=== PATIENT | male | born 1940 | race African-American/Black ===

== ENCOUNTER 2016-04-10 10:08 | Inpatient (IN) | payer OTHER, BC ==
[2016-04-10 10:45] VITALS: BMI 31.7
--- NOTE | 2016-04-10 11:27 | PDOC ---
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 He reports itching of the wound and active discharge with foul smell he denies any pain to the wound or surrounding area. Patient was seen by Dr. Boateng for the abscess yesterday that was drained, but no I&D was performed. Patient was placed on Bactrim as of yesterday by Dr. Baoteng and was referred to a wound clinic. Patient presented to the wound clinic today and was referred to the ED because the wound was too deep. As per brother the patient had this abscess two years ago that was initially drained by Dr. Boateng and he has not followed up since. He notes that the wound has increased significantly in size over the past two years. His brother is visiting from [place] and noticed a foul smell in the house and realized that the smell was from the actively draining wound on patient's upper back. He denies fever, chills, nausea, vomiting, neck pain, numbness/tingling/ weakness. PCP - Dr. Boateng <Mayra Hedrick - Last Filed: 04/10/16 15:23> <Orestes Lora - Last Filed: 04/10/16 17:31> - General Chief Complaint: Wound Infection Stated Complaint: (WOUND CARE SENT) Time Seen by Provider: 04/10/16 11:09 Past History <Mayra Hedrick - Last Filed: 04/10/16 15:23> - Past Medical History Anemia: No Asthma: No Cancer: No Cardiac Disorders: No CVA: No COPD: No CHF: Yes Dementia: No Diabetes: Yes (NIDDM) Disorders: Yes (CHRONIC KIDNEY DISEASE) HTN: Yes Hypercholesterolemia: Yes Suicide Attempt (Hx): No Seizures: No Thyroid Disease: No - Psycho/Social/Smoking Cessation Hx Anxiety: No Suicidal Ideation: No Smoking History: Never smoked Have you smoked in the past 12 months: No Hx Alcohol Use: No Drug/Substance Use Hx: No Substance Use Type: None Hx Substance Use Treatment: No <GenoOrestes alston - Last Filed: 04/10/16 17:31> - Past Medical History Allergies/Adverse Reactions: Allergies Allergy/AdvReac Type Severity Reaction Status Date / Time No Known Allergies Allergy Verified 04/10/16 11:57 Home Medications: Ambulatory Orders Unobtainable [Unobtainable] 04/10/16 Review of Systems - Review of Systems Able to Perform ROS?: Yes Comments:: 04/10/16 15:23 CONSTITUTIONAL: No reported: Fever, Chills, Diaphoresis, Generalized Weakness, Malaise, Loss of Appetite HEENT: No reported: Rhinorrhea, Nasal Congestion, Throat Pain, Throat Swelling, Difficulty Swallowing, Mouth Swelling, Ear Pain, Eye Pain, Visual Changes CARDIOVASCULAR: No reported: Chest Pain, Syncope, Palpitations, Irregular Heart Rate, Lightheadedness, Peripheral Edema RESPIRATORY: No reported: Cough, Shortness of Breath, SOB with Exertion, Orthopnea, Wheezing , Stridor, Hemoptysis GASTROINTESTINAL: No reported: Abdominal pain, Abdominal Distension, Nausea, Vomiting, Diarrhea, Constipation, Melena, Hematochezia GENITOURINARY: No reported: Dysuria, Frequency, Urgency, Hesitancy, Flank Pain, Genital Pain MUSCULOSKELETAL: No reported: Myalgia, Arthralgia, Joint Swelling, Back pain, Neck Pain SKIN: Reported: abscess to left upper back with itching, foul smelling discharge No reported: Rash, Pallor HEMATOLOGIC/IMMUNOLOGIC: No reported: Easy Bleeding, Easy Bruising, Lymphadenopathy, Frequent infections ENDOCRINE: No reported: Unexplained Weight Gain, Unexplained Weight Loss, Heat Intolerance , Cold Intolerance NEUROLOGIC: No reported: Headache, Focal Weakness, Paresthesias, Vertigo, Lightheadedness, Unsteady Gait, Seizure, Mental Status Changes, Incontinence PSYCHIATRIC: No reported: Anxiety, Depression <Mayra Hedrick - Last Filed: 04/10/16 15:23> *Physical Exam - Vital Signs Last Vital Signs Temp Pulse Resp BP Pulse Ox 98.1 F 74 19 105/47 99 04/10/16 10:40 04/10/16 10:40 04/10/16 10:40 04/10/16 10:40 04/10/16 10:40 - Physical Exam Comments: 04/10/16 15:24 GENERAL: The patient is awake, alert, and fully oriented, Nontoxic - in no acute distress. HEAD: Normocephalic, atraumatic. EYES: extraocular movements intact, sclera anicteric, conjunctiva clear. ENT: Normal voice, Moist mucous membranes. NECK: Normal range of motion, No JVD LUNGS: Breath sounds equal, clear to auscultation bilaterally. No wheezes, no rhonchi, no rales. HEART: Regular rate and rhythm, normal S1 and S2 without murmur, rub or gallop. ABDOMEN: Soft, nontender, normoactive bowel sounds. No guarding, no rebound. No masses. No CVA tenderness EXTREMITIES: Normal range of motion, no edema. No clubbing or cyanosis. No cords , erythema, or tenderness. NEUROLOGICAL: No facial asymmetry, Normal speech, normal gait. PSYCH: Normal mood, normal affect. SKIN: Irregularly shaped, Firm inundated mass on left upper back, Measuring 17x20 cm with irregular margins, +skin breakdown over mass with some areas of necrosis, non tender to palption, slightly warm to palpation. mild surrounding erythema. Warm, Dry, normal turgor <Mayra Hedrick - Last Filed: 04/10/16 15:23> - Vital Signs Last Vital Signs Temp Pulse Resp BP Pulse Ox 98.1 F 74 19 105/47 99 04/10/16 10:40 04/10/16 10:40 04/10/16 10:40 04/10/16 10:40 04/10/16 10:40 <Orestes Lora - Last Filed: 04/10/16 17:31> Heart Score/ECG Review - ECG Impressions Comment:: 04/10/16 13:52 Twelve-lead EKG was performed and reviewed by me. There is normal sinus rhythm with a normal rate. Rate of 63 PVCs present Nonspecific intraventricular conduction delay T wave inversions in the lateral leads <Orestes Lora - Last Filed: 04/10/16 17:31> ED Treatment Course - LABORATORY CBC & Chemistry Diagram: 04/10/16 11:50 04/10/16 11:50 - ADDITIONAL ORDERS Additional order review: Laboratory Results 04/10/16 04/10/16 04/10/16 11:50 11:50 11:50 INR 2.41 H D Sodium 134 L Potassium 5.6 H D Chloride 100 Carbon Dioxide 22 Anion Gap 12 BUN 117 H* D Creatinine 5.1 H D Creat Clearance w eGFR 11.08 Random Glucose 107 H Calcium 9.0 Total Bilirubin 1.4 H D AST 12 L ALT 8 L D Alkaline Phosphatase 104 D Total Protein 6.4 Albumin 2.4 L Blood Type A POSITIVE Antibody Screen Negative 04/10/16 11:50 RBC 2.96 L MCV 88.8 MCHC 32.9 RDW 17.1 H D MPV 8.0 Neutrophils % 81.0 Lymphocytes % 2.0 L D Monocytes % 12.0 H - RADIOLOGY Radiology Studies Ordered: 04/10/16 15:13 EXAM#: CT/CHEST CT WITHOUT CONTRAST CT chest without contrast Comparison studies: April 02, 2006 CLINICAL HISTORY: Mass in left upper back which extends to the proximal upper extremity 3 mm thin axial sections completed with coronal and sagittal reformations, intravenous contrast is not administered. Emphysematous changes noted in the soft tissues posterior to the scapula without communication to the muscle or bursa which appears to be centered in the subcutaneous soft tissues and project lateral and posterior to the region of the axilla without definite involvement of the axilla. There is a large region of inflammatory collection noted which is seen to extend into the upper arm along the path of the musculature suspicious for abscess/inflammatory collection with extensive emphysematous component. Clinical correlation for abscess with gas producing organism. Correlate clinically with skin examination for infected sebaceous cyst or any recent skin procedure in the region. The lungs appear normal with no pneumothorax or pneumomediastinum and no inflammatory changes within the mediastinum or left axilla. This lesion is long extending for a length of at least 18 cm and appears to be superficial. There is no communication to the soft tissues or muscles of the back and no involvement of the upper abdomen posteriorly. The epicenter of the collection is in the region of the proximal arm. Sonogram correlation would BE helpful for localization and for needle guided aspiration for diagnosis and drainage depending on clinical extent. Phlegmonous-type collection is suspected in the subcutaneous fat with fluid matrix demonstrated with Hounsfield density 14 No mediastinal abnormalities with no ascites or acute changes in the upper abdomen with renal cysts observed. Hepatic cyst is seen. Review of the bones with no erosion or bony involvement IMPRESSION: Large phlegmonous collection with gas and fluid extending in the left posterior subcutaneous tissues predominantly along the posterior subcutaneous tissues of the left proximal arm extending superiorly to the posterior soft tissues of the back without extension to the bone, muscle or axilla. No suspicious contributory findings in the lungs or mediastinum identified. No bony involvement of the ribs or scapula seen. Reported By: Tony Vaca MD 04/10/[address] Lora - Medications Given in the ED: ED Medications Discontinued Medications Generic Name Dose Route Start Last Admin Trade Name Freq PRN Reason Stop Dose Admin Clindamycin Phosphate 50 mls @ 100 mls/hr 04/10/16 13:47 04/10/16 14:50 Cleocin 600 Mg Premix Ivpb - IVPB 04/10/16 14:16 100 mls/hr ONCE ONE Administration Torsemide 10 mg 04/10/16 13:15 04/10/16 14:09 Demadex - PO Not Given DAILY SISI <Mayra Hedrick - Last Filed: 04/10/16 15:23> - LABORATORY CBC & Chemistry Diagram: 04/10/16 11:50 04/10/16 11:50 <Orestes Lora - Last Filed: 04/10/16 17:31> Medical Decision Making - Medical Decision Making 04/10/16 11:43 76y M hx of hx of htn, hl, ckd, niddm, aflutter on eliquis send by wound care for evaluation of wound in the upper back x 2 years, was drained with pressure by dr. boateng by PMD and started on bactrim - pt denies any infectious complaints, and states it is more itchy than anything else. on exam pt has a large fluctuant mass on hte Left upper back extending to the inferior aspect of his left arm that is firm, mildly erythemadous with skin breakdown and areas of necrosis over the skin. suspect large abscess, spontnaoeously draining , ?possible malignancy will obtain CT chest to further dilinate margins will discuss with dr. boateng at disposition likely admission A portion of this note was documented by scribe services under my direction. I have reviewed the details of the note, within reason, and agree with the documentation with the following case summary and management plan written by me 04/10/16 13:51 labs rviewed noted for leukoctyosis to 30s acute on chronic renal failure awaiting CT chest case d/w dr. jenkins and dr. boston will start pt on clinda for presumed abscess aree with admission for further management Case discussed in detail with admitting physician including history, physical exam and ancillary studies. Admitting physician has assumed care for the patient, will follow all pending diagnostics and will complete the evaluation and treatment. 04/10/16 17:[address] spears on behalf of dr. boateng requests vanc and zosyn <Orestes Lora - Last Filed: 04/10/16 17:31> *DC/Admit/Observation/Transfer - Attestations Scribe Attestion: 04/10/16 15:24 Documentation prepared by ANDREINA Prince, acting as medical records custodian for Orestes Lora MD. <Mayra Hedrick - Last Filed: 04/10/16 15:23> - Discharge Dispostion Admit: Yes <Orestes Lora - Last Filed: 04/10/16 17:31> Diagnosis at time of Disposition: Abscess, Acute on chronic renal failure Leukocytosis Qualifiers: Leukocytosis type: unspecified Qualified Code(s): D72.829 - Elevated white blood cell count, unspecified - Discharge Dispostion Condition at time of disposition: Stable - Referrals
[2016-04-10 12:00] LABS: MCH 29.2 pg (25.7-33.7); MCHC 32.9 g/dl (32.0-35.9); MEAN CELL VOLUME 88.8 fl (80-96); PLATELET COUNT 200 K/MM3 (134-434); RDW 17.1 % (11.9-15.9)
[2016-04-10 12:09] LABS: WHITE BLOOD COUNT 32.8 K/mm3 (4.0-10.0)
[2016-04-10 12:14] LABS: INR 2.41 (0.82-1.09)
[2016-04-10 12:36] LABS: ALBUMIN 2.4 g/dl (3.4-5.0)
[2016-04-10 12:39] LABS: BILIRUBIN,TOTAL 1.4 mg/dL (0.2-1.0); CREATININE 5.1 mg/dL (0.7-1.3); TOT PROT 6.4 g/dl (6.4-8.2)
[2016-04-10] MEDS ORDERED: ALBUTEROL SO4 2.5/IPRATROPIUM 0.5 INH SOL 3 ML VIAL.NEB. NEB PRN (13:13)
[2016-04-10] MEDS ORDERED: ACETAMINOPHEN 325 MG TABLET (FP) PO PRN (13:13)
[2016-04-10] MEDS ORDERED: TORSEMIDE 10 MG TABLET PO SCH (13:15)
[2016-04-10] MEDS ORDERED: POTASSIUM CHLORIDE TABS 20 MEQ TABLET.ER (FP) PO SCH (13:15)
[2016-04-10] MEDS ORDERED: CLINDAMYCIN 600MG PREMIX IVPB 50 ML IVPB ONE ×2 (13:47→14:03)
[2016-04-10] MEDS ORDERED: POTASSIUM CHLORIDE TABS 20 MEQ TABLET.ER (FP) PO ONE (14:03)
--- NOTE | 2016-04-10 14:16 | EKG ---
Test Reason : Blood Pressure : / mmHG Vent. Rate : 063 BPM Atrial Rate : 063 BPM P-R Int : 208 ms QRS Dur : 122 ms QT Int : 432 ms P-R-T Axes : 106 -10 117 degrees QTc Int : 442 ms SINUS RHYTHM WITH OCCASIONAL PREMATURE VENTRICULAR COMPLEXES NON-SPECIFIC INTRA-VENTRICULAR CONDUCTION DELAY ABNORMAL ECG WHEN COMPARED WITH ECG OF 26-MAY-2015 09:13, PREMATURE VENTRICULAR COMPLEXES ARE NOW PRESENT Confirmed by ANDRADE MOSQUERA, ISABELLA ([id number]) on 04/10/2016 2:16:02 PM Referred By: Confirmed By:ISABELLA ZAFAR MD
[2016-04-10] MEDS ORDERED: PHYTONADIONE 10 MG/1 ML AMP IM ONE (16:21)
[2016-04-10] MEDS: SODIUM CHLORIDE 1,000 ML IV SCH ×2 (17:00→19:53)
--- NOTE | 2016-04-10 17:19 | CONSULT ---
Consultation: REQUESTING PROVIDER:General surgery-Dr. Walker CONSULT REQUEST: We have been asked to surgically evaluate this patient for left shoulder/back I&D. HISTORY OF PRESENT ILLNESS:The patient is a 76 yo male who presents for large abscess on his shoulder. He is a poor historian and was difficult to obtain an accurate medical history. He was seen yesterday by his primary care physician Dr. Davis and had a local I&D done then was sent to the hospital for further evaluation. The patient takes Eloquis and his last dose was this am. As per his medical doctor he also takes plavix and has been hospitalized for heart failure on several accounts. He denies any SOB/CP, no abd pain. No fevers and has pain in his left shoulder. PMHX: CHF, Afib PSHX: denies REVIEW OF SYSTEMS: CONSTITUTIONAL: Absent: fever, chills. CARDIOVASCULAR: Absent: chest pain, syncope, palpitations. RESPIRATORY: Absent: cough, shortness of breath. GASTROINTESTINAL: Absent: abdominal pain, abdominal distension, nausea, vomiting. : Absent: dysuria, frequency, hematuria. Makes urine daily. PHYSICAL EXAMINATION Vital Signs Temperature 98.1 F 04/10/16 10:40 Pulse Rate 74 04/10/16 10:40 Respiratory Rate 19 04/10/16 10:40 Blood Pressure 105/47 04/10/16 10:40 O2 Sat by Pulse Oximetry (%) 99 04/10/16 10:40 GENERAL: Awake, alert. HEAD: Normal with no signs of trauma. EYES: Pupils equal, round and reactive to light, sclera anicteric, conjunctiva clear. NECK: Normal range of motion, supple without lymphadenopathy, JVD, or masses. LUNGS: Breath sounds equal, clear to auscultation bilaterally. No wheezes, and no crackles. No accessory muscle use. HEART: Regular rhythm, irregular rate ABDOMEN: Soft, nontender, not distended. BACK: large abscess approximately 20 x 20cm with draining purulent material, necrotic skin/foul odor and erythema. MUSCULOSKELETAL: Normal range of motion at all joints. No bony deformities or tenderness. No CVA tenderness. UPPER EXTREMITIES: 2+ pulses, warm, well-perfused. No cyanosis. Cap refill <2 seconds. No peripheral edema. LOWER EXTREMITIES: 2+ pulses, warm, well-perfused. No calf tenderness. mild pitting edema +1 NEUROLOGICAL: Normal speech, gait not observed. PSYCH: Cooperative. Good eye contact. Appropriate mood and affect. SKIN: Warm, dry, normal turgor, no rashes or lesions noted. LABS: CBC, BMP 04/10/16 11:50 04/10/16 11:50 INR, PTT INR 2.41 (0.82-1.09) H D 04/10/16 11:50 CT scan chest- emphysematous changes posterior to scapula with inflammation/ abscess Bedside I&D completed by Dr. Walker after informed consent and time out was completed. culture sent. <Ashleigh Bartholomew - Last Filed: 04/10/16 17:42> Consultation: REQUESTING PROVIDER: CONSULT REQUEST: We have been asked to surgically evaluate this patient for ( specify). HISTORY OF PRESENT ILLNESS: REVIEW OF SYSTEMS: CONSTITUTIONAL: Absent: fever, chills, diaphoresis, generalized weakness, malaise, loss of appetite, weight change CARDIOVASCULAR: Absent: chest pain, syncope, palpitations, irregular heart rate, lightheadedness , peripheral edema RESPIRATORY: Absent: cough, shortness of breath, dyspnea with exertion, orthopnea, wheezing, stridor, hemoptysis GASTROINTESTINAL: Absent: abdominal pain, abdominal distension, nausea, vomiting, diarrhea, constipation, melena, hematochezia GENITOURINARY: Absent: dysuria, frequency, urgency, hesitancy, hematuria, flank pain, genital pain MUSCULOSKELETAL: Absent: myalgia, arthralgia, joint swelling, back pain, neck pain SKIN: Absent: rash, itching, pallor HEMATOLOGIC/IMMUNOLOGIC: Absent: easy bleeding, easy bruising, lymphadenopathy, frequent infections NEUROLOGIC: Absent: headache, focal weakness or paresthesias, dizziness, unsteady gait, seizure, mental status changes, bladder or bowel incontinence PSYCHIATRIC: Absent: anxiety, depression, suicidal or homicidal ideation, hallucinations. PHYSICAL EXAMINATION Vital Signs Temperature 98.1 F 04/10/16 10:40 Pulse Rate 74 04/10/16 10:40 Respiratory Rate 19 04/10/16 10:40 Blood Pressure 105/47 04/10/16 10:40 O2 Sat by Pulse Oximetry (%) 99 04/10/16 10:40 GENERAL: Awake, alert, and fully oriented, in no acute distress. HEAD: Normal with no signs of trauma. EYES: Pupils equal, round and reactive to light, sclera anicteric, conjunctiva clear. NECK: Normal range of motion, supple without lymphadenopathy, JVD, or masses. LUNGS: Breath sounds equal, clear to auscultation bilaterally. No wheezes, and no crackles. No accessory muscle use. HEART: Regular rate and rhythm, normal S1 and S2 without murmur, rub or gallop. ABDOMEN: Soft, nontender, not distended, normoactive bowel sounds, no guarding, no rebound, no masses. No hepatomegaly or splenomegaly. MUSCULOSKELETAL: Normal range of motion at all joints. No bony deformities or tenderness. No CVA tenderness. UPPER EXTREMITIES: 2+ pulses, warm, well-perfused. No cyanosis. Cap refill <2 seconds. No peripheral edema. LOWER EXTREMITIES: 2+ pulses, warm, well-perfused. No calf tenderness. No peripheral edema. NEUROLOGICAL: Normal speech, gait not observed. PSYCH: Cooperative. Good eye contact. Appropriate mood and affect. SKIN: Warm, dry, normal turgor, no rashes or lesions noted. LABS: Laboratory Results - last 24 hr 04/10/16 04/10/16 19:00 19:00 WBC 23.4 H RBC 2.98 L Hgb 8.6 L Hct 26.7 L MCV 89.5 MCHC 32.2 RDW 18.0 H Plt Count 217 MPV 8.7 ESR 40 H Sodium 134 L Potassium 5.8 H Chloride 102 Carbon Dioxide 20 L Anion Gap 12 BUN 113 H* Creatinine 4.7 H Random Glucose 181 H D Calcium 8.4 L Agree Large left back/scapular/shoulder abscess with necrosis causing sepsis Acute on chronic renal failure Leukocytosis Patient consented Incision and drainage of abscess performed at the beside Copious amounts of foul smelling purulent discharge noted Loculations broken with blunt dissection Culture taken Wound packed with Kerlex dressing and covered with 4x4 and abd pad Tolerated the procedure well Continue IV antibiotics- ID consult Wound care Will need further debridement of necrotic tissue and washout with VAC placement in the OR in the am Renal consult for acute on chronic kidney insufficiency Given FFP and vitamin K for elevated INR Thank you <Timi Walker - Last Filed: 04/10/16 21:43> Problem List - Problems (1) Abscess Assessment/Plan: s/p I&D at the bedside(by Dr. Walker) to decompress the abscess until the patient can be cleared for the OR. Will plan on OR tomorrow for further debridment/ pulse irrigation and wound vac placment. ID consult for IV abx, cleocin given in the ER. S/w maicol Tee and claudia ordered Pt with evidence of muti symtemsfailure. BUN/CREtT elevated with elevation of INR. IF INR remains elevated may require FFP prior to procedure. INR lab placed for the am. Code(s): L02.91 - CUTANEOUS ABSCESS, UNSPECIFIED (2) Acute on chronic renal failure Assessment/Plan: Pt with acute on chronic renal failure, spoke with renal for a consult. Code(s): N17.9 - ACUTE KIDNEY FAILURE, UNSPECIFIED N18.9 - CHRONIC KIDNEY DISEASE, UNSPECIFIED <Ashleigh Bartholomew - Last Filed: 04/10/16 17:42> Visit type - Case Type Case Type: ED Admission - Emergency Emergency Visit: Yes ED Registration Date: 04/10/16 Care time: The patient presented to the Emergency Department on the above date and was hospitalized for further evaluation of their emergent condition. - New patient This patient is new to me today: Yes Date on this admission: 04/10/16 - Critical Care Critical Care patient: Yes Total Critical Care Time: 30 Critical Care Statement: The care of this patient involved high complexity decision making to prevent further life threatening deterioration of the patient 's condition and/or to evalute & treat vital organ system(s) failure or risk of failure. <Ashleigh Bartholomew - Last Filed: 04/10/16 17:42>
[2016-04-10] MEDS ORDERED: VANCOMYCIN 1,000 MG in DEXTROSE 5%-WATER - 250 ML IVPB ONE (17:30)
[2016-04-10] MEDS ORDERED: PIPERACILLIN/TAZOB 4.5 GM/100 ML PRE-DOCKED IVPB ONE (17:30)
[2016-04-10] MEDS ORDERED: VANCOMYCIN 1,500 MG in DEXTROSE 5%-WATER - 500 ML IVPB ONE (17:37)
--- NOTE | 2016-04-10 17:46 | PROC ---
[id number] Consent on Chart: Yes Betadine cleansed: Yes Anesthesia: other (none) Blade Size: 10 Drainage: 100ml Irrigated with Normal Saline: Yes Iodinated Packin in (kerlix) Plain packing: No Sterile Dressing Applied: Yes - Remarks Remarks: consent was obtained and a bedside I&D was completed by Dr. Walker, 100ml purulent material was expressed and the wound was packed with a kerlix. dry dressing applied. Culture taken <Timi Walker - Last Filed: 04/10/16 21:45> Procedure Note Procedure: Agree Incision and drainage of large necrotic abscess of left back/shoulder/scapula causing sepsis Copious foul smelling drainage noted Culture taken Wound packed Tolerated the procedure well
[2016-04-10 18:04] LABS: ALBUMIN 2.4 g/dl (3.4-5.0); BILIRUBIN,TOTAL 1.6 mg/dL (0.2-1.0); CALCIUM 9.2 mg/dL (8.5-10.1); CREATININE 4.9 mg/dL (0.7-1.3); TOT PROT 6.6 g/dl (6.4-8.2)
[2016-04-10] MEDS ORDERED: PIPERACILLIN/TAZOB 4.5 GM 100 ML IVPB ONE (18:53)
[2016-04-10] MEDS ORDERED: VANCOMYCIN 1 GRAM (PRE-DOCKED) 250 ML IVPB ONE (18:53)
--- NOTE | 2016-04-10 18:53 | CONSULT ---
Consult Consult Specialty:: Nephrology Reason for Consultation:: CASE and hyperkalemia - History of Present Illness Chief Complaint: sent in for left upper back infection History of Present Illness: Pt is a 76 year old male with history of COPD, HTN, CKD, Chol, hypothyroidism, CHF, and DM who was brought to the ER for a back ulcer. The ulcer has wound drainage that smells foul. He was put on bactrim for the wound. He was found to be in acute renal failure and to be hyperkalemic. He is awake and alert. He had an I and D done at bedside in the ER. He denies shortness of breath. He is on lasix and potassium supplements at home. He denies chest pain or palpitations. - History Source History Provided By: Patient, Medical Record - Past Medical History Cardio/Vascular: Yes: CHF, HTN, Other (flutter) Pulmonary: Yes: COPD Gastrointestinal: Yes: Crohn's Disease Renal/: Yes: Renal Inusuff Endocrine: Yes: Diabetes Mellitus Additional Medical History: glaucoma - Alcohol/Substance Use Hx Alcohol Use: No - Smoking History Smoking history: Never smoked Have you smoked in the past 12 months: No - Social History Occupation: worked for the [employer] Home Medications - Allergies Allergies/Adverse Reactions: Allergies Allergy/AdvReac Type Severity Reaction Status Date / Time No Known Allergies Allergy Verified 04/10/16 11:57 - Home Medications Home Medications: Ambulatory Orders Unobtainable [Unobtainable] 04/10/16 Family Disease History - Family Disease History Family History: Denies Family Disease History: Diabetes: Father Review of Systems - Review of Systems Constitutional: denies: Chills, Fever Eyes: reports: No Symptoms HENT: reports: No Symptoms Neck: reports: No Symptoms Cardiovascular: reports: No Symptoms Respiratory: reports: No Symptoms Gastrointestinal: reports: No Symptoms Genitourinary: reports: No Symptoms Musculoskeletal: reports: Muscle Weakness Integumentary: reports: Other (back ulcer) Hematology/Lymphatic: reports: No Symptoms Physical Exam Vital Signs: Vital Signs Temperature 98.1 F 04/10/16 10:40 Pulse Rate 74 04/10/16 10:40 Respiratory Rate 19 04/10/16 10:40 Blood Pressure 105/47 04/10/16 10:40 O2 Sat by Pulse Oximetry (%) 99 04/10/16 10:40 Constitutional: Yes: Calm Eyes: Yes: Conjunctiva Clear HENT: Yes: Atraumatic Cardiovascular: Yes: Pulse Irregular, S1, S2 Respiratory: Yes: On Nasal O2 Gastrointestinal: Yes: Soft, Abdomen, Obese Musculoskeletal: Yes: Other (back ulcer with dressing in place) Edema: Yes Edema: LLE: Trace, RLE: Trace Neurological: Yes: Oriented Psychiatric: Yes: Oriented Labs: Laboratory Tests 05/28/15 05/29/15 05/30/15 05:10 05:10 05:10 WBC Hgb Plt Count INR Sodium Potassium Chloride Carbon Dioxide Anion Gap BUN Creatinine 2.6 H 2.4 H 2.3 H 05/31/15 06/01/15 04/10/16 06:00 07:11 11:50 WBC 32.8 H* D Hgb 8.6 L Plt Count 200 D INR Sodium Potassium Chloride Carbon Dioxide Anion Gap BUN Creatinine 2.5 H 2.4 H 04/10/16 04/10/16 04/10/16 11:50 11:50 13:12 WBC Hgb Plt Count INR 2.41 H D Sodium 134 L 133 L Potassium 5.6 H D 5.9 H Chloride 100 100 Carbon Dioxide 22 19 L Anion Gap 12 14 BUN 117 H* D 115 H* Creatinine 5.1 H D 4.9 H Imaging - Results Cat Scan: Report Reviewed Problem List - Problems (1) Abscess Code(s): L02.91 - CUTANEOUS ABSCESS, UNSPECIFIED (2) Acute on chronic renal failure Code(s): N17.9 - ACUTE KIDNEY FAILURE, UNSPECIFIED N18.9 - CHRONIC KIDNEY DISEASE, UNSPECIFIED (3) Leukocytosis Code(s): D72.829 - ELEVATED WHITE BLOOD CELL COUNT, UNSPECIFIED Qualifiers: Leukocytosis type: unspecified Qualified Code(s): D72.829 - Elevated white blood cell count, unspecified (4) Anemia Code(s): D64.9 - ANEMIA, UNSPECIFIED Qualifiers: Other causes of anemia: acute posthemorrhagic (5) Congestive heart failure (CHF) Code(s): I50.9 - HEART FAILURE, UNSPECIFIED Qualifiers: Congestive heart failure type: systolic Congestive heart failure chronicity: chronic Qualified Code(s): I50.22 - Chronic systolic (congestive ) heart failure (6) DMII (diabetes mellitus, type 2) Code(s): E11.9 - TYPE 2 DIABETES MELLITUS WITHOUT COMPLICATIONS Qualifiers: Diabetes mellitus complication detail: with other kidney complication (7) HTN (hypertension) Code(s): I10 - ESSENTIAL (PRIMARY) HYPERTENSION (8) Hyperkalemia Code(s): E87.5 - HYPERKALEMIA Assessment/Plan Current Medications Generic Name Dose Route Start Last Admin Trade Name Freq PRN Reason Stop Dose Admin Acetaminophen 650 mg 04/10/16 13:13 Tylenol - PO Q6H PRN FEVER OR PAIN Albuterol/Ipratropium 1 amp 04/10/16 13:13 Duoneb - NEB Q6H PRN SHORTNESS OF BREATH Amiodarone HCl 200 mg 04/11/16 10:00 Cordarone - PO DAILY [facility] Brimonidine Tartrate 1 drop 04/10/16 22:00 Alphagan 0.2% - OD BID [facility] Budesonide/Formoterol Fumarate 2 puff 04/10/16 22:00 Symbicort 80/4.5mcg - IH BID [facility] Bumetanide 2 mg 04/10/16 18:00 Bumex - PO BID@0600,1800 [facility] Clonidine 0.2 mg 04/11/16 10:00 Catapres - PO DAILY [facility] Folic Acid 1 mg 04/11/16 10:00 Folic Acid - PO DAILY [facility] Hydralazine HCl 25 mg 04/10/16 22:00 Apresoline - PO BID [facility] Vancomycin HCl 1,500 mg/ 500 mls @ 250 mls/hr 04/10/16 17:37 Dextrose IVPB 04/10/16 19:36 ONCE ONE Insulin Aspart 1 vial 04/10/16 16:30 Novolog Vial Sliding Scale - SQ ACHS [facility] Protocol Isosorbide Dinitrate 20 mg 04/10/16 22:00 Isordil - PO BID [facility] Levothyroxine Sodium 50 mcg 04/11/16 07:00 Synthroid - PO DAILY@0700 [facility] Metoprolol Succinate 50 mg 04/11/16 10:00 Toprol Xl - PO DAILY [facility] Potassium Chloride 40 meq 04/10/16 13:15 04/10/16 14:50 K-Dur - PO 40 meq DAILY [facility] Administration Timolol Maleate 1 drop 04/10/16 22:00 Timoptic 0.5% OD BID [facility] Impression 1. CASE 2. hyperkalemia 3. cellulitis/abscess of back 4. CHF 5. hypothyroidism 6. hyperlipidemia 7. COPD 8. htn 9. sepsis Plan - please stop potassium supplements - will hold diuretics for now - bactrim can cause both elevated creatinine and potassium - will treat potassium medically - monitor on tele - check ecg - ID eval for abx coverage - monitor vanco levels - pt says he was taking both torsemide and lasix, will not need to be on two loops - cont wound care to back
[2016-04-10] MEDS ORDERED: INSULIN REGULAR HUMAN 100 UNITS/ML *VIAL IVPUSH ONE (19:02)
[2016-04-10] MEDS ORDERED: DEXTROSE 50%-WATER 50 ML VIAL IVPUSH ONE (19:02)
[2016-04-10] MEDS ORDERED: CALCIUM GLUCONATE 10% - 1,000 MG/10 ML VIAL IVPB ONE (19:02)
[2016-04-10] MEDS ORDERED: SODIUM BICARBONATE 8.4% 50 MEQ/50 ML DISP.SYRIN IVPUSH ONE (19:04)
[2016-04-10] MEDS ORDERED: DEXTROSE 50%-WATER 50 ML DISP.SYRIN ONE (19:07)
[2016-04-10] MEDS ORDERED: INSULIN (NOVOLOG) ASPART 100 UNITS/ML 10ML VIAL ONE (19:08)
[2016-04-10] MEDS: INSULIN SLIDING SCALE (NOVOLOG) 1 VIAL SQ SCH ×2 (19:16→22:49)
[2016-04-10] MEDS: BUMETANIDE 1 MG TABLET PO SCH (19:19)
[2016-04-10] MEDS ORDERED: SODIUM BICARBONATE 8.4% - 50 ML ONE (19:21)
[2016-04-10] MEDS ORDERED: PHYTONADIONE 10 MG/1 ML AMP ONE (19:32)
[2016-04-10 19:35] LABS: MCH 28.8 pg (25.7-33.7); MCHC 32.2 g/dl (32.0-35.9); MEAN CELL VOLUME 89.5 fl (80-96); MEAN PLT VOLUME 8.7 fl (7.5-11.1); PLATELET COUNT 217 K/MM3 (134-434); WHITE BLOOD COUNT 23.4 K/mm3 (4.0-10.0)
[2016-04-10 20:03] LABS: CALCIUM 8.4 mg/dL (8.5-10.1); CREATININE 4.7 mg/dL (0.7-1.3)
[2016-04-10] MEDS ORDERED: ALBUTEROL SO4 0.083% IH SOL 2.5 MG/3 ML VIAL.NEB. NEB ONE (20:17)
[2016-04-10] MEDS: ALBUTEROL SO4 0.083% IH SOL 2.5 MG/3 ML VIAL.NEB. NEB SCH (20:20)
--- NOTE | 2016-04-10 21:00 | HP ---
Admitting History and Physical - Primary Care Physician PCP: Davin Dee - Admission Chief Complaint: WORSENING ABSCESS ON BACK History of Present Illness: 76 Y/O MALE WAS SEEN IN MY OFFICE YESTERDAY AND HAD A 5X5CM LEFT UPPER THORACIC ABSCESS DRAINED AND CULTURES , STARTED ON BACTRIM DS BID YESTERDAY AND SENT TO WOUND CLINIC TODAY. AT THE WOUND CLINIC PATIENT FELT ILL AND WEAK, WAS SENT TO ED FOUND IN ACUTE RENAL FAILURE, LEUKOCYTOSIS, FEVER STARTED ON IV ABX, IVF, WITH RENAL AND SURGERY WORKUP. HISTORY OF AFIB, HTN, DM, OBESITY, CHF SYSTOLIC FAILURE, CRI. History Source: Patient - Past Medical History Cardiovascular: Yes: CHF, HTN, Other (flutter) Pulmonary: Yes: COPD Gastrointestinal: Yes: Crohn's Disease Renal/: Yes: Renal Inusuff Endocrine: Yes: Diabetes Mellitus - Smoking History Smoking history: Never smoked Have you smoked in the past 12 months: No - Alcohol/Substance Use Hx Alcohol Use: No - Social History Occupation: worked for the [employer] Home Medications - Allergies Allergies/Adverse Reactions: Allergies Allergy/AdvReac Type Severity Reaction Status Date / Time No Known Allergies Allergy Verified 04/10/16 11:57 - Home Medications Home Medications: Ambulatory Orders Unobtainable [Unobtainable] 04/10/16 Family Disease History - Family Disease History Family Disease History: Diabetes: Father Review of Systems - Review of Systems Constitutional: reports: Weakness Eyes: reports: No Symptoms HENT: reports: No Symptoms Neck: reports: No Symptoms Cardiovascular: reports: Palpitations Respiratory: reports: No Symptoms Gastrointestinal: reports: No Symptoms Genitourinary: reports: No Symptoms Musculoskeletal: reports: Extremity Pain Integumentary: reports: Erythema, Lump, Wound Neurological: reports: No Symptoms, Weakness Endocrine: reports: No Symptoms Physical Examination Vital Signs: Vital Signs Temperature 98.1 F 04/10/16 10:40 Pulse Rate 74 04/10/16 10:40 Respiratory Rate 19 04/10/16 10:40 Blood Pressure 105/47 04/10/16 10:40 O2 Sat by Pulse Oximetry (%) 99 04/10/16 10:40 Constitutional: Yes: Diaphoresis, Moderate Distress, Obese Eyes: Yes: WNL HENT: Yes: WNL Neck: Yes: WNL Cardiovascular: Yes: Pulse Irregular Respiratory: Yes: WNL Gastrointestinal: Yes: WNL Musculoskeletal: Yes: Back Pain, Muscle Weakness Extremities: Yes: WNL Edema: Yes Edema: LLE: 2+, RLE: 2+ Peripheral Pulses WNL: Yes Integumentary: Yes: Pressure Ulcer Wound/Incision: Yes: Open to air (5X5 ABSCESS WITH YELLOW PURELENT DISCHARGE WITH FOUL ODOR) Neurological: Yes: WNL ...Motor Strength: WNL Psychiatric: Yes: WNL Labs: CBC, BMP 04/10/16 19:00 04/10/16 19:00 Problem List - Problems (1) Abscess Code(s): L02.91 - CUTANEOUS ABSCESS, UNSPECIFIED (2) Acute on chronic renal failure Code(s): N17.9 - ACUTE KIDNEY FAILURE, UNSPECIFIED N18.9 - CHRONIC KIDNEY DISEASE, UNSPECIFIED (3) Leukocytosis Code(s): D72.829 - ELEVATED WHITE BLOOD CELL COUNT, UNSPECIFIED Qualifiers: Leukocytosis type: unspecified Qualified Code(s): D72.829 - Elevated white blood cell count, unspecified (4) Anemia Code(s): D64.9 - ANEMIA, UNSPECIFIED Qualifiers: Other causes of anemia: acute posthemorrhagic (5) Anticoagulated by anticoagulation treatment Code(s): Z79.01 - MCC (CURRENT) USE OF ANTICOAGULANTS (6) Atrial flutter Code(s): I48.92 - UNSPECIFIED ATRIAL FLUTTER (7) CKD (chronic kidney disease), stage II Code(s): N18.2 - CHRONIC KIDNEY DISEASE, STAGE 2 (MILD) (8) Congestive heart failure (CHF) Code(s): I50.9 - HEART FAILURE, UNSPECIFIED Qualifiers: Congestive heart failure type: systolic Congestive heart failure chronicity: chronic Qualified Code(s): I50.22 - Chronic systolic (congestive ) heart failure (9) HTN (hypertension) Code(s): I10 - ESSENTIAL (PRIMARY) HYPERTENSION Qualifiers: Hypertension type: essential hypertension Qualified Code(s): I10 - Essential (primary) hypertension (10) Hyperkalemia Code(s): E87.5 - HYPERKALEMIA (11) Paroxysmal atrial flutter Code(s): I48.92 - UNSPECIFIED ATRIAL FLUTTER (12) Unsteady gait Code(s): R26.81 - UNSTEADINESS ON FEET Assessment/Plan NEPHROLOGY WORKUP, STOP DIURETICS AND KCL IVF IV ABX WOUND CARE SURGERY EVAL FOR I AND D AC ON ELIQUIS
[2016-04-10 21:33] LABS: ERYTHROCYTE SEDIMENTATION RATE 40 mm/hr (0-20)
[2016-04-10] MEDS ORDERED: ISOSORBIDE DINITRATE 20 MG TABLET (FP) PO SCH (22:00)
[2016-04-10] MEDS ORDERED: APIXABAN 5 MG TABLET PO SCH (22:00)
[2016-04-10] MEDS ORDERED: TIMOLOL 0.5% OPHTHALMIC SOL 5 ML BOTTLE OD SCH (22:00)
[2016-04-10 22:14] LABS: URINE APPEARANCE CLEAR; URINE BILIRUBIN NEGATIVE (NEGATIVE); URINE BLOOD NEGATIVE (NEGATIVE); URINE COLOR LTYELLOW; URINE GLUCOSE (UA) NEGATIVE (NEGATIVE); URINE KETONE NEGATIVE (NEGATIVE); URINE LEUK ESTERASE NEGATIVE (NEGATIVE); URINE NITRITE NEGATIVE (NEGATIVE); URINE PROTEIN NEGATIVE (NEGATIVE); URINE UROBILINOGEN NEGATIVE E.U./dl (0.2-1.0)
[2016-04-10 22:15] LABS: URINE CREATININE 36.2 mg/dL
[2016-04-10 22:58] LABS: BASOPHIL 0.9 % (0-2.0); EOSINOPHIL 0.1 % (0-4.5); MCH 28.8 pg (25.7-33.7); MEAN CELL VOLUME 90.1 fl (80-96); MEAN PLT VOLUME 8.5 fl (7.5-11.1); NEUTROPHILS 87.1 % (42.8-82.8); PLATELET COUNT 215 K/MM3 (134-434); WHITE BLOOD COUNT 29.3 K/mm3 (4.0-10.0)
[2016-04-11] MEDS: BRIMONIDINE TARTRATE 0.2% OPHTHALMIC 5 ML BOTTLE OD SCH ×2 (00:04→14:00)
[2016-04-11] MEDS: BUDESONIDE/FORMETEROL FUMARATE 80/4.5 mcg INHALER IH SCH ×3 (00:05→22:13)
[2016-04-11] MEDS: hydrALAZINE HCL 25 MG TABLET (FP) PO SCH ×2 (00:05→09:02)
[2016-04-11 00:24] LABS: ALBUMIN 2.3 g/dl (3.4-5.0); BILIRUBIN,TOTAL 1.7 mg/dL (0.2-1.0); CALCIUM 9.1 mg/dL (8.5-10.1); CREATININE 4.8 mg/dL (0.7-1.3); TOT PROT 6.5 g/dl (6.4-8.2)
[2016-04-11] MEDS ORDERED: CLINDAMYCIN 600MG PREMIX IVPB 50 ML IVPB SCH (02:00)
[2016-04-11] MEDS ORDERED: CLINDAMYCIN 600MG PREMIX IVPB 50 ML IVPB ONE (03:55)
[2016-04-11 06:40] LABS: INR 1.91 (0.82-1.09); PROTHROMBIN TIME (PATIENT) 21.3 SEC (9.98-11.88)
[2016-04-11] MEDS: BUMETANIDE 1 MG TABLET PO SCH (06:42)
[2016-04-11 06:55] LABS: MCH 28.7 pg (25.7-33.7); MCHC 32.5 g/dl (32.0-35.9); MEAN CELL VOLUME 88.3 fl (80-96); MEAN PLT VOLUME 8.7 fl (7.5-11.1); PLATELET COUNT 231 K/MM3 (134-434); RDW 17.7 % (11.9-15.9); WHITE BLOOD COUNT 24.9 K/mm3 (4.0-10.0)
[2016-04-11] MEDS ORDERED: LEVOTHYROXINE NA 50 MCG TABLET (FP) PO SCH (07:00)
[2016-04-11 07:11] LABS: CALCIUM 8.8 mg/dL (8.5-10.1); CREATININE 4.8 mg/dL (0.7-1.3)
[2016-04-11] MEDS: INSULIN SLIDING SCALE (NOVOLOG) 1 VIAL SQ SCH ×4 (08:27→22:28)
--- NOTE | 2016-04-11 08:28 | PN ---
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, Physician Chief Complaint: ID Full note dictated - Current Medication List Current Medications: Active Medications Acetaminophen (Tylenol -) 650 mg PO Q6H PRN PRN Reason: FEVER OR PAIN Albuterol/Ipratropium (Duoneb -) 1 amp NEB Q6H PRN PRN Reason: SHORTNESS OF BREATH Amiodarone HCl (Cordarone -) 200 mg PO DAILY [facility] Brimonidine Tartrate (Alphagan 0.2% -) 1 drop OD BID [facility] Last Admin: 04/11/16 00:04 Dose: 1 drop Budesonide/Formoterol Fumarate (Symbicort 80/4.5mcg -) 2 puff IH BID [facility] Last Admin: 04/11/16 00:05 Dose: 2 puff Bumetanide (Bumex -) 2 mg PO BID@0600,1800 [facility] Last Admin: 04/11/16 06:42 Dose: 2 mg Clonidine (Catapres -) 0.2 mg PO DAILY [facility] Folic Acid (Folic Acid -) 1 mg PO DAILY [facility] Hydralazine HCl (Apresoline -) 25 mg PO BID [facility] Last Admin: 04/11/16 00:05 Dose: 25 mg Sodium Chloride (Normal Saline -) 1,000 mls @ 83 mls/hr IV ASDIR [facility] Last Admin: 04/10/16 17:00 Dose: 83 mls/hr Clindamycin Phosphate (Cleocin 600 Mg Premix Ivpb -) 50 mls @ 100 mls/hr IVPB Q8H-IV [facility] Last Admin: 04/11/16 04:05 Dose: 100 mls/hr Insulin Aspart (Novolog Vial Sliding Scale -) 1 vial SQ ACHS [facility] PRN Reason: Protocol Last Admin: 04/10/16 22:49 Dose: Not Given Isosorbide Dinitrate (Isordil -) 20 mg PO BID [facility] Levothyroxine Sodium (Synthroid -) 50 mcg PO DAILY@0700 [facility] Metoprolol Succinate (Toprol Xl -) 50 mg PO DAILY [facility] Timolol Maleate (Timoptic 0.5%) 1 drop OD BID [facility] - Objective Vital Signs: Vital Signs Temperature 98.1 F 04/10/16 10:40 Pulse Rate 72 04/11/16 03:51 Respiratory Rate 16 04/10/16 23:24 Blood Pressure 104/58 04/11/16 03:51 O2 Sat by Pulse Oximetry (%) 97 04/11/16 03:51 Extremities: Yes: Other (Large necrotic abscess left scapula fould smelling) Labs: CBC, BMP 04/11/16 05:40 04/11/16 05:40 INR, PTT INR 1.91 (0.82-1.09) H 04/11/16 05:40 Problem List - Problems (1) Abscess Code(s): L02.91 - CUTANEOUS ABSCESS, UNSPECIFIED (2) Leukocytosis Code(s): D72.829 - ELEVATED WHITE BLOOD CELL COUNT, UNSPECIFIED Qualifiers: Leukocytosis type: unspecified Qualified Code(s): D72.829 - Elevated white blood cell count, unspecified Assessment/Plan Microbiology 04/10/16 11:50 Back Gram Stain - Final Laboratory Tests 04/10/16 04/10/16 04/10/16 11:50 11:50 19:00 WBC 32.8 H* D Hct 26.2 L Plt Count 200 D ESR 40 H INR BUN 117 H* D Creatinine 5.1 H D 04/11/16 05:40 WBC Hct Plt Count ESR INR 1.91 H BUN Creatinine Assessment Foul smelling large necrotic abscess left shoulder blood draining but necrotic tissues present. Think about Strep Staph polymicrobial Plan Vancomycin 1.5 grs given one dose Zosyn 2.25 grs q8h and metronidazole CRP FOr the OR today Check Vanco level today Kris MOSQUERA
[2016-04-11] MEDS ORDERED: METRONIDAZOLE 500 MG PREMIXED 100 ML IVPB ONE (08:53)
[2016-04-11 09:51] LABS: POIKILOCYTOSIS 4+
[2016-04-11 09:52] LABS: ACANTHOCYTES 2+; ANISOCYTOSIS 2+; BURR CELLS 4+; FRAGMENTED CELL 2+; OVALOCYTES 2+; TOXIC GRANULATION 3+
[2016-04-11] MEDS ORDERED: METRONIDAZOLE 500 MG PREMIXED 100 ML IVPB SCH (10:00)
[2016-04-11] MEDS ORDERED: CLOPIDOGREL BISULFATE 75 MG TABLET (FP) PO SCH (10:00)
[2016-04-11] MEDS ORDERED: cloNIDine HCL 0.1 MG TABLET PO SCH (10:00)
[2016-04-11] MEDS ORDERED: METOPROLOL SUCCINATE 50 MG TAB.SR.24H (FP) PO SCH (10:00)
[2016-04-11] MEDS ORDERED: AMIODARONE HCL 200 MG TABLET (FP) PO SCH (10:00)
[2016-04-11] MEDS ORDERED: PIPERACILLIN/TAZOB 2.25 GM 50 ML IVPB SCH (10:00)
[2016-04-11] MEDS ORDERED: FOLIC ACID 1 MG TABLET (FP) PO SCH (10:00)
[2016-04-11] MEDS ORDERED: DEXTROSE 50%-WATER 50 ML VIAL IVPUSH ONE ×2 (11:15→14:59)
[2016-04-11] MEDS ORDERED: INSULIN REGULAR HUMAN 100 UNITS/ML *VIAL IVPUSH ONE ×2 (11:15→14:59)
[2016-04-11] MEDS ORDERED: SODIUM BICARBONATE 8.4% 50 MEQ/50 ML DISP.SYRIN IVPUSH ONE (11:16)
[2016-04-11] MEDS ORDERED: CALCIUM GLUCONATE 10% - 1,000 MG/10 ML VIAL IVPB ONE ×2 (11:16→14:59)
--- NOTE | 2016-04-11 11:23 | PN ---
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 (short form) - Note 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: S/P Incision and drainage of foul smelling necrotic left shoulder/back abscess causing sepsis, leukocytosis, and acute on chronic kidney injury On Antibiotics Seen by ID Afebrile HR 70 BP 100-120/50s Wound dressed- foul smelling, purulent discharge noted even through the dressing WBC improved- 24.9 H/H stable Cr 4.8 Patient consented for sharp excisional debridement of necrotic skin and subcutaneous tissue of left shoulder/back, pulse irrigation and washout of wound , VAC placement Risks and benefits explained Understands and agrees Will need ICU postop for further sepsis management
[2016-04-11] MEDS ORDERED: SODIUM CHLORIDE 1,000 ML IV SCH (11:30)
--- NOTE | 2016-04-11 11:40 | PN ---
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, Physician Chief Complaint: IN OR - Current Medication List Current Medications: Active Medications Acetaminophen (Tylenol -) 650 mg PO Q6H PRN PRN Reason: FEVER OR PAIN Albuterol/Ipratropium (Duoneb -) 1 amp NEB Q6H PRN PRN Reason: SHORTNESS OF BREATH Amiodarone HCl (Cordarone -) 200 mg PO DAILY [facility] Last Admin: 04/11/16 09:02 Dose: Not Given Brimonidine Tartrate (Alphagan 0.2% -) 1 drop OD BID [facility] Last Admin: 04/11/16 00:04 Dose: 1 drop Budesonide/Formoterol Fumarate (Symbicort 80/4.5mcg -) 2 puff IH BID [facility] Last Admin: 04/11/16 00:05 Dose: 2 puff Bumetanide (Bumex -) 2 mg PO BID@0600,1800 [facility] Last Admin: 04/11/16 06:42 Dose: 2 mg Clonidine (Catapres -) 0.2 mg PO DAILY [facility] Last Admin: 04/11/16 09:02 Dose: Not Given Folic Acid (Folic Acid -) 1 mg PO DAILY [facility] Last Admin: 04/11/16 09:02 Dose: Not Given Hydralazine HCl (Apresoline -) 25 mg PO BID [facility] Last Admin: 04/11/16 09:02 Dose: Not Given Sodium Chloride (Normal Saline -) 1,000 mls @ 83 mls/hr IV ASDIR [facility] Last Admin: 04/10/16 17:00 Dose: 83 mls/hr Piperacillin Sod/Tazobactam Sod (Zosyn 2.25gm Ivpb (Pre-Docked)) 50 mls @ 100 mls/hr IVPB Q8H-IV [facility] Metronidazole (Flagyl 500mg Premixed Ivpb -) 100 mls @ 100 mls/hr IVPB Q8H-IV [facility] Last Admin: 04/11/16 09:02 Dose: 100 mls/hr Sodium Chloride (Normal Saline -) 1,000 mls @ 100 mls/hr IV ASDIR [facility] Insulin Aspart (Novolog Vial Sliding Scale -) 1 vial SQ ACHS [facility] PRN Reason: Protocol Last Admin: 04/11/16 08:27 Dose: Not Given Isosorbide Dinitrate (Isordil -) 20 mg PO BID [facility] Levothyroxine Sodium (Synthroid -) 50 mcg PO DAILY@0700 [facility] Last Admin: 04/11/16 09:02 Dose: Not Given Metoprolol Succinate (Toprol Xl -) 50 mg PO DAILY [facility] Last Admin: 04/11/16 09:03 Dose: Not Given Timolol Maleate (Timoptic 0.5%) 1 drop OD BID [facility] - Objective Vital Signs: Vital Signs Temperature 98.1 F 04/10/16 10:40 Pulse Rate 72 04/11/16 03:51 Respiratory Rate 16 04/10/16 23:24 Blood Pressure 104/58 04/11/16 03:51 O2 Sat by Pulse Oximetry (%) 97 04/11/16 03:51 Cardiovascular: Yes: WNL Respiratory: Yes: WNL Gastrointestinal: Yes: WNL Wound/Incision: Yes: Draining Labs: CBC, BMP 04/11/16 05:40 04/11/16 05:40 INR, PTT INR 1.91 (0.82-1.09) H 04/11/16 05:40 Problem List - Problems (1) Abscess Code(s): L02.91 - CUTANEOUS ABSCESS, UNSPECIFIED (2) Acute on chronic renal failure Code(s): N17.9 - ACUTE KIDNEY FAILURE, UNSPECIFIED N18.9 - CHRONIC KIDNEY DISEASE, UNSPECIFIED (3) Anemia Code(s): D64.9 - ANEMIA, UNSPECIFIED Qualifiers: Other causes of anemia: chronic disease, kidney (4) Atrial flutter Code(s): I48.92 - UNSPECIFIED ATRIAL FLUTTER (5) CKD (chronic kidney disease), stage II Code(s): N18.2 - CHRONIC KIDNEY DISEASE, STAGE 2 (MILD) (6) Congestive heart failure (CHF) Code(s): I50.9 - HEART FAILURE, UNSPECIFIED Qualifiers: Congestive heart failure type: systolic Congestive heart failure chronicity: chronic Qualified Code(s): I50.22 - Chronic systolic (congestive ) heart failure (7) DMII (diabetes mellitus, type 2) Code(s): E11.9 - TYPE 2 DIABETES MELLITUS WITHOUT COMPLICATIONS Qualifiers: Diabetes mellitus complication detail: with other kidney complication Assessment/Plan (1) Abscess Code(s): L02.91 - CUTANEOUS ABSCESS, UNSPECIFIED (2) Acute on chronic renal failure Code(s): N17.9 - ACUTE KIDNEY FAILURE, UNSPECIFIED N18.9 - CHRONIC KIDNEY DISEASE, UNSPECIFIED (3) Leukocytosis Code(s): D72.829 - ELEVATED WHITE BLOOD CELL COUNT, UNSPECIFIED Qualifiers: Leukocytosis type: unspecified Qualified Code(s): D72.829 - Elevated white blood cell count, unspecified (4) Anemia Code(s): D64.9 - ANEMIA, UNSPECIFIED Qualifiers: Other causes of anemia: acute posthemorrhagic (5) Anticoagulated by anticoagulation treatment Code(s): Z79.01 - [employer] (CURRENT) USE OF ANTICOAGULANTS (6) Atrial flutter Code(s): I48.92 - UNSPECIFIED ATRIAL FLUTTER (7) CKD (chronic kidney disease), stage II Code(s): N18.2 - CHRONIC KIDNEY DISEASE, STAGE 2 (MILD) (8) Congestive heart failure (CHF) Code(s): I50.9 - HEART FAILURE, UNSPECIFIED Qualifiers: Congestive heart failure type: systolic Congestive heart failure chronicity: chronic Qualified Code(s): I50.22 - Chronic systolic (congestive ) heart failure (9) HTN (hypertension) Code(s): I10 - ESSENTIAL (PRIMARY) HYPERTENSION Qualifiers: Hypertension type: essential hypertension Qualified Code(s): I10 - Essential (primary) hypertension (10) Hyperkalemia Code(s): E87.5 - HYPERKALEMIA (11) Paroxysmal atrial flutter Code(s): I48.92 - UNSPECIFIED ATRIAL FLUTTER (12) Unsteady gait Code(s): R26.81 - UNSTEADINESS ON FEET Assessment/Plan NEPHROLOGY WORKUP IVF IV ABX WOUND CARE SURGERY EVAL FOR I AND D -> WILL NEED ICU S/P I&D AC ON BARB AVALOS
--- NOTE | 2016-04-11 12:18 | OP ---
Operative Note - Note: Operative Date: 04/11/16 Pre-Operative Diagnosis: Sepsis due to large necrotic left back/shoulder abscess with necrotic skin and subcutaneous tissue Operation: Sharp excisional debridement of left back/shoulder skin and subcutaneous tissue, pulse irrigation and washout, VAC placement Findings: Necrotic abscess cavity with necrotic tissue and foul smelling drainage Cavity approximately 12cmx 10cm x 3cm Post-Operative Diagnosis: Same as Pre-op Surgeon: Timi Walker Anesthesia: MAC Specimens Removed: Necrotic skin and subcutaneous tissue Estimated Blood Loss (mls): 10 Drains & Tubes with Location: VAC Operative Report Dictated: Yes
[2016-04-11] MEDS ORDERED: ALBUTEROL SO4 2.5/IPRATROPIUM 0.5 INH SOL 3 ML VIAL.NEB. NEB PRN (14:19)
[2016-04-11] MEDS: SODIUM CHLORIDE 1,000 ML IV SCH ×2 (14:20)
--- NOTE | 2016-04-11 14:20 | PN ---
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, Physician History of Present Illness: Pt seen and examined at bedside. He is awake and alert. He denies shortness of breath. - Current Medication List Current Medications: Active Medications Acetaminophen (Tylenol -) 650 mg PO Q6H PRN PRN Reason: FEVER OR PAIN Albuterol/Ipratropium (Duoneb -) 1 amp NEB Q6H PRN PRN Reason: SHORTNESS OF BREATH Amiodarone HCl (Cordarone -) 200 mg PO DAILY [facility] Last Admin: 04/11/16 09:02 Dose: Not Given Brimonidine Tartrate (Alphagan 0.2% -) 1 drop OD BID [facility] Last Admin: 04/11/16 00:04 Dose: 1 drop Budesonide/Formoterol Fumarate (Symbicort 80/4.5mcg -) 2 puff IH BID [facility] Last Admin: 04/11/16 00:05 Dose: 2 puff Bumetanide (Bumex -) 2 mg PO BID@0600,1800 [facility] Last Admin: 04/11/16 06:42 Dose: 2 mg Clonidine (Catapres -) 0.2 mg PO DAILY [facility] Last Admin: 04/11/16 09:02 Dose: Not Given Folic Acid (Folic Acid -) 1 mg PO DAILY [facility] Last Admin: 04/11/16 09:02 Dose: Not Given Hydralazine HCl (Apresoline -) 25 mg PO BID [facility] Last Admin: 04/11/16 09:02 Dose: Not Given Sodium Chloride (Normal Saline -) 1,000 mls @ 83 mls/hr IV ASDIR [facility] Last Admin: 04/10/16 17:00 Dose: 83 mls/hr Piperacillin Sod/Tazobactam Sod (Zosyn 2.25gm Ivpb (Pre-Docked)) 50 mls @ 100 mls/hr IVPB Q8H-IV [facility] Last Admin: 04/11/16 11:00 Dose: 100 mls/hr Metronidazole (Flagyl 500mg Premixed Ivpb -) 100 mls @ 100 mls/hr IVPB Q8H-IV [facility] Last Admin: 04/11/16 09:02 Dose: 100 mls/hr Sodium Chloride (Normal Saline -) 1,000 mls @ 100 mls/hr IV ASDIR [facility] Last Admin: 04/11/16 14:01 Dose: Not Given Insulin Aspart (Novolog Vial Sliding Scale -) 1 vial SQ [facility] PRN Reason: Protocol Last Admin: 04/11/16 11:00 Dose: Not Given Isosorbide Dinitrate (Isordil -) 20 mg PO BID [facility] Last Admin: 04/11/16 10:00 Dose: Not Given Levothyroxine Sodium (Synthroid -) 50 mcg PO DAILY@0700 [facility] Last Admin: 04/11/16 09:02 Dose: Not Given Metoprolol Succinate (Toprol Xl -) 50 mg PO DAILY [facility] Last Admin: 04/11/16 09:03 Dose: Not Given Timolol Maleate (Timoptic 0.5%) 1 drop OD BID [facility] - Objective Vital Signs: Vital Signs Temperature 97.6 F 04/11/16 12:00 Pulse Rate 64 04/11/16 12:00 Respiratory Rate 21 04/11/16 12:00 Blood Pressure 120/65 04/11/16 12:00 O2 Sat by Pulse Oximetry (%) 100 04/11/16 12:00 Constitutional: Yes: Calm Eyes: Yes: Conjunctiva Clear HENT: Yes: Atraumatic Cardiovascular: Yes: S1, S2 Respiratory: Yes: CTA Bilaterally, On Nasal O2 Gastrointestinal: Yes: Soft Genitourinary: Yes: López Present Musculoskeletal: Yes: Muscle Weakness Edema: No Neurological: Yes: Oriented Psychiatric: Yes: Oriented Labs: CBC, BMP 04/11/16 05:40 04/11/16 05:40 INR, PTT INR 1.91 (0.82-1.09) H 04/11/16 05:40 - ....Imaging Chest X-ray: Report Reviewed Problem List - Problems (1) Abscess Code(s): L02.91 - CUTANEOUS ABSCESS, UNSPECIFIED (2) Acute on chronic renal failure Code(s): N17.9 - ACUTE KIDNEY FAILURE, UNSPECIFIED N18.9 - CHRONIC KIDNEY DISEASE, UNSPECIFIED (3) Leukocytosis Code(s): D72.829 - ELEVATED WHITE BLOOD CELL COUNT, UNSPECIFIED Qualifiers: Qualified Code(s): D72.829 - Elevated white blood cell count, unspecified (4) Anemia Code(s): D64.9 - ANEMIA, UNSPECIFIED Qualifiers: Qualified Code(s): D62 - Acute posthemorrhagic anemia (5) Congestive heart failure (CHF) Code(s): I50.9 - HEART FAILURE, UNSPECIFIED Qualifiers: Qualified Code(s): I50.22 - Chronic systolic (congestive) heart failure (6) DMII (diabetes mellitus, type 2) Code(s): E11.9 - TYPE 2 DIABETES MELLITUS WITHOUT COMPLICATIONS (7) HTN (hypertension) Code(s): I10 - ESSENTIAL (PRIMARY) HYPERTENSION Qualifiers: Qualified Code(s): I10 - Essential (primary) hypertension (8) Hyperkalemia Code(s): E87.5 - HYPERKALEMIA Assessment/Plan Current Medications Generic Name Dose Route Start Last Admin Trade Name Freq PRN Reason Stop Dose Admin Acetaminophen 650 mg 04/10/16 13:13 Tylenol - PO Q6H PRN FEVER OR PAIN Albuterol/Ipratropium 1 amp 04/10/16 13:13 Duoneb - NEB Q6H PRN SHORTNESS OF BREATH Amiodarone HCl 200 mg 04/11/16 10:00 04/11/16 09:02 Cordarone - PO Not Given DAILY [facility] Brimonidine Tartrate 1 drop 04/10/16 22:00 04/11/16 00:04 Alphagan 0.2% - OD 1 drop BID [facility] Administration Budesonide/Formoterol Fumarate 2 puff 04/10/16 22:00 04/11/16 00:05 Symbicort 80/4.5mcg - IH 2 puff BID [facility] Administration Bumetanide 2 mg 04/10/16 18:00 04/11/16 06:42 Bumex - PO 2 mg BID@0600,1800 [facility] Administration Clonidine 0.2 mg 04/11/16 10:00 04/11/16 09:02 Catapres - PO Not Given DAILY [facility] Folic Acid 1 mg 04/11/16 10:00 04/11/16 09:02 Folic Acid - PO Not Given DAILY [facility] Hydralazine HCl 25 mg 04/10/16 22:00 04/11/16 09:02 Apresoline - PO Not Given BID [facility] Sodium Chloride 1,000 mls @ 83 mls/hr 04/10/16 19:15 04/10/16 17:00 Normal Saline - IV 83 mls/hr ASDIR [facility] Administration Piperacillin Sod/Tazobactam Sod 50 mls @ 100 mls/hr 04/11/16 10:00 04/11/16 11: 00 Zosyn 2.25gm Ivpb (Pre-Docked) IVPB 100 mls/hr Q8H-IV [facility] Administration Metronidazole 100 mls @ 100 mls/hr 04/11/16 10:00 04/11/16 09:02 Flagyl 500mg Premixed Ivpb - IVPB 100 mls/hr Q8H-IV [facility] Administration Sodium Chloride 1,000 mls @ 100 mls/hr 04/11/16 11:30 04/11/16 14:01 Normal Saline - IV Not Given ASDIR [facility] Insulin Aspart 1 vial 04/10/16 16:30 04/11/16 11:00 Novolog Vial Sliding Scale - SQ Not Given ACHS [facility] Protocol Isosorbide Dinitrate 20 mg 04/10/16 22:00 04/11/16 10:00 Isordil - PO Not Given BID [facility] Levothyroxine Sodium 50 mcg 04/11/16 07:00 04/11/16 09:02 Synthroid - PO Not Given DAILY@0700 [facility] Metoprolol Succinate 50 mg 04/11/16 10:00 04/11/16 09:03 Toprol Xl - PO Not Given DAILY [facility] Timolol Maleate 1 drop 04/10/16 22:00 Timoptic 0.5% OD BID [facility] Impression 1. CASE 2. hyperkalemia 3. cellulitis/abscess of back 4. CHF 5. hypothyroidism 6. hyperlipidemia 7. COPD 8. htn 9. sepsis Plan - will give insulin, d50, bicarb, calcium gluconate - restart fluids - keep bactrim on hold - hold diuretics - will need to repeat bmp, this was discussed with ICU team - abx per ID - monitor pulse ox - monitor renal function closely - check ECG - cont wound care to back, dressing changes per surgery
--- NOTE | 2016-04-11 14:34 | CONSULT ---
Consultation: REQUESTING PROVIDER: CONSULT REQUEST: We have been asked to medically evaluate this patient for sepsis 2/2 abscess. HISTORY OF PRESENT ILLNESS: The patient is a 76 year old male with significant past medical history of CHF , HTN,HLD,COPD, hypothyroidism, NIDDM, CKD, and Parox. 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 He was then referred to wound care clinic 04/10/15 for further care but subsequently sent to ED b/c wound was too deep and draining foul smelling discharge. He was found to have leukocytosis and CASE(w/hypekalemia) . He was admitted and bedside ID was preformed 100ml of purulent material was expressed ,cultures sent. ID(Dr. Ponce) placed him on Vanco(x1),Zosyn, and metronidazole. CASE/ hyperkalemia seen by Dr. Martinez. Patient was then consented and underwent sharp excisional debridement of left back/shoulder skin and subcutaneous tissue, pulse irrigation and washout, VAC placement 04/11/16. Now transfered to ICU for post op monitoring. PMHx: as per HPI Sx: no prior surgery Social Hx: * Lives alone independently * denies smoking, drinking, or drug use. FHx: mother of neck ca? / father of ruptured brain aneurysm. REVIEW OF SYSTEMS: CONSTITUTIONAL: Absent: fever, chills, diaphoresis, generalized weakness, malaise, loss of appetite, weight change HEENT: Absent: rhinorrhea, nasal congestion, throat pain, throat swelling, difficulty swallowing, mouth swelling, ear pain, eye pain, visual changes CARDIOVASCULAR: Absent: chest pain, syncope, palpitations, irregular heart rate, lightheadedness , peripheral edema RESPIRATORY: Absent: cough, shortness of breath, dyspnea with exertion, orthopnea, wheezing, stridor, hemoptysis GASTROINTESTINAL: Absent: abdominal pain, abdominal distension, nausea, vomiting, diarrhea, constipation, melena, hematochezia GENITOURINARY: (+) pain from cunningham Absent: dysuria, frequency, urgency, hesitancy, hematuria, flank pain, genital pain MUSCULOSKELETAL: (+) Incisional pain Absent: myalgia, arthralgia, joint swelling, back pain, neck pain SKIN: Absent: rash, itching, pallor HEMATOLOGIC/IMMUNOLOGIC: Absent: easy bleeding, easy bruising, lymphadenopathy, frequent infections ENDOCRINE: Absent: unexplained weight gain, unexplained weight loss, heat intolerance, cold intolerance NEUROLOGIC: Absent: headache, focal weakness or paresthesias, dizziness, unsteady gait, seizure, mental status changes, bladder or bowel incontinence PSYCHIATRIC: Absent: anxiety, depression, suicidal or homicidal ideation, hallucinations. PHYSICAL EXAMINATION Vital Signs - 24 hr 04/10/16 04/11/16 04/11/16 23:24 03:51 11:29 Temperature 97.4 F L Pulse Rate 70 Pulse Rate [ 77 72 Left] Respiratory 16 20 Rate Blood Pressure 107/68 Blood Pressure 126/56 104/58 [Arm] O2 Sat by Pulse 98 97 97 Oximetry (%) GENERAL: Awake, alert, and fully oriented, in no acute distress. HEAD: Normal with no signs of trauma. EYES: Pupils equal, round and reactive to light, extraocular movements intact, sclera anicteric, conjunctiva clear. No lid lag. EARS, NOSE, THROAT: Ears normal, nares patent, oropharynx clear without exudates. Moist mucous membranes. NECK: Normal range of motion, supple without lymphadenopathy, JVD, or masses. LUNGS: Breath sounds equal, clear to auscultation bilaterally. No wheezes, fine crackles at left base. . No accessory muscle use. HEART: Regular rate and rhythm, normal S1 and S2 without murmur, rub or gallop. ABDOMEN: Obese,Soft, nontender, not distended, normoactive bowel sounds, no guarding, no rebound, no masses. No hepatomegaly or splenomegaly. MUSCULOSKELETAL: Normal range of motion at all joints. No bony deformities or tenderness. No CVA tenderness. UPPER EXTREMITIES: 2+ pulses, warm, well-perfused. No cyanosis. No clubbing. Cap refill <2 seconds. No peripheral edema. LOWER EXTREMITIES: 2+ pulses, warm, well-perfused. No calf tenderness. No peripheral edema. NEUROLOGICAL: Cranial nerves II-XII intact. Normal speech. Normal gait. PSYCHIATRIC: Cooperative. Good eye contact. Appropriate mood and affect. SKIN: 5x5 cm open wound with wound vac in place suctioning on left scapula. Laboratory Results - last 24 hr 04/10/16 04/10/16 04/10/16 19:00 19:00 19:53 WBC 23.4 H RBC 2.98 L Hgb 8.6 L Hct 26.7 L MCV 89.5 MCHC 32.2 RDW 18.0 H Plt Count 217 MPV 8.7 Neutrophils % Lymphocytes % Monocytes % Eosinophils % Basophils % Band Neutrophils Differential Comment Toxic Granulation Poikilocytosis Anisocytosis Macrocytosis Ovalocytes Dora Cells Acanthocytes (Spur) Fragmented RBCs Morphology Comment ESR 40 H INR Sodium 134 L Potassium 5.8 H Chloride 102 Carbon Dioxide 20 L Anion Gap 12 BUN 113 H* Creatinine 4.7 H Creat Clearance w eGFR POC Glucometer Random Glucose 181 H D Calcium 8.4 L Total Bilirubin AST ALT Alkaline Phosphatase C-Reactive Protein Total Protein Albumin Urine Color Urine Appearance Urine pH Ur Specific Lannon Urine Protein Urine Glucose (UA) Urine Clinitest Urine Ketones Urine Blood Urine Nitrite Urine Bilirubin Urine Ictotest Prot Sulfosalicylic Acd Urine Urobilinogen Ur Leukocyte Esterase Ur Random Sodium Ur Random Potassium Ur Random Chloride Ur Random Urea Nitrogn Cancelled Urine Creatinine Random Vancomycin 04/10/16 04/10/16 04/10/16 19:53 19:53 19:53 WBC RBC Hgb Hct MCV MCHC RDW Plt Count MPV Neutrophils % Lymphocytes % Monocytes % Eosinophils % Basophils % Band Neutrophils Differential Comment Toxic Granulation Poikilocytosis Anisocytosis Macrocytosis Ovalocytes Dora Cells Acanthocytes (Spur) Fragmented RBCs Morphology Comment ESR INR Sodium Potassium Chloride Carbon Dioxide Anion Gap BUN Creatinine Creat Clearance w eGFR POC Glucometer Random Glucose Calcium Total Bilirubin AST ALT Alkaline Phosphatase C-Reactive Protein Total Protein Albumin Urine Color Cancelled Urine Appearance Cancelled Urine pH Cancelled Ur Specific Lannon Cancelled Urine Protein Cancelled Urine Glucose (UA) Cancelled Urine Clinitest Cancelled Urine Ketones Cancelled Urine Blood Cancelled Urine Nitrite Cancelled Urine Bilirubin Cancelled Urine Ictotest Cancelled Prot Sulfosalicylic Acd Cancelled Urine Urobilinogen Cancelled Ur Leukocyte Esterase Cancelled Ur Random Sodium Cancelled Ur Random Potassium Cancelled Ur Random Chloride Cancelled Ur Random Urea Nitrogn Urine Creatinine Cancelled Random Vancomycin 04/10/16 04/10/16 04/10/16 22:00 22:00 22:46 WBC 29.3 H RBC 2.94 L Hgb 8.5 L Hct 26.5 L MCV 90.1 MCHC 32.0 RDW 18.0 H Plt Count 215 MPV 8.5 Neutrophils % 87.1 H Lymphocytes % 1.4 L D Monocytes % 10.5 H Eosinophils % 0.1 D Basophils % 0.9 Band Neutrophils Differential Comment Toxic Granulation Poikilocytosis Anisocytosis Macrocytosis Ovalocytes Tatum Cells Acanthocytes (Spur) Fragmented RBCs Morphology Comment ESR INR Sodium Potassium Chloride Carbon Dioxide Anion Gap BUN Creatinine Creat Clearance w eGFR POC Glucometer Random Glucose Calcium Total Bilirubin AST ALT Alkaline Phosphatase C-Reactive Protein Total Protein Albumin Urine Color Ltyellow Urine Appearance Clear Urine pH 5.0 Ur Specific Lannon 1.010 Urine Protein Negative Urine Glucose (UA) Negative Urine Clinitest Urine Ketones Negative Urine Blood Negative Urine Nitrite Negative Urine Bilirubin Negative Urine Ictotest Prot Sulfosalicylic Acd Urine Urobilinogen Negative Ur Leukocyte Esterase Negative Ur Random Sodium 44 Ur Random Potassium 32.2 Ur Random Chloride 66 Ur Random Urea Nitrogn Urine Creatinine 36.2 Random Vancomycin 04/10/16 04/11/16 04/11/16 22:46 05:40 05:40 WBC 24.9 H RBC 2.92 L Hgb 8.4 L Hct 25.8 L MCV 88.3 MCHC 32.5 RDW 17.7 H Plt Count 231 MPV 8.7 Neutrophils % 94.0 H Lymphocytes % 1.0 L D Monocytes % 3.0 L Eosinophils % Basophils % Band Neutrophils 2.0 D Differential Comment Manual diff done Toxic Granulation 3+ Poikilocytosis 4+ Anisocytosis 2+ Macrocytosis 3+ Ovalocytes 2+ Tatum Cells 4+ Acanthocytes (Spur) 2+ Fragmented RBCs 2+ Morphology Comment Slide scanned ESR INR 1.91 H Sodium 137 Potassium 5.4 H Chloride 102 Carbon Dioxide 16 L Anion Gap 19 H BUN 111 H* Creatinine 4.8 H Creat Clearance w eGFR 11.89 POC Glucometer Random Glucose 78 D Calcium 9.1 Total Bilirubin 1.7 H AST 15 ALT 8 L Alkaline Phosphatase 105 C-Reactive Protein Total Protein 6.5 Albumin 2.3 L Urine Color Urine Appearance Urine pH Ur Specific Lannon Urine Protein Urine Glucose (UA) Urine Clinitest Urine Ketones Urine Blood Urine Nitrite Urine Bilirubin Urine Ictotest Prot Sulfosalicylic Acd Urine Urobilinogen Ur Leukocyte Esterase Ur Random Sodium Ur Random Potassium Ur Random Chloride Ur Random Urea Nitrogn Urine Creatinine Random Vancomycin 04/11/16 04/11/16 04/11/16 05:40 08:10 08:44 WBC RBC Hgb Hct MCV MCHC RDW Plt Count MPV Neutrophils % Lymphocytes % Monocytes % Eosinophils % Basophils % Band Neutrophils Differential Comment Toxic Granulation Poikilocytosis Anisocytosis Macrocytosis Ovalocytes Tatum Cells Acanthocytes (Spur) Fragmented RBCs Morphology Comment ESR INR Sodium 135 L Potassium 5.8 H Chloride 102 Carbon Dioxide 20 L D Anion Gap 13 BUN 113 H* Creatinine 4.8 H Creat Clearance w eGFR POC Glucometer 180.29047 Random Glucose 139 H D Calcium 8.8 Total Bilirubin AST ALT Alkaline Phosphatase C-Reactive Protein 22.0 H Cancelled Total Protein Albumin Urine Color Urine Appearance Urine pH Ur Specific Lannon Urine Protein Urine Glucose (UA) Urine Clinitest Urine Ketones Urine Blood Urine Nitrite Urine Bilirubin Urine Ictotest Prot Sulfosalicylic Acd Urine Urobilinogen Ur Leukocyte Esterase Ur Random Sodium Ur Random Potassium Ur Random Chloride Ur Random Urea Nitrogn Urine Creatinine Random Vancomycin 04/11/16 09:55 WBC RBC Hgb Hct MCV MCHC RDW Plt Count MPV Neutrophils % Lymphocytes % Monocytes % Eosinophils % Basophils % Band Neutrophils Differential Comment Toxic Granulation Poikilocytosis Anisocytosis Macrocytosis Ovalocytes Tatum Cells Acanthocytes (Spur) Fragmented RBCs Morphology Comment ESR INR Sodium Potassium Chloride Carbon Dioxide Anion Gap BUN Creatinine Creat Clearance w eGFR POC Glucometer Random Glucose Calcium Total Bilirubin AST ALT Alkaline Phosphatase C-Reactive Protein Total Protein Albumin Urine Color Urine Appearance Urine pH Ur Specific Lannon Urine Protein Urine Glucose (UA) Urine Clinitest Urine Ketones Urine Blood Urine Nitrite Urine Bilirubin Urine Ictotest Prot Sulfosalicylic Acd Urine Urobilinogen Ur Leukocyte Esterase Ur Random Sodium Ur Random Potassium Ur Random Chloride Ur Random Urea Nitrogn Urine Creatinine Random Vancomycin < 0.800 Active Medications Generic Name Dose Route Start Last Admin Trade Name Freq PRN Reason Stop Dose Admin Acetaminophen 650 mg 04/10/16 13:13 Tylenol - PO Q6H PRN FEVER OR PAIN Albuterol/Ipratropium 1 amp 04/10/16 13:13 Duoneb - NEB Q6H PRN SHORTNESS OF BREATH Amiodarone HCl 200 mg 04/11/16 10:00 04/11/16 09:02 Cordarone - PO Not Given DAILY [facility] Brimonidine Tartrate 1 drop 04/10/16 22:00 04/11/16 00:04 Alphagan 0.2% - OD 1 drop BID [facility] Administration Budesonide/Formoterol Fumarate 2 puff 04/10/16 22:00 04/11/16 00:05 Symbicort 80/4.5mcg - IH 2 puff BID [facility] Administration Bumetanide 2 mg 04/10/16 18:00 04/11/16 06:42 Bumex - PO 2 mg BID@0600,1800 [facility] Administration Clonidine 0.2 mg 04/11/16 10:00 04/11/16 09:02 Catapres - PO Not Given DAILY [facility] Folic Acid 1 mg 04/11/16 10:00 04/11/16 09:02 Folic Acid - PO Not Given DAILY [facility] Hydralazine HCl 25 mg 04/10/16 22:00 04/11/16 09:02 Apresoline - PO Not Given BID [facility] Sodium Chloride 1,000 mls @ 83 mls/hr 04/10/16 19:15 04/10/16 17:00 Normal Saline - IV 83 mls/hr ASDIR [facility] Administration Piperacillin Sod/Tazobactam Sod 50 mls @ 100 mls/hr 04/11/16 10:00 04/11/16 11: 00 Zosyn 2.25gm Ivpb (Pre-Docked) IVPB 100 mls/hr Q8H-IV [facility] Administration Metronidazole 100 mls @ 100 mls/hr 04/11/16 10:00 04/11/16 09:02 Flagyl 500mg Premixed Ivpb - IVPB 100 mls/hr Q8H-IV [facility] Administration Sodium Chloride 1,000 mls @ 100 mls/hr 04/11/16 11:30 Normal Saline - IV ASDIR [facility] Insulin Aspart 1 vial 04/10/16 16:30 04/11/16 11:00 Novolog Vial Sliding Scale - SQ Not Given ACHS [facility] Protocol Isosorbide Dinitrate 20 mg 04/10/16 22:00 04/11/16 10:00 Isordil - PO Not Given BID [facility] Levothyroxine Sodium 50 mcg 04/11/16 07:00 04/11/16 09:02 Synthroid - PO Not Given DAILY@0700 [facility] Metoprolol Succinate 50 mg 04/11/16 10:00 04/11/16 09:03 Toprol Xl - PO Not Given DAILY [facility] Timolol Maleate 1 drop 04/10/16 22:00 Timoptic 0.5% OD BID [facility] ASSESSMENT/PLAN: 76 yo M with h/o CHF, HTN,hypothyroid, CKD, IDDM , aflutter on eliquis admitted to ICU s/p sharp excisional debridement of left back/shoulder skin and subcutaneous tissue, pulse irrigation and washout, VAC placement. Integumentary: * Wound is on VAC suction and draining. * Wound care as per surgery instruction. * Pain control with Morphine 2mg IV Q4H PRN Neuro: * AAO x3 * Will continiue to monitor for signs of AMS Pulm: * Supplemental O2 to maintain O2 sat>90% * Duonebs Q6H * Budesonide/Formoterol Fumarate (Symbicort 80/4.5mcg -) 2 puff IH BID * Aspiration precautions. CV: * Holding diuretics for now * ECHO- 12/2014 showed mild LV dilatation, severe reduced LV func.Reduced LV relaxation.mild LA dilated. mod-severe mitral AC, mod /AR * Aflutter- Amiodarone HCl (Cordarone -) 200 mg PO DAILY and Metoprolol Succinate (Toprol Xl -) 50 mg PO DAILY * Bumetanide (Bumex -) 2 mg PO BID-held as per Nephrology * Clonidine (Catapres -) 0.2 mg PO DAILY * Hydralazine HCl (Apresoline -) 25 mg PO BID * Isosorbide Dinitrate (Isordil -) 20 mg PO BID * NO NORMAN/ARB or statin ? ID: * Seen by Dr. Ponce * cultures pending. * Cont: * Piperacillin Sod/Tazobactam Sod (Zosyn 2.25gm Ivpb (Pre-Docked)) 50 mls @ 100 mls/hr IVPB Q8H-IV * Metronidazole (Flagyl 500mg Premixed Ivpb -) 100 mls @ 100 mls/hr IVPB Q8H-IV * Vanco level pending. * Consult appreciated. Renal: * Seen by Dr. Martinez recommends: * insulin, d50, bicarb, calcium gluconate * restart fluids-Sodium Chloride (Normal Saline -) 1,000 mls @ 83 mls/hr * keep bactrim on hold * hold diuretics * Consult appreciated. Glaucoma: * Brimonidine Tartrate (Alphagan 0.2% -) 1 drop OD BID * Timolol Maleate (Timoptic 0.5%) 1 drop OD BID Endocrine: * Levothyroxine Sodium (Synthroid -) 50 mcg PO DAILY * Insulin Aspart (Novolog Vial Sliding Scale -) 1 vial SQ ACHS * BGM ACHS * ADA diet. F/E/N: * Sodium Chloride (Normal Saline -) 1,000 mls @ 83 mls/hr IV * Hypekalemia and hypocalcemia being replace, will repeat BMP this PM * Clear liquid diet; to be advanced by surgery. DISPO: Continue to monitor in ICU. Dispo: We will continue to follow the patient. Thank you for this consultative opportunity. Visit type - Emergency Visit Emergency Visit: Yes ED Registration Date: 04/10/16 Care time: The patient presented to the Emergency Department on the above date and was hospitalized for further evaluation of their emergent condition. - New Patient This patient is new to me today: Yes Date on this admission: 04/11/16 - Critical Care Critical Care patient: Yes Total Critical Care Time (in minutes): 45 Critical Care Statement: The care of this patient involved high complexity decision making to prevent further life threatening deterioration of the patient 's condition and/or to evalute & treat vital organ system(s) failure or risk of failure.
[2016-04-11] MEDS ORDERED: SODIUM BICARBONATE 8.4% 50 MEQ/50 ML VIAL IV ONE (15:00)
[2016-04-11 15:17] LABS: BASOPHIL 0.2 % (0-2.0); EOSINOPHIL 0.3 % (0-4.5); MCH 28.6 pg (25.7-33.7); MCHC 32.3 g/dl (32.0-35.9); MEAN CELL VOLUME 88.5 fl (80-96); MEAN PLT VOLUME 8.4 fl (7.5-11.1); NEUTROPHILS 88.7 % (42.8-82.8); PLATELET COUNT 193 K/MM3 (134-434); RDW 17.4 % (11.9-15.9); WHITE BLOOD COUNT 19.4 K/mm3 (4.0-10.0)
--- NOTE | 2016-04-11 15:29 | PN ---
Teaching Attending Note Name of Resident: Shoaib Rojas ATTENDING PHYSICIAN STATEMENT I saw and evaluated the patient. I reviewed the resident's note and discussed the case with the resident. I agree with the resident's findings and plan as documented. 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 Apparently is was drained by PCP 04/09/15 in the office and he was started on Batrim DS BID. Wound started to produce a foul smelling discharge. On labs noted to be hyperkalemic and in CASE. Taken to the OR and and underwent sharp excisional debridement of the left back/ shoulder skin and subcutaneous tissue, pulse irrigation and washout. A VAC was placed on 04/11/16. Now transfered to ICU for post op monitoring. Constitutional: Yes: NAD, awake and alert Eyes: Yes: Conjunctiva Clear HENT: Yes: Atraumatic Cardiovascular: Yes: S1, S2 Respiratory: Yes: Clear Gastrointestinal: Yes: Soft Genitourinary: Yes: López Present Musculoskeletal: Yes: Muscle Weakness Edema: No Neurological: Yes: Oriented Psychiatric: Yes: Oriented Labs: Laboratory Results - last 24 hr 04/10/16 04/10/16 04/10/16 13:12 19:00 19:00 WBC 23.4 H RBC 2.98 L Hgb 8.6 L Hct 26.7 L MCV 89.5 MCHC 32.2 RDW 18.0 H Plt Count 217 MPV 8.7 Neutrophils % Lymphocytes % Monocytes % Eosinophils % Basophils % Band Neutrophils Differential Comment Toxic Granulation Poikilocytosis Anisocytosis Macrocytosis Ovalocytes Tatum Cells Acanthocytes (Spur) Fragmented RBCs Morphology Comment ESR 40 H INR Sodium 133 L 134 L Potassium 5.9 H 5.8 H Chloride 100 102 Carbon Dioxide 19 L 20 L Anion Gap 14 12 BUN 115 H* 113 H* Creatinine 4.9 H 4.7 H Creat Clearance w eGFR 11.61 POC Glucometer Random Glucose 89 181 H D Calcium 9.2 8.4 L Total Bilirubin 1.6 H AST 14 L ALT 9 L Alkaline Phosphatase 107 C-Reactive Protein Total Protein 6.6 Albumin 2.4 L Urine Color Urine Appearance Urine pH Ur Specific [place] Urine Protein Urine Glucose (UA) Urine Clinitest Urine Ketones Urine Blood Urine Nitrite Urine Bilirubin Urine Ictotest Prot Sulfosalicylic Acd Urine Urobilinogen Ur Leukocyte Esterase Ur Random Sodium Ur Random Potassium Ur Random Chloride Ur Random Urea Nitrogn Urine Creatinine Random Vancomycin 04/10/16 04/10/16 04/10/16 19:53 19:53 19:53 WBC RBC Hgb Hct MCV MCHC RDW Plt Count MPV Neutrophils % Lymphocytes % Monocytes % Eosinophils % Basophils % Band Neutrophils Differential Comment Toxic Granulation Poikilocytosis Anisocytosis Macrocytosis Ovalocytes Tatum Cells Acanthocytes (Spur) Fragmented RBCs Morphology Comment ESR INR Sodium Potassium Chloride Carbon Dioxide Anion Gap BUN Creatinine Creat Clearance w eGFR POC Glucometer Random Glucose Calcium Total Bilirubin AST ALT Alkaline Phosphatase C-Reactive Protein Total Protein Albumin Urine Color Cancelled Urine Appearance Cancelled Urine pH Cancelled Ur Specific [place] Cancelled Urine Protein Cancelled Urine Glucose (UA) Cancelled Urine Clinitest Cancelled Urine Ketones Cancelled Urine Blood Cancelled Urine Nitrite Cancelled Urine Bilirubin Cancelled Urine Ictotest Cancelled Prot Sulfosalicylic Acd Cancelled Urine Urobilinogen Cancelled Ur Leukocyte Esterase Cancelled Ur Random Sodium Cancelled Ur Random Potassium Cancelled Ur Random Chloride Cancelled Ur Random Urea Nitrogn Cancelled Urine Creatinine Random Vancomycin 04/10/16 04/10/16 04/10/16 19:53 22:00 22:00 WBC RBC Hgb Hct MCV MCHC RDW Plt Count MPV Neutrophils % Lymphocytes % Monocytes % Eosinophils % Basophils % Band Neutrophils Differential Comment Toxic Granulation Poikilocytosis Anisocytosis Macrocytosis Ovalocytes [place] Flat Cells Acanthocytes (Spur) Fragmented RBCs Morphology Comment ESR INR Sodium Potassium Chloride Carbon Dioxide Anion Gap BUN Creatinine Creat Clearance w eGFR POC Glucometer Random Glucose Calcium Total Bilirubin AST ALT Alkaline Phosphatase C-Reactive Protein Total Protein Albumin Urine Color Ltyellow Urine Appearance Clear Urine pH 5.0 Ur Specific [place] 1.010 Urine Protein Negative Urine Glucose (UA) Negative Urine Clinitest Urine Ketones Negative Urine Blood Negative Urine Nitrite Negative Urine Bilirubin Negative Urine Ictotest Prot Sulfosalicylic Acd Urine Urobilinogen Negative Ur Leukocyte Esterase Negative Ur Random Sodium 44 Ur Random Potassium 32.2 Ur Random Chloride 66 Ur Random Urea Nitrogn Urine Creatinine Cancelled 36.2 Random Vancomycin 04/10/16 04/10/16 04/11/16 22:46 22:46 05:40 WBC 29.3 H RBC 2.94 L Hgb 8.5 L Hct 26.5 L MCV 90.1 MCHC 32.0 RDW 18.0 H Plt Count 215 MPV 8.5 Neutrophils % 87.1 H Lymphocytes % 1.4 L D Monocytes % 10.5 H Eosinophils % 0.1 D Basophils % 0.9 Band Neutrophils Differential Comment Toxic Granulation Poikilocytosis Anisocytosis Macrocytosis Ovalocytes [place] Flat Cells Acanthocytes (Spur) Fragmented RBCs Morphology Comment ESR INR 1.91 H Sodium 137 Potassium 5.4 H Chloride 102 Carbon Dioxide 16 L Anion Gap 19 H BUN 111 H* Creatinine 4.8 H Creat Clearance w eGFR 11.89 POC Glucometer Random Glucose 78 D Calcium 9.1 Total Bilirubin 1.7 H AST 15 ALT 8 L Alkaline Phosphatase 105 C-Reactive Protein Total Protein 6.5 Albumin 2.3 L Urine Color Urine Appearance Urine pH Ur Specific [place] Urine Protein Urine Glucose (UA) Urine Clinitest Urine Ketones Urine Blood Urine Nitrite Urine Bilirubin Urine Ictotest Prot Sulfosalicylic Acd Urine Urobilinogen Ur Leukocyte Esterase Ur Random Sodium Ur Random Potassium Ur Random Chloride Ur Random Urea Nitrogn Urine Creatinine Random Vancomycin 04/11/16 04/11/16 04/11/16 05:40 05:40 08:10 WBC 24.9 H RBC 2.92 L Hgb 8.4 L Hct 25.8 L MCV 88.3 MCHC 32.5 RDW 17.7 H Plt Count 231 MPV 8.7 Neutrophils % 94.0 H Lymphocytes % 1.0 L D Monocytes % 3.0 L Eosinophils % Basophils % Band Neutrophils 2.0 D Differential Comment Manual diff done Toxic Granulation 3+ Poikilocytosis 4+ Anisocytosis 2+ Macrocytosis 3+ Ovalocytes 2+ Tatum Cells 4+ Acanthocytes (Spur) 2+ Fragmented RBCs 2+ Morphology Comment Slide scanned ESR INR Sodium 135 L Potassium 5.8 H Chloride 102 Carbon Dioxide 20 L D Anion Gap 13 BUN 113 H* Creatinine 4.8 H Creat Clearance w eGFR POC Glucometer 180.55328 Random Glucose 139 H D Calcium 8.8 Total Bilirubin AST ALT Alkaline Phosphatase C-Reactive Protein 22.0 H Total Protein Albumin Urine Color Urine Appearance Urine pH Ur Specific [place] Urine Protein Urine Glucose (UA) Urine Clinitest Urine Ketones Urine Blood Urine Nitrite Urine Bilirubin Urine Ictotest Prot Sulfosalicylic Acd Urine Urobilinogen Ur Leukocyte Esterase Ur Random Sodium Ur Random Potassium Ur Random Chloride Ur Random Urea Nitrogn Urine Creatinine Random Vancomycin 04/11/16 04/11/16 04/11/16 08:44 09:55 14:15 WBC 19.4 H RBC 2.64 L Hgb 7.5 L D Hct 23.3 L MCV 88.5 MCHC 32.3 RDW 17.4 H Plt Count 193 MPV 8.4 Neutrophils % 88.7 H Lymphocytes % 2.5 L D Monocytes % 8.3 D Eosinophils % 0.3 D Basophils % 0.2 Band Neutrophils Differential Comment Toxic Granulation Poikilocytosis Anisocytosis Macrocytosis Ovalocytes Tatum Cells Acanthocytes (Spur) Fragmented RBCs Morphology Comment ESR INR Sodium Potassium Chloride Carbon Dioxide Anion Gap BUN Creatinine Creat Clearance w eGFR POC Glucometer Random Glucose Calcium Total Bilirubin AST ALT Alkaline Phosphatase C-Reactive Protein Cancelled Total Protein Albumin Urine Color Urine Appearance Urine pH Ur Specific [place] Urine Protein Urine Glucose (UA) Urine Clinitest Urine Ketones Urine Blood Urine Nitrite Urine Bilirubin Urine Ictotest Prot Sulfosalicylic Acd Urine Urobilinogen Ur Leukocyte Esterase Ur Random Sodium Ur Random Potassium Ur Random Chloride Ur Random Urea Nitrogn Urine Creatinine Random Vancomycin < 0.800 Problem List - Problems (1) Abscess Code(s): L02.91 - CUTANEOUS ABSCESS, UNSPECIFIED (2) Acute on chronic renal failure Code(s): N17.9 - ACUTE KIDNEY FAILURE, UNSPECIFIED N18.9 - CHRONIC KIDNEY DISEASE, UNSPECIFIED (3) Leukocytosis Code(s): D72.829 - ELEVATED WHITE BLOOD CELL COUNT, UNSPECIFIED Qualifiers: Qualified Code(s): D72.829 - Elevated white blood cell count, unspecified (4) Anemia Code(s): D64.9 - ANEMIA, UNSPECIFIED Qualifiers: Qualified Code(s): D62 - Acute posthemorrhagic anemia (5) Congestive heart failure (CHF) Code(s): I50.9 - HEART FAILURE, UNSPECIFIED Qualifiers: Qualified Code(s): I50.22 - Chronic systolic (congestive) heart failure (6) DMII (diabetes mellitus, type 2) Code(s): E11.9 - TYPE 2 DIABETES MELLITUS WITHOUT COMPLICATIONS (7) HTN (hypertension) Code(s): I10 - ESSENTIAL (PRIMARY) HYPERTENSION Qualifiers: Qualified Code(s): I10 - Essential (primary) hypertension (8) Hyperkalemia Code(s): E87.5 - HYPERKALEMIA PLAN: Hold diuretics for now IVF Eliquis Wound care per surgery ABX Symbicort BID Post-op ICU monitoring Thank you. Dr Farrell CCTime 35"
[2016-04-11 15:36] LABS: BILIRUBIN,TOTAL 1.3 mg/dL (0.2-1.0); CALCIUM 8.5 mg/dL (8.5-10.1); CREATININE 4.6 mg/dL (0.7-1.3)
[2016-04-11] MEDS ORDERED: morphine CARPU-JECT 2 MG/1 ML DISP.SYRIN IVPUSH PRN (15:45)
[2016-04-11] MEDS: PIPERACILLIN/TAZOB 2.25 GM 50 ML IVPB SCH (17:08)
[2016-04-11] MEDS: METRONIDAZOLE 500 MG PREMIXED 100 ML IVPB SCH (17:08)
--- NOTE | 2016-04-11 17:11 | CON.CARD ---
Cardiology Consult (text) - Consultation Consultation Note: cc: subcutaneous abscess hpi: 75 m hx non obs cad (cath 10/2014: only mild disease RCA), remote [place] ( mentioned in prior charts, no further details, pt unclear of hx), syst chf (NICM , mild dec lvef), htn, copd, dm, ckd (cr 2's), aflutter on eliquis, here with subcutaneous abscess/sepsis/CASE. s/p I and D today. No discomfort. May have been taking both torsemide and furosemide at home. No cp, sob, palps, dizzy, loc, pnd, orthopnea, le edema. Baseline sob walking 1 block, stable no f/c/s, n/v/d, cough, congestion, h/a. Sees Dr. Acosta for cardio. pmh: per hpi psh: nc social: no tob fam: no premature cad, scd ros: per hpi; meds: Ambulatory Orders Amiodarone HCl 200 mg PO DAILY 04/11/16 Apixaban [Eliquis] 5 mg PO BID 04/11/16 Atorvastatin Ca [Lipitor] 10 mg PO DAILY 04/11/16 Hydralazine HCl 10 mg PO TID 04/11/16 Isosorbide Dinitrate [Isordil -] 20 mg PO TID 04/11/16 Metoprolol Succinate [Toprol Xl -] 50 mg PO DAILY 04/11/16 Potassium Chloride [K-Tab ER] 20 meq PO DAILY 04/11/16 Torsemide 100 mg PO DAILY 04/11/16 Current Medications Acetaminophen (Tylenol -) 650 mg PO Q6H PRN PRN Reason: FEVER OR PAIN Albuterol/Ipratropium (Duoneb -) 1 amp NEB Q6H PRN PRN Reason: SHORTNESS OF BREATH Amiodarone HCl (Cordarone -) 200 mg PO DAILY [facility] Brimonidine Tartrate (Alphagan 0.2% -) 1 drop OD BID [facility] Budesonide/Formoterol Fumarate (Symbicort 80/4.5mcg -) 2 puff IH BID [facility] Clonidine (Catapres -) 0.2 mg PO DAILY [facility] Folic Acid (Folic Acid -) 1 mg PO DAILY [facility] Hydralazine HCl (Apresoline -) 25 mg PO BID [facility] Metronidazole (Flagyl 500mg Premixed Ivpb -) 100 mls @ 100 mls/hr IVPB Q8H-IV [facility] Last Admin: 04/11/16 17:08 Dose: 100 mls/hr Sodium Chloride (Normal Saline -) 1,000 mls @ 83 mls/hr IV ASDIR [facility] Last Admin: 04/11/16 14:20 Dose: 83 mls/hr Sodium Chloride (Normal Saline -) 1,000 mls @ 100 mls/hr IV ASDIR [facility] Last Admin: 04/11/16 14:20 Dose: Not Given Piperacillin Sod/Tazobactam Sod (Zosyn 2.25gm Ivpb (Pre-Docked)) 50 mls @ 100 mls/hr IVPB Q8H-IV [facility] Last Admin: 04/11/16 17:08 Dose: 100 mls/hr Insulin Aspart (Novolog Vial Sliding Scale -) 1 vial SQ ACHS [facility] PRN Reason: Protocol Last Admin: 04/11/16 17:08 Dose: Not Given Isosorbide Dinitrate (Isordil -) 20 mg PO BID [facility] Levothyroxine Sodium (Synthroid -) 50 mcg PO DAILY@0700 [facility] Metoprolol Succinate (Toprol Xl -) 50 mg PO DAILY [facility] Morphine Sulfate (Morphine Injection -) 2 mg IVPUSH Q4H PRN PRN Reason: PAIN Timolol Maleate (Timoptic 0.5%) 1 drop OD BID [facility] Vital Signs - 24 hr 04/10/16 04/11/16 04/11/16 23:24 03:51 11:29 Temperature 97.4 F L Pulse Rate 70 Pulse Rate [ 77 72 Left] Respiratory 16 20 Rate Blood Pressure 107/68 Blood Pressure 126/56 104/58 [Arm] O2 Sat by Pulse 98 97 97 Oximetry (%) 04/11/16 04/11/16 04/11/16 12:00 13:00 14:00 Temperature 97.6 F 97.8 F 97.8 F Pulse Rate 64 65 76 Pulse Rate [ Left] Respiratory 21 21 19 Rate Blood Pressure 120/65 116/65 118/65 Blood Pressure [Arm] O2 Sat by Pulse 100 Oximetry (%) 04/11/16 16:00 Temperature 97.6 F Pulse Rate 78 Pulse Rate [ Left] Respiratory 22 Rate Blood Pressure 108/57 Blood Pressure [Arm] O2 Sat by Pulse Oximetry (%) Intake & Output 04/09/16 04/10/16 04/11/16 04/12/16 07:59 07:59 07:59 07:59 Intake Total 400 Output Total 400 1100 Balance -400 -700 Weight 215 lb 215 lb nad, no jvd irregular s1s2 no mrg cta bl nl eff aaox3 trace edema, no c/c abd nt nd pos bs pos dp pt no jaundice diaphoresis CBC, BMP 04/11/16 14:15 04/11/16 14:15 Laboratory Tests 04/11/16 04/11/16 05:40 14:15 INR 1.91 H Total Bilirubin 1.3 H D AST 11 L D ALT 8 L Alkaline Phosphatase 84 Albumin 2.0 L mibi 10/2014: no ischemia, sev reduced lvef echo 10/2014 ([facility] [place]): definity used. mild lve, lvef 45%, nl rv, mild AR, sev lae , nl rvsp EKG: SR with pvc's. AV conduction delay, IVCD. lateral T wave flattening, similar to priors. tele: SR with pac's/pvc's. cannot rule out intermittent afib. 75 m hx non obs cad (cath 10/2014: only mild disease RCA), remote [place] (mentioned in prior charts, no further details, pt unclear of hx), syst chf (NICM, mild dec lvef), htn, copd, dm, ckd (cr 2's), aflutter on eliquis, here with subcutaneous abscess/sepsis/CASE. aflutter - currently rate controlled on amiodarone and metoprolol - on eliquis as outpatient, currently on hold. While Cr > 2.5, would anticoagulate with heparin drip instead of eliquis once safe per surgery. - ongoing correction of electrolyte abnormalities NICM (EF ~ 45%) - Currently does not appear volume overloaded. IVF per renal with close monitoring of volume status. Daily weights/BMP - con't regimen of metoprolol, hydralazine, isordil - holding diurectics - reversal of anemia per pmd/surgery acute on chronic ckd - IVF as mentioned above, cr improving. Renal following. Mgm't of hyperkalemia per renal. - BUN > 100 and not improving, ? contribution from GIB. If does not come down consider repeating echo to assess for worsened EF/contribution from low cardiac output. - anemia work up per pmd HTN - bp on the low end. Would not give catapres. Monitor and consider need for further downtitration of regimen. On IVF. 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 - not on asa while hgb trending down. subcutaneous abscess, s/p I and D 04/11 - bp/hr stable post-op
[2016-04-11] MEDS ORDERED: BUMETANIDE 1 MG TABLET PO SCH (18:00)
[2016-04-11 20:27] LABS: MCH 28.2 pg (25.7-33.7); MCHC 31.8 g/dl (32.0-35.9); MEAN CELL VOLUME 88.5 fl (80-96); MEAN PLT VOLUME 8.9 fl (7.5-11.1); PLATELET COUNT 194 K/MM3 (134-434); RDW 18.1 % (11.9-15.9)
[2016-04-11 21:41] LABS: CALCIUM 8.3 mg/dL (8.5-10.1); CREATININE 4.5 mg/dL (0.7-1.3)
[2016-04-11] MEDS ORDERED: hydrALAZINE HCL 25 MG TABLET (FP) PO SCH ×2 (22:00)
[2016-04-11] MEDS ORDERED: BRIMONIDINE TARTRATE 0.2% OPHTHALMIC 5 ML BOTTLE OD SCH (22:00)
[2016-04-11] MEDS ORDERED: ISOSORBIDE DINITRATE 20 MG TABLET (FP) PO SCH (22:00)
[2016-04-11] MEDS ORDERED: TIMOLOL 0.5% OPHTHALMIC SOL 5 ML BOTTLE OD SCH (22:00)
[2016-04-11] MEDS ORDERED: PT OWN MED DRAWER 7, Y5N ONE (22:06)
[2016-04-12] MEDS: PIPERACILLIN/TAZOB 2.25 GM 50 ML IVPB SCH ×3 (01:25→17:40)
[2016-04-12] MEDS: METRONIDAZOLE 500 MG PREMIXED 100 ML IVPB SCH ×3 (01:25→17:40)
[2016-04-12] MEDS: INSULIN SLIDING SCALE (NOVOLOG) 1 VIAL SQ SCH ×4 (06:13→22:06)
[2016-04-12] MEDS: LEVOTHYROXINE NA 50 MCG TABLET (FP) PO SCH (06:14)
[2016-04-12 06:49] LABS: CALCIUM 8.1 mg/dL (8.5-10.1); CREATININE 4.2 mg/dL (0.7-1.3)
[2016-04-12 06:55] LABS: BASOPHIL 0.4 % (0-2.0); EOSINOPHIL 1.5 % (0-4.5); MCH 28.2 pg (25.7-33.7); MCHC 32.6 g/dl (32.0-35.9); MEAN CELL VOLUME 86.3 fl (80-96); MEAN PLT VOLUME 8.9 fl (7.5-11.1); NEUTROPHILS 82.4 % (42.8-82.8); PLATELET COUNT 193 K/MM3 (134-434); RDW 18.3 % (11.9-15.9); WHITE BLOOD COUNT 14.4 K/mm3 (4.0-10.0)
[2016-04-12 07:11] LABS: ALBUMIN 1.8 g/dl (3.4-5.0); BILIRUBIN,DIRECT 0.8 mg/dL (0.0-0.2); BILIRUBIN,TOTAL 1.4 mg/dL (0.2-1.0); TOT PROT 5.2 g/dl (6.4-8.2)
--- NOTE | 2016-04-12 08:17 | PN ---
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 (short form) - Note 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: Patient seen and examined in the ICU. anemia, (Hgb 6.8) did not bump to PRBC x1 receiving PRBC x1 this AM Denies: VILLEGAS/CP/SOB/N, no pain at surgical site Current Medications Acetaminophen (Tylenol -) 650 mg PO Q6H PRN PRN Reason: FEVER OR PAIN Albuterol/Ipratropium (Duoneb -) 1 amp NEB Q6H PRN PRN Reason: SHORTNESS OF BREATH Amiodarone HCl (Cordarone -) 200 mg PO DAILY [facility] Brimonidine Tartrate (Alphagan 0.2% -) 1 drop OD BID [facility] Last Admin: 04/11/16 22:13 Dose: 1 drop Budesonide/Formoterol Fumarate (Symbicort 80/4.5mcg -) 2 puff IH BID [facility] Last Admin: 04/11/16 22:13 Dose: 2 puff Folic Acid (Folic Acid -) 1 mg PO DAILY [facility] Hydralazine HCl (Apresoline -) 20 mg PO BID [facility] Last Admin: 04/11/16 22:09 Dose: 20 mg Metronidazole (Flagyl 500mg Premixed Ivpb -) 100 mls @ 100 mls/hr IVPB Q8H-IV [facility] Last Admin: 04/12/16 01:25 Dose: 100 mls/hr Sodium Chloride (Normal Saline -) 1,000 mls @ 83 mls/hr IV ASDIR [facility] Last Admin: 04/11/16 14:20 Dose: 83 mls/hr Sodium Chloride (Normal Saline -) 1,000 mls @ 100 mls/hr IV ASDIR [facility] Last Admin: 04/11/16 14:20 Dose: Not Given Piperacillin Sod/Tazobactam Sod (Zosyn 2.25gm Ivpb (Pre-Docked)) 50 mls @ 100 mls/hr IVPB Q8H-IV [facility] Last Admin: 04/12/16 01:25 Dose: 100 mls/hr Insulin Aspart (Novolog Vial Sliding Scale -) 1 vial SQ ACHS [facility] PRN Reason: Protocol Last Admin: 04/12/16 06:13 Dose: Not Given Isosorbide Dinitrate (Isordil -) 20 mg PO BIDISORDIL [facility] Levothyroxine Sodium (Synthroid -) 50 mcg PO DAILY@0700 [facility] Last Admin: 04/12/16 06:14 Dose: 50 mcg Metoprolol Succinate (Toprol Xl -) 50 mg PO DAILY [facility] Morphine Sulfate (Morphine Injection -) 2 mg IVPUSH Q4H PRN PRN Reason: PAIN Timolol Maleate (Timoptic 0.5%) 1 drop OD BID [facility] Last Admin: 04/11/16 22:12 Dose: 1 drop PERRL, no JVD CTA bilateral irr, irr no m/r/g Abd: SNTND, +BS Ext: WWP no edema Skin: wound vac with sang drainage Neuro: grossly intact Vital Signs Period Temp Pulse Resp BP Sys/Hubbard Pulse Ox Last 24 Hr 97.2 F-98.3 F 60-78 15-22 82-120/49-70 97-100 Intake & Output 04/09/16 04/10/16 04/11/16 04/12/16 23:59 23:59 23:59 23:59 Intake Total 1073.5 1097 Output Total 400 2200 600 Balance -400 -1126.5 497 Weight 97.522 kg 97.522 kg 96.9 kg CBCD WBC 14.4 K/mm3 (4.0-10.0) H 04/12/16 05:20 RBC 2.42 M/mm3 (4.00-5.60) L 04/12/16 05:20 Hgb 6.8 GM/dL (11.7-16.9) L* 04/12/16 05:20 Hct 20.9 % (35.4-49) L 04/12/16 05:20 MCV 86.3 fl (80-96) 04/12/16 05:20 MCHC 32.6 g/dl (32.0-35.9) 04/12/16 05:20 RDW 18.3 % (11.9-15.9) H 04/12/16 05:20 Plt Count 193 K/MM3 (134-434) 04/12/16 05:20 MPV 8.9 fl (7.5-11.1) 04/12/16 05:20 CMP Sodium 137 mmol/L (136-145) 04/12/16 05:20 Potassium 5.4 mmol/L (3.5-5.1) H 04/12/16 05:20 Chloride 102 mmol/L (98-107) 04/12/16 05:20 Carbon Dioxide 23 mmol/L (21-32) 04/12/16 05:20 Anion Gap 12 (8-16) 04/12/16 05:20 BUN 109 mg/dL (7-18) H* 04/12/16 05:20 Creatinine 4.2 mg/dL (0.7-1.3) H 04/12/16 05:20 Creat Clearance w eGFR 12.49 (>60) 04/11/16 14:15 Random Glucose 94 mg/dL (74-106) D 04/12/16 05:20 Calcium 8.1 mg/dL (8.5-10.1) L 04/12/16 05:20 Total Bilirubin 1.4 mg/dL (0.2-1.0) H 04/12/16 05:20 AST 10 U/L (15-37) L 04/12/16 05:20 ALT 7 U/L (12-78) L 04/12/16 05:20 Alkaline Phosphatase 66 U/L (45-117) D 04/12/16 05:20 Total Protein 5.2 g/dl (6.4-8.2) L 04/12/16 05:20 Albumin 1.8 g/dl (3.4-5.0) L 04/12/16 05:20 Microbiology 04/10/16 11:41 Blood - Peripheral Venous Blood Culture - Preliminary NO GROWTH OBTAINED AFTER 24 HOURS, INCUBATION TO CONTINUE FOR 4 DAYS. 04/10/16 11:50 Blood - Peripheral Venous Blood Culture - Preliminary NO GROWTH OBTAINED AFTER 24 HOURS, INCUBATION TO CONTINUE FOR 4 DAYS. 04/10/16 11:50 Back Gram Stain - Final 04/10/16 11:50 Back Wound Culture - Preliminary NO GROWTH OBTAINED AFTER 24 HOURS INCUBATION, REINCUBATED. 04/10/16 19:53 Abscess Gram Stain - Final Problem List - Problems (1) Abscess Code(s): L02.91 - CUTANEOUS ABSCESS, UNSPECIFIED (2) Acute on chronic renal failure Code(s): N17.9 - ACUTE KIDNEY FAILURE, UNSPECIFIED N18.9 - CHRONIC KIDNEY DISEASE, UNSPECIFIED (3) Leukocytosis Code(s): D72.829 - ELEVATED WHITE BLOOD CELL COUNT, UNSPECIFIED Qualifiers: Qualified Code(s): D72.829 - Elevated white blood cell count, unspecified (4) Anemia Code(s): D64.9 - ANEMIA, UNSPECIFIED Qualifiers: Qualified Code(s): D62 - Acute posthemorrhagic anemia (5) Congestive heart failure (CHF) Code(s): I50.9 - HEART FAILURE, UNSPECIFIED Qualifiers: Qualified Code(s): I50.22 - Chronic systolic (congestive) heart failure (6) DMII (diabetes mellitus, type 2) Code(s): E11.9 - TYPE 2 DIABETES MELLITUS WITHOUT COMPLICATIONS (7) HTN (hypertension) Code(s): I10 - ESSENTIAL (PRIMARY) HYPERTENSION Qualifiers: Qualified Code(s): I10 - Essential (primary) hypertension (8) Hyperkalemia Code(s): E87.5 - HYPERKALEMIA PLAN: -transfuse for Hgb >7.0 -q6-12 CBC -Hold diuretics per renal -medical management of hyperkalemia -IVF -renal diet -currently holding Eliquis, will restart heparin drip once bleeding has stopped and ok'd by surgery -wound vac:care per surgery -cont ABX per ID -Symbicort BID -cont ICU monitoring given bleeding Taylor ACNP Pulm/CCM CCT: 35m
[2016-04-12] MEDS ORDERED: PHYTONADIONE 10 MG/1 ML AMP IVPB ONE ×2 (08:26→10:45)
[2016-04-12] MEDS ORDERED: SODIUM POLYSTYRENE SULFONATE 15 GM/60 ML BOTTLE PO ONE (09:00)
--- NOTE | 2016-04-12 09:26 | PN ---
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 (short form) - Note 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: s/p operative debridement of abscess and vac placement yesterday gram stain with GPC clusters and pairs no complaints receiving blood transfusion vac container with bloody fluid Vital Signs Period Temp Pulse Resp BP Sys/Hubbard Pulse Ox Last 24 Hr 97.2 F-98.3 F 60-78 15-22 82-120/49-70 97-100 cor-rrr lungs clear abd soft,nt ext no edema folw with urine vac container- bloody fluid CBC, BMP 04/12/16 05:20 04/12/16 05:20 Microbiology 04/10/16 11:41 Blood - Peripheral Venous Blood Culture - Preliminary NO GROWTH OBTAINED AFTER 24 HOURS, INCUBATION TO CONTINUE FOR 4 DAYS. 04/10/16 11:50 Blood - Peripheral Venous Blood Culture - Preliminary NO GROWTH OBTAINED AFTER 24 HOURS, INCUBATION TO CONTINUE FOR 4 DAYS. 04/10/16 11:50 Back Gram Stain - Final 04/10/16 11:50 Back Wound Culture - Preliminary NO GROWTH OBTAINED AFTER 24 HOURS INCUBATION, REINCUBATED. 04/10/16 19:53 Abscess Gram Stain - Final Laboratory Tests 04/11/16 09:55 Random Vancomycin < 0.800 Current Medications Acetaminophen (Tylenol -) 650 mg PO Q6H PRN PRN Reason: FEVER OR PAIN Albuterol/Ipratropium (Duoneb -) 1 amp NEB Q6H PRN PRN Reason: SHORTNESS OF BREATH Amiodarone HCl (Cordarone -) 200 mg PO DAILY [facility] Budesonide/Formoterol Fumarate (Symbicort 80/4.5mcg -) 2 puff IH BID [facility] Last Admin: 04/11/16 22:13 Dose: 2 puff Folic Acid (Folic Acid -) 1 mg PO DAILY [facility] Hydralazine HCl (Apresoline -) 20 mg PO BID [facility] Last Admin: 04/11/16 22:09 Dose: 20 mg Metronidazole (Flagyl 500mg Premixed Ivpb -) 100 mls @ 100 mls/hr IVPB Q8H-IV [facility] Last Admin: 04/12/16 01:25 Dose: 100 mls/hr Sodium Chloride (Normal Saline -) 1,000 mls @ 83 mls/hr IV ASDIR [facility] Last Admin: 04/11/16 14:20 Dose: 83 mls/hr Sodium Chloride (Normal Saline -) 1,000 mls @ 100 mls/hr IV ASDIR [facility] Last Admin: 04/11/16 14:20 Dose: Not Given Piperacillin Sod/Tazobactam Sod (Zosyn 2.25gm Ivpb (Pre-Docked)) 50 mls @ 100 mls/hr IVPB Q8H-IV [facility] Last Admin: 04/12/16 01:25 Dose: 100 mls/hr Insulin Aspart (Novolog Vial Sliding Scale -) 1 vial SQ ACHS [facility] PRN Reason: Protocol Last Admin: 04/12/16 06:13 Dose: Not Given Isosorbide Dinitrate (Isordil -) 20 mg PO BIDISORDIL [facility] Levothyroxine Sodium (Synthroid -) 50 mcg PO DAILY@0700 [facility] Last Admin: 04/12/16 06:14 Dose: 50 mcg Metoprolol Succinate (Toprol Xl -) 50 mg PO DAILY [facility] Morphine Sulfate (Morphine Injection -) 2 mg IVPUSH Q4H PRN PRN Reason: PAIN a/p s/p drainage of abscess CASE anemia continue antibiotics redose vancomycin f/u cultures transfuse
[2016-04-12] MEDS: BUDESONIDE/FORMETEROL FUMARATE 80/4.5 mcg INHALER IH SCH ×2 (09:27→21:40)
[2016-04-12] MEDS: FOLIC ACID 1 MG TABLET (FP) PO SCH (09:27)
--- NOTE | 2016-04-12 09:33 | PN ---
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, Physician Chief Complaint: anemia, afib, chf History of Present Illness: denies sob, orthopnea, cp, palp, leg swelling - Current Medication List Current Medications: Active Medications Acetaminophen (Tylenol -) 650 mg PO Q6H PRN PRN Reason: FEVER OR PAIN Albuterol/Ipratropium (Duoneb -) 1 amp NEB Q6H PRN PRN Reason: SHORTNESS OF BREATH Amiodarone HCl (Cordarone -) 200 mg PO DAILY [facility] Last Admin: 04/12/16 09:26 Dose: 200 mg Budesonide/Formoterol Fumarate (Symbicort 80/4.5mcg -) 2 puff IH BID [facility] Last Admin: 04/12/16 09:27 Dose: 2 puff Folic Acid (Folic Acid -) 1 mg PO DAILY [facility] Last Admin: 04/12/16 09:27 Dose: 1 mg Hydralazine HCl (Apresoline -) 20 mg PO BID [facility] Last Admin: 04/11/16 22:09 Dose: 20 mg Metronidazole (Flagyl 500mg Premixed Ivpb -) 100 mls @ 100 mls/hr IVPB Q8H-IV [facility] Last Admin: 04/12/16 09:26 Dose: 100 mls/hr Sodium Chloride (Normal Saline -) 1,000 mls @ 83 mls/hr IV ASDIR [facility] Last Admin: 04/11/16 14:20 Dose: 83 mls/hr Sodium Chloride (Normal Saline -) 1,000 mls @ 100 mls/hr IV ASDIR [facility] Last Admin: 04/11/16 14:20 Dose: Not Given Piperacillin Sod/Tazobactam Sod (Zosyn 2.25gm Ivpb (Pre-Docked)) 50 mls @ 100 mls/hr IVPB Q8H-IV [facility] Last Admin: 04/12/16 09:26 Dose: 100 mls/hr Vancomycin HCl 1,000 mg/ (Dextrose) 250 mls @ 250 mls/hr IVPB ONCE ONE Stop: 04/12/16 10:25 Insulin Aspart (Novolog Vial Sliding Scale -) 1 vial SQ ACHS [facility] PRN Reason: Protocol Last Admin: 04/12/16 06:13 Dose: Not Given Isosorbide Dinitrate (Isordil -) 20 mg PO BIDISORDIL [facility] Levothyroxine Sodium (Synthroid -) 50 mcg PO DAILY@0700 [facility] Last Admin: 04/12/16 06:14 Dose: 50 mcg Metoprolol Succinate (Toprol Xl -) 50 mg PO DAILY [facility] Morphine Sulfate (Morphine Injection -) 2 mg IVPUSH Q4H PRN PRN Reason: PAIN - Objective Vital Signs: Vital Signs Temperature 97.5 F L 04/12/16 08:00 Pulse Rate 72 04/12/16 08:00 Respiratory Rate 18 04/12/16 08:00 Blood Pressure 93/50 04/12/16 08:00 O2 Sat by Pulse Oximetry (%) 100 04/11/16 20:17 Constitutional: Yes: Well Nourished, No Distress, Calm Cardiovascular: Yes: Regular Rate and Rhythm, S1, S2. No: JVD, Gallop, Murmur Respiratory: Yes: Regular, CTA Bilaterally. No: Accessory Muscle Use, Rales, Wheezes Extremities: No: Cold Edema: No Neurological: Yes: Alert, Oriented Psychiatric: No: Agitated Labs: CBC, BMP 04/12/16 05:20 04/12/16 05:20 INR, PTT INR 1.91 (0.82-1.09) H 04/11/16 05:40 - ....Imaging EKG: Other (tele: NSR) Assessment/Plan mibi 10/2014: no ischemia, sev reduced lvef [place] [place] definity used. mild lve, lvef 45%, nl rv, mild AR, sev lae , nl rvsp EKG: SR with pvc's. AV conduction delay, IVCD. lateral T wave flattening, similar to priors. tele: SR with pac's/pvc's. cannot rule out intermittent afib. 75 m hx non obs cad (cath 10/2014: only mild disease RCA), remote MO (mentioned in prior charts, no further details, pt unclear of hx), syst chf (NICM, mild dec lvef), htn, copd, dm, ckd (cr 2's), aflutter on eliquis, here with subcutaneous abscess/sepsis/CASE. aflutter - remains in sinus here - cont amiodarone (tsh, lft's ok) and metoprolol--would decr amio to 100 qd for this indication (lower risk of toxicity) - on eliquis as outpatient, currently on hold sec to anemia. - While Cr > 2.5, would anticoagulate with heparin drip instead of eliquis once safe per surgery. - ongoing correction of electrolyte abnormalities NICM (EF ~ 45%) - Currently does not appear volume overloaded. - cont IVF per renal with close monitoring of volume status. - con't regimen of metoprolol, hydralazine, isordil--hold parameters given due to low bp trend - will change toprol 50 qd to 25 bid (bid dosing for lv dysfxn, as well as gentler on BP)--titrate dose as outpt if bp allows - holding diuretics due to CASE - not on NORMAN/ARB previously, presumably due to advanced CKD and/or labile creatinines--defer to outpt cardio f/u (sees thread inspector in dr boateng office now) - reversal of anemia per pmd/surgery acute on chronic ckd - ? sec to sepsis, ? overtx (? inadvertently taking both torsemide and furosemide at home) - renal following, pt being hydrated with renal fxn improving - Mgm't of hyperkalemia per renal. - BUN 110s and not improving initially with fluid, ? if GIB (hgb steadily declining still) -04/12: bun starting to come down--cont cautious fluids as doing - rpt echo to assess for worsened EF/contribution from low cardiac output. - anemia work up per pmd anemia: -hgb drifting down to <7 -prbc's per surgery, crit care -check stool guaiac -consider GI eval--defer to pmd HTN - bp 80s-100s, holding meds non-obstructive CAD - Not on statin, will defer to outpatient thread inspector. - not on asa while hgb trending down. subcutaneous abscess, s/p I and D 04/11 - bp/hr stable post-op est crit care time 35 min
[2016-04-12] MEDS ORDERED: hydrALAZINE HCL 25 MG TABLET (FP) PO SCH (09:37)
[2016-04-12] MEDS ORDERED: METOPROLOL SUCCINATE 25 MG TAB.SR.24H (FP) PO SCH (10:00)
[2016-04-12] MEDS ORDERED: ISOSORBIDE DINITRATE 20 MG TABLET (FP) PO SCH (10:00)
[2016-04-12] MEDS ORDERED: METOPROLOL SUCCINATE 50 MG TAB.SR.24H (FP) PO SCH (10:00)
[2016-04-12] MEDS ORDERED: cloNIDine HCL 0.1 MG TABLET PO SCH (10:00)
[2016-04-12] MEDS ORDERED: AMIODARONE HCL 200 MG TABLET (FP) PO SCH (10:00)
[2016-04-12] MEDS ORDERED: VANCOMYCIN 1 GRAM (PRE-DOCKED) 250 ML IVPB ONE (10:00)
--- NOTE | 2016-04-12 10:35 | PN ---
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, Physician History of Present Illness: IN BED NO CP OR SOB - Current Medication List Current Medications: Active Medications Acetaminophen (Tylenol -) 650 mg PO Q6H PRN PRN Reason: FEVER OR PAIN Albuterol/Ipratropium (Duoneb -) 1 amp NEB Q6H PRN PRN Reason: SHORTNESS OF BREATH Amiodarone HCl (Cordarone -) 100 mg PO DAILY [facility] Brimonidine Tartrate (Alphagan 0.2% -) 1 drop OU BID [facility] Budesonide/Formoterol Fumarate (Symbicort 80/4.5mcg -) 2 puff IH BID [facility] [place] Last Admin: 04/12/16 09:27 Dose: 2 puff Folic Acid (Folic Acid -) 1 mg PO DAILY [facility] [place] Last Admin: 04/12/16 09:27 Dose: 1 mg Metronidazole (Flagyl 500mg Premixed Ivpb -) 100 mls @ 100 mls/hr IVPB Q8H-IV [facility] [place] Last Admin: 04/12/16 09:26 Dose: 100 mls/hr Sodium Chloride (Normal Saline -) 1,000 mls @ 83 mls/hr IV ASDIR [facility] [place] Last Admin: 04/11/16 14:20 Dose: 83 mls/hr Sodium Chloride (Normal Saline -) 1,000 mls @ 100 mls/hr IV ASDIR [facility] [place] Last Admin: 04/11/16 14:20 Dose: Not Given Piperacillin Sod/Tazobactam Sod (Zosyn 2.25gm Ivpb (Pre-Docked)) 50 mls @ 100 mls/hr IVPB Q8H-IV [facility] [place] Last Admin: 04/12/16 09:26 Dose: 100 mls/hr Vancomycin HCl (Vancomycin (Pre-Docked)) 250 mls @ 166.667 mls/hr IVPB ONCE ONE Stop: 04/12/16 11:29 Insulin Aspart (Novolog Vial Sliding Scale -) 1 vial SQ ACHS [facility] [place] PRN Reason: Protocol Last Admin: 04/12/16 06:13 Dose: Not Given Isosorbide Dinitrate (Isordil -) 20 mg PO BIDISORDIL [facility] [place] Levothyroxine Sodium (Synthroid -) 50 mcg PO DAILY@0700 [facility] [place] Last Admin: 04/12/16 06:14 Dose: 50 mcg Metoprolol Succinate (Toprol Xl -) 25 mg PO BID [facility] [place] Morphine Sulfate (Morphine Injection -) 2 mg IVPUSH Q4H PRN PRN Reason: PAIN - Objective Vital Signs: Vital Signs Temperature 97.5 F L 04/12/16 08:00 Pulse Rate 69 04/12/16 10:00 Respiratory Rate 18 04/12/16 10:00 Blood Pressure 105/55 04/12/16 10:00 O2 Sat by Pulse Oximetry (%) 100 04/11/16 20:17 Cardiovascular: Yes: S1, S2 Respiratory: Yes: Regular, CTA Bilaterally Gastrointestinal: Yes: Normal Bowel Sounds, Soft Edema: No Wound/Incision: Yes: Other (VAC DRESSING IN PLACE) Neurological: Yes: Alert, Oriented Labs: CBC, BMP 04/12/16 05:20 04/12/16 05:20 INR, PTT INR 1.91 (0.82-1.09) H 04/11/16 05:40 Problem List - Problems (1) Abscess Assessment/Plan: S/P I&D VAC IV ABX PER SURGERY Code(s): L02.91 - CUTANEOUS ABSCESS, UNSPECIFIED (2) Acute on chronic renal failure Assessment/Plan: WORSE THAN BASELINE MAYBE DUE SEPSIS MONITOR RENAL FUNCTION RENAL ON BOARD Code(s): N17.9 - ACUTE KIDNEY FAILURE, UNSPECIFIED N18.9 - CHRONIC KIDNEY DISEASE, UNSPECIFIED (3) DMII (diabetes mellitus, type 2) Assessment/Plan: BG Code(s): E11.9 - TYPE 2 DIABETES MELLITUS WITHOUT COMPLICATIONS Qualifiers: Diabetes mellitus complication detail: with other kidney complication (4) Anemia Assessment/Plan: H/O DIVERTICULAR BLEED IN 2016 TRANSFUSE FOLLOW LABS GI CONSULT Code(s): D64.9 - ANEMIA, UNSPECIFIED Qualifiers: Other causes of anemia: acute posthemorrhagic
[2016-04-12] MEDS: AMIODARONE HCL 200 MG TABLET (FP) PO SCH (10:36)
[2016-04-12] MEDS: ISOSORBIDE DINITRATE 20 MG TABLET (FP) PO SCH ×2 (10:37→17:29)
[2016-04-12] MEDS ORDERED: PHYTONADIONE 10 MG/1 ML AMP ONE (10:46)
--- NOTE | 2016-04-12 11:07 | PN ---
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, Physician History of Present Illness: Renal f/u Pt in no distress PRBCs being transfused No BM's as per nursing Stools for OB ordered - Current Medication List Current Medications: Active Medications Acetaminophen (Tylenol -) 650 mg PO Q6H PRN PRN Reason: FEVER OR PAIN Albuterol/Ipratropium (Duoneb -) 1 amp NEB Q6H PRN PRN Reason: SHORTNESS OF BREATH Amiodarone HCl (Cordarone -) 100 mg PO DAILY [facility] Last Admin: 04/12/16 10:36 Dose: 100 mg Brimonidine Tartrate (Alphagan 0.2% -) 1 drop OU BID [facility] Budesonide/Formoterol Fumarate (Symbicort 80/4.5mcg -) 2 puff IH BID [facility] Last Admin: 04/12/16 09:27 Dose: 2 puff Folic Acid (Folic Acid -) 1 mg PO DAILY [facility] Last Admin: 04/12/16 09:27 Dose: 1 mg Metronidazole (Flagyl 500mg Premixed Ivpb -) 100 mls @ 100 mls/hr IVPB Q8H-IV [facility] Last Admin: 04/12/16 09:26 Dose: 100 mls/hr Sodium Chloride (Normal Saline -) 1,000 mls @ 83 mls/hr IV ASDIR [facility] Last Admin: 04/11/16 14:20 Dose: 83 mls/hr Sodium Chloride (Normal Saline -) 1,000 mls @ 100 mls/hr IV ASDIR [facility] Last Admin: 04/11/16 14:20 Dose: Not Given Piperacillin Sod/Tazobactam Sod (Zosyn 2.25gm Ivpb (Pre-Docked)) 50 mls @ 100 mls/hr IVPB Q8H-IV [facility] Last Admin: 04/12/16 09:26 Dose: 100 mls/hr Vancomycin HCl (Vancomycin (Pre-Docked)) 250 mls @ 166.667 mls/hr IVPB ONCE ONE Stop: 04/12/16 11:29 Insulin Aspart (Novolog Vial Sliding Scale -) 1 vial SQ ACHS [facility] PRN Reason: Protocol Last Admin: 04/12/16 06:13 Dose: Not Given Isosorbide Dinitrate (Isordil -) 20 mg PO BIDISORDIL [facility] Last Admin: 04/12/16 10:37 Dose: Not Given Levothyroxine Sodium (Synthroid -) 50 mcg PO DAILY@0700 [facility] Last Admin: 04/12/16 06:14 Dose: 50 mcg Metoprolol Succinate (Toprol Xl -) 25 mg PO BID [facility] Last Admin: 04/12/16 10:37 Dose: Not Given Morphine Sulfate (Morphine Injection -) 2 mg IVPUSH Q4H PRN PRN Reason: PAIN - Objective Vital Signs: Vital Signs Temperature 97.5 F L 04/12/16 08:00 Pulse Rate 69 04/12/16 10:00 Respiratory Rate 18 04/12/16 10:00 Blood Pressure 105/55 04/12/16 10:00 O2 Sat by Pulse Oximetry (%) 100 04/11/16 20:17 Constitutional: Yes: No Distress Cardiovascular: Yes: S1, S2. No: JVD Respiratory: Yes: CTA Bilaterally Gastrointestinal: Yes: Soft. No: Tenderness, Rebound Edema: No Integumentary: Yes: Other (Left upper back with wound vac in place) Labs: CBC, BMP 04/12/16 05:20 04/12/16 05:20 INR, PTT INR 1.91 (0.82-1.09) H 04/11/16 05:40 Laboratory Tests 06/01/15 04/10/16 07:11 22:00 Creatinine 2.4 H Urine Color Ltyellow Urine Appearance Clear Urine pH 5.0 Ur Specific [place] 1.010 Urine Protein Negative Urine Glucose (UA) Negative Urine Ketones Negative Urine Blood Negative Urine Nitrite Negative Urine Bilirubin Negative Urine Urobilinogen Negative Ur Leukocyte Esterase Negative - ....Imaging Chest X-ray: Report Reviewed Ultrasound: Report Reviewed Assessment/Plan Impression CASE on CKD with atrophic kidneys and hyperkalemia. Serum Cr is trending down Sepsis with Cellulitis/abscess of back H/O Hypertension now with relatively low BP Worsening Anemia following debridement of the left upper back I and D R/O GIB CHF Hypothyroidism Hyperlipidemia COPD Plan Kayexalate as ordered Renal Diet PRBCs in progress Cautious IV hydration given H/O of CHF though pt is clinically compensated Rpt BMP at 4 pm to check K BB with parameters Dr Camp
[2016-04-12] MEDS: SODIUM CHLORIDE 1,000 ML IV SCH ×2 (11:18→17:40)
--- NOTE | 2016-04-12 12:09 | CONSULT ---
Consult Consult Specialty:: Hematology Reason for Consultation:: anemia - History of Present Illness History of Present Illness: 76 M consulted for anemia. He had an I&D and was treated with bactrim. Unfortunately later developed progressive abscess, CASE and underwent excisional debridment (04/11/16) of the left back skin and subcutaneous tissue. He is currently in the ICU for monitoring He also reports of previous PUD due to aspirin , leading to and EGD and stopping his aspirin. No recent hematochezia or osmar Comorbidities : CHF, HTN, HPL, COPD, hypothyroidism, NIDDM, CKD, Crohns, A- flutter on Eliquis, - History Source History Provided By: Patient, Medical Record Limitations to Obtaining History: Clinical Condition - Past Medical History Cardio/Vascular: Yes: CHF, HTN, Other (flutter) Pulmonary: Yes: COPD Gastrointestinal: Yes: Crohn's Disease Renal/: Yes: Renal Inusuff Endocrine: Yes: Diabetes Mellitus Additional Medical History: glaucoma - Alcohol/Substance Use Hx Alcohol Use: No - Smoking History Smoking history: Never smoked Have you smoked in the past 12 months: No - Social History Occupation: worked for the [employer] Home Medications - Allergies Allergies/Adverse Reactions: Allergies Allergy/AdvReac Type Severity Reaction Status Date / Time No Known Allergies Allergy Verified 04/10/16 11:57 - Home Medications Home Medications: Ambulatory Orders Amiodarone HCl 200 mg PO DAILY 04/11/16 Apixaban [Eliquis] 5 mg PO BID 04/11/16 Atorvastatin Ca [Lipitor] 10 mg PO DAILY 04/11/16 Hydralazine HCl 10 mg PO TID 04/11/16 Isosorbide Dinitrate [Isordil -] 20 mg PO TID 04/11/16 Metoprolol Succinate [Toprol Xl -] 50 mg PO DAILY 04/11/16 Potassium Chloride [K-Tab ER] 20 meq PO DAILY 04/11/16 Torsemide 100 mg PO DAILY 04/11/16 Family Disease History - Family Disease History Family Disease History: Diabetes: Father Review of Systems - Review of Systems Constitutional: reports: Weakness Eyes: reports: No Symptoms HENT: reports: No Symptoms Neck: reports: No Symptoms Cardiovascular: reports: No Symptoms Respiratory: reports: No Symptoms Gastrointestinal: reports: No Symptoms Genitourinary: reports: No Symptoms Musculoskeletal: reports: Back Pain Integumentary: reports: Rash Physical Exam Vital Signs: Vital Signs Temperature 97.5 F L 04/12/16 08:00 Pulse Rate 69 04/12/16 10:00 Respiratory Rate 18 04/12/16 10:00 Blood Pressure 105/55 04/12/16 10:00 O2 Sat by Pulse Oximetry (%) 100 04/11/16 20:17 Neck: Yes: Trachea Midline Cardiovascular: Yes: Regular Rate and Rhythm Respiratory: Yes: CTA Bilaterally Gastrointestinal: Yes: Soft Renal/: Yes: WNL Extremities: Yes: WNL Neurological: Yes: WNL Labs: CBC, BMP 04/12/16 05:20 04/12/16 05:20 Imaging - Results Chest X-ray: Report Reviewed Problem List - Problems (1) Anemia Code(s): D64.9 - ANEMIA, UNSPECIFIED Qualifiers: Other causes of anemia: chronic disease, kidney (2) CKD (chronic kidney disease), stage II Code(s): N18.2 - CHRONIC KIDNEY DISEASE, STAGE 2 (MILD) (3) Lower GI bleed Code(s): K92.2 - GASTROINTESTINAL HEMORRHAGE, UNSPECIFIED Assessment/Plan Anemia- Normocytic normochromic with a high RDW Suspect this to be a contribution of anemia of kidney disease, acute illness -Ordered iron studies, ferritin, LDH, B12 -He is being transfused 1 unit of blood to keep Hb>7 -agree with holding AC at this time -will continue to follow
--- NOTE | 2016-04-12 12:35 | PN ---
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 (short form) - Note 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: Anesthesiology Post-op POD #1 s/p I&D left shoulder wound under MAC. Pt. sitting-up comfortably in bed , eating lunch. Denies pain. Wound drain still actively draining. VSS, no apparent anesthesia-related complications.
--- NOTE | 2016-04-12 12:40 | PN ---
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 (short form) - Note 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: POD 1 Sharp excisional debridement, pulse irrigation of large necrotic abscess cavity of left back/shoulder causing sepsis and shock In ICU Afebrile BP 80-100/50-60s HR WNL 750ml of sanguinous drainage from VAC overnight Less drainage today Less sanguinous per report WBC improved Hgb 6.8 Received 1 U PRBC Receiving 2nd unit Vitamin K ordered Hold anticoagulation Serial H/H Transfuse as needed If persistent sanguinous drainage noted from VAC, remove VAC and apply wet to dry dressing to the area
--- NOTE | 2016-04-12 12:52 | PN ---
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 (short form) - Note 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: s/p I&D of left shoulder for abscess/necrotic tissue. He was noted to have a H& H drop with bleeding originally high from his wound vac. Over night it drained another 100. Today, I examined the drain earlier and then was seen 4 hours later to monitor vac outpt. It remains stable. He has received 2 units of PRBCs. He has no complaints of dizzinesss. Vital Signs Period Temp Pulse Resp BP Sys/Hubbard Pulse Ox Last 24 Hr 97.2 F-98.3 F 60-78 15-22 82-118/49-70 100 GEN: appears comfortable. Sitting upright eating lunch. Left wound vac: level unchanged at 300ml. tubing bloody. left shoulder no evidence of collecting hematoma/ecchymosis and wound vac dressing remains intact and working properly. CBC, BMP 04/12/16 05:20 04/12/16 05:20 Microbiology 04/10/16 21:17 Urine - Urine López Urine Culture - Final NO GROWTH OBTAINED 04/10/16 19:53 Abscess Gram Stain - Final 04/10/16 11:50 Back Gram Stain - Final 04/10/16 19:53 Abscess Wound Culture - Preliminary 04/10/16 11:50 Blood - Peripheral Venous Blood Culture - Preliminary NO GROWTH OBTAINED AFTER 48 HOURS, INCUBATION TO CONTINUE FOR 3 DAYS. 04/10/16 11:50 Back Wound Culture - Preliminary 04/10/16 11:41 Blood - Peripheral Venous Blood Culture - Preliminary NO GROWTH OBTAINED AFTER 48 HOURS, INCUBATION TO CONTINUE FOR 3 DAYS. Laboratory Tests 04/10/16 11:50 Potassium 5.6 H D Problem List - Problems (1) Abscess Assessment/Plan: s/p I&D 04/10 and 04/11 with debridment of necrotic tissue, wound vac placement Continue dressing for now, monitor outpt and placed order to discontinue vac if out pt >50 ml her hour. Repeat H&H to be drawn now. Culture NGTD Improved WBC Holding Eloquis, VIt K given with improved values of INR S/w Dr. Walker Code(s): L02.91 - CUTANEOUS ABSCESS, UNSPECIFIED (2) Acute on chronic renal failure Assessment/Plan: Renal function reveal slow improvements, Need for HD access as per renal Code(s): N17.9 - ACUTE KIDNEY FAILURE, UNSPECIFIED N18.9 - CHRONIC KIDNEY DISEASE, UNSPECIFIED
[2016-04-12 13:19] LABS: MCH 28.7 pg (25.7-33.7); MCHC 32.9 g/dl (32.0-35.9); MEAN CELL VOLUME 87.3 fl (80-96); MEAN PLT VOLUME 8.7 fl (7.5-11.1); PLATELET COUNT 179 K/MM3 (134-434); RDW 17.1 % (11.9-15.9); WHITE BLOOD COUNT 13.7 K/mm3 (4.0-10.0)
--- NOTE | 2016-04-12 13:43 | OP ---
DATE OF OPERATION: 04/11/2016 SURGEON: Timi Walker M.D. PREOPERATIVE DIAGNOSIS: Large necrotic left back/shoulder abscess with necrotic skin and subcutaneous tissue causing sepsis. POSTOPERATIVE DIAGNOSIS: Large necrotic left back/shoulder abscess with necrotic skin and subcutaneous tissue causing sepsis. SURGERY: Sharp excisional debridement of necrotic left back/shoulder skin and subcutaneous tissue, pulse irrigation and washout, and vacuum-assisted closure placement. FINDINGS: Necrotic abscess cavity with necrotic tissue and foul-smelling drainage. The cavity was approximately 12-cm x 10-cm x 3-cm in size. ANESTHESIA: MAC. SPECIMENS REMOVED: Necrotic skin and subcutaneous tissue. ESTIMATED BLOOD LOSS: 10 mL. DRAINS: VAC. REASON FOR PROCEDURE: This is a 76-year-old gentleman who presented to the emergency room the day prior with signs of sepsis. On examination he was found to have a large back/left shoulder abscess cavity with necrotic and foul-smelling discharge. This was incised and drained at the bedside after obtaining consent in the emergency room. Copious amounts of purulent necrotic drainage were noted. Cultures were taken and the wound was packed. In order to further debride the overlying necrotic skin and clean the cavity, the patient was consented for the next day once he was further optimized from both a medical standpoint, renal standpoint, and received further intravenous fluid resuscitation for a sharp excisional debridement of the necrotic skin and subcutaneous tissue, pulse irrigation of the cavity, and a VAC placement. The risks and benefits of the procedure were explained, and these included bleeding, persistent infection, prolonged wound healing, injury to surrounding structures, nerve injury, vessel injury, NM, DVT, PE, and as some of the possible complications. He understood and signed informed consent. DESCRIPTION OF PROCEDURE: The patient was brought to the operating room. He underwent MAC by Anesthesia. The patient was placed in right lateral decubitus position with the left shoulder up. The area was prepped and draped with Betadine in the usual sterile fashion. A time-out was performed. The overlying necrotic skin was excised using a 10-blade scalpel by performing sharp excisional debridement. The underlying gangrenous and necrotic tissue was also excised with sharp debridement as well. The wound was pulse irrigated with solution mixed with Betadine. Two liters of the solution was used. Hemostasis was noted. A VAC dressing was placed with a black sponge. The VAC was placed to 125 mmHg continuous pressure. The patient was transferred to the ICU for further management. He was stable throughout the case. Again the patient tolerated the procedure well, but still displayed signs of sepsis and needed further intravenous fluid resuscitation, further management of his acute on chronic kidney insufficiency by Renal, continuous antibiotics, and management of his coagulopathy. He will be followed closely in the intensive care unit. Rox SINGH/[id number] MTDD
[2016-04-12 17:59] LABS: CALCIUM 7.8 mg/dL (8.5-10.1); CREATININE 3.9 mg/dL (0.7-1.3); MAGNESIUM 1.8 mg/dL (1.8-2.4)
[2016-04-12] MEDS: ACETAMINOPHEN 325 MG TABLET (FP) PO PRN (21:36)
[2016-04-12] MEDS: BRIMONIDINE TARTRATE 0.2% OPHTHALMIC 5 ML BOTTLE OU SCH (21:39)
[2016-04-12] MEDS: METOPROLOL SUCCINATE 25 MG TAB.SR.24H (FP) PO SCH (21:41)
[2016-04-13] MEDS: PIPERACILLIN/TAZOB 2.25 GM 50 ML IVPB SCH ×3 (02:00→18:01)
[2016-04-13] MEDS: METRONIDAZOLE 500 MG PREMIXED 100 ML IVPB SCH ×3 (02:00→18:00)
[2016-04-13] MEDS: SODIUM CHLORIDE 1,000 ML IV SCH ×4 (02:58→14:19)
[2016-04-13 05:39] LABS: MCH 28.2 pg (25.7-33.7); MCHC 32.8 g/dl (32.0-35.9); MEAN PLT VOLUME 8.3 fl (7.5-11.1); PLATELET COUNT 204 K/MM3 (134-434); RDW 17.9 % (11.9-15.9); WHITE BLOOD COUNT 11.5 K/mm3 (4.0-10.0)
[2016-04-13 05:54] LABS: INR 1.3 (0.82-1.09); PROTHROMBIN TIME (PATIENT) 14.4 SEC (9.98-11.88)
[2016-04-13 05:57] LABS: ACTIVATED PTT 30.6 SECONDS (26.9-34.4)
[2016-04-13 06:03] LABS: CALCIUM 7.9 mg/dL (8.5-10.1); CREATININE 3.8 mg/dL (0.7-1.3); MAGNESIUM 1.9 mg/dL (1.8-2.4); PHOSPHOROUS 3.6 mg/dL (2.5-4.9)
[2016-04-13] MEDS: INSULIN SLIDING SCALE (NOVOLOG) 1 VIAL SQ SCH ×4 (06:06→22:30)
[2016-04-13] MEDS: LEVOTHYROXINE NA 50 MCG TABLET (FP) PO SCH (06:33)
--- NOTE | 2016-04-13 06:58 | PN ---
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 (short form) - Note 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: Seen and examined in the ICU Received PRCB x2 hgb slightly down this AM BP stable Active Medications Acetaminophen (Tylenol -) 650 mg PO Q6H PRN PRN Reason: FEVER OR PAIN Last Admin: 04/12/16 21:36 Dose: 650 mg Albuterol/Ipratropium (Duoneb -) 1 amp NEB Q6H PRN PRN Reason: SHORTNESS OF BREATH Amiodarone HCl (Cordarone -) 100 mg PO DAILY [facility] Last Admin: 04/12/16 10:36 Dose: 100 mg Brimonidine Tartrate (Alphagan 0.2% -) 1 drop OU BID [facility] Last Admin: 04/12/16 21:39 Dose: 1 drop Budesonide/Formoterol Fumarate (Symbicort 80/4.5mcg -) 2 puff IH BID [facility] Last Admin: 04/12/16 21:40 Dose: 2 puff Folic Acid (Folic Acid -) 1 mg PO DAILY [facility] Last Admin: 04/12/16 09:27 Dose: 1 mg Metronidazole (Flagyl 500mg Premixed Ivpb -) 100 mls @ 100 mls/hr IVPB Q8H-IV [facility] Last Admin: 04/13/16 02:00 Dose: 100 mls/hr Sodium Chloride (Normal Saline -) 1,000 mls @ 83 mls/hr IV ASDIR [facility] Last Admin: 04/13/16 02:58 Dose: 83 mls/hr Sodium Chloride (Normal Saline -) 1,000 mls @ 100 mls/hr IV ASDIR [facility] Last Admin: 04/11/16 14:20 Dose: Not Given Piperacillin Sod/Tazobactam Sod (Zosyn 2.25gm Ivpb (Pre-Docked)) 50 mls @ 100 mls/hr IVPB Q8H-IV [facility] Last Admin: 04/13/16 02:00 Dose: 100 mls/hr Insulin Aspart (Novolog Vial Sliding Scale -) 1 vial SQ ACHS [facility] PRN Reason: Protocol Last Admin: 04/13/16 06:06 Dose: Not Given Isosorbide Dinitrate (Isordil -) 20 mg PO BIDISORDIL [facility] Last Admin: 04/12/16 17:29 Dose: Not Given Levothyroxine Sodium (Synthroid -) 50 mcg PO DAILY@0700 [facility] Last Admin: 04/13/16 06:33 Dose: 50 mcg Metoprolol Succinate (Toprol Xl -) 25 mg PO BID [facility] Last Admin: 04/12/16 21:41 Dose: Not Given Morphine Sulfate (Morphine Injection -) 2 mg IVPUSH Q4H PRN PRN Reason: PAIN Vital Signs Period Temp Pulse Resp BP Sys/Hubbard Pulse Ox Last 24 Hr 97.3 F-98.8 F 64-74 16-20 90-116/49-79 96 Intake & Output 04/10/16 04/11/16 04/12/16 04/13/16 23:59 23:59 23:59 23:59 Intake Total 1073.5 2979 931 Output Total 400 2200 1900 700 Balance -400 -1126.5 1079 231 Weight 97.522 kg 97.522 kg 96.9 kg 99.11 kg Exam: PERRL CV: RRR no m/r/g/ Pulm: CTA Abd: SNTND Skin: wound vac in place Neuro: grossly intact CBCD WBC 11.5 K/mm3 (4.0-10.0) H 04/13/16 05:20 RBC 2.56 M/mm3 (4.00-5.60) L 04/13/16 05:20 Hgb 7.2 GM/dL (11.7-16.9) L 04/13/16 05:20 Hct 22.0 % (35.4-49) L 04/13/16 05:20 MCV 86.0 fl (80-96) 04/13/16 05:20 MCHC 32.8 g/dl (32.0-35.9) 04/13/16 05:20 RDW 17.9 % (11.9-15.9) H 04/13/16 05:20 Plt Count 204 K/MM3 (134-434) 04/13/16 05:20 MPV 8.3 fl (7.5-11.1) 04/13/16 05:20 CMP Sodium 139 mmol/L (136-145) 04/13/16 05:20 Potassium 4.6 mmol/L (3.5-5.1) 04/13/16 05:20 Chloride 105 mmol/L (98-107) 04/13/16 05:20 Carbon Dioxide 23 mmol/L (21-32) 04/13/16 05:20 Anion Gap 11 (8-16) 04/13/16 05:20 BUN 96 mg/dL (7-18) H 04/13/16 05:20 Creatinine 3.8 mg/dL (0.7-1.3) H 04/13/16 05:20 Creat Clearance w eGFR 12.49 (>60) 04/11/16 14:15 Random Glucose 100 mg/dL (74-106) 04/13/16 05:20 Calcium 7.9 mg/dL (8.5-10.1) L 04/13/16 05:20 Total Bilirubin 1.4 mg/dL (0.2-1.0) H 04/12/16 05:20 AST 10 U/L (15-37) L 04/12/16 05:20 ALT 7 U/L (12-78) L 04/12/16 05:20 Alkaline Phosphatase 66 U/L (45-117) D 04/12/16 05:20 Total Protein 5.2 g/dl (6.4-8.2) L 04/12/16 05:20 Albumin 1.8 g/dl (3.4-5.0) L 04/12/16 05:20 Microbiology 04/10/16 11:50 Back Gram Stain - Final 04/10/16 11:50 Back Wound Culture - Preliminary 04/10/16 11:41 Blood - Peripheral Venous Blood Culture - Preliminary NO GROWTH OBTAINED AFTER 48 HOURS, INCUBATION TO CONTINUE FOR 3 DAYS. 04/10/16 11:50 Blood - Peripheral Venous Blood Culture - Preliminary NO GROWTH OBTAINED AFTER 48 HOURS, INCUBATION TO CONTINUE FOR 3 DAYS. 04/10/16 19:53 Abscess Gram Stain - Final 04/10/16 19:53 Abscess Wound Culture - Preliminary 04/10/16 21:17 Urine - Urine López Urine Culture - Final NO GROWTH OBTAINED Problem List - Problems (1) Abscess Code(s): L02.91 - CUTANEOUS ABSCESS, UNSPECIFIED (2) Acute on chronic renal failure Code(s): N17.9 - ACUTE KIDNEY FAILURE, UNSPECIFIED N18.9 - CHRONIC KIDNEY DISEASE, UNSPECIFIED (3) Leukocytosis Code(s): D72.829 - ELEVATED WHITE BLOOD CELL COUNT, UNSPECIFIED Qualifiers: Qualified Code(s): D72.829 - Elevated white blood cell count, unspecified (4) Anemia Code(s): D64.9 - ANEMIA, UNSPECIFIED Qualifiers: Qualified Code(s): D62 - Acute posthemorrhagic anemia (5) Congestive heart failure (CHF) Code(s): I50.9 - HEART FAILURE, UNSPECIFIED Qualifiers: Qualified Code(s): I50.22 - Chronic systolic (congestive) heart failure (6) DMII (diabetes mellitus, type 2) Code(s): E11.9 - TYPE 2 DIABETES MELLITUS WITHOUT COMPLICATIONS (7) HTN (hypertension) Code(s): I10 - ESSENTIAL (PRIMARY) HYPERTENSION Qualifiers: Qualified Code(s): I10 - Essential (primary) hypertension (8) Hyperkalemia Code(s): E87.5 - HYPERKALEMIA PLAN: -transfuse for Hgb >7.0 -12 CBC -Hold diuretics per renal -medical management of hyperkalemia -IVF -renal diet -currently holding Eliquis, will restart heparin drip once bleeding has stopped and ok'd by surgery -wound vac:care per surgery -cont ABX per ID -Symbicort BID -stable for floor transfer Taylor HINES Pulm/CCM CCT: 35m
--- NOTE | 2016-04-13 08:34 | PN ---
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 (short form) - Note 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: awake and alert eating breakfast Vital Signs Period Temp Pulse Resp BP Sys/Hubbard Pulse Ox Last 24 Hr 97.3 F-98.8 F 64-77 16-22 90-116/49-79 96-100 cor-rrr lungs clear abd soft,nt ext no edema vac intact CBC, BMP 04/13/16 05:20 04/13/16 05:20 Microbiology 04/10/16 11:50 Back Gram Stain - Final 04/10/16 11:50 Back Wound Culture - Preliminary 04/10/16 11:41 Blood - Peripheral Venous Blood Culture - Preliminary NO GROWTH OBTAINED AFTER 48 HOURS, INCUBATION TO CONTINUE FOR 3 DAYS. 04/10/16 11:50 Blood - Peripheral Venous Blood Culture - Preliminary NO GROWTH OBTAINED AFTER 48 HOURS, INCUBATION TO CONTINUE FOR 3 DAYS. 04/10/16 19:53 Abscess Gram Stain - Final 04/10/16 19:53 Abscess Wound Culture - Preliminary 04/10/16 21:17 Urine - Urine López Urine Culture - Final NO GROWTH OBTAINED Current Medications Acetaminophen (Tylenol -) 650 mg PO Q6H PRN PRN Reason: FEVER OR PAIN Last Admin: 04/12/16 21:36 Dose: 650 mg Albuterol/Ipratropium (Duoneb -) 1 amp NEB Q6H PRN PRN Reason: SHORTNESS OF BREATH Amiodarone HCl (Cordarone -) 100 mg PO DAILY [facility] Last Admin: 04/12/16 10:36 Dose: 100 mg Brimonidine Tartrate (Alphagan 0.2% -) 1 drop OU BID [facility] Last Admin: 04/12/16 21:39 Dose: 1 drop Budesonide/Formoterol Fumarate (Symbicort 80/4.5mcg -) 2 puff IH BID [facility] Last Admin: 04/12/16 21:40 Dose: 2 puff Folic Acid (Folic Acid -) 1 mg PO DAILY [facility] Last Admin: 04/12/16 09:27 Dose: 1 mg Metronidazole (Flagyl 500mg Premixed Ivpb -) 100 mls @ 100 mls/hr IVPB Q8H-IV [facility] Last Admin: 04/13/16 02:00 Dose: 100 mls/hr Sodium Chloride (Normal Saline -) 1,000 mls @ 83 mls/hr IV ASDIR [facility] Last Admin: 04/13/16 02:58 Dose: 83 mls/hr Sodium Chloride (Normal Saline -) 1,000 mls @ 100 mls/hr IV ASDIR [facility] Last Admin: 04/11/16 14:20 Dose: Not Given Piperacillin Sod/Tazobactam Sod (Zosyn 2.25gm Ivpb (Pre-Docked)) 50 mls @ 100 mls/hr IVPB Q8H-IV [facility] Last Admin: 04/13/16 02:00 Dose: 100 mls/hr Insulin Aspart (Novolog Vial Sliding Scale -) 1 vial SQ ACHS [facility] PRN Reason: Protocol Last Admin: 04/13/16 06:06 Dose: Not Given Isosorbide Dinitrate (Isordil -) 20 mg PO BIDISORDIL [facility] Last Admin: 04/12/16 17:29 Dose: Not Given Levothyroxine Sodium (Synthroid -) 50 mcg PO DAILY@0700 [facility] Last Admin: 04/13/16 06:33 Dose: 50 mcg Metoprolol Succinate (Toprol Xl -) 25 mg PO BID [facility] Last Admin: 04/12/16 21:41 Dose: Not Given Morphine Sulfate (Morphine Injection -) 2 mg IVPUSH Q4H PRN PRN Reason: PAIN a/p s/p drainage of back wound - vac intact CASE- improving continue zosyn/flagyl f/u cultures
[2016-04-13] MEDS ORDERED: PT OWN MED DRAWER 7, Y5N ONE (09:17)
[2016-04-13] MEDS: AMIODARONE HCL 200 MG TABLET (FP) PO SCH (09:20)
[2016-04-13] MEDS: BRIMONIDINE TARTRATE 0.2% OPHTHALMIC 5 ML BOTTLE OU SCH ×2 (09:20→22:28)
[2016-04-13] MEDS: METOPROLOL SUCCINATE 25 MG TAB.SR.24H (FP) PO SCH ×2 (09:22→22:18)
[2016-04-13] MEDS: FOLIC ACID 1 MG TABLET (FP) PO SCH (09:22)
[2016-04-13] MEDS: BUDESONIDE/FORMETEROL FUMARATE 80/4.5 mcg INHALER IH SCH ×2 (09:22→22:26)
[2016-04-13] MEDS: ISOSORBIDE DINITRATE 20 MG TABLET (FP) PO SCH ×2 (09:23→18:00)
--- NOTE | 2016-04-13 09:40 | PN ---
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 (short form) - Note 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: s: no overnight events; denies sob, orthopnea, cp, palp, leg swelling, dizzy - Current Medication List Current Medications Generic Name Dose Route Start Last Admin Trade Name Frekatie PRN Reason Stop Dose Admin Acetaminophen 650 mg 04/11/16 14:19 04/12/16 21:36 Tylenol - PO 650 mg Q6H PRN Administration FEVER OR PAIN Albuterol/Ipratropium 1 amp 04/11/16 14:19 Duoneb - NEB Q6H PRN SHORTNESS OF BREATH Amiodarone HCl 100 mg 04/12/16 10:00 04/13/16 09:20 Cordarone - PO 100 mg DAILY [facility] Administration Brimonidine Tartrate 1 drop 04/12/16 22:00 04/13/16 09:20 Alphagan 0.2% - OU 1 drop BID [facility] Administration Budesonide/Formoterol Fumarate 2 puff 04/11/16 22:00 04/13/16 09:22 Symbicort 80/4.5mcg - IH 2 puff BID [facility] Administration Folic Acid 1 mg 04/12/16 10:00 04/13/16 09:22 Folic Acid - PO 1 mg DAILY [facility] Administration Metronidazole 100 mls @ 100 mls/hr 04/11/16 18:00 04/13/16 09:21 Flagyl 500mg Premixed Ivpb - IVPB 100 mls/hr Q8H-IV [facility] Administration Sodium Chloride 1,000 mls @ 83 mls/hr 04/11/16 14:19 04/13/16 02:58 Normal Saline - IV 83 mls/hr ASDIR [facility] Administration Sodium Chloride 1,000 mls @ 100 mls/hr 04/11/16 14:19 04/11/16 14:20 Normal Saline - IV Not Given ASDIR [facility] Piperacillin Sod/Tazobactam Sod 50 mls @ 100 mls/hr 04/11/16 18:00 04/13/16 09: 21 Zosyn 2.25gm Ivpb (Pre-Docked) IVPB 100 mls/hr Q8H-IV [facility] Administration Insulin Aspart 1 vial 04/11/16 16:30 04/13/16 06:06 Novolog Vial Sliding Scale - SQ Not Given ACHS [facility] Protocol Isosorbide Dinitrate 20 mg 04/12/16 10:00 04/13/16 09:23 Isordil - PO 20 mg BIDISORDIL [facility] Administration Levothyroxine Sodium 50 mcg 04/12/16 07:00 04/13/16 06:33 Synthroid - PO 50 mcg DAILY@0700 [facility] Administration Metoprolol Succinate 25 mg 04/12/16 11:24 04/13/16 09:22 Toprol Xl - PO 25 mg BID [facility] Administration Morphine Sulfate 2 mg 04/11/16 15:45 Morphine Injection - IVPUSH Q4H PRN PAIN - Objective Vital Signs: Vital Signs Temp 98.0 F 04/13/16 08:00 Pulse 77 04/13/16 08:00 Resp 22 04/13/16 08:00 BP 110/67 04/13/16 08:00 Pulse Ox 100 04/13/16 08:00 Intake & Output 04/12/16 04/12/16 04/13/16 11:59 23:59 11:59 Intake Total 1097 1882 931 Output Total 600 1300 700 Balance 497 582 231 Weight 213 lb 10.047 oz 218 lb 8 oz Intake: IV 747 1132 581 Normal Saline - 1,000 ml 747 @ 83 mls/hr IV ASDIR [facility] Rx#:[id number] Normal Saline - 1,000 ml 800 @ 100 mls/hr IV ASDIR [facility] Rx#:[id number] normal saline at 83cc 332 581 IVPB 550 150 Oral 200 200 Packed Cells 350 Output: Drainage 200 100 WOUND VAC 200 100 Urine 600 1100 600 López 600 1100 600 Other: Voiding Method Indwelling Catheter Indwelling Catheter Indwelling Catheter Bowel Movement Yes: lg liq br # Bowel Movements 1 Weight Measurement Method Built in [facility] Built in [facility] Constitutional: Yes: Well Nourished, No Distress, Calm Cardiovascular: Yes: Regular Rate and Rhythm, S1, S2. No: JVD, Gallop, Murmur Respiratory: Yes: Regular, CTA Bilaterally. No: Accessory Muscle Use, Rales, Wheezes Extremities: No: Cold Edema: No Neurological: Yes: Alert, Oriented Psychiatric: No: Agitated no jaundice diaphoresis Labs: Laboratory Last Values WBC 11.5 K/mm3 (4.0-10.0) H 04/13/16 05:20 RBC 2.56 M/mm3 (4.00-5.60) L 04/13/16 05:20 Hgb 7.2 GM/dL (11.7-16.9) L 04/13/16 05:20 Hct 22.0 % (35.4-49) L 04/13/16 05:20 MCV 86.0 fl (80-96) 04/13/16 05:20 MCHC 32.8 g/dl (32.0-35.9) 04/13/16 05:20 RDW 17.9 % (11.9-15.9) H 04/13/16 05:20 Plt Count 204 K/MM3 (134-434) 04/13/16 05:20 MPV 8.3 fl (7.5-11.1) 04/13/16 05:20 Neutrophils % 82.4 % (42.8-82.8) 04/12/16 05:20 Lymphocytes % 4.6 % (8-40) L D 04/12/16 05:20 Monocytes % 11.1 % (3.8-10.2) H 04/12/16 05:20 Eosinophils % 1.5 % (0-4.5) D 04/12/16 05:20 Basophils % 0.4 % (0-2.0) 04/12/16 05:20 Band Neutrophils 2.0 % (0-10) D 04/11/16 05:40 Differential Comment Manual diff done 04/11/16 05:40 Toxic Granulation 3+ 04/11/16 05:40 Poikilocytosis 4+ 04/11/16 05:40 Anisocytosis 2+ 04/11/16 05:40 Macrocytosis 3+ 04/11/16 05:40 Ovalocytes 2+ 04/11/16 05:40 [place] Cells 4+ 04/11/16 05:40 Acanthocytes (Spur) 2+ 04/11/16 05:40 Fragmented RBCs 2+ 04/11/16 05:40 Morphology Comment Slide scanned 04/11/16 05:40 ESR 40 mm/hr (0-20) H 04/10/16 19:00 INR 1.30 (0.82-1.09) H D 04/13/16 05:20 PTT (Actin FS) 30.6 SECONDS (26.9-34.4) 04/13/16 05:20 Sodium 139 mmol/L (136-145) 04/13/16 05:20 Potassium 4.6 mmol/L (3.5-5.1) 04/13/16 05:20 Chloride 105 mmol/L (98-107) 04/13/16 05:20 Carbon Dioxide 23 mmol/L (21-32) 04/13/16 05:20 Anion Gap 11 (8-16) 04/13/16 05:20 BUN 96 mg/dL (7-18) H 04/13/16 05:20 Creatinine 3.8 mg/dL (0.7-1.3) H 04/13/16 05:20 Creat Clearance w eGFR 12.49 (>60) 04/11/16 14:15 POC Glucometer 125.15351 UNITS (()) 04/13/16 05:32 Random Glucose 100 mg/dL (74-106) 04/13/16 05:20 Calcium 7.9 mg/dL (8.5-10.1) L 04/13/16 05:20 Phosphorus 3.6 mg/dL (2.5-4.9) 04/13/16 05:20 Magnesium 1.9 mg/dL (1.8-2.4) 04/13/16 05:20 Ferritin Cancelled 04/13/16 05:20 Total Bilirubin 1.4 mg/dL (0.2-1.0) H 04/12/16 05:20 Direct Bilirubin 0.8 mg/dL (0.0-0.2) H 04/12/16 05:20 AST 10 U/L (15-37) L 04/12/16 05:20 ALT 7 U/L (12-78) L 04/12/16 05:20 Alkaline Phosphatase 66 U/L (45-117) D 04/12/16 05:20 LD Total 145 U/L (87-241) 04/13/16 05:20 C-Reactive Protein Cancelled 04/11/16 08:44 Total Protein 5.2 g/dl (6.4-8.2) L 04/12/16 05:20 Albumin 1.8 g/dl (3.4-5.0) L 04/12/16 05:20 Vitamin B12 3575 pg/ml (180-914) H D 04/12/16 17:00 Serum Folate 31 ng/ml (3.1-17.5) H 04/12/16 17:00 Urine Color Ltyellow 04/10/16 22:00 Urine Appearance Clear 04/10/16 22:00 Urine pH 5.0 (5.0-8.0) 04/10/16 22:00 Ur Specific [place] 1.010 (1.001-1.035) 04/10/16 22:00 Urine Protein Negative (NEGATIVE) 04/10/16 22:00 Urine Glucose (UA) Negative (NEGATIVE) 04/10/16 22:00 Urine Clinitest Cancelled 04/10/16 19:53 Urine Ketones Negative (NEGATIVE) 04/10/16 22:00 Urine Blood Negative (NEGATIVE) 04/10/16 22:00 Urine Nitrite Negative (NEGATIVE) 04/10/16 22:00 Urine Bilirubin Negative (NEGATIVE) 04/10/16 22:00 Urine Ictotest Cancelled 04/10/16 19:53 Prot Sulfosalicylic Acd Cancelled 04/10/16 19:53 Urine Urobilinogen Negative E.U./dl (0.2-1.0) 04/10/16 22:00 Ur Leukocyte Esterase Negative (NEGATIVE) 04/10/16 22:00 Ur Random Sodium 44 MMOL/L 04/10/16 22:00 Ur Random Potassium 32.2 MMOL/L 04/10/16 22:00 Ur Random Chloride 66 MMOL/L 04/10/16 22:00 Ur Random Urea Nitrogn Cancelled 04/10/16 19:53 Urine Creatinine 36.2 mg/dL 04/10/16 22:00 Stool Occult Blood Negative (NEGATIVE) 04/12/16 21:46 Random Vancomycin < 0.800 ug/ml 04/11/16 09:55 Blood Type A POSITIVE 04/10/16 11:50 Antibody Screen Negative 04/10/16 11:50 Crossmatch See Detail 04/10/16 11:50 - ....Imaging EKG: Other (tele: SR) mibi 10/2014: no ischemia, sev [place] [place] used. mild lve, lvef 45%, nl rv, mild AR, sev lae , nl rvsp EKG: SR with pvc's. AV conduction delay, IVCD. lateral T wave flattening, similar to priors. tele: SR with pac's/pvc's. cannot rule out intermittent afib. est cct 32 mins a/p: 75 m hx non obs cad (cath 10/2014: only mild disease RCA), remote AK ( mentioned in prior charts, no further details, pt unclear of hx), syst chf (NICM , mild dec lvef), htn, copd, dm, ckd (cr 2's), aflutter on eliquis, here with subcutaneous abscess/sepsis/CASE. aflutter - remains in sinus here - cont amiodarone (tsh, lft's ok) and metoprolol - on eliquis as outpatient, currently on hold sec to anemia. - While Cr > 2.5, would anticoagulate with heparin drip instead of eliquis once safe per surgery--for now ac on hold due to anemia - ongoing correction of electrolyte abnormalities NICM (EF ~ 45%) - Currently does not appear volume overloaded. - cont IVF per renal with close monitoring of volume status. - con't regimen of metoprolol, hydralazine, isordil--hold parameters given due to low bp trend - changed toprol 50 qd to 25 bid (bid dosing for lv dysfxn, as well as gentler on BP)--titrate dose as outpt if bp allows - holding diuretics due to CASE - not on NORMAN/ARB previously, presumably due to advanced CKD and/or labile creatinines--defer to outpt cardio f/u (sees wic site coordinator in dr boateng office now) acute on chronic ckd - ? sec to sepsis, ? overtx (? inadvertently taking both torsemide and furosemide at home) - renal following, pt being hydrated with renal fxn improving - rpt echo to assess for worsened EF/contribution from low cardiac output. anemia: -hgb drifting down to <7 so received prbcs -today hgb low but stable, cont to trend HTN -stable non-obstructive CAD - Not on statin, will defer to outpatient wic site coordinator. - not on asa while hgb low here subcutaneous abscess, s/p I and D 04/11 - bp/hr stable post-op - surgery/ID following
--- NOTE | 2016-04-13 10:40 | PN ---
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 (short form) - Note 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: - History of Present Illness History of Present Illness: 76 M consulted for anemia. He is feeling better today. Hx :He had an I&D and was treated with bactrim. Unfortunately later developed progressive abscess, CASE and underwent excisional debridment (04/11/16) of the left back skin and subcutaneous tissue. He is currently in the ICU for monitoring .He also reports of previous PUD due to aspirin , leading to and EGD and stopping his aspirin. No recent hematochezia or osmar Comorbidities : CHF, HTN, HPL, COPD, hypothyroidism, NIDDM, CKD, Crohns, A- flutter on Eliquis, Vital Signs Period Temp Pulse Resp BP Sys/Hubbard Pulse Ox Last 24 Hr 97.3 F-98.8 F 64-81 16-22 90-116/49-79 96-100 Cardiovascular: Yes: Regular Rate and Rhythm Respiratory: Yes: CTA Bilaterally Gastrointestinal: Yes: Soft Extremities: Yes: WNL Neurological: Yes: WNL CBC, BMP 04/13/16 05:20 04/13/16 05:20 Active Medications Generic Name Dose Route Start Last Admin Trade Name Freq PRN Reason Stop Dose Admin Acetaminophen 650 mg 04/11/16 14:19 04/12/16 21:36 Tylenol - PO 650 mg Q6H PRN Administration FEVER OR PAIN Albuterol/Ipratropium 1 amp 04/11/16 14:19 Duoneb - NEB Q6H PRN SHORTNESS OF BREATH Amiodarone HCl 100 mg 04/12/16 10:00 04/13/16 09:20 Cordarone - PO 100 mg DAILY [facility] Administration Brimonidine Tartrate 1 drop 04/12/16 22:00 04/13/16 09:20 Alphagan 0.2% - OU 1 drop BID [facility] Administration Budesonide/Formoterol Fumarate 2 puff 04/11/16 22:00 04/13/16 09:22 Symbicort 80/4.5mcg - IH 2 puff BID [facility] Administration Folic Acid 1 mg 04/12/16 10:00 04/13/16 09:22 Folic Acid - PO 1 mg DAILY [facility] Administration Metronidazole 100 mls @ 100 mls/hr 04/11/16 18:00 04/13/16 09:21 Flagyl 500mg Premixed Ivpb - IVPB 100 mls/hr Q8H-IV [facility] Administration Sodium Chloride 1,000 mls @ 83 mls/hr 04/11/16 14:19 04/13/16 02:58 Normal Saline - IV 83 mls/hr ASDIR [facility] Administration Sodium Chloride 1,000 mls @ 100 mls/hr 04/11/16 14:19 04/11/16 14:20 Normal Saline - IV Not Given ASDIR [facility] Piperacillin Sod/Tazobactam Sod 50 mls @ 100 mls/hr 04/11/16 18:00 04/13/16 09: 21 Zosyn 2.25gm Ivpb (Pre-Docked) IVPB 100 mls/hr Q8H-IV [facility] Administration Insulin Aspart 1 vial 04/11/16 16:30 04/13/16 06:06 Novolog Vial Sliding Scale - SQ Not Given ACHS [facility] Protocol Isosorbide Dinitrate 20 mg 04/12/16 10:00 04/13/16 09:23 Isordil - PO 20 mg BIDISORDIL [facility] Administration Levothyroxine Sodium 50 mcg 04/12/16 07:00 04/13/16 06:33 Synthroid - PO 50 mcg DAILY@0700 [facility] Administration Metoprolol Succinate 25 mg 04/12/16 11:24 04/13/16 09:22 Toprol Xl - PO 25 mg BID [facility] Administration Morphine Sulfate 2 mg 04/11/16 15:45 Morphine Injection - IVPUSH Q4H PRN PAIN Problem List - Problems (1) Anemia Code(s): D64.9 - ANEMIA, UNSPECIFIED Qualifiers: Other causes of anemia: chronic disease, kidney (2) CKD (chronic kidney disease), stage II Code(s): N18.2 - CHRONIC KIDNEY DISEASE, STAGE 2 (MILD) (3) Lower GI bleed Code(s): K92.2 - GASTROINTESTINAL HEMORRHAGE, UNSPECIFIED Assessment/Plan Anemia- Normocytic normochromic with a high RDW Suspect this to be a contribution of anemia of kidney disease, acute illness -Ordered iron studies, ferritin, LDH (normal), B12 and folate pending, stool occult- negative -He is being transfused 1 unit of blood to keep Hb>7 -agree with holding AC at this time -will continue to follow Problem List - Problems (1) Anemia Code(s): D64.9 - ANEMIA, UNSPECIFIED Qualifiers: Qualified Code(s): N18.9 - Chronic kidney disease, unspecified; D63.1 - Anemia in chronic kidney disease (2) CKD (chronic kidney disease), stage II Code(s): N18.2 - CHRONIC KIDNEY DISEASE, STAGE 2 (MILD) (3) Lower GI bleed Code(s): K92.2 - GASTROINTESTINAL HEMORRHAGE, UNSPECIFIED
--- NOTE | 2016-04-13 10:41 | PN ---
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, Physician History of Present Illness: IN BED NO CP OR SOB - Current Medication List Current Medications: Active Medications Acetaminophen (Tylenol -) 650 mg PO Q6H PRN PRN Reason: FEVER OR PAIN Last Admin: 04/12/16 21:36 Dose: 650 mg Albuterol/Ipratropium (Duoneb -) 1 amp NEB Q6H PRN PRN Reason: SHORTNESS OF BREATH Amiodarone HCl (Cordarone -) 100 mg PO DAILY [facility] Last Admin: 04/13/16 09:20 Dose: 100 mg Brimonidine Tartrate (Alphagan 0.2% -) 1 drop OU BID [facility] Last Admin: 04/13/16 09:20 Dose: 1 drop Budesonide/Formoterol Fumarate (Symbicort 80/4.5mcg -) 2 puff IH BID [facility] Last Admin: 04/13/16 09:22 Dose: 2 puff Folic Acid (Folic Acid -) 1 mg PO DAILY [facility] Last Admin: 04/13/16 09:22 Dose: 1 mg Metronidazole (Flagyl 500mg Premixed Ivpb -) 100 mls @ 100 mls/hr IVPB Q8H-IV [facility] Last Admin: 04/13/16 09:21 Dose: 100 mls/hr Sodium Chloride (Normal Saline -) 1,000 mls @ 83 mls/hr IV ASDIR [facility] Last Admin: 04/13/16 02:58 Dose: 83 mls/hr Sodium Chloride (Normal Saline -) 1,000 mls @ 100 mls/hr IV ASDIR [facility] Last Admin: 04/11/16 14:20 Dose: Not Given Piperacillin Sod/Tazobactam Sod (Zosyn 2.25gm Ivpb (Pre-Docked)) 50 mls @ 100 mls/hr IVPB Q8H-IV [facility] Last Admin: 04/13/16 09:21 Dose: 100 mls/hr Insulin Aspart (Novolog Vial Sliding Scale -) 1 vial SQ ACHS [facility] PRN Reason: Protocol Last Admin: 04/13/16 06:06 Dose: Not Given Isosorbide Dinitrate (Isordil -) 20 mg PO BIDISORDIL [facility] Last Admin: 04/13/16 09:23 Dose: 20 mg Levothyroxine Sodium (Synthroid -) 50 mcg PO DAILY@0700 [facility] Last Admin: 04/13/16 06:33 Dose: 50 mcg Metoprolol Succinate (Toprol Xl -) 25 mg PO BID [facility] Last Admin: 04/13/16 09:22 Dose: 25 mg Morphine Sulfate (Morphine Injection -) 2 mg IVPUSH Q4H PRN PRN Reason: PAIN - Objective Vital Signs: Vital Signs Temperature 98.1 F 04/13/16 10:00 Pulse Rate 81 04/13/16 10:00 Respiratory Rate 22 04/13/16 10:00 Blood Pressure 101/57 04/13/16 10:00 O2 Sat by Pulse Oximetry (%) 100 04/13/16 08:00 Cardiovascular: Yes: Regular Rate and Rhythm Respiratory: Yes: Regular, CTA Bilaterally Gastrointestinal: Yes: Normal Bowel Sounds, Soft Integumentary: Yes: Other (VAC IN PLACE LT BACK) Labs: CBC, BMP 04/13/16 05:20 04/13/16 05:20 INR, PTT INR 1.30 (0.82-1.09) H D 04/13/16 05:20 Problem List - Problems (1) Abscess Assessment/Plan: S/P I&D VAC IV ABX PER SURGERY Code(s): L02.91 - CUTANEOUS ABSCESS, UNSPECIFIED (2) Acute on chronic renal failure Assessment/Plan: WORSE THAN BASELINE MAYBE DUE SEPSIS MONITOR RENAL FUNCTION RENAL ON BOARD Code(s): N17.9 - ACUTE KIDNEY FAILURE, UNSPECIFIED N18.9 - CHRONIC KIDNEY DISEASE, UNSPECIFIED (3) DMII (diabetes mellitus, type 2) Assessment/Plan: [facility] Code(s): E11.9 - TYPE 2 DIABETES MELLITUS WITHOUT COMPLICATIONS Qualifiers: Diabetes mellitus complication detail: with other kidney complication (4) Anemia Assessment/Plan: H/O DIVERTICULAR BLEED IN 2016 TRANSFUSE ON EUNIT--HGB 7.2 FOLLOW LABS GI CONSULT Code(s): D64.9 - ANEMIA, UNSPECIFIED Qualifiers: Other causes of anemia: chronic disease, kidney
--- NOTE | 2016-04-13 11:17 | PN ---
[id number]. Vital Signs Period Temp Pulse Resp BP Sys/Hubbard Pulse Ox Last 24 Hr 97.3 F-98.8 F 64-81 16-22 90-116/49-79 96-100 PE: GEN: A&0x3, appears comfortable Left shoulder, vac dressing in place. canister level at 400(300 yesterday). tubing in bloody. LE: decreased swelling noted b/l. CBC, BMP 04/13/16 05:20 04/13/16 05:20 <Ashleigh Bartholomew - Last Filed: 04/13/16 11:21> - Note 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: Agree POD 2 Pain controlled No acute complaints In ICU Afebrile BP 100-110/50-70s- improved HR 60-80s VAC in place- on suction WBC 14.5 H/H 12/10 currently Will change VAC tomorrow Serial H/H Transfuse as needed <Timi Walker - Last Filed: 04/13/16 18:27> Problem List - Problems (1) Abscess Assessment/Plan: Pt doing well after I&D and debridement of left shoulder abscess. WBC improved 11(32). He remains afebrile. Continue IV abx H&H stable but remains anemic from acute blood loss/chronic kidney disease. Transfuse as per the medical team. Will plan for vac change in the am. Holding eliquis at this time. Code(s): L02.91 - CUTANEOUS ABSCESS, UNSPECIFIED (2) Acute on chronic renal failure Assessment/Plan: Kidney function now improving, he has a h/o of CRI. Further management as per renal. Code(s): N17.9 - ACUTE KIDNEY FAILURE, UNSPECIFIED N18.9 - CHRONIC KIDNEY DISEASE, UNSPECIFIED <Ashleigh Bartholomew - Last Filed: 04/13/16 11:21>
--- NOTE | 2016-04-13 13:06 | PN ---
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, Physician History of Present Illness: Renal f/u Pt in no distress Another unit of PRBCs being transfused today Azotemia and K better today - Current Medication List Current Medications: Active Medications Acetaminophen (Tylenol -) 650 mg PO Q6H PRN PRN Reason: FEVER OR PAIN Last Admin: 04/12/16 21:36 Dose: 650 mg Albuterol/Ipratropium (Duoneb -) 1 amp NEB Q6H PRN PRN Reason: SHORTNESS OF BREATH Amiodarone HCl (Cordarone -) 100 mg PO DAILY [facility] Last Admin: 04/13/16 09:20 Dose: 100 mg Brimonidine Tartrate (Alphagan 0.2% -) 1 drop OU BID [facility] Last Admin: 04/13/16 09:20 Dose: 1 drop Budesonide/Formoterol Fumarate (Symbicort 80/4.5mcg -) 2 puff IH BID [facility] Last Admin: 04/13/16 09:22 Dose: 2 puff Folic Acid (Folic Acid -) 1 mg PO DAILY [facility] Last Admin: 04/13/16 09:22 Dose: 1 mg Metronidazole (Flagyl 500mg Premixed Ivpb -) 100 mls @ 100 mls/hr IVPB Q8H-IV [facility] Last Admin: 04/13/16 09:21 Dose: 100 mls/hr Sodium Chloride (Normal Saline -) 1,000 mls @ 83 mls/hr IV ASDIR [facility] Last Admin: 04/13/16 02:58 Dose: 83 mls/hr Sodium Chloride (Normal Saline -) 1,000 mls @ 100 mls/hr IV ASDIR [facility] Last Admin: 04/11/16 14:20 Dose: Not Given Piperacillin Sod/Tazobactam Sod (Zosyn 2.25gm Ivpb (Pre-Docked)) 50 mls @ 100 mls/hr IVPB Q8H-IV [facility] Last Admin: 04/13/16 09:21 Dose: 100 mls/hr Insulin Aspart (Novolog Vial Sliding Scale -) 1 vial SQ ACHS [facility] PRN Reason: Protocol Last Admin: 04/13/16 11:17 Dose: Not Given Isosorbide Dinitrate (Isordil -) 20 mg PO BIDISORDIL [facility] Last Admin: 04/13/16 09:23 Dose: 20 mg Levothyroxine Sodium (Synthroid -) 50 mcg PO DAILY@0700 [facility] Last Admin: 04/13/16 06:33 Dose: 50 mcg Metoprolol Succinate (Toprol Xl -) 25 mg PO BID [facility] Last Admin: 04/13/16 09:22 Dose: 25 mg Morphine Sulfate (Morphine Injection -) 2 mg IVPUSH Q4H PRN PRN Reason: PAIN - Objective Vital Signs: Vital Signs Temperature 98.2 F 04/13/16 12:00 Pulse Rate 70 04/13/16 12:00 Respiratory Rate 18 04/13/16 12:00 Blood Pressure 111/62 04/13/16 12:00 O2 Sat by Pulse Oximetry (%) 100 04/13/16 08:00 Constitutional: Yes: No Distress Cardiovascular: Yes: S1, S2 Respiratory: Yes: CTA Bilaterally Gastrointestinal: Yes: Soft. No: Tenderness, Rebound Edema: No Neurological: Yes: Alert, Oriented Labs: CBC, BMP 04/13/16 05:20 04/13/16 05:20 INR, PTT INR 1.30 (0.82-1.09) H D 04/13/16 05:20 Assessment/Plan Impression CASE on CKD with atrophic kidneys wwith improving Cr and BUN S/P hyperkalemia Sepsis with Cellulitis/abscess of back H/O Hypertension now with relatively low BP Anemia following debridement of the left upper back CHF Hypothyroidism Hyperlipidemia COPD Plan Renal Diet PRBCs in progress Cautious IV hydration given H/O of CHF though pt is clinically compensated Rpt labs in am Dr Camp
[2016-04-13 13:40] LABS: FERRITIN 957.103 ng/ml (16.4-293.9)
--- NOTE | 2016-04-13 14:39 | CON.GI ---
Consult Consult Specialty:: Gastroenterology Reason for Consultation:: anemia - History of Present Illness Chief Complaint: Abscess left shoulder History of Present Illness: 76 year old male with history of gastric ulcers and episode of diverticular bleeding admitted for left scapular abscess that was I&Ded. Post op there was at least 750cc of blood in the vacutainer upon arrival to the ICU. There was a subsequent drop in his H&H and consult was called for possible GI bleeding. His stool has been none bloody and he has no melena. Stool OB was negative - History Source History Provided By: Patient Limitations to Obtaining History: No Limitations - Past Medical History Cardio/Vascular: Yes: CHF, HTN, Other (flutter) Pulmonary: Yes: COPD Gastrointestinal: Yes: Diverticulosis, Peptic Ulcer Disease Renal/: Yes: Renal Inusuff Endocrine: Yes: Diabetes Mellitus Additional Medical History: glaucoma - Past Surgical History Past Surgical History: Yes: Colonoscopy, Upper Endoscopy - Alcohol/Substance Use Hx Alcohol Use: No - Smoking History Smoking history: Never smoked Have you smoked in the past 12 months: No - Social History Occupation: worked for the [employer] Home Medications - Allergies Allergies/Adverse Reactions: Allergies Allergy/AdvReac Type Severity Reaction Status Date / Time No Known Allergies Allergy Verified 04/10/16 11:57 - Home Medications Home Medications: Ambulatory Orders Amiodarone HCl 200 mg PO DAILY 04/11/16 Apixaban [Eliquis] 5 mg PO BID 04/11/16 Atorvastatin Ca [Lipitor] 10 mg PO DAILY 04/11/16 Hydralazine HCl 10 mg PO TID 04/11/16 Isosorbide Dinitrate [Isordil -] 20 mg PO TID 04/11/16 Metoprolol Succinate [Toprol Xl -] 50 mg PO DAILY 04/11/16 Potassium Chloride [K-Tab ER] 20 meq PO DAILY 04/11/16 Torsemide 100 mg PO DAILY 04/11/16 Family Disease History - Family Disease History Family Disease History: Diabetes: Father Review of Systems - Review of Systems Constitutional: reports: No Symptoms Eyes: reports: No Symptoms HENT: reports: No Symptoms Neck: reports: No Symptoms Cardiovascular: reports: No Symptoms Respiratory: reports: No Symptoms Gastrointestinal: reports: No Symptoms Genitourinary: reports: No Symptoms Musculoskeletal: reports: Back Pain Integumentary: reports: Blister, Wound Neurological: reports: No Symptoms Endocrine: reports: No Symptoms Hematology/Lymphatic: reports: No Symptoms Physical Exam-GI Vital Signs: Vital Signs Temperature 98.0 F 04/13/16 14:00 Pulse Rate 67 04/13/16 14:00 Respiratory Rate 18 04/13/16 14:00 Blood Pressure 102/62 04/13/16 14:00 O2 Sat by Pulse Oximetry (%) 100 04/13/16 08:00 Constitutional: Yes: No Distress Eyes: Yes: Conjunctiva Clear HENT: Yes: Normocephalic Cardiovascular: Yes: Regular Rate and Rhythm Respiratory: Yes: Regular Gastrointestinal Inspection: Yes: WNL ...Auscultate: Yes: Normoactive Bowel Sounds ...Palpate: Yes: Soft Musculoskeletal: Yes: Other (vac dressing left scapular area, draining pus and blood) Extremities: Yes: WNL Labs: CBC, BMP 04/13/16 05:20 04/13/16 05:20 INR, PTT INR 1.30 (0.82-1.09) H D 04/13/16 05:20 Problem List - Problems (1) Anemia Assessment/Plan: There is no evidence of Gi bleeding. Acute anemia related to procedure. Would continue gi prophylaxis and avoid nsaids if possible given history of gastric ulcers. ICU Time: 30 minutes Code(s): D64.9 - ANEMIA, UNSPECIFIED Qualifiers: Other causes of anemia: chronic disease, kidney (2) Abscess Code(s): L02.91 - CUTANEOUS ABSCESS, UNSPECIFIED
[2016-04-13 18:19] LABS: MCH 28.8 pg (25.7-33.7); MEAN CELL VOLUME 87.1 fl (80-96); MEAN PLT VOLUME 8.3 fl (7.5-11.1); PLATELET COUNT 202 K/MM3 (134-434); RDW 17.2 % (11.9-15.9); WHITE BLOOD COUNT 14.5 K/mm3 (4.0-10.0)
[2016-04-13] MEDS: ACETAMINOPHEN 325 MG TABLET (FP) PO PRN (22:19)
[2016-04-13] MEDS: RANITIDINE HCL 150 MG TABLET (FP) PO SCH (22:23)
[2016-04-14] MEDS: METRONIDAZOLE 500 MG PREMIXED 100 ML IVPB SCH ×3 (01:21→17:51)
[2016-04-14] MEDS: PIPERACILLIN/TAZOB 2.25 GM 50 ML IVPB SCH ×3 (01:21→17:51)
[2016-04-14] MEDS: SODIUM CHLORIDE 1,000 ML IV SCH (03:14)
[2016-04-14 06:06] LABS: SERUM IRON 56 ug/dL (38-169); TOTAL IRON BINDING CAPACITY 140 ug/dL (250-450); UIBC 84 ug/dL (111-343)
[2016-04-14 06:06] LABS: MCH 28.6 pg (25.7-33.7); MCHC 33.3 g/dl (32.0-35.9); MEAN CELL VOLUME 85.7 fl (80-96); PLATELET COUNT 228 K/MM3 (134-434); WHITE BLOOD COUNT 11.8 K/mm3 (4.0-10.0)
[2016-04-14] MEDS: INSULIN SLIDING SCALE (NOVOLOG) 1 VIAL SQ SCH ×4 (06:28→21:13)
[2016-04-14] MEDS: LEVOTHYROXINE NA 50 MCG TABLET (FP) PO SCH (06:28)
[2016-04-14 06:41] LABS: CREATININE 3.3 mg/dL (0.7-1.3); PHOSPHOROUS 3.9 mg/dL (2.5-4.9)
--- NOTE | 2016-04-14 08:00 | PN ---
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, Physician History of Present Illness: ID Vancomycin Metronidazole Zosyn He looks much better then in the ER. NAD Afebrile VAC dressing shoulder - Current Medication List Current Medications: Active Medications Acetaminophen (Tylenol -) 650 mg PO Q6H PRN PRN Reason: FEVER OR PAIN Last Admin: 04/13/16 22:19 Dose: 650 mg Albuterol/Ipratropium (Duoneb -) 1 amp NEB Q6H PRN PRN Reason: SHORTNESS OF BREATH Amiodarone HCl (Cordarone -) 100 mg PO DAILY [facility] Last Admin: 04/13/16 09:20 Dose: 100 mg Brimonidine Tartrate (Alphagan 0.2% -) 1 drop OU BID [facility] Last Admin: 04/13/16 22:28 Dose: 1 drop Budesonide/Formoterol Fumarate (Symbicort 80/4.5mcg -) 2 puff IH BID [facility] Last Admin: 04/13/16 22:26 Dose: 2 puff Folic Acid (Folic Acid -) 1 mg PO DAILY [facility] Last Admin: 04/13/16 09:22 Dose: 1 mg Metronidazole (Flagyl 500mg Premixed Ivpb -) 100 mls @ 100 mls/hr IVPB Q8H-IV [facility] Last Admin: 04/14/16 01:21 Dose: 100 mls/hr Sodium Chloride (Normal Saline -) 1,000 mls @ 83 mls/hr IV ASDIR [facility] Last Admin: 04/14/16 03:14 Dose: 83 mls/hr Sodium Chloride (Normal Saline -) 1,000 mls @ 100 mls/hr IV ASDIR [facility] Last Admin: 04/13/16 14:19 Dose: Not Given Piperacillin Sod/Tazobactam Sod (Zosyn 2.25gm Ivpb (Pre-Docked)) 50 mls @ 100 mls/hr IVPB Q8H-IV [facility] Last Admin: 04/14/16 01:21 Dose: 100 mls/hr Insulin Aspart (Novolog Vial Sliding Scale -) 1 vial SQ ACHS [facility] PRN Reason: Protocol Last Admin: 04/14/16 06:28 Dose: Not Given Isosorbide Dinitrate (Isordil -) 20 mg PO BIDISORDIL [facility] Last Admin: 04/13/16 18:00 Dose: Not Given Levothyroxine Sodium (Synthroid -) 50 mcg PO DAILY@0700 [facility] Last Admin: 04/14/16 06:28 Dose: 50 mcg Metoprolol Succinate (Toprol Xl -) 25 mg PO BID [facility] Last Admin: 04/13/16 22:18 Dose: 25 mg Morphine Sulfate (Morphine Injection -) 2 mg IVPUSH Q4H PRN PRN Reason: PAIN Ranitidine HCl (Zantac -) 150 mg PO BID [facility] Last Admin: 04/13/16 22:23 Dose: 150 mg - Objective Vital Signs: Vital Signs Temperature 98.4 F 04/14/16 06:00 Pulse Rate 63 04/14/16 06:00 Respiratory Rate 20 04/14/16 06:00 Blood Pressure 121/62 04/14/16 06:00 O2 Sat by Pulse Oximetry (%) 100 04/13/16 21:00 Constitutional: Yes: Well Nourished, No Distress HENT: Yes: WNL, Atraumatic Neck: Yes: WNL, Supple, Trachea Midline Cardiovascular: Yes: Regular Rate and Rhythm, S1, S2. No: Murmur Respiratory: Yes: WNL, Regular, CTA Bilaterally. No: Rales, Rhonchi, SOB Gastrointestinal: Yes: WNL, Normal Bowel Sounds, Soft. No: Splenomegaly, Tenderness, Tenderness, Rebound Extremities: Yes: Other (VAC dressing left scapula) Edema: No Labs: CBC, BMP 04/14/16 05:30 04/14/16 05:30 INR, PTT INR 1.30 (0.82-1.09) H D 04/13/16 05:20 Problem List - Problems (1) Abscess Code(s): L02.91 - CUTANEOUS ABSCESS, UNSPECIFIED (2) Leukocytosis Code(s): D72.829 - ELEVATED WHITE BLOOD CELL COUNT, UNSPECIFIED Qualifiers: Leukocytosis type: unspecified Qualified Code(s): D72.829 - Elevated white blood cell count, unspecified Assessment/Plan Microbiology 04/10/16 19:53 Abscess Gram Stain - Final 04/10/16 11:50 Back Gram Stain - Final 04/10/16 19:53 Abscess Wound Culture - Preliminary Gram Positive Bacillus 04/10/16 11:50 Blood - Peripheral Venous Blood Culture - Preliminary NO GROWTH OBTAINED AFTER 72 HOURS, INCUBATION TO CONTINUE FOR 2 DAYS. 04/10/16 11:50 Back Wound Culture - Preliminary Gram Positive Bacillus 04/10/16 11:41 Blood - Peripheral Venous Blood Culture - Preliminary NO GROWTH OBTAINED AFTER 72 HOURS, INCUBATION TO CONTINUE FOR 2 DAYS. Laboratory Tests 04/13/16 04/14/16 04/14/16 05:20 05:30 05:30 WBC 11.8 H Hgb 7.9 L D Plt Count 228 INR 1.30 H D BUN 82 H Assessment Necrotic abscess shoulder with devitalized tissue debrided per Dr Walker and VAC dressing placed Gram positive bacillus growing I wonder about a Clostridial pure tissue abscess. He is on anaerobic coverage Diabetes CKD Plan Continue current antibiotics as ordered Check a Vanco level Await final cultures 37 mins spent ICU critical care time Kris MOSQUERA
[2016-04-14] MEDS: BRIMONIDINE TARTRATE 0.2% OPHTHALMIC 5 ML BOTTLE OU SCH ×2 (09:02→21:23)
[2016-04-14] MEDS: AMIODARONE HCL 200 MG TABLET (FP) PO SCH (09:03)
[2016-04-14] MEDS: FOLIC ACID 1 MG TABLET (FP) PO SCH (09:03)
[2016-04-14] MEDS: METOPROLOL SUCCINATE 25 MG TAB.SR.24H (FP) PO SCH ×2 (09:04→21:22)
[2016-04-14] MEDS: BUDESONIDE/FORMETEROL FUMARATE 80/4.5 mcg INHALER IH SCH (09:04)
[2016-04-14] MEDS: ISOSORBIDE DINITRATE 20 MG TABLET (FP) PO SCH ×2 (09:04→18:19)
[2016-04-14] MEDS: RANITIDINE HCL 150 MG TABLET (FP) PO SCH ×2 (09:04→21:22)
--- NOTE | 2016-04-14 09:04 | PN ---
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, Physician Chief Complaint: CASE, abscess History of Present Illness: denies sob or orthopnea; no cp, palpit - Current Medication List Current Medications: Active Medications Acetaminophen (Tylenol -) 650 mg PO Q6H PRN PRN Reason: FEVER OR PAIN Last Admin: 04/13/16 22:19 Dose: 650 mg Albuterol/Ipratropium (Duoneb -) 1 amp NEB Q6H PRN PRN Reason: SHORTNESS OF BREATH Amiodarone HCl (Cordarone -) 100 mg PO DAILY [facility] Last Admin: 04/13/16 09:20 Dose: 100 mg Brimonidine Tartrate (Alphagan 0.2% -) 1 drop OU BID [facility] Last Admin: 04/13/16 22:28 Dose: 1 drop Budesonide/Formoterol Fumarate (Symbicort 80/4.5mcg -) 2 puff IH BID [facility] Last Admin: 04/13/16 22:26 Dose: 2 puff Folic Acid (Folic Acid -) 1 mg PO DAILY [facility] Last Admin: 04/13/16 09:22 Dose: 1 mg Metronidazole (Flagyl 500mg Premixed Ivpb -) 100 mls @ 100 mls/hr IVPB Q8H-IV [facility] Last Admin: 04/14/16 01:21 Dose: 100 mls/hr Sodium Chloride (Normal Saline -) 1,000 mls @ 83 mls/hr IV ASDIR [facility] Last Admin: 04/14/16 03:14 Dose: 83 mls/hr Sodium Chloride (Normal Saline -) 1,000 mls @ 100 mls/hr IV ASDIR [facility] Last Admin: 04/13/16 14:19 Dose: Not Given Piperacillin Sod/Tazobactam Sod (Zosyn 2.25gm Ivpb (Pre-Docked)) 50 mls @ 100 mls/hr IVPB Q8H-IV [facility] Last Admin: 04/14/16 01:21 Dose: 100 mls/hr Insulin Aspart (Novolog Vial Sliding Scale -) 1 vial SQ ACHS [facility] PRN Reason: Protocol Last Admin: 04/14/16 06:28 Dose: Not Given Isosorbide Dinitrate (Isordil -) 20 mg PO BIDISORDIL [facility] Last Admin: 04/13/16 18:00 Dose: Not Given Levothyroxine Sodium (Synthroid -) 50 mcg PO DAILY@0700 [facility] Last Admin: 04/14/16 06:28 Dose: 50 mcg Metoprolol Succinate (Toprol Xl -) 25 mg PO BID [facility] Last Admin: 04/13/16 22:18 Dose: 25 mg Morphine Sulfate (Morphine Injection -) 2 mg IVPUSH Q4H PRN PRN Reason: PAIN Ranitidine HCl (Zantac -) 150 mg PO BID [facility] Last Admin: 04/13/16 22:23 Dose: 150 mg - Objective Vital Signs: Vital Signs Temperature 98.3 F 04/14/16 08:00 Pulse Rate 70 04/14/16 08:00 Respiratory Rate 20 04/14/16 08:00 Blood Pressure 118/78 04/14/16 08:00 O2 Sat by Pulse Oximetry (%) 100 04/14/16 08:00 Constitutional: Yes: Well Nourished, No Distress, Calm Cardiovascular: Yes: Regular Rate and Rhythm, S1, S2. No: JVD, Gallop, Murmur Respiratory: Yes: Regular, CTA Bilaterally. No: Accessory Muscle Use, Rales, Wheezes Extremities: No: Cold Edema: No Neurological: Yes: Alert, Oriented Psychiatric: No: Agitated Labs: CBC, BMP 04/14/16 05:30 04/14/16 05:30 INR, PTT INR 1.30 (0.82-1.09) H D 04/13/16 05:20 - ....Imaging EKG: Other (tele: NSR; NSVT 3b and 4b runs) Assessment/Plan mibi 10/2014: no ischemia, sev reduced [place]vef [place] [place] definity used. mild lve, lvef 45%, nl rv, mild AR, sev lae , nl rvsp EKG: SR with pvc's. AV conduction delay, IVCD. lateral T wave flattening, similar to priors. tele: SR with pac's/pvc's. cannot rule out intermittent afib. est cct 32 mins a/p: 75 m hx non obs cad (cath 10/2014: only mild disease RCA), remote MO ( mentioned in prior charts, no further details, pt unclear of hx), syst chf (NICM , mild dec lvef), htn, copd, dm, ckd (cr 2's), aflutter on eliquis, here with subcutaneous abscess/sepsis/CASE. aflutter - remains in sinus here - cont amiodarone (tsh, lft's ok) and metoprolol - on eliquis as outpatient, currently on hold sec to anemia. - no active GIB suspected per GI, hgb incr'd s/p PRBCs then down this am but ? erroneous value last night (as disc'd below) - given the questionable trend in hgb today vs last night, will hold AC for now- -if hgb stable in am, plan to start UFH (for reversibility) while monitor H/H trend, then ultimately resume eliquis prior to discharge NICM (EF ~ 45%) - Currently does not appear volume overloaded. - cont IVF per renal with close monitoring of volume status. - con't regimen of metoprolol, hydralazine, isordil--hold parameters given due to low bp trend - changed toprol 50 qd to 25 bid (bid dosing for lv dysfxn, as well as gentler on BP)--titrate dose as outpt if bp allows - holding diuretics due to CASE - not on NORMAN/ARB previously, presumably due to advanced CKD and/or labile creatinines--defer to outpt cardio f/u (sees rocket motor mechanic in dr boateng office now) - rpt echo VTach: - brief runs (3-4 beats) on tele - K/Mag good - last EF relatively preserved--rpt echo pending - cont BB as doing acute on chronic ckd - ? sec to sepsis, ? overtx (? inadvertently taking both torsemide and furosemide at home) - renal following, pt being hydrated with renal fxn improving markedly anemia: -hgb drifted down to <7 so received prbcs -hgb improved to 7s, then 9s, now back to 7s (04/14)--? 9 was erroneous, vs trending down again -seen by GI: has h/o gastric ulcers and diverticular bleeding in past, but no melena and guaiac neg here--i.e. no active GIB suspected -AC mgmt as above HTN -stable non-obstructive CAD - Not on statin, will defer to outpatient rocket motor mechanic. - not on asa while hgb low here subcutaneous abscess, s/p I and D 04/11 - bp/hr stable post-op - surgery/ID following
[2016-04-14] MEDS ORDERED: ALBUTEROL SO4 2.5/IPRATROPIUM 0.5 INH SOL 3 ML VIAL.NEB. NEB PRN (11:44)
[2016-04-14] MEDS ORDERED: morphine CARPU-JECT 2 MG/1 ML DISP.SYRIN IVPUSH PRN (11:44)
[2016-04-14] MEDS ORDERED: HEMOQUE TEST 1 EACH EACH ONE (11:48)
--- NOTE | 2016-04-14 11:51 | PN ---
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, Physician History of Present Illness: Renal f/u Pt in no distress and denies any complaints Stools negative for blood and Hgb still decreasing ? dilution and from his CKD as suggested by GI CXR shows congestive changes Pt has been on NS at 83cc/hr - Current Medication List Current Medications: Active Medications Acetaminophen (Tylenol -) 650 mg PO Q6H PRN PRN Reason: FEVER OR PAIN Last Admin: 04/13/16 22:19 Dose: 650 mg Albuterol/Ipratropium (Duoneb -) 1 amp NEB Q6H PRN PRN Reason: SHORTNESS OF BREATH Amiodarone HCl (Cordarone -) 100 mg PO DAILY [facility] Last Admin: 04/14/16 09:03 Dose: 100 mg Brimonidine Tartrate (Alphagan 0.2% -) 1 drop OU BID [facility] Last Admin: 04/14/16 09:02 Dose: 1 drop Folic Acid (Folic Acid -) 1 mg PO DAILY [facility] Last Admin: 04/14/16 09:03 Dose: 1 mg Metronidazole (Flagyl 500mg Premixed Ivpb -) 100 mls @ 100 mls/hr IVPB Q8H-IV [facility] Last Admin: 04/14/16 09:03 Dose: 100 mls/hr Piperacillin Sod/Tazobactam Sod (Zosyn 2.25gm Ivpb (Pre-Docked)) 50 mls @ 100 mls/hr IVPB Q8H-IV [facility] Last Admin: 04/14/16 09:04 Dose: 100 mls/hr Insulin Aspart (Novolog Vial Sliding Scale -) 1 vial SQ ACHS [facility] PRN Reason: Protocol Last Admin: 04/14/16 06:28 Dose: Not Given Isosorbide Dinitrate (Isordil -) 20 mg PO BIDISORDIL [facility] Last Admin: 04/14/16 09:04 Dose: 20 mg Levothyroxine Sodium (Synthroid -) 50 mcg PO DAILY@0700 [facility] Last Admin: 04/14/16 06:28 Dose: 50 mcg Metoprolol Succinate (Toprol Xl -) 25 mg PO BID [facility] Last Admin: 04/14/16 09:04 Dose: 25 mg Morphine Sulfate (Morphine Injection -) 2 mg IVPUSH Q4H PRN PRN Reason: PAIN Ranitidine HCl (Zantac -) 150 mg PO BID [facility] Last Admin: 04/14/16 09:04 Dose: 150 mg - Objective Vital Signs: Vital Signs Temperature 98.1 F 04/14/16 10:00 Pulse Rate 70 04/14/16 10:00 Respiratory Rate 20 04/14/16 10:00 Blood Pressure 112/60 04/14/16 10:00 O2 Sat by Pulse Oximetry (%) 100 04/14/16 08:00 Constitutional: Yes: No Distress Cardiovascular: Yes: S1, S2 Respiratory: Yes: Other (Few bibasilar crackles posteriorly) Gastrointestinal: Yes: Normal Bowel Sounds. No: Tenderness, Rebound Edema: No Labs: CBC, BMP 04/14/16 05:30 04/14/16 05:30 INR, PTT INR 1.30 (0.82-1.09) H D 04/13/16 05:20 Assessment/Plan Impression CASE on CKD with atrophic kidneys improving S/P hyperkalemia Sepsis with Cellulitis/abscess of back H/O Hypertension now with relatively low BP Anemia following debridement of the left upper back CHF Hypothyroidism Hyperlipidemia COPD Plan D/C NS at this time Rpt labs in am Abx as per ID Discussed with CCM Dr Camp
--- NOTE | 2016-04-14 12:18 | PN ---
Teaching Attending Note Name of Resident: Shoaib Rojas ATTENDING PHYSICIAN STATEMENT I saw and evaluated the patient. I reviewed the resident's note and discussed the case with the resident. I agree with the resident's findings and plan as documented. SUBJECTIVE: Pt seen and examined in the ICU. Denies shortness of breath or chest pain. No fevers or chills. Wound vac in place. OBJECTIVE: Last Vital Signs Temp Pulse Resp BP Pulse Ox 98.1 F 70 20 112/60 100 04/14/16 10:00 04/14/16 10:00 04/14/16 10:00 04/14/16 10:00 04/14/16 08:00 Intake & Output 04/11/16 04/12/16 04/13/16 04/14/16 23:59 23:59 23:59 23:59 Intake Total 1073.5 2979 2213 1181 Output Total 2200 1900 2050 800 Balance -1126.5 1079 163 381 Weight 215 lb 213 lb 10.047 oz 218 lb 8 oz 222 lb 14.4 oz Gen: NAD at rest Heart: RRR Lung: scattered basilar rales Abd: soft, nontender Ext: no edema CBC, BMP 04/14/16 05:30 04/14/16 05:30 Active Medications Acetaminophen (Tylenol -) 650 mg PO Q6H PRN PRN Reason: FEVER OR PAIN Albuterol/Ipratropium (Duoneb -) 1 amp NEB Q6H PRN PRN Reason: SHORTNESS OF BREATH Amiodarone HCl (Cordarone -) 100 mg PO DAILY [facility] Brimonidine Tartrate (Alphagan 0.2% -) 1 drop OU BID [facility] Folic Acid (Folic Acid -) 1 mg PO DAILY [facility] Metronidazole (Flagyl 500mg Premixed Ivpb -) 100 mls @ 100 mls/hr IVPB Q8H-IV [facility] Piperacillin Sod/Tazobactam Sod (Zosyn 2.25gm Ivpb (Pre-Docked)) 50 mls @ 100 mls/hr IVPB Q8H-IV [facility] Insulin Aspart (Novolog Vial Sliding Scale -) 1 vial SQ ACHS [facility] PRN Reason: Protocol Isosorbide Dinitrate (Isordil -) 20 mg PO BIDISORDIL [facility] Levothyroxine Sodium (Synthroid -) 50 mcg PO DAILY@0700 [facility] Metoprolol Succinate (Toprol Xl -) 25 mg PO BID [facility] Morphine Sulfate (Morphine Injection -) 2 mg IVPUSH Q4H PRN PRN Reason: PAIN Ranitidine HCl (Zantac -) 150 mg PO BID [facility] ASSESSMENT AND PLAN: Necrotic Shoulder Cutaneuous Abscess s/p debridement Sepsis improving Acute on Chronic Renal Failure Paroxysmal Atrial Flutter now in sinus LV Systolic Dysfunction CAD COPD HTN DM - continue antibiotics - f/u final cultures - wound care - d/c IVF - PO as tolerated - monitor urine output, creatinine - resume NORMAN-I when renal function stable - rate/rhythm controlled on metoprolol and amiodarone - resume anticoagulation when stable - DVT prophylaxis - can monitor on floor
[2016-04-14 12:37] LABS: BASOPHIL 0.5 % (0-2.0); EOSINOPHIL 1.7 % (0-4.5); MCH 28.6 pg (25.7-33.7); MEAN CELL VOLUME 86.6 fl (80-96); MEAN PLT VOLUME 8.4 fl (7.5-11.1); NEUTROPHILS 80.4 % (42.8-82.8); PLATELET COUNT 219 K/MM3 (134-434); RDW 16.9 % (11.9-15.9); WHITE BLOOD COUNT 13.3 K/mm3 (4.0-10.0)
[2016-04-14 13:08] LABS: CALCIUM 8.1 mg/dL (8.5-10.1); CREATININE 3.3 mg/dL (0.7-1.3)
--- NOTE | 2016-04-14 14:00 | PATH ---
Surgical Pathology Report Patient Name: DARCI PALOMARES [facility]. Rec. #: [id number] /Age/Gender: 1940 (Age: 76) / M Account: [id number] Location: ICU WAIT STAFF Taken: 04/11/2016 Received: 04/11/2016 Reported: 04/14/2016 Physicians: Timi Walker M.D. Specimen(s) Received DEBRIDEMENT TISSUE LEFT BACK ABSCESS Clinical History Abscess left back Final Diagnosis SKIN AND UNDERLYING SOFT TISSUE, LEFT BACK, ABSCESS, DEBRIDEMENT: NECROTIC SKIN AND UNDERLYING SOFT TISSUE WITH ACUTE NECROTIZING INFLAMMATION AND SOURCE OF GANGRENOUS NECROSIS. Electronically Signed Cheikh Aaron M.D. Gross Description Received in formalin, labeled "debrided tissue left back abscess" is a 6.0 x 3.8 x 2.0 cm aggregate of multiple loco-brown, irregular, unoriented portions of necrotic skin and soft tissue. Environmental Services Assistant sections are submitted in one cassette. /04/11/201604/11/2016
--- NOTE | 2016-04-14 15:15 | PN ---
Physical Exam: SUBJECTIVE: Patient seen and examined at bedside. POD# 3 s/p debridement of shoulder wound. Wound is draining from wound vac. No overnight events. No new complaints. Denies CP, VILLEGAS , SOB, palpitation, n/v. OBJECTIVE: Vital Signs Period Temp Pulse Resp BP Sys/Hubbard Pulse Ox Last 24 Hr 97.9 F-98.7 F 61-73 18-20 107-128/60-79 100-100 GENERAL: Awake, alert, and fully oriented, in no acute distress. HEAD: Normal with no signs of trauma. EYES: Pupils equal, round and reactive to light, extraocular movements intact, sclera anicteric, conjunctiva clear. No lid lag. EARS, NOSE, THROAT: Ears normal, nares patent, oropharynx clear without exudates. Moist mucous membranes. NECK: Normal range of motion, supple without lymphadenopathy, JVD, or masses. LUNGS: Breath sounds equal, clear to auscultation bilaterally. No wheezes, fine crackles at left base. . No accessory muscle use. HEART: Regular rate and rhythm, normal S1 and S2 without murmur, rub or gallop. ABDOMEN: Obese,Soft, nontender, not distended, normoactive bowel sounds, no guarding, no rebound, no masses. No hepatomegaly or splenomegaly. MUSCULOSKELETAL: Normal range of motion at all joints. No bony deformities or tenderness. No CVA tenderness. UPPER EXTREMITIES: 2+ pulses, warm, well-perfused. No cyanosis. No clubbing. Cap refill <2 seconds. No peripheral edema. LOWER EXTREMITIES: 2+ pulses, warm, well-perfused. No calf tenderness. No peripheral edema. NEUROLOGICAL: Cranial nerves II-XII intact. Normal speech. Normal gait. PSYCHIATRIC: Cooperative. Good eye contact. Appropriate mood and affect. SKIN: 5x5 cm open wound with wound vac in place suctioning on left scapula. Laboratory Results - last 24 hr 04/13/16 04/13/16 04/13/16 05:20 11:16 15:54 WBC RBC Hgb Hct MCV MCHC RDW Plt Count MPV Neutrophils % Lymphocytes % Monocytes % Eosinophils % Basophils % Sodium Potassium Chloride Carbon Dioxide Anion Gap BUN Creatinine POC Glucometer 191.47588 163.04538 Random Glucose Calcium Phosphorus Magnesium Iron 56 TIBC 140 L Iron Saturation 40 Random Vancomycin Blood Type Antibody Screen 04/13/16 04/13/1617 17:55 22:41 05:30 WBC 14.5 H 11.8 H RBC 3.16 L D 2.75 L Hgb 9.1 L D 7.9 L D Hct 27.5 L D 23.6 L MCV 87.1 85.7 MCHC 33.0 33.3 RDW 17.2 H 17.0 H Plt Count 202 228 MPV 8.3 9.0 Neutrophils % Lymphocytes % Monocytes % Eosinophils % Basophils % Sodium Potassium Chloride Carbon Dioxide Anion Gap BUN Creatinine POC Glucometer 138.36384 Random Glucose Calcium Phosphorus Magnesium Iron TIBC Iron Saturation Random Vancomycin Blood Type Antibody Screen 04/14/16 04/14/16 04/14/16 05:30 05:30 05:37 WBC RBC Hgb Hct MCV MCHC RDW Plt Count MPV Neutrophils % Lymphocytes % Monocytes % Eosinophils % Basophils % Sodium 141 Potassium 4.7 Chloride 110 H Carbon Dioxide 20 L Anion Gap 11 BUN 82 H Creatinine 3.3 H POC Glucometer 139.57760 Random Glucose 115 H Calcium 8.0 L Phosphorus 3.9 Magnesium 2.0 Iron TIBC Iron Saturation Random Vancomycin Blood Type A POSITIVE Antibody Screen Negative 04/14/16 04/14/16 04/14/16 08:45 12:20 12:20 WBC 13.3 H RBC 2.95 L Hgb 8.4 L Hct 25.6 L MCV 86.6 MCHC 33.0 RDW 16.9 H Plt Count 219 MPV 8.4 Neutrophils % 80.4 Lymphocytes % 6.0 L D Monocytes % 11.4 H Eosinophils % 1.7 Basophils % 0.5 Sodium 138 Potassium 4.4 Chloride 106 Carbon Dioxide 21 Anion Gap 11 BUN 77 H Creatinine 3.3 H POC Glucometer Random Glucose 213 H D Calcium 8.1 L Phosphorus Magnesium Iron TIBC Iron Saturation Random Vancomycin 6.979 Blood Type Antibody Screen Active Medications Generic Name Dose Route Start Last Admin Trade Name Freq PRN Reason Stop Dose Admin Acetaminophen 650 mg 04/14/16 11:44 Tylenol - PO Q6H PRN FEVER OR PAIN Albuterol/Ipratropium 1 amp 04/14/16 11:44 Duoneb - NEB Q6H PRN SHORTNESS OF BREATH Amiodarone HCl 100 mg 04/15/16 10:00 Cordarone - PO DAILY [facility] Brimonidine Tartrate 1 drop 04/14/16 22:00 Alphagan 0.2% - OU BID [facility] Folic Acid 1 mg 04/15/16 10:00 Folic Acid - PO DAILY [facility] Metronidazole 100 mls @ 100 mls/hr 04/14/16 18:00 Flagyl 500mg Premixed Ivpb - IVPB Q8H-IV [facility] Piperacillin Sod/Tazobactam Sod 50 mls @ 100 mls/hr 04/14/16 18:00 Zosyn 2.25gm Ivpb (Pre-Docked) IVPB Q8H-IV [facility] Insulin Aspart 1 vial 04/14/16 16:30 Novolog Vial Sliding Scale - SQ ACHS [facility] Protocol Isosorbide Dinitrate 20 mg 04/14/16 18:00 Isordil - PO BIDISORDIL [facility] Levothyroxine Sodium 50 mcg 04/15/16 07:00 Synthroid - PO DAILY@0700 [facility] Metoprolol Succinate 25 mg 04/14/16 22:00 Toprol Xl - PO BID [facility] Morphine Sulfate 2 mg 04/14/16 11:44 Morphine Injection - IVPUSH Q4H PRN PAIN Ranitidine HCl 150 mg 04/14/16 22:00 Zantac - PO BID [facility] Microbiology 04/10/16 19:53 Abscess Gram Stain - Final 04/10/16 11:50 Back Gram Stain - Final 04/10/16 19:53 Abscess Wound Culture - Preliminary Gram Positive Bacillus Gram Positive Bacillus#2 04/10/16 11:50 Back Wound Culture - Preliminary Diphtheroid/Corynebacterium Pending Organism ASSESSMENT/PLAN: 76 yo M with h/o CHF, HTN,hypothyroid, CKD, IDDM , aflutter on eliquis admitted to ICU s/p sharp excisional debridement of left back/shoulder skin and subcutaneous tissue, pulse irrigation and washout, VAC placement. Integumentary: * Wound is on VAC suction and draining. * Wound care as per surgery instruction. * Pain control with Morphine 2mg IV Q4H PRN Heme/Onc: * transfused 3 units PRBC's * h/h stable * seen by GI but GIB less likely, Most likely loss from wound vac. Neuro: * AAO x3 * Will continiue to monitor for signs of AMS Pulm: * Supplemental O2 to maintain O2 sat>90% * Duonebs Q6H * Budesonide/Formoterol Fumarate (Symbicort 80/4.5mcg -) 2 puff IH BID * Aspiration precautions. CV: * Holding diuretics for now * ECHO- 12/2014 showed mild LV dilatation, severe reduced LV func.Reduced LV relaxation.mild LA dilated. mod-severe mitral AC, mod /AR * Aflutter- Amiodarone HCl (Cordarone -) 200 mg PO DAILY and Metoprolol Succinate (Toprol Xl -) 50 mg PO DAILY * Bumetanide (Bumex -) 2 mg PO BID-held as per Nephrology * Clonidine (Catapres -) 0.2 mg PO DAILY * Hydralazine HCl (Apresoline -) 25 mg PO BID * Isosorbide Dinitrate (Isordil -) 20 mg PO BID * NO NORMAN/ARB or statin ? ID: * Seen by Dr. Ponce * cultures show gram + bacilli * Cont: * Piperacillin Sod/Tazobactam Sod (Zosyn 2.25gm Ivpb (Pre-Docked)) 50 mls @ 100 mls/hr IVPB Q8H-IV * Metronidazole (Flagyl 500mg Premixed Ivpb -) 100 mls @ 100 mls/hr IVPB Q8H-IV * Vanco level pending. * Consult appreciated. Renal: * Seen by Dr. Martinez recommends: * renal function improving. * IVF held due to possible overload. Glaucoma: * Brimonidine Tartrate (Alphagan 0.2% -) 1 drop OD BID * Timolol Maleate (Timoptic 0.5%) 1 drop OD BID Endocrine: * Levothyroxine Sodium (Synthroid -) 50 mcg PO DAILY * Insulin Aspart (Novolog Vial Sliding Scale -) 1 vial SQ ACHS * BGM ACHS * ADA diet. F/E/N: * No IVF * Hypekalemia and hypocalcemia resolved , will repeat BMP this PM * Clear liquid diet; to be advanced by surgery. DISPO: Transfer to Med/Surg Dispo: We will continue to follow the patient. Thank you for this consultative opportunity. Visit type - Emergency Visit Emergency Visit: Yes ED Registration Date: 04/10/16 Care time: The patient presented to the Emergency Department on the above date and was hospitalized for further evaluation of their emergent condition. - New Patient This patient is new to me today: No - Critical Care Critical Care patient: Yes Total Critical Care Time (in minutes): 32 Critical Care Statement: The care of this patient involved high complexity decision making to prevent further life threatening deterioration of the patient 's condition and/or to evalute & treat vital organ system(s) failure or risk of failure.
--- NOTE | 2016-04-14 15:51 | PN ---
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, Physician - Current Medication List Current Medications: Active Medications Acetaminophen (Tylenol -) 650 mg PO Q6H PRN PRN Reason: FEVER OR PAIN Albuterol/Ipratropium (Duoneb -) 1 amp NEB Q6H PRN PRN Reason: SHORTNESS OF BREATH Amiodarone HCl (Cordarone -) 100 mg PO DAILY [facility] Brimonidine Tartrate (Alphagan 0.2% -) 1 drop OU BID [facility] Folic Acid (Folic Acid -) 1 mg PO DAILY [facility] Metronidazole (Flagyl 500mg Premixed Ivpb -) 100 mls @ 100 mls/hr IVPB Q8H-IV [facility] Piperacillin Sod/Tazobactam Sod (Zosyn 2.25gm Ivpb (Pre-Docked)) 50 mls @ 100 mls/hr IVPB Q8H-IV [facility] Insulin Aspart (Novolog Vial Sliding Scale -) 1 vial SQ ACHS [facility] PRN Reason: Protocol Isosorbide Dinitrate (Isordil -) 20 mg PO BIDISORDIL [facility] Levothyroxine Sodium (Synthroid -) 50 mcg PO DAILY@0700 [facility] Metoprolol Succinate (Toprol Xl -) 25 mg PO BID [facility] Morphine Sulfate (Morphine Injection -) 2 mg IVPUSH Q4H PRN PRN Reason: PAIN Ranitidine HCl (Zantac -) 150 mg PO BID [facility] - Objective Vital Signs: Vital Signs Temperature 98.1 F 04/14/16 10:00 Pulse Rate 72 04/14/16 12:00 Respiratory Rate 18 04/14/16 12:00 Blood Pressure 112/60 04/14/16 10:00 O2 Sat by Pulse Oximetry (%) 100 04/14/16 08:00 Cardiovascular: Yes: S1, S2 Respiratory: Yes: CTA Bilaterally Gastrointestinal: Yes: Normal Bowel Sounds, Soft Edema: Yes Labs: CBC, BMP 04/14/16 12:20 04/14/16 12:20 INR, PTT INR 1.30 (0.82-1.09) H D 04/13/16 05:20 Problem List - Problems (1) Abscess Code(s): L02.91 - CUTANEOUS ABSCESS, UNSPECIFIED (2) Acute on chronic renal failure Code(s): N17.9 - ACUTE KIDNEY FAILURE, UNSPECIFIED N18.9 - CHRONIC KIDNEY DISEASE, UNSPECIFIED (3) Anemia Code(s): D64.9 - ANEMIA, UNSPECIFIED Qualifiers: Other causes of anemia: chronic disease, kidney (4) DMII (diabetes mellitus, type 2) Code(s): E11.9 - TYPE 2 DIABETES MELLITUS WITHOUT COMPLICATIONS Qualifiers: Diabetes mellitus complication detail: with other kidney complication Assessment/Plan (1) Abscess Assessment/Plan: S/P I&D IV ABX PER SURGERY Code(s): L02.91 - CUTANEOUS ABSCESS, UNSPECIFIED (2) Acute on chronic renal failure Assessment/Plan: MONITOR RENAL FUNCTION -> IMPROVED RENAL ON BOARD Code(s): N17.9 - ACUTE KIDNEY FAILURE, UNSPECIFIED N18.9 - CHRONIC KIDNEY DISEASE, UNSPECIFIED (3) DMII (diabetes mellitus, type 2) Assessment/Plan: BGM [facility] Code(s): E11.9 - TYPE 2 DIABETES MELLITUS WITHOUT COMPLICATIONS Qualifiers: Diabetes mellitus complication detail: with other kidney complication (4) Anemia Assessment/Plan: H/O DIVERTICULAR BLEED IN 2016 HGB 8.4 FOLLOW LABS GI CONSULT Code(s): D64.9 - ANEMIA, UNSPECIFIED Qualifiers: Other causes of anemia: chronic disease, kidney [employer]
--- NOTE | 2016-04-14 17:24 | PN ---
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 (short form) - Note 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: No acute events Denies pain at the VAC site In ICU Vital Signs Period Temp Pulse Resp BP Sys/Hubbard Pulse Ox Last 24 Hr 98.0 F-98.7 F 61-76 18-20 107-129/60-79 100-[address] VAC dressing removed. Wound granulating. Some necrotic debris noted in the deeper part of the cavity. The remaining cavity is significantly glass mould cleaner and pink. VAC reapplied and placed to 125mmHg of suction. CBC, BMP 04/14/16 12:20 04/14/16 12:20 Continue antibiotics Continue VAC therapy- WOUnd care/RN to change every Thursday, Thursday, and Thursday
--- NOTE | 2016-04-14 22:48 | PN ---
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 (short form) - Note 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: Patient seen and examined Denies any complaints Meds Acetaminophen (Tylenol -) 650 mg PO Q6H PRN PRN Reason: FEVER OR PAIN Albuterol/Ipratropium (Duoneb -) 1 amp NEB Q6H PRN PRN Reason: SHORTNESS OF BREATH Amiodarone HCl (Cordarone -) 100 mg PO DAILY [facility] Brimonidine Tartrate (Alphagan 0.2% -) 1 drop OU BID [facility] Folic Acid (Folic Acid -) 1 mg PO DAILY [facility] Metronidazole (Flagyl 500mg Premixed Ivpb -) 100 mls @ 100 mls/hr IVPB Q8H-IV [facility] Piperacillin Sod/Tazobactam Sod (Zosyn 2.25gm Ivpb (Pre-Docked)) 50 mls @ 100 mls/hr IVPB Q8H-IV [facility] Insulin Aspart (Novolog Vial Sliding Scale -) 1 vial SQ ACHS [facility] PRN Reason: Protocol Isosorbide Dinitrate (Isordil -) 20 mg PO BIDISORDIL [facility] Levothyroxine Sodium (Synthroid -) 50 mcg PO DAILY@0700 [facility] Metoprolol Succinate (Toprol Xl -) 25 mg PO BID [facility] Morphine Sulfate (Morphine Injection -) 2 mg IVPUSH Q4H PRN PRN Reason: PAIN Ranitidine HCl (Zantac -) 150 mg PO BID [facility] - Objective Vital Signs: Vital Signs Temperature 98.1 F 04/14/16 10:00 Pulse Rate 72 04/14/16 12:00 Respiratory Rate 18 04/14/16 12:00 Blood Pressure 112/60 04/14/16 10:00 O2 Sat by Pulse Oximetry (%) 100 04/14/16 08:00 Cardiovascular: Yes: S1, S2 Respiratory: Yes: CTA Bilaterally Gastrointestinal: Yes: Normal Bowel Sounds, Soft Edema: Yes Labs: CBC, BMP 04/14/16 12:20 04/14/16 12:20 INR, PTT INR 1.30 (0.82-1.09) H D 04/13/16 05:20 Problem List - Problems (1) Abscess Code(s): L02.91 - CUTANEOUS ABSCESS, UNSPECIFIED (2) Acute on chronic renal failure Code(s): N17.9 - ACUTE KIDNEY FAILURE, UNSPECIFIED N18.9 - CHRONIC KIDNEY DISEASE, UNSPECIFIED (3) Anemia Code(s): D64.9 - ANEMIA, UNSPECIFIED Qualifiers: Other causes of anemia: chronic disease, kidney (4) DMII (diabetes mellitus, type 2) Code(s): E11.9 - TYPE 2 DIABETES MELLITUS WITHOUT COMPLICATIONS Qualifiers: Diabetes mellitus complication detail: with other kidney complication A/P Anemia- Normocytic normochromic with a high RDW Suspect this to be a contribution of anemia of kidney disease, acute illness - iron studies, ferritin, c/w anemia of chronic disease, LDH (normal), B12 and folate normal, stool occult- negative heparin on hold will follow
[2016-04-15] MEDS: PIPERACILLIN/TAZOB 2.25 GM 50 ML IVPB SCH ×3 (01:12→17:32)
[2016-04-15] MEDS: METRONIDAZOLE 500 MG PREMIXED 100 ML IVPB SCH ×3 (02:17→17:32)
[2016-04-15] MEDS: INSULIN SLIDING SCALE (NOVOLOG) 1 VIAL SQ SCH ×4 (06:00→22:14)
[2016-04-15] MEDS: LEVOTHYROXINE NA 50 MCG TABLET (FP) PO SCH (06:01)
[2016-04-15 06:06] LABS: HAPTOGLOBIN 157 mg/dL (34-200)
[2016-04-15 07:43] LABS: BASOPHIL 0.4 % (0-2.0); EOSINOPHIL 1.9 % (0-4.5); MCH 28.9 pg (25.7-33.7); MCHC 33.5 g/dl (32.0-35.9); MEAN CELL VOLUME 86.2 fl (80-96); MEAN PLT VOLUME 8.3 fl (7.5-11.1); NEUTROPHILS 78.3 % (42.8-82.8); PLATELET COUNT 218 K/MM3 (134-434); RDW 17.1 % (11.9-15.9); WHITE BLOOD COUNT 12.3 K/mm3 (4.0-10.0)
[2016-04-15 07:53] LABS: ALBUMIN 2.1 g/dl (3.4-5.0); BILIRUBIN,TOTAL 0.7 mg/dL (0.2-1.0); CALCIUM 8.3 mg/dL (8.5-10.1)
[2016-04-15] MEDS ORDERED: PT OWN MED DRAWER 7, Y5N ONE ×2 (09:31→17:38)
[2016-04-15] MEDS: METOPROLOL SUCCINATE 25 MG TAB.SR.24H (FP) PO SCH ×2 (09:36→22:12)
[2016-04-15] MEDS: RANITIDINE HCL 150 MG TABLET (FP) PO SCH ×2 (09:36→22:14)
[2016-04-15] MEDS: FOLIC ACID 1 MG TABLET (FP) PO SCH (09:36)
[2016-04-15] MEDS: AMIODARONE HCL 200 MG TABLET (FP) PO SCH (09:37)
[2016-04-15] MEDS: ISOSORBIDE DINITRATE 20 MG TABLET (FP) PO SCH ×2 (09:37→17:38)
[2016-04-15] MEDS: BRIMONIDINE TARTRATE 0.2% OPHTHALMIC 5 ML BOTTLE OU SCH ×2 (09:42→22:14)
--- NOTE | 2016-04-15 10:54 | PN ---
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 (short form) - Note 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: Resting in NAD. No acute events overnight. Denies shortness of breath or chest pain. No fevers or chills. Wound vac in place. Intake & Output 04/12/16 04/13/16 04/14/16 04/15/16 23:59 23:59 23:59 23:59 Intake Total 2979 2213 1581 150 Output Total 1900 2050 1700 1000 Balance 1079 163 -119 -850 Weight 213 lb 10.047 oz 218 lb 8 oz 222 lb 14.4 oz 221 lb 6 oz Last Vital Signs Temp Pulse Resp BP Pulse Ox 97.8 F 73 16 121/69 100 04/15/16 09:00 04/15/16 09:00 04/15/16 09:00 04/15/16 09:00 04/14/16 21:00 Active Medications Acetaminophen (Tylenol -) 650 mg PO Q6H PRN PRN Reason: FEVER OR PAIN Albuterol/Ipratropium (Duoneb -) 1 amp NEB Q6H PRN PRN Reason: SHORTNESS OF BREATH Amiodarone HCl (Cordarone -) 100 mg PO DAILY [facility] Last Admin: 04/15/16 09:37 Dose: 100 mg Brimonidine Tartrate (Alphagan 0.2% -) 1 drop OU BID [facility] Last Admin: 04/15/16 09:42 Dose: 1 drop Folic Acid (Folic Acid -) 1 mg PO DAILY [facility] Last Admin: 04/15/16 09:36 Dose: 1 mg Metronidazole (Flagyl 500mg Premixed Ivpb -) 100 mls @ 100 mls/hr IVPB Q8H-IV [facility] Last Admin: 04/15/16 09:38 Dose: 100 mls/hr Piperacillin Sod/Tazobactam Sod (Zosyn 2.25gm Ivpb (Pre-Docked)) 50 mls @ 100 mls/hr IVPB Q8H-IV [facility] Last Admin: 04/15/16 09:42 Dose: 100 mls/hr Insulin Aspart (Novolog Vial Sliding Scale -) 1 vial SQ ACHS [facility] PRN Reason: Protocol Last Admin: 04/15/16 06:00 Dose: Not Given Isosorbide Dinitrate (Isordil -) 20 mg PO BIDISORDIL [facility] Last Admin: 01/31/17 09:37 Dose: 20 mg Levothyroxine Sodium (Synthroid -) 50 mcg PO DAILY@0700 [facility] Last Admin: 04/15/16 06:01 Dose: 50 mcg Metoprolol Succinate (Toprol Xl -) 25 mg PO BID [facility] Last Admin: 04/15/16 09:36 Dose: 25 mg Morphine Sulfate (Morphine Injection -) 2 mg IVPUSH Q4H PRN PRN Reason: PAIN Ranitidine HCl (Zantac -) 150 mg PO BID [facility] Last Admin: 04/15/16 09:36 Dose: 150 mg Gen: NAD at rest, (+) VAC Heart: RRR Lung: scattered basilar rales Abd: soft, nontender Ext: no edema Laboratory Results - last 24 hr 04/10/16 04/13/16 04/14/16 11:50 05:20 08:45 WBC RBC Hgb Hct MCV MCHC RDW Plt Count MPV Neutrophils % Lymphocytes % Monocytes % Eosinophils % Basophils % Haptoglobin 157 Sodium Potassium Chloride Carbon Dioxide Anion Gap BUN Creatinine Creat Clearance w eGFR POC Glucometer Random Glucose Calcium Total Bilirubin AST ALT Alkaline Phosphatase Total Protein Albumin Random Vancomycin 6.979 Blood Type A POSITIVE Antibody Screen Negative Crossmatch See Detail 04/14/16 04/14/16 04/14/16 12:20 12:20 20:35 WBC 13.3 H RBC 2.95 L Hgb 8.4 L Hct 25.6 L MCV 86.6 MCHC 33.0 RDW 16.9 H Plt Count 219 MPV 8.4 Neutrophils % 80.4 Lymphocytes % 6.0 L D Monocytes % 11.4 H Eosinophils % 1.7 Basophils % 0.5 Haptoglobin Sodium 138 Potassium 4.4 Chloride 106 Carbon Dioxide 21 Anion Gap 11 BUN 77 H Creatinine 3.3 H Creat Clearance w eGFR POC Glucometer 175 Random Glucose 213 H D Calcium 8.1 L Total Bilirubin AST ALT Alkaline Phosphatase Total Protein Albumin Random Vancomycin Blood Type Antibody Screen Crossmatch 04/15/16 04/15/16 04/15/16 05:56 06:15 06:15 WBC 12.3 H RBC 2.83 L Hgb 8.2 L Hct 24.4 L MCV 86.2 MCHC 33.5 RDW 17.1 H Plt Count 218 MPV 8.3 Neutrophils % 78.3 Lymphocytes % 6.7 L Monocytes % 12.7 H Eosinophils % 1.9 Basophils % 0.4 Haptoglobin Sodium 140 Potassium 4.4 Chloride 109 H Carbon Dioxide 22 Anion Gap 9 BUN 65 H Creatinine 3.0 H Creat Clearance w eGFR 20.45 POC Glucometer 126 Random Glucose 114 H D Calcium 8.3 L Total Bilirubin 0.7 D AST 13 L D ALT 11 L D Alkaline Phosphatase 62 Total Protein 6.0 L Albumin 2.1 L Random Vancomycin Blood Type Antibody Screen Crossmatch ASSESSMENT AND PLAN: Necrotic Shoulder Cutaneuous Abscess s/p debridement Sepsis improving Acute on Chronic Renal Failure Paroxysmal Atrial Flutter now in sinus LV Systolic Dysfunction CAD COPD HTN DM - VAC care per surgery - ABX - PO as tolerated - rate/rhythm controlled on metoprolol and amiodarone - resume anticoagulation when cleared Dr Farrell
--- NOTE | 2016-04-15 12:10 | PN ---
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 (short form) - Note 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: Chief Complaint: CASE, abscess History of Present Illness: denies sob or orthopnea; no cp, palpit Current Medications Acetaminophen (Tylenol -) 650 mg PO Q6H PRN PRN Reason: FEVER OR PAIN Albuterol/Ipratropium (Duoneb -) 1 amp NEB Q6H PRN PRN Reason: SHORTNESS OF BREATH Amiodarone HCl (Cordarone -) 100 mg PO DAILY [facility] Last Admin: 04/15/16 09:37 Dose: 100 mg Brimonidine Tartrate (Alphagan 0.2% -) 1 drop OU BID [facility] Last Admin: 04/15/16 09:42 Dose: 1 drop Folic Acid (Folic Acid -) 1 mg PO DAILY [facility] Last Admin: 04/15/16 09:36 Dose: 1 mg Metronidazole (Flagyl 500mg Premixed Ivpb -) 100 mls @ 100 mls/hr IVPB Q8H-IV [facility] Last Admin: 04/15/16 09:38 Dose: 100 mls/hr Piperacillin Sod/Tazobactam Sod (Zosyn 2.25gm Ivpb (Pre-Docked)) 50 mls @ 100 mls/hr IVPB Q8H-IV [facility] Last Admin: 04/15/16 09:42 Dose: 100 mls/hr Insulin Aspart (Novolog Vial Sliding Scale -) 1 vial SQ ACHS [facility] PRN Reason: Protocol Last Admin: 04/15/16 11:14 Dose: Not Given Isosorbide Dinitrate (Isordil -) 20 mg PO BIDISORDIL [facility] Last Admin: 04/15/16 09:37 Dose: 20 mg Levothyroxine Sodium (Synthroid -) 50 mcg PO DAILY@0700 [facility] Last Admin: 04/15/16 06:01 Dose: 50 mcg Metoprolol Succinate (Toprol Xl -) 25 mg PO BID [facility] Last Admin: 04/15/16 09:36 Dose: 25 mg Morphine Sulfate (Morphine Injection -) 2 mg IVPUSH Q4H PRN PRN Reason: PAIN Ranitidine HCl (Zantac -) 150 mg PO BID [facility] Last Admin: 04/15/16 09:36 Dose: 150 mg Vital Signs - 24 hr 04/14/16 04/14/16 04/14/16 14:00 16:00 16:35 Temperature 98.2 F Pulse Rate 76 72 77 Respiratory 18 18 16 Rate Blood Pressure 126/70 129/73 142/65 O2 Sat by Pulse Oximetry (%) 04/14/16 04/14/16 04/15/16 21:00 21:25 02:00 Temperature 98.2 F Pulse Rate 90 90 Respiratory 20 20 18 Rate Blood Pressure 140/94 119/70 O2 Sat by Pulse 100 Oximetry (%) 04/15/16 04/15/16 05:44 09:00 Temperature 97.9 F 97.8 F Pulse Rate 75 73 Respiratory 18 16 Rate Blood Pressure 139/79 121/69 O2 Sat by Pulse Oximetry (%) Intake & Output 04/13/16 04/14/16 04/15/16 04/16/16 07:59 07:59 07:59 07:59 Intake Total 2813 2213 800 Output Total 1999 1850 2200 Balance 813 363 -1400 Weight 218 lb 8 oz 222 lb 14.4 oz 221 lb 6 oz Constitutional: Yes: Well Nourished, No Distress, Calm Cardiovascular: Yes: Regular Rate and Rhythm, S1, S2. No: JVD, Gallop, Murmur Respiratory: Yes: Regular, CTA Bilaterally. No: Accessory Muscle Use, Rales, Wheezes Extremities: No: Cold Edema: No Neurological: Yes: Alert, Oriented Psychiatric: No: Agitated Labs: CBC, BMP 04/15/16 06:15 04/15/16 06:15 Laboratory Tests 04/11/16 04/15/16 05:40 06:15 INR 1.91 H Total Bilirubin 0.7 D AST 13 L D ALT 11 L D Alkaline Phosphatase 62 Albumin 2.1 L - ....Imaging EKG: Other (prior tele: NSR; NSVT 3b and 4b runs) Assessment/Plan echo here: severely decreased LV fn (global), nl rv. 1+ AR/MR. Mod MAC. 1+ TR. rvsp 30-40 mibi 10/2014: no ischemia, sev reduced lvef echo 10/2014 ([facility] [place]): definity used. mild lve, lvef 45%, nl rv, mild AR, sev lae , nl rvsp EKG: SR with pvc's. AV conduction delay, IVCD. lateral T wave flattening, similar to priors. tele: SR with pac's/pvc's. cannot rule out intermittent afib. a/p: 75 m hx non obs cad (cath 10/2014: only mild disease RCA), remote ME ( mentioned in prior charts, no further details, pt unclear of hx), syst chf (NICM , mild dec lvef), htn, copd, dm, ckd (cr 2's), aflutter on eliquis, here with subcutaneous abscess/sepsis/CASE. aflutter - remained in sinus here while on tele - cont amiodarone (tsh, lft's ok) and metoprolol - on eliquis as outpatient, currently on hold sec to anemia. - no active GIB suspected per GI, hgb incr'd s/p PRBCs then down 04/14 but ? erroneous value last night (as disc'd below) - 04/15 hgb stable, plan to start UFH (for reversibility) while monitor H/H trend , then ultimately resume eliquis prior to discharge, if hgb remains stable NICM - Currently does not appear volume overloaded. - Now off IVF. euvolemic - con't regimen of metoprolol, ( add back hydralazine, isordil as bp tolerates) - changed toprol 50 qd to 25 bid (bid dosing for lv dysfxn, as well as gentler on BP)- - holding diuretics due to CASE - not on NORMAN/ARB previously, presumably due to advanced CKD and/or labile creatinines--defer to outpt cardio f/u (sees business systems lead in dr boateng office now) - rpt echo with worsened LV function VTach: - brief runs (3-4 beats) on tele - K/Mag good - last EF relatively preserved --> now severely depressed. - cont BB as doing acute on chronic ckd - ? sec to sepsis, ? overtx (? inadvertently taking both torsemide and furosemide at home) - renal following, pt s/p with renal fxn improving markedly anemia: -hgb drifted down to <7 so received prbcs -hgb improved to 7s, then 9s, now back to 7s (04/14)--? 9 was erroneous, vs trending down again -seen by GI: has h/o gastric ulcers and diverticular bleeding in past, but no melena and guaiac neg here--i.e. no active GIB suspected -AC mgmt as above HTN -stable, adding back imdur hydralazine as mentioned above. non-obstructive CAD - Not on statin, will defer to outpatient business systems lead. - not on asa while hgb low here subcutaneous abscess, s/p I and D 04/11 - bp/hr stable post-op - surgery/ID following
[2016-04-15] MEDS ORDERED: HEPARIN NA (PORCINE) 5,000 UNITS/ML 1ML VIAL IVPUSH PRN ×2 (12:11)
--- NOTE | 2016-04-15 13:12 | PN ---
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 (short form) - Note 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: vac changed yesterday by surgeon patient without complaints Vital Signs Period Temp Pulse Resp BP Sys/Hubbard Pulse Ox Last 24 Hr 97.8 F-98.2 F 72-90 16-20 119-142/65-94 100 cor-rrr llungs clear abd soft,nt ext trace edema +cunningham vac in place CBC, BMP 04/15/16 06:15 04/15/16 06:15 Laboratory Tests 04/11/16 04/14/16 09:55 08:45 Random Vancomycin < 0.800 6.979 Microbiology 04/10/16 11:41 Blood - Peripheral Venous Blood Culture - Final NO GROWTH AFTER 5 DAYS INCUBATION 04/10/16 11:50 Blood - Peripheral Venous Blood Culture - Final NO GROWTH AFTER 5 DAYS INCUBATION 04/10/16 11:50 Back Gram Stain - Final 04/10/16 11:50 Back Wound Culture - Final Diphtheroid/Corynebacterium Lactobacillus Species 04/10/16 19:53 Abscess Gram Stain - Final 04/10/16 19:53 Abscess Wound Culture - Preliminary Gram Positive Bacillus Gram Positive Bacillus#2 a/p s/p drainage of abscess on back- vac in place and draining awaiting cultures redose vanco today continue zosyn/flagyl abdiaziz
[2016-04-15] MEDS ORDERED: VANCOMYCIN 1 GRAM (PRE-DOCKED) 250 ML IVPB ONE (13:15)
--- NOTE | 2016-04-15 13:29 | PN ---
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, Physician Chief Complaint: awake alert feels good +appetite +BM wound vac +drainage - Current Medication List Current Medications: Active Medications Acetaminophen (Tylenol -) 650 mg PO Q6H PRN PRN Reason: FEVER OR PAIN Albuterol/Ipratropium (Duoneb -) 1 amp NEB Q6H PRN PRN Reason: SHORTNESS OF BREATH Amiodarone HCl (Cordarone -) 100 mg PO DAILY [facility] Last Admin: 04/15/16 09:37 Dose: 100 mg Brimonidine Tartrate (Alphagan 0.2% -) 1 drop OU BID [facility] Last Admin: 04/15/16 09:42 Dose: 1 drop Folic Acid (Folic Acid -) 1 mg PO DAILY [facility] Last Admin: 04/15/16 09:36 Dose: 1 mg Heparin Sodium (Porcine) (Heparin -) 1,000 unit IVPUSH PRN PRN PRN Reason: Heparin Heparin Sodium (Porcine) (Heparin -) 5,000 unit IVPUSH PRN PRN PRN Reason: Heparin Hydralazine HCl (Apresoline -) 10 mg PO BID [facility] Metronidazole (Flagyl 500mg Premixed Ivpb -) 100 mls @ 100 mls/hr IVPB Q8H-IV [facility] Last Admin: 04/15/16 09:38 Dose: 100 mls/hr Piperacillin Sod/Tazobactam Sod (Zosyn 2.25gm Ivpb (Pre-Docked)) 50 mls @ 100 mls/hr IVPB Q8H-IV [facility] Last Admin: 04/15/16 09:42 Dose: 100 mls/hr Heparin Sodium (Porcine) 25, (000 unit/ Sodium Chloride) 500 mls @ 20 mls/hr IV TITR [facility]; 1,000 UNIT/HR PRN Reason: Protocol Vancomycin HCl (Vancomycin (Pre-Docked)) 250 mls @ 150 mls/hr IVPB ONCE ONE Stop: 04/15/16 14:54 Insulin Aspart (Novolog Vial Sliding Scale -) 1 vial SQ ACHS [facility] PRN Reason: Protocol Last Admin: 04/15/16 11:14 Dose: Not Given Isosorbide Dinitrate (Isordil -) 20 mg PO BIDISORDIL [facility] Last Admin: 04/15/16 09:37 Dose: 20 mg Levothyroxine Sodium (Synthroid -) 50 mcg PO DAILY@0700 [facility] Last Admin: 04/15/16 06:01 Dose: 50 mcg Metoprolol Succinate (Toprol Xl -) 25 mg PO BID [facility] Last Admin: 04/15/16 09:36 Dose: 25 mg Morphine Sulfate (Morphine Injection -) 2 mg IVPUSH Q4H PRN PRN Reason: PAIN Ranitidine HCl (Zantac -) 150 mg PO BID [facility] Last Admin: 04/15/16 09:36 Dose: 150 mg - Objective Vital Signs: Vital Signs Temperature 97.8 F 04/15/16 09:00 Pulse Rate 73 04/15/16 09:00 Respiratory Rate 16 04/15/16 09:00 Blood Pressure 121/69 04/15/16 09:00 O2 Sat by Pulse Oximetry (%) 100 04/14/16 21:00 Constitutional: Yes: No Distress Eyes: Yes: WNL HENT: Yes: WNL Neck: Yes: WNL Cardiovascular: Yes: Pulse Irregular Respiratory: Yes: WNL Gastrointestinal: Yes: WNL Genitourinary: Yes: Cunningham Present Musculoskeletal: Yes: Muscle Weakness Extremities: Yes: WNL Edema: Yes Wound/Incision: Yes: Dressing Dry and Intact, Other (wound vac with 100cc purelent discharge) Neurological: Yes: Other Psychiatric: Yes: Other Labs: CBC, BMP 04/15/16 06:15 04/15/16 06:15 INR, PTT INR 1.30 (0.82-1.09) H D 04/13/16 05:20 Problem List - Problems (1) Abscess Code(s): L02.91 - CUTANEOUS ABSCESS, UNSPECIFIED (2) Acute on chronic renal failure Code(s): N17.9 - ACUTE KIDNEY FAILURE, UNSPECIFIED N18.9 - CHRONIC KIDNEY DISEASE, UNSPECIFIED (3) Leukocytosis Code(s): D72.829 - ELEVATED WHITE BLOOD CELL COUNT, UNSPECIFIED Qualifiers: Leukocytosis type: unspecified Qualified Code(s): D72.829 - Elevated white blood cell count, unspecified (4) Anemia Code(s): D64.9 - ANEMIA, UNSPECIFIED Qualifiers: Other causes of anemia: chronic disease, kidney (5) Anticoagulated by anticoagulation treatment Code(s): Z79.01 - HR ADMINISTRATIVE ASSISTANT (CURRENT) USE OF ANTICOAGULANTS (6) Atrial flutter Code(s): I48.92 - UNSPECIFIED ATRIAL FLUTTER (7) CKD (chronic kidney disease), stage II Code(s): N18.2 - CHRONIC KIDNEY DISEASE, STAGE 2 (MILD) (8) Congestive heart failure (CHF) Code(s): I50.9 - HEART FAILURE, UNSPECIFIED Qualifiers: Congestive heart failure type: systolic Congestive heart failure chronicity: chronic Qualified Code(s): I50.22 - Chronic systolic (congestive ) heart failure (9) HTN (hypertension) Code(s): I10 - ESSENTIAL (PRIMARY) HYPERTENSION Qualifiers: Hypertension type: essential hypertension Qualified Code(s): I10 - Essential (primary) hypertension (10) Hyperkalemia Code(s): E87.5 - HYPERKALEMIA (11) Paroxysmal atrial flutter Code(s): I48.92 - UNSPECIFIED ATRIAL FLUTTER (12) Unsteady gait Code(s): R26.81 - UNSTEADINESS ON FEET Assessment/Plan NEPHROLOGY WORKUP, STOP DIURETICS AND KCL IVF stopped on iv heparin dc cunningham and observe IV ABX await cultures WOUND CARE SURGERY SUSANNA GAINES I AND D appreciated AC ON ELIQUIS bridge from heparin
[2016-04-15] MEDS: HEPARIN - 25,000 UNIT in SODIUM CHLORIDE 495 ML IV SCH (13:56)
[2016-04-15] MEDS: ACETAMINOPHEN 325 MG TABLET (FP) PO PRN (16:10)
--- NOTE | 2016-04-15 17:48 | PN ---
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, Physician History of Present Illness: Pt seen and examined at bedside. He is awake and alert. He appears comfortable. - Current Medication List Current Medications: Active Medications Acetaminophen (Tylenol -) 650 mg PO Q6H PRN PRN Reason: FEVER OR PAIN Last Admin: 04/15/16 16:10 Dose: 650 mg Albuterol/Ipratropium (Duoneb -) 1 amp NEB Q6H PRN PRN Reason: SHORTNESS OF BREATH Amiodarone HCl (Cordarone -) 100 mg PO DAILY [facility] Last Admin: 04/15/16 09:37 Dose: 100 mg Brimonidine Tartrate (Alphagan 0.2% -) 1 drop OU BID [facility] Last Admin: 04/15/16 09:42 Dose: 1 drop Folic Acid (Folic Acid -) 1 mg PO DAILY [facility] Last Admin: 04/15/16 09:36 Dose: 1 mg Heparin Sodium (Porcine) (Heparin -) 1,000 unit IVPUSH PRN PRN PRN Reason: Heparin Heparin Sodium (Porcine) (Heparin -) 5,000 unit IVPUSH PRN PRN PRN Reason: Heparin Hydralazine HCl (Apresoline -) 10 mg PO BID [facility] Metronidazole (Flagyl 500mg Premixed Ivpb -) 100 mls @ 100 mls/hr IVPB Q8H-IV [facility] Last Admin: 04/15/16 17:32 Dose: 100 mls/hr Piperacillin Sod/Tazobactam Sod (Zosyn 2.25gm Ivpb (Pre-Docked)) 50 mls @ 100 mls/hr IVPB Q8H-IV [facility] Last Admin: 04/15/16 17:32 Dose: 100 mls/hr Heparin Sodium (Porcine) 25, (000 unit/ Sodium Chloride) 500 mls @ 20 mls/hr IV TITR [facility]; 1,000 UNIT/HR PRN Reason: Protocol Last Admin: 04/15/16 13:56 Dose: 20 mls/hr Insulin Aspart (Novolog Vial Sliding Scale -) 1 vial SQ ACHS [facility] PRN Reason: Protocol Last Admin: 04/15/16 16:21 Dose: Not Given Isosorbide Dinitrate (Isordil -) 20 mg PO BIDISORDIL [facility] Last Admin: 04/15/16 17:38 Dose: 20 mg Levothyroxine Sodium (Synthroid -) 50 mcg PO DAILY@0700 [facility] Last Admin: 04/15/16 06:01 Dose: 50 mcg Metoprolol Succinate (Toprol Xl -) 25 mg PO BID [facility] Last Admin: 04/15/16 09:36 Dose: 25 mg Morphine Sulfate (Morphine Injection -) 2 mg IVPUSH Q4H PRN PRN Reason: PAIN Ranitidine HCl (Zantac -) 150 mg PO BID [facility] Last Admin: 04/15/16 09:36 Dose: 150 mg - Objective Vital Signs: Vital Signs Temperature 97.7 F 04/15/16 14:00 Pulse Rate 68 04/15/16 14:00 Respiratory Rate 17 04/15/16 14:00 Blood Pressure 121/69 04/15/16 09:00 O2 Sat by Pulse Oximetry (%) 100 04/14/16 21:00 Constitutional: Yes: Calm Eyes: Yes: Conjunctiva Clear HENT: Yes: Atraumatic Neck: Yes: Supple Cardiovascular: Yes: S1, S2 Respiratory: Yes: CTA Bilaterally Gastrointestinal: Yes: Soft, Abdomen, Obese Genitourinary: Yes: López Present Edema: Yes Edema: LLE: Trace, RLE: Trace Neurological: Yes: Oriented Psychiatric: Yes: Oriented Labs: CBC, BMP 04/15/16 06:15 04/15/16 06:15 INR, PTT INR 1.30 (0.82-1.09) H D 04/13/16 05:20 Problem List - Problems (1) Abscess Code(s): L02.91 - CUTANEOUS ABSCESS, UNSPECIFIED (2) Acute on chronic renal failure Code(s): N17.9 - ACUTE KIDNEY FAILURE, UNSPECIFIED N18.9 - CHRONIC KIDNEY DISEASE, UNSPECIFIED (3) Leukocytosis Code(s): D72.829 - ELEVATED WHITE BLOOD CELL COUNT, UNSPECIFIED Qualifiers: Leukocytosis type: unspecified Qualified Code(s): D72.829 - Elevated white blood cell count, unspecified (4) Anemia Code(s): D64.9 - ANEMIA, UNSPECIFIED Qualifiers: Other causes of anemia: chronic disease, kidney (5) Congestive heart failure (CHF) Code(s): I50.9 - HEART FAILURE, UNSPECIFIED Qualifiers: Congestive heart failure type: systolic Congestive heart failure chronicity: chronic Qualified Code(s): I50.22 - Chronic systolic (congestive ) heart failure (6) DMII (diabetes mellitus, type 2) Code(s): E11.9 - TYPE 2 DIABETES MELLITUS WITHOUT COMPLICATIONS Qualifiers: Diabetes mellitus complication detail: with other kidney complication (7) HTN (hypertension) Code(s): I10 - ESSENTIAL (PRIMARY) HYPERTENSION Qualifiers: Hypertension type: essential hypertension Qualified Code(s): I10 - Essential (primary) hypertension (8) Hyperkalemia Code(s): E87.5 - HYPERKALEMIA Assessment/Plan Current Medications Generic Name Dose Route Start Last Admin Trade Name Freq PRN Reason Stop Dose Admin Acetaminophen 650 mg 04/14/16 11:44 04/15/16 16:10 Tylenol - PO 650 mg Q6H PRN Administration FEVER OR PAIN Albuterol/Ipratropium 1 amp 04/14/16 11:44 Duoneb - NEB Q6H PRN SHORTNESS OF BREATH Amiodarone HCl 100 mg 04/15/16 10:00 04/15/16 09:37 Cordarone - PO 100 mg DAILY [facility] Administration Brimonidine Tartrate 1 drop 04/14/16 22:00 04/15/16 09:42 Alphagan 0.2% - OU 1 drop BID [facility] Administration Folic Acid 1 mg 04/15/16 10:00 04/15/16 09:36 Folic Acid - PO 1 mg DAILY [facility] Administration Heparin Sodium (Porcine) 1,000 unit 04/15/16 12:11 Heparin - IVPUSH PRN PRN Heparin Heparin Sodium (Porcine) 5,000 unit 04/15/16 12:11 Heparin - IVPUSH PRN PRN Heparin Hydralazine HCl 10 mg 04/15/16 22:00 Apresoline - PO BID [facility] Metronidazole 100 mls @ 100 mls/hr 04/14/16 18:00 04/15/16 17:32 Flagyl 500mg Premixed Ivpb - IVPB 100 mls/hr Q8H-IV [facility] Administration Piperacillin Sod/Tazobactam Sod 50 mls @ 100 mls/hr 04/14/16 18:00 04/15/16 17: 32 Zosyn 2.25gm Ivpb (Pre-Docked) IVPB 100 mls/hr Q8H-IV [facility] Administration Heparin Sodium (Porcine) 25, 500 mls @ 20 mls/hr 04/15/16 12:15 04/15/16 13:56 000 unit/ Sodium Chloride IV 20 mls/hr TITR [facility] Administration Protocol 1,000 UNIT/HR Insulin Aspart 1 vial 04/14/16 16:30 04/15/16 16:21 Novolog Vial Sliding Scale - SQ Not Given ACHS [facility] Protocol Isosorbide Dinitrate 20 mg 04/14/16 18:00 04/15/16 17:38 Isordil - PO 20 mg BIDISORDIL [facility] Administration Levothyroxine Sodium 50 mcg 04/15/16 07:00 04/15/16 06:01 Synthroid - PO 50 mcg DAILY@0700 [facility] Administration Metoprolol Succinate 25 mg 04/14/16 22:00 04/15/16 09:36 Toprol Xl - PO 25 mg BID [facility] Administration Morphine Sulfate 2 mg 04/14/16 11:44 Morphine Injection - IVPUSH Q4H PRN PAIN Ranitidine HCl 150 mg 04/14/16 22:00 04/15/16 09:36 Zantac - PO 150 mg BID [facility] Administration Impression 1. CASE 2. hyperkalemia 3. cellulitis/abscess of back 4. CHF 5. hypothyroidism 6. hyperlipidemia 7. COPD 8. htn 9. sepsis Plan - renal function is improving - potassium is improved - will re-evaluate for diuretics in am - keep fluids on hold - cont with abx - cont with wound care Dr Martinez
[2016-04-15] MEDS: hydrALAZINE HCL 10 MG TABLET PO SCH (22:12)
[2016-04-16] MEDS: METRONIDAZOLE 500 MG PREMIXED 100 ML IVPB SCH ×3 (02:21→17:38)
[2016-04-16] MEDS: PIPERACILLIN/TAZOB 2.25 GM 50 ML IVPB SCH ×3 (02:30→17:38)
[2016-04-16] MEDS: INSULIN SLIDING SCALE (NOVOLOG) 1 VIAL SQ SCH ×4 (06:26→21:45)
[2016-04-16] MEDS: LEVOTHYROXINE NA 50 MCG TABLET (FP) PO SCH (06:32)
--- NOTE | 2016-04-16 08:08 | PN ---
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, Physician Chief Complaint: AWAKE ALERT NAD SLEPT WELL EATING BREAKFAST WOUND VAC + DISCHARGE - Current Medication List Current Medications: Active Medications Acetaminophen (Tylenol -) 650 mg PO Q6H PRN PRN Reason: FEVER OR PAIN Last Admin: 04/15/16 16:10 Dose: 650 mg Albuterol/Ipratropium (Duoneb -) 1 amp NEB Q6H PRN PRN Reason: SHORTNESS OF BREATH Amiodarone HCl (Cordarone -) 100 mg PO DAILY [facility] Last Admin: 04/15/16 09:37 Dose: 100 mg Brimonidine Tartrate (Alphagan 0.2% -) 1 drop OU BID [facility] Last Admin: 04/15/16 22:14 Dose: 1 drop Folic Acid (Folic Acid -) 1 mg PO DAILY [facility] Last Admin: 04/15/16 09:36 Dose: 1 mg Heparin Sodium (Porcine) (Heparin -) 1,000 unit IVPUSH PRN PRN PRN Reason: Heparin Heparin Sodium (Porcine) (Heparin -) 5,000 unit IVPUSH PRN PRN PRN Reason: Heparin Last Admin: 04/16/16 00:30 Dose: 5,000 unit Hydralazine HCl (Apresoline -) 10 mg PO BID [facility] Last Admin: 04/15/16 22:12 Dose: Not Given Metronidazole (Flagyl 500mg Premixed Ivpb -) 100 mls @ 100 mls/hr IVPB Q8H-IV [facility] Last Admin: 04/16/16 02:21 Dose: 100 mls/hr Piperacillin Sod/Tazobactam Sod (Zosyn 2.25gm Ivpb (Pre-Docked)) 50 mls @ 100 mls/hr IVPB Q8H-IV [facility] Last Admin: 04/16/16 02:30 Dose: 100 mls/hr Heparin Sodium (Porcine) 25, (000 unit/ Sodium Chloride) 500 mls @ 20 mls/hr IV TITR [facility]; 1,000 UNIT/HR PRN Reason: Protocol Last Titration: 04/16/16 00:30 Dose: 1,150 unit/hr Insulin Aspart (Novolog Vial Sliding Scale -) 1 vial SQ ACHS [facility] PRN Reason: Protocol Last Admin: 04/16/16 06:26 Dose: Not Given Isosorbide Dinitrate (Isordil -) 20 mg PO BIDISORDIL [facility] Last Admin: 04/15/16 17:38 Dose: 20 mg Levothyroxine Sodium (Synthroid -) 50 mcg PO DAILY@0700 [facility] Last Admin: 04/16/16 06:32 Dose: 50 mcg Metoprolol Succinate (Toprol Xl -) 25 mg PO BID [facility] Last Admin: 04/15/16 22:12 Dose: Not Given Morphine Sulfate (Morphine Injection -) 2 mg IVPUSH Q4H PRN PRN Reason: PAIN Ranitidine HCl (Zantac -) 150 mg PO BID [facility] Last Admin: 04/15/16 22:14 Dose: 150 mg - Objective Vital Signs: Vital Signs Temperature 98.2 F 04/16/16 06:00 Pulse Rate 68 04/16/16 06:00 Respiratory Rate 20 04/16/16 06:00 Blood Pressure 114/71 04/16/16 06:00 O2 Sat by Pulse Oximetry (%) 100 04/15/16 21:00 Constitutional: Yes: No Distress Eyes: Yes: WNL HENT: Yes: WNL Neck: Yes: WNL Cardiovascular: Yes: Pulse Irregular Respiratory: Yes: WNL Gastrointestinal: Yes: WNL Genitourinary: Yes: WNL Musculoskeletal: Yes: Muscle Weakness Extremities: Yes: WNL Edema: Yes Edema: LLE: 1+, RLE: 1+ Peripheral Pulses WNL: Yes Integumentary: Yes: Other Wound/Incision: Yes: Dressing Dry and Intact, Other (WOUND VAC TO LEFT UPPER SCAPULA/THORACIC WITH PURELENT FROTH DISCHARGE) ...Motor Strength: LLE, RLE Psychiatric: Yes: Other Labs: CBC, BMP 04/15/16 06:15 INR, PTT INR 1.30 (0.82-1.09) H D 04/13/16 05:20 Problem List - Problems (1) Abscess Code(s): L02.91 - CUTANEOUS ABSCESS, UNSPECIFIED (2) Acute on chronic renal failure Code(s): N17.9 - ACUTE KIDNEY FAILURE, UNSPECIFIED N18.9 - CHRONIC KIDNEY DISEASE, UNSPECIFIED (3) Leukocytosis Code(s): D72.829 - ELEVATED WHITE BLOOD CELL COUNT, UNSPECIFIED Qualifiers: Leukocytosis type: unspecified Qualified Code(s): D72.829 - Elevated white blood cell count, unspecified (4) Anemia Code(s): D64.9 - ANEMIA, UNSPECIFIED Qualifiers: Other causes of anemia: chronic disease, kidney (5) Anticoagulated by anticoagulation treatment Code(s): Z79.01 - MCC (CURRENT) USE OF ANTICOAGULANTS (6) Atrial flutter Code(s): I48.92 - UNSPECIFIED ATRIAL FLUTTER (7) CKD (chronic kidney disease), stage II Code(s): N18.2 - CHRONIC KIDNEY DISEASE, STAGE 2 (MILD) (8) Congestive heart failure (CHF) Code(s): I50.9 - HEART FAILURE, UNSPECIFIED Qualifiers: Congestive heart failure type: systolic Congestive heart failure chronicity: chronic Qualified Code(s): I50.22 - Chronic systolic (congestive ) heart failure (9) HTN (hypertension) Code(s): I10 - ESSENTIAL (PRIMARY) HYPERTENSION Qualifiers: Hypertension type: essential hypertension Qualified Code(s): I10 - Essential (primary) hypertension (10) Hyperkalemia Code(s): E87.5 - HYPERKALEMIA (11) Paroxysmal atrial flutter Code(s): I48.92 - UNSPECIFIED ATRIAL FLUTTER (12) Unsteady gait Code(s): R26.81 - UNSTEADINESS ON FEET Assessment/Plan IV ABX PER ID, STILL AWAITING SENSITIVITY WILL NEED IV ABX AT [facility], I WILL DISCUSS WITH ID IF PICC LINE IS NEEDED. HEPARIN IV BRIDGE TO ELIQUIS TODAY, CARDIOLOGY TO DECIDE WHEN TO STOP HEPARIN IV DRIP. RATE CONTROL AFIB/FLUTTER +BM, +APPETITE WOUND VAC CONTINUED
[2016-04-16] MEDS: HEPARIN - 25,000 UNIT in SODIUM CHLORIDE 495 ML IV SCH (08:31)
[2016-04-16] MEDS: ZINC SULFATE 220 MG CAPSULE (FP) PO SCH (10:18)
[2016-04-16] MEDS: MULTIVITAMINS (DAILY MVI) TABLET (FP) PO SCH (10:18)
[2016-04-16] MEDS: FOLIC ACID 1 MG TABLET (FP) PO SCH (10:18)
[2016-04-16] MEDS: AMIODARONE HCL 200 MG TABLET (FP) PO SCH (10:18)
[2016-04-16] MEDS: ASCORBIC ACID 500 MG TABLET (FP) PO SCH (10:18)
[2016-04-16] MEDS: RANITIDINE HCL 150 MG TABLET (FP) PO SCH ×2 (10:19→21:59)
[2016-04-16] MEDS: METOPROLOL SUCCINATE 25 MG TAB.SR.24H (FP) PO SCH ×2 (10:19→21:58)
[2016-04-16] MEDS ORDERED: oxyCODONE HCL 5 MG TABLET PO ONE (10:27)
[2016-04-16] MEDS: BRIMONIDINE TARTRATE 0.2% OPHTHALMIC 5 ML BOTTLE OU SCH ×2 (10:28→21:42)
[2016-04-16] MEDS ORDERED: PT OWN MED DRAWER 7, Y5N ONE ×4 (10:30→17:31)
[2016-04-16] MEDS: hydrALAZINE HCL 10 MG TABLET PO SCH ×2 (10:31→21:58)
[2016-04-16] MEDS: ISOSORBIDE DINITRATE 20 MG TABLET (FP) PO SCH ×2 (10:31→17:38)
--- NOTE | 2016-04-16 11:23 | PN ---
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 (short form) - Note 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: s:denies sob or orthopnea; no cp, palpit, dizzy Current Medications Generic Name Dose Route Start Last Admin Trade Name Freq PRN Reason Stop Dose Admin Acetaminophen 650 mg 04/14/16 11:44 04/15/16 16:10 Tylenol - PO 650 mg Q6H PRN Administration FEVER OR PAIN Albuterol/Ipratropium 1 amp 04/14/16 11:44 Duoneb - NEB Q6H PRN SHORTNESS OF BREATH Amino Acids 30 ml 04/16/16 17:30 Prostat Sugar-Free Packet - PO BID@0800,1730 [facility] Amiodarone HCl 100 mg 04/15/16 10:00 04/16/16 10:18 Cordarone - PO 100 mg DAILY [facility] Administration Ascorbic Acid 500 mg 04/16/16 10:00 04/16/16 10:18 Vitamin C - PO 500 mg DAILY [facility] Administration Brimonidine Tartrate 1 drop 04/14/16 22:00 04/16/16 10:28 Alphagan 0.2% - OU 1 drop BID [facility] Administration Folic Acid 1 mg 04/15/16 10:00 04/16/16 10:18 Folic Acid - PO 1 mg DAILY [facility] Administration Heparin Sodium (Porcine) 1,000 unit 04/15/16 12:11 Heparin - IVPUSH PRN PRN Heparin Heparin Sodium (Porcine) 5,000 unit 04/15/16 12:11 04/16/16 00:30 Heparin - IVPUSH 5,000 unit PRN PRN Administration Heparin Hydralazine HCl 10 mg 04/15/16 22:00 04/16/16 10:31 Apresoline - PO 10 mg BID [facility] Administration Metronidazole 100 mls @ 100 mls/hr 04/14/16 18:00 04/16/16 10:29 Flagyl 500mg Premixed Ivpb - IVPB 100 mls/hr Q8H-IV [facility] Administration Piperacillin Sod/Tazobactam Sod 50 mls @ 100 mls/hr 04/14/16 18:00 04/16/16 10: 20 Zosyn 2.25gm Ivpb (Pre-Docked) IVPB 100 mls/hr Q8H-IV [facility] Administration Heparin Sodium (Porcine) 25, 500 mls @ 20 mls/hr 04/15/16 12:15 04/16/16 08:31 000 unit/ Sodium Chloride IV 23 mls/hr TITR [facility] Administration Protocol 1,000 UNIT/HR Insulin Aspart 1 vial 04/14/16 16:30 04/16/16 06:26 Novolog Vial Sliding Scale - SQ Not Given ACHS [facility] Protocol Isosorbide Dinitrate 20 mg 04/14/16 18:00 04/16/16 10:31 Isordil - PO 20 mg BIDISORDIL [facility] Administration Levothyroxine Sodium 50 mcg 04/15/16 07:00 04/16/16 06:32 Synthroid - PO 50 mcg DAILY@0700 [facility] Administration Metoprolol Succinate 25 mg 04/14/16 22:00 04/16/16 10:19 Toprol Xl - PO 25 mg BID [facility] Administration Morphine Sulfate 2 mg 04/14/16 11:44 Morphine Injection - IVPUSH Q4H PRN PAIN Multivitamins/Minerals/Vitamin C 1 tab 04/16/16 10:00 04/16/16 10:18 Tab-A-Vit - PO 1 tab DAILY [facility] Administration Ranitidine HCl 150 mg 04/14/16 22:00 04/16/16 10:19 Zantac - PO 150 mg BID [facility] Administration Zinc Sulfate 220 mg 04/16/16 10:00 04/16/16 10:18 Orazinc - PO 220 mg DAILY [facility] Administration Vital Signs Period Temp Pulse Resp BP Sys/Hubbard Pulse Ox Last 24 Hr 97 F-98.2 F 64-79 17-20 105-134/56-77 100 Constitutional: Yes: Well Nourished, No Distress, Calm Cardiovascular: Yes: Regular Rate and Rhythm, S1, S2. No: JVD, Gallop, Murmur Respiratory: Yes: Regular, CTA Bilaterally. No: Accessory Muscle Use, Rales, Wheezes Extremities: No: Cold Edema: No Neurological: Yes: Alert, Oriented Psychiatric: No: Agitated no jaundice diaphoresis CBC, BMP 04/15/16 06:15 04/16/16 07:15 echo 03/2016: severely decreased LV fn (global), nl rv. 1+ AR/MR. Mod MAC. 1+ TR. rvsp 30-40 mibi 10/2014: no ischemia, sev reduced lvef echo 10/2014 ([facility] [place]): definity used. mild lve, lvef 45%, nl rv, mild AR, sev lae , nl rvsp EKG: SR with pvc's. AV conduction delay, IVCD. lateral T wave flattening, similar to priors. tele: SR with pac's/pvc's. cannot rule out intermittent afib. a/p: 75 m hx non obs cad (cath 10/2014: only mild disease RCA), remote [place] ( mentioned in prior charts, no further details, pt unclear of hx), syst chf (NICM , mild dec lvef), htn, copd, dm, ckd (cr 2's), aflutter on eliquis, here with subcutaneous abscess/sepsis/CASE. aflutter - remained in sinus here while on tele - cont amiodarone (tsh, lft's ok) and metoprolol - on eliquis as outpatient, currently on hold sec to anemia. - no active GIB suspected per GI, hgb stable s/p PRBC, so hep gtt started and hgb stable today so will change back to home eliquis dose now NICM - rpt echo with worsened LV function - Currently does not appear volume overloaded. - Now off IVF. euvolemic - con't regimen of metoprolol, ( add back hydralazine, isordil as bp tolerates) - changed toprol 50 qd to 25 bid (bid dosing for lv dysfxn, as well as gentler on BP)- - holding diuretics due to CASE, resume home torsemide when cr stable - not on NORMAN/ARB previously, presumably due to advanced CKD and/or labile creatinines--defer to outpt cardio f/u (sees insole stiffener in dr boateng office now) VTach: - brief runs (3-4 beats) on tele - K/Mag good - last EF relatively preserved --> now severely depressed. - cont BB as doing, outpt cardiology f/u acute on chronic ckd - ? sec to sepsis, ? overtx (? inadvertently taking both torsemide and furosemide at home) - renal following, pt s/p ivfs with renal fxn improving anemia: -hgb drifted down to <7 so received prbcs -seen by GI: has h/o gastric ulcers and diverticular bleeding in past, but no melena and guaiac neg here--i.e. no active GIB suspected -AC mgmt as above HTN -stable on current meds non-obstructive CAD - Not on statin, will defer to outpatient insole stiffener. - on AC subcutaneous abscess, s/p I and D 04/11 - bp/hr stable post-op - surgery/ID following
--- NOTE | 2016-04-16 12:02 | PN ---
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, Physician History of Present Illness: No c/o L shoulder pain Afebrile - Current Medication List Current Medications: Active Medications Acetaminophen (Tylenol -) 650 mg PO Q6H PRN PRN Reason: FEVER OR PAIN Last Admin: 04/15/16 16:10 Dose: 650 mg Albuterol/Ipratropium (Duoneb -) 1 amp NEB Q6H PRN PRN Reason: SHORTNESS OF BREATH Amino Acids (Prostat Sugar-Free Packet -) 30 ml PO BID@0800,1730 [facility] Amiodarone HCl (Cordarone -) 100 mg PO DAILY [facility] Last Admin: 04/16/16 10:18 Dose: 100 mg Apixaban (Eliquis -) 5 mg PO BID [facility] Ascorbic Acid (Vitamin C -) 500 mg PO DAILY [facility] Last Admin: 04/16/16 10:18 Dose: 500 mg Brimonidine Tartrate (Alphagan 0.2% -) 1 drop OU BID [facility] Last Admin: 04/16/16 10:28 Dose: 1 drop Folic Acid (Folic Acid -) 1 mg PO DAILY [facility] Last Admin: 04/16/16 10:18 Dose: 1 mg Hydralazine HCl (Apresoline -) 10 mg PO BID [facility] Last Admin: 04/16/16 10:31 Dose: 10 mg Metronidazole (Flagyl 500mg Premixed Ivpb -) 100 mls @ 100 mls/hr IVPB Q8H-IV [facility] Last Admin: 04/16/16 10:29 Dose: 100 mls/hr Piperacillin Sod/Tazobactam Sod (Zosyn 2.25gm Ivpb (Pre-Docked)) 50 mls @ 100 mls/hr IVPB Q8H-IV [facility] Last Admin: 04/16/16 10:20 Dose: 100 mls/hr Insulin Aspart (Novolog Vial Sliding Scale -) 1 vial SQ ACHS [facility] PRN Reason: Protocol Last Admin: 04/16/16 06:26 Dose: Not Given Isosorbide Dinitrate (Isordil -) 20 mg PO BIDISORDIL [facility] Last Admin: 04/16/16 10:31 Dose: 20 mg Levothyroxine Sodium (Synthroid -) 50 mcg PO DAILY@0700 [facility] Last Admin: 04/16/16 06:32 Dose: 50 mcg Metoprolol Succinate (Toprol Xl -) 25 mg PO BID [facility] Last Admin: 04/16/16 10:19 Dose: 25 mg Morphine Sulfate (Morphine Injection -) 2 mg IVPUSH Q4H PRN PRN Reason: PAIN Multivitamins/Minerals/Vitamin C (Tab-A-Vit -) 1 tab PO DAILY [facility] Last Admin: 04/16/16 10:18 Dose: 1 tab Ranitidine HCl (Zantac -) 150 mg PO BID [facility] Last Admin: 04/16/16 10:19 Dose: 150 mg Zinc Sulfate (Orazinc -) 220 mg PO DAILY [facility] Last Admin: 04/16/16 10:18 Dose: 220 mg - Objective Vital Signs: Vital Signs Temperature 98.0 F 04/16/16 08:22 Pulse Rate 79 04/16/16 08:22 Respiratory Rate 20 04/16/16 08:22 Blood Pressure 134/77 04/16/16 08:22 O2 Sat by Pulse Oximetry (%) 100 04/16/16 09:00 Constitutional: Yes: No Distress Eyes: Yes: Conjunctiva Clear Cardiovascular: Yes: Regular Rate and Rhythm, S1, S2 Respiratory: Yes: CTA Bilaterally Gastrointestinal: Yes: Normal Bowel Sounds, Soft. No: Tenderness Integumentary: Yes: Other (VAC in place L shoulder) Labs: CBC, BMP 04/15/16 06:15 04/16/16 07:15 INR, PTT INR 1.30 (0.82-1.09) H D 04/13/16 05:20 Assessment/Plan S/P I&D L shoulder ST abscess Continue zosyn/ flagyl Local wound care
[2016-04-16] MEDS ORDERED: INSULIN (NOVOLOG) ASPART 100 UNITS/ML 10ML VIAL ONE (12:32)
[2016-04-16] MEDS: APIXABAN 5 MG TABLET PO SCH ×2 (12:34→21:46)
--- NOTE | 2016-04-16 13:19 | PN ---
[id number] some pain with the dressing change and was medicated with oral oxycodone(prior) and IV morphine. Vital Signs Period Temp Pulse Resp BP Sys/Hubbard Pulse Ox Last 24 Hr 97 F-98.2 F 64-79 17-20 105-134/56-77 100-100 PE: GEN: appeared uncomfortable with dressing change Left shoulder: inferior and medial/upper aspect undermined 4 cm. Overall, opening size is 7 x 5cm. the base is granulating pink tissue. I the superior aspect the undermined tissue has minimal thin layer of slough. The inferior aspect has necrotic/foul tissue which was debrided with 4x4 gauze/forceps. The wound was repacked with wet to dry kerlix. CBC, BMP 04/15/16 06:15 04/16/16 07:15 <Ashleigh Bartholomew - Last Filed: 04/16/16 13:22> - Note 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: Agree AVSS Wound- dressing changed WBC 12 H/H stable Continue antibiotics per ID Continue wound care Can restart anticoagulation <Timi Walker - Last Filed: 04/16/16 15:27> Problem List - Problems (1) Abscess Assessment/Plan: s/p I&D x2 with debridement, and wound vac placement. Dressing order changed to kerlix, wet to dry so that surgery may observe the wound and then decide when to replace the vac. Dressing changed ordered for q12 hours. Continue IV abx Code(s): L02.91 - CUTANEOUS ABSCESS, UNSPECIFIED (2) Acute on chronic renal failure Code(s): N17.9 - ACUTE KIDNEY FAILURE, UNSPECIFIED N18.9 - CHRONIC KIDNEY DISEASE, UNSPECIFIED <Ashleigh Bartholomew - Last Filed: 04/16/16 13:22>
--- NOTE | 2016-04-16 13:33 | PN ---
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, Physician History of Present Illness: pulmonary alert,nad,-sob,-cough. - Current Medication List Current Medications: Active Medications Acetaminophen (Tylenol -) 650 mg PO Q6H PRN PRN Reason: FEVER OR PAIN Last Admin: 04/15/16 16:10 Dose: 650 mg Albuterol/Ipratropium (Duoneb -) 1 amp NEB Q6H PRN PRN Reason: SHORTNESS OF BREATH Amino Acids (Prostat Sugar-Free Packet -) 30 ml PO BID@0800,1730 [facility] Amiodarone HCl (Cordarone -) 100 mg PO DAILY [facility] Last Admin: 04/16/16 10:18 Dose: 100 mg Apixaban (Eliquis -) 5 mg PO BID [facility] Last Admin: 04/16/16 12:34 Dose: 5 mg Ascorbic Acid (Vitamin C -) 500 mg PO DAILY [facility] Last Admin: 04/16/16 10:18 Dose: 500 mg Brimonidine Tartrate (Alphagan 0.2% -) 1 drop OU BID [facility] Last Admin: 04/16/16 10:28 Dose: 1 drop Folic Acid (Folic Acid -) 1 mg PO DAILY [facility] Last Admin: 04/16/16 10:18 Dose: 1 mg Hydralazine HCl (Apresoline -) 10 mg PO BID [facility] Last Admin: 04/16/16 10:31 Dose: 10 mg Metronidazole (Flagyl 500mg Premixed Ivpb -) 100 mls @ 100 mls/hr IVPB Q8H-IV [facility] Last Admin: 04/16/16 10:29 Dose: 100 mls/hr Piperacillin Sod/Tazobactam Sod (Zosyn 2.25gm Ivpb (Pre-Docked)) 50 mls @ 100 mls/hr IVPB Q8H-IV [facility] Last Admin: 04/16/16 10:20 Dose: 100 mls/hr Insulin Aspart (Novolog Vial Sliding Scale -) 1 vial SQ ACHS [facility] PRN Reason: Protocol Last Admin: 04/16/16 12:34 Dose: 2 units Isosorbide Dinitrate (Isordil -) 20 mg PO BIDISORDIL [facility] Last Admin: 04/16/16 10:31 Dose: 20 mg Levothyroxine Sodium (Synthroid -) 50 mcg PO DAILY@0700 [facility] Last Admin: 04/16/16 06:32 Dose: 50 mcg Metoprolol Succinate (Toprol Xl -) 25 mg PO BID [facility] Last Admin: 04/16/16 10:19 Dose: 25 mg Morphine Sulfate (Morphine Injection -) 2 mg IVPUSH Q4H PRN PRN Reason: PAIN Last Admin: 04/16/16 12:47 Dose: 2 mg Multivitamins/Minerals/Vitamin C (Tab-A-Vit -) 1 tab PO DAILY [facility] Last Admin: 04/16/16 10:18 Dose: 1 tab Ranitidine HCl (Zantac -) 150 mg PO BID [facility] Last Admin: 04/16/16 10:19 Dose: 150 mg Zinc Sulfate (Orazinc -) 220 mg PO DAILY [facility] Last Admin: 04/16/16 10:18 Dose: 220 mg - Objective Vital Signs: Vital Signs Temperature 98.0 F 04/16/16 08:22 Pulse Rate 79 04/16/16 08:22 Respiratory Rate 20 04/16/16 08:22 Blood Pressure 134/77 04/16/16 08:22 O2 Sat by Pulse Oximetry (%) 100 04/16/16 09:00 Constitutional: Yes: Well Nourished, Calm Eyes: Yes: WNL HENT: Yes: WNL Neck: Yes: WNL Cardiovascular: Yes: Regular Rate and Rhythm, S1, S2 Respiratory: Yes: Diminished Gastrointestinal: Yes: WNL Extremities: Yes: WNL Edema: No Labs: CBC, BMP 04/15/16 06:15 04/16/16 07:15 INR, PTT INR 1.30 (0.82-1.09) H D 04/13/16 05:20 Problem List - Problems (1) Acute on chronic renal failure Code(s): N17.9 - ACUTE KIDNEY FAILURE, UNSPECIFIED N18.9 - CHRONIC KIDNEY DISEASE, UNSPECIFIED (2) Anemia Code(s): D64.9 - ANEMIA, UNSPECIFIED Qualifiers: Other causes of anemia: chronic disease, kidney (3) Atrial flutter Code(s): I48.92 - UNSPECIFIED ATRIAL FLUTTER (4) Congestive heart failure (CHF) Code(s): I50.9 - HEART FAILURE, UNSPECIFIED Qualifiers: Congestive heart failure type: systolic Congestive heart failure chronicity: chronic Qualified Code(s): I50.22 - Chronic systolic (congestive ) heart failure (5) DMII (diabetes mellitus, type 2) Code(s): E11.9 - TYPE 2 DIABETES MELLITUS WITHOUT COMPLICATIONS Qualifiers: Diabetes mellitus complication detail: with other kidney complication (6) HTN (hypertension) Code(s): I10 - ESSENTIAL (PRIMARY) HYPERTENSION Qualifiers: Hypertension type: essential hypertension Qualified Code(s): I10 - Essential (primary) hypertension (7) Paroxysmal atrial flutter Code(s): I48.92 - UNSPECIFIED ATRIAL FLUTTER (8) COPD (chronic obstructive pulmonary disease) Code(s): J44.9 - CHRONIC OBSTRUCTIVE PULMONARY DISEASE, UNSPECIFIED Assessment/Plan ASSESSMENT AND PLAN: Necrotic Shoulder Cutaneuous Abscess s/p debridement Sepsis improving Acute on Chronic Renal Failure Paroxysmal Atrial Flutter now in sinus LV Systolic Dysfunction CAD COPD HTN DM - VAC care per surgery - ABX - PO as tolerated - rate/rhythm controlled on metoprolol and amiodarone - DR GRACE
--- NOTE | 2016-04-16 13:33 | PN ---
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, Physician History of Present Illness: Pt seen and examined at bedside. He denies fevers or chills. He has a woundvac attached to the back wound. He denies shortness of breath. - Current Medication List Current Medications: Active Medications Acetaminophen (Tylenol -) 650 mg PO Q6H PRN PRN Reason: FEVER OR PAIN Last Admin: 04/15/16 16:10 Dose: 650 mg Albuterol/Ipratropium (Duoneb -) 1 amp NEB Q6H PRN PRN Reason: SHORTNESS OF BREATH Amino Acids (Prostat Sugar-Free Packet -) 30 ml PO BID@0800,1730 [facility] Amiodarone HCl (Cordarone -) 100 mg PO DAILY [facility] Last Admin: 04/16/16 10:18 Dose: 100 mg Apixaban (Eliquis -) 5 mg PO BID [facility] Last Admin: 04/16/16 12:34 Dose: 5 mg Ascorbic Acid (Vitamin C -) 500 mg PO DAILY [facility] Last Admin: 04/16/16 10:18 Dose: 500 mg Brimonidine Tartrate (Alphagan 0.2% -) 1 drop OU BID [facility] Last Admin: 04/16/16 10:28 Dose: 1 drop Folic Acid (Folic Acid -) 1 mg PO DAILY [facility] Last Admin: 04/16/16 10:18 Dose: 1 mg Hydralazine HCl (Apresoline -) 10 mg PO BID [facility] Last Admin: 04/16/16 10:31 Dose: 10 mg Metronidazole (Flagyl 500mg Premixed Ivpb -) 100 mls @ 100 mls/hr IVPB Q8H-IV [facility] Last Admin: 04/16/16 10:29 Dose: 100 mls/hr Piperacillin Sod/Tazobactam Sod (Zosyn 2.25gm Ivpb (Pre-Docked)) 50 mls @ 100 mls/hr IVPB Q8H-IV [facility] Last Admin: 04/16/16 10:20 Dose: 100 mls/hr Insulin Aspart (Novolog Vial Sliding Scale -) 1 vial SQ ACHS [facility] PRN Reason: Protocol Last Admin: 04/16/16 12:34 Dose: 2 units Isosorbide Dinitrate (Isordil -) 20 mg PO BIDISORDIL [facility] Last Admin: 04/16/16 10:31 Dose: 20 mg Levothyroxine Sodium (Synthroid -) 50 mcg PO DAILY@0700 [facility] Last Admin: 04/16/16 06:32 Dose: 50 mcg Metoprolol Succinate (Toprol Xl -) 25 mg PO BID [facility] Last Admin: 04/16/16 10:19 Dose: 25 mg Morphine Sulfate (Morphine Injection -) 2 mg IVPUSH Q4H PRN PRN Reason: PAIN Last Admin: 04/16/16 12:47 Dose: 2 mg Multivitamins/Minerals/Vitamin C (Tab-A-Vit -) 1 tab PO DAILY [facility] Last Admin: 04/16/16 10:18 Dose: 1 tab Ranitidine HCl (Zantac -) 150 mg PO BID [facility] Last Admin: 04/16/16 10:19 Dose: 150 mg Zinc Sulfate (Orazinc -) 220 mg PO DAILY [facility] Last Admin: 04/16/16 10:18 Dose: 220 mg - Objective Vital Signs: Vital Signs Temperature 98.0 F 04/16/16 08:22 Pulse Rate 79 04/16/16 08:22 Respiratory Rate 20 04/16/16 08:22 Blood Pressure 134/77 04/16/16 08:22 O2 Sat by Pulse Oximetry (%) 100 04/16/16 09:00 Constitutional: Yes: Calm Eyes: Yes: Conjunctiva Clear HENT: Yes: Atraumatic Neck: Yes: Supple Cardiovascular: Yes: S1, S2 Respiratory: Yes: CTA Bilaterally Gastrointestinal: Yes: Soft Genitourinary: Yes: WNL Musculoskeletal: Yes: Muscle Weakness Edema: Yes Edema: LLE: Trace, RLE: Trace Neurological: Yes: Oriented Psychiatric: Yes: Oriented Labs: CBC, BMP 04/15/16 06:15 04/16/16 07:15 INR, PTT INR 1.30 (0.82-1.09) H D 04/13/16 05:20 Problem List - Problems (1) Abscess Code(s): L02.91 - CUTANEOUS ABSCESS, UNSPECIFIED (2) Acute on chronic renal failure Code(s): N17.9 - ACUTE KIDNEY FAILURE, UNSPECIFIED N18.9 - CHRONIC KIDNEY DISEASE, UNSPECIFIED (3) Leukocytosis Code(s): D72.829 - ELEVATED WHITE BLOOD CELL COUNT, UNSPECIFIED Qualifiers: Qualified Code(s): D72.829 - Elevated white blood cell count, unspecified (4) Anemia Code(s): D64.9 - ANEMIA, UNSPECIFIED Qualifiers: Qualified Code(s): N18.9 - Chronic kidney disease, unspecified; D63.1 - Anemia in chronic kidney disease (5) Congestive heart failure (CHF) Code(s): I50.9 - HEART FAILURE, UNSPECIFIED Qualifiers: Qualified Code(s): I50.22 - Chronic systolic (congestive) heart failure (6) DMII (diabetes mellitus, type 2) Code(s): E11.9 - TYPE 2 DIABETES MELLITUS WITHOUT COMPLICATIONS (7) HTN (hypertension) Code(s): I10 - ESSENTIAL (PRIMARY) HYPERTENSION Qualifiers: Qualified Code(s): I10 - Essential (primary) hypertension (8) Hyperkalemia Code(s): E87.5 - HYPERKALEMIA Assessment/Plan Current Medications Generic Name Dose Route Start Last Admin Trade Name Freq PRN Reason Stop Dose Admin Acetaminophen 650 mg 04/14/16 11:44 04/15/16 16:10 Tylenol - PO 650 mg Q6H PRN Administration FEVER OR PAIN Albuterol/Ipratropium 1 amp 04/14/16 11:44 Duoneb - NEB Q6H PRN SHORTNESS OF BREATH Amino Acids 30 ml 04/16/16 17:30 Prostat Sugar-Free Packet - PO BID@0800,1730 [facility] Amiodarone HCl 100 mg 04/15/16 10:00 04/16/16 10:18 Cordarone - PO 100 mg DAILY [facility] Administration Apixaban 5 mg 04/16/16 11:30 04/16/16 12:34 Eliquis - PO 5 mg BID [facility] Administration Ascorbic Acid 500 mg 04/16/16 10:00 04/16/16 10:18 Vitamin C - PO 500 mg DAILY [facility] Administration Brimonidine Tartrate 1 drop 04/14/16 22:00 04/16/16 10:28 Alphagan 0.2% - OU 1 drop BID [facility] Administration Folic Acid 1 mg 04/15/16 10:00 04/16/16 10:18 Folic Acid - PO 1 mg DAILY [facility] Administration Hydralazine HCl 10 mg 04/15/16 22:00 04/16/16 10:31 Apresoline - PO 10 mg BID [facility] Administration Metronidazole 100 mls @ 100 mls/hr 04/14/16 18:00 04/16/16 10:29 Flagyl 500mg Premixed Ivpb - IVPB 100 mls/hr Q8H-IV [facility] Administration Piperacillin Sod/Tazobactam Sod 50 mls @ 100 mls/hr 04/14/16 18:00 04/16/16 10: 20 Zosyn 2.25gm Ivpb (Pre-Docked) IVPB 100 mls/hr Q8H-IV [facility] Administration Insulin Aspart 1 vial 04/14/16 16:30 04/16/16 12:34 Novolog Vial Sliding Scale - SQ 2 units ACHS [facility] Administration Protocol Isosorbide Dinitrate 20 mg 04/14/16 18:00 04/16/16 10:31 Isordil - PO 20 mg BIDISORDIL [facility] Administration Levothyroxine Sodium 50 mcg 04/15/16 07:00 04/16/16 06:32 Synthroid - PO 50 mcg DAILY@0700 [facility] Administration Metoprolol Succinate 25 mg 04/14/16 22:00 04/16/16 10:19 Toprol Xl - PO 25 mg BID [facility] Administration Morphine Sulfate 2 mg 04/14/16 11:44 04/16/16 12:47 Morphine Injection - IVPUSH 2 mg Q4H PRN Administration PAIN Multivitamins/Minerals/Vitamin C 1 tab 04/16/16 10:00 04/16/16 10:18 Tab-A-Vit - PO 1 tab DAILY [facility] Administration Ranitidine HCl 150 mg 04/14/16 22:00 04/16/16 10:19 Zantac - PO 150 mg BID [facility] Administration Zinc Sulfate 220 mg 04/16/16 10:00 04/16/16 10:18 Orazinc - PO 220 mg DAILY [facility] Administration Impression 1. CASE 2. hyperkalemia 3. cellulitis/abscess of back 4. CHF 5. hypothyroidism 6. hyperlipidemia 7. COPD 8. htn 9. sepsis Plan - renal function is stabilizing - will order am cxr - repeat labs in am - hold lasix for now - cont with abx - cont with wound care Dr Martinez
[2016-04-16] MEDS: AMINO ACIDS/PROTEIN HYDROLYS SUGAR-FREE 30 ML PACKET PO SCH ×2 (17:36→17:53)
--- NOTE | 2016-04-16 18:53 | PN ---
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 (short form) - Note 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: Patient seen and examined Denies any complaints Current Medications Acetaminophen (Tylenol -) 650 mg PO Q6H PRN PRN Reason: FEVER OR PAIN Last Admin: 04/15/16 16:10 Dose: 650 mg Albuterol/Ipratropium (Duoneb -) 1 amp NEB Q6H PRN PRN Reason: SHORTNESS OF BREATH Amino Acids (Prostat Sugar-Free Packet -) 30 ml PO BID@0800,1730 [facility] Last Admin: 04/16/16 17:53 Dose: 30 ml Amiodarone HCl (Cordarone -) 100 mg PO DAILY [facility] Last Admin: 04/16/16 10:18 Dose: 100 mg Apixaban (Eliquis -) 5 mg PO BID [facility] Last Admin: 04/16/16 12:34 Dose: 5 mg Ascorbic Acid (Vitamin C -) 500 mg PO DAILY [facility] Last Admin: 04/16/16 10:18 Dose: 500 mg Brimonidine Tartrate (Alphagan 0.2% -) 1 drop OU BID [facility] Last Admin: 04/16/16 10:28 Dose: 1 drop Folic Acid (Folic Acid -) 1 mg PO DAILY [facility] Last Admin: 04/16/16 10:18 Dose: 1 mg Hydralazine HCl (Apresoline -) 10 mg PO BID [facility] Last Admin: 04/16/16 10:31 Dose: 10 mg Metronidazole (Flagyl 500mg Premixed Ivpb -) 100 mls @ 100 mls/hr IVPB Q8H-IV [facility] Last Admin: 04/16/16 17:38 Dose: 100 mls/hr Piperacillin Sod/Tazobactam Sod (Zosyn 2.25gm Ivpb (Pre-Docked)) 50 mls @ 100 mls/hr IVPB Q8H-IV [facility] Last Admin: 04/16/16 17:38 Dose: 100 mls/hr Insulin Aspart (Novolog Vial Sliding Scale -) 1 vial SQ ACHS [facility] PRN Reason: Protocol Last Admin: 04/16/16 17:25 Dose: Not Given Isosorbide Dinitrate (Isordil -) 20 mg PO BIDISORDIL [facility] Last Admin: 04/16/16 17:38 Dose: 20 mg Levothyroxine Sodium (Synthroid -) 50 mcg PO DAILY@0700 [facility] Last Admin: 04/16/16 06:32 Dose: 50 mcg Metoprolol Succinate (Toprol Xl -) 25 mg PO BID [facility] Last Admin: 04/16/16 10:19 Dose: 25 mg Morphine Sulfate (Morphine Injection -) 2 mg IVPUSH Q4H PRN PRN Reason: PAIN Last Admin: 04/16/16 12:47 Dose: 2 mg Multivitamins/Minerals/Vitamin C (Tab-A-Vit -) 1 tab PO DAILY [facility] Last Admin: 04/16/16 10:18 Dose: 1 tab Ranitidine HCl (Zantac -) 150 mg PO BID [facility] Last Admin: 04/16/16 10:19 Dose: 150 mg Zinc Sulfate (Orazinc -) 220 mg PO DAILY [facility] Last Admin: 04/16/16 10:18 Dose: 220 mg - Objective Vital Signs: Last Vital Signs Temp Pulse Resp BP Pulse Ox 97.9 F 65 17 134/77 100 04/16/16 13:48 04/16/16 13:48 04/16/16 13:48 04/16/16 08:22 04/16/16 09:00 Cardiovascular: Yes: S1, S2 Respiratory: Yes: CTA Bilaterally Gastrointestinal: Yes: Normal Bowel Sounds, Soft Edema: Yes Problem List - Problems (1) Abscess Code(s): L02.91 - CUTANEOUS ABSCESS, UNSPECIFIED (2) Acute on chronic renal failure Code(s): N17.9 - ACUTE KIDNEY FAILURE, UNSPECIFIED N18.9 - CHRONIC KIDNEY DISEASE, UNSPECIFIED (3) Anemia Code(s): D64.9 - ANEMIA, UNSPECIFIED Qualifiers: Other causes of anemia: chronic disease, kidney (4) DMII (diabetes mellitus, type 2) Code(s): E11.9 - TYPE 2 DIABETES MELLITUS WITHOUT COMPLICATIONS Qualifiers: Diabetes mellitus complication detail: with other kidney complication A/P Anemia- Normocytic normochromic with a high RDW Suspect this to be a contribution of anemia of kidney disease, acute illness - iron studies, ferritin, c/w anemia of chronic disease, LDH (normal), B12 and folate normal, stool occult- negative heparin resumed multiple nevi --patient refusing dermatology f/u outpatient
[2016-04-17] MEDS: PIPERACILLIN/TAZOB 2.25 GM 50 ML IVPB SCH ×3 (01:45→17:20)
[2016-04-17] MEDS: METRONIDAZOLE 500 MG PREMIXED 100 ML IVPB SCH ×3 (02:45→17:20)
[2016-04-17] MEDS: INSULIN SLIDING SCALE (NOVOLOG) 1 VIAL SQ SCH ×4 (06:40→21:54)
[2016-04-17] MEDS: LEVOTHYROXINE NA 50 MCG TABLET (FP) PO SCH (06:40)
[2016-04-17 07:33] LABS: MCH 28.9 pg (25.7-33.7); MEAN CELL VOLUME 87.5 fl (80-96); MEAN PLT VOLUME 8.8 fl (7.5-11.1); PLATELET COUNT 247 K/MM3 (134-434); WHITE BLOOD COUNT 9.6 K/mm3 (4.0-10.0)
--- NOTE | 2016-04-17 08:09 | PN ---
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, Physician Chief Complaint: CALM NO DISTRESS - Current Medication List Current Medications: Active Medications Acetaminophen (Tylenol -) 650 mg PO Q6H PRN PRN Reason: FEVER OR PAIN Last Admin: 04/15/16 16:10 Dose: 650 mg Albuterol/Ipratropium (Duoneb -) 1 amp NEB Q6H PRN PRN Reason: SHORTNESS OF BREATH Amino Acids (Prostat Sugar-Free Packet -) 30 ml PO BID@0800,1730 [facility] Last Admin: 04/16/16 17:53 Dose: 30 ml Amiodarone HCl (Cordarone -) 100 mg PO DAILY [facility] Last Admin: 04/16/16 10:18 Dose: 100 mg Apixaban (Eliquis -) 5 mg PO BID [facility] Last Admin: 04/16/16 21:46 Dose: 5 mg Ascorbic Acid (Vitamin C -) 500 mg PO DAILY [facility] Last Admin: 04/16/16 10:18 Dose: 500 mg Brimonidine Tartrate (Alphagan 0.2% -) 1 drop OU BID [facility] Last Admin: 04/16/16 21:42 Dose: 1 drop Folic Acid (Folic Acid -) 1 mg PO DAILY [facility] Last Admin: 04/16/16 10:18 Dose: 1 mg Hydralazine HCl (Apresoline -) 10 mg PO BID [facility] Last Admin: 04/16/16 21:58 Dose: Not Given Metronidazole (Flagyl 500mg Premixed Ivpb -) 100 mls @ 100 mls/hr IVPB Q8H-IV [facility] Last Admin: 04/17/16 02:45 Dose: 100 mls/hr Piperacillin Sod/Tazobactam Sod (Zosyn 2.25gm Ivpb (Pre-Docked)) 50 mls @ 100 mls/hr IVPB Q8H-IV [facility] Last Admin: 04/17/16 01:45 Dose: 100 mls/hr Insulin Aspart (Novolog Vial Sliding Scale -) 1 vial SQ ACHS [facility] PRN Reason: Protocol Last Admin: 04/17/16 06:40 Dose: Not Given Isosorbide Dinitrate (Isordil -) 20 mg PO BIDISORDIL [facility] Last Admin: 04/16/16 17:38 Dose: 20 mg Levothyroxine Sodium (Synthroid -) 50 mcg PO DAILY@0700 [facility] Last Admin: 04/17/16 06:40 Dose: 50 mcg Metoprolol Succinate (Toprol Xl -) 25 mg PO BID [facility] Last Admin: 04/16/16 21:58 Dose: Not Given Morphine Sulfate (Morphine Injection -) 2 mg IVPUSH Q4H PRN PRN Reason: PAIN Last Admin: 04/16/16 12:47 Dose: 2 mg Multivitamins/Minerals/Vitamin C (Tab-A-Vit -) 1 tab PO DAILY [facility] Last Admin: 04/16/16 10:18 Dose: 1 tab Ranitidine HCl (Zantac -) 150 mg PO BID [facility] Last Admin: 04/16/16 21:59 Dose: 150 mg Zinc Sulfate (Orazinc -) 220 mg PO DAILY [facility] Last Admin: 04/16/16 10:18 Dose: 220 mg - Objective Vital Signs: Vital Signs Temperature 98.1 F 04/17/16 06:00 Pulse Rate 67 04/17/16 06:00 Respiratory Rate 18 04/17/16 06:00 Blood Pressure 114/66 04/17/16 06:00 O2 Sat by Pulse Oximetry (%) 100 04/16/16 21:00 Cardiovascular: Yes: S1, S2 Respiratory: Yes: CTA Bilaterally Gastrointestinal: Yes: Normal Bowel Sounds, Soft Edema: LLE: Trace, RLE: Trace Labs: CBC, BMP 04/17/16 05:35 INR, PTT INR 1.30 (0.82-1.09) H D 04/13/16 05:20 Problem List - Problems (1) Abscess Code(s): L02.91 - CUTANEOUS ABSCESS, UNSPECIFIED (2) Acute on chronic renal failure Code(s): N17.9 - ACUTE KIDNEY FAILURE, UNSPECIFIED N18.9 - CHRONIC KIDNEY DISEASE, UNSPECIFIED (3) Anemia Code(s): D64.9 - ANEMIA, UNSPECIFIED Qualifiers: Other causes of anemia: chronic disease, kidney (4) Atrial flutter Code(s): I48.92 - UNSPECIFIED ATRIAL FLUTTER (5) CKD (chronic kidney disease), stage II Code(s): N18.2 - CHRONIC KIDNEY DISEASE, STAGE 2 (MILD) (6) Congestive heart failure (CHF) Code(s): I50.9 - HEART FAILURE, UNSPECIFIED Qualifiers: Congestive heart failure type: systolic Congestive heart failure chronicity: chronic Qualified Code(s): I50.22 - Chronic systolic (congestive ) heart failure (7) DMII (diabetes mellitus, type 2) Code(s): E11.9 - TYPE 2 DIABETES MELLITUS WITHOUT COMPLICATIONS Qualifiers: Diabetes mellitus complication detail: with other kidney complication Assessment/Plan (1) Abscess Code(s): L02.91 - CUTANEOUS ABSCESS, UNSPECIFIED (2) Acute on chronic renal failure Code(s): N17.9 - ACUTE KIDNEY FAILURE, UNSPECIFIED N18.9 - CHRONIC KIDNEY DISEASE, UNSPECIFIED (3) Leukocytosis Code(s): D72.829 - ELEVATED WHITE BLOOD CELL COUNT, UNSPECIFIED Qualifiers: Leukocytosis type: unspecified Qualified Code(s): D72.829 - Elevated white blood cell count, unspecified (4) Anemia Code(s): D64.9 - ANEMIA, UNSPECIFIED Qualifiers: Other causes of anemia: chronic disease, kidney (5) Anticoagulated by anticoagulation treatment Code(s): Z79.01 - CORRECTION (CURRENT) USE OF ANTICOAGULANTS (6) Atrial flutter Code(s): I48.92 - UNSPECIFIED ATRIAL FLUTTER (7) CKD (chronic kidney disease), stage II Code(s): N18.2 - CHRONIC KIDNEY DISEASE, STAGE 2 (MILD) (8) Congestive heart failure (CHF) Code(s): I50.9 - HEART FAILURE, UNSPECIFIED Qualifiers: Congestive heart failure type: systolic Congestive heart failure chronicity: chronic Qualified Code(s): I50.22 - Chronic systolic (congestive ) heart failure (9) HTN (hypertension) Code(s): I10 - ESSENTIAL (PRIMARY) HYPERTENSION Qualifiers: Hypertension type: essential hypertension Qualified Code(s): I10 - Essential (primary) hypertension (10) Hyperkalemia Code(s): E87.5 - HYPERKALEMIA (11) Paroxysmal atrial flutter Code(s): I48.92 - UNSPECIFIED ATRIAL FLUTTER (12) Unsteady gait Code(s): R26.81 - UNSTEADINESS ON FEET Assessment/Plan IV ABX PER ID CULTURES +Kenyatta WILL NEED IV ABX AT [facility], I WILL DISCUSS WITH ID IF PICC LINE IS NEEDED. SW & PT ON CASE FOR SNF SANS SOUCI CARDIO ON CASE ONLY ON NOAC RATE CONTROL AFIB/FLUTTER +BM, +APPETITE WOUND VAC CONTINUED DISCHARGE PLANNING TO SNF [facility]
[2016-04-17 08:22] LABS: ALBUMIN 2.1 g/dl (3.4-5.0); CALCIUM 7.9 mg/dL (8.5-10.1)
[2016-04-17 08:26] LABS: BILIRUBIN,TOTAL 0.5 mg/dL (0.2-1.0); CREATININE 2.9 mg/dL (0.7-1.3); TOT PROT 6.2 g/dl (6.4-8.2)
[2016-04-17] MEDS: AMINO ACIDS/PROTEIN HYDROLYS SUGAR-FREE 30 ML PACKET PO SCH ×2 (08:29→17:18)
[2016-04-17] MEDS ORDERED: PT OWN MED DRAWER 7, Y5N ONE ×3 (09:23→21:53)
[2016-04-17] MEDS: MULTIVITAMINS (DAILY MVI) TABLET (FP) PO SCH (09:26)
[2016-04-17] MEDS: AMIODARONE HCL 200 MG TABLET (FP) PO SCH (09:26)
[2016-04-17] MEDS: hydrALAZINE HCL 10 MG TABLET PO SCH ×2 (09:27→21:54)
[2016-04-17] MEDS: FOLIC ACID 1 MG TABLET (FP) PO SCH (09:27)
[2016-04-17] MEDS: ASCORBIC ACID 500 MG TABLET (FP) PO SCH (09:27)
[2016-04-17] MEDS: RANITIDINE HCL 150 MG TABLET (FP) PO SCH ×2 (09:27→21:53)
[2016-04-17] MEDS: ZINC SULFATE 220 MG CAPSULE (FP) PO SCH (09:27)
[2016-04-17] MEDS: APIXABAN 5 MG TABLET PO SCH ×2 (09:28→21:54)
[2016-04-17] MEDS: ISOSORBIDE DINITRATE 20 MG TABLET (FP) PO SCH ×2 (09:28→17:18)
[2016-04-17] MEDS: METOPROLOL SUCCINATE 25 MG TAB.SR.24H (FP) PO SCH ×2 (09:28→21:54)
[2016-04-17] MEDS: BRIMONIDINE TARTRATE 0.2% OPHTHALMIC 5 ML BOTTLE OU SCH ×2 (09:28→21:55)
--- NOTE | 2016-04-17 10:56 | PN ---
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 (short form) - Note 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: Resting in NAD. No acute events overnight. Denies shortness of breath or chest pain. No fevers or chills. Wound vac in place. CXR: No acute pathology Intake & Output 04/14/16 04/15/16 04/16/16 04/17/16 23:59 23:59 23:59 23:59 Intake Total 1581 1770 1269 150 Output Total 1700 1550 900 450 Balance -119 220 369 -300 Weight 222 lb 14.4 oz 221 lb 6 oz 225 lb 5 oz 228 lb 8 oz Last Vital Signs Temp Pulse Resp BP Pulse Ox 99.1 F 77 16 122/79 100 04/17/16 10:00 04/17/16 10:00 04/17/16 10:00 04/17/16 10:00 04/16/16 21:00 Active Medications Acetaminophen (Tylenol -) 650 mg PO Q6H PRN PRN Reason: FEVER OR PAIN Last Admin: 04/15/16 16:10 Dose: 650 mg Albuterol/Ipratropium (Duoneb -) 1 amp NEB Q6H PRN PRN Reason: SHORTNESS OF BREATH Amino Acids (Prostat Sugar-Free Packet -) 30 ml PO BID@0800,1730 [facility] Last Admin: 04/17/16 08:29 Dose: 30 ml Amiodarone HCl (Cordarone -) 100 mg PO DAILY [facility] Last Admin: 04/17/16 09:26 Dose: 100 mg Apixaban (Eliquis -) 5 mg PO BID [facility] Last Admin: 04/17/16 09:28 Dose: 5 mg Ascorbic Acid (Vitamin C -) 500 mg PO DAILY [facility] Last Admin: 04/17/16 09:27 Dose: 500 mg Brimonidine Tartrate (Alphagan 0.2% -) 1 drop OU BID [facility] Last Admin: 04/17/16 09:28 Dose: 1 drop Folic Acid (Folic Acid -) 1 mg PO DAILY [facility] Last Admin: 04/17/16 09:27 Dose: 1 mg Hydralazine HCl (Apresoline -) 10 mg PO BID [facility] Last Admin: 04/17/16 09:27 Dose: 10 mg Metronidazole (Flagyl 500mg Premixed Ivpb -) 100 mls @ 100 mls/hr IVPB Q8H-IV [facility] Last Admin: 04/17/16 09:26 Dose: 100 mls/hr Piperacillin Sod/Tazobactam Sod (Zosyn 2.25gm Ivpb (Pre-Docked)) 50 mls @ 100 mls/hr IVPB Q8H-IV [facility] Last Admin: 04/17/16 09:29 Dose: 100 mls/hr Insulin Aspart (Novolog Vial Sliding Scale -) 1 vial SQ ACHS [facility] PRN Reason: Protocol Last Admin: 04/17/16 06:40 Dose: Not Given Isosorbide Dinitrate (Isordil -) 20 mg PO BIDISORDIL [facility] Last Admin: 04/17/16 09:28 Dose: 20 mg Levothyroxine Sodium (Synthroid -) 50 mcg PO DAILY@0700 [facility] Last Admin: 04/17/16 06:40 Dose: 50 mcg Metoprolol Succinate (Toprol Xl -) 25 mg PO BID [facility] Last Admin: 04/17/16 09:28 Dose: 25 mg Morphine Sulfate (Morphine Injection -) 2 mg IVPUSH Q4H PRN PRN Reason: PAIN Last Admin: 04/16/16 12:47 Dose: 2 mg Multivitamins/Minerals/Vitamin C (Tab-A-Vit -) 1 tab PO DAILY [facility] Last Admin: 04/17/16 09:26 Dose: 1 tab Ranitidine HCl (Zantac -) 150 mg PO BID [facility] Last Admin: 04/17/16 09:27 Dose: 150 mg Zinc Sulfate (Orazinc -) 220 mg PO DAILY [facility] Last Admin: 04/17/16 09:27 Dose: 220 mg Gen: NAD at rest, (+) VAC Heart: RRR Lung: scattered basilar rhonchi Abd: soft, nontender Ext: no edema Laboratory Results - last 24 hr 04/10/16 04/16/16 04/16/16 11:50 11:52 17:24 WBC RBC Hgb Hct MCV MCHC RDW Plt Count MPV PTT (Actin FS) Sodium Potassium Chloride Carbon Dioxide Anion Gap BUN Creatinine Creat Clearance w eGFR POC Glucometer 215 103 Random Glucose Calcium Total Bilirubin AST ALT Alkaline Phosphatase Total Protein Albumin Blood Type A POSITIVE Antibody Screen Negative Crossmatch See Detail 04/16/16 04/17/16 04/17/16 21:28 05:35 05:35 WBC 9.6 RBC 2.77 L Hgb 8.0 L Hct 24.3 L MCV 87.5 MCHC 33.0 RDW 17.0 H Plt Count 247 MPV 8.8 PTT (Actin FS) 32.0 D Sodium Potassium Chloride Carbon Dioxide Anion Gap BUN Creatinine Creat Clearance w eGFR POC Glucometer 130 Random Glucose Calcium Total Bilirubin AST ALT Alkaline Phosphatase Total Protein Albumin Blood Type Antibody Screen Crossmatch 04/17/16 04/17/16 05:35 06:39 WBC RBC Hgb Hct MCV MCHC RDW Plt Count MPV PTT (Actin FS) Sodium 137 Potassium 4.3 Chloride 106 Carbon Dioxide 20 L Anion Gap 11 BUN 55 H Creatinine 2.9 H Creat Clearance w eGFR 21.26 POC Glucometer 109 Random Glucose 88 D Calcium 7.9 L Total Bilirubin 0.5 D AST 12 L ALT 10 L Alkaline Phosphatase 62 Total Protein 6.2 L Albumin 2.1 L Blood Type Antibody Screen Crossmatch ASSESSMENT AND PLAN: Necrotic Shoulder Cutaneuous Abscess s/p debridement Sepsis improving Acute on Chronic Renal Failure Paroxysmal Atrial Flutter now in sinus LV Systolic Dysfunction CAD COPD HTN DM - VAC care per surgery - ABX - PO as tolerated - D/C planning to SNF Dr Farrell
--- NOTE | 2016-04-17 11:06 | PN ---
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 (short form) - Note 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: s:denies sob or orthopnea; no cp, palpit, dizzy Current Medications Generic Name Dose Route Start Last Admin Trade Name Freq PRN Reason Stop Dose Admin Acetaminophen 650 mg 04/14/16 11:44 04/15/16 16:10 Tylenol - PO 650 mg Q6H PRN Administration FEVER OR PAIN Albuterol/Ipratropium 1 amp 04/14/16 11:44 Duoneb - NEB Q6H PRN SHORTNESS OF BREATH Amino Acids 30 ml 04/16/16 17:30 04/17/16 08:29 Prostat Sugar-Free Packet - PO 30 ml BID@0800,1730 [facility] Administration Amiodarone HCl 100 mg 04/15/16 10:00 04/17/16 09:26 Cordarone - PO 100 mg DAILY [facility] Administration Apixaban 5 mg 04/16/16 11:30 04/17/16 09:28 Eliquis - PO 5 mg BID [facility] Administration Ascorbic Acid 500 mg 04/16/16 10:00 04/17/16 09:27 Vitamin C - PO 500 mg DAILY [facility] Administration Brimonidine Tartrate 1 drop 04/14/16 22:00 04/17/16 09:28 Alphagan 0.2% - OU 1 drop BID [facility] Administration Folic Acid 1 mg 04/15/16 10:00 04/17/16 09:27 Folic Acid - PO 1 mg DAILY [facility] Administration Hydralazine HCl 10 mg 04/15/16 22:00 04/17/16 09:27 Apresoline - PO 10 mg BID [facility] Administration Metronidazole 100 mls @ 100 mls/hr 04/14/16 18:00 04/17/16 09:26 Flagyl 500mg Premixed Ivpb - IVPB 100 mls/hr Q8H-IV [facility] Administration Piperacillin Sod/Tazobactam Sod 50 mls @ 100 mls/hr 04/14/16 18:00 04/17/16 09: 29 Zosyn 2.25gm Ivpb (Pre-Docked) IVPB 100 mls/hr Q8H-IV [facility] Administration Insulin Aspart 1 vial 04/14/16 16:30 04/17/16 06:40 Novolog Vial Sliding Scale - SQ Not Given ACHS [facility] Protocol Isosorbide Dinitrate 20 mg 04/14/16 18:00 04/17/16 09:28 Isordil - PO 20 mg BIDISORDIL [facility] Administration Levothyroxine Sodium 50 mcg 04/15/16 07:00 04/17/16 06:40 Synthroid - PO 50 mcg DAILY@0700 [facility] Administration Metoprolol Succinate 25 mg 04/14/16 22:00 04/17/16 09:28 Toprol Xl - PO 25 mg BID [facility] Administration Morphine Sulfate 2 mg 04/14/16 11:44 04/16/16 12:47 Morphine Injection - IVPUSH 2 mg Q4H PRN Administration PAIN Multivitamins/Minerals/Vitamin C 1 tab 04/16/16 10:00 04/17/16 09:26 Tab-A-Vit - PO 1 tab DAILY [facility] Administration Ranitidine HCl 150 mg 04/14/16 22:00 04/17/16 09:27 Zantac - PO 150 mg BID [facility] Administration Torsemide 40 mg 04/18/16 10:00 Demadex - PO DAILY [facility] Zinc Sulfate 220 mg 04/16/16 10:00 04/17/16 09:27 Orazinc - PO 220 mg DAILY [facility] Administration Vital Signs Period Temp Pulse Resp BP Sys/Hubbard Pulse Ox Last 24 Hr 97.8 F-99.1 F 63-77 16-20 110-122/53-79 100 Constitutional: Yes: Well Nourished, No Distress, Calm Cardiovascular: Yes: Regular Rate and Rhythm, S1, S2. No: JVD, Gallop, Murmur Respiratory: Yes: Regular, CTA Bilaterally. No: Accessory Muscle Use, Rales, Wheezes Extremities: No: Cold Edema: No Neurological: Yes: Alert, Oriented Psychiatric: No: Agitated no jaundice diaphoresis CBC, BMP 04/17/16 05:35 04/17/16 05:35 echo 03/2016: severely decreased LV fn (global), nl rv. 1+ AR/MR. Mod MAC. 1+ TR. rvsp 30-40 mibi 10/2014: no ischemia, sev reduced lvef echo 10/2014 ([facility] [place]): definity used. mild lve, lvef 45%, nl rv, mild AR, sev lae , nl rvsp EKG: SR with pvc's. AV conduction delay, IVCD. lateral T wave flattening, similar to priors. tele: SR with pac's/pvc's. cannot rule out intermittent afib. a/p: 75 m hx non obs cad (cath 10/2014: only mild disease RCA), remote NM ( mentioned in prior charts, no further details, pt unclear of hx), syst chf (NICM , mild dec lvef), htn, copd, dm, ckd (cr 2's), aflutter on eliquis, here with subcutaneous abscess/sepsis/CASE. aflutter - remained in sinus here while on tele - cont amiodarone (tsh, lft's ok) and metoprolol - on eliquis NICM - rpt echo with worsened LV function - Currently does not appear volume overloaded. - Now off IVF. euvolemic - con't regimen of metoprolol, hydralazine, isordil - have been holding diuretics due to CASE. cr now improved. pt reports he was taking torsemide 70 mg daily at home and he had case when admitted so may need lower dose. will start back on torsemide 40 mg qd tomorrow. - not on NORMAN/ARB previously, presumably due to advanced CKD and/or labile creatinines VTach: - brief runs (3-4 beats) on tele - K/Mag good - last EF relatively preserved --> now severely depressed. - cont BB as doing, outpt cardiology f/u acute on chronic ckd -have been holding diuretics due to CASE. cr now improved. pt reports he was taking torsemide 70 mg daily at home and he had case when admitted so may need lower dose. will start back on torsemide 40 mg qd tomorrow. -renal following as well anemia: -hgb drifted down to <7 so received prbcs -seen by GI: has h/o gastric ulcers and diverticular bleeding in past, but no melena and guaiac neg here--i.e. no active GIB suspected -AC mgmt as above HTN -stable on current meds non-obstructive CAD - Not on statin, will defer to outpatient behavioral school counselors. 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
--- NOTE | 2016-04-17 12:11 | PN ---
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, Physician Chief Complaint: ID Day 6 since debridement initially. Zosyn and metronidazole continue - Current Medication List Current Medications: Active Medications Acetaminophen (Tylenol -) 650 mg PO Q6H PRN PRN Reason: FEVER OR PAIN Last Admin: 04/15/16 16:10 Dose: 650 mg Albuterol/Ipratropium (Duoneb -) 1 amp NEB Q6H PRN PRN Reason: SHORTNESS OF BREATH Amino Acids (Prostat Sugar-Free Packet -) 30 ml PO BID@0800,1730 [facility] Last Admin: 04/17/16 08:29 Dose: 30 ml Amiodarone HCl (Cordarone -) 100 mg PO DAILY [facility] Last Admin: 04/17/16 09:26 Dose: 100 mg Apixaban (Eliquis -) 5 mg PO BID [facility] Last Admin: 04/17/16 09:28 Dose: 5 mg Ascorbic Acid (Vitamin C -) 500 mg PO DAILY [facility] Last Admin: 04/17/16 09:27 Dose: 500 mg Brimonidine Tartrate (Alphagan 0.2% -) 1 drop OU BID [facility] Last Admin: 04/17/16 09:28 Dose: 1 drop Folic Acid (Folic Acid -) 1 mg PO DAILY [facility] Last Admin: 04/17/16 09:27 Dose: 1 mg Hydralazine HCl (Apresoline -) 10 mg PO BID [facility] Last Admin: 04/17/16 09:27 Dose: 10 mg Metronidazole (Flagyl 500mg Premixed Ivpb -) 100 mls @ 100 mls/hr IVPB Q8H-IV [facility] Last Admin: 04/17/16 09:26 Dose: 100 mls/hr Piperacillin Sod/Tazobactam Sod (Zosyn 2.25gm Ivpb (Pre-Docked)) 50 mls @ 100 mls/hr IVPB Q8H-IV [facility] Last Admin: 04/17/16 09:29 Dose: 100 mls/hr Insulin Aspart (Novolog Vial Sliding Scale -) 1 vial SQ ACHS [facility] PRN Reason: Protocol Last Admin: 04/17/16 11:08 Dose: Not Given Isosorbide Dinitrate (Isordil -) 20 mg PO BIDISORDIL [facility] Last Admin: 04/17/16 09:28 Dose: 20 mg Levothyroxine Sodium (Synthroid -) 50 mcg PO DAILY@0700 [facility] Last Admin: 04/17/16 06:40 Dose: 50 mcg Metoprolol Succinate (Toprol Xl -) 25 mg PO BID [facility] Last Admin: 04/17/16 09:28 Dose: 25 mg Multivitamins/Minerals/Vitamin C (Tab-A-Vit -) 1 tab PO DAILY [facility] Last Admin: 04/17/16 09:26 Dose: 1 tab Ranitidine HCl (Zantac -) 150 mg PO BID [facility] Last Admin: 04/17/16 09:27 Dose: 150 mg Torsemide (Demadex -) 40 mg PO DAILY [facility] Zinc Sulfate (Orazinc -) 220 mg PO DAILY [facility] Last Admin: 04/17/16 09:27 Dose: 220 mg - Objective Vital Signs: Vital Signs Temperature 99.1 F 04/17/16 10:00 Pulse Rate 77 04/17/16 10:00 Respiratory Rate 16 04/17/16 10:00 Blood Pressure 122/79 04/17/16 10:00 O2 Sat by Pulse Oximetry (%) 100 04/16/16 21:00 Constitutional: Yes: Well Nourished, No Distress HENT: Yes: WNL, Atraumatic Neck: Yes: WNL, Supple Cardiovascular: Yes: S1, S2 Extremities: Yes: Other (Large open wound with necrotic tissue inferiorly and above as well) Labs: CBC, BMP 04/17/16 05:35 04/17/16 05:35 INR, PTT INR 1.30 (0.82-1.09) H D 04/13/16 05:20 Problem List - Problems (1) Abscess Code(s): L02.91 - CUTANEOUS ABSCESS, UNSPECIFIED (2) Leukocytosis Code(s): D72.829 - ELEVATED WHITE BLOOD CELL COUNT, UNSPECIFIED Qualifiers: Leukocytosis type: unspecified Qualified Code(s): D72.829 - Elevated white blood cell count, unspecified Assessment/Plan Microbiology 04/10/16 19:53 Abscess Gram Stain - Final 04/10/16 11:50 Back Gram Stain - Final 04/10/16 11:50 Back Wound Culture - Final Anaerobic Cocci Lactobacillus Species 04/10/16 19:53 Abscess Wound Culture - Preliminary Gram Positive Bacillus Gram Positive Bacillus#2 Laboratory Tests 04/17/16 04/17/16 05:35 05:35 WBC 9.6 Hgb 8.0 L Hct 24.3 L Plt Count 247 BUN 55 H Creatinine 2.9 H Assessment Examined with surgery today still has signifcant amount of necrotic tissue which requires debridement ?? in the OR. Polymicrobial anaerobic wound culture Plan Continue current antibiotics and await surgical opinion regarding possible need for debridement Kris MOSQUERA
--- NOTE | 2016-04-17 15:04 | PN ---
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, Physician History of Present Illness: Pt seen and examined at bedside. He is awake and alert. He denies shortness of breath. - Current Medication List Current Medications: Active Medications Acetaminophen (Tylenol -) 650 mg PO Q6H PRN PRN Reason: FEVER OR PAIN Last Admin: 04/15/16 16:10 Dose: 650 mg Albuterol/Ipratropium (Duoneb -) 1 amp NEB Q6H PRN PRN Reason: SHORTNESS OF BREATH Amino Acids (Prostat Sugar-Free Packet -) 30 ml PO BID@0800,1730 [facility] Last Admin: 04/17/16 08:29 Dose: 30 ml Amiodarone HCl (Cordarone -) 100 mg PO DAILY [facility] Last Admin: 04/17/16 09:26 Dose: 100 mg Apixaban (Eliquis -) 5 mg PO BID [facility] Last Admin: 04/17/16 09:28 Dose: 5 mg Ascorbic Acid (Vitamin C -) 500 mg PO DAILY [facility] Last Admin: 04/17/16 09:27 Dose: 500 mg Brimonidine Tartrate (Alphagan 0.2% -) 1 drop OU BID [facility] Last Admin: 04/17/16 09:28 Dose: 1 drop Folic Acid (Folic Acid -) 1 mg PO DAILY [facility] Last Admin: 04/17/16 09:27 Dose: 1 mg Hydralazine HCl (Apresoline -) 10 mg PO BID [facility] Last Admin: 04/17/16 09:27 Dose: 10 mg Metronidazole (Flagyl 500mg Premixed Ivpb -) 100 mls @ 100 mls/hr IVPB Q8H-IV [facility] Last Admin: 04/17/16 09:26 Dose: 100 mls/hr Piperacillin Sod/Tazobactam Sod (Zosyn 2.25gm Ivpb (Pre-Docked)) 50 mls @ 100 mls/hr IVPB Q8H-IV [facility] Last Admin: 04/17/16 09:29 Dose: 100 mls/hr Insulin Aspart (Novolog Vial Sliding Scale -) 1 vial SQ ACHS [facility] PRN Reason: Protocol Last Admin: 04/17/16 11:08 Dose: Not Given Isosorbide Dinitrate (Isordil -) 20 mg PO BIDISORDIL [facility] Last Admin: 04/17/16 09:28 Dose: 20 mg Levothyroxine Sodium (Synthroid -) 50 mcg PO DAILY@0700 [facility] Last Admin: 04/17/16 06:40 Dose: 50 mcg Metoprolol Succinate (Toprol Xl -) 25 mg PO BID [facility] Last Admin: 04/17/16 09:28 Dose: 25 mg Multivitamins/Minerals/Vitamin C (Tab-A-Vit -) 1 tab PO DAILY [facility] Last Admin: 04/17/16 09:26 Dose: 1 tab Ranitidine HCl (Zantac -) 150 mg PO BID [facility] Last Admin: 04/17/16 09:27 Dose: 150 mg Torsemide (Demadex -) 40 mg PO DAILY [facility] Zinc Sulfate (Orazinc -) 220 mg PO DAILY [facility] Last Admin: 04/17/16 09:27 Dose: 220 mg - Objective Vital Signs: Vital Signs Temperature 97.9 F 04/17/16 13:17 Pulse Rate 60 04/17/16 13:17 Respiratory Rate 17 04/17/16 13:17 Blood Pressure 122/79 04/17/16 10:00 O2 Sat by Pulse Oximetry (%) 100 04/16/16 21:00 Constitutional: Yes: Calm Eyes: Yes: Conjunctiva Clear HENT: Yes: Atraumatic Neck: Yes: Supple Cardiovascular: Yes: S1, S2 Respiratory: Yes: CTA Bilaterally Gastrointestinal: Yes: Soft, Abdomen, Obese Genitourinary: Yes: WNL Extremities: Yes: WNL Edema: Yes Edema: LLE: Trace, RLE: Trace Wound/Incision: Yes: Other (wound vac) Neurological: Yes: Oriented Psychiatric: Yes: Oriented Labs: CBC, BMP 04/17/16 05:35 04/17/16 05:35 INR, PTT INR 1.30 (0.82-1.09) H D 04/13/16 05:20 Problem List - Problems (1) Abscess Code(s): L02.91 - CUTANEOUS ABSCESS, UNSPECIFIED (2) Acute on chronic renal failure Code(s): N17.9 - ACUTE KIDNEY FAILURE, UNSPECIFIED N18.9 - CHRONIC KIDNEY DISEASE, UNSPECIFIED (3) Leukocytosis Code(s): D72.829 - ELEVATED WHITE BLOOD CELL COUNT, UNSPECIFIED Qualifiers: Leukocytosis type: unspecified Qualified Code(s): D72.829 - Elevated white blood cell count, unspecified (4) Anemia Code(s): D64.9 - ANEMIA, UNSPECIFIED Qualifiers: Other causes of anemia: chronic disease, kidney (5) Congestive heart failure (CHF) Code(s): I50.9 - HEART FAILURE, UNSPECIFIED Qualifiers: Congestive heart failure type: systolic Congestive heart failure chronicity: chronic Qualified Code(s): I50.22 - Chronic systolic (congestive ) heart failure (6) DMII (diabetes mellitus, type 2) Code(s): E11.9 - TYPE 2 DIABETES MELLITUS WITHOUT COMPLICATIONS Qualifiers: Diabetes mellitus complication detail: with other kidney complication (7) HTN (hypertension) Code(s): I10 - ESSENTIAL (PRIMARY) HYPERTENSION Qualifiers: Hypertension type: essential hypertension Qualified Code(s): I10 - Essential (primary) hypertension (8) Hyperkalemia Code(s): E87.5 - HYPERKALEMIA Assessment/Plan Current Medications Generic Name Dose Route Start Last Admin Trade Name Freq PRN Reason Stop Dose Admin Acetaminophen 650 mg 04/14/16 11:44 04/15/16 16:10 Tylenol - PO 650 mg Q6H PRN Administration FEVER OR PAIN Albuterol/Ipratropium 1 amp 04/14/16 11:44 Duoneb - NEB Q6H PRN SHORTNESS OF BREATH Amino Acids 30 ml 04/16/16 17:30 04/17/16 08:29 Prostat Sugar-Free Packet - PO 30 ml BID@0800,1730 [facility] Administration Amiodarone HCl 100 mg 04/15/16 10:00 04/17/16 09:26 Cordarone - PO 100 mg DAILY [facility] Administration Apixaban 5 mg 04/16/16 11:30 04/17/16 09:28 Eliquis - PO 5 mg BID [facility] Administration Ascorbic Acid 500 mg 04/16/16 10:00 04/17/16 09:27 Vitamin C - PO 500 mg DAILY [facility] Administration Brimonidine Tartrate 1 drop 04/14/16 22:00 04/17/16 09:28 Alphagan 0.2% - OU 1 drop BID [facility] Administration Folic Acid 1 mg 04/15/16 10:00 04/17/16 09:27 Folic Acid - PO 1 mg DAILY [facility] Administration Hydralazine HCl 10 mg 04/15/16 22:00 04/17/16 09:27 Apresoline - PO 10 mg BID [facility] Administration Metronidazole 100 mls @ 100 mls/hr 04/14/16 18:00 04/17/16 09:26 Flagyl 500mg Premixed Ivpb - IVPB 100 mls/hr Q8H-IV [facility] Administration Piperacillin Sod/Tazobactam Sod 50 mls @ 100 mls/hr 04/14/16 18:00 04/17/16 09: 29 Zosyn 2.25gm Ivpb (Pre-Docked) IVPB 100 mls/hr Q8H-IV [facility] Administration Insulin Aspart 1 vial 04/14/16 16:30 04/17/16 11:08 Novolog Vial Sliding Scale - SQ Not Given ACHS [facility] Protocol Isosorbide Dinitrate 20 mg 04/14/16 18:00 04/17/16 09:28 Isordil - PO 20 mg BIDISORDIL [facility] Administration Levothyroxine Sodium 50 mcg 04/15/16 07:00 04/17/16 06:40 Synthroid - PO 50 mcg DAILY@0700 [facility] Administration Metoprolol Succinate 25 mg 04/14/16 22:00 04/17/16 09:28 Toprol Xl - PO 25 mg BID [facility] Administration Multivitamins/Minerals/Vitamin C 1 tab 04/16/16 10:00 04/17/16 09:26 Tab-A-Vit - PO 1 tab DAILY [facility] Administration Ranitidine HCl 150 mg 04/14/16 22:00 04/17/16 09:27 Zantac - PO 150 mg BID [facility] Administration Torsemide 40 mg 04/18/16 10:00 Demadex - PO DAILY [facility] Zinc Sulfate 220 mg 04/16/16 10:00 04/17/16 09:27 Orazinc - PO 220 mg DAILY [facility] Administration Impression 1. CASE 2. hyperkalemia 3. cellulitis/abscess of back 4. CHF 5. hypothyroidism 6. hyperlipidemia 7. COPD 8. htn 9. sepsis Plan - will restart torsemide - cxr reviewed, no great change or signs of failure - monitor renal function - cont wound care - abx per ID Dr Martinez
--- NOTE | 2016-04-17 16:09 | PN ---
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 (short form) - Note 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: Pt seen and examined and wound vac changed today. Vital Signs Period Temp Pulse Resp BP Sys/Hubbard Pulse Ox Last 24 Hr 97.8 F-99.1 F 60-77 16-20 110-122/53-79 100 PE: GEN: appears comfortable Left shoulder: area cleaned with mechanical debridement(using 4x4 gauze), necrotic tissue at base with minimal in upper underminded area. The area was repacked today with balck foam to include the undermined areas. A bridge of black foam was brought to the left shoulder. CBC, BMP 04/17/16 05:35 04/17/16 05:35 Problem List - Problems (1) Abscess Assessment/Plan: Case D/w Dr. Walker, vac dressing to be reapplied with change on ,,thursday. Please note that when changing the vac, please jplace black foam in undermined area in left upper aspect of wound. Continue IV abx as per ID. The patient is now receiving eliquis, monitor wound vac for bloody drainage. Code(s): L02.91 - CUTANEOUS ABSCESS, UNSPECIFIED (2) Acute on chronic renal failure Code(s): N17.9 - ACUTE KIDNEY FAILURE, UNSPECIFIED N18.9 - CHRONIC KIDNEY DISEASE, UNSPECIFIED
[2016-04-17 16:11] LABS: C-REACTIVE PROTEIN 4.1 MG/DL (0.00-0.3)
[2016-04-17] MEDS: ACETAMINOPHEN 325 MG TABLET (FP) PO PRN (18:27)
[2016-04-18] MEDS: METRONIDAZOLE 500 MG PREMIXED 100 ML IVPB SCH ×3 (01:52→18:21)
[2016-04-18] MEDS: PIPERACILLIN/TAZOB 2.25 GM 50 ML IVPB SCH ×3 (02:54→18:20)
[2016-04-18] MEDS: INSULIN SLIDING SCALE (NOVOLOG) 1 VIAL SQ SCH ×4 (06:08→22:08)
[2016-04-18] MEDS: LEVOTHYROXINE NA 50 MCG TABLET (FP) PO SCH (06:08)
[2016-04-18 07:43] LABS: MCHC 32.9 g/dl (32.0-35.9); MEAN CELL VOLUME 88.3 fl (80-96); PLATELET COUNT 243 K/MM3 (134-434); RDW 17.4 % (11.9-15.9); WHITE BLOOD COUNT 8.4 K/mm3 (4.0-10.0)
--- NOTE | 2016-04-18 07:56 | PN ---
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, Physician Chief Complaint: CALM - Current Medication List Current Medications: Active Medications Acetaminophen (Tylenol -) 650 mg PO Q6H PRN PRN Reason: FEVER OR PAIN Last Admin: 04/17/16 18:27 Dose: 650 mg Albuterol/Ipratropium (Duoneb -) 1 amp NEB Q6H PRN PRN Reason: SHORTNESS OF BREATH Amino Acids (Prostat Sugar-Free Packet -) 30 ml PO BID@0800,1730 [facility] Last Admin: 04/17/16 17:18 Dose: 30 ml Amiodarone HCl (Cordarone -) 100 mg PO DAILY [facility] Last Admin: 04/17/16 09:26 Dose: 100 mg Apixaban (Eliquis -) 5 mg PO BID [facility] Last Admin: 04/17/16 21:54 Dose: 5 mg Ascorbic Acid (Vitamin C -) 500 mg PO DAILY [facility] Last Admin: 04/17/16 09:27 Dose: 500 mg Brimonidine Tartrate (Alphagan 0.2% -) 1 drop OU BID [facility] Last Admin: 04/17/16 21:55 Dose: 1 drop Folic Acid (Folic Acid -) 1 mg PO DAILY [facility] Last Admin: 04/17/16 09:27 Dose: 1 mg Hydralazine HCl (Apresoline -) 10 mg PO BID [facility] Last Admin: 04/17/16 21:54 Dose: 10 mg Metronidazole (Flagyl 500mg Premixed Ivpb -) 100 mls @ 100 mls/hr IVPB Q8H-IV [facility] Last Admin: 04/18/16 01:52 Dose: 100 mls/hr Piperacillin Sod/Tazobactam Sod (Zosyn 2.25gm Ivpb (Pre-Docked)) 50 mls @ 100 mls/hr IVPB Q8H-IV [facility] Last Admin: 04/18/16 02:54 Dose: 100 mls/hr Insulin Aspart (Novolog Vial Sliding Scale -) 1 vial SQ ACHS [facility] PRN Reason: Protocol Last Admin: 04/18/16 06:08 Dose: Not Given Isosorbide Dinitrate (Isordil -) 20 mg PO BIDISORDIL [facility] Last Admin: 04/17/16 17:18 Dose: Not Given Levothyroxine Sodium (Synthroid -) 50 mcg PO DAILY@0700 [facility] Last Admin: 04/18/16 06:08 Dose: 50 mcg Metoprolol Succinate (Toprol Xl -) 25 mg PO BID [facility] Last Admin: 04/17/16 21:54 Dose: 25 mg Multivitamins/Minerals/Vitamin C (Tab-A-Vit -) 1 tab PO DAILY [facility] Last Admin: 04/17/16 09:26 Dose: 1 tab Ranitidine HCl (Zantac -) 150 mg PO BID [facility] Last Admin: 04/17/16 21:53 Dose: 150 mg Torsemide (Demadex -) 40 mg PO DAILY [facility] Zinc Sulfate (Orazinc -) 220 mg PO DAILY [facility] Last Admin: 04/17/16 09:27 Dose: 220 mg - Objective Vital Signs: Vital Signs Temperature 98.1 F 04/18/16 06:00 Pulse Rate 59 L 04/18/16 06:00 Respiratory Rate 20 04/18/16 06:00 Blood Pressure 115/72 04/18/16 06:00 O2 Sat by Pulse Oximetry (%) 100 04/16/16 21:00 Cardiovascular: Yes: S1, S2 Respiratory: Yes: CTA Bilaterally Gastrointestinal: Yes: Normal Bowel Sounds, Soft Edema: Yes Labs: INR, PTT INR 1.30 (0.82-1.09) H D 04/13/16 05:20 Problem List - Problems (1) Abscess Code(s): L02.91 - CUTANEOUS ABSCESS, UNSPECIFIED (2) Acute on chronic renal failure Code(s): N17.9 - ACUTE KIDNEY FAILURE, UNSPECIFIED N18.9 - CHRONIC KIDNEY DISEASE, UNSPECIFIED (3) Anemia Code(s): D64.9 - ANEMIA, UNSPECIFIED Qualifiers: Other causes of anemia: chronic disease, kidney (4) Atrial flutter Code(s): I48.92 - UNSPECIFIED ATRIAL FLUTTER (5) CKD (chronic kidney disease), stage II Code(s): N18.2 - CHRONIC KIDNEY DISEASE, STAGE 2 (MILD) (6) Congestive heart failure (CHF) Code(s): I50.9 - HEART FAILURE, UNSPECIFIED Qualifiers: Congestive heart failure type: systolic Congestive heart failure chronicity: chronic Qualified Code(s): I50.22 - Chronic systolic (congestive ) heart failure (7) DMII (diabetes mellitus, type 2) Code(s): E11.9 - TYPE 2 DIABETES MELLITUS WITHOUT COMPLICATIONS Qualifiers: Diabetes mellitus complication detail: with other kidney complication Assessment/Plan (1) Abscess Code(s): L02.91 - CUTANEOUS ABSCESS, UNSPECIFIED (2) Acute on chronic renal failure Code(s): N17.9 - ACUTE KIDNEY FAILURE, UNSPECIFIED N18.9 - CHRONIC KIDNEY DISEASE, UNSPECIFIED (3) Leukocytosis Code(s): D72.829 - ELEVATED WHITE BLOOD CELL COUNT, UNSPECIFIED Qualifiers: Leukocytosis type: unspecified Qualified Code(s): D72.829 - Elevated white blood cell count, unspecified (4) Anemia Code(s): D64.9 - ANEMIA, UNSPECIFIED Qualifiers: Other causes of anemia: chronic disease, kidney (5) Anticoagulated by anticoagulation treatment Code(s): Z79.01 - CUSTODIAL (CURRENT) USE OF ANTICOAGULANTS (6) Atrial flutter Code(s): I48.92 - UNSPECIFIED ATRIAL FLUTTER (7) CKD (chronic kidney disease), stage II Code(s): N18.2 - CHRONIC KIDNEY DISEASE, STAGE 2 (MILD) (8) Congestive heart failure (CHF) Code(s): I50.9 - HEART FAILURE, UNSPECIFIED Qualifiers: Congestive heart failure type: systolic Congestive heart failure chronicity: chronic Qualified Code(s): I50.22 - Chronic systolic (congestive ) heart failure (9) HTN (hypertension) Code(s): I10 - ESSENTIAL (PRIMARY) HYPERTENSION Qualifiers: Hypertension type: essential hypertension Qualified Code(s): I10 - Essential (primary) hypertension (10) Hyperkalemia Code(s): E87.5 - HYPERKALEMIA (11) Paroxysmal atrial flutter Code(s): I48.92 - UNSPECIFIED ATRIAL FLUTTER (12) Unsteady gait Code(s): R26.81 - UNSTEADINESS ON FEET Assessment/Plan IV ABX PER ID CULTURES +Kenyatta WILL NEED IV ABX AT SNF -> WILL CONSIDER PICC LINE SW & PT ON CASE FOR SNF CESAR DALY CARDIO ON CASE ONLY ON NOAC RATE CONTROL AFIB/FLUTTER +BM, +APPETITE WOUND VAC CONTINUED SURG ON CASE -> NO PLANNED DEBRIDEMENT EMERGENCY PLANNER FM
[2016-04-18 08:23] LABS: CALCIUM 8.5 mg/dL (8.5-10.1); CREATININE 2.9 mg/dL (0.7-1.3)
--- NOTE | 2016-04-18 08:34 | PN ---
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 (short form) - Note 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: No acute events Pain controlled On diet On eliquis On antibiotics Vital Signs Period Temp Pulse Resp BP Sys/Hubbard Pulse Ox Last 24 Hr 97.9 F-99.1 F 59-77 16-20 101-156/60-92 Wound dressed CBC, BMP 04/18/16 06:00 04/18/16 06:00 Continue VAC therapy Allow VAC to further debride tissue No further debridement/surgical intervention at this time Can discharge to Nursing facility with VAC and antibiotics per ID F/U in wound care center for wound management
[2016-04-18] MEDS: AMINO ACIDS/PROTEIN HYDROLYS SUGAR-FREE 30 ML PACKET PO SCH ×2 (09:10→18:20)
[2016-04-18] MEDS: TORSEMIDE 20 MG TABLET (FP) PO SCH (09:14)
[2016-04-18] MEDS: RANITIDINE HCL 150 MG TABLET (FP) PO SCH ×2 (09:15→22:07)
[2016-04-18] MEDS: FOLIC ACID 1 MG TABLET (FP) PO SCH (09:15)
[2016-04-18] MEDS: AMIODARONE HCL 200 MG TABLET (FP) PO SCH (09:15)
[2016-04-18] MEDS: METOPROLOL SUCCINATE 25 MG TAB.SR.24H (FP) PO SCH ×2 (09:15→22:07)
[2016-04-18] MEDS: ZINC SULFATE 220 MG CAPSULE (FP) PO SCH (09:15)
[2016-04-18] MEDS: MULTIVITAMINS (DAILY MVI) TABLET (FP) PO SCH (09:15)
[2016-04-18] MEDS: ASCORBIC ACID 500 MG TABLET (FP) PO SCH (09:15)
[2016-04-18] MEDS: BRIMONIDINE TARTRATE 0.2% OPHTHALMIC 5 ML BOTTLE OU SCH ×2 (09:17→22:07)
[2016-04-18] MEDS: APIXABAN 5 MG TABLET PO SCH ×2 (09:19→22:07)
[2016-04-18] MEDS: hydrALAZINE HCL 10 MG TABLET PO SCH ×2 (09:19→22:07)
[2016-04-18] MEDS: ISOSORBIDE DINITRATE 20 MG TABLET (FP) PO SCH ×2 (09:21→18:20)
--- NOTE | 2016-04-18 12:03 | PN ---
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 (short form) - Note 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: doing well oob to chair vac in place d/w Dr Ponce who was able to see the wound and discuss with surgery no further debridement planned Vital Signs Period Temp Pulse Resp BP Sys/Hubbard Pulse Ox Last 24 Hr 97.9 F-98.6 F 59-66 17-20 101-156/60-92 cor-rrr lungs clear vac intact abd soft,nt CBC, BMP 04/18/16 06:00 04/18/16 06:00 Microbiology 04/10/16 19:53 Abscess Gram Stain - Final 04/10/16 19:53 Abscess Wound Culture - Final Eubacterium Aerofaciens Peptostrep Asaccharolyticus 04/10/16 11:50 Back Gram Stain - Final 04/10/16 11:50 Back Wound Culture - Final Anaerobic Cocci Lactobacillus Species 04/10/16 11:41 Blood - Peripheral Venous Blood Culture - Final NO GROWTH AFTER 5 DAYS INCUBATION 04/10/16 11:50 Blood - Peripheral Venous Blood Culture - Final NO GROWTH AFTER 5 DAYS INCUBATION 04/10/16 21:17 Urine - Urine López Urine Culture - Final NO GROWTH OBTAINED a/p anaerobic soft tissue abscess s/p debridement can switch to po augmentin 500 bid (adjusted for CKD) with surgical f/u and wound care
--- NOTE | 2016-04-18 15:53 | DS ---
Physical Examination Vital Signs: Vital Signs Temperature 98.1 F 04/18/16 14:00 Pulse Rate 65 04/18/16 14:00 Respiratory Rate 17 04/18/16 14:00 Blood Pressure 156/92 04/18/16 08:09 O2 Sat by Pulse Oximetry (%) 100 04/18/16 09:00 Cardiovascular: Yes: WNL Respiratory: Yes: WNL Gastrointestinal: Yes: WNL Labs: CBC, BMP 04/18/16 06:00 04/18/16 06:00 Discharge Summary Reason For Visit: ABSCESS/LEUKOCYTOSIS/ACUTE ON CHR RENAL FAILURE Current Active Problems Abscess (Acute) Acute on chronic renal failure (Acute) COPD (chronic obstructive pulmonary disease) (Acute) Leukocytosis (Acute) Hospital Course: (1) Abscess Code(s): L02.91 - CUTANEOUS ABSCESS, UNSPECIFIED (2) Acute on chronic renal failure Code(s): N17.9 - ACUTE KIDNEY FAILURE, UNSPECIFIED N18.9 - CHRONIC KIDNEY DISEASE, UNSPECIFIED (3) Leukocytosis Code(s): D72.829 - ELEVATED WHITE BLOOD CELL COUNT, UNSPECIFIED Qualifiers: Leukocytosis type: unspecified Qualified Code(s): D72.829 - Elevated white blood cell count, unspecified (4) Anemia Code(s): D64.9 - ANEMIA, UNSPECIFIED Qualifiers: Other causes of anemia: chronic disease, kidney (5) Anticoagulated by anticoagulation treatment Code(s): Z79.01 - PENITENTIARY (CURRENT) USE OF ANTICOAGULANTS (6) Atrial flutter Code(s): I48.92 - UNSPECIFIED ATRIAL FLUTTER (7) CKD (chronic kidney disease), stage II Code(s): N18.2 - CHRONIC KIDNEY DISEASE, STAGE 2 (MILD) (8) Congestive heart failure (CHF) Code(s): I50.9 - HEART FAILURE, UNSPECIFIED Qualifiers: Congestive heart failure type: systolic Congestive heart failure chronicity: chronic Qualified Code(s): I50.22 - Chronic systolic (congestive ) heart failure (9) HTN (hypertension) Code(s): I10 - ESSENTIAL (PRIMARY) HYPERTENSION Qualifiers: Hypertension type: essential hypertension Qualified Code(s): I10 - Essential (primary) hypertension (10) Hyperkalemia Code(s): E87.5 - HYPERKALEMIA (11) Paroxysmal atrial flutter Code(s): I48.92 - UNSPECIFIED ATRIAL FLUTTER (12) Unsteady gait Code(s): R26.81 - UNSTEADINESS ON FEET Assessment/Plan IV ABX PER ID -> PO CULTURES +Kenyatta SW & PT ON CASE FOR SNF CARDIO ON CASE ONLY ON NOAC RATE CONTROL AFIB/FLUTTER +BM, +APPETITE WOUND VAC CONTINUED SURG ON CASE -> NO PLANNED DEBRIDEMENT SHIRT FOLDER FM Condition: Stable - Instructions Referrals: Davin Dee MD [Primary Care Provider] - Disposition: NURSING HOME FACILITY - Home Medications Comprehensive Discharge Medication List: Ambulatory Orders Amiodarone HCl 200 mg PO DAILY 04/11/16 Apixaban [Eliquis] 5 mg PO BID 04/11/16 Atorvastatin Ca [Lipitor] 10 mg PO DAILY 04/11/16 Hydralazine HCl 10 mg PO TID 04/11/16 Isosorbide Dinitrate [Isordil -] 20 mg PO TID 04/11/16 Metoprolol Succinate [Toprol Xl -] 50 mg PO DAILY 04/11/16 Potassium Chloride [K-Tab ER] 20 meq PO DAILY 04/11/16 Torsemide 100 mg PO DAILY 04/11/16
--- NOTE | 2016-04-18 17:16 | PN ---
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 (short form) - Note 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: CC: NICM s:denies sob or orthopnea; no cp, palpit, dizzy. + LE edema. torsemide started today. Current Medications Acetaminophen (Tylenol -) 650 mg PO Q6H PRN PRN Reason: FEVER OR PAIN Last Admin: 04/17/16 18:27 Dose: 650 mg Albuterol/Ipratropium (Duoneb -) 1 amp NEB Q6H PRN PRN Reason: SHORTNESS OF BREATH Amino Acids (Prostat Sugar-Free Packet -) 30 ml PO BID@0800,1730 [facility] Last Admin: 04/18/16 09:10 Dose: 30 ml Amiodarone HCl (Cordarone -) 100 mg PO DAILY [facility] Last Admin: 04/18/16 09:15 Dose: 100 mg Apixaban (Eliquis -) 5 mg PO BID [facility] Last Admin: 04/18/16 09:19 Dose: 5 mg Ascorbic Acid (Vitamin C -) 500 mg PO DAILY [facility] Last Admin: 04/18/16 09:15 Dose: 500 mg Brimonidine Tartrate (Alphagan 0.2% -) 1 drop OU BID [facility] Last Admin: 04/18/16 09:17 Dose: 1 drop Folic Acid (Folic Acid -) 1 mg PO DAILY [facility] Last Admin: 04/18/16 09:15 Dose: 1 mg Hydralazine HCl (Apresoline -) 10 mg PO BID [facility] Last Admin: 04/18/16 09:19 Dose: 10 mg Metronidazole (Flagyl 500mg Premixed Ivpb -) 100 mls @ 100 mls/hr IVPB Q8H-IV [facility] Last Admin: 04/18/16 09:19 Dose: 100 mls/hr Piperacillin Sod/Tazobactam Sod (Zosyn 2.25gm Ivpb (Pre-Docked)) 50 mls @ 100 mls/hr IVPB Q8H-IV [facility] Last Admin: 04/18/16 09:16 Dose: 100 mls/hr Insulin Aspart (Novolog Vial Sliding Scale -) 1 vial SQ ACHS [facility] PRN Reason: Protocol Last Admin: 04/18/16 12:46 Dose: Not Given Isosorbide Dinitrate (Isordil -) 20 mg PO BIDISORDIL [facility] Last Admin: 04/18/16 09:21 Dose: 20 mg Levothyroxine Sodium (Synthroid -) 50 mcg PO DAILY@0700 [facility] Last Admin: 04/18/16 06:08 Dose: 50 mcg Metoprolol Succinate (Toprol Xl -) 25 mg PO BID [facility] Last Admin: 04/18/16 09:15 Dose: 25 mg Multivitamins/Minerals/Vitamin C (Tab-A-Vit -) 1 tab PO DAILY [facility] Last Admin: 04/18/16 09:15 Dose: 1 tab Ranitidine HCl (Zantac -) 150 mg PO BID [facility] Last Admin: 04/18/16 09:15 Dose: 150 mg Torsemide (Demadex -) 40 mg PO DAILY [facility] Last Admin: 04/18/16 09:14 Dose: 40 mg Zinc Sulfate (Orazinc -) 220 mg PO DAILY [facility] Last Admin: 04/18/16 09:15 Dose: 220 mg Vital Signs - 24 hr 04/17/16 04/18/16 04/18/16 21:00 06:00 08:09 Temperature 98 F 98.1 F 98.1 F Pulse Rate 65 59 L 62 Respiratory 20 20 20 Rate Blood Pressure 110/61 115/72 156/92 O2 Sat by Pulse Oximetry (%) 04/18/16 04/18/16 09:00 14:00 Temperature 98.1 F Pulse Rate 65 Respiratory 17 Rate Blood Pressure O2 Sat by Pulse 100 Oximetry (%) Intake & Output 04/16/16 04/17/16 04/18/16 04/19/16 07:59 07:59 07:59 07:59 Intake Total 1620 1419 1100 550 Output Total 550 1350 1150 300 Balance 1070 69 -50 250 Weight 225 lb 5 oz 228 lb 8 oz 224 lb Constitutional: Yes: Well Nourished, No Distress, Calm Cardiovascular: Yes: Regular Rate and Rhythm, S1, S2. No: JVD, Gallop, Murmur Respiratory: Yes: Regular, CTA Bilaterally. No: Accessory Muscle Use, Rales, Wheezes Extremities: No: Cold Edema: 1+ to upper thigh Neurological: Yes: Alert, Oriented Psychiatric: No: Agitated no jaundice diaphoresis CBC, BMP 04/18/16 06:00 04/18/16 06:00 echo 03/2016: severely decreased LV fn (global), nl rv. 1+ AR/MR. Mod MAC. 1+ TR. rvsp 30-40 mibi 10/2014: no ischemia, [place] [place]ity used. mild lve, lvef 45%, nl rv, mild AR, sev lae , nl rvsp EKG: SR with pvc's. AV conduction delay, IVCD. lateral T wave flattening, similar to priors. prior tele: SR with pac's/pvc's. cannot rule out intermittent afib. a/p: 75 m hx non obs cad (cath 10/2014: only mild disease RCA), remote HI ( mentioned in prior charts, no further details, pt unclear of hx), syst chf (NICM , mild dec lvef), htn, copd, dm, ckd (cr 2's), aflutter on eliquis, here with subcutaneous abscess/sepsis/CASE. aflutter - remained in sinus here while on tele - cont amiodarone (tsh, lft's ok) and metoprolol - on eliquis, hgb stable. NICM - rpt echo with worsened LV function. Follow up with cardiology as outpatient for evaluation of etiology of worsened LV function. - con't regimen of metoprolol, hydralazine, isordil - had been holding diuretics and initially required IVF due to CASE. cr now improved. pt reports he was taking torsemide 70 mg daily at home and he had case when admitted so may need lower dose. started back on torsemide 40 mg qd. - not on NORMAN/ARB previously, presumably due to advanced CKD and/or labile creatinines - Will need close outpatient follow up with his marketing trainee Dr. Acosta to monitor volume status on current torsemide dose. VTach: - brief runs (3-4 beats) on tele - K/Mag good - last EF relatively preserved --> now severely depressed. - cont BB as doing, outpt cardiology f/u acute on chronic ckd -have been holding diuretics due to CASE. cr now improved. pt reports he was taking torsemide 70 mg daily at home and he had case when admitted so may need lower dose. started back on torsemide 40 mg qd. -renal following as well anemia: -hgb drifted down to <7 so received prbcs -seen by GI: has h/o gastric ulcers and diverticular bleeding in past, but no melena and guaiac neg here--i.e. no active GIB suspected -AC mgmt as above HTN -stable on current meds non-obstructive CAD - Not on statin, will defer to outpatient marketing trainee. - on AC subcutaneous abscess, s/p I and D 04/11 - bp/hr stable post-op - surgery/ID following - planned for snf for jail abx
--- NOTE | 2016-04-18 19:16 | PN ---
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, Physician History of Present Illness: Pt seen and examined at bedside. He is awake and alert. He denies shortness of breath. He denies lower extremity edema. - Current Medication List Current Medications: Active Medications Acetaminophen (Tylenol -) 650 mg PO Q6H PRN PRN Reason: FEVER OR PAIN Last Admin: 04/17/16 18:27 Dose: 650 mg Albuterol/Ipratropium (Duoneb -) 1 amp NEB Q6H PRN PRN Reason: SHORTNESS OF BREATH Amino Acids (Prostat Sugar-Free Packet -) 30 ml PO BID@0800,1730 [facility] Last Admin: 04/18/16 18:20 Dose: 30 ml Amiodarone HCl (Cordarone -) 100 mg PO DAILY [facility] Last Admin: 04/18/16 09:15 Dose: 100 mg Apixaban (Eliquis -) 5 mg PO BID [facility] Last Admin: 04/18/16 09:19 Dose: 5 mg Ascorbic Acid (Vitamin C -) 500 mg PO DAILY [facility] Last Admin: 04/18/16 09:15 Dose: 500 mg Brimonidine Tartrate (Alphagan 0.2% -) 1 drop OU BID [facility] Last Admin: 04/18/16 09:17 Dose: 1 drop Folic Acid (Folic Acid -) 1 mg PO DAILY [facility] Last Admin: 04/18/16 09:15 Dose: 1 mg Hydralazine HCl (Apresoline -) 10 mg PO BID [facility] Last Admin: 04/18/16 09:19 Dose: 10 mg Metronidazole (Flagyl 500mg Premixed Ivpb -) 100 mls @ 100 mls/hr IVPB Q8H-IV [facility] Last Admin: 04/18/16 18:21 Dose: 100 mls/hr Piperacillin Sod/Tazobactam Sod (Zosyn 2.25gm Ivpb (Pre-Docked)) 50 mls @ 100 mls/hr IVPB Q8H-IV [facility] Last Admin: 04/18/16 18:20 Dose: 100 mls/hr Insulin Aspart (Novolog Vial Sliding Scale -) 1 vial SQ ACHS [facility] PRN Reason: Protocol Last Admin: 04/18/16 18:20 Dose: Not Given Isosorbide Dinitrate (Isordil -) 20 mg PO BIDISORDIL [facility] Last Admin: 04/18/16 18:20 Dose: 20 mg Levothyroxine Sodium (Synthroid -) 50 mcg PO DAILY@0700 [facility] Last Admin: 04/18/16 06:08 Dose: 50 mcg Metoprolol Succinate (Toprol Xl -) 25 mg PO BID [facility] Last Admin: 04/18/16 09:15 Dose: 25 mg Multivitamins/Minerals/Vitamin C (Tab-A-Vit -) 1 tab PO DAILY [facility] Last Admin: 04/18/16 09:15 Dose: 1 tab Ranitidine HCl (Zantac -) 150 mg PO BID [facility] Last Admin: 04/18/16 09:15 Dose: 150 mg Torsemide (Demadex -) 40 mg PO DAILY [facility] Last Admin: 04/18/16 09:14 Dose: 40 mg Zinc Sulfate (Orazinc -) 220 mg PO DAILY [facility] Last Admin: 04/18/16 09:15 Dose: 220 mg - Objective Vital Signs: Vital Signs Temperature 97.8 F 04/18/16 17:34 Pulse Rate 83 04/18/16 17:34 Respiratory Rate 19 04/18/16 17:34 Blood Pressure 112/69 04/18/16 17:34 O2 Sat by Pulse Oximetry (%) 100 04/18/16 09:00 Constitutional: Yes: Calm Eyes: Yes: Conjunctiva Clear HENT: Yes: Atraumatic Neck: Yes: Supple Cardiovascular: Yes: S1, S2 Respiratory: Yes: CTA Bilaterally Gastrointestinal: Yes: Soft, Abdomen, Obese Genitourinary: Yes: WNL Musculoskeletal: Yes: WNL Edema: Yes Edema: LLE: Trace, RLE: Trace Neurological: Yes: Oriented Psychiatric: Yes: Oriented Labs: CBC, BMP 04/18/16 06:00 04/18/16 06:00 INR, PTT INR 1.30 (0.82-1.09) H D 04/13/16 05:20 Problem List - Problems (1) Abscess Code(s): L02.91 - CUTANEOUS ABSCESS, UNSPECIFIED (2) Acute on chronic renal failure Code(s): N17.9 - ACUTE KIDNEY FAILURE, UNSPECIFIED N18.9 - CHRONIC KIDNEY DISEASE, UNSPECIFIED (3) Leukocytosis Code(s): D72.829 - ELEVATED WHITE BLOOD CELL COUNT, UNSPECIFIED Qualifiers: Leukocytosis type: unspecified Qualified Code(s): D72.829 - Elevated white blood cell count, unspecified (4) Anemia Code(s): D64.9 - ANEMIA, UNSPECIFIED Qualifiers: Other causes of anemia: chronic disease, kidney (5) Congestive heart failure (CHF) Code(s): I50.9 - HEART FAILURE, UNSPECIFIED Qualifiers: Congestive heart failure type: systolic Congestive heart failure chronicity: chronic Qualified Code(s): I50.22 - Chronic systolic (congestive ) heart failure (6) DMII (diabetes mellitus, type 2) Code(s): E11.9 - TYPE 2 DIABETES MELLITUS WITHOUT COMPLICATIONS Qualifiers: Diabetes mellitus complication detail: with other kidney complication (7) HTN (hypertension) Code(s): I10 - ESSENTIAL (PRIMARY) HYPERTENSION Qualifiers: Hypertension type: essential hypertension Qualified Code(s): I10 - Essential (primary) hypertension (8) Hyperkalemia Code(s): E87.5 - HYPERKALEMIA Assessment/Plan Current Medications Generic Name Dose Route Start Last Admin Trade Name Freq PRN Reason Stop Dose Admin Acetaminophen 650 mg 04/14/16 11:44 04/17/16 18:27 Tylenol - PO 650 mg Q6H PRN Administration FEVER OR PAIN Albuterol/Ipratropium 1 amp 04/14/16 11:44 Duoneb - NEB Q6H PRN SHORTNESS OF BREATH Amino Acids 30 ml 04/16/16 17:30 04/18/16 18:20 Prostat Sugar-Free Packet - PO 30 ml BID@0800,1730 [facility] Administration Amiodarone HCl 100 mg 04/15/16 10:00 04/18/16 09:15 Cordarone - PO 100 mg DAILY [facility] Administration Apixaban 5 mg 04/16/16 11:30 04/18/16 09:19 Eliquis - PO 5 mg BID [facility] Administration Ascorbic Acid 500 mg 04/16/16 10:00 04/18/16 09:15 Vitamin C - PO 500 mg DAILY [facility] Administration Brimonidine Tartrate 1 drop 04/14/16 22:00 04/18/16 09:17 Alphagan 0.2% - OU 1 drop BID [facility] Administration Folic Acid 1 mg 04/15/16 10:00 04/18/16 09:15 Folic Acid - PO 1 mg DAILY [facility] Administration Hydralazine HCl 10 mg 04/15/16 22:00 04/18/16 09:19 Apresoline - PO 10 mg BID [facility] Administration Metronidazole 100 mls @ 100 mls/hr 04/14/16 18:00 04/18/16 18:21 Flagyl 500mg Premixed Ivpb - IVPB 100 mls/hr Q8H-IV [facility] Administration Piperacillin Sod/Tazobactam Sod 50 mls @ 100 mls/hr 04/14/16 18:00 04/18/16 18: 20 Zosyn 2.25gm Ivpb (Pre-Docked) IVPB 100 mls/hr Q8H-IV [facility] Administration Insulin Aspart 1 vial 04/14/16 16:30 04/18/16 18:20 Novolog Vial Sliding Scale - SQ Not Given ACHS [facility] Protocol Isosorbide Dinitrate 20 mg 04/14/16 18:00 04/18/16 18:20 Isordil - PO 20 mg BIDISORDIL [facility] Administration Levothyroxine Sodium 50 mcg 04/15/16 07:00 04/18/16 06:08 Synthroid - PO 50 mcg DAILY@0700 [facility] Administration Metoprolol Succinate 25 mg 04/14/16 22:00 04/18/16 09:15 Toprol Xl - PO 25 mg BID [facility] Administration Multivitamins/Minerals/Vitamin C 1 tab 04/16/16 10:00 04/18/16 09:15 Tab-A-Vit - PO 1 tab DAILY [facility] Administration Ranitidine HCl 150 mg 04/14/16 22:00 04/18/16 09:15 Zantac - PO 150 mg BID [facility] Administration Torsemide 40 mg 04/18/16 10:00 04/18/16 09:14 Demadex - PO 40 mg DAILY [facility] Administration Zinc Sulfate 220 mg 04/16/16 10:00 04/18/16 09:15 Orazinc - PO 220 mg DAILY [facility] Administration Impression 1. CASE 2. hyperkalemia 3. cellulitis/abscess of back 4. CHF 5. hypothyroidism 6. hyperlipidemia 7. COPD 8. htn 9. sepsis Plan - cont with torsemide - will monitor renal function - will need outpt follow - cont wound care - cont abx - monitor potassium Dr Martinez
[2016-04-18] MEDS ORDERED: PT OWN MED DRAWER 7, Y5N ONE (21:48)
[2016-04-19] MEDS: METRONIDAZOLE 500 MG PREMIXED 100 ML IVPB SCH ×2 (03:06→09:37)
[2016-04-19] MEDS: PIPERACILLIN/TAZOB 2.25 GM 50 ML IVPB SCH ×2 (03:28→09:18)
[2016-04-19] MEDS: LEVOTHYROXINE NA 50 MCG TABLET (FP) PO SCH (06:47)
[2016-04-19] MEDS: INSULIN SLIDING SCALE (NOVOLOG) 1 VIAL SQ SCH (06:47)
[2016-04-19] MEDS: AMINO ACIDS/PROTEIN HYDROLYS SUGAR-FREE 30 ML PACKET PO SCH (08:02)
--- NOTE | 2016-04-19 08:16 | PN ---
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 (short form) - Note 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: ID Sitting up NAD afebrile Selected Entries 04/19/16 05:47 Temperature 98 F Pulse Rate 65 Respiratory 20 Rate Blood Pressure 118/72 Left shoulder VAC dressing no cellulitis draining Microbiology 04/10/16 19:53 Abscess Gram Stain - Final 04/10/16 19:53 Abscess Wound Culture - Final Eubacterium Aerofaciens Peptostrep Asaccharolyticus 04/10/16 11:50 Back Gram Stain - Final 04/10/16 11:50 Back Wound Culture - Final Anaerobic Cocci Lactobacillus Species Laboratory Tests 04/18/16 06:00 WBC 8.4 Hgb 8.2 L Hct 24.9 L Plt Count 243 Assessment Anaerobic back abscess with VAC dressing Plan Discharge planning on Augmentin as suggested Kris MOSQUERA Problem List - Problems (1) Abscess Code(s): L02.91 - CUTANEOUS ABSCESS, UNSPECIFIED (2) Leukocytosis Code(s): D72.829 - ELEVATED WHITE BLOOD CELL COUNT, UNSPECIFIED Qualifiers: Leukocytosis type: unspecified Qualified Code(s): D72.829 - Elevated white blood cell count, unspecified
[2016-04-19 08:17] LABS: MCH 28.8 pg (25.7-33.7); MCHC 32.8 g/dl (32.0-35.9); MEAN CELL VOLUME 87.8 fl (80-96); MEAN PLT VOLUME 9.2 fl (7.5-11.1); PLATELET COUNT 254 K/MM3 (134-434); RDW 17.3 % (11.9-15.9); WHITE BLOOD COUNT 7.4 K/mm3 (4.0-10.0)
[2016-04-19 08:43] VITALS: BP 125/69; PULSE 71; TEMP 99.2
[2016-04-19] MEDS ORDERED: PT OWN MED DRAWER 7, Y5N ONE (09:16)
[2016-04-19] MEDS: FOLIC ACID 1 MG TABLET (FP) PO SCH (09:18)
[2016-04-19] MEDS: ZINC SULFATE 220 MG CAPSULE (FP) PO SCH (09:18)
[2016-04-19] MEDS: RANITIDINE HCL 150 MG TABLET (FP) PO SCH (09:18)
[2016-04-19] MEDS: AMIODARONE HCL 200 MG TABLET (FP) PO SCH (09:18)
[2016-04-19] MEDS: TORSEMIDE 20 MG TABLET (FP) PO SCH (09:18)
[2016-04-19] MEDS: MULTIVITAMINS (DAILY MVI) TABLET (FP) PO SCH (09:19)
[2016-04-19] MEDS: hydrALAZINE HCL 10 MG TABLET PO SCH (09:19)
[2016-04-19] MEDS: APIXABAN 5 MG TABLET PO SCH (09:19)
[2016-04-19] MEDS: METOPROLOL SUCCINATE 25 MG TAB.SR.24H (FP) PO SCH (09:19)
[2016-04-19] MEDS: BRIMONIDINE TARTRATE 0.2% OPHTHALMIC 5 ML BOTTLE OU SCH (09:19)
[2016-04-19] MEDS: ASCORBIC ACID 500 MG TABLET (FP) PO SCH (09:19)
[2016-04-19] MEDS: ISOSORBIDE DINITRATE 20 MG TABLET (FP) PO SCH (09:19)
[2016-04-19 09:27] LABS: CREATININE 2.9 mg/dL (0.7-1.3)
--- NOTE | 2016-04-19 11:10 | PN ---
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 (short form) - Note 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: No acute events overnight. Denies shortness of breath or chest pain. No fevers or chills. Intake & Output 04/16/16 04/17/16 04/18/16 04/19/16 23:59 23:59 23:59 23:59 Intake Total 0654 049 9473 Output Total 900 1050 850 300 Balance 369 -150 200 -300 Weight 225 lb 5 oz 228 lb 8 oz 224 lb 225 lb Last Vital Signs Temp Pulse Resp BP Pulse Ox 99.2 F 71 20 125/69 100 04/19/16 08:42 04/19/16 08:42 04/19/16 08:42 04/19/16 08:42 04/18/16 21:00 Gen: NAD Heart: RRR Lung: Few scattered basilar rhonchi Abd: soft, nontender Ext: no edema Laboratory Results - last 24 hr 04/18/16 04/18/16 04/19/16 12:41 22:06 06:15 WBC 7.4 RBC 2.80 L Hgb 8.1 L Hct 24.6 L MCV 87.8 MCHC 32.8 RDW 17.3 H Plt Count 254 MPV 9.2 PTT (Actin FS) Sodium Potassium Chloride Carbon Dioxide Anion Gap BUN Creatinine POC Glucometer 110 123 Random Glucose Calcium 04/19/16 04/19/16 04/19/16 06:15 06:15 06:44 WBC RBC Hgb Hct MCV MCHC RDW Plt Count MPV PTT (Actin FS) 32.3 Sodium 136 Potassium 4.3 Chloride 108 H Carbon Dioxide 16 L Anion Gap 12 BUN 56 H Creatinine 2.9 H POC Glucometer 92 Random Glucose 77 Calcium 8.0 L ASSESSMENT AND PLAN: Necrotic Shoulder Cutaneuous Abscess s/p debridement Sepsis improving Acute on Chronic Renal Failure Paroxysmal Atrial Flutter now in sinus LV Systolic Dysfunction CAD COPD HTN DM - VAC care per surgery - ABX per ID - PO as tolerated - D/C planning to SNF Dr Farrell
== END 2016-04-19 11:01 | DRG 854 ==
LOC: JER 10:08 → JERBED 14:44 → JICU 04-11 12:40 → J6S 04-14 17:00
PROVIDERS: ADMIT Family Medicine; ATTEND Family Medicine
PROC: 0X9 Anatomical Regions, Upper Extremities, Drainage (ICD-10-PCS; 2016-04-10)
PROC: 30233N1 Transfusion of Nonautologous Red Blood Cells into Peripheral Vein, Percutaneous Approach (ICD-10-PCS; 2016-04-11)
PROC: 0JB70ZZ Excision of Back Subcutaneous Tissue and Fascia, Open Approach (ICD-10-PCS; principal; 2016-04-11 11:00)
DX: A41.9 Sepsis, unspecified organism (principal); N17.9 Acute kidney failure, unspecified; I13.0 Hypertensive heart and chronic kidney disease with heart failure and stage 1 through stage 4 chronic kidney disease, or unspecified chronic kidney disease; I50.22 Chronic systolic (congestive) heart failure; I48.92 Unspecified atrial flutter; I42.8 Other cardiomyopathies; L02.212 Cutaneous abscess of back [any part, except buttock and flank]; I47.2 Ventricular tachycardia; J44.9 Chronic obstructive pulmonary disease, unspecified; E03.9 Hypothyroidism, unspecified; E87.5 Hyperkalemia; D64.9 Anemia, unspecified; E11.22 Type 2 diabetes mellitus with diabetic chronic kidney disease; N18.2 Chronic kidney disease, stage 2 (mild); E78.5 Hyperlipidemia, unspecified; E66.9 Obesity, unspecified; R26.81 Unsteadiness on feet; H40.9 Unspecified glaucoma; E83.51 Hypocalcemia; Z79.01 Long term (current) use of anticoagulants; I25.10 Atherosclerotic heart disease of native coronary artery without angina pectoris; Z68.33 Body mass index [BMI] 33.0-33.9, adult
CPT/HCPCS: 36415; 36430; 71010-TC; 71250-TC; 76775-TC; 76856-TC; 80048; 80053; 80076; 81003; 82272; 82436; 82570; 82607; 82728; 82746; 83010; 83540; 83550; 83615; 83735; 84100; 84133; 84300; 85025; 85027; 85610; 85651; 85730; 86140; 86850; 86900; 86901; 86922; 87040; 87070; 87076; 87077; 87086; 87205; 88304-TC; 93005; 93010; 93306-TC; 97116-GP; 97162-PG; 99285-25; G0463-25; G0480; J1644; P9058

== ENCOUNTER 2016-05-23 16:34 | Inpatient (IN) | payer OTHER, BC ==
[2016-05-23] MEDS ORDERED: PIPERACILLIN/TAZOB 3.375 GM/50 ML PRE-DOCKED IVPB ONE (17:21)
[2016-05-23] MEDS ORDERED: VANCOMYCIN 1,000 MG in DEXTROSE 5%-WATER - 250 ML IVPB ONE (17:21)
--- NOTE | 2016-05-23 17:27 | PDOC ---
History of Present Illness - General History Source: Patient, Alf Records, Old Records Exam Limitations: No Limitations <Pankaj Ferrer - Last Filed: 05/23/16 22:15> - General History Source: Patient, Alf Records, Old Records Exam Limitations: No Limitations - History of Present Illness Initial Comments: 05/23/16 18:35 The patient is a 76 year old male, with a significant past medical history of hypertension, hyperlipidemia, hypothyroidism, diabetes, CHF, COPD and chronic kidney disease, who presents to the emergency department via EMS from [facility] for evaluation secondary to abnormal blood work which was done earlier today (B1 of 86; creatinine of 3.95; white count of 26.1; 16% bandemia). Currently in the ED, the patient has no complaints. The patient is a poor historian. Allergies: None reported. Past Surgical History: None reported. Social History: Non smoker. Denies alcohol or drug use. PCP: Dr. Robert Colorado <Natalia Martinez - Last Filed: 05/23/16 22:22> - General Chief Complaint: Revisit, Lab Variance Stated Complaint: ABNORMAL LABS Time Seen by Provider: 05/23/16 17:08 Past History - Past Medical History Anemia: No Asthma: No Cancer: No Cardiac Disorders: No CVA: No COPD: No CHF: Yes Dementia: No Diabetes: Yes (NIDDM) Disorders: Yes (CHRONIC KIDNEY DISEASE) HTN: Yes Hypercholesterolemia: Yes Suicide Attempt (Hx): No Seizures: No Thyroid Disease: No - Psycho/Social/Smoking Cessation Hx Anxiety: No Suicidal Ideation: No Smoking History: Never smoked Have you smoked in the past 12 months: No Information on smoking cessation initiated: No Hx Alcohol Use: No Drug/Substance Use Hx: No Substance Use Type: None Hx Substance Use Treatment: No <Pankaj Ferrer - Last Filed: 05/23/16 22:15> <Natalia Martinez - Last Filed: 05/23/16 22:22> - Past Medical History Allergies/Adverse Reactions: Allergies Allergy/AdvReac Type Severity Reaction Status Date / Time No Known Allergies Allergy Verified 04/10/16 11:57 Home Medications: Ambulatory Orders Acetaminophen [Tylenol .Regular Strength -] 650 mg PO Q6H PRN #0 tablet Albuterol 2.5/Ipratropium 0.5 [Duoneb -] 1 amp NEB Q6H PRN #0 amp 04/18/16 Apixaban [Eliquis -] 5 mg PO BID tablet 04/18/16 Ascorbic Acid [Vitamin C -] 500 mg PO DAILY tablet 04/18/16 Brimonidine Tartrate [Alphagan 0.2% -] 1 drop OU BID drops 04/18/16 Folic Acid - 1 mg PO DAILY tablet 04/18/16 Hydralazine HCl [Apresoline -] 10 mg PO BID tablet 04/18/16 Insulin Sliding Scale [Novolog Vial Sliding Scale -] 1 vial SQ ACHS units 04/18 Isosorbide Dinitrate [Isordil -] 20 mg PO BIDISORDIL tablet 04/18/16 Levothyroxine [Synthroid -] 50 mcg PO DAILY@0700 tablet 04/18/16 Metoprolol Succinate [Toprol XL -] 25 mg PO BID tab.sr.24h 04/18/16 Multivitamins [Multivit ([facility] Formulary)] 1 tab PO DAILY tab 04/18/16 Ranitidine [Zantac -] 150 mg PO BID tablet 04/18/16 Torsemide [Demadex -] 40 mg PO DAILY tablet 04/18/16 Zinc Sulfate [Orazinc -] 220 mg PO DAILY capsule 04/18/16 Amiodarone HCl [Cordarone -] 200 mg PO DAILY 05/23/16 Review of Systems - Review of Systems Able to Perform ROS?: Yes Comments:: 05/23/16 18:33 GENERAL/CONSTITUTIONAL: No fever or chills. No weakness. HEAD, EYES, EARS, NOSE AND THROAT: No change in vision. No ear pain or discharge. No sore throat. CARDIOVASCULAR: No chest pain or shortness of breath. RESPIRATORY: No cough, wheezing, or hemoptysis. GASTROINTESTINAL: No nausea, vomiting, diarrhea or constipation. GENITOURINARY: No dysuria, frequency, or change in urination. MUSCULOSKELETAL: No joint or muscle swelling or pain. No neck or back pain. SKIN: No rash. NEUROLOGIC: No headache, vertigo, loss of consciousness, or change in strength/ sensation. ENDOCRINE: No increased thirst. No abnormal weight change. HEMATOLOGIC/LYMPHATIC: +Abnormal blood work. No anemia, easy bleeding, or history of blood clots. ALLERGIC/IMMUNOLOGIC: No hives or skin allergy. <Natalia Martinez - Last Filed: 05/23/16 22:22> *Physical Exam - Vital Signs Last Vital Signs Temp Pulse Resp BP Pulse Ox 98 F 65 20 108/70 94 L 05/23/16 16:47 05/23/16 16:47 05/23/16 16:47 05/23/16 16:47 05/23/16 16:47 <Pankaj Ferrer - Last Filed: 05/23/16 22:15> - Vital Signs Last Vital Signs Temp Pulse Resp BP Pulse Ox 98 F 65 20 108/70 94 L 05/23/16 16:47 05/23/16 16:47 05/23/16 16:47 05/23/16 16:47 05/23/16 16:47 - Physical Exam Comments: 05/23/16 18:32 GENERAL: Awake, alert, and fully oriented, in no acute distress. HEAD: No signs of trauma. EYES: PERRLA, EOMI, sclera anicteric, conjunctiva clear. ENT: Auricles normal inspection, hearing grossly normal, nares patent, oropharynx clear without exudates. Moist mucosa. NECK: Normal ROM, supple, no lymphadenopathy, JVD, or masses. LUNGS: Breath sounds equal, clear to auscultation bilaterally. No wheezes, and no crackles. HEART: Regular rate and rhythm, normal S1 and S2, no murmurs, rubs or gallops. ABDOMEN: Soft, nontender, normoactive bowel sounds. No guarding, no rebound. No masses. EXTREMITIES: Bilateral 2+ pitting edema. Bilateral lower extremities are tender to palpation. Normal range of motion. No clubbing or cyanosis. No cords or erythema. NEUROLOGICAL: Cranial nerves II through XII intact. Normal speech, gait deferred. SKIN: Right lower extremity, there is a small wound approximately 0.25 cm x 0.25 cm. Several 0.25 cm wounds to the right anterior limb. Left lower extremity , there is an abrasion in addition to multiple draining wounds. <Natalia Martinez - Last Filed: 05/23/16 22:22> Heart Score/ECG Review #1 ECG reviewed & interpreted by me at: 17:10 05/23/16 17:28 NSR 64, nonspecific intraventricular conduction delay, TWI V3-V6, T wave flat II , III, aVF, normal axis, normal intervals, QTC 495 msec <Pankaj Ferrer - Last Filed: 05/23/16 22:15> ED Treatment Course - LABORATORY CBC & Chemistry Diagram: 05/23/16 17:30 05/23/16 21:20 - RADIOLOGY Radiology Studies Ordered: Category Date Time Status CHEST X-RAY PORTABLE* [RAD] Stat Radiology 05/23/16 17:20 Ordered <Pankaj Ferrer - Last Filed: 05/23/16 22:15> - LABORATORY CBC & Chemistry Diagram: 05/23/16 17:30 05/23/16 21:20 - ADDITIONAL ORDERS Additional order review: 05/23/16 17:30 RBC 4.10 D MCV 91.6 MCHC 31.7 L RDW 19.5 H D MPV 10.1 Neutrophils % Y Lymphocytes % Y - Medications Given in the ED: ED Medications Discontinued Medications Generic Name Dose Route Start Last Admin Trade Name Freq PRN Reason Stop Dose Admin Piperacillin Sod/Tazobactam Sod 3.375 gm 05/23/16 17:21 05/23/16 18:03 Zosyn 3.375gm Ivpb (Pre-Docked) IVPB 05/23/16 17:22 3.375 gm ONCE ONE Administration Protocol <Natalia Martinez - Last Filed: 05/23/16 22:22> Medical Decision Making - Medical Decision Making 05/23/16 17:23 A portion of this note was documented by scribe services under my direction. I have reviewed the details of the note, within reason, and agree with the documentation with the following case summary and management plan written by me. Patient treated in the ED. Nursing notes are reviewed and incorporated into the medical decision-making. Vital signs reviewed. Peripheral IV access obtained by the nurse, laboratory studies are drawn and sent, reviewed and interpreted by myself. Vital Signs Temp Pulse Resp BP Pulse Ox 98 F 65 20 108/70 94 L 05/23/16 16:47 05/23/16 16:47 05/23/16 16:47 05/23/16 16:47 05/23/16 16:47 76 year old male with past medical history COPD, hypertension, hyperlipidemia, hypothyroidism, CHF, diabetes, chronic kidney disease presents to the emergency department for abnormal labs. The patient's from [facility]. He currently has no complaint. He had some blood work performed today. It demonstrated a B1 of 86 and a creatinine of 3.95. He also has a white count of 26.1 and 16% bandemia. Given these findings, we'll initiate adult sepsis protocol. We'll start vancomycin and Zosyn given the white count and bandemia. We'll admit the patient to the hospital. We'll attempt to identify a source. The patient's lower extremity appears mildly erythematous and tender. Differential includes cellulitis. 05/23/16 22:17 Chest xray reviewed. CBC, BMP 05/23/16 17:30 05/23/16 21:20 CMP Sodium 140 mmol/L (136-145) 05/23/16 21:20 Potassium 4.4 mmol/L (3.5-5.1) 05/23/16 21:20 Chloride 108 mmol/L (98-107) H 05/23/16 21:20 Carbon Dioxide 19 mmol/L (21-32) L 05/23/16 21:20 Anion Gap 13 (8-16) 05/23/16 21:20 BUN 91 mg/dL (7-18) H D 05/23/16 21:20 Creatinine 3.9 mg/dL (0.7-1.3) H D 05/23/16 21:20 Creat Clearance w eGFR 15.11 (>60) 05/23/16 21:20 Random Glucose 139 mg/dL (74-106) H D 05/23/16 21:20 Lactic Acid 2.625 mmol/L (0.4-2.0) H* 05/23/16 21:20 Calcium 8.3 mg/dL (8.5-10.1) L 05/23/16 21:20 Magnesium Cancelled 05/23/16 19:14 Total Bilirubin 1.2 mg/dL (0.2-1.0) H D 05/23/16 21:20 AST 14 U/L (15-37) L 05/23/16 21:20 ALT 32 U/L (12-78) D 05/23/16 21:20 Alkaline Phosphatase 251 U/L (45-117) H D 05/23/16 21:20 Creatine Kinase 61 IU/L (39-308) 05/23/16 21:20 Troponin I 0.25 ng/ml (0.00-0.05) H D 05/23/16 21:20 Total Protein 5.8 g/dl (6.4-8.2) L 05/23/16 21:20 Albumin 2.0 g/dl (3.4-5.0) L 05/23/16 21:20 Lactic acid 1: 2.8 2: 2.6 INR, PTT INR 3.96 (0.82-1.09) H D 05/23/16 17:30 Urine Test Results Urine Color Yellow 05/23/16 17:30 Urine Appearance Clear 05/23/16 17:30 Urine pH 5.0 (5.0-8.0) 05/23/16 17:30 Ur Specific [place] 1.010 (1.001-1.035) 05/23/16 17:30 Urine Protein Negative (NEGATIVE) 05/23/16 17:30 Urine Glucose (UA) Negative (NEGATIVE) 05/23/16 17:30 Urine Ketones Negative (NEGATIVE) 05/23/16 17:30 Urine Blood 1+ (NEGATIVE) H 05/23/16 17:30 Urine Nitrite Negative (NEGATIVE) 05/23/16 17:30 Urine Bilirubin Negative (NEGATIVE) 05/23/16 17:30 Ur Leukocyte Esterase Negative (NEGATIVE) 05/23/16 17:30 Urine RBC 9 /hpf (0-3) 05/23/16 17:30 Urine WBC 1 /hpf (3-5) 05/23/16 17:30 Urine Mucus Rare 05/23/16 17:30 The patient has been reassessed and otherwise appears unremarkable. He is watching television and speaking in full sentences. He denies any pain at this time. Given that the patient has elevated white blood cell count with an elevated bandemia, we'll need to admit the patient for IV antibiotics. Patient has a mildly elevated troponin which is likely from demand ischemia. We'll need to trend troponins and observe. At this time, we'll admit the patient to telemetry admission. Case was discussed with Dr. Shoemaker who accepts patient under Dr. Dee. Case discussed in detail with admitting physician including history, physical exam and ancillary studies. Admitting physician has assumed care for the patient, will follow all pending diagnostics and will complete the evaluation and treatment. <Pankaj Ferrer - Last Filed: 05/23/16 22:15> - Medical Decision Making 05/23/16 18:36 EXAM: RAD/CHEST X-RAY PORTABLE Reviewed By: Dr. Deena Franco IMPRESSION: No significant interval change or acute lung disease is present. Call placed to Dr. Lewis at 22:04. Referred to answering service , awaiting callback. Dr. Shoemaker returned call at 22:15, case discussed. <Natalia Martinez - Last Filed: 05/23/16 22:22> *DC/Admit/Observation/Transfer - Discharge Dispostion Admit: Yes <Pankaj Ferrer - Last Filed: 05/23/16 22:15> - Attestations Scribe Attestion: 05/23/16 18:20 Documentation prepared by Natalia Martinez, acting as medical concierge for Pankaj Ferrer MD. <Natalia Martinez - Last Filed: 05/23/16 22:22> Diagnosis at time of Disposition: Sepsis Qualifiers: Sepsis type: sepsis due to unspecified organism Qualified Code(s): A41.9 - Sepsis, unspecified organism - Referrals Referrals: Robert Colorado [Primary Care Provider] -
[2016-05-23] MEDS ORDERED: PIPERACILLIN/TAZOB 3.375 GM 50 ML IVPB ONE (18:03)
[2016-05-23] MEDS ORDERED: VANCOMYCIN 1 GRAM (PRE-DOCKED) 250 ML IVPB ONE (18:03)
[2016-05-23 18:07] LABS: MCH 29.1 pg (25.7-33.7); MCHC 31.7 g/dl (32.0-35.9); MEAN CELL VOLUME 91.6 fl (80-96); MEAN PLT VOLUME 10.1 fl (7.5-11.1); PLATELET COUNT 238 K/MM3 (134-434); RDW 19.5 % (11.9-15.9); WHITE BLOOD COUNT 25.6 K/mm3 (4.0-10.0)
[2016-05-23 18:43] LABS: URINE APPEARANCE CLEAR; URINE BILIRUBIN NEGATIVE (NEGATIVE); URINE COLOR YELLOW; URINE GLUCOSE (UA) NEGATIVE (NEGATIVE); URINE KETONE NEGATIVE (NEGATIVE); URINE LEUK ESTERASE NEGATIVE (NEGATIVE); URINE NITRITE NEGATIVE (NEGATIVE); URINE PROTEIN NEGATIVE (NEGATIVE); URINE UROBILINOGEN NEGATIVE E.U./dl (0.2-1.0)
[2016-05-23 18:46] LABS: URINE BLOOD 1+ (NEGATIVE)
[2016-05-23 18:54] LABS: URINE HYALINE CAST 6 /lpf; URINE MUCUS RARE; URINE RBC 9 /hpf (0-3); URINE WBC 1 /hpf (3-5)
[2016-05-23 19:02] LABS: INR 3.96 (0.82-1.09); PROTHROMBIN TIME (PATIENT) 44.8 SEC (9.98-11.88)
[2016-05-23 19:38] LABS: PLATELET ESTIMATE ADEQUATE (NORMAL)
[2016-05-23 21:55] LABS: BILIRUBIN,TOTAL 1.2 mg/dL (0.2-1.0); CALCIUM 8.3 mg/dL (8.5-10.1); CREATININE 3.9 mg/dL (0.7-1.3); TOT PROT 5.8 g/dl (6.4-8.2)
[2016-05-23 21:57] LABS: TROPONIN I 0.25 ng/ml (0.00-0.05)
[2016-05-23] MEDS ORDERED: SODIUM CHLORIDE 500 ML IV STA (22:07)
[2016-05-23] MEDS ORDERED: ALBUTEROL SO4 2.5/IPRATROPIUM 0.5 INH SOL 3 ML VIAL.NEB. NEB PRN (22:34)
[2016-05-24 02:35] VITALS: BMI 32.8
[2016-05-24] MEDS: LEVOTHYROXINE NA 50 MCG TABLET (FP) PO SCH (06:43)
[2016-05-24] MEDS: INSULIN SLIDING SCALE (NOVOLOG) 1 VIAL SQ SCH ×4 (06:44→22:15)
[2016-05-24 09:08] LABS: BASOPHIL 0.2 % (0-2.0); EOSINOPHIL 0.1 % (0-4.5); MCH 29.1 pg (25.7-33.7); MCHC 31.8 g/dl (32.0-35.9); MEAN CELL VOLUME 91.4 fl (80-96); NEUTROPHILS 92.8 % (42.8-82.8); PLATELET COUNT 173 K/MM3 (134-434); RDW 19.7 % (11.9-15.9); WHITE BLOOD COUNT 19.1 K/mm3 (4.0-10.0)
--- NOTE | 2016-05-24 09:28 | CON.CARD ---
Cardiology Consult (text) - Consultation Consultation Note: cc: sent from or for case and elevated wbcs hpi: 75 m hx non obs cad (cath 10/2014: only mild disease RCA), remote MD ( mentioned in prior charts, no further details, pt unclear of hx), syst chf (NICM , mild dec lvef), htn, copd, dm, ckd (cr 2's), aflutter on eliquis, recent admit for subcutaneous abscess/sepsis/CASE sent to SNF now sent from or for case and elevated wbcs. Pt has no complaints. No cp, sob ,palps, dizzy, loc, pnd, orthopnea. LE edema has been mild, stable. Sees me for cardiology. pmh: per hpi psh: I+D abscess social: no tob fam: no premature cad, scd ros: per hpi; no nvd, fever, cough, chau, vision changes, muscle pain, nasal congestion, hematuria meds: Home Medications Medication Instructions Recorded Acetaminophen [Tylenol .Regular 650 mg PO Q6H PRN #0 tablet 04/18/16 Strength -] Albuterol 2.5/Ipratropium 0.5 1 amp NEB Q6H PRN #0 amp 04/18/16 [Duoneb -] Apixaban [Eliquis -] 5 mg PO BID tablet 04/18/16 Ascorbic Acid [Vitamin C -] 500 mg PO DAILY tablet 04/18/16 Brimonidine Tartrate [Alphagan 1 drop OU BID drops 04/18/16 0.2% -] Folic Acid - 1 mg PO DAILY tablet 04/18/16 Hydralazine HCl [Apresoline -] 10 mg PO BID tablet 04/18/16 Insulin Sliding Scale [Novolog 1 vial SQ ACHS units 04/18/16 Vial Sliding Scale -] Isosorbide Dinitrate [Isordil -] 20 mg PO BIDISORDIL tablet 04/18/16 Levothyroxine [Synthroid -] 50 mcg PO DAILY@0700 tablet 04/18/16 Metoprolol Succinate [Toprol XL -] 25 mg PO BID tab.sr.24h 04/18/16 Multivitamins [Multivit ([facility] 1 tab PO DAILY tab 04/18/16 Formulary)] Ranitidine [Zantac -] 150 mg PO BID tablet 04/18/16 Torsemide [Demadex -] 40 mg PO DAILY tablet 04/18/16 Zinc Sulfate [Orazinc -] 220 mg PO DAILY capsule 04/18/16 Amiodarone HCl [Cordarone -] 200 mg PO DAILY 05/23/16 pe: Vital Signs Period Temp Pulse Resp BP Sys/Hubbard Pulse Ox Last 24 Hr 97.7 F-98.1 F 62-66 16-20 105-113/53-73 94-100 nad, no jvd rrr s1s2 no mrg cta bl nl eff aaox3 trace edema, no c/c abd nt nd pos bs pos dp pt no jaundice diaphoresis 05/23/16 05/23/16 05/23/16 17:30 17:30 17:30 WBC 25.6 H D RBC 4.10 D Hgb 11.9 D Hct 37.6 D MCV 91.6 MCHC 31.7 L RDW 19.5 H D Plt Count 238 Neutrophils % 82.0 Lymphocytes % 2.0 L D Monocytes % 2.0 L D INR 3.96 H D Sodium Cancelled Potassium Cancelled Chloride Cancelled Carbon Dioxide Cancelled Anion Gap Cancelled BUN Cancelled Creatinine Cancelled Blood Type Antibody Screen 05/23/16 05/23/16 05/23/16 17:30 19:14 20:00 WBC RBC Hgb Hct MCV MCHC RDW Plt Count Neutrophils % Lymphocytes % Monocytes % INR Sodium Cancelled Cancelled Potassium Cancelled Cancelled Chloride Cancelled Cancelled Carbon Dioxide Cancelled Cancelled Anion Gap Cancelled Cancelled BUN Cancelled Cancelled Creatinine Cancelled Cancelled Blood Type A POSITIVE Antibody Screen Negative 05/23/16 21:20 WBC RBC Hgb Hct MCV MCHC RDW Plt Count Neutrophils % Lymphocytes % Monocytes % INR Sodium 140 Potassium 4.4 Chloride 108 H Carbon Dioxide 19 L Anion Gap 13 BUN 91 H D Creatinine 3.9 H D Blood Type Antibody Screen 05/23/16 17:30 Urine Culture - Pending Urine - Urine Clean Catch 05/23/16 17:30 Blood Culture - Pending Blood - Peripheral Venous 05/23/16 17:30 Blood Culture - Pending Blood - Peripheral Venous mibi 10/2014: no ischemia, sev reduced lvef echo 10/2014 ([facility] [place]): definity used. mild lve, lvef 45%, nl rv, mild AR, sev lae , nl rvsp echo 03/2016: severely decreased LV fn (global), nl rv. 1+ AR/MR. Mod MAC. 1+ TR. rvsp 30-40 EKG 05/23/16: sr, nl intervals, lat twis, no st changes, similar to priors cxr: clear lungs tele: SR with occ pvcs a/p: 75 m hx non obs cad (cath 10/2014: only mild disease RCA), remote MD ( mentioned in prior charts, no further details, pt unclear of hx), syst chf (NICM , mild dec lvef), htn, copd, dm, ckd (cr 2's), aflutter on eliquis, recent admit for subcutaneous abscess/sepsis/CASE sent to [facility] now sent from or for case and elevated wbcs. aflutter - in sinus here on tele - cont amiodarone and metoprolol - on eliquis, hgb stable. NICM, chronic syst chf: - rpt echo 03/2016 with worsened LV function. Follow up with cardiology as outpatient for evaluation of etiology of worsened LV function once acute issues resolved - con't regimen of metoprolol, hydralazine, isordil - currently vol stable at baseline wt near low 220s lbs and having case likely from sepsis so will hold home torsemide 40 qd for now until cr returns to baseline (approx 3) - not on NORMAN/ARB previously, due to advanced CKD and/or labile cr acute on chronic ckd - currently vol stable at baseline wt near low 220s lbs and having case likely from sepsis so will hold home torsemide 40 qd for now until cr returns to baseline (approx 3) anemia: -stable here -seen by GI in past: has h/o gastric ulcers and diverticular bleeding in past, but no melena and guaiac neg here--i.e. no active GIB suspected HTN -stable on current meds non-obstructive CAD - Not on statin - on AC subcutaneous abscess, s/p I and D 04/11: - now returns with elevated wbc, possible sepsis - abx per ID positive trop: -trop in borderline range consistent with his prior baselines and with nl ck and no sig ecg changes. Not consistent with acs. Trend for now. Monitor on tele.
--- NOTE | 2016-05-24 09:29 | HP ---
Admitting History and Physical - Primary Care Physician PCP: Davin Dee - Admission Chief Complaint: SEPSIS History Source: Medical Record - Past Medical History Cardiovascular: Yes: CHF, HTN, Other (flutter) Pulmonary: Yes: COPD Gastrointestinal: Yes: Diverticulosis, Peptic Ulcer Disease Renal/: Yes: Renal Inusuff Endocrine: Yes: Diabetes Mellitus - Past Surgical History Past Surgical History: Yes: Colonoscopy, Upper Endoscopy - Smoking History Smoking history: Never smoked Have you smoked in the past 12 months: No - Alcohol/Substance Use Hx Alcohol Use: No - Social History Occupation: worked for the [employer] Home Medications - Allergies Allergies/Adverse Reactions: Allergies Allergy/AdvReac Type Severity Reaction Status Date / Time No Known Allergies Allergy Verified 05/23/16 23:31 - Home Medications Home Medications: Ambulatory Orders Acetaminophen [Tylenol .Regular Strength -] 650 mg PO Q6H PRN #0 tablet Albuterol 2.5/Ipratropium 0.5 [Duoneb -] 1 amp NEB Q6H PRN #0 amp 04/18/16 Apixaban [Eliquis -] 5 mg PO BID tablet 04/18/16 Ascorbic Acid [Vitamin C -] 500 mg PO DAILY tablet 04/18/16 Brimonidine Tartrate [Alphagan 0.2% -] 1 drop OU BID drops 04/18/16 Folic Acid - 1 mg PO DAILY tablet 04/18/16 Hydralazine HCl [Apresoline -] 10 mg PO BID tablet 04/18/16 Insulin Sliding Scale [Novolog Vial Sliding Scale -] 1 vial SQ ACHS units 04/18 Isosorbide Dinitrate [Isordil -] 20 mg PO BIDISORDIL tablet 04/18/16 Levothyroxine [Synthroid -] 50 mcg PO DAILY@0700 tablet 04/18/16 Metoprolol Succinate [Toprol XL -] 25 mg PO BID tab.sr.24h 04/18/16 Multivitamins [Multivit ([facility] Formulary)] 1 tab PO DAILY tab 04/18/16 Ranitidine [Zantac -] 150 mg PO BID tablet 04/18/16 Torsemide [Demadex -] 40 mg PO DAILY tablet 04/18/16 Zinc Sulfate [Orazinc -] 220 mg PO DAILY capsule 04/18/16 Amiodarone HCl [Cordarone -] 200 mg PO DAILY 05/23/16 Family Disease History - Family Disease History Family Disease History: Diabetes: Father Review of Systems - Review of Systems Constitutional: denies: Chills, Fever Cardiovascular: denies: Chest Pain Respiratory: denies: SOB Gastrointestinal: denies: Abdominal Pain Physical Examination Vital Signs: Vital Signs Temperature 97.7 F 05/24/16 06:00 Pulse Rate 63 05/24/16 06:00 Respiratory Rate 18 05/24/16 06:00 Blood Pressure 105/63 05/24/16 06:00 O2 Sat by Pulse Oximetry (%) 97 05/24/16 02:02 Constitutional: Yes: Calm Eyes: Yes: PERRL HENT: Yes: Normocephalic Cardiovascular: Yes: WNL Respiratory: Yes: WNL Gastrointestinal: Yes: WNL, Distention Edema: Yes Imaging - Results Chest X-ray: Report Reviewed Problem List - Problems (1) Sepsis Code(s): A41.9 - SEPSIS, UNSPECIFIED ORGANISM Qualifiers: Sepsis type: sepsis due to unspecified organism Qualified Code(s): A41.9 - Sepsis, unspecified organism (2) Acute on chronic renal failure Code(s): N17.9 - ACUTE KIDNEY FAILURE, UNSPECIFIED N18.9 - CHRONIC KIDNEY DISEASE, UNSPECIFIED (3) Atrial flutter Code(s): I48.92 - UNSPECIFIED ATRIAL FLUTTER (4) CKD (chronic kidney disease), stage II Code(s): N18.2 - CHRONIC KIDNEY DISEASE, STAGE 2 (MILD) (5) COPD (chronic obstructive pulmonary disease) Code(s): J44.9 - CHRONIC OBSTRUCTIVE PULMONARY DISEASE, UNSPECIFIED (6) Congestive heart failure (CHF) Code(s): I50.9 - HEART FAILURE, UNSPECIFIED Qualifiers: Congestive heart failure type: systolic Congestive heart failure chronicity: chronic Qualified Code(s): I50.22 - Chronic systolic (congestive ) heart failure (7) DMII (diabetes mellitus, type 2) Code(s): E11.9 - TYPE 2 DIABETES MELLITUS WITHOUT COMPLICATIONS Qualifiers: Diabetes mellitus complication detail: with other kidney complication (8) HTN (hypertension) Code(s): I10 - ESSENTIAL (PRIMARY) HYPERTENSION Qualifiers: Hypertension type: essential hypertension Qualified Code(s): I10 - Essential (primary) hypertension (9) Leukocytosis Code(s): D72.829 - ELEVATED WHITE BLOOD CELL COUNT, UNSPECIFIED Qualifiers: Leukocytosis type: unspecified Qualified Code(s): D72.829 - Elevated white blood cell count, unspecified Assessment/Plan The patient is a 76 year old male, with a significant past medical history of hypertension, hyperlipidemia, hypothyroidism, diabetes, CHF, COPD and chronic kidney disease, who presents to the emergency department via EMS from [facility] for evaluation secondary to abnormal blood work which was done earlier today (B1 of 86; creatinine of 3.95; white count of 26.1; 16% bandemia). Currently in the ED, the patient has no complaints. The patient is a poor historian. Allergies: None reported. Past Surgical History: None reported. Social History: Non smoker. Denies alcohol or drug use. PCP: Dr. Robert Colorado (1) Sepsis? Code(s): A41.9 - SEPSIS, UNSPECIFIED ORGANISM Qualifiers: Sepsis type: sepsis due to unspecified organism Qualified Code(s): A41.9 - Sepsis, unspecified organism NO FEVER F/U CULTURES CXr NAD ID CONSULTED LACTIC ACID 2.6 (2) Acute on chronic renal failure Code(s): N17.9 - ACUTE KIDNEY FAILURE, UNSPECIFIED N18.9 - CHRONIC KIDNEY DISEASE, UNSPECIFIED RENAL CONSULTED Cr 3.9 (3) Atrial flutter Code(s): I48.92 - UNSPECIFIED ATRIAL FLUTTER TROP NEG x 1 -> F/U CARDIO ON CASE NOAC (4) CKD (chronic kidney disease), stage II Code(s): N18.2 - CHRONIC KIDNEY DISEASE, STAGE 2 (MILD) (5) COPD (chronic obstructive pulmonary disease) Code(s): J44.9 - CHRONIC OBSTRUCTIVE PULMONARY DISEASE, UNSPECIFIED DUONEB PRN (6) Congestive heart failure (CHF) Code(s): I50.9 - HEART FAILURE, UNSPECIFIED Qualifiers: Congestive heart failure type: systolic Congestive heart failure chronicity: chronic Qualified Code(s): I50.22 - Chronic systolic (congestive ) heart failure (7) DMII (diabetes mellitus, type 2) Code(s): E11.9 - TYPE 2 DIABETES MELLITUS WITHOUT COMPLICATIONS Qualifiers: Diabetes mellitus complication detail: with other kidney complication BGM ISS (8) HTN (hypertension) Code(s): I10 - ESSENTIAL (PRIMARY) HYPERTENSION Qualifiers: Hypertension type: essential hypertension Qualified Code(s): I10 - Essential (primary) hypertension (9) Leukocytosis Code(s): D72.829 - ELEVATED WHITE BLOOD CELL COUNT, UNSPECIFIED Qualifiers: Leukocytosis type: unspecified Qualified Code(s): D72.829 - Elevated white blood cell count, unspecified [employer]CHARGE [employer]
--- NOTE | 2016-05-24 09:44 | PN ---
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 (short form) - Note 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: ID consult dictated imp/reccd sepsis bilateral lower extremity cellulitis- right greater then left lactic acidosis with leukocytosis case/ckd positive troponin history of shoulder abscess received vancomycin in ED would check level and redose continue zosyn adjusted for CASE/CKD f/u cultures duplex RLE
[2016-05-24 09:51] LABS: ALBUMIN 1.9 g/dl (3.4-5.0); BILIRUBIN,TOTAL 1.3 mg/dL (0.2-1.0); CALCIUM 8.6 mg/dL (8.5-10.1); CREATININE 3.7 mg/dL (0.7-1.3); THYROID STIMULATING HORMONE 0.6 uIU/ml (0.358-3.74); TOT PROT 5.7 g/dl (6.4-8.2); TROPONIN I 0.26 ng/ml (0.00-0.05)
[2016-05-24] MEDS ORDERED: TORSEMIDE 20 MG TABLET (FP) PO SCH (10:00)
[2016-05-24] MEDS: ASCORBIC ACID 500 MG TABLET (FP) PO SCH (10:18)
[2016-05-24] MEDS: RANITIDINE HCL 150 MG TABLET (FP) PO SCH ×2 (10:19→22:02)
[2016-05-24] MEDS: AMIODARONE HCL 200 MG TABLET (FP) PO SCH (10:19)
[2016-05-24] MEDS: METOPROLOL SUCCINATE 25 MG TAB.SR.24H (FP) PO SCH ×2 (10:19→22:15)
[2016-05-24] MEDS: hydrALAZINE HCL 10 MG TABLET PO SCH ×2 (10:19→22:02)
[2016-05-24] MEDS: ISOSORBIDE DINITRATE 20 MG TABLET (FP) PO SCH ×2 (10:19→17:44)
[2016-05-24] MEDS: FOLIC ACID 1 MG TABLET (FP) PO SCH (10:20)
[2016-05-24] MEDS: MULTIVITAMINS (DAILY MVI) TABLET (FP) PO SCH (10:20)
[2016-05-24] MEDS: APIXABAN 5 MG TABLET PO SCH ×2 (10:27→22:02)
[2016-05-24] MEDS: PIPERACILLIN/TAZOB 2.25 GM 50 ML IVPB SCH ×2 (10:44→17:44)
--- NOTE | 2016-05-24 12:23 | CONSULT ---
Consult Consult Specialty:: hematology Reason for Consultation:: Leukocytosis - History of Present Illness Chief Complaint: Patient referred in from [place] due to incidentally noted neutrophilia. History of Present Illness: Poor historian - currently without complaints. Noted that he was admitted in March with SQ abscess on back, treated with Abics - at that time had similat neutrophilia, which had resolved by time of discharge. - History Source History Provided By: Medical Record Limitations to Obtaining History: Poor Historian - Past Medical History Cardio/Vascular: Yes: CHF, HTN, Other (flutter) Pulmonary: Yes: COPD Gastrointestinal: Yes: Diverticulosis, Peptic Ulcer Disease Renal/: Yes: Renal Inusuff Endocrine: Yes: Diabetes Mellitus Additional Medical History: glaucoma - Past Surgical History Past Surgical History: Yes: Colonoscopy, Upper Endoscopy - Alcohol/Substance Use Hx Alcohol Use: No - Smoking History Smoking history: Never smoked Have you smoked in the past 12 months: No - Social History Usual Living Arrangement: [facility] Occupation: worked for the [employer] Home Medications - Allergies Allergies/Adverse Reactions: Allergies Allergy/AdvReac Type Severity Reaction Status Date / Time No Known Allergies Allergy Verified 05/23/16 23:31 - Home Medications Home Medications: Ambulatory Orders Acetaminophen [Tylenol .Regular Strength -] 650 mg PO Q6H PRN #0 tablet Albuterol 2.5/Ipratropium 0.5 [Duoneb -] 1 amp NEB Q6H PRN #0 amp 04/18/16 Apixaban [Eliquis -] 5 mg PO BID tablet 04/18/16 Ascorbic Acid [Vitamin C -] 500 mg PO DAILY tablet 04/18/16 Brimonidine Tartrate [Alphagan 0.2% -] 1 drop OU BID drops 04/18/16 Folic Acid - 1 mg PO DAILY tablet 04/18/16 Hydralazine HCl [Apresoline -] 10 mg PO BID tablet 04/18/16 Insulin Sliding Scale [Novolog Vial Sliding Scale -] 1 vial SQ ACHS units 04/18 Isosorbide Dinitrate [Isordil -] 20 mg PO BIDISORDIL tablet 04/18/16 Levothyroxine [Synthroid -] 50 mcg PO DAILY@0700 tablet 04/18/16 Metoprolol Succinate [Toprol XL -] 25 mg PO BID tab.sr.24h 04/18/16 Multivitamins [Multivit ([facility] Formulary)] 1 tab PO DAILY tab 04/18/16 Ranitidine [Zantac -] 150 mg PO BID tablet 04/18/16 Torsemide [Demadex -] 40 mg PO DAILY tablet 04/18/16 Zinc Sulfate [Orazinc -] 220 mg PO DAILY capsule 04/18/16 Amiodarone HCl [Cordarone -] 200 mg PO DAILY 05/23/16 Family Disease History - Family Disease History Family Disease History: Diabetes: Father Physical Exam Vital Signs: Vital Signs Temperature 97.7 F 05/24/16 06:00 Pulse Rate 63 05/24/16 06:00 Respiratory Rate 18 05/24/16 06:00 Blood Pressure 105/63 05/24/16 06:00 O2 Sat by Pulse Oximetry (%) 97 05/24/16 02:02 Constitutional: Yes: Well Nourished, No Distress Eyes: Yes: WNL Neck: Yes: Supple, Trachea Midline. No: Thyromegaly Cardiovascular: Yes: WNL, Regular Rate and Rhythm, S1, S2 Respiratory: Yes: WNL, Regular Gastrointestinal: Yes: WNL, Normal Bowel Sounds, Soft Neurological: Yes: WNL, Alert (Bilateral pedal edema - dressed) Labs: CBC, BMP 05/24/16 06:00 05/24/16 06:00 Assessment/Plan Patient admitted for unexplained neutrophilia, developed acutely within last few weeks. Secondary, likely to sepsis - ? cellulitis LEs, vs recurrence of soft tissues sepsis back (recent abscess). No suspicion that this is a primary hematological issue. Would expect resolution of neutrophilia with successful management of infection. Reconsult hematology is neutrophilia persists, or other unexplained abnormalities in cell counts noted.
--- NOTE | 2016-05-24 14:47 | EKG ---
Test Reason : Blood Pressure : / mmHG Vent. Rate : 064 BPM Atrial Rate : 064 BPM P-R Int : 192 ms QRS Dur : 118 ms QT Int : 480 ms P-R-T Axes : 073 -01 230 degrees QTc Int : 495 ms NORMAL SINUS RHYTHM NON-SPECIFIC INTRA-VENTRICULAR CONDUCTION DELAY PROLONGED QT ABNORMAL ECG WHEN COMPARED WITH ECG OF 10-APR-2016 13:16, PREMATURE VENTRICULAR COMPLEXES ARE NO LONGER PRESENT T WAVE INVERSION MORE EVIDENT IN INFERIOR LEADS Confirmed by JOSH PEARCE MD ([id number]) on 05/24/2016 2:47:09 PM Referred By: Confirmed By:JOSH PEARCE MD
[2016-05-24] MEDS: BRIMONIDINE TARTRATE 0.2% OPHTHALMIC 5 ML BOTTLE OU SCH ×2 (15:00→22:02)
[2016-05-24] MEDS: ZINC SULFATE 220 MG CAPSULE (FP) PO SCH (15:39)
--- NOTE | 2016-05-24 18:26 | CONSULT ---
Consult Consult Specialty:: Nephrology Reason for Consultation:: CASE - History of Present Illness Chief Complaint: sent in for abnormal bloodwork History of Present Illness: Pt is a 76 year old male with pmhx of CKD, HTN, Chol, CHF, COPD, and hypothyroidism who was sent in for abnormal bloodwork. He was found to have a creatinine of 3.95. His baseline is about 2.9. He is awake but is a poor historian. He denies chest pain or shortness of breath. He does not appear to be at his baseline. He denies dysuria or hematuria. He denies fevers or chills. - History Source History Provided By: Medical Record - Past Medical History Cardio/Vascular: Yes: CHF, HTN, Other (flutter) Pulmonary: Yes: COPD Gastrointestinal: Yes: Diverticulosis, Peptic Ulcer Disease Renal/: Yes: Renal Inusuff Endocrine: Yes: Diabetes Mellitus Additional Medical History: glaucoma - Past Surgical History Past Surgical History: Yes: Colonoscopy, Upper Endoscopy - Alcohol/Substance Use Hx Alcohol Use: No - Smoking History Smoking history: Never smoked Have you smoked in the past 12 months: No - Social History Usual Living Arrangement: [place] Occupation: worked for the [employer] Home Medications - Allergies Allergies/Adverse Reactions: Allergies Allergy/AdvReac Type Severity Reaction Status Date / Time No Known Allergies Allergy Verified 05/23/16 23:31 - Home Medications Home Medications: Ambulatory Orders Acetaminophen [Tylenol .Regular Strength -] 650 mg PO Q6H PRN #0 tablet Albuterol 2.5/Ipratropium 0.5 [Duoneb -] 1 amp NEB Q6H PRN #0 amp 04/18/16 Apixaban [Eliquis -] 5 mg PO BID tablet 04/18/16 Ascorbic Acid [Vitamin C -] 500 mg PO DAILY tablet 04/18/16 Brimonidine Tartrate [Alphagan 0.2% -] 1 drop OU BID drops 04/18/16 Folic Acid - 1 mg PO DAILY tablet 04/18/16 Hydralazine HCl [Apresoline -] 10 mg PO BID tablet 04/18/16 Insulin Sliding Scale [Novolog Vial Sliding Scale -] 1 vial SQ ACHS units 04/18 Isosorbide Dinitrate [Isordil -] 20 mg PO BIDISORDIL tablet 04/18/16 Levothyroxine [Synthroid -] 50 mcg PO DAILY@0700 tablet 04/18/16 Metoprolol Succinate [Toprol XL -] 25 mg PO BID tab.sr.24h 04/18/16 Multivitamins [Multivit ([facility] Form[facility])] 1 tab PO DAILY tab 04/18/16 Ranitidine [Zantac -] 150 mg PO BID tablet 04/18/16 Torsemide [Demadex -] 40 mg PO DAILY tablet 04/18/16 Zinc Sulfate [Orazinc -] 220 mg PO DAILY capsule 04/18/16 Amiodarone HCl [Cordarone -] 200 mg PO DAILY 05/23/16 Family Disease History - Family Disease History Family Disease History: Diabetes: Father Review of Systems - Review of Systems Constitutional: denies: Chills, Fever Eyes: reports: No Symptoms HENT: reports: No Symptoms Neck: reports: No Symptoms Cardiovascular: reports: No Symptoms Gastrointestinal: reports: No Symptoms Musculoskeletal: reports: Muscle Weakness Endocrine: reports: No Symptoms Physical Exam Vital Signs: Vital Signs Temperature 98.5 F 05/24/16 13:00 Pulse Rate 72 05/24/16 13:00 Respiratory Rate 20 05/24/16 13:00 Blood Pressure 112/72 05/24/16 13:00 O2 Sat by Pulse Oximetry (%) 97 05/24/16 09:00 Constitutional: Yes: Calm Eyes: Yes: Conjunctiva Clear HENT: Yes: Atraumatic Neck: Yes: Supple Cardiovascular: Yes: S1, S2 Respiratory: Yes: CTA Bilaterally Gastrointestinal: Yes: Soft Musculoskeletal: Yes: Muscle Weakness Edema: Yes Edema: LLE: Trace, RLE: Trace Integumentary: Yes: Venous Stasis Changes Neurological: Yes: Oriented Labs: CBC, BMP 05/24/16 06:00 05/24/16 06:00 Laboratory Tests 04/17/16 04/18/16 04/19/16 05:35 06:00 06:15 WBC Hgb BUN Creatinine 2.9 H 2.9 H 2.9 H Vancomycin Trough 05/23/16 05/23/16 05/24/16 17:30 21:20 06:00 WBC 19.1 H Hgb 11.9 D 11.1 L BUN 91 H D Creatinine 3.9 H D Vancomycin Trough 05/24/16 05/24/16 06:00 16:40 WBC Hgb BUN 83 H Creatinine 3.7 H Vancomycin Trough 7.403 Imaging - Results Chest X-ray: Report Reviewed Problem List - Problems (1) Anemia Code(s): D64.9 - ANEMIA, UNSPECIFIED Qualifiers: Other causes of anemia: chronic disease, kidney (2) CKD (chronic kidney disease), stage II Code(s): N18.2 - CHRONIC KIDNEY DISEASE, STAGE 2 (MILD) (3) COPD (chronic obstructive pulmonary disease) Code(s): J44.9 - CHRONIC OBSTRUCTIVE PULMONARY DISEASE, UNSPECIFIED (4) DMII (diabetes mellitus, type 2) Code(s): E11.9 - TYPE 2 DIABETES MELLITUS WITHOUT COMPLICATIONS Qualifiers: Diabetes mellitus complication detail: with other kidney complication (5) HTN (hypertension) Code(s): I10 - ESSENTIAL (PRIMARY) HYPERTENSION Qualifiers: Hypertension type: essential hypertension Qualified Code(s): I10 - Essential (primary) hypertension Assessment/Plan Current Medications Generic Name Dose Route Start Last Admin Trade Name Freq PRN Reason Stop Dose Admin Acetaminophen 650 mg 05/23/16 22:34 Tylenol - PO Q6H PRN FEVER OR PAIN Albuterol/Ipratropium 1 amp 05/23/16 22:34 Duoneb - NEB Q6H PRN SHORTNESS OF BREATH Amiodarone HCl 200 mg 05/24/16 10:00 05/24/16 10:19 Cordarone - PO 200 mg DAILY SISI Administration Apixaban 5 mg 05/24/16 10:00 05/24/16 10:27 Eliquis - PO 5 mg BID SISI Administration Ascorbic Acid 500 mg 05/24/16 10:00 05/24/16 10:18 Vitamin C - PO 500 mg DAILY SISI Administration Brimonidine Tartrate 1 drop 05/24/16 10:00 05/24/16 15:00 Alphagan 0.2% - OU 1 drop BID SISI Administration Folic Acid 1 mg 05/24/16 10:00 05/24/16 10:20 Folic Acid - PO 1 mg DAILY SISI Administration Hydralazine HCl 10 mg 05/24/16 10:00 05/24/16 10:19 Apresoline - PO 10 mg BID SISI Administration Piperacillin Sod/Tazobactam Sod 50 mls @ 100 mls/hr 05/24/16 10:00 05/24/16 17: 44 Zosyn 2.25gm Ivpb (Pre-Docked) IVPB 100 mls/hr Q8H-IV SISI Administration Protocol Insulin Aspart 1 vial 05/24/16 07:00 05/24/16 17:47 Novolog Vial Sliding Scale - SQ 2 units ACHS SISI Administration Protocol Isosorbide Dinitrate 20 mg 05/24/16 10:00 05/24/16 17:44 Isordil - PO 20 mg BIDISORDIL SISI Administration Levothyroxine Sodium 50 mcg 05/24/16 07:00 05/24/16 06:43 Synthroid - PO 50 mcg DAILY@0700 SISI Administration Metoprolol Succinate 25 mg 05/24/16 10:00 05/24/16 10:19 Toprol Xl - PO 25 mg BID SISI Administration Multivitamins/Minerals/Vitamin C 1 tab 05/24/16 10:00 05/24/16 10:20 Tab-A-Vit - PO 1 tab DAILY SISI Administration Ranitidine HCl 150 mg 05/24/16 10:00 05/24/16 10:19 Zantac - PO 150 mg BID SISI Administration Zinc Sulfate 220 mg 05/24/16 10:00 05/24/16 15:39 Orazinc - PO 220 mg DAILY SISI Administration Impression 1. CASE on CKD 2. sepsis 3. cellulitis/abscess of back 4. CHF 5. hypothyroidism 6. hyperlipidemia 7. COPD 8. htn Plan - would hold diuretics for now - repeat labs in am - pt appears more volume contracted - cont abx - encourage PO intake - renal function is improving Dr Martinez
[2016-05-24] MEDS ORDERED: VANCOMYCIN 1 GRAM (PRE-DOCKED) 1,000 MG/250 ML BAG IVPB ONE (20:45)
[2016-05-24] MEDS ORDERED: PT OWN MED DRAWER 7, Y5N ONE (21:44)
[2016-05-25] MEDS: PIPERACILLIN/TAZOB 2.25 GM 50 ML IVPB SCH ×4 (01:15→17:01)
[2016-05-25] MEDS: INSULIN SLIDING SCALE (NOVOLOG) 1 VIAL SQ SCH ×4 (06:10→22:30)
[2016-05-25] MEDS: LEVOTHYROXINE NA 50 MCG TABLET (FP) PO SCH (06:12)
[2016-05-25 07:59] LABS: BASOPHIL 0.2 % (0-2.0); EOSINOPHIL 0.6 % (0-4.5); MCH 28.9 pg (25.7-33.7); MCHC 31.4 g/dl (32.0-35.9); PLATELET COUNT 170 K/MM3 (134-434); RDW 19.5 % (11.9-15.9); WHITE BLOOD COUNT 17.2 K/mm3 (4.0-10.0)
[2016-05-25 08:24] LABS: CREATININE 3.2 mg/dL (0.7-1.3)
[2016-05-25 08:25] LABS: ALBUMIN 1.8 g/dl (3.4-5.0); CALCIUM 8.2 mg/dL (8.5-10.1)
[2016-05-25 08:30] LABS: BILIRUBIN,TOTAL 1.2 mg/dL (0.2-1.0); TOT PROT 5.6 g/dl (6.4-8.2)
[2016-05-25] MEDS ORDERED: PT OWN MED DRAWER 7, Y5N ONE ×2 (08:53→22:28)
[2016-05-25] MEDS: FOLIC ACID 1 MG TABLET (FP) PO SCH (09:02)
[2016-05-25] MEDS: APIXABAN 5 MG TABLET PO SCH ×2 (09:02→22:29)
[2016-05-25] MEDS: ASCORBIC ACID 500 MG TABLET (FP) PO SCH (09:02)
[2016-05-25] MEDS: MULTIVITAMINS (DAILY MVI) TABLET (FP) PO SCH (09:02)
[2016-05-25] MEDS: RANITIDINE HCL 150 MG TABLET (FP) PO SCH ×2 (09:02→22:29)
[2016-05-25] MEDS: METOPROLOL SUCCINATE 25 MG TAB.SR.24H (FP) PO SCH ×2 (09:02→22:29)
[2016-05-25] MEDS: BRIMONIDINE TARTRATE 0.2% OPHTHALMIC 5 ML BOTTLE OU SCH ×2 (09:02→22:29)
[2016-05-25] MEDS: AMIODARONE HCL 200 MG TABLET (FP) PO SCH (09:02)
[2016-05-25] MEDS: ZINC SULFATE 220 MG CAPSULE (FP) PO SCH (09:02)
--- NOTE | 2016-05-25 09:35 | PN ---
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 (short form) - Note 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: s: no cp sob palps dizzy o: Vital Signs Period Temp Pulse Resp BP Sys/Hubbard Pulse Ox Last 24 Hr 97 F-98.5 F 57-72 18-20 91-112/53-72 97-99 nad, no jvd rrr s1s2 no mrg cta bl nl eff aaox3 trace edema, no c/c abd nt nd pos bs no jaundice diaphoresis Current Medications Generic Name Dose Route Start Last Admin Trade Name Freq PRN Reason Stop Dose Admin Acetaminophen 650 mg 05/23/16 22:34 Tylenol - PO Q6H PRN FEVER OR PAIN Albuterol/Ipratropium 1 amp 05/23/16 22:34 Duoneb - NEB Q6H PRN SHORTNESS OF BREATH Amiodarone HCl 200 mg 05/24/16 10:00 05/25/16 09:02 Cordarone - PO 200 mg DAILY [facility] Administration Apixaban 5 mg 05/24/16 10:00 05/25/16 09:02 Eliquis - PO 5 mg BID [facility] Administration Ascorbic Acid 500 mg 05/24/16 10:00 05/25/16 09:02 Vitamin C - PO 500 mg DAILY [facility] Administration Brimonidine Tartrate 1 drop 05/24/16 10:00 05/25/16 09:02 Alphagan 0.2% - OU 1 drop BID [facility] Administration Folic Acid 1 mg 05/24/16 10:00 05/25/16 09:02 Folic Acid - PO 1 mg DAILY [facility] Administration Piperacillin Sod/Tazobactam Sod 50 mls @ 100 mls/hr 05/24/16 10:00 05/25/16 09: 02 Zosyn 2.25gm Ivpb (Pre-Docked) IVPB 100 mls/hr Q8H-IV [facility] Administration Protocol Insulin Aspart 1 vial 05/24/16 07:00 05/25/16 06:10 Novolog Vial Sliding Scale - SQ Not Given ACHS [facility] Protocol Levothyroxine Sodium 50 mcg 05/24/16 07:00 05/25/16 06:12 Synthroid - PO 50 mcg DAILY@0700 [facility] Administration Metoprolol Succinate 25 mg 05/24/16 10:00 05/25/16 09:02 Toprol Xl - PO 25 mg BID [facility] Administration Multivitamins/Minerals/Vitamin C 1 tab 05/24/16 10:00 05/25/16 09:02 Tab-A-Vit - PO 1 tab DAILY [facility] Administration Ranitidine HCl 150 mg 05/24/16 10:00 05/25/16 09:02 Zantac - PO 150 mg BID [facility] Administration Zinc Sulfate 220 mg 05/24/16 10:00 05/25/16 09:02 Orazinc - PO 220 mg DAILY [facility] Administration CBC, BMP 05/25/16 06:30 05/25/16 06:30 mibi 10/2014: no ischemia, sev reduced lvef echo 10/2014 ([facility] [place]): definity used. mild lve, lvef 45%, nl rv, mild AR, sev lae , nl rvsp echo 03/2016: severely decreased LV fn (global), nl rv. 1+ AR/MR. Mod MAC. 1+ TR. rvsp 30-40 EKG 05/23/16: sr, nl intervals, lat twis, no st changes, similar to priors cxr: clear lungs tele: SR with occ pvcs a/p: 75 m hx non obs cad (cath 10/2014: only mild disease RCA), remote NE ( mentioned in prior charts, no further details, pt unclear of hx), syst chf (NICM , mild dec lvef), htn, copd, dm, ckd (cr 2's), aflutter on eliquis, recent admit for subcutaneous abscess/sepsis/CASE sent to SNF now sent from md for case and elevated wbcs. aflutter - in sinus here on tele - cont amiodarone and metoprolol - on eliquis, hgb stable. NICM, chronic syst chf: - rpt echo 03/2016 with worsened LV function. Follow up with cardiology as outpatient for evaluation of etiology of worsened LV function once acute issues resolved - con't metoprolol, will hold hydralazine 10 bid and isordil 20 bid while bp low here with sepsis, resume when bp improves - currently vol stable at baseline wt near low 220s lbs and having case likely from sepsis so will hold home torsemide 40 qd for now until cr returns to baseline (approx 3) - not on NORMAN/ARB previously, due to advanced CKD and/or labile cr acute on chronic ckd - currently vol stable at baseline wt near low 220s lbs and having case likely from sepsis so will hold home torsemide 40 qd for now until cr returns to baseline (approx 3). cr improving here so far. anemia: -stable here -seen by GI in past: has h/o gastric ulcers and diverticular bleeding in past, but no melena and guaiac neg here--i.e. no active GIB suspected HTN -bp on low side, likely from infection so holding hydralazine and isordil for now non-obstructive CAD - Not on statin - on AC subcutaneous abscess, s/p I and D 04/11, le cellulitis: - now returns with elevated wbc, worse cellulitis - abx per ID positive trop: -trop in borderline range with flat trend consistent with his prior baselines and with nl ck and no sig ecg changes. Not consistent with acs.
--- NOTE | 2016-05-25 11:31 | PN ---
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 (short form) - Note 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: awkake and alert no complaints reported Gram positive bacilli yesterday gram stain of blood culture- given vanco- today plates growing GNR! Vital Signs Period Temp Pulse Resp BP Sys/Hubbard Pulse Ox Last 24 Hr 97 F-98.5 F 57-72 18-20 91-112/53-72 98-99 cor-rrr lungs clear, decreased bs at bases abd soft,nt ext legs wrapped, +erythema with skin erosions bilaterally shoulder wound- clean CBC, BMP 05/25/16 06:30 05/25/16 06:30 Microbiology 05/23/16 17:30 Urine - Urine Clean Catch Urine Culture - Preliminary Lactose Fermenting Neg Bacilli 05/23/16 17:30 Blood - Peripheral Venous Blood Culture - Preliminary Non Lactose Fermenting Gnb 05/23/16 17:30 Blood - Peripheral Venous Blood Culture - Preliminary Non Lactose Fermenting Gnb Laboratory Tests 05/24/16 05/25/16 05/25/16 16:40 06:30 06:30 Total Bilirubin 1.2 H Alkaline Phosphatase 196 H Vancomycin Trough 7.403 Random Vancomycin 14.876 Current Medications Acetaminophen (Tylenol -) 650 mg PO Q6H PRN PRN Reason: FEVER OR PAIN Albuterol/Ipratropium (Duoneb -) 1 amp NEB Q6H PRN PRN Reason: SHORTNESS OF BREATH Amiodarone HCl (Cordarone -) 200 mg PO DAILY [facility] Last Admin: 05/25/16 09:02 Dose: 200 mg Apixaban (Eliquis -) 5 mg PO BID [facility] Last Admin: 05/25/16 09:02 Dose: 5 mg Ascorbic Acid (Vitamin C -) 500 mg PO DAILY [facility] Last Admin: 05/25/16 09:02 Dose: 500 mg Brimonidine Tartrate (Alphagan 0.2% -) 1 drop OU BID [facility] Last Admin: 05/25/16 09:02 Dose: 1 drop Folic Acid (Folic Acid -) 1 mg PO DAILY [facility] Last Admin: 05/25/16 09:02 Dose: 1 mg Piperacillin Sod/Tazobactam Sod (Zosyn 2.25gm Ivpb (Pre-Docked)) 50 mls @ 100 mls/hr IVPB Q8H-IV [facility] PRN Reason: Protocol Last Admin: 05/25/16 09:02 Dose: 100 mls/hr Insulin Aspart (Novolog Vial Sliding Scale -) 1 vial SQ ACHS [facility] PRN Reason: Protocol Last Admin: 05/25/16 06:10 Dose: Not Given Levothyroxine Sodium (Synthroid -) 50 mcg PO DAILY@0700 [facility] Last Admin: 05/25/16 06:12 Dose: 50 mcg Metoprolol Succinate (Toprol Xl -) 25 mg PO BID [facility] Last Admin: 05/25/16 09:02 Dose: 25 mg Multivitamins/Minerals/Vitamin C (Tab-A-Vit -) 1 tab PO DAILY [facility] Last Admin: 05/25/16 09:02 Dose: 1 tab Ranitidine HCl (Zantac -) 150 mg PO BID [facility] Last Admin: 05/25/16 09:02 Dose: 150 mg Zinc Sulfate (Orazinc -) 220 mg PO DAILY [facility] Last Admin: 05/25/16 09:02 Dose: 220 mg a/p gram negative sepsis, lactic acidosis resolved ?source elevated alk phos- would get sonogram of liver/gallbladder may need ct scan abd/pelvis continue zosyn d/c vancomycin ckd diabetes history of shoulder abscess
--- NOTE | 2016-05-25 11:59 | PN ---
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, Physician Chief Complaint: NO COMPLAINTS - Current Medication List Current Medications: Active Medications Acetaminophen (Tylenol -) 650 mg PO Q6H PRN PRN Reason: FEVER OR PAIN Albuterol/Ipratropium (Duoneb -) 1 amp NEB Q6H PRN PRN Reason: SHORTNESS OF BREATH Amiodarone HCl (Cordarone -) 200 mg PO DAILY [facility] Last Admin: 05/25/16 09:02 Dose: 200 mg Apixaban (Eliquis -) 5 mg PO BID [facility] Last Admin: 05/25/16 09:02 Dose: 5 mg Ascorbic Acid (Vitamin C -) 500 mg PO DAILY [facility] Last Admin: 05/25/16 09:02 Dose: 500 mg Brimonidine Tartrate (Alphagan 0.2% -) 1 drop OU BID [facility] Last Admin: 05/25/16 09:02 Dose: 1 drop Folic Acid (Folic Acid -) 1 mg PO DAILY [facility] Last Admin: 05/25/16 09:02 Dose: 1 mg Piperacillin Sod/Tazobactam Sod (Zosyn 2.25gm Ivpb (Pre-Docked)) 50 mls @ 100 mls/hr IVPB Q8H-IV [facility] PRN Reason: Protocol Last Admin: 05/25/16 09:02 Dose: 100 mls/hr Insulin Aspart (Novolog Vial Sliding Scale -) 1 vial SQ ACHS [facility] PRN Reason: Protocol Last Admin: 05/25/16 06:10 Dose: Not Given Levothyroxine Sodium (Synthroid -) 50 mcg PO DAILY@0700 [facility] Last Admin: 05/25/16 06:12 Dose: 50 mcg Metoprolol Succinate (Toprol Xl -) 25 mg PO BID [facility] Last Admin: 05/25/16 09:02 Dose: 25 mg Multivitamins/Minerals/Vitamin C (Tab-A-Vit -) 1 tab PO DAILY [facility] Last Admin: 05/25/16 09:02 Dose: 1 tab Ranitidine HCl (Zantac -) 150 mg PO BID [facility] Last Admin: 05/25/16 09:02 Dose: 150 mg Zinc Sulfate (Orazinc -) 220 mg PO DAILY [facility] Last Admin: 05/25/16 09:02 Dose: 220 mg - Objective Vital Signs: Vital Signs Temperature 97 F L 05/25/16 06:00 Pulse Rate 61 05/25/16 09:00 Respiratory Rate 20 03/12/17 09:00 Blood Pressure 105/62 05/25/16 09:00 O2 Sat by Pulse Oximetry (%) 98 05/25/16 09:00 Cardiovascular: Yes: WNL Respiratory: Yes: WNL Gastrointestinal: Yes: WNL Edema: Yes Wound/Incision: Yes: Draining, Reddened Labs: CBC, BMP 05/25/16 06:30 05/25/16 06:30 INR, PTT INR 3.96 (0.82-1.09) H D 05/23/16 17:30 Problem List - Problems (1) Sepsis Code(s): A41.9 - SEPSIS, UNSPECIFIED ORGANISM Qualifiers: Sepsis type: sepsis due to unspecified organism Qualified Code(s): A41.9 - Sepsis, unspecified organism (2) Acute on chronic renal failure Code(s): N17.9 - ACUTE KIDNEY FAILURE, UNSPECIFIED N18.9 - CHRONIC KIDNEY DISEASE, UNSPECIFIED (3) Atrial flutter Code(s): I48.92 - UNSPECIFIED ATRIAL FLUTTER (4) CKD (chronic kidney disease), stage II Code(s): N18.2 - CHRONIC KIDNEY DISEASE, STAGE 2 (MILD) (5) COPD (chronic obstructive pulmonary disease) Code(s): J44.9 - CHRONIC OBSTRUCTIVE PULMONARY DISEASE, UNSPECIFIED (6) Congestive heart failure (CHF) Code(s): I50.9 - HEART FAILURE, UNSPECIFIED Qualifiers: Congestive heart failure type: systolic Congestive heart failure chronicity: chronic Qualified Code(s): I50.22 - Chronic systolic (congestive ) heart failure (7) DMII (diabetes mellitus, type 2) Code(s): E11.9 - TYPE 2 DIABETES MELLITUS WITHOUT COMPLICATIONS Qualifiers: Diabetes mellitus complication detail: with other kidney complication (8) HTN (hypertension) Code(s): I10 - ESSENTIAL (PRIMARY) HYPERTENSION Qualifiers: Hypertension type: essential hypertension Qualified Code(s): I10 - Essential (primary) hypertension (9) Leukocytosis Code(s): D72.829 - ELEVATED WHITE BLOOD CELL COUNT, UNSPECIFIED Qualifiers: Leukocytosis type: unspecified Qualified Code(s): D72.829 - Elevated white blood cell count, unspecified Assessment/Plan The patient is a 76 year old male, with a significant past medical history of hypertension, hyperlipidemia, hypothyroidism, diabetes, CHF, COPD and chronic kidney disease, who presents to the emergency department via EMS from [facility] for evaluation secondary to abnormal blood work which was done earlier today (B1 of 86; creatinine of 3.95; white count of 26.1; 16% bandemia). Currently in the ED, the patient has no complaints. The patient is a poor historian. Allergies: None reported. Past Surgical History: None reported. Social History: Non smoker. Denies alcohol or drug use. PCP: Dr. Robert Colorado (1) Sepsis? Code(s): A41.9 - SEPSIS, UNSPECIFIED ORGANISM Qualifiers: Sepsis type: sepsis due to unspecified organism Qualified Code(s): A41.9 - Sepsis, unspecified organism NO FEVER CELLULITIS UCx & BCx +triston CXr NAD ID CONSULT APPRECIATED LACTIC ACID 2.6 -> NOW WNL IV ABx (2) Acute on chronic renal failure Code(s): N17.9 - ACUTE KIDNEY FAILURE, UNSPECIFIED N18.9 - CHRONIC KIDNEY DISEASE, UNSPECIFIED RENAL CONSULTED IMPROVED (3) Atrial flutter Code(s): I48.92 - UNSPECIFIED ATRIAL FLUTTER TROP +triston x 2 -> BUT NOT C/W ACS CARDIO ON CASE NOAC (4) CKD (chronic kidney disease), stage II Code(s): N18.2 - CHRONIC KIDNEY DISEASE, STAGE 2 (MILD) (5) COPD (chronic obstructive pulmonary disease) Code(s): J44.9 - CHRONIC OBSTRUCTIVE PULMONARY DISEASE, UNSPECIFIED DUONEB PRN (6) Congestive heart failure (CHF) Code(s): I50.9 - HEART FAILURE, UNSPECIFIED Qualifiers: Congestive heart failure type: systolic Congestive heart failure chronicity: chronic Qualified Code(s): I50.22 - Chronic systolic (congestive ) heart failure (7) DMII (diabetes mellitus, type 2) Code(s): E11.9 - TYPE 2 DIABETES MELLITUS WITHOUT COMPLICATIONS Qualifiers: Diabetes mellitus complication detail: with other kidney complication BG ISS (8) HTN (hypertension) Code(s): I10 - ESSENTIAL (PRIMARY) HYPERTENSION Qualifiers: Hypertension type: essential hypertension Qualified Code(s): I10 - Essential (primary) hypertension (9) Leukocytosis Code(s): D72.829 - ELEVATED WHITE BLOOD CELL COUNT, UNSPECIFIED Qualifiers: Leukocytosis type: unspecified Qualified Code(s): D72.829 - Elevated white blood cell count, unspecified INCed AP -> MCKENZIE CABEZAS [facility]
--- NOTE | 2016-05-25 14:46 | PN ---
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 (short form) - Note 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: Patient seen in follow up. Meds reviewed Current Medications Generic Name Dose Route Start Last Admin Trade Name Freq PRN Reason Stop Dose Admin Acetaminophen 650 mg 05/23/16 22:34 Tylenol - PO Q6H PRN FEVER OR PAIN Albuterol/Ipratropium 1 amp 05/23/16 22:34 Duoneb - NEB Q6H PRN SHORTNESS OF BREATH Amiodarone HCl 200 mg 05/24/16 10:00 05/25/16 09:02 Cordarone - PO 200 mg DAILY [facility] Administration Apixaban 5 mg 05/24/16 10:00 05/25/16 09:02 Eliquis - PO 5 mg BID [facility] Administration Ascorbic Acid 500 mg 05/24/16 10:00 05/25/16 09:02 Vitamin C - PO 500 mg DAILY [facility] Administration Brimonidine Tartrate 1 drop 05/24/16 10:00 05/25/16 09:02 Alphagan 0.2% - OU 1 drop BID [facility] Administration Folic Acid 1 mg 05/24/16 10:00 05/25/16 09:02 Folic Acid - PO 1 mg DAILY [facility] Administration Piperacillin Sod/Tazobactam Sod 50 mls @ 100 mls/hr 05/24/16 10:00 05/25/16 09: 02 Zosyn 2.25gm Ivpb (Pre-Docked) IVPB 100 mls/hr Q8H-IV [facility] Administration Protocol Insulin Aspart 1 vial 05/24/16 07:00 05/25/16 12:30 Novolog Vial Sliding Scale - SQ 2 units ACHS [facility] Administration Protocol Levothyroxine Sodium 50 mcg 05/24/16 07:00 05/25/16 06:12 Synthroid - PO 50 mcg DAILY@0700 [facility] Administration Metoprolol Succinate 25 mg 05/24/16 10:00 05/25/16 09:02 Toprol Xl - PO 25 mg BID [facility] Administration Multivitamins/Minerals/Vitamin C 1 tab 05/24/16 10:00 05/25/16 09:02 Tab-A-Vit - PO 1 tab DAILY [facility] Administration Ranitidine HCl 150 mg 05/24/16 10:00 05/25/16 09:02 Zantac - PO 150 mg BID [facility] Administration Zinc Sulfate 220 mg 05/24/16 10:00 05/25/16 09:02 Orazinc - PO 220 mg DAILY [facility] Administration Noted that urine and blood cultures from admission positive for GN organisms. Microbiology 05/23/16 17:30 Urine - Urine Clean Catch Urine Culture - Preliminary Lactose Fermenting Neg Bacilli 05/23/16 17:30 Blood - Peripheral Venous Blood Culture - Preliminary Non Lactose Fermenting Gnb 05/23/16 17:30 Blood - Peripheral Venous Blood Culture - Preliminary Non Lactose Fermenting Gnb ID following. CBC, BMP 05/25/16 06:30 05/25/16 06:30 Assessment: Reactive neutrophilia resolving on Abics. Will sign off - call with questions.
--- NOTE | 2016-05-25 16:47 | PN ---
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, Physician History of Present Illness: Pt seen and examined at bedside. He is more awake and alert today. - Current Medication List Current Medications: Active Medications Acetaminophen (Tylenol -) 650 mg PO Q6H PRN PRN Reason: FEVER OR PAIN Albuterol/Ipratropium (Duoneb -) 1 amp NEB Q6H PRN PRN Reason: SHORTNESS OF BREATH Amiodarone HCl (Cordarone -) 200 mg PO DAILY [facility] Last Admin: 05/25/16 09:02 Dose: 200 mg Apixaban (Eliquis -) 5 mg PO BID [facility] Last Admin: 05/25/16 09:02 Dose: 5 mg Ascorbic Acid (Vitamin C -) 500 mg PO DAILY [facility] Last Admin: 05/25/16 09:02 Dose: 500 mg Brimonidine Tartrate (Alphagan 0.2% -) 1 drop OU BID [facility] Last Admin: 05/25/16 09:02 Dose: 1 drop Folic Acid (Folic Acid -) 1 mg PO DAILY [facility] Last Admin: 05/25/16 09:02 Dose: 1 mg Piperacillin Sod/Tazobactam Sod (Zosyn 2.25gm Ivpb (Pre-Docked)) 50 mls @ 100 mls/hr IVPB Q8H-IV [facility] PRN Reason: Protocol Last Admin: 05/25/16 09:02 Dose: 100 mls/hr Insulin Aspart (Novolog Vial Sliding Scale -) 1 vial SQ ACHS [facility] PRN Reason: Protocol Last Admin: 05/25/16 12:30 Dose: 2 units Levothyroxine Sodium (Synthroid -) 50 mcg PO DAILY@0700 [facility] Last Admin: 05/25/16 06:12 Dose: 50 mcg Metoprolol Succinate (Toprol Xl -) 25 mg PO BID [facility] Last Admin: 05/25/16 09:02 Dose: 25 mg Multivitamins/Minerals/Vitamin C (Tab-A-Vit -) 1 tab PO DAILY [facility] Last Admin: 05/25/16 09:02 Dose: 1 tab Ranitidine HCl (Zantac -) 150 mg PO BID [facility] Last Admin: 05/25/16 09:02 Dose: 150 mg Zinc Sulfate (Orazinc -) 220 mg PO DAILY [facility] Last Admin: 05/25/16 09:02 Dose: 220 mg - Objective Vital Signs: Vital Signs Temperature 97.3 F L 05/25/16 14:00 Pulse Rate 61 05/25/16 09:00 Respiratory Rate 20 05/25/16 14:00 Blood Pressure 100/68 05/25/16 14:00 O2 Sat by Pulse Oximetry (%) 98 05/25/16 09:00 Constitutional: Yes: Calm Eyes: Yes: Conjunctiva Clear HENT: Yes: Atraumatic Cardiovascular: Yes: S1, S2 Respiratory: Yes: CTA Bilaterally Gastrointestinal: Yes: Soft, Abdomen, Obese Genitourinary: Yes: WNL Musculoskeletal: Yes: Muscle Weakness Edema: Yes Edema: LLE: Trace, RLE: Trace Neurological: Yes: Oriented Psychiatric: Yes: Oriented Labs: CBC, BMP 05/25/16 06:30 05/25/16 06:30 INR, PTT INR 3.96 (0.82-1.09) H D 05/23/16 17:30 Problem List - Problems (1) Anemia Code(s): D64.9 - ANEMIA, UNSPECIFIED Qualifiers: Other causes of anemia: chronic disease, kidney (2) CKD (chronic kidney disease), stage II Code(s): N18.2 - CHRONIC KIDNEY DISEASE, STAGE 2 (MILD) (3) COPD (chronic obstructive pulmonary disease) Code(s): J44.9 - CHRONIC OBSTRUCTIVE PULMONARY DISEASE, UNSPECIFIED (4) DMII (diabetes mellitus, type 2) Code(s): E11.9 - TYPE 2 DIABETES MELLITUS WITHOUT COMPLICATIONS Qualifiers: Diabetes mellitus complication detail: with other kidney complication (5) HTN (hypertension) Code(s): I10 - ESSENTIAL (PRIMARY) HYPERTENSION Qualifiers: Hypertension type: essential hypertension Qualified Code(s): I10 - Essential (primary) hypertension Assessment/Plan Current Medications Generic Name Dose Route Start Last Admin Trade Name Freq PRN Reason Stop Dose Admin Acetaminophen 650 mg 05/23/16 22:34 Tylenol - PO Q6H PRN FEVER OR PAIN Albuterol/Ipratropium 1 amp 05/23/16 22:34 Duoneb - NEB Q6H PRN SHORTNESS OF BREATH Amiodarone HCl 200 mg 05/24/16 10:00 05/25/16 09:02 Cordarone - PO 200 mg DAILY [facility] Administration Apixaban 5 mg 05/24/16 10:00 05/25/16 09:02 Eliquis - PO 5 mg BID [facility] Administration Ascorbic Acid 500 mg 05/24/16 10:00 05/25/16 09:02 Vitamin C - PO 500 mg DAILY [facility] Administration Brimonidine Tartrate 1 drop 05/24/16 10:00 05/25/16 09:02 Alphagan 0.2% - OU 1 drop BID [facility] Administration Folic Acid 1 mg 05/24/16 10:00 05/25/16 09:02 Folic Acid - PO 1 mg DAILY [facility] Administration Piperacillin Sod/Tazobactam Sod 50 mls @ 100 mls/hr 05/24/16 10:00 05/25/16 09: 02 Zosyn 2.25gm Ivpb (Pre-Docked) IVPB 100 mls/hr Q8H-IV [facility] Administration Protocol Insulin Aspart 1 vial 05/24/16 07:00 05/25/16 12:30 Novolog Vial Sliding Scale - SQ 2 units ACHS [facility] Administration Protocol Levothyroxine Sodium 50 mcg 05/24/16 07:00 05/25/16 06:12 Synthroid - PO 50 mcg DAILY@0700 [facility] Administration Metoprolol Succinate 25 mg 05/24/16 10:00 05/25/16 09:02 Toprol Xl - PO 25 mg BID [facility] Administration Multivitamins/Minerals/Vitamin C 1 tab 05/24/16 10:00 05/25/16 09:02 Tab-A-Vit - PO 1 tab DAILY [facility] Administration Ranitidine HCl 150 mg 05/24/16 10:00 05/25/16 09:02 Zantac - PO 150 mg BID [facility] Administration Zinc Sulfate 220 mg 05/24/16 10:00 05/25/16 09:02 Orazinc - PO 220 mg DAILY [facility] Administration Impression 1. CASE on CKD 2. sepsis 3. cellulitis/abscess of back 4. CHF 5. hypothyroidism 6. hyperlipidemia 7. COPD 8. htn Plan - renal function is improving - mental status is improving - repeat labs in am - will likely restart diuretics tomorrow - cont abx - encourage PO intake Dr Martinez
[2016-05-25] MEDS: ACETAMINOPHEN 325 MG TABLET (FP) PO PRN (22:35)
[2016-05-26] MEDS: PIPERACILLIN/TAZOB 2.25 GM 50 ML IVPB SCH ×3 (02:12→17:10)
[2016-05-26 06:42] LABS: BASOPHIL 0.2 % (0-2.0); EOSINOPHIL 0.8 % (0-4.5); MCH 29.3 pg (25.7-33.7); MCHC 32.2 g/dl (32.0-35.9); MEAN CELL VOLUME 90.8 fl (80-96); MEAN PLT VOLUME 10.5 fl (7.5-11.1); NEUTROPHILS 88.3 % (42.8-82.8); PLATELET COUNT 194 K/MM3 (134-434); RDW 19.8 % (11.9-15.9); WHITE BLOOD COUNT 12.8 K/mm3 (4.0-10.0)
[2016-05-26] MEDS: INSULIN SLIDING SCALE (NOVOLOG) 1 VIAL SQ SCH ×4 (06:44→21:41)
[2016-05-26] MEDS: LEVOTHYROXINE NA 50 MCG TABLET (FP) PO SCH (06:45)
[2016-05-26 06:57] LABS: ALBUMIN 1.9 g/dl (3.4-5.0); BILIRUBIN,TOTAL 0.8 mg/dL (0.2-1.0); CALCIUM 7.9 mg/dL (8.5-10.1); CREATININE 3.5 mg/dL (0.7-1.3); TOT PROT 5.8 g/dl (6.4-8.2)
--- NOTE | 2016-05-26 06:57 | PN ---
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, Physician Chief Complaint: NO COMPLAINTS - Current Medication List Current Medications: Active Medications Acetaminophen (Tylenol -) 650 mg PO Q6H PRN PRN Reason: FEVER OR PAIN Last Admin: 05/25/16 22:35 Dose: 650 mg Albuterol/Ipratropium (Duoneb -) 1 amp NEB Q6H PRN PRN Reason: SHORTNESS OF BREATH Amiodarone HCl (Cordarone -) 200 mg PO DAILY [facility] Last Admin: 05/25/16 09:02 Dose: 200 mg Apixaban (Eliquis -) 5 mg PO BID [facility] Last Admin: 05/25/16 22:29 Dose: 5 mg Ascorbic Acid (Vitamin C -) 500 mg PO DAILY [facility] Last Admin: 05/25/16 09:02 Dose: 500 mg Brimonidine Tartrate (Alphagan 0.2% -) 1 drop OU BID [facility] Last Admin: 05/25/16 22:29 Dose: 1 drop Folic Acid (Folic Acid -) 1 mg PO DAILY [facility] Last Admin: 05/25/16 09:02 Dose: 1 mg Piperacillin Sod/Tazobactam Sod (Zosyn 2.25gm Ivpb (Pre-Docked)) 50 mls @ 100 mls/hr IVPB Q8H-IV [facility] PRN Reason: Protocol Last Admin: 05/26/16 02:12 Dose: 100 mls/hr Insulin Aspart (Novolog Vial Sliding Scale -) 1 vial SQ ACHS [facility] PRN Reason: Protocol Last Admin: 05/26/16 06:44 Dose: Not Given Levothyroxine Sodium (Synthroid -) 50 mcg PO DAILY@0700 [facility] Last Admin: 05/26/16 06:45 Dose: 50 mcg Metoprolol Succinate (Toprol Xl -) 25 mg PO BID [facility] Last Admin: 05/25/16 22:29 Dose: 25 mg Multivitamins/Minerals/Vitamin C (Tab-A-Vit -) 1 tab PO DAILY [facility] Last Admin: 05/25/16 09:02 Dose: 1 tab Ranitidine HCl (Zantac -) 150 mg PO BID [facility] Last Admin: 05/25/16 22:29 Dose: 150 mg Zinc Sulfate (Orazinc -) 220 mg PO DAILY [facility] Last Admin: 05/25/16 09:02 Dose: 220 mg - Objective Vital Signs: Vital Signs Temperature 98 F 05/26/16 06:00 Pulse Rate 63 05/26/16 06:00 Respiratory Rate 18 05/26/16 06:00 Blood Pressure 100/61 05/26/16 06:00 O2 Sat by Pulse Oximetry (%) 99 05/25/16 21:00 Cardiovascular: Yes: WNL Respiratory: Yes: WNL Gastrointestinal: Yes: WNL Edema: Yes Labs: CBC, BMP 05/26/16 05:25 INR, PTT INR 3.96 (0.82-1.09) H D 05/23/16 17:30 Problem List - Problems (1) Sepsis Code(s): A41.9 - SEPSIS, UNSPECIFIED ORGANISM Qualifiers: Sepsis type: sepsis due to unspecified organism Qualified Code(s): A41.9 - Sepsis, unspecified organism (2) Acute on chronic renal failure Code(s): N17.9 - ACUTE KIDNEY FAILURE, UNSPECIFIED N18.9 - CHRONIC KIDNEY DISEASE, UNSPECIFIED (3) Atrial flutter Code(s): I48.92 - UNSPECIFIED ATRIAL FLUTTER (4) CKD (chronic kidney disease), stage II Code(s): N18.2 - CHRONIC KIDNEY DISEASE, STAGE 2 (MILD) (5) COPD (chronic obstructive pulmonary disease) Code(s): J44.9 - CHRONIC OBSTRUCTIVE PULMONARY DISEASE, UNSPECIFIED (6) Congestive heart failure (CHF) Code(s): I50.9 - HEART FAILURE, UNSPECIFIED Qualifiers: Congestive heart failure type: systolic Congestive heart failure chronicity: chronic Qualified Code(s): I50.22 - Chronic systolic (congestive ) heart failure (7) DMII (diabetes mellitus, type 2) Code(s): E11.9 - TYPE 2 DIABETES MELLITUS WITHOUT COMPLICATIONS Qualifiers: Diabetes mellitus complication detail: with other kidney complication (8) HTN (hypertension) Code(s): I10 - ESSENTIAL (PRIMARY) HYPERTENSION Qualifiers: Hypertension type: essential hypertension Qualified Code(s): I10 - Essential (primary) hypertension (9) Leukocytosis Code(s): D72.829 - ELEVATED WHITE BLOOD CELL COUNT, UNSPECIFIED Qualifiers: Leukocytosis type: unspecified Qualified Code(s): D72.829 - Elevated white blood cell count, unspecified Assessment/Plan The patient is a 76 year old male, with a significant past medical history of hypertension, hyperlipidemia, hypothyroidism, diabetes, CHF, COPD and chronic kidney disease, who presents to the emergency department via EMS from [facility] for evaluation secondary to abnormal blood work which was done earlier today (B1 of 86; creatinine of 3.95; white count of 26.1; 16% bandemia). Currently in the ED, the patient has no complaints. The patient is a poor historian. Allergies: None reported. Past Surgical History: None reported. Social History: Non smoker. Denies alcohol or drug use. PCP: Dr. Robert Colorado (1) Sepsis? Code(s): A41.9 - SEPSIS, UNSPECIFIED ORGANISM Qualifiers: Sepsis type: sepsis due to unspecified organism Qualified Code(s): A41.9 - Sepsis, unspecified organism NO FEVER CELLULITIS UCx & BCx +triston CXr NAD ID CONSULT APPRECIATED LACTIC ACID 2.6 -> NOW WNL IV ABx DR SARMIENTO FOR WOUND CARE (2) Acute on chronic renal failure Code(s): N17.9 - ACUTE KIDNEY FAILURE, UNSPECIFIED N18.9 - CHRONIC KIDNEY DISEASE, UNSPECIFIED RENAL CONSULTED IMPROVED (3) Atrial flutter Code(s): I48.92 - UNSPECIFIED ATRIAL FLUTTER TROP +triston x 2 -> BUT NOT C/W ACS CARDIO ON CASE NOAC (4) CKD (chronic kidney disease), stage II Code(s): N18.2 - CHRONIC KIDNEY DISEASE, STAGE 2 (MILD) (5) COPD (chronic obstructive pulmonary disease) Code(s): J44.9 - CHRONIC OBSTRUCTIVE PULMONARY DISEASE, UNSPECIFIED DUONEB PRN (6) Congestive heart failure (CHF) Code(s): I50.9 - HEART FAILURE, UNSPECIFIED Qualifiers: Congestive heart failure type: systolic Congestive heart failure chronicity: chronic Qualified Code(s): I50.22 - Chronic systolic (congestive ) heart failure (7) DMII (diabetes mellitus, type 2) Code(s): E11.9 - TYPE 2 DIABETES MELLITUS WITHOUT COMPLICATIONS Qualifiers: Diabetes mellitus complication detail: with other kidney complication [facility] ISS (8) HTN (hypertension) Code(s): I10 - ESSENTIAL (PRIMARY) HYPERTENSION Qualifiers: Hypertension type: essential hypertension Qualified Code(s): I10 - Essential (primary) hypertension (9) Leukocytosis Code(s): D72.829 - ELEVATED WHITE BLOOD CELL COUNT, UNSPECIFIED Qualifiers: Leukocytosis type: unspecified Qualified Code(s): D72.829 - Elevated white blood cell count, unspecified INCed AP -> F/U MCKENZIE BERGER REPORT TELEPHONE CLERK FM
--- NOTE | 2016-05-26 08:47 | PN ---
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, Physician Chief Complaint: cmp History of Present Illness: sleepy but wakes up; denies sob, cp, palpitations, syncope - Current Medication List Current Medications: Active Medications Acetaminophen (Tylenol -) 650 mg PO Q6H PRN PRN Reason: FEVER OR PAIN Last Admin: 05/25/16 22:35 Dose: 650 mg Albuterol/Ipratropium (Duoneb -) 1 amp NEB Q6H PRN PRN Reason: SHORTNESS OF BREATH Amiodarone HCl (Cordarone -) 200 mg PO DAILY [facility] Last Admin: 05/25/16 09:02 Dose: 200 mg Apixaban (Eliquis -) 5 mg PO BID [facility] Last Admin: 05/25/16 22:29 Dose: 5 mg Ascorbic Acid (Vitamin C -) 500 mg PO DAILY [facility] Last Admin: 05/25/16 09:02 Dose: 500 mg Brimonidine Tartrate (Alphagan 0.2% -) 1 drop OU BID [facility] Last Admin: 05/25/16 22:29 Dose: 1 drop Folic Acid (Folic Acid -) 1 mg PO DAILY [facility] Last Admin: 05/25/16 09:02 Dose: 1 mg Piperacillin Sod/Tazobactam Sod (Zosyn 2.25gm Ivpb (Pre-Docked)) 50 mls @ 100 mls/hr IVPB Q8H-IV [facility] PRN Reason: Protocol Last Admin: 05/26/16 02:12 Dose: 100 mls/hr Insulin Aspart (Novolog Vial Sliding Scale -) 1 vial SQ ACHS [facility] PRN Reason: Protocol Last Admin: 05/26/16 06:44 Dose: Not Given Levothyroxine Sodium (Synthroid -) 50 mcg PO DAILY@0700 [facility] Last Admin: 05/26/16 06:45 Dose: 50 mcg Metoprolol Succinate (Toprol Xl -) 25 mg PO BID [facility] Last Admin: 05/25/16 22:29 Dose: 25 mg Multivitamins/Minerals/Vitamin C (Tab-A-Vit -) 1 tab PO DAILY [facility] Last Admin: 05/25/16 09:02 Dose: 1 tab Ranitidine HCl (Zantac -) 150 mg PO BID [facility] Last Admin: 05/25/16 22:29 Dose: 150 mg Zinc Sulfate (Orazinc -) 220 mg PO DAILY [facility] Last Admin: 05/25/16 09:02 Dose: 220 mg - Objective Vital Signs: Vital Signs Temperature 98 F 05/26/16 06:00 Pulse Rate 63 05/26/16 06:00 Respiratory Rate 18 05/26/16 06:00 Blood Pressure 100/61 05/26/16 06:00 O2 Sat by Pulse Oximetry (%) 99 05/25/16 21:00 Constitutional: Yes: Well Nourished, No Distress, Calm Cardiovascular: Yes: Regular Rate and Rhythm, S1, S2. No: JVD, Gallop, Murmur Respiratory: Yes: Regular, CTA Bilaterally. No: Accessory Muscle Use, Rales, Wheezes Extremities: No: Cold Edema: Yes (1-2+ pretib L >R) Neurological: Yes: Alert. No: Seizure Psychiatric: No: Agitated Labs: CBC, BMP 05/26/16 05:25 05/26/16 05:25 INR, PTT INR 3.96 (0.82-1.09) H D 05/23/16 17:30 - ....Imaging EKG: Other (tele: NSR) Assessment/Plan echo 10/2014 ([facility] [place]): definity used. mild lve, lvef 45%, nl rv, mild AR, sev lae , nl rvsp echo 03/2016: severely decreased LV fn (global), nl rv. 1+ AR/MR. Mod MAC. 1+ TR. rvsp 30-40 EKG 05/23/16: sr, nl intervals, lat twis, no st changes, similar to priors cxr: clear lungs a/p: 75 m hx non obs cad (cath 10/2014: only mild disease RCA), remote NE ( mentioned in prior charts, no further details, pt unclear of hx), syst chf (NICM , mild dec lvef), htn, copd, dm, ckd (cr 2's), aflutter on eliquis, recent admit for subcutaneous abscess/sepsis/CASE sent to SNF [place] for case and elevated wbcs. aflutter - in sinus here on tele - cont amiodarone and metoprolol - on eliquis, hgb stable. NICM, chronic syst chf: - rpt echo 03/2016 with worsened LV function. seeing cardiology in dr boateng's office--will follow up there as outpatient for evaluation of etiology of worsened LV function once acute issues resolved (? med nonadherence--pt previously with confusion/med issues) - con't metoprolol - resume hydralazine 10 bid and isordil 20 bid once sepsis resolves and bp stable - on torsemide 40 qd at home--held here for CASE--peripheral edema noted but not convinced he is in chf (? cellulitis)--continue holding for now--resume maintenance diuretic prior to discharge, once CASE resolves - not on NORMAN/ARB previously, due to advanced CKD and labile cr acute on chronic ckd - renal fxn remains worse than recent hosp d/c - holding diuretics - plan per renal--ok for gentle hydration if felt indicated to help with renal fxn recovery anemia: -stable here -seen by GI in past: has h/o gastric ulcers and diverticular bleeding in past, but no melena and guaiac neg here--i.e. no active GIB suspected HTN -bp on low side, likely from infection so holding hydralazine and isordil for now non-obstructive CAD - Not on statin - on AC subcutaneous abscess, s/p I and D 04/11, le cellulitis: - now returns with elevated wbc, worse cellulitis - abx per ID positive trop: -trop in interemdiate range with flat trend (0.2 c 2), consistent with his prior baselines and with nl ck and no sig ecg changes. Not consistent with acs. D/C TELEMETRY
[2016-05-26] MEDS: BRIMONIDINE TARTRATE 0.2% OPHTHALMIC 5 ML BOTTLE OU SCH ×2 (09:12→21:41)
[2016-05-26] MEDS: MULTIVITAMINS (DAILY MVI) TABLET (FP) PO SCH (09:12)
[2016-05-26] MEDS: APIXABAN 5 MG TABLET PO SCH ×2 (09:12→21:41)
[2016-05-26] MEDS: FOLIC ACID 1 MG TABLET (FP) PO SCH (09:12)
[2016-05-26] MEDS: ASCORBIC ACID 500 MG TABLET (FP) PO SCH (09:12)
[2016-05-26] MEDS: AMIODARONE HCL 200 MG TABLET (FP) PO SCH (09:12)
[2016-05-26] MEDS: METOPROLOL SUCCINATE 25 MG TAB.SR.24H (FP) PO SCH ×2 (09:12→21:41)
[2016-05-26] MEDS: RANITIDINE HCL 150 MG TABLET (FP) PO SCH ×2 (09:12→21:41)
[2016-05-26] MEDS: ZINC SULFATE 220 MG CAPSULE (FP) PO SCH (09:16)
--- NOTE | 2016-05-26 11:03 | PN ---
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 (short form) - Note 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: no complaints Vital Signs Period Temp Pulse Resp BP Sys/Hubbard Pulse Ox Last 24 Hr 97.2 F-98 F 57-63 18-20 97-108/52-68 91-99 cor-rrr lungs decreased bs at bases abd soft,nt ext less erythema of the legs, right leg is still quite painful skin erosions, foul smell shoulder ulcer with granulation tissue at base CBC, BMP 05/26/16 05:25 05/26/16 05:25 Microbiology 05/23/16 17:30 Blood - Peripheral Venous Blood Culture - Preliminary Non Lactose Fermenting Gnb 05/23/16 17:30 Blood - Peripheral Venous Blood Culture - Preliminary Non Lactose Fermenting Gnb 05/23/16 17:30 Urine - Urine Clean Catch Urine Culture - Preliminary Enterobacter Cloacae Current Medications Acetaminophen (Tylenol -) 650 mg PO Q6H PRN PRN Reason: FEVER OR PAIN Last Admin: 05/25/16 22:35 Dose: 650 mg Albuterol/Ipratropium (Duoneb -) 1 amp NEB Q6H PRN PRN Reason: SHORTNESS OF BREATH Amiodarone HCl (Cordarone -) 200 mg PO DAILY [facility] Last Admin: 05/26/16 09:12 Dose: 200 mg Apixaban (Eliquis -) 5 mg PO BID [facility] Last Admin: 05/26/16 09:12 Dose: 5 mg Ascorbic Acid (Vitamin C -) 500 mg PO DAILY [facility] Last Admin: 05/26/16 09:12 Dose: 500 mg Brimonidine Tartrate (Alphagan 0.2% -) 1 drop OU BID [facility] Last Admin: 05/26/16 09:12 Dose: 1 drop Folic Acid (Folic Acid -) 1 mg PO DAILY [facility] Last Admin: 05/26/16 09:12 Dose: 1 mg Piperacillin Sod/Tazobactam Sod (Zosyn 2.25gm Ivpb (Pre-Docked)) 50 mls @ 100 mls/hr IVPB Q8H-IV [facility] PRN Reason: Protocol Last Admin: 05/26/16 09:12 Dose: 100 mls/hr Insulin Aspart (Novolog Vial Sliding Scale -) 1 vial SQ ACHS [facility] PRN Reason: Protocol Last Admin: 05/26/16 06:44 Dose: Not Given Levothyroxine Sodium (Synthroid -) 50 mcg PO DAILY@0700 [facility] Last Admin: 05/26/16 06:45 Dose: 50 mcg Metoprolol Succinate (Toprol Xl -) 25 mg PO BID [facility] Last Admin: 05/26/16 09:12 Dose: 25 mg Multivitamins/Minerals/Vitamin C (Tab-A-Vit -) 1 tab PO DAILY [facility] Last Admin: 05/26/16 09:12 Dose: 1 tab Ranitidine HCl (Zantac -) 150 mg PO BID [facility] Last Admin: 05/26/16 09:12 Dose: 150 mg Zinc Sulfate (Orazinc -) 220 mg PO DAILY [facility] Last Admin: 05/26/16 09:16 Dose: 220 mg sonogram noted a/p gram negative sepsis, lactic acidosis resolved source most likely leg infection/cellulitis elevated alk phos- sonogram unremarkable continue zosyn f/u cultures agree with surgical evaluation of the legs ckd diabetes history of shoulder abscess
--- NOTE | 2016-05-26 12:37 | PN ---
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, Physician History of Present Illness: Pt seen and examined at bedside. He is awake and appears comfortable. - Current Medication List Current Medications: Active Medications Acetaminophen (Tylenol -) 650 mg PO Q6H PRN PRN Reason: FEVER OR PAIN Last Admin: 05/25/16 22:35 Dose: 650 mg Albuterol/Ipratropium (Duoneb -) 1 amp NEB Q6H PRN PRN Reason: SHORTNESS OF BREATH Amiodarone HCl (Cordarone -) 200 mg PO DAILY [facility] Last Admin: 05/26/16 09:12 Dose: 200 mg Apixaban (Eliquis -) 5 mg PO BID [facility] Last Admin: 05/26/16 09:12 Dose: 5 mg Ascorbic Acid (Vitamin C -) 500 mg PO DAILY [facility] Last Admin: 05/26/16 09:12 Dose: 500 mg Brimonidine Tartrate (Alphagan 0.2% -) 1 drop OU BID [facility] Last Admin: 05/26/16 09:12 Dose: 1 drop Folic Acid (Folic Acid -) 1 mg PO DAILY [facility] Last Admin: 05/26/16 09:12 Dose: 1 mg Piperacillin Sod/Tazobactam Sod (Zosyn 2.25gm Ivpb (Pre-Docked)) 50 mls @ 100 mls/hr IVPB Q8H-IV [facility] PRN Reason: Protocol Last Admin: 05/26/16 09:12 Dose: 100 mls/hr Insulin Aspart (Novolog Vial Sliding Scale -) 1 vial SQ ACHS [facility] PRN Reason: Protocol Last Admin: 05/26/16 12:19 Dose: 2 units Levothyroxine Sodium (Synthroid -) 50 mcg PO DAILY@0700 [facility] Last Admin: 05/26/16 06:45 Dose: 50 mcg Metoprolol Succinate (Toprol Xl -) 25 mg PO BID [facility] Last Admin: 05/26/16 09:12 Dose: 25 mg Multivitamins/Minerals/Vitamin C (Tab-A-Vit -) 1 tab PO DAILY [facility] Last Admin: 05/26/16 09:12 Dose: 1 tab Ranitidine HCl (Zantac -) 150 mg PO BID [facility] Last Admin: 05/26/16 09:12 Dose: 150 mg Zinc Sulfate (Orazinc -) 220 mg PO DAILY [facility] Last Admin: 05/26/16 09:16 Dose: 220 mg - Objective Vital Signs: Vital Signs Temperature 98 F 05/26/16 06:00 Pulse Rate 60 05/26/16 09:00 Respiratory Rate 18 05/26/16 09:00 Blood Pressure 108/61 05/26/16 09:00 O2 Sat by Pulse Oximetry (%) 91 L 05/26/16 09:00 Constitutional: Yes: Calm Eyes: Yes: Conjunctiva Clear HENT: Yes: Atraumatic Neck: Yes: Supple Cardiovascular: Yes: S1, S2 Respiratory: Yes: CTA Bilaterally Gastrointestinal: Yes: Soft Genitourinary: Yes: WNL Musculoskeletal: Yes: WNL Edema: Yes Edema: LLE: 1+, RLE: 1+ Neurological: Yes: Oriented Labs: CBC, BMP 05/26/16 05:25 05/26/16 05:25 INR, PTT INR 3.96 (0.82-1.09) H D 05/23/16 17:30 Problem List - Problems (1) Anemia Code(s): D64.9 - ANEMIA, UNSPECIFIED Qualifiers: Other causes of anemia: chronic disease, kidney (2) CKD (chronic kidney disease), stage II Code(s): N18.2 - CHRONIC KIDNEY DISEASE, STAGE 2 (MILD) (3) COPD (chronic obstructive pulmonary disease) Code(s): J44.9 - CHRONIC OBSTRUCTIVE PULMONARY DISEASE, UNSPECIFIED (4) DMII (diabetes mellitus, type 2) Code(s): E11.9 - TYPE 2 DIABETES MELLITUS WITHOUT COMPLICATIONS Qualifiers: Diabetes mellitus complication detail: with other kidney complication (5) HTN (hypertension) Code(s): I10 - ESSENTIAL (PRIMARY) HYPERTENSION Qualifiers: Hypertension type: essential hypertension Qualified Code(s): I10 - Essential (primary) hypertension Assessment/Plan Current Medications Generic Name Dose Route Start Last Admin Trade Name Freq PRN Reason Stop Dose Admin Acetaminophen 650 mg 05/23/16 22:34 05/25/16 22:35 Tylenol - PO 650 mg Q6H PRN Administration FEVER OR PAIN Albuterol/Ipratropium 1 amp 05/23/16 22:34 Duoneb - NEB Q6H PRN SHORTNESS OF BREATH Amiodarone HCl 200 mg 05/24/16 10:00 05/26/16 09:12 Cordarone - PO 200 mg DAILY [facility] Administration Apixaban 5 mg 05/24/16 10:00 05/26/16 09:12 Eliquis - PO 5 mg BID [facility] Administration Ascorbic Acid 500 mg 05/24/16 10:00 05/26/16 09:12 Vitamin C - PO 500 mg DAILY [facility] Administration Brimonidine Tartrate 1 drop 05/24/16 10:00 05/26/16 09:12 Alphagan 0.2% - OU 1 drop BID [facility] Administration Folic Acid 1 mg 05/24/16 10:00 05/26/16 09:12 Folic Acid - PO 1 mg DAILY [facility] Administration Piperacillin Sod/Tazobactam Sod 50 mls @ 100 mls/hr 05/24/16 10:00 05/26/16 09: 12 Zosyn 2.25gm Ivpb (Pre-Docked) IVPB 100 mls/hr Q8H-IV [facility] Administration Protocol Insulin Aspart 1 vial 05/24/16 07:00 05/26/16 12:19 Novolog Vial Sliding Scale - SQ 2 units ACHS [facility] Administration Protocol Levothyroxine Sodium 50 mcg 05/24/16 07:00 05/26/16 06:45 Synthroid - PO 50 mcg DAILY@0700 [facility] Administration Metoprolol Succinate 25 mg 05/24/16 10:00 05/26/16 09:12 Toprol Xl - PO 25 mg BID [facility] Administration Multivitamins/Minerals/Vitamin C 1 tab 05/24/16 10:00 05/26/16 09:12 Tab-A-Vit - PO 1 tab DAILY [facility] Administration Ranitidine HCl 150 mg 05/24/16 10:00 05/26/16 09:12 Zantac - PO 150 mg BID [facility] Administration Zinc Sulfate 220 mg 05/24/16 10:00 05/26/16 09:16 Orazinc - PO 220 mg DAILY [facility] Administration Impression 1. CASE on CKD 2. sepsis 3. cellulitis/abscess of back 4. CHF 5. hypothyroidism 6. hyperlipidemia 7. COPD 8. htn Plan - restart torsemide - monitor renal function closely - cont antibiotics - cont current meds - will follow Dr Martinez
[2016-05-26] MEDS: TORSEMIDE 20 MG TABLET (FP) PO SCH (13:24)
--- NOTE | 2016-05-26 17:39 | CONSULT ---
- Consultation REQUESTING PROVIDER: Carlyle Batres (Vascular Surgery / Wound Care) CONSULT REQUEST: We have been asked to surgically evaluate this patient for b/l LE cellulitis. PCP: Davin Dee HPI: Called to evfeliciano 76yo male w/ PMHx noted below. Admitted to [facility] from [place] secondary to sepsis. Medicince wants us to evaluate patient's swollen/ erythematous lower extremtiy b/l. Patient denies n/v/f/c, diaphoresis. Deneis rash, itching. PMHx: CHF, HTN, Other (flutter), COPD, Diverticulosis, Peptic Ulcer Disease, Renal Inusuff, Diabetes Mellitus, hyperlipidemia, hypothyroidism PSHx: EGD/Colonoscopy, Sharp excisional debridement of left back/shoulder skin & subcutaneous tissue 04/11/15 Allergies: NKDA Home Meds 3 Acetaminophen [Tylenol .Regular 650 mg PO Q6H PRN #0 tablet 04/18/16 Albuterol 2.5/Ipratropium 0.5 1 amp NEB Q6H PRN #0 amp 04/18/16 [Duoneb -] Apixaban [Eliquis -] 5 mg PO BID tablet 04/18/16 Ascorbic Acid [Vitamin C -] 500 mg PO DAILY tablet 04/18/16 Brimonidine Tartrate [Alphagan 1 drop OU BID drops 04/18/16 Folic Acid - 1 mg PO DAILY tablet 04/18/16 Hydralazine HCl [Apresoline -] 10 mg PO BID tablet 04/18/16 Insulin Sliding Scale [Novolog 1 vial SQ ACHS units 04/18/16 Vial Sliding Scale -] Isosorbide Dinitrate [Isordil -] 20 mg PO BIDISORDIL tablet 04/18/16 Levothyroxine [Synthroid -] 50 mcg PO DAILY@0700 tablet 04/18/16 Metoprolol Succinate [Toprol XL -] 25 mg PO BID tab.sr.24h 04/18/16 Multivitamins [Multivit ([facility] 1 tab PO DAILY tab 04/18/16 Formulary)] Ranitidine [Zantac -] 150 mg PO BID tablet 04/18/16 Torsemide [Demadex -] 40 mg PO DAILY tablet 04/18/16 Zinc Sulfate [Orazinc -] 220 mg PO DAILY capsule 04/18/16 Amiodarone HCl [Cordarone -] 200 mg PO DAILY 05/23/16 ROS: CONSTITUTIONAL: Absent: generalized weakness, malaise, loss of appetite, weight change CARDIOVASCULAR: Absent: chest pain, syncope, palpitations, irregular heart rate , lightheadedness RESPIRATORY: Absent: cough, shortness of breath, dyspnea with exertion, wheezing , stridor, hemoptysis GASTROINTESTINAL:Absent: abdominal pain, abdominal distension, nausea, vomiting , diarrhea, constipation, melena, hematochezia GENITOURINARY: Absent: dysuria, frequency, urgency, hesitancy, hematuria, flank pain, genital pain MUSCULOSKELETAL: Absent: myalgia, arthralgia, joint swelling, back pain, neck pain SKIN: Absent: pallor HEMATOLOGIC/IMMUNOLOGIC: Absent: easy bleeding, easy bruising, lymphadenopathy NEUROLOGIC: Absent: headache, focal weakness, paresthesias, dizziness, unsteady gait, seizure, mental status changes PSYCHIATRIC: Absent: anxiety, depression, suicidal or homicidal ideation, hallucinations. PE: GENERAL: Awake, alert, nad. LE: 2+ pulses, warm, well-perfused. No calf tenderness. +1 pedal edema. (right > left): with circumfrential skin ulceration (stage 1) with a mixed fibrogranular base. Mild acrid urine smell emenating from legs bilat. Mild erythema. No fluctuance/induration/bogginess/drainage Vital Signs Temperature 97.7 F 05/26/16 14:33 Pulse Rate 60 05/26/16 14:33 Respiratory Rate 18 05/26/16 14:33 Blood Pressure 103/56 05/26/16 14:33 O2 Sat by Pulse Oximetry (%) 91 L 05/26/16 09:00 Lab Results WBC 12.8 K/mm3 (4.0-10.0) H 05/26/16 05:25 RBC 3.58 M/mm3 (4.00-5.60) L 05/26/16 05:25 Hgb 10.5 GM/dL (11.7-16.9) L 05/26/16 05:25 Hct 32.5 % (35.4-49) L 05/26/16 05:25 MCV 90.8 fl (80-96) 05/26/16 05:25 MCHC 32.2 g/dl (32.0-35.9) 05/26/16 05:25 RDW 19.8 % (11.9-15.9) H 05/26/16 05:25 Plt Count 194 K/MM3 (134-434) 05/26/16 05:25 Sodium 140 mmol/L (136-145) 05/26/16 05:25 Potassium 4.1 mmol/L (3.5-5.1) 05/26/16 05:25 Chloride 107 mmol/L (98-107) 05/26/16 05:25 Carbon Dioxide 23 mmol/L (21-32) 05/26/16 05:25 Anion Gap 10 (8-16) 05/26/16 05:25 BUN 89 mg/dL (7-18) H 05/26/16 05:25 Creatinine 3.5 mg/dL (0.7-1.3) H 05/26/16 05:25 Random Glucose 95 mg/dL (74-106) 05/26/16 05:25 Calcium 7.9 mg/dL (8.5-10.1) L 05/26/16 05:25 Blood Type A POSITIVE 05/23/16 17:30 Antibody Screen Negative 05/23/16 17:30 INR 3.96 (0.82-1.09) H D 05/23/16 17:30 Problem List - Problems (1) Pressure ulcer of lower extremity, stage 1 Assessment/Plan: Wash legs with warm soapy water daily. Apply santyl to fibrinous areas on legs. Cover with xeroform, kerlix, light compression, elevation. IV abx Cont care per medical team No surgical intervention Above plan discussed with Dr. Batres and agrees. Code(s): L89.891 - PRESSURE ULCER OF OTHER SITE, STAGE 1 (2) Sepsis Code(s): A41.9 - SEPSIS, UNSPECIFIED ORGANISM Qualifiers: Sepsis type: sepsis due to unspecified organism Qualified Code(s): A41.9 - Sepsis, unspecified organism (3) DMII (diabetes mellitus, type 2) Code(s): E11.9 - TYPE 2 DIABETES MELLITUS WITHOUT COMPLICATIONS Qualifiers: Diabetes mellitus complication detail: with other kidney complication Visit type - Case Type Case Type: ED Admission - Emergency Emergency Visit: Yes ED Registration Date: 05/23/16 Care time: The patient presented to the Emergency Department on the above date and was hospitalized for further evaluation of their emergent condition. - New patient This patient is new to me today: Yes Date on this admission: 05/26/16
[2016-05-26] MEDS ORDERED: PT OWN MED DRAWER 7, Y5N ONE (21:31)
[2016-05-27] MEDS: PIPERACILLIN/TAZOB 2.25 GM 50 ML IVPB SCH ×2 (02:49→09:34)
[2016-05-27] MEDS: INSULIN SLIDING SCALE (NOVOLOG) 1 VIAL SQ SCH ×4 (06:36→23:25)
[2016-05-27] MEDS: LEVOTHYROXINE NA 50 MCG TABLET (FP) PO SCH (06:36)
[2016-05-27 07:38] LABS: BASOPHIL 0.4 % (0-2.0); EOSINOPHIL 0.7 % (0-4.5); MCH 28.7 pg (25.7-33.7); MCHC 31.7 g/dl (32.0-35.9); MEAN CELL VOLUME 90.4 fl (80-96); MEAN PLT VOLUME 9.4 fl (7.5-11.1); NEUTROPHILS 83.1 % (42.8-82.8); PLATELET COUNT 189 K/MM3 (134-434)
[2016-05-27 08:04] LABS: ALBUMIN 1.8 g/dl (3.4-5.0); CALCIUM 7.7 mg/dL (8.5-10.1); CREATININE 3.2 mg/dL (0.7-1.3)
[2016-05-27 08:06] LABS: TOT PROT 5.9 g/dl (6.4-8.2)
--- NOTE | 2016-05-27 08:43 | PN ---
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, Physician History of Present Illness: Pt seen and examined at bedside. He is awake and alert. - Current Medication List Current Medications: Active Medications Acetaminophen (Tylenol -) 650 mg PO Q6H PRN PRN Reason: FEVER OR PAIN Last Admin: 05/25/16 22:35 Dose: 650 mg Albuterol/Ipratropium (Duoneb -) 1 amp NEB Q6H PRN PRN Reason: SHORTNESS OF BREATH Amiodarone HCl (Cordarone -) 200 mg PO DAILY [facility] Last Admin: 05/26/16 09:12 Dose: 200 mg Apixaban (Eliquis -) 5 mg PO BID [facility] Last Admin: 05/26/16 21:41 Dose: 5 mg Ascorbic Acid (Vitamin C -) 500 mg PO DAILY [facility] Last Admin: 05/26/16 09:12 Dose: 500 mg Brimonidine Tartrate (Alphagan 0.2% -) 1 drop OU BID [facility] Last Admin: 05/26/16 21:41 Dose: 1 drop Folic Acid (Folic Acid -) 1 mg PO DAILY [facility] Last Admin: 05/26/16 09:12 Dose: 1 mg Piperacillin Sod/Tazobactam Sod (Zosyn 2.25gm Ivpb (Pre-Docked)) 50 mls @ 100 mls/hr IVPB Q8H-IV [facility] PRN Reason: Protocol Last Admin: 05/27/16 02:49 Dose: 100 mls/hr Insulin Aspart (Novolog Vial Sliding Scale -) 1 vial SQ ACHS [facility] PRN Reason: Protocol Last Admin: 05/27/16 06:36 Dose: Not Given Levothyroxine Sodium (Synthroid -) 50 mcg PO DAILY@0700 [facility] Last Admin: 05/27/16 06:36 Dose: Not Given Metoprolol Succinate (Toprol Xl -) 25 mg PO BID [facility] Last Admin: 05/26/16 21:41 Dose: 25 mg Multivitamins/Minerals/Vitamin C (Tab-A-Vit -) 1 tab PO DAILY [facility] Last Admin: 05/26/16 09:12 Dose: 1 tab Ranitidine HCl (Zantac -) 150 mg PO BID [facility] Last Admin: 05/26/16 21:41 Dose: 150 mg Torsemide (Demadex -) 20 mg PO DAILY [facility] Last Admin: 05/26/16 13:24 Dose: 20 mg Zinc Sulfate (Orazinc -) 220 mg PO DAILY [facility] Last Admin: 05/26/16 09:16 Dose: 220 mg - Objective Vital Signs: Vital Signs Temperature 97.3 F L 05/27/16 06:00 Pulse Rate 59 L 05/27/16 06:00 Respiratory Rate 20 05/27/16 06:00 Blood Pressure 103/66 05/27/16 06:00 O2 Sat by Pulse Oximetry (%) 91 L 05/26/16 22:00 Constitutional: Yes: Calm Eyes: Yes: Conjunctiva Clear HENT: Yes: Atraumatic Cardiovascular: Yes: S1, S2 Respiratory: Yes: CTA Bilaterally Gastrointestinal: Yes: Soft Genitourinary: Yes: WNL Musculoskeletal: Yes: WNL Edema: Yes Edema: LLE: 1+, RLE: 1+ Neurological: Yes: Oriented Labs: CBC, BMP 05/27/16 06:50 05/27/16 06:50 INR, PTT INR 3.96 (0.82-1.09) H D 05/23/16 17:30 Problem List - Problems (1) Anemia Code(s): D64.9 - ANEMIA, UNSPECIFIED Qualifiers: Other causes of anemia: chronic disease, kidney (2) CKD (chronic kidney disease), stage II Code(s): N18.2 - CHRONIC KIDNEY DISEASE, STAGE 2 (MILD) (3) COPD (chronic obstructive pulmonary disease) Code(s): J44.9 - CHRONIC OBSTRUCTIVE PULMONARY DISEASE, UNSPECIFIED (4) DMII (diabetes mellitus, type 2) Code(s): E11.9 - TYPE 2 DIABETES MELLITUS WITHOUT COMPLICATIONS Qualifiers: Diabetes mellitus complication detail: with other kidney complication (5) HTN (hypertension) Code(s): I10 - ESSENTIAL (PRIMARY) HYPERTENSION Qualifiers: Hypertension type: essential hypertension Qualified Code(s): I10 - Essential (primary) hypertension Assessment/Plan Current Medications Generic Name Dose Route Start Last Admin Trade Name Freq PRN Reason Stop Dose Admin Acetaminophen 650 mg 05/23/16 22:34 05/25/16 22:35 Tylenol - PO 650 mg Q6H PRN Administration FEVER OR PAIN Albuterol/Ipratropium 1 amp 05/23/16 22:34 Duoneb - NEB Q6H PRN SHORTNESS OF BREATH Amiodarone HCl 200 mg 05/24/16 10:00 05/26/16 09:12 Cordarone - PO 200 mg DAILY [facility] Administration Apixaban 5 mg 05/24/16 10:00 05/26/16 21:41 Eliquis - PO 5 mg BID [facility] Administration Ascorbic Acid 500 mg 05/24/16 10:00 05/26/16 09:12 Vitamin C - PO 500 mg DAILY [facility] Administration Brimonidine Tartrate 1 drop 05/24/16 10:00 05/26/16 21:41 Alphagan 0.2% - OU 1 drop BID [facility] Administration Folic Acid 1 mg 05/24/16 10:00 05/26/16 09:12 Folic Acid - PO 1 mg DAILY [facility] Administration Piperacillin Sod/Tazobactam Sod 50 mls @ 100 mls/hr 05/24/16 10:00 05/27/16 02: 49 Zosyn 2.25gm Ivpb (Pre-Docked) IVPB 100 mls/hr Q8H-IV [facility] Administration Protocol Insulin Aspart 1 vial 05/24/16 07:00 05/27/16 06:36 Novolog Vial Sliding Scale - SQ Not Given ACHS [facility] Protocol Levothyroxine Sodium 50 mcg 05/24/16 07:00 05/27/16 06:36 Synthroid - PO Not Given DAILY@0700 [facility] Metoprolol Succinate 25 mg 05/24/16 10:00 05/26/16 21:41 Toprol Xl - PO 25 mg BID [facility] Administration Multivitamins/Minerals/Vitamin C 1 tab 05/24/16 10:00 05/26/16 09:12 Tab-A-Vit - PO 1 tab DAILY [facility] Administration Ranitidine HCl 150 mg 05/24/16 10:00 05/26/16 21:41 Zantac - PO 150 mg BID [facility] Administration Torsemide 20 mg 05/26/16 13:00 05/26/16 13:24 Demadex - PO 20 mg DAILY [facility] Administration Zinc Sulfate 220 mg 05/24/16 10:00 05/26/16 09:16 Orazinc - PO 220 mg DAILY [facility] Administration Impression 1. CASE on CKD 2. sepsis 3. cellulitis/abscess of back 4. CHF 5. hypothyroidism 6. hyperlipidemia 7. COPD 8. htn Plan - renal function stabilizing - cont with torsemide - repeat labs in am - will need local skin care to hands - cont antibiotics - cont current meds - will follow Dr Martinez
[2016-05-27 09:27] LABS: INR 2.1 (0.82-1.09); PROTHROMBIN TIME (PATIENT) 23.4 SEC (9.98-11.88)
[2016-05-27] MEDS: BRIMONIDINE TARTRATE 0.2% OPHTHALMIC 5 ML BOTTLE OU SCH ×2 (09:32→23:25)
[2016-05-27] MEDS: METOPROLOL SUCCINATE 25 MG TAB.SR.24H (FP) PO SCH ×2 (09:33→23:26)
[2016-05-27] MEDS: MULTIVITAMINS (DAILY MVI) TABLET (FP) PO SCH (09:33)
[2016-05-27] MEDS: ASCORBIC ACID 500 MG TABLET (FP) PO SCH (09:33)
[2016-05-27] MEDS: AMIODARONE HCL 200 MG TABLET (FP) PO SCH (09:33)
[2016-05-27] MEDS: APIXABAN 5 MG TABLET PO SCH ×2 (09:33→23:25)
[2016-05-27] MEDS: TORSEMIDE 20 MG TABLET (FP) PO SCH (09:33)
[2016-05-27] MEDS: ZINC SULFATE 220 MG CAPSULE (FP) PO SCH (09:33)
[2016-05-27] MEDS: FOLIC ACID 1 MG TABLET (FP) PO SCH (09:33)
[2016-05-27] MEDS: RANITIDINE HCL 150 MG TABLET (FP) PO SCH ×2 (09:33→23:25)
[2016-05-27] MEDS ORDERED: INSULIN (NOVOLOG) ASPART 100 UNITS/ML 10ML VIAL ONE (12:13)
[2016-05-27] MEDS ORDERED: cefTAZidime PENTAHYDRATE 1 GM/50ML PRE-DOCKED (RESTRICTED TO ID) IVPB SCH (12:30)
[2016-05-27] MEDS: CEFTAZIDIME PENTAHYDRATE 1 GM in DEXTROSE 5%-WATER - 50 ML IVPB SCH ×2 (13:42→23:25)
--- NOTE | 2016-05-27 15:33 | PN ---
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, Physician Chief Complaint: AWAKE ALERT C/O LEG EDEMA - Current Medication List Current Medications: Active Medications Acetaminophen (Tylenol -) 650 mg PO Q6H PRN PRN Reason: FEVER OR PAIN Last Admin: 05/25/16 22:35 Dose: 650 mg Albuterol/Ipratropium (Duoneb -) 1 amp NEB Q6H PRN PRN Reason: SHORTNESS OF BREATH Amiodarone HCl (Cordarone -) 200 mg PO DAILY [facility] Last Admin: 05/27/16 09:33 Dose: 200 mg Apixaban (Eliquis -) 5 mg PO BID [facility] Last Admin: 05/27/16 09:33 Dose: 5 mg Ascorbic Acid (Vitamin C -) 500 mg PO DAILY [facility] Last Admin: 05/27/16 09:33 Dose: 500 mg Brimonidine Tartrate (Alphagan 0.2% -) 1 drop OU BID [facility] Last Admin: 05/27/16 09:32 Dose: 1 drop Folic Acid (Folic Acid -) 1 mg PO DAILY [facility] Last Admin: 05/27/16 09:33 Dose: 1 mg Ceftazidime 1 gm/ Dextrose 50 mls @ 100 mls/hr IVPB BID [facility] Last Admin: 05/27/16 13:42 Dose: 100 mls/hr Insulin Aspart (Novolog Vial Sliding Scale -) 1 vial SQ ACHS [facility] PRN Reason: Protocol Last Admin: 05/27/16 12:10 Dose: 2 units Levothyroxine Sodium (Synthroid -) 50 mcg PO DAILY@0700 [facility] Last Admin: 05/27/16 06:36 Dose: Not Given Metoprolol Succinate (Toprol Xl -) 25 mg PO BID [facility] Last Admin: 05/27/16 09:33 Dose: 25 mg Multivitamins/Minerals/Vitamin C (Tab-A-Vit -) 1 tab PO DAILY [facility] Last Admin: 05/27/16 09:33 Dose: 1 tab Ranitidine HCl (Zantac -) 150 mg PO BID [facility] Last Admin: 05/27/16 09:33 Dose: 150 mg Torsemide (Demadex -) 20 mg PO DAILY [facility] Last Admin: 05/27/16 09:33 Dose: 20 mg Zinc Sulfate (Orazinc -) 220 mg PO DAILY [facility] Last Admin: 05/27/16 09:33 Dose: 220 mg - Objective Vital Signs: Vital Signs Temperature 97.8 F 05/27/16 14:57 Pulse Rate 56 L 05/27/16 14:57 Respiratory Rate 18 05/27/16 14:57 Blood Pressure 103/64 05/27/16 14:57 O2 Sat by Pulse Oximetry (%) 91 L 05/27/16 09:56 Constitutional: Yes: Mild Distress Eyes: Yes: WNL HENT: Yes: WNL Neck: Yes: WNL Cardiovascular: Yes: Pulse Irregular Respiratory: Yes: WNL Gastrointestinal: Yes: WNL Genitourinary: Yes: Other Musculoskeletal: Yes: Muscle Weakness Extremities: Yes: Erythema Edema: Yes Edema: LLE: 2+, RLE: 2+ Peripheral Pulses WNL: Yes Integumentary: Yes: Pressure Ulcer, Rash, Skin Tear, Venous Stasis Changes Wound/Incision: Yes: Dressing Dry and Intact Neurological: Yes: Pre-Existing Deficit ...Motor Strength: LLE, RLE Psychiatric: Yes: WNL Labs: CBC, BMP 05/27/16 06:50 05/27/16 06:50 INR, PTT INR 2.10 (0.82-1.09) H D 05/27/16 08:35 Problem List - Problems (1) Pressure ulcer of lower extremity, stage 1 Code(s): L89.891 - PRESSURE ULCER OF OTHER SITE, STAGE 1 (2) Sepsis Code(s): A41.9 - SEPSIS, UNSPECIFIED ORGANISM Qualifiers: Sepsis type: sepsis due to unspecified organism Qualified Code(s): A41.9 - Sepsis, unspecified organism (3) Abscess Code(s): L02.91 - CUTANEOUS ABSCESS, UNSPECIFIED (4) Acute on chronic renal failure Code(s): N17.9 - ACUTE KIDNEY FAILURE, UNSPECIFIED N18.9 - CHRONIC KIDNEY DISEASE, UNSPECIFIED (5) Anemia Code(s): D64.9 - ANEMIA, UNSPECIFIED Qualifiers: Other causes of anemia: chronic disease, kidney (6) Anticoagulated by anticoagulation treatment Code(s): Z79.01 - FPC (CURRENT) USE OF ANTICOAGULANTS (7) Atrial flutter Code(s): I48.92 - UNSPECIFIED ATRIAL FLUTTER (8) COPD (chronic obstructive pulmonary disease) Code(s): J44.9 - CHRONIC OBSTRUCTIVE PULMONARY DISEASE, UNSPECIFIED (9) Congestive heart failure (CHF) Code(s): I50.9 - HEART FAILURE, UNSPECIFIED Qualifiers: Congestive heart failure type: systolic Congestive heart failure chronicity: chronic Qualified Code(s): I50.22 - Chronic systolic (congestive ) heart failure (10) DMII (diabetes mellitus, type 2) Code(s): E11.9 - TYPE 2 DIABETES MELLITUS WITHOUT COMPLICATIONS Qualifiers: Diabetes mellitus complication detail: with other kidney complication (11) Dyspnea Code(s): R06.00 - DYSPNEA, UNSPECIFIED Qualifiers: Dyspnea type: shortness of breath Qualified Code(s): R06.02 - Shortness of breath (12) HTN (hypertension) Code(s): I10 - ESSENTIAL (PRIMARY) HYPERTENSION Qualifiers: Hypertension type: essential hypertension Qualified Code(s): I10 - Essential (primary) hypertension (13) Leukocytosis Code(s): D72.829 - ELEVATED WHITE BLOOD CELL COUNT, UNSPECIFIED Qualifiers: Leukocytosis type: unspecified Qualified Code(s): D72.829 - Elevated white blood cell count, unspecified (14) Unsteady gait Code(s): R26.81 - UNSTEADINESS ON FEET (15) Weakness of both lower limbs Code(s): M62.81 - MUSCLE WEAKNESS (GENERALIZED) Assessment/Plan WOUND VAC LEFT UPPER BACK WOUND IV ABX VASC SX LEG EDEMA DRESSING PRESENT CONTINUE AC FOR ATRIAL FLUTTER CARDIOLOGY EVAL APPRECIATED 02 SUPPOER PRN ADA WITH BGM CHECK
[2016-05-27] MEDS ORDERED: PT OWN MED DRAWER 7, Y5N ONE (23:05)
[2016-05-28] MEDS: INSULIN SLIDING SCALE (NOVOLOG) 1 VIAL SQ SCH ×4 (06:07→21:21)
[2016-05-28] MEDS: LEVOTHYROXINE NA 50 MCG TABLET (FP) PO SCH (06:15)
[2016-05-28 08:39] LABS: CREATININE 2.9 mg/dL (0.7-1.3)
--- NOTE | 2016-05-28 09:47 | PN ---
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 (short form) - Note 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: s: no cp sob palps dizzy o: Vital Signs Period Temp Pulse Resp BP Sys/Hubbard Pulse Ox Last 24 Hr 97.5 F-98.2 F 56-63 18-20 95-122/46-76 91-93 nad, no jvd rrr s1s2 no mrg cta bl nl eff aaox3 trace edema, no c/c abd nt nd pos bs no jaundice diaphoresis Current Medications Generic Name Dose Route Start Last Admin Trade Name Freq PRN Reason Stop Dose Admin Acetaminophen 650 mg 05/23/16 22:34 05/25/16 22:35 Tylenol - PO 650 mg Q6H PRN Administration FEVER OR PAIN Albuterol/Ipratropium 1 amp 05/23/16 22:34 Duoneb - NEB Q6H PRN SHORTNESS OF BREATH Amiodarone HCl 200 mg 05/24/16 10:00 05/27/16 09:33 Cordarone - PO 200 mg DAILY [facility] Administration Apixaban 5 mg 05/24/16 10:00 05/27/16 23:25 Eliquis - PO 5 mg BID [facility] Administration Ascorbic Acid 500 mg 05/24/16 10:00 05/27/16 09:33 Vitamin C - PO 500 mg DAILY [facility] Administration Brimonidine Tartrate 1 drop 05/24/16 10:00 05/27/16 23:25 Alphagan 0.2% - OU 1 drop BID [facility] Administration Folic Acid 1 mg 05/24/16 10:00 05/27/16 09:33 Folic Acid - PO 1 mg DAILY [facility] Administration Ceftazidime 1 gm/ Dextrose 50 mls @ 100 mls/hr 05/27/16 12:30 05/27/16 23:25 IVPB 100 mls/hr BID [facility] Administration Insulin Aspart 1 vial 05/24/16 07:00 05/28/16 06:07 Novolog Vial Sliding Scale - SQ Not Given ACHS [facility] Protocol Levothyroxine Sodium 50 mcg 05/24/16 07:00 05/28/16 06:15 Synthroid - PO 50 mcg DAILY@0700 [facility] Administration Metoprolol Succinate 25 mg 05/24/16 10:00 05/27/16 23:26 Toprol Xl - PO Not Given BID [facility] Multivitamins/Minerals/Vitamin C 1 tab 05/24/16 10:00 05/27/16 09:33 Tab-A-Vit - PO 1 tab DAILY [facility] Administration Ranitidine HCl 150 mg 05/24/16 10:00 05/27/16 23:25 Zantac - PO 150 mg BID [facility] Administration Torsemide 20 mg 05/26/16 13:00 05/27/16 09:33 Demadex - PO 20 mg DAILY [facility] Administration Zinc Sulfate 220 mg 05/24/16 10:00 05/27/16 09:33 Orazinc - PO 220 mg DAILY [facility] Administration CBC, BMP 05/27/16 06:50 05/28/16 06:15 mibi 10/2014: no ischemia, sev reduced lvef echo 10/2014 ([facility] [place]): definity used. mild lve, lvef 45%, nl rv, mild AR, sev lae , nl rvsp echo 03/2016: severely decreased LV fn (global), nl rv. 1+ AR/MR. Mod MAC. 1+ TR. rvsp 30-40 EKG 05/23/16: sr, nl intervals, lat twis, no st changes, similar to priors cxr: clear lungs a/p: 75 m hx non obs cad (cath 10/2014: only mild disease RCA), remote PA ( mentioned in prior charts, no further details, pt unclear of hx), syst chf (NICM , mild dec lvef), htn, copd, dm, ckd (cr 2's), aflutter on eliquis, recent admit for subcutaneous abscess/sepsis/CASE sent to SNF now sent from [facility] for case and elevated wbcs. aflutter - in sinus here - cont amiodarone and metoprolol - on eliquis, hgb stable. NICM, chronic syst chf: - rpt echo 03/2016 with worsened LV function. seeing cardiology in dr boateng's office--will follow up there as outpatient for evaluation of etiology of worsened LV function once acute issues resolved (? med nonadherence--pt previously with confusion/med issues) - con't metoprolol - resume hydralazine 10 bid and isordil 20 bid once sepsis resolves and bp stable - on torsemide 40 qd at home--held here for CASE--peripheral edema noted but not convinced he is in chf (? cellulitis). cr now back to baseline, back on torsemide at lower dose 20 mg qd. - not on NORMAN/ARB previously, due to advanced CKD and labile cr acute on chronic ckd - holding diuretics and cr back to baseline now - plan per renal--ok for gentle hydration if felt indicated to help with renal fxn recovery anemia: -stable here -seen by GI in past: has h/o gastric ulcers and diverticular bleeding in past, but no melena and guaiac neg here--i.e. no active GIB suspected HTN -bp on low side, likely from infection so holding hydralazine and isordil for now non-obstructive CAD - Not on statin - on AC subcutaneous abscess, s/p I and D 04/11, le cellulitis: - now returns with elevated wbc, worse cellulitis - abx per ID positive trop: -trop in intermediate range with flat trend, consistent with his prior baselines and with nl ck and no sig ecg changes. Not consistent with acs.
[2016-05-28] MEDS: BRIMONIDINE TARTRATE 0.2% OPHTHALMIC 5 ML BOTTLE OU SCH ×2 (10:00→21:14)
[2016-05-28] MEDS ORDERED: PT OWN MED DRAWER 7, Y5N ONE ×2 (10:39→21:09)
[2016-05-28] MEDS: FOLIC ACID 1 MG TABLET (FP) PO SCH (10:42)
[2016-05-28] MEDS: AMIODARONE HCL 200 MG TABLET (FP) PO SCH (10:42)
[2016-05-28] MEDS: APIXABAN 5 MG TABLET PO SCH ×2 (10:42→21:13)
[2016-05-28] MEDS: TORSEMIDE 20 MG TABLET (FP) PO SCH (10:42)
[2016-05-28] MEDS: CEFTAZIDIME PENTAHYDRATE 1 GM in DEXTROSE 5%-WATER - 50 ML IVPB SCH ×2 (10:42→21:14)
[2016-05-28] MEDS: MULTIVITAMINS (DAILY MVI) TABLET (FP) PO SCH (10:43)
[2016-05-28] MEDS: ZINC SULFATE 220 MG CAPSULE (FP) PO SCH (10:43)
[2016-05-28] MEDS: RANITIDINE HCL 150 MG TABLET (FP) PO SCH ×2 (10:43→21:13)
[2016-05-28] MEDS: ASCORBIC ACID 500 MG TABLET (FP) PO SCH (10:43)
[2016-05-28] MEDS: METOPROLOL SUCCINATE 25 MG TAB.SR.24H (FP) PO SCH ×2 (10:43→21:13)
--- NOTE | 2016-05-28 12:31 | PN ---
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 (short form) - Note 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: no complaints oob in chair Vital Signs Period Temp Pulse Resp BP Sys/Hubbard Pulse Ox Last 24 Hr 97.5 F-98.2 F 56-63 18-18 95-122/46-76 93-94 cor-rrr lungs clear abd soft,nt ext dressing intact- still draining CBC, BMP 05/27/16 06:50 05/28/16 06:15 Microbiology 05/26/16 11:50 Blood - Peripheral Venous Blood Culture - Preliminary NO GROWTH OBTAINED AFTER 48 HOURS, INCUBATION TO CONTINUE FOR 3 DAYS. 05/26/16 11:15 Blood - Peripheral Venous Blood Culture - Preliminary NO GROWTH OBTAINED AFTER 48 HOURS, INCUBATION TO CONTINUE FOR 3 DAYS. 05/23/16 17:30 Blood - Peripheral Venous Blood Culture - Final Pseudo Fluorescens/[place] 05/23/16 17:30 Blood - Peripheral Venous Blood Culture - Final Pseudo Fluorescens/Putida 05/23/16 17:30 Urine - Urine Clean Catch Urine Culture - Final Enterobacter Cloacae sonogram noted Current Medications Acetaminophen (Tylenol -) 650 mg PO Q6H PRN PRN Reason: FEVER OR PAIN Last Admin: 05/25/16 22:35 Dose: 650 mg Albuterol/Ipratropium (Duoneb -) 1 amp NEB Q6H PRN PRN Reason: SHORTNESS OF BREATH Amiodarone HCl (Cordarone -) 200 mg PO DAILY [facility] Last Admin: 05/28/16 10:42 Dose: 200 mg Apixaban (Eliquis -) 5 mg PO BID [facility] Last Admin: 05/28/16 10:42 Dose: 5 mg Ascorbic Acid (Vitamin C -) 500 mg PO DAILY [facility] Last Admin: 05/28/16 10:43 Dose: 500 mg Brimonidine Tartrate (Alphagan 0.2% -) 1 drop OU BID [facility] Last Admin: 05/27/16 23:25 Dose: 1 drop Folic Acid (Folic Acid -) 1 mg PO DAILY [facility] Last Admin: 05/28/16 10:42 Dose: 1 mg Ceftazidime 1 gm/ Dextrose 50 mls @ 100 mls/hr IVPB BID [facility] Last Admin: 05/28/16 10:42 Dose: 100 mls/hr Insulin Aspart (Novolog Vial Sliding Scale -) 1 vial SQ ACHS [facility] PRN Reason: Protocol Last Admin: 05/28/16 06:07 Dose: Not Given Levothyroxine Sodium (Synthroid -) 50 mcg PO DAILY@0700 [facility] Last Admin: 05/28/16 06:15 Dose: 50 mcg Metoprolol Succinate (Toprol Xl -) 25 mg PO BID [facility] Last Admin: 05/28/16 10:43 Dose: 25 mg Multivitamins/Minerals/Vitamin C (Tab-A-Vit -) 1 tab PO DAILY [facility] Last Admin: 05/28/16 10:43 Dose: 1 tab Ranitidine HCl (Zantac -) 150 mg PO BID [facility] Last Admin: 05/28/16 10:43 Dose: 150 mg Torsemide (Demadex -) 20 mg PO DAILY [facility] Last Admin: 05/28/16 10:42 Dose: 20 mg Zinc Sulfate (Orazinc -) 220 mg PO DAILY [facility] Last Admin: 05/28/16 10:43 Dose: 220 mg a/p gram negative sepsis, lactic acidosis resolved source most likely leg infection/cellulitis elevated alk phos- sonogram unremarkable switched to fortaz yesterday after sensitivities came back will get ct abd/pelvis- if negative suspect source most likely legs day #5 antibiotics, day #2 fortaz ckd cad diabetes history of shoulder abscess
[2016-05-28] MEDS ORDERED: INSULIN (NOVOLOG) ASPART 100 UNITS/ML 10ML VIAL ONE (12:42)
--- NOTE | 2016-05-28 13:15 | PN ---
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, Physician Chief Complaint: AWAKE ALERT NAD - Current Medication List Current Medications: Active Medications Acetaminophen (Tylenol -) 650 mg PO Q6H PRN PRN Reason: FEVER OR PAIN Last Admin: 05/25/16 22:35 Dose: 650 mg Albuterol/Ipratropium (Duoneb -) 1 amp NEB Q6H PRN PRN Reason: SHORTNESS OF BREATH Amiodarone HCl (Cordarone -) 200 mg PO DAILY [facility] Last Admin: 05/28/16 10:42 Dose: 200 mg Apixaban (Eliquis -) 5 mg PO BID [facility] Last Admin: 05/28/16 10:42 Dose: 5 mg Ascorbic Acid (Vitamin C -) 500 mg PO DAILY [facility] Last Admin: 05/28/16 10:43 Dose: 500 mg Brimonidine Tartrate (Alphagan 0.2% -) 1 drop OU BID [facility] Last Admin: 05/28/16 10:00 Dose: 1 drop Folic Acid (Folic Acid -) 1 mg PO DAILY [facility] Last Admin: 05/28/16 10:42 Dose: 1 mg Ceftazidime 1 gm/ Dextrose 50 mls @ 100 mls/hr IVPB BID [facility] Last Admin: 05/28/16 10:42 Dose: 100 mls/hr Insulin Aspart (Novolog Vial Sliding Scale -) 1 vial SQ ACHS [facility] PRN Reason: Protocol Last Admin: 05/28/16 12:43 Dose: 8 units Levothyroxine Sodium (Synthroid -) 50 mcg PO DAILY@0700 [facility] Last Admin: 05/28/16 06:15 Dose: 50 mcg Metoprolol Succinate (Toprol Xl -) 25 mg PO BID [facility] Last Admin: 05/28/16 10:43 Dose: 25 mg Multivitamins/Minerals/Vitamin C (Tab-A-Vit -) 1 tab PO DAILY [facility] Last Admin: 05/28/16 10:43 Dose: 1 tab Ranitidine HCl (Zantac -) 150 mg PO BID [facility] Last Admin: 05/28/16 10:43 Dose: 150 mg Torsemide (Demadex -) 20 mg PO DAILY [facility] Last Admin: 05/28/16 10:42 Dose: 20 mg Zinc Sulfate (Orazinc -) 220 mg PO DAILY [facility] Last Admin: 05/28/16 10:43 Dose: 220 mg - Objective Vital Signs: Vital Signs Temperature 97.5 F L 05/28/16 08:51 Pulse Rate 62 05/28/16 08:51 Respiratory Rate 18 05/28/16 08:51 Blood Pressure 122/68 05/28/16 08:51 O2 Sat by Pulse Oximetry (%) 94 L 05/28/16 09:00 Constitutional: Yes: No Distress Eyes: Yes: WNL HENT: Yes: WNL Neck: Yes: WNL Cardiovascular: Yes: Pulse Irregular Respiratory: Yes: WNL Gastrointestinal: Yes: WNL Genitourinary: Yes: WNL Musculoskeletal: Yes: Joint Swelling, Muscle Weakness Extremities: Yes: Erythema Edema: Yes Edema: LLE: 2+, RLE: 2+ Peripheral Pulses WNL: Yes Integumentary: Yes: Pressure Ulcer, Skin Tear, Venous Stasis Changes Wound/Incision: Yes: Dressing Dry and Intact, Draining, Excoriated Neurological: Yes: Pre-Existing Deficit ...Motor Strength: LLE, RLE Psychiatric: Yes: WNL Labs: CBC, BMP 05/27/16 06:50 05/28/16 06:15 INR, PTT INR 2.10 (0.82-1.09) H D 05/27/16 08:35 Problem List - Problems (1) Pressure ulcer of lower extremity, stage 1 Code(s): L89.891 - PRESSURE ULCER OF OTHER SITE, STAGE 1 (2) Sepsis Code(s): A41.9 - SEPSIS, UNSPECIFIED ORGANISM Qualifiers: Sepsis type: sepsis due to unspecified organism Qualified Code(s): A41.9 - Sepsis, unspecified organism (3) Abscess Code(s): L02.91 - CUTANEOUS ABSCESS, UNSPECIFIED (4) Acute on chronic renal failure Code(s): N17.9 - ACUTE KIDNEY FAILURE, UNSPECIFIED N18.9 - CHRONIC KIDNEY DISEASE, UNSPECIFIED (5) Anemia Code(s): D64.9 - ANEMIA, UNSPECIFIED Qualifiers: Other causes of anemia: chronic disease, kidney (6) Anticoagulated by anticoagulation treatment Code(s): Z79.01 - [employer] (CURRENT) USE OF ANTICOAGULANTS (7) Atrial flutter Code(s): I48.92 - UNSPECIFIED ATRIAL FLUTTER (8) COPD (chronic obstructive pulmonary disease) Code(s): J44.9 - CHRONIC OBSTRUCTIVE PULMONARY DISEASE, UNSPECIFIED (9) Congestive heart failure (CHF) Code(s): I50.9 - HEART FAILURE, UNSPECIFIED Qualifiers: Congestive heart failure type: systolic Congestive heart failure chronicity: chronic Qualified Code(s): I50.22 - Chronic systolic (congestive ) heart failure (10) DMII (diabetes mellitus, type 2) Code(s): E11.9 - TYPE 2 DIABETES MELLITUS WITHOUT COMPLICATIONS Qualifiers: Diabetes mellitus complication detail: with other kidney complication (11) Dyspnea Code(s): R06.00 - DYSPNEA, UNSPECIFIED Qualifiers: Dyspnea type: shortness of breath Qualified Code(s): R06.02 - Shortness of breath (12) HTN (hypertension) Code(s): I10 - ESSENTIAL (PRIMARY) HYPERTENSION Qualifiers: Hypertension type: essential hypertension Qualified Code(s): I10 - Essential (primary) hypertension (13) Leukocytosis Code(s): D72.829 - ELEVATED WHITE BLOOD CELL COUNT, UNSPECIFIED Qualifiers: Leukocytosis type: unspecified Qualified Code(s): D72.829 - Elevated white blood cell count, unspecified (14) Unsteady gait Code(s): R26.81 - UNSTEADINESS ON FEET (15) Weakness of both lower limbs Code(s): M62.81 - MUSCLE WEAKNESS (GENERALIZED) Assessment/Plan WOUND VAC LEFT UPPER BACK WOUND REMOVED IV ABX VASC SX LEG EDEMA DRESSING PRESENT CONTINUE AC FOR ATRIAL FLUTTER CARDIOLOGY EVAL APPRECIATED 02 SUPPOER PRN ADA WITH BGM CHECK
[2016-05-28] MEDS ORDERED: TORSEMIDE 20 MG TABLET (FP) PO ONE ×3 (15:46→18:15)
--- NOTE | 2016-05-28 15:46 | PN ---
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, Physician History of Present Illness: Pt seen and examined at bedside. He complains of lower extremity edema. He denies shortness of breath. - Current Medication List Current Medications: Active Medications Acetaminophen (Tylenol -) 650 mg PO Q6H PRN PRN Reason: FEVER OR PAIN Last Admin: 05/25/16 22:35 Dose: 650 mg Albuterol/Ipratropium (Duoneb -) 1 amp NEB Q6H PRN PRN Reason: SHORTNESS OF BREATH Amiodarone HCl (Cordarone -) 200 mg PO DAILY [facility] Last Admin: 05/28/16 10:42 Dose: 200 mg Apixaban (Eliquis -) 5 mg PO BID [facility] Last Admin: 05/28/16 10:42 Dose: 5 mg Ascorbic Acid (Vitamin C -) 500 mg PO DAILY [facility] Last Admin: 05/28/16 10:43 Dose: 500 mg Brimonidine Tartrate (Alphagan 0.2% -) 1 drop OU BID [facility] Last Admin: 05/28/16 10:00 Dose: 1 drop Folic Acid (Folic Acid -) 1 mg PO DAILY [facility] Last Admin: 05/28/16 10:42 Dose: 1 mg Ceftazidime 1 gm/ Dextrose 50 mls @ 100 mls/hr IVPB BID [facility] Last Admin: 05/28/16 10:42 Dose: 100 mls/hr Insulin Aspart (Novolog Vial Sliding Scale -) 1 vial SQ ACHS [facility] PRN Reason: Protocol Last Admin: 05/28/16 12:43 Dose: 8 units Levothyroxine Sodium (Synthroid -) 50 mcg PO DAILY@0700 [facility] Last Admin: 05/28/16 06:15 Dose: 50 mcg Metoprolol Succinate (Toprol Xl -) 25 mg PO BID [facility] Last Admin: 05/28/16 10:43 Dose: 25 mg Multivitamins/Minerals/Vitamin C (Tab-A-Vit -) 1 tab PO DAILY [facility] Last Admin: 05/28/16 10:43 Dose: 1 tab Ranitidine HCl (Zantac -) 150 mg PO BID [facility] Last Admin: 05/28/16 10:43 Dose: 150 mg Torsemide (Demadex -) 20 mg PO DAILY [facility] Last Admin: 05/28/16 10:42 Dose: 20 mg Zinc Sulfate (Orazinc -) 220 mg PO DAILY [facility] Last Admin: 05/28/16 10:43 Dose: 220 mg - Objective Vital Signs: Vital Signs Temperature 97.5 F L 05/28/16 08:51 Pulse Rate 62 05/28/16 08:51 Respiratory Rate 18 05/28/16 08:51 Blood Pressure 122/68 05/28/16 08:51 O2 Sat by Pulse Oximetry (%) 94 L 05/28/16 09:00 Constitutional: Yes: Calm Eyes: Yes: Conjunctiva Clear HENT: Yes: Atraumatic Neck: Yes: Supple Cardiovascular: Yes: S1, S2 Respiratory: Yes: CTA Bilaterally Gastrointestinal: Yes: Soft, Abdomen, Obese Genitourinary: Yes: WNL Musculoskeletal: Yes: WNL Edema: Yes Edema: LLE: 2+, RLE: 2+ Neurological: Yes: Oriented Psychiatric: Yes: Oriented Labs: CBC, BMP 05/27/16 06:50 05/28/16 06:15 INR, PTT INR 2.10 (0.82-1.09) H D 05/27/16 08:35 Problem List - Problems (1) Anemia Code(s): D64.9 - ANEMIA, UNSPECIFIED Qualifiers: Other causes of anemia: chronic disease, kidney (2) CKD (chronic kidney disease), stage II Code(s): N18.2 - CHRONIC KIDNEY DISEASE, STAGE 2 (MILD) (3) COPD (chronic obstructive pulmonary disease) Code(s): J44.9 - CHRONIC OBSTRUCTIVE PULMONARY DISEASE, UNSPECIFIED (4) DMII (diabetes mellitus, type 2) Code(s): E11.9 - TYPE 2 DIABETES MELLITUS WITHOUT COMPLICATIONS Qualifiers: Diabetes mellitus complication detail: with other kidney complication (5) HTN (hypertension) Code(s): I10 - ESSENTIAL (PRIMARY) HYPERTENSION Qualifiers: Hypertension type: essential hypertension Qualified Code(s): I10 - Essential (primary) hypertension Assessment/Plan Current Medications Generic Name Dose Route Start Last Admin Trade Name Freq PRN Reason Stop Dose Admin Acetaminophen 650 mg 05/23/16 22:34 05/25/16 22:35 Tylenol - PO 650 mg Q6H PRN Administration FEVER OR PAIN Albuterol/Ipratropium 1 amp 05/23/16 22:34 Duoneb - NEB Q6H PRN SHORTNESS OF BREATH Amiodarone HCl 200 mg 05/24/16 10:00 05/28/16 10:42 Cordarone - PO 200 mg DAILY [facility] Administration Apixaban 5 mg 05/24/16 10:00 05/28/16 10:42 Eliquis - PO 5 mg BID [facility] Administration Ascorbic Acid 500 mg 05/24/16 10:00 05/28/16 10:43 Vitamin C - PO 500 mg DAILY [facility] Administration Brimonidine Tartrate 1 drop 05/24/16 10:00 05/28/16 10:00 Alphagan 0.2% - OU 1 drop BID [facility] Administration Folic Acid 1 mg 05/24/16 10:00 05/28/16 10:42 Folic Acid - PO 1 mg DAILY [facility] Administration Ceftazidime 1 gm/ Dextrose 50 mls @ 100 mls/hr 05/27/16 12:30 05/28/16 10:42 IVPB 100 mls/hr BID [facility] Administration Insulin Aspart 1 vial 05/24/16 07:00 05/28/16 12:43 Novolog Vial Sliding Scale - SQ 8 units ACHS [facility] Administration Protocol Levothyroxine Sodium 50 mcg 05/24/16 07:00 05/28/16 06:15 Synthroid - PO 50 mcg DAILY@0700 [facility] Administration Metoprolol Succinate 25 mg 05/24/16 10:00 05/28/16 10:43 Toprol Xl - PO 25 mg BID [facility] Administration Multivitamins/Minerals/Vitamin C 1 tab 05/24/16 10:00 05/28/16 10:43 Tab-A-Vit - PO 1 tab DAILY [facility] Administration Ranitidine HCl 150 mg 05/24/16 10:00 05/28/16 10:43 Zantac - PO 150 mg BID [facility] Administration Torsemide 20 mg 05/26/16 13:00 05/28/16 10:42 Demadex - PO 20 mg DAILY [facility] Administration Zinc Sulfate 220 mg 05/24/16 10:00 05/28/16 10:43 Orazinc - PO 220 mg DAILY [facility] Administration Impression 1. CASE on CKD 2. sepsis 3. cellulitis/abscess of back 4. CHF 5. hypothyroidism 6. hyperlipidemia 7. COPD 8. htn Plan - increase torsemide to 40 mg - will give another 20 mg now - wound care to legs - cont abx - repeat labs in am - will follow Dr Martinez
[2016-05-29] MEDS: INSULIN SLIDING SCALE (NOVOLOG) 1 VIAL SQ SCH ×4 (06:09→21:05)
[2016-05-29] MEDS: LEVOTHYROXINE NA 50 MCG TABLET (FP) PO SCH (06:10)
[2016-05-29 08:07] LABS: CALCIUM 7.6 mg/dL (8.5-10.1); CREATININE 2.8 mg/dL (0.7-1.3)
[2016-05-29] MEDS ORDERED: PT OWN MED DRAWER 7, Y5N ONE (08:58)
[2016-05-29] MEDS: AMIODARONE HCL 200 MG TABLET (FP) PO SCH (09:17)
[2016-05-29] MEDS: APIXABAN 5 MG TABLET PO SCH ×2 (09:18→21:06)
[2016-05-29] MEDS: TORSEMIDE 20 MG TABLET (FP) PO SCH (09:18)
[2016-05-29] MEDS: METOPROLOL SUCCINATE 25 MG TAB.SR.24H (FP) PO SCH ×2 (09:19→21:06)
[2016-05-29] MEDS: MULTIVITAMINS (DAILY MVI) TABLET (FP) PO SCH (09:19)
[2016-05-29] MEDS: ASCORBIC ACID 500 MG TABLET (FP) PO SCH (09:19)
[2016-05-29] MEDS: RANITIDINE HCL 150 MG TABLET (FP) PO SCH ×2 (09:19→21:06)
[2016-05-29] MEDS: FOLIC ACID 1 MG TABLET (FP) PO SCH (09:19)
[2016-05-29] MEDS: CEFTAZIDIME PENTAHYDRATE 1 GM in DEXTROSE 5%-WATER - 50 ML IVPB SCH (09:19)
[2016-05-29] MEDS: ZINC SULFATE 220 MG CAPSULE (FP) PO SCH (09:31)
[2016-05-29] MEDS: BRIMONIDINE TARTRATE 0.2% OPHTHALMIC 5 ML BOTTLE OU SCH ×2 (09:32→21:05)
--- NOTE | 2016-05-29 09:49 | CONS ---
INFECTIOUS DISEASE CONSULTATION REQUESTED BY: Davin Dee MD DATE OF CONSULTATION: DATE OF DICTATION: 05/28/2016 The patient is a 76-year-old man who was recently hospitalized at [facility] from April 10 to April 19. At that time, he was admitted with a large, foul- smelling, necrotic abscess on his left shoulder that he had had for many months. He had this drained. It ultimately grew anaerobes and he was treated with IV antibiotics, followed by oral Augmentin, and discharged to the [facility]. He is now readmitted because he has abnormal blood tests. He was noted at the [facility] to have an elevated white count and worsening renal function. He was transferred to the hospital and the emergency room. The elevated white count was confirmed at 25, 000. His creatinine was 3.9 and he had an elevated lactic acid level. He was admitted for further evaluation. His original lactic acid was 2.8 in the emergency room. He is currently awake and alert and he has no complaints. He thinks he has been living at home. He does not remember he has been in the [facility]. He denies complaints, but when you touch his legs, he notes that they are extremely painful, especially the right one, and he has had liquid draining from them for awhile. PAST MEDICAL HISTORY: Notable for congestive heart failure, non-insulin- dependent diabetes, chronic kidney disease, hypertension, and hypercholesterolemia. He recently had this abscess drained on his left shoulder. ALLERGIES: He has no known drug allergies. MEDICATIONS AT THE TIME OF ADMISSION: Included DuoNeb, Eliquis, vitamin C, Alphagan eye drops, folic acid, hydralazine, insulin, levothyroxine, metoprolol, multivitamins, Zantac, Demadex, Orazinc, and amiodarone. FAMILY HISTORY: Noncontributory. SOCIAL HISTORY: There is no history of any cigarette or substance use. Prior to the admission in March, he was living at home. REVIEW OF SYSTEMS: He notes he has pain in both his legs. He denies any fevers or chills, any nausea or vomiting, diarrhea or dysuria. PHYSICAL EXAMINATION: General: He is awake and alert. Vital signs: Temperature is 98; pulse is 65; blood pressure 108/70; respiratory rate is 20. HEENT: He is normocephalic. He is anicteric. Lungs: Clear to auscultation. Heart: Regular rate and rhythm. Abdomen: Soft. Nontender. Extremities: He has bilateral erythema of the legs. The right leg is larger than the left and is very tender to touch. They are erythematous. He has superficial abrasions of both his legs that are weeping. LABORATORIES: Notable for a white count of 25.6, hemoglobin 11.9, platelets are 238; he has 14% bands. INR is 3.9. His BUN is 91 and creatinine is 3.9. His lactic acid is 2.82. Urinalysis had 1 white cell. Chest x-ray was notable for no interval change or acute disease. In summary, this is a 76-year-old man with sepsis; bilateral lower extremity cellulitis, right greater than left; lactic acidosis with leukocytosis; acute kidney injury in the setting of chronic kidney disease; positive troponins; history of shoulder abscess. He received vancomycin in the emergency room. Would check levels and redose. Would continue Zosyn adjusted for his acute kidney injury. Follow up cultures and duplex of his right lower extremity. Further recommendations to follow, based on his clinical course. orinally seen 06/04 and consult dictated then- this is a repeat dictation Rox [id number] MTDD
--- NOTE | 2016-05-29 10:03 | PN ---
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 (short form) - Note 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: s: no cp sob palps dizzy o: Vital Signs Period Temp Pulse Resp BP Sys/Hubbard Pulse Ox Last 24 Hr 97.4 F-97.8 F 54-60 18-20 98-108/55-63 94 nad, no jvd rrr s1s2 no mrg cta bl nl eff aaox3 trace edema, no c/c abd nt nd pos bs no jaundice diaphoresis Current Medications Generic Name Dose Route Start Last Admin Trade Name Freq PRN Reason Stop Dose Admin Acetaminophen 650 mg 05/23/16 22:34 05/25/16 22:35 Tylenol - PO 650 mg Q6H PRN Administration FEVER OR PAIN Albuterol/Ipratropium 1 amp 05/23/16 22:34 Duoneb - NEB Q6H PRN SHORTNESS OF BREATH Amiodarone HCl 200 mg 05/24/16 10:00 05/29/16 09:17 Cordarone - PO 200 mg DAILY [facility] Administration Apixaban 5 mg 05/24/16 10:00 05/29/16 09:18 Eliquis - PO 5 mg BID [facility] Administration Ascorbic Acid 500 mg 05/24/16 10:00 05/29/16 09:19 Vitamin C - PO 500 mg DAILY [facility] Administration Brimonidine Tartrate 1 drop 05/24/16 10:00 05/29/16 09:32 Alphagan 0.2% - OU 1 drop BID [facility] Administration Folic Acid 1 mg 05/24/16 10:00 05/29/16 09:19 Folic Acid - PO 1 mg DAILY [facility] Administration Ceftazidime 1 gm/ Dextrose 50 mls @ 100 mls/hr 05/27/16 12:30 05/29/16 09:19 IVPB 100 mls/hr BID [facility] Administration Insulin Aspart 1 vial 05/24/16 07:00 05/29/16 06:09 Novolog Vial Sliding Scale - SQ Not Given ACHS [facility] Protocol Levothyroxine Sodium 50 mcg 05/24/16 07:00 05/29/16 06:10 Synthroid - PO 50 mcg DAILY@0700 [facility] Administration Metoprolol Succinate 25 mg 05/24/16 10:00 05/29/16 09:19 Toprol Xl - PO 25 mg BID [facility] Administration Multivitamins/Minerals/Vitamin C 1 tab 05/24/16 10:00 05/29/16 09:19 Tab-A-Vit - PO 1 tab DAILY [facility] Administration Ranitidine HCl 150 mg 05/24/16 10:00 05/29/16 09:19 Zantac - PO 150 mg BID [facility] Administration Torsemide 40 mg 05/29/16 10:00 05/29/16 09:18 Demadex - PO 40 mg DAILY [facility] Administration Zinc Sulfate 220 mg 05/24/16 10:00 05/29/16 09:31 Orazinc - PO 220 mg DAILY [facility] Administration CBC, BMP 05/27/16 06:50 05/29/16 06:00 mibi 10/2014: no ischemia, sev reduced lvef echo 10/2014 ([facility] [place]): definity used. mild lve, lvef 45%, nl rv, mild AR, sev lae , nl rvsp echo 03/2016: severely decreased LV fn (global), nl rv. 1+ AR/MR. Mod MAC. 1+ TR. rvsp 30-40 EKG 05/23/16: sr, nl intervals, lat twis, no st changes, similar to priors a/p: 75 m hx non obs cad (cath 10/2014: only mild disease RCA), remote [place] ( mentioned in prior charts, no further details, pt unclear of hx), syst chf (NICM , mild dec lvef), htn, copd, dm, ckd (cr 2's), aflutter on eliquis, recent admit for subcutaneous abscess/sepsis/CASE sent to SNF now sent from [facility] for case and elevated wbcs. aflutter - in sinus here - cont amiodarone and metoprolol - on eliquis, hgb stable. NICM, chronic syst chf: - rpt echo 03/2016 with worsened LV function. seeing cardiology in dr boateng's office--will follow up there as outpatient for evaluation of etiology of worsened LV function once acute issues resolved (? med nonadherence--pt previously with confusion/med issues) - con't metoprolol - resume hydralazine 10 bid and isordil 20 bid once sepsis resolves and bp stable - on torsemide 40 qd at home--held here for CASE--now that cr back to baseline has been resumed. - not on NORMAN/ARB previously, due to advanced CKD and labile cr acute on chronic ckd - held diuretics initially and cr back to baseline, now back on torsemide anemia: -stable here -seen by GI in past: has h/o gastric ulcers and diverticular bleeding in past, but no melena and guaiac neg here--i.e. no active GIB suspected HTN -bp on low side, likely from infection so holding hydralazine and isordil for now non-obstructive CAD - Not on statin - on AC subcutaneous abscess, s/p I and D 04/11, le cellulitis: - now returns with elevated wbc, worse cellulitis - abx per ID positive trop: -trop in intermediate range with flat trend, consistent with his prior baselines and with nl ck and no sig ecg changes. Not consistent with acs.
--- NOTE | 2016-05-29 10:55 | PN ---
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, Physician Chief Complaint: awake alert denies chest pain/sob c/o of weeping edema lower extremities - Current Medication List Current Medications: Active Medications Acetaminophen (Tylenol -) 650 mg PO Q6H PRN PRN Reason: FEVER OR PAIN Last Admin: 05/25/16 22:35 Dose: 650 mg Albuterol/Ipratropium (Duoneb -) 1 amp NEB Q6H PRN PRN Reason: SHORTNESS OF BREATH Amiodarone HCl (Cordarone -) 200 mg PO DAILY [facility] Last Admin: 05/29/16 09:17 Dose: 200 mg Apixaban (Eliquis -) 5 mg PO BID [facility] Last Admin: 05/29/16 09:18 Dose: 5 mg Ascorbic Acid (Vitamin C -) 500 mg PO DAILY [facility] Last Admin: 05/29/16 09:19 Dose: 500 mg Brimonidine Tartrate (Alphagan 0.2% -) 1 drop OU BID [facility] Last Admin: 05/29/16 09:32 Dose: 1 drop Folic Acid (Folic Acid -) 1 mg PO DAILY [facility] Last Admin: 05/29/16 09:19 Dose: 1 mg Ceftazidime 1 gm/ Dextrose 50 mls @ 100 mls/hr IVPB BID [facility] Last Admin: 05/29/16 09:19 Dose: 100 mls/hr Insulin Aspart (Novolog Vial Sliding Scale -) 1 vial SQ ACHS [facility] PRN Reason: Protocol Last Admin: 05/29/16 06:09 Dose: Not Given Levothyroxine Sodium (Synthroid -) 50 mcg PO DAILY@0700 [facility] Last Admin: 05/29/16 06:10 Dose: 50 mcg Metoprolol Succinate (Toprol Xl -) 25 mg PO BID [facility] Last Admin: 05/29/16 09:19 Dose: 25 mg Multivitamins/Minerals/Vitamin C (Tab-A-Vit -) 1 tab PO DAILY [facility] Last Admin: 05/29/16 09:19 Dose: 1 tab Ranitidine HCl (Zantac -) 150 mg PO BID [facility] Last Admin: 05/29/16 09:19 Dose: 150 mg Tamsulosin HCl (Flomax -) 0.4 mg PO [facility] Torsemide (Demadex -) 40 mg PO DAILY [facility] Last Admin: 05/29/16 09:18 Dose: 40 mg Zinc Sulfate (Orazinc -) 220 mg PO DAILY [facility] Last Admin: 05/29/16 09:31 Dose: 220 mg - Objective Vital Signs: Vital Signs Temperature 97.8 F 05/29/16 06:00 Pulse Rate 57 L 05/29/16 06:00 Respiratory Rate 20 05/29/16 06:00 Blood Pressure 103/63 05/29/16 06:00 O2 Sat by Pulse Oximetry (%) 94 L 05/28/16 20:00 Constitutional: Yes: Mild Distress Eyes: Yes: WNL HENT: Yes: WNL Neck: Yes: WNL Cardiovascular: Yes: Pulse Irregular Respiratory: Yes: WNL Gastrointestinal: Yes: WNL Genitourinary: Yes: WNL Musculoskeletal: Yes: Joint Swelling, Muscle Weakness Extremities: Yes: Erythema Edema: LLE: 2+, RLE: 2+ Peripheral Pulses WNL: Yes Integumentary: Yes: Erythema, Skin Tear, Venous Stasis Changes, Other Wound/Incision: Yes: Dressing Dry and Intact, Draining, Excoriated, Unapproximated, Other (WOUND ON LEFT UPPER BACK HEALING) Neurological: Yes: Pre-Existing Deficit, Unsteady Gait ...Motor Strength: LLE, RLE Psychiatric: Yes: WNL Labs: CBC, BMP 05/27/16 06:50 05/29/16 06:00 INR, PTT INR 2.10 (0.82-1.09) H D 05/27/16 08:35 Problem List - Problems (1) Pressure ulcer of lower extremity, stage 1 Code(s): L89.891 - PRESSURE ULCER OF OTHER SITE, STAGE 1 (2) Sepsis Code(s): A41.9 - SEPSIS, UNSPECIFIED ORGANISM Qualifiers: Sepsis type: sepsis due to unspecified organism Qualified Code(s): A41.9 - Sepsis, unspecified organism (3) Abscess Code(s): L02.91 - CUTANEOUS ABSCESS, UNSPECIFIED (4) Acute on chronic renal failure Code(s): N17.9 - ACUTE KIDNEY FAILURE, UNSPECIFIED N18.9 - CHRONIC KIDNEY DISEASE, UNSPECIFIED (5) Anemia Code(s): D64.9 - ANEMIA, UNSPECIFIED Qualifiers: Other causes of anemia: chronic disease, kidney (6) Anticoagulated by anticoagulation treatment Code(s): Z79.01 - HALFWAY (CURRENT) USE OF ANTICOAGULANTS (7) Atrial flutter Code(s): I48.92 - UNSPECIFIED ATRIAL FLUTTER (8) COPD (chronic obstructive pulmonary disease) Code(s): J44.9 - CHRONIC OBSTRUCTIVE PULMONARY DISEASE, UNSPECIFIED (9) Congestive heart failure (CHF) Code(s): I50.9 - HEART FAILURE, UNSPECIFIED Qualifiers: Congestive heart failure type: systolic Congestive heart failure chronicity: chronic Qualified Code(s): I50.22 - Chronic systolic (congestive ) heart failure (10) DMII (diabetes mellitus, type 2) Code(s): E11.9 - TYPE 2 DIABETES MELLITUS WITHOUT COMPLICATIONS Qualifiers: Diabetes mellitus complication detail: with other kidney complication (11) Dyspnea Code(s): R06.00 - DYSPNEA, UNSPECIFIED Qualifiers: Dyspnea type: shortness of breath Qualified Code(s): R06.02 - Shortness of breath (12) HTN (hypertension) Code(s): I10 - ESSENTIAL (PRIMARY) HYPERTENSION Qualifiers: Hypertension type: essential hypertension Qualified Code(s): I10 - Essential (primary) hypertension (13) Leukocytosis Code(s): D72.829 - ELEVATED WHITE BLOOD CELL COUNT, UNSPECIFIED Qualifiers: Leukocytosis type: unspecified Qualified Code(s): D72.829 - Elevated white blood cell count, unspecified (14) Unsteady gait Code(s): R26.81 - UNSTEADINESS ON FEET (15) Weakness of both lower limbs Code(s): M62.81 - MUSCLE WEAKNESS (GENERALIZED) Assessment/Plan WOUND VAC LEFT UPPER BACK WOUND REMOVED DR HAY FOR EVAL (DR HAY IND IN PAST) IV ABX VASC SX LEG EDEMA DRESSING PRESENT CONTINUE AC FOR ATRIAL FLUTTER CARDIOLOGY EVAL APPRECIATED 02 SUPPOER PRN ADA WITH BGM CHECK
--- NOTE | 2016-05-29 13:58 | PN ---
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 (short form) - Note 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: ID Vancomycin and Zosyn Selected Entries 05/29/16 06:00 Temperature 97.8 F Pulse Rate 57 L Respiratory 20 Rate Blood Pressure 103/63 NAD Lower leg dressings bilaterally Microbiology 05/23/16 17:30 Urine - Urine Clean Catch Urine Culture - Final Enterobacter Cloacae 05/23/16 17:30 Blood - Peripheral Venous Blood Culture - Final Pseudo Fluorescens/Putida 05/23/16 17:30 Blood - Peripheral Venous Blood Culture - Final Pseudo Fluorescens/Putida Laboratory Tests 05/24/16 05/25/16 05/27/16 16:40 06:30 06:50 WBC 12.0 H Plt Count 189 BUN Vancomycin Trough 7.403 Random Vancomycin 14.876 05/29/16 06:00 WBC Plt Count BUN 74 H Vancomycin Trough Random Vancomycin Assessment Pseudo bacteremia Enterobacter in the urine Plan Substitute Ertepenem to treat above
--- NOTE | 2016-05-29 15:12 | CONSULT ---
Consult Consult Specialty:: Surgery Reason for Consultation:: Evaluation of left shoulder wound - History of Present Illness History of Present Illness: 76 male s/p incision and drainage of large left shoulder abscess cavity in the past Consulted to evaluate wound No pain - History Source History Provided By: Patient, Medical Record - Past Medical History Cardio/Vascular: Yes: CHF, HTN, Other (flutter) Pulmonary: Yes: COPD Gastrointestinal: Yes: Diverticulosis, Peptic Ulcer Disease Renal/: Yes: Renal Inusuff Endocrine: Yes: Diabetes Mellitus Additional Medical History: glaucoma - Past Surgical History Past Surgical History: Yes: Colonoscopy, Upper Endoscopy - Alcohol/Substance Use Hx Alcohol Use: No - Smoking History Smoking history: Never smoked Have you smoked in the past 12 months: No - Social History 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 Occupation: worked for the [employer] Medications - Allergies Allergies/Adverse Reactions: Allergies Allergy/AdvReac Type Severity Reaction Status Date / Time No Known Allergies Allergy Verified 05/23/16 23:31 - Home Medications Home Medications: Ambulatory Orders Acetaminophen [Tylenol .Regular Strength -] 650 mg PO Q6H PRN #0 tablet Albuterol 2.5/Ipratropium 0.5 [Duoneb -] 1 amp NEB Q6H PRN #0 amp 04/18/16 Apixaban [Eliquis -] 5 mg PO BID tablet 04/18/16 Ascorbic Acid [Vitamin C -] 500 mg PO DAILY tablet 04/18/16 Brimonidine Tartrate [Alphagan 0.2% -] 1 drop OU BID drops 04/18/16 Folic Acid - 1 mg PO DAILY tablet 04/18/16 Hydralazine HCl [Apresoline -] 10 mg PO BID tablet 04/18/16 Insulin Sliding Scale [Novolog Vial Sliding Scale -] 1 vial SQ ACHS units 04/18 Isosorbide Dinitrate [Isordil -] 20 mg PO BIDISORDIL tablet 04/18/16 Levothyroxine [Synthroid -] 50 mcg PO DAILY@0700 tablet 04/18/16 Metoprolol Succinate [Toprol XL -] 25 mg PO BID tab.sr.24h 04/18/16 Multivitamins [Multivit ([facility] Formulary)] 1 tab PO DAILY tab 04/18/16 Ranitidine [Zantac -] 150 mg PO BID tablet 04/18/16 Torsemide [Demadex -] 40 mg PO DAILY tablet 04/18/16 Zinc Sulfate [Orazinc -] 220 mg PO DAILY capsule 04/18/16 Amiodarone HCl [Cordarone -] 200 mg PO DAILY 05/23/16 Family Disease History - Family Disease History Family Disease History: Diabetes: Father Review of Systems - Review of Systems Integumentary: reports: Wound (No pain) Physical Exam Vital Signs: Vital Signs Temperature 97.4 F L 05/29/16 14:00 Pulse Rate 55 L 05/29/16 14:00 Respiratory Rate 18 05/29/16 14:00 Blood Pressure 91/54 05/29/16 14:00 O2 Sat by Pulse Oximetry (%) 97 05/29/16 09:00 Wound/Incision: Yes: Other (Left shoulder- granulating well, no discharge, some tunneling at inferior aspect) Labs: CBC, BMP 05/27/16 06:50 05/29/16 06:00 Problem List - Problems (1) Wound of left shoulder Code(s): S41.002A - UNSPECIFIED OPEN WOUND OF LEFT SHOULDER, INITIAL ENCOUNTER Qualifiers: Encounter type: subsequent encounter Qualified Code(s): S41.002D - Unspecified open wound of left shoulder, subsequent encounter Assessment/Plan Left shoulder wound- healing well Continue wet to dry dressings No debridement or further surgical intervention needed Thank you
[2016-05-29] MEDS: ERTAPENEM SODIUM 0.5 GM in SODIUM CHLORIDE 50 ML IVPB SCH (16:26)
--- NOTE | 2016-05-29 18:47 | PN ---
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, Physician Chief Complaint: Azotemia improved on the diuretic therapy No complaints offered - Current Medication List Current Medications: Active Medications Acetaminophen (Tylenol -) 650 mg PO Q6H PRN PRN Reason: FEVER OR PAIN Last Admin: 05/25/16 22:35 Dose: 650 mg Albuterol/Ipratropium (Duoneb -) 1 amp NEB Q6H PRN PRN Reason: SHORTNESS OF BREATH Amiodarone HCl (Cordarone -) 200 mg PO DAILY [facility] Last Admin: 05/29/16 09:17 Dose: 200 mg Apixaban (Eliquis -) 5 mg PO BID [facility] Last Admin: 05/29/16 09:18 Dose: 5 mg Ascorbic Acid (Vitamin C -) 500 mg PO DAILY [facility] Last Admin: 05/29/16 09:19 Dose: 500 mg Brimonidine Tartrate (Alphagan 0.2% -) 1 drop OU BID [facility] Last Admin: 05/29/16 09:32 Dose: 1 drop Folic Acid (Folic Acid -) 1 mg PO DAILY [facility] Last Admin: 05/29/16 09:19 Dose: 1 mg Ertapenem 0.5 gm/ Sodium (Chloride) 50 mls @ 50 mls/hr IVPB DAILY [facility] PRN Reason: Protocol Last Admin: 05/29/16 16:26 Dose: 50 mls/hr Insulin Aspart (Novolog Vial Sliding Scale -) 1 vial SQ ACHS [facility] PRN Reason: Protocol Last Admin: 05/29/16 16:26 Dose: Not Given Levothyroxine Sodium (Synthroid -) 50 mcg PO DAILY@0700 [facility] Last Admin: 05/29/16 06:10 Dose: 50 mcg Metoprolol Succinate (Toprol Xl -) 25 mg PO BID [facility] Last Admin: 05/29/16 09:19 Dose: 25 mg Multivitamins/Minerals/Vitamin C (Tab-A-Vit -) 1 tab PO DAILY [facility] Last Admin: 05/29/16 09:19 Dose: 1 tab Ranitidine HCl (Zantac -) 150 mg PO BID [facility] Last Admin: 05/29/16 09:19 Dose: 150 mg Tamsulosin HCl (Flomax -) 0.4 mg PO [facility] Torsemide (Demadex -) 40 mg PO DAILY [facility] Last Admin: 05/29/16 09:18 Dose: 40 mg Zinc Sulfate (Orazinc -) 220 mg PO DAILY [facility] Last Admin: 05/29/16 09:31 Dose: 220 mg - Objective Vital Signs: Vital Signs Temperature 97.6 F 05/29/16 17:32 Pulse Rate 57 L 05/29/16 17:32 Respiratory Rate 18 05/29/16 17:32 Blood Pressure 110/64 05/29/16 17:32 O2 Sat by Pulse Oximetry (%) 97 05/29/16 09:00 Constitutional: Yes: No Distress Cardiovascular: Yes: S1, S2 Respiratory: Yes: CTA Bilaterally Gastrointestinal: Yes: Normal Bowel Sounds, Soft. No: Tenderness, Rebound Edema: (LE edema with dressings i) Integumentary: Yes: Other (Left posterior shoulder infection has a clean base) Labs: CBC, BMP 05/27/16 06:50 05/29/16 06:00 INR, PTT INR 2.10 (0.82-1.09) H D 05/27/16 08:35 Assessment/Plan Impression 1. CASE on CKD 2. Sepsis 3. Cellulitis/abscess of back 4. CHF 5. Hypothyroidism 6. Hyperlipidemia 7. COPD 8. Htn Plan Continue to diurese on the increased Torsemide Rpt labs in am Dr Camp
[2016-05-29] MEDS: TAMSULOSIN HCL 0.4 MG CAP.ER.24H (FP) PO SCH (21:06)
[2016-05-30] MEDS: INSULIN SLIDING SCALE (NOVOLOG) 1 VIAL SQ SCH ×4 (06:08→21:37)
[2016-05-30] MEDS: LEVOTHYROXINE NA 50 MCG TABLET (FP) PO SCH (06:08)
[2016-05-30 08:03] LABS: MCH 28.9 pg (25.7-33.7); MEAN CELL VOLUME 90.4 fl (80-96); MEAN PLT VOLUME 9.6 fl (7.5-11.1); PLATELET COUNT 178 K/MM3 (134-434); RDW 18.7 % (11.9-15.9); WHITE BLOOD COUNT 7.8 K/mm3 (4.0-10.0)
[2016-05-30 08:52] LABS: CREATININE 2.7 mg/dL (0.7-1.3)
[2016-05-30] MEDS ORDERED: PT OWN MED DRAWER 7, Y5N ONE ×3 (09:45→20:24)
[2016-05-30] MEDS: RANITIDINE HCL 150 MG TABLET (FP) PO SCH ×2 (09:47→21:36)
[2016-05-30] MEDS: APIXABAN 5 MG TABLET PO SCH ×2 (09:47→21:37)
[2016-05-30] MEDS: TORSEMIDE 20 MG TABLET (FP) PO SCH (09:47)
[2016-05-30] MEDS: ZINC SULFATE 220 MG CAPSULE (FP) PO SCH (09:47)
[2016-05-30] MEDS: MULTIVITAMINS (DAILY MVI) TABLET (FP) PO SCH (09:47)
[2016-05-30] MEDS: METOPROLOL SUCCINATE 25 MG TAB.SR.24H (FP) PO SCH ×2 (09:48→21:37)
[2016-05-30] MEDS: BRIMONIDINE TARTRATE 0.2% OPHTHALMIC 5 ML BOTTLE OU SCH ×2 (09:48→21:37)
[2016-05-30] MEDS: ASCORBIC ACID 500 MG TABLET (FP) PO SCH (09:48)
[2016-05-30] MEDS: AMIODARONE HCL 200 MG TABLET (FP) PO SCH (09:48)
[2016-05-30] MEDS: FOLIC ACID 1 MG TABLET (FP) PO SCH (09:48)
[2016-05-30] MEDS: ERTAPENEM SODIUM 0.5 GM in SODIUM CHLORIDE 50 ML IVPB SCH (09:52)
--- NOTE | 2016-05-30 10:08 | PN ---
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 (short form) - Note 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: s: no cp sob palps dizzy; +foot pain o: Vital Signs Period Temp Pulse Resp BP Sys/Hubbard Pulse Ox Last 24 Hr 97.3 F-97.9 F 55-69 18-20 91-110/54-65 97 nad, no jvd rrr s1s2 no mrg cta bl nl eff aaox3 trace edema, no c/c abd nt nd pos bs no jaundice diaphoresis Current Medications Generic Name Dose Route Start Last Admin Trade Name Freq PRN Reason Stop Dose Admin Acetaminophen 650 mg 05/23/16 22:34 05/25/16 22:35 Tylenol - PO 650 mg Q6H PRN Administration FEVER OR PAIN Albuterol/Ipratropium 1 amp 05/23/16 22:34 Duoneb - NEB Q6H PRN SHORTNESS OF BREATH Amiodarone HCl 200 mg 05/24/16 10:00 05/30/16 09:48 Cordarone - PO 200 mg DAILY [facility] Administration Apixaban 5 mg 05/24/16 10:00 05/30/16 09:47 Eliquis - PO 5 mg BID [facility] Administration Ascorbic Acid 500 mg 05/24/16 10:00 05/30/16 09:48 Vitamin C - PO 500 mg DAILY [facility] Administration Brimonidine Tartrate 1 drop 05/24/16 10:00 05/30/16 09:48 Alphagan 0.2% - OU 1 drop BID [facility] Administration Folic Acid 1 mg 05/24/16 10:00 05/30/16 09:48 Folic Acid - PO 1 mg DAILY [facility] Administration Ertapenem 0.5 gm/ Sodium 50 mls @ 50 mls/hr 05/29/16 14:15 05/30/16 09:52 Chloride IVPB 50 mls/hr DAILY [facility] Administration Protocol Insulin Aspart 1 vial 05/24/16 07:00 05/30/16 06:08 Novolog Vial Sliding Scale - SQ Not Given ACHS [facility] Protocol Levothyroxine Sodium 50 mcg 05/24/16 07:00 05/30/16 06:08 Synthroid - PO 50 mcg DAILY@0700 [facility] Administration Metoprolol Succinate 25 mg 05/24/16 10:00 05/30/16 09:48 Toprol Xl - PO 25 mg BID [facility] Administration Multivitamins/Minerals/Vitamin C 1 tab 05/24/16 10:00 05/30/16 09:47 Tab-A-Vit - PO 1 tab DAILY [facility] Administration Ranitidine HCl 150 mg 05/24/16 10:00 05/30/16 09:47 Zantac - PO 150 mg BID [facility] Administration Tamsulosin HCl 0.4 mg 05/29/16 22:00 05/29/16 21:06 Flomax - PO 0.4 mg HS [facility] Administration Torsemide 40 mg 05/29/16 10:00 05/30/16 09:47 Demadex - PO 40 mg DAILY [facility] Administration Zinc Sulfate 220 mg 05/24/16 10:00 05/30/16 09:47 Orazinc - PO 220 mg DAILY [facility] Administration CBC, BMP 05/30/16 05:35 05/30/16 05:35 mibi 10/2014: no ischemia, sev reduced lvef echo 10/2014 ([facility] [place]): definity used. mild lve, lvef 45%, nl rv, mild AR, sev lae , nl rvsp echo 03/2016: severely decreased LV fn (global), nl rv. 1+ AR/MR. Mod MAC. 1+ TR. rvsp 30-40 EKG 05/23/16: sr, nl intervals, lat twis, no st changes, similar to priors a/p: 75 m hx non obs cad (cath 10/2014: only mild disease RCA), remote MA ( mentioned in prior charts, no further details, pt unclear of hx), syst chf (NICM , mild dec lvef), htn, copd, dm, ckd (cr 2's), aflutter on eliquis, recent admit for subcutaneous abscess/sepsis/CASE sent to SNF now sent from dc for case and elevated wbcs. aflutter - in sinus here - cont amiodarone and metoprolol - on eliquis, hgb stable. NICM, chronic syst chf: - rpt echo 03/2016 with worsened LV function. seeing cardiology in dr boateng's office--will follow up there as outpatient for evaluation of etiology of worsened LV function once acute issues resolved (? med nonadherence--pt previously with confusion/med issues) - con't metoprolol - resume hydralazine 10 bid and isordil 20 bid once sepsis resolves and bp stable - on torsemide 40 qd at home--held here for CASE--now that cr back to baseline has been resumed. - not on NORMAN/ARB previously, due to advanced CKD and labile cr acute on chronic ckd - held diuretics initially and cr back to baseline, now back on torsemide, cr stable anemia: -stable here -seen by GI in past: has h/o gastric ulcers and diverticular bleeding in past, but no melena and guaiac neg here--i.e. no active GIB suspected HTN -bp on low side, likely from infection so holding hydralazine and isordil for now non-obstructive CAD - Not on statin - on AC subcutaneous abscess, s/p I and D 04/11, le cellulitis: - now returns with elevated wbc, worse cellulitis - abx per ID positive trop: -trop in intermediate range with flat trend, consistent with his prior baselines and with nl ck and no sig ecg changes. Not consistent with acs.
--- NOTE | 2016-05-30 11:34 | PN ---
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, Physician Chief Complaint: Pt in no distress Complained of cracked skin on the fingers Azotemia continues to improve slowly - Current Medication List Current Medications: Active Medications Acetaminophen (Tylenol -) 650 mg PO Q6H PRN PRN Reason: FEVER OR PAIN Last Admin: 05/25/16 22:35 Dose: 650 mg Albuterol/Ipratropium (Duoneb -) 1 amp NEB Q6H PRN PRN Reason: SHORTNESS OF BREATH Amiodarone HCl (Cordarone -) 200 mg PO DAILY [facility] Last Admin: 05/30/16 09:48 Dose: 200 mg Apixaban (Eliquis -) 5 mg PO BID [facility] Last Admin: 05/30/16 09:47 Dose: 5 mg Ascorbic Acid (Vitamin C -) 500 mg PO DAILY [facility] Last Admin: 05/30/16 09:48 Dose: 500 mg Brimonidine Tartrate (Alphagan 0.2% -) 1 drop OU BID [facility] Last Admin: 05/30/16 09:48 Dose: 1 drop Folic Acid (Folic Acid -) 1 mg PO DAILY [facility] Last Admin: 05/30/16 09:48 Dose: 1 mg Ertapenem 0.5 gm/ Sodium (Chloride) 50 mls @ 50 mls/hr IVPB DAILY [facility] PRN Reason: Protocol Last Admin: 05/30/16 09:52 Dose: 50 mls/hr Insulin Aspart (Novolog Vial Sliding Scale -) 1 vial SQ ACHS [facility] PRN Reason: Protocol Last Admin: 05/30/16 06:08 Dose: Not Given Levothyroxine Sodium (Synthroid -) 50 mcg PO DAILY@0700 [facility] Last Admin: 05/30/16 06:08 Dose: 50 mcg Metoprolol Succinate (Toprol Xl -) 25 mg PO BID [facility] Last Admin: 05/30/16 09:48 Dose: 25 mg Multivitamins/Minerals/Vitamin C (Tab-A-Vit -) 1 tab PO DAILY [facility] Last Admin: 05/30/16 09:47 Dose: 1 tab Ranitidine HCl (Zantac -) 150 mg PO BID [facility] Last Admin: 05/30/16 09:47 Dose: 150 mg Tamsulosin HCl (Flomax -) 0.4 mg PO HS [facility] Last Admin: 05/29/16 21:06 Dose: 0.4 mg Torsemide (Demadex -) 40 mg PO DAILY [facility] Last Admin: 05/30/16 09:47 Dose: 40 mg Zinc Sulfate (Orazinc -) 220 mg PO DAILY [facility] Last Admin: 05/30/16 09:47 Dose: 220 mg - Objective Vital Signs: Vital Signs Temperature 97.6 F 05/30/16 10:00 Pulse Rate 60 05/30/16 10:00 Respiratory Rate 18 05/30/16 10:00 Blood Pressure 101/54 05/30/16 10:00 O2 Sat by Pulse Oximetry (%) 92 L 05/30/16 09:00 Constitutional: Yes: No Distress Cardiovascular: Yes: S1, S2 Respiratory: Yes: CTA Bilaterally Gastrointestinal: Yes: Soft Genitourinary: No: Bladder Distention Edema: Yes Labs: CBC, BMP 05/30/16 05:35 05/30/16 05:35 INR, PTT INR 2.10 (0.82-1.09) H D 05/27/16 08:35 Assessment/Plan Impression 1. CASE on CKD 2. Sepsis 3. Cellulitis/abscess of back 4. CHF 5. Hypothyroidism 6. Hyperlipidemia 7. COPD 8. Htn Plan Continue with Torsemide for now and to reassess in am- May need to reduce dose or hold if the the serum Na decreases or Cr rises on the present dosage Rpt labs in am Dr Camp
--- NOTE | 2016-05-30 12:02 | PN ---
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, Physician Chief Complaint: AWAKE ALERT NAD - Current Medication List Current Medications: Active Medications Acetaminophen (Tylenol -) 650 mg PO Q6H PRN PRN Reason: FEVER OR PAIN Last Admin: 05/25/16 22:35 Dose: 650 mg Albuterol/Ipratropium (Duoneb -) 1 amp NEB Q6H PRN PRN Reason: SHORTNESS OF BREATH Amiodarone HCl (Cordarone -) 200 mg PO DAILY [facility] Last Admin: 05/30/16 09:48 Dose: 200 mg Apixaban (Eliquis -) 5 mg PO BID [facility] Last Admin: 05/30/16 09:47 Dose: 5 mg Ascorbic Acid (Vitamin C -) 500 mg PO DAILY [facility] Last Admin: 05/30/16 09:48 Dose: 500 mg Brimonidine Tartrate (Alphagan 0.2% -) 1 drop OU BID [facility] Last Admin: 05/30/16 09:48 Dose: 1 drop Collagenase (Santyl -) 1 applic TP DAILY [facility] Folic Acid (Folic Acid -) 1 mg PO DAILY [facility] Last Admin: 05/30/16 09:48 Dose: 1 mg Ertapenem 0.5 gm/ Sodium (Chloride) 50 mls @ 50 mls/hr IVPB DAILY [facility] PRN Reason: Protocol Last Admin: 05/30/16 09:52 Dose: 50 mls/hr Insulin Aspart (Novolog Vial Sliding Scale -) 1 vial SQ ACHS [facility] PRN Reason: Protocol Last Admin: 05/30/16 11:59 Dose: Not Given Levothyroxine Sodium (Synthroid -) 50 mcg PO DAILY@0700 [facility] Last Admin: 05/30/16 06:08 Dose: 50 mcg Metoprolol Succinate (Toprol Xl -) 25 mg PO BID [facility] Last Admin: 05/30/16 09:48 Dose: 25 mg Multivitamins/Minerals/Vitamin C (Tab-A-Vit -) 1 tab PO DAILY [facility] Last Admin: 05/30/16 09:47 Dose: 1 tab Ranitidine HCl (Zantac -) 150 mg PO BID [facility] Last Admin: 05/30/16 09:47 Dose: 150 mg Tamsulosin HCl (Flomax -) 0.4 mg PO HS [facility] Last Admin: 05/29/16 21:06 Dose: 0.4 mg Torsemide (Demadex -) 40 mg PO DAILY [facility] Last Admin: 05/30/16 09:47 Dose: 40 mg Zinc Sulfate (Orazinc -) 220 mg PO DAILY [facility] Last Admin: 05/30/16 09:47 Dose: 220 mg - Objective Vital Signs: Vital Signs Temperature 97.6 F 05/30/16 10:00 Pulse Rate 60 05/30/16 10:00 Respiratory Rate 18 05/30/16 10:00 Blood Pressure 101/54 05/30/16 10:00 O2 Sat by Pulse Oximetry (%) 92 L 05/30/16 09:00 Constitutional: Yes: No Distress Eyes: Yes: WNL HENT: Yes: WNL Neck: Yes: WNL Cardiovascular: Yes: Pulse Irregular Respiratory: Yes: WNL Gastrointestinal: Yes: WNL Genitourinary: Yes: WNL Musculoskeletal: Yes: Muscle Pain, Muscle Weakness Extremities: Yes: Erythema, Other Edema: Yes Edema: LLE: 2+, RLE: 2+ Peripheral Pulses WNL: Yes Wound/Incision: Yes: Draining Neurological: Yes: Pre-Existing Deficit ...Motor Strength: LLE, RLE Psychiatric: Yes: Other Labs: CBC, BMP 05/30/16 05:35 05/30/16 05:35 INR, PTT INR 2.10 (0.82-1.09) H D 05/27/16 08:35 Problem List - Problems (1) Pressure ulcer of lower extremity, stage 1 Code(s): L89.891 - PRESSURE ULCER OF OTHER SITE, STAGE 1 (2) Sepsis Code(s): A41.9 - SEPSIS, UNSPECIFIED ORGANISM Qualifiers: Sepsis type: sepsis due to unspecified organism Qualified Code(s): A41.9 - Sepsis, unspecified organism (3) Abscess Code(s): L02.91 - CUTANEOUS ABSCESS, UNSPECIFIED (4) Acute on chronic renal failure Code(s): N17.9 - ACUTE KIDNEY FAILURE, UNSPECIFIED N18.9 - CHRONIC KIDNEY DISEASE, UNSPECIFIED (5) Anemia Code(s): D64.9 - ANEMIA, UNSPECIFIED Qualifiers: Other causes of anemia: chronic disease, kidney (6) Anticoagulated by anticoagulation treatment Code(s): Z79.01 - SNF (CURRENT) USE OF ANTICOAGULANTS (7) Atrial flutter Code(s): I48.92 - UNSPECIFIED ATRIAL FLUTTER (8) COPD (chronic obstructive pulmonary disease) Code(s): J44.9 - CHRONIC OBSTRUCTIVE PULMONARY DISEASE, UNSPECIFIED (9) Congestive heart failure (CHF) Code(s): I50.9 - HEART FAILURE, UNSPECIFIED Qualifiers: Congestive heart failure type: systolic Congestive heart failure chronicity: chronic Qualified Code(s): I50.22 - Chronic systolic (congestive ) heart failure (10) DMII (diabetes mellitus, type 2) Code(s): E11.9 - TYPE 2 DIABETES MELLITUS WITHOUT COMPLICATIONS Qualifiers: Diabetes mellitus complication detail: with other kidney complication (11) Dyspnea Code(s): R06.00 - DYSPNEA, UNSPECIFIED Qualifiers: Dyspnea type: shortness of breath Qualified Code(s): R06.02 - Shortness of breath (12) HTN (hypertension) Code(s): I10 - ESSENTIAL (PRIMARY) HYPERTENSION Qualifiers: Hypertension type: essential hypertension Qualified Code(s): I10 - Essential (primary) hypertension (13) Leukocytosis Code(s): D72.829 - ELEVATED WHITE BLOOD CELL COUNT, UNSPECIFIED Qualifiers: Leukocytosis type: unspecified Qualified Code(s): D72.829 - Elevated white blood cell count, unspecified (14) Unsteady gait Code(s): R26.81 - UNSTEADINESS ON FEET (15) Weakness of both lower limbs Code(s): M62.81 - MUSCLE WEAKNESS (GENERALIZED) Assessment/Plan WOUND VAC LEFT UPPER BACK WOUND REMOVED DR HAY FOR EVAL (DR HAY IND IN PAST) IV ABX VASC SX LEG EDEMA DRESSING PRESENT CONTINUE AC FOR ATRIAL FLUTTER CARDIOLOGY EVAL APPRECIATED 02 SUPPOER PRN ADA WITH BGM CHECK
[2016-05-30] MEDS: COLLAGENASE CLOSTRIDIUM HIST. 30 GRAMS TUBE TP SCH (12:22)
--- NOTE | 2016-05-30 14:25 | PN ---
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 (short form) - Note 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: still with leg pain overall more alert Vital Signs Period Temp Pulse Resp BP Sys/Hubbard Pulse Ox Last 24 Hr 97.3 F-98.1 F 57-69 18-20 98-110/52-65 92-97 cor-rrr lungs clear abd soft,nt ext dressing intact less swelling, less erythema CBC, BMP 05/30/16 05:35 05/30/16 05:35 Microbiology 05/26/16 11:50 Blood - Peripheral Venous Blood Culture - Preliminary NO GROWTH OBTAINED AFTER 96 HOURS, INCUBATION TO CONTINUE FOR 1 DAYS. 05/26/16 11:15 Blood - Peripheral Venous Blood Culture - Preliminary NO GROWTH OBTAINED AFTER 96 HOURS, INCUBATION TO CONTINUE FOR 1 DAYS. 05/23/16 17:30 Blood - Peripheral Venous Blood Culture - Final Pseudo Fluorescens/Putida 05/23/16 17:30 Blood - Peripheral Venous Blood Culture - Final Pseudo Fluorescens/Putida 05/23/16 17:30 Urine - Urine Clean Catch Urine Culture - Final Enterobacter Cloacae sonogram noted ct scan abd/pelvis- no abscess Active Medications Acetaminophen (Tylenol -) 650 mg PO Q6H PRN PRN Reason: FEVER OR PAIN Last Admin: 05/25/16 22:35 Dose: 650 mg Albuterol/Ipratropium (Duoneb -) 1 amp NEB Q6H PRN PRN Reason: SHORTNESS OF BREATH Amiodarone HCl (Cordarone -) 200 mg PO DAILY [facility] Last Admin: 05/30/16 09:48 Dose: 200 mg Apixaban (Eliquis -) 5 mg PO BID [facility] Last Admin: 05/30/16 09:47 Dose: 5 mg Ascorbic Acid (Vitamin C -) 500 mg PO DAILY [facility] Last Admin: 05/30/16 09:48 Dose: 500 mg Brimonidine Tartrate (Alphagan 0.2% -) 1 drop OU BID [facility] Last Admin: 05/30/16 09:48 Dose: 1 drop Collagenase (Santyl -) 1 applic TP DAILY [facility] Last Admin: 05/30/16 12:22 Dose: Not Given Folic Acid (Folic Acid -) 1 mg PO DAILY [facility] Last Admin: 05/30/16 09:48 Dose: 1 mg Ertapenem 0.5 gm/ Sodium (Chloride) 50 mls @ 50 mls/hr IVPB DAILY [facility] PRN Reason: Protocol Last Admin: 05/30/16 09:52 Dose: 50 mls/hr Insulin Aspart (Novolog Vial Sliding Scale -) 1 vial SQ ACHS [facility] PRN Reason: Protocol Last Admin: 05/30/16 11:59 Dose: Not Given Levothyroxine Sodium (Synthroid -) 50 mcg PO DAILY@0700 [facility] Last Admin: 05/30/16 06:08 Dose: 50 mcg Metoprolol Succinate (Toprol Xl -) 25 mg PO BID [facility] Last Admin: 05/30/16 09:48 Dose: 25 mg Multivitamins/Minerals/Vitamin C (Tab-A-Vit -) 1 tab PO DAILY [facility] Last Admin: 05/30/16 09:47 Dose: 1 tab Ranitidine HCl (Zantac -) 150 mg PO BID [facility] Last Admin: 05/30/16 09:47 Dose: 150 mg Tamsulosin HCl (Flomax -) 0.4 mg PO HS [facility] Last Admin: 05/29/16 21:06 Dose: 0.4 mg Torsemide (Demadex -) 40 mg PO DAILY [facility] Last Admin: 05/30/16 09:47 Dose: 40 mg Zinc Sulfate (Orazinc -) 220 mg PO DAILY [facility] Last Admin: 05/30/16 09:47 Dose: 220 mg a/p pseudomonas flourescens/putida bacteremia -source his legs wbc finally normal today continue iv ertapenem through the weekend hopefully switch to po on Thursday ckd cad diabetes history of shoulder abscess
[2016-05-30] MEDS: TAMSULOSIN HCL 0.4 MG CAP.ER.24H (FP) PO SCH (21:36)
[2016-05-31] MEDS: LEVOTHYROXINE NA 50 MCG TABLET (FP) PO SCH (06:17)
[2016-05-31] MEDS: INSULIN SLIDING SCALE (NOVOLOG) 1 VIAL SQ SCH ×4 (06:17→22:28)
[2016-05-31 07:41] LABS: BASOPHIL 0.4 % (0-2.0); EOSINOPHIL 0.6 % (0-4.5); MCHC 32.5 g/dl (32.0-35.9); MEAN CELL VOLUME 89.2 fl (80-96); MEAN PLT VOLUME 9.2 fl (7.5-11.1); NEUTROPHILS 83.2 % (42.8-82.8); PLATELET COUNT 197 K/MM3 (134-434); RDW 18.2 % (11.9-15.9); WHITE BLOOD COUNT 7.4 K/mm3 (4.0-10.0)
--- NOTE | 2016-05-31 08:52 | PN ---
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, Physician History of Present Illness: ITCHING--CHRONIC----TROUBLE SLEEPING - Current Medication List Current Medications: Active Medications Acetaminophen (Tylenol -) 650 mg PO Q6H PRN PRN Reason: FEVER OR PAIN Last Admin: 05/25/16 22:35 Dose: 650 mg Albuterol/Ipratropium (Duoneb -) 1 amp NEB Q6H PRN PRN Reason: SHORTNESS OF BREATH Amiodarone HCl (Cordarone -) 200 mg PO DAILY [facility] Last Admin: 05/30/16 09:48 Dose: 200 mg Apixaban (Eliquis -) 5 mg PO BID [facility] Last Admin: 05/30/16 21:37 Dose: 5 mg Ascorbic Acid (Vitamin C -) 500 mg PO DAILY [facility] Last Admin: 05/30/16 09:48 Dose: 500 mg Brimonidine Tartrate (Alphagan 0.2% -) 1 drop OU BID [facility] Last Admin: 05/30/16 21:37 Dose: 1 drop Collagenase (Santyl -) 1 applic TP DAILY [facility] Last Admin: 05/30/16 12:22 Dose: Not Given Folic Acid (Folic Acid -) 1 mg PO DAILY [facility] Last Admin: 05/30/16 09:48 Dose: 1 mg Ertapenem 0.5 gm/ Sodium (Chloride) 50 mls @ 50 mls/hr IVPB DAILY [facility] PRN Reason: Protocol Last Admin: 05/30/16 09:52 Dose: 50 mls/hr Insulin Aspart (Novolog Vial Sliding Scale -) 1 vial SQ ACHS [facility] PRN Reason: Protocol Last Admin: 05/31/16 06:17 Dose: Not Given Levothyroxine Sodium (Synthroid -) 50 mcg PO DAILY@0700 [facility] Last Admin: 05/31/16 06:17 Dose: 50 mcg Metoprolol Succinate (Toprol Xl -) 25 mg PO BID [facility] Last Admin: 05/30/16 21:37 Dose: 25 mg Multivitamins/Minerals/Vitamin C (Tab-A-Vit -) 1 tab PO DAILY [facility] Last Admin: 05/30/16 09:47 Dose: 1 tab Ranitidine HCl (Zantac -) 150 mg PO BID [facility] Last Admin: 05/30/16 21:36 Dose: 150 mg Tamsulosin HCl (Flomax -) 0.4 mg PO HS [facility] Last Admin: 05/30/16 21:36 Dose: 0.4 mg Torsemide (Demadex -) 40 mg PO DAILY [facility] Last Admin: 05/30/16 09:47 Dose: 40 mg Zinc Sulfate (Orazinc -) 220 mg PO DAILY [facility] Last Admin: 05/30/16 09:47 Dose: 220 mg - Objective Vital Signs: Vital Signs Temperature 97.5 F L 05/31/16 06:00 Pulse Rate 68 05/31/16 06:00 Respiratory Rate 20 05/31/16 06:00 Blood Pressure 122/73 05/31/16 06:00 O2 Sat by Pulse Oximetry (%) 100 05/30/16 21:48 Cardiovascular: Yes: S1, S2 Respiratory: Yes: Regular, CTA Bilaterally Gastrointestinal: Yes: Normal Bowel Sounds, Soft Labs: CBC, BMP 05/31/16 06:00 INR, PTT INR 2.10 (0.82-1.09) H D 05/27/16 08:35 Problem List - Problems (1) Bacteremia Assessment/Plan: IV ABX PER ID FOLLOW LABS Code(s): R78.81 - BACTEREMIA (2) Pressure ulcer of lower extremity, stage 1 Assessment/Plan: WOUND CARE ABX Code(s): L89.891 - PRESSURE ULCER OF OTHER SITE, STAGE 1 (3) DMII (diabetes mellitus, type 2) Assessment/Plan: BGM WITH COVERAGE Code(s): E11.9 - TYPE 2 DIABETES MELLITUS WITHOUT COMPLICATIONS Qualifiers: Diabetes mellitus complication detail: with other kidney complication
[2016-05-31 08:53] LABS: CALCIUM 8.1 mg/dL (8.5-10.1); CREATININE 2.7 mg/dL (0.7-1.3)
[2016-05-31] MEDS ORDERED: PT OWN MED DRAWER 7, Y5N ONE (09:22)
[2016-05-31] MEDS: BRIMONIDINE TARTRATE 0.2% OPHTHALMIC 5 ML BOTTLE OU SCH ×2 (10:09→21:26)
[2016-05-31] MEDS: TORSEMIDE 20 MG TABLET (FP) PO SCH (10:10)
[2016-05-31] MEDS: ASCORBIC ACID 500 MG TABLET (FP) PO SCH (10:10)
[2016-05-31] MEDS: MULTIVITAMINS (DAILY MVI) TABLET (FP) PO SCH (10:10)
[2016-05-31] MEDS: APIXABAN 5 MG TABLET PO SCH ×2 (10:10→21:20)
[2016-05-31] MEDS: RANITIDINE HCL 150 MG TABLET (FP) PO SCH ×2 (10:11→21:22)
[2016-05-31] MEDS: ZINC SULFATE 220 MG CAPSULE (FP) PO SCH (10:11)
[2016-05-31] MEDS: ERTAPENEM SODIUM 0.5 GM in SODIUM CHLORIDE 50 ML IVPB SCH (10:11)
[2016-05-31] MEDS: FOLIC ACID 1 MG TABLET (FP) PO SCH (10:11)
[2016-05-31] MEDS: METOPROLOL SUCCINATE 25 MG TAB.SR.24H (FP) PO SCH ×2 (10:11→21:20)
[2016-05-31] MEDS: AMIODARONE HCL 200 MG TABLET (FP) PO SCH (10:11)
--- NOTE | 2016-05-31 11:16 | PN ---
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, Physician History of Present Illness: No events overnight Off tele - Current Medication List Current Medications: Active Medications Acetaminophen (Tylenol -) 650 mg PO Q6H PRN PRN Reason: FEVER OR PAIN Last Admin: 05/25/16 22:35 Dose: 650 mg Albuterol/Ipratropium (Duoneb -) 1 amp NEB Q6H PRN PRN Reason: SHORTNESS OF BREATH Amiodarone HCl (Cordarone -) 200 mg PO DAILY [facility] Last Admin: 05/31/16 10:11 Dose: 200 mg Apixaban (Eliquis -) 5 mg PO BID [facility] Last Admin: 05/31/16 10:10 Dose: 5 mg Ascorbic Acid (Vitamin C -) 500 mg PO DAILY [facility] Last Admin: 05/31/16 10:10 Dose: 500 mg Brimonidine Tartrate (Alphagan 0.2% -) 1 drop OU BID [facility] Last Admin: 05/31/16 10:09 Dose: 1 drop Collagenase (Santyl -) 1 applic TP DAILY [facility] Last Admin: 05/30/16 12:22 Dose: Not Given Diphenhydramine HCl (Benadryl -) 25 mg PO HS PRN PRN Reason: INSOMNIA Folic Acid (Folic Acid -) 1 mg PO DAILY [facility] Last Admin: 05/31/16 10:11 Dose: 1 mg Ertapenem 0.5 gm/ Sodium (Chloride) 50 mls @ 50 mls/hr IVPB DAILY [facility] PRN Reason: Protocol Last Admin: 05/31/16 10:11 Dose: 50 mls/hr Insulin Aspart (Novolog Vial Sliding Scale -) 1 vial SQ ACHS [facility] PRN Reason: Protocol Last Admin: 05/31/16 06:17 Dose: Not Given Levothyroxine Sodium (Synthroid -) 50 mcg PO DAILY@0700 [facility] Last Admin: 05/31/16 06:17 Dose: 50 mcg Metoprolol Succinate (Toprol Xl -) 25 mg PO BID [facility] Last Admin: 05/31/16 10:11 Dose: 25 mg Multivitamins/Minerals/Vitamin C (Tab-A-Vit -) 1 tab PO DAILY [facility] Last Admin: 05/31/16 10:10 Dose: 1 tab Ranitidine HCl (Zantac -) 150 mg PO BID [facility] Last Admin: 05/31/16 10:11 Dose: 150 mg Tamsulosin HCl (Flomax -) 0.4 mg PO HS [facility] Last Admin: 05/30/16 21:36 Dose: 0.4 mg Torsemide (Demadex -) 40 mg PO DAILY [facility] Last Admin: 05/31/16 10:10 Dose: 40 mg Zinc Sulfate (Orazinc -) 220 mg PO DAILY [facility] Last Admin: 05/31/16 10:11 Dose: 220 mg - Objective Vital Signs: Vital Signs Temperature 97.5 F L 05/31/16 10:00 Pulse Rate 66 05/31/16 10:00 Respiratory Rate 20 05/31/16 10:00 Blood Pressure 128/73 05/31/16 10:00 O2 Sat by Pulse Oximetry (%) 100 05/30/16 21:48 Constitutional: Yes: No Distress, Calm Eyes: Yes: WNL HENT: Yes: WNL Neck: Yes: WNL Cardiovascular: Yes: Regular Rate and Rhythm Respiratory: Yes: WNL Extremities: Yes: Other (Bilateral legs dressing intact) Edema: LLE: 3+, RLE: 3+ Labs: CBC, BMP 05/31/16 06:00 05/31/16 06:00 INR, PTT INR 2.10 (0.82-1.09) H D 05/27/16 08:35 Assessment/Plan a/p: 75 m hx non obs cad (cath 10/2014: only mild disease RCA), remote [place] ( mentioned in prior charts, no further details, pt unclear of hx), syst chf (NICM , mild dec lvef), htn, copd, dm, ckd (cr 2's), aflutter on eliquis, recent admit for subcutaneous abscess/sepsis/CASE sent to SNF now sent from [place] for case and elevated wbcs. aflutter - cont amiodarone and metoprolol - on eliquis, hgb stable. NICM, chronic syst chf: - rpt echo 03/2016 with worsened LV function. seeing cardiology in dr boateng's office--will follow up there as outpatient for evaluation of etiology of worsened LV function once acute issues resolved (? med nonadherence--pt previously with confusion/med issues) - con't metoprolol - will resume hydralazine 10 bid and isordil 20 bid once sepsis resolves and bp stable - on torsemide 40 qd at home--held here for CASE--now that cr back to baseline has been resumed. - not on NORMAN/ARB previously, due to advanced CKD and labile cr acute on chronic ckd - held diuretics initially and cr back to baseline, now back on torsemide, cr stable anemia: -stable here -seen by GI in past: has h/o gastric ulcers and diverticular bleeding in past, but no melena and guaiac neg here--i.e. no active GIB suspected HTN -bp better today, holding hydralazine and isordil for now non-obstructive CAD - Not on statin - on AC subcutaneous abscess, s/p I and D 04/11, le cellulitis: - now returns with elevated wbc, worse cellulitis - abx per ID positive trop: -trop in intermediate range with flat trend, consistent with his prior baselines and with nl ck and no sig ecg changes. Not consistent with acs.
--- NOTE | 2016-05-31 13:45 | PN ---
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, Physician Chief Complaint: Pt in no distress while OOB in the chair Cr and serum NA stable - Current Medication List Current Medications: Active Medications Acetaminophen (Tylenol -) 650 mg PO Q6H PRN PRN Reason: FEVER OR PAIN Last Admin: 05/25/16 22:35 Dose: 650 mg Albuterol/Ipratropium (Duoneb -) 1 amp NEB Q6H PRN PRN Reason: SHORTNESS OF BREATH Amiodarone HCl (Cordarone -) 200 mg PO DAILY [facility] Last Admin: 05/31/16 10:11 Dose: 200 mg Apixaban (Eliquis -) 5 mg PO BID [facility] Last Admin: 05/31/16 10:10 Dose: 5 mg Ascorbic Acid (Vitamin C -) 500 mg PO DAILY [facility] Last Admin: 05/31/16 10:10 Dose: 500 mg Brimonidine Tartrate (Alphagan 0.2% -) 1 drop OU BID [facility] Last Admin: 05/31/16 10:09 Dose: 1 drop Collagenase (Santyl -) 1 applic TP DAILY [facility] Last Admin: 05/30/16 12:22 Dose: Not Given Diphenhydramine HCl (Benadryl -) 25 mg PO HS PRN PRN Reason: INSOMNIA Folic Acid (Folic Acid -) 1 mg PO DAILY [facility] Last Admin: 05/31/16 10:11 Dose: 1 mg Ertapenem 0.5 gm/ Sodium (Chloride) 50 mls @ 50 mls/hr IVPB DAILY [facility] PRN Reason: Protocol Last Admin: 05/31/16 10:11 Dose: 50 mls/hr Insulin Aspart (Novolog Vial Sliding Scale -) 1 vial SQ ACHS [facility] PRN Reason: Protocol Last Admin: 05/31/16 12:23 Dose: Not Given Levothyroxine Sodium (Synthroid -) 50 mcg PO DAILY@0700 [facility] Last Admin: 05/31/16 06:17 Dose: 50 mcg Metoprolol Succinate (Toprol Xl -) 25 mg PO BID [facility] Last Admin: 05/31/16 10:11 Dose: 25 mg Multivitamins/Minerals/Vitamin C (Tab-A-Vit -) 1 tab PO DAILY [facility] Last Admin: 05/31/16 10:10 Dose: 1 tab Ranitidine HCl (Zantac -) 150 mg PO BID [facility] Last Admin: 03/18/17 10:11 Dose: 150 mg Tamsulosin HCl (Flomax -) 0.4 mg PO HS [facility] Last Admin: 05/30/16 21:36 Dose: 0.4 mg Torsemide (Demadex -) 40 mg PO DAILY [facility] Last Admin: 05/31/16 10:10 Dose: 40 mg Zinc Sulfate (Orazinc -) 220 mg PO DAILY [facility] Last Admin: 05/31/16 10:11 Dose: 220 mg - Objective Vital Signs: Vital Signs Temperature 97.5 F L 05/31/16 10:00 Pulse Rate 66 05/31/16 10:00 Respiratory Rate 20 05/31/16 10:00 Blood Pressure 128/73 05/31/16 10:00 O2 Sat by Pulse Oximetry (%) 96 05/31/16 09:00 Constitutional: Yes: No Distress Cardiovascular: Yes: S1, S2 Respiratory: Yes: CTA Bilaterally Gastrointestinal: Yes: Soft. No: Tenderness, Rebound Edema: Yes (up to thighs ) Labs: CBC, BMP 05/31/16 06:00 05/31/16 06:00 INR, PTT INR 2.10 (0.82-1.09) H D 05/27/16 08:35 Assessment/Plan Impression 1. CASE on CKD stabilized 2. Sepsis 3. Cellulitis/abscess of back 4. CHF 5. Hypothyroidism 6. Hyperlipidemia 7. COPD 8. Htn 9. Anemia Normocytic and stable Plan No changes made Rpt labs in am Dr Camp
[2016-05-31] MEDS: COLLAGENASE CLOSTRIDIUM HIST. 30 GRAMS TUBE TP SCH (14:00)
[2016-05-31] MEDS: TAMSULOSIN HCL 0.4 MG CAP.ER.24H (FP) PO SCH (21:20)
[2016-05-31] MEDS: diphenhydrAMINE HCL 25 MG CAPSULE (FP) PO PRN (21:23)
[2016-06-01] MEDS: LEVOTHYROXINE NA 50 MCG TABLET (FP) PO SCH (06:14)
[2016-06-01] MEDS: INSULIN SLIDING SCALE (NOVOLOG) 1 VIAL SQ SCH ×4 (06:15→22:29)
[2016-06-01 07:28] LABS: BASOPHIL 0.6 % (0-2.0); EOSINOPHIL 0.8 % (0-4.5); MCH 28.7 pg (25.7-33.7); MCHC 32.5 g/dl (32.0-35.9); MEAN CELL VOLUME 88.3 fl (80-96); MEAN PLT VOLUME 9.2 fl (7.5-11.1); NEUTROPHILS 83.6 % (42.8-82.8); PLATELET COUNT 183 K/MM3 (134-434); RDW 18.7 % (11.9-15.9); WHITE BLOOD COUNT 5.8 K/mm3 (4.0-10.0)
[2016-06-01 07:53] LABS: CREATININE 2.6 mg/dL (0.7-1.3)
--- NOTE | 2016-06-01 08:34 | PN ---
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, Physician History of Present Illness: ITCHING--CHRONIC----TROUBLE SLEEPING--BETTER WITH BENADRYL - Current Medication List Current Medications: Active Medications Acetaminophen (Tylenol -) 650 mg PO Q6H PRN PRN Reason: FEVER OR PAIN Last Admin: 05/25/16 22:35 Dose: 650 mg Albuterol/Ipratropium (Duoneb -) 1 amp NEB Q6H PRN PRN Reason: SHORTNESS OF BREATH Amiodarone HCl (Cordarone -) 200 mg PO DAILY [facility] Last Admin: 05/31/16 10:11 Dose: 200 mg Apixaban (Eliquis -) 5 mg PO BID [facility] Last Admin: 05/31/16 21:20 Dose: 5 mg Ascorbic Acid (Vitamin C -) 500 mg PO DAILY [facility] Last Admin: 05/31/16 10:10 Dose: 500 mg Brimonidine Tartrate (Alphagan 0.2% -) 1 drop OU BID [facility] Last Admin: 05/31/16 21:26 Dose: 1 drop Collagenase (Santyl -) 1 applic TP DAILY [facility] Last Admin: 05/31/16 14:00 Dose: 1 applic Diphenhydramine HCl (Benadryl -) 25 mg PO HS PRN PRN Reason: INSOMNIA Last Admin: 05/31/16 21:23 Dose: 25 mg Folic Acid (Folic Acid -) 1 mg PO DAILY [facility] Last Admin: 05/31/16 10:11 Dose: 1 mg Ertapenem 0.5 gm/ Sodium (Chloride) 50 mls @ 50 mls/hr IVPB DAILY [facility] PRN Reason: Protocol Last Admin: 05/31/16 10:11 Dose: 50 mls/hr Insulin Aspart (Novolog Vial Sliding Scale -) 1 vial SQ ACHS [facility] PRN Reason: Protocol Last Admin: 06/01/16 06:15 Dose: Not Given Levothyroxine Sodium (Synthroid -) 50 mcg PO DAILY@0700 [facility] Last Admin: 06/01/16 06:14 Dose: 50 mcg Metoprolol Succinate (Toprol Xl -) 25 mg PO BID [facility] Last Admin: 05/31/16 21:20 Dose: 25 mg Multivitamins/Minerals/Vitamin C (Tab-A-Vit -) 1 tab PO DAILY [facility] Last Admin: 05/31/16 10:10 Dose: 1 tab Ranitidine HCl (Zantac -) 150 mg PO BID [facility] Last Admin: 05/31/16 21:22 Dose: 150 mg Tamsulosin HCl (Flomax -) 0.4 mg PO HS [facility] Last Admin: 05/31/16 21:20 Dose: 0.4 mg Torsemide (Demadex -) 40 mg PO DAILY [facility] Last Admin: 05/31/16 10:10 Dose: 40 mg Zinc Sulfate (Orazinc -) 220 mg PO DAILY [facility] Last Admin: 05/31/16 10:11 Dose: 220 mg - Objective Vital Signs: Vital Signs Temperature 97.5 F L 06/01/16 06:00 Pulse Rate 59 L 06/01/16 06:00 Respiratory Rate 20 06/01/16 06:00 Blood Pressure 105/71 06/01/16 06:00 O2 Sat by Pulse Oximetry (%) 100 05/31/16 21:00 Cardiovascular: Yes: S1, S2 Respiratory: Yes: Regular, CTA Bilaterally Gastrointestinal: Yes: Normal Bowel Sounds, Soft Wound/Incision: Yes: Dressing Dry and Intact Labs: CBC, BMP 06/01/16 06:15 06/01/16 06:15 INR, PTT INR 2.10 (0.82-1.09) H D 05/27/16 08:35 Problem List - Problems (1) Bacteremia Assessment/Plan: IV ABX PER ID FOLLOW LABS Code(s): R78.81 - BACTEREMIA (2) Pressure ulcer of lower extremity, stage 1 Assessment/Plan: WOUND CARE ABX Code(s): L89.891 - PRESSURE ULCER OF OTHER SITE, STAGE 1 (3) DMII (diabetes mellitus, type 2) Assessment/Plan: BGM WITH COVERAGE Code(s): E11.9 - TYPE 2 DIABETES MELLITUS WITHOUT COMPLICATIONS Qualifiers: Diabetes mellitus complication detail: with other kidney complication
[2016-06-01] MEDS ORDERED: PT OWN MED DRAWER 7, Y5N ONE ×2 (09:23→10:36)
[2016-06-01] MEDS: ASCORBIC ACID 500 MG TABLET (FP) PO SCH (10:25)
[2016-06-01] MEDS: METOPROLOL SUCCINATE 25 MG TAB.SR.24H (FP) PO SCH ×2 (10:25→22:28)
[2016-06-01] MEDS: RANITIDINE HCL 150 MG TABLET (FP) PO SCH ×2 (10:25→22:28)
[2016-06-01] MEDS: AMIODARONE HCL 200 MG TABLET (FP) PO SCH (10:25)
[2016-06-01] MEDS: TORSEMIDE 20 MG TABLET (FP) PO SCH (10:25)
[2016-06-01] MEDS: ZINC SULFATE 220 MG CAPSULE (FP) PO SCH (10:25)
[2016-06-01] MEDS: APIXABAN 5 MG TABLET PO SCH ×2 (10:25→22:28)
[2016-06-01] MEDS: MULTIVITAMINS (DAILY MVI) TABLET (FP) PO SCH (10:25)
[2016-06-01] MEDS: ERTAPENEM SODIUM 0.5 GM in SODIUM CHLORIDE 50 ML IVPB SCH (10:26)
[2016-06-01] MEDS: BRIMONIDINE TARTRATE 0.2% OPHTHALMIC 5 ML BOTTLE OU SCH ×2 (10:26→22:28)
[2016-06-01] MEDS: FOLIC ACID 1 MG TABLET (FP) PO SCH (10:26)
--- NOTE | 2016-06-01 11:34 | PN ---
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, Physician History of Present Illness: No events overnight No complaints - Current Medication List Current Medications: Active Medications Acetaminophen (Tylenol -) 650 mg PO Q6H PRN PRN Reason: FEVER OR PAIN Last Admin: 05/25/16 22:35 Dose: 650 mg Amiodarone HCl (Cordarone -) 200 mg PO DAILY [facility] Last Admin: 06/01/16 10:25 Dose: 200 mg Apixaban (Eliquis -) 5 mg PO BID [facility] Last Admin: 06/01/16 10:25 Dose: 5 mg Ascorbic Acid (Vitamin C -) 500 mg PO DAILY [facility] Last Admin: 06/01/16 10:25 Dose: 500 mg Brimonidine Tartrate (Alphagan 0.2% -) 1 drop OU BID [facility] Last Admin: 06/01/16 10:26 Dose: 1 drop Collagenase (Santyl -) 1 applic TP DAILY [facility] Last Admin: 05/31/16 14:00 Dose: 1 applic Diphenhydramine HCl (Benadryl -) 25 mg PO HS PRN PRN Reason: INSOMNIA Last Admin: 05/31/16 21:23 Dose: 25 mg Folic Acid (Folic Acid -) 1 mg PO DAILY [facility] Last Admin: 06/01/16 10:26 Dose: 1 mg Ertapenem 0.5 gm/ Sodium (Chloride) 50 mls @ 50 mls/hr IVPB DAILY [facility] PRN Reason: Protocol Last Admin: 06/01/16 10:26 Dose: 50 mls/hr Insulin Aspart (Novolog Vial Sliding Scale -) 1 vial SQ ACHS [facility] PRN Reason: Protocol Last Admin: 06/01/16 11:25 Dose: 2 units Levothyroxine Sodium (Synthroid -) 50 mcg PO DAILY@0700 [facility] Last Admin: 06/01/16 06:14 Dose: 50 mcg Metoprolol Succinate (Toprol Xl -) 25 mg PO BID [facility] Last Admin: 06/01/16 10:25 Dose: Not Given Multivitamins/Minerals/Vitamin C (Tab-A-Vit -) 1 tab PO DAILY [facility] Last Admin: 06/01/16 10:25 Dose: 1 tab Ranitidine HCl (Zantac -) 150 mg PO BID [facility] Last Admin: 06/01/16 10:25 Dose: 150 mg Tamsulosin HCl (Flomax -) 0.4 mg PO HS [facility] Last Admin: 05/31/16 21:20 Dose: 0.4 mg Torsemide (Demadex -) 40 mg PO DAILY [facility] Last Admin: 06/01/16 10:25 Dose: 40 mg Zinc Sulfate (Orazinc -) 220 mg PO DAILY [facility] Last Admin: 06/01/16 10:25 Dose: 220 mg - Objective Vital Signs: Vital Signs Temperature 97.5 F L 06/01/16 06:00 Pulse Rate 59 L 06/01/16 06:00 Respiratory Rate 20 06/01/16 06:00 Blood Pressure 105/71 06/01/16 06:00 O2 Sat by Pulse Oximetry (%) 100 05/31/16 21:00 Constitutional: Yes: No Distress HENT: Yes: WNL Neck: Yes: WNL Cardiovascular: Yes: Regular Rate and Rhythm Edema: Yes Labs: CBC, BMP 06/01/16 06:15 06/01/16 06:15 INR, PTT INR 2.10 (0.82-1.09) H D 05/27/16 08:35 Assessment/Plan Assessment/Plan a/p: 75 m hx non obs cad (cath 10/2014: only mild disease RCA), remote [place] ( mentioned in prior charts, no further details, pt unclear of hx), syst chf (NICM , mild dec lvef), htn, copd, dm, ckd (cr 2's), aflutter on eliquis, recent admit for subcutaneous abscess/sepsis/CASE sent to SNF [place] and elevated wbcs. aflutter - cont amiodarone and metoprolol - on eliquis, hgb stable. NICM, chronic syst chf: - rpt echo 03/2016 with worsened LV function. seeing cardiology in dr boateng's office--will follow up there as outpatient for evaluation of etiology of worsened LV function once acute issues resolved (? med nonadherence--pt previously with confusion/med issues) - con't metoprolol - BP low side today, will continue to hold hydralazine 10 bid and isordil 20 bid once bp stable. - on torsemide 40 qd at home--held here for CASE--now that cr back to baseline has been resumed. - not on NORMAN/ARB previously, due to advanced CKD and labile cr acute on chronic ckd - held diuretics initially and cr back to baseline, now back on torsemide, cr stable anemia: -stable here -seen by GI in past: has h/o gastric ulcers and diverticular bleeding in past, but no melena and guaiac neg here--i.e. no active GIB suspected HTN -bp better today, holding hydralazine and isordil for now non-obstructive CAD - Not on statin - on AC subcutaneous abscess, s/p I and D 04/11, le cellulitis: - now returns with elevated wbc, worse cellulitis - abx per ID positive trop: -trop in intermediate range with flat trend, consistent with his prior baselines and with nl ck and no sig ecg changes. Not consistent with acs.
--- NOTE | 2016-06-01 13:04 | PN ---
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, Physician Chief Complaint: Pt in no distress Wt down to 222 lbs LE edema much better - Current Medication List Current Medications: Active Medications Acetaminophen (Tylenol -) 650 mg PO Q6H PRN PRN Reason: FEVER OR PAIN Last Admin: 05/25/16 22:35 Dose: 650 mg Amiodarone HCl (Cordarone -) 200 mg PO DAILY [facility] Last Admin: 06/01/16 10:25 Dose: 200 mg Apixaban (Eliquis -) 5 mg PO BID [facility] Last Admin: 06/01/16 10:25 Dose: 5 mg Ascorbic Acid (Vitamin C -) 500 mg PO DAILY [facility] Last Admin: 06/01/16 10:25 Dose: 500 mg Brimonidine Tartrate (Alphagan 0.2% -) 1 drop OU BID [facility] Last Admin: 06/01/16 10:26 Dose: 1 drop Collagenase (Santyl -) 1 applic TP DAILY [facility] Last Admin: 05/31/16 14:00 Dose: 1 applic Diphenhydramine HCl (Benadryl -) 25 mg PO HS PRN PRN Reason: INSOMNIA Last Admin: 05/31/16 21:23 Dose: 25 mg Folic Acid (Folic Acid -) 1 mg PO DAILY [facility] Last Admin: 06/01/16 10:26 Dose: 1 mg Ertapenem 0.5 gm/ Sodium (Chloride) 50 mls @ 50 mls/hr IVPB DAILY [facility] PRN Reason: Protocol Last Admin: 06/01/16 10:26 Dose: 50 mls/hr Insulin Aspart (Novolog Vial Sliding Scale -) 1 vial SQ ACHS [facility] PRN Reason: Protocol Last Admin: 06/01/16 11:25 Dose: 2 units Levothyroxine Sodium (Synthroid -) 50 mcg PO DAILY@0700 [facility] Last Admin: 06/01/16 06:14 Dose: 50 mcg Metoprolol Succinate (Toprol Xl -) 25 mg PO BID [facility] Last Admin: 06/01/16 10:25 Dose: Not Given Multivitamins/Minerals/Vitamin C (Tab-A-Vit -) 1 tab PO DAILY [facility] Last Admin: 06/01/16 10:25 Dose: 1 tab Ranitidine HCl (Zantac -) 150 mg PO BID [facility] Last Admin: 06/01/16 10:25 Dose: 150 mg Tamsulosin HCl (Flomax -) 0.4 mg PO HS [facility] Last Admin: 05/31/16 21:20 Dose: 0.4 mg Torsemide (Demadex -) 40 mg PO DAILY [facility] Last Admin: 06/01/16 10:25 Dose: 40 mg Zinc Sulfate (Orazinc -) 220 mg PO DAILY [facility] Last Admin: 06/01/16 10:25 Dose: 220 mg - Objective Vital Signs: Vital Signs Temperature 98.0 F 06/01/16 10:00 Pulse Rate 58 L 06/01/16 10:00 Respiratory Rate 20 06/01/16 10:00 Blood Pressure 105/56 06/01/16 10:00 O2 Sat by Pulse Oximetry (%) 100 06/01/16 09:00 Constitutional: Yes: No Distress Cardiovascular: Yes: S1, S2 Respiratory: Yes: CTA Bilaterally Gastrointestinal: Yes: Soft. No: Distention, Tenderness, Rebound Edema: Yes (Decreased leg edema) Wound/Incision: Yes: Other (Both legs with dsgs) Labs: CBC, BMP 06/01/16 06:15 06/01/16 06:15 INR, PTT INR 2.10 (0.82-1.09) H D 05/27/16 08:35 Assessment/Plan Impression 1. CASE on CKD stabilized 2. Sepsis 3. Cellulitis/abscess of back 4. CHF 5. Hypothyroidism 6. Hyperlipidemia 7. COPD 8. Htn 9. Anemia Normocytic and stable Plan Continue to monitor wt , azotemia and electrolytes on the present diuretic regimen Rpt labs in am Dr Camp
[2016-06-01] MEDS: COLLAGENASE CLOSTRIDIUM HIST. 30 GRAMS TUBE TP SCH (14:05)
[2016-06-01] MEDS: TAMSULOSIN HCL 0.4 MG CAP.ER.24H (FP) PO SCH (22:28)
[2016-06-01] MEDS: ACETAMINOPHEN 325 MG TABLET (FP) PO PRN (22:29)
[2016-06-01] MEDS: diphenhydrAMINE HCL 25 MG CAPSULE (FP) PO PRN (23:00)
[2016-06-02] MEDS: LEVOTHYROXINE NA 50 MCG TABLET (FP) PO SCH (06:07)
[2016-06-02] MEDS: INSULIN SLIDING SCALE (NOVOLOG) 1 VIAL SQ SCH ×3 (06:08→16:42)
[2016-06-02 08:23] LABS: BASOPHIL 0.6 % (0-2.0); EOSINOPHIL 0.4 % (0-4.5); MCH 28.4 pg (25.7-33.7); MCHC 31.9 g/dl (32.0-35.9); NEUTROPHILS 84.4 % (42.8-82.8); PLATELET COUNT 192 K/MM3 (134-434); RDW 18.6 % (11.9-15.9)
[2016-06-02 08:41] LABS: CREATININE 2.6 mg/dL (0.7-1.3); MAGNESIUM 2.1 mg/dL (1.8-2.4); PHOSPHOROUS 4.1 mg/dL (2.5-4.9)
--- NOTE | 2016-06-02 09:04 | DS ---
Physical Examination Vital Signs: Vital Signs Temperature 97.9 F 06/02/16 05:59 Pulse Rate 63 06/02/16 05:59 Respiratory Rate 20 06/02/16 05:59 Blood Pressure 108/65 06/02/16 05:59 O2 Sat by Pulse Oximetry (%) 100 06/01/16 22:30 Findings/Remarks: [facility] [employer] Constitutional: Yes: Calm Cardiovascular: Yes: WNL Respiratory: Yes: WNL Gastrointestinal: Yes: WNL Edema: Yes Integumentary: Yes: Erythema, Venous Stasis Changes Labs: CBC, BMP 06/02/16 06:30 06/02/16 06:30 Discharge Summary Reason For Visit: SEPSIS Current Active Problems Bacteremia (Acute) Pressure ulcer of lower extremity, stage 1 (Acute) Sepsis (Acute) Wound of left shoulder (Acute) Hospital Course: (1) Bacteremia Assessment/Plan: IV ABX PER ID pseudomonas flourescens/putida bacteremia -source his legs continue iv ertapenem another 7 days Code(s): R78.81 - BACTEREMIA (2) Pressure ulcer of lower extremity, stage 1 Assessment/Plan: WOUND CARE ABX Code(s): L89.891 - PRESSURE ULCER OF OTHER SITE, STAGE 1 (3) DMII (diabetes mellitus, type 2) Assessment/Plan: BGM WITH COVERAGE Code(s): E11.9 - TYPE 2 DIABETES MELLITUS WITHOUT COMPLICATIONS Qualifiers: Diabetes mellitus complication detail: with other kidney complication DISCHARGE TO SNF [employer] Condition: Stable - Instructions Diet, Activity, Other Instructions: Activity as tolerated Diabetic diet Wound care with santyl continue iv Ertapenum 0.5 x 7 days Referrals: Robert [place] [Primary Care Provider] - Disposition: RETIREMENT FACILITY - Home Medications Comprehensive Discharge Medication List: Ambulatory Orders Acetaminophen [Tylenol .Regular Strength -] 650 mg PO Q6H PRN #0 tablet Albuterol 2.5/Ipratropium 0.5 [Duoneb -] 1 amp NEB Q6H PRN #0 amp 04/18/16 Apixaban [Eliquis -] 5 mg PO BID tablet 04/18/16 Ascorbic Acid [Vitamin C -] 500 mg PO DAILY tablet 04/18/16 Brimonidine Tartrate [Alphagan 0.2% -] 1 drop OU BID drops 04/18/16 Folic Acid - 1 mg PO DAILY tablet 04/18/16 Hydralazine HCl [Apresoline -] 10 mg PO BID tablet 04/18/16 Insulin Sliding Scale [Novolog Vial Sliding Scale -] 1 vial SQ ACHS units 04/18 Isosorbide Dinitrate [Isordil -] 20 mg PO BIDISORDIL tablet 04/18/16 Levothyroxine [Synthroid -] 50 mcg PO DAILY@0700 tablet 04/18/16 Metoprolol Succinate [Toprol XL -] 25 mg PO BID tab.sr.24h 04/18/16 Multivitamins [Multivit ([facility] Formulary)] 1 tab PO DAILY tab 04/18/16 Ranitidine [Zantac -] 150 mg PO BID tablet 04/18/16 Torsemide [Demadex -] 40 mg PO DAILY tablet 04/18/16 Zinc Sulfate [Orazinc -] 220 mg PO DAILY capsule 04/18/16 Amiodarone HCl [Cordarone -] 200 mg PO DAILY 05/23/16
[2016-06-02] MEDS ORDERED: PT OWN MED DRAWER 7, Y5N ONE (09:17)
[2016-06-02] MEDS: TORSEMIDE 20 MG TABLET (FP) PO SCH (09:22)
[2016-06-02] MEDS: RANITIDINE HCL 150 MG TABLET (FP) PO SCH (09:22)
[2016-06-02] MEDS: FOLIC ACID 1 MG TABLET (FP) PO SCH (09:22)
[2016-06-02] MEDS: ZINC SULFATE 220 MG CAPSULE (FP) PO SCH (09:22)
[2016-06-02] MEDS: MULTIVITAMINS (DAILY MVI) TABLET (FP) PO SCH (09:22)
[2016-06-02] MEDS: METOPROLOL SUCCINATE 25 MG TAB.SR.24H (FP) PO SCH (09:22)
[2016-06-02] MEDS: ASCORBIC ACID 500 MG TABLET (FP) PO SCH (09:22)
[2016-06-02] MEDS: APIXABAN 5 MG TABLET PO SCH (09:23)
[2016-06-02] MEDS: AMIODARONE HCL 200 MG TABLET (FP) PO SCH (09:23)
[2016-06-02] MEDS: BRIMONIDINE TARTRATE 0.2% OPHTHALMIC 5 ML BOTTLE OU SCH (09:23)
[2016-06-02 09:33] VITALS: BP 110/67; PULSE 58; TEMP 98.1
--- NOTE | 2016-06-02 11:58 | PN ---
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 (short form) - Note 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: still with leg pain overall more alert Vital Signs Period Temp Pulse Resp BP Sys/Hubbard Pulse Ox Last 24 Hr 97.4 F-98.1 F 58-68 18-20 107-120/60-80 96-100 cor-rrr lungs clear abd soft,nt ext less erythema and swelling of both legs CBC, BMP 06/02/16 06:30 06/02/16 06:30 Microbiology 05/26/16 11:50 Blood - Peripheral Venous Blood Culture - Final NO GROWTH AFTER 5 DAYS INCUBATION 05/26/16 11:15 Blood - Peripheral Venous Blood Culture - Final NO GROWTH AFTER 5 DAYS INCUBATION 05/23/16 17:30 Blood - Peripheral Venous Blood Culture - Final Pseudo Fluorescens/Putida 05/23/16 17:30 Blood - Peripheral Venous Blood Culture - Final Pseudo Fluorescens/Putida 05/23/16 17:30 Urine - Urine Clean Catch Urine Culture - Final Enterobacter Cloacae sonogram noted ct scan abd/pelvis- no abscess Active Medications Acetaminophen (Tylenol -) 650 mg PO Q6H PRN PRN Reason: FEVER OR PAIN Last Admin: 06/01/16 22:29 Dose: 650 mg Amiodarone HCl (Cordarone -) 200 mg PO DAILY [facility] Last Admin: 06/02/16 09:23 Dose: 200 mg Apixaban (Eliquis -) 5 mg PO BID [facility] Last Admin: 06/02/16 09:23 Dose: 5 mg Ascorbic Acid (Vitamin C -) 500 mg PO DAILY [facility] Last Admin: 06/02/16 09:22 Dose: 500 mg Brimonidine Tartrate (Alphagan 0.2% -) 1 drop OU BID [facility] Last Admin: 06/02/16 09:23 Dose: 1 drop Collagenase (Santyl -) 1 applic TP DAILY [facility] Last Admin: 06/01/16 14:05 Dose: 1 applic Diphenhydramine HCl (Benadryl -) 25 mg PO HS PRN PRN Reason: INSOMNIA Last Admin: 06/01/16 23:00 Dose: 25 mg Folic Acid (Folic Acid -) 1 mg PO DAILY [facility] Last Admin: 06/02/16 09:22 Dose: 1 mg Ertapenem 0.5 gm/ Sodium (Chloride) 50 mls @ 50 mls/hr IVPB DAILY [facility] PRN Reason: Protocol Last Admin: 06/01/16 10:26 Dose: 50 mls/hr Insulin Aspart (Novolog Vial Sliding Scale -) 1 vial SQ ACHS [facility] PRN Reason: Protocol Last Admin: 06/02/16 06:08 Dose: Not Given Levothyroxine Sodium (Synthroid -) 50 mcg PO DAILY@0700 [facility] Last Admin: 06/02/16 06:07 Dose: 50 mcg Metoprolol Succinate (Toprol Xl -) 25 mg PO BID [facility] Last Admin: 06/02/16 09:22 Dose: 25 mg Multivitamins/Minerals/Vitamin C (Tab-A-Vit -) 1 tab PO DAILY [facility] Last Admin: 06/02/16 09:22 Dose: 1 tab Ranitidine HCl (Zantac -) 150 mg PO BID [facility] Last Admin: 06/02/16 09:22 Dose: 150 mg Tamsulosin HCl (Flomax -) 0.4 mg PO HS [facility] Last Admin: 06/01/16 22:28 Dose: 0.4 mg Torsemide (Demadex -) 40 mg PO DAILY [facility] Last Admin: 06/02/16 09:22 Dose: 40 mg Zinc Sulfate (Orazinc -) 220 mg PO DAILY [facility] Last Admin: 06/02/16 09:22 Dose: 220 mg a/p pseudomonas flourescens/putida bacteremia -source his legs continue iv ertapenem another 7 days no good po options drug interaction with amiodarone and levaquin needs tunnelled catheter no objection to d/c to [place] to complete iv antibiotics continue wound care to legs cad cardiomyopathy diabetes history of shoulder abscess
[2016-06-02] MEDS ORDERED: PICC LINE 8 ML FLUSH PROTOCOL IVPUSH PRN (14:01)
--- NOTE | 2016-06-02 14:04 | PN ---
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, Physician History of Present Illness: Pt seen and examined at bedside. He is awake and alert. He feels that his breathing is improved. He denies shortness of breath. He still has lower extremity edema. - Current Medication List Current Medications: Active Medications Acetaminophen (Tylenol -) 650 mg PO Q6H PRN PRN Reason: FEVER OR PAIN Last Admin: 06/01/16 22:29 Dose: 650 mg Amiodarone HCl (Cordarone -) 200 mg PO DAILY [facility] Last Admin: 06/02/16 09:23 Dose: 200 mg Apixaban (Eliquis -) 5 mg PO BID [facility] Last Admin: 06/02/16 09:23 Dose: 5 mg Ascorbic Acid (Vitamin C -) 500 mg PO DAILY [facility] Last Admin: 06/02/16 09:22 Dose: 500 mg Brimonidine Tartrate (Alphagan 0.2% -) 1 drop OU BID [facility] Last Admin: 06/02/16 09:23 Dose: 1 drop Collagenase (Santyl -) 1 applic TP DAILY [facility] Last Admin: 06/01/16 14:05 Dose: 1 applic Diphenhydramine HCl (Benadryl -) 25 mg PO HS PRN PRN Reason: INSOMNIA Last Admin: 06/01/16 23:00 Dose: 25 mg Folic Acid (Folic Acid -) 1 mg PO DAILY [facility] Last Admin: 06/02/16 09:22 Dose: 1 mg Ertapenem 0.5 gm/ Sodium (Chloride) 50 mls @ 50 mls/hr IVPB DAILY [facility] PRN Reason: Protocol Last Admin: 06/01/16 10:26 Dose: 50 mls/hr Insulin Aspart (Novolog Vial Sliding Scale -) 1 vial SQ ACHS [facility] PRN Reason: Protocol Last Admin: 06/02/16 06:08 Dose: Not Given Levothyroxine Sodium (Synthroid -) 50 mcg PO DAILY@0700 [facility] Last Admin: 06/02/16 06:07 Dose: 50 mcg Metoprolol Succinate (Toprol Xl -) 25 mg PO BID [facility] Last Admin: 06/02/16 09:22 Dose: 25 mg Multivitamins/Minerals/Vitamin C (Tab-A-Vit -) 1 tab PO DAILY [facility] Last Admin: 06/02/16 09:22 Dose: 1 tab Ranitidine HCl (Zantac -) 150 mg PO BID [facility] Last Admin: 06/02/16 09:22 Dose: 150 mg Tamsulosin HCl (Flomax -) 0.4 mg PO HS [facility] Last Admin: 06/01/16 22:28 Dose: 0.4 mg Torsemide (Demadex -) 40 mg PO DAILY [facility] Last Admin: 06/02/16 09:22 Dose: 40 mg Zinc Sulfate (Orazinc -) 220 mg PO DAILY [facility] Last Admin: 06/02/16 09:22 Dose: 220 mg - Objective Vital Signs: Vital Signs Temperature 98.1 F 06/02/16 09:32 Pulse Rate 58 L 06/02/16 09:32 Respiratory Rate 18 06/02/16 09:32 Blood Pressure 110/67 06/02/16 09:32 O2 Sat by Pulse Oximetry (%) 96 06/02/16 09:31 Constitutional: Yes: Calm Eyes: Yes: Conjunctiva Clear Cardiovascular: Yes: S1, S2 Respiratory: Yes: CTA Bilaterally Gastrointestinal: Yes: Soft Genitourinary: Yes: WNL Edema: Yes Neurological: Yes: Oriented Psychiatric: Yes: Oriented Labs: CBC, BMP 06/02/16 06:30 06/02/16 06:30 INR, PTT INR 2.10 (0.82-1.09) H D 05/27/16 08:35 Problem List - Problems (1) Anemia Code(s): D64.9 - ANEMIA, UNSPECIFIED Qualifiers: Other causes of anemia: chronic disease, kidney (2) CKD (chronic kidney disease), stage II Code(s): N18.2 - CHRONIC KIDNEY DISEASE, STAGE 2 (MILD) (3) COPD (chronic obstructive pulmonary disease) Code(s): J44.9 - CHRONIC OBSTRUCTIVE PULMONARY DISEASE, UNSPECIFIED (4) DMII (diabetes mellitus, type 2) Code(s): E11.9 - TYPE 2 DIABETES MELLITUS WITHOUT COMPLICATIONS Qualifiers: Diabetes mellitus complication detail: with other kidney complication (5) HTN (hypertension) Code(s): I10 - ESSENTIAL (PRIMARY) HYPERTENSION Qualifiers: Hypertension type: essential hypertension Qualified Code(s): I10 - Essential (primary) hypertension Assessment/Plan Current Medications Generic Name Dose Route Start Last Admin Trade Name Freq PRN Reason Stop Dose Admin Acetaminophen 650 mg 05/23/16 22:34 06/01/16 22:29 Tylenol - PO 650 mg Q6H PRN Administration FEVER OR PAIN Amiodarone HCl 200 mg 05/24/16 10:00 06/02/16 09:23 Cordarone - PO 200 mg DAILY [facility] Administration Apixaban 5 mg 05/24/16 10:00 06/02/16 09:23 Eliquis - PO 5 mg BID [facility] Administration Ascorbic Acid 500 mg 05/24/16 10:00 06/02/16 09:22 Vitamin C - PO 500 mg DAILY [facility] Administration Brimonidine Tartrate 1 drop 05/24/16 10:00 06/02/16 09:23 Alphagan 0.2% - OU 1 drop BID [facility] Administration Collagenase 1 applic 05/30/16 12:00 06/01/16 14:05 Santyl - TP 1 applic DAILY [facility] Administration Diphenhydramine HCl 25 mg 05/31/16 10:12 06/01/16 23:00 Benadryl - PO 25 mg HS PRN Administration INSOMNIA Folic Acid 1 mg 05/24/16 10:00 06/02/16 09:22 Folic Acid - PO 1 mg DAILY [facility] Administration Ertapenem 0.5 gm/ Sodium 50 mls @ 50 mls/hr 05/29/16 14:15 06/01/16 10:26 Chloride IVPB 50 mls/hr DAILY [facility] Administration Protocol Insulin Aspart 1 vial 05/24/16 07:00 06/02/16 06:08 Novolog Vial Sliding Scale - SQ Not Given ACHS [facility] Protocol Levothyroxine Sodium 50 mcg 05/24/16 07:00 06/02/16 06:07 Synthroid - PO 50 mcg DAILY@0700 [facility] Administration Metoprolol Succinate 25 mg 05/24/16 10:00 06/02/16 09:22 Toprol Xl - PO 25 mg BID [facility] Administration Multivitamins/Minerals/Vitamin C 1 tab 05/24/16 10:00 06/02/16 09:22 Tab-A-Vit - PO 1 tab DAILY [facility] Administration Ranitidine HCl 150 mg 05/24/16 10:00 06/02/16 09:22 Zantac - PO 150 mg BID [facility] Administration Tamsulosin HCl 0.4 mg 05/29/16 22:00 06/01/16 22:28 Flomax - PO 0.4 mg HS [facility] Administration Torsemide 40 mg 05/29/16 10:00 06/02/16 09:22 Demadex - PO 40 mg DAILY [facility] Administration Zinc Sulfate 220 mg 05/24/16 10:00 06/02/16 09:22 Orazinc - PO 220 mg DAILY [facility] Administration Impression 1. CASE on CKD 2. sepsis 3. cellulitis/abscess of back 4. CHF 5. hypothyroidism 6. hyperlipidemia 7. COPD 8. htn Plan - cont with toresemide - low potassium diet - daily weights - discussed fluid intake with pt, he has about 3 liters of fluid on the table. He will try to be more compliant with the restriction - wound care to legs - will need bloodwork to be checked in [place] - will follow Dr Martinez
[2016-06-02] MEDS: ERTAPENEM SODIUM 0.5 GM in SODIUM CHLORIDE 50 ML IVPB SCH (16:42)
[2016-06-02] MEDS: COLLAGENASE CLOSTRIDIUM HIST. 30 GRAMS TUBE TP SCH (16:45)
== END 2016-06-02 18:37 | DRG 872 ==
LOC: JER 16:34 → JERBED 22:19 → UNDOADMIN 23:05 → J4S 05-24 01:20 → J7W 06-01 18:54
PROVIDERS: ADMIT Family Medicine; ATTEND Family Medicine
PROC: 05HM33Z Insertion of Infusion Device into Right Internal Jugular Vein, Percutaneous Approach (ICD-10-PCS; principal; 2016-06-02)
DX: A41.9 Sepsis, unspecified organism (principal); I13.0 Hypertensive heart and chronic kidney disease with heart failure and stage 1 through stage 4 chronic kidney disease, or unspecified chronic kidney disease; I50.22 Chronic systolic (congestive) heart failure; I42.9 Cardiomyopathy, unspecified; I48.92 Unspecified atrial flutter; L03.116 Cellulitis of left lower limb; L03.115 Cellulitis of right lower limb; N17.9 Acute kidney failure, unspecified; I25.10 Atherosclerotic heart disease of native coronary artery without angina pectoris; Z98.61 Coronary angioplasty status; N18.2 Chronic kidney disease, stage 2 (mild); D64.9 Anemia, unspecified; Z79.01 Long term (current) use of anticoagulants; I25.2 Old myocardial infarction; Z87.11 Personal history of peptic ulcer disease; J44.9 Chronic obstructive pulmonary disease, unspecified; D71 Functional disorders of polymorphonuclear neutrophils; E11.22 Type 2 diabetes mellitus with diabetic chronic kidney disease; L89.891 Pressure ulcer of other site, stage 1; R26.81 Unsteadiness on feet; M62.81 Muscle weakness (generalized); S41.002D Unspecified open wound of left shoulder, subsequent encounter; X58.XXXD Exposure to other specified factors, subsequent encounter
CPT/HCPCS: 36415; 36558; 71010-TC; 74176-TC; 76705-TC; 77001-TC; 80048; 80053; 81003; 81015; 82550; 83605; 83735; 84100; 84443; 84484; 85025; 85027; 85610; 85730; 86850; 86900; 86901; 87040; 87086; 87186; 93005; 93010; 99283-25; 99284-25; C1751; G0480; Q9967

== ENCOUNTER 2016-06-09 23:18 | Inpatient (IN) | payer OTHER, BC ==
[2016-06-09] MEDS ORDERED: DOPAMINE 400 MG/D5W - 250 ML IVPB SCH (23:45)
--- NOTE | 2016-06-09 23:51 | PDOC ---
History of Present Illness - History of Present Illness Initial Comments: 06/10/16 01:02 Patient is a 76 year old male, from [facility], with significant medical hx of CKD, GERD, HTN, COPD, DM, and glaucoma who has been sent to the ED for abnormal labs and hypothermia. Patient was found for abnormal labs with hyponatremia, hyperkalemia and acute renal failure. The patients rectal temp was found at 90.9 in the ED. The patient offers no complaints other than he feels dehydrated. He is not a reliable historian. <Shawna Triplett - Last Filed: 06/10/16 01:02> <Koko Galan - Last Filed: 06/10/16 02:19> - General Stated Complaint: RENAL FAILURE Past History <Shawna Triplett - Last Filed: 06/10/16 01:02> - Past Medical History Anemia: No Asthma: No Cancer: No Cardiac Disorders: No CVA: No COPD: No CHF: Yes Dementia: No Diabetes: Yes (NIDDM) Disorders: Yes (CHRONIC KIDNEY DISEASE) HTN: Yes Hypercholesterolemia: Yes Suicide Attempt (Hx): No Seizures: No Thyroid Disease: No - Psycho/Social/Smoking Cessation Hx Anxiety: No Suicidal Ideation: No Smoking History: Never smoked Have you smoked in the past 12 months: No Hx Alcohol Use: No Drug/Substance Use Hx: No Substance Use Type: None Hx Substance Use Treatment: No <Koko Galan - Last Filed: 06/10/16 02:19> - Past Medical History Allergies/Adverse Reactions: Allergies Allergy/AdvReac Type Severity Reaction Status Date / Time No Known Allergies Allergy Verified 05/23/16 23:31 Home Medications: Ambulatory Orders Acetaminophen [Tylenol .Regular Strength -] 650 mg PO Q6H PRN #0 tablet Albuterol 2.5/Ipratropium 0.5 [Duoneb -] 1 amp NEB Q6H PRN #0 amp 04/18/16 Apixaban [Eliquis -] 5 mg PO BID tablet 04/18/16 Ascorbic Acid [Vitamin C -] 500 mg PO DAILY tablet 04/18/16 Brimonidine Tartrate [Alphagan 0.2% -] 1 drop OU BID drops 04/18/16 Folic Acid - 1 mg PO DAILY tablet 04/18/16 Insulin Sliding Scale [Novolog Vial Sliding Scale -] 1 vial SQ ACHS units 04/18 Isosorbide Dinitrate [Isordil -] 20 mg PO BIDISORDIL tablet 04/18/16 Levothyroxine [Synthroid -] 50 mcg PO DAILY@0700 tablet 04/18/16 Metoprolol Succinate [Toprol XL -] 25 mg PO BID tab.sr.24h 04/18/16 Multivitamins [Multivit ([facility] Formulary)] 1 tab PO DAILY tab 04/18/16 Ranitidine [Zantac -] 150 mg PO BID tablet 04/18/16 Torsemide [Demadex -] 40 mg PO DAILY tablet 04/18/16 Zinc Sulfate [Orazinc -] 220 mg PO DAILY capsule 04/18/16 Amiodarone HCl [Cordarone -] 200 mg PO DAILY 05/23/16 Collagenase Clostridium Hist. [Santyl -] 1 applic TP DAILY tube 06/02/16 Diphenhydramine HCl [Benadryl Capsule -] 25 mg PO HS PRN #0 06/02/16 Ertapenem Sodium [Invanz -] 0.5 gm IVPB DAILY 7 Days 06/02/16 Insulin Sliding Scale [Novolog Vial Sliding Scale -] 1 vial SQ ACHS units 06/02 Tamsulosin HCl [Flomax -] 0.4 mg PO HS 06/02/16 Torsemide [Demadex -] 40 mg PO DAILY tablet 06/02/16 Review of Systems - Review of Systems Comments:: 06/10/16 01:03 GENERAL/CONSTITUTIONAL: Feels dehydrated. No fever or chills. No weakness. HEAD, EYES, EARS, NOSE AND THROAT: No change in vision. No ear pain or discharge. No sore throat. CARDIOVASCULAR: No chest pain or shortness of breath. RESPIRATORY: No cough, wheezing, or hemoptysis. GASTROINTESTINAL: No nausea, vomiting, diarrhea or constipation. GENITOURINARY: No dysuria, frequency, or change in urination. MUSCULOSKELETAL: No joint or muscle swelling or pain. No neck or back pain. SKIN: No rash NEUROLOGIC: No headache, vertigo, loss of consciousness, or change in strength/ sensation. <Shawna Triplett - Last Filed: 06/10/16 01:02> *Physical Exam - Vital Signs Last Vital Signs Temp Pulse Resp BP Pulse Ox 90.9 F L 40 L 18 79/49 98 06/10/16 00:09 06/10/16 00:42 06/10/16 00:42 06/10/16 00:42 06/10/16 00:42 - Physical Exam Comments: 06/10/16 01:03 GENERAL: Awake, alert, and fully oriented, in no acute distress HEAD: No signs of trauma EYES: PERRLA, EOMI, sclera anicteric, conjunctiva clear ENT: Auricles normal inspection, hearing grossly normal, nares patent, oropharynx clear without exudates. Moist mucosa NECK: Normal ROM, supple, no lymphadenopathy, JVD, or masses LUNGS: Breath sounds equal, clear to auscultation bilaterally. No wheezes, and no crackles HEART: Bradycardic, normal S1 and S2, no murmurs, rubs or gallops ABDOMEN: Soft, nontender, normoactive bowel sounds. No guarding, no rebound. No masses EXTREMITIES: Peripheral edema with chronic stasis ulcers to the ankles bilaterally. Normal range of motion. No clubbing or cyanosis. NEUROLOGICAL: AAOx3. Slow speech but making sense. Cranial nerves II through XII grossly intact. SKIN: Cool to touch. Dry, normal turgor, no rashes or lesions noted. ENDOCRINE: No increased thirst. No abnormal weight change. HEMATOLOGIC/LYMPHATIC: No anemia, easy bleeding, or history of blood clots. ALLERGIC/IMMUNOLOGIC: No hives or skin allergy. <Shawna Triplett - Last Filed: 06/10/16 01:02> ED Treatment Course - LABORATORY CBC & Chemistry Diagram: 06/09/16 23:50 06/09/16 23:50 - ADDITIONAL ORDERS Additional order review: Laboratory Results 06/09/16 06/09/16 06/09/16 23:50 23:50 23:50 INR 1.95 H Sodium 126 L Potassium 5.4 H Chloride 96 L Carbon Dioxide 17 L Anion Gap 13 BUN 97 H D Creatinine 3.6 H D Creat Clearance w eGFR 16.57 Random Glucose 71 L Lactic Acid 1.593 Calcium 7.6 L Phosphorus 4.5 Magnesium 2.2 Total Bilirubin 0.6 D AST 48 H D ALT 29 D Alkaline Phosphatase 97 D Creatine Kinase 408 H D Troponin I 0.07 H D B-Natriuretic Peptide 18582.60 H Total Protein 5.2 L Albumin 1.7 L Lipase 286 06/09/16 23:50 RBC 2.45 L D MCV 87.7 MCHC 31.8 L RDW 18.4 H MPV 9.3 Neutrophils % Y Lymphocytes % Y - Medications Given in the ED: ED Medications Discontinued Medications Generic Name Dose Route Start Last Admin Trade Name Katlyn PRN Reason Stop Dose Admin Atropine Sulfate 1 mg 06/09/16 23:53 06/10/16 00:57 Atropine Injection - IVPUSH 06/09/16 23:54 1 mg ONCE ONE Administration Atropine Sulfate 1 mg 06/09/16 23:59 06/10/16 00:57 Atropine Injection - IVPUSH 06/10/16 00:00 Not Given ONCE ONE Dopamine HCl/Dextrose 250 mls @ 20.412 mls/hr 06/10/16 00:15 06/10/16 00:58 Dopamine 400 Mg/D5w - IVPB Not Given TITR [facility] Protocol 5 MCG/KG/MIN Sodium Chloride 500 ml 06/09/16 23:58 06/10/16 00:57 Normal Saline - IV 06/09/16 23:59 500 ml ONCE ONE Administration <Shawna Triplett - Last Filed: 06/10/16 01:02> - LABORATORY CBC & Chemistry Diagram: 06/09/16 23:50 06/09/16 23:50 <Koko Galan - Last Filed: 06/10/16 02:19> Medical Decision Making - Critical Care Time Total Critical Care Time (minutes): 120 Critical Care Statement: The care of this patient involved high complexity decision making to prevent further life threatening deterioration of the patient 's condition and/or to evalute & treat vital organ system(s) failure or risk of failure. - Medical Decision Making 06/10/16 01:57 This is a 76yo m with hypotension, bradycardia, mild cognitive delay potentially , moderate hypothermia and elevated potassium, hyponatremia. He is concerningly septic and I am concerned about his temperature as well. He has been given warm blankets, BEAR hugger. He will be given warm fluids however, we have to be very cautious given the last EF of 30% and significant elevation of BNP; I cannot give him aggressive hydration as a result; will start warm IVF 250cc boluses and will initiate continuous bladder irrigation with warm fluids as well. He has a CXR showing no significant congestion but concern for infiltrate RLL/RML. Will give Rocephin, Vancomycin 06/10/16 01:58 06/10/16 02:12 The patient has hyponatremia, hyperkalemia, hypotension, bradycardia, hypothermia; he has likely adrenal insufficiency as well, and may benefit from hydrocortisone and will also give albumin as well, given hypoalbuminemia. I have discussed the case with the PMD Luiz who agrees with plan. Also, there is significant anemia; he will receive transfusion of PRBCS at this time. I have made effort to contact the [facility] however, no answer, [facility] for transfusion, CVC and other care. <Koko Galan - Last Filed: 06/10/16 02:19> *DC/Admit/Observation/Transfer - Attestations Scribe Attestion: 06/10/16 01:04 Documentation prepared by Shawna Triplett, acting as medical lead for Koko Galan MD. <Shawna Triplett - Last Filed: 06/10/16 01:02> - Discharge Dispostion Admit: Yes Decision to Admit order Date/Time: 06/10/16 02:18 - Attestations Physician Attestion: 06/10/16 02:19 I, Dr. Koko Galan MD, attest that this document has been prepared under my direction and personally reviewed by me in its entirety. I further attest, that it accurately reflects all work, treatment, procedures and medical decision -making performed by me. <Koko Galan - Last Filed: 06/10/16 02:19> Diagnosis at time of Disposition: Hyponatremia, Acute hyperkalemia, Hypoalbuminemia, Bradycardia, Lung consolidation Hypotension Qualifiers: Hypotension type: other hypotension type Qualified Code(s): I95.89 - Other hypotension - Discharge Dispostion Condition at time of disposition: Critical - Referrals Referrals: Robert Colorado [Primary Care Provider] -
[2016-06-09] MEDS ORDERED: ATROPINE SULFATE 1 MG/10 ML DISP.SYRIN IVPUSH ONE ×2 (23:53→23:59)
[2016-06-09] MEDS ORDERED: ASPIRIN 325 MG TABLET PO ONE (23:58)
[2016-06-09] MEDS ORDERED: SODIUM CHLORIDE 0.9% 500 ML INFUS.BAG IV ONE (23:58)
[2016-06-10 00:11] VITALS: BMI 35.4
[2016-06-10] MEDS ORDERED: DOPAMINE 400 MG/D5W - 250 ML IVPB SCH ×2 (00:15→04:00)
[2016-06-10] MEDS ORDERED: EPINEPHrine/PF 1 MG/1 ML (1:1,000) AMPULE ONE (00:18)
[2016-06-10 00:21] LABS: MCH 27.9 pg (25.7-33.7); MCHC 31.8 g/dl (32.0-35.9); MEAN CELL VOLUME 87.7 fl (80-96); MEAN PLT VOLUME 9.3 fl (7.5-11.1); PLATELET COUNT 187 K/MM3 (134-434); RDW 18.4 % (11.9-15.9); WHITE BLOOD COUNT 13.1 K/mm3 (4.0-10.0)
[2016-06-10] MEDS ORDERED: EPINEPHRINE 1:1,000 - 1,000 MCG in DEXTROSE 5%-WATER - 249 ML IVPB SCH (00:30)
[2016-06-10 00:39] LABS: INR 1.95 (0.82-1.09); PROTHROMBIN TIME (PATIENT) 21.7 SEC (9.98-11.88)
[2016-06-10] MEDS ORDERED: PIPERACILLIN/TAZOB 3.375 GM/50 ML PRE-DOCKED IVPB ONE (00:45)
[2016-06-10 00:47] LABS: ALBUMIN 1.7 g/dl (3.4-5.0); CALCIUM 7.6 mg/dL (8.5-10.1); MAGNESIUM 2.2 mg/dL (1.8-2.4)
[2016-06-10 00:50] LABS: BILIRUBIN,TOTAL 0.6 mg/dL (0.2-1.0); CREATININE 3.6 mg/dL (0.7-1.3); PHOSPHOROUS 4.5 mg/dL (2.5-4.9); TOT PROT 5.2 g/dl (6.4-8.2); TROPONIN I 0.07 ng/ml (0.00-0.05)
[2016-06-10 00:54] LABS: URINE APPEARANCE SLCLOUDY; URINE BILIRUBIN NEGATIVE (NEGATIVE); URINE BLOOD NEGATIVE (NEGATIVE); URINE COLOR AMBER; URINE GLUCOSE (UA) NEGATIVE (NEGATIVE); URINE KETONE NEGATIVE (NEGATIVE); URINE LEUK ESTERASE NEGATIVE (NEGATIVE); URINE NITRITE NEGATIVE (NEGATIVE); URINE PROTEIN NEGATIVE (NEGATIVE); URINE UROBILINOGEN NEGATIVE E.U./dl (0.2-1.0)
[2016-06-10] MEDS ORDERED: PIPERACILLIN/TAZOB 3.375 GM 50 ML IVPB ONE (01:02)
[2016-06-10 01:20] LABS: NEUTROPHILS 91.8 % (42.8-82.8)
[2016-06-10 01:21] LABS: BASOPHIL 0.3 % (0-2.0)
[2016-06-10] MEDS ORDERED: VANCOMYCIN 1,750 MG in DEXTROSE 5%-WATER - 250 ML IVPB ONE (01:31)
[2016-06-10] MEDS ORDERED: SODIUM CHLORIDE 0.9% 500 ML INFUS.BAG IV ONE (01:31)
[2016-06-10] MEDS ORDERED: DEXTROSE 50%-WATER 50 ML VIAL IVPUSH ONE (01:32)
[2016-06-10] MEDS ORDERED: ALBUTEROL SO4 0.083% IH SOL 2.5 MG/3 ML VIAL.NEB. NEB ONE (01:32)
[2016-06-10] MEDS ORDERED: INSULIN REGULAR HUMAN 100 UNITS/ML *VIAL IVPUSH ONE (01:32)
[2016-06-10] MEDS ORDERED: HYDROCORTISONE SOD SUCCINATE 100 MG/2 ML VIAL IVPUSH ONE (01:57)
[2016-06-10] MEDS ORDERED: AZITHROMYCIN IVPB 500 MG in DEXTROSE 5%-WATER - 250 ML IVPB ONE (02:08)
[2016-06-10] MEDS ORDERED: HYDROCORTISONE SOD SUCCINATE 2 ML ONE (02:10)
[2016-06-10] MEDS ORDERED: AZITHROMYCIN IVPB 250 ML IVPB ONE (02:16)
[2016-06-10] MEDS: NOREPINEPHRINE BITARTRATE 8,000 MCG in DEXTROSE 5%-WATER - 492 ML IV SCH (03:40)
[2016-06-10] MEDS ORDERED: SODIUM CHLORIDE 500 ML IV STA (03:47)
[2016-06-10] MEDS ORDERED: NOREPINEPHRINE BITARTRATE 4 MG/4 ML ML IV ONE (03:47)
[2016-06-10] MEDS ORDERED: MEROPENEM 500 MG in DEXTROSE 5%-WATER - 100 ML IVPB ONE (03:48)
[2016-06-10] MEDS ORDERED: VANCOMYCIN 1 GRAM (PRE-DOCKED) 250 ML IVPB ONE (03:49)
[2016-06-10] MEDS ORDERED: LACTATED RINGERS SOLUTION 1,000 ML IV SCH (04:00)
--- NOTE | 2016-06-10 04:01 | CONSULT ---
Consult - History of Present Illness History of Present Illness: Pt is a 76yr old man with PMHx including pulm HTN, COPD, HTN, CAD, a-flutter, CHF, DM, CKD, GERD, hypothyroidism and glaucoma. Pt admitted here 05/23-06/02 for cellulitis of the left shoulder abscess and BLE, bactermia. Pt with hx of MDR UTI. Pt presents from [facility], initial vital signs 90.9, HR 40ss, 96/51, RR19 , 97%. Chest xray with significantly enlarged cardiac silhouette (my read) WBC 13.1, BUN/Cr 97/3.6, HGB 6.8, INR 1.95, Na 126, Ch 96, Trop 0.07, CK 408, BNP 11 ,741. Pt given atropine, 1L NS, Zosyn, solucortef, started on an epinephrine drip and given a head CT and transferred to the ICU for further management. Upon assessment 84/47, HR 50s irregular with PVCs, 92, RR ~20, initially lower 80s on 2LNC, switched to NRB sating 100%. Stat ABG in ICU 7..1/235/12.5. Pt is responsive but confused with garbled speech, unable to attain further hx from him. - History Source History Provided By: Medical Record Limitations to Obtaining History: Clinical Condition - Past Medical History Cardio/Vascular: Yes: CHF, HTN, Other (flutter) Pulmonary: Yes: COPD Gastrointestinal: Yes: Diverticulosis, Peptic Ulcer Disease Renal/: Yes: Renal Inusuff Endocrine: Yes: Diabetes Mellitus Additional Medical History: glaucoma - Past Surgical History Past Surgical History: Yes: Colonoscopy, Upper Endoscopy - Alcohol/Substance Use Hx Alcohol Use: No - Smoking History Smoking history: Never smoked Have you smoked in the past 12 months: No - Social History Usual Living Arrangement: Snf Occupation: worked for the [employer] Home Medications - Allergies Allergies/Adverse Reactions: Allergies Allergy/AdvReac Type Severity Reaction Status Date / Time No Known Allergies Allergy Verified 05/23/16 23:31 - Home Medications Home Medications: Ambulatory Orders Acetaminophen [Tylenol .Regular Strength -] 650 mg PO Q6H PRN #0 tablet Albuterol 2.5/Ipratropium 0.5 [Duoneb -] 1 amp NEB Q6H PRN #0 amp 02/03/17 Apixaban [Eliquis -] 5 mg PO BID tablet 04/18/16 Ascorbic Acid [Vitamin C -] 500 mg PO DAILY tablet 04/18/16 Brimonidine Tartrate [Alphagan 0.2% -] 1 drop OU BID drops 04/18/16 Folic Acid - 1 mg PO DAILY tablet 04/18/16 Insulin Sliding Scale [Novolog Vial Sliding Scale -] 1 vial SQ ACHS units 04/18 Isosorbide Dinitrate [Isordil -] 20 mg PO BIDISORDIL tablet 04/18/16 Levothyroxine [Synthroid -] 50 mcg PO DAILY@0700 tablet 04/18/16 Metoprolol Succinate [Toprol XL -] 25 mg PO BID tab.sr.24h 04/18/16 Multivitamins [Multivit ([facility] Formulary)] 1 tab PO DAILY tab 04/18/16 Ranitidine [Zantac -] 150 mg PO BID tablet 04/18/16 Torsemide [Demadex -] 40 mg PO DAILY tablet 04/18/16 Zinc Sulfate [Orazinc -] 220 mg PO DAILY capsule 04/18/16 Amiodarone HCl [Cordarone -] 200 mg PO DAILY 05/23/16 Collagenase Clostridium Hist. [Santyl -] 1 applic TP DAILY tube 06/02/16 Diphenhydramine HCl [Benadryl Capsule -] 25 mg PO HS PRN #0 06/02/16 Ertapenem Sodium [Invanz -] 0.5 gm IVPB DAILY 7 Days 06/02/16 Insulin Sliding Scale [Novolog Vial Sliding Scale -] 1 vial SQ ACHS units 06/02 Tamsulosin HCl [Flomax -] 0.4 mg PO HS 06/02/16 Torsemide [Demadex -] 40 mg PO DAILY tablet 06/02/16 Family Disease History - Family Disease History Family Disease History: Diabetes: Father Review of Systems Unable to obtain ROS, reason: TESS Findings/Remarks: Denies chest pain upon receiving in the ICU Physical Exam Vital Signs: Vital Signs Period Temp Pulse Resp BP Sys/Hubbard Pulse Ox Last 24 Hr 90.9 F-91.0 F 40-62 18-19 76-101/49-70 93-98 Intake & Output 03/25/17 06/08/16 06/09/16 06/10/16 23:59 23:59 23:59 23:59 Weight 240 lb Constitutional: Yes: Well Nourished, Mild Distress HENT: Yes: Atraumatic, Normocephalic Cardiovascular: Yes: Bradycardia, Pulse Irregular Respiratory: Yes: Diminished, On Nasal O2, Rales (fine, as bases bilaterally) Gastrointestinal: Yes: Normal Bowel Sounds, Soft, Abdomen, Obese. No: Tenderness ...Rectal Exam: Yes: Deferred Renal/: Yes: López Present (scant dark yellow output) Extremities: Yes: Other (BLE pain) Edema: Yes Edema: LLE: 2+, RLE: 2+ Peripheral Pulses WNL: Yes (+1 bilateral pedal pulses) Integumentary: Yes: Venous Stasis Changes (multiple bilateral venous ulcers) Wound/Incision: Yes: Open to air (left shoulder wound EULA with tunneling ( slough appreciated therein)), Other (sacral wound) Neurological: Yes: Confusion, Lethargy Labs: Abnormal Lab Results 06/09/16 06/09/16 06/09/16 23:50 23:50 23:50 WBC 13.1 H D RBC 2.45 L D Hgb 6.8 L* D Hct 21.5 L D MCHC 31.8 L RDW 18.4 H Neutrophils % 91.8 H Lymphocytes % 2.0 L D INR 1.95 H ABG pH ABG pCO2 at Pt Temp ABG pO2 at Pt Temp ABG HCO3 ABG O2 Sat (Measured) ABG O2 Content ABG Base Excess Sodium 126 L Potassium 5.4 H Chloride 96 L Carbon Dioxide 17 L BUN 97 H D Creatinine 3.6 H D Random Glucose 71 L Calcium 7.6 L AST 48 H D Creatine Kinase 408 H D CK-MB (CK-2) 13.411 H Troponin I 0.07 H D B-Natriuretic Peptide 82435.60 H Total Protein 5.2 L Albumin 1.7 L TSH 06/09/16 06/10/16 23:50 03:54 WBC RBC Hgb Hct MCHC RDW Neutrophils % Lymphocytes % INR ABG pH 7.23 L* ABG pCO2 at Pt Temp 31.1 L ABG pO2 at Pt Temp 235.0 H* ABG HCO3 12.5 L* ABG O2 Sat (Measured) 100.0 H* ABG O2 Content 9.9 L* ABG Base Excess -13.6 L* Sodium Potassium Chloride Carbon Dioxide BUN Creatinine Random Glucose Calcium AST Creatine Kinase CK-MB (CK-2) Troponin I B-Natriuretic Peptide Total Protein Albumin TSH 5.65 H D Imaging - Results Chest X-ray: Image Reviewed Assessment/Plan Pt is a 76yr old man with PMHx including pulm HTN, COPD, HTN, CAD, a-flutter, CHF, DM, CKD, GERD, hypothyroidism and glaucoma. Pt admitted here 05/23-06/02 for cellulitis of the left shoulder abscess and BLE, bactermia. Pt with hx of MDR UTI. Now in the ICU for septic shock, likely secondary to numerous wounds ( left shoulder, sacral, bilateral venous stasis wounds) +/- HCAP. Pulm: COPD, pulm htn, chest xray concerning for vascular congestion and HCAP ( my read) -O2 support, low threshold to intubate given mental status in setting of septic shock -Nebulizers standing and prn -ABG with partially compensated metabolic acidosis, monitor for respiratory fatigue -Repeat chest xray and and abg ID: Septic shock AEB profound hypotension/bradycardia/hypothermia/elevated wbc -f/u cultures -Consult -Pt given Zosyn in ER, I added one time doses of David and Vanc, continue antibiotics per ID -f/u lactic acid Cardio: Hx of HTN, CAD, a-flutter, CHF. Enlarged cardiac silhouette (my read) on chest xray. -Consult -Levophed/dopamine for MAP 65-75 -f/u enzymes -Repeat EKG -f/u ECHO (04/14 with 30%EF VSF severely reduced, severe global hypokinesis of LV , RVSP 30-40) -Hold antihypertensives in setting of septic shock -Hold Lasix for now -Hold a/c for now until h/h stable, bleed ruled out Renal: Acute on chronic renal insufficiency BUN/Cr 97/3.6 (Cr was 2.6 on 06/02) -Consult -IVF as tolerated -Monitor electrolytes -Strict I/Os Heme: Hgb 6.8 -Transfuse for Hgb >8 given cardiac history -f/u iron, b12 levels -f/u fecal occult blood -PPI -NPO -Consider ab/pel CT Vascular: Multiple wounds (left shoulder, sacral, bilateral venous stasis wounds ) -Consult -Wound care Neuro: Preliminary head CT read without noted acute pathology -Pain management Endo: -BGM -Glycemic control -Continue home synthroid for now (PO dose of 50mcg changed to 25mcg IV as pt npo ) -f/u free t3/t4 Ophthalmology: Hx of glaucoma -Continue home glaucoma medication Prophylactic -DVT -PPI -Aspiration precautions -Bleeding precautions -Multivitamin
[2016-06-10] MEDS ORDERED: DEXTROSE 50%-WATER 50 ML VIAL ONE (04:02)
[2016-06-10 04:07] LABS: ALLENS TEST POSITIVE; ART PUNCT SITE RIGHT RADIAL; ARTERIAL BLOOD GAS BASE EXCESS -13.6 meq/l (-2-2); ARTERIAL BLOOD GAS HCO3 12.5 meq/L (22-26); LPM/O2% 100%; PT. ON O2? YES; TYPE OF O2 NRM
[2016-06-10 04:08] LABS: ARTERIAL BLOOD GAS pH 7.23 (7.35-7.45)
[2016-06-10] MEDS ORDERED: ALBUTEROL SO4 0.083% IH SOL 2.5 MG/3 ML VIAL.NEB. NEB PRN (04:14)
[2016-06-10] MEDS ORDERED: SODIUM BICARBONATE 8.4% 50 MEQ/50 ML DISP.SYRIN IVPUSH ONE (04:32)
[2016-06-10 04:48] LABS: BASOPHIL 0.3 % (0-2.0); MCH 27.9 pg (25.7-33.7); MCHC 31.5 g/dl (32.0-35.9); MEAN CELL VOLUME 88.6 fl (80-96); MEAN PLT VOLUME 9.4 fl (7.5-11.1); NEUTROPHILS 97.3 % (42.8-82.8); PLATELET COUNT 195 K/MM3 (134-434); RDW 18.6 % (11.9-15.9)
[2016-06-10] MEDS ORDERED: PANTOPRAZOLE SODIUM 40 MG in SODIUM CHLORIDE 100 ML IVPB ONE (05:05)
[2016-06-10 05:15] LABS: INR 2.03 (0.82-1.09); PROTHROMBIN TIME (PATIENT) 22.6 SEC (9.98-11.88)
[2016-06-10 05:18] LABS: ACTIVATED PTT 47.2 SECONDS (26.9-34.4)
[2016-06-10 05:21] LABS: ALBUMIN 1.7 g/dl (3.4-5.0); BILIRUBIN,TOTAL 0.6 mg/dL (0.2-1.0); CALCIUM 7.2 mg/dL (8.5-10.1); CREATININE 3.6 mg/dL (0.7-1.3); MAGNESIUM 2.1 mg/dL (1.8-2.4); PHOSPHOROUS 4.6 mg/dL (2.5-4.9); TOT PROT 4.9 g/dl (6.4-8.2)
[2016-06-10 05:24] LABS: TROPONIN I 0.07 ng/ml (0.00-0.05)
[2016-06-10] MEDS: SODIUM CHLORIDE 1,000 ML IV SCH (05:44)
[2016-06-10] MEDS: PANTOPRAZOLE SODIUM 100 ML IVPB SCH ×2 (05:46→18:16)
[2016-06-10] MEDS: ALBUTEROL SO4 2.5/IPRATROPIUM 0.5 INH SOL 3 ML VIAL.NEB. NEB SCH ×2 (06:00→14:06)
[2016-06-10] MEDS: LEVOTHYROXINE SODIUM 100 MCG VIAL IVPUSH SCH (06:03)
[2016-06-10] MEDS: ALBUMIN HUMAN 25% 100 ML VIAL IVPB SCH ×2 (06:39→06:40)
[2016-06-10] MEDS: BRIMONIDINE TARTRATE 0.2% OPHTHALMIC 5 ML BOTTLE OU SCH ×2 (09:28→22:42)
[2016-06-10] MEDS ORDERED: PT OWN MED DRAWER 7, Y5N ONE ×2 (09:35→22:21)
[2016-06-10] MEDS ORDERED: PNEUMOC 13-VAL CONJ-DIP CRM/PF 0.5 ML DISP.SYRIN IM ONE (10:00)
--- NOTE | 2016-06-10 11:25 | PN ---
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 (short form) - Note 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: ID Consult dictated Sepsis/ septic shock Chronic leg ulcers, possible source of sepsis RML/RLL infiltrate Renal failure Hx (R) Pseudomonas bacteremia Pending sepsis workup, empiric meropenem/ vancomycin adjusted for renal failure hemodynamic support Prognosis guarded
[2016-06-10] MEDS ORDERED: MEROPENEM 500 MG VIAL (RESTRICTED TO ID) IVPB SCH (11:30)
[2016-06-10] MEDS ORDERED: SODIUM CHLORIDE 250 ML IV STA ×3 (12:49→19:14)
--- NOTE | 2016-06-10 13:12 | CON.CARD ---
Consult Consult Specialty:: Cardiology Consult Referred by:: Dr. Dee Reason for Consultation:: Minimally elevated troponins - History of Present Illness History of Present Illness: 76 yo male with CAD, prior DE (mild diffuse prox RCA disease, no intervention), reported paroxysmal atrial fib/flutter (on Eliquis), HFrEF (severely reduced LV systolic function per 04/14/16 echo), HTN, DM, CKD, hyperlipidemia, who was recently hospitalized at [facility] from 05/23-06/02/16 for cellulitis/ abscess of left shoulder and lower extremities, and bacteremia. He presented again to [facility] last evening (06/09) with hypothermia, hyponatremia, anemia, hypotension, and chronic renal failure. Patient was given IV fluids, IV antibiotics, and started on epinephrine gtt. Cardiology consult was requested for minimally elevated troponins of 0.07 -> 0.07. Initial ECG on 06/09/16 demonstrated junctional rhythm with T wave abnormalities in V3-6. Currently in sinus per telemetry. Patient is currently confused and unable to provide any history or answer my questions. Patient was previously seen by Dr. Federico Mccray (from [facility]) in the clinic on 03/25/16, but was seen by Dr. Acosta's group here at [facility] on 04/11-04/18/16 and 05/24-06/02/16. 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 Spoke with Dr. Dee , who states that he is under the care of Dr. Mccray and is requesting us to see the patient. - History Source History Provided By: Medical Record Limitations to Obtaining History: Unresponsive - Past Medical History Cardio/Vascular: Yes: AFIB (atrial flutter), CHF (chronic systolic CHF), HTN Pulmonary: Yes: COPD Gastrointestinal: Yes: Diverticulosis, Peptic Ulcer Disease Renal/: Yes: Renal Inusuff Endocrine: Yes: Diabetes Mellitus Additional Medical History: glaucoma - Past Surgical History Past Surgical History: Yes: Colonoscopy, Upper Endoscopy - Alcohol/Substance Use Hx Alcohol Use: No - Smoking History Smoking history: Never smoked Have you smoked in the past 12 months: No - Social History Usual Living Arrangement: Shelter Occupation: worked for the [employer] Home Medications - Allergies Allergies/Adverse Reactions: Allergies Allergy/AdvReac Type Severity Reaction Status Date / Time No Known Allergies Allergy Verified 05/23/16 23:31 - Home Medications Home Medications: Ambulatory Orders Acetaminophen [Tylenol .Regular Strength -] 650 mg PO Q6H PRN #0 tablet Albuterol 2.5/Ipratropium 0.5 [Duoneb -] 1 amp NEB Q6H PRN #0 amp 04/18/16 Apixaban [Eliquis -] 5 mg PO BID tablet 04/18/16 Ascorbic Acid [Vitamin C -] 500 mg PO DAILY tablet 04/18/16 Brimonidine Tartrate [Alphagan 0.2% -] 1 drop OU BID drops 04/18/16 Folic Acid - 1 mg PO DAILY tablet 04/18/16 Insulin Sliding Scale [Novolog Vial Sliding Scale -] 1 vial SQ ACHS units 04/18 Isosorbide Dinitrate [Isordil -] 20 mg PO BIDISORDIL tablet 04/18/16 Levothyroxine [Synthroid -] 50 mcg PO DAILY@0700 tablet 04/18/16 Metoprolol Succinate [Toprol XL -] 25 mg PO BID tab.sr.24h 04/18/16 Multivitamins [Multivit ([facility] Formulary)] 1 tab PO DAILY tab 04/18/16 Ranitidine [Zantac -] 150 mg PO BID tablet 04/18/16 Torsemide [Demadex -] 40 mg PO DAILY tablet 04/18/16 Zinc Sulfate [Orazinc -] 220 mg PO DAILY capsule 04/18/16 Amiodarone HCl [Cordarone -] 200 mg PO DAILY 05/23/16 Collagenase Clostridium Hist. [Santyl -] 1 applic TP DAILY tube 06/02/16 Diphenhydramine HCl [Benadryl Capsule -] 25 mg PO HS PRN #0 06/02/16 Ertapenem Sodium [Invanz -] 0.5 gm IVPB DAILY 7 Days 06/02/16 Insulin Sliding Scale [Novolog Vial Sliding Scale -] 1 vial SQ ACHS units 06/02 Tamsulosin HCl [Flomax -] 0.4 mg PO HS 06/02/16 Torsemide [Demadex -] 40 mg PO DAILY tablet 06/02/16 Family Disease History - Family Disease History Family History: Unable to Obtain Family Disease History: Diabetes: Father Review of Systems Unable to obtain ROS, reason: due to mental status Vital Signs: Vital Signs Temperature 94.7 F L 06/10/16 10:00 Pulse Rate 63 06/10/16 10:08 Respiratory Rate 19 06/10/16 10:00 Blood Pressure 103/66 06/10/16 10:00 O2 Sat by Pulse Oximetry (%) 99 06/10/16 10:08 Eyes: Yes: Conjunctiva Clear HENT: Yes: Atraumatic, Normocephalic Gastrointestinal: Yes: Normal Bowel Sounds, Soft. No: Tenderness JVD: No Carotid Bruit: No Heart Sounds: Yes: S1, S2 Murmur: No: Systolic Murmur Extremities: Yes: Other (Wound dressings on bilateral lower extremities) Edema: Yes Edema: LLE: 2+, RLE: 2+ Neurological: Yes: Confusion, Unresponsive - Other Data Labs, Other Data: CBC, BMP 06/10/16 06:00 06/10/16 04:45 INR, PTT INR 2.03 (0.82-1.09) H 06/10/16 04:45 Fibrinogen 405.0 mg/dL (238-498) 06/10/16 04:45 Troponin, BNP 06/10/16 04:45 Troponin I 0.07 H Troponin, BNP 06/10/16 04:45 Troponin I 0.07 H 06/09/16 ECG: Junctional rhythm with T wave abnormalities in V3-6 Echo: Report Reviewed (04/14/16: Severely reduced LV systolic function. Mod MAC. Mild MR. Mild TR. RVSP 30-40 mmHg. Mild to mod AV sclerosis. Mild AR. No pericardial effusion.) Imaging - Results Chest X-ray: Report Reviewed (06/10/16: Cardiomegaly. No effusion or infiltrates. ), Image Reviewed Assessment/Plan 76 yo male with CAD, prior DE (mild diffuse prox RCA disease, no intervention), reported paroxysmal atrial fib/flutter (on Eliquis), HFrEF (severely reduced LV systolic function per 04/14/16 echo), HTN, DM, CKD, hyperlipidemia, who was recently hospitalized at [facility] from 05/23-06/02/16 for cellulitis/ abscess of left shoulder and lower extremities, and bacteremia. Admitted now with septic shock (hypotension, hypothermia), anemia, and acute on chronic renal failure. Currently on norepinephrine gtt, and dobutamine gtt (started today by intensive care team). Patient's anemia is also a possible contributing factor. Cardiology consult was requested for minimally elevated troponins of 0.07 -> 0.07. Elevated BNP is unhelpful in determining if patient is in decompensated CHF in setting of renal failure. Would not follow this lab value any further. Initial ECG on 06/09/16 demonstrated junctional rhythm with T wave abnormalities in V3-6. Currently in sinus per telemetry. RECS: Currently on norepinephrine gtt for septic shock. Do not suspect that patient is in cardiogenic shock at this time. Would titrate off dobutamine if patient is responding to norepinephrine gtt to avoid exacerbating any potential tachyarrhythmias. Minimally elevated trops 0.07 in setting of chronic renal failure is not clinically significant. Transfuse with PRBCs as needed. Would try to keep Hgb closer to 10 given his cardiac history. Will follow. Call with questions. Further recs as per ICU team and ID service.
[2016-06-10] MEDS ORDERED: DOBUTAMINE 250 MG/D5W - 250 ML ONE (13:13)
[2016-06-10] MEDS: DOBUTAMINE HCL 250,000 MCG in SODIUM CHLORIDE 230 ML IV SCH (13:27)
--- NOTE | 2016-06-10 13:28 | EKG ---
Test Reason : Blood Pressure : / mmHG Vent. Rate : 060 BPM Atrial Rate : 060 BPM P-R Int : 000 ms QRS Dur : 126 ms QT Int : 476 ms P-R-T Axes : 000 004 170 degrees QTc Int : 476 ms SINUS RHYTHM WITH 1ST DEGREE A-V BLOCK WITH FREQUENT PREMATURE VENTRICULAR COMPLEXES IN A PATTERN OF BIGEMINY NON-SPECIFIC INTRA-VENTRICULAR CONDUCTION BLOCK T WAVE ABNORMALITY, CONSIDER ANTEROLATERAL ISCHEMIA ABNORMAL ECG WHEN COMPARED WITH ECG OF 09-JUN-2016 23:54, VENTRICULAR ECTOPIES Confirmed by LAKESHA SHAH MD ([id number]) on 06/10/2016 1:28:11 PM Referred By: Confirmed By:LAKESHA SHAH MD
--- NOTE | 2016-06-10 13:30 | EKG ---
Test Reason : Blood Pressure : / mmHG Vent. Rate : 045 BPM Atrial Rate : 277 BPM P-R Int : 000 ms QRS Dur : 134 ms QT Int : 604 ms P-R-T Axes : 000 002 198 degrees QTc Int : 522 ms UNDETERMINED RHYTHM LIKELY MARKED SINUS BRADYCARDIA WITH 1ST DEGREE AV BLOCK NON-SPECIFIC INTRA-VENTRICULAR CONDUCTION BLOCK CANNOT RULE OUT SEPTAL INFARCT , AGE UNDETERMINED T WAVE ABNORMALITY, CONSIDER ANTEROLATERAL ISCHEMIA ABNORMAL ECG WHEN COMPARED WITH ECG OF 23-MAY-2016 17:05, VENT. RATE HAS DECREASED QRS DURATION HAS INCREASED 1ST DEGREE AV BLOCK IS SEEN Confirmed by LAKESHA SHAH MD ([id number]) on 06/10/2016 1:30:32 PM Referred By: Confirmed By:LAKESHA SHAH MD
--- NOTE | 2016-06-10 13:31 | CONS ---
DATE OF CONSULTATION: DATE OF DICTATION: 06/10/2016 INFECTIOUS DISEASE CONSULTATION HISTORY OF PRESENT ILLNESS: The patient is a 76-year-old male evaluated for septic shock. History was obtained from the chart because he cannot give a history secondary to his mental state. The patient recently was hospitalized at [facility] from May 23 through June 02 for sepsis. At that time his course was complicated by Pseudomonas bacteremia, for which he received a course of IV antibiotic therapy. He was discharged to a group home facility with a catheter, to complete a course of IV antibiotic therapy. [facility] when he was noted to be hypotensive and hypothermic. In addition, he had electrolyte imbalance, including hyponatremia and hyperkalemia, as well as acute renal failure. He was transferred to the emergency room, where he required IV fluids and pressors for his hypotension. He was placed on a warming blanket. He was transferred to the intensive care unit. He required a nonrebreather mask for dyspnea. At the present time he is awake. He attempts to converse; however, is unable to offer any complaints. He was empirically treated with IV antibiotics. PAST MEDICAL HISTORY: Positive for diabetes mellitus, chronic kidney disease, COPD, congestive heart failure, gastroesophageal reflux, hypertension, history of resistant urinary tract infection. PAST SURGICAL HISTORY: Status post left shoulder abscess, port placement, multiple decubitus ulcers. ALLERGIES: No known allergies. MEDICATIONS: Include norepinephrine, azithromycin, dopamine, Protonix, Synthroid. SOCIAL HISTORY: detention resident. Dependent in activities of daily living. No active tobacco or alcohol use. REVIEW OF SYSTEMS: Neurologic: Positive for altered mentation. Cardiac: Negative for chest pain or palpitations. Respiratory: Positive for dyspnea and possible new infiltrate. Gastrointestinal: Negative for vomiting or diarrhea. Genitourinary: Chronic kidney disease. LABORATORY DATA: White count 12.0, hematocrit 20.4, platelet count 195. BUN 92, creatinine 3.6. Urinalysis negative. Cultures pending. DIAGNOSTIC STUDIES: Chest x-ray shows enlarged heart with what appears to be an infiltrate right middle and right lower lobe. PHYSICAL EXAMINATION: General: The patient is awake and responsive. Vital Signs: Temperature 97.4, blood pressure 103/66, pulse 55 and regular, respirations 18 per minute. HEENT: Sclerae anicteric. Cardiac: Heart sounds S1, S2. Lungs: Diminished breath sounds bilaterally. Abdomen: Distended. No tenderness elicited. No mass, rebound or rigidity. Genitalia: Positive scrotal edema. Extremities: Positive for lower extremity edema. Skin: Positive ulcerations present on the lower extremities bilaterally. Decubitus ulcers present left shoulder, sacrum, buttocks, heels. Catheter site right chest area with no erythema or drainage. IMPRESSION: 1. Sepsis/septic shock. 2. Chronic leg ulcers and decubitus ulcers, possible source of sepsis. 3. Right middle lobe/right lower lobe infiltrate, possible healthcare-acquired pneumonia. 4. Renal failure. 5. History of resistant Pseudomonas bacteremia. 6. Hypothermia and hypotension secondary to sepsis. PLAN: Pending sepsis workup, empiric antibiotic coverage for suspected resistant pathogens with vancomycin and meropenem, adjusted for renal failure. Continue hemodynamic support and ICU monitoring. Prognosis is poor. We will follow. Thank you for the kind referral. JOSH CHILDS M.D. [id number]
--- NOTE | 2016-06-10 14:49 | CONSULT ---
Consultation: REQUESTING PROVIDER: CONSULT REQUEST: We have been asked to medically evaluate this patient for ( specify). HISTORY OF PRESENT ILLNESS: 76 yo male with past medical h/o CAD, prior ME, paroxysmal atrial fib/flutter (on Eliquis), CHF with Ef 30% with lv global hypokinesia, HTN, DM, CKD, hyperlipidemia, who was recently hospitalized at [facility] from 05/23-06/02/16 for cellulitis/abscess of left shoulder and lower extremities, and bacteremia. He came again to [facility] last evening () with hypothermia, hyponatremia, anemia, hypotension, and abdiaziz on ckd. Patient was given meropenem, vanco, zosyn, iv fluid and was started on nor epi and dopamin. REVIEW OF SYSTEMS: unable to obtain, patient is poor historian PHYSICAL EXAMINATION Vital Signs - 24 hr 06/10/16 06/10/16 06/10/16 02:48 03:36 03:40 Temperature 91.0 F L 92 F L Pulse Rate 53 L 62 Pulse Rate [ 56 L Right Radial] Respiratory 18 20 Rate Blood Pressure 76/49 76/49 Blood Pressure 101/70 [Right Arm] O2 Sat by Pulse 93 L Oximetry (%) 06/10/16 06/10/16 06/10/16 03:50 04:00 04:15 Temperature 92.1 F L 92.2 F L Pulse Rate 55 L 54 L 59 L Pulse Rate [ Right Radial] Respiratory 20 20 17 Rate Blood Pressure 88/53 84/47 66/45 Blood Pressure [Right Arm] O2 Sat by Pulse Oximetry (%) 06/10/16 06/10/16 06/10/16 04:30 04:42 04:50 Temperature 92.3 F L Pulse Rate 55 L 62 56 L Pulse Rate [ Right Radial] Respiratory 18 16 18 Rate Blood Pressure 93/61 68/58 115/92 Blood Pressure [Right Arm] O2 Sat by Pulse Oximetry (%) 06/10/16 06/10/16 06/10/16 05:11 05:15 07:00 Temperature 92.3 F L 93.1 F L Pulse Rate 62 61 Pulse Rate [ Right Radial] Respiratory 18 18 20 Rate Blood Pressure 112/77 116/72 Blood Pressure [Right Arm] O2 Sat by Pulse 100 Oximetry (%) 06/10/16 06/10/16 06/10/16 08:00 09:00 10:00 Temperature 93.4 F L 93.6 F L 94.7 F L Pulse Rate 59 L 58 L 55 L Pulse Rate [ Right Radial] Respiratory 18 19 19 Rate Blood Pressure 114/42 95/54 103/66 Blood Pressure [Right Arm] O2 Sat by Pulse 99 Oximetry (%) 06/10/16 06/10/16 10:08 13:27 Temperature Pulse Rate 63 60 Pulse Rate [ Right Radial] Respiratory Rate Blood Pressure 118/76 Blood Pressure [Right Arm] O2 Sat by Pulse 99 Oximetry (%) GENERAL: Awake, responds to his name, remember his date of . HEAD: Normal with no signs of trauma. EYES: Pupils equal, round and reactive to light, EARS, NOSE, THROAT: Ears normal, nares patent, oropharynx clear without exudates. dry mucous membranes. NECK no jvd, no lymphadenopathy LUNGS: Breath sounds equal, clear to auscultation bilaterally, tachypnea, pick line cath in situ, dressing changed HEART: s1s2 normal, ABDOMEN: Soft, nontender, not distended, normoactive bowel sounds, no guarding, no rebound, no masses. scrotal and penile swelling present UPPER EXTREMITIES: 2+ pulses, warm, well-perfused. No cyanosis. No clubbing. Cap refill <2 seconds. No peripheral edema. LOWER EXTREMITIES: multiple ulcers resent on b/l lower limb, b/l pidding edema + +++ NEUROLOGICAL: unobtainable SKIN: cold, on hector hugger Laboratory Results - last 24 hr 06/10/16 06/10/16 06/10/16 03:54 04:00 04:45 WBC RBC Hgb Hct MCV MCHC RDW Plt Count MPV Neutrophils % Lymphocytes % Monocytes % Eosinophils % Basophils % ESR INR PTT (Actin FS) Fibrinogen Puncture Site Right radial ABG pH 7.23 L* ABG pCO2 at Pt Temp 31.1 L ABG pO2 at Pt Temp 235.0 H* ABG HCO3 12.5 L* ABG O2 Sat (Measured) 100.0 H* ABG O2 Content 9.9 L* ABG Base Excess -13.6 L* Frankie Test Positive O2 Delivery Device Nrm Oxygen Flow Rate 100% PEEP 0.0 Sodium 126 L Potassium 5.0 Chloride 94 L Carbon Dioxide 18 L Anion Gap 14 BUN 92 H Creatinine 3.6 H Creat Clearance w eGFR 16.57 POC Glucometer [phone] Random Glucose 227 H D Lactic Acid Calcium 7.2 L Phosphorus 4.6 Magnesium 2.1 Total Bilirubin 0.6 AST 45 H ALT 27 Alkaline Phosphatase 89 Creatine Kinase 370 H CK-MB (CK-2) Rel Index Troponin I 0.07 H C-Reactive Protein Total Protein 4.9 L Albumin 1.7 L Vitamin B12 Blood Type Antibody Screen Crossmatch 06/10/16 06/10/16 06/10/16 04:45 04:45 04:45 WBC RBC Hgb Hct MCV MCHC RDW Plt Count MPV Neutrophils % Lymphocytes % Monocytes % Eosinophils % Basophils % ESR 25 H INR PTT (Actin FS) Fibrinogen Puncture Site ABG pH ABG pCO2 at Pt Temp ABG pO2 at Pt Temp ABG HCO3 ABG O2 Sat (Measured) ABG O2 Content ABG Base Excess Frankie Test O2 Delivery Device Oxygen Flow Rate PEEP Sodium Potassium Chloride Carbon Dioxide Anion Gap BUN Creatinine Creat Clearance w eGFR POC Glucometer Random Glucose Lactic Acid Calcium Phosphorus Magnesium Total Bilirubin AST ALT Alkaline Phosphatase Creatine Kinase CK-MB (CK-2) Rel Index Troponin I C-Reactive Protein 9.5 H D Total Protein Albumin Vitamin B12 Blood Type A POSITIVE Antibody Screen Negative Crossmatch See Detail 06/10/16 06/10/16 06/10/16 04:45 04:45 04:45 WBC RBC Hgb Hct MCV MCHC RDW Plt Count MPV Neutrophils % Lymphocytes % Monocytes % Eosinophils % Basophils % ESR INR 2.03 H PTT (Actin FS) 47.2 H Fibrinogen 405.0 Puncture Site ABG pH ABG pCO2 at Pt Temp ABG pO2 at Pt Temp ABG HCO3 ABG O2 Sat (Measured) ABG O2 Content ABG Base Excess Frankie Test O2 Delivery Device Oxygen Flow Rate PEEP Sodium Potassium Chloride Carbon Dioxide Anion Gap BUN Creatinine Creat Clearance w eGFR POC Glucometer Random Glucose Lactic Acid 2.542 H* Calcium Phosphorus Magnesium Total Bilirubin 0.6 AST ALT Alkaline Phosphatase Creatine Kinase CK-MB (CK-2) Rel Index Troponin I C-Reactive Protein Total Protein Albumin Vitamin B12 Blood Type Antibody Screen Crossmatch 06/10/16 06/10/16 06/10/16 04:45 04:45 06:00 WBC 12.0 H RBC 2.30 L Hgb 6.4 L* Hct 20.4 L MCV 88.6 MCHC 31.5 L RDW 18.6 H Plt Count 195 MPV 9.4 Neutrophils % 97.3 H Lymphocytes % 1.9 L Monocytes % 0.5 L D Eosinophils % 0.0 Basophils % 0.3 ESR INR PTT (Actin FS) Fibrinogen Puncture Site ABG pH ABG pCO2 at Pt Temp ABG pO2 at Pt Temp ABG HCO3 ABG O2 Sat (Measured) ABG O2 Content ABG Base Excess Frankie Test O2 Delivery Device Oxygen Flow Rate PEEP Sodium Potassium Chloride Carbon Dioxide Anion Gap BUN Creatinine Creat Clearance w eGFR POC Glucometer Random Glucose Lactic Acid Calcium Phosphorus Magnesium Total Bilirubin AST ALT Alkaline Phosphatase Creatine Kinase CK-MB (CK-2) Rel Index Cancelled Troponin I C-Reactive Protein Total Protein Albumin Vitamin B12 3934 H D Blood Type Antibody Screen Crossmatch 06/10/16 06/10/16 06/10/16 06:10 08:00 12:09 WBC RBC Hgb Hct MCV MCHC RDW Plt Count MPV Neutrophils % Lymphocytes % Monocytes % Eosinophils % Basophils % ESR INR PTT (Actin FS) Fibrinogen Puncture Site ABG pH ABG pCO2 at Pt Temp ABG pO2 at Pt Temp ABG HCO3 ABG O2 Sat (Measured) ABG O2 Content ABG Base Excess Frankie Test O2 Delivery Device Oxygen Flow Rate PEEP Sodium Potassium Chloride Carbon Dioxide Anion Gap BUN Creatinine Creat Clearance w eGFR POC Glucometer [phone] Random Glucose Lactic Acid 3.641 H* Calcium Phosphorus Magnesium Total Bilirubin AST ALT Alkaline Phosphatase Creatine Kinase CK-MB (CK-2) Rel Index Troponin I C-Reactive Protein Total Protein Albumin Vitamin B12 Blood Type Antibody Screen Crossmatch Active Medications Generic Name Dose Route Start Last Admin Trade Name Freq PRN Reason Stop Dose Admin Albuterol Sulfate 1 amp 06/10/16 04:14 Ventolin 0.083% Nebulizer Soln - NEB Q4H PRN SHORT OF BREATH/WHEEZING Albuterol/Ipratropium 1 amp 06/10/16 06:00 06/10/16 14:06 Duoneb - NEB 1 amp TIDR SISI Administration Brimonidine Tartrate 1 drop 06/10/16 10:00 06/10/16 09:28 Alphagan 0.2% - OU 1 drop BID SISI Administration Norepinephrine Bitartrate 8, 500 mls @ 18.75 mls/hr 06/10/16 04:00 06/10/16 04: 15 000 mcg/ Dextrose IV 8 mcg/min TITR SISI Titration Protocol 5 MCG/MIN Azithromycin 250 mg/ Dextrose 250 mls @ 250 mls/hr 06/10/16 22:00 IVPB DAILY@2200 SISI Pantoprazole Sodium 100 mls @ 200 mls/hr 06/10/16 06:00 06/10/16 05:46 Protonix 40mg Ivpb (Pre-Docked) IVPB 200 mls/hr BID@0600,1800 SISI Administration Sodium Chloride 1,000 mls @ 50 mls/hr 06/10/16 05:45 06/10/16 05:44 Normal Saline - IV 50 mls/hr ASDIR SISI Administration Meropenem 250 mg/ Dextrose 100 mls @ 400 mls/hr 06/10/16 14:00 IVPB BID SISI Dobutamine HCl 250,000 mcg/ 250 mls @ 17.56 mls/hr 06/10/16 13:00 06/10/16 13: 27 Sodium Chloride IV 17.56 mls/hr TITR SISI Administration Protocol 2.5 MCG/KG/MIN Levothyroxine Sodium 25 mcg 06/10/16 07:00 06/10/16 06:03 Synthroid Injection - IVPUSH 25 mcg AM SISI Administration Echo: Report Reviewed (04/14/16: Severely reduced LV systolic function. Mod MAC. Mild MR. Mild TR. RVSP 30-40 mmHg. Mild to mod AV sclerosis. Mild AR. No pericardial effusion.) ASSESSMENT/PLAN: septic shock secondary to multiple ulcers continue IV antibiotics as per id, meropenem and vanco follow blood culture and urine culture. on nor epi and dobutamine ( will taper dobutamin, watch for arrhythmia, renal function) trend lactic acid follow blood and urine culture monitor vitals monitor intake out put, patient urine out put 20 ml since admission. id consult follow abg ph 7.30, pco2 27.8, po2 102, hco3 13.4 on 50% venti mask will give him bolus of iv fluid 250ml, watch for fluid overload. hyponatremia on ns 50ml/hr monitor sodium increas 0.5 to 1 meq/hr not more than 12 meq in 24 hour abdiaziz on ckd probably pre renal monitor cr / bun monitor renal output nephrology on case hold lasix follow urine electrolyte, fena, urine and serum osmolarity lactic acidosis could be due to anemia vs sepsis shock trend lactic acid hypothermia on hector hugger rectal temp increased to 96 h/o cad, A flutter, chf, global hypokinesia alaquis on hold due to anemia, follow stool for occult taper dobutamin ( can cause arrthymia ) cardiology on case hold lasix for now last ecjo ef 30 and global hypokinesia anemia follow stool for occult received 2 unit pc follow hb follow haemoglobin h/o copd not active on duoneb DM on sliding scale follow bgm fluid ; ns 50ml/hr electrolyte ; repeat in am nutrition ; npo dispo : admit in icu Dispo: We will continue to follow the patient. Thank you for this consultative opportunity. Visit type - Emergency Visit Emergency Visit: Yes ED Registration Date: 06/10/16 Care time: The patient presented to the Emergency Department on the above date and was hospitalized for further evaluation of their emergent condition. - New Patient This patient is new to me today: Yes Date on this admission: 06/10/16 - Critical Care Critical Care patient: Yes Total Critical Care Time (in minutes): 65 Critical Care Statement: The care of this patient involved high complexity decision making to prevent further life threatening deterioration of the patient 's condition and/or to evalute & treat vital organ system(s) failure or risk of failure.
[2016-06-10] MEDS: MEROPENEM 250 MG in DEXTROSE 5%-WATER - 100 ML IVPB SCH (15:00)
[2016-06-10 15:10] LABS: ARTERIAL BLD GAS O2 SATURATION 98.2 % (90-98.9); ARTERIAL BLOOD GAS BASE EXCESS -11.6 meq/l (-2-2); ARTERIAL BLOOD GAS HCO3 13.4 meq/L (22-26)
[2016-06-10 15:11] LABS: ALLENS TEST POSITIVE; ART PUNCT SITE RIGHT RADIAL; LPM/O2% 50% VENTI MASK; PT. ON O2? YES
--- NOTE | 2016-06-10 15:24 | CONSULT ---
Consult Consult Specialty:: Nephrology Reason for Consultation:: CASE and hyponatremia - History of Present Illness Chief Complaint: sent in for hypothermia and abnormal labs History of Present Illness: Pt is a 76 year old male with pmhx of CKD, CHF, GERD, HTN, COPD, DM, glaucoma, and back infection/abscess who was sent in from the [place] for hypothermia and abnormal labs. He was found to be hypothermic in ER. He was also found to be hyponatremia and in renal failure. Pt was admitted to the ICU for sepsis. He was hypotensive and on two pressors. He is awake but not able to give much history. He does complain of shortness of breath. Pt was on torsemide as outpt. 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 Occupation: worked for the [employer] Home Medications - Allergies Allergies/Adverse Reactions: Allergies Allergy/AdvReac Type Severity Reaction Status Date / Time No Known Allergies Allergy Verified 05/23/16 23:31 - Home Medications Home Medications: Ambulatory Orders Acetaminophen [Tylenol .Regular Strength -] 650 mg PO Q6H PRN #0 tablet Albuterol 2.5/Ipratropium 0.5 [Duoneb -] 1 amp NEB Q6H PRN #0 amp 04/18/16 Apixaban [Eliquis -] 5 mg PO BID tablet 04/18/16 Ascorbic Acid [Vitamin C -] 500 mg PO DAILY tablet 04/18/16 Brimonidine Tartrate [Alphagan 0.2% -] 1 drop OU BID drops 04/18/16 Folic Acid - 1 mg PO DAILY tablet 04/18/16 Insulin Sliding Scale [Novolog Vial Sliding Scale -] 1 vial SQ ACHS units 04/18 Isosorbide Dinitrate [Isordil -] 20 mg PO BIDISORDIL tablet 04/18/16 Levothyroxine [Synthroid -] 50 mcg PO DAILY@0700 tablet 04/18/16 Metoprolol Succinate [Toprol XL -] 25 mg PO BID tab.sr.24h 04/18/16 Multivitamins [Multivit ([facility] Formulary)] 1 tab PO DAILY tab 04/18/16 Ranitidine [Zantac -] 150 mg PO BID tablet 04/18/16 Torsemide [Demadex -] 40 mg PO DAILY tablet 04/18/16 Zinc Sulfate [Orazinc -] 220 mg PO DAILY capsule 04/18/16 Amiodarone HCl [Cordarone -] 200 mg PO DAILY 05/23/16 Collagenase Clostridium Hist. [Santyl -] 1 applic TP DAILY tube 06/02/16 Diphenhydramine HCl [Benadryl Capsule -] 25 mg PO HS PRN #0 06/02/16 Ertapenem Sodium [Invanz -] 0.5 gm IVPB DAILY 7 Days 06/02/16 Insulin Sliding Scale [Novolog Vial Sliding Scale -] 1 vial SQ ACHS units 06/02 Tamsulosin HCl [Flomax -] 0.4 mg PO HS 06/02/16 Torsemide [Demadex -] 40 mg PO DAILY tablet 06/02/16 Family Disease History - Family Disease History Family Disease History: Diabetes: Father Review of Systems Unable to obtain ROS, reason: pt lethargic - Review of Systems Constitutional: reports: Malaise Physical Exam Vital Signs: Vital Signs Temperature 97.1 F L 06/10/16 15:00 Pulse Rate 83 06/10/16 15:00 Respiratory Rate 27 H 06/10/16 15:00 Blood Pressure 100/62 06/10/16 15:00 O2 Sat by Pulse Oximetry (%) 99 06/10/16 10:08 Constitutional: Yes: Calm Eyes: Yes: Conjunctiva Clear HENT: Yes: Atraumatic Cardiovascular: Yes: S1, S2 Respiratory: Yes: On Venti-Mask, Tachypnea Gastrointestinal: Yes: Soft, Abdomen, Obese Renal/: Yes: López Present, Oliguria Musculoskeletal: Yes: Muscle Weakness Edema: Yes Edema: LLE: 1+, RLE: 1+ Wound/Incision: Yes: Dressing Dry and Intact Neurological: Yes: Other (drowsy) Labs: CBC, BMP 06/10/16 06:00 06/10/16 04:45 Laboratory Tests 06/09/16 06/09/16 06/10/16 23:50 23:50 03:54 WBC Hgb 6.8 L* D Plt Count 187 ABG pH 7.23 L* ABG pCO2 at Pt Temp 31.1 L ABG pO2 at Pt Temp 235.0 H* ABG HCO3 12.5 L* ABG O2 Sat (Measured) 100.0 H* Sodium 126 L Potassium 5.4 H Chloride 96 L Carbon Dioxide Anion Gap BUN 97 H D Creatinine 3.6 H D Lactic Acid 06/10/16 06/10/16 06/10/16 04:45 04:45 06:00 WBC 12.0 H Hgb 6.4 L* Plt Count 195 ABG pH ABG pCO2 at Pt Temp ABG pO2 at Pt Temp ABG HCO3 ABG O2 Sat (Measured) Sodium 126 L Potassium 5.0 Chloride 94 L Carbon Dioxide 18 L Anion Gap 14 BUN 92 H Creatinine 3.6 H Lactic Acid 2.542 H* 06/10/16 06/10/16 06/10/16 08:00 14:00 14:55 WBC Hgb Plt Count ABG pH 7.30 L ABG pCO2 at Pt Temp 27.8 L ABG pO2 at Pt Temp 102.0 H D ABG HCO3 13.4 L* ABG O2 Sat (Measured) 98.2 Sodium Potassium Chloride Carbon Dioxide Anion Gap BUN Creatinine Lactic Acid 3.641 H* Pending Imaging - Results Chest X-ray: Report Reviewed Cat Scan: Report Reviewed Problem List - Problems (1) Acute hyperkalemia Code(s): E87.5 - HYPERKALEMIA (2) Hyponatremia Code(s): E87.1 - HYPO-OSMOLALITY AND HYPONATREMIA (3) Hypotension Code(s): I95.9 - HYPOTENSION, UNSPECIFIED Qualifiers: Hypotension type: other hypotension type Qualified Code(s): I95.89 - Other hypotension (4) Acute on chronic renal failure Code(s): N17.9 - ACUTE KIDNEY FAILURE, UNSPECIFIED N18.9 - CHRONIC KIDNEY DISEASE, UNSPECIFIED (5) Anemia Code(s): D64.9 - ANEMIA, UNSPECIFIED Qualifiers: Other causes of anemia: chronic disease, kidney (6) COPD (chronic obstructive pulmonary disease) Code(s): J44.9 - CHRONIC OBSTRUCTIVE PULMONARY DISEASE, UNSPECIFIED (7) Congestive heart failure (CHF) Code(s): I50.9 - HEART FAILURE, UNSPECIFIED Qualifiers: Congestive heart failure type: systolic Congestive heart failure chronicity: chronic Qualified Code(s): I50.22 - Chronic systolic (congestive ) heart failure (8) DMII (diabetes mellitus, type 2) Code(s): E11.9 - TYPE 2 DIABETES MELLITUS WITHOUT COMPLICATIONS Qualifiers: Diabetes mellitus complication detail: with other kidney complication (9) CKD (chronic kidney disease) Code(s): N18.9 - CHRONIC KIDNEY DISEASE, UNSPECIFIED Assessment/Plan Current Medications Generic Name Dose Route Start Last Admin Trade Name Freq PRN Reason Stop Dose Admin Albuterol Sulfate 1 amp 06/10/16 04:14 Ventolin 0.083% Nebulizer Soln - NEB Q4H PRN SHORT OF BREATH/WHEEZING Albuterol/Ipratropium 1 amp 06/10/16 06:00 06/10/16 14:06 Duoneb - NEB 1 amp TIDR SISI Administration Brimonidine Tartrate 1 drop 06/10/16 10:00 06/10/16 09:28 Alphagan 0.2% - OU 1 drop BID SISI Administration Norepinephrine Bitartrate 8, 500 mls @ 18.75 mls/hr 06/10/16 04:00 06/10/16 04: 15 000 mcg/ Dextrose IV 8 mcg/min TITR SISI Titration Protocol 5 MCG/MIN Azithromycin 250 mg/ Dextrose 250 mls @ 250 mls/hr 06/10/16 22:00 IVPB DAILY@2200 SISI Pantoprazole Sodium 100 mls @ 200 mls/hr 06/10/16 06:00 06/10/16 05:46 Protonix 40mg Ivpb (Pre-Docked) IVPB 200 mls/hr BID@0600,1800 SISI Administration Sodium Chloride 1,000 mls @ 50 mls/hr 06/10/16 05:45 06/10/16 05:44 Normal Saline - IV 50 mls/hr ASDIR SISI Administration Meropenem 250 mg/ Dextrose 100 mls @ 400 mls/hr 06/10/16 14:00 IVPB BID SISI Dobutamine HCl 250,000 mcg/ 250 mls @ 17.56 mls/hr 06/10/16 13:00 06/10/16 13: 27 Sodium Chloride IV 17.56 mls/hr TITR SISI Administration Protocol 2.5 MCG/KG/MIN Levothyroxine Sodium 25 mcg 06/10/16 07:00 06/10/16 06:03 Synthroid Injection - IVPUSH 25 mcg AM SISI Administration Impression 1. CASE on CKD 2. sepsis with shock 3. cellulitis/abscess of back 4. CHF 5. hypothyroidism 6. hyperlipidemia 7. COPD 8. htn 9. a-fib 10. hyponatremia Plan - admit to ICU - pressors to MAP of 65 - montor urine output - hold diuretics - cont with fluids - cont oxygen - labs and meds reviewed - hyponatremia likely from dehydration - check urine lytes and creatinine - check cortosol level - check plasma and urine osm - check tsh level - will follow Dr Martinez
--- NOTE | 2016-06-10 15:38 | PN ---
Teaching Attending Note Name of Resident: Patricio Andrade ATTENDING PHYSICIAN STATEMENT I saw and evaluated the patient. I reviewed the resident's note and discussed the case with the resident. I agree with the resident's findings and plan as documented. SUBJECTIVE: 76 yo male with listed medical history. Recent admission due to polymicrobial sepsis. Admitted with septic shock and MOF. He is lethargic but responsive to some simple questioning. Currently on NE and dopamine for hemodynamic support. Previous ECHO revealed severe LV dysfunction and hypokinesis. Intake & Output 06/07/16 06/08/16 06/09/16 06/10/16 23:59 23:59 23:59 23:59 Intake Total 1830 Output Total 20 Balance 1810 Weight 258 lb 1.6 oz Last Vital Signs Temp Pulse Resp BP Pulse Ox 97.1 F L 83 27 H 100/62 99 06/10/16 15:00 06/10/16 15:00 06/10/16 15:00 06/10/16 15:00 06/10/16 10:08 Active Medications Albuterol Sulfate (Ventolin 0.083% Nebulizer Soln -) 1 amp NEB Q4H PRN PRN Reason: SHORT OF BREATH/WHEEZING Albuterol/Ipratropium (Duoneb -) 1 amp NEB TIDR [facility] Last Admin: 06/10/16 14:06 Dose: 1 amp Brimonidine Tartrate (Alphagan 0.2% -) 1 drop OU BID [facility] Last Admin: 06/10/16 09:28 Dose: 1 drop Norepinephrine Bitartrate 8, (000 mcg/ Dextrose) 500 mls @ 18.75 mls/hr IV TITR [facility]; 5 MCG/MIN PRN Reason: Protocol Last Titration: 06/10/16 04:15 Dose: 8 mcg/min Azithromycin 250 mg/ Dextrose 250 mls @ 250 mls/hr IVPB DAILY@2200 [facility] Pantoprazole Sodium (Protonix 40mg Ivpb (Pre-Docked)) 100 mls @ 200 mls/hr IVPB BID@0600,1800 [facility] Last Admin: 06/10/16 05:46 Dose: 200 mls/hr Sodium Chloride (Normal Saline -) 1,000 mls @ 50 mls/hr IV ASDIR [facility] Last Admin: 06/10/16 05:44 Dose: 50 mls/hr Meropenem 250 mg/ Dextrose 100 mls @ 400 mls/hr IVPB BID [facility] Dobutamine HCl 250,000 mcg/ (Sodium Chloride) 250 mls @ 17.56 mls/hr IV TITR [facility]; 2.5 MCG/KG/MIN PRN Reason: Protocol Last Admin: 06/10/16 13:27 Dose: 17.56 mls/hr Levothyroxine Sodium (Synthroid Injection -) 25 mcg IVPUSH AM [facility] Last Admin: 06/10/16 06:03 Dose: 25 mcg GENERAL: Lethargic but arousable, mildly tachypneic at rest HEAD: Normal with no signs of trauma. EYES: (+) Pallor EARS, NOSE, THROAT: dry mucous membranes. NECK no jvd, no lymphadenopathy LUNGS: Scattered rhonchi, (+) tachypnea HEART: S1S2 ABDOMEN: Soft, obese, ND, no guarding, no rebound, no masses (+) scrotal and penile swelling UPPER EXTREMITIES: 2+ pulses, warm LOWER EXTREMITIES: multiple ulcers resent on b/l lower limb, b/l pidding edema + +++ NEUROLOGICAL: non-focal Laboratory Results - last 24 hr 06/10/16 06/10/16 06/10/16 03:54 04:00 04:45 WBC RBC Hgb Hct MCV MCHC RDW Plt Count MPV Neutrophils % Lymphocytes % Monocytes % Eosinophils % Basophils % ESR INR PTT (Actin FS) Fibrinogen Puncture Site Right radial ABG pH 7.23 L* ABG pCO2 at Pt Temp 31.1 L ABG pO2 at Pt Temp 235.0 H* ABG HCO3 12.5 L* ABG O2 Sat (Measured) 100.0 H* ABG O2 Content 9.9 L* ABG Base Excess -13.6 L* Frankie Test Positive O2 Delivery Device Nrm Oxygen Flow Rate 100% PEEP 0.0 Sodium 126 L Potassium 5.0 Chloride 94 L Carbon Dioxide 18 L Anion Gap 14 BUN 92 H Creatinine 3.6 H Creat Clearance w eGFR 16.57 POC Glucometer [phone] Random Glucose 227 H D Lactic Acid Calcium 7.2 L Phosphorus 4.6 Magnesium 2.1 Total Bilirubin 0.6 AST 45 H ALT 27 Alkaline Phosphatase 89 Creatine Kinase 370 H CK-MB (CK-2) Rel Index Troponin I 0.07 H C-Reactive Protein Total Protein 4.9 L Albumin 1.7 L Vitamin B12 Blood Type Antibody Screen Crossmatch 06/10/16 06/10/16 06/10/16 04:45 04:45 04:45 WBC RBC Hgb Hct MCV MCHC RDW Plt Count MPV Neutrophils % Lymphocytes % Monocytes % Eosinophils % Basophils % ESR 25 H INR PTT (Actin FS) Fibrinogen Puncture Site ABG pH ABG pCO2 at Pt Temp ABG pO2 at Pt Temp ABG HCO3 ABG O2 Sat (Measured) ABG O2 Content ABG Base Excess Frankie Test O2 Delivery Device Oxygen Flow Rate PEEP Sodium Potassium Chloride Carbon Dioxide Anion Gap BUN Creatinine Creat Clearance w eGFR POC Glucometer Random Glucose Lactic Acid Calcium Phosphorus Magnesium Total Bilirubin AST ALT Alkaline Phosphatase Creatine Kinase CK-MB (CK-2) Rel Index Troponin I C-Reactive Protein 9.5 H D Total Protein Albumin Vitamin B12 Blood Type A POSITIVE Antibody Screen Negative Crossmatch See Detail 06/10/16 06/10/16 06/10/16 04:45 04:45 04:45 WBC RBC Hgb Hct MCV MCHC RDW Plt Count MPV Neutrophils % Lymphocytes % Monocytes % Eosinophils % Basophils % ESR INR 2.03 H PTT (Actin FS) 47.2 H Fibrinogen 405.0 Puncture Site ABG pH ABG pCO2 at Pt Temp ABG pO2 at Pt Temp ABG HCO3 ABG O2 Sat (Measured) ABG O2 Content ABG Base Excess Frankie Test O2 Delivery Device Oxygen Flow Rate PEEP Sodium Potassium Chloride Carbon Dioxide Anion Gap BUN Creatinine Creat Clearance w eGFR POC Glucometer Random Glucose Lactic Acid 2.542 H* Calcium Phosphorus Magnesium Total Bilirubin 0.6 AST ALT Alkaline Phosphatase Creatine Kinase CK-MB (CK-2) Rel Index Troponin I C-Reactive Protein Total Protein Albumin Vitamin B12 Blood Type Antibody Screen Crossmatch 06/10/16 06/10/16 06/10/16 04:45 04:45 06:00 WBC 12.0 H RBC 2.30 L Hgb 6.4 L* Hct 20.4 L MCV 88.6 MCHC 31.5 L RDW 18.6 H Plt Count 195 MPV 9.4 Neutrophils % 97.3 H Lymphocytes % 1.9 L Monocytes % 0.5 L D Eosinophils % 0.0 Basophils % 0.3 ESR INR PTT (Actin FS) Fibrinogen Puncture Site ABG pH ABG pCO2 at Pt Temp ABG pO2 at Pt Temp ABG HCO3 ABG O2 Sat (Measured) ABG O2 Content ABG Base Excess Frankie Test O2 Delivery Device Oxygen Flow Rate PEEP Sodium Potassium Chloride Carbon Dioxide Anion Gap BUN Creatinine Creat Clearance w eGFR POC Glucometer Random Glucose Lactic Acid Calcium Phosphorus Magnesium Total Bilirubin AST ALT Alkaline Phosphatase Creatine Kinase CK-MB (CK-2) Rel Index Cancelled Troponin I C-Reactive Protein Total Protein Albumin Vitamin B12 3934 H D Blood Type Antibody Screen Crossmatch 06/10/16 06/10/16 06/10/16 06:10 08:00 12:09 WBC RBC Hgb Hct MCV MCHC RDW Plt Count MPV Neutrophils % Lymphocytes % Monocytes % Eosinophils % Basophils % ESR INR PTT (Actin FS) Fibrinogen Puncture Site ABG pH ABG pCO2 at Pt Temp ABG pO2 at Pt Temp ABG HCO3 ABG O2 Sat (Measured) ABG O2 Content ABG Base Excess Frankie Test O2 Delivery Device Oxygen Flow Rate PEEP Sodium Potassium Chloride Carbon Dioxide Anion Gap BUN Creatinine Creat Clearance w eGFR POC Glucometer [phone] Random Glucose Lactic Acid 3.641 H* Calcium Phosphorus Magnesium Total Bilirubin AST ALT Alkaline Phosphatase Creatine Kinase CK-MB (CK-2) Rel Index Troponin I C-Reactive Protein Total Protein Albumin Vitamin B12 Blood Type Antibody Screen Crossmatch Echo: Report Reviewed (04/14/16: Severely reduced LV systolic function. Mod MAC. Mild MR. Mild TR. RVSP 30-40 mmHg. Mild to mod AV sclerosis. Mild AR. No pericardial effusion.) ASSESSMENT/PLAN: Septic shock +/- cardiogenic shock Multiple skin ulcers Severe LV dysfunction/hypokinesis Electrolyte imbalance CASE Lactic acidosis Toxic Metabolic Encephalopathy IVF Titrate NE Trial of Dobutamine Follow cultures ID evaluation O2 as needed -> Low threshold for Intubation Aspiration precautions Strict I&O Trend Lactic Acid Renal evaluation Cardiology evaluation called ICU monitoring Dr Farrell CCTime 35"
--- NOTE | 2016-06-10 15:55 | EKG ---
Test Reason : Blood Pressure : / mmHG Vent. Rate : 087 BPM Atrial Rate : 115 BPM P-R Int : 000 ms QRS Dur : 148 ms QT Int : 398 ms P-R-T Axes : 000 -03 188 degrees QTc Int : 478 ms ATRIAL FIBRILLATION NON-SPECIFIC INTRA-VENTRICULAR CONDUCTION BLOCK ABNORMAL ECG WHEN COMPARED WITH ECG OF 10-JUN-2016 05:29, ATRIAL FIBRILLATION HAS REPLACED SINUS RHYTHM Confirmed by PABLO MOSQUERA, LAKESHA ([id number]) on 06/10/2016 3:55:19 PM Referred By: RIA BATISTA Confirmed By:LAKESHA SHAH MD
--- NOTE | 2016-06-10 17:12 | HP ---
Admitting History and Physical - Primary Care Physician PCP: Davin Dee - Admission Chief Complaint: SEPSIS/WEAKNESS/ALTERED MENTAL STATUS History of Present Illness: 76 Y/O CHRONICALLY ILL MALE AT [employer] WHO WAS SENT FOR WEAKNESS ,LETHARGY,SEPSIS, MULTIPLE WOUND INFECTIONS REQUIRING WOUND VAC TO HIS UPPER RIGHT BACK, B/L LEG INFECTIONS , DM, HTN, DIASTOLIC HEART FAILURE, COPD, CRI OBESITY, WAS ON IV ABX DISCHARGED 1 WEEK AGO FROM THE HOSPITAL. PRESENTS WITH HYPOTENSION, HYPOTHERMIA, LETHARGIC TREATED WITH IV ABX AND IVF SENT TO ICU. History Source: Patient, Medical Record - Past Medical History Cardiovascular: Yes: AFIB (atrial flutter), CHF (chronic systolic CHF), HTN Pulmonary: Yes: COPD Gastrointestinal: Yes: Diverticulosis, Peptic Ulcer Disease Renal/: Yes: Renal Inusuff Endocrine: Yes: Diabetes Mellitus - Past Surgical History Past Surgical History: Yes: Colonoscopy, Upper Endoscopy - Smoking History Smoking history: Never smoked Have you smoked in the past 12 months: No - Alcohol/Substance Use Hx Alcohol Use: No - Social History Occupation: worked for the [employer] Home Medications - Allergies Allergies/Adverse Reactions: Allergies Allergy/AdvReac Type Severity Reaction Status Date / Time No Known Allergies Allergy Verified 05/23/16 23:31 - Home Medications Home Medications: Ambulatory Orders Acetaminophen [Tylenol .Regular Strength -] 650 mg PO Q6H PRN #0 tablet Albuterol 2.5/Ipratropium 0.5 [Duoneb -] 1 amp NEB Q6H PRN #0 amp 04/18/16 Apixaban [Eliquis -] 5 mg PO BID tablet 04/18/16 Ascorbic Acid [Vitamin C -] 500 mg PO DAILY tablet 04/18/16 Brimonidine Tartrate [Alphagan 0.2% -] 1 drop OU BID drops 04/18/16 Folic Acid - 1 mg PO DAILY tablet 04/18/16 Insulin Sliding Scale [Novolog Vial Sliding Scale -] 1 vial SQ ACHS units 04/18 Isosorbide Dinitrate [Isordil -] 20 mg PO BIDISORDIL tablet 04/18/16 Levothyroxine [Synthroid -] 50 mcg PO DAILY@0700 tablet 04/18/16 Metoprolol Succinate [Toprol XL -] 25 mg PO BID tab.sr.24h 04/18/16 Multivitamins [Multivit ([facility] Formulary)] 1 tab PO DAILY tab 04/18/16 Ranitidine [Zantac -] 150 mg PO BID tablet 04/18/16 Torsemide [Demadex -] 40 mg PO DAILY tablet 04/18/16 Zinc Sulfate [Orazinc -] 220 mg PO DAILY capsule 04/18/16 Amiodarone HCl [Cordarone -] 200 mg PO DAILY 05/23/16 Collagenase Clostridium Hist. [Santyl -] 1 applic TP DAILY tube 06/02/16 Diphenhydramine HCl [Benadryl Capsule -] 25 mg PO HS PRN #0 06/02/16 Ertapenem Sodium [Invanz -] 0.5 gm IVPB DAILY 7 Days 06/02/16 Insulin Sliding Scale [Novolog Vial Sliding Scale -] 1 vial SQ ACHS units 06/02 Tamsulosin HCl [Flomax -] 0.4 mg PO HS 06/02/16 Torsemide [Demadex -] 40 mg PO DAILY tablet 06/02/16 Family Disease History - Family Disease History Family Disease History: Diabetes: Father Review of Systems - Review of Systems Constitutional: reports: Lethargy, Loss of Appetite, Weakness, Other Eyes: reports: No Symptoms HENT: reports: No Symptoms Neck: reports: No Symptoms Cardiovascular: reports: Palpitations, Shortness of Breath Respiratory: reports: Exercise Intolerance, SOB, SOB on Exertion Gastrointestinal: reports: No Symptoms Genitourinary: reports: Other Musculoskeletal: reports: Extremity Pain, Muscle Weakness Integumentary: reports: Lesions, Rash Neurological: reports: Confusion, Pre-Existing Deficit, Unsteady Gait, Weakness Endocrine: reports: Other Hematology/Lymphatic: reports: Other Psychiatric: reports: Other Physical Examination Vital Signs: Vital Signs Temperature 97.0 F L 06/10/16 16:00 Pulse Rate 64 06/10/16 16:00 Respiratory Rate 21 06/10/16 16:00 Blood Pressure 99/58 06/10/16 16:00 O2 Sat by Pulse Oximetry (%) 99 06/10/16 10:08 Constitutional: Yes: Severe Distress Eyes: Yes: Other HENT: Yes: Other Neck: Yes: Other Cardiovascular: Yes: Tachycardia, Pulse Irregular, Murmur Respiratory: Yes: Poor Air Entry, SOB, Tachypnea Gastrointestinal: Yes: WNL ...Rectal Exam: Yes: Other Renal/: Yes: López Present Breast(s): Yes: Other Musculoskeletal: Yes: Muscle Weakness Extremities: Yes: Erythema Edema: LLE: 2+, RLE: 2+ Integumentary: Yes: Erythema, Pressure Ulcer, Rash, Venous Stasis Changes Wound/Incision: Yes: Dressing Dry and Intact, Draining, Reddened, Excoriated, Unapproximated Neurological: Yes: Confusion, Pre-Existing Deficit, Weakness ...Motor Strength: LLE, RLE Psychiatric: Yes: Other (CONFUSED) Labs: CBC, BMP 06/10/16 06:00 06/10/16 04:45 Imaging - Results Chest X-ray: Report Reviewed Problem List - Problems (1) CKD (chronic kidney disease) Code(s): N18.9 - CHRONIC KIDNEY DISEASE, UNSPECIFIED (2) Hyponatremia Code(s): E87.1 - HYPO-OSMOLALITY AND HYPONATREMIA (3) Hypotension Code(s): I95.9 - HYPOTENSION, UNSPECIFIED Qualifiers: Hypotension type: other hypotension type Qualified Code(s): I95.89 - Other hypotension (4) Lung consolidation Code(s): J18.1 - LOBAR PNEUMONIA, UNSPECIFIED ORGANISM (5) Anemia Code(s): D64.9 - ANEMIA, UNSPECIFIED Qualifiers: Other causes of anemia: chronic disease, kidney (6) Atrial flutter Code(s): I48.92 - UNSPECIFIED ATRIAL FLUTTER (7) Bacteremia Code(s): R78.81 - BACTEREMIA (8) COPD (chronic obstructive pulmonary disease) Code(s): J44.9 - CHRONIC OBSTRUCTIVE PULMONARY DISEASE, UNSPECIFIED (9) DMII (diabetes mellitus, type 2) Code(s): E11.9 - TYPE 2 DIABETES MELLITUS WITHOUT COMPLICATIONS Qualifiers: Diabetes mellitus complication detail: with other kidney complication (10) Dyspnea Code(s): R06.00 - DYSPNEA, UNSPECIFIED Qualifiers: Dyspnea type: shortness of breath Qualified Code(s): R06.02 - Shortness of breath (11) Pressure ulcer of lower extremity, stage 1 Code(s): L89.891 - PRESSURE ULCER OF OTHER SITE, STAGE 1 (12) Sepsis Code(s): A41.9 - SEPSIS, UNSPECIFIED ORGANISM Qualifiers: Sepsis type: sepsis due to unspecified organism Qualified Code(s): A41.9 - Sepsis, unspecified organism (13) Weakness of both lower limbs Code(s): M62.81 - MUSCLE WEAKNESS (GENERALIZED) (14) Wound of left shoulder Code(s): S41.002A - UNSPECIFIED OPEN WOUND OF LEFT SHOULDER, INITIAL ENCOUNTER Qualifiers: Encounter type: subsequent encounter Qualified Code(s): S41.002D - Unspecified open wound of left shoulder, subsequent encounter Assessment/Plan PATIENT IS STRUGGLING WITH RAPID RESPIRATIONS I SPOKE TOT E RESIDENT TO CHECK ABG STAT AND CALL PULMONARY FOR BIPAP VERSUS INTUBATION. IV ABX IVF ID AND CARDIOLOGY CONSULT PATIENT FOLLOWS WITH DR POLLARD IN MY OFFICE FOR CARDIOLOGY AND WILL ASK DR BHAT FROM HIS [facility] TEAM TO SEE HIM HERE. WOUND CARE RENAL F/U
[2016-06-10] MEDS: INSULIN SLIDING SCALE (NOVOLOG) 1 VIAL SQ SCH ×2 (18:25→22:42)
[2016-06-10 21:18] LABS: BASOPHIL 0.3 % (0-2.0); MCH 28.6 pg (25.7-33.7); MCHC 32.3 g/dl (32.0-35.9); MEAN CELL VOLUME 88.4 fl (80-96); MEAN PLT VOLUME 8.9 fl (7.5-11.1); NEUTROPHILS 90.3 % (42.8-82.8); PLATELET COUNT 210 K/MM3 (134-434); RDW 17.2 % (11.9-15.9); WHITE BLOOD COUNT 16.8 K/mm3 (4.0-10.0)
[2016-06-10] MEDS ORDERED: morphine CARPU-JECT 2 MG/1 ML DISP.SYRIN IVPUSH ONE (22:13)
[2016-06-10 22:14] LABS: OSMOLALITY,SERUM 300 mosm/kg (278-305)
[2016-06-10] MEDS: HEPARIN NA (PORCINE) 5,000 UNITS/ML 1ML VIAL SQ SCH (22:41)
[2016-06-10] MEDS: AZITHROMYCIN IVPB 250 MG in DEXTROSE 5%-WATER - 250 ML IVPB SCH (22:42)
[2016-06-11] MEDS: ALBUTEROL SO4 2.5/IPRATROPIUM 0.5 INH SOL 3 ML VIAL.NEB. NEB SCH ×4 (00:05→22:30)
[2016-06-11] MEDS ORDERED: NOREPINEPHRINE BITARTRATE 4 MG/4 ML ML IV ONE ×3 (01:47→18:04)
[2016-06-11] MEDS: NOREPINEPHRINE BITARTRATE 8,000 MCG in DEXTROSE 5%-WATER - 492 ML IV SCH ×2 (05:05→18:22)
[2016-06-11] MEDS: SODIUM CHLORIDE 1,000 ML IV SCH (05:47)
[2016-06-11 06:06] LABS: FREE T3 1.8 pg/mL (2.0-4.4)
[2016-06-11 06:07] LABS: BASOPHIL 0.2 % (0-2.0); EOSINOPHIL 0.1 % (0-4.5); MCH 29.1 pg (25.7-33.7); MEAN CELL VOLUME 88.1 fl (80-96); MEAN PLT VOLUME 8.8 fl (7.5-11.1); NEUTROPHILS 88.1 % (42.8-82.8); PLATELET COUNT 197 K/MM3 (134-434); RDW 16.7 % (11.9-15.9); WHITE BLOOD COUNT 14.7 K/mm3 (4.0-10.0)
[2016-06-11] MEDS: HEPARIN NA (PORCINE) 5,000 UNITS/ML 1ML VIAL SQ SCH ×3 (06:11→23:04)
[2016-06-11] MEDS: INSULIN SLIDING SCALE (NOVOLOG) 1 VIAL SQ SCH ×4 (06:11→23:12)
[2016-06-11] MEDS: PANTOPRAZOLE SODIUM 100 ML IVPB SCH ×2 (06:11→18:21)
[2016-06-11] MEDS: LEVOTHYROXINE SODIUM 100 MCG VIAL IVPUSH SCH (06:24)
[2016-06-11 06:39] LABS: ALBUMIN 1.7 g/dl (3.4-5.0); CALCIUM 7.3 mg/dL (8.5-10.1); CREATININE 3.8 mg/dL (0.7-1.3); PHOSPHOROUS 4.9 mg/dL (2.5-4.9)
[2016-06-11 06:43] LABS: THYROID STIMULATING HORMONE 2.52 uIU/ml (0.358-3.74)
[2016-06-11 06:44] LABS: INR 1.85 (0.82-1.09); MAGNESIUM 2.1 mg/dL (1.8-2.4); PHOSPHOROUS 5.1 mg/dL (2.5-4.9); PROTHROMBIN TIME (PATIENT) 20.6 SEC (9.98-11.88)
[2016-06-11 06:45] LABS: BILIRUBIN,TOTAL 0.9 mg/dL (0.2-1.0); TOT PROT 4.9 g/dl (6.4-8.2); TROPONIN I 0.14 ng/ml (0.00-0.05)
[2016-06-11] MEDS ORDERED: INSULIN REGULAR HUMAN 100 UNITS/ML *VIAL IVPUSH ONE (08:09)
[2016-06-11] MEDS ORDERED: DEXTROSE 50%-WATER 50 ML VIAL IVPUSH ONE (08:09)
[2016-06-11] MEDS ORDERED: ALBUTEROL SO4 0.083% IH SOL 2.5 MG/3 ML VIAL.NEB. NEB ONE (08:10)
[2016-06-11] MEDS ORDERED: DEXTROSE 50%-WATER 50 ML DISP.SYRIN ONE (08:17)
[2016-06-11] MEDS ORDERED: DOBUTAMINE 250 MG/D5W - 250 ML ONE (09:08)
[2016-06-11] MEDS ORDERED: PT OWN MED DRAWER 7, Y5N ONE ×4 (09:09→22:48)
[2016-06-11] MEDS: DOBUTAMINE HCL 250,000 MCG in SODIUM CHLORIDE 230 ML IV SCH ×2 (09:15→13:07)
[2016-06-11] MEDS: BRIMONIDINE TARTRATE 0.2% OPHTHALMIC 5 ML BOTTLE OU SCH ×2 (09:19→23:12)
[2016-06-11] MEDS: MEROPENEM 250 MG in DEXTROSE 5%-WATER - 100 ML IVPB SCH ×2 (09:29→23:08)
[2016-06-11 09:37] LABS: ARTERIAL BLD GAS O2 SATURATION 99.5 % (90-98.9); ARTERIAL BLOOD GAS HCO3 13.2 meq/L (22-26)
[2016-06-11 09:39] LABS: ALLENS TEST POSITIVE; ART PUNCT SITE RIGHT RADIAL; LPM/O2% 50%; PT. ON O2? YES; TYPE OF O2 VENTIMASK
[2016-06-11 09:41] LABS: ARTERIAL BLOOD GAS pH 7.29 (7.35-7.45)
--- NOTE | 2016-06-11 10:46 | PN ---
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, Physician History of Present Illness: Lethargic remains hypothermic, hypotensive on warming blanket, pressors cultures pending - Current Medication List Current Medications: Active Medications Albuterol Sulfate (Ventolin 0.083% Nebulizer Soln -) 1 amp NEB Q4H PRN PRN Reason: SHORT OF BREATH/WHEEZING Albuterol/Ipratropium (Duoneb -) 1 amp NEB TIDR [facility] Last Admin: 06/11/16 06:49 Dose: 1 amp Brimonidine Tartrate (Alphagan 0.2% -) 1 drop OU BID [facility] Last Admin: 06/11/16 09:19 Dose: 1 drop Heparin Sodium (Porcine) (Heparin -) 5,000 unit SQ TID [facility] Last Admin: 06/11/16 06:11 Dose: 5,000 unit Norepinephrine Bitartrate 8, (000 mcg/ Dextrose) 500 mls @ 18.75 mls/hr IV TITR [facility]; 5 MCG/MIN PRN Reason: Protocol Last Admin: 06/11/16 05:05 Dose: 30 mls/hr Azithromycin 250 mg/ Dextrose 250 mls @ 250 mls/hr IVPB DAILY@2200 [facility] Last Admin: 06/10/16 22:42 Dose: 250 mls/hr Pantoprazole Sodium (Protonix 40mg Ivpb (Pre-Docked)) 100 mls @ 200 mls/hr IVPB BID@0600,1800 [facility] Last Admin: 06/11/16 06:11 Dose: 200 mls/hr Sodium Chloride (Normal Saline -) 1,000 mls @ 50 mls/hr IV ASDIR [facility] Last Admin: 06/11/16 05:47 Dose: Not Given Meropenem 250 mg/ Dextrose 100 mls @ 400 mls/hr IVPB BID [facility] Last Admin: 06/11/16 09:29 Dose: 400 mls/hr Dobutamine HCl 250,000 mcg/ (Sodium Chloride) 250 mls @ 17.56 mls/hr IV TITR [facility]; 2.5 MCG/KG/MIN PRN Reason: Protocol Last Admin: 06/11/16 09:15 Dose: 14.04 mls/hr Insulin Aspart (Novolog Vial Sliding Scale -) 1 vial SQ ACHS [facility] PRN Reason: Protocol Last Admin: 06/11/16 06:11 Dose: Not Given Levothyroxine Sodium (Synthroid Injection -) 25 mcg IVPUSH AM [facility] Last Admin: 06/11/16 06:24 Dose: 25 mcg - Objective Vital Signs: Vital Signs Temperature 95.3 F L 06/11/16 07:00 Pulse Rate 70 06/11/16 09:15 Respiratory Rate 14 06/11/16 08:10 Blood Pressure 100/70 06/11/16 09:15 O2 Sat by Pulse Oximetry (%) 100 06/11/16 08:10 Constitutional: Yes: No Distress Eyes: Yes: Conjunctiva Clear Cardiovascular: Yes: Regular Rate and Rhythm, S1, S2 Respiratory: Yes: Diminished Gastrointestinal: Yes: Normal Bowel Sounds, Soft. No: Tenderness Edema: Yes Integumentary: Yes: Other (multiple decubitus ulcers) Labs: CBC, BMP 06/11/16 05:15 06/11/16 05:15 INR, PTT INR 1.85 (0.82-1.09) H 06/11/16 05:15 Fibrinogen 405.0 mg/dL (238-498) 06/10/16 04:45 Assessment/Plan Sepsis/ septic shock Possible HCAP Multiple decubitus ulcers CKD Electrolyte imbalance Toxic metabolic encephalopathy Recent polymicrobial bacteremia Continue meropenem Redose vancomycin Contact precautions
--- NOTE | 2016-06-11 11:18 | PN ---
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, Physician Chief Complaint: LETHARGIC, AROUSABLE WITH PHYSICAL AND VERBAL STIMULI 02 MASK 50% - Current Medication List Current Medications: Active Medications Albuterol Sulfate (Ventolin 0.083% Nebulizer Soln -) 1 amp NEB Q4H PRN PRN Reason: SHORT OF BREATH/WHEEZING Albuterol/Ipratropium (Duoneb -) 1 amp NEB TIDR [facility] Last Admin: 06/11/16 06:49 Dose: 1 amp Brimonidine Tartrate (Alphagan 0.2% -) 1 drop OU BID [facility] Last Admin: 06/11/16 09:19 Dose: 1 drop Heparin Sodium (Porcine) (Heparin -) 5,000 unit SQ TID [facility] Last Admin: 06/11/16 06:11 Dose: 5,000 unit Norepinephrine Bitartrate 8, (000 mcg/ Dextrose) 500 mls @ 18.75 mls/hr IV TITR [facility]; 5 MCG/MIN PRN Reason: Protocol Last Admin: 06/11/16 05:05 Dose: 30 mls/hr Azithromycin 250 mg/ Dextrose 250 mls @ 250 mls/hr IVPB DAILY@2200 [facility] Last Admin: 06/10/16 22:42 Dose: 250 mls/hr Pantoprazole Sodium (Protonix 40mg Ivpb (Pre-Docked)) 100 mls @ 200 mls/hr IVPB BID@0600,1800 [facility] Last Admin: 06/11/16 06:11 Dose: 200 mls/hr Sodium Chloride (Normal Saline -) 1,000 mls @ 50 mls/hr IV ASDIR [facility] Last Admin: 06/11/16 05:47 Dose: Not Given Meropenem 250 mg/ Dextrose 100 mls @ 400 mls/hr IVPB BID [facility] Last Admin: 06/11/16 09:29 Dose: 400 mls/hr Dobutamine HCl 250,000 mcg/ (Sodium Chloride) 250 mls @ 17.56 mls/hr IV TITR [facility]; 2.5 MCG/KG/MIN PRN Reason: Protocol Last Admin: 06/11/16 09:15 Dose: 14.04 mls/hr Vancomycin HCl 1,000 mg/ (Dextrose) 250 mls @ 200 mls/hr IVPB ONCE ONE Stop: 06/11/16 12:02 Insulin Aspart (Novolog Vial Sliding Scale -) 1 vial SQ ACHS [facility] PRN Reason: Protocol Last Admin: 06/11/16 06:11 Dose: Not Given Levothyroxine Sodium (Synthroid Injection -) 25 mcg IVPUSH AM [facility] Last Admin: 06/11/16 06:24 Dose: 25 mcg - Objective Vital Signs: Vital Signs Temperature 95.3 F L 06/11/16 07:00 Pulse Rate 70 06/11/16 09:15 Respiratory Rate 14 06/11/16 08:10 Blood Pressure 100/70 06/11/16 09:15 O2 Sat by Pulse Oximetry (%) 100 06/11/16 08:10 Constitutional: Yes: Severe Distress Eyes: Yes: WNL HENT: Yes: WNL Neck: Yes: WNL Cardiovascular: Yes: Pulse Irregular Respiratory: Yes: On Venti-Mask, Rhonchi, SOB, Tachypnea, Wheezes Gastrointestinal: Yes: Distention Genitourinary: Yes: López Present Musculoskeletal: Yes: Muscle Weakness Extremities: Yes: Erythema Edema: LLE: 2+, RLE: 2+ Peripheral Pulses WNL: Yes Integumentary: Yes: Pressure Ulcer, Venous Stasis Changes Wound/Incision: Yes: Draining Neurological: Yes: Weakness ...Motor Strength: LLE, RLE Psychiatric: Yes: Other Labs: CBC, BMP 06/11/16 05:15 06/11/16 05:15 INR, PTT INR 1.85 (0.82-1.09) H 06/11/16 05:15 Fibrinogen 405.0 mg/dL (238-498) 06/10/16 04:45 Problem List - Problems (1) CKD (chronic kidney disease) Code(s): N18.9 - CHRONIC KIDNEY DISEASE, UNSPECIFIED (2) Hyponatremia Code(s): E87.1 - HYPO-OSMOLALITY AND HYPONATREMIA (3) Hypotension Code(s): I95.9 - HYPOTENSION, UNSPECIFIED Qualifiers: Hypotension type: other hypotension type Qualified Code(s): I95.89 - Other hypotension (4) Lung consolidation Code(s): J18.1 - LOBAR PNEUMONIA, UNSPECIFIED ORGANISM (5) Anemia Code(s): D64.9 - ANEMIA, UNSPECIFIED Qualifiers: Other causes of anemia: chronic disease, kidney (6) Atrial flutter Code(s): I48.92 - UNSPECIFIED ATRIAL FLUTTER (7) Bacteremia Code(s): R78.81 - BACTEREMIA (8) COPD (chronic obstructive pulmonary disease) Code(s): J44.9 - CHRONIC OBSTRUCTIVE PULMONARY DISEASE, UNSPECIFIED (9) DMII (diabetes mellitus, type 2) Code(s): E11.9 - TYPE 2 DIABETES MELLITUS WITHOUT COMPLICATIONS Qualifiers: Diabetes mellitus complication detail: with other kidney complication (10) Dyspnea Code(s): R06.00 - DYSPNEA, UNSPECIFIED Qualifiers: Dyspnea type: shortness of breath Qualified Code(s): R06.02 - Shortness of breath (11) Pressure ulcer of lower extremity, stage 1 Code(s): L89.891 - PRESSURE ULCER OF OTHER SITE, STAGE 1 (12) Sepsis Code(s): A41.9 - SEPSIS, UNSPECIFIED ORGANISM Qualifiers: Sepsis type: sepsis due to unspecified organism Qualified Code(s): A41.9 - Sepsis, unspecified organism (13) Weakness of both lower limbs Code(s): M62.81 - MUSCLE WEAKNESS (GENERALIZED) (14) Wound of left shoulder Code(s): S41.002A - UNSPECIFIED OPEN WOUND OF LEFT SHOULDER, INITIAL ENCOUNTER Qualifiers: Encounter type: subsequent encounter Qualified Code(s): S41.002D - Unspecified open wound of left shoulder, subsequent encounter Assessment/Plan TRANSFUSED PRBCS WILL NEED LASIX IV FOR FLUID OVERLOAD IF RENAL FUNCTION PERMITS 02 SUPPORT IV ABX FOR SEPSIS/BACTEREMIA WOUND CARE
[2016-06-11] MEDS ORDERED: VANCOMYCIN 1 GRAM (PRE-DOCKED) 250 ML IVPB ONE (11:45)
--- NOTE | 2016-06-11 11:56 | PN ---
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, Physician History of Present Illness: Pt seen and examined at bedside. He remains in the ICU. Pt is on a non rebreather. - Current Medication List Current Medications: Active Medications Albuterol Sulfate (Ventolin 0.083% Nebulizer Soln -) 1 amp NEB Q4H PRN PRN Reason: SHORT OF BREATH/WHEEZING Albuterol/Ipratropium (Duoneb -) 1 amp NEB TIDR [facility] Last Admin: 06/11/16 06:49 Dose: 1 amp Brimonidine Tartrate (Alphagan 0.2% -) 1 drop OU BID [facility] Last Admin: 06/11/16 09:19 Dose: 1 drop Heparin Sodium (Porcine) (Heparin -) 5,000 unit SQ TID [facility] Last Admin: 06/11/16 06:11 Dose: 5,000 unit Norepinephrine Bitartrate 8, (000 mcg/ Dextrose) 500 mls @ 18.75 mls/hr IV TITR SSII; 5 MCG/MIN PRN Reason: Protocol Last Titration: 06/11/16 11:47 Dose: 9 mcg/min Azithromycin 250 mg/ Dextrose 250 mls @ 250 mls/hr IVPB DAILY@2200 [facility] Last Admin: 06/10/16 22:42 Dose: 250 mls/hr Pantoprazole Sodium (Protonix 40mg Ivpb (Pre-Docked)) 100 mls @ 200 mls/hr IVPB BID@0600,1800 [facility] Last Admin: 06/11/16 06:11 Dose: 200 mls/hr Sodium Chloride (Normal Saline -) 1,000 mls @ 50 mls/hr IV ASDIR [facility] Last Admin: 06/11/16 05:47 Dose: Not Given Meropenem 250 mg/ Dextrose 100 mls @ 400 mls/hr IVPB BID [facility] Last Admin: 06/11/16 09:29 Dose: 400 mls/hr Dobutamine HCl 250,000 mcg/ (Sodium Chloride) 250 mls @ 17.56 mls/hr IV TITR [facility]; 2.5 MCG/KG/MIN PRN Reason: Protocol Last Admin: 06/11/16 09:15 Dose: 14.04 mls/hr Vancomycin HCl (Vancomycin (Pre-Docked)) 250 mls @ 200 mls/hr IVPB ONCE ONE Stop: 06/11/16 12:59 Last Admin: 06/11/16 11:45 Dose: 200 mls/hr Insulin Aspart (Novolog Vial Sliding Scale -) 1 vial SQ ACHS [facility] PRN Reason: Protocol Last Admin: 06/11/16 06:11 Dose: Not Given Levothyroxine Sodium (Synthroid Injection -) 25 mcg IVPUSH AM [facility] Last Admin: 06/11/16 06:24 Dose: 25 mcg - Objective Vital Signs: Vital Signs Temperature 95.3 F L 06/11/16 07:00 Pulse Rate 72 06/11/16 11:47 Respiratory Rate 14 06/11/16 08:10 Blood Pressure 92/66 06/11/16 11:47 O2 Sat by Pulse Oximetry (%) 98 06/11/16 11:32 Constitutional: Yes: Calm Eyes: Yes: Conjunctiva Clear HENT: Yes: Atraumatic Neck: Yes: Supple Cardiovascular: Yes: S1, S2 Respiratory: Yes: On Venti-Mask Gastrointestinal: Yes: Soft, Abdomen, Obese Genitourinary: Yes: López Present, Oliguria Musculoskeletal: Yes: Muscle Weakness Edema: Yes Edema: LLE: 3+, RLE: 3+ Wound/Incision: Yes: Dressing Dry and Intact Psychiatric: Yes: Oriented Labs: CBC, BMP 06/11/16 05:15 06/11/16 05:15 INR, PTT INR 1.85 (0.82-1.09) H 06/11/16 05:15 Fibrinogen 405.0 mg/dL (238-498) 06/10/16 04:45 - ....Imaging Chest X-ray: Report Reviewed Problem List - Problems (1) Acute hyperkalemia Code(s): E87.5 - HYPERKALEMIA (2) Hyponatremia Code(s): E87.1 - HYPO-OSMOLALITY AND HYPONATREMIA (3) Hypotension Code(s): I95.9 - HYPOTENSION, UNSPECIFIED Qualifiers: Hypotension type: other hypotension type Qualified Code(s): I95.89 - Other hypotension (4) Acute on chronic renal failure Code(s): N17.9 - ACUTE KIDNEY FAILURE, UNSPECIFIED N18.9 - CHRONIC KIDNEY DISEASE, UNSPECIFIED (5) Anemia Code(s): D64.9 - ANEMIA, UNSPECIFIED Qualifiers: Other causes of anemia: chronic disease, kidney (6) COPD (chronic obstructive pulmonary disease) Code(s): J44.9 - CHRONIC OBSTRUCTIVE PULMONARY DISEASE, UNSPECIFIED (7) Congestive heart failure (CHF) Code(s): I50.9 - HEART FAILURE, UNSPECIFIED Qualifiers: Congestive heart failure type: systolic Congestive heart failure chronicity: chronic Qualified Code(s): I50.22 - Chronic systolic (congestive ) heart failure (8) DMII (diabetes mellitus, type 2) Code(s): E11.9 - TYPE 2 DIABETES MELLITUS WITHOUT COMPLICATIONS Qualifiers: Diabetes mellitus complication detail: with other kidney complication (9) CKD (chronic kidney disease) Code(s): N18.9 - CHRONIC KIDNEY DISEASE, UNSPECIFIED Assessment/Plan Current Medications Generic Name Dose Route Start Last Admin Trade Name Freq PRN Reason Stop Dose Admin Albuterol Sulfate 1 amp 06/10/16 04:14 Ventolin 0.083% Nebulizer Soln - NEB Q4H PRN SHORT OF BREATH/WHEEZING Albuterol/Ipratropium 1 amp 06/10/16 06:00 06/11/16 06:49 Duoneb - NEB 1 amp TIDR [facility] Administration Brimonidine Tartrate 1 drop 06/10/16 10:00 06/11/16 09:19 Alphagan 0.2% - OU 1 drop BID [facility] Administration Heparin Sodium (Porcine) 5,000 unit 06/10/16 22:00 06/11/16 06:11 Heparin - SQ 5,000 unit TID [facility] Administration Norepinephrine Bitartrate 8, 500 mls @ 18.75 mls/hr 06/10/16 04:00 06/11/16 11: 47 000 mcg/ Dextrose IV 9 mcg/min TITR [facility] Titration Protocol 5 MCG/MIN Azithromycin 250 mg/ Dextrose 250 mls @ 250 mls/hr 06/10/16 22:00 06/10/16 22: 42 IVPB 250 mls/hr DAILY@2200 [facility] Administration Pantoprazole Sodium 100 mls @ 200 mls/hr 06/10/16 06:00 06/11/16 06:11 Protonix 40mg Ivpb (Pre-Docked) IVPB 200 mls/hr BID@0600,1800 [facility] Administration Sodium Chloride 1,000 mls @ 50 mls/hr 06/10/16 05:45 06/11/16 05:47 Normal Saline - IV Not Given ASDIR [facility] Meropenem 250 mg/ Dextrose 100 mls @ 400 mls/hr 06/10/16 14:00 06/11/16 09:29 IVPB 400 mls/hr BID [facility] Administration Dobutamine HCl 250,000 mcg/ 250 mls @ 17.56 mls/hr 06/10/16 13:00 06/11/16 09: 15 Sodium Chloride IV 14.04 mls/hr TITR [facility] Administration Protocol 2.5 MCG/KG/MIN Vancomycin HCl 250 mls @ 200 mls/hr 06/11/16 11:45 06/11/16 11:45 Vancomycin (Pre-Docked) IVPB 06/11/16 12:59 200 mls/hr ONCE ONE Administration Insulin Aspart 1 vial 06/10/16 16:30 06/11/16 06:11 Novolog Vial Sliding Scale - SQ Not Given ACHS [facility] Protocol Levothyroxine Sodium 25 mcg 06/10/16 07:00 06/11/16 06:24 Synthroid Injection - IVPUSH 25 mcg AM [facility] Administration Laboratory Tests 06/10/16 16:00 Serum Osmolality 300 Impression 1. CASE on CKD 2. sepsis with shock 3. cellulitis/abscess of back 4. CHF 5. hypothyroidism 6. hyperlipidemia 7. COPD 8. htn 9. a-fib 10. hyponatremia - isoosmolar Plan - discussed case with ICU team today, will give pt a dose of lasix and will hold off fluids for now as he clinically is volume overloaded - potassium treated medically - monitor urine ouput - cont pressors to a map of 65 - cont oxygen - hyponatremia is iso-osmolar, - send SPEP - check cortosol level - will follow Dr Martinez
[2016-06-11] MEDS ORDERED: FUROSEMIDE 40 MG/4 ML INJECTABLE VIAL IVPB ONE (11:57)
--- NOTE | 2016-06-11 13:09 | PN ---
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, Physician History of Present Illness: Patient given IV lasix today and requiring increased requirement of levophed gtt today. Spoke with resident who stated that they tried to wean of dobutamine gtt yesterday, but patient became hypotensive. - Current Medication List Current Medications: Active Medications Albuterol Sulfate (Ventolin 0.083% Nebulizer Soln -) 1 amp NEB Q4H PRN PRN Reason: SHORT OF BREATH/WHEEZING Albuterol/Ipratropium (Duoneb -) 1 amp NEB TIDR [facility] Last Admin: 06/11/16 06:49 Dose: 1 amp Brimonidine Tartrate (Alphagan 0.2% -) 1 drop OU BID [facility] Last Admin: 06/11/16 09:19 Dose: 1 drop Heparin Sodium (Porcine) (Heparin -) 5,000 unit SQ TID [facility] Last Admin: 06/11/16 06:11 Dose: 5,000 unit Norepinephrine Bitartrate 8, (000 mcg/ Dextrose) 500 mls @ 18.75 mls/hr IV TITR [facility]; 5 MCG/MIN PRN Reason: Protocol Last Titration: 06/11/16 12:03 Dose: 12 mcg/min Azithromycin 250 mg/ Dextrose 250 mls @ 250 mls/hr IVPB DAILY@2200 [facility] Last Admin: 06/10/16 22:42 Dose: 250 mls/hr Pantoprazole Sodium (Protonix 40mg Ivpb (Pre-Docked)) 100 mls @ 200 mls/hr IVPB BID@0600,1800 [facility] Last Admin: 06/11/16 06:11 Dose: 200 mls/hr Sodium Chloride (Normal Saline -) 1,000 mls @ 50 mls/hr IV ASDIR [facility] Last Admin: 06/11/16 05:47 Dose: Not Given Meropenem 250 mg/ Dextrose 100 mls @ 400 mls/hr IVPB BID [facility] Last Admin: 06/11/16 09:29 Dose: 400 mls/hr Dobutamine HCl 250,000 mcg/ (Sodium Chloride) 250 mls @ 17.56 mls/hr IV TITR [facility]; 2.5 MCG/KG/MIN PRN Reason: Protocol Last Admin: 06/11/16 09:15 Dose: 14.04 mls/hr Insulin Aspart (Novolog Vial Sliding Scale -) 1 vial SQ ACHS [facility] PRN Reason: Protocol Last Admin: 06/11/16 12:04 Dose: Not Given Levothyroxine Sodium (Synthroid Injection -) 25 mcg IVPUSH AM [facility] Last Admin: 06/11/16 06:24 Dose: 25 mcg - Objective Vital Signs: Vital Signs Temperature 95.3 F L 06/11/16 07:00 Pulse Rate 73 06/11/16 12:03 Respiratory Rate 14 06/11/16 08:10 Blood Pressure 92/64 06/11/16 12:03 O2 Sat by Pulse Oximetry (%) 98 06/11/16 11:32 Eyes: Yes: Conjunctiva Clear, EOM Intact HENT: Yes: Atraumatic, Normocephalic Cardiovascular: Yes: Regular Rate and Rhythm Respiratory: Yes: Diminished (at bases bilaterally) Gastrointestinal: Yes: Normal Bowel Sounds, Soft Edema: LLE: 3+, RLE: 3+ Neurological: Yes: Confusion Labs: CBC, BMP 06/11/16 05:15 06/11/16 05:15 INR, PTT INR 1.85 (0.82-1.09) H 06/11/16 05:15 Fibrinogen 405.0 mg/dL (238-498) 06/10/16 04:45 Assessment/Plan 76 yo male with CAD, prior ND (mild diffuse prox RCA disease, no intervention), reported paroxysmal atrial fib/flutter (on Eliquis), HFrEF (severely reduced LV systolic function per 04/14/16 echo), HTN, DM, CKD, hyperlipidemia, who was recently hospitalized at [facility] from 05/23-06/02/16 for cellulitis/ abscess of left shoulder and lower extremities, and bacteremia. Admitted now with septic shock (hypotension, hypothermia), anemia, and acute on chronic renal failure. Currently on norepinephrine gtt, and dobutamine gtt (started today by intensive care team). Patient's anemia is also a possible contributing factor. Cardiology consult was requested for minimally elevated troponins of 0.07 -> 0.07. Minimally elevated trops 0.07 in setting of chronic renal failure are not clinically significant. Elevated BNP is unhelpful in determining if patient is in decompensated CHF in setting of renal failure. Would not follow this lab value any further. Initial ECG on 06/09/16 demonstrated junctional rhythm with T wave abnormalities in V3-6. Currently in sinus per telemetry. Echocardiogram on 06/10/16 demostrated continued severe systolic dysfunction with mildly dilated LV, mod TR, RVSP 30-40 mmHg, mild AR, mild MR, mild LA, and small pericardial effusion (< 1 cm). RECS: Currently on norepinephrine gtt for septic shock. Uptitrate norepinephrine gtt as needed. Do not suspect that patient is in cardiogenic shock at this time. Wean off dobutamine gtt as he is only on minimal dose at this time. Given trial of IV lasix today for volume overload. Monitor renal function and lytes with diuresis. Continue to hold anticoagulation for afib given anemia. Transfuse with PRBCs as needed. Would try to keep Hgb closer to 10 given his cardiac history. Further recs as per ICU team,nephrology, and ID service. Will follow. Call with questions.
--- NOTE | 2016-06-11 15:22 | CONSULT ---
Consult Consult Specialty:: Surgery Reason for Consultation:: Evaluation of left shoulder wound - History of Present Illness History of Present Illness: 76 male in ICU for sepsis Asked to evaluate left shoulder wound Had prior incision and drainage/debridement of large abscess cavity in the past - History Source Limitations to Obtaining History: Clinical Condition - Past Medical History Cardio/Vascular: Yes: AFIB (atrial flutter), CHF (chronic systolic CHF), HTN Pulmonary: Yes: COPD Gastrointestinal: Yes: Diverticulosis, Peptic Ulcer Disease Renal/: Yes: Renal Inusuff Endocrine: Yes: Diabetes Mellitus Additional Medical History: glaucoma - Past Surgical History Past Surgical History: Yes: Colonoscopy, Upper Endoscopy - Alcohol/Substance Use Hx Alcohol Use: No - Smoking History Smoking history: Never smoked Have you smoked in the past 12 months: No - Social History Usual Living Arrangement: Care Home Occupation: worked for the [employer] Medications - Allergies Allergies/Adverse Reactions: Allergies Allergy/AdvReac Type Severity Reaction Status Date / Time No Known Allergies Allergy Verified 05/23/16 23:31 - Home Medications Home Medications: Ambulatory Orders Acetaminophen [Tylenol .Regular Strength -] 650 mg PO Q6H PRN #0 tablet Albuterol 2.5/Ipratropium 0.5 [Duoneb -] 1 amp NEB Q6H PRN #0 amp 04/18/16 Apixaban [Eliquis -] 5 mg PO BID tablet 04/18/16 Ascorbic Acid [Vitamin C -] 500 mg PO DAILY tablet 04/18/16 Brimonidine Tartrate [Alphagan 0.2% -] 1 drop OU BID drops 04/18/16 Folic Acid - 1 mg PO DAILY tablet 04/18/16 Insulin Sliding Scale [Novolog Vial Sliding Scale -] 1 vial SQ ACHS units 04/18 Isosorbide Dinitrate [Isordil -] 20 mg PO BIDISORDIL tablet 04/18/16 Levothyroxine [Synthroid -] 50 mcg PO DAILY@0700 tablet 04/18/16 Metoprolol Succinate [Toprol XL -] 25 mg PO BID tab.sr.24h 04/18/16 Multivitamins [Multivit ([facility] Formulary)] 1 tab PO DAILY tab 04/18/16 Ranitidine [Zantac -] 150 mg PO BID tablet 04/18/16 Torsemide [Demadex -] 40 mg PO DAILY tablet 04/18/16 Zinc Sulfate [Orazinc -] 220 mg PO DAILY capsule 04/18/16 Amiodarone HCl [Cordarone -] 200 mg PO DAILY 05/23/16 Collagenase Clostridium Hist. [Santyl -] 1 applic TP DAILY tube 06/02/16 Diphenhydramine HCl [Benadryl Capsule -] 25 mg PO HS PRN #0 06/02/16 Ertapenem Sodium [Invanz -] 0.5 gm IVPB DAILY 7 Days 06/02/16 Insulin Sliding Scale [Novolog Vial Sliding Scale -] 1 vial SQ ACHS units 06/02 Tamsulosin HCl [Flomax -] 0.4 mg PO HS 06/02/16 Torsemide [Demadex -] 40 mg PO DAILY tablet 06/02/16 Family Disease History - Family Disease History Family History: Unable to Obtain Family Disease History: Diabetes: Father Review of Systems Unable to obtain ROS, reason: Somnolent Physical Exam Vital Signs: Vital Signs Temperature 95.3 F L 06/11/16 07:00 Pulse Rate 72 06/11/16 13:07 Respiratory Rate 14 06/11/16 08:10 Blood Pressure 123/80 06/11/16 13:07 O2 Sat by Pulse Oximetry (%) 98 06/11/16 11:32 Wound/Incision: Yes: Other (Left shoulder wound granulated well. no erythema, no drainage, no signs of infection) Labs: CBC, BMP 06/11/16 05:15 06/11/16 05:15 Problem List - Problems (1) Sepsis Code(s): A41.9 - SEPSIS, UNSPECIFIED ORGANISM Qualifiers: Sepsis type: sepsis due to unspecified organism Qualified Code(s): A41.9 - Sepsis, unspecified organism Assessment/Plan 76 male in ICU being treated for sepsis Asked to evaluate left shoulder wound which had been previously incised and drained/debrided No signs of infection at left shoulder wound- clean, granulating well No intervention
--- NOTE | 2016-06-11 16:37 | PN ---
Physical Exam: SUBJECTIVE: Patient seen and examined, patien t tried to wean off from dobutamine but over night he bacame hypotensive. over night urine output. overnight urine output 125ml. OBJECTIVE: Vital Signs Period Temp Pulse Resp BP Sys/Hubbard Pulse Ox Last 24 Hr 95.1 F-97.0 F 65-73 14-27 88-123/61-80 96-100 GENERAL: Awake, HEAD: Normal with no signs of trauma. EYES: Pupils equal, round and reactive to light, EARS, NOSE, THROAT: Ears normal, nares patent, oropharynx clear without exudates. dry mucous membranes. NECK no jvd, no lymphadenopathy LUNGS: decrease breath sound b/l, ronchi, on venti mask HEART: s1s2 normal, ABDOMEN: Soft, nontender, not distended, normoactive bowel sounds, no guarding, no rebound, no masses. scrotal and penile swelling present UPPER EXTREMITIES: 2+ pulses, warm, well-perfused. No cyanosis. No clubbing. Cap refill <2 seconds. No peripheral edema. LOWER EXTREMITIES: multiple ulcers resent on b/l lower limb, b/l pidding edema + +++ NEUROLOGICAL: unobtainable SKIN: cold, on hector hugger Laboratory Results - last 24 hr 06/10/16 06/10/16 06/10/16 04:30 04:45 16:00 WBC RBC Hgb Hct MCV MCHC RDW Plt Count MPV Neutrophils % Lymphocytes % Monocytes % Eosinophils % Basophils % INR Puncture Site ABG pH ABG pCO2 at Pt Temp ABG pO2 at Pt Temp ABG HCO3 ABG O2 Sat (Measured) ABG O2 Content ABG Base Excess Frankie Test O2 Delivery Device Oxygen Flow Rate PEEP Sodium Potassium Chloride Carbon Dioxide Anion Gap BUN Creatinine Creat Clearance w eGFR POC Glucometer Random Glucose Serum Osmolality 300 Lactic Acid Calcium Phosphorus Magnesium Iron 37 L Total Bilirubin AST ALT Alkaline Phosphatase Creatine Kinase Creatine Kinase Index CK-MB (CK-2) CK-MB (CK-2) Rel Index Troponin I Total Protein Albumin TSH Urine Osmolality 292 L Ur Random Sodium Ur Random Potassium Ur Random Chloride Urine Creatinine Random Vancomycin Blood Type A POSITIVE Antibody Screen Negative Crossmatch See Detail 06/10/16 06/10/16 06/10/16 16:00 16:00 18:20 WBC RBC Hgb Hct MCV MCHC RDW Plt Count MPV Neutrophils % Lymphocytes % Monocytes % Eosinophils % Basophils % INR Puncture Site ABG pH ABG pCO2 at Pt Temp ABG pO2 at Pt Temp ABG HCO3 ABG O2 Sat (Measured) ABG O2 Content ABG Base Excess Frankie Test O2 Delivery Device Oxygen Flow Rate PEEP Sodium Potassium Chloride Carbon Dioxide Anion Gap BUN Creatinine Creat Clearance w eGFR POC Glucometer 130.55193 Random Glucose Serum Osmolality Lactic Acid Calcium Phosphorus Magnesium Iron Total Bilirubin AST ALT Alkaline Phosphatase Creatine Kinase Creatine Kinase Index CK-MB (CK-2) CK-MB (CK-2) Rel Index Troponin I Total Protein Albumin TSH Urine Osmolality Ur Random Sodium 17 Ur Random Potassium 20.5 Ur Random Chloride 16 Urine Creatinine 62.5 Random Vancomycin Blood Type Antibody Screen Crossmatch 06/10/16 06/10/16 06/10/16 20:29 20:29 22:41 WBC 16.8 H D RBC 2.82 L D Hgb 8.0 L D Hct 24.9 L D MCV 88.4 MCHC 32.3 RDW 17.2 H Plt Count 210 MPV 8.9 Neutrophils % 90.3 H Lymphocytes % 1.3 L D Monocytes % 8.1 D Eosinophils % 0.0 Basophils % 0.3 INR Puncture Site ABG pH ABG pCO2 at Pt Temp ABG pO2 at Pt Temp ABG HCO3 ABG O2 Sat (Measured) ABG O2 Content ABG Base Excess Frankie Test O2 Delivery Device Oxygen Flow Rate PEEP Sodium Potassium Chloride Carbon Dioxide Anion Gap BUN Creatinine Creat Clearance w eGFR POC Glucometer 112.81148 Random Glucose Serum Osmolality Lactic Acid 2.988 H* Calcium Phosphorus Magnesium Iron Total Bilirubin AST ALT Alkaline Phosphatase Creatine Kinase Creatine Kinase Index CK-MB (CK-2) CK-MB (CK-2) Rel Index Troponin I Total Protein Albumin TSH Urine Osmolality Ur Random Sodium Ur Random Potassium Ur Random Chloride Urine Creatinine Random Vancomycin Blood Type Antibody Screen Crossmatch 06/11/16 06/11/16 06/11/16 05:15 05:15 05:15 WBC 14.7 H RBC 2.96 L Hgb 8.6 L Hct 26.1 L MCV 88.1 MCHC 33.0 RDW 16.7 H Plt Count 197 MPV 8.8 Neutrophils % 88.1 H Lymphocytes % 2.5 L D Monocytes % 9.1 Eosinophils % 0.1 D Basophils % 0.2 INR Puncture Site ABG pH ABG pCO2 at Pt Temp ABG pO2 at Pt Temp ABG HCO3 ABG O2 Sat (Measured) ABG O2 Content ABG Base Excess Frankie Test O2 Delivery Device Oxygen Flow Rate PEEP Sodium 127 L Potassium 5.6 H Chloride 95 L Carbon Dioxide 17 L Anion Gap 15 BUN 101 H Creatinine 3.8 H Creat Clearance w eGFR 15.57 POC Glucometer Random Glucose 78 D Serum Osmolality Lactic Acid Calcium 7.3 L Phosphorus 4.9 5.1 H Magnesium 2.0 2.1 Iron Total Bilirubin 0.9 D AST 35 D ALT 26 Alkaline Phosphatase 83 Creatine Kinase 236 D Creatine Kinase Index 3.4 CK-MB (CK-2) 8.095 H CK-MB (CK-2) Rel Index Troponin I 0.14 H D Total Protein 4.9 L Albumin 1.7 L TSH 2.52 D Urine Osmolality Ur Random Sodium Ur Random Potassium Ur Random Chloride Urine Creatinine Random Vancomycin 8.773 Blood Type Antibody Screen Crossmatch 06/11/16 06/11/16 06/11/16 05:15 05:15 05:44 WBC RBC Hgb Hct MCV MCHC RDW Plt Count MPV Neutrophils % Lymphocytes % Monocytes % Eosinophils % Basophils % INR 1.85 H Puncture Site ABG pH ABG pCO2 at Pt Temp ABG pO2 at Pt Temp ABG HCO3 ABG O2 Sat (Measured) ABG O2 Content ABG Base Excess Frankie Test O2 Delivery Device Oxygen Flow Rate PEEP Sodium Potassium Chloride Carbon Dioxide Anion Gap BUN Creatinine Creat Clearance w eGFR POC Glucometer 124.94913 Random Glucose Serum Osmolality Lactic Acid Calcium Phosphorus Magnesium Iron Total Bilirubin AST ALT Alkaline Phosphatase Creatine Kinase Creatine Kinase Index CK-MB (CK-2) CK-MB (CK-2) Rel Index Cancelled Troponin I Total Protein Albumin TSH Urine Osmolality Ur Random Sodium Ur Random Potassium Ur Random Chloride Urine Creatinine Random Vancomycin Blood Type Antibody Screen Crossmatch 06/11/16 06/11/16 09:12 11:59 WBC RBC Hgb Hct MCV MCHC RDW Plt Count MPV Neutrophils % Lymphocytes % Monocytes % Eosinophils % Basophils % INR Puncture Site Right radial ABG pH 7.29 L ABG pCO2 at Pt Temp 28.4 L ABG pO2 at Pt Temp 153.0 H* D ABG HCO3 13.2 L* ABG O2 Sat (Measured) 99.5 H ABG O2 Content 11.7 L ABG Base Excess -12.0 L* Frankie Test Positive O2 Delivery Device Ventimask Oxygen Flow Rate 50% PEEP 0.0 Sodium Potassium Chloride Carbon Dioxide Anion Gap BUN Creatinine Creat Clearance w eGFR POC Glucometer 85.40717 Random Glucose Serum Osmolality Lactic Acid Calcium Phosphorus Magnesium Iron Total Bilirubin AST ALT Alkaline Phosphatase Creatine Kinase Creatine Kinase Index CK-MB (CK-2) CK-MB (CK-2) Rel Index Troponin I Total Protein Albumin TSH Urine Osmolality Ur Random Sodium Ur Random Potassium Ur Random Chloride Urine Creatinine Random Vancomycin Blood Type Antibody Screen Crossmatch Active Medications Generic Name Dose Route Start Last Admin Trade Name Freq PRN Reason Stop Dose Admin Albuterol Sulfate 1 amp 06/10/16 04:14 Ventolin 0.083% Nebulizer Soln - NEB Q4H PRN SHORT OF BREATH/WHEEZING Albuterol/Ipratropium 1 amp 06/10/16 06:00 06/11/16 14:31 Duoneb - NEB 1 amp TIDR [facility] Administration Brimonidine Tartrate 1 drop 06/10/16 10:00 06/11/16 09:19 Alphagan 0.2% - OU 1 drop BID [facility] Administration Heparin Sodium (Porcine) 5,000 unit 06/10/16 22:00 06/11/16 06:11 Heparin - SQ 5,000 unit TID [facility] Administration Norepinephrine Bitartrate 8, 500 mls @ 18.75 mls/hr 06/10/16 04:00 06/11/16 12: 03 000 mcg/ Dextrose IV 12 mcg/min TITR [facility] Titration Protocol 5 MCG/MIN Azithromycin 250 mg/ Dextrose 250 mls @ 250 mls/hr 06/10/16 22:00 06/10/16 22: 42 IVPB 250 mls/hr DAILY@2200 [facility] Administration Pantoprazole Sodium 100 mls @ 200 mls/hr 06/10/16 06:00 06/11/16 06:11 Protonix 40mg Ivpb (Pre-Docked) IVPB 200 mls/hr BID@0600,1800 [facility] Administration Meropenem 250 mg/ Dextrose 100 mls @ 400 mls/hr 06/10/16 14:00 06/11/16 09:29 IVPB 400 mls/hr BID [facility] Administration Dobutamine HCl 250,000 mcg/ 250 mls @ 17.56 mls/hr 06/10/16 13:00 06/11/16 13: 07 Sodium Chloride IV Not Given TITR [facility] Protocol 2.5 MCG/KG/MIN Insulin Aspart 1 vial 06/10/16 16:30 06/11/16 12:04 Novolog Vial Sliding Scale - SQ Not Given ACHS [facility] Protocol Levothyroxine Sodium 25 mcg 06/10/16 07:00 06/11/16 06:24 Synthroid Injection - IVPUSH 25 mcg AM [facility] Administration ASSESSMENT/PLAN: septic shock secondary to multiple ulcers continue IV antibiotics as per id, meropenem and vanco wound culture MRSA on nor epi trend lactic acid blood culture, urine culture negative monitor vitals id consult appreciated follow abg hyponatremia isotonic monitor sodium increas 0.5 to 1 meq/hr not more than 12 meq in 24 hour abdiaziz on ckd follow cr/ bun avoid nephrotoxic drugs nephrology consult appreciated lactic acidosis could be due to anemia vs sepsis shock trend lactic acid hypothermia on hector hugger rectal temp increased to 96 h/o cad, A flutter, chf, global hypokinesia alaquis on hold due to anemia, follow stool for occult taper dobutamin ( can cause arrthymia ) cardiology on case hold lasix for now last ecjo ef 30 and global hypokinesia anemia follow stool for occult received 3 unit pc follow hb follow haemoglobin h/o copd not active on duoneb DM on sliding scale follow bgm fluid ; avoid fluid electrolyte ; repeat in am nutrition ; npo dispo : admit in icu Visit type - Emergency Visit Emergency Visit: Yes ED Registration Date: 06/10/16 Care time: The patient presented to the Emergency Department on the above date and was hospitalized for further evaluation of their emergent condition. - New Patient This patient is new to me today: No - Critical Care Critical Care patient: Yes Total Critical Care Time (in minutes): 45 Critical Care Statement: The care of this patient involved high complexity decision making to prevent further life threatening deterioration of the patient 's condition and/or to evalute & treat vital organ system(s) failure or risk of failure.
--- NOTE | 2016-06-11 17:24 | PN ---
Teaching Attending Note Name of Resident: Patricio Andrade ATTENDING PHYSICIAN STATEMENT I saw and evaluated the patient. I reviewed the resident's note and discussed the case with the resident. I agree with the resident's findings and plan as documented. SUBJECTIVE: Pt seen and examined in the ICU. Lethargic but arousable. Saturating well on 50 % Ventimask. On levophed and dobutamine gtts. OBJECTIVE: Last Vital Signs Temp Pulse Resp BP Pulse Ox 95.3 F L 72 14 123/80 98 06/11/16 07:00 06/11/16 13:07 06/11/16 08:10 06/11/16 13:07 06/11/16 11:32 Intake & Output 06/08/16 06/09/16 06/10/16 06/11/16 23:59 23:59 23:59 23:59 Intake Total 4115 1050 Output Total 210 125 Balance 3905 925 Weight 258 lb 1.6 oz 262 lb 7.355 oz Gen: lethargic but arousable Heart: RRR Lung: bilateral rhonchi Abd: soft, nontender Ext: + edema CBC, BMP 06/11/16 05:15 06/11/16 05:15 ABG Results ABG pH 7.29 (7.35-7.45) L 06/11/16 09:12 ABG pCO2 at Pt Temp 28.4 mmHg (35-45) L 06/11/16 09:12 ABG pO2 at Pt Temp 153.0 mmHg (70-100) H* D 06/11/16 09:12 ABG HCO3 13.2 meq/L (22-26) L* 06/11/16 09:12 ABG O2 Sat (Measured) 99.5 % (90-98.9) H 06/11/16 09:12 ABG O2 Content 11.7 % vol (15-22) L 06/11/16 09:12 ABG Base Excess -12.0 meq/l (-2-2) L* 06/11/16 09:12 Active Medications Albuterol Sulfate (Ventolin 0.083% Nebulizer Soln -) 1 amp NEB Q4H PRN PRN Reason: SHORT OF BREATH/WHEEZING Albuterol/Ipratropium (Duoneb -) 1 amp NEB TIDR [facility] Last Admin: 06/11/16 14:31 Dose: 1 amp Brimonidine Tartrate (Alphagan 0.2% -) 1 drop OU BID [facility] Last Admin: 06/11/16 09:19 Dose: 1 drop Heparin Sodium (Porcine) (Heparin -) 5,000 unit SQ TID [facility] Last Admin: 06/11/16 17:12 Dose: 5,000 unit Norepinephrine Bitartrate 8, (000 mcg/ Dextrose) 500 mls @ 18.75 mls/hr IV TITR [facility]; 5 MCG/MIN PRN Reason: Protocol Last Titration: 06/11/16 12:03 Dose: 12 mcg/min Azithromycin 250 mg/ Dextrose 250 mls @ 250 mls/hr IVPB DAILY@2200 [facility] Last Admin: 06/10/16 22:42 Dose: 250 mls/hr Pantoprazole Sodium (Protonix 40mg Ivpb (Pre-Docked)) 100 mls @ 200 mls/hr IVPB BID@0600,1800 [facility] Last Admin: 06/11/16 06:11 Dose: 200 mls/hr Meropenem 250 mg/ Dextrose 100 mls @ 400 mls/hr IVPB BID [facility] Last Admin: 06/11/16 09:29 Dose: 400 mls/hr Dobutamine HCl 250,000 mcg/ (Sodium Chloride) 250 mls @ 17.56 mls/hr IV TITR [facility]; 2.5 MCG/KG/MIN PRN Reason: Protocol Last Admin: 06/11/16 13:07 Dose: Not Given Insulin Aspart (Novolog Vial Sliding Scale -) 1 vial SQ ACHS [facility] PRN Reason: Protocol Last Admin: 06/11/16 12:04 Dose: Not Given Levothyroxine Sodium (Synthroid Injection -) 25 mcg IVPUSH AM [facility] Last Admin: 06/11/16 06:24 Dose: 25 mcg ASSESSMENT AND PLAN: Back/Shoulder Cellulitis/Abscess Septic Shock Acute on Chronic Renal Failure Metabolic Acidosis Acute on Chronic LV Systolic Heart Failure Atrial Fibrillation COPD Hyponatremia - continue antibiotics - f/u cultures - discussed with renal, agree with uptitrating pressors and dosing lasix today - taper off dobutamine gtt per cardiology - O2 to keep SpO2 >90% - aspiration precautions - inhaled bronchodilators - monitor urine output, creatinine - may need HD - continue ICU monitoring for pressor support and tenuous respiratory status - can try BiPAP if mentation intact - DVT prophylaxis
[2016-06-11 20:08] LABS: ARTERIAL BLD GAS O2 SATURATION 98.8 % (90-98.9); ARTERIAL BLOOD GAS BASE EXCESS -11.3 meq/l (-2-2); ARTERIAL BLOOD GAS HCO3 13.4 meq/L (22-26)
[2016-06-11 20:17] LABS: ALLENS TEST POSITIVE; ART PUNCT SITE LEFT RADIAL; PT. ON O2? YES
[2016-06-11 20:18] LABS: LPM/O2% 40%; TYPE OF O2 BI-PAP; VENT RATE 16
[2016-06-11 20:19] LABS: ARTERIAL BLOOD GAS pH 7.31 (7.35-7.45)
[2016-06-11] MEDS: AZITHROMYCIN IVPB 250 MG in DEXTROSE 5%-WATER - 250 ML IVPB SCH (22:58)
[2016-06-12] MEDS ORDERED: NOREPINEPHRINE BITARTRATE 4 MG/4 ML ML IV ONE ×2 (01:56→20:27)
[2016-06-12] MEDS: NOREPINEPHRINE BITARTRATE 8,000 MCG in DEXTROSE 5%-WATER - 492 ML IV SCH ×2 (03:55→20:00)
[2016-06-12] MEDS: HEPARIN NA (PORCINE) 5,000 UNITS/ML 1ML VIAL SQ SCH ×3 (06:00→21:03)
[2016-06-12] MEDS: PANTOPRAZOLE SODIUM 100 ML IVPB SCH ×2 (06:00→18:42)
[2016-06-12 06:28] LABS: BASOPHIL 0.4 % (0-2.0); EOSINOPHIL 0.3 % (0-4.5); MCH 28.8 pg (25.7-33.7); MCHC 32.8 g/dl (32.0-35.9); MEAN CELL VOLUME 87.8 fl (80-96); MEAN PLT VOLUME 9.2 fl (7.5-11.1); NEUTROPHILS 88.3 % (42.8-82.8); PLATELET COUNT 223 K/MM3 (134-434); RDW 17.1 % (11.9-15.9); WHITE BLOOD COUNT 12.6 K/mm3 (4.0-10.0)
[2016-06-12] MEDS: ALBUTEROL SO4 2.5/IPRATROPIUM 0.5 INH SOL 3 ML VIAL.NEB. NEB SCH ×3 (06:45→21:52)
[2016-06-12 06:48] LABS: CALCIUM 7.5 mg/dL (8.5-10.1); CREATININE 4.2 mg/dL (0.7-1.3); MAGNESIUM 2.1 mg/dL (1.8-2.4); PHOSPHOROUS 5.6 mg/dL (2.5-4.9)
[2016-06-12] MEDS: INSULIN SLIDING SCALE (NOVOLOG) 1 VIAL SQ SCH ×4 (07:00→21:04)
[2016-06-12] MEDS: LEVOTHYROXINE SODIUM 100 MCG VIAL IVPUSH SCH (07:00)
[2016-06-12] MEDS ORDERED: INSULIN REGULAR HUMAN 100 UNITS/ML *VIAL IVPUSH ONE ×2 (07:25→17:45)
[2016-06-12] MEDS ORDERED: CALCIUM GLUCONATE 10% - 1,000 MG/10 ML VIAL IVPB ONE (07:26)
[2016-06-12] MEDS ORDERED: DEXTROSE 50%-WATER 50 ML VIAL IVPUSH ONE ×2 (07:26→17:45)
[2016-06-12] MEDS ORDERED: PT OWN MED DRAWER 7, Y5N ONE (07:58)
[2016-06-12 07:59] LABS: ARTERIAL BLD GAS O2 SATURATION 97.8 % (90-98.9); ARTERIAL BLOOD GAS BASE EXCESS -11.3 meq/l (-2-2)
[2016-06-12 08:00] LABS: ARTERIAL BLOOD GAS pH 7.27 (7.35-7.45)
[2016-06-12 08:01] LABS: ALLENS TEST POSITIVE; ART PUNCT SITE LEFT RADIAL; ARTERIAL BLOOD GAS HCO3 14.2 meq/L (22-26); LPM/O2% 35%; MECH. VENT. Y; PT. ON O2? YES; TYPE OF O2 BIPAP; VENT RATE 16
[2016-06-12] MEDS: MEROPENEM 250 MG in DEXTROSE 5%-WATER - 100 ML IVPB SCH ×2 (10:00→21:00)
[2016-06-12] MEDS: BRIMONIDINE TARTRATE 0.2% OPHTHALMIC 5 ML BOTTLE OU SCH ×2 (10:00→21:07)
--- NOTE | 2016-06-12 15:04 | PN ---
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, Physician History of Present Illness: No new events Off [employer] - Current Medication List Current Medications: Active Medications Albuterol Sulfate (Ventolin 0.083% Nebulizer Soln -) 1 amp NEB Q4H PRN PRN Reason: SHORT OF BREATH/WHEEZING Albuterol/Ipratropium (Duoneb -) 1 amp NEB TIDR [facility] Last Admin: 06/12/16 14:28 Dose: 1 amp Brimonidine Tartrate (Alphagan 0.2% -) 1 drop OU BID [facility] Last Admin: 06/12/16 10:00 Dose: 1 drop Heparin Sodium (Porcine) (Heparin -) 5,000 unit SQ TID [facility] Last Admin: 06/12/16 06:00 Dose: 5,000 unit Norepinephrine Bitartrate 8, (000 mcg/ Dextrose) 500 mls @ 18.75 mls/hr IV TITR [facility]; 5 MCG/MIN PRN Reason: Protocol Last Admin: 06/12/16 03:55 Dose: 45 mls/hr Azithromycin 250 mg/ Dextrose 250 mls @ 250 mls/hr IVPB DAILY@2200 [facility] Last Admin: 06/11/16 22:58 Dose: 250 mls/hr Pantoprazole Sodium (Protonix 40mg Ivpb (Pre-Docked)) 100 mls @ 200 mls/hr IVPB BID@0600,1800 [facility] Last Admin: 06/12/16 06:00 Dose: 200 mls/hr Meropenem 250 mg/ Dextrose 100 mls @ 400 mls/hr IVPB BID [facility] Last Admin: 06/12/16 10:00 Dose: 400 mls/hr Insulin Aspart (Novolog Vial Sliding Scale -) 1 vial SQ ACHS [facility] PRN Reason: Protocol Last Admin: 06/12/16 11:00 Dose: Not Given Levothyroxine Sodium (Synthroid Injection -) 25 mcg IVPUSH AM [facility] Last Admin: 06/12/16 07:00 Dose: Not Given - Objective Vital Signs: Vital Signs Temperature 97.6 F 06/12/16 07:00 Pulse Rate 69 06/12/16 12:00 Respiratory Rate 14 06/12/16 12:00 Blood Pressure 100/68 06/12/16 12:00 O2 Sat by Pulse Oximetry (%) 100 06/12/16 14:26 Constitutional: Yes: No Distress Eyes: Yes: Conjunctiva Clear, Other (hard to open eyes, but tries) HENT: Yes: Atraumatic Neck: Yes: Supple Cardiovascular: Yes: Pulse Irregular. No: Murmur Respiratory: Yes: Rhonchi Gastrointestinal: Yes: Normal Bowel Sounds, Soft Edema: Yes (Pedrito dressed partly) Peripheral Pulses WNL: Yes Neurological: Yes: Lethargy Labs: CBC, BMP 06/12/16 05:05 06/12/16 05:05 INR, PTT INR 1.85 (0.82-1.09) H 06/11/16 05:15 Fibrinogen 405.0 mg/dL (238-498) 06/10/16 04:45 - ....Imaging Other: Other (tele -. afib) Assessment/Plan 76 yo male with CAD, prior NH (mild diffuse prox RCA disease, no intervention), reported paroxysmal atrial fib/flutter (on Eliquis), HFrEF (severely reduced LV systolic function per 04/14/16 echo), HTN, DM, CKD, hyperlipidemia, who was recently hospitalized at [facility] from 05/23-06/02/16 for cellulitis/ abscess of left shoulder and lower extremities, and bacteremia. Admitted now with septic shock (hypotension, hypothermia), anemia, and acute on chronic renal failure. Was on both norepinephrine gtt, and dobutamine gtt. Patient's anemia is also a possible contributing factor. Cardiology consult was requested for minimally elevated troponins of 0.07 -> 0.07. Minimally elevated trops 0.07 in setting of chronic renal failure are not clinically significant. Elevated BNP is unhelpful in determining if patient is in decompensated CHF in setting of renal failure. Initial ECG on 06/09/16 demonstrated junctional rhythm with T wave abnormalities in V3-6 -. subsequent sinus per telemetry -. now seems in afib Echocardiogram on 06/10/16 demonstrated continued severe systolic dysfunction with mildly dilated LV, mod TR, RVSP 30-40 mmHg, mild AR, mild MR, mild W[place], and small pericardial effusion (< 1 cm). Off [employer] -. coming down on levo (only at 4 mcg) Making urine, w/o lasix today CXR seems w/o sign change RECS: Cont to titrate levo to off Do not suspect that patient is in cardiogenic shock at this time. Lasix prn -. HD bring considered by renal Continue to hold anticoagulation for afib given anemia. Transfuse with PRBCs as needed. Would try to keep Hgb closer to 10 given his cardiac history. Further recs as per ICU team,nephrology, and ID service.
--- NOTE | 2016-06-12 15:11 | PN ---
Teaching Attending Note Name of Resident: Patricio Andrade ATTENDING PHYSICIAN STATEMENT I saw and evaluated the patient. I reviewed the resident's note and discussed the case with the resident. I agree with the resident's findings and plan as documented. SUBJECTIVE: Patient seen and examined in the ICU. Drowsy but easily arousable on NIPPV. NE at 9 mcq for hemodynamic support. He denies CP or SOB. Noted that he received Laisx yesterday with some UOP. GENERAL: Lethargic but arousable, mildly tachypneic on NIPPV HEAD: Normal with no signs of trauma. EYES: (+) Pallor EARS, NOSE, THROAT: dry mucous membranes. NECK no jvd, no lymphadenopathy LUNGS: Scattered rhonchi, (+) tachypnea HEART: S1S2 ABDOMEN: Soft, obese, ND, no guarding, no rebound, no masses (+) scrotal and penile swelling UPPER EXTREMITIES: 2+ pulses, warm LOWER EXTREMITIES: multiple ulcers resent on b/l lower limb, b/l edema NEUROLOGICAL: non-focal Laboratory Results - last 24 hr 06/09/16 06/11/16 06/11/16 23:50 05:15 17:42 WBC RBC Hgb Hct MCV MCHC RDW Plt Count MPV Neutrophils % Lymphocytes % Monocytes % Eosinophils % Basophils % Puncture Site ABG pH ABG pCO2 at Pt Temp ABG pO2 at Pt Temp ABG HCO3 ABG O2 Sat (Measured) ABG O2 Content ABG Base Excess Frankie Test O2 Delivery Device Oxygen Flow Rate Vent Mode Vent Rate Mechanical Rate PEEP Pressure Support Vent Sodium Potassium Chloride Carbon Dioxide Anion Gap BUN Creatinine POC Glucometer 120.21492 Random Glucose Lactic Acid Calcium Phosphorus Magnesium Free T4 1.02 Cortisol AM Sample 22.1 Random Vancomycin 06/11/16 06/11/16 06/12/16 20:00 23:10 05:05 WBC RBC Hgb Hct MCV MCHC RDW Plt Count MPV Neutrophils % Lymphocytes % Monocytes % Eosinophils % Basophils % Puncture Site Left radial ABG pH 7.31 L ABG pCO2 at Pt Temp 27.5 L ABG pO2 at Pt Temp 115.0 H D ABG HCO3 13.4 L* ABG O2 Sat (Measured) 98.8 ABG O2 Content 12.2 L ABG Base Excess -11.3 L* Frankie Test Positive O2 Delivery Device Bi-pap Oxygen Flow Rate 40% Vent Mode S/t Vent Rate 16 Mechanical Rate PEEP 0.0 Pressure Support Vent 12/6 Sodium 125 L Potassium 6.0 H Chloride 95 L Carbon Dioxide 17 L Anion Gap 13 BUN 104 H Creatinine 4.2 H POC Glucometer 127.39923 Random Glucose 80 Lactic Acid Calcium 7.5 L Phosphorus 5.6 H Magnesium 2.1 Free T4 Cortisol AM Sample Random Vancomycin 15.698 06/12/16 06/12/16 06/12/16 05:05 05:05 07:30 WBC 12.6 H RBC 3.09 L Hgb 8.9 L Hct 27.1 L MCV 87.8 MCHC 32.8 RDW 17.1 H Plt Count 223 MPV 9.2 Neutrophils % 88.3 H Lymphocytes % 1.8 L D Monocytes % 9.2 Eosinophils % 0.3 D Basophils % 0.4 Puncture Site Left radial ABG pH 7.27 L ABG pCO2 at Pt Temp 31.7 L ABG pO2 at Pt Temp 100.0 ABG HCO3 14.2 L* ABG O2 Sat (Measured) 97.8 ABG O2 Content 12.0 L ABG Base Excess -11.3 L* Frankie Test Positive O2 Delivery Device Bipap Oxygen Flow Rate 35% Vent Mode S/t Vent Rate 16 Mechanical Rate Y PEEP 0.0 Pressure Support Vent 12/6 Sodium Potassium Chloride Carbon Dioxide Anion Gap BUN Creatinine POC Glucometer Random Glucose Lactic Acid 1.434 Calcium Phosphorus Magnesium Free T4 Cortisol AM Sample Random Vancomycin 06/12/16 06/12/16 10:11 12:20 WBC RBC Hgb Hct MCV MCHC RDW Plt Count MPV Neutrophils % Lymphocytes % Monocytes % Eosinophils % Basophils % Puncture Site ABG pH ABG pCO2 at Pt Temp ABG pO2 at Pt Temp ABG HCO3 ABG O2 Sat (Measured) ABG O2 Content ABG Base Excess Frankie Test O2 Delivery Device Oxygen Flow Rate Vent Mode Vent Rate Mechanical Rate PEEP Pressure Support Vent Sodium Potassium Chloride Carbon Dioxide Anion Gap BUN Creatinine POC Glucometer 135.51234 101.45814 Random Glucose Lactic Acid Calcium Phosphorus Magnesium Free T4 Hatley Cortisol AM Sample Random Vancomycin CXR: Rotated / no change ASSESSMENT/PLAN: Septic shock +/- cardiogenic shock Multiple skin ulcers Severe LV dysfunction/hypokinesis Electrolyte imbalance CASE Lactic acidosis Toxic Metabolic Encephalopathy IVF Titrate NE May need inotrope if hemodynamics worsen Follow cultures NIPPV as needed -> Low threshold for Intubation Aspiration precautions Strict I&O ICU monitoring Dr Farrell CCTime 35"
--- NOTE | 2016-06-12 15:16 | PN ---
Physical Exam: SUBJECTIVE: Patient seen and examined, Patient on bipap. Patient drowsy but arousable on norepi 9, MAP> 65. dobutamin stopped denies sob, chest pain. OBJECTIVE: Vital Signs Period Temp Pulse Resp BP Sys/Hubbard Pulse Ox Last 24 Hr 97.5 F-97.6 F 64-72 8-19 73-106/33-68 98-100 GENERAL: drowsy but arousable HEAD: Normal with no signs of trauma. EYES: Pupils equal, round and reactive to light, EARS, NOSE, THROAT: Ears normal, nares patent, oropharynx clear without exudates. moist mucous membranes. NECK no jvd, no lymphadenopathy LUNGS: decrease breath sound b/l, ronchi, on bipapa, pick line in situ. HEART: s1s2 normal, ABDOMEN: Soft, nontender, not distended, normoactive bowel sounds, no guarding, no rebound, no masses. scrotal and penile swelling present UPPER EXTREMITIES: 2+ pulses, warm, well-perfused. No cyanosis. No clubbing. Cap refill <2 seconds. No peripheral edema. LOWER EXTREMITIES: multiple ulcers resent on b/l lower limb, b/l pidding edema + +++ NEUROLOGICAL: unobtainable Laboratory Results - last 24 hr 06/11/16 06/11/16 06/11/16 05:15 17:42 20:00 WBC RBC Hgb Hct MCV MCHC RDW Plt Count MPV Neutrophils % Lymphocytes % Monocytes % Eosinophils % Basophils % Puncture Site Left radial ABG pH 7.31 L ABG pCO2 at Pt Temp 27.5 L ABG pO2 at Pt Temp 115.0 H D ABG HCO3 13.4 L* ABG O2 Sat (Measured) 98.8 ABG O2 Content 12.2 L ABG Base Excess -11.3 L* Frankie Test Positive O2 Delivery Device Bi-pap Oxygen Flow Rate 40% Vent Mode S/t Vent Rate 16 Mechanical Rate PEEP 0.0 Pressure Support Vent 12/6 Sodium Potassium Chloride Carbon Dioxide Anion Gap BUN Creatinine POC Glucometer 120.41836 Random Glucose Lactic Acid Calcium Phosphorus Magnesium Cortisol AM Sample 22.1 Random Vancomycin 06/11/16 06/12/16 06/12/16 23:10 05:05 05:05 WBC 12.6 H RBC 3.09 L Hgb 8.9 L Hct 27.1 L MCV 87.8 MCHC 32.8 RDW 17.1 H Plt Count 223 MPV 9.2 Neutrophils % 88.3 H Lymphocytes % 1.8 L D Monocytes % 9.2 Eosinophils % 0.3 D Basophils % 0.4 Puncture Site ABG pH ABG pCO2 at Pt Temp ABG pO2 at Pt Temp ABG HCO3 ABG O2 Sat (Measured) ABG O2 Content ABG Base Excess Frankie Test O2 Delivery Device Oxygen Flow Rate Vent Mode Vent Rate Mechanical Rate PEEP Pressure Support Vent Sodium 125 L Potassium 6.0 H Chloride 95 L Carbon Dioxide 17 L Anion Gap 13 BUN 104 H Creatinine 4.2 H POC Glucometer 127.64101 Random Glucose 80 Lactic Acid Calcium 7.5 L Phosphorus 5.6 H Magnesium 2.1 Cortisol AM Sample Random Vancomycin 15.698 06/12/16 06/12/16 06/12/16 05:05 07:30 10:11 WBC RBC Hgb Hct MCV MCHC RDW Plt Count MPV Neutrophils % Lymphocytes % Monocytes % Eosinophils % Basophils % Puncture Site Left radial ABG pH 7.27 L ABG pCO2 at Pt Temp 31.7 L ABG pO2 at Pt Temp 100.0 ABG HCO3 14.2 L* ABG O2 Sat (Measured) 97.8 ABG O2 Content 12.0 L ABG Base Excess -11.3 L* Frankie Test Positive O2 Delivery Device Bipap Oxygen Flow Rate 35% Vent Mode S/t Vent Rate 16 Mechanical Rate Y PEEP 0.0 Pressure Support Vent 12/6 Sodium Potassium Chloride Carbon Dioxide Anion Gap BUN Creatinine POC Glucometer 135.83747 Random Glucose Lactic Acid 1.434 Calcium Phosphorus Magnesium Cortisol AM Sample Random Vancomycin 06/12/16 12:20 WBC RBC Hgb Hct MCV MCHC RDW Plt Count MPV Neutrophils % Lymphocytes % Monocytes % Eosinophils % Basophils % Puncture Site ABG pH ABG pCO2 at Pt Temp ABG pO2 at Pt Temp ABG HCO3 ABG O2 Sat (Measured) ABG O2 Content ABG Base Excess Frankie Test O2 Delivery Device Oxygen Flow Rate Vent Mode Vent Rate Mechanical Rate PEEP Pressure Support Vent Sodium Potassium Chloride Carbon Dioxide Anion Gap BUN Creatinine POC Glucometer 101.37761 Random Glucose Lactic Acid Calcium Phosphorus Magnesium Cortisol AM Sample Random Vancomycin Active Medications Generic Name Dose Route Start Last Admin Trade Name Freq PRN Reason Stop Dose Admin Albuterol Sulfate 1 amp 06/10/16 04:14 Ventolin 0.083% Nebulizer Soln - NEB Q4H PRN SHORT OF BREATH/WHEEZING Albuterol/Ipratropium 1 amp 06/10/16 06:00 06/12/16 14:28 Duoneb - NEB 1 amp TIDR [facility] Administration Brimonidine Tartrate 1 drop 06/10/16 10:00 06/12/16 10:00 Alphagan 0.2% - OU 1 drop BID [facility] Administration Heparin Sodium (Porcine) 5,000 unit 06/10/16 22:00 06/12/16 06:00 Heparin - SQ 5,000 unit TID [facility] Administration Norepinephrine Bitartrate 8, 500 mls @ 18.75 mls/hr 06/10/16 04:00 06/12/16 03: 55 000 mcg/ Dextrose IV 45 mls/hr TITR [facility] Administration Protocol 5 MCG/MIN Azithromycin 250 mg/ Dextrose 250 mls @ 250 mls/hr 06/10/16 22:00 06/11/16 22: 58 IVPB 250 mls/hr DAILY@2200 [facility] Administration Pantoprazole Sodium 100 mls @ 200 mls/hr 06/10/16 06:00 06/12/16 06:00 Protonix 40mg Ivpb (Pre-Docked) IVPB 200 mls/hr BID@0600,1800 [facility] Administration Meropenem 250 mg/ Dextrose 100 mls @ 400 mls/hr 06/10/16 14:00 06/12/16 10:00 IVPB 400 mls/hr BID [facility] Administration Insulin Aspart 1 vial 06/10/16 16:30 06/12/16 11:00 Novolog Vial Sliding Scale - SQ Not Given ACHS [facility] Protocol Levothyroxine Sodium 25 mcg 06/10/16 07:00 06/12/16 07:00 Synthroid Injection - IVPUSH Not Given AM [facility] Microbiology 06/10/16 04:30 Shoulder - Left Gram Stain - Final 06/10/16 04:30 Shoulder - Left Wound Culture - Preliminary Mr S Aureus Staphylococcus Coagulase Neg Yeast Like Organism 06/09/16 23:00 Blood - Peripheral Venous Blood Culture - Preliminary NO GROWTH OBTAINED AFTER 48 HOURS, INCUBATION TO CONTINUE FOR 3 DAYS. 06/09/16 23:00 Blood - Peripheral Venous Blood Culture - Preliminary NO GROWTH OBTAINED AFTER 48 HOURS, INCUBATION TO CONTINUE FOR 3 DAYS. ASSESSMENT/PLAN: shock secondary to sepsis secondary to multiple ulcers continue IV antibiotics as per id, meropenem and vanco on nor epi at 9 trend lactic acid blood culture, urine culture negative monitor vitals id consult appreciated follow abg in morning use BIPAP in night. monitor on venti mask in day. Patient has low ef with global hypokinesia. May need inotropes if haemodynamic worsen started on puree diet, take aspiration precaution. hyponatremia isotonic monitor sodium increas 0.5 to 1 meq/hr not more than 12 meq in 24 hour patient drowsy could be due to metabolic encephalopathy abdiaziz on ckd renal function worsening avoid nephrotoxic drugs avoid iv fluid nephrology consult appreciated insulin with d50 given for hyperkalemia lactic acidosis improved hypothermia on hector hugger h/o cad, A flutter, chf, global hypokinesia alaquis on hold due to anemia, follow stool for occult cardiology on case hold lasix for now last echo on 06/10 ef 28 and global hypokinesia anemia received 3 unit pc follow hb follow haemoglobin h/o copd not active on duoneb DM on sliding scale follow bgm h/o hypothyroid on synthyroid fluid ; avoid fluid electrolyte ; repeat in am nutrition ; puree diet. dispo : admit in icu Visit type - Emergency Visit Emergency Visit: Yes ED Registration Date: 06/10/16 Care time: The patient presented to the Emergency Department on the above date and was hospitalized for further evaluation of their emergent condition. - New Patient This patient is new to me today: No - Critical Care Critical Care patient: Yes Total Critical Care Time (in minutes): 45 Critical Care Statement: The care of this patient involved high complexity decision making to prevent further life threatening deterioration of the patient 's condition and/or to evalute & treat vital organ system(s) failure or risk of failure.
--- NOTE | 2016-06-12 15:52 | PN ---
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, Physician History of Present Illness: More awake and responsive Hypothermia, hypotension WBC improved Wound c/s mixed, including MRSA - Current Medication List Current Medications: Active Medications Albuterol Sulfate (Ventolin 0.083% Nebulizer Soln -) 1 amp NEB Q4H PRN PRN Reason: SHORT OF BREATH/WHEEZING Albuterol/Ipratropium (Duoneb -) 1 amp NEB TIDR [facility] Last Admin: 06/12/16 14:28 Dose: 1 amp Brimonidine Tartrate (Alphagan 0.2% -) 1 drop OU BID [facility] Last Admin: 06/12/16 10:00 Dose: 1 drop Heparin Sodium (Porcine) (Heparin -) 5,000 unit SQ TID [facility] Last Admin: 06/12/16 06:00 Dose: 5,000 unit Norepinephrine Bitartrate 8, (000 mcg/ Dextrose) 500 mls @ 18.75 mls/hr IV TITR [facility]; 5 MCG/MIN PRN Reason: Protocol Last Admin: 06/12/16 03:55 Dose: 45 mls/hr Azithromycin 250 mg/ Dextrose 250 mls @ 250 mls/hr IVPB DAILY@2200 [facility] Last Admin: 06/11/16 22:58 Dose: 250 mls/hr Pantoprazole Sodium (Protonix 40mg Ivpb (Pre-Docked)) 100 mls @ 200 mls/hr IVPB BID@0600,1800 [facility] Last Admin: 06/12/16 06:00 Dose: 200 mls/hr Meropenem 250 mg/ Dextrose 100 mls @ 400 mls/hr IVPB BID [facility] Last Admin: 06/12/16 10:00 Dose: 400 mls/hr Insulin Aspart (Novolog Vial Sliding Scale -) 1 vial SQ ACHS [facility] PRN Reason: Protocol Last Admin: 06/12/16 11:00 Dose: Not Given Levothyroxine Sodium (Synthroid Injection -) 25 mcg IVPUSH AM [facility] Last Admin: 06/12/16 07:00 Dose: Not Given - Objective Vital Signs: Vital Signs Temperature 97.6 F 06/12/16 07:00 Pulse Rate 65 06/12/16 14:00 Respiratory Rate 13 06/12/16 14:00 Blood Pressure 104/67 06/12/16 14:00 O2 Sat by Pulse Oximetry (%) 100 06/12/16 14:26 Constitutional: Yes: No Distress Cardiovascular: Yes: Regular Rate and Rhythm, S1, S2 Respiratory: Yes: CTA Bilaterally Gastrointestinal: Yes: Normal Bowel Sounds, Soft. No: Tenderness Edema: Yes Integumentary: Yes: Other (L shoulder wound) Labs: CBC, BMP 06/12/16 05:05 06/12/16 14:20 INR, PTT INR 1.85 (0.82-1.09) H 06/11/16 05:15 Fibrinogen 405.0 mg/dL (238-498) 06/10/16 04:45 Assessment/Plan Sepsis/ septic shock Hypothermia/ hypotension Possible HCAP Multiple decubitus ulcers CKD Electrolyte imbalance Toxic metabolic encephalopathy Recent polymicrobial bacteremia Continue meropenem Redose vancomycin Contact precautions
--- NOTE | 2016-06-12 17:00 | PN ---
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, Physician History of Present Illness: Pt seen and examined at bedside. He is more awake today than he was yesterday. He feels that his breathing is a little better. His blood pressure and urine output have been improving as well. - Current Medication List Current Medications: Active Medications Albuterol Sulfate (Ventolin 0.083% Nebulizer Soln -) 1 amp NEB Q4H PRN PRN Reason: SHORT OF BREATH/WHEEZING Albuterol Sulfate (Ventolin 0.083% Nebulizer Soln -) 1 amp NEB ONCE ONE Stop: 06/12/16 16:36 Albuterol/Ipratropium (Duoneb -) 1 amp NEB TIDR [facility] Last Admin: 06/12/16 14:28 Dose: 1 amp Brimonidine Tartrate (Alphagan 0.2% -) 1 drop OU BID [facility] Last Admin: 06/12/16 10:00 Dose: 1 drop Dextrose (D50w (Vial) -) 50 ml IVPUSH NOW ONE Stop: 06/12/16 15:58 Heparin Sodium (Porcine) (Heparin -) 5,000 unit SQ TID [facility] Last Admin: 06/12/16 14:00 Dose: 5,000 unit Norepinephrine Bitartrate 8, (000 mcg/ Dextrose) 500 mls @ 18.75 mls/hr IV TITR [facility]; 5 MCG/MIN PRN Reason: Protocol Last Admin: 06/12/16 03:55 Dose: 45 mls/hr Azithromycin 250 mg/ Dextrose 250 mls @ 250 mls/hr IVPB DAILY@2200 [facility] Last Admin: 06/11/16 22:58 Dose: 250 mls/hr Pantoprazole Sodium (Protonix 40mg Ivpb (Pre-Docked)) 100 mls @ 200 mls/hr IVPB BID@0600,1800 [facility] Last Admin: 06/12/16 06:00 Dose: 200 mls/hr Meropenem 250 mg/ Dextrose 100 mls @ 400 mls/hr IVPB BID [facility] Last Admin: 06/12/16 10:00 Dose: 400 mls/hr Vancomycin HCl 1,000 mg/ (Dextrose) 250 mls @ 200 mls/hr IVPB ONCE ONE Stop: 06/12/16 17:09 Insulin Aspart (Novolog Vial Sliding Scale -) 1 vial SQ ACHS [facility] PRN Reason: Protocol Last Admin: 06/12/16 16:39 Dose: Not Given Insulin Human Regular (Novolin R Vial *For Ivpush Or Iv Drip Only*) 10 units IVPUSH ONCE ONE Stop: 06/12/16 15:57 Levothyroxine Sodium (Synthroid Injection -) 25 mcg IVPUSH AM [facility] Last Admin: 06/12/16 07:00 Dose: Not Given - Objective Vital Signs: Vital Signs Temperature 97.6 F 06/12/16 07:00 Pulse Rate 65 06/12/16 14:00 Respiratory Rate 13 06/12/16 14:00 Blood Pressure 104/67 06/12/16 14:00 O2 Sat by Pulse Oximetry (%) 97 06/12/16 16:08 Constitutional: Yes: Calm Eyes: Yes: Conjunctiva Clear Cardiovascular: Yes: S1, S2 Respiratory: Yes: On Venti-Mask Gastrointestinal: Yes: Soft, Abdomen, Obese Genitourinary: Yes: López Present Musculoskeletal: Yes: Muscle Weakness Edema: Yes Edema: LLE: 3+, RLE: 3+ Integumentary: Yes: Erythema Neurological: Yes: Oriented Labs: CBC, BMP 06/12/16 05:05 06/12/16 14:20 INR, PTT INR 1.85 (0.82-1.09) H 06/11/16 05:15 Fibrinogen 405.0 mg/dL (238-498) 06/10/16 04:45 - ....Imaging Chest X-ray: Report Reviewed Problem List - Problems (1) Acute hyperkalemia Code(s): E87.5 - HYPERKALEMIA (2) Hyponatremia Code(s): E87.1 - HYPO-OSMOLALITY AND HYPONATREMIA (3) Hypotension Code(s): I95.9 - HYPOTENSION, UNSPECIFIED Qualifiers: Hypotension type: other hypotension type Qualified Code(s): I95.89 - Other hypotension (4) Acute on chronic renal failure Code(s): N17.9 - ACUTE KIDNEY FAILURE, UNSPECIFIED N18.9 - CHRONIC KIDNEY DISEASE, UNSPECIFIED (5) Anemia Code(s): D64.9 - ANEMIA, UNSPECIFIED Qualifiers: Other causes of anemia: chronic disease, kidney (6) COPD (chronic obstructive pulmonary disease) Code(s): J44.9 - CHRONIC OBSTRUCTIVE PULMONARY DISEASE, UNSPECIFIED (7) Congestive heart failure (CHF) Code(s): I50.9 - HEART FAILURE, UNSPECIFIED Qualifiers: Congestive heart failure type: systolic Congestive heart failure chronicity: chronic Qualified Code(s): I50.22 - Chronic systolic (congestive ) heart failure (8) DMII (diabetes mellitus, type 2) Code(s): E11.9 - TYPE 2 DIABETES MELLITUS WITHOUT COMPLICATIONS Qualifiers: Diabetes mellitus complication detail: with other kidney complication (9) CKD (chronic kidney disease) Code(s): N18.9 - CHRONIC KIDNEY DISEASE, UNSPECIFIED Assessment/Plan Current Medications Generic Name Dose Route Start Last Admin Trade Name Freq PRN Reason Stop Dose Admin Albuterol Sulfate 1 amp 06/10/16 04:14 Ventolin 0.083% Nebulizer Soln - NEB Q4H PRN SHORT OF BREATH/WHEEZING Albuterol Sulfate 1 amp 06/12/16 16:35 Ventolin 0.083% Nebulizer Soln - NEB 06/12/16 16:36 ONCE ONE Albuterol/Ipratropium 1 amp 06/10/16 06:00 06/12/16 14:28 Duoneb - NEB 1 amp TIDR [facility] Administration Brimonidine Tartrate 1 drop 06/10/16 10:00 06/12/16 10:00 Alphagan 0.2% - OU 1 drop BID [facility] Administration Dextrose 50 ml 06/12/16 15:57 D50w (Vial) - IVPUSH 06/12/16 15:58 NOW ONE Heparin Sodium (Porcine) 5,000 unit 06/10/16 22:00 06/12/16 14:00 Heparin - SQ 5,000 unit TID [facility] Administration Norepinephrine Bitartrate 8, 500 mls @ 18.75 mls/hr 06/10/16 04:00 06/12/16 03: 55 000 mcg/ Dextrose IV 45 mls/hr TITR [facility] Administration Protocol 5 MCG/MIN Azithromycin 250 mg/ Dextrose 250 mls @ 250 mls/hr 06/10/16 22:00 06/11/16 22: 58 IVPB 250 mls/hr DAILY@2200 [facility] Administration Pantoprazole Sodium 100 mls @ 200 mls/hr 06/10/16 06:00 06/12/16 06:00 Protonix 40mg Ivpb (Pre-Docked) IVPB 200 mls/hr BID@0600,1800 [facility] Administration Meropenem 250 mg/ Dextrose 100 mls @ 400 mls/hr 06/10/16 14:00 06/12/16 10:00 IVPB 400 mls/hr BID [facility] Administration Vancomycin HCl 1,000 mg/ 250 mls @ 200 mls/hr 06/12/16 15:55 Dextrose IVPB 06/12/16 17:09 ONCE ONE Insulin Aspart 1 vial 06/10/16 16:30 06/12/16 16:39 Novolog Vial Sliding Scale - SQ Not Given ACHS [facility] Protocol Insulin Human Regular 10 units 06/12/16 15:56 Novolin R Vial *For Ivpush Or Iv Drip Only* IVPUSH 06/12/16 15:57 ONCE ONE Levothyroxine Sodium 25 mcg 06/10/16 07:00 06/12/16 07:00 Synthroid Injection - IVPUSH Not Given AM [facility] Laboratory Tests 06/12/16 05:05 Sodium 125 L Potassium 6.0 H Chloride 95 L Carbon Dioxide 17 L Anion Gap 13 BUN 104 H Creatinine 4.2 H Impression 1. CASE on CKD 2. sepsis with shock 3. cellulitis/abscess of back 4. CHF 5. hypothyroidism 6. hyperlipidemia 7. COPD 8. htn 9. a-fib 10. hyponatremia - isoosmolar Plan - follow up spep - repeat plasma osm - repeat labs in am - discussed HD with pt and with ICU team. Will re-evaluate labs in am - pressor requirements are improving - potassium treated medically - resume PO bicarb - cont pressors to a map of 65 - will follow Dr Martinez
[2016-06-12] MEDS: ALBUTEROL SO4 0.083% IH SOL 2.5 MG/3 ML VIAL.NEB. NEB SCH ×4 (17:15→18:05)
[2016-06-12] MEDS ORDERED: ALBUTEROL SO4 0.083% IH SOL 2.5 MG/3 ML VIAL.NEB. NEB ONE (17:45)
[2016-06-12] MEDS ORDERED: SODIUM BICARBONATE 8.4% 50 MEQ/50 ML VIAL IV ONE (17:45)
[2016-06-12] MEDS ORDERED: VANCOMYCIN 1 GRAM (PRE-DOCKED) 250 ML IVPB ONE (17:45)
[2016-06-12] MEDS ORDERED: SODIUM POLYSTYRENE SULFONATE 15 GM/60 ML BOTTLE PO ONE (17:45)
[2016-06-12] MEDS: AZITHROMYCIN IVPB 250 MG in DEXTROSE 5%-WATER - 250 ML IVPB SCH (21:04)
[2016-06-12] MEDS: SODIUM BICARBONATE 650 MG TABLET PO SCH (21:04)
--- NOTE | 2016-06-12 21:56 | PN ---
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, Physician Chief Complaint: ASLEEP AROUSABLE ON 02 SUPPORT MASK - Current Medication List Current Medications: Active Medications Albuterol Sulfate (Ventolin 0.083% Nebulizer Soln -) 1 amp NEB Q4H PRN PRN Reason: SHORT OF BREATH/WHEEZING Albuterol/Ipratropium (Duoneb -) 1 amp NEB TIDR [facility] Last Admin: 06/12/16 21:52 Dose: 1 amp Brimonidine Tartrate (Alphagan 0.2% -) 1 drop OU BID [facility] Last Admin: 06/12/16 21:07 Dose: 1 drop Heparin Sodium (Porcine) (Heparin -) 5,000 unit SQ TID [facility] Last Admin: 06/12/16 21:03 Dose: 5,000 unit Norepinephrine Bitartrate 8, (000 mcg/ Dextrose) 500 mls @ 18.75 mls/hr IV TITR [facility]; 5 MCG/MIN PRN Reason: Protocol Last Admin: 06/12/16 03:55 Dose: 45 mls/hr Azithromycin 250 mg/ Dextrose 250 mls @ 250 mls/hr IVPB DAILY@2200 [facility] Last Admin: 06/12/16 21:04 Dose: 250 mls/hr Pantoprazole Sodium (Protonix 40mg Ivpb (Pre-Docked)) 100 mls @ 200 mls/hr IVPB BID@0600,1800 [facility] Last Admin: 06/12/16 18:42 Dose: 200 mls/hr Meropenem 250 mg/ Dextrose 100 mls @ 400 mls/hr IVPB BID [facility] Last Admin: 06/12/16 21:00 Dose: 400 mls/hr Insulin Aspart (Novolog Vial Sliding Scale -) 1 vial SQ ACHS [facility] PRN Reason: Protocol Last Admin: 06/12/16 21:04 Dose: Not Given Levothyroxine Sodium (Synthroid Injection -) 25 mcg IVPUSH AM [facility] Last Admin: 06/12/16 07:00 Dose: Not Given Sodium Bicarbonate (Sodium Bicarbonate -) 650 mg PO BID [facility] Last Admin: 06/12/16 21:04 Dose: Not Given - Objective Vital Signs: Vital Signs Temperature 95 F L 06/12/16 18:00 Pulse Rate 74 06/12/16 18:00 Respiratory Rate 16 06/12/16 18:00 Blood Pressure 103/56 06/12/16 18:00 O2 Sat by Pulse Oximetry (%) 97 06/12/16 16:08 Constitutional: Yes: Moderate Distress Eyes: Yes: WNL HENT: Yes: WNL Neck: Yes: WNL Cardiovascular: Yes: Pulse Irregular Respiratory: Yes: On Venti-Mask, SOB, Wheezes Gastrointestinal: Yes: WNL Genitourinary: Yes: López Present Musculoskeletal: Yes: Muscle Weakness Extremities: Yes: WNL Edema: Yes Edema: LLE: 2+, RLE: 2+ Peripheral Pulses WNL: Yes Integumentary: Yes: Pressure Ulcer, Rash, Skin Tear, Venous Stasis Changes Wound/Incision: Yes: Draining, Unapproximated Neurological: Yes: Pre-Existing Deficit, Unsteady Gait, Other ...Motor Strength: LLE, RLE Psychiatric: Yes: Other Labs: CBC, BMP 06/12/16 05:05 06/12/16 20:10 INR, PTT INR 1.85 (0.82-1.09) H 06/11/16 05:15 Fibrinogen 405.0 mg/dL (238-498) 06/10/16 04:45 Problem List - Problems (1) CKD (chronic kidney disease) Code(s): N18.9 - CHRONIC KIDNEY DISEASE, UNSPECIFIED (2) Hyponatremia Code(s): E87.1 - HYPO-OSMOLALITY AND HYPONATREMIA (3) Hypotension Code(s): I95.9 - HYPOTENSION, UNSPECIFIED Qualifiers: Hypotension type: other hypotension type Qualified Code(s): I95.89 - Other hypotension (4) Lung consolidation Code(s): J18.1 - LOBAR PNEUMONIA, UNSPECIFIED ORGANISM (5) Anemia Code(s): D64.9 - ANEMIA, UNSPECIFIED Qualifiers: Other causes of anemia: chronic disease, kidney (6) Atrial flutter Code(s): I48.92 - UNSPECIFIED ATRIAL FLUTTER (7) Bacteremia Code(s): R78.81 - BACTEREMIA (8) COPD (chronic obstructive pulmonary disease) Code(s): J44.9 - CHRONIC OBSTRUCTIVE PULMONARY DISEASE, UNSPECIFIED (9) DMII (diabetes mellitus, type 2) Code(s): E11.9 - TYPE 2 DIABETES MELLITUS WITHOUT COMPLICATIONS Qualifiers: Diabetes mellitus complication detail: with other kidney complication (10) Dyspnea Code(s): R06.00 - DYSPNEA, UNSPECIFIED Qualifiers: Dyspnea type: shortness of breath Qualified Code(s): R06.02 - Shortness of breath (11) Pressure ulcer of lower extremity, stage 1 Code(s): L89.891 - PRESSURE ULCER OF OTHER SITE, STAGE 1 (12) Sepsis Code(s): A41.9 - SEPSIS, UNSPECIFIED ORGANISM Qualifiers: Sepsis type: sepsis due to unspecified organism Qualified Code(s): A41.9 - Sepsis, unspecified organism (13) Weakness of both lower limbs Code(s): M62.81 - MUSCLE WEAKNESS (GENERALIZED) (14) Wound of left shoulder Code(s): S41.002A - UNSPECIFIED OPEN WOUND OF LEFT SHOULDER, INITIAL ENCOUNTER Qualifiers: Encounter type: subsequent encounter Qualified Code(s): S41.002D - Unspecified open wound of left shoulder, subsequent encounter Assessment/Plan SEPSIS ON ABX RENAL FAILURE NEPHROLOGY FOLLOW UP DISCUSSED WITH FAMILY BEDSIDE FOR OVER 30 MINUTES VERY CRITICAL AT THIS TIME SURGERY EVAL FOR LEG EDEMA AND LEFT BACK WOUND DVT PROPHYLAXIS
[2016-06-13 00:10] LABS: A/G RATIO 0.7 (0.7-1.7); GLOBULIN, TOTAL 2.8 g/dL (2.2-3.9); M-SPIKE Not Observed g/dL (Not Observed); TOTAL PROTEIN 4.8 g/dL (6.0-8.5)
[2016-06-13] MEDS ORDERED: PT OWN MED DRAWER 7, Y5N ONE ×3 (02:59→22:43)
[2016-06-13 06:05] LABS: BASOPHIL 0.2 % (0-2.0); EOSINOPHIL 0.3 % (0-4.5); MCH 29.2 pg (25.7-33.7); MCHC 33.3 g/dl (32.0-35.9); MEAN CELL VOLUME 87.7 fl (80-96); MEAN PLT VOLUME 8.5 fl (7.5-11.1); NEUTROPHILS 88.1 % (42.8-82.8); PLATELET COUNT 159 K/MM3 (134-434); WHITE BLOOD COUNT 11.1 K/mm3 (4.0-10.0)
[2016-06-13] MEDS: HEPARIN NA (PORCINE) 5,000 UNITS/ML 1ML VIAL SQ SCH ×2 (06:06→14:00)
[2016-06-13] MEDS: PANTOPRAZOLE SODIUM 100 ML IVPB SCH ×2 (06:06→18:36)
[2016-06-13] MEDS: INSULIN SLIDING SCALE (NOVOLOG) 1 VIAL SQ SCH ×3 (06:06→16:30)
[2016-06-13] MEDS: ALBUTEROL SO4 2.5/IPRATROPIUM 0.5 INH SOL 3 ML VIAL.NEB. NEB SCH ×3 (06:15→22:00)
[2016-06-13] MEDS: LEVOTHYROXINE SODIUM 100 MCG VIAL IVPUSH SCH (06:20)
[2016-06-13 06:33] LABS: CALCIUM 7.8 mg/dL (8.5-10.1); CREATININE 4.2 mg/dL (0.7-1.3)
[2016-06-13 07:22] LABS: ALLENS TEST POSITIVE; ARTERIAL BLD GAS O2 SATURATION 99.5 % (90-98.9); ARTERIAL BLOOD GAS BASE EXCESS -10.7 meq/l (-2-2); ARTERIAL BLOOD GAS pH 7.32 (7.35-7.45)
[2016-06-13 07:23] LABS: ART PUNCT SITE RIGHT RADIAL; LPM/O2% 35%; MECH. VENT. BIPAP; PT. ON O2? YES; TYPE OF O2 BIPAP; VENT RATE 16
[2016-06-13] MEDS ORDERED: INSULIN REGULAR HUMAN 100 UNITS/ML *VIAL IVPUSH ONE (07:48)
[2016-06-13] MEDS ORDERED: DEXTROSE 50%-WATER 50 ML VIAL IVPUSH ONE (07:48)
[2016-06-13] MEDS ORDERED: SODIUM POLYSTYRENE SULFONATE 15 GM/60 ML BOTTLE ONE (08:23)
[2016-06-13] MEDS ORDERED: CALCIUM GLUCONATE 10% - 1,000 MG/10 ML VIAL IVPB ONE (08:30)
[2016-06-13] MEDS: ALBUTEROL SO4 0.083% IH SOL 2.5 MG/3 ML VIAL.NEB. NEB SCH ×2 (09:50→11:41)
[2016-06-13] MEDS: MEROPENEM 250 MG in DEXTROSE 5%-WATER - 100 ML IVPB SCH ×2 (10:00→23:00)
[2016-06-13] MEDS: BRIMONIDINE TARTRATE 0.2% OPHTHALMIC 5 ML BOTTLE OU SCH ×2 (10:00→22:44)
[2016-06-13] MEDS: SODIUM BICARBONATE 650 MG TABLET PO SCH ×2 (10:00→22:49)
--- NOTE | 2016-06-13 10:30 | PN ---
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, Physician Chief Complaint: Septic Shock HFrEF. Paroxysmal Afib/AFlutter History of Present Illness: No events. Somnolent but arousable. Answering questions. Tele: Afib with ventricular rat 70s. No other events. Making urine. Negative balance today. On NE 2 mcg - Current Medication List Current Medications: Active Medications Albuterol Sulfate (Ventolin 0.083% Nebulizer Soln -) 1 amp NEB Q4H PRN PRN Reason: SHORT OF BREATH/WHEEZING Albuterol/Ipratropium (Duoneb -) 1 amp NEB TIDR REPLACED BY [facility] Last Admin: 06/13/16 06:15 Dose: 1 amp Brimonidine Tartrate (Alphagan 0.2% -) 1 drop OU BID REPLACED BY [facility] Last Admin: 06/12/16 21:07 Dose: 1 drop Heparin Sodium (Porcine) (Heparin -) 5,000 unit SQ TID REPLACED BY [facility] Last Admin: 06/13/16 06:06 Dose: 5,000 unit Norepinephrine Bitartrate 8, (000 mcg/ Dextrose) 500 mls @ 18.75 mls/hr IV TITR [facility]; 5 MCG/MIN PRN Reason: Protocol Last Admin: 06/12/16 20:00 Dose: 15 mls/hr Azithromycin 250 mg/ Dextrose 250 mls @ 250 mls/hr IVPB DAILY@2200 REPLACED BY [facility] Last Admin: 06/12/16 21:04 Dose: 250 mls/hr Pantoprazole Sodium (Protonix 40mg Ivpb (Pre-Docked)) 100 mls @ 200 mls/hr IVPB BID@0600,1800 REPLACED BY [facility] Last Admin: 06/13/16 06:06 Dose: 200 mls/hr Meropenem 250 mg/ Dextrose 100 mls @ 400 mls/hr IVPB BID REPLACED BY [facility] Last Admin: 06/12/16 21:00 Dose: 400 mls/hr Insulin Aspart (Novolog Vial Sliding Scale -) 1 vial SQ ACHS REPLACED BY [facility] PRN Reason: Protocol Last Admin: 06/13/16 06:06 Dose: Not Given Levothyroxine Sodium (Synthroid Injection -) 25 mcg IVPUSH AM REPLACED BY [facility] Last Admin: 06/13/16 06:20 Dose: 25 mcg Sodium Bicarbonate (Sodium Bicarbonate -) 650 mg PO BID REPLACED BY [facility] Last Admin: 06/12/16 21:04 Dose: Not Given - Objective Vital Signs: Vital Signs Temperature 95.2 F L 06/13/16 05:00 Pulse Rate 76 06/13/16 08:00 Respiratory Rate 12 06/13/16 08:00 Blood Pressure 95/72 06/13/16 08:00 O2 Sat by Pulse Oximetry (%) 98 06/13/16 07:06 Constitutional: Yes: No Distress, Calm Cardiovascular: Yes: Pulse Irregular. No: Gallop, Murmur Respiratory: Yes: On Venti-Mask (Decreased breath sounds bilaterally, ronchi.) Gastrointestinal: Yes: Soft, Abdomen, Obese Extremities: Yes: WNL (Warm extremities) Edema: Yes Edema: LLE: 3+, RLE: 3+ Labs: CBC, BMP 06/13/16 05:15 06/13/16 05:15 INR, PTT INR 1.85 (0.82-1.09) H 06/11/16 05:15 Fibrinogen 405.0 mg/dL (238-498) 06/10/16 04:45 - ....Imaging Chest X-ray: Image Reviewed EKG: Image Reviewed (Initial ECG on 06/09/16 demonstrated possible junctional rhythm with T wave abnormalities in V3-6. subsequent sinus per telemetry with episodes of Afib with normal rate.) Other: Other (Echocardiogram on 06/10/16 demonstrated severe systolic dysfunction with mildly dilated LV, mod TR, RVSP 30-40 mmHg, mild AR, mild MR, mild OR, and small pericardial effusion (< 1 cm).) Assessment/Plan 76 yo male with known CAD, prior GA (mild diffuse prox RCA disease, no intervention), paroxysmal atrial fib/flutter (on Eliquis), HFrEF (severely reduced LV systolic function per 04/14/16 echo), HTN, DM, CKD, hyperlipidemia, who was recently hospitalized at [facility] from 05/23-06/02/16 for cellulitis/abscess of left shoulder and lower extremities, and bacteremia. Now admitted with septic shock, acute on chronic renal failure, hyperkalemia, and anemia requiring pressor and inotropic support (NE and DBT) currently on low dose of NE. Do not suspect that patient is in cardiogenic shock at this time. Possible HCAP? Multiple skin ulcers - skin infection. Off [employer] -. coming down on levo (only at 2 mcg) Making urine with negative balance today. RECS: Cont to titrate levo to off. Keep MAP 65-70. HD being considered by renal. Please consider trial of diuresis if no HD. Continue treatment for hyperkalemia. Keep K 4-5. Continue to hold anticoagulation for afib given anemia. Anemia work up by primary team. Strict I&O. Daily weight. Please follow blood cultures. Continue antibiotics per ID recommendations. Transfuse with PRBCs as needed. Would try to keep Hgb closer to 10 given his cardiac history. Further recs as per ICU team,nephrology, and ID service.
--- NOTE | 2016-06-13 10:55 | PN ---
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, Physician History of Present Illness: Awake, responsive No complaints offered No acute distress Remains hypothermic on warming blanket, hypotensive on pressors WBC improved Vancomycin trough 19 - Current Medication List Current Medications: Active Medications Albuterol Sulfate (Ventolin 0.083% Nebulizer Soln -) 1 amp NEB Q4H PRN PRN Reason: SHORT OF BREATH/WHEEZING Albuterol/Ipratropium (Duoneb -) 1 amp NEB TIDR [facility] Last Admin: 06/13/16 06:15 Dose: 1 amp Brimonidine Tartrate (Alphagan 0.2% -) 1 drop OU BID [facility] Last Admin: 06/12/16 21:07 Dose: 1 drop Heparin Sodium (Porcine) (Heparin -) 5,000 unit SQ TID [facility] Last Admin: 06/13/16 06:06 Dose: 5,000 unit Norepinephrine Bitartrate 8, (000 mcg/ Dextrose) 500 mls @ 18.75 mls/hr IV TITR [facility]; 5 MCG/MIN PRN Reason: Protocol Last Admin: 06/12/16 20:00 Dose: 15 mls/hr Azithromycin 250 mg/ Dextrose 250 mls @ 250 mls/hr IVPB DAILY@2200 [facility] Last Admin: 06/12/16 21:04 Dose: 250 mls/hr Pantoprazole Sodium (Protonix 40mg Ivpb (Pre-Docked)) 100 mls @ 200 mls/hr IVPB BID@0600,1800 [facility] Last Admin: 06/13/16 06:06 Dose: 200 mls/hr Meropenem 250 mg/ Dextrose 100 mls @ 400 mls/hr IVPB BID [facility] Last Admin: 06/12/16 21:00 Dose: 400 mls/hr Insulin Aspart (Novolog Vial Sliding Scale -) 1 vial SQ ACHS [facility] PRN Reason: Protocol Last Admin: 06/13/16 06:06 Dose: Not Given Levothyroxine Sodium (Synthroid Injection -) 25 mcg IVPUSH AM [facility] Last Admin: 06/13/16 06:20 Dose: 25 mcg Sodium Bicarbonate (Sodium Bicarbonate -) 650 mg PO BID [facility] Last Admin: 06/12/16 21:04 Dose: Not Given - Objective Vital Signs: Vital Signs Temperature 93.3 F L 06/13/16 09:28 Pulse Rate 76 06/13/16 09:28 Respiratory Rate 12 06/13/16 09:28 Blood Pressure 92/59 06/13/16 09:28 O2 Sat by Pulse Oximetry (%) 98 06/13/16 07:06 Constitutional: Yes: No Distress Eyes: Yes: Conjunctiva Clear Cardiovascular: Yes: Regular Rate and Rhythm, S1, S2 Respiratory: Yes: Diminished Gastrointestinal: Yes: Normal Bowel Sounds, Soft. No: Tenderness Edema: Yes Integumentary: Yes: Other (multiple decubitus ulcers L shoulder wound with granulation tissue) Labs: CBC, BMP 06/13/16 05:15 06/13/16 05:15 INR, PTT INR 1.85 (0.82-1.09) H 06/11/16 05:15 Fibrinogen 405.0 mg/dL (238-498) 06/10/16 04:45 Assessment/Plan Sepsis/ septic shock Hypothermia/ hypotension Possible HCAP R Multiple decubitus ulcers CKD Electrolyte imbalance Toxic metabolic encephalopathy Recent polymicrobial bacteremia Continue meropenem, adjusted for renal failure Check vancomycin level am Continue respiratory, hemodynamic support Contact precautions
[2016-06-13] MEDS ORDERED: FUROSEMIDE 40 MG/4 ML INJECTABLE VIAL ONE (11:11)
[2016-06-13] MEDS ORDERED: SODIUM BICARBONATE 8.4% - 50 ML ONE (11:12)
[2016-06-13] MEDS ORDERED: SODIUM BICARBONATE 8.4% 50 MEQ/50 ML VIAL IV ONE (11:26)
--- NOTE | 2016-06-13 11:48 | EKG ---
Test Reason : Blood Pressure : / mmHG Vent. Rate : 074 BPM Atrial Rate : 074 BPM P-R Int : 000 ms QRS Dur : 136 ms QT Int : 416 ms P-R-T Axes : 000 -16 191 degrees QTc Int : 461 ms ATRIAL FIBRILLATION NON-SPECIFIC INTRA-VENTRICULAR CONDUCTION BLOCK T WAVE ABNORMALITY, CONSIDER ANTEROLATERAL ISCHEMIA ABNORMAL ECG POOR DATA QUALITY, INTERPRETATION MAY BE ADVERSELY AFFECTED Confirmed by JOSH PEARCE MD ([id number]) on 06/13/2016 11:47:51 AM Referred By: Confirmed By:JOSH PEARCE MD
[2016-06-13] MEDS ORDERED: ASCORBIC ACID IVPB ONE (12:15)
[2016-06-13] MEDS ORDERED: SODIUM CHLORIDE IVPB ONE (12:15)
--- NOTE | 2016-06-13 12:27 | PN ---
Teaching Attending Note Name of Resident: Patricio Andrade ATTENDING PHYSICIAN STATEMENT I saw and evaluated the patient. I reviewed the resident's note and discussed the case with the resident. I agree with the resident's findings and plan as documented. SUBJECTIVE: Pt seen and examined in the ICU. Remains on ventimask. More alert, awake today. Able to take PO this AM. Remains on levophed gtt. OBJECTIVE: Last Vital Signs Temp Pulse Resp BP Pulse Ox 93.3 F L 78 12 87/62 97 06/13/16 10:00 06/13/16 12:00 06/13/16 12:00 06/13/16 12:00 06/13/16 10:35 Intake & Output 06/10/16 06/11/16 06/12/16 06/13/16 23:59 23:59 23:59 23:59 Intake Total 4115 2023 1620 144 Output Total 210 625 875 700 Balance 3905 1398 745 -556 Weight 258 lb 1.6 oz 262 lb 7.355 oz 244 lb 8 oz 237 lb 7.005 oz Gen: mildly tachypneic at rest, more alert Heart: RRR Lung: scattered rhonchi Abd: soft, nontender Ext: + edema, dressings serous CBC, BMP 06/13/16 05:15 06/13/16 05:15 Active Medications Albuterol Sulfate (Ventolin 0.083% Nebulizer Soln -) 1 amp NEB Q4H PRN PRN Reason: SHORT OF BREATH/WHEEZING Albuterol/Ipratropium (Duoneb -) 1 amp NEB TIDR [facility] Last Admin: 06/13/16 06:15 Dose: 1 amp Brimonidine Tartrate (Alphagan 0.2% -) 1 drop OU BID [facility] Last Admin: 06/12/16 21:07 Dose: 1 drop Furosemide (Lasix Injection -) 80 mg IVPUSH BID@1000,2200 [facility] Heparin Sodium (Porcine) (Heparin -) 5,000 unit SQ TID [facility] Last Admin: 06/13/16 06:06 Dose: 5,000 unit Norepinephrine Bitartrate 8, (000 mcg/ Dextrose) 500 mls @ 18.75 mls/hr IV TITR [facility]; 5 MCG/MIN PRN Reason: Protocol Last Admin: 06/12/16 20:00 Dose: 15 mls/hr Azithromycin 250 mg/ Dextrose 250 mls @ 250 mls/hr IVPB DAILY@2200 [facility] Last Admin: 06/12/16 21:04 Dose: 250 mls/hr Pantoprazole Sodium (Protonix 40mg Ivpb (Pre-Docked)) 100 mls @ 200 mls/hr IVPB BID@0600,1800 [facility] Last Admin: 06/13/16 06:06 Dose: 200 mls/hr Meropenem 250 mg/ Dextrose 100 mls @ 400 mls/hr IVPB BID [facility] Last Admin: 06/12/16 21:00 Dose: 400 mls/hr Ascorbic Acid 1,500 mg/ Sodium (Chloride) 103 mls @ 103 mls/hr IVPB ONCE ONE Stop: 06/13/16 13:14 Insulin Aspart (Novolog Vial Sliding Scale -) 1 vial SQ ACHS [facility] PRN Reason: Protocol Last Admin: 06/13/16 06:06 Dose: Not Given Levothyroxine Sodium (Synthroid Injection -) 25 mcg IVPUSH AM [facility] Last Admin: 06/13/16 06:20 Dose: 25 mcg Sodium Bicarbonate (Sodium Bicarbonate -) 650 mg PO BID [facility] Last Admin: 06/12/16 21:04 Dose: Not Given Thiamine HCl (Vitamin B1 Injection -) 200 mg IVPB BID [facility] Stop: 06/17/16 21:59 ASSESSMENT AND PLAN: Back/Shoulder Cellulitis/Abscess Leg Ulcers Septic Shock Acute on Chronic Renal Failure Metabolic Acidosis Acute on Chronic LV Systolic Heart Failure Atrial Fibrillation COPD Hyponatremia - continue antibiotics - surgery evaluation for leg ulcers - continue lasix - levophed gtt to maintain MAP >65 - O2 to keep SpO2 >90% - aspiration precautions - inhaled bronchodilators - may need HD - continue ICU monitoring for pressor support and tenuous respiratory status - DVT prophylaxis
[2016-06-13] MEDS ORDERED: THIAMINE HCL 200 MG/2 ML VIAL IVPB SCH ×2 (13:30→22:00)
--- NOTE | 2016-06-13 14:29 | PN ---
Physical Exam: SUBJECTIVE: Patient seen and examined patient lying in bed patient awake, oriented Patient had breakfast in morning. denies sob, chest pain, levophed tapered to 2 map 74 on venti mask spo2 99 use bipap over night OBJECTIVE: Vital Signs Period Temp Pulse Resp BP Sys/Hubbard Pulse Ox Last 24 Hr 93.3 F-96.7 F 64-80 11-17 85-103/43-72 95-98 GENERAL: drowsy but arousable HEAD: Normal with no signs of trauma. EYES: Pupils equal, round and reactive to light, EARS, NOSE, THROAT: Ears normal, nares patent, oropharynx clear without exudates. moist mucous membranes. NECK no jvd, no lymphadenopathy LUNGS: decrease breath sound b/l, ronchi, on bipapa, pick line in situ. HEART: s1s2 normal, ABDOMEN: Soft, nontender, not distended, normoactive bowel sounds, no guarding, no rebound, no masses. scrotal and penile swelling present UPPER EXTREMITIES: 2+ pulses, warm, well-perfused. No cyanosis. No clubbing. Cap refill <2 seconds. No peripheral edema. wound on back of shoulder clean, granulation tissue present, no slough, no discharge. LOWER EXTREMITIES: multiple ulcers resent on b/l lower limb, b/l pidding edema + +++, NEUROLOGICAL: unobtainable Laboratory Results - last 24 hr 06/10/16 06/10/16 06/11/16 04:45 14:00 13:00 WBC RBC Hgb Hct MCV MCHC RDW Plt Count MPV Neutrophils % Lymphocytes % Monocytes % Eosinophils % Basophils % Plasma Free Hgb 5.5 H Puncture Site ABG pH ABG pCO2 at Pt Temp ABG pO2 at Pt Temp ABG HCO3 ABG O2 Sat (Measured) ABG O2 Content ABG Base Excess Frankie Test O2 Delivery Device Oxygen Flow Rate Vent Mode Vent Rate Mechanical Rate PEEP Pressure Support Vent Sodium Potassium Chloride Carbon Dioxide Anion Gap BUN Creatinine POC Glucometer Random Glucose Serum Osmolality Calcium Prot Electrophoresis Serum Total Protein 4.8 L Albumin 2.0 L Globulin 2.8 Albumin/Globulin Ratio 0.7 Poerx-6-Ssvzmsvrx 0.4 Zhyqh-5-Xgtzrdugf 0.6 Beta Globulins 0.8 Gamma Globulins 1.1 Random Vancomycin ROGELIO M-Henry Not observed Blood Type A POSITIVE Antibody Screen Negative Crossmatch See Detail 06/12/16 06/12/16 06/12/16 14:20 20:10 20:52 WBC RBC Hgb Hct MCV MCHC RDW Plt Count MPV Neutrophils % Lymphocytes % Monocytes % Eosinophils % Basophils % Plasma Free Hgb Puncture Site ABG pH ABG pCO2 at Pt Temp ABG pO2 at Pt Temp ABG HCO3 ABG O2 Sat (Measured) ABG O2 Content ABG Base Excess Frankie Test O2 Delivery Device Oxygen Flow Rate Vent Mode Vent Rate Mechanical Rate PEEP Pressure Support Vent Sodium Potassium 6.0 H 6.0 H Chloride Carbon Dioxide Anion Gap BUN Creatinine POC Glucometer [id number] Random Glucose Serum Osmolality Calcium Prot Electrophoresis Serum Total Protein Albumin Globulin Albumin/Globulin Ratio Ceprf-2-Yklxhoglv Byewv-4-Vlcnnxrli Beta Globulins Gamma Globulins Random Vancomycin ROGELIO M-Henry Blood Type Antibody Screen Crossmatch 06/13/16 06/13/16 06/13/16 05:15 05:15 05:15 WBC 11.1 H RBC 2.88 L Hgb 8.4 L Hct 25.3 L MCV 87.7 MCHC 33.3 RDW 17.0 H Plt Count 159 D MPV 8.5 Neutrophils % 88.1 H Lymphocytes % 1.8 L Monocytes % 9.6 Eosinophils % 0.3 Basophils % 0.2 Plasma Free Hgb Puncture Site ABG pH ABG pCO2 at Pt Temp ABG pO2 at Pt Temp ABG HCO3 ABG O2 Sat (Measured) ABG O2 Content ABG Base Excess Frankie Test O2 Delivery Device Oxygen Flow Rate Vent Mode Vent Rate Mechanical Rate PEEP Pressure Support Vent Sodium 126 L Potassium 6.0 H Chloride 95 L Carbon Dioxide 18 L Anion Gap 13 BUN 113 H* Creatinine 4.2 H POC Glucometer Random Glucose 75 Serum Osmolality 292 Calcium 7.8 L Prot Electrophoresis Serum Total Protein Albumin Globulin Albumin/Globulin Ratio Qmgdl-8-Nwfgxfnmg Vyghj-1-Xklrzyuhq Beta Globulins Gamma Globulins Random Vancomycin 19.995 ROGELIO M-Henry Blood Type Antibody Screen Crossmatch 06/13/16 06/13/16 05:50 07:10 WBC RBC Hgb Hct MCV MCHC RDW Plt Count MPV Neutrophils % Lymphocytes % Monocytes % Eosinophils % Basophils % Plasma Free Hgb Puncture Site Right radial ABG pH 7.32 L ABG pCO2 at Pt Temp 27.7 L ABG pO2 at Pt Temp 141.0 H D ABG HCO3 14.0 L* ABG O2 Sat (Measured) 99.5 H ABG O2 Content 11.6 L ABG Base Excess -10.7 L* Frankie Test Positive O2 Delivery Device Bipap Oxygen Flow Rate 35% Vent Mode S/t Vent Rate 16 Mechanical Rate Bipap PEEP 0.0 Pressure Support Vent 12/6 Sodium Potassium Chloride Carbon Dioxide Anion Gap BUN Creatinine POC Glucometer [phone] Random Glucose Serum Osmolality Calcium Prot Electrophoresis Serum Total Protein Albumin Globulin Albumin/Globulin Ratio Ofgvw-6-Daexmjvvr Fdojh-4-Ruxjiedcv Beta Globulins Gamma Globulins Random Vancomycin ROGELIO M-Henry Blood Type Antibody Screen Crossmatch Active Medications Generic Name Dose Route Start Last Admin Trade Name Freq PRN Reason Stop Dose Admin Albuterol Sulfate 1 amp 06/10/16 04:14 Ventolin 0.083% Nebulizer Soln - NEB Q4H PRN SHORT OF BREATH/WHEEZING Albuterol/Ipratropium 1 amp 06/10/16 06:00 06/13/16 06:15 Duoneb - NEB 1 amp TIDR [facility] Administration Brimonidine Tartrate 1 drop 06/10/16 10:00 06/12/16 21:07 Alphagan 0.2% - OU 1 drop BID [facility] Administration Furosemide 80 mg 06/13/16 22:00 Lasix Injection - IVPUSH BID@1000,2200 [facility] Heparin Sodium (Porcine) 5,000 unit 06/10/16 22:00 06/13/16 06:06 Heparin - SQ 5,000 unit TID [facility] Administration Norepinephrine Bitartrate 8, 500 mls @ 18.75 mls/hr 06/10/16 04:00 06/12/16 20: 00 000 mcg/ Dextrose IV 15 mls/hr TITR [facility] Administration Protocol 5 MCG/MIN Azithromycin 250 mg/ Dextrose 250 mls @ 250 mls/hr 06/10/16 22:00 06/12/16 21: 04 IVPB 250 mls/hr DAILY@2200 [facility] Administration Pantoprazole Sodium 100 mls @ 200 mls/hr 06/10/16 06:00 06/13/16 06:06 Protonix 40mg Ivpb (Pre-Docked) IVPB 200 mls/hr BID@0600,1800 [facility] Administration Meropenem 250 mg/ Dextrose 100 mls @ 400 mls/hr 06/10/16 14:00 06/12/16 21:00 IVPB 400 mls/hr BID [facility] Administration Ascorbic Acid 1,000 mg/ Sodium 102 mls @ 102 mls/hr 06/13/16 20:00 Chloride IVPB 06/17/16 08:59 Q6H [facility] Insulin Aspart 1 vial 06/10/16 16:30 06/13/16 06:06 Novolog Vial Sliding Scale - SQ Not Given ACHS [facility] Protocol Levothyroxine Sodium 25 mcg 06/10/16 07:00 06/13/16 06:20 Synthroid Injection - IVPUSH 25 mcg AM [facility] Administration Sodium Bicarbonate 650 mg 06/12/16 22:00 06/12/16 21:04 Sodium Bicarbonate - PO Not Given BID [facility] Thiamine HCl 200 mg 06/13/16 14:00 Vitamin B1 Injection - IVPB 06/17/16 13:59 Q12H [facility] ASSESSMENT/PLAN: 06/10/16 04:30 Shoulder - Left Gram Stain - Final 06/10/16 04:30 Shoulder - Left Wound Culture - Preliminary Mr S Aureus Staphylococcus Coagulase Neg Yeast Like Organism 06/09/16 23:00 Blood - Peripheral Venous Blood Culture - Preliminary NO GROWTH OBTAINED AFTER 48 HOURS, INCUBATION TO CONTINUE FOR 3 DAYS. 06/09/16 23:00 Blood - Peripheral Venous Blood Culture - Preliminary NO GROWTH OBTAINED AFTER 48 HOURS, INCUBATION TO CONTINUE FOR 3 DAYS. ASSESSMENT/PLAN: shock secondary to sepsis secondary to multiple ulcers continue IV antibiotics as per id, meropenem and vanco taper norepi. on 2 monitor vitals id consult appreciated follow abg in morning use BIPAP in night. monitor on venti mask in day. Patient has low ef with global hypokinesia. May need inotropes if haemodynamic worsen started on puree diet, take aspiration precaution. vascular surgery consult for b/l lower limb ulcer. on IV vitamin c and thiamin hyponatremia isotonic monitor sodium increas 0.5 to 1 meq/hr not more than 12 meq in 24 hour patient drowsy could be due to metabolic encephalopathy abdiaziz on ckd avoid nephrotoxic drugs avoid iv fluid nephrology consult appreciated started on lasix 80 mg bid Hyperkalemia got insulin 10 u with d 50 got kaxylate 30,mg po got calcium gluconate albuterol neb repeat k at 2pm lactic acidosis improved hypothermia on hector hugger h/o cad, A flutter, chf, global hypokinesia alaquis on hold due to anemia, follow stool for occult cardiology on case last echo on 06/10 ef 28 and global hypokinesia anemia received 3 unit pc follow hb follow haemoglobin follow stool for occult blood h/o copd not active on duoneb DM on sliding scale follow bgm h/o hypothyroid on synthyroid fluid ; avoid fluid electrolyte ; repeat in am nutrition ; puree diet. dispo : admit in icu Visit type - Emergency Visit Emergency Visit: Yes ED Registration Date: 06/10/16 Care time: The patient presented to the Emergency Department on the above date and was hospitalized for further evaluation of their emergent condition. - New Patient This patient is new to me today: No - Critical Care Critical Care patient: Yes Total Critical Care Time (in minutes): 45 Critical Care Statement: The care of this patient involved high complexity decision making to prevent further life threatening deterioration of the patient 's condition and/or to evalute & treat vital organ system(s) failure or risk of failure.
[2016-06-13] MEDS: THIAMINE HCL 200 MG/2 ML VIAL IVPB SCH (14:40)
--- NOTE | 2016-06-13 15:52 | PN ---
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, Physician Chief Complaint: 02 SUPPORT, MASK 50% DISCUSSED WITH FAMILY NIECE ILENE AND BROTHER MARCIO - Current Medication List Current Medications: Active Medications Albuterol Sulfate (Ventolin 0.083% Nebulizer Soln -) 1 amp NEB Q4H PRN PRN Reason: SHORT OF BREATH/WHEEZING Albuterol/Ipratropium (Duoneb -) 1 amp NEB TIDR [facility] Last Admin: 06/13/16 14:15 Dose: 1 amp Brimonidine Tartrate (Alphagan 0.2% -) 1 drop OU BID [facility] Last Admin: 06/12/16 21:07 Dose: 1 drop Furosemide (Lasix Injection -) 80 mg IVPUSH BID@1000,2200 [facility] Heparin Sodium (Porcine) (Heparin -) 5,000 unit SQ TID [facility] Last Admin: 06/13/16 06:06 Dose: 5,000 unit Norepinephrine Bitartrate 8, (000 mcg/ Dextrose) 500 mls @ 18.75 mls/hr IV TITR [facility]; 5 MCG/MIN PRN Reason: Protocol Last Admin: 06/12/16 20:00 Dose: 15 mls/hr Azithromycin 250 mg/ Dextrose 250 mls @ 250 mls/hr IVPB DAILY@2200 [facility] Last Admin: 06/12/16 21:04 Dose: 250 mls/hr Pantoprazole Sodium (Protonix 40mg Ivpb (Pre-Docked)) 100 mls @ 200 mls/hr IVPB BID@0600,1800 [facility] Last Admin: 06/13/16 06:06 Dose: 200 mls/hr Meropenem 250 mg/ Dextrose 100 mls @ 400 mls/hr IVPB BID [facility] Last Admin: 06/12/16 21:00 Dose: 400 mls/hr Ascorbic Acid 1,000 mg/ Sodium (Chloride) 102 mls @ 102 mls/hr IVPB Q6H [facility] Stop: 06/17/16 08:59 Insulin Aspart (Novolog Vial Sliding Scale -) 1 vial SQ ACHS [facility] PRN Reason: Protocol Last Admin: 06/13/16 06:06 Dose: Not Given Levothyroxine Sodium (Synthroid Injection -) 25 mcg IVPUSH AM [facility] Last Admin: 06/13/16 06:20 Dose: 25 mcg Sodium Bicarbonate (Sodium Bicarbonate -) 650 mg PO BID [facility] Last Admin: 06/12/16 21:04 Dose: Not Given Thiamine HCl (Vitamin B1 Injection -) 200 mg IVPB Q12H [facility] Stop: 06/17/16 13:59 - Objective Vital Signs: Vital Signs Temperature 95.3 F L 06/13/16 14:00 Pulse Rate 80 06/13/16 14:00 Respiratory Rate 12 06/13/16 14:00 Blood Pressure 92/67 06/13/16 14:00 O2 Sat by Pulse Oximetry (%) 97 06/13/16 10:35 Constitutional: Yes: Moderate Distress Eyes: Yes: WNL HENT: Yes: WNL Neck: Yes: WNL Cardiovascular: Yes: Pulse Irregular Respiratory: Yes: On Venti-Mask, Poor Air Entry Gastrointestinal: Yes: WNL Musculoskeletal: Yes: Muscle Weakness Extremities: Yes: WNL Edema: Yes Edema: LLE: 2+, RLE: 2+ Integumentary: Yes: Pressure Ulcer, Rash, Venous Stasis Changes Wound/Incision: Yes: Reddened Neurological: Yes: Pre-Existing Deficit, Weakness ...Motor Strength: LLE, RLE Psychiatric: Yes: Other Labs: CBC, BMP 06/13/16 05:15 06/13/16 05:15 INR, PTT INR 1.85 (0.82-1.09) H 06/11/16 05:15 Fibrinogen 405.0 mg/dL (238-498) 06/10/16 04:45 Problem List - Problems (1) CKD (chronic kidney disease) Code(s): N18.9 - CHRONIC KIDNEY DISEASE, UNSPECIFIED (2) Hyponatremia Code(s): E87.1 - HYPO-OSMOLALITY AND HYPONATREMIA (3) Hypotension Code(s): I95.9 - HYPOTENSION, UNSPECIFIED Qualifiers: Hypotension type: other hypotension type Qualified Code(s): I95.89 - Other hypotension (4) Lung consolidation Code(s): J18.1 - LOBAR PNEUMONIA, UNSPECIFIED ORGANISM (5) Anemia Code(s): D64.9 - ANEMIA, UNSPECIFIED Qualifiers: Other causes of anemia: chronic disease, kidney (6) Atrial flutter Code(s): I48.92 - UNSPECIFIED ATRIAL FLUTTER (7) Bacteremia Code(s): R78.81 - BACTEREMIA (8) COPD (chronic obstructive pulmonary disease) Code(s): J44.9 - CHRONIC OBSTRUCTIVE PULMONARY DISEASE, UNSPECIFIED (9) DMII (diabetes mellitus, type 2) Code(s): E11.9 - TYPE 2 DIABETES MELLITUS WITHOUT COMPLICATIONS Qualifiers: Diabetes mellitus complication detail: with other kidney complication (10) Dyspnea Code(s): R06.00 - DYSPNEA, UNSPECIFIED Qualifiers: Dyspnea type: shortness of breath Qualified Code(s): R06.02 - Shortness of breath (11) Pressure ulcer of lower extremity, stage 1 Code(s): L89.891 - PRESSURE ULCER OF OTHER SITE, STAGE 1 (12) Sepsis Code(s): A41.9 - SEPSIS, UNSPECIFIED ORGANISM Qualifiers: Sepsis type: sepsis due to unspecified organism Qualified Code(s): A41.9 - Sepsis, unspecified organism (13) Weakness of both lower limbs Code(s): M62.81 - MUSCLE WEAKNESS (GENERALIZED) (14) Wound of left shoulder Code(s): S41.002A - UNSPECIFIED OPEN WOUND OF LEFT SHOULDER, INITIAL ENCOUNTER Qualifiers: Encounter type: subsequent encounter Qualified Code(s): S41.002D - Unspecified open wound of left shoulder, subsequent encounter Assessment/Plan SEPSIS ON ABX RENAL FAILURE NEPHROLOGY FOLLOW UP DISCUSSED WITH FAMILY BEDSIDE FOR OVER 30 MINUTES VERY CRITICAL AT THIS TIME SURGERY EVAL FOR LEG EDEMA AND LEFT BACK WOUND DVT PROPHYLAXIS
--- NOTE | 2016-06-13 15:53 | PN ---
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 (short form) - Note 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: Vascular Surgery Pt seen and examined at bedside. Dressing changed. Bilaterally lower ext venous stasis ulcers. Slough on ulcers. santyl daily to ulcers. Please provide compression with dyllan from foot to knees. Carlyle Batres DO
--- NOTE | 2016-06-13 17:36 | PN ---
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, Physician History of Present Illness: Pt seen and examined at bedside. He is more awake and alert than he was yesterday. - Current Medication List Current Medications: Active Medications Albuterol Sulfate (Ventolin 0.083% Nebulizer Soln -) 1 amp NEB Q4H PRN PRN Reason: SHORT OF BREATH/WHEEZING Albuterol/Ipratropium (Duoneb -) 1 amp NEB [facility]IDR [facility] Last Admin: 06/13/16 14:15 Dose: 1 amp Brimonidine Tartrate (Alphagan 0.2% -) 1 drop OU BID [facility] Last Admin: 06/13/16 10:00 Dose: 1 drop Collagenase (Santyl -) 1 applic TP BID [facility] Furosemide (Lasix Injection -) 80 mg IVPUSH BID@1000,2200 [facility] Heparin Sodium (Porcine) (Heparin -) 5,000 unit SQ TID [facility] Last Admin: 06/13/16 14:00 Dose: 5,000 unit Norepinephrine Bitartrate 8, (000 mcg/ Dextrose) 500 mls @ 18.75 mls/hr IV TITR [facility]; 5 MCG/MIN PRN Reason: Protocol Last Admin: 06/12/16 20:00 Dose: 15 mls/hr Azithromycin 250 mg/ Dextrose 250 mls @ 250 mls/hr IVPB DAILY@2200 [facility] Last Admin: 06/12/16 21:04 Dose: 250 mls/hr Pantoprazole Sodium (Protonix 40mg Ivpb (Pre-Docked)) 100 mls @ 200 mls/hr IVPB BID@0600,1800 [facility] Last Admin: 06/13/16 06:06 Dose: 200 mls/hr Meropenem 250 mg/ Dextrose 100 mls @ 400 mls/hr IVPB BID [facility] Last Admin: 06/13/16 10:00 Dose: 400 mls/hr Ascorbic Acid 1,000 mg/ Sodium (Chloride) 102 mls @ 102 mls/hr IVPB Q6H [facility] Stop: 06/17/16 08:59 Insulin Aspart (Novolog Vial Sliding Scale -) 1 vial SQ ACHS [facility] PRN Reason: Protocol Last Admin: 06/13/16 11:00 Dose: Not Given Levothyroxine Sodium (Synthroid Injection -) 25 mcg IVPUSH AM [facility] Last Admin: 06/13/16 06:20 Dose: 25 mcg Sodium Bicarbonate (Sodium Bicarbonate -) 650 mg PO BID [facility] Last Admin: 06/13/16 10:00 Dose: Not Given Thiamine HCl (Vitamin B1 Injection -) 200 mg IVPB Q12H [facility] Stop: 06/17/16 13:59 Last Admin: 06/13/16 14:40 Dose: 200 mg - Objective Vital Signs: Vital Signs Temperature 95.3 F L 06/13/16 14:00 Pulse Rate 80 06/13/16 14:00 Respiratory Rate 12 06/13/16 14:00 Blood Pressure 92/67 06/13/16 14:00 O2 Sat by Pulse Oximetry (%) 99 06/13/16 16:28 Constitutional: Yes: Calm Eyes: Yes: Conjunctiva Clear HENT: Yes: Atraumatic Neck: Yes: Supple Cardiovascular: Yes: S1, S2 Respiratory: Yes: On Venti-Mask Gastrointestinal: Yes: Soft, Abdomen, Obese Genitourinary: Yes: López Present Musculoskeletal: Yes: Muscle Weakness Edema: Yes Edema: LLE: 3+, RLE: 3+ Neurological: Yes: Oriented Psychiatric: Yes: Oriented Labs: CBC, BMP 06/13/16 05:15 06/13/16 15:30 INR, PTT INR 1.85 (0.82-1.09) H 06/11/16 05:15 Fibrinogen 405.0 mg/dL (238-498) 06/10/16 04:45 - ....Imaging Chest X-ray: Report Reviewed Problem List - Problems (1) Acute hyperkalemia Code(s): E87.5 - HYPERKALEMIA (2) Hyponatremia Code(s): E87.1 - HYPO-OSMOLALITY AND HYPONATREMIA (3) Hypotension Code(s): I95.9 - HYPOTENSION, UNSPECIFIED Qualifiers: Hypotension type: other hypotension type Qualified Code(s): I95.89 - Other hypotension (4) Acute on chronic renal failure Code(s): N17.9 - ACUTE KIDNEY FAILURE, UNSPECIFIED N18.9 - CHRONIC KIDNEY DISEASE, UNSPECIFIED (5) Anemia Code(s): D64.9 - ANEMIA, UNSPECIFIED Qualifiers: Other causes of anemia: chronic disease, kidney (6) COPD (chronic obstructive pulmonary disease) Code(s): J44.9 - CHRONIC OBSTRUCTIVE PULMONARY DISEASE, UNSPECIFIED (7) Congestive heart failure (CHF) Code(s): I50.9 - HEART FAILURE, UNSPECIFIED Qualifiers: Congestive heart failure type: systolic Congestive heart failure chronicity: chronic Qualified Code(s): I50.22 - Chronic systolic (congestive ) heart failure (8) DMII (diabetes mellitus, type 2) Code(s): E11.9 - TYPE 2 DIABETES MELLITUS WITHOUT COMPLICATIONS Qualifiers: Diabetes mellitus complication detail: with other kidney complication (9) CKD (chronic kidney disease) Code(s): N18.9 - CHRONIC KIDNEY DISEASE, UNSPECIFIED Assessment/Plan Current Medications Generic Name Dose Route Start Last Admin Trade Name Freq PRN Reason Stop Dose Admin Albuterol Sulfate 1 amp 06/10/16 04:14 Ventolin 0.083% Nebulizer Soln - NEB Q4H PRN SHORT OF BREATH/WHEEZING Albuterol/Ipratropium 1 amp 06/10/16 06:00 06/13/16 14:15 Duoneb - NEB 1 amp TIDR [facility] Administration Brimonidine Tartrate 1 drop 06/10/16 10:00 06/13/16 10:00 Alphagan 0.2% - OU 1 drop BID [facility] Administration Collagenase 1 applic 06/13/16 22:00 Santyl - TP BID [facility] Furosemide 80 mg 06/13/16 22:00 Lasix Injection - IVPUSH BID@1000,2200 [facility] Heparin Sodium (Porcine) 5,000 unit 06/10/16 22:00 06/13/16 14:00 Heparin - SQ 5,000 unit TID [facility] Administration Norepinephrine Bitartrate 8, 500 mls @ 18.75 mls/hr 06/10/16 04:00 06/12/16 20: 00 000 mcg/ Dextrose IV 15 mls/hr TITR [facility] Administration Protocol 5 MCG/MIN Azithromycin 250 mg/ Dextrose 250 mls @ 250 mls/hr 06/10/16 22:00 06/12/16 21: 04 IVPB 250 mls/hr DAILY@2200 [facility] Administration Pantoprazole Sodium 100 mls @ 200 mls/hr 06/10/16 06:00 06/13/16 06:06 Protonix 40mg Ivpb (Pre-Docked) IVPB 200 mls/hr BID@0600,1800 [facility] Administration Meropenem 250 mg/ Dextrose 100 mls @ 400 mls/hr 06/10/16 14:00 06/13/16 10:00 IVPB 400 mls/hr BID [facility] Administration Ascorbic Acid 1,000 mg/ Sodium 102 mls @ 102 mls/hr 06/13/16 20:00 Chloride IVPB 06/17/16 08:59 Q6H [facility] Insulin Aspart 1 vial 06/10/16 16:30 06/13/16 11:00 Novolog Vial Sliding Scale - SQ Not Given ACHS [facility] Protocol Levothyroxine Sodium 25 mcg 06/10/16 07:00 06/13/16 06:20 Synthroid Injection - IVPUSH 25 mcg AM [facility] Administration Sodium Bicarbonate 650 mg 06/12/16 22:00 06/13/16 10:00 Sodium Bicarbonate - PO Not Given BID [facility] Thiamine HCl 200 mg 06/13/16 14:00 06/13/16 14:40 Vitamin B1 Injection - IVPB 06/17/16 13:59 200 mg Q12H [facility] Administration Laboratory Tests 06/13/16 05:15 Serum Osmolality 292 Impression 1. CASE on CKD 2. sepsis with shock 3. cellulitis/abscess of back 4. CHF acute 5. hypothyroidism 6. hyperlipidemia 7. COPD 8. htn 9. a-fib 10. hyponatremia - isoosmolar Plan - lasix 80 mg IV BID - pt responded to the first dose of lasx today - if there is no improvement by tomorrow may have to start HD. Discussed HD with pt and he wound like to avoid it if possible - potassium treated medically and is starting to improve - follow up spep - check lipids - cont bicarb - cont pressors to a map of 65 - will follow Dr Martinez
[2016-06-13] MEDS: ASCORBIC ACID IVPB SCH (22:41)
[2016-06-13] MEDS: SODIUM CHLORIDE IVPB SCH (22:41)
[2016-06-13] MEDS: FUROSEMIDE 40 MG/4 ML INJECTABLE VIAL IVPUSH SCH (22:44)
[2016-06-13] MEDS: COLLAGENASE CLOSTRIDIUM HIST. 30 GRAMS TUBE TP SCH (22:48)
[2016-06-13] MEDS: AZITHROMYCIN IVPB 250 MG in DEXTROSE 5%-WATER - 250 ML IVPB SCH (22:49)
[2016-06-14] MEDS: INSULIN SLIDING SCALE (NOVOLOG) 1 VIAL SQ SCH ×4 (00:32→18:45)
[2016-06-14] MEDS: SODIUM CHLORIDE IVPB SCH ×4 (01:48→22:00)
[2016-06-14] MEDS: ASCORBIC ACID IVPB SCH ×4 (01:48→22:00)
[2016-06-14] MEDS ORDERED: dilTIAZem HCL 125 MG/25 ML - 25 ML VIAL ONE (01:51)
[2016-06-14] MEDS: THIAMINE HCL 200 MG/2 ML VIAL IVPB SCH ×2 (01:54→16:35)
[2016-06-14 05:56] LABS: MCH 28.7 pg (25.7-33.7); MCHC 32.4 g/dl (32.0-35.9); MEAN CELL VOLUME 88.7 fl (80-96); MEAN PLT VOLUME 8.7 fl (7.5-11.1); PLATELET COUNT 149 K/MM3 (134-434); RDW 17.5 % (11.9-15.9); WHITE BLOOD COUNT 12.8 K/mm3 (4.0-10.0)
[2016-06-14] MEDS: ALBUTEROL SO4 2.5/IPRATROPIUM 0.5 INH SOL 3 ML VIAL.NEB. NEB SCH ×3 (05:56→21:48)
[2016-06-14 06:26] LABS: CHOLESTEROL 87 mg/dL (50-200); LDL CHOLESTEROL (ONLY SJRH) 37 mg/dL (5-100)
[2016-06-14 06:29] LABS: CALCIUM 7.7 mg/dL (8.5-10.1); CREATININE 4.3 mg/dL (0.7-1.3)
[2016-06-14] MEDS ORDERED: PT OWN MED DRAWER 7, Y5N ONE ×4 (07:24→23:24)
[2016-06-14] MEDS: PANTOPRAZOLE SODIUM 100 ML IVPB SCH ×2 (07:29→18:28)
[2016-06-14] MEDS: LEVOTHYROXINE SODIUM 100 MCG VIAL IVPUSH SCH (07:29)
[2016-06-14 07:39] LABS: ALLENS TEST POSITIVE; ART PUNCT SITE RIGHT RADIAL; ARTERIAL BLD GAS O2 SATURATION 98.8 % (90-98.9); ARTERIAL BLOOD GAS BASE EXCESS -10.3 meq/l (-2-2); ARTERIAL BLOOD GAS HCO3 14.9 meq/L (22-26); LPM/O2% 50%; MECH. VENT. BIPAP; PT. ON O2? YES; TYPE OF O2 BIPAP; VT/PRESS IPAP 12/EPAP 6
[2016-06-14 07:40] LABS: ARTERIAL BLOOD GAS pH 7.29 (7.35-7.45); VENT RATE 16
[2016-06-14] MEDS: NOREPINEPHRINE BITARTRATE 8,000 MCG in DEXTROSE 5%-WATER - 492 ML IV SCH (08:29)
[2016-06-14] MEDS: BRIMONIDINE TARTRATE 0.2% OPHTHALMIC 5 ML BOTTLE OU SCH (09:04)
[2016-06-14] MEDS: FUROSEMIDE 40 MG/4 ML INJECTABLE VIAL IVPUSH SCH (09:05)
[2016-06-14] MEDS: SODIUM BICARBONATE 650 MG TABLET PO SCH (09:06)
[2016-06-14] MEDS: COLLAGENASE CLOSTRIDIUM HIST. 30 GRAMS TUBE TP SCH (09:06)
--- NOTE | 2016-06-14 09:13 | PN ---
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 (short form) - Note 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: alert, on ventimask, bipap overnight levophed being tapered Vital Signs Period Temp Pulse Resp BP Sys/Hubbard Pulse Ox Last 24 Hr 93.3 F-98 F 68-88 12-26 82-96/55-73 97-99 cor-rrr lungs decreased bs at bases abd soft,nt ext dressings intact shoulder wound clean cunningham CBC, BMP 06/14/16 05:05 06/14/16 05:05 cxray rll infiltrate Microbiology 06/09/16 23:00 Blood - Peripheral Venous Blood Culture - Preliminary NO GROWTH OBTAINED AFTER 96 HOURS, INCUBATION TO CONTINUE FOR 1 DAYS. 06/09/16 23:00 Blood - Peripheral Venous Blood Culture - Preliminary NO GROWTH OBTAINED AFTER 96 HOURS, INCUBATION TO CONTINUE FOR 1 DAYS. Current Medications Albuterol Sulfate (Ventolin 0.083% Nebulizer Soln -) 1 amp NEB Q4H PRN PRN Reason: SHORT OF BREATH/WHEEZING Albuterol/Ipratropium (Duoneb -) 1 amp NEB TIDR [facility] Last Admin: 06/14/16 05:56 Dose: 1 amp Brimonidine Tartrate (Alphagan 0.2% -) 1 drop OU BID [facility] Last Admin: 06/13/16 22:44 Dose: 1 drop Collagenase (Santyl -) 1 applic TP BID [facility] Last Admin: 06/13/16 22:48 Dose: 1 applic Furosemide (Lasix Injection -) 80 mg IVPUSH BID@1000,2200 [facility] Last Admin: 06/13/16 22:44 Dose: 80 mg Norepinephrine Bitartrate 8, (000 mcg/ Dextrose) 500 mls @ 18.75 mls/hr IV TITR [facility]; 5 MCG/MIN PRN Reason: Protocol Last Admin: 06/14/16 08:29 Dose: 15 mls/hr Azithromycin 250 mg/ Dextrose 250 mls @ 250 mls/hr IVPB DAILY@2200 [facility] Last Admin: 06/13/16 22:49 Dose: 250 mls/hr Pantoprazole Sodium (Protonix 40mg Ivpb (Pre-Docked)) 100 mls @ 200 mls/hr IVPB BID@0600,1800 [facility] Last Admin: 06/14/16 07:29 Dose: 200 mls/hr Meropenem 250 mg/ Dextrose 100 mls @ 400 mls/hr IVPB BID [facility] Last Admin: 06/13/16 23:00 Dose: 400 mls/hr Ascorbic Acid 1,000 mg/ Sodium (Chloride) 102 mls @ 102 mls/hr IVPB Q6H [facility] Stop: 06/17/16 08:59 Last Admin: 06/14/16 01:48 Dose: 102 mls/hr Insulin Aspart (Novolog Vial Sliding Scale -) 1 vial SQ ACHS [facility] PRN Reason: Protocol Last Admin: 06/14/16 07:29 Dose: Not Given Levothyroxine Sodium (Synthroid Injection -) 25 mcg IVPUSH AM [facility] Last Admin: 06/14/16 07:29 Dose: 25 mcg Sodium Bicarbonate (Sodium Bicarbonate -) 650 mg PO BID [facility] Last Admin: 06/13/16 22:49 Dose: 650 mg Thiamine HCl (Vitamin B1 Injection -) 200 mg IVPB Q12H [facility] Stop: 06/17/16 13:59 Last Admin: 06/14/16 01:54 Dose: 200 mg a/p sepsis RLL pneumonia (HAP) afib cardiomyopathy with severely reduced EF continue meropenem/zithromax pressors being tapered suspect cardiomyopathy is playing a significant role in his hemodynamics history of resistant organisms
--- NOTE | 2016-06-14 09:54 | PN ---
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 (short form) - Note 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: Patient seen and examined in the ICU. NIPPV overnight. Remains on 4 meq NE for hemodynamic support. Drowsy but arousable. Intake & Output 06/11/16 06/12/16 06/13/16 06/14/16 23:59 23:59 23:59 23:59 Intake Total 2022 1620 1309 380 Output Total 756 869 6602 400 Balance 1398 745 9 -20 Weight 262 lb 7.355 oz 244 lb 8 oz 237 lb 7.005 oz 237 lb 7.005 oz Last Vital Signs Temp Pulse Resp BP Pulse Ox 97.2 F L 70 20 95/73 98 06/14/16 05:45 06/14/16 08:29 06/14/16 05:45 06/14/16 08:29 06/13/16 21:00 Active Medications Albuterol Sulfate (Ventolin 0.083% Nebulizer Soln -) 1 amp NEB Q4H PRN PRN Reason: SHORT OF BREATH/WHEEZING Albuterol/Ipratropium (Duoneb -) 1 amp NEB TIDR [facility] Last Admin: 06/14/16 05:56 Dose: 1 amp Brimonidine Tartrate (Alphagan 0.2% -) 1 drop OU BID [facility] Last Admin: 06/14/16 09:04 Dose: 1 drop Collagenase (Santyl -) 1 applic TP BID [facility] Last Admin: 06/14/16 09:06 Dose: 1 applic Furosemide (Lasix Injection -) 80 mg IVPUSH BID@1000,2200 [facility] Last Admin: 06/14/16 09:05 Dose: 80 mg Norepinephrine Bitartrate 8, (000 mcg/ Dextrose) 500 mls @ 18.75 mls/hr IV TITR [facility]; 5 MCG/MIN PRN Reason: Protocol Last Admin: 06/14/16 08:29 Dose: 15 mls/hr Azithromycin 250 mg/ Dextrose 250 mls @ 250 mls/hr IVPB DAILY@2200 [facility] Last Admin: 06/13/16 22:49 Dose: 250 mls/hr Pantoprazole Sodium (Protonix 40mg Ivpb (Pre-Docked)) 100 mls @ 200 mls/hr IVPB BID@0600,1800 [facility] Last Admin: 06/14/16 07:29 Dose: 200 mls/hr Meropenem 250 mg/ Dextrose 100 mls @ 400 mls/hr IVPB BID [facility] Last Admin: 06/13/16 23:00 Dose: 400 mls/hr Ascorbic Acid 1,000 mg/ Sodium (Chloride) 102 mls @ 102 mls/hr IVPB Q6H [facility] Stop: 06/17/16 08:59 Last Admin: 06/14/16 09:37 Dose: 102 mls/hr Insulin Aspart (Novolog Vial Sliding Scale -) 1 vial SQ ACHS [facility] PRN Reason: Protocol Last Admin: 06/14/16 07:29 Dose: Not Given Levothyroxine Sodium (Synthroid Injection -) 25 mcg IVPUSH AM [facility] Last Admin: 06/14/16 07:29 Dose: 25 mcg Sodium Bicarbonate (Sodium Bicarbonate -) 650 mg PO BID [facility] Last Admin: 06/14/16 09:06 Dose: 650 mg Thiamine HCl (Vitamin B1 Injection -) 200 mg IVPB Q12H [facility] Stop: 06/17/16 13:59 Last Admin: 06/14/16 01:54 Dose: 200 mg Gen: Drowsy but arousable on NIPPV Heart: RRR Lung: scattered rhonchi Abd: soft, nontender Ext: + edema, dressings serous Laboratory Results - last 24 hr 06/10/16 06/10/16 06/13/16 04:45 14:00 05:15 WBC RBC Hgb Hct MCV MCHC RDW Plt Count MPV Plasma Free Hgb 5.5 H Puncture Site ABG pH ABG pCO2 at Pt Temp ABG pO2 at Pt Temp ABG HCO3 ABG O2 Sat (Measured) ABG O2 Content ABG Base Excess Frankie Test O2 Delivery Device Oxygen Flow Rate Vent Mode Vent Rate Mechanical Rate PEEP Pressure Support Vent Sodium Potassium Chloride Carbon Dioxide Anion Gap BUN Creatinine POC Glucometer Random Glucose Serum Osmolality 292 Calcium Triglycerides Cholesterol Total LDL Cholesterol HDL Cholesterol Blood Type A POSITIVE Antibody Screen Negative Crossmatch See Detail 06/13/16 06/13/16 06/13/16 13:07 15:30 17:44 WBC RBC Hgb Hct MCV MCHC RDW Plt Count MPV Plasma Free Hgb Puncture Site ABG pH ABG pCO2 at Pt Temp ABG pO2 at Pt Temp ABG HCO3 ABG O2 Sat (Measured) ABG O2 Content ABG Base Excess Frankie Test O2 Delivery Device Oxygen Flow Rate Vent Mode Vent Rate Mechanical Rate PEEP Pressure Support Vent Sodium Potassium 5.8 H Chloride Carbon Dioxide Anion Gap BUN Creatinine POC Glucometer 87.49117 104.17879 Random Glucose Serum Osmolality Calcium Triglycerides Cholesterol Total LDL Cholesterol HDL Cholesterol Blood Type Antibody Screen Crossmatch 06/13/16 06/14/16 06/14/16 23:29 05:05 05:05 WBC 12.8 H RBC 2.84 L Hgb 8.2 L Hct 25.2 L MCV 88.7 MCHC 32.4 RDW 17.5 H Plt Count 149 MPV 8.7 Plasma Free Hgb Puncture Site ABG pH ABG pCO2 at Pt Temp ABG pO2 at Pt Temp ABG HCO3 ABG O2 Sat (Measured) ABG O2 Content ABG Base Excess Frankie Test O2 Delivery Device Oxygen Flow Rate Vent Mode Vent Rate Mechanical Rate PEEP Pressure Support Vent Sodium 128 L Potassium 5.5 H Chloride 96 L Carbon Dioxide 18 L Anion Gap 14 BUN 111 H* Creatinine 4.3 H POC Glucometer 124.68699 Random Glucose 80 Serum Osmolality Calcium 7.7 L Triglycerides Cholesterol Total LDL Cholesterol HDL Cholesterol Blood Type Antibody Screen Crossmatch 06/14/16 06/14/16 06/14/16 05:05 05:54 07:30 WBC RBC Hgb Hct MCV MCHC RDW Plt Count MPV Plasma Free Hgb Puncture Site Right radial ABG pH 7.29 L ABG pCO2 at Pt Temp 32.1 L ABG pO2 at Pt Temp 124.0 H ABG HCO3 14.9 L* ABG O2 Sat (Measured) 98.8 ABG O2 Content 11.0 L ABG Base Excess -10.3 L* Frankie Test Positive O2 Delivery Device Bipap Oxygen Flow Rate 50% Vent Mode S/t Vent Rate 16 Mechanical Rate Bipap PEEP 0.0 Pressure Support Vent Ipap 12/epap 6 Sodium Potassium Chloride Carbon Dioxide Anion Gap BUN Creatinine POC Glucometer 118.05235 Random Glucose Serum Osmolality Calcium Triglycerides 22 L D Cholesterol 87 D Total LDL Cholesterol 37 D HDL Cholesterol 54 Blood Type Antibody Screen Crossmatch ASSESSMENT AND PLAN: Back/Shoulder Cellulitis/Abscess Leg Ulcers Septic Shock Acute on Chronic Renal Failure Metabolic Acidosis Acute on Chronic LV Systolic Heart Failure Atrial Fibrillation COPD Hyponatremia - ABX per ID - Local wound care - levophed gtt to maintain MAP >65 - O2 to keep SpO2 >90% - aspiration precautions - inhaled bronchodilators - continue ICU monitoring for pressor support and tenuous respiratory status - DVT prophylaxis - Noted Lasix ordered - NIPPV support Dr Farrell CCTime 35"
--- NOTE | 2016-06-14 10:12 | PN ---
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 (short form) - Note 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: D/W primary care and Renal. Lasix drip at 5 mg / hr. Repeat K later today May need NGT If no improvement in UOP -> will readdress inotrope therapy Dr Farrell
[2016-06-14] MEDS ORDERED: FUROSEMIDE INJECTION 100 MG in SODIUM CHLORIDE 90 ML IVPB SCH ×2 (10:15→18:45)
[2016-06-14] MEDS ORDERED: FUROSEMIDE 100 MG/10 ML INJECTABLE VIAL ONE (10:25)
--- NOTE | 2016-06-14 10:31 | PN ---
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, Physician History of Present Illness: LETHARGIC IN BED WITH VM - Current Medication List Current Medications: Active Medications Albuterol Sulfate (Ventolin 0.083% Nebulizer Soln -) 1 amp NEB Q4H PRN PRN Reason: SHORT OF BREATH/WHEEZING Albuterol/Ipratropium (Duoneb -) 1 amp NEB TIDR [facility] Last Admin: 06/14/16 05:56 Dose: 1 amp Brimonidine Tartrate (Alphagan 0.2% -) 1 drop OU BID [facility] Last Admin: 06/14/16 09:04 Dose: 1 drop Collagenase (Santyl -) 1 applic TP BID [facility] Last Admin: 06/14/16 09:06 Dose: 1 applic Heparin Sodium (Porcine) (Heparin -) 5,000 unit SQ BID [facility] Norepinephrine Bitartrate 8, (000 mcg/ Dextrose) 500 mls @ 18.75 mls/hr IV TITR [facility]; 5 MCG/MIN PRN Reason: Protocol Last Admin: 06/14/16 08:29 Dose: 15 mls/hr Azithromycin 250 mg/ Dextrose 250 mls @ 250 mls/hr IVPB DAILY@2200 [facility] Last Admin: 06/13/16 22:49 Dose: 250 mls/hr Pantoprazole Sodium (Protonix 40mg Ivpb (Pre-Docked)) 100 mls @ 200 mls/hr IVPB BID@0600,1800 [facility] Last Admin: 06/14/16 07:29 Dose: 200 mls/hr Meropenem 250 mg/ Dextrose 100 mls @ 400 mls/hr IVPB BID [facility] Last Admin: 06/13/16 23:00 Dose: 400 mls/hr Ascorbic Acid 1,000 mg/ Sodium (Chloride) 102 mls @ 102 mls/hr IVPB Q6H [facility] Stop: 06/17/16 08:59 Last Admin: 06/14/16 09:37 Dose: 102 mls/hr Furosemide 100 mg/ Sodium (Chloride) 100 mls @ 5 mls/hr IVPB ASDIR [facility] Insulin Aspart (Novolog Vial Sliding Scale -) 1 vial SQ ACHS [facility] PRN Reason: Protocol Last Admin: 06/14/16 07:29 Dose: Not Given Levothyroxine Sodium (Synthroid Injection -) 25 mcg IVPUSH AM [facility] Last Admin: 06/14/16 07:29 Dose: 25 mcg Sodium Bicarbonate (Sodium Bicarbonate -) 650 mg PO BID [facility] Last Admin: 06/14/16 09:06 Dose: 650 mg Thiamine HCl (Vitamin B1 Injection -) 200 mg IVPB Q12H [facility] Stop: 06/17/16 13:59 Last Admin: 06/14/16 01:54 Dose: 200 mg - Objective Vital Signs: Vital Signs Temperature 97.2 F L 06/14/16 05:45 Pulse Rate 70 06/14/16 08:29 Respiratory Rate 20 06/14/16 05:45 Blood Pressure 95/73 06/14/16 08:29 O2 Sat by Pulse Oximetry (%) 98 06/13/16 21:00 Respiratory: Yes: Diminished, Rhonchi Gastrointestinal: Yes: Normal Bowel Sounds, Soft Edema: Yes Labs: CBC, BMP 06/14/16 05:05 06/14/16 05:05 INR, PTT INR 1.85 (0.82-1.09) H 06/11/16 05:15 Fibrinogen 405.0 mg/dL (238-498) 06/10/16 04:45 Problem List - Problems (1) Acute hyperkalemia Assessment/Plan: MONITOR ON LASIX Code(s): E87.5 - HYPERKALEMIA (2) Hypotension Assessment/Plan: ON LEVO 4 Code(s): I95.9 - HYPOTENSION, UNSPECIFIED Qualifiers: Hypotension type: other hypotension type Qualified Code(s): I95.89 - Other hypotension (3) Acute on chronic renal failure Assessment/Plan: RENAL ON BOARD--START LASIX DRIP Code(s): N17.9 - ACUTE KIDNEY FAILURE, UNSPECIFIED N18.9 - CHRONIC KIDNEY DISEASE, UNSPECIFIED (4) COPD (chronic obstructive pulmonary disease) Assessment/Plan: NEBS O2 Code(s): J44.9 - CHRONIC OBSTRUCTIVE PULMONARY DISEASE, UNSPECIFIED (5) Congestive heart failure (CHF) Assessment/Plan: LASIX DRIP MAY NEED INOTROPICS Code(s): I50.9 - HEART FAILURE, UNSPECIFIED Qualifiers: Congestive heart failure type: systolic Congestive heart failure chronicity: chronic Qualified Code(s): I50.22 - Chronic systolic (congestive ) heart failure
--- NOTE | 2016-06-14 10:34 | PN ---
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, Physician History of Present Illness: Renal f/u Pt in no distress with VM in place Levophed at 3 mcg/min UO ~ 500 cc in last 12 hours on BID Lasix - Current Medication List Current Medications: Active Medications Albuterol Sulfate (Ventolin 0.083% Nebulizer Soln -) 1 amp NEB Q4H PRN PRN Reason: SHORT OF BREATH/WHEEZING Albuterol/Ipratropium (Duoneb -) 1 amp NEB TIDR [facility] Last Admin: 06/14/16 05:56 Dose: 1 amp Brimonidine Tartrate (Alphagan 0.2% -) 1 drop OU BID [facility] Last Admin: 06/14/16 09:04 Dose: 1 drop Collagenase (Santyl -) 1 applic TP BID [facility] Last Admin: 06/14/16 09:06 Dose: 1 applic Heparin Sodium (Porcine) (Heparin -) 5,000 unit SQ BID [facility] Norepinephrine Bitartrate 8, (000 mcg/ Dextrose) 500 mls @ 18.75 mls/hr IV TITR [facility]; 5 MCG/MIN PRN Reason: Protocol Last Admin: 06/14/16 08:29 Dose: 15 mls/hr Azithromycin 250 mg/ Dextrose 250 mls @ 250 mls/hr IVPB DAILY@2200 [facility] Last Admin: 06/13/16 22:49 Dose: 250 mls/hr Pantoprazole Sodium (Protonix 40mg Ivpb (Pre-Docked)) 100 mls @ 200 mls/hr IVPB BID@0600,1800 [facility] Last Admin: 06/14/16 07:29 Dose: 200 mls/hr Meropenem 250 mg/ Dextrose 100 mls @ 400 mls/hr IVPB BID [facility] Last Admin: 06/13/16 23:00 Dose: 400 mls/hr Ascorbic Acid 1,000 mg/ Sodium (Chloride) 102 mls @ 102 mls/hr IVPB Q6H [facility] Stop: 06/17/16 08:59 Last Admin: 06/14/16 09:37 Dose: 102 mls/hr Furosemide 100 mg/ Sodium (Chloride) 100 mls @ 5 mls/hr IVPB ASDIR [facility] Insulin Aspart (Novolog Vial Sliding Scale -) 1 vial SQ ACHS [facility] PRN Reason: Protocol Last Admin: 06/14/16 07:29 Dose: Not Given Levothyroxine Sodium (Synthroid Injection -) 25 mcg IVPUSH AM [facility] Last Admin: 06/14/16 07:29 Dose: 25 mcg Sodium Bicarbonate (Sodium Bicarbonate -) 650 mg PO BID [facility] Last Admin: 06/14/16 09:06 Dose: 650 mg Thiamine HCl (Vitamin B1 Injection -) 200 mg IVPB Q12H [facility] Stop: 06/17/16 13:59 Last Admin: 06/14/16 01:54 Dose: 200 mg - Objective Vital Signs: Vital Signs Temperature 97.2 F L 06/14/16 05:45 Pulse Rate 70 06/14/16 08:29 Respiratory Rate 20 06/14/16 05:45 Blood Pressure 95/73 06/14/16 08:29 O2 Sat by Pulse Oximetry (%) 98 06/13/16 21:00 Constitutional: Yes: No Distress Cardiovascular: Yes: S1, S2, Other (Distant) Respiratory: Yes: Other (Occasional rhonchi) Gastrointestinal: Yes: Soft. No: Tenderness, Rebound Edema: Yes Neurological: Yes: Other (Lethargic but easily arousable and able to follow some commands) Labs: CBC, BMP 06/14/16 05:05 06/14/16 05:05 INR, PTT INR 1.85 (0.82-1.09) H 06/11/16 05:15 Fibrinogen 405.0 mg/dL (238-498) 06/10/16 04:45 Assessment/Plan Impression 1. CASE on CKD 2. Sepsis with shock 3. Cellulitis/abscess of back 4. HFrEF acute 5. Hypothyroidism 6. Hyperlipidemia 7. COPD 8. htn 9. a-fib 10. hyponatremia with fluid overload Plan Taper off the levophed as tolerated Change lasix to continuous drip Rpt BMP at 3 pm to check K level and if not improved will need an NGT for Kayexalate Discussed with CCM and PMD and to hold on dialysis at this time since urine output begining to prove. Will re evaluate in the am Dr Camp
--- NOTE | 2016-06-14 11:20 | PN ---
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, Physician History of Present Illness: Patient currently on lasix gtt. - Current Medication List Current Medications: Active Medications Albuterol Sulfate (Ventolin 0.083% Nebulizer Soln -) 1 amp NEB Q4H PRN PRN Reason: SHORT OF BREATH/WHEEZING Albuterol/Ipratropium (Duoneb -) 1 amp NEB TIDR [facility] Last Admin: 06/14/16 05:56 Dose: 1 amp Brimonidine Tartrate (Alphagan 0.2% -) 1 drop OU BID [facility] Last Admin: 06/14/16 09:04 Dose: 1 drop Collagenase (Santyl -) 1 applic TP BID [facility] Last Admin: 06/14/16 09:06 Dose: 1 applic Heparin Sodium (Porcine) (Heparin -) 5,000 unit SQ BID [facility] Norepinephrine Bitartrate 8, (000 mcg/ Dextrose) 500 mls @ 18.75 mls/hr IV TITR [facility]; 5 MCG/MIN PRN Reason: Protocol Last Admin: 06/14/16 08:29 Dose: 15 mls/hr Azithromycin 250 mg/ Dextrose 250 mls @ 250 mls/hr IVPB DAILY@2200 [facility] Last Admin: 06/13/16 22:49 Dose: 250 mls/hr Pantoprazole Sodium (Protonix 40mg Ivpb (Pre-Docked)) 100 mls @ 200 mls/hr IVPB BID@0600,1800 [facility] Last Admin: 06/14/16 07:29 Dose: 200 mls/hr Meropenem 250 mg/ Dextrose 100 mls @ 400 mls/hr IVPB BID [facility] Last Admin: 06/13/16 23:00 Dose: 400 mls/hr Ascorbic Acid 1,000 mg/ Sodium (Chloride) 102 mls @ 102 mls/hr IVPB Q6H [facility] Stop: 06/17/16 08:59 Last Admin: 06/14/16 09:37 Dose: 102 mls/hr Furosemide 100 mg/ Sodium (Chloride) 100 mls @ 5 mls/hr IVPB ASDIR [facility] Insulin Aspart (Novolog Vial Sliding Scale -) 1 vial SQ ACHS [facility] PRN Reason: Protocol Last Admin: 06/14/16 07:29 Dose: Not Given Levothyroxine Sodium (Synthroid Injection -) 25 mcg IVPUSH AM [facility] Last Admin: 06/14/16 07:29 Dose: 25 mcg Sodium Bicarbonate (Sodium Bicarbonate -) 650 mg PO BID [facility] Last Admin: 06/14/16 09:06 Dose: 650 mg Thiamine HCl (Vitamin B1 Injection -) 200 mg IVPB Q12H [facility] Stop: 06/17/16 13:59 Last Admin: 06/14/16 01:54 Dose: 200 mg - Objective Vital Signs: Vital Signs Temperature 97.2 F L 06/14/16 05:45 Pulse Rate 68 06/14/16 11:06 Respiratory Rate 20 06/14/16 09:00 Blood Pressure 95/73 06/14/16 08:29 O2 Sat by Pulse Oximetry (%) 100 06/14/16 11:06 Eyes: Yes: Conjunctiva Clear, EOM Intact HENT: Yes: Atraumatic, Normocephalic Cardiovascular: Yes: Regular Rate and Rhythm, JVD. No: Murmur Respiratory: Yes: Diminished Gastrointestinal: Yes: Normal Bowel Sounds, Soft Edema: Yes Edema: LLE: 3+, RLE: 3+ Labs: CBC, BMP 06/14/16 05:05 06/14/16 05:05 INR, PTT INR 1.85 (0.82-1.09) H 06/11/16 05:15 Fibrinogen 405.0 mg/dL (238-498) 06/10/16 04:45 Assessment/Plan 76 yo male with known CAD, prior PA (mild diffuse prox RCA disease, no intervention), paroxysmal atrial fib/flutter (on Eliquis), HFrEF (severely reduced LV systolic function per 04/14/16 echo), HTN, DM, CKD, hyperlipidemia, who was recently hospitalized at [facility] from 05/23-06/02/16 for cellulitis/abscess of left shoulder and lower extremities, and bacteremia. Now admitted with septic shock, acute on chronic renal failure, hyperkalemia, and anemia requiring pressor and inotropic support (NE and DBT) currently on low dose of NE. Possible HCAP? Multiple skin ulcers - skin infection. Started on lasix gtt. Patient hypotensive with down titration of norepinephrine. RECS: May consider trial of dobutamine gtt to help with cardiac output as a termporary measure in an effort to help improve renal perfusion and aid in diuresis while on lasix gtt. Would start dobutamine gtt at 5 mcg/kg/min and keep levophed gtt on board initially. Will need to monitor for potential tachyarrhythmias with dobutamine gtt. If no significant improvement in renal function/urine output, may need to consider hemodialysis. Plan discussed with Dr. Farrell. Would continue to hold anticoagulation for afib given anemia. Anemia work up by primary team. Strict I&O. Daily weight. Further recs as per ICU team, nephrology, and ID service.
[2016-06-14] MEDS: HEPARIN NA (PORCINE) 5,000 UNITS/ML 1ML VIAL SQ SCH (11:30)
[2016-06-14] MEDS: MEROPENEM 250 MG in DEXTROSE 5%-WATER - 100 ML IVPB SCH (11:39)
[2016-06-14 16:25] LABS: CALCIUM 7.8 mg/dL (8.5-10.1); CREATININE 4.3 mg/dL (0.7-1.3)
[2016-06-14] MEDS: AZITHROMYCIN IVPB 250 MG in DEXTROSE 5%-WATER - 250 ML IVPB SCH (22:00)
[2016-06-14] MEDS ORDERED: SODIUM POLYSTYRENE SULFONATE 15 GM/60 ML BOTTLE ONE (23:04)
[2016-06-15] MEDS: HEPARIN NA (PORCINE) 5,000 UNITS/ML 1ML VIAL SQ SCH ×3 (00:44→21:06)
[2016-06-15] MEDS: BRIMONIDINE TARTRATE 0.2% OPHTHALMIC 5 ML BOTTLE OU SCH ×3 (00:44→21:08)
[2016-06-15] MEDS: MEROPENEM 250 MG in DEXTROSE 5%-WATER - 100 ML IVPB SCH ×3 (00:44→21:06)
[2016-06-15] MEDS: INSULIN SLIDING SCALE (NOVOLOG) 1 VIAL SQ SCH ×5 (00:44→21:07)
[2016-06-15] MEDS: COLLAGENASE CLOSTRIDIUM HIST. 30 GRAMS TUBE TP SCH ×3 (00:45→21:08)
[2016-06-15] MEDS: SODIUM BICARBONATE 650 MG TABLET PO SCH ×3 (00:46→21:07)
[2016-06-15] MEDS: SODIUM CHLORIDE IVPB SCH ×5 (02:00→20:45)
[2016-06-15] MEDS: THIAMINE HCL 200 MG/2 ML VIAL IVPB SCH ×2 (02:00→14:50)
[2016-06-15] MEDS: ASCORBIC ACID IVPB SCH ×5 (02:00→20:45)
[2016-06-15] MEDS ORDERED: SODIUM POLYSTYRENE SULFONATE 15 GM/60 ML BOTTLE PO ONE (05:45)
[2016-06-15 06:03] LABS: BASOPHIL 0.4 % (0-2.0); EOSINOPHIL 0.3 % (0-4.5); MCH 29.6 pg (25.7-33.7); MCHC 33.5 g/dl (32.0-35.9); MEAN CELL VOLUME 88.3 fl (80-96); MEAN PLT VOLUME 8.9 fl (7.5-11.1); NEUTROPHILS 89.6 % (42.8-82.8); PLATELET COUNT 155 K/MM3 (134-434); RDW 17.7 % (11.9-15.9); WHITE BLOOD COUNT 14.5 K/mm3 (4.0-10.0)
[2016-06-15] MEDS: ALBUTEROL SO4 2.5/IPRATROPIUM 0.5 INH SOL 3 ML VIAL.NEB. NEB SCH (06:13)
[2016-06-15 06:38] LABS: ALBUMIN 1.8 g/dl (3.4-5.0); BILIRUBIN,TOTAL 1.2 mg/dL (0.2-1.0); CALCIUM 7.9 mg/dL (8.5-10.1); CREATININE 4.4 mg/dL (0.7-1.3); PHOSPHOROUS 6.9 mg/dL (2.5-4.9); TOT PROT 5.6 g/dl (6.4-8.2)
[2016-06-15] MEDS: PANTOPRAZOLE SODIUM 100 ML IVPB SCH ×2 (06:39→17:02)
[2016-06-15] MEDS: NOREPINEPHRINE BITARTRATE 8,000 MCG in DEXTROSE 5%-WATER - 492 ML IV SCH (06:40)
[2016-06-15] MEDS: LEVOTHYROXINE SODIUM 100 MCG VIAL IVPUSH SCH (06:41)
[2016-06-15] MEDS ORDERED: NOREPINEPHRINE BITARTRATE 4 MG/4 ML ML IV ONE (06:52)
[2016-06-15 07:37] LABS: ARTERIAL BLD GAS O2 SATURATION 96.9 % (90-98.9); ARTERIAL BLOOD GAS PO2 95.8 mmHg (70-100); ARTERIAL BLOOD GAS pH 7.27 (7.35-7.45)
[2016-06-15 07:38] LABS: ALLENS TEST POSITIVE; ART PUNCT SITE RIGHT RADIAL; ARTERIAL BLOOD GAS HCO3 14.5 meq/L (22-26); LPM/O2% 4L; PT. ON O2? YES; TYPE OF O2 NASAL O2
[2016-06-15 07:43] LABS: ANISOCYTOSIS 2+; FRAGMENTED CELL 1+; HYPOCHROMIA 2+; MICROCYTOSIS 1+; PLATELET COMMENT2 NO CLOTTING DETECTED; PLATELET COMMENT3 FEW LARGE PLTS; PLATELET ESTIMATE ADEQUATE (NORMAL); POIKILOCYTOSIS 2+; POLYCHROMASIA 1+; SCHISTOCYTES 1+
[2016-06-15 07:44] LABS: TOXIC GRANULATION 1+
[2016-06-15] MEDS ORDERED: PT OWN MED DRAWER 7, Y5N ONE ×3 (08:38→21:00)
--- NOTE | 2016-06-15 09:01 | PN ---
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, Physician History of Present Illness: Patient currently on lasix gtt. Patient denies any new complaints. - Current Medication List Current Medications: Active Medications Brimonidine Tartrate (Alphagan 0.2% -) 1 drop OU BID [facility] Last Admin: 06/15/16 00:44 Dose: 1 drop Collagenase (Santyl -) 1 applic TP BID [facility] Last Admin: 06/15/16 00:45 Dose: 1 applic Heparin Sodium (Porcine) (Heparin -) 5,000 unit SQ BID [facility] Last Admin: 06/15/16 00:44 Dose: 5,000 unit Norepinephrine Bitartrate 8, (000 mcg/ Dextrose) 500 mls @ 18.75 mls/hr IV TITR [facility]; 5 MCG/MIN PRN Reason: Protocol Last Admin: 06/15/16 06:40 Dose: 18.75 mls/hr Azithromycin 250 mg/ Dextrose 250 mls @ 250 mls/hr IVPB DAILY@2200 [facility] Last Admin: 06/14/16 22:00 Dose: 250 mls/hr Pantoprazole Sodium (Protonix 40mg Ivpb (Pre-Docked)) 100 mls @ 200 mls/hr IVPB BID@0600,1800 [facility] Last Admin: 06/15/16 06:39 Dose: 200 mls/hr Meropenem 250 mg/ Dextrose 100 mls @ 400 mls/hr IVPB BID [facility] Last Admin: 06/15/16 00:44 Dose: 400 mls/hr Ascorbic Acid 1,000 mg/ Sodium (Chloride) 102 mls @ 102 mls/hr IVPB Q6H [facility] Stop: 06/17/16 08:59 Last Admin: 06/15/16 02:00 Dose: 102 mls/hr Furosemide 100 mg/ Sodium (Chloride) 100 mls @ 5 mls/hr IVPB ASDIR [facility] Insulin Aspart (Novolog Vial Sliding Scale -) 1 vial SQ ACHS [facility] PRN Reason: Protocol Last Admin: 06/15/16 06:40 Dose: Not Given Levothyroxine Sodium (Synthroid Injection -) 25 mcg IVPUSH AM [facility] Last Admin: 06/15/16 06:41 Dose: 25 mcg Sodium Bicarbonate (Sodium Bicarbonate -) 650 mg PO BID [facility] Last Admin: 06/15/16 00:46 Dose: 650 mg Thiamine HCl (Vitamin B1 Injection -) 200 mg IVPB Q12H [facility] Stop: 06/17/16 13:59 Last Admin: 06/15/16 02:00 Dose: 200 mg - Objective Vital Signs: Vital Signs Temperature 97.2 F L 06/14/16 20:00 Pulse Rate 85 06/15/16 06:00 Respiratory Rate 20 06/15/16 07:30 Blood Pressure 106/62 06/15/16 06:00 O2 Sat by Pulse Oximetry (%) 95 06/15/16 07:30 Constitutional: Yes: No Distress Eyes: Yes: Conjunctiva Clear, EOM Intact HENT: Yes: Atraumatic, Normocephalic Cardiovascular: Yes: Regular Rate and Rhythm. No: JVD Respiratory: Yes: CTA Bilaterally Gastrointestinal: Yes: Normal Bowel Sounds, Soft. No: Tenderness Edema: Yes Edema: LLE: 3+, RLE: 3+ Labs: CBC, BMP 06/15/16 05:00 06/15/16 05:00 INR, PTT INR 1.85 (0.82-1.09) H 06/11/16 05:15 Fibrinogen 405.0 mg/dL (238-498) 06/10/16 04:45 Assessment/Plan 76 yo male with known CAD, prior [place] (mild diffuse prox RCA disease, no intervention), paroxysmal atrial fib/flutter (on Eliquis), HFrEF (severely reduced LV systolic function per 04/14/16 echo), HTN, DM, CKD, hyperlipidemia, who was recently hospitalized at [facility] from 05/23-06/02/16 for cellulitis/abscess of left shoulder and lower extremities, and bacteremia. Now admitted with septic shock, acute on chronic renal failure, hyperkalemia, and anemia requiring pressor and inotropic support (NE and DBT) currently on low dose of NE. Possible HCAP? Multiple skin ulcers - skin infection. Currently on lasix gtt and norephinephrine gtt. RECS: May consider trial of dobutamine gtt to help with cardiac output as a temporary measure in an effort to help improve renal perfusion and aid in diuresis while on lasix gtt. If going to start dobutamine gtt, would start at 5 mcg/kg/min and keep levophed gtt on board initially. Will need to monitor for potential tachyarrhythmias with dobutamine gtt. If no significant improvement in renal function/urine output, may need to consider hemodialysis. Would continue to hold anticoagulation for afib given anemia. Anemia work up by primary team. Strict I&O. Daily weight. Further recs as per ICU team, nephrology, and ID service. Please call with questions.
--- NOTE | 2016-06-15 09:27 | PN ---
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 (short form) - Note 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: alert, on nasal canulla today, alert levophed being tapered Vital Signs Period Temp Pulse Resp BP Sys/Hubbard Pulse Ox Last 24 Hr 97 F-97.2 F 62-87 14-22 82-116/49-88 92-100 cor-rrr lungs decreased bs at bases abd soft,nt ext dressings both legs shoulder wound packed cunningham CBC, BMP 06/15/16 05:00 06/15/16 05:00 cxray rll infiltrate Microbiology 06/09/16 23:00 Blood - Peripheral Venous Blood Culture - Final NO GROWTH AFTER 5 DAYS INCUBATION 06/09/16 23:00 Blood - Peripheral Venous Blood Culture - Final NO GROWTH AFTER 5 DAYS INCUBATION Current Medications Brimonidine Tartrate (Alphagan 0.2% -) 1 drop OU BID [facility] Last Admin: 06/15/16 00:44 Dose: 1 drop Collagenase (Santyl -) 1 applic TP BID [facility] Last Admin: 06/15/16 00:45 Dose: 1 applic Heparin Sodium (Porcine) (Heparin -) 5,000 unit SQ BID [facility] Last Admin: 06/15/16 00:44 Dose: 5,000 unit Norepinephrine Bitartrate 8, (000 mcg/ Dextrose) 500 mls @ 18.75 mls/hr IV TITR [facility]; 5 MCG/MIN PRN Reason: Protocol Last Admin: 06/15/16 06:40 Dose: 18.75 mls/hr Azithromycin 250 mg/ Dextrose 250 mls @ 250 mls/hr IVPB DAILY@2200 [facility] Last Admin: 06/14/16 22:00 Dose: 250 mls/hr Pantoprazole Sodium (Protonix 40mg Ivpb (Pre-Docked)) 100 mls @ 200 mls/hr IVPB BID@0600,1800 [facility] Last Admin: 06/15/16 06:39 Dose: 200 mls/hr Meropenem 250 mg/ Dextrose 100 mls @ 400 mls/hr IVPB BID [facility] Last Admin: 06/15/16 00:44 Dose: 400 mls/hr Ascorbic Acid 1,000 mg/ Sodium (Chloride) 102 mls @ 102 mls/hr IVPB Q6H [facility] Stop: 06/17/16 08:59 Last Admin: 06/15/16 02:00 Dose: 102 mls/hr Furosemide 100 mg/ Sodium (Chloride) 100 mls @ 5 mls/hr IVPB ASDIR [facility] Insulin Aspart (Novolog Vial Sliding Scale -) 1 vial SQ ACHS [facility] PRN Reason: Protocol Last Admin: 06/15/16 06:40 Dose: Not Given Levothyroxine Sodium (Synthroid Injection -) 25 mcg IVPUSH AM [facility] Last Admin: 06/15/16 06:41 Dose: 25 mcg Sodium Bicarbonate (Sodium Bicarbonate -) 650 mg PO BID [facility] Last Admin: 06/15/16 00:46 Dose: 650 mg Thiamine HCl (Vitamin B1 Injection -) 200 mg IVPB Q12H [facility] Stop: 06/17/16 13:59 Last Admin: 06/15/16 02:00 Dose: 200 mg a/p sepsis RLL pneumonia (HAP) afib cardiomyopathy with severely reduced EF continue meropenem/zithromax history of resistant organisms- MRSA contact isolation
--- NOTE | 2016-06-15 09:54 | PN ---
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 (short form) - Note 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: Patient seen and examined in the ICU. NIPPV overnight but now on NC. Remains on 4 meq NE for hemodynamic support. Awake but sleepy. CXR: significant worsening of vascular congestion Intake & Output 06/12/16 06/13/16 06/14/16 06/15/16 23:59 23:59 23:59 23:59 Intake Total 1620 1309 1259 926 Output Total 875 1300 650 300 Balance 745 9 609 626 Weight 244 lb 8 oz 237 lb 7.005 oz 237 lb 7.005 oz 235 lb 0.204 oz Last Vital Signs Temp Pulse Resp BP Pulse Ox 97.2 F L 85 20 106/62 95 06/14/16 20:00 06/15/16 06:00 06/15/16 07:30 06/15/16 06:00 06/15/16 07:30 Active Medications Brimonidine Tartrate (Alphagan 0.2% -) 1 drop OU BID [facility] Last Admin: 06/15/16 09:29 Dose: 1 drop Collagenase (Santyl -) 1 applic TP BID [facility] Last Admin: 06/15/16 09:30 Dose: 1 applic Heparin Sodium (Porcine) (Heparin -) 5,000 unit SQ BID [facility] Last Admin: 06/15/16 09:30 Dose: 5,000 unit Norepinephrine Bitartrate 8, (000 mcg/ Dextrose) 500 mls @ 18.75 mls/hr IV TITR [facility]; 5 MCG/MIN PRN Reason: Protocol Last Admin: 06/15/16 06:40 Dose: 18.75 mls/hr Azithromycin 250 mg/ Dextrose 250 mls @ 250 mls/hr IVPB DAILY@2200 [facility] Last Admin: 06/14/16 22:00 Dose: 250 mls/hr Pantoprazole Sodium (Protonix 40mg Ivpb (Pre-Docked)) 100 mls @ 200 mls/hr IVPB BID@0600,1800 [facility] Last Admin: 06/15/16 06:39 Dose: 200 mls/hr Meropenem 250 mg/ Dextrose 100 mls @ 400 mls/hr IVPB BID [facility] Last Admin: 06/15/16 00:44 Dose: 400 mls/hr Ascorbic Acid 1,000 mg/ Sodium (Chloride) 102 mls @ 102 mls/hr IVPB Q6H [facility] Stop: 06/17/16 08:59 Last Admin: 06/15/16 09:00 Dose: 102 mls/hr Furosemide 100 mg/ Sodium (Chloride) 100 mls @ 5 mls/hr IVPB [facility] Insulin Aspart (Novolog Vial Sliding Scale -) 1 vial SQ ACHS [facility] PRN Reason: Protocol Last Admin: 06/15/16 06:40 Dose: Not Given Levothyroxine Sodium (Synthroid Injection -) 25 mcg IVPUSH AM [facility] Last Admin: 06/15/16 06:41 Dose: 25 mcg Sodium Bicarbonate (Sodium Bicarbonate -) 650 mg PO BID [facility] Last Admin: 06/15/16 09:30 Dose: 650 mg Thiamine HCl (Vitamin B1 Injection -) 200 mg IVPB Q12H [facility] Stop: 06/17/16 13:59 Last Admin: 06/15/16 02:00 Dose: 200 mg Gen: Sleepy but easily arousable on NC O2 Heart: RRR Lung: scattered rhonchi Abd: soft, nontender Ext: + edema, dressings serous Laboratory Results - last 24 hr 06/14/16 06/14/16 06/15/16 11:59 15:25 05:00 WBC RBC Hgb Hct MCV MCHC RDW Plt Count MPV Neutrophils % Lymphocytes % Monocytes % Eosinophils % Basophils % Differential Comment Toxic Granulation Platelet Estimate Platelet Comment Polychromasia Hypochromic-Microcytic Poikilocytosis Anisocytosis Microcytosis Fragmented RBCs Schistocytes Puncture Site ABG pH ABG pCO2 at Pt Temp ABG pO2 at Pt Temp ABG HCO3 ABG O2 Sat (Measured) ABG O2 Content ABG Base Excess Frankie Test O2 Delivery Device Oxygen Flow Rate Sodium 127 L 129 L Potassium 5.5 H 5.2 H Chloride 95 L 96 L Carbon Dioxide 17 L 18 L Anion Gap 15 15 BUN 111 H* 115 H* Creatinine 4.3 H 4.4 H Creat Clearance w eGFR 13.14 POC Glucometer [phone] Random Glucose 87 89 Calcium 7.8 L 7.9 L Phosphorus 6.9 H D Total Bilirubin 1.2 H D AST 26 D ALT 25 Alkaline Phosphatase 94 Total Protein 5.6 L Albumin 1.8 L 06/15/16 06/15/16 05:00 07:30 WBC 14.5 H RBC 2.82 L Hgb 8.3 L Hct 24.9 L MCV 88.3 MCHC 33.5 RDW 17.7 H Plt Count 155 MPV 8.9 Neutrophils % 89.6 H Lymphocytes % 1.4 L D Monocytes % 8.3 Eosinophils % 0.3 Basophils % 0.4 Differential Comment Slide scanned Toxic Granulation 1+ Platelet Estimate Adequate Platelet Comment No clotting detected Polychromasia 1+ Hypochromic-Microcytic 2+ Poikilocytosis 2+ Anisocytosis 2+ Microcytosis 1+ Fragmented RBCs 1+ Schistocytes 1+ Puncture Site Right radial ABG pH 7.27 L ABG pCO2 at Pt Temp 32.5 L ABG pO2 at Pt Temp 95.8 D ABG HCO3 14.5 L* ABG O2 Sat (Measured) 96.9 ABG O2 Content 11.1 L ABG Base Excess -11.0 L* Frankie Test Positive O2 Delivery Device Nasal o2 Oxygen Flow Rate 4l Sodium Potassium Chloride Carbon Dioxide Anion Gap BUN Creatinine Creat Clearance w eGFR POC Glucometer Random Glucose Calcium Phosphorus Total Bilirubin AST ALT Alkaline Phosphatase Total Protein Albumin ASSESSMENT AND PLAN: Back/Shoulder Cellulitis/Abscess Leg Ulcers Septic Shock Acute on Chronic Renal Failure Metabolic Acidosis Acute on Chronic LV Systolic Heart Failure Atrial Fibrillation COPD Hyponatremia - Trial of Dobutamine - ABX per ID - Local wound care - taper levophed gtt to maintain MAP >65 - O2 to keep SpO2 >90% - aspiration precautions - inhaled bronchodilators - continue ICU monitoring for pressor support and tenuous respiratory status - DVT prophylaxis - Lasix drip - NIPPV support Dr Farrell CCTime 35"
[2016-06-15] MEDS ORDERED: DOBUTAMINE 250 MG/D5W - 250 ML ONE ×2 (10:25→23:06)
--- NOTE | 2016-06-15 11:07 | PN ---
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, Physician History of Present Illness: Renal f/u Pt in no distress with VM in place and is more awake Kayexalate given last night Levophed at 5 mcg/min and lasix drip at 5 mg/hr BP meam above 70 UO ~ 350 cc in last 12 hours - Current Medication List Current Medications: Active Medications Brimonidine Tartrate (Alphagan 0.2% -) 1 drop OU BID [facility] Last Admin: 06/15/16 09:29 Dose: 1 drop Collagenase (Santyl -) 1 applic TP BID [facility] Last Admin: 06/15/16 09:30 Dose: 1 applic Heparin Sodium (Porcine) (Heparin -) 5,000 unit SQ BID [facility] Last Admin: 06/15/16 09:30 Dose: 5,000 unit Norepinephrine Bitartrate 8, (000 mcg/ Dextrose) 500 mls @ 18.75 mls/hr IV TITR [facility]; 5 MCG/MIN PRN Reason: Protocol Last Admin: 06/15/16 06:40 Dose: 18.75 mls/hr Azithromycin 250 mg/ Dextrose 250 mls @ 250 mls/hr IVPB DAILY@2200 [facility] Last Admin: 06/14/16 22:00 Dose: 250 mls/hr Pantoprazole Sodium (Protonix 40mg Ivpb (Pre-Docked)) 100 mls @ 200 mls/hr IVPB BID@0600,1800 [facility] Last Admin: 06/15/16 06:39 Dose: 200 mls/hr Meropenem 250 mg/ Dextrose 100 mls @ 400 mls/hr IVPB BID [facility] Last Admin: 06/15/16 00:44 Dose: 400 mls/hr Ascorbic Acid 1,000 mg/ Sodium (Chloride) 102 mls @ 102 mls/hr IVPB Q6H [facility] Stop: 06/17/16 08:59 Last Admin: 06/15/16 09:00 Dose: 102 mls/hr Furosemide 100 mg/ Sodium (Chloride) 100 mls @ 5 mls/hr IVPB ASDIR [facility] Dobutamine HCl 250,000 mcg/ (Sodium Chloride) 250 mls @ 31.98 mls/hr IV TITR [facility]; 5 MCG/KG/MIN PRN Reason: Protocol Insulin Aspart (Novolog Vial Sliding Scale -) 1 vial SQ ACHS [facility] PRN Reason: Protocol Last Admin: 06/15/16 06:40 Dose: Not Given Levothyroxine Sodium (Synthroid Injection -) 25 mcg IVPUSH AM [facility] Last Admin: 06/15/16 06:41 Dose: 25 mcg Sodium Bicarbonate (Sodium Bicarbonate -) 650 mg PO BID [facility] Last Admin: 06/15/16 09:30 Dose: 650 mg Thiamine HCl (Vitamin B1 Injection -) 200 mg IVPB Q12H [facility] Stop: 06/17/16 13:59 Last Admin: 06/15/16 02:00 Dose: 200 mg - Objective Vital Signs: Vital Signs Temperature 97.2 F L 06/14/16 20:00 Pulse Rate 85 06/15/16 06:00 Respiratory Rate 20 06/15/16 07:30 Blood Pressure 106/62 06/15/16 06:00 O2 Sat by Pulse Oximetry (%) 95 06/15/16 07:30 Constitutional: Yes: No Distress, Calm Cardiovascular: Yes: S1, S2 (Distant S1S2) Respiratory: Yes: Other (Decreased BS at bases and occasional rales) Gastrointestinal: Yes: Soft, Abdomen, Obese. No: Tenderness, Rebound Edema: Yes (to thighs) Labs: CBC, BMP 06/15/16 05:00 06/15/16 05:00 INR, PTT INR 1.85 (0.82-1.09) H 06/11/16 05:15 Fibrinogen 405.0 mg/dL (238-498) 06/10/16 04:45 - ....Imaging Chest X-ray: Report Reviewed, Image Reviewed Assessment/Plan Impression 1. CASE on CKD 2. Sepsis with shock 3. Cellulitis/abscess of back 4. HFrEF acute 5. Hypothyroidism 6. Hyperlipidemia 7. COPD 8. htn 9. a-fib 10. hyponatremia with fluid overload Plan Taper off the levophed as tolerated Dobutamine as ordered Once off the levophed would increase the lasix to 10 mg/hr if BP allows If no improvement with his fluid overload and azotemia by tomorrow to consider proceeding with dialyticf therapy Discussed with CCM and PMD Dr Camp
--- NOTE | 2016-06-15 11:25 | PN ---
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, Physician History of Present Illness: LETHARGIC IN BED WITH VM - Current Medication List Current Medications: Active Medications Brimonidine Tartrate (Alphagan 0.2% -) 1 drop OU BID [facility] Last Admin: 06/15/16 09:29 Dose: 1 drop Collagenase (Santyl -) 1 applic TP BID [facility] Last Admin: 06/15/16 09:30 Dose: 1 applic Heparin Sodium (Porcine) (Heparin -) 5,000 unit SQ BID [facility] Last Admin: 06/15/16 09:30 Dose: 5,000 unit Norepinephrine Bitartrate 8, (000 mcg/ Dextrose) 500 mls @ 18.75 mls/hr IV TITR [facility]; 5 MCG/MIN PRN Reason: Protocol Last Admin: 06/15/16 06:40 Dose: 18.75 mls/hr Azithromycin 250 mg/ Dextrose 250 mls @ 250 mls/hr IVPB DAILY@2200 [facility] Last Admin: 06/14/16 22:00 Dose: 250 mls/hr Pantoprazole Sodium (Protonix 40mg Ivpb (Pre-Docked)) 100 mls @ 200 mls/hr IVPB BID@0600,1800 [facility] Last Admin: 06/15/16 06:39 Dose: 200 mls/hr Meropenem 250 mg/ Dextrose 100 mls @ 400 mls/hr IVPB BID [facility] Last Admin: 06/15/16 00:44 Dose: 400 mls/hr Ascorbic Acid 1,000 mg/ Sodium (Chloride) 102 mls @ 102 mls/hr IVPB Q6H [facility] Stop: 06/17/16 08:59 Last Admin: 06/15/16 09:00 Dose: 102 mls/hr Furosemide 100 mg/ Sodium (Chloride) 100 mls @ 5 mls/hr IVPB ASDIR [facility] Dobutamine HCl 250,000 mcg/ (Sodium Chloride) 250 mls @ 31.98 mls/hr IV TITR [facility]; 5 MCG/KG/MIN PRN Reason: Protocol Insulin Aspart (Novolog Vial Sliding Scale -) 1 vial SQ ACHS [facility] PRN Reason: Protocol Last Admin: 06/15/16 06:40 Dose: Not Given Levothyroxine Sodium (Synthroid Injection -) 25 mcg IVPUSH AM [facility] Last Admin: 06/15/16 06:41 Dose: 25 mcg Sodium Bicarbonate (Sodium Bicarbonate -) 650 mg PO BID [facility] Last Admin: 06/15/16 09:30 Dose: 650 mg Thiamine HCl (Vitamin B1 Injection -) 200 mg IVPB Q12H [facility] Stop: 06/17/16 13:59 Last Admin: 06/15/16 02:00 Dose: 200 mg - Objective Vital Signs: Vital Signs Temperature 97.2 F L 06/14/16 20:00 Pulse Rate 85 06/15/16 06:00 Respiratory Rate 20 06/15/16 07:30 Blood Pressure 106/62 06/15/16 06:00 O2 Sat by Pulse Oximetry (%) 95 06/15/16 07:30 Cardiovascular: Yes: S1, S2 Respiratory: Yes: Diminished, On Venti-Mask, Rales Gastrointestinal: Yes: Normal Bowel Sounds, Soft Labs: CBC, BMP 06/15/16 05:00 06/15/16 05:00 INR, PTT INR 1.85 (0.82-1.09) H 06/11/16 05:15 Fibrinogen 405.0 mg/dL (238-498) 06/10/16 04:45 Problem List - Problems (1) Acute hyperkalemia Assessment/Plan: MONITOR ON LASIX Laboratory Tests 06/14/16 06/15/16 15:25 05:00 Potassium 5.5 H 5.2 H Code(s): E87.5 - HYPERKALEMIA (2) Hypotension Assessment/Plan: ON LEVO 4 Code(s): I95.9 - HYPOTENSION, UNSPECIFIED Qualifiers: Hypotension type: other hypotension type Qualified Code(s): I95.89 - Other hypotension (3) Acute on chronic renal failure Assessment/Plan: RENAL ON BOARD--START LASIX DRIP Code(s): N17.9 - ACUTE KIDNEY FAILURE, UNSPECIFIED N18.9 - CHRONIC KIDNEY DISEASE, UNSPECIFIED (4) COPD (chronic obstructive pulmonary disease) Assessment/Plan: NEBS O2 Code(s): J44.9 - CHRONIC OBSTRUCTIVE PULMONARY DISEASE, UNSPECIFIED (5) Congestive heart failure (CHF) Assessment/Plan: LASIX DRIP MAY NEED INOTROPICS--START DOBUTAMINE Code(s): I50.9 - HEART FAILURE, UNSPECIFIED Qualifiers: Congestive heart failure type: systolic Congestive heart failure chronicity: chronic Qualified Code(s): I50.22 - Chronic systolic (congestive ) heart failure
[2016-06-15] MEDS: DOBUTAMINE HCL 250,000 MCG in SODIUM CHLORIDE 230 ML IV SCH (11:40)
[2016-06-15] MEDS ORDERED: SEVELAMER CARBONATE 800 MG TAB (FP) PO SCH (12:00)
[2016-06-15] MEDS: FUROSEMIDE INJECTION 100 MG in SODIUM CHLORIDE 90 ML IVPB SCH (13:59)
[2016-06-15] MEDS: SEVELAMER CARBONATE 0.8 GM POWDER PACKET PO SCH (16:58)
[2016-06-15] MEDS: AZITHROMYCIN IVPB 250 MG in DEXTROSE 5%-WATER - 250 ML IVPB SCH (21:06)
[2016-06-15] MEDS ORDERED: FUROSEMIDE 100 MG/10 ML INJECTABLE VIAL ONE (23:06)
[2016-06-16] MEDS: THIAMINE HCL 200 MG/2 ML VIAL IVPB SCH ×2 (02:26→13:01)
[2016-06-16] MEDS: SODIUM CHLORIDE IVPB SCH ×4 (02:26→19:54)
[2016-06-16] MEDS: ASCORBIC ACID IVPB SCH ×4 (02:26→19:54)
[2016-06-16] MEDS: FUROSEMIDE INJECTION 100 MG in SODIUM CHLORIDE 90 ML IVPB SCH (02:27)
[2016-06-16 06:19] LABS: MCH 28.5 pg (25.7-33.7); MCHC 32.5 g/dl (32.0-35.9); MEAN CELL VOLUME 87.7 fl (80-96); MEAN PLT VOLUME 9.1 fl (7.5-11.1); PLATELET COUNT 110 K/MM3 (134-434); RDW 17.7 % (11.9-15.9); WHITE BLOOD COUNT 13.2 K/mm3 (4.0-10.0)
[2016-06-16] MEDS: PANTOPRAZOLE SODIUM 100 ML IVPB SCH ×2 (06:28→17:10)
[2016-06-16] MEDS: INSULIN SLIDING SCALE (NOVOLOG) 1 VIAL SQ SCH ×4 (06:41→21:44)
[2016-06-16] MEDS: LEVOTHYROXINE SODIUM 100 MCG VIAL IVPUSH SCH (06:43)
[2016-06-16 06:44] LABS: ALBUMIN 1.6 g/dl (3.4-5.0); BILIRUBIN,TOTAL 1.1 mg/dL (0.2-1.0); CALCIUM 7.7 mg/dL (8.5-10.1); CREATININE 4.4 mg/dL (0.7-1.3); MAGNESIUM 1.9 mg/dL (1.8-2.4); PHOSPHOROUS 6.5 mg/dL (2.5-4.9)
--- NOTE | 2016-06-16 07:00 | PN ---
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, Physician - Current Medication List Current Medications: Active Medications Brimonidine Tartrate (Alphagan 0.2% -) 1 drop OU BID [facility] Last Admin: 06/15/16 21:08 Dose: 1 drop Collagenase (Santyl -) 1 applic TP BID [facility] Last Admin: 06/15/16 21:08 Dose: 1 applic Heparin Sodium (Porcine) (Heparin -) 5,000 unit SQ BID [facility] Last Admin: 06/15/16 21:06 Dose: 5,000 unit Azithromycin 250 mg/ Dextrose 250 mls @ 250 mls/hr IVPB DAILY@2200 [facility] Last Admin: 06/15/16 21:06 Dose: 250 mls/hr Pantoprazole Sodium (Protonix 40mg Ivpb (Pre-Docked)) 100 mls @ 200 mls/hr IVPB BID@0600,1800 [facility] Last Admin: 06/16/16 06:28 Dose: 200 mls/hr Meropenem 250 mg/ Dextrose 100 mls @ 400 mls/hr IVPB BID [facility] Last Admin: 06/15/16 21:06 Dose: 400 mls/hr Ascorbic Acid 1,000 mg/ Sodium (Chloride) 102 mls @ 102 mls/hr IVPB Q6H [facility] Stop: 06/17/16 08:59 Last Admin: 06/16/16 02:26 Dose: 102 mls/hr Dobutamine HCl 250,000 mcg/ (Sodium Chloride) 250 mls @ 31.98 mls/hr IV TITR [facility]; 5 MCG/KG/MIN PRN Reason: Protocol Last Admin: 06/15/16 11:40 Dose: 31.98 mls/hr Furosemide 100 mg/ Sodium (Chloride) 100 mls @ 5 mls/hr IVPB ASDIR [facility] Last Admin: 06/16/16 02:27 Dose: 5 mls/hr Insulin Aspart (Novolog Vial Sliding Scale -) 1 vial SQ ACHS [facility] PRN Reason: Protocol Last Admin: 06/16/16 06:41 Dose: Not Given Levothyroxine Sodium (Synthroid Injection -) 25 mcg IVPUSH AM [facility] Last Admin: 06/16/16 06:43 Dose: 25 mcg Sevelamer Carbonate (Renvela Powder Packet -) 0.8 gm PO TIDCM [facility] Last Admin: 06/15/16 16:58 Dose: 0.8 gm Sodium Bicarbonate (Sodium Bicarbonate -) 650 mg PO BID [facility] Last Admin: 06/15/16 21:07 Dose: 650 mg Thiamine HCl (Vitamin B1 Injection -) 200 mg IVPB Q12H [facility] Stop: 06/17/16 13:59 Last Admin: 06/16/16 02:26 Dose: 200 mg - Objective Vital Signs: Vital Signs Temperature 96.8 F L 06/16/16 06:54 Pulse Rate 90 06/16/16 06:54 Respiratory Rate 18 06/16/16 06:54 Blood Pressure 98/66 06/16/16 06:54 O2 Sat by Pulse Oximetry (%) 96 06/16/16 03:15 Neck: Yes: WNL Cardiovascular: Yes: WNL Respiratory: Yes: WNL Gastrointestinal: Yes: WNL Edema: No Labs: CBC, BMP 06/16/16 05:20 06/16/16 05:20 INR, PTT INR 1.85 (0.82-1.09) H 06/11/16 05:15 Fibrinogen 405.0 mg/dL (238-498) 06/10/16 04:45 Problem List - Problems (1) Anemia Code(s): D64.9 - ANEMIA, UNSPECIFIED Qualifiers: Other causes of anemia: chronic disease, kidney Assessment/Plan (1) Acute hyperkalemia Assessment/Plan: MONITOR ON LASIX RESOLVED RENAL ON CASE Code(s): E87.5 - HYPERKALEMIA (2) Hypotension Assessment/Plan: ON PRESSORS Code(s): I95.9 - HYPOTENSION, UNSPECIFIED Qualifiers: Hypotension type: other hypotension type Qualified Code(s): I95.89 - Other hypotension (3) Acute on chronic renal failure Assessment/Plan: RENAL ON BOARD--START LASIX DRIP Code(s): N17.9 - ACUTE KIDNEY FAILURE, UNSPECIFIED N18.9 - CHRONIC KIDNEY DISEASE, UNSPECIFIED (4) COPD (chronic obstructive pulmonary disease) Assessment/Plan: NEBS O2 Code(s): J44.9 - CHRONIC OBSTRUCTIVE PULMONARY DISEASE, UNSPECIFIED (5) Congestive heart failure (CHF) Assessment/Plan: LASIX DRIP MAY NEED INOTROPICS--START DOBUTAMINE Code(s): I50.9 - HEART FAILURE, UNSPECIFIED Qualifiers: Congestive heart failure type: systolic Congestive heart failure chronicity: chronic Qualified Code(s): I50.22 - Chronic systolic (congestive ) heart failure (1) Anemia Code(s): D64.9 - ANEMIA, UNSPECIFIED Qualifiers: Other causes of anemia: chronic disease, kidney HGB DROPPING -> NOW 7.4 pRBC x 1 -> ICU/RENAL ON CASE [employer]
[2016-06-16] MEDS: SEVELAMER CARBONATE 0.8 GM POWDER PACKET PO SCH ×3 (08:27→17:10)
--- NOTE | 2016-06-16 08:57 | PN ---
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, Physician Chief Complaint: ID Day 7 antibiotics Meropenem Off pressors - Current Medication List Current Medications: Active Medications Brimonidine Tartrate (Alphagan 0.2% -) 1 drop OU BID [facility] Last Admin: 06/15/16 21:08 Dose: 1 drop Collagenase (Santyl -) 1 applic TP BID [facility] Last Admin: 06/15/16 21:08 Dose: 1 applic Heparin Sodium (Porcine) (Heparin -) 5,000 unit SQ BID [facility] Last Admin: 06/15/16 21:06 Dose: 5,000 unit Azithromycin 250 mg/ Dextrose 250 mls @ 250 mls/hr IVPB DAILY@2200 [facility] Last Admin: 06/15/16 21:06 Dose: 250 mls/hr Pantoprazole Sodium (Protonix 40mg Ivpb (Pre-Docked)) 100 mls @ 200 mls/hr IVPB BID@0600,1800 [facility] Last Admin: 06/16/16 06:28 Dose: 200 mls/hr Meropenem 250 mg/ Dextrose 100 mls @ 400 mls/hr IVPB BID [facility] Last Admin: 06/15/16 21:06 Dose: 400 mls/hr Ascorbic Acid 1,000 mg/ Sodium (Chloride) 102 mls @ 102 mls/hr IVPB Q6H [facility] Stop: 06/17/16 08:59 Last Admin: 06/16/16 02:26 Dose: 102 mls/hr Dobutamine HCl 250,000 mcg/ (Sodium Chloride) 250 mls @ 31.98 mls/hr IV TITR [facility]; 5 MCG/KG/MIN PRN Reason: Protocol Last Admin: 06/15/16 11:40 Dose: 31.98 mls/hr Furosemide 100 mg/ Sodium (Chloride) 100 mls @ 5 mls/hr IVPB ASDIR [facility] Last Admin: 06/16/16 02:27 Dose: 5 mls/hr Insulin Aspart (Novolog Vial Sliding Scale -) 1 vial SQ ACHS [facility] PRN Reason: Protocol Last Admin: 06/16/16 06:41 Dose: Not Given Levothyroxine Sodium (Synthroid Injection -) 25 mcg IVPUSH AM [facility] Last Admin: 06/16/16 06:43 Dose: 25 mcg Sevelamer Carbonate (Renvela Powder Packet -) 0.8 gm PO TIDCM [facility] Last Admin: 06/16/16 08:27 Dose: 0.8 gm Sodium Bicarbonate (Sodium Bicarbonate -) 650 mg PO BID [facility] Last Admin: 06/15/16 21:07 Dose: 650 mg Thiamine HCl (Vitamin B1 Injection -) 200 mg IVPB Q12H [facility] Stop: 06/17/16 13:59 Last Admin: 06/16/16 02:26 Dose: 200 mg - Objective Vital Signs: Vital Signs Temperature 96.3 F L 06/16/16 07:33 Pulse Rate 90 06/16/16 07:33 Respiratory Rate 28 H 06/16/16 07:33 Blood Pressure 109/64 06/16/16 07:33 O2 Sat by Pulse Oximetry (%) 93 L 06/16/16 07:45 Neck: Yes: Other (Central line) Respiratory: Yes: Rhonchi. No: Rales, Wheezes Gastrointestinal: Yes: Soft Labs: CBC, BMP 06/16/16 05:20 06/16/16 05:20 INR, PTT INR 1.85 (0.82-1.09) H 06/11/16 05:15 Fibrinogen 405.0 mg/dL (238-498) 06/10/16 04:45 Assessment/Plan Laboratory Tests 06/16/16 05:20 WBC 13.2 H Hgb 7.4 L D Hct 22.6 L Plt Count 110 L D Microbiology 06/10/16 04:30 Shoulder - Left Gram Stain - Final 06/10/16 04:30 Shoulder - Left Wound Culture - Final S Aureus Staphylococcus Coagulase Neg Yeast Like Organism 06/10/16 00:20 Urine - Urine López Urine Culture - Final NO GROWTH OBTAINED 06/09/16 23:00 Blood - Peripheral Venous Blood Culture - Final NO GROWTH AFTER 5 DAYS INCUBATION 06/09/16 23:00 Blood - Peripheral Venous Blood Culture - Final NO GROWTH AFTER 5 DAYS INCUBATION Laboratory Tests 06/16/16 05:20 BUN 112 H* Creatinine 4.4 H Creat Clearance w eGFR 13.14 Assessment Sepsis syndorome Acute on chronic kidney disease Leg ulcers Shoulder decubitus Hypothermia Opacification of right hemithorax THrombocytopenia ? sepsis related Plan Having had 7 days of broad spectrum antibiotic will stop all meds and observe
[2016-06-16] MEDS: HEPARIN NA (PORCINE) 5,000 UNITS/ML 1ML VIAL SQ SCH ×2 (09:29→21:48)
[2016-06-16] MEDS: SODIUM BICARBONATE 650 MG TABLET PO SCH ×2 (09:30→21:48)
[2016-06-16] MEDS: COLLAGENASE CLOSTRIDIUM HIST. 30 GRAMS TUBE TP SCH ×2 (09:30→22:35)
[2016-06-16] MEDS: BRIMONIDINE TARTRATE 0.2% OPHTHALMIC 5 ML BOTTLE OU SCH ×2 (09:30→21:43)
[2016-06-16] MEDS: DOBUTAMINE HCL 250,000 MCG in SODIUM CHLORIDE 230 ML IV SCH ×2 (11:44→19:45)
[2016-06-16] MEDS ORDERED: DOBUTAMINE 250 MG/D5W - 250 ML ONE ×2 (11:46→19:43)
--- NOTE | 2016-06-16 12:37 | PN ---
Teaching Attending Note Name of Resident: Patricio Andrade ATTENDING PHYSICIAN STATEMENT I saw and evaluated the patient. I reviewed the resident's note and discussed the case with the resident. I agree with the resident's findings and plan as documented. SUBJECTIVE: Pt seen and examined in the ICU. Remains on BiPAP. Lethargic but arousable. On dobutamine gtt. CXR showing opacification of left hemithorax. OBJECTIVE: Last Vital Signs Temp Pulse Resp BP Pulse Ox 96.5 F L 90 28 H 93/61 96 06/16/16 10:38 06/16/16 11:44 06/16/16 10:38 06/16/16 11:44 06/16/16 10:46 Intake & Output 06/13/16 06/14/16 06/15/16 06/16/16 23:59 23:59 23:59 23:59 Intake Total 1309 1259 1626 1104 Output Total 1300 650 950 350 Balance 9 609 676 754 Weight 237 lb 7.005 oz 237 lb 7.005 oz 235 lb 0.204 oz 236 lb 1.841 oz Gen: lethargic but arousable on BIPAP Heart: RRR Lung: scattered rhonchi Abd: soft, nontender Ext: + edema CBC, BMP 06/16/16 05:20 06/16/16 05:20 ABG Results ABG pH 7.27 (7.35-7.45) L 06/15/16 07:30 ABG pCO2 at Pt Temp 32.5 mmHg (35-45) L 06/15/16 07:30 ABG pO2 at Pt Temp 95.8 mmHg (70-100) D 06/15/16 07:30 ABG HCO3 14.5 meq/L (22-26) L* 06/15/16 07:30 ABG O2 Sat (Measured) 96.9 % (90-98.9) 06/15/16 07:30 ABG O2 Content 11.1 % vol (15-22) L 06/15/16 07:30 ABG Base Excess -11.0 meq/l (-2-2) L* 06/15/16 07:30 CXR: left atelectasis, pulmonary vascular congestion Active Medications Brimonidine Tartrate (Alphagan 0.2% -) 1 drop OU BID [facility] Last Admin: 06/16/16 09:30 Dose: 1 drop Collagenase (Santyl -) 1 applic TP BID [facility] Last Admin: 06/16/16 09:30 Dose: 1 applic Heparin Sodium (Porcine) (Heparin -) 5,000 unit SQ BID [facility] Last Admin: 06/16/16 09:29 Dose: 5,000 unit Pantoprazole Sodium (Protonix 40mg Ivpb (Pre-Docked)) 100 mls @ 200 mls/hr IVPB BID@0600,1800 [facility] Last Admin: 06/16/16 06:28 Dose: 200 mls/hr Ascorbic Acid 1,000 mg/ Sodium (Chloride) 102 mls @ 102 mls/hr IVPB Q6H [facility] Stop: 06/17/16 08:59 Last Admin: 06/16/16 09:28 Dose: Not Given Dobutamine HCl 250,000 mcg/ (Sodium Chloride) 250 mls @ 31.98 mls/hr IV TITR [facility]; 5 MCG/KG/MIN PRN Reason: Protocol Last Admin: 06/16/16 11:44 Dose: 32 mls/hr Furosemide 100 mg/ Sodium (Chloride) 100 mls @ 5 mls/hr IVPB ASDIR [facility] Last Admin: 06/16/16 02:27 Dose: 5 mls/hr Insulin Aspart (Novolog Vial Sliding Scale -) 1 vial SQ ACHS [facility] PRN Reason: Protocol Last Admin: 06/16/16 11:43 Dose: 2 units Levothyroxine Sodium (Synthroid Injection -) 25 mcg IVPUSH AM [facility] Last Admin: 06/16/16 06:43 Dose: 25 mcg Sevelamer Carbonate (Renvela Powder Packet -) 0.8 gm PO TIDCM [facility] Last Admin: 06/16/16 11:45 Dose: 0.8 gm Sodium Bicarbonate (Sodium Bicarbonate -) 650 mg PO BID [facility] Last Admin: 06/16/16 09:30 Dose: 650 mg Thiamine HCl (Vitamin B1 Injection -) 200 mg IVPB Q12H [facility] Stop: 06/17/16 13:59 Last Admin: 06/16/16 02:26 Dose: 200 mg ASSESSMENT AND PLAN: Acute Respiratory Failure Left Atelectasis Back/Shoulder Cellulitis/Abscess Leg Ulcers Septic Shock Acute on Chronic Renal Failure Metabolic Acidosis Acute on Chronic LV Systolic Heart Failure Atrial Fibrillation COPD Hyponatremia - continue dobutamine/lasix gtts - keep net negative fluid balance - s/p antibiotic course - O2 to keep SpO2 >90% - aspiration precautions - inhaled bronchodilators - likely will need intubation and HD, to discuss with family goals of care - continue ICU monitoring - DVT prophylaxis
[2016-06-16] MEDS ORDERED: FUROSEMIDE INJECTION 100 MG in SODIUM CHLORIDE 90 ML IVPB SCH ×2 (13:01→16:45)
--- NOTE | 2016-06-16 13:01 | PN ---
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, Physician History of Present Illness: Pt seen and examined at bedside. He is awake however appears drowsy. He remains in the ICU. - Current Medication List Current Medications: Active Medications Brimonidine Tartrate (Alphagan 0.2% -) 1 drop OU BID [facility] Last Admin: 06/16/16 09:30 Dose: 1 drop Collagenase (Santyl -) 1 applic TP BID [facility] Last Admin: 06/16/16 09:30 Dose: 1 applic Heparin Sodium (Porcine) (Heparin -) 5,000 unit SQ BID [facility] Last Admin: 06/16/16 09:29 Dose: 5,000 unit Pantoprazole Sodium (Protonix 40mg Ivpb (Pre-Docked)) 100 mls @ 200 mls/hr IVPB BID@0600,1800 [facility] Last Admin: 06/16/16 06:28 Dose: 200 mls/hr Ascorbic Acid 1,000 mg/ Sodium (Chloride) 102 mls @ 102 mls/hr IVPB Q6H [facility] Stop: 06/17/16 08:59 Last Admin: 06/16/16 09:28 Dose: Not Given Dobutamine HCl 250,000 mcg/ (Sodium Chloride) 250 mls @ 31.98 mls/hr IV TITR [facility]; 5 MCG/KG/MIN PRN Reason: Protocol Last Admin: 06/16/16 11:44 Dose: 32 mls/hr Furosemide 100 mg/ Sodium (Chloride) 100 mls @ 5 mls/hr IVPB ASDIR [facility] Last Admin: 06/16/16 02:27 Dose: 5 mls/hr Insulin Aspart (Novolog Vial Sliding Scale -) 1 vial SQ ACHS [facility] PRN Reason: Protocol Last Admin: 06/16/16 11:43 Dose: 2 units Levothyroxine Sodium (Synthroid Injection -) 25 mcg IVPUSH AM [facility] Last Admin: 06/16/16 06:43 Dose: 25 mcg Sevelamer Carbonate (Renvela Powder Packet -) 0.8 gm PO TIDCM [facility] Last Admin: 06/16/16 11:45 Dose: 0.8 gm Sodium Bicarbonate (Sodium Bicarbonate -) 650 mg PO BID [facility] Last Admin: 06/16/16 09:30 Dose: 650 mg Thiamine HCl (Vitamin B1 Injection -) 200 mg IVPB Q12H [facility] Stop: 06/17/16 13:59 Last Admin: 06/16/16 02:26 Dose: 200 mg - Objective Vital Signs: Vital Signs Temperature 96.5 F L 06/16/16 10:38 Pulse Rate 90 06/16/16 11:44 Respiratory Rate 28 H 06/16/16 10:38 Blood Pressure 93/61 06/16/16 11:44 O2 Sat by Pulse Oximetry (%) 96 06/16/16 10:46 Constitutional: Yes: Calm Eyes: Yes: Conjunctiva Clear HENT: Yes: Atraumatic Cardiovascular: Yes: S1, S2 Respiratory: Yes: Diminished, On Venti-Mask Gastrointestinal: Yes: Soft, Abdomen, Obese Genitourinary: Yes: López Present Musculoskeletal: Yes: Muscle Weakness Edema: Yes Edema: LLE: 2+, RLE: 2+ Neurological: Yes: Oriented Psychiatric: Yes: Oriented Labs: CBC, BMP 06/16/16 05:20 06/16/16 05:20 INR, PTT INR 1.85 (0.82-1.09) H 06/11/16 05:15 Fibrinogen 405.0 mg/dL (238-498) 06/10/16 04:45 - ....Imaging Chest X-ray: Report Reviewed Problem List - Problems (1) Acute hyperkalemia Code(s): E87.5 - HYPERKALEMIA (2) Hyponatremia Code(s): E87.1 - HYPO-OSMOLALITY AND HYPONATREMIA (3) Hypotension Code(s): I95.9 - HYPOTENSION, UNSPECIFIED Qualifiers: Hypotension type: other hypotension type Qualified Code(s): I95.89 - Other hypotension (4) Acute on chronic renal failure Code(s): N17.9 - ACUTE KIDNEY FAILURE, UNSPECIFIED N18.9 - CHRONIC KIDNEY DISEASE, UNSPECIFIED (5) Anemia Code(s): D64.9 - ANEMIA, UNSPECIFIED Qualifiers: Other causes of anemia: chronic disease, kidney (6) COPD (chronic obstructive pulmonary disease) Code(s): J44.9 - CHRONIC OBSTRUCTIVE PULMONARY DISEASE, UNSPECIFIED (7) Congestive heart failure (CHF) Code(s): I50.9 - HEART FAILURE, UNSPECIFIED Qualifiers: Congestive heart failure type: systolic Congestive heart failure chronicity: chronic Qualified Code(s): I50.22 - Chronic systolic (congestive ) heart failure (8) DMII (diabetes mellitus, type 2) Code(s): E11.9 - TYPE 2 DIABETES MELLITUS WITHOUT COMPLICATIONS Qualifiers: Diabetes mellitus complication detail: with other kidney complication (9) CKD (chronic kidney disease) Code(s): N18.9 - CHRONIC KIDNEY DISEASE, UNSPECIFIED Assessment/Plan Current Medications Generic Name Dose Route Start Last Admin Trade Name Freq PRN Reason Stop Dose Admin Brimonidine Tartrate 1 drop 06/10/16 10:00 06/16/16 09:30 Alphagan 0.2% - OU 1 drop BID [facility] Administration Collagenase 1 applic 06/13/16 22:00 06/16/16 09:30 Santyl - TP 1 applic BID [facility] Administration Heparin Sodium (Porcine) 5,000 unit 06/14/16 10:30 06/16/16 09:29 Heparin - SQ 5,000 unit BID [facility] Administration Pantoprazole Sodium 100 mls @ 200 mls/hr 06/10/16 06:00 06/16/16 06:28 Protonix 40mg Ivpb (Pre-Docked) IVPB 200 mls/hr BID@0600,1800 [facility] Administration Ascorbic Acid 1,000 mg/ Sodium 102 mls @ 102 mls/hr 06/13/16 20:00 06/16/16 09: 28 Chloride IVPB 06/17/16 08:59 Not Given Q6H [facility] Dobutamine HCl 250,000 mcg/ 250 mls @ 31.98 mls/hr 06/15/16 11:00 06/16/16 11: 44 Sodium Chloride IV 32 mls/hr TITR [facility] Administration Protocol 5 MCG/KG/MIN Furosemide 100 mg/ Sodium 100 mls @ 5 mls/hr 06/15/16 13:00 06/16/16 02:27 Chloride IVPB 5 mls/hr ASDIR [facility] Administration Insulin Aspart 1 vial 06/10/16 16:30 06/16/16 11:43 Novolog Vial Sliding Scale - SQ 2 units ACHS [facility] Administration Protocol Levothyroxine Sodium 25 mcg 06/10/16 07:00 06/16/16 06:43 Synthroid Injection - IVPUSH 25 mcg AM [facility] Administration Sevelamer Carbonate 0.8 gm 06/15/16 12:50 06/16/16 11:45 Renvela Powder Packet - PO 0.8 gm TIDCM [facility] Administration Sodium Bicarbonate 650 mg 06/12/16 22:00 06/16/16 09:30 Sodium Bicarbonate - PO 650 mg BID [facility] Administration Thiamine HCl 200 mg 06/13/16 14:00 06/16/16 02:26 Vitamin B1 Injection - IVPB 06/17/16 13:59 200 mg Q12H [facility] Administration Laboratory Tests 06/11/16 13:00 Serum Total Protein 4.8 L Albumin 2.0 L Globulin 2.8 Albumin/Globulin Ratio 0.7 [id number] 0.4 Hycrb-8-Iobhzzmoc 0.6 Beta Globulins 0.8 Gamma Globulins 1.1 Impression 1. CASE on CKD 2. sepsis with shock 3. cellulitis/abscess of back 4. CHF acute 5. hypothyroidism 6. hyperlipidemia 7. COPD 8. htn 9. a-fib 10. hyponatremia - isoosmolar Plan - increase lasix drip to 10 - repeat labs in am - keep pt in negative balance - cont to monitor urine output - will evaluate daily for possible HD - sodium level is improving - potassium has stabilized - recommend to continue with diuretics for now - discussed with ICU team - cont pressors to a map of 65 - will follow Dr Martinez
--- NOTE | 2016-06-16 13:44 | PN ---
Physical Exam: SUBJECTIVE: Patient seen and examined patient is lying comfortably on bed, patient on bipap, spot 92. Patient in on dobutamin of 5 patient has decreased breath sound on right side edema decreased on leg, wrinkles present on dorsal aspect of foot. dressing not soaked. OBJECTIVE: Vital Signs Period Temp Pulse Resp BP Sys/Hubbard Pulse Ox Last 24 Hr 96 F-97.6 F 82-92 13-28 84-109/40-71 93-100 GENERAL: drowsy but arousable HEAD: Normal with no signs of trauma. EYES: Pupils equal, round and reactive to light, EARS, NOSE, THROAT: Ears normal, nares patent, oropharynx clear without exudates. moist mucous membranes. NECK no lymphadenopathy LUNGS: decrease breath sound on right side, ronchi on left side , on bipapa, pick line in situ. HEART: s1s2 normal, ABDOMEN: Soft, nontender, not distended, normoactive bowel sounds, no guarding, no rebound, no masses. scrotal and penile swelling present UPPER EXTREMITIES: 2+ pulses, warm, well-perfused. No cyanosis. No clubbing. Cap refill <2 seconds. No peripheral edema. LOWER EXTREMITIES: multiple ulcers resent on b/l lower limb, b/l pitting edema NEUROLOGICAL: unobtainable Laboratory Results - last 24 hr 06/11/16 06/14/16 06/15/16 05:15 18:42 05:36 WBC RBC Hgb Hct MCV MCHC RDW Plt Count MPV Sodium Potassium Chloride Carbon Dioxide Anion Gap BUN Creatinine Creat Clearance w eGFR POC Glucometer 137.56825 110.51861 Random Glucose Calcium Phosphorus Magnesium Total Bilirubin AST ALT Alkaline Phosphatase Total Protein Albumin Vitamin C 1.8 Blood Type Antibody Screen Crossmatch 06/15/16 06/15/16 06/15/16 11:53 15:45 20:50 WBC RBC Hgb Hct MCV MCHC RDW Plt Count MPV Sodium Potassium Chloride Carbon Dioxide Anion Gap BUN Creatinine Creat Clearance w eGFR POC Glucometer 183.84740 129.89387 118.04862 Random Glucose Calcium Phosphorus Magnesium Total Bilirubin AST ALT Alkaline Phosphatase Total Protein Albumin Vitamin C Blood Type Antibody Screen Crossmatch 06/16/16 06/16/16 06/16/16 05:20 05:20 06:22 WBC 13.2 H RBC 2.58 L Hgb 7.4 L D Hct 22.6 L MCV 87.7 MCHC 32.5 RDW 17.7 H Plt Count 110 L D MPV 9.1 Sodium 132 L Potassium 4.7 Chloride 99 Carbon Dioxide 18 L Anion Gap 15 BUN 112 H* Creatinine 4.4 H Creat Clearance w eGFR 13.14 POC Glucometer 95.69844 Random Glucose 64 L D Calcium 7.7 L Phosphorus 6.5 H Magnesium 1.9 Total Bilirubin 1.1 H AST 22 ALT 20 Alkaline Phosphatase 81 Total Protein 5.0 L Albumin 1.6 L Vitamin C Blood Type Antibody Screen Crossmatch 06/16/16 06/16/16 07:30 11:43 WBC RBC Hgb Hct MCV MCHC RDW Plt Count MPV Sodium Potassium Chloride Carbon Dioxide Anion Gap BUN Creatinine Creat Clearance w eGFR POC Glucometer [phone] Random Glucose Calcium Phosphorus Magnesium Total Bilirubin AST ALT Alkaline Phosphatase Total Protein Albumin Vitamin C Blood Type A POSITIVE Antibody Screen Negative Crossmatch See Detail Active Medications Generic Name Dose Route Start Last Admin Trade Name Freq PRN Reason Stop Dose Admin Brimonidine Tartrate 1 drop 06/10/16 10:00 06/16/16 09:30 Alphagan 0.2% - OU 1 drop BID SISI Administration Collagenase 1 applic 06/13/16 22:00 06/16/16 09:30 Santyl - TP 1 applic BID SISI Administration Heparin Sodium (Porcine) 5,000 unit 06/14/16 10:30 06/16/16 09:29 Heparin - SQ 5,000 unit BID SISI Administration Pantoprazole Sodium 100 mls @ 200 mls/hr 06/10/16 06:00 06/16/16 06:28 Protonix 40mg Ivpb (Pre-Docked) IVPB 200 mls/hr BID@0600,1800 SISI Administration Ascorbic Acid 1,000 mg/ Sodium 102 mls @ 102 mls/hr 06/13/16 20:00 06/16/16 13: 01 Chloride IVPB 06/17/16 08:59 102 mls/hr Q6H SISI Administration Dobutamine HCl 250,000 mcg/ 250 mls @ 31.98 mls/hr 06/15/16 11:00 06/16/16 11: 44 Sodium Chloride IV 32 mls/hr TITR SISI Administration Protocol 5 MCG/KG/MIN Furosemide 100 mg/ Sodium 100 mls @ 10 mls/hr 06/16/16 13:01 Chloride IVPB ASDIR SISI Insulin Aspart 1 vial 06/10/16 16:30 06/16/16 11:43 Novolog Vial Sliding Scale - SQ 2 units ACHS SISI Administration Protocol Levothyroxine Sodium 25 mcg 06/10/16 07:00 06/16/16 06:43 Synthroid Injection - IVPUSH 25 mcg AM SISI Administration Sevelamer Carbonate 0.8 gm 06/15/16 12:50 06/16/16 11:45 Renvela Powder Packet - PO 0.8 gm TIDCM SISI Administration Sodium Bicarbonate 650 mg 06/12/16 22:00 06/16/16 09:30 Sodium Bicarbonate - PO 650 mg BID SISI Administration Thiamine HCl 200 mg 06/13/16 14:00 06/16/16 13:01 Vitamin B1 Injection - IVPB 06/17/16 13:59 200 mg Q12H SISI Administration ASSESSMENT/PLAN: shock secondary to sepsis monitor vitals monitor intake/ output id consult appreciated follow abg in morning on dobutamin drip blood culture no growth urine culture no growth patient drowsy but arrousable, will repeat abg antibiotics as per id hyponatremia improving Na 132 monitor sodium increas 0.5 to 1 meq/hr not more than 12 meq in 24 hour patient drowsy could be due to metabolic encephalopathy abdiaziz on ckd avoid nephrotoxic drugs avoid iv fluid nephrology consult appreciated on Lasix drip 10mg/hr monitor creatinine, bun, k Acute respiratory failure with left side atelectasis on bipap keep spo2 over 90 duoneb nebulizer take aspiration precautions Hyperkalemia K decreased to 4.7 monitor K acute on chronic LV heart failure avoid Iv fluid daily weight maintain negative balance. 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 dvt pro on heparin gi pro : on protonix condition of patient explained to patient niece, patient is full code. dispo : admit in icu Visit type - Emergency Visit Emergency Visit: Yes ED Registration Date: 06/10/16 Care time: The patient presented to the Emergency Department on the above date and was hospitalized for further evaluation of their emergent condition. - New Patient This patient is new to me today: No - Critical Care Critical Care patient: Yes Total Critical Care Time (in minutes): 45 Critical Care Statement: The care of this patient involved high complexity decision making to prevent further life threatening deterioration of the patient 's condition and/or to evalute & treat vital organ system(s) failure or risk of failure.
[2016-06-16] MEDS ORDERED: FUROSEMIDE 40 MG/4 ML INJECTABLE VIAL IVPUSH ONE (13:47)
[2016-06-16 14:30] LABS: ARTERIAL BLD GAS O2 SATURATION 86.5 % (90-98.9); ARTERIAL BLOOD GAS BASE EXCESS -10.4 meq/l (-2-2); ARTERIAL BLOOD GAS HCO3 16.7 meq/L (22-26); ARTERIAL BLOOD GAS PO2 63.1 mmHg (70-100)
[2016-06-16 14:33] LABS: ALLENS TEST POSITIVE; ART PUNCT SITE LEFT RADIAL; LPM/O2% 80%; MECH. VENT. Y; PT. ON O2? YES; TYPE OF O2 BIPAP
[2016-06-16 14:34] LABS: VENT RATE 16
[2016-06-16] MEDS ORDERED: PT OWN MED DRAWER 7, Y5N ONE (15:27)
--- NOTE | 2016-06-16 17:21 | PN ---
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 - Current Medication List Current Medications: Active Medications Brimonidine Tartrate (Alphagan 0.2% -) 1 drop OU BID [facility] Last Admin: 06/16/16 09:30 Dose: 1 drop Collagenase (Santyl -) 1 applic TP BID [facility] Last Admin: 06/16/16 09:30 Dose: 1 applic Heparin Sodium (Porcine) (Heparin -) 5,000 unit SQ BID [facility] Last Admin: 06/16/16 09:29 Dose: 5,000 unit Pantoprazole Sodium (Protonix 40mg Ivpb (Pre-Docked)) 100 mls @ 200 mls/hr IVPB BID@0600,1800 [facility] Last Admin: 06/16/16 17:10 Dose: 200 mls/hr Ascorbic Acid 1,000 mg/ Sodium (Chloride) 102 mls @ 102 mls/hr IVPB Q6H [facility] Stop: 06/17/16 08:59 Last Admin: 06/16/16 13:01 Dose: 102 mls/hr Dobutamine HCl 250,000 mcg/ (Sodium Chloride) 250 mls @ 31.98 mls/hr IV TITR SISI; 5 MCG/KG/MIN PRN Reason: Protocol Last Admin: 06/16/16 11:44 Dose: 32 mls/hr Furosemide 100 mg/ Sodium (Chloride) 100 mls @ 10 mls/hr IVPB ASDIR [facility] Last Admin: 06/16/16 14:00 Dose: 10 mls/hr Insulin Aspart (Novolog Vial Sliding Scale -) 1 vial SQ ACHS [facility] PRN Reason: Protocol Last Admin: 06/16/16 16:19 Dose: Not Given Levothyroxine Sodium (Synthroid Injection -) 25 mcg IVPUSH AM [facility] Last Admin: 06/16/16 06:43 Dose: 25 mcg Sevelamer Carbonate (Renvela Powder Packet -) 0.8 gm PO TIDCM [facility] Last Admin: 06/16/16 17:10 Dose: Not Given Sodium Bicarbonate (Sodium Bicarbonate -) 650 mg PO BID [facility] Last Admin: 06/16/16 09:30 Dose: 650 mg Thiamine HCl (Vitamin B1 Injection -) 200 mg IVPB Q12H [facility] Stop: 06/17/16 13:59 Last Admin: 06/16/16 13:01 Dose: 200 mg - Objective Vital Signs: Vital Signs Temperature 97.7 F 06/16/16 16:00 Pulse Rate 88 06/16/16 16:00 Respiratory Rate 22 06/16/16 16:00 Blood Pressure 113/70 06/16/16 16:00 O2 Sat by Pulse Oximetry (%) 95 06/16/16 16:54 Constitutional: Yes: No Distress Eyes: Yes: Other (eyes closed -. opens on command) Cardiovascular: Yes: Regular Rate and Rhythm (with ectopy) Respiratory: Yes: Rhonchi Gastrointestinal: Yes: Normal Bowel Sounds, Soft, Abdomen, Obese Edema: Yes Edema: LUE: 1+, RUE: 1+, LLE: Trace, RLE: Trace Peripheral Pulses WNL: Yes (diminished) Labs: CBC, BMP 06/16/16 05:20 06/16/16 05:20 INR, PTT INR 1.85 (0.82-1.09) H 06/11/16 05:15 Fibrinogen 405.0 mg/dL (238-498) 06/10/16 04:45 Assessment/Plan 76 yo male with known CAD, prior MT (mild diffuse prox RCA disease, no intervention), paroxysmal atrial fib/flutter (on Eliquis), HFrEF (severely reduced LV systolic function per 04/14/16 echo), HTN, DM, CKD, hyperlipidemia, who was recently hospitalized at [facility] from 05/23-06/02/16 for cellulitis/abscess of left shoulder and lower extremities, and bacteremia. Now admitted with septic shock, acute on chronic renal failure, hyperkalemia, and anemia requiring pressor and inotropic support (NE and DBT) currently on low dose of NE. Possible HCAP? Multiple skin ulcers - skin infection. 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 Renal function unchanged. Wt about same RECS: Continue dobutamine gtt to help with cardiac output as a temporary measure in an effort to help improve renal perfusion and aid in diuresis while on lasix gtt. Monitor for potential tachyarrhythmias with dobutamine gtt. If no significant improvement in renal function/urine output, may need to consider hemodialysis. Would continue to hold anticoagulation for afib given anemia. Anemia work up by primary team. Strict I&O. Daily weight. Further recs as per ICU team, nephrology, and ID service.
[2016-06-16] MEDS ORDERED: ETOMIDATE 20 MG/10 ML AMPUL IVPUSH ONE (18:07)
[2016-06-16] MEDS ORDERED: SUCCINYLCHOLINE CHLORIDE 200 MG/10 ML VIAL ONE (18:07)
[2016-06-16] MEDS ORDERED: RAPID SEQUENCE INTUBATION KIT NR ONE (18:08)
--- NOTE | 2016-06-16 18:34 | PROC ---
Intubation - Intubation Reason for Intubation: Respiratory Insufficiency, Airway Protection Time of Intubation: 18:15 Intubation Method: orotracheal Blade used: Mac (4) Tube Size (cm): 8.0 Tube position @ lip (cm): 24 Tube position confirmed by: Direct visualization, CO2 detector, Chest x-ray ( pending), Breath sounds Breath Sounds after Intubation: equal Post Intubation Xray: Yes (pending) Remarks: Called for emergent intubation. Pt spontaneously breathing with BiPAP mask on. SaO2 88% on monitor. Equipment available. Bag mask ventilation started assisting spontaneous breaths. Head of bed at approximate 30 degree incline. Rapid sequence induction performed: Etomidate 16 mg IV push immediately followed by Succinylcholine 120 mg IV push administered. Direct laryngoscopy with MAC 4 x 1 attempt yielded CL grade 2A view. 8.0 endotracheal tube passed through vocal cords under direct visualization to 24 cm depth at lip and cuff inflated to minimal occlusive pressure with 9 ml of air. CO2 detector color change to yellow, breath sounds equal bilaterally with bilateral chest rise with bag ventilation. 16 Occitan orogastric tube placed into stomach and put on suction with return of 500 ml of light brown/beige fluid and then capped. CXR pending. BP and HR normal throughout, SaO2 to 100% on FiO2 100%.
[2016-06-16] MEDS: PROPOFOL 100 ML IVPB SCH (18:43)
[2016-06-16] MEDS ORDERED: FUROSEMIDE 100 MG/10 ML INJECTABLE VIAL ONE (19:59)
[2016-06-16 20:13] LABS: ARTERIAL BLD GAS O2 SATURATION 99.5 % (90-98.9); ARTERIAL BLOOD GAS HCO3 15.4 meq/L (22-26)
[2016-06-16 20:14] LABS: ALLENS TEST POSITIVE
[2016-06-16 20:15] LABS: ART PUNCT SITE LEFT BRACHIAL; LPM/O2% 100; MECH. VENT. YES; PT. ON O2? YES; TYPE OF O2 MECH. VENT; VT/PRESS 600
[2016-06-16 20:16] LABS: ARTERIAL BLOOD GAS pH 7.23 (7.35-7.45); VENT RATE 12
[2016-06-16] MEDS: FENTANYL INJECTION 500 MCG in DEXTROSE 5%-WATER - 90 ML IJ SCH (21:44)
[2016-06-17] MEDS: ASCORBIC ACID IVPB SCH ×2 (02:34→09:00)
[2016-06-17] MEDS: SODIUM CHLORIDE IVPB SCH ×2 (02:34→09:00)
[2016-06-17] MEDS: THIAMINE HCL 200 MG/2 ML VIAL IVPB SCH (02:34)
--- NOTE | 2016-06-17 05:25 | PN ---
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 (short form) - Note 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: Pt lasix drip titrated to 5mg/hr due to borderline hypotension (84/57).
[2016-06-17 06:16] LABS: BASOPHIL 0.5 % (0-2.0); EOSINOPHIL 0.1 % (0-4.5); MCH 28.3 pg (25.7-33.7); MCHC 32.1 g/dl (32.0-35.9); MEAN CELL VOLUME 88.1 fl (80-96); RDW 17.2 % (11.9-15.9); WHITE BLOOD COUNT 15.5 K/mm3 (4.0-10.0)
[2016-06-17] MEDS: FUROSEMIDE INJECTION 100 MG in SODIUM CHLORIDE 90 ML IVPB SCH ×2 (06:17→11:37)
[2016-06-17] MEDS: LEVOTHYROXINE SODIUM 100 MCG VIAL IVPUSH SCH (06:19)
[2016-06-17] MEDS: INSULIN SLIDING SCALE (NOVOLOG) 1 VIAL SQ SCH ×4 (06:19→22:02)
[2016-06-17] MEDS: PANTOPRAZOLE SODIUM 100 ML IVPB SCH ×2 (06:19→17:32)
[2016-06-17] MEDS: DOBUTAMINE HCL 250,000 MCG in SODIUM CHLORIDE 230 ML IV SCH ×2 (06:30→15:30)
[2016-06-17] MEDS: FENTANYL INJECTION 500 MCG in DEXTROSE 5%-WATER - 90 ML IJ SCH ×2 (06:32→17:31)
[2016-06-17 06:48] LABS: ALBUMIN 1.5 g/dl (3.4-5.0); BILIRUBIN,TOTAL 1.1 mg/dL (0.2-1.0); CREATININE 4.6 mg/dL (0.7-1.3); MAGNESIUM 1.8 mg/dL (1.8-2.4); TOT PROT 4.7 g/dl (6.4-8.2)
[2016-06-17] MEDS ORDERED: PT OWN MED DRAWER 7, Y5N ONE ×2 (07:13→10:38)
[2016-06-17 07:29] LABS: PLATELET COUNT 87 K/MM3 (134-434)
[2016-06-17 07:36] LABS: ALLENS TEST POSITIVE; ART PUNCT SITE RIGHT RADIAL; ARTERIAL BLD GAS O2 SATURATION 99.8 % (90-98.9); ARTERIAL BLOOD GAS HCO3 16.1 meq/L (22-26); LPM/O2% 60%; MECH. VENT. YES; PT. ON O2? YES; TYPE OF O2 MECHANICAL VENT; VT/PRESS 475ML
[2016-06-17 07:37] LABS: VENT RATE 16
[2016-06-17] MEDS: SEVELAMER CARBONATE 0.8 GM POWDER PACKET PO SCH ×3 (10:41→17:32)
[2016-06-17] MEDS: BRIMONIDINE TARTRATE 0.2% OPHTHALMIC 5 ML BOTTLE OU SCH ×2 (10:41→22:00)
[2016-06-17] MEDS: SODIUM BICARBONATE 650 MG TABLET PO SCH ×2 (10:42→21:59)
[2016-06-17] MEDS: HEPARIN NA (PORCINE) 5,000 UNITS/ML 1ML VIAL SQ SCH (10:42)
[2016-06-17] MEDS ORDERED: FUROSEMIDE INJECTION 100 MG in SODIUM CHLORIDE 90 ML IVPB SCH ×2 (11:45→13:45)
--- NOTE | 2016-06-17 12:14 | PN ---
Teaching Attending Note Name of Resident: Patricio Andrade ATTENDING PHYSICIAN STATEMENT I saw and evaluated the patient. I reviewed the resident's note and discussed the case with the resident. I agree with the resident's findings and plan as documented. SUBJECTIVE: Pt seen and examined in the ICU. Intubated yesterday for worsening respiratory distress and altered mental status. OBJECTIVE: Last Vital Signs Temp Pulse Resp BP Pulse Ox 99.3 F 94 H 18 102/34 97 06/17/16 11:00 06/17/16 11:00 06/17/16 11:40 06/17/16 11:00 06/17/16 09:25 Intake & Output 06/14/16 06/15/16 06/16/16 06/17/16 23:59 23:59 23:59 23:59 Intake Total 1259 1626 2348 663.6 Output Total 842 760 5063 500 Balance 587 247 6045 163.6 Weight 237 lb 7.005 oz 235 lb 0.204 oz 236 lb 1.841 oz 235 lb 7.259 oz Gen: intubated, arousable Heart: RRR Lung: bilateral rhonchi Abd: soft, nontender Ext: + edema CBC, BMP 06/17/16 05:05 06/17/16 05:05 Active Medications Brimonidine Tartrate (Alphagan 0.2% -) 1 drop OU BID [facility] Last Admin: 06/17/16 10:41 Dose: 1 drop Collagenase (Santyl -) 1 applic TP BID [facility] Last Admin: 06/16/16 22:35 Dose: 1 applic Pantoprazole Sodium (Protonix 40mg Ivpb (Pre-Docked)) 100 mls @ 200 mls/hr IVPB BID@0600,1800 [facility] Last Admin: 06/17/16 06:19 Dose: 200 mls/hr Dobutamine HCl 250,000 mcg/ (Sodium Chloride) 250 mls @ 31.98 mls/hr IV TITR SISI; 5 MCG/KG/MIN PRN Reason: Protocol Last Admin: 06/17/16 06:30 Dose: 31.98 mls/hr Propofol (Diprivan -) 100 mls @ 3.213 mls/hr IVPB TITR SISI; 5 MCG/KG/MIN PRN Reason: Protocol Last Admin: 06/16/16 18:43 Dose: 3.213 mls/hr Fentanyl 500 mcg/ Dextrose 100 mls @ 10 mls/hr IJ TITR SISI PRN Reason: 50 MCG/HR Last Admin: 06/17/16 06:32 Dose: 10 mls/hr Furosemide 100 mg/ Sodium (Chloride) 100 mls @ 10 mls/hr IVPB ASDIR [facility] Insulin Aspart (Novolog Vial Sliding Scale -) 1 vial SQ ACHS [facility] PRN Reason: Protocol Last Admin: 06/17/16 06:19 Dose: Not Given Levothyroxine Sodium (Synthroid Injection -) 25 mcg IVPUSH AM [facility] Last Admin: 06/17/16 06:19 Dose: 25 mcg Sevelamer Carbonate (Renvela Powder Packet -) 0.8 gm PO TIDCM [facility] Last Admin: 06/17/16 10:41 Dose: 0.8 gm Sodium Bicarbonate (Sodium Bicarbonate -) 650 mg PO BID [facility] Last Admin: 06/17/16 10:42 Dose: 650 mg Thiamine HCl (Vitamin B1 Injection -) 200 mg IVPB Q12H [facility] Stop: 06/17/16 13:59 Last Admin: 06/17/16 02:34 Dose: 200 mg ASSESSMENT AND PLAN: Acute Respiratory Failure Left Atelectasis Back/Shoulder Cellulitis/Abscess Leg Ulcers Septic Shock Acute on Chronic Renal Failure Metabolic Acidosis Acute on Chronic LV Systolic Heart Failure Atrial Fibrillation COPD Hyponatremia - continue dobutamine/lasix gtts - start levophed gtt if hypotensive - keep net negative fluid balance - may need HD - s/p antibiotic course - O2 to keep SpO2 >90% - aspiration precautions - inhaled bronchodilators - continue ICU monitoring - DVT prophylaxis
--- NOTE | 2016-06-17 12:24 | PN ---
Physical Exam: SUBJECTIVE: Patient seen and examined patient was intubated yesterday patient intubated and sedated on fentanyl and propofol on dobutamin 5 bp 102/52 spo2 100 on fio2 50, peep 5, tv 475, rr 16 patient platelets decreased, send hit antibody, stop heparin increase lasix to 10 OBJECTIVE: Vital Signs Period Temp Pulse Resp BP Sys/Hubbard Pulse Ox Last 24 Hr 96.2 F-99.4 F 82-96 12-23 94-121/34-80 93-99 GENERAL:intubated and sedated HEAD: Normal with no signs of trauma. EYES: Pupils equal, round and reactive to light, NECK no lymphadenopathy LUNGS:b/l air entry present, diffuse ronchi, no wheez HEART: s1s2 normal, ABDOMEN: Soft, nontender, not distended, normoactive bowel sounds, no guarding, no rebound, no masses. scrotal and penile swelling present UPPER EXTREMITIES: 2+ pulses, warm, well-perfused. No cyanosis. No clubbing. Cap refill <2 seconds. . LOWER EXTREMITIES: multiple ulcers resent on b/l lower limb, b/l pitting edema + + NEUROLOGICAL: unobtainable Laboratory Results - last 24 hr 06/16/16 06/16/16 06/16/16 11:43 14:31 15:23 WBC RBC Hgb Hct MCV MCHC RDW Plt Count MPV Neutrophils % Lymphocytes % Monocytes % Eosinophils % Basophils % Differential Comment Platelet Comment Puncture Site Left radial ABG pH 7.20 L* ABG pCO2 at Pt Temp 45.0 D ABG pO2 at Pt Temp 63.1 L D ABG HCO3 16.7 L ABG O2 Sat (Measured) 86.5 L ABG O2 Content 11.0 L ABG Base Excess -10.4 L* Frankie Test Positive O2 Delivery Device Bipap Oxygen Flow Rate 80% Vent Mode 12/6 Vent Rate 16 Mechanical Rate Y PEEP Pressure Support Vent Sodium Potassium Chloride Carbon Dioxide Anion Gap BUN Creatinine Creat Clearance w eGFR POC Glucometer 155.06439 103.57913 Random Glucose Calcium Phosphorus Magnesium Total Bilirubin AST ALT Alkaline Phosphatase Total Protein Albumin 06/16/16 06/16/16 06/17/16 19:00 20:41 05:05 WBC 15.5 H RBC 2.65 L Hgb 7.5 L Hct 23.3 L MCV 88.1 MCHC 32.1 RDW 17.2 H Plt Count 87 L D MPV 8.0 D Neutrophils % 93.0 H Lymphocytes % 1.3 L Monocytes % 5.1 Eosinophils % 0.1 Basophils % 0.5 Differential Comment Slide scanned Platelet Comment Marked plt clumping Puncture Site Left brachial ABG pH 7.23 L* ABG pCO2 at Pt Temp 38.5 ABG pO2 at Pt Temp 174.0 H* D ABG HCO3 15.4 L ABG O2 Sat (Measured) 99.5 H ABG O2 Content 12.4 L ABG Base Excess -11.0 L* Frankie Test Positive O2 Delivery Device Mech. vent Oxygen Flow Rate 100 Vent Mode A/c Vent Rate 12 Mechanical Rate Yes PEEP 5.0 Pressure Support Vent 600 Sodium Potassium Chloride Carbon Dioxide Anion Gap BUN Creatinine Creat Clearance w eGFR POC Glucometer 137.11654 Random Glucose Calcium Phosphorus Magnesium Total Bilirubin AST ALT Alkaline Phosphatase Total Protein Albumin 06/17/16 06/17/16 05:05 07:30 WBC RBC Hgb Hct MCV MCHC RDW Plt Count MPV Neutrophils % Lymphocytes % Monocytes % Eosinophils % Basophils % Differential Comment Platelet Comment Puncture Site Right radial ABG pH 7.30 L ABG pCO2 at Pt Temp 33.6 L ABG pO2 at Pt Temp 171.0 H* ABG HCO3 16.1 L ABG O2 Sat (Measured) 99.8 H* ABG O2 Content 12.2 L ABG Base Excess -9.0 L Frankie Test Positive O2 Delivery Device Mechanical vent Oxygen Flow Rate 60% Vent Mode A/c Vent Rate 16 Mechanical Rate Yes PEEP 5.0 Pressure Support Vent 475ml Sodium 132 L Potassium 4.7 Chloride 97 L Carbon Dioxide 19 L Anion Gap 16 BUN 115 H* Creatinine 4.6 H Creat Clearance w eGFR 12.49 POC Glucometer Random Glucose 72 L Calcium 8.0 L Phosphorus 7.0 H Magnesium 1.8 Total Bilirubin 1.1 H AST 18 ALT 17 Alkaline Phosphatase 81 Total Protein 4.7 L Albumin 1.5 L Active Medications Generic Name Dose Route Start Last Admin Trade Name Freq PRN Reason Stop Dose Admin Brimonidine Tartrate 1 drop 06/10/16 10:00 06/17/16 10:41 Alphagan 0.2% - OU 1 drop BID SISI Administration Collagenase 1 applic 06/13/16 22:00 06/16/16 22:35 Santyl - TP 1 applic BID SISI Administration Pantoprazole Sodium 100 mls @ 200 mls/hr 06/10/16 06:00 06/17/16 06:19 Protonix 40mg Ivpb (Pre-Docked) IVPB 200 mls/hr BID@0600,1800 S[facility]I Administration Dobutamine HCl 250,000 mcg/ 250 mls @ 31.98 mls/hr 06/15/16 11:00 06/17/16 06: 30 Sodium Chloride IV 31.98 mls/hr TITR SISI Administration Protocol 5 MCG/KG/MIN Propofol 100 mls @ 3.213 mls/hr 06/16/16 18:30 06/16/16 18:43 Diprivan - IVPB 3.213 mls/hr TITR SISI Administration Protocol 5 MCG/KG/MIN Fentanyl 500 mcg/ Dextrose 100 mls @ 10 mls/hr 06/16/16 21:15 06/17/16 06:32 IJ 10 mls/hr TITR SISI Administration 50 MCG/HR Furosemide 100 mg/ Sodium 100 mls @ 10 mls/hr 06/17/16 11:45 Chloride IVPB ASDIR [facility] Insulin Aspart 1 vial 06/10/16 16:30 06/17/16 06:19 Novolog Vial Sliding Scale - SQ Not Given ACHS [facility]I Protocol Levothyroxine Sodium 25 mcg 06/10/16 07:00 06/17/16 06:19 Synthroid Injection - IVPUSH 25 mcg AM [facility] Administration Sevelamer Carbonate 0.8 gm 06/15/16 12:50 06/17/16 10:41 Renvela Powder Packet - PO 0.8 gm TIDCM [facility]I Administration Sodium Bicarbonate 650 mg 06/12/16 22:00 06/17/16 10:42 Sodium Bicarbonate - PO 650 mg BID SISI Administration Thiamine HCl 200 mg 06/13/16 14:00 06/17/16 02:34 Vitamin B1 Injection - IVPB 06/17/16 13:59 200 mg Q12H SISI Administration ABG Results ABG pH 7.30 (7.35-7.45) L 06/17/16 07:30 ABG pCO2 at Pt Temp 33.6 mmHg (35-45) L 06/17/16 07:30 ABG pO2 at Pt Temp 171.0 mmHg (70-100) H* 06/17/16 07:30 ABG HCO3 16.1 meq/L (22-26) L 06/17/16 07:30 ABG O2 Sat (Measured) 99.8 % (90-98.9) H* 06/17/16 07:30 ABG O2 Content 12.2 % vol (15-22) L 06/17/16 07:30 ABG Base Excess -9.0 meq/l (-2-2) L 06/17/16 07:30 Microbiology 06/09/16 23:00 Blood - Peripheral Venous Blood Culture - Final NO GROWTH AFTER 5 DAYS INCUBATION 06/09/16 23:00 Blood - Peripheral Venous Blood Culture - Final NO GROWTH AFTER 5 DAYS INCUBATION 06/10/16 04:30 Shoulder - Left Gram Stain - Final 06/10/16 04:30 Shoulder - Left Wound Culture - Final S Aureus Staphylococcus Coagulase Neg Yeast Like Organism 06/10/16 00:20 Urine - Urine López Urine Culture - Final NO GROWTH OBTAINED 06/10/16 05:30 Urine For Antigen Detection Legionella Antigen - Final 06/10/16 05:30 Urine For Antigen Detection Streptococcus pneumoniae Antigen (M - Final 06/10/16 04:30 Nasopharyngeal Swab Respiratory Virus Panel - Preliminary 06/10/16 04:30 Nasopharyngeal Swab Influenza Types A,B Antigen (ANH) - Final 06/10/16 04:30 Nasopharyngeal Swab - Final Intake & Output 06/14/16 06/15/16 06/16/16 06/17/16 23:59 23:59 23:59 23:59 Intake Total 1259 1626 2348 663.6 Output Total 096 596 6506 500 Balance 206 479 9086 163.6 Weight 107.7 kg 106.6 kg 107.1 kg 106.8 kg ASSESSMENT/PLAN: shock secondary to sepsis monitor vitals monitor intake/ output, maintain negative balance 2348/1050 follow abg in morning on dobutamin drip. If become hypotensive consider starting levophed blood culture no growth urine culture no growth antibiotics as per id hyponatremia improving Na 132 monitor sodium increas 0.5 to 1 meq/hr not more than 12 meq in 24 hour abdiaziz on ckd cr 4.6, bun 115 avoid nephrotoxic drugs avoid iv fluid nephrology consult appreciated on Lasix drip 10mg/hr monitor creatinine, bun, k Acute respiratory failure with left side atelectasis intubated, sedated, left side atelectasis improved keep spo2 over 90 duoneb nebulizer take aspiration precautions Hyperkalemia K stable to 4.7 monitor K acute on chronic LV heart failure avoid Iv fluid daily weight maintain negative balance. on iV lasix drip at 10mg/hr monitor IO LV systolic function severly reduced, LV global hypokinesia lactic acidosis improved hypothermia on hector hugger h/o cad, A flutter/ fibrillation , chf, global hypokinesia alaquis on hold due to anemia, cardiology on case last echo on 06/10 ef 28 and global hypokinesia anemia hb 7.5 follow stool for occult blood h/o copd not active on duoneb DM on sliding scale follow bgm h/o hypothyroid on synthyroid fluid ; avoid fluid electrolyte ; repeat in am nutrition ; tube feed dvt pro heparin d/c due to thrombocytopenia. Follow HIT antibody gi pro : on protonix patient is full code. dispo : admit in icu Visit type - Emergency Visit Emergency Visit: Yes ED Registration Date: 06/10/16 Care time: The patient presented to the Emergency Department on the above date and was hospitalized for further evaluation of their emergent condition. - New Patient This patient is new to me today: No - Critical Care Critical Care patient: Yes Total Critical Care Time (in minutes): 45 Critical Care Statement: The care of this patient involved high complexity decision making to prevent further life threatening deterioration of the patient 's condition and/or to evalute & treat vital organ system(s) failure or risk of failure.
[2016-06-17] MEDS ORDERED: DEXTROSE ONE (12:50)
[2016-06-17] MEDS ORDERED: DOBUTAMINE ONE (12:50)
--- NOTE | 2016-06-17 13:42 | PN ---
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, Physician History of Present Illness: Patient currently on lasix gtt. Patient was intubated last evening. - Current Medication List Current Medications: Active Medications Brimonidine Tartrate (Alphagan 0.2% -) 1 drop OU BID [facility] Last Admin: 06/17/16 10:41 Dose: 1 drop Collagenase (Santyl -) 1 applic TP BID [facility] Last Admin: 06/16/16 22:35 Dose: 1 applic Pantoprazole Sodium (Protonix 40mg Ivpb (Pre-Docked)) 100 mls @ 200 mls/hr IVPB BID@0600,1800 [facility] Last Admin: 06/17/16 06:19 Dose: 200 mls/hr Dobutamine HCl 250,000 mcg/ (Sodium Chloride) 250 mls @ 31.98 mls/hr IV TITR [facility]; 5 MCG/KG/MIN PRN Reason: Protocol Last Admin: 06/17/16 06:30 Dose: 31.98 mls/hr Propofol (Diprivan -) 100 mls @ 3.213 mls/hr IVPB TITR [facility]; 5 MCG/KG/MIN PRN Reason: Protocol Last Admin: 06/16/16 18:43 Dose: 3.213 mls/hr Fentanyl 500 mcg/ Dextrose 100 mls @ 10 mls/hr IJ TITR [facility] PRN Reason: 50 MCG/HR Last Admin: 06/17/16 06:32 Dose: 10 mls/hr Furosemide 100 mg/ Sodium (Chloride) 100 mls @ 10 mls/hr IVPB ASDIR [facility] Insulin Aspart (Novolog Vial Sliding Scale -) 1 vial SQ ACHS [facility] PRN Reason: Protocol Last Admin: 06/17/16 06:19 Dose: Not Given Levothyroxine Sodium (Synthroid Injection -) 25 mcg IVPUSH AM [facility] Last Admin: 06/17/16 06:19 Dose: 25 mcg Sevelamer Carbonate (Renvela Powder Packet -) 0.8 gm PO TIDCM [facility] Last Admin: 06/17/16 10:41 Dose: 0.8 gm Sodium Bicarbonate (Sodium Bicarbonate -) 650 mg PO BID [facility] Last Admin: 06/17/16 10:42 Dose: 650 mg Thiamine HCl (Vitamin B1 Injection -) 200 mg IVPB Q12H [facility] Stop: 06/17/16 13:59 Last Admin: 06/17/16 02:34 Dose: 200 mg - Objective Vital Signs: Vital Signs Temperature 98.8 F 06/17/16 13:00 Pulse Rate 92 H 06/17/16 13:00 Respiratory Rate 14 06/17/16 13:00 Blood Pressure 78/62 06/17/16 13:00 O2 Sat by Pulse Oximetry (%) 97 06/17/16 09:25 Eyes: Yes: Conjunctiva Clear, EOM Intact HENT: Yes: Atraumatic, Normocephalic Neck: Yes: Supple, Trachea Midline Cardiovascular: Yes: Regular Rate and Rhythm Respiratory: Yes: Diminished (at bases), Intubated, Mechanically Ventilated Edema: Yes Edema: LLE: 3+, RLE: 3+ Labs: CBC, BMP 06/17/16 05:05 06/17/16 05:05 INR, PTT INR 1.85 (0.82-1.09) H 06/11/16 05:15 Fibrinogen 405.0 mg/dL (238-498) 06/10/16 04:45 Assessment/Plan 76 yo male with known CAD, prior PA (mild diffuse prox RCA disease, no intervention), paroxysmal atrial fib/flutter (on Eliquis), HFrEF (severely reduced LV systolic function per 04/14/16 echo), HTN, DM, CKD, hyperlipidemia, who was recently hospitalized at [facility] from 05/23-06/02/16 for cellulitis/abscess of left shoulder and lower extremities, and bacteremia. Now admitted with septic shock, acute on chronic renal failure, hyperkalemia, and anemia requiring pressor and inotropic support (NE and DBT) currently on low dose of NE. Possible HCAP? Multiple skin ulcers - skin infection. Currently on lasix gtt and dobutamine gtt. RECS: Started on dobutamine gtt 5 mcg/kg/min on Thursday and levophed gtt was discontinued. Currently with low BP. May increase dobutamine to 10 mcg/kg/min if needed to help augment BP given low SBP 70s currently. Would also try to minimize fentanyl since this is likely contributing to current hypotension. Would also resume levophed gtt to maintain BP. Will need to monitor for potential tachyarrhythmias with dobutamine gtt. Patient may need to start hemodialysis in near future. Continue to hold anticoagulation for afib given anemia. Strict I&O. Daily weight. Further recs as per ICU team, nephrology, and ID service. Please call with questions.
--- NOTE | 2016-06-17 14:21 | PN ---
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, Physician History of Present Illness: Pt seen and examined at bedside. He was intubated last night. Pt remains hypotensive. Lasix was decreased last nigh secondary to hypotension. - Current Medication List Current Medications: Active Medications Brimonidine Tartrate (Alphagan 0.2% -) 1 drop OU BID [facility] Last Admin: 06/17/16 10:41 Dose: 1 drop Collagenase (Santyl -) 1 applic TP BID [facility] Last Admin: 06/16/16 22:35 Dose: 1 applic Pantoprazole Sodium (Protonix 40mg Ivpb (Pre-Docked)) 100 mls @ 200 mls/hr IVPB BID@0600,1800 [facility] Last Admin: 06/17/16 06:19 Dose: 200 mls/hr Dobutamine HCl 250,000 mcg/ (Sodium Chloride) 250 mls @ 31.98 mls/hr IV TITR [facility]; 5 MCG/KG/MIN PRN Reason: Protocol Last Admin: 06/17/16 06:30 Dose: 31.98 mls/hr Propofol (Diprivan -) 100 mls @ 3.213 mls/hr IVPB TITR [facility]; 5 MCG/KG/MIN PRN Reason: Protocol Last Admin: 06/16/16 18:43 Dose: 3.213 mls/hr Fentanyl 500 mcg/ Dextrose 100 mls @ 10 mls/hr IJ TITR [facility] PRN Reason: 50 MCG/HR Last Admin: 06/17/16 06:32 Dose: 10 mls/hr Furosemide 100 mg/ Sodium (Chloride) 100 mls @ 7.5 mls/hr IVPB ASDIR [facility] Insulin Aspart (Novolog Vial Sliding Scale -) 1 vial SQ ACHS [facility] PRN Reason: Protocol Last Admin: 06/17/16 13:51 Dose: Not Given Levothyroxine Sodium (Synthroid Injection -) 25 mcg IVPUSH AM [facility] Last Admin: 06/17/16 06:19 Dose: 25 mcg Sevelamer Carbonate (Renvela Powder Packet -) 0.8 gm PO TIDCM [facility] Last Admin: 06/17/16 13:52 Dose: 0.8 gm Sodium Bicarbonate (Sodium Bicarbonate -) 650 mg PO BID [facility] Last Admin: 06/17/16 10:42 Dose: 650 mg - Objective Vital Signs: Vital Signs Temperature 98.8 F 06/17/16 14:00 Pulse Rate 90 06/17/16 14:00 Respiratory Rate 19 06/17/16 14:01 Blood Pressure 78/54 06/17/16 14:00 O2 Sat by Pulse Oximetry (%) 97 06/17/16 09:25 Constitutional: Yes: Calm Eyes: Yes: Conjunctiva Clear Cardiovascular: Yes: JVD, S1, S2 Respiratory: Yes: Mechanically Ventilated Gastrointestinal: Yes: Soft, Abdomen, Obese Genitourinary: Yes: López Present Musculoskeletal: Yes: Muscle Weakness Edema: Yes Neurological: Yes: Other (sedated) Labs: CBC, BMP 06/17/16 05:05 06/17/16 05:05 INR, PTT INR 1.85 (0.82-1.09) H 06/11/16 05:15 Fibrinogen 405.0 mg/dL (238-498) 06/10/16 04:45 - ....Imaging Chest X-ray: Report Reviewed Problem List - Problems (1) Acute hyperkalemia Code(s): E87.5 - HYPERKALEMIA (2) Hyponatremia Code(s): E87.1 - HYPO-OSMOLALITY AND HYPONATREMIA (3) Hypotension Code(s): I95.9 - HYPOTENSION, UNSPECIFIED Qualifiers: Hypotension type: other hypotension type Qualified Code(s): I95.89 - Other hypotension (4) Acute on chronic renal failure Code(s): N17.9 - ACUTE KIDNEY FAILURE, UNSPECIFIED N18.9 - CHRONIC KIDNEY DISEASE, UNSPECIFIED (5) Anemia Code(s): D64.9 - ANEMIA, UNSPECIFIED Qualifiers: Other causes of anemia: chronic disease, kidney (6) COPD (chronic obstructive pulmonary disease) Code(s): J44.9 - CHRONIC OBSTRUCTIVE PULMONARY DISEASE, UNSPECIFIED (7) Congestive heart failure (CHF) Code(s): I50.9 - HEART FAILURE, UNSPECIFIED Qualifiers: Congestive heart failure type: systolic Congestive heart failure chronicity: chronic Qualified Code(s): I50.22 - Chronic systolic (congestive ) heart failure (8) DMII (diabetes mellitus, type 2) Code(s): E11.9 - TYPE 2 DIABETES MELLITUS WITHOUT COMPLICATIONS Qualifiers: Diabetes mellitus complication detail: with other kidney complication (9) CKD (chronic kidney disease) Code(s): N18.9 - CHRONIC KIDNEY DISEASE, UNSPECIFIED Assessment/Plan Current Medications Generic Name Dose Route Start Last Admin Trade Name Katlyn PRN Reason Stop Dose Admin Brimonidine Tartrate 1 drop 06/10/16 10:00 06/17/16 10:41 Alphagan 0.2% - OU 1 drop BID [facility] Administration Collagenase 1 applic 06/13/16 22:00 06/16/16 22:35 Santyl - TP 1 applic BID [facility] Administration Pantoprazole Sodium 100 mls @ 200 mls/hr 06/10/16 06:00 06/17/16 06:19 Protonix 40mg Ivpb (Pre-Docked) IVPB 200 mls/hr BID@0600,1800 [facility] Administration Dobutamine HCl 250,000 mcg/ 250 mls @ 31.98 mls/hr 06/15/16 11:00 06/17/16 06: 30 Sodium Chloride IV 31.98 mls/hr TITR [facility] Administration Protocol 5 MCG/KG/MIN Propofol 100 mls @ 3.213 mls/hr 06/16/16 18:30 06/16/16 18:43 Diprivan - IVPB 3.213 mls/hr TITR [facility] Administration Protocol 5 MCG/KG/MIN Fentanyl 500 mcg/ Dextrose 100 mls @ 10 mls/hr 06/16/16 21:15 06/17/16 06:32 IJ 10 mls/hr TITR [facility] Administration 50 MCG/HR Furosemide 100 mg/ Sodium 100 mls @ 7.5 mls/hr 06/17/16 13:45 Chloride IVPB ASDIR [facility] Insulin Aspart 1 vial 06/10/16 16:30 06/17/16 13:51 Novolog Vial Sliding Scale - SQ Not Given ACHS [facility] Protocol Levothyroxine Sodium 25 mcg 06/10/16 07:00 06/17/16 06:19 Synthroid Injection - IVPUSH 25 mcg AM [facility] Administration Sevelamer Carbonate 0.8 gm 06/15/16 12:50 06/17/16 13:52 Renvela Powder Packet - PO 0.8 gm TIDCM [facility] Administration Sodium Bicarbonate 650 mg 06/12/16 22:00 06/17/16 10:42 Sodium Bicarbonate - PO 650 mg BID [facility] Administration Impression 1. CASE on CKD 2. sepsis with shock 3. cellulitis/abscess of back 4. CHF acute 5. hypothyroidism 6. hyperlipidemia 7. COPD 8. htn 9. a-fib 10. hyponatremia - isoosmolar 11. acute respiratory failure requiring intubation Plan - case discussed with ICU team and with cardiology at length today - called and discussed plan with pts HCP who is his niece. She did give consent for HD if needed - will increase dose of lasix - cardio input appreciated, dobutamine dose increased - monitor urine output - pt is making urine - attempt to minimize volume of drips - will hold off HD for now and continue with medical therapy - potassium has stabilized - will follow Dr Martinez
[2016-06-17] MEDS: COLLAGENASE CLOSTRIDIUM HIST. 30 GRAMS TUBE TP SCH ×2 (16:02→22:01)
[2016-06-17] MEDS: PROPOFOL 100 ML IVPB SCH ×2 (16:30→21:23)
[2016-06-17] MEDS ORDERED: DOBUTAMINE 250 MG/D5W - 250 ML ONE (19:54)
[2016-06-17] MEDS ORDERED: FUROSEMIDE 100 MG/10 ML INJECTABLE VIAL ONE (19:54)
--- NOTE | 2016-06-17 19:58 | PN ---
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, Physician Chief Complaint: EVENTS AND CHART REVIEWED PATIENT INTUBATED OVERNIGHT ON VENT SUPPORT AND LASIX DRIP - Current Medication List Current Medications: Active Medications Brimonidine Tartrate (Alphagan 0.2% -) 1 drop OU BID [facility] Last Admin: 06/17/16 10:41 Dose: 1 drop Collagenase (Santyl -) 1 applic TP BID [facility] Last Admin: 06/17/16 16:02 Dose: 1 applic Pantoprazole Sodium (Protonix 40mg Ivpb (Pre-Docked)) 100 mls @ 200 mls/hr IVPB BID@0600,1800 [facility] Last Admin: 06/17/16 17:32 Dose: 200 mls/hr Dobutamine HCl 250,000 mcg/ (Sodium Chloride) 250 mls @ 31.98 mls/hr IV TITR [facility]; 5 MCG/KG/MIN PRN Reason: Protocol Last Admin: 06/17/16 15:30 Dose: 31.98 mls/hr Propofol (Diprivan -) 100 mls @ 3.213 mls/hr IVPB TITR [facility]; 5 MCG/KG/MIN PRN Reason: Protocol Last Titration: 06/17/16 17:54 Dose: 6 mcg/kg/min Fentanyl 500 mcg/ Dextrose 100 mls @ 10 mls/hr IJ TITR [facility] PRN Reason: 50 MCG/HR Last Admin: 06/17/16 17:31 Dose: 10 mls/hr Furosemide 100 mg/ Sodium (Chloride) 100 mls @ 7.5 mls/hr IVPB ASDIR [facility] PRN Reason: 7.5 MG/HR Last Admin: 06/17/16 13:45 Dose: 7.5 mls/hr Insulin Aspart (Novolog Vial Sliding Scale -) 1 vial SQ ACHS [facility] PRN Reason: Protocol Last Admin: 06/17/16 13:51 Dose: Not Given Levothyroxine Sodium (Synthroid Injection -) 25 mcg IVPUSH AM [facility] Last Admin: 06/17/16 06:19 Dose: 25 mcg Sevelamer Carbonate (Renvela Powder Packet -) 0.8 gm PO TIDCM [facility] Last Admin: 06/17/16 17:32 Dose: 0.8 gm Silver Sulfadiazine (Silvadene -) 1 applic TP BID [facility] Sodium Bicarbonate (Sodium Bicarbonate -) 650 mg PO BID [facility] Last Admin: 06/17/16 10:42 Dose: 650 mg - Objective Vital Signs: Vital Signs Temperature 97.3 F L 06/17/16 18:00 Pulse Rate 93 H 06/17/16 19:00 Respiratory Rate 16 06/17/16 19:00 Blood Pressure 105/60 06/17/16 19:00 O2 Sat by Pulse Oximetry (%) 97 06/17/16 09:25 Constitutional: Yes: Severe Distress Eyes: Yes: Other HENT: Yes: Other Cardiovascular: Yes: Pulse Irregular Respiratory: Yes: Mechanically Ventilated, Poor Air Entry Gastrointestinal: Yes: Distention Genitourinary: Yes: López Present Musculoskeletal: Yes: Muscle Weakness Extremities: Yes: Deformity Edema: Yes Edema: LLE: 2+, RLE: 2+ Peripheral Pulses WNL: Yes Integumentary: Yes: Pressure Ulcer, Rash, Skin Tear, Venous Stasis Changes Wound/Incision: Yes: Draining, Reddened, Other Neurological: Yes: Pre-Existing Deficit, Unsteady Gait, Other ...Motor Strength: LLE, RLE Psychiatric: Yes: Other Labs: CBC, BMP 06/17/16 05:05 06/17/16 05:05 INR, PTT INR 1.85 (0.82-1.09) H 06/11/16 05:15 Fibrinogen 405.0 mg/dL (238-498) 06/10/16 04:45 Problem List - Problems (1) CKD (chronic kidney disease) Code(s): N18.9 - CHRONIC KIDNEY DISEASE, UNSPECIFIED (2) Hyponatremia Code(s): E87.1 - HYPO-OSMOLALITY AND HYPONATREMIA (3) Hypotension Code(s): I95.9 - HYPOTENSION, UNSPECIFIED Qualifiers: Hypotension type: other hypotension type Qualified Code(s): I95.89 - Other hypotension (4) Lung consolidation Code(s): J18.1 - LOBAR PNEUMONIA, UNSPECIFIED ORGANISM (5) Anemia Code(s): D64.9 - ANEMIA, UNSPECIFIED Qualifiers: Other causes of anemia: chronic disease, kidney (6) Atrial flutter Code(s): I48.92 - UNSPECIFIED ATRIAL FLUTTER (7) Bacteremia Code(s): R78.81 - BACTEREMIA (8) COPD (chronic obstructive pulmonary disease) Code(s): J44.9 - CHRONIC OBSTRUCTIVE PULMONARY DISEASE, UNSPECIFIED (9) DMII (diabetes mellitus, type 2) Code(s): E11.9 - TYPE 2 DIABETES MELLITUS WITHOUT COMPLICATIONS Qualifiers: Diabetes mellitus complication detail: with other kidney complication (10) Dyspnea Code(s): R06.00 - DYSPNEA, UNSPECIFIED Qualifiers: Dyspnea type: shortness of breath Qualified Code(s): R06.02 - Shortness of breath (11) Pressure ulcer of lower extremity, stage 1 Code(s): L89.891 - PRESSURE ULCER OF OTHER SITE, STAGE 1 (12) Sepsis Code(s): A41.9 - SEPSIS, UNSPECIFIED ORGANISM Qualifiers: Sepsis type: sepsis due to unspecified organism Qualified Code(s): A41.9 - Sepsis, unspecified organism (13) Weakness of both lower limbs Code(s): M62.81 - MUSCLE WEAKNESS (GENERALIZED) (14) Wound of left shoulder Code(s): S41.002A - UNSPECIFIED OPEN WOUND OF LEFT SHOULDER, INITIAL ENCOUNTER Qualifiers: Encounter type: subsequent encounter Qualified Code(s): S41.002D - Unspecified open wound of left shoulder, subsequent encounter (15) Acute respiratory distress Code(s): R06.00 - DYSPNEA, UNSPECIFIED Assessment/Plan INTUBATED ON VENT SUPPORT SEPSIS ON ABX BP SUPPORT, LASIX DRIP,DOBUTAMINE FOR INOTROPIC EFFECT RENAL FAILURE NEPHROLOGY FOLLOW UP WILL NEED HD POOR OVERALL PROGNOSIS DISCUSSED WITH HIS BROTHER MARCIO AND NIECE OVER THE PHONE VERY CRITICAL AT THIS TIME SURGERY EVAL FOR LEG EDEMA AND LEFT BACK WOUND DVT PROPHYLAXIS
[2016-06-17] MEDS: SILVER SULFADIAZINE 1% TOP CREAM 50 GM JAR TP SCH (22:03)
[2016-06-17] MEDS: CHLORHEXIDINE GLUCONATE 0.12% 15ML CUP MM SCH (23:55)
[2016-06-18] MEDS: DOBUTAMINE HCL 250,000 MCG in SODIUM CHLORIDE 230 ML IV SCH ×4 (02:00→17:42)
[2016-06-18] MEDS: FENTANYL INJECTION 500 MCG in DEXTROSE 5%-WATER - 90 ML IJ SCH ×3 (02:27→16:13)
[2016-06-18] MEDS ORDERED: NOREPINEPHRINE BITARTRATE 4 MG/4 ML ML IV ONE (03:37)
[2016-06-18] MEDS ORDERED: PT OWN MED DRAWER 7, Y5N ONE ×3 (05:36→11:44)
[2016-06-18] MEDS: PANTOPRAZOLE SODIUM 100 ML IVPB SCH ×2 (05:37→17:44)
[2016-06-18] MEDS: INSULIN SLIDING SCALE (NOVOLOG) 1 VIAL SQ SCH ×4 (06:04→21:29)
[2016-06-18 06:14] LABS: BASOPHIL 0.2 % (0-2.0); EOSINOPHIL 0.2 % (0-4.5); MCH 28.7 pg (25.7-33.7); MCHC 32.9 g/dl (32.0-35.9); MEAN CELL VOLUME 87.3 fl (80-96); MEAN PLT VOLUME 8.2 fl (7.5-11.1); NEUTROPHILS 92.3 % (42.8-82.8); PLATELET COUNT 86 K/MM3 (134-434); RDW 17.1 % (11.9-15.9); WHITE BLOOD COUNT 15.8 K/mm3 (4.0-10.0)
[2016-06-18] MEDS: LEVOTHYROXINE SODIUM 100 MCG VIAL IVPUSH SCH (06:14)
[2016-06-18 06:40] LABS: ALBUMIN 1.4 g/dl (3.4-5.0); CALCIUM 7.8 mg/dL (8.5-10.1); MAGNESIUM 1.8 mg/dL (1.8-2.4)
[2016-06-18 06:45] LABS: BILIRUBIN,TOTAL 1.4 mg/dL (0.2-1.0); CREATININE 4.7 mg/dL (0.7-1.3); PHOSPHOROUS 6.9 mg/dL (2.5-4.9); TOT PROT 4.6 g/dl (6.4-8.2)
[2016-06-18 07:51] LABS: ARTERIAL BLD GAS O2 SATURATION 98.6 % (90-98.9); ARTERIAL BLOOD GAS BASE EXCESS -8.8 meq/l (-2-2); ARTERIAL BLOOD GAS HCO3 16.4 meq/L (22-26)
[2016-06-18 07:52] LABS: ALLENS TEST POSITIVE; ART PUNCT SITE RIGHT RADIAL; LPM/O2% 35%; MECH. VENT. YES; PT. ON O2? YES; TYPE OF O2 VENT; VENT RATE 16; VT/PRESS 475
[2016-06-18] MEDS ORDERED: DOBUTAMINE 250 MG/D5W - 250 ML ONE ×2 (08:34→17:40)
[2016-06-18] MEDS: SEVELAMER CARBONATE 0.8 GM POWDER PACKET PO SCH ×3 (09:00→17:44)
[2016-06-18] MEDS: BRIMONIDINE TARTRATE 0.2% OPHTHALMIC 5 ML BOTTLE OU SCH ×2 (09:17→21:17)
[2016-06-18] MEDS: CHLORHEXIDINE GLUCONATE 0.12% 15ML CUP MM SCH ×2 (09:17→21:11)
[2016-06-18] MEDS: SODIUM BICARBONATE 650 MG TABLET PO SCH ×2 (09:18→21:11)
[2016-06-18] MEDS: COLLAGENASE CLOSTRIDIUM HIST. 30 GRAMS TUBE TP SCH ×2 (09:18→21:45)
[2016-06-18] MEDS: SILVER SULFADIAZINE 1% TOP CREAM 50 GM JAR TP SCH ×2 (09:18→21:17)
--- NOTE | 2016-06-18 13:08 | PN ---
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, Physician History of Present Illness: Pt seen and examined at bedside. He remains in the ICU. He remains intubated. He is making urine. - Current Medication List Current Medications: Active Medications Brimonidine Tartrate (Alphagan 0.2% -) 1 drop OU BID [facility] Last Admin: 06/18/16 09:17 Dose: 1 drop Chlorhexidine Gluconate (Peridex -) 15 ml MM BID [facility] Last Admin: 06/18/16 09:17 Dose: 15 ml Collagenase (Santyl -) 1 applic TP BID [facility] Last Admin: 06/18/16 09:18 Dose: 1 applic Pantoprazole Sodium (Protonix 40mg Ivpb (Pre-Docked)) 100 mls @ 200 mls/hr IVPB BID@0600,1800 [facility] Last Admin: 06/18/16 05:37 Dose: 200 mls/hr Dobutamine HCl 250,000 mcg/ (Sodium Chloride) 250 mls @ 31.98 mls/hr IV TITR [facility]; 5 MCG/KG/MIN PRN Reason: Protocol Last Admin: 06/18/16 11:29 Dose: Not Given Propofol (Diprivan -) 100 mls @ 3.213 mls/hr IVPB TITR [facility]; 5 MCG/KG/MIN PRN Reason: Protocol Last Admin: 06/17/16 21:23 Dose: Not Given Fentanyl 500 mcg/ Dextrose 100 mls @ 10 mls/hr IJ TITR [facility] PRN Reason: 50 MCG/HR Last Admin: 06/18/16 06:08 Dose: 10 mls/hr Furosemide 100 mg/ Sodium (Chloride) 100 mls @ 7.5 mls/hr IVPB ASDIR [facility] PRN Reason: 7.5 MG/HR Last Admin: 06/17/16 13:45 Dose: 7.5 mls/hr Insulin Aspart (Novolog Vial Sliding Scale -) 1 vial SQ ACHS [facility] PRN Reason: Protocol Last Admin: 06/18/16 11:06 Dose: 2 units Levothyroxine Sodium (Synthroid Injection -) 25 mcg IVPUSH AM [facility] Last Admin: 06/18/16 06:14 Dose: 25 mcg Sevelamer Carbonate (Renvela Powder Packet -) 0.8 gm PO TIDCM [facility] Last Admin: 06/18/16 12:37 Dose: 0.8 gm Silver Sulfadiazine (Silvadene -) 1 applic TP BID [facility] Last Admin: 06/18/16 09:18 Dose: 1 applic Sodium Bicarbonate (Sodium Bicarbonate -) 650 mg PO BID [facility] Last Admin: 06/18/16 09:18 Dose: 650 mg - Objective Vital Signs: Vital Signs Temperature 96.4 F L 06/18/16 10:00 Pulse Rate 94 H 06/18/16 12:00 Respiratory Rate 15 06/18/16 12:00 Blood Pressure 104/64 06/18/16 12:00 O2 Sat by Pulse Oximetry (%) 100 06/18/16 10:03 Constitutional: Yes: Calm Eyes: Yes: Conjunctiva Clear HENT: Yes: Atraumatic Cardiovascular: Yes: S1, S2 Respiratory: Yes: Mechanically Ventilated Gastrointestinal: Yes: Soft Genitourinary: Yes: López Present Musculoskeletal: Yes: Muscle Weakness Edema: Yes Integumentary: Yes: Venous Stasis Changes Neurological: Yes: Lethargy Labs: CBC, BMP 06/18/16 05:20 06/18/16 05:20 INR, PTT INR 1.85 (0.82-1.09) H 06/11/16 05:15 Fibrinogen 405.0 mg/dL (238-498) 06/10/16 04:45 - ....Imaging Chest X-ray: Report Reviewed Problem List - Problems (1) Acute hyperkalemia Code(s): E87.5 - HYPERKALEMIA (2) Hyponatremia Code(s): E87.1 - HYPO-OSMOLALITY AND HYPONATREMIA (3) Hypotension Code(s): I95.9 - HYPOTENSION, UNSPECIFIED Qualifiers: Hypotension type: other hypotension type Qualified Code(s): I95.89 - Other hypotension (4) Acute on chronic renal failure Code(s): N17.9 - ACUTE KIDNEY FAILURE, UNSPECIFIED N18.9 - CHRONIC KIDNEY DISEASE, UNSPECIFIED (5) Anemia Code(s): D64.9 - ANEMIA, UNSPECIFIED Qualifiers: Other causes of anemia: chronic disease, kidney (6) COPD (chronic obstructive pulmonary disease) Code(s): J44.9 - CHRONIC OBSTRUCTIVE PULMONARY DISEASE, UNSPECIFIED (7) Congestive heart failure (CHF) Code(s): I50.9 - HEART FAILURE, UNSPECIFIED Qualifiers: Congestive heart failure type: systolic Congestive heart failure chronicity: chronic Qualified Code(s): I50.22 - Chronic systolic (congestive ) heart failure (8) DMII (diabetes mellitus, type 2) Code(s): E11.9 - TYPE 2 DIABETES MELLITUS WITHOUT COMPLICATIONS Qualifiers: Diabetes mellitus complication detail: with other kidney complication (9) CKD (chronic kidney disease) Code(s): N18.9 - CHRONIC KIDNEY DISEASE, UNSPECIFIED Assessment/Plan Current Medications Generic Name Dose Route Start Last Admin Trade Name Freq PRN Reason Stop Dose Admin Brimonidine Tartrate 1 drop 06/10/16 10:00 06/18/16 09:17 Alphagan 0.2% - OU 1 drop BID [facility] Administration Chlorhexidine Gluconate 15 ml 06/17/16 23:30 06/18/16 09:17 Peridex - MM 15 ml BID [facility] Administration Collagenase 1 applic 06/13/16 22:00 06/18/16 09:18 Santyl - TP 1 applic BID [facility] Administration Pantoprazole Sodium 100 mls @ 200 mls/hr 06/10/16 06:00 06/18/16 05:37 Protonix 40mg Ivpb (Pre-Docked) IVPB 200 mls/hr BID@0600,1800 [facility] Administration Dobutamine HCl 250,000 mcg/ 250 mls @ 31.98 mls/hr 06/15/16 11:00 06/18/16 11: 29 Sodium Chloride IV Not Given TITR [facility] Protocol 5 MCG/KG/MIN Propofol 100 mls @ 3.213 mls/hr 06/16/16 18:30 06/17/16 21:23 Diprivan - IVPB Not Given TITR [facility] Protocol 5 MCG/KG/MIN Fentanyl 500 mcg/ Dextrose 100 mls @ 10 mls/hr 06/16/16 21:15 06/18/16 06:08 IJ 10 mls/hr TITR [facility] Administration 50 MCG/HR Furosemide 100 mg/ Sodium 100 mls @ 7.5 mls/hr 06/17/16 13:45 06/17/16 13:45 Chloride IVPB 7.5 mls/hr ASDIR [facility] Administration 7.5 MG/HR Insulin Aspart 1 vial 06/10/16 16:30 06/18/16 11:06 Novolog Vial Sliding Scale - SQ 2 units ACHS [facility] Administration Protocol Levothyroxine Sodium 25 mcg 06/10/16 07:00 06/18/16 06:14 Synthroid Injection - IVPUSH 25 mcg AM [facility] Administration Sevelamer Carbonate 0.8 gm 06/15/16 12:50 06/18/16 12:37 Renvela Powder Packet - PO 0.8 gm TIDCM [facility] Administration Silver Sulfadiazine 1 applic 06/17/16 22:00 06/18/16 09:18 Silvadene - TP 1 applic BID [facility] Administration Sodium Bicarbonate 650 mg 06/12/16 22:00 06/18/16 09:18 Sodium Bicarbonate - PO 650 mg BID [facility] Administration Impression 1. CASE on CKD 2. sepsis with shock 3. cellulitis/abscess of back 4. CHF acute 5. hypothyroidism 6. hyperlipidemia 7. COPD 8. htn 9. a-fib 10. hyponatremia - isoosmolar 11. acute respiratory failure requiring intubation Plan - cont with lasix and increase to 10 per hour if bp allows - monitor output, he did respond yesterday - repeat labs in am - will evaluate for HD daily - attempt to minimize volume intake - discussed with ICU team - sodium is improving - will follow Dr Martinez
--- NOTE | 2016-06-18 13:12 | PN ---
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 (short form) - Note 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: Left shoulder wound re-evaluated Patient in ICU Intubated Vital Signs Period Temp Pulse Resp BP Sys/Hubbard Pulse Ox Last 24 Hr 96 F-98.8 F 88-96 14-19 78-115/44-78 97-100 Left shoulder granulating well, no signs of infection, no discharge, non foul smelling CBC, BMP 06/18/16 05:20 06/18/16 05:20 No intervention needed for left shoulder Continue medical management Reconsult PRN Problem List - Problems (1) Sepsis Code(s): A41.9 - SEPSIS, UNSPECIFIED ORGANISM Qualifiers: Sepsis type: sepsis due to unspecified organism Qualified Code(s): A41.9 - Sepsis, unspecified organism
--- NOTE | 2016-06-18 14:09 | PN ---
Physical Exam: SUBJECTIVE: Patient seen and examined patient intubated and sedated on fentanyl and propofol on dobutamin 5 bp 102/52 spo2 100 on fio2 35, peep 5, tv 475, rr 16 platelets stable increase lasix to 10mg/hr OBJECTIVE: Vital Signs Period Temp Pulse Resp BP Sys/Hubbard Pulse Ox Last 24 Hr 96 F-98.3 F 88-96 14-19 97-115/44-78 97-100 GENERAL:intubated and sedated HEAD: Normal with no signs of trauma. EYES: Pupils equal, round and reactive to light, NECK no lymphadenopathy LUNGS:b/l air entry present, diffuse ronchi, no wheez HEART: s1s2 normal, ABDOMEN: Soft, nontender, not distended, normoactive bowel sounds, no guarding, no rebound, no masses. scrotal and penile swelling present UPPER EXTREMITIES: 2+ pulses, warm, well-perfused. No cyanosis. No clubbing. Cap refill <2 seconds. . LOWER EXTREMITIES: multiple ulcers resent on b/l lower limb, b/l pitting edema + + NEUROLOGICAL: unobtainable Laboratory Results - last 24 hr 06/17/16 06/17/16 06/17/16 05:19 13:39 18:34 WBC RBC Hgb Hct MCV MCHC RDW Plt Count MPV Neutrophils % Lymphocytes % Monocytes % Eosinophils % Basophils % Puncture Site ABG pH ABG pCO2 at Pt Temp ABG pO2 at Pt Temp ABG HCO3 ABG O2 Sat (Measured) ABG O2 Content ABG Base Excess Frankie Test O2 Delivery Device Oxygen Flow Rate Vent Mode Vent Rate Mechanical Rate PEEP Pressure Support Vent Sodium Potassium Chloride Carbon Dioxide Anion Gap BUN Creatinine Creat Clearance w eGFR POC Glucometer 118.27726 120.08259 123.05018 Random Glucose Calcium Phosphorus Magnesium Total Bilirubin AST ALT Alkaline Phosphatase Total Protein Albumin 06/17/16 06/18/16 06/18/16 21:34 05:20 05:20 WBC 15.8 H RBC 2.55 L Hgb 7.3 L Hct 22.3 L MCV 87.3 MCHC 32.9 RDW 17.1 H Plt Count 86 L MPV 8.2 Neutrophils % 92.3 H Lymphocytes % 1.3 L Monocytes % 6.0 Eosinophils % 0.2 D Basophils % 0.2 Puncture Site ABG pH ABG pCO2 at Pt Temp ABG pO2 at Pt Temp ABG HCO3 ABG O2 Sat (Measured) ABG O2 Content ABG Base Excess Frankie Test O2 Delivery Device Oxygen Flow Rate Vent Mode Vent Rate Mechanical Rate PEEP Pressure Support Vent Sodium 133 L Potassium 4.7 Chloride 97 L Carbon Dioxide 19 L Anion Gap 17 H BUN 114 H* Creatinine 4.7 H Creat Clearance w eGFR 12.18 POC Glucometer 128.47180 Random Glucose 73 L Calcium 7.8 L Phosphorus 6.9 H Magnesium 1.8 Total Bilirubin 1.4 H D AST 17 ALT 12 D Alkaline Phosphatase 80 Total Protein 4.6 L Albumin 1.4 L 06/18/16 06/18/16 05:24 07:35 WBC RBC Hgb Hct MCV MCHC RDW Plt Count MPV Neutrophils % Lymphocytes % Monocytes % Eosinophils % Basophils % Puncture Site Right radial ABG pH 7.30 L ABG pCO2 at Pt Temp 34.4 L ABG pO2 at Pt Temp 114.0 H D ABG HCO3 16.4 L ABG O2 Sat (Measured) 98.6 ABG O2 Content 10.4 L ABG Base Excess -8.8 L Frankie Test Positive O2 Delivery Device Vent Oxygen Flow Rate 35% Vent Mode A/c Vent Rate 16 Mechanical Rate Yes PEEP 5.0 Pressure Support Vent 475 Sodium Potassium Chloride Carbon Dioxide Anion Gap BUN Creatinine Creat Clearance w eGFR POC Glucometer 119.21014 Random Glucose Calcium Phosphorus Magnesium Total Bilirubin AST ALT Alkaline Phosphatase Total Protein Albumin Active Medications Generic Name Dose Route Start Last Admin Trade Name Freq PRN Reason Stop Dose Admin Brimonidine Tartrate 1 drop 06/10/16 10:00 06/18/16 09:17 Alphagan 0.2% - OU 1 drop BID [facility] Administration Chlorhexidine Gluconate 15 ml 06/17/16 23:30 06/18/16 09:17 Peridex - MM 15 ml BID [facility] Administration Collagenase 1 applic 06/13/16 22:00 06/18/16 09:18 Santyl - TP 1 applic BID [facility] Administration Pantoprazole Sodium 100 mls @ 200 mls/hr 06/10/16 06:00 06/18/16 05:37 Protonix 40mg Ivpb (Pre-Docked) IVPB 200 mls/hr BID@0600,1800 [facility] Administration Dobutamine HCl 250,000 mcg/ 250 mls @ 31.98 mls/hr 06/15/16 11:00 06/18/16 11: 29 Sodium Chloride IV Not Given TITR [facility] Protocol 5 MCG/KG/MIN Propofol 100 mls @ 3.213 mls/hr 06/16/16 18:30 06/17/16 21:23 Diprivan - IVPB Not Given TITR [facility] Protocol 5 MCG/KG/MIN Fentanyl 500 mcg/ Dextrose 100 mls @ 10 mls/hr 06/16/16 21:15 06/18/16 06:08 IJ 10 mls/hr TITR [facility] Administration 50 MCG/HR Furosemide 100 mg/ Sodium 100 mls @ 10 mls/hr 06/18/16 13:08 Chloride IVPB ASDIR [facility] 10 MG/HR Insulin Aspart 1 vial 06/10/16 16:30 06/18/16 11:06 Novolog Vial Sliding Scale - SQ 2 units ACHS [facility] Administration Protocol Levothyroxine Sodium 25 mcg 06/10/16 07:00 06/18/16 06:14 Synthroid Injection - IVPUSH 25 mcg AM [facility] Administration Sevelamer Carbonate 0.8 gm 06/15/16 12:50 06/18/16 12:37 Renvela Powder Packet - PO 0.8 gm TIDCM [facility] Administration Silver Sulfadiazine 1 applic 06/17/16 22:00 06/18/16 09:18 Silvadene - TP 1 applic BID [facility] Administration Sodium Bicarbonate 650 mg 06/12/16 22:00 06/18/16 09:18 Sodium Bicarbonate - PO 650 mg BID [facility] Administration Microbiology 06/09/16 23:00 Blood - Peripheral Venous Blood Culture - Final NO GROWTH AFTER 5 DAYS INCUBATION 06/09/16 23:00 Blood - Peripheral Venous Blood Culture - Final NO GROWTH AFTER 5 DAYS INCUBATION 06/10/16 04:30 Shoulder - Left Gram Stain - Final 06/10/16 04:30 Shoulder - Left Wound Culture - Final Mr S Aureus Staphylococcus Coagulase Neg Yeast Like Organism 06/10/16 00:20 Urine - Urine López Urine Culture - Final NO GROWTH OBTAINED 06/10/16 05:30 Urine For Antigen Detection Legionella Antigen - Final 06/10/16 05:30 Urine For Antigen Detection Streptococcus pneumoniae Antigen (M - Final 06/10/16 04:30 Nasopharyngeal Swab Respiratory Virus Panel - Preliminary 06/10/16 04:30 Nasopharyngeal Swab Influenza Types A,B Antigen (ANH) - Final 06/10/16 04:30 Nasopharyngeal Swab - Final ASSESSMENT/PLAN: shock secondary to sepsis afebrile, wbc 15, patient could have septic shock with cardiogenic shock monitor vitals monitor intake/ output, maintain negative balance follow abg in morning on dobutamin drip. blood culture no growth urine culture no growth antibiotics as per id surgery consult appreciated: shoulder wound less likely a source of infection. hyponatremia improving Na 133 monitor sodium increase 0.5 to 1 meq/hr not more than 12 meq in 24 hour abdiaziz on ckd cr 4.7, bun 114 avoid nephrotoxic drugs avoid iv fluid nephrology consult appreciated on Lasix drip 10mg/hr monitor creatinine, bun, k Acute respiratory failure with left side atelectasis intubated, sedated, on ventilator support left side atelectasis resolved keep spo2 over 90 duoneb nebulizer take aspiration precautions Hyperkalemia K stable to 4.7 monitor K acute on chronic LV heart failure avoid Iv fluid daily weight maintain negative balance. on iV lasix drip at 10mg/hr monitor IO LV systolic function severly reduced, LV global hypokinesia lactic acidosis improved hypothermia on hector hugger h/o cad, A flutter/ fibrillation , chf, global hypokinesia alaquis on hold due to anemia, cardiology on case last echo on 06/10 ef 28 and global hypokinesia anemia hb 7.5 follow stool for occult blood h/o copd not active on duoneb DM on sliding scale follow bgm h/o hypothyroid on synthyroid fluid ; avoid IV fluid electrolyte ; repeat in am nutrition ; tube feed dvt pro heparin d/c due to thrombocytopenia. HIT antibody pending. gi pro : on protonix patient is full code. dispo : admit in icu Visit type - Emergency Visit Emergency Visit: Yes ED Registration Date: 06/10/16 Care time: The patient presented to the Emergency Department on the above date and was hospitalized for further evaluation of their emergent condition. - New Patient This patient is new to me today: No - Critical Care Critical Care patient: Yes Total Critical Care Time (in minutes): 45 Critical Care Statement: The care of this patient involved high complexity decision making to prevent further life threatening deterioration of the patient 's condition and/or to evalute & treat vital organ system(s) failure or risk of failure.
--- NOTE | 2016-06-18 15:42 | PN ---
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, Physician History of Present Illness: No new events. Patient remains intubated and on lasix and dobutamine gtt. - Current Medication List Current Medications: Active Medications Brimonidine Tartrate (Alphagan 0.2% -) 1 drop OU BID [facility] Last Admin: 06/18/16 09:17 Dose: 1 drop Chlorhexidine Gluconate (Peridex -) 15 ml MM BID [facility] Last Admin: 06/18/16 09:17 Dose: 15 ml Collagenase (Santyl -) 1 applic TP BID [facility] Last Admin: 06/18/16 09:18 Dose: 1 applic Pantoprazole Sodium (Protonix 40mg Ivpb (Pre-Docked)) 100 mls @ 200 mls/hr IVPB BID@0600,1800 [facility] Last Admin: 06/18/16 05:37 Dose: 200 mls/hr Dobutamine HCl 250,000 mcg/ (Sodium Chloride) 250 mls @ 31.98 mls/hr IV TITR [facility]; 5 MCG/KG/MIN PRN Reason: Protocol Last Admin: 06/18/16 11:29 Dose: Not Given Propofol (Diprivan -) 100 mls @ 3.213 mls/hr IVPB TITR [facility]; 5 MCG/KG/MIN PRN Reason: Protocol Last Admin: 06/17/16 21:23 Dose: Not Given Furosemide 100 mg/ Sodium (Chloride) 100 mls @ 10 mls/hr IVPB ASDIR [facility] PRN Reason: 10 MG/HR Fentanyl 500 mcg/ Dextrose 100 mls @ 8 mls/hr IJ TITR [facility] PRN Reason: 40 MCG/HR Insulin Aspart (Novolog Vial Sliding Scale -) 1 vial SQ ACHS [facility] PRN Reason: Protocol Last Admin: 06/18/16 11:06 Dose: 2 units Levothyroxine Sodium (Synthroid Injection -) 25 mcg IVPUSH AM [facility] Last Admin: 06/18/16 06:14 Dose: 25 mcg Sevelamer Carbonate (Renvela Powder Packet -) 0.8 gm PO TIDCM [facility] Last Admin: 06/18/16 12:37 Dose: 0.8 gm Silver Sulfadiazine (Silvadene -) 1 applic TP BID [facility] Last Admin: 06/18/16 09:18 Dose: 1 applic Sodium Bicarbonate (Sodium Bicarbonate -) 650 mg PO BID [facility] Last Admin: 06/18/16 09:18 Dose: 650 mg - Objective Vital Signs: Vital Signs Temperature 96.4 F L 06/18/16 13:41 Pulse Rate 92 H 06/18/16 13:41 Respiratory Rate 17 06/18/16 13:48 Blood Pressure 109/64 06/18/16 13:41 O2 Sat by Pulse Oximetry (%) 100 06/18/16 10:03 HENT: Yes: Atraumatic, Normocephalic Cardiovascular: Yes: Regular Rate and Rhythm Respiratory: Yes: Diminished Gastrointestinal: Yes: Normal Bowel Sounds, Soft Edema: Yes Edema: LLE: 3+, RLE: 3+ Neurological: Yes: Other (Sedated) Labs: CBC, BMP 06/18/16 05:20 06/18/16 05:20 INR, PTT INR 1.85 (0.82-1.09) H 06/11/16 05:15 Fibrinogen 405.0 mg/dL (238-498) 06/10/16 04:45 Assessment/Plan 76 yo male with known CAD, prior FL (mild diffuse prox RCA disease, no intervention), paroxysmal atrial fib/flutter (on Eliquis), HFrEF (severely reduced LV systolic function per 04/14/16 echo), HTN, DM, CKD, hyperlipidemia, who was recently hospitalized at [facility] from 05/23-06/02/16 for cellulitis/abscess of left shoulder and lower extremities, and bacteremia. Now admitted with septic shock, acute on chronic renal failure, hyperkalemia, and anemia requiring pressor and inotropic support (NE and DBT) currently on low dose of NE. Possible HCAP? Multiple skin ulcers - skin infection. Severe global hypokinesis per 06/10/16 echocardiogram. Currently on lasix gtt and dobutamine gtt. Poor prognosis. RECS: Currently on dobutamine gtt 5 mcg/kg/min. May increase dobutamine to 10 mcg/kg/ min if needed to help augment BP. Try to minimize fentanyl since this is likely contributing to current hypotension. Would also resume levophed gtt to maintain BP if needed. Will need to monitor for potential tachyarrhythmias with dobutamine gtt. Currently on lasix gtt with increase in urine output but no significant improvement in renal function. Patient may need to start hemodialysis in near future. Continue to hold anticoagulation for afib given anemia. Patient with anemia (Hgb 7.3 today). Transfuse as needed. Strict I&O. Daily weight. Further recs as per ICU team, nephrology, and ID service. Please call with questions.
--- NOTE | 2016-06-18 15:53 | PN ---
Teaching Attending Note Name of Resident: Patricio Andrade ATTENDING PHYSICIAN STATEMENT I saw and evaluated the patient. I reviewed the resident's note and discussed the case with the resident. I agree with the resident's findings and plan as documented. SUBJECTIVE: Pt seen and examined in the ICU. Remains intubated, sedated but arousable. Finally able to achieve net negative fluid balance on lasix and dobutamine gtt. No fevers recorded. OBJECTIVE: Last Vital Signs Temp Pulse Resp BP Pulse Ox 96.4 F L 92 H 19 109/64 100 06/18/16 13:41 06/18/16 13:41 06/18/16 15:43 06/18/16 13:41 06/18/16 10:03 Intake & Output 06/15/16 06/16/16 06/17/16 06/18/16 23:59 23:59 23:59 23:59 Intake Total 1626 2348 663.6 1014 Output Total 950 1050 1600 950 Balance 676 1298 -936.4 64 Weight 235 lb 0.204 oz 236 lb 1.841 oz 235 lb 7.259 oz 230 lb 6.129 oz Gen: intubated, sedated Heart: RRR Lung: scattered rhonchi Back: left posterior shoulder with clean based ulcer Abd: soft, nontender Ext: + edema CBC, BMP 06/18/16 05:20 06/18/16 05:20 Active Medications Brimonidine Tartrate (Alphagan 0.2% -) 1 drop OU BID [facility] Last Admin: 06/18/16 09:17 Dose: 1 drop Chlorhexidine Gluconate (Peridex -) 15 ml MM BID [facility] Last Admin: 06/18/16 09:17 Dose: 15 ml Collagenase (Santyl -) 1 applic TP BID [facility] Last Admin: 06/18/16 09:18 Dose: 1 applic Pantoprazole Sodium (Protonix 40mg Ivpb (Pre-Docked)) 100 mls @ 200 mls/hr IVPB BID@0600,1800 [facility] Last Admin: 06/18/16 05:37 Dose: 200 mls/hr Dobutamine HCl 250,000 mcg/ (Sodium Chloride) 250 mls @ 31.98 mls/hr IV TITR [facility]; 5 MCG/KG/MIN PRN Reason: Protocol Last Admin: 06/18/16 11:29 Dose: Not Given Propofol (Diprivan -) 100 mls @ 3.213 mls/hr IVPB TITR [facility]; 5 MCG/KG/MIN PRN Reason: Protocol Last Admin: 06/17/16 21:23 Dose: Not Given Furosemide 100 mg/ Sodium (Chloride) 100 mls @ 10 mls/hr IVPB ASDIR [facility] PRN Reason: 10 MG/HR Fentanyl 500 mcg/ Dextrose 100 mls @ 8 mls/hr IJ TITR [facility] PRN Reason: 40 MCG/HR Insulin Aspart (Novolog Vial Sliding Scale -) 1 vial SQ ACHS [facility] PRN Reason: Protocol Last Admin: 06/18/16 11:06 Dose: 2 units Levothyroxine Sodium (Synthroid Injection -) 25 mcg IVPUSH AM [facility] Last Admin: 06/18/16 06:14 Dose: 25 mcg Sevelamer Carbonate (Renvela Powder Packet -) 0.8 gm PO TIDCM [facility] Last Admin: 06/18/16 12:37 Dose: 0.8 gm Silver Sulfadiazine (Silvadene -) 1 applic TP BID [facility] Last Admin: 06/18/16 09:18 Dose: 1 applic Sodium Bicarbonate (Sodium Bicarbonate -) 650 mg PO BID [facility] Last Admin: 06/18/16 09:18 Dose: 650 mg ASSESSMENT AND PLAN: Acute Respiratory Failure Back/Shoulder Cellulitis/Abscess Septic vs Cardiogenic Shock Acute on Chronic Renal Failure Metabolic Acidosis Acute on Chronic LV Systolic Heart Failure Atrial Fibrillation COPD Hyponatremia Atelectasis improving - continue dobutamine/lasix gtts - start levophed gtt if hypotensive - keep net negative fluid balance - may still need HD - s/p antibiotic course - O2 to keep SpO2 >90% - aspiration precautions - inhaled bronchodilators - enteral feeds - DVT/GI prophylaxis - continue ICU monitoring critical care time spent reviewing chart, evaluating patient and formulating plan 35 min
[2016-06-18] MEDS: FUROSEMIDE INJECTION 100 MG in SODIUM CHLORIDE 90 ML IVPB SCH ×2 (16:15→16:44)
[2016-06-18] MEDS ORDERED: FUROSEMIDE 100 MG/10 ML INJECTABLE VIAL ONE (16:43)
[2016-06-18] MEDS: PROPOFOL 100 ML IVPB SCH (19:00)
--- NOTE | 2016-06-18 20:50 | PN ---
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, Physician Chief Complaint: INTUBATED EVENTS/CHART REVIEWED FAMILY RU ODOM BEDSIDE - Current Medication List Current Medications: Active Medications Brimonidine Tartrate (Alphagan 0.2% -) 1 drop OU BID [facility] Last Admin: 06/18/16 09:17 Dose: 1 drop Chlorhexidine Gluconate (Peridex -) 15 ml MM BID [facility] Last Admin: 06/18/16 09:17 Dose: 15 ml Collagenase (Santyl -) 1 applic TP BID [facility] Last Admin: 06/18/16 09:18 Dose: 1 applic Pantoprazole Sodium (Protonix 40mg Ivpb (Pre-Docked)) 100 mls @ 200 mls/hr IVPB BID@0600,1800 [facility] Last Admin: 06/18/16 17:44 Dose: 200 mls/hr Dobutamine HCl 250,000 mcg/ (Sodium Chloride) 250 mls @ 31.98 mls/hr IV TITR [facility]; 5 MCG/KG/MIN PRN Reason: Protocol Last Admin: 06/18/16 17:42 Dose: 31.98 mls/hr Propofol (Diprivan -) 100 mls @ 3.213 mls/hr IVPB TITR [facility]; 5 MCG/KG/MIN PRN Reason: Protocol Last Admin: 06/17/16 21:23 Dose: Not Given Furosemide 100 mg/ Sodium (Chloride) 100 mls @ 10 mls/hr IVPB ASDIR [facility] PRN Reason: 10 MG/HR Last Admin: 06/18/16 16:44 Dose: 10 mls/hr Fentanyl 500 mcg/ Dextrose 100 mls @ 8 mls/hr IJ TITR [facility] PRN Reason: 40 MCG/HR Last Admin: 06/18/16 16:13 Dose: 8 mls/hr Insulin Aspart (Novolog Vial Sliding Scale -) 1 vial SQ ACHS [facility] PRN Reason: Protocol Last Admin: 06/18/16 17:43 Dose: 4 units Levothyroxine Sodium (Synthroid Injection -) 25 mcg IVPUSH AM [facility] Last Admin: 06/18/16 06:14 Dose: 25 mcg Sevelamer Carbonate (Renvela Powder Packet -) 0.8 gm PO TIDCM [facility] Last Admin: 06/18/16 17:44 Dose: 0.8 gm Silver Sulfadiazine (Silvadene -) 1 applic TP BID [facility] Last Admin: 06/18/16 09:18 Dose: 1 applic Sodium Bicarbonate (Sodium Bicarbonate -) 650 mg PO BID [facility] Last Admin: 06/18/16 09:18 Dose: 650 mg - Objective Vital Signs: Vital Signs Temperature 96.4 F L 06/18/16 13:41 Pulse Rate 95 H 06/18/16 19:00 Respiratory Rate 17 06/18/16 20:04 Blood Pressure 104/60 06/18/16 19:00 O2 Sat by Pulse Oximetry (%) 100 06/18/16 10:03 Constitutional: Yes: Severe Distress Eyes: Yes: WNL HENT: Yes: WNL Neck: Yes: WNL Cardiovascular: Yes: Tachycardia Respiratory: Yes: Mechanically Ventilated, Poor Air Entry Gastrointestinal: Yes: WNL Genitourinary: Yes: Maribel Present Musculoskeletal: Yes: Muscle Weakness Extremities: Yes: Deformity, Other Edema: Yes Edema: LLE: 2+, RLE: 2+ Integumentary: Yes: Pressure Ulcer, Rash, Venous Stasis Changes Wound/Incision: Yes: Dressing Dry and Intact, Dressing Removed, Draining Neurological: Yes: Pre-Existing Deficit, Unsteady Gait, Weakness Psychiatric: Yes: Other Labs: CBC, BMP 06/18/16 05:20 06/18/16 05:20 INR, PTT INR 1.85 (0.82-1.09) H 06/11/16 05:15 Fibrinogen 405.0 mg/dL (238-498) 06/10/16 04:45 Problem List - Problems (1) CKD (chronic kidney disease) Code(s): N18.9 - CHRONIC KIDNEY DISEASE, UNSPECIFIED (2) Hyponatremia Code(s): E87.1 - HYPO-OSMOLALITY AND HYPONATREMIA (3) Hypotension Code(s): I95.9 - HYPOTENSION, UNSPECIFIED Qualifiers: Hypotension type: other hypotension type Qualified Code(s): I95.89 - Other hypotension (4) Lung consolidation Code(s): J18.1 - LOBAR PNEUMONIA, UNSPECIFIED ORGANISM (5) Anemia Code(s): D64.9 - ANEMIA, UNSPECIFIED Qualifiers: Other causes of anemia: chronic disease, kidney (6) Atrial flutter Code(s): I48.92 - UNSPECIFIED ATRIAL FLUTTER (7) Bacteremia Code(s): R78.81 - BACTEREMIA (8) COPD (chronic obstructive pulmonary disease) Code(s): J44.9 - CHRONIC OBSTRUCTIVE PULMONARY DISEASE, UNSPECIFIED (9) DMII (diabetes mellitus, type 2) Code(s): E11.9 - TYPE 2 DIABETES MELLITUS WITHOUT COMPLICATIONS Qualifiers: Diabetes mellitus complication detail: with other kidney complication (10) Dyspnea Code(s): R06.00 - DYSPNEA, UNSPECIFIED Qualifiers: Dyspnea type: shortness of breath Qualified Code(s): R06.02 - Shortness of breath (11) Pressure ulcer of lower extremity, stage 1 Code(s): L89.891 - PRESSURE ULCER OF OTHER SITE, STAGE 1 (12) Sepsis Code(s): A41.9 - SEPSIS, UNSPECIFIED ORGANISM Qualifiers: Sepsis type: sepsis due to unspecified organism Qualified Code(s): A41.9 - Sepsis, unspecified organism (13) Weakness of both lower limbs Code(s): M62.81 - MUSCLE WEAKNESS (GENERALIZED) (14) Wound of left shoulder Code(s): S41.002A - UNSPECIFIED OPEN WOUND OF LEFT SHOULDER, INITIAL ENCOUNTER Qualifiers: Encounter type: subsequent encounter Qualified Code(s): S41.002D - Unspecified open wound of left shoulder, subsequent encounter (15) Acute respiratory distress Code(s): R06.00 - DYSPNEA, UNSPECIFIED Assessment/Plan INTUBATED ON VENT SUPPORT SEPSIS ON ABX BP SUPPORT, LASIX DRIP,DOBUTAMINE FOR INOTROPIC EFFECT RENAL FAILURE NEPHROLOGY FOLLOW UP WILL NEED HD POOR OVERALL PROGNOSIS DISCUSSED WITH HIS BROTHER MARCIO AND NIECE OVER THE PHONE VERY CRITICAL AT THIS TIME SURGERY EVAL FOR LEG EDEMA AND LEFT BACK WOUND DVT PROPHYLAXIS
[2016-06-19] MEDS ORDERED: FUROSEMIDE 100 MG/10 ML INJECTABLE VIAL ONE ×2 (00:28→15:35)
[2016-06-19] MEDS ORDERED: DOBUTAMINE 250 MG/D5W - 250 ML ONE ×3 (01:37→18:36)
[2016-06-19] MEDS ORDERED: PT OWN MED DRAWER 7, Y5N ONE ×3 (04:56→18:35)
[2016-06-19] MEDS: PANTOPRAZOLE SODIUM 100 ML IVPB SCH ×2 (07:00→18:39)
[2016-06-19] MEDS: INSULIN SLIDING SCALE (NOVOLOG) 1 VIAL SQ SCH ×4 (07:00→22:17)
[2016-06-19] MEDS: LEVOTHYROXINE SODIUM 100 MCG VIAL IVPUSH SCH (07:01)
[2016-06-19 07:52] LABS: ARTERIAL BLD GAS O2 SATURATION 98.3 % (90-98.9); ARTERIAL BLOOD GAS BASE EXCESS -8.9 meq/l (-2-2); ARTERIAL BLOOD GAS HCO3 16.2 meq/L (22-26)
[2016-06-19 08:08] LABS: ALLENS TEST POSITIVE; ART PUNCT SITE RIGHT RADIAL; LPM/O2% 35%; MECH. VENT. YES; PT. ON O2? YES; TYPE OF O2 MECHANICAL VENT; VENT RATE 16; VT/PRESS 475 ML
[2016-06-19] MEDS: SEVELAMER CARBONATE 0.8 GM POWDER PACKET PO SCH ×3 (09:22→18:30)
[2016-06-19 09:34] LABS: MCH 28.2 pg (25.7-33.7); MCHC 31.9 g/dl (32.0-35.9); MEAN CELL VOLUME 88.2 fl (80-96); MEAN PLT VOLUME 8.3 fl (7.5-11.1); PLATELET COUNT 70 K/MM3 (134-434)
--- NOTE | 2016-06-19 09:41 | PN ---
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, Physician Chief Complaint: INTUBATED AWAKES TO VERBAL STIMULI - Current Medication List Current Medications: Active Medications Brimonidine Tartrate (Alphagan 0.2% -) 1 drop OU BID [facility] Last Admin: 06/18/16 21:17 Dose: 1 drop Chlorhexidine Gluconate (Peridex -) 15 ml MM BID [facility] Last Admin: 06/18/16 21:11 Dose: 15 ml Collagenase (Santyl -) 1 applic TP BID [facility] Last Admin: 06/18/16 21:45 Dose: 1 applic Pantoprazole Sodium (Protonix 40mg Ivpb (Pre-Docked)) 100 mls @ 200 mls/hr IVPB BID@0600,1800 [facility] Last Admin: 06/19/16 07:00 Dose: 200 mls/hr Dobutamine HCl 250,000 mcg/ (Sodium Chloride) 250 mls @ 31.98 mls/hr IV TITR [facility]; 5 MCG/KG/MIN PRN Reason: Protocol Last Admin: 06/18/16 17:42 Dose: 31.98 mls/hr Propofol (Diprivan -) 100 mls @ 3.213 mls/hr IVPB TITR [facility]; 5 MCG/KG/MIN PRN Reason: Protocol Last Admin: 06/18/16 19:00 Dose: 3.856 mls/hr Furosemide 100 mg/ Sodium (Chloride) 100 mls @ 10 mls/hr IVPB ASDIR [facility] PRN Reason: 10 MG/HR Last Admin: 06/18/16 16:44 Dose: 10 mls/hr Fentanyl 500 mcg/ Dextrose 100 mls @ 8 mls/hr IJ TITR [facility] PRN Reason: 40 MCG/HR Last Admin: 06/18/16 16:13 Dose: 8 mls/hr Insulin Aspart (Novolog Vial Sliding Scale -) 1 vial SQ ACHS [facility] PRN Reason: Protocol Last Admin: 06/19/16 07:00 Dose: 2 units Levothyroxine Sodium (Synthroid Injection -) 25 mcg IVPUSH AM [facility] Last Admin: 06/19/16 07:01 Dose: 25 mcg Sevelamer Carbonate (Renvela Powder Packet -) 0.8 gm PO TIDCM [facility] Last Admin: 06/19/16 09:22 Dose: 0.8 gm Silver Sulfadiazine (Silvadene -) 1 applic TP BID [facility] Last Admin: 06/18/16 21:17 Dose: 1 applic Sodium Bicarbonate (Sodium Bicarbonate -) 650 mg PO BID [facility] Last Admin: 06/18/16 21:11 Dose: 650 mg - Objective Vital Signs: Vital Signs Temperature 98.2 F 06/19/16 02:00 Pulse Rate 76 06/19/16 08:00 Respiratory Rate 16 06/19/16 08:00 Blood Pressure 112/67 06/19/16 08:00 O2 Sat by Pulse Oximetry (%) 100 06/18/16 21:00 Constitutional: Yes: Moderate Distress Eyes: Yes: WNL HENT: Yes: WNL Neck: Yes: WNL Cardiovascular: Yes: Pulse Irregular Respiratory: Yes: Mechanically Ventilated, Poor Air Entry Gastrointestinal: Yes: WNL Genitourinary: Yes: López Present Musculoskeletal: Yes: Muscle Weakness Extremities: Yes: Other Edema: Yes Edema: LLE: 2+, RLE: 2+ Peripheral Pulses WNL: Yes Integumentary: Yes: Pressure Ulcer, Venous Stasis Changes Wound/Incision: Yes: Draining, Reddened, Unapproximated Neurological: Yes: Pre-Existing Deficit, Weakness ...Motor Strength: LLE, RLE Psychiatric: Yes: Other Labs: CBC, BMP 06/18/16 05:20 INR, PTT INR 1.85 (0.82-1.09) H 06/11/16 05:15 Fibrinogen 405.0 mg/dL (238-498) 06/10/16 04:45 Problem List - Problems (1) CKD (chronic kidney disease) Code(s): N18.9 - CHRONIC KIDNEY DISEASE, UNSPECIFIED (2) Hyponatremia Code(s): E87.1 - HYPO-OSMOLALITY AND HYPONATREMIA (3) Hypotension Code(s): I95.9 - HYPOTENSION, UNSPECIFIED Qualifiers: Hypotension type: other hypotension type Qualified Code(s): I95.89 - Other hypotension (4) Lung consolidation Code(s): J18.1 - LOBAR PNEUMONIA, UNSPECIFIED ORGANISM (5) Anemia Code(s): D64.9 - ANEMIA, UNSPECIFIED Qualifiers: Other causes of anemia: chronic disease, kidney (6) Atrial flutter Code(s): I48.92 - UNSPECIFIED ATRIAL FLUTTER (7) Bacteremia Code(s): R78.81 - BACTEREMIA (8) COPD (chronic obstructive pulmonary disease) Code(s): J44.9 - CHRONIC OBSTRUCTIVE PULMONARY DISEASE, UNSPECIFIED (9) DMII (diabetes mellitus, type 2) Code(s): E11.9 - TYPE 2 DIABETES MELLITUS WITHOUT COMPLICATIONS Qualifiers: Diabetes mellitus complication detail: with other kidney complication (10) Dyspnea Code(s): R06.00 - DYSPNEA, UNSPECIFIED Qualifiers: Dyspnea type: shortness of breath Qualified Code(s): R06.02 - Shortness of breath (11) Pressure ulcer of lower extremity, stage 1 Code(s): L89.891 - PRESSURE ULCER OF OTHER SITE, STAGE 1 (12) Sepsis Code(s): A41.9 - SEPSIS, UNSPECIFIED ORGANISM Qualifiers: Sepsis type: sepsis due to unspecified organism Qualified Code(s): A41.9 - Sepsis, unspecified organism (13) Weakness of both lower limbs Code(s): M62.81 - MUSCLE WEAKNESS (GENERALIZED) (14) Wound of left shoulder Code(s): S41.002A - UNSPECIFIED OPEN WOUND OF LEFT SHOULDER, INITIAL ENCOUNTER Qualifiers: Encounter type: subsequent encounter Qualified Code(s): S41.002D - Unspecified open wound of left shoulder, subsequent encounter (15) Acute respiratory distress Code(s): R06.00 - DYSPNEA, UNSPECIFIED Assessment/Plan INTUBATED ON VENT SUPPORT SEPSIS ON ABX ANEMIA WORSE, DISCUSS WITH NEPHROLOGY IF PRBC TRANSFUSION CAN BE TOLERATED BP SUPPORT, LASIX DRIP,DOBUTAMINE FOR INOTROPIC EFFECT RENAL FAILURE NEPHROLOGY FOLLOW UP WILL NEED HD POOR OVERALL PROGNOSIS DISCUSSED WITH HIS BROTHER MARCIO AND NIECE OVER THE PHONE VERY CRITICAL AT THIS TIME SURGERY EVAL FOR LEG EDEMA AND LEFT BACK WOUND DVT PROPHYLAXIS
[2016-06-19] MEDS: BRIMONIDINE TARTRATE 0.2% OPHTHALMIC 5 ML BOTTLE OU SCH ×2 (09:44→22:17)
[2016-06-19] MEDS: CHLORHEXIDINE GLUCONATE 0.12% 15ML CUP MM SCH ×2 (09:44→22:16)
[2016-06-19] MEDS: COLLAGENASE CLOSTRIDIUM HIST. 30 GRAMS TUBE TP SCH ×2 (09:44→22:19)
[2016-06-19] MEDS: SODIUM BICARBONATE 650 MG TABLET PO SCH ×2 (09:45→22:16)
[2016-06-19] MEDS: SILVER SULFADIAZINE 1% TOP CREAM 50 GM JAR TP SCH ×2 (09:45→22:18)
--- NOTE | 2016-06-19 10:08 | PN ---
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, Physician Chief Complaint: No new events. History of Present Illness: No new events. Patient remains intubated and on lasix and dobutamine gtt. - Current Medication List Current Medications: Active Medications Brimonidine Tartrate (Alphagan 0.2% -) 1 drop OU BID [facility] Last Admin: 06/19/16 09:44 Dose: 1 drop Chlorhexidine Gluconate (Peridex -) 15 ml MM BID [facility] Last Admin: 06/19/16 09:44 Dose: 15 ml Collagenase (Santyl -) 1 applic TP BID [facility] Last Admin: 06/19/16 09:44 Dose: 1 applic Pantoprazole Sodium (Protonix 40mg Ivpb (Pre-Docked)) 100 mls @ 200 mls/hr IVPB BID@0600,1800 [facility] Last Admin: 06/19/16 07:00 Dose: 200 mls/hr Dobutamine HCl 250,000 mcg/ (Sodium Chloride) 250 mls @ 31.98 mls/hr IV TITR [facility]; 5 MCG/KG/MIN PRN Reason: Protocol Last Admin: 06/18/16 17:42 Dose: 31.98 mls/hr Propofol (Diprivan -) 100 mls @ 3.213 mls/hr IVPB TITR [facility]; 5 MCG/KG/MIN PRN Reason: Protocol Last Admin: 06/18/16 19:00 Dose: 3.856 mls/hr Furosemide 100 mg/ Sodium (Chloride) 100 mls @ 10 mls/hr IVPB ASDIR [facility] PRN Reason: 10 MG/HR Last Admin: 06/18/16 16:44 Dose: 10 mls/hr Fentanyl 500 mcg/ Dextrose 100 mls @ 8 mls/hr IJ TITR [facility] PRN Reason: 40 MCG/HR Last Admin: 06/18/16 16:13 Dose: 8 mls/hr Insulin Aspart (Novolog Vial Sliding Scale -) 1 vial SQ ACHS [facility] PRN Reason: Protocol Last Admin: 06/19/16 07:00 Dose: 2 units Levothyroxine Sodium (Synthroid Injection -) 25 mcg IVPUSH AM [facility] Last Admin: 06/19/16 07:01 Dose: 25 mcg Sevelamer Carbonate (Renvela Powder Packet -) 0.8 gm PO TIDCM [facility] Last Admin: 06/19/16 09:22 Dose: 0.8 gm Silver Sulfadiazine (Silvadene -) 1 applic TP BID [facility] Last Admin: 06/19/16 09:45 Dose: 1 applic Sodium Bicarbonate (Sodium Bicarbonate -) 650 mg PO BID [facility] Last Admin: 06/19/16 09:45 Dose: 650 mg - Objective Vital Signs: Vital Signs Temperature 98.2 F 06/19/16 02:00 Pulse Rate 76 06/19/16 08:00 Respiratory Rate 16 06/19/16 08:00 Blood Pressure 112/67 06/19/16 08:00 O2 Sat by Pulse Oximetry (%) 100 06/18/16 21:00 HENT: Yes: Atraumatic, Normocephalic Cardiovascular: Yes: Pulse Irregular, JVD Respiratory: Yes: Diminished, Intubated, Mechanically Ventilated Gastrointestinal: Yes: Normal Bowel Sounds, Soft Edema: LLE: 2+, RLE: 2+ Labs: CBC, BMP 06/19/16 09:00 06/18/16 05:20 INR, PTT INR 1.85 (0.82-1.09) H 06/11/16 05:15 Fibrinogen 405.0 mg/dL (238-498) 06/10/16 04:45 Assessment/Plan 76 yo male with known CAD, prior DC (mild diffuse prox RCA disease, no intervention), paroxysmal atrial fib/flutter (on Eliquis), HFrEF (severely reduced LV systolic function per 04/14/16 echo), HTN, DM, CKD, hyperlipidemia, who was recently hospitalized at [facility] from 05/23-06/02/16 for cellulitis/abscess of left shoulder and lower extremities, and bacteremia. Admitted with septic shock, acute on chronic renal failure, hyperkalemia, and anemia requiring pressor/inotropic support. Possible HCAP? Multiple skin ulcers - skin infection. Severe global hypokinesis per 06/10/16 echocardiogram. Patient' s heart failure is also contributing to patient's hypotension. Currently on lasix gtt and dobutamine gtt. Poor prognosis. RECS: Currently on dobutamine gtt 5 mcg/kg/min. May increase dobutamine to 10 mcg/kg/ min if needed to help augment BP. Try to minimize fentanyl since this is likely contributing to current hypotension. Resume levophed gtt prn to maintain BP. Monitor for potential tachyarrhythmias while on dobutamine gtt. Currently on lasix gtt with no significant improvement in renal function to date. Labs today pending. Patient may need to start hemodialysis in near future. Continue to hold anticoagulation for afib given anemia. Strict I&O. Daily weight. Further recs as per ICU team, nephrology, and ID service. Please call with questions.
[2016-06-19 10:42] LABS: URINE APPEARANCE SLCLOUDY; URINE BILIRUBIN NEGATIVE (NEGATIVE); URINE COLOR LTYELLOW; URINE GLUCOSE (UA) NEGATIVE (NEGATIVE); URINE KETONE NEGATIVE (NEGATIVE); URINE NITRITE NEGATIVE (NEGATIVE); URINE PROTEIN NEGATIVE (NEGATIVE); URINE UROBILINOGEN NEGATIVE E.U./dl (0.2-1.0)
[2016-06-19 10:43] LABS: URINE BLOOD 1+ (NEGATIVE); URINE LEUK ESTERASE 3+ (NEGATIVE)
[2016-06-19 10:48] LABS: CALCIUM 7.6 mg/dL (8.5-10.1); COCKROFT - GAULT 18.63; CREATININE 4.9 mg/dL (0.7-1.3); MAGNESIUM 1.9 mg/dL (1.8-2.4); PHOSPHOROUS 6.4 mg/dL (2.5-4.9)
[2016-06-19 11:24] LABS: URINE MUCUS RARE; URINE RBC 19 /hpf (0-3); URINE WBC 54 /hpf (3-5); YEAST FEW
--- NOTE | 2016-06-19 12:51 | PN ---
Teaching Attending Note Name of Resident: Patricio Andrade ATTENDING PHYSICIAN STATEMENT I saw and evaluated the patient. I reviewed the resident's note and discussed the case with the resident. I agree with the resident's findings and plan as documented. SUBJECTIVE: Pt seen and examined in the ICU. Remains intubated, sedated. On lasix and dobutamine gtts. Still with positive fluid balance, BP slightly improved today. No fevers recorded. OBJECTIVE: Last Vital Signs Temp Pulse Resp BP Pulse Ox 97.8 F 96 H 16 121/71 100 06/19/16 08:00 06/19/16 12:00 06/19/16 12:00 06/19/16 12:00 06/19/16 09:58 Intake & Output 06/16/16 06/17/16 06/18/16 06/19/16 23:59 23:59 23:59 23:59 Intake Total 2348 663.6 2138 1504 Output Total 1050 1600 1550 500 Balance 1298 -936.4 588 1004 Weight 236 lb 1.841 oz 235 lb 7.259 oz 230 lb 6.129 oz 226 lb 8 oz Gen: intubated, sedated Heart: RRR Lung: scattered rhonchi Abd: soft, nontender Ext: + edema CBC, BMP 06/19/16 09:00 06/19/16 09:00 Active Medications Brimonidine Tartrate (Alphagan 0.2% -) 1 drop OU BID [facility] Last Admin: 06/19/16 09:44 Dose: 1 drop Chlorhexidine Gluconate (Peridex -) 15 ml MM BID [facility] Last Admin: 06/19/16 09:44 Dose: 15 ml Collagenase (Santyl -) 1 applic TP BID [facility] Last Admin: 06/19/16 09:44 Dose: 1 applic Pantoprazole Sodium (Protonix 40mg Ivpb (Pre-Docked)) 100 mls @ 200 mls/hr IVPB BID@0600,1800 [facility] Last Admin: 06/19/16 07:00 Dose: 200 mls/hr Dobutamine HCl 250,000 mcg/ (Sodium Chloride) 250 mls @ 31.98 mls/hr IV TITR [facility]; 5 MCG/KG/MIN PRN Reason: Protocol Last Admin: 06/18/16 17:42 Dose: 31.98 mls/hr Propofol (Diprivan -) 100 mls @ 3.213 mls/hr IVPB TITR [facility]; 5 MCG/KG/MIN PRN Reason: Protocol Last Admin: 06/18/16 19:00 Dose: 3.856 mls/hr Furosemide 100 mg/ Sodium (Chloride) 100 mls @ 10 mls/hr IVPB ASDIR [facility] PRN Reason: 10 MG/HR Last Admin: 06/18/16 16:44 Dose: 10 mls/hr Fentanyl 500 mcg/ Dextrose 100 mls @ 8 mls/hr IJ TITR [facility] PRN Reason: 40 MCG/HR Last Admin: 06/18/16 16:13 Dose: 8 mls/hr Insulin Aspart (Novolog Vial Sliding Scale -) 1 vial SQ ACHS [facility] PRN Reason: Protocol Last Admin: 06/19/16 12:00 Dose: Not Given Levothyroxine Sodium (Synthroid Injection -) 25 mcg IVPUSH AM [facility] Last Admin: 06/19/16 07:01 Dose: 25 mcg Sevelamer Carbonate (Renvela Powder Packet -) 0.8 gm PO TIDCM [facility] Last Admin: 06/19/16 12:46 Dose: 0.8 gm Silver Sulfadiazine (Silvadene -) 1 applic TP BID [facility] Last Admin: 06/19/16 09:45 Dose: 1 applic Sodium Bicarbonate (Sodium Bicarbonate -) 650 mg PO BID [facility] Last Admin: 06/19/16 09:45 Dose: 650 mg ASSESSMENT AND PLAN: Acute Respiratory Failure Back/Shoulder Cellulitis/Abscess Septic vs Cardiogenic Shock Acute on Chronic Renal Failure Metabolic Acidosis Acute on Chronic LV Systolic Heart Failure Atrial Fibrillation COPD Hyponatremia Atelectasis improving - continue dobutamine/lasix gtts - start levophed gtt if hypotensive - keep net negative fluid balance - may still need HD - s/p antibiotic course - recall surgery for leg ulcer - O2 to keep SpO2 >90% - aspiration precautions - inhaled bronchodilators - enteral feeds - DVT/GI prophylaxis - continue ICU monitoring critical care time spent reviewing chart, evaluating patient and formulating plan 35 min
--- NOTE | 2016-06-19 13:24 | PN ---
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, Physician History of Present Illness: Pt seen and examined at bedside. He remains in the ICU. He is lethargic. - Current Medication List Current Medications: Active Medications Brimonidine Tartrate (Alphagan 0.2% -) 1 drop OU BID [facility] Last Admin: 06/19/16 09:44 Dose: 1 drop Chlorhexidine Gluconate (Peridex -) 15 ml MM BID [facility] Last Admin: 06/19/16 09:44 Dose: 15 ml Collagenase (Santyl -) 1 applic TP BID [facility] Last Admin: 06/19/16 09:44 Dose: 1 applic Pantoprazole Sodium (Protonix 40mg Ivpb (Pre-Docked)) 100 mls @ 200 mls/hr IVPB BID@0600,1800 [facility] Last Admin: 06/19/16 07:00 Dose: 200 mls/hr Dobutamine HCl 250,000 mcg/ (Sodium Chloride) 250 mls @ 31.98 mls/hr IV TITR [facility]; 5 MCG/KG/MIN PRN Reason: Protocol Last Admin: 06/18/16 17:42 Dose: 31.98 mls/hr Propofol (Diprivan -) 100 mls @ 3.213 mls/hr IVPB TITR [facility]; 5 MCG/KG/MIN PRN Reason: Protocol Last Admin: 06/18/16 19:00 Dose: 3.856 mls/hr Furosemide 100 mg/ Sodium (Chloride) 100 mls @ 10 mls/hr IVPB ASDIR [facility] PRN Reason: 10 MG/HR Last Admin: 06/18/16 16:44 Dose: 10 mls/hr Fentanyl 500 mcg/ Dextrose 100 mls @ 8 mls/hr IJ TITR [facility] PRN Reason: 40 MCG/HR Last Admin: 06/18/16 16:13 Dose: 8 mls/hr Insulin Aspart (Novolog Vial Sliding Scale -) 1 vial SQ ACHS [facility] PRN Reason: Protocol Last Admin: 06/19/16 12:00 Dose: Not Given Levothyroxine Sodium (Synthroid Injection -) 25 mcg IVPUSH AM [facility] Last Admin: 06/19/16 07:01 Dose: 25 mcg Sevelamer Carbonate (Renvela Powder Packet -) 0.8 gm PO TIDCM [facility] Last Admin: 06/19/16 12:46 Dose: 0.8 gm Silver Sulfadiazine (Silvadene -) 1 applic TP BID [facility] Last Admin: 06/19/16 09:45 Dose: 1 applic Sodium Bicarbonate (Sodium Bicarbonate -) 650 mg PO BID [facility] Last Admin: 06/19/16 09:45 Dose: 650 mg - Objective Vital Signs: Vital Signs Temperature 97.8 F 06/19/16 08:00 Pulse Rate 96 H 06/19/16 12:00 Respiratory Rate 16 06/19/16 12:00 Blood Pressure 121/71 06/19/16 12:00 O2 Sat by Pulse Oximetry (%) 100 06/19/16 09:58 Constitutional: Yes: Calm Eyes: Yes: Conjunctiva Clear Cardiovascular: Yes: S1, S2 Respiratory: Yes: Mechanically Ventilated Gastrointestinal: Yes: Soft, Abdomen, Obese Genitourinary: Yes: Cunningham Present Musculoskeletal: Yes: Muscle Weakness Edema: Yes Edema: LLE: 2+, RLE: 2+ Integumentary: Yes: Venous Stasis Changes Wound/Incision: Yes: Dressing Dry and Intact Labs: CBC, BMP 06/19/16 09:00 06/19/16 09:00 INR, PTT INR 1.85 (0.82-1.09) H 06/11/16 05:15 Fibrinogen 405.0 mg/dL (238-498) 06/10/16 04:45 Problem List - Problems (1) Acute hyperkalemia Code(s): E87.5 - HYPERKALEMIA (2) Hyponatremia Code(s): E87.1 - HYPO-OSMOLALITY AND HYPONATREMIA (3) Hypotension Code(s): I95.9 - HYPOTENSION, UNSPECIFIED Qualifiers: Hypotension type: other hypotension type Qualified Code(s): I95.89 - Other hypotension (4) Acute on chronic renal failure Code(s): N17.9 - ACUTE KIDNEY FAILURE, UNSPECIFIED N18.9 - CHRONIC KIDNEY DISEASE, UNSPECIFIED (5) Anemia Code(s): D64.9 - ANEMIA, UNSPECIFIED Qualifiers: Other causes of anemia: chronic disease, kidney (6) COPD (chronic obstructive pulmonary disease) Code(s): J44.9 - CHRONIC OBSTRUCTIVE PULMONARY DISEASE, UNSPECIFIED (7) Congestive heart failure (CHF) Code(s): I50.9 - HEART FAILURE, UNSPECIFIED Qualifiers: Congestive heart failure type: systolic Congestive heart failure chronicity: chronic Qualified Code(s): I50.22 - Chronic systolic (congestive ) heart failure (8) DMII (diabetes mellitus, type 2) Code(s): E11.9 - TYPE 2 DIABETES MELLITUS WITHOUT COMPLICATIONS Qualifiers: Diabetes mellitus complication detail: with other kidney complication (9) CKD (chronic kidney disease) Code(s): N18.9 - CHRONIC KIDNEY DISEASE, UNSPECIFIED Assessment/Plan Current Medications Generic Name Dose Route Start Last Admin Trade Name Freq PRN Reason Stop Dose Admin Brimonidine Tartrate 1 drop 06/10/16 10:00 06/19/16 09:44 Alphagan 0.2% - OU 1 drop BID [facility] Administration Chlorhexidine Gluconate 15 ml 06/17/16 23:30 06/19/16 09:44 Peridex - MM 15 ml BID [facility] Administration Collagenase 1 applic 06/13/16 22:00 06/19/16 09:44 Santyl - TP 1 applic BID [facility] Administration Pantoprazole Sodium 100 mls @ 200 mls/hr 06/10/16 06:00 06/19/16 07:00 Protonix 40mg Ivpb (Pre-Docked) IVPB 200 mls/hr BID@0600,1800 [facility] Administration Dobutamine HCl 250,000 mcg/ 250 mls @ 31.98 mls/hr 06/15/16 11:00 06/18/16 17: 42 Sodium Chloride IV 31.98 mls/hr TITR [facility] Administration Protocol 5 MCG/KG/MIN Propofol 100 mls @ 3.213 mls/hr 06/16/16 18:30 06/18/16 19:00 Diprivan - IVPB 3.856 mls/hr TITR [facility] Administration Protocol 5 MCG/KG/MIN Furosemide 100 mg/ Sodium 100 mls @ 10 mls/hr 06/18/16 13:08 06/18/16 16:44 Chloride IVPB 10 mls/hr ASDIR [facility] Administration 10 MG/HR Fentanyl 500 mcg/ Dextrose 100 mls @ 8 mls/hr 06/18/16 14:31 06/18/16 16:13 IJ 8 mls/hr TITR [facility] Administration 40 MCG/HR Insulin Aspart 1 vial 06/10/16 16:30 06/19/16 12:00 Novolog Vial Sliding Scale - SQ Not Given ACHS [facility] Protocol Levothyroxine Sodium 25 mcg 06/10/16 07:00 06/19/16 07:01 Synthroid Injection - IVPUSH 25 mcg AM [facility] Administration Sevelamer Carbonate 0.8 gm 06/15/16 12:50 06/19/16 12:46 Renvela Powder Packet - PO 0.8 gm TIDCM [facility] Administration Silver Sulfadiazine 1 applic 06/17/16 22:00 06/19/16 09:45 Silvadene - TP 1 applic BID [facility] Administration Sodium Bicarbonate 650 mg 06/12/16 22:00 06/19/16 09:45 Sodium Bicarbonate - PO 650 mg BID [facility] Administration Impression 1. CASE on CKD 2. sepsis with shock 3. cellulitis/abscess of back 4. CHF acute 5. hypothyroidism 6. hyperlipidemia 7. COPD 8. htn 9. a-fib 10. hyponatremia - isoosmolar 11. acute respiratory failure requiring intubation Plan - cont with lasix - attempt to keep pt net negative - will call vascular to discuss HD access - likely HD in am - monitor pressure and taper pressors as tolerated - attempt to minimize volume intake - discussed with ICU team - sodium is stabilizing - keep cunningham in place and monitor output - will follow Dr Martinez
--- NOTE | 2016-06-19 13:34 | PN ---
Physical Exam: SUBJECTIVE: Patient seen and examined patient intubated and sedated on fentanyl and propofol on dobutamin 5 bp 102/52 spo2 100 on fio2 35, peep 5, tv 475, rr 16 platelets stable on lasix 10mg/hr OBJECTIVE: Vital Signs Period Temp Pulse Resp BP Sys/Hubbard Pulse Ox Last 24 Hr 96.4 F-98.2 F 64-96 12-19 101-129/57-75 100-100 GENERAL:intubated and sedated HEAD: Normal with no signs of trauma. EYES: Pupils equal, round and reactive to light, NECK no lymphadenopathy LUNGS:b/l air entry present, diffuse ronchi, no wheez HEART: s1s2 normal, ABDOMEN: Soft, nontender, not distended, normoactive bowel sounds, no guarding, no rebound, no masses. scrotal and penile swelling present UPPER EXTREMITIES: 2+ pulses, warm, well-perfused. No cyanosis. No clubbing. Cap refill <2 seconds. . LOWER EXTREMITIES: multiple ulcers resent on b/l lower limb, b/l pitting edema + + NEUROLOGICAL: unobtainable Laboratory Results - last 24 hr 06/16/16 06/18/16 06/18/16 07:30 11:02 17:22 WBC RBC Hgb Hct MCV MCHC RDW Plt Count MPV Neutrophils % Lymphocytes % Puncture Site ABG pH ABG pCO2 at Pt Temp ABG pO2 at Pt Temp ABG HCO3 ABG O2 Sat (Measured) ABG O2 Content ABG Base Excess Frankie Test O2 Delivery Device Oxygen Flow Rate Vent Mode Vent Rate Mechanical Rate PEEP Pressure Support Vent Sodium Potassium Chloride Carbon Dioxide Anion Gap BUN Creatinine POC Glucometer [phone] Random Glucose Calcium Phosphorus Magnesium Urine Color Urine Appearance Urine pH Ur Specific [place] Urine Protein Urine Glucose (UA) Urine Ketones Urine Blood Urine Nitrite Urine Bilirubin Urine Urobilinogen Ur Leukocyte Esterase Urine RBC Urine WBC Urine Mucus Urine Yeast Blood Type A POSITIVE Antibody Screen Negative Crossmatch See Detail 06/18/16 06/19/16 06/19/16 21:13 06:20 07:20 WBC RBC Hgb Hct MCV MCHC RDW Plt Count MPV Neutrophils % Lymphocytes % Puncture Site Right radial ABG pH 7.30 L ABG pCO2 at Pt Temp 33.8 L ABG pO2 at Pt Temp 109.0 H ABG HCO3 16.2 L ABG O2 Sat (Measured) 98.3 ABG O2 Content 10.9 L ABG Base Excess -8.9 L Frankie Test Positive O2 Delivery Device Mechanical vent Oxygen Flow Rate 35% Vent Mode A/c Vent Rate 16 Mechanical Rate Yes PEEP 5.0 Pressure Support Vent 475 ml Sodium Potassium Chloride Carbon Dioxide Anion Gap BUN Creatinine POC Glucometer 160.11733 [phone] Random Glucose Calcium Phosphorus Magnesium Urine Color Urine Appearance Urine pH Ur Specific [place] Urine Protein Urine Glucose (UA) Urine Ketones Urine Blood Urine Nitrite Urine Bilirubin Urine Urobilinogen Ur Leukocyte Esterase Urine RBC Urine WBC Urine Mucus Urine Yeast Blood Type Antibody Screen Crossmatch 06/19/16 06/19/16 06/19/16 09:00 09:00 10:00 WBC 22.0 H D RBC 3.23 L D Hgb 9.1 L D Hct 28.5 L D MCV 88.2 MCHC 31.9 L RDW 17.0 H Plt Count 70 L MPV 8.3 Neutrophils % Y Lymphocytes % Y Puncture Site ABG pH ABG pCO2 at Pt Temp ABG pO2 at Pt Temp ABG HCO3 ABG O2 Sat (Measured) ABG O2 Content ABG Base Excess Frankie Test O2 Delivery Device Oxygen Flow Rate Vent Mode Vent Rate Mechanical Rate PEEP Pressure Support Vent Sodium 133 L Potassium 4.5 Chloride 99 Carbon Dioxide 18 L Anion Gap 16 BUN 112 H* Creatinine 4.9 H POC Glucometer Random Glucose 65 L Calcium 7.6 L Phosphorus 6.4 H Magnesium 1.9 Urine Color Ltyellow Urine Appearance Slcloudy Urine pH 5.0 Ur Specific [place] 1.008 Urine Protein Negative Urine Glucose (UA) Negative Urine Ketones Negative Urine Blood 1+ H Urine Nitrite Negative Urine Bilirubin Negative Urine Urobilinogen Negative Ur Leukocyte Esterase 3+ H Urine RBC 19 Urine WBC 54 Urine Mucus Rare Urine Yeast Few Blood Type Antibody Screen Crossmatch Active Medications Generic Name Dose Route Start Last Admin Trade Name Freq PRN Reason Stop Dose Admin Brimonidine Tartrate 1 drop 06/10/16 10:00 06/19/16 09:44 Alphagan 0.2% - OU 1 drop BID [facility] Administration Chlorhexidine Gluconate 15 ml 06/17/16 23:30 06/19/16 09:44 Peridex - MM 15 ml BID [facility] Administration Collagenase 1 applic 06/13/16 22:00 06/19/16 09:44 Santyl - TP 1 applic BID [facility] Administration Pantoprazole Sodium 100 mls @ 200 mls/hr 06/10/16 06:00 06/19/16 07:00 Protonix 40mg Ivpb (Pre-Docked) IVPB 200 mls/hr BID@0600,1800 [facility] Administration Dobutamine HCl 250,000 mcg/ 250 mls @ 31.98 mls/hr 06/15/16 11:00 06/18/16 17: 42 Sodium Chloride IV 31.98 mls/hr TITR [facility] Administration Protocol 5 MCG/KG/MIN Propofol 100 mls @ 3.213 mls/hr 06/16/16 18:30 06/18/16 19:00 Diprivan - IVPB 3.856 mls/hr TITR [facility] Administration Protocol 5 MCG/KG/MIN Furosemide 100 mg/ Sodium 100 mls @ 10 mls/hr 06/18/16 13:08 06/18/16 16:44 Chloride IVPB 10 mls/hr ASDIR [facility] Administration 10 MG/HR Fentanyl 500 mcg/ Dextrose 100 mls @ 8 mls/hr 06/18/16 14:31 06/18/16 16:13 IJ 8 mls/hr TITR [facility] Administration 40 MCG/HR Insulin Aspart 1 vial 06/10/16 16:30 06/19/16 12:00 Novolog Vial Sliding Scale - SQ Not Given ACHS [facility] Protocol Levothyroxine Sodium 25 mcg 06/10/16 07:00 06/19/16 07:01 Synthroid Injection - IVPUSH 25 mcg AM [facility] Administration Sevelamer Carbonate 0.8 gm 06/15/16 12:50 06/19/16 12:46 Renvela Powder Packet - PO 0.8 gm TIDCM [facility] Administration Silver Sulfadiazine 1 applic 06/17/16 22:00 06/19/16 09:45 Silvadene - TP 1 applic BID [facility] Administration Sodium Bicarbonate 650 mg 06/12/16 22:00 06/19/16 09:45 Sodium Bicarbonate - PO 650 mg BID [facility] Administration ASSESSMENT/PLAN: shock secondary to sepsis afebrile, wbc 15, patient could have septic shock with cardiogenic shock monitor vitals monitor intake/ output, try to keep negative balance follow abg in morning on dobutamin drip. blood culture no growth urine culture no growth surgery consult appreciated: shoulder wound less likely a source of infection. Id on case repeat vascular surgery consult for ulcers on b/l lower limb hyponatremia improving Na 133 monitor sodium increase 0.5 to 1 meq/hr not more than 12 meq in 24 hour abdiaziz on ckd cr 4.9, bun 114 avoid nephrotoxic drugs avoid iv fluid nephrology consult appreciated on Lasix drip 10mg/hr monitor creatinine, bun, k Acute respiratory failure with left side atelectasis intubated, sedated, on ventilator support left side atelectasis resolved keep spo2 over 90 duoneb nebulizer take aspiration precautions give trial on cpap Hyperkalemia K stable to 4.5 monitor K acute on chronic LV heart failure avoid Iv fluid daily weight maintain negative balance. on iV lasix drip at 10mg/hr monitor IO LV systolic function severly reduced, LV global hypokinesia lactic acidosis improved hypothermia on hector hugger prn h/o cad, A flutter/ fibrillation , chf, global hypokinesia alaquis on hold due to anemia, cardiology on case last echo on 06/10 ef 28 and global hypokinesia anemia hb 7 follow stool for occult blood h/o copd not active on duoneb DM on sliding scale follow bgm h/o hypothyroid on synthyroid fluid ; avoid IV fluid electrolyte ; repeat in am nutrition ; tube feed dvt pro heparin d/c due to thrombocytopenia. HIT antibody pending. gi pro : on protonix patient is full code. dispo : admit in icu Visit type - Emergency Visit Emergency Visit: Yes ED Registration Date: 06/10/16 Care time: The patient presented to the Emergency Department on the above date and was hospitalized for further evaluation of their emergent condition. - New Patient This patient is new to me today: No - Critical Care Critical Care patient: Yes Total Critical Care Time (in minutes): 60 Critical Care Statement: The care of this patient involved high complexity decision making to prevent further life threatening deterioration of the patient 's condition and/or to evalute & treat vital organ system(s) failure or risk of failure.
[2016-06-19] MEDS: FUROSEMIDE INJECTION 100 MG in SODIUM CHLORIDE 90 ML IVPB SCH (15:45)
--- NOTE | 2016-06-19 16:11 | PN ---
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 (short form) - Note 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: asked to see patient in f/u off antibiotics since 06/15 rising WBC now 22k on dobutamine on dobutamin remains intubated (06/16) Vital Signs Period Temp Pulse Resp BP Sys/Hubbard Pulse Ox Last 24 Hr 96.6 F-98.2 F 64-98 12-20 102-131/57-82 100-100 cor-rrr lungs decreased bs at bases abd soft,nt ext legs with eschars +foul smellling no drainage CBC, BMP 06/19/16 09:00 06/19/16 09:00 Microbiology 06/18/16 15:15 Blood - Peripheral Venous Blood Culture - Preliminary NO GROWTH OBTAINED AFTER 24 HOURS, INCUBATION TO CONTINUE FOR 4 DAYS. 06/18/16 15:35 Blood - Peripheral Venous Blood Culture - Preliminary NO GROWTH OBTAINED AFTER 24 HOURS, INCUBATION TO CONTINUE FOR 4 DAYS. 06/10/16 04:30 Nasopharyngeal Swab Respiratory Virus Panel - Preliminary a/p rising WBC- unclear source, ?legs suggest bedside sono of gallbladder, if unrevealing, ct scan chest/abd/pelvis, recent ct scan abd/pelvis 05/28 unrevealing cultures pending vancomycin one dose cefepime adjusted for renal failure cardiomyopathy CASE/CKD resp failure
[2016-06-19] MEDS ORDERED: CEFEPIME HCL 1 GM VIAL (RESTRICTED TO ID) IVPB SCH (16:15)
[2016-06-19] MEDS: CEFEPIME 1 GM in DEXTROSE 5%-WATER - 100 ML IVPB SCH (18:39)
[2016-06-19] MEDS: DOBUTAMINE HCL 250,000 MCG in SODIUM CHLORIDE 230 ML IV SCH (18:40)
[2016-06-19] MEDS: PROPOFOL 100 ML IVPB SCH (18:50)
[2016-06-19] MEDS: FENTANYL INJECTION 500 MCG in DEXTROSE 5%-WATER - 90 ML IJ SCH (18:52)
[2016-06-19 18:55] LABS: PLATELET ESTIMATE SLT DECREASED (NORMAL)
[2016-06-20] MEDS ORDERED: FUROSEMIDE 100 MG/10 ML INJECTABLE VIAL ONE ×3 (00:07→20:31)
[2016-06-20] MEDS ORDERED: DOBUTAMINE 250 MG/D5W - 250 ML ONE ×2 (00:08→20:29)
[2016-06-20 06:45] LABS: MCH 28.6 pg (25.7-33.7); MEAN CELL VOLUME 86.5 fl (80-96); MEAN PLT VOLUME 8.5 fl (7.5-11.1); PLATELET COUNT 88 K/MM3 (134-434); RDW 17.7 % (11.9-15.9); WHITE BLOOD COUNT 24.4 K/mm3 (4.0-10.0)
[2016-06-20] MEDS: LEVOTHYROXINE SODIUM 100 MCG VIAL IVPUSH SCH (06:50)
[2016-06-20] MEDS: INSULIN SLIDING SCALE (NOVOLOG) 1 VIAL SQ SCH ×3 (06:50→21:52)
[2016-06-20] MEDS: PANTOPRAZOLE SODIUM 100 ML IVPB SCH ×2 (06:51→17:27)
[2016-06-20 07:17] LABS: CALCIUM 7.3 mg/dL (8.5-10.1)
[2016-06-20 07:19] LABS: ARTERIAL BLD GAS O2 SATURATION 93.4 % (90-98.9); ARTERIAL BLOOD GAS BASE EXCESS -8.3 meq/l (-2-2); ARTERIAL BLOOD GAS HCO3 16.2 meq/L (22-26); ARTERIAL BLOOD GAS PO2 70.4 mmHg (70-100); ARTERIAL BLOOD GAS pH 7.34 (7.35-7.45)
[2016-06-20 07:20] LABS: ALLENS TEST POSITIVE; ART PUNCT SITE RIGHT RADIAL; LPM/O2% 35%; MECH. VENT. YES; PT. ON O2? YES; TYPE OF O2 VENT; VENT RATE 16; VT/PRESS 475
[2016-06-20 07:21] LABS: COCKROFT - GAULT 18.86
--- NOTE | 2016-06-20 08:13 | PN ---
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, Physician Chief Complaint: ID Remains intubated Dobutamine Afebrile Vancomycin and Cefepime - Current Medication List Current Medications: Active Medications Brimonidine Tartrate (Alphagan 0.2% -) 1 drop OU BID [facility] Last Admin: 06/19/16 22:17 Dose: 1 drop Chlorhexidine Gluconate (Peridex -) 15 ml MM BID [facility] Last Admin: 06/19/16 22:16 Dose: 15 ml Collagenase (Santyl -) 1 applic TP BID [facility] Last Admin: 06/19/16 22:19 Dose: 1 applic Pantoprazole Sodium (Protonix 40mg Ivpb (Pre-Docked)) 100 mls @ 200 mls/hr IVPB BID@0600,1800 [facility] Last Admin: 06/20/16 06:51 Dose: 200 mls/hr Dobutamine HCl 250,000 mcg/ (Sodium Chloride) 250 mls @ 31.98 mls/hr IV TITR [facility]; 5 MCG/KG/MIN PRN Reason: Protocol Last Admin: 06/19/16 18:40 Dose: 31.98 mls/hr Propofol (Diprivan -) 100 mls @ 3.213 mls/hr IVPB TITR [facility]; 5 MCG/KG/MIN PRN Reason: Protocol Last Admin: 06/19/16 18:50 Dose: Not Given Furosemide 100 mg/ Sodium (Chloride) 100 mls @ 10 mls/hr IVPB ASDIR [facility] PRN Reason: 10 MG/HR Last Admin: 06/19/16 15:45 Dose: 10 mls/hr Fentanyl 500 mcg/ Dextrose 100 mls @ 8 mls/hr IJ TITR [facility] PRN Reason: 40 MCG/HR Last Admin: 06/19/16 18:52 Dose: Not Given Cefepime HCl 1 gm/ Dextrose 100 mls @ 200 mls/hr IVPB DAILY@1700 [facility] Last Admin: 06/19/16 18:39 Dose: 200 mls/hr Insulin Aspart (Novolog Vial Sliding Scale -) 1 vial SQ ACHS [facility] PRN Reason: Protocol Last Admin: 06/20/16 06:50 Dose: Not Given Levothyroxine Sodium (Synthroid Injection -) 25 mcg IVPUSH AM [facility] Last Admin: 06/20/16 06:50 Dose: 25 mcg Sevelamer Carbonate (Renvela Powder Packet -) 0.8 gm PO TIDCM [facility] Last Admin: 06/19/16 18:30 Dose: 0.8 gm Silver Sulfadiazine (Silvadene -) 1 applic TP BID [facility] Last Admin: 06/19/16 22:18 Dose: 1 applic Sodium Bicarbonate (Sodium Bicarbonate -) 650 mg PO BID [facility] Last Admin: 06/19/16 22:16 Dose: 650 mg - Objective Vital Signs: Vital Signs Temperature 97.8 F 06/20/16 06:00 Pulse Rate 100 H 06/20/16 06:00 Respiratory Rate 24 06/20/16 07:25 Blood Pressure 111/98 06/20/16 06:00 O2 Sat by Pulse Oximetry (%) 98 06/19/16 20:48 Integumentary: Yes: Other (Large decubitus ulcers) Labs: CBC, BMP 06/20/16 06:15 06/20/16 06:15 INR, PTT INR 1.85 (0.82-1.09) H 06/11/16 05:15 Fibrinogen 405.0 mg/dL (238-498) 06/10/16 04:45 Assessment/Plan Microbiology 06/18/16 17:00 Blood - Picc Line Blood Culture - Preliminary NO GROWTH OBTAINED AFTER 24 HOURS, INCUBATION TO CONTINUE FOR 4 DAYS. 06/18/16 15:35 Blood - Peripheral Venous Blood Culture - Preliminary NO GROWTH OBTAINED AFTER 24 HOURS, INCUBATION TO CONTINUE FOR 4 DAYS. Laboratory Tests 06/20/16 06:15 WBC 24.4 H Plt Count 88 L D Assessment Sepsis unknown source ? skin related Respiratory failure Decubitus ulcers Plan Add metronidazole for anaerobic coverage Await cultures jennifer Ponce MD
[2016-06-20] MEDS: SEVELAMER CARBONATE 0.8 GM POWDER PACKET PO SCH ×3 (08:35→17:24)
[2016-06-20 08:57] LABS: PLATELET ESTIMATE DECREASED (NORMAL)
[2016-06-20] MEDS ORDERED: PT OWN MED DRAWER 7, Y5N ONE ×2 (09:31→17:19)
[2016-06-20] MEDS: FUROSEMIDE INJECTION 100 MG in SODIUM CHLORIDE 90 ML IVPB SCH ×3 (09:41→21:24)
[2016-06-20] MEDS: PROPOFOL 100 ML IVPB SCH (09:41)
[2016-06-20] MEDS: SODIUM BICARBONATE 650 MG TABLET PO SCH ×2 (09:47→21:25)
[2016-06-20] MEDS: CHLORHEXIDINE GLUCONATE 0.12% 15ML CUP MM SCH ×2 (09:50→21:26)
[2016-06-20] MEDS: BRIMONIDINE TARTRATE 0.2% OPHTHALMIC 5 ML BOTTLE OU SCH ×2 (09:51→21:32)
[2016-06-20] MEDS: SILVER SULFADIAZINE 1% TOP CREAM 50 GM JAR TP SCH ×2 (09:52→21:33)
--- NOTE | 2016-06-20 10:24 | PN ---
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, Physician Chief Complaint: Cardiology Follow-up Septic shock. HFrEF - Severely reduced EF Acute on Chronic renal failure - Respiratory failure History of Present Illness: No events. Off Levo. On DBT 5 mcg/kg/min. On mechanical ventilation. Sedated. Somnolent but arousable. Answering questions. Oliguric. Positive balance. Possible HD per Renal. Tele: AFL with ventricular rate 90-100. No other events. - Current Medication List Current Medications: Active Medications Brimonidine Tartrate (Alphagan 0.2% -) 1 drop OU BID [facility] Last Admin: 06/20/16 09:51 Dose: 1 drop Chlorhexidine Gluconate (Peridex -) 15 ml MM BID [facility] Last Admin: 06/20/16 09:50 Dose: 15 ml Collagenase (Santyl -) 1 applic TP BID [facility] Last Admin: 06/19/16 22:19 Dose: 1 applic Pantoprazole Sodium (Protonix 40mg Ivpb (Pre-Docked)) 100 mls @ 200 mls/hr IVPB BID@0600,1800 [facility] Last Admin: 06/20/16 06:51 Dose: 200 mls/hr Dobutamine HCl 250,000 mcg/ (Sodium Chloride) 250 mls @ 31.98 mls/hr IV TITR [facility]; 5 MCG/KG/MIN PRN Reason: Protocol Last Admin: 06/19/16 18:40 Dose: 31.98 mls/hr Propofol (Diprivan -) 100 mls @ 3.213 mls/hr IVPB TITR [facility]; 5 MCG/KG/MIN PRN Reason: Protocol Last Admin: 06/20/16 09:41 Dose: 6.4 mls/hr Furosemide 100 mg/ Sodium (Chloride) 100 mls @ 10 mls/hr IVPB ASDIR [facility] PRN Reason: 10 MG/HR Last Admin: 06/20/16 09:41 Dose: 10 mls/hr Fentanyl 500 mcg/ Dextrose 100 mls @ 8 mls/hr IJ TITR [facility] PRN Reason: 40 MCG/HR Last Admin: 06/19/16 18:52 Dose: Not Given Cefepime HCl 1 gm/ Dextrose 100 mls @ 200 mls/hr IVPB DAILY@1700 [facility] Last Admin: 06/19/16 18:39 Dose: 200 mls/hr Metronidazole (Flagyl 250mg Premixed Ivpb -) 50 mls @ 50 mls/hr IVPB Q8H-IV [facility] Insulin Aspart (Novolog Vial Sliding Scale -) 1 vial SQ ACHS [facility] PRN Reason: Protocol Last Admin: 06/20/16 06:50 Dose: Not Given Levothyroxine Sodium (Synthroid Injection -) 25 mcg IVPUSH AM [facility] Last Admin: 06/20/16 06:50 Dose: 25 mcg Sevelamer Carbonate (Renvela Powder Packet -) 0.8 gm PO TIDCM [facility] Last Admin: 06/20/16 08:35 Dose: 0.8 gm Silver Sulfadiazine (Silvadene -) 1 applic TP BID [facility] Last Admin: 06/20/16 09:52 Dose: 1 applic Sodium Bicarbonate (Sodium Bicarbonate -) 650 mg PO BID [facility] Last Admin: 06/20/16 09:47 Dose: 650 mg - Objective Vital Signs: Vital Signs Temperature 97.8 F 06/20/16 06:00 Pulse Rate 100 H 06/20/16 06:00 Respiratory Rate 24 06/20/16 07:25 Blood Pressure 111/98 06/20/16 06:00 O2 Sat by Pulse Oximetry (%) 98 06/19/16 20:48 Constitutional: Yes: No Distress, Calm (Sedated but arousable. Answering questions. Following commands.) Cardiovascular: Yes: Regular Rate and Rhythm, JVD Respiratory: Yes: Intubated, Mechanically Ventilated, Rhonchi Gastrointestinal: Yes: Normal Bowel Sounds, Soft, Abdomen, Obese Extremities: No: Cold (Warm extremities.) Edema: Yes Edema: LLE: 2+, RLE: 2+ Labs: CBC, BMP 06/20/16 06:15 06/20/16 06:15 INR, PTT INR 1.85 (0.82-1.09) H 06/11/16 05:15 Fibrinogen 405.0 mg/dL (238-498) 06/10/16 04:45 - ....Imaging Chest X-ray: Report Reviewed, Image Reviewed (CXR: Vascular congestion.) EKG: Image Reviewed Other: Other (Echocardiogram on 06/10/16 demonstrated severe systolic dysfunction with mildly dilated LV, mod TR, RVSP 30-40 mmHg, mild AR, mild MR, mild MO, and small pericardial effusion (< 1 cm).) Assessment/Plan 76 yo male with known CAD, prior CA (mild diffuse prox RCA disease, no intervention), paroxysmal atrial fib/flutter (on Eliquis at home), HFrEF ( severely reduced LV systolic function), HTN, DM, CKD, hyperlipidemia, who was recently hospitalized at [facility] from 05/23-06/02/16 for cellulitis/ abscess of left shoulder and lower extremities, and bacteremia. Now admitted with septic shock, acute on chronic renal failure, hyperkalemia, anemia and respiratory failure requiring pressor and inotropic support (NE and DBT), and mechanical ventilation. Currently on Dobutamine 5 mcg/kg/min. Possible HCAP? Multiple skin ulcers - skin infection. Signs of fluid overload in the setting of CASE. RECS: Continue Dobutamine for now. May titrate Dobutamine to 7.5 - 10 mcg/kg/min if needed to help augment BP. Will titrate it down to keep MAP 65-70 if stable today. HD being considered by renal. Continue Lasix drip for now. Keep lytes within the normal limits. Continue to hold anticoagulation for afib given anemia. Anemia work up by primary team. Try to minimize fentanyl since this is likely contributing to hypotension. Please follow blood cultures. Continue antibiotics per ID recommendations. Transfuse with PRBCs as needed. Would try to keep Hgb closer to 10 given his cardiac history. Further recs as per ICU team,nephrology, and ID service. Strict I&O. Daily weight. Please call with questions.
[2016-06-20] MEDS: METRONIDAZOLE PREMIXED IVPB 50 ML IVPB SCH ×2 (10:47→17:27)
[2016-06-20] MEDS: COLLAGENASE CLOSTRIDIUM HIST. 30 GRAMS TUBE TP SCH ×2 (11:00→21:33)
[2016-06-20] MEDS: FENTANYL INJECTION 500 MCG in DEXTROSE 5%-WATER - 90 ML IJ SCH ×2 (12:33→21:23)
--- NOTE | 2016-06-20 12:40 | PN ---
Teaching Attending Note Name of Resident: Patricio Andrade ATTENDING PHYSICIAN STATEMENT I saw and evaluated the patient. I reviewed the resident's note and discussed the case with the resident. I agree with the resident's findings and plan as documented. SUBJECTIVE: Pt seen and examined in the ICU. Remains intubated, sedated. On lasix and dobutamine gtts. Still with positive fluid balance. No fevers recorded. Intake & Output 06/17/16 06/18/16 06/19/16 06/20/16 23:59 23:59 23:59 23:59 Intake Total 663.6 2138 2828 1298.8 Output Total 1600 1550 900 225 Balance -936.4 588 1928 1073.8 Weight 235 lb 7.259 oz 230 lb 6.129 oz 226 lb 8 oz 234 lb Last Vital Signs Temp Pulse Resp BP Pulse Ox 97.8 F 92 H 21 111/98 99 06/20/16 06:00 06/20/16 11:21 06/20/16 12:07 06/20/16 06:00 06/20/16 11:21 Active Medications Brimonidine Tartrate (Alphagan 0.2% -) 1 drop OU BID [facility] Last Admin: 06/20/16 09:51 Dose: 1 drop Chlorhexidine Gluconate (Peridex -) 15 ml MM BID [facility] Last Admin: 06/20/16 09:50 Dose: 15 ml Collagenase (Santyl -) 1 applic TP BID [facility] Last Admin: 06/19/16 22:19 Dose: 1 applic Pantoprazole Sodium (Protonix 40mg Ivpb (Pre-Docked)) 100 mls @ 200 mls/hr IVPB BID@0600,1800 [facility] Last Admin: 06/20/16 06:51 Dose: 200 mls/hr Dobutamine HCl 250,000 mcg/ (Sodium Chloride) 250 mls @ 31.98 mls/hr IV TITR [facility]; 5 MCG/KG/MIN PRN Reason: Protocol Last Admin: 06/19/16 18:40 Dose: 31.98 mls/hr Propofol (Diprivan -) 100 mls @ 3.213 mls/hr IVPB TITR [facility]; 5 MCG/KG/MIN PRN Reason: Protocol Last Admin: 06/20/16 09:41 Dose: 6.4 mls/hr Furosemide 100 mg/ Sodium (Chloride) 100 mls @ 10 mls/hr IVPB ASDIR [facility] PRN Reason: 10 MG/HR Last Admin: 06/20/16 09:41 Dose: 10 mls/hr Fentanyl 500 mcg/ Dextrose 100 mls @ 8 mls/hr IJ TITR [facility] PRN Reason: 40 MCG/HR Last Admin: 06/20/16 12:33 Dose: 10 mls/hr Cefepime HCl 1 gm/ Dextrose 100 mls @ 200 mls/hr IVPB DAILY@1700 [facility] Last Admin: 06/19/16 18:39 Dose: 200 mls/hr Metronidazole (Flagyl 250mg Premixed Ivpb -) 50 mls @ 50 mls/hr IVPB Q8H-IV [facility] Last Admin: 06/20/16 10:47 Dose: 50 mls/hr Insulin Aspart (Novolog Vial Sliding Scale -) 1 vial SQ ACHS [facility] PRN Reason: Protocol Last Admin: 06/20/16 06:50 Dose: Not Given Levothyroxine Sodium (Synthroid Injection -) 25 mcg IVPUSH AM [facility] Last Admin: 06/20/16 06:50 Dose: 25 mcg Sevelamer Carbonate (Renvela Powder Packet -) 0.8 gm PO TIDCM [facility] Last Admin: 06/20/16 12:12 Dose: 0.8 gm Silver Sulfadiazine (Silvadene -) 1 applic TP BID [facility] Last Admin: 06/20/16 09:52 Dose: 1 applic Sodium Bicarbonate (Sodium Bicarbonate -) 650 mg PO BID [facility] Last Admin: 06/20/16 09:47 Dose: 650 mg Gen: intubated, sedated Heart: RRR Lung: scattered rhonchi Abd: soft, nontender Ext: + edema Laboratory Results - last 24 hr 06/17/16 06/19/16 06/19/16 13:10 09:00 11:49 WBC RBC Hgb Hct MCV MCHC RDW Plt Count MPV Neutrophils % 96.0 H Lymphocytes % 1.0 L D Monocytes % 3.0 L Differential Comment Manual diff done Platelet Estimate Slt decreased Platelet Comment Few giant plts Morphology Comment Slide scanned Puncture Site ABG pH ABG pCO2 at Pt Temp ABG pO2 at Pt Temp ABG HCO3 ABG O2 Sat (Measured) ABG O2 Content ABG Base Excess Frankie Test O2 Delivery Device Oxygen Flow Rate Vent Mode Vent Rate Mechanical Rate PEEP Pressure Support Vent Sodium Potassium Chloride Carbon Dioxide Anion Gap BUN Creatinine POC Glucometer 142.60551 Random Glucose Calcium Hep-Induced Plt Ab Rapid 0.183 06/19/16 06/19/16 06/20/16 17:38 22:07 06:15 WBC 24.4 H RBC 2.60 L Hgb 7.4 L D Hct 22.5 L D MCV 86.5 MCHC 33.0 RDW 17.7 H Plt Count 88 L D MPV 8.5 Neutrophils % 98.0 H Lymphocytes % 2.0 L D Monocytes % Differential Comment Manual diff done Platelet Estimate Decreased Platelet Comment Morphology Comment Puncture Site ABG pH ABG pCO2 at Pt Temp ABG pO2 at Pt Temp ABG HCO3 ABG O2 Sat (Measured) ABG O2 Content ABG Base Excess Frankie Test O2 Delivery Device Oxygen Flow Rate Vent Mode Vent Rate Mechanical Rate PEEP Pressure Support Vent Sodium Potassium Chloride Carbon Dioxide Anion Gap BUN Creatinine POC Glucometer 153.97243 168.39302 Random Glucose Calcium Hep-Induced Plt Ab Rapid 06/20/16 06/20/16 06:15 07:10 WBC RBC Hgb Hct MCV MCHC RDW Plt Count MPV Neutrophils % Lymphocytes % Monocytes % Differential Comment Platelet Estimate Platelet Comment Morphology Comment Puncture Site Right radial ABG pH 7.34 L ABG pCO2 at Pt Temp 30.9 L ABG pO2 at Pt Temp 70.4 D ABG HCO3 16.2 L ABG O2 Sat (Measured) 93.4 ABG O2 Content 9.6 L* ABG Base Excess -8.3 L Frankie Test Positive O2 Delivery Device Vent Oxygen Flow Rate 35% Vent Mode A/c Vent Rate 16 Mechanical Rate Yes PEEP 5.0 Pressure Support Vent 475 Sodium 132 L Potassium 4.6 Chloride 99 Carbon Dioxide 18 L Anion Gap 15 BUN 120 H* Creatinine 5.0 H POC Glucometer Random Glucose 71 L Calcium 7.3 L Hep-Induced Plt Ab Rapid ASSESSMENT AND PLAN: Acute Respiratory Failure Back/Shoulder Cellulitis/Abscess Septic vs Cardiogenic Shock Acute on Chronic Renal Failure Metabolic Acidosis Acute on Chronic LV Systolic Heart Failure Atrial Fibrillation COPD Hyponatremia Atelectasis improving - continue dobutamine/lasix gtts - keep net negative fluid balance - For HD today - s/p antibiotic course - local wound care - O2 to keep SpO2 >90% - aspiration precautions - inhaled bronchodilators - enteral feeds - DVT/GI prophylaxis - continue ICU monitoring critical care time spent reviewing chart, evaluating patient and formulating plan [address] Farrell
--- NOTE | 2016-06-20 13:23 | PN ---
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, Physician History of Present Illness: Pt seen and examined at bedside. He remains in the ICU intubated. Urine output has decreased. - Current Medication List Current Medications: Active Medications Brimonidine Tartrate (Alphagan 0.2% -) 1 drop OU BID [facility] Last Admin: 06/20/16 09:51 Dose: 1 drop Chlorhexidine Gluconate (Peridex -) 15 ml MM BID [facility] Last Admin: 06/20/16 09:50 Dose: 15 ml Collagenase (Santyl -) 1 applic TP BID [facility] Last Admin: 06/19/16 22:19 Dose: 1 applic Pantoprazole Sodium (Protonix 40mg Ivpb (Pre-Docked)) 100 mls @ 200 mls/hr IVPB BID@0600,1800 [facility] Last Admin: 06/20/16 06:51 Dose: 200 mls/hr Dobutamine HCl 250,000 mcg/ (Sodium Chloride) 250 mls @ 31.98 mls/hr IV TITR [facility]; 5 MCG/KG/MIN PRN Reason: Protocol Last Admin: 06/19/16 18:40 Dose: 31.98 mls/hr Propofol (Diprivan -) 100 mls @ 3.213 mls/hr IVPB TITR [facility]; 5 MCG/KG/MIN PRN Reason: Protocol Last Admin: 06/20/16 09:41 Dose: 6.4 mls/hr Furosemide 100 mg/ Sodium (Chloride) 100 mls @ 10 mls/hr IVPB ASDIR [facility] PRN Reason: 10 MG/HR Last Admin: 06/20/16 09:41 Dose: 10 mls/hr Fentanyl 500 mcg/ Dextrose 100 mls @ 8 mls/hr IJ TITR [facility] PRN Reason: 40 MCG/HR Last Admin: 06/20/16 12:33 Dose: 10 mls/hr Cefepime HCl 1 gm/ Dextrose 100 mls @ 200 mls/hr IVPB DAILY@1700 [facility] Last Admin: 06/19/16 18:39 Dose: 200 mls/hr Metronidazole (Flagyl 250mg Premixed Ivpb -) 50 mls @ 50 mls/hr IVPB Q8H-IV [facility] Last Admin: 06/20/16 10:47 Dose: 50 mls/hr Insulin Aspart (Novolog Vial Sliding Scale -) 1 vial SQ ACHS [facility] PRN Reason: Protocol Last Admin: 06/20/16 06:50 Dose: Not Given Levothyroxine Sodium (Synthroid Injection -) 25 mcg IVPUSH AM [facility] Last Admin: 06/20/16 06:50 Dose: 25 mcg Sevelamer Carbonate (Renvela Powder Packet -) 0.8 gm PO TIDCM [facility] Last Admin: 06/20/16 12:12 Dose: 0.8 gm Silver Sulfadiazine (Silvadene -) 1 applic TP BID [facility] Last Admin: 06/20/16 09:52 Dose: 1 applic Sodium Bicarbonate (Sodium Bicarbonate -) 650 mg PO BID [facility] Last Admin: 06/20/16 09:47 Dose: 650 mg - Objective Vital Signs: Vital Signs Temperature 97.8 F 06/20/16 06:00 Pulse Rate 92 H 06/20/16 11:21 Respiratory Rate 21 06/20/16 12:07 Blood Pressure 111/98 06/20/16 06:00 O2 Sat by Pulse Oximetry (%) 99 06/20/16 11:21 Constitutional: Yes: Calm Cardiovascular: Yes: S1, S2 Respiratory: Yes: Mechanically Ventilated Gastrointestinal: Yes: Soft, Abdomen, Obese Genitourinary: Yes: López Present Edema: Yes Edema: LLE: 2+, RLE: 2+ Integumentary: Yes: Other (dressing over ulcers) Neurological: Yes: Other (sedated) Labs: CBC, BMP 06/20/16 06:15 06/20/16 06:15 INR, PTT INR 1.85 (0.82-1.09) H 06/11/16 05:15 Fibrinogen 405.0 mg/dL (238-498) 06/10/16 04:45 - ....Imaging Chest X-ray: Report Reviewed (progressive changes) Problem List - Problems (1) Acute hyperkalemia Code(s): E87.5 - HYPERKALEMIA (2) Hyponatremia Code(s): E87.1 - HYPO-OSMOLALITY AND HYPONATREMIA (3) Hypotension Code(s): I95.9 - HYPOTENSION, UNSPECIFIED Qualifiers: Hypotension type: other hypotension type Qualified Code(s): I95.89 - Other hypotension (4) Acute on chronic renal failure Code(s): N17.9 - ACUTE KIDNEY FAILURE, UNSPECIFIED N18.9 - CHRONIC KIDNEY DISEASE, UNSPECIFIED (5) Anemia Code(s): D64.9 - ANEMIA, UNSPECIFIED Qualifiers: Other causes of anemia: chronic disease, kidney (6) COPD (chronic obstructive pulmonary disease) Code(s): J44.9 - CHRONIC OBSTRUCTIVE PULMONARY DISEASE, UNSPECIFIED (7) Congestive heart failure (CHF) Code(s): I50.9 - HEART FAILURE, UNSPECIFIED Qualifiers: Congestive heart failure type: systolic Congestive heart failure chronicity: chronic Qualified Code(s): I50.22 - Chronic systolic (congestive ) heart failure (8) DMII (diabetes mellitus, type 2) Code(s): E11.9 - TYPE 2 DIABETES MELLITUS WITHOUT COMPLICATIONS Qualifiers: Diabetes mellitus complication detail: with other kidney complication (9) CKD (chronic kidney disease) Code(s): N18.9 - CHRONIC KIDNEY DISEASE, UNSPECIFIED Assessment/Plan Current Medications Generic Name Dose Route Start Last Admin Trade Name Freq PRN Reason Stop Dose Admin Brimonidine Tartrate 1 drop 06/10/16 10:00 06/20/16 09:51 Alphagan 0.2% - OU 1 drop BID [facility] Administration Chlorhexidine Gluconate 15 ml 06/17/16 23:30 06/20/16 09:50 Peridex - MM 15 ml BID [facility] Administration Collagenase 1 applic 06/13/16 22:00 06/19/16 22:19 Santyl - TP 1 applic BID [facility] Administration Pantoprazole Sodium 100 mls @ 200 mls/hr 06/10/16 06:00 06/20/16 06:51 Protonix 40mg Ivpb (Pre-Docked) IVPB 200 mls/hr BID@0600,1800 [facility] Administration Dobutamine HCl 250,000 mcg/ 250 mls @ 31.98 mls/hr 06/15/16 11:00 06/19/16 18: 40 Sodium Chloride IV 31.98 mls/hr TITR [facility] Administration Protocol 5 MCG/KG/MIN Propofol 100 mls @ 3.213 mls/hr 06/16/16 18:30 06/20/16 09:41 Diprivan - IVPB 6.4 mls/hr TITR [facility] Administration Protocol 5 MCG/KG/MIN Furosemide 100 mg/ Sodium 100 mls @ 10 mls/hr 06/18/16 13:08 06/20/16 09:41 Chloride IVPB 10 mls/hr ASDIR [facility] Administration 10 MG/HR Fentanyl 500 mcg/ Dextrose 100 mls @ 8 mls/hr 06/18/16 14:31 06/20/16 12:33 IJ 10 mls/hr TITR [facility] Administration 40 MCG/HR Cefepime HCl 1 gm/ Dextrose 100 mls @ 200 mls/hr 06/19/16 17:00 06/19/16 18:39 IVPB 200 mls/hr DAILY@1700 [facility] Administration Metronidazole 50 mls @ 50 mls/hr 06/20/16 10:00 06/20/16 10:47 Flagyl 250mg Premixed Ivpb - IVPB 50 mls/hr Q8H-IV [facility] Administration Insulin Aspart 1 vial 06/10/16 16:30 06/20/16 06:50 Novolog Vial Sliding Scale - SQ Not Given ACHS [facility] Protocol Levothyroxine Sodium 25 mcg 06/10/16 07:00 06/20/16 06:50 Synthroid Injection - IVPUSH 25 mcg AM [facility] Administration Sevelamer Carbonate 0.8 gm 06/15/16 12:50 06/20/16 12:12 Renvela Powder Packet - PO 0.8 gm TIDCM [facility] Administration Silver Sulfadiazine 1 applic 06/17/16 22:00 06/20/16 09:52 Silvadene - TP 1 applic BID [facility] Administration Sodium Bicarbonate 650 mg 06/12/16 22:00 06/20/16 09:47 Sodium Bicarbonate - PO 650 mg BID [facility] Administration Impression 1. CASE on CKD 2. sepsis with shock 3. cellulitis/abscess of back 4. CHF acute 5. hypothyroidism 6. hyperlipidemia 7. COPD 8. htn 9. a-fib 10. hyponatremia - isoosmolar 11. acute respiratory failure requiring intubation Plan - will dialyze pt today - can stop PO bicarb - cont with lasix - will attempt to UF volume - discussed with ICU team - continue to monitor urine output - daily cxr Dr Martinez
[2016-06-20] MEDS: DOBUTAMINE HCL 250,000 MCG in SODIUM CHLORIDE 230 ML IV SCH ×3 (14:03→21:45)
[2016-06-20] MEDS: ALBUMIN HUMAN 25% 12.5 GM/50 ML VIAL IVPB SCH ×4 (14:30→16:00)
--- NOTE | 2016-06-20 15:36 | PROC ---
Central Line Insertion Indication: Other Risks and Benefits Explained: Yes Consent on Chart: Yes Central Line: Dialysis Cath, Tri Lumen Anesthesia: 1% Lidocaine Sterile Technique: Yes Ultrasound Guided Assistance: Yes Position: Right Internal Jugular Post Insertion: Yes: Chest X-Ray Ordered Sterile Dressing Applied: Yes
--- NOTE | 2016-06-20 15:37 | PN ---
Physical Exam: SUBJECTIVE: Patient seen and examined patient intubated and sedated on fentanyl and propofol on dobutamin 5 bp 102/52 spo2 100 on fio2 35, peep 5, tv 475, rr 16 platelets stable on lasix 10mg/hr OBJECTIVE: Vital Signs Period Temp Pulse Resp BP Sys/Hubbard Pulse Ox Last 24 Hr 97.7 F-98.6 F 92-101 14-25 105-135/60-98 98-100 GENERAL:intubated and sedated HEAD: Normal with no signs of trauma. EYES: Pupils equal, round and reactive to light, NECK no lymphadenopathy LUNGS:b/l air entry present, diffuse ronchi, no wheez HEART: s1s2 normal, ABDOMEN: Soft, nontender, not distended, normoactive bowel sounds, no guarding, no rebound, no masses. scrotal and penile swelling present UPPER EXTREMITIES: 2+ pulses, warm, well-perfused. No cyanosis. No clubbing. Cap refill <2 seconds. . LOWER EXTREMITIES: multiple ulcers resent on b/l lower limb, b/l pitting edema + + NEUROLOGICAL: unobtainable Laboratory Results - last 24 hr 06/19/16 06/19/16 06/19/16 09:00 11:49 17:38 WBC RBC Hgb Hct MCV MCHC RDW Plt Count MPV Neutrophils % 96.0 H Lymphocytes % 1.0 L D Monocytes % 3.0 L Differential Comment Manual diff done Platelet Estimate Slt decreased Platelet Comment Few giant plts Morphology Comment Slide scanned Puncture Site ABG pH ABG pCO2 at Pt Temp ABG pO2 at Pt Temp ABG HCO3 ABG O2 Sat (Measured) ABG O2 Content ABG Base Excess Frankie Test O2 Delivery Device Oxygen Flow Rate Vent Mode Vent Rate Mechanical Rate PEEP Pressure Support Vent Sodium Potassium Chloride Carbon Dioxide Anion Gap BUN Creatinine POC Glucometer 142.39064 153.82805 Random Glucose Calcium Random Vancomycin 06/19/16 06/20/16 06/20/16 22:07 06:15 06:15 WBC 24.4 H RBC 2.60 L Hgb 7.4 L D Hct 22.5 L D MCV 86.5 MCHC 33.0 RDW 17.7 H Plt Count 88 L D MPV 8.5 Neutrophils % 98.0 H Lymphocytes % 2.0 L D Monocytes % Differential Comment Manual diff done Platelet Estimate Decreased Platelet Comment Morphology Comment Puncture Site ABG pH ABG pCO2 at Pt Temp ABG pO2 at Pt Temp ABG HCO3 ABG O2 Sat (Measured) ABG O2 Content ABG Base Excess Frankie Test O2 Delivery Device Oxygen Flow Rate Vent Mode Vent Rate Mechanical Rate PEEP Pressure Support Vent Sodium 132 L Potassium 4.6 Chloride 99 Carbon Dioxide 18 L Anion Gap 15 BUN 120 H* Creatinine 5.0 H POC Glucometer 168.30464 Random Glucose 71 L Calcium 7.3 L Random Vancomycin 06/20/16 06/20/16 07:10 13:30 WBC RBC Hgb Hct MCV MCHC RDW Plt Count MPV Neutrophils % Lymphocytes % Monocytes % Differential Comment Platelet Estimate Platelet Comment Morphology Comment Puncture Site Right radial ABG pH 7.34 L ABG pCO2 at Pt Temp 30.9 L ABG pO2 at Pt Temp 70.4 D ABG HCO3 16.2 L ABG O2 Sat (Measured) 93.4 ABG O2 Content 9.6 L* ABG Base Excess -8.3 L Frankie Test Positive O2 Delivery Device Vent Oxygen Flow Rate 35% Vent Mode A/c Vent Rate 16 Mechanical Rate Yes PEEP 5.0 Pressure Support Vent 475 Sodium Potassium Chloride Carbon Dioxide Anion Gap BUN Creatinine POC Glucometer Random Glucose Calcium Random Vancomycin 13.323 Active Medications Generic Name Dose Route Start Last Admin Trade Name Freq PRN Reason Stop Dose Admin Brimonidine Tartrate 1 drop 06/10/16 10:00 06/20/16 09:51 Alphagan 0.2% - OU 1 drop BID [facility] Administration Chlorhexidine Gluconate 15 ml 06/17/16 23:30 06/20/16 09:50 Peridex - MM 15 ml BID [facility] Administration Collagenase 1 applic 06/13/16 22:00 06/20/16 11:00 Santyl - TP 1 applic BID [facility] Administration Pantoprazole Sodium 100 mls @ 200 mls/hr 06/10/16 06:00 06/20/16 06:51 Protonix 40mg Ivpb (Pre-Docked) IVPB 200 mls/hr BID@0600,1800 [facility] Administration Dobutamine HCl 250,000 mcg/ 250 mls @ 31.98 mls/hr 06/15/16 11:00 06/20/16 14: 05 Sodium Chloride IV Not Given TITR [facility] Protocol 5 MCG/KG/MIN Propofol 100 mls @ 3.213 mls/hr 06/16/16 18:30 06/20/16 09:41 Diprivan - IVPB 6.4 mls/hr TITR [facility] Administration Protocol 5 MCG/KG/MIN Furosemide 100 mg/ Sodium 100 mls @ 10 mls/hr 06/18/16 13:08 06/20/16 14:01 Chloride IVPB Not Given ASDIR [facility] 10 MG/HR Fentanyl 500 mcg/ Dextrose 100 mls @ 8 mls/hr 06/18/16 14:31 06/20/16 12:33 IJ 10 mls/hr TITR [facility] Administration 40 MCG/HR Cefepime HCl 1 gm/ Dextrose 100 mls @ 200 mls/hr 06/19/16 17:00 06/19/16 18:39 IVPB 200 mls/hr DAILY@1700 [facility] Administration Metronidazole 50 mls @ 50 mls/hr 06/20/16 10:00 06/20/16 10:47 Flagyl 250mg Premixed Ivpb - IVPB 50 mls/hr Q8H-IV [facility] Administration Insulin Aspart 1 vial 06/10/16 16:30 06/20/16 13:00 Novolog Vial Sliding Scale - SQ 2 units ACHS [facility] Administration Protocol Levothyroxine Sodium 25 mcg 06/10/16 07:00 06/20/16 06:50 Synthroid Injection - IVPUSH 25 mcg AM [facility] Administration Sevelamer Carbonate 0.8 gm 06/15/16 12:50 06/20/16 12:12 Renvela Powder Packet - PO 0.8 gm TIDCM [facility] Administration Silver Sulfadiazine 1 applic 06/17/16 22:00 06/20/16 09:52 Silvadene - TP 1 applic BID [facility] Administration Sodium Bicarbonate 650 mg 06/12/16 22:00 06/20/16 09:47 Sodium Bicarbonate - PO 650 mg BID [facility] Administration Microbiology 06/18/16 17:00 Sputum - Endotrachea Suction/Ventilator Gram Stain - Final 06/18/16 17:00 Sputum - Endotrachea Suction/Ventilator Sputum Culture - Preliminary Staphylococcus Latex Coag Pos 06/18/16 17:00 Urine - Urine López Urine Culture - Final NO GROWTH OBTAINED 06/18/16 17:00 Blood - Picc Line Blood Culture - Preliminary NO GROWTH OBTAINED AFTER 24 HOURS, INCUBATION TO CONTINUE FOR 4 DAYS. 06/18/16 15:15 Blood - Peripheral Venous Blood Culture - Preliminary NO GROWTH OBTAINED AFTER 24 HOURS, INCUBATION TO CONTINUE FOR 4 DAYS. 06/18/16 15:35 Blood - Peripheral Venous Blood Culture - Preliminary NO GROWTH OBTAINED AFTER 24 HOURS, INCUBATION TO CONTINUE FOR 4 DAYS. 06/10/16 04:30 Nasopharyngeal Swab Respiratory Virus Panel - Preliminary 06/09/16 23:00 Blood - Peripheral Venous Blood Culture - Final NO GROWTH AFTER 5 DAYS INCUBATION 06/09/16 23:00 Blood - Peripheral Venous Blood Culture - Final NO GROWTH AFTER 5 DAYS INCUBATION 06/10/16 04:30 Shoulder - Left Gram Stain - Final 06/10/16 04:30 Shoulder - Left Wound Culture - Final S Aureus Staphylococcus Coagulase Neg Yeast Like Organism 06/10/16 00:20 Urine - Urine López Urine Culture - Final NO GROWTH OBTAINED 06/10/16 05:30 Urine For Antigen Detection Legionella Antigen - Final 06/10/16 05:30 Urine For Antigen Detection Streptococcus pneumoniae Antigen (M - Final 06/10/16 04:30 Nasopharyngeal Swab Influenza Types A,B Antigen (ANH) - Final 06/10/16 04:30 Nasopharyngeal Swab - Final ASSESSMENT/PLAN: shock secondary to sepsis afebrile, wbc 15, patient could have septic shock with cardiogenic shock monitor vitals monitor intake/ output, try to keep negative balance, on HD follow abg in morning on dobutamin drip. blood culture no growth urine culture no growth Id on case, on cefepime repeat vascular surgery consult for ulcers on b/l lower limb hyponatremia improving Na 132 monitor sodium increase 0.5 to 1 meq/hr not more than 12 meq in 24 hour abdiaziz on ckd cr 4.9, bun 114 avoid nephrotoxic drugs avoid iv fluid nephrology consult appreciated on Lasix drip 10mg/hr monitor creatinine, bun, k dialysis cath inserted, patient on HD Acute respiratory failure with left side atelectasis intubated, sedated, on ventilator support left side atelectasis resolved keep spo2 over 90 duoneb nebulizer Hyperkalemia K stable to 4.6 monitor K acute on chronic LV heart failure avoid Iv fluid daily weight maintain negative balance. on iV lasix drip at 10mg/hr monitor IO LV systolic function severly reduced, LV global hypokinesia cardiology on case lactic acidosis improved hypothermia on hector hugger prn h/o cad, A flutter/ fibrillation , chf, global hypokinesia alaquis on hold due to anemia, cardiology on case last echo on 06/10 ef 28 and global hypokinesia anemia hb 7.4 stable h/o copd not active on duoneb DM on sliding scale follow bgm h/o hypothyroid on synthyroid fluid ; avoid IV fluid electrolyte ; repeat in am nutrition ; tube feed dvt pro heparin d/c due to thrombocytopenia. gi pro : on protonix patient is full code. dispo : admit in icu Visit type - Emergency Visit Emergency Visit: Yes ED Registration Date: 06/10/16 Care time: The patient presented to the Emergency Department on the above date and was hospitalized for further evaluation of their emergent condition. - New Patient This patient is new to me today: No - Critical Care Critical Care patient: Yes Total Critical Care Time (in minutes): 60 Critical Care Statement: The care of this patient involved high complexity decision making to prevent further life threatening deterioration of the patient 's condition and/or to evalute & treat vital organ system(s) failure or risk of failure.
[2016-06-20] MEDS: CEFEPIME 1 GM in DEXTROSE 5%-WATER - 100 ML IVPB SCH (17:24)
[2016-06-20] MEDS ORDERED: VANCOMYCIN 1 GRAM (PRE-DOCKED) 1,000 MG/250 ML BAG IVPB ONE (18:00)
--- NOTE | 2016-06-20 18:07 | PN ---
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, Physician Chief Complaint: EVENTS AND CHART REVIEWED INTUBATED ON DOBUTAMINE DRIP - Current Medication List Current Medications: Active Medications Brimonidine Tartrate (Alphagan 0.2% -) 1 drop OU BID [facility] Last Admin: 06/20/16 09:51 Dose: 1 drop Chlorhexidine Gluconate (Peridex -) 15 ml MM BID [facility] Last Admin: 06/20/16 09:50 Dose: 15 ml Collagenase (Santyl -) 1 applic TP BID [facility] Last Admin: 06/20/16 11:00 Dose: 1 applic Heparin Sodium (Porcine) (Heparin -) 5,000 unit SQ BID [facility] Pantoprazole Sodium (Protonix 40mg Ivpb (Pre-Docked)) 100 mls @ 200 mls/hr IVPB BID@0600,1800 [facility] Last Admin: 06/20/16 17:27 Dose: 200 mls/hr Dobutamine HCl 250,000 mcg/ (Sodium Chloride) 250 mls @ 31.98 mls/hr IV TITR [facility]; 5 MCG/KG/MIN PRN Reason: Protocol Last Admin: 06/20/16 14:05 Dose: Not Given Propofol (Diprivan -) 100 mls @ 3.213 mls/hr IVPB TITR [facility]; 5 MCG/KG/MIN PRN Reason: Protocol Last Admin: 06/20/16 09:41 Dose: 6.4 mls/hr Furosemide 100 mg/ Sodium (Chloride) 100 mls @ 10 mls/hr IVPB ASDIR [facility] PRN Reason: 10 MG/HR Last Admin: 06/20/16 14:01 Dose: Not Given Fentanyl 500 mcg/ Dextrose 100 mls @ 8 mls/hr IJ TITR [facility] PRN Reason: 40 MCG/HR Last Admin: 06/20/16 12:33 Dose: 10 mls/hr Cefepime HCl 1 gm/ Dextrose 100 mls @ 200 mls/hr IVPB DAILY@1700 [facility] Last Admin: 06/20/16 17:24 Dose: 200 mls/hr Metronidazole (Flagyl 250mg Premixed Ivpb -) 50 mls @ 50 mls/hr IVPB Q8H-IV [facility] Last Admin: 06/20/16 17:27 Dose: 50 mls/hr Vancomycin HCl (Vancomycin (Pre-Docked)) 250 mls @ 250 mls/hr IVPB DAILY@1800 [facility] PRN Reason: Protocol Stop: 06/22/16 17:59 Insulin Aspart (Novolog Vial Sliding Scale -) 1 vial SQ ACHS [facility] PRN Reason: Protocol Last Admin: 06/20/16 13:00 Dose: 2 units Levothyroxine Sodium (Synthroid Injection -) 25 mcg IVPUSH AM [facility] Last Admin: 06/20/16 06:50 Dose: 25 mcg Sevelamer Carbonate (Renvela Powder Packet -) 0.8 gm PO TIDCM [facility] Last Admin: 06/20/16 17:24 Dose: 0.8 gm Silver Sulfadiazine (Silvadene -) 1 applic TP BID [facility] Last Admin: 06/20/16 09:52 Dose: 1 applic Sodium Bicarbonate (Sodium Bicarbonate -) 650 mg PO BID [facility] Last Admin: 06/20/16 09:47 Dose: 650 mg - Objective Vital Signs: Vital Signs Temperature 97.6 F 06/20/16 16:00 Pulse Rate 106 H 06/20/16 17:25 Respiratory Rate 20 06/20/16 17:25 Blood Pressure 113/64 06/20/16 17:25 O2 Sat by Pulse Oximetry (%) 99 06/20/16 11:21 Constitutional: Yes: Moderate Distress Eyes: Yes: Other HENT: Yes: WNL Neck: Yes: Other Cardiovascular: Yes: Pulse Irregular Respiratory: Yes: Mechanically Ventilated, Poor Air Entry Gastrointestinal: Yes: Other Musculoskeletal: Yes: Muscle Weakness Extremities: Yes: Deformity, Erythema Edema: Yes Edema: LLE: 2+, RLE: 2+ Peripheral Pulses WNL: Yes Integumentary: Yes: Pressure Ulcer Wound/Incision: Yes: Draining, Unapproximated Neurological: Yes: Other ...Motor Strength: LLE, RLE Labs: CBC, BMP 06/20/16 06:15 06/20/16 06:15 INR, PTT INR 1.85 (0.82-1.09) H 06/11/16 05:15 Fibrinogen 405.0 mg/dL (238-498) 06/10/16 04:45 Problem List - Problems (1) CKD (chronic kidney disease) Code(s): N18.9 - CHRONIC KIDNEY DISEASE, UNSPECIFIED (2) Hyponatremia Code(s): E87.1 - HYPO-OSMOLALITY AND HYPONATREMIA (3) Hypotension Code(s): I95.9 - HYPOTENSION, UNSPECIFIED Qualifiers: Hypotension type: other hypotension type Qualified Code(s): I95.89 - Other hypotension (4) Lung consolidation Code(s): J18.1 - LOBAR PNEUMONIA, UNSPECIFIED ORGANISM (5) Anemia Code(s): D64.9 - ANEMIA, UNSPECIFIED Qualifiers: Other causes of anemia: chronic disease, kidney (6) Atrial flutter Code(s): I48.92 - UNSPECIFIED ATRIAL FLUTTER (7) Bacteremia Code(s): R78.81 - BACTEREMIA (8) COPD (chronic obstructive pulmonary disease) Code(s): J44.9 - CHRONIC OBSTRUCTIVE PULMONARY DISEASE, UNSPECIFIED (9) DMII (diabetes mellitus, type 2) Code(s): E11.9 - TYPE 2 DIABETES MELLITUS WITHOUT COMPLICATIONS Qualifiers: Diabetes mellitus complication detail: with other kidney complication (10) Dyspnea Code(s): R06.00 - DYSPNEA, UNSPECIFIED Qualifiers: Dyspnea type: shortness of breath Qualified Code(s): R06.02 - Shortness of breath (11) Pressure ulcer of lower extremity, stage 1 Code(s): L89.891 - PRESSURE ULCER OF OTHER SITE, STAGE 1 (12) Sepsis Code(s): A41.9 - SEPSIS, UNSPECIFIED ORGANISM Qualifiers: Sepsis type: sepsis due to unspecified organism Qualified Code(s): A41.9 - Sepsis, unspecified organism (13) Weakness of both lower limbs Code(s): M62.81 - MUSCLE WEAKNESS (GENERALIZED) (14) Wound of left shoulder Code(s): S41.002A - UNSPECIFIED OPEN WOUND OF LEFT SHOULDER, INITIAL ENCOUNTER Qualifiers: Encounter type: subsequent encounter Qualified Code(s): S41.002D - Unspecified open wound of left shoulder, subsequent encounter (15) Acute respiratory distress Code(s): R06.00 - DYSPNEA, UNSPECIFIED Assessment/Plan INTUBATED ON VENT SUPPORT SEPSIS ON ABX ANEMIA WORSE, DISCUSS WITH NEPHROLOGY IF PRBC TRANSFUSION CAN BE TOLERATED BP SUPPORT, LASIX DRIP,DOBUTAMINE FOR INOTROPIC EFFECT RENAL FAILURE NEPHROLOGY FOLLOW UP WILL NEED HD TODAY POOR OVERALL PROGNOSIS DISCUSSED WITH HIS BROTHER MARCIO AND NIECE OVER THE PHONE FOR 20 MINS VERY CRITICAL AT THIS TIME SURGERY EVAL FOR LEG EDEMA AND LEFT BACK WOUND DVT PROPHYLAXIS
[2016-06-20] MEDS: HEPARIN NA (PORCINE) 5,000 UNITS/ML 1ML VIAL SQ SCH (21:35)
[2016-06-21] MEDS: PROPOFOL 100 ML IVPB SCH
[2016-06-21] MEDS: METRONIDAZOLE PREMIXED IVPB 50 ML IVPB SCH ×3 (02:27→17:15)
[2016-06-21] MEDS ORDERED: DOBUTAMINE 250 MG/D5W - 250 ML ONE ×3 (05:20→22:51)
[2016-06-21] MEDS: PANTOPRAZOLE SODIUM 100 ML IVPB SCH (05:22)
[2016-06-21] MEDS ORDERED: PT OWN MED DRAWER 7, Y5N ONE ×2 (06:29→11:02)
[2016-06-21] MEDS: LEVOTHYROXINE SODIUM 100 MCG VIAL IVPUSH SCH (06:32)
[2016-06-21 06:37] LABS: MCH 28.3 pg (25.7-33.7); MCHC 32.9 g/dl (32.0-35.9); MEAN CELL VOLUME 86.2 fl (80-96); MEAN PLT VOLUME 8.6 fl (7.5-11.1); PLATELET COUNT 84 K/MM3 (134-434); RDW 17.5 % (11.9-15.9); WHITE BLOOD COUNT 17.9 K/mm3 (4.0-10.0)
[2016-06-21] MEDS ORDERED: FUROSEMIDE 100 MG/10 ML INJECTABLE VIAL ONE ×2 (06:43→17:18)
[2016-06-21] MEDS: INSULIN SLIDING SCALE (NOVOLOG) 1 VIAL SQ SCH ×4 (06:51→21:18)
[2016-06-21] MEDS: FUROSEMIDE INJECTION 100 MG in SODIUM CHLORIDE 90 ML IVPB SCH ×2 (06:52→18:03)
[2016-06-21 06:58] LABS: ALBUMIN 1.3 g/dl (3.4-5.0); CALCIUM 7.5 mg/dL (8.5-10.1)
[2016-06-21 07:03] LABS: BILIRUBIN,TOTAL 1.3 mg/dL (0.2-1.0); CREATININE 3.7 mg/dL (0.7-1.3); TOT PROT 4.4 g/dl (6.4-8.2)
--- NOTE | 2016-06-21 07:20 | PN ---
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, Physician Chief Complaint: ID Vancomycin Cefepime metronidazole Remains intubated Dialysis started yesterday - Current Medication List Current Medications: Active Medications Brimonidine Tartrate (Alphagan 0.2% -) 1 drop OU BID [facility] Last Admin: 06/20/16 21:32 Dose: 1 drop Chlorhexidine Gluconate (Peridex -) 15 ml MM BID [facility] Last Admin: 06/20/16 21:26 Dose: 15 ml Collagenase (Santyl -) 1 applic TP BID [facility] Last Admin: 06/20/16 21:33 Dose: 1 applic Heparin Sodium (Porcine) (Heparin -) 5,000 unit SQ BID [facility] Last Admin: 06/20/16 21:35 Dose: 5,000 unit Pantoprazole Sodium (Protonix 40mg Ivpb (Pre-Docked)) 100 mls @ 200 mls/hr IVPB BID@0600,1800 [facility] Last Admin: 06/21/16 05:22 Dose: 200 mls/hr Dobutamine HCl 250,000 mcg/ (Sodium Chloride) 250 mls @ 31.98 mls/hr IV TITR [facility]; 5 MCG/KG/MIN PRN Reason: Protocol Last Admin: 06/20/16 21:45 Dose: 31.98 mls/hr Propofol (Diprivan -) 100 mls @ 3.213 mls/hr IVPB TITR [facility]; 5 MCG/KG/MIN PRN Reason: Protocol Last Admin: 06/20/16 09:41 Dose: 6.4 mls/hr Furosemide 100 mg/ Sodium (Chloride) 100 mls @ 10 mls/hr IVPB ASDIR [facility] PRN Reason: 10 MG/HR Last Admin: 06/21/16 06:52 Dose: 10 mls/hr Fentanyl 500 mcg/ Dextrose 100 mls @ 8 mls/hr IJ TITR [facility] PRN Reason: 40 MCG/HR Last Admin: 06/20/16 21:23 Dose: 10 mls/hr Cefepime HCl 1 gm/ Dextrose 100 mls @ 200 mls/hr IVPB DAILY@1700 [facility] Last Admin: 06/20/16 17:24 Dose: 200 mls/hr Metronidazole (Flagyl 250mg Premixed Ivpb -) 50 mls @ 50 mls/hr IVPB Q8H-IV [facility] Last Admin: 06/21/16 02:27 Dose: 50 mls/hr Vancomycin HCl (Vancomycin (Pre-Docked)) 250 mls @ 250 mls/hr IVPB DAILY@1800 [facility] PRN Reason: Protocol Stop: 06/22/16 17:59 Insulin Aspart (Novolog Vial Sliding Scale -) 1 vial SQ ACHS [facility] PRN Reason: Protocol Last Admin: 06/21/16 06:51 Dose: Not Given Levothyroxine Sodium (Synthroid Injection -) 25 mcg IVPUSH AM [facility] Last Admin: 06/21/16 06:32 Dose: 25 mcg Sevelamer Carbonate (Renvela Powder Packet -) 0.8 gm PO TIDCM [facility] Last Admin: 06/20/16 17:24 Dose: 0.8 gm Silver Sulfadiazine (Silvadene -) 1 applic TP BID [facility] Last Admin: 06/20/16 21:33 Dose: 1 applic Sodium Bicarbonate (Sodium Bicarbonate -) 650 mg PO BID [facility] Last Admin: 06/20/16 21:25 Dose: 650 mg - Objective Vital Signs: Vital Signs Temperature 98.6 F 06/21/16 06:00 Pulse Rate 103 H 06/21/16 06:00 Respiratory Rate 18 06/21/16 06:00 Blood Pressure 108/59 06/21/16 06:00 O2 Sat by Pulse Oximetry (%) 100 06/20/16 23:49 Neck: Yes: Other (Catheter right neck) Cardiovascular: Yes: S1, S2 Respiratory: Yes: Regular, CTA Bilaterally Gastrointestinal: Yes: WNL, Normal Bowel Sounds, Soft. No: Tenderness Genitourinary: Yes: Scrotal Edema Integumentary: Yes: Other (Extensive wounds LE, decubiti excoriations) Labs: CBC, BMP 06/21/16 05:00 06/21/16 05:00 INR, PTT INR 1.85 (0.82-1.09) H 06/11/16 05:15 Fibrinogen 405.0 mg/dL (238-498) 06/10/16 04:45 Assessment/Plan Microbiology 06/18/16 17:00 Sputum - Endotrachea Suction/Ventilator Gram Stain - Final 06/18/16 17:00 Sputum - Endotrachea Suction/Ventilator Sputum Culture - Preliminary Staphylococcus Latex Coag Pos Laboratory Tests 06/20/16 06/21/16 06/21/16 07:10 05:00 05:00 WBC 17.9 H Plt Count 84 L ABG pH 7.34 L ABG pCO2 at Pt Temp 30.9 L ABG pO2 at Pt Temp 70.4 D Oxygen Flow Rate 35% Random Vancomycin 19.215 Assessment Sepsis syndrome assume related to extensive wounds Colonized MRSA Day 2 antibiotics Now started on dialysis Extensive wounds Respiratory failure Plan Continue current antibiotic Substitute Ceftriaxone for Cefeime to descale therapy as no GNB seen in culture Kris MOSQUERA
[2016-06-21 08:14] LABS: ANISOCYTOSIS 2+; HYPOCHROMIA 2+; METAMYELOCYTE 1 % (0-2); PLATELET COMMENT2 NO CLOTTING DETECTED; PLATELET COMMENT3 FEW GIANT PLTS; PLATELET ESTIMATE DECREASED (NORMAL); POIKILOCYTOSIS 2+; POLYCHROMASIA 1+; TOXIC GRANULATION 1+
--- NOTE | 2016-06-21 08:47 | PN ---
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 (short form) - Note 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: PULM / CRITICAL CARE MEDICINE PROGRESS NOTE: Pt seen and examined int he ICU 24 HOUR EVENTS: -HD done yesterday ?UF amount -Awake and doing well on SBT, FiO2 is 35% - will do T-piece trial and extubate if passes -Minimal UOP with Lasix/Dobutamine Current Medications Brimonidine Tartrate (Alphagan 0.2% -) 1 drop OU BID [facility] Last Admin: 06/20/16 21:32 Dose: 1 drop Chlorhexidine Gluconate (Peridex -) 15 ml MM BID [facility] Last Admin: 06/20/16 21:26 Dose: 15 ml Collagenase (Santyl -) 1 applic TP BID [facility] Last Admin: 06/20/16 21:33 Dose: 1 applic Heparin Sodium (Porcine) (Heparin -) 5,000 unit SQ BID [facility] Last Admin: 06/20/16 21:35 Dose: 5,000 unit Pantoprazole Sodium (Protonix 40mg Ivpb (Pre-Docked)) 100 mls @ 200 mls/hr IVPB BID@0600,1800 [facility] Last Admin: 06/21/16 05:22 Dose: 200 mls/hr Dobutamine HCl 250,000 mcg/ (Sodium Chloride) 250 mls @ 31.98 mls/hr IV TITR [facility]; 5 MCG/KG/MIN PRN Reason: Protocol Last Admin: 06/20/16 21:45 Dose: 31.98 mls/hr Propofol (Diprivan -) 100 mls @ 3.213 mls/hr IVPB TITR [facility]; 5 MCG/KG/MIN PRN Reason: Protocol Last Admin: 06/21/16 00:00 Dose: 7.711 mls/hr Furosemide 100 mg/ Sodium (Chloride) 100 mls @ 10 mls/hr IVPB ASDIR [facility] PRN Reason: 10 MG/HR Last Admin: 06/21/16 06:52 Dose: 10 mls/hr Fentanyl 500 mcg/ Dextrose 100 mls @ 8 mls/hr IJ TITR [facility] PRN Reason: 40 MCG/HR Last Admin: 06/20/16 21:23 Dose: 10 mls/hr Metronidazole (Flagyl 250mg Premixed Ivpb -) 50 mls @ 50 mls/hr IVPB Q8H-IV [facility] Last Admin: 06/21/16 02:27 Dose: 50 mls/hr Vancomycin HCl (Vancomycin (Pre-Docked)) 250 mls @ 250 mls/hr IVPB DAILY@1800 [facility] PRN Reason: Protocol Stop: 06/22/16 17:59 Ceftriaxone Sodium 1 gm/ (Dextrose) 50 mls @ 100 mls/hr IVPB DAILY [facility] Insulin Aspart (Novolog Vial Sliding Scale -) 1 vial SQ ACHS [facility] PRN Reason: Protocol Last Admin: 06/21/16 06:51 Dose: Not Given Levothyroxine Sodium (Synthroid Injection -) 25 mcg IVPUSH AM [facility] Last Admin: 06/21/16 06:32 Dose: 25 mcg Sevelamer Carbonate (Renvela Powder Packet -) 0.8 gm PO TIDCM [facility] Last Admin: 06/20/16 17:24 Dose: 0.8 gm Silver Sulfadiazine (Silvadene -) 1 applic TP BID [facility] Last Admin: 06/20/16 21:33 Dose: 1 applic Sodium Bicarbonate (Sodium Bicarbonate -) 650 mg PO BID [facility] Last Admin: 06/20/16 21:25 Dose: 650 mg Vital Signs Temp 98.6 F 06/21/16 06:00 Pulse 103 H 06/21/16 06:00 Resp 18 06/21/16 07:50 BP 108/59 06/21/16 06:00 Pulse Ox 100 06/20/16 23:49 Intake & Output 06/20/16 06/21/16 06/21/16 18:59 06:59 18:59 Intake Total 540 2802.4 Output Total 200 175 Balance 340 2627.4 Weight 103.8 kg Intake: IV 1417.4 Dobutrex - 250,000 Mcg In 768 Normal Saline - 230 ml @ 5 MCG/KG/MIN 31.98 mls/ hr IV TITR [facility] Rx#: [id number] Diprivan - 100 ml @ 5 MCG 169.4 /KG/MIN 3.213 mls/hr IVPB TITR [facility] Rx#:[id number] Lasix Injection - 100 mg 240 In Normal Saline - 90 ml @ 10 MG/HR 10 mls/hr IVPB ASDIR [facility] Rx#: [id number] fentanyl drip 240 IVPB 600 Tube Feeding 480 525 Tube Irrigant 60 260 Output: Urine 200 175 López 200 175 Other: Voiding Method Indwelling Catheter Indwelling Catheter Bowel Movement No Weight Measurement Method Built in Bedscale Gen: awake, follows commands Heart: RRR Lung: crackles Abd: soft, nontender Ext: 3+ LE edema CBC, BMP 06/21/16 05:00 06/21/16 05:00 ASSESSMENT AND PLAN: Acute Respiratory Failure Back/Shoulder Cellulitis/Abscess Septic vs Cardiogenic Shock Acute on Chronic Renal Failure Metabolic Acidosis Acute on Chronic LV Systolic Heart Failure Atrial Fibrillation COPD Hyponatremia Atelectasis improving - check t-piece trial - extubate if passes - continue dobutamine/lasix gtts - HD per renal - needs volume off - would give PRBC with HD - local wound care - O2 to keep SpO2 >90% - aspiration precautions - inhaled bronchodilators - enteral feeds - DVT/GI prophylaxis - continue ICU monitoring 35 min Efrem Campbell Pulm/Critical Care [employer]
[2016-06-21] MEDS: SEVELAMER CARBONATE 0.8 GM POWDER PACKET PO SCH ×3 (09:02→17:10)
--- NOTE | 2016-06-21 09:52 | PN ---
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 (short form) - Note 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: RENAL Pt is now on a Tpiece says he recognizes me has not been making much urine om 10 mg/hr of lasix Last Vital Signs Temp Pulse Resp BP Pulse Ox 98.6 F 103 H 20 105/57 100 06/21/16 06:00 06/21/16 09:38 06/21/16 08:00 06/21/16 08:00 06/21/16 09:38 lungs rhonchi, coughing cvs s1s2 rr abd soft ext +edema neuro a+o CBC, BMP 06/21/16 05:00 06/21/16 05:00 Current Medications Generic Name Dose Route Start Last Admin Trade Name Freq PRN Reason Stop Dose Admin Brimonidine Tartrate 1 drop 06/10/16 10:00 06/20/16 21:32 Alphagan 0.2% - OU 1 drop BID [facility] Administration Chlorhexidine Gluconate 15 ml 06/17/16 23:30 06/20/16 21:26 Peridex - MM 15 ml BID [facility] Administration Collagenase 1 applic 06/13/16 22:00 06/20/16 21:33 Santyl - TP 1 applic BID [facility] Administration Heparin Sodium (Porcine) 5,000 unit 06/20/16 22:00 06/20/16 21:35 Heparin - SQ 5,000 unit BID [facility] Administration Dobutamine HCl 250,000 mcg/ 250 mls @ 31.98 mls/hr 06/15/16 11:00 06/20/16 21: 45 Sodium Chloride IV 31.98 mls/hr TITR [facility] Administration Protocol 5 MCG/KG/MIN Furosemide 100 mg/ Sodium 100 mls @ 10 mls/hr 06/18/16 13:08 06/21/16 06:52 Chloride IVPB 10 mls/hr ASDIR [facility] Administration 10 MG/HR Metronidazole 50 mls @ 50 mls/hr 06/20/16 10:00 06/21/16 02:27 Flagyl 250mg Premixed Ivpb - IVPB 50 mls/hr Q8H-IV [facility] Administration Ceftriaxone Sodium 50 mls @ 100 mls/hr 06/21/16 10:00 Rocephin 1gm Ivpb (Pre-Docked) IVPB DAILY [facility] Insulin Aspart 1 vial 06/10/16 16:30 06/21/16 06:51 Novolog Vial Sliding Scale - SQ Not Given ACHS [facility] Protocol Levothyroxine Sodium 25 mcg 06/10/16 07:00 06/21/16 06:32 Synthroid Injection - IVPUSH 25 mcg AM [facility] Administration Pantoprazole Sodium 40 mg 06/22/16 10:00 Protonix - PO DAILY [facility] Sevelamer Carbonate 0.8 gm 06/15/16 12:50 06/21/16 09:02 Renvela Powder Packet - PO 0.8 gm TIDCM [facility] Administration Silver Sulfadiazine 1 applic 06/17/16 22:00 06/20/16 21:33 Silvadene - TP 1 applic BID [facility] Administration Sodium Bicarbonate 650 mg 06/12/16 22:00 06/20/16 21:25 Sodium Bicarbonate - PO 650 mg BID [facility] Administration Impression 1. CASE on CKD 2. sepsis with shock 3. cellulitis/abscess of back 4. CHF acute 5. hypothyroidism 6. hyperlipidemia 7. COPD 8. htn 9. a-fib 10. hyponatremia - isoosmolar 11. acute respiratory failure requiring intubation Plan - will dialyze pt today - can stop PO bicarb - cont with lasix - probable extubation today MV
[2016-06-21] MEDS: BRIMONIDINE TARTRATE 0.2% OPHTHALMIC 5 ML BOTTLE OU SCH ×2 (10:00→21:10)
[2016-06-21] MEDS: CHLORHEXIDINE GLUCONATE 0.12% 15ML CUP MM SCH ×2 (11:31→21:09)
[2016-06-21] MEDS: CEFTRIAXONE 50 ML IVPB SCH (11:31)
[2016-06-21] MEDS: HEPARIN NA (PORCINE) 5,000 UNITS/ML 1ML VIAL SQ SCH ×2 (11:31→21:09)
[2016-06-21] MEDS: SODIUM BICARBONATE 650 MG TABLET PO SCH ×2 (11:31→21:19)
[2016-06-21] MEDS: SILVER SULFADIAZINE 1% TOP CREAM 50 GM JAR TP SCH ×2 (11:32→21:10)
[2016-06-21] MEDS: COLLAGENASE CLOSTRIDIUM HIST. 30 GRAMS TUBE TP SCH ×2 (11:33→21:09)
[2016-06-21] MEDS: morphine CARPU-JECT 2 MG/1 ML DISP.SYRIN IVPUSH PRN ×2 (12:40→21:11)
--- NOTE | 2016-06-21 14:39 | PN ---
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, Physician Chief Complaint: HAD DISCUSSION WITH FAMILY PATIENT AWAKE FOLLOWS COMMANDS - Current Medication List Current Medications: Active Medications Brimonidine Tartrate (Alphagan 0.2% -) 1 drop OU BID [facility] Last Admin: 06/21/16 10:00 Dose: 1 drop Chlorhexidine Gluconate (Peridex -) 15 ml MM BID [facility] Last Admin: 06/21/16 11:31 Dose: Not Given Collagenase (Santyl -) 1 applic TP BID [facility] Last Admin: 06/21/16 11:33 Dose: 1 applic Heparin Sodium (Porcine) (Heparin -) 5,000 unit SQ BID [facility] Last Admin: 06/21/16 11:31 Dose: 5,000 unit Dobutamine HCl 250,000 mcg/ (Sodium Chloride) 250 mls @ 31.98 mls/hr IV TITR [facility]; 5 MCG/KG/MIN PRN Reason: Protocol Last Admin: 06/20/16 21:45 Dose: 31.98 mls/hr Furosemide 100 mg/ Sodium (Chloride) 100 mls @ 10 mls/hr IVPB ASDIR [facility] PRN Reason: 10 MG/HR Last Admin: 06/21/16 06:52 Dose: 10 mls/hr Metronidazole (Flagyl 250mg Premixed Ivpb -) 50 mls @ 50 mls/hr IVPB Q8H-IV [facility] Last Admin: 06/21/16 11:00 Dose: 50 mls/hr Ceftriaxone Sodium (Rocephin 1gm Ivpb (Pre-Docked)) 50 mls @ 100 mls/hr IVPB DAILY [facility] Last Admin: 06/21/16 11:31 Dose: 100 mls/hr Insulin Aspart (Novolog Vial Sliding Scale -) 1 vial SQ ACHS [facility] PRN Reason: Protocol Last Admin: 06/21/16 14:12 Dose: Not Given Levothyroxine Sodium (Synthroid Injection -) 25 mcg IVPUSH AM [facility] Last Admin: 06/21/16 06:32 Dose: 25 mcg Morphine Sulfate (Morphine Injection -) 2 mg IVPUSH Q4H PRN PRN Reason: PAIN LEVEL 1-5 Last Admin: 06/21/16 12:40 Dose: 2 mg Morphine Sulfate (Morphine Injection -) 4 mg IVPUSH Q4H PRN PRN Reason: PAIN LEVEL 6-10 Pantoprazole Sodium (Protonix -) 40 mg PO DAILY [facility] Sevelamer Carbonate (Renvela Powder Packet -) 0.8 gm PO TIDCM [facility] Last Admin: 06/21/16 12:08 Dose: Not Given Silver Sulfadiazine (Silvadene -) 1 applic TP BID [facility] Last Admin: 06/21/16 11:32 Dose: 1 applic Sodium Bicarbonate (Sodium Bicarbonate -) 650 mg PO BID [facility] Last Admin: 06/21/16 11:31 Dose: Not Given - Objective Vital Signs: Vital Signs Temperature 98.6 F 06/21/16 14:00 Pulse Rate 102 H 06/21/16 14:19 Respiratory Rate 22 06/21/16 14:00 Blood Pressure 123/65 06/21/16 14:00 O2 Sat by Pulse Oximetry (%) 97 06/21/16 14:19 Neck: Yes: WNL Cardiovascular: Yes: WNL Respiratory: Yes: WNL Gastrointestinal: Yes: WNL Edema: No Labs: CBC, BMP 06/21/16 05:00 06/21/16 05:00 INR, PTT INR 1.85 (0.82-1.09) H 06/11/16 05:15 Fibrinogen 405.0 mg/dL (238-498) 06/10/16 04:45 Problem List - Problems (1) Anemia Code(s): D64.9 - ANEMIA, UNSPECIFIED Qualifiers: Other causes of anemia: chronic disease, kidney Assessment/Plan (1) CKD (chronic kidney disease) Code(s): N18.9 - CHRONIC KIDNEY DISEASE, UNSPECIFIED (2) Hyponatremia Code(s): E87.1 - HYPO-OSMOLALITY AND HYPONATREMIA (3) Hypotension Code(s): I95.9 - HYPOTENSION, UNSPECIFIED Qualifiers: Hypotension type: other hypotension type Qualified Code(s): I95.89 - Other hypotension (4) Lung consolidation Code(s): J18.1 - LOBAR PNEUMONIA, UNSPECIFIED ORGANISM (5) Anemia Code(s): D64.9 - ANEMIA, UNSPECIFIED Qualifiers: Other causes of anemia: chronic disease, kidney (6) Atrial flutter Code(s): I48.92 - UNSPECIFIED ATRIAL FLUTTER (7) Bacteremia Code(s): R78.81 - BACTEREMIA (8) COPD (chronic obstructive pulmonary disease) Code(s): J44.9 - CHRONIC OBSTRUCTIVE PULMONARY DISEASE, UNSPECIFIED (9) DMII (diabetes mellitus, type 2) Code(s): E11.9 - TYPE 2 DIABETES MELLITUS WITHOUT COMPLICATIONS Qualifiers: Diabetes mellitus complication detail: with other kidney complication (10) Dyspnea Code(s): R06.00 - DYSPNEA, UNSPECIFIED Qualifiers: Dyspnea type: shortness of breath Qualified Code(s): R06.02 - Shortness of breath (11) Pressure ulcer of lower extremity, stage 1 Code(s): L89.891 - PRESSURE ULCER OF OTHER SITE, STAGE 1 (12) Sepsis Code(s): A41.9 - SEPSIS, UNSPECIFIED ORGANISM Qualifiers: Sepsis type: sepsis due to unspecified organism Qualified Code(s): A41.9 - Sepsis, unspecified organism (13) Weakness of both lower limbs Code(s): M62.81 - MUSCLE WEAKNESS (GENERALIZED) (14) Wound of left shoulder Code(s): S41.002A - UNSPECIFIED OPEN WOUND OF LEFT SHOULDER, INITIAL ENCOUNTER Qualifiers: Encounter type: subsequent encounter Qualified Code(s): S41.002D - Unspecified open wound of left shoulder, subsequent encounter (15) Acute respiratory distress Code(s): R06.00 - DYSPNEA, UNSPECIFIED Assessment/Plan INTUBATED ON VENT SUPPORT SEPSIS ON ABX ANEMIA WORSE, DISCUSS WITH NEPHROLOGY IF PRBC TRANSFUSION CAN BE TOLERATED BP SUPPORT, LASIX DRIP,DOBUTAMINE FOR INOTROPIC EFFECT RENAL FAILURE NEPHROLOGY FOLLOW UP WILL NEED HD TODAY POOR OVERALL PROGNOSIS DISCUSSED WITH HIS BROTHER MARCIO AND NIECE OVER THE PHONE FOR 20 MINS VERY CRITICAL AT THIS TIME SURGERY EVAL FOR LEG EDEMA AND LEFT BACK WOUND DVT PROPHYLAXIS PASTOR AVALOS
[2016-06-21] MEDS: DOBUTAMINE HCL 250,000 MCG in SODIUM CHLORIDE 230 ML IV SCH (15:07)
[2016-06-21] MEDS ORDERED: VANCOMYCIN 1 GRAM (PRE-DOCKED) 250 ML IVPB SCH (18:00)
[2016-06-21] MEDS: morphine CARPU-JECT 4 MG/1 ML DISP.SYRIN IVPUSH PRN (23:42)
[2016-06-22] MEDS: METRONIDAZOLE PREMIXED IVPB 50 ML IVPB SCH ×3 (01:12→18:13)
[2016-06-22] MEDS ORDERED: FUROSEMIDE 100 MG/10 ML INJECTABLE VIAL ONE ×2 (05:19→15:54)
[2016-06-22 06:16] LABS: BASOPHIL 0.1 % (0-2.0); EOSINOPHIL 0.2 % (0-4.5); MCH 28.9 pg (25.7-33.7); MCHC 33.8 g/dl (32.0-35.9); MEAN CELL VOLUME 85.4 fl (80-96); MEAN PLT VOLUME 8.6 fl (7.5-11.1); NEUTROPHILS 93.9 % (42.8-82.8); PLATELET COUNT 97 K/MM3 (134-434); RDW 17.5 % (11.9-15.9); WHITE BLOOD COUNT 18.7 K/mm3 (4.0-10.0)
[2016-06-22 06:40] LABS: ALBUMIN 1.4 g/dl (3.4-5.0); CALCIUM 7.7 mg/dL (8.5-10.1)
[2016-06-22 06:42] LABS: BILIRUBIN,TOTAL 1.3 mg/dL (0.2-1.0); CREATININE 2.8 mg/dL (0.7-1.3)
[2016-06-22] MEDS: INSULIN SLIDING SCALE (NOVOLOG) 1 VIAL SQ SCH ×5 (06:48→21:51)
[2016-06-22] MEDS: LEVOTHYROXINE SODIUM 100 MCG VIAL IVPUSH SCH ×2 (06:48→07:52)
[2016-06-22] MEDS ORDERED: PT OWN MED DRAWER 7, Y5N ONE ×2 (08:48→18:11)
--- NOTE | 2016-06-22 09:32 | PN ---
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 (short form) - Note 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: Seen and examined in the ICU Extubated yesterday Tolerated HD PRBC with HD w/ appropriate bump cont SALT WASHER and lasix gtt with minimal u/o MRSA in sputum, added back vanco Current Medications Brimonidine Tartrate (Alphagan 0.2% -) 1 drop OU BID [facility] Last Admin: 06/21/16 21:10 Dose: 1 drop Chlorhexidine Gluconate (Peridex -) 15 ml MM BID [facility] Last Admin: 06/21/16 21:09 Dose: Not Given Collagenase (Santyl -) 1 applic TP BID [facility] Last Admin: 06/21/16 21:09 Dose: 1 applic Heparin Sodium (Porcine) (Heparin -) 5,000 unit SQ BID [facility] Last Admin: 06/21/16 21:09 Dose: 5,000 unit Dobutamine HCl 250,000 mcg/ (Sodium Chloride) 250 mls @ 31.98 mls/hr IV TITR [facility]; 5 MCG/KG/MIN PRN Reason: Protocol Last Admin: 06/21/16 15:07 Dose: 31.98 mls/hr Furosemide 100 mg/ Sodium (Chloride) 100 mls @ 10 mls/hr IVPB ASDIR [facility] PRN Reason: 10 MG/HR Last Admin: 06/21/16 18:03 Dose: 10 mls/hr Metronidazole (Flagyl 250mg Premixed Ivpb -) 50 mls @ 50 mls/hr IVPB Q8H-IV [facility] Last Admin: 06/22/16 01:12 Dose: 50 mls/hr Ceftriaxone Sodium (Rocephin 1gm Ivpb (Pre-Docked)) 50 mls @ 100 mls/hr IVPB DAILY [facility] Last Admin: 06/21/16 11:31 Dose: 100 mls/hr Insulin Aspart (Novolog Vial Sliding Scale -) 1 vial SQ ACHS [facility] PRN Reason: Protocol Last Admin: 06/22/16 06:48 Dose: Not Given Levothyroxine Sodium (Synthroid Injection -) 25 mcg IVPUSH AM [facility] Last Admin: 06/22/16 07:52 Dose: 25 mcg Morphine Sulfate (Morphine Injection -) 2 mg IVPUSH Q4H PRN PRN Reason: PAIN LEVEL 1-5 Last Admin: 06/21/16 21:11 Dose: 2 mg Morphine Sulfate (Morphine Injection -) 4 mg IVPUSH Q4H PRN PRN Reason: PAIN LEVEL 6-10 Last Admin: 06/21/16 23:42 Dose: 4 mg Pantoprazole Sodium (Protonix -) 40 mg PO DAILY [facility] Sevelamer Carbonate (Renvela Powder Packet -) 0.8 gm PO TIDCM [facility] Last Admin: 06/21/16 17:10 Dose: Not Given Silver Sulfadiazine (Silvadene -) 1 applic TP BID [facility] Last Admin: 06/21/16 21:10 Dose: 1 applic Sodium Bicarbonate (Sodium Bicarbonate -) 650 mg PO BID [facility] Last Admin: 06/21/16 21:19 Dose: 650 mg Vital Signs Period Temp Pulse Resp BP Sys/Hubbard Pulse Ox Last 24 Hr 97 F-98.8 F 99-108 20-26 104-123/53-76 97-100 Intake & Output 06/19/16 06/20/16 06/21/16 06/22/16 23:59 23:59 23:59 23:59 Intake Total 2828 2774.8 2284.4 554 Output Total 900 425 425 50 Balance 1928 2349.8 1859.4 504 Weight 102.739 kg 106.141 kg 103.8 kg 103.346 kg Exam: General: awake and cooperative, HEENT: PERRL, +JVD CV: ST, no m/r/g Pulm: few insp crackles Abd: obese, SNTND Ext: +4 Le edema, chronic venous stasus changes Neuro: soft voice able to answer questions, [place] CBCD WBC 18.7 K/mm3 (4.0-10.0) H 06/22/16 06:00 RBC 2.87 M/mm3 (4.00-5.60) L 06/22/16 06:00 Hgb 8.3 GM/dL (11.7-16.9) L D 06/22/16 06:00 Hct 24.5 % (35.4-49) L D 06/22/16 06:00 MCV 85.4 fl (80-96) 06/22/16 06:00 MCHC 33.8 g/dl (32.0-35.9) 06/22/16 06:00 RDW 17.5 % (11.9-15.9) H 06/22/16 06:00 Plt Count 97 K/MM3 (134-434) L 06/22/16 06:00 MPV 8.6 fl (7.5-11.1) 06/22/16 06:00 CMP Sodium 139 mmol/L (136-145) 06/22/16 05:20 Potassium 3.7 mmol/L (3.5-5.1) 06/22/16 05:20 Chloride 99 mmol/L (98-107) 06/22/16 05:20 Carbon Dioxide 29 mmol/L (21-32) 06/22/16 05:20 Anion Gap 11 (8-16) 06/22/16 05:20 BUN 53 mg/dL (7-18) H D 06/22/16 05:20 Creatinine 2.8 mg/dL (0.7-1.3) H D 06/22/16 05:20 Creat Clearance w eGFR 22.14 (>60) 06/22/16 05:20 Random Glucose 97 mg/dL (74-106) 06/22/16 05:20 Calcium 7.7 mg/dL (8.5-10.1) L 06/22/16 05:20 Total Bilirubin 1.3 mg/dL (0.2-1.0) H 06/22/16 05:20 AST 19 U/L (15-37) 06/22/16 05:20 ALT 13 U/L (12-78) 06/22/16 05:20 Alkaline Phosphatase 83 U/L (45-117) 06/22/16 05:20 Total Protein 5.0 g/dl (6.4-8.2) L 06/22/16 05:20 Albumin 1.4 g/dl (3.4-5.0) L 06/22/16 05:20 CARDIAC ENZYMES Creatine Kinase 236 IU/L (39-308) D 06/11/16 05:15 Troponin I 0.14 ng/ml (0.00-0.05) H D 06/11/16 05:15 Microbiology 06/18/16 17:00 Blood - Picc Line Blood Culture - Preliminary NO GROWTH OBTAINED AFTER 72 HOURS, INCUBATION TO CONTINUE FOR 2 DAYS. 06/18/16 15:15 Blood - Peripheral Venous Blood Culture - Preliminary NO GROWTH OBTAINED AFTER 72 HOURS, INCUBATION TO CONTINUE FOR 2 DAYS. 06/18/16 15:35 Blood - Peripheral Venous Blood Culture - Preliminary NO GROWTH OBTAINED AFTER 72 HOURS, INCUBATION TO CONTINUE FOR 2 DAYS. 06/18/16 17:00 Sputum - Endotrachea Suction/Ventilator Gram Stain - Final 06/18/16 17:00 Sputum - Endotrachea Suction/Ventilator Sputum Culture - Preliminary Staphylococcus Latex Coag Pos 06/18/16 17:00 Urine - Urine López Urine Culture - Final NO GROWTH OBTAINED 06/10/16 04:30 Nasopharyngeal Swab Respiratory Virus Panel - Preliminary 06/09/16 23:00 Blood - Peripheral Venous Blood Culture - Final NO GROWTH AFTER 5 DAYS INCUBATION 06/09/16 23:00 Blood - Peripheral Venous Blood Culture - Final NO GROWTH AFTER 5 DAYS INCUBATION 06/10/16 04:30 Shoulder - Left Gram Stain - Final 06/10/16 04:30 Shoulder - Left Wound Culture - Final Mr S Aureus Staphylococcus Coagulase Neg Yeast Like Organism 06/10/16 00:20 Urine - Urine López Urine Culture - Final NO GROWTH OBTAINED 06/10/16 05:30 Urine For Antigen Detection Legionella Antigen - Final 06/10/16 05:30 Urine For Antigen Detection Streptococcus pneumoniae Antigen (M - Final 06/10/16 04:30 Nasopharyngeal Swab Influenza Types A,B Antigen (ANH) - Final 06/10/16 04:30 Nasopharyngeal Swab - Final ASSESSMENT AND PLAN: Acute Respiratory Failure -- resolved MRSA pneumonia Back/Shoulder Cellulitis/Abscess Septic vs Cardiogenic Shock Acute on Chronic Renal Failure Metabolic Acidosis Acute on Chronic LV Systolic Heart Failure Atrial Fibrillation COPD Hyponatremia Atelectasis improving - O2 for Sat >9% - continue dobutamine/lasix gtts goal O>I per renal - HD TIW - normal transfusion thresholds - ABX per ID: vanco added for MRSA in sputum - local wound care - O2 to keep SpO2 >90% - aspiration precautions - inhaled bronchodilators - NPO - DVT/GI prophylaxis - continue ICU monitoring Boerem ACNP Pulm/CCM CCT: 35 Problem List - Problems (1) MRSA (methicillin resistant staph aureus) culture positive Code(s): Z22.322 - CARRIER OR SUSPECTED CARRIER OF METHICILLIN RESIS STAPH
[2016-06-22] MEDS ORDERED: PANTOPRAZOLE 40 MG TABLET (FP) PO SCH (10:00)
[2016-06-22] MEDS: SEVELAMER CARBONATE 0.8 GM POWDER PACKET PO SCH ×2 (10:00→16:48)
--- NOTE | 2016-06-22 10:00 | PN ---
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, Physician History of Present Illness: Awake, alert Breathing non-labored + Congestion / cough afebrile WBC remains elevated Sputum C/S MRSA - Current Medication List Current Medications: Active Medications Brimonidine Tartrate (Alphagan 0.2% -) 1 drop OU BID [facility] Last Admin: 06/21/16 21:10 Dose: 1 drop Chlorhexidine Gluconate (Peridex -) 15 ml MM BID [facility] Last Admin: 06/21/16 21:09 Dose: Not Given Collagenase (Santyl -) 1 applic TP BID [facility] Last Admin: 06/21/16 21:09 Dose: 1 applic Heparin Sodium (Porcine) (Heparin -) 5,000 unit SQ BID [facility] Last Admin: 06/21/16 21:09 Dose: 5,000 unit Dobutamine HCl 250,000 mcg/ (Sodium Chloride) 250 mls @ 31.98 mls/hr IV TITR [facility]; 5 MCG/KG/MIN PRN Reason: Protocol Last Admin: 06/21/16 15:07 Dose: 31.98 mls/hr Furosemide 100 mg/ Sodium (Chloride) 100 mls @ 10 mls/hr IVPB ASDIR [facility] PRN Reason: 10 MG/HR Last Admin: 06/21/16 18:03 Dose: 10 mls/hr Metronidazole (Flagyl 250mg Premixed Ivpb -) 50 mls @ 50 mls/hr IVPB Q8H-IV [facility] Last Admin: 06/22/16 01:12 Dose: 50 mls/hr Ceftriaxone Sodium (Rocephin 1gm Ivpb (Pre-Docked)) 50 mls @ 100 mls/hr IVPB DAILY [facility] Last Admin: 06/21/16 11:31 Dose: 100 mls/hr Insulin Aspart (Novolog Vial Sliding Scale -) 1 vial SQ ACHS [facility] PRN Reason: Protocol Last Admin: 06/22/16 06:48 Dose: Not Given Levothyroxine Sodium (Synthroid Injection -) 25 mcg IVPUSH AM [facility] Last Admin: 06/22/16 07:52 Dose: 25 mcg Morphine Sulfate (Morphine Injection -) 2 mg IVPUSH Q4H PRN PRN Reason: PAIN LEVEL 1-5 Last Admin: 06/21/16 21:11 Dose: 2 mg Morphine Sulfate (Morphine Injection -) 4 mg IVPUSH Q4H PRN PRN Reason: PAIN LEVEL 6-10 Last Admin: 06/21/16 23:42 Dose: 4 mg Pantoprazole Sodium (Protonix -) 40 mg PO DAILY [facility] Sevelamer Carbonate (Renvela Powder Packet -) 0.8 gm PO TIDCM [facility] Last Admin: 06/21/16 17:10 Dose: Not Given Silver Sulfadiazine (Silvadene -) 1 applic TP BID [facility] Last Admin: 06/21/16 21:10 Dose: 1 applic Sodium Bicarbonate (Sodium Bicarbonate -) 650 mg PO BID [facility] Last Admin: 06/21/16 21:19 Dose: 650 mg - Objective Vital Signs: Vital Signs Temperature 98.4 F 06/22/16 06:00 Pulse Rate 102 H 06/22/16 06:00 Respiratory Rate 22 06/22/16 06:00 Blood Pressure 116/74 06/22/16 06:00 O2 Sat by Pulse Oximetry (%) 100 06/21/16 20:00 Constitutional: Yes: No Distress, Obese Eyes: Yes: Conjunctiva Clear Cardiovascular: Yes: Regular Rate and Rhythm, Tachycardia, S1, S2 Respiratory: Yes: Diminished Gastrointestinal: Yes: Normal Bowel Sounds, Soft, Abdomen, Obese. No: Tenderness Genitourinary: Yes: Scrotal Edema Edema: Yes Edema: LUE: 1+, RUE: 1+, LLE: 1+, RLE: 1+ Integumentary: Yes: Other (port R chest no erythema / tenderness) Labs: CBC, BMP 06/22/16 06:00 06/22/16 05:20 INR, PTT INR 1.85 (0.82-1.09) H 06/11/16 05:15 Fibrinogen 405.0 mg/dL (238-498) 06/10/16 04:45 Assessment/Plan Sepsis/ septic shock + sputum c/s MRSA Multiple decubitus ulcers CKD Electrolyte imbalance Toxic metabolic encephalopathy Leukocytosis Thrombocytopenia Recent polymicrobial bacteremia Continue ceftriaxone/ flagyl Redose vancomycin
[2016-06-22] MEDS: CEFTRIAXONE 50 ML IVPB SCH (10:01)
[2016-06-22] MEDS: SODIUM BICARBONATE 650 MG TABLET PO SCH ×2 (10:01→22:40)
[2016-06-22] MEDS: CHLORHEXIDINE GLUCONATE 0.12% 15ML CUP MM SCH ×2 (10:01→21:51)
[2016-06-22] MEDS: HEPARIN NA (PORCINE) 5,000 UNITS/ML 1ML VIAL SQ SCH ×2 (10:01→21:50)
[2016-06-22] MEDS ORDERED: VANCOMYCIN 1 GRAM (PRE-DOCKED) 250 ML IVPB ONE (10:45)
[2016-06-22] MEDS: DOBUTAMINE HCL 250,000 MCG in SODIUM CHLORIDE 230 ML IV SCH ×2 (11:00→15:00)
--- NOTE | 2016-06-22 11:36 | PN ---
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 (short form) - Note 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: RENAL awake and alert has been extubated speaks very softly Last Vital Signs Temp Pulse Resp BP Pulse Ox 98.4 F 102 H 24 109/64 100 06/22/16 06:00 06/22/16 10:08 06/22/16 08:00 06/22/16 08:00 06/22/16 10:08 lungs rhonchi, coughing cvs s1s2 rr abd soft ext +edema neuro a+o CBC, BMP 06/22/16 06:00 06/22/16 05:20 Current Medications Generic Name Dose Route Start Last Admin Trade Name Freq PRN Reason Stop Dose Admin Brimonidine Tartrate 1 drop 06/10/16 10:00 06/21/16 21:10 Alphagan 0.2% - OU 1 drop BID [facility] Administration Chlorhexidine Gluconate 15 ml 06/17/16 23:30 06/22/16 10:01 Peridex - MM Not Given BID [facility] Collagenase 1 applic 06/13/16 22:00 06/21/16 21:09 Santyl - TP 1 applic BID [facility] Administration Heparin Sodium (Porcine) 5,000 unit 06/20/16 22:00 06/22/16 10:01 Heparin - SQ 5,000 unit BID [facility] Administration Dobutamine HCl 250,000 mcg/ 250 mls @ 31.98 mls/hr 06/15/16 11:00 06/21/16 15: 07 Sodium Chloride IV 31.98 mls/hr TITR [facility] Administration Protocol 5 MCG/KG/MIN Furosemide 100 mg/ Sodium 100 mls @ 10 mls/hr 06/18/16 13:08 06/21/16 18:03 Chloride IVPB 10 mls/hr ASDIR [facility] Administration 10 MG/HR Metronidazole 50 mls @ 50 mls/hr 06/20/16 10:00 06/22/16 10:01 Flagyl 250mg Premixed Ivpb - IVPB 50 mls/hr Q8H-IV [facility] Administration Ceftriaxone Sodium 50 mls @ 100 mls/hr 06/21/16 10:00 06/22/16 10:01 Rocephin 1gm Ivpb (Pre-Docked) IVPB 100 mls/hr DAILY [facility] Administration Vancomycin HCl 250 mls @ 166.667 mls/hr 06/22/16 10:45 Vancomycin (Pre-Docked) IVPB 06/22/16 12:14 ONCE ONE Famotidine/Sodium Chloride 50 mls @ 100 mls/hr 06/22/16 10:45 Pepcid 20 Mg Premixed Ivpb - IVPB Q48H [facility] Insulin Aspart 1 vial 06/10/16 16:30 06/22/16 06:48 Novolog Vial Sliding Scale - SQ Not Given ACHS [facility] Protocol Levothyroxine Sodium 25 mcg 06/10/16 07:00 06/22/16 07:52 Synthroid Injection - IVPUSH 25 mcg AM [facility] Administration Morphine Sulfate 2 mg 06/21/16 12:38 06/21/16 21:11 Morphine Injection - IVPUSH 2 mg Q4H PRN Administration PAIN LEVEL 1-5 Morphine Sulfate 4 mg 06/21/16 12:25 06/21/16 23:42 Morphine Injection - IVPUSH 4 mg Q4H PRN Administration PAIN LEVEL 6-10 Sevelamer Carbonate 0.8 gm 06/15/16 12:50 06/22/16 10:00 Renvela Powder Packet - PO Not Given TIDCM [facility] Silver Sulfadiazine 1 applic 06/17/16 22:00 06/21/16 21:10 Silvadene - TP 1 applic BID [facility] Administration Sodium Bicarbonate 650 mg 06/12/16 22:00 06/22/16 10:01 Sodium Bicarbonate - PO Not Given BID [facility] Impression 1. CASE on CKD 2. sepsis with shock 3. cellulitis/abscess of back 4. CHF acute 5. hypothyroidism 6. hyperlipidemia 7. COPD 8. htn 9. a-fib 10. hyponatremia - isoosmolar 11. acute respiratory failure requiring intubation Plan -can be redialyzed again tomorrow if fluid removal is necessary -repeat inr -monitor cbc -monitor I/O. Only had 430 cc of UO yesterday. Maybe better to dc lasix since he does not respond MV
[2016-06-22] MEDS: BRIMONIDINE TARTRATE 0.2% OPHTHALMIC 5 ML BOTTLE OU SCH ×2 (12:13→21:50)
[2016-06-22] MEDS: COLLAGENASE CLOSTRIDIUM HIST. 30 GRAMS TUBE TP SCH ×2 (12:13→21:51)
[2016-06-22] MEDS: SILVER SULFADIAZINE 1% TOP CREAM 50 GM JAR TP SCH ×2 (12:14→21:52)
[2016-06-22] MEDS: FAMOTIDINE 20 MG/50 ML IVPB 50 ML IVPB SCH (12:20)
[2016-06-22] MEDS: morphine CARPU-JECT 4 MG/1 ML DISP.SYRIN IVPUSH PRN (12:20)
[2016-06-22] MEDS: FUROSEMIDE INJECTION 100 MG in SODIUM CHLORIDE 90 ML IVPB SCH (18:08)
[2016-06-22] MEDS ORDERED: ACETYLCYSTEINE 20% 200MG/ML 4 ML VIAL *FOR ORAL / INH USE ONLY ONE (18:37)
[2016-06-22] MEDS ORDERED: ALBUTEROL SO4 0.083% IH SOL 2.5 MG/3 ML VIAL.NEB. NEB ONE ×2 (18:37→18:45)
[2016-06-22] MEDS ORDERED: ACETYLCYSTEINE 20% 200MG/ML 4 ML VIAL *FOR ORAL / INH USE ONLY NEB ONE (18:45)
[2016-06-22 18:50] LABS: ARTERIAL BLD GAS O2 SATURATION 90.4 % (90-98.9); ARTERIAL BLOOD GAS BASE EXCESS -0.9 meq/l (-2-2); ARTERIAL BLOOD GAS HCO3 24.9 meq/L (22-26); ARTERIAL BLOOD GAS PO2 63.1 mmHg (70-100); ARTERIAL BLOOD GAS pH 7.31 (7.35-7.45)
[2016-06-22 18:51] LABS: ALLENS TEST POSITIVE; ART PUNCT SITE LEFT RADIAL; LPM/O2% 50%; PT. ON O2? YES; TYPE OF O2 FACE TENT
[2016-06-22 21:31] LABS: CALCIUM 7.7 mg/dL (8.5-10.1); COCKROFT - GAULT 29.63; CREATININE 3.1 mg/dL (0.7-1.3); MAGNESIUM 1.8 mg/dL (1.8-2.4); PHOSPHOROUS 4.8 mg/dL (2.5-4.9)
[2016-06-22] MEDS ORDERED: DOBUTAMINE 250 MG/D5W - 250 ML ONE (22:46)
[2016-06-22] MEDS ORDERED: MAGNESIUM SULF 50% (8.12 MEQ/2 ML-1 GM VIAL) ONE (22:52)
[2016-06-22] MEDS ORDERED: MAGNESIUM SULF 50% (8.12 MEQ/2 ML-1 GM VIAL) IVPB ONE (22:52)
[2016-06-22 23:22] LABS: ALLENS TEST POSITIVE; ART PUNCT SITE RIGHT RADIAL; ARTERIAL BLOOD GAS BASE EXCESS -0.9 meq/l (-2-2); ARTERIAL BLOOD GAS HCO3 24.7 meq/L (22-26); ARTERIAL BLOOD GAS pH 7.33 (7.35-7.45); LPM/O2% 50%; PT. ON O2? YES
[2016-06-22 23:23] LABS: TYPE OF O2 BIPAP; VENT RATE 16; VT/PRESS 16/6
[2016-06-23] MEDS ORDERED: PT OWN MED DRAWER 7, Y5N ONE ×7 (01:44→23:16)
[2016-06-23] MEDS: METRONIDAZOLE PREMIXED IVPB 50 ML IVPB SCH ×3 (01:45→18:28)
[2016-06-23] MEDS: DOBUTAMINE HCL 250,000 MCG in SODIUM CHLORIDE 230 ML IV SCH ×4 (01:46→23:28)
[2016-06-23] MEDS ORDERED: FUROSEMIDE 100 MG/10 ML INJECTABLE VIAL ONE (01:50)
[2016-06-23] MEDS: FUROSEMIDE INJECTION 100 MG in SODIUM CHLORIDE 90 ML IVPB SCH (02:28)
[2016-06-23 06:26] LABS: MCH 28.4 pg (25.7-33.7); MCHC 32.6 g/dl (32.0-35.9); MEAN PLT VOLUME 8.5 fl (7.5-11.1); PLATELET COUNT 87 K/MM3 (134-434); RDW 17.4 % (11.9-15.9); WHITE BLOOD COUNT 12.6 K/mm3 (4.0-10.0)
[2016-06-23] MEDS: INSULIN SLIDING SCALE (NOVOLOG) 1 VIAL SQ SCH ×4 (06:45→23:15)
[2016-06-23] MEDS: LEVOTHYROXINE SODIUM 100 MCG VIAL IVPUSH SCH (06:46)
[2016-06-23 07:03] LABS: CALCIUM 7.8 mg/dL (8.5-10.1); COCKROFT - GAULT 26.6; CREATININE 3.4 mg/dL (0.7-1.3); PHOSPHOROUS 5.1 mg/dL (2.5-4.9)
--- NOTE | 2016-06-23 08:02 | PN ---
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, Physician Chief Complaint: ID Overall not much change in clinical status Antibiotics continue as before Vancomycin metronidazole and Ceftriaxone Day 4 therapy - Current Medication List Current Medications: Active Medications Brimonidine Tartrate (Alphagan 0.2% -) 1 drop OU BID [facility] Last Admin: 06/22/16 21:50 Dose: 1 drop Chlorhexidine Gluconate (Peridex -) 15 ml MM BID [facility] Last Admin: 06/22/16 21:51 Dose: 15 ml Collagenase (Santyl -) 1 applic TP BID [facility] Last Admin: 06/22/16 21:51 Dose: 1 applic Heparin Sodium (Porcine) (Heparin -) 5,000 unit SQ BID [facility] Last Admin: 06/22/16 21:50 Dose: 5,000 unit Dobutamine HCl 250,000 mcg/ (Sodium Chloride) 250 mls @ 31.98 mls/hr IV TITR [facility]; 5 MCG/KG/MIN PRN Reason: Protocol Last Admin: 06/23/16 06:49 Dose: 31.98 mls/hr Furosemide 100 mg/ Sodium (Chloride) 100 mls @ 10 mls/hr IVPB ASDIR [facility] PRN Reason: 10 MG/HR Last Admin: 06/23/16 02:28 Dose: 10 mls/hr Metronidazole (Flagyl 250mg Premixed Ivpb -) 50 mls @ 50 mls/hr IVPB Q8H-IV [facility] Last Admin: 06/23/16 01:45 Dose: 50 mls/hr Ceftriaxone Sodium (Rocephin 1gm Ivpb (Pre-Docked)) 50 mls @ 100 mls/hr IVPB DAILY [facility] Last Admin: 06/22/16 10:01 Dose: 100 mls/hr Famotidine/Sodium Chloride (Pepcid 20 Mg Premixed Ivpb -) 50 mls @ 100 mls/hr IVPB Q48H [facility] Last Admin: 06/22/16 12:20 Dose: 100 mls/hr Insulin Aspart (Novolog Vial Sliding Scale -) 1 vial SQ ACHS [facility] PRN Reason: Protocol Last Admin: 06/23/16 06:45 Dose: Not Given Levothyroxine Sodium (Synthroid Injection -) 25 mcg IVPUSH AM [facility] Last Admin: 06/23/16 06:46 Dose: 25 mcg Morphine Sulfate (Morphine Injection -) 2 mg IVPUSH Q4H PRN PRN Reason: PAIN LEVEL 1-5 Last Admin: 06/21/16 21:11 Dose: 2 mg Morphine Sulfate (Morphine Injection -) 4 mg IVPUSH Q4H PRN PRN Reason: PAIN LEVEL 6-10 Last Admin: 06/22/16 12:20 Dose: 4 mg Sevelamer Carbonate (Renvela Powder Packet -) 0.8 gm PO TIDCM [facility] Last Admin: 06/22/16 16:48 Dose: Not Given Silver Sulfadiazine (Silvadene -) 1 applic TP BID [facility] Last Admin: 06/22/16 21:52 Dose: 1 applic Sodium Bicarbonate (Sodium Bicarbonate -) 650 mg PO BID [facility] Last Admin: 06/22/16 22:40 Dose: Not Given - Objective Vital Signs: Vital Signs Temperature 97.5 F L 06/23/16 07:00 Pulse Rate 105 H 06/23/16 07:00 Respiratory Rate 18 06/23/16 07:00 Blood Pressure 108/68 06/23/16 07:00 O2 Sat by Pulse Oximetry (%) 100 06/22/16 21:14 Labs: CBC, BMP 06/23/16 05:55 06/23/16 05:55 INR, PTT INR 1.85 (0.82-1.09) H 06/11/16 05:15 Fibrinogen 405.0 mg/dL (238-498) 06/10/16 04:45 Assessment/Plan Microbiology 06/18/16 17:00 Urine - Urine López Urine Culture - Final NO GROWTH OBTAINED 06/18/16 17:00 Sputum - Endotrachea Suction/Ventilator Gram Stain - Final 06/18/16 17:00 Sputum - Endotrachea Suction/Ventilator Sputum Culture - Final S Aureus 06/18/16 17:00 Blood - Picc Line Blood Culture - Preliminary NO GROWTH OBTAINED AFTER 96 HOURS, INCUBATION TO CONTINUE FOR 1 DAYS. 06/18/16 15:35 Blood - Peripheral Venous Blood Culture - Preliminary NO GROWTH OBTAINED AFTER 96 HOURS, INCUBATION TO CONTINUE FOR 1 DAYS. Laboratory Tests 06/22/16 06/23/16 06:00 05:55 WBC 18.7 H 12.6 H D Hgb 7.8 L Hct 23.8 L Plt Count 87 L Assessment Sepsis syndrome day 4 therapy ? skin source MRSA sputum ? pneumonia Acute renal failure Multiple decubitus ulcers and wounds Plan Vancomycin level pending Complete 7 days of therapy encouraged somewhat by falling WBC count Kris MOSQUERA
[2016-06-23] MEDS: SEVELAMER CARBONATE 0.8 GM POWDER PACKET PO SCH ×4 (09:07→18:31)
[2016-06-23] MEDS: SODIUM BICARBONATE 650 MG TABLET PO SCH ×3 (09:07→23:21)
[2016-06-23] MEDS: CEFTRIAXONE 50 ML IVPB SCH (09:30)
[2016-06-23] MEDS: CHLORHEXIDINE GLUCONATE 0.12% 15ML CUP MM SCH ×2 (09:31→23:19)
[2016-06-23] MEDS: BRIMONIDINE TARTRATE 0.2% OPHTHALMIC 5 ML BOTTLE OU SCH ×2 (09:31→23:19)
[2016-06-23] MEDS: HEPARIN NA (PORCINE) 5,000 UNITS/ML 1ML VIAL SQ SCH ×2 (09:40→23:19)
--- NOTE | 2016-06-23 10:49 | CONSULT ---
Admitting History and Physical - Primary Care Physician PCP: Davin Dee - Admission History of Present Illness: pt in ICU pt with CASE on CKD, sepsis with shock, cellulitis / abscess of back/shoulder, HLD, COPD, HTN, AFIB, hyponatremia, medical hx includes:CAD, MO, DM, CKD multiple skin ulcers ulcers, encephalopathy Intubated 06/16-extubated 06/21 - Past Medical History Cardiovascular: Yes: AFIB (atrial flutter), CHF (chronic systolic CHF), HTN Pulmonary: Yes: COPD Gastrointestinal: Yes: Diverticulosis, Peptic Ulcer Disease Renal/: Yes: Renal Inusuff Endocrine: Yes: Diabetes Mellitus - Past Surgical History Past Surgical History: Yes: Colonoscopy, Upper Endoscopy - Advance Directives Advance Directives: Yes: MOLST, Health Care Proxy - Smoking History Smoking history: Never smoked Have you smoked in the past 12 months: No - Alcohol/Substance Use Hx Alcohol Use: No - Social History Usual Living Arrangement: Yes: Other (patient lives at home alone with no stairs in home. used walker as needed to aide in ambulation. was admitted from [facility] for sub-acute rehab) Occupation: worked for the [employer] History - Admission Reason For Visit: HYPONATREMIA HYPOTHERMIA SEPSIS - Diagnostics X-ray: Report Reviewed - General Mental Status: Awake and Alert (Disoriented to place. Knows "76" yo, "2021") Attention: Distractible Ability to Follow Directions: Fair Head/Neck Control: Fair - Hearing Hearing: Normal Hearing Aide: No Speech Evaluation - Communication Primary Language: AZERBAIJANI Communication: Yes: Simple Responses - Speech Production Intelligibility: Yes: Mildly Impaired - Speech Characteristics Voice Loudness: Excessive Variation Voice Pitch: Yes: Normal Speech Pattern: Impaired Articulation: Yes: Precise Voice, Other Observations: Yes: Inadequate Breath Support (SOB while speaking. Nursing aware. O2 sat 100%. CO2 retention yesterday, but more lethargic. Was on BIPAP yesterday. VM trial today.) - Language/Auditory Comprehension Follows: Yes: 1 Stage Simple Commands Observation: Able to respond to yes/no queries: Yes, Comprehends Conversational Speech: Yes, Benefits from Repetiton: Yes - Swallow Evaluation/Bedside Assessment Current Nutritional Intake: NPO Dentition: Yes: Adequate Facial Symmetry at Rest: Symmetrical Facial Symmetry on Retraction: Symmetrical Facial Movement: Controlled Against Resistance Opening: Normal Against Resistance Closing: Normal Pucker Lips: Normal Smile: Normal Lingual Movement: Normal Lingual Speed of Movement: Normal Lingual Movement Strgth Against Opposition: Normal Lingual Movement Characteristics: Normal Velopharyngeal Movement: Normal Laryngeal Elevation: WFL Laryngeal Movement: Able to Palpate (but uncoordinated due to increased RR, sob. ) Labial Seal: WFL Oral Prep Time: WFL A-P Transit: WFL Timing of Swallow: Delayed Coughing/Throat Clear: Yes (wet cough with thin liquid) Change in Voice: Yes (gurgly, wet) Recommendations - Speech Evaluation, Impression/Plan Impression: Impaired resp capacity for speech with increased RR. Good vocal quality. swallow is brisk but uncoordinated due to increased RR, sob with vocal wetness and responsive cough with water. - Dysphagia Impressions/Plan Swallowing Skills: Impaired (at present due to impaired coordination of respiration with deglutition.) *Silent aspiration: cannot be R/O at bedside - Recommendations Diet Consistency: Other (Hold po for now, except for meds. Once RR is controlled , trial of puree and nectar.) Medication Administration: Crushed with applesauce
--- NOTE | 2016-06-23 11:08 | PN ---
Physical Exam: SUBJECTIVE: Patient seen and examined patient lying comfortably in bed. patient was extubated on Thursday. patient on bipap maintaing a saturation of 96 % patient was dialysed on thursday and thursday urine output 475 OBJECTIVE: Vital Signs Period Temp Pulse Resp BP Sys/Hubbard Pulse Ox Last 24 Hr 94.3 F-98.1 F 76-106 18-28 95-118/62-85 94-100 GENERAL: The patient is awake, alert, disorented HEAD: Normal with no signs of trauma. EYES: Pupils equal, round and reactive to light, NECK no lymphadenopathy LUNGS:b/l air entry present, diffuse ronchi, no wheez, pulmonary cath in situ, dialysis cath in situ. HEART: s1s2 normal, ABDOMEN: Soft, nontender, not distended, normoactive bowel sounds, no guarding, no rebound, no masses. scrotal and penile swelling decreased UPPER EXTREMITIES: 2+ pulses, warm, well-perfused. No cyanosis. No clubbing. Cap refill <2 seconds. . LOWER EXTREMITIES: multiple ulcers resent on b/l lower limb, pitting edema decreased Laboratory Results - last 24 hr 06/22/16 06/22/16 06/22/16 18:45 20:54 23:11 WBC RBC Hgb Hct MCV MCHC RDW Plt Count MPV Puncture Site Left radial Right radial ABG pH 7.31 L 7.33 L ABG pCO2 at Pt Temp 51.1 H D 48.7 H ABG pO2 at Pt Temp 63.1 L 104.0 H D ABG HCO3 24.9 24.7 ABG O2 Sat (Measured) 90.4 98.0 ABG O2 Content 9.8 L* 12.1 L ABG Base Excess -0.9 -0.9 Frankie Test Positive Positive O2 Delivery Device Face tent Bipap Oxygen Flow Rate 50% 50% Vent Mode S/t Vent Rate 16 PEEP 0.0 0.0 Pressure Support Vent 16/6 Sodium 140 Potassium 3.8 Chloride 101 Carbon Dioxide 27 Anion Gap 12 BUN 61 H Creatinine 3.1 H Random Glucose 80 Calcium 7.7 L Phosphorus 4.8 D Magnesium 1.8 06/23/16 06/23/16 05:55 05:55 WBC 12.6 H D RBC 2.74 L Hgb 7.8 L Hct 23.8 L MCV 87.0 MCHC 32.6 RDW 17.4 H Plt Count 87 L MPV 8.5 Puncture Site ABG pH ABG pCO2 at Pt Temp ABG pO2 at Pt Temp ABG HCO3 ABG O2 Sat (Measured) ABG O2 Content ABG Base Excess Frankie Test O2 Delivery Device Oxygen Flow Rate Vent Mode Vent Rate PEEP Pressure Support Vent Sodium 140 Potassium 3.8 Chloride 100 Carbon Dioxide 28 Anion Gap 12 BUN 65 H Creatinine 3.4 H Random Glucose 83 Calcium 7.8 L Phosphorus 5.1 H Magnesium 2.0 Active Medications Generic Name Dose Route Start Last Admin Trade Name Freq PRN Reason Stop Dose Admin Bacitracin 1 applic 06/23/16 22:00 Bacitracin - TP BID [facility] Brimonidine Tartrate 1 drop 06/10/16 10:00 06/23/16 09:31 Alphagan 0.2% - OU 1 drop BID [facility] Administration Chlorhexidine Gluconate 15 ml 06/17/16 23:30 06/23/16 09:31 Peridex - MM 15 ml BID [facility] Administration Collagenase 1 applic 06/13/16 22:00 06/22/16 21:51 Santyl - TP 1 applic BID [facility] Administration Furosemide 80 mg 06/23/16 11:00 Lasix Injection - IVPUSH Q12H [facility] Heparin Sodium (Porcine) 5,000 unit 06/20/16 22:00 06/22/16 21:50 Heparin - SQ 5,000 unit BID [facility] Administration Dobutamine HCl 250,000 mcg/ 250 mls @ 31.98 mls/hr 06/15/16 11:00 06/23/16 06: 49 Sodium Chloride IV 31.98 mls/hr TITR [facility] Administration Protocol 5 MCG/KG/MIN Metronidazole 50 mls @ 50 mls/hr 06/20/16 10:00 06/23/16 01:45 Flagyl 250mg Premixed Ivpb - IVPB 50 mls/hr Q8H-IV [facility] Administration Ceftriaxone Sodium 50 mls @ 100 mls/hr 06/21/16 10:00 06/23/16 09:30 Rocephin 1gm Ivpb (Pre-Docked) IVPB 100 mls/hr DAILY [facility] Administration Famotidine/Sodium Chloride 50 mls @ 100 mls/hr 06/22/16 10:45 06/22/16 12:20 Pepcid 20 Mg Premixed Ivpb - IVPB 100 mls/hr Q48H [facility] Administration Insulin Aspart 1 vial 06/10/16 16:30 06/23/16 06:45 Novolog Vial Sliding Scale - SQ Not Given ACHS [facility] Protocol Levothyroxine Sodium 25 mcg 06/10/16 07:00 06/23/16 06:46 Synthroid Injection - IVPUSH 25 mcg AM [facility] Administration Morphine Sulfate 2 mg 06/21/16 12:38 06/21/16 21:11 Morphine Injection - IVPUSH 2 mg Q4H PRN Administration PAIN LEVEL 1-5 Morphine Sulfate 4 mg 06/21/16 12:25 06/22/16 12:20 Morphine Injection - IVPUSH 4 mg Q4H PRN Administration PAIN LEVEL 6-10 Sevelamer Carbonate 0.8 gm 06/15/16 12:50 06/23/16 09:07 Renvela Powder Packet - PO Not Given TIDCM [facility] Silver Sulfadiazine 1 applic 06/17/16 22:00 06/22/16 21:52 Silvadene - TP 1 applic BID [facility] Administration Sodium Bicarbonate 650 mg 06/12/16 22:00 06/23/16 09:07 Sodium Bicarbonate - PO Not Given BID [facility] ASSESSMENT/PLAN: shock afebrile, wbc 12.6, patient could have septic shock with cardiogenic shock monitor vitals monitor intake/ output, try to keep negative balance, follow abg in morning on dobutamin drip at 5, taper dobutamin, MAP > 65 blood culture no growth urine culture no growth sputum : mrsa + on ceftriaxone and vanco as per id hyponatremia resolved na 140 abdiaziz on ckd HD as per nephrology avoid nephrotoxic drugs nephrology on case on lasix 80mg bid stop lasix drip Acute respiratory failure with left side atelectasis improved, on nasal canula , keep spo2 .> 90 if desaturate try ventuary and bipap Hyperkalemia resolved k 3.8 on hd acute on chronic LV heart failure avoid Iv fluid daily weight maintain negative balance. lasix drip stopped and is on laisx 80 q12h monitor IO LV systolic function severly reduced, LV global hypokinesia cardiology on case lactic acidosis improved hypothermia on hector hugger prn h/o cad, A flutter/ fibrillation , chf, global hypokinesia alaquis on hold due to anemia, cardiology on case last echo on 06/10 ef 28 and global hypokinesia anemia hb 7.4 stable will give blood during hd h/o copd not active on duoneb DM on sliding scale follow bgm h/o hypothyroid on synthyroid fluid ; avoid IV fluid electrolyte ; repeat in am nutrition ; diet as per dietary recommendation dvt pro on sq heparin gi pro : on pepcid patient is full code. dispo : admit in icu Visit type - Emergency Visit Emergency Visit: Yes ED Registration Date: 06/10/16 Care time: The patient presented to the Emergency Department on the above date and was hospitalized for further evaluation of their emergent condition. - New Patient This patient is new to me today: No - Critical Care Critical Care patient: Yes Total Critical Care Time (in minutes): 45 Critical Care Statement: The care of this patient involved high complexity decision making to prevent further life threatening deterioration of the patient 's condition and/or to evalute & treat vital organ system(s) failure or risk of failure.
[2016-06-23] MEDS ORDERED: FUROSEMIDE 40 MG/4 ML INJECTABLE VIAL ONE (11:19)
[2016-06-23] MEDS ORDERED: HEMOQUE TEST 1 EACH EACH ONE (11:24)
--- NOTE | 2016-06-23 12:05 | PN ---
Teaching Attending Note Name of Resident: Patricio Andrade ATTENDING PHYSICIAN STATEMENT I saw and evaluated the patient. I reviewed the resident's note and discussed the case with the resident. I agree with the resident's findings and plan as documented. SUBJECTIVE: Pt seen and examined in the ICU. States breathing is "rough." Confused. Denies chest pain. No fevers recorded. Remains on dobutamine and lasix gtts but oliguric. OBJECTIVE: Last Vital Signs Temp Pulse Resp BP Pulse Ox 98.1 F 106 H 26 H 112/70 94 L 06/23/16 08:00 06/23/16 09:57 06/23/16 08:00 06/23/16 08:00 06/23/16 09:57 Intake & Output 06/20/16 06/21/16 06/22/16 06/23/16 23:59 23:59 23:59 23:59 Intake Total 2774.8 2284.4 554 654 Output Total 425 425 375 45 Balance 2349.8 1859.4 179 609 Weight 234 lb 228 lb 13.437 oz 227 lb 13.437 oz 224 lb 5 oz Gen: mildly tachypneic at rest Heart: tachycardic, regular Lung: scattered rhonchi Abd: soft, nontender Ext: less edema, dressings dry CBC, BMP 06/23/16 05:55 06/23/16 05:55 Active Medications Bacitracin (Bacitracin -) 1 applic TP BID [facility] Brimonidine Tartrate (Alphagan 0.2% -) 1 drop OU BID [facility] Last Admin: 06/23/16 09:31 Dose: 1 drop Chlorhexidine Gluconate (Peridex -) 15 ml MM BID [facility] Last Admin: 06/23/16 09:31 Dose: 15 ml Collagenase (Santyl -) 1 applic TP BID [facility] Last Admin: 06/22/16 21:51 Dose: 1 applic Furosemide (Lasix Injection -) 80 mg IVPUSH BIDLASIX [facility] Heparin Sodium (Porcine) (Heparin -) 5,000 unit SQ BID [facility] Last Admin: 06/23/16 09:40 Dose: 5,000 unit Dobutamine HCl 250,000 mcg/ (Sodium Chloride) 250 mls @ 31.98 mls/hr IV TITR [facility]; 5 MCG/KG/MIN PRN Reason: Protocol Last Admin: 06/23/16 06:49 Dose: 31.98 mls/hr Metronidazole (Flagyl 250mg Premixed Ivpb -) 50 mls @ 50 mls/hr IVPB Q8H-IV [facility] Last Admin: 06/23/16 01:45 Dose: 50 mls/hr Ceftriaxone Sodium (Rocephin 1gm Ivpb (Pre-Docked)) 50 mls @ 100 mls/hr IVPB DAILY [facility] Last Admin: 06/23/16 09:30 Dose: 100 mls/hr Famotidine/Sodium Chloride (Pepcid 20 Mg Premixed Ivpb -) 50 mls @ 100 mls/hr IVPB Q48H [facility] Last Admin: 06/22/16 12:20 Dose: 100 mls/hr Insulin Aspart (Novolog Vial Sliding Scale -) 1 vial SQ ACHS [facility] PRN Reason: Protocol Last Admin: 06/23/16 11:41 Dose: Not Given Levothyroxine Sodium (Synthroid Injection -) 25 mcg IVPUSH AM [facility] Last Admin: 06/23/16 06:46 Dose: 25 mcg Morphine Sulfate (Morphine Injection -) 2 mg IVPUSH Q4H PRN PRN Reason: PAIN LEVEL 1-5 Last Admin: 06/21/16 21:11 Dose: 2 mg Morphine Sulfate (Morphine Injection -) 4 mg IVPUSH Q4H PRN PRN Reason: PAIN LEVEL 6-10 Last Admin: 06/22/16 12:20 Dose: 4 mg Sevelamer Carbonate (Renvela Powder Packet -) 0.8 gm PO TIDCM [facility] Last Admin: 06/23/16 09:07 Dose: Not Given Silver Sulfadiazine (Silvadene -) 1 applic TP BID [facility] Last Admin: 06/22/16 21:52 Dose: 1 applic Sodium Bicarbonate (Sodium Bicarbonate -) 650 mg PO BID [facility] Last Admin: 06/23/16 09:07 Dose: Not Given ASSESSMENT AND PLAN: s/p Acute Respiratory Failure Back/Shoulder Cellulitis/Abscess Septic vs Cardiogenic Shock Acute on Chronic Renal Failure Metabolic Acidosis Acute on Chronic LV Systolic Heart Failure Atrial Fibrillation COPD Hyponatremia Atelectasis improving - continue dobutamine/lasix - HD per renal - keep net negative fluid balance - s/p antibiotic course - O2 to keep SpO2 >90% - aspiration precautions - inhaled bronchodilators - enteral feeds - DVT/GI prophylaxis - continue ICU monitoring critical care time spent reviewing chart, evaluating patient and formulating plan 38 min
[2016-06-23] MEDS ORDERED: DOBUTAMINE 250 MG/D5W - 250 ML ONE ×2 (13:16→23:27)
[2016-06-23] MEDS: FUROSEMIDE 40 MG/4 ML INJECTABLE VIAL IVPUSH SCH (14:04)
[2016-06-23] MEDS: COLLAGENASE CLOSTRIDIUM HIST. 30 GRAMS TUBE TP SCH ×2 (14:07→23:20)
[2016-06-23] MEDS: SILVER SULFADIAZINE 1% TOP CREAM 50 GM JAR TP SCH ×2 (14:08→23:21)
[2016-06-23 14:19] LABS: HEP B SURFACE AB Non Reactive (.)
--- NOTE | 2016-06-23 15:17 | PN ---
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, Physician History of Present Illness: Pt seen and examined at bedside. He is now extubated. Pt is confused to place and time. - Current Medication List Current Medications: Active Medications Bacitracin (Bacitracin -) 1 applic TP BID [facility] Brimonidine Tartrate (Alphagan 0.2% -) 1 drop OU BID [facility] Last Admin: 06/23/16 09:31 Dose: 1 drop Chlorhexidine Gluconate (Peridex -) 15 ml MM BID [facility] Last Admin: 06/23/16 09:31 Dose: 15 ml Collagenase (Santyl -) 1 applic TP BID [facility] Last Admin: 06/23/16 14:07 Dose: 1 applic Furosemide (Lasix Injection -) 80 mg IVPUSH BIDLASIX [facility] Last Admin: 06/23/16 14:04 Dose: 80 mg Heparin Sodium (Porcine) (Heparin -) 5,000 unit SQ BID [facility] Last Admin: 06/23/16 09:40 Dose: 5,000 unit Dobutamine HCl 250,000 mcg/ (Sodium Chloride) 250 mls @ 31.98 mls/hr IV TITR [facility]; 5 MCG/KG/MIN PRN Reason: Protocol Last Admin: 06/23/16 06:49 Dose: 31.98 mls/hr Metronidazole (Flagyl 250mg Premixed Ivpb -) 50 mls @ 50 mls/hr IVPB Q8H-IV [facility] Last Admin: 06/23/16 14:02 Dose: 50 mls/hr Ceftriaxone Sodium (Rocephin 1gm Ivpb (Pre-Docked)) 50 mls @ 100 mls/hr IVPB DAILY [facility] Last Admin: 06/23/16 09:30 Dose: 100 mls/hr Famotidine/Sodium Chloride (Pepcid 20 Mg Premixed Ivpb -) 50 mls @ 100 mls/hr IVPB Q48H [facility] Last Admin: 06/22/16 12:20 Dose: 100 mls/hr Insulin Aspart (Novolog Vial Sliding Scale -) 1 vial SQ ACHS [facility] PRN Reason: Protocol Last Admin: 06/23/16 11:41 Dose: Not Given Levothyroxine Sodium (Synthroid Injection -) 25 mcg IVPUSH AM [facility] Last Admin: 06/23/16 06:46 Dose: 25 mcg Morphine Sulfate (Morphine Injection -) 2 mg IVPUSH Q4H PRN PRN Reason: PAIN LEVEL 1-5 Last Admin: 06/21/16 21:11 Dose: 2 mg Morphine Sulfate (Morphine Injection -) 4 mg IVPUSH Q4H PRN PRN Reason: PAIN LEVEL 6-10 Last Admin: 06/22/16 12:20 Dose: 4 mg Sevelamer Carbonate (Renvela Powder Packet -) 0.8 gm PO TIDCM [facility] Last Admin: 06/23/16 14:07 Dose: Not Given Silver Sulfadiazine (Silvadene -) 1 applic TP BID [facility] Last Admin: 06/23/16 14:08 Dose: 1 applic Sodium Bicarbonate (Sodium Bicarbonate -) 650 mg PO BID [facility] Last Admin: 06/23/16 14:16 Dose: 650 mg - Objective Vital Signs: Vital Signs Temperature 97.9 F 06/23/16 14:00 Pulse Rate 107 H 06/23/16 14:00 Respiratory Rate 22 06/23/16 14:00 Blood Pressure 134/68 06/23/16 14:00 O2 Sat by Pulse Oximetry (%) 94 L 06/23/16 09:57 Constitutional: Yes: Calm Eyes: Yes: Conjunctiva Clear HENT: Yes: Atraumatic Cardiovascular: Yes: S1, S2 Respiratory: Yes: On Nasal O2, Rhonchi Gastrointestinal: Yes: Soft Genitourinary: Yes: López Present Musculoskeletal: Yes: Muscle Weakness Edema: Yes Neurological: Yes: Confusion Labs: CBC, BMP 06/23/16 05:55 06/23/16 05:55 INR, PTT INR 1.85 (0.82-1.09) H 06/11/16 05:15 Fibrinogen 405.0 mg/dL (238-498) 06/10/16 04:45 Problem List - Problems (1) Acute hyperkalemia Code(s): E87.5 - HYPERKALEMIA (2) Hyponatremia Code(s): E87.1 - HYPO-OSMOLALITY AND HYPONATREMIA (3) Hypotension Code(s): I95.9 - HYPOTENSION, UNSPECIFIED Qualifiers: Hypotension type: other hypotension type Qualified Code(s): I95.89 - Other hypotension (4) Acute on chronic renal failure Code(s): N17.9 - ACUTE KIDNEY FAILURE, UNSPECIFIED N18.9 - CHRONIC KIDNEY DISEASE, UNSPECIFIED (5) Anemia Code(s): D64.9 - ANEMIA, UNSPECIFIED Qualifiers: Other causes of anemia: chronic disease, kidney (6) COPD (chronic obstructive pulmonary disease) Code(s): J44.9 - CHRONIC OBSTRUCTIVE PULMONARY DISEASE, UNSPECIFIED (7) Congestive heart failure (CHF) Code(s): I50.9 - HEART FAILURE, UNSPECIFIED Qualifiers: Congestive heart failure type: systolic Congestive heart failure chronicity: chronic Qualified Code(s): I50.22 - Chronic systolic (congestive ) heart failure (8) DMII (diabetes mellitus, type 2) Code(s): E11.9 - TYPE 2 DIABETES MELLITUS WITHOUT COMPLICATIONS Qualifiers: Diabetes mellitus complication detail: with other kidney complication (9) CKD (chronic kidney disease) Code(s): N18.9 - CHRONIC KIDNEY DISEASE, UNSPECIFIED Assessment/Plan Current Medications Generic Name Dose Route Start Last Admin Trade Name Freq PRN Reason Stop Dose Admin Bacitracin 1 applic 06/23/16 22:00 Bacitracin - TP BID [facility] Brimonidine Tartrate 1 drop 06/10/16 10:00 06/23/16 09:31 Alphagan 0.2% - OU 1 drop BID [facility] Administration Chlorhexidine Gluconate 15 ml 06/17/16 23:30 06/23/16 09:31 Peridex - MM 15 ml BID [facility] Administration Collagenase 1 applic 06/13/16 22:00 06/23/16 14:07 Santyl - TP 1 applic BID [facility] Administration Furosemide 80 mg 06/23/16 14:00 06/23/16 14:04 Lasix Injection - IVPUSH 80 mg BIDLASIX [facility] Administration Heparin Sodium (Porcine) 5,000 unit 06/20/16 22:00 06/23/16 09:40 Heparin - SQ 5,000 unit BID [facility] Administration Dobutamine HCl 250,000 mcg/ 250 mls @ 31.98 mls/hr 06/15/16 11:00 06/23/16 06: 49 Sodium Chloride IV 31.98 mls/hr TITR [facility] Administration Protocol 5 MCG/KG/MIN Metronidazole 50 mls @ 50 mls/hr 06/20/16 10:00 06/23/16 14:02 Flagyl 250mg Premixed Ivpb - IVPB 50 mls/hr Q8H-IV [facility] Administration Ceftriaxone Sodium 50 mls @ 100 mls/hr 06/21/16 10:00 06/23/16 09:30 Rocephin 1gm Ivpb (Pre-Docked) IVPB 100 mls/hr DAILY [facility] Administration Famotidine/Sodium Chloride 50 mls @ 100 mls/hr 06/22/16 10:45 06/22/16 12:20 Pepcid 20 Mg Premixed Ivpb - IVPB 100 mls/hr Q48H [facility] Administration Insulin Aspart 1 vial 06/10/16 16:30 06/23/16 11:41 Novolog Vial Sliding Scale - SQ Not Given ACHS [facility] Protocol Levothyroxine Sodium 25 mcg 06/10/16 07:00 06/23/16 06:46 Synthroid Injection - IVPUSH 25 mcg AM [facility] Administration Morphine Sulfate 2 mg 06/21/16 12:38 06/21/16 21:11 Morphine Injection - IVPUSH 2 mg Q4H PRN Administration PAIN LEVEL 1-5 Morphine Sulfate 4 mg 06/21/16 12:25 06/22/16 12:20 Morphine Injection - IVPUSH 4 mg Q4H PRN Administration PAIN LEVEL 6-10 Sevelamer Carbonate 0.8 gm 06/15/16 12:50 06/23/16 14:07 Renvela Powder Packet - PO Not Given TIDCM [facility] Silver Sulfadiazine 1 applic 06/17/16 22:00 06/23/16 14:08 Silvadene - TP 1 applic BID [facility] Administration Sodium Bicarbonate 650 mg 06/12/16 22:00 06/23/16 14:16 Sodium Bicarbonate - PO 650 mg BID [facility] Administration Impression 1. CASE on CKD 2. sepsis with shock 3. cellulitis/abscess of back 4. CHF acute 5. hypothyroidism 6. hyperlipidemia 7. COPD 8. htn 9. a-fib 10. hyponatremia - isoosmolar 11. acute respiratory failure requiring intubation Plan - will arrange for HD tomorrow, will evaluate in ICU - pts mental status is not at baseline - wound continue lasix - discussed with ICU team - speech and swallow eval Dr Martinez
--- NOTE | 2016-06-23 21:03 | PN ---
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, Physician Chief Complaint: AWAKE ANSWERS YES/NO QUESTIONS - Current Medication List Current Medications: Active Medications Bacitracin (Bacitracin -) 1 applic TP BID [facility] Brimonidine Tartrate (Alphagan 0.2% -) 1 drop OU BID [facility] Last Admin: 06/23/16 09:31 Dose: 1 drop Chlorhexidine Gluconate (Peridex -) 15 ml MM BID [facility] Last Admin: 06/23/16 09:31 Dose: 15 ml Collagenase (Santyl -) 1 applic TP BID [facility] Last Admin: 06/23/16 14:07 Dose: 1 applic Furosemide (Lasix Injection -) 80 mg IVPUSH BIDLASIX [facility] Last Admin: 06/23/16 14:04 Dose: 80 mg Heparin Sodium (Porcine) (Heparin -) 5,000 unit SQ BID [facility] Last Admin: 06/23/16 09:40 Dose: 5,000 unit Dobutamine HCl 250,000 mcg/ (Sodium Chloride) 250 mls @ 31.98 mls/hr IV TITR [facility]; 5 MCG/KG/MIN PRN Reason: Protocol Last Admin: 06/23/16 15:48 Dose: 31.98 mls/hr Metronidazole (Flagyl 250mg Premixed Ivpb -) 50 mls @ 50 mls/hr IVPB Q8H-IV [facility] Last Admin: 06/23/16 18:28 Dose: 50 mls/hr Ceftriaxone Sodium (Rocephin 1gm Ivpb (Pre-Docked)) 50 mls @ 100 mls/hr IVPB DAILY [facility] Last Admin: 06/23/16 09:30 Dose: 100 mls/hr Famotidine/Sodium Chloride (Pepcid 20 Mg Premixed Ivpb -) 50 mls @ 100 mls/hr IVPB Q48H [facility] Last Admin: 06/22/16 12:20 Dose: 100 mls/hr Insulin Aspart (Novolog Vial Sliding Scale -) 1 vial SQ ACHS [facility] PRN Reason: Protocol Last Admin: 06/23/16 18:29 Dose: Not Given Levothyroxine Sodium (Synthroid Injection -) 25 mcg IVPUSH AM [facility] Last Admin: 06/23/16 06:46 Dose: 25 mcg Morphine Sulfate (Morphine Injection -) 2 mg IVPUSH Q4H PRN PRN Reason: PAIN LEVEL 1-5 Last Admin: 06/21/16 21:11 Dose: 2 mg Morphine Sulfate (Morphine Injection -) 4 mg IVPUSH Q4H PRN PRN Reason: PAIN LEVEL 6-10 Last Admin: 06/22/16 12:20 Dose: 4 mg Sevelamer Carbonate (Renvela Powder Packet -) 0.8 gm PO TIDCM [facility] Last Admin: 06/23/16 18:31 Dose: 0.8 gm Silver Sulfadiazine (Silvadene -) 1 applic TP BID [facility] Last Admin: 06/23/16 14:08 Dose: 1 applic Sodium Bicarbonate (Sodium Bicarbonate -) 650 mg PO BID [facility] Last Admin: 06/23/16 14:16 Dose: 650 mg - Objective Vital Signs: Vital Signs Temperature 97.2 F L 06/23/16 20:00 Pulse Rate 104 H 06/23/16 20:00 Respiratory Rate 26 H 06/23/16 20:00 Blood Pressure 112/69 06/23/16 20:00 O2 Sat by Pulse Oximetry (%) 94 L 06/23/16 09:57 Neck: Yes: WNL Cardiovascular: Yes: WNL Respiratory: Yes: WNL Gastrointestinal: Yes: WNL Edema: Yes Labs: CBC, BMP 06/23/16 05:55 06/23/16 05:55 INR, PTT INR 1.85 (0.82-1.09) H 06/11/16 05:15 Fibrinogen 405.0 mg/dL (238-498) 06/10/16 04:45 Problem List - Problems (1) Anemia Code(s): D64.9 - ANEMIA, UNSPECIFIED Qualifiers: Other causes of anemia: chronic disease, kidney Assessment/Plan (1) CKD (chronic kidney disease) Code(s): N18.9 - CHRONIC KIDNEY DISEASE, UNSPECIFIED (2) Hyponatremia Code(s): E87.1 - HYPO-OSMOLALITY AND HYPONATREMIA (3) Hypotension Code(s): I95.9 - HYPOTENSION, UNSPECIFIED Qualifiers: Hypotension type: other hypotension type Qualified Code(s): I95.89 - Other hypotension (4) Lung consolidation Code(s): J18.1 - LOBAR PNEUMONIA, UNSPECIFIED ORGANISM (5) Anemia Code(s): D64.9 - ANEMIA, UNSPECIFIED Qualifiers: Other causes of anemia: chronic disease, kidney (6) Atrial flutter Code(s): I48.92 - UNSPECIFIED ATRIAL FLUTTER (7) Bacteremia Code(s): R78.81 - BACTEREMIA (8) COPD (chronic obstructive pulmonary disease) Code(s): J44.9 - CHRONIC OBSTRUCTIVE PULMONARY DISEASE, UNSPECIFIED (9) DMII (diabetes mellitus, type 2) Code(s): E11.9 - TYPE 2 DIABETES MELLITUS WITHOUT COMPLICATIONS Qualifiers: Diabetes mellitus complication detail: with other kidney complication (10) Dyspnea Code(s): R06.00 - DYSPNEA, UNSPECIFIED Qualifiers: Dyspnea type: shortness of breath Qualified Code(s): R06.02 - Shortness of breath (11) Pressure ulcer of lower extremity, stage 1 Code(s): L89.891 - PRESSURE ULCER OF OTHER SITE, STAGE 1 (12) Sepsis Code(s): A41.9 - SEPSIS, UNSPECIFIED ORGANISM Qualifiers: Sepsis type: sepsis due to unspecified organism Qualified Code(s): A41.9 - Sepsis, unspecified organism (13) Weakness of both lower limbs Code(s): M62.81 - MUSCLE WEAKNESS (GENERALIZED) (14) Wound of left shoulder Code(s): S41.002A - UNSPECIFIED OPEN WOUND OF LEFT SHOULDER, INITIAL ENCOUNTER Qualifiers: Encounter type: subsequent encounter Qualified Code(s): S41.002D - Unspecified open wound of left shoulder, subsequent encounter (15) Acute respiratory distress Code(s): R06.00 - DYSPNEA, UNSPECIFIED Assessment/Plan S/P INTUBATED ON VENT SUPPORT SEPSIS ON ABX HGB 7.8 S/P pRBC SURGERY EVAL FOR LEG EDEMA AND LEFT BACK WOUND DVT PROPHYLAXIS ST ON CASE -> IMPAIRED [employer] FM
[2016-06-23] MEDS: BACITRACIN 30 GM TUBE TOPICAL OINTMENT TP SCH (23:21)
[2016-06-24] MEDS: METRONIDAZOLE PREMIXED IVPB 50 ML IVPB SCH ×3 (02:27→19:38)
[2016-06-24 06:40] LABS: BASOPHIL 0.3 % (0-2.0); EOSINOPHIL 0.6 % (0-4.5); MCH 28.5 pg (25.7-33.7); MCHC 32.9 g/dl (32.0-35.9); MEAN CELL VOLUME 86.7 fl (80-96); NEUTROPHILS 90.3 % (42.8-82.8); PLATELET COUNT 80 K/MM3 (134-434); RDW 17.2 % (11.9-15.9); WHITE BLOOD COUNT 9.1 K/mm3 (4.0-10.0)
[2016-06-24] MEDS: INSULIN SLIDING SCALE (NOVOLOG) 1 VIAL SQ SCH ×4 (06:54→22:36)
[2016-06-24] MEDS: LEVOTHYROXINE SODIUM 100 MCG VIAL IVPUSH SCH (06:57)
[2016-06-24] MEDS: FUROSEMIDE 40 MG/4 ML INJECTABLE VIAL IVPUSH SCH ×2 (06:57→15:15)
[2016-06-24 07:05] LABS: ALBUMIN 1.6 g/dl (3.4-5.0); CALCIUM 7.6 mg/dL (8.5-10.1); MAGNESIUM 2.1 mg/dL (1.8-2.4)
[2016-06-24 07:09] LABS: BILIRUBIN,TOTAL 1.2 mg/dL (0.2-1.0); CREATININE 3.9 mg/dL (0.7-1.3); PHOSPHOROUS 5.3 mg/dL (2.5-4.9); TOT PROT 5.3 g/dl (6.4-8.2)
[2016-06-24] MEDS ORDERED: PT OWN MED DRAWER 7, Y5N ONE ×2 (07:56→19:36)
[2016-06-24] MEDS ORDERED: DOBUTAMINE 250 MG/D5W - 250 ML ONE ×2 (08:01)
[2016-06-24] MEDS: DOBUTAMINE HCL 250,000 MCG in SODIUM CHLORIDE 230 ML IV SCH ×2 (08:03→16:21)
[2016-06-24] MEDS: SEVELAMER CARBONATE 0.8 GM POWDER PACKET PO SCH ×3 (08:06→19:32)
[2016-06-24] MEDS: BRIMONIDINE TARTRATE 0.2% OPHTHALMIC 5 ML BOTTLE OU SCH ×2 (09:36→22:38)
[2016-06-24] MEDS: COLLAGENASE CLOSTRIDIUM HIST. 30 GRAMS TUBE TP SCH ×2 (09:36→22:37)
[2016-06-24] MEDS: HEPARIN NA (PORCINE) 5,000 UNITS/ML 1ML VIAL SQ SCH ×2 (09:36→22:37)
[2016-06-24] MEDS: CEFTRIAXONE 50 ML IVPB SCH (09:37)
[2016-06-24] MEDS: SODIUM BICARBONATE 650 MG TABLET PO SCH ×2 (09:37→22:37)
[2016-06-24] MEDS: SILVER SULFADIAZINE 1% TOP CREAM 50 GM JAR TP SCH ×2 (09:39→22:39)
[2016-06-24] MEDS: BACITRACIN 30 GM TUBE TOPICAL OINTMENT TP SCH ×2 (09:41→22:38)
--- NOTE | 2016-06-24 11:10 | PN ---
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 (short form) - Note 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: awake on bipap alert Vital Signs Period Temp Pulse Resp BP Sys/Hubbard Pulse Ox Last 24 Hr 96.2 F-98.3 F 102-107 18-29 105-134/52-74 96-100 cor-rrr lungs decreased bs at bases abd soft,nt ext legs wrapped CBC, BMP 06/24/16 05:20 06/24/16 05:20 Laboratory Tests 06/23/16 05:55 Random Vancomycin 20.361 a/p Microbiology 06/18/16 17:00 Blood Culture - Final Blood - Picc Line NO GROWTH AFTER 5 DAYS INCUBATION 06/18/16 15:15 Blood Culture - Final Blood - Peripheral Venous NO GROWTH AFTER 5 DAYS INCUBATION 06/18/16 15:35 Blood Culture - Final Blood - Peripheral Venous NO GROWTH AFTER 5 DAYS INCUBATION Current Medications Bacitracin (Bacitracin -) 1 applic TP BID [facility] Last Admin: 06/24/16 09:41 Dose: 1 applic Brimonidine Tartrate (Alphagan 0.2% -) 1 drop OU BID [facility] Last Admin: 06/24/16 09:36 Dose: 1 drop Chlorhexidine Gluconate (Peridex -) 15 ml MM BID [facility] Last Admin: 06/23/16 23:19 Dose: 15 ml Collagenase (Santyl -) 1 applic TP BID [facility] Last Admin: 06/24/16 09:36 Dose: 1 applic Furosemide (Lasix Injection -) 80 mg IVPUSH BIDLASIX [facility] Last Admin: 06/24/16 06:57 Dose: 80 mg Heparin Sodium (Porcine) (Heparin -) 5,000 unit SQ BID [facility] Last Admin: 06/24/16 09:36 Dose: 5,000 unit Dobutamine HCl 250,000 mcg/ (Sodium Chloride) 250 mls @ 31.98 mls/hr IV TITR [facility]; 5 MCG/KG/MIN PRN Reason: Protocol Last Admin: 06/24/16 08:03 Dose: 31.98 mls/hr Metronidazole (Flagyl 250mg Premixed Ivpb -) 50 mls @ 50 mls/hr IVPB Q8H-IV [facility] Last Admin: 06/24/16 09:41 Dose: 50 mls/hr Ceftriaxone Sodium (Rocephin 1gm Ivpb (Pre-Docked)) 50 mls @ 100 mls/hr IVPB DAILY [facility] Last Admin: 06/24/16 09:37 Dose: 100 mls/hr Famotidine/Sodium Chloride (Pepcid 20 Mg Premixed Ivpb -) 50 mls @ 100 mls/hr IVPB Q48H [facility] Last Admin: 06/22/16 12:20 Dose: 100 mls/hr Insulin Aspart (Novolog Vial Sliding Scale -) 1 vial SQ ACHS [facility] PRN Reason: Protocol Last Admin: 06/24/16 06:54 Dose: Not Given Levothyroxine Sodium (Synthroid Injection -) 25 mcg IVPUSH AM [facility] Last Admin: 06/24/16 06:57 Dose: 25 mcg Morphine Sulfate (Morphine Injection -) 2 mg IVPUSH Q4H PRN PRN Reason: PAIN LEVEL 1-5 Last Admin: 06/21/16 21:11 Dose: 2 mg Morphine Sulfate (Morphine Injection -) 4 mg IVPUSH Q4H PRN PRN Reason: PAIN LEVEL 6-10 Last Admin: 06/22/16 12:20 Dose: 4 mg Sevelamer Carbonate (Renvela Powder Packet -) 0.8 gm PO TIDCM [facility] Last Admin: 06/24/16 08:06 Dose: 0.8 gm Silver Sulfadiazine (Silvadene -) 1 applic TP BID [facility] Last Admin: 06/24/16 09:39 Dose: 1 applic Sodium Bicarbonate (Sodium Bicarbonate -) 650 mg PO BID [facility] Last Admin: 06/24/16 09:37 Dose: 650 mg cxray with right lung atelectasis a/p Day #5 antibiotics vancomycin/ceftriaxone/flagyl improved repeat vancomycin level in am lung atelectasis- chest PT, pulmonary f/u abdiaziz cardiomyopathy
[2016-06-24] MEDS: FAMOTIDINE 20 MG/50 ML IVPB 50 ML IVPB SCH (11:30)
--- NOTE | 2016-06-24 12:45 | PN ---
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 NPO, tolerating meds in applesauce. Case reviewed with nursing and RD. Pt still at increased risk of aspiration with increased RR, with risk of inhaling food/aspiration due to impaired coordination of deglutition with respiration. Continue NPO except for trial of Magic cup, which is nutritionally dense, with less risk than entire pureed tray. Feed when least SOB..
--- NOTE | 2016-06-24 12:59 | PN ---
Teaching Attending Note Name of Resident: Patricio Andrade ATTENDING PHYSICIAN STATEMENT I saw and evaluated the patient. I reviewed the resident's note and discussed the case with the resident. I agree with the resident's findings and plan as documented. SUBJECTIVE: Pt seen and examined in the ICU. Back on BiPAP. Remains oliguric on dobutamine and lasix gtts. OBJECTIVE: Last Vital Signs Temp Pulse Resp BP Pulse Ox 97.6 F 103 H 25 H 107/69 96 06/24/16 12:00 06/24/16 12:00 06/24/16 12:00 06/24/16 12:00 06/24/16 10:59 Intake & Output 06/21/16 06/22/16 06/23/16 06/24/16 23:59 23:59 23:59 23:59 Intake Total 2284.4 554 1224 434 Output Total 425 375 80 60 Balance 1859.4 179 1144 374 Weight 228 lb 13.437 oz 227 lb 13.437 oz 224 lb 5 oz 225 lb 15.581 oz Gen: confused, tachypneic on BiPAP Heart: tachycardic, regular Lung: scattered rhonchi Abd: soft, nontender Ext: less edema CBC, BMP 06/24/16 05:20 06/24/16 05:20 Active Medications Acetylcysteine (Mucomyst 20 Oral / Inh Use Only*) 800 mg NEB QIDR [facility] Albuterol Sulfate (Ventolin 0.083% Nebulizer Soln -) 1 amp NEB QIDR [facility] Bacitracin (Bacitracin -) 1 applic TP BID [facility] Last Admin: 06/24/16 09:41 Dose: 1 applic Brimonidine Tartrate (Alphagan 0.2% -) 1 drop OU BID [facility] Last Admin: 06/24/16 09:36 Dose: 1 drop Chlorhexidine Gluconate (Peridex -) 15 ml MM BID [facility] Last Admin: 06/23/16 23:19 Dose: 15 ml Collagenase (Santyl -) 1 applic TP BID [facility] Last Admin: 06/24/16 09:36 Dose: 1 applic Furosemide (Lasix Injection -) 80 mg IVPUSH BIDLASIX [facility] Last Admin: 06/24/16 06:57 Dose: 80 mg Heparin Sodium (Porcine) (Heparin -) 5,000 unit SQ BID [facility] Last Admin: 06/24/16 09:36 Dose: 5,000 unit Dobutamine HCl 250,000 mcg/ (Sodium Chloride) 250 mls @ 31.98 mls/hr IV TITR [facility]; 5 MCG/KG/MIN PRN Reason: Protocol Last Admin: 06/24/16 08:03 Dose: 31.98 mls/hr Metronidazole (Flagyl 250mg Premixed Ivpb -) 50 mls @ 50 mls/hr IVPB Q8H-IV [facility] Last Admin: 06/24/16 09:41 Dose: 50 mls/hr Ceftriaxone Sodium (Rocephin 1gm Ivpb (Pre-Docked)) 50 mls @ 100 mls/hr IVPB DAILY [facility] Last Admin: 06/24/16 09:37 Dose: 100 mls/hr Famotidine/Sodium Chloride (Pepcid 20 Mg Premixed Ivpb -) 50 mls @ 100 mls/hr IVPB Q48H [facility] Last Admin: 06/22/16 12:20 Dose: 100 mls/hr Insulin Aspart (Novolog Vial Sliding Scale -) 1 vial SQ ACHS [facility] PRN Reason: Protocol Last Admin: 06/24/16 06:54 Dose: Not Given Levothyroxine Sodium (Synthroid Injection -) 25 mcg IVPUSH AM [facility] Last Admin: 06/24/16 06:57 Dose: 25 mcg Sevelamer Carbonate (Renvela Powder Packet -) 0.8 gm PO TIDCM [facility] Last Admin: 06/24/16 08:06 Dose: 0.8 gm Silver Sulfadiazine (Silvadene -) 1 applic TP BID [facility] Last Admin: 06/24/16 09:39 Dose: 1 applic Sodium Bicarbonate (Sodium Bicarbonate -) 650 mg PO BID [facility] Last Admin: 06/24/16 09:37 Dose: 650 mg ASSESSMENT AND PLAN: s/p Acute Respiratory Failure Back/Shoulder Cellulitis/Abscess Septic vs Cardiogenic Shock Acute on Chronic Renal Failure Metabolic Acidosis Acute on Chronic LV Systolic Heart Failure Atrial Fibrillation COPD Hyponatremia Atelectasis improving - continue dobutamine/lasix - HD per renal - keep net negative fluid balance - likely will need permacath placement - s/p antibiotic course - O2 to keep SpO2 >90% - aspiration precautions - inhaled bronchodilators - NPO while on BiPAP - DVT/GI prophylaxis - continue ICU monitoring critical care time spent reviewing chart, evaluating patient and formulating plan 36 min
--- NOTE | 2016-06-24 14:03 | PN ---
Physical Exam: SUBJECTIVE: Patient seen and examined Patient on bipap whole night. patient desaturate on ventuary and oxygen tent. Patient is more alert than yesterday Patient will get HD today urine output 80 cxr shows right side collapsed lung OBJECTIVE: Vital Signs Period Temp Pulse Resp BP Sys/Hubbard Pulse Ox Last 24 Hr 96.2 F-97.7 F 102-105 18-29 105-118/52-74 96-100 GENERAL: The patient is awake, alert, disorented HEAD: Normal with no signs of trauma. EYES: Pupils equal, round and reactive to light, NECK no lymphadenopathy LUNGS:b/l air entry present, diffuse ronchi, no wheez, pick line cath in situ, dialysis cath in situ. HEART: s1s2 normal, ABDOMEN: Soft, nontender, not distended, normoactive bowel sounds, no guarding, no rebound, no masses. scrotal and penile swelling present UPPER EXTREMITIES: 2+ pulses, warm, well-perfused. No cyanosis. No clubbing. Cap refill <2 seconds. . LOWER EXTREMITIES: multiple ulcers resent on b/l lower limb, pitting edema decreased Laboratory Results - last 24 hr 06/20/16 06/21/16 06/21/16 15:00 05:38 17:59 WBC RBC Hgb Hct MCV MCHC RDW Plt Count MPV Neutrophils % Lymphocytes % Monocytes % Eosinophils % Basophils % Sodium Potassium Chloride Carbon Dioxide Anion Gap BUN Creatinine Creat Clearance w eGFR POC Glucometer 144.28512 169.05763 Random Glucose Calcium Phosphorus Magnesium Total Bilirubin AST ALT Alkaline Phosphatase Total Protein Albumin Hepatitis A Ab Total Negative Hep Bs Antigen Negative Hep Bs Antibody Non reactive Hep B Core Total Ab Negative Hepatitis C Antibody <0.1 06/21/16 06/22/16 06/22/16 21:15 12:47 17:32 WBC RBC Hgb Hct MCV MCHC RDW Plt Count MPV Neutrophils % Lymphocytes % Monocytes % Eosinophils % Basophils % Sodium Potassium Chloride Carbon Dioxide Anion Gap BUN Creatinine Creat Clearance w eGFR POC Glucometer 175.35541 130.23957 184.52864 Random Glucose Calcium Phosphorus Magnesium Total Bilirubin AST ALT Alkaline Phosphatase Total Protein Albumin Hepatitis A Ab Total Hep Bs Antigen Hep Bs Antibody Hep B Core Total Ab Hepatitis C Antibody 06/22/16 06/23/16 06/23/16 21:21 06:03 11:29 WBC RBC Hgb Hct MCV MCHC RDW Plt Count MPV Neutrophils % Lymphocytes % Monocytes % Eosinophils % Basophils % Sodium Potassium Chloride Carbon Dioxide Anion Gap BUN Creatinine Creat Clearance w eGFR POC Glucometer 131.69474 129.71919 130.68847 Random Glucose Calcium Phosphorus Magnesium Total Bilirubin AST ALT Alkaline Phosphatase Total Protein Albumin Hepatitis A Ab Total Hep Bs Antigen Hep Bs Antibody Hep B Core Total Ab Hepatitis C Antibody 06/23/16 06/23/16 06/24/16 18:22 23:14 05:20 WBC 9.1 RBC 2.74 L Hgb 7.8 L Hct 23.7 L MCV 86.7 MCHC 32.9 RDW 17.2 H Plt Count 80 L MPV 8.0 Neutrophils % 90.3 H Lymphocytes % 2.5 L D Monocytes % 6.3 Eosinophils % 0.6 D Basophils % 0.3 Sodium Potassium Chloride Carbon Dioxide Anion Gap BUN Creatinine Creat Clearance w eGFR POC Glucometer 115.52510 132.22938 Random Glucose Calcium Phosphorus Magnesium Total Bilirubin AST ALT Alkaline Phosphatase Total Protein Albumin Hepatitis A Ab Total Hep Bs Antigen Hep Bs Antibody Hep B Core Total Ab Hepatitis C Antibody 06/24/16 06/24/16 06/24/16 05:20 06:31 12:53 WBC RBC Hgb Hct MCV MCHC RDW Plt Count MPV Neutrophils % Lymphocytes % Monocytes % Eosinophils % Basophils % Sodium 140 Potassium 3.9 Chloride 101 Carbon Dioxide 24 Anion Gap 15 BUN 76 H Creatinine 3.9 H Creat Clearance w eGFR 15.11 POC Glucometer 123.61238 128.10446 Random Glucose 77 Calcium 7.6 L Phosphorus 5.3 H Magnesium 2.1 Total Bilirubin 1.2 H AST 18 ALT 12 Alkaline Phosphatase 78 Total Protein 5.3 L Albumin 1.6 L Hepatitis A Ab Total Hep Bs Antigen Hep Bs Antibody Hep B Core Total Ab Hepatitis C Antibody Active Medications Generic Name Dose Route Start Last Admin Trade Name Freq PRN Reason Stop Dose Admin Acetylcysteine 800 mg 06/24/16 12:00 Mucomyst 20 Oral / Inh Use Only* NEB QIDR SISI Albuterol Sulfate 1 amp 06/24/16 12:00 Ventolin 0.083% Nebulizer Soln - NEB QIDR SISI Bacitracin 1 applic 06/23/16 22:00 06/24/16 09:41 Bacitracin - TP 1 applic BID SISI Administration Brimonidine Tartrate 1 drop 06/10/16 10:00 06/24/16 09:36 Alphagan 0.2% - OU 1 drop BID [facility]I Administration Chlorhexidine Gluconate 15 ml 06/17/16 23:30 06/23/16 23:19 Peridex - MM 15 ml BID [facility]I Administration Collagenase 1 applic 06/13/16 22:00 06/24/16 09:36 Santyl - TP 1 applic BID SISI Administration Furosemide 80 mg 06/23/16 14:00 06/24/16 06:57 Lasix Injection - IVPUSH 80 mg BIDLASIX SISI Administration Heparin Sodium (Porcine) 5,000 unit 06/20/16 22:00 06/24/16 09:36 Heparin - SQ 5,000 unit BID SISI Administration Dobutamine HCl 250,000 mcg/ 250 mls @ 31.98 mls/hr 06/15/16 11:00 06/24/16 08: 03 Sodium Chloride IV 31.98 mls/hr TITR SISI Administration Protocol 5 MCG/KG/MIN Metronidazole 50 mls @ 50 mls/hr 06/20/16 10:00 06/24/16 09:41 Flagyl 250mg Premixed Ivpb - IVPB 50 mls/hr Q8H-IV [facility]I Administration Ceftriaxone Sodium 50 mls @ 100 mls/hr 06/21/16 10:00 06/24/16 09:37 Rocephin 1gm Ivpb (Pre-Docked) IVPB 100 mls/hr DAILY [facility] Administration Famotidine/Sodium Chloride 50 mls @ 100 mls/hr 06/22/16 10:45 06/22/16 12:20 Pepcid 20 Mg Premixed Ivpb - IVPB 100 mls/hr Q48H [facility] Administration Insulin Aspart 1 vial 06/10/16 16:30 06/24/16 06:54 Novolog Vial Sliding Scale - SQ Not Given ACHS SISI Protocol Levothyroxine Sodium 25 mcg 06/10/16 07:00 06/24/16 06:57 Synthroid Injection - IVPUSH 25 mcg AM [facility] Administration Sevelamer Carbonate 0.8 gm 06/15/16 12:50 06/24/16 08:06 Renvela Powder Packet - PO 0.8 gm TIDCM [facility] Administration Silver Sulfadiazine 1 applic 06/17/16 22:00 06/24/16 09:39 Silvadene - TP 1 applic BID [facility]I Administration Sodium Bicarbonate 650 mg 06/12/16 22:00 06/24/16 09:37 Sodium Bicarbonate - PO 650 mg BID [facility]I Administration ASSESSMENT/PLAN: shock afebrile, wbc decreased to 9.1, patient could have septic shock with cardiogenic shock monitor vitals monitor intake/ output, try to keep negative balance, on dobutamin drip at 5, taper dobutamin, MAP > 65 sputum : mrsa + on ceftriaxone/ vanco/ flagyl as per id hyponatremia resolved na 140 abdiaziz on ckd HD as per nephrology avoid nephrotoxic drugs nephrology on case on lasix 80mg bid Acute respiratory failure with right side atelectasis keep right side up neb with mucomist and albuterol chest physiotherapy on bipap , keep spo2 .> 90 Hyperkalemia resolved k 3.9 on hd acute on chronic LV heart failure avoid Iv fluid daily weight maintain negative balance. lasix drip stopped and is on laisx 80 q12h monitor IO LV systolic function severly reduced, LV global hypokinesia cardiology on case lactic acidosis improved hypothermia on hector hugger prn h/o cad, A flutter/ fibrillation , chf, global hypokinesia alaquis on hold due to anemia, cardiology on case last echo on 06/10 ef 28 and global hypokinesia anemia hb 7.4 stable will give blood during hd h/o copd not active on albuterol DM on sliding scale follow bgm h/o hypothyroid on synthyroid fluid ; avoid IV fluid electrolyte ; repeat in am nutrition ; diet as per dietary recommendation dvt pro on sq heparin gi pro : on pepcid patient is full code. dispo : admit in icu Visit type - Emergency Visit Emergency Visit: Yes ED Registration Date: 06/10/16 Care time: The patient presented to the Emergency Department on the above date and was hospitalized for further evaluation of their emergent condition. - New Patient This patient is new to me today: No - Critical Care Critical Care patient: Yes Total Critical Care Time (in minutes): 45 Critical Care Statement: The care of this patient involved high complexity decision making to prevent further life threatening deterioration of the patient 's condition and/or to evalute & treat vital organ system(s) failure or risk of failure.
--- NOTE | 2016-06-24 14:40 | PN ---
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, Physician History of Present Illness: Pt seen and examined at bedside. He is awake and is now on Bipap. He remains oliguric. - Current Medication List Current Medications: Active Medications Acetylcysteine (Mucomyst 20 Oral / Inh Use Only*) 800 mg NEB QIDR SISI Albuterol Sulfate (Ventolin 0.083% Nebulizer Soln -) 1 amp NEB QIDR [facility]I Bacitracin (Bacitracin -) 1 applic TP BID [facility] Last Admin: 06/24/16 09:41 Dose: 1 applic Brimonidine Tartrate (Alphagan 0.2% -) 1 drop OU BID [facility] Last Admin: 06/24/16 09:36 Dose: 1 drop Chlorhexidine Gluconate (Peridex -) 15 ml MM BID [facility] Last Admin: 06/23/16 23:19 Dose: 15 ml Collagenase (Santyl -) 1 applic TP BID [facility] Last Admin: 06/24/16 09:36 Dose: 1 applic Furosemide (Lasix Injection -) 80 mg IVPUSH BIDLASIX [facility] Last Admin: 06/24/16 06:57 Dose: 80 mg Heparin Sodium (Porcine) (Heparin -) 5,000 unit SQ BID [facility] Last Admin: 06/24/16 09:36 Dose: 5,000 unit Dobutamine HCl 250,000 mcg/ (Sodium Chloride) 250 mls @ 31.98 mls/hr IV TITR [facility]I; 5 MCG/KG/MIN PRN Reason: Protocol Last Admin: 06/24/16 08:03 Dose: 31.98 mls/hr Metronidazole (Flagyl 250mg Premixed Ivpb -) 50 mls @ 50 mls/hr IVPB Q8H-IV [facility] Last Admin: 06/24/16 09:41 Dose: 50 mls/hr Ceftriaxone Sodium (Rocephin 1gm Ivpb (Pre-Docked)) 50 mls @ 100 mls/hr IVPB DAILY [facility] Last Admin: 06/24/16 09:37 Dose: 100 mls/hr Famotidine/Sodium Chloride (Pepcid 20 Mg Premixed Ivpb -) 50 mls @ 100 mls/hr IVPB Q48H [facility] Last Admin: 06/22/16 12:20 Dose: 100 mls/hr Insulin Aspart (Novolog Vial Sliding Scale -) 1 vial SQ ACHS [facility]I PRN Reason: Protocol Last Admin: 06/24/16 06:54 Dose: Not Given Levothyroxine Sodium (Synthroid Injection -) 25 mcg IVPUSH AM [facility] Last Admin: 06/24/16 06:57 Dose: 25 mcg Sevelamer Carbonate (Renvela Powder Packet -) 0.8 gm PO TIDCM [facility] Last Admin: 06/24/16 08:06 Dose: 0.8 gm Silver Sulfadiazine (Silvadene -) 1 applic TP BID [facility] Last Admin: 06/24/16 09:39 Dose: 1 applic Sodium Bicarbonate (Sodium Bicarbonate -) 650 mg PO BID [facility] Last Admin: 06/24/16 09:37 Dose: 650 mg - Objective Vital Signs: Vital Signs Temperature 97.6 F 06/24/16 12:00 Pulse Rate 103 H 06/24/16 12:00 Respiratory Rate 25 H 06/24/16 12:00 Blood Pressure 107/69 06/24/16 12:00 O2 Sat by Pulse Oximetry (%) 96 06/24/16 10:59 Constitutional: Yes: Calm Eyes: Yes: Conjunctiva Clear Cardiovascular: Yes: S1, S2 Respiratory: Yes: On BiPap Gastrointestinal: Yes: Soft Genitourinary: Yes: López Present, Oliguria Musculoskeletal: Yes: Muscle Weakness Edema: Yes Neurological: Yes: Oriented Psychiatric: Yes: Oriented Labs: CBC, BMP 06/24/16 05:20 06/24/16 05:20 INR, PTT INR 1.85 (0.82-1.09) H 06/11/16 05:15 Fibrinogen 405.0 mg/dL (238-498) 06/10/16 04:45 Problem List - Problems (1) Acute hyperkalemia Code(s): E87.5 - HYPERKALEMIA (2) Hyponatremia Code(s): E87.1 - HYPO-OSMOLALITY AND HYPONATREMIA (3) Hypotension Code(s): I95.9 - HYPOTENSION, UNSPECIFIED Qualifiers: Hypotension type: other hypotension type Qualified Code(s): I95.89 - Other hypotension (4) Acute on chronic renal failure Code(s): N17.9 - ACUTE KIDNEY FAILURE, UNSPECIFIED N18.9 - CHRONIC KIDNEY DISEASE, UNSPECIFIED (5) Anemia Code(s): D64.9 - ANEMIA, UNSPECIFIED Qualifiers: Other causes of anemia: chronic disease, kidney (6) COPD (chronic obstructive pulmonary disease) Code(s): J44.9 - CHRONIC OBSTRUCTIVE PULMONARY DISEASE, UNSPECIFIED (7) Congestive heart failure (CHF) Code(s): I50.9 - HEART FAILURE, UNSPECIFIED Qualifiers: Congestive heart failure type: systolic Congestive heart failure chronicity: chronic Qualified Code(s): I50.22 - Chronic systolic (congestive ) heart failure (8) DMII (diabetes mellitus, type 2) Code(s): E11.9 - TYPE 2 DIABETES MELLITUS WITHOUT COMPLICATIONS Qualifiers: Diabetes mellitus complication detail: with other kidney complication (9) CKD (chronic kidney disease) Code(s): N18.9 - CHRONIC KIDNEY DISEASE, UNSPECIFIED Assessment/Plan Current Medications Generic Name Dose Route Start Last Admin Trade Name Freq PRN Reason Stop Dose Admin Acetylcysteine 800 mg 06/24/16 12:00 Mucomyst 20 Oral / Inh Use Only* NEB QIDR SISI Albuterol Sulfate 1 amp 06/24/16 12:00 Ventolin 0.083% Nebulizer Soln - NEB QIDR SISI Bacitracin 1 applic 06/23/16 22:00 06/24/16 09:41 Bacitracin - TP 1 applic BID [facility]ISI Administration Brimonidine Tartrate 1 drop 06/10/16 10:00 06/24/16 09:36 Alphagan 0.2% - OU 1 drop BID [facility]I Administration Chlorhexidine Gluconate 15 ml 06/17/16 23:30 06/23/16 23:19 Peridex - MM 15 ml BID [facility]ISI Administration Collagenase 1 applic 06/13/16 22:00 06/24/16 09:36 Santyl - TP 1 applic BID [facility]I Administration Furosemide 80 mg 06/23/16 14:00 06/24/16 06:57 Lasix Injection - IVPUSH 80 mg BIDLASIX SISI Administration Heparin Sodium (Porcine) 5,000 unit 06/20/16 22:00 06/24/16 09:36 Heparin - SQ 5,000 unit BID [facility]ISI Administration Dobutamine HCl 250,000 mcg/ 250 mls @ 31.98 mls/hr 06/15/16 11:00 06/24/16 08: 03 Sodium Chloride IV 31.98 mls/hr TITR SISI Administration Protocol 5 MCG/KG/MIN Metronidazole 50 mls @ 50 mls/hr 06/20/16 10:00 06/24/16 09:41 Flagyl 250mg Premixed Ivpb - IVPB 50 mls/hr Q8H-IV [facility] Administration Ceftriaxone Sodium 50 mls @ 100 mls/hr 06/21/16 10:00 06/24/16 09:37 Rocephin 1gm Ivpb (Pre-Docked) IVPB 100 mls/hr DAILY [facility] Administration Famotidine/Sodium Chloride 50 mls @ 100 mls/hr 06/22/16 10:45 06/22/16 12:20 Pepcid 20 Mg Premixed Ivpb - IVPB 100 mls/hr Q48H [facility]I Administration Insulin Aspart 1 vial 06/10/16 16:30 06/24/16 06:54 Novolog Vial Sliding Scale - SQ Not Given ACHS SISI Protocol Levothyroxine Sodium 25 mcg 06/10/16 07:00 06/24/16 06:57 Synthroid Injection - IVPUSH 25 mcg AM [facility]I Administration Sevelamer Carbonate 0.8 gm 06/15/16 12:50 06/24/16 08:06 Renvela Powder Packet - PO 0.8 gm TIDCM [facility]I Administration Silver Sulfadiazine 1 applic 06/17/16 22:00 06/24/16 09:39 Silvadene - TP 1 applic BID [facility]I Administration Sodium Bicarbonate 650 mg 06/12/16 22:00 06/24/16 09:37 Sodium Bicarbonate - PO 650 mg BID SISI Administration Impression 1. CASE on CKD 2. sepsis with shock 3. cellulitis/abscess of back 4. CHF acute 5. hypothyroidism 6. hyperlipidemia 7. COPD 8. htn 9. a-fib 10. hyponatremia - isoosmolar 11. acute respiratory failure requiring intubation Plan - will dialyze today - can stop PO sodium bicarb - monitor BP closely - urine output remains poor - will need permacath once stable - speech and swallow eval Dr Martinez
[2016-06-24] MEDS: CHLORHEXIDINE GLUCONATE 0.12% 15ML CUP MM SCH (15:14)
[2016-06-24] MEDS ORDERED: EPOETIN ALFA 3,000 UNIT/1 ML ML IVPUSH ONE (18:45)
[2016-06-24] MEDS: ALBUMIN HUMAN 25% 12.5 GM/50 ML VIAL IVPB SCH ×4 (18:45→20:15)
[2016-06-24] MEDS ORDERED: morphine CARPU-JECT 2 MG/1 ML DISP.SYRIN ONE (19:36)
[2016-06-24] MEDS ORDERED: morphine CARPU-JECT 4 MG/1 ML DISP.SYRIN IVPUSH PRN (19:40)
[2016-06-24] MEDS ORDERED: morphine CARPU-JECT 2 MG/1 ML DISP.SYRIN IVPUSH PRN (19:44)
[2016-06-24] MEDS: ACETYLCYSTEINE 20% 200MG/ML 4 ML VIAL *FOR ORAL / INH USE ONLY NEB SCH (19:51)
[2016-06-24] MEDS: ALBUTEROL SO4 0.083% IH SOL 2.5 MG/3 ML VIAL.NEB. NEB SCH (19:51)
[2016-06-25] MEDS: ACETYLCYSTEINE 20% 200MG/ML 4 ML VIAL *FOR ORAL / INH USE ONLY NEB SCH ×4 (00:14→18:53)
[2016-06-25] MEDS: ALBUTEROL SO4 0.083% IH SOL 2.5 MG/3 ML VIAL.NEB. NEB SCH ×4 (00:15→18:53)
[2016-06-25] MEDS ORDERED: DOBUTAMINE 250 MG/D5W - 250 ML ONE ×2 (00:18→09:34)
[2016-06-25] MEDS: METRONIDAZOLE PREMIXED IVPB 50 ML IVPB SCH ×3 (01:50→18:55)
[2016-06-25 06:44] LABS: BASOPHIL 0.4 % (0-2.0); EOSINOPHIL 0.4 % (0-4.5); MCH 28.5 pg (25.7-33.7); MCHC 32.8 g/dl (32.0-35.9); MEAN CELL VOLUME 86.9 fl (80-96); MEAN PLT VOLUME 9.6 fl (7.5-11.1); NEUTROPHILS 85.5 % (42.8-82.8); PLATELET COUNT 99 K/MM3 (134-434); RDW 17.4 % (11.9-15.9); WHITE BLOOD COUNT 7.2 K/mm3 (4.0-10.0)
[2016-06-25] MEDS: INSULIN SLIDING SCALE (NOVOLOG) 1 VIAL SQ SCH ×4 (06:46→22:48)
[2016-06-25] MEDS: FUROSEMIDE 40 MG/4 ML INJECTABLE VIAL IVPUSH SCH ×2 (06:47→14:06)
[2016-06-25] MEDS ORDERED: PT OWN MED DRAWER 7, Y5N ONE ×2 (06:47→09:18)
[2016-06-25] MEDS: LEVOTHYROXINE SODIUM 100 MCG VIAL IVPUSH SCH (06:48)
[2016-06-25 07:12] LABS: ALBUMIN 1.7 g/dl (3.4-5.0); CALCIUM 8.1 mg/dL (8.5-10.1)
[2016-06-25 07:16] LABS: TOT PROT 5.4 g/dl (6.4-8.2)
--- NOTE | 2016-06-25 08:28 | PN ---
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, Physician Chief Complaint: AWAKE KEEPS PULLING OFF O2 MASK GOT UPSET - Current Medication List Current Medications: Active Medications Acetylcysteine (Mucomyst 20 Oral / Inh Use Only*) 800 mg NEB QIDR SISI Last Admin: 06/25/16 07:24 Dose: 800 mg Albuterol Sulfate (Ventolin 0.083% Nebulizer Soln -) 1 amp NEB QIDR SISI Last Admin: 06/25/16 07:24 Dose: 1 amp Bacitracin (Bacitracin -) 1 applic TP BID [facility]I Last Admin: 06/24/16 22:38 Dose: 1 applic Brimonidine Tartrate (Alphagan 0.2% -) 1 drop OU BID [facility] Last Admin: 06/24/16 22:38 Dose: 1 drop Collagenase (Santyl -) 1 applic TP BID [facility] Last Admin: 06/24/16 22:37 Dose: 1 applic Furosemide (Lasix Injection -) 80 mg IVPUSH BIDLASIX [facility] Last Admin: 06/25/16 06:47 Dose: 80 mg Heparin Sodium (Porcine) (Heparin -) 5,000 unit SQ BID [facility] Last Admin: 06/24/16 22:37 Dose: 5,000 unit Dobutamine HCl 250,000 mcg/ (Sodium Chloride) 250 mls @ 31.98 mls/hr IV TITR SISI; 5 MCG/KG/MIN PRN Reason: Protocol Last Admin: 06/24/16 16:21 Dose: 31.98 mls/hr Metronidazole (Flagyl 250mg Premixed Ivpb -) 50 mls @ 50 mls/hr IVPB Q8H-IV [facility] Last Admin: 06/25/16 01:50 Dose: 50 mls/hr Ceftriaxone Sodium (Rocephin 1gm Ivpb (Pre-Docked)) 50 mls @ 100 mls/hr IVPB DAILY [facility] Last Admin: 06/24/16 09:37 Dose: 100 mls/hr Famotidine/Sodium Chloride (Pepcid 20 Mg Premixed Ivpb -) 50 mls @ 100 mls/hr IVPB Q48H [facility] Last Admin: 06/24/16 11:30 Dose: 100 mls/hr Insulin Aspart (Novolog Vial Sliding Scale -) 1 vial SQ ACHS SISI PRN Reason: Protocol Last Admin: 06/25/16 06:46 Dose: Not Given Levothyroxine Sodium (Synthroid Injection -) 25 mcg IVPUSH AM [facility] Last Admin: 06/25/16 06:48 Dose: 25 mcg Morphine Sulfate (Morphine Injection -) 4 mg IVPUSH Q4H PRN PRN Reason: PAIN Last Admin: 06/25/16 01:49 Dose: 4 mg Morphine Sulfate (Morphine Injection -) 2 mg IVPUSH Q4H PRN PRN Reason: PAIN Last Admin: 06/24/16 19:35 Dose: 2 mg Sevelamer Carbonate (Renvela Powder Packet -) 0.8 gm PO TIDCM [facility] Last Admin: 06/24/16 19:32 Dose: 0.8 gm Silver Sulfadiazine (Silvadene -) 1 applic TP BID [facility] Last Admin: 06/24/16 22:39 Dose: 1 applic Sodium Bicarbonate (Sodium Bicarbonate -) 650 mg PO BID [facility] Last Admin: 06/24/16 22:37 Dose: 650 mg - Objective Vital Signs: Vital Signs Temperature 95 F L 06/25/16 06:00 Pulse Rate 101 H 06/25/16 06:00 Respiratory Rate 32 H 06/25/16 06:00 Blood Pressure 103/82 06/25/16 06:00 O2 Sat by Pulse Oximetry (%) 96 06/24/16 10:59 Constitutional: Yes: Calm Neck: Yes: WNL Cardiovascular: Yes: WNL Respiratory: Yes: WNL Gastrointestinal: Yes: WNL Edema: No Labs: CBC, BMP 06/25/16 05:25 06/25/16 05:25 INR, PTT INR 1.85 (0.82-1.09) H 06/11/16 05:15 Fibrinogen 405.0 mg/dL (238-498) 06/10/16 04:45 Problem List - Problems (1) Anemia Code(s): D64.9 - ANEMIA, UNSPECIFIED Qualifiers: Qualified Code(s): N18.9 - Chronic kidney disease, unspecified; D63.1 - Anemia in chronic kidney disease Assessment/Plan (1) CKD (chronic kidney disease) Code(s): N18.9 - CHRONIC KIDNEY DISEASE, UNSPECIFIED (2) Hyponatremia Code(s): E87.1 - HYPO-OSMOLALITY AND HYPONATREMIA (3) Hypotension Code(s): I95.9 - HYPOTENSION, UNSPECIFIED Qualifiers: Hypotension type: other hypotension type Qualified Code(s): I95.89 - Other hypotension (4) Lung consolidation Code(s): J18.1 - LOBAR PNEUMONIA, UNSPECIFIED ORGANISM (5) Anemia Code(s): D64.9 - ANEMIA, UNSPECIFIED Qualifiers: Other causes of anemia: chronic disease, kidney (6) Atrial flutter Code(s): I48.92 - UNSPECIFIED ATRIAL FLUTTER (7) Bacteremia Code(s): R78.81 - BACTEREMIA (8) COPD (chronic obstructive pulmonary disease) Code(s): J44.9 - CHRONIC OBSTRUCTIVE PULMONARY DISEASE, UNSPECIFIED (9) DMII (diabetes mellitus, type 2) Code(s): E11.9 - TYPE 2 DIABETES MELLITUS WITHOUT COMPLICATIONS Qualifiers: Diabetes mellitus complication detail: with other kidney complication (10) Dyspnea Code(s): R06.00 - DYSPNEA, UNSPECIFIED Qualifiers: Dyspnea type: shortness of breath Qualified Code(s): R06.02 - Shortness of breath (11) Pressure ulcer of lower extremity, stage 1 Code(s): L89.891 - PRESSURE ULCER OF OTHER SITE, STAGE 1 (12) Sepsis Code(s): A41.9 - SEPSIS, UNSPECIFIED ORGANISM Qualifiers: Sepsis type: sepsis due to unspecified organism Qualified Code(s): A41.9 - Sepsis, unspecified organism (13) Weakness of both lower limbs Code(s): M62.81 - MUSCLE WEAKNESS (GENERALIZED) (14) Wound of left shoulder Code(s): S41.002A - UNSPECIFIED OPEN WOUND OF LEFT SHOULDER, INITIAL ENCOUNTER Qualifiers: Encounter type: subsequent encounter Qualified Code(s): S41.002D - Unspecified open wound of left shoulder, subsequent encounter (15) Acute respiratory distress Code(s): R06.00 - DYSPNEA, UNSPECIFIED Assessment/Plan S/P INTUBATED ON VENT SUPPORT SEPSIS ON ABX HGB 8 STABLE S/P pRBC SURGERY EVAL FOR LEG EDEMA AND LEFT BACK WOUND DVT PROPHYLAXIS ST ON CASE -> IMPAIRED GOAL OF TREATMENT PALLIATIVE PROFESSIONAL NURSING ASSISTANT ROBBIE
--- NOTE | 2016-06-25 08:50 | PN ---
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, Physician Chief Complaint: ID Lethargic but responsive to verbal stimuli Vancomycin Metronidazole Ceftriaxone - Current Medication List Current Medications: Active Medications Acetylcysteine (Mucomyst 20 Oral / Inh Use Only*) 800 mg NEB QIDR [facility]I Last Admin: 06/25/16 07:24 Dose: 800 mg Albuterol Sulfate (Ventolin 0.083% Nebulizer Soln -) 1 amp NEB QIDR [facility]I Last Admin: 06/25/16 07:24 Dose: 1 amp Bacitracin (Bacitracin -) 1 applic TP BID [facility] Last Admin: 06/24/16 22:38 Dose: 1 applic Brimonidine Tartrate (Alphagan 0.2% -) 1 drop OU BID [facility] Last Admin: 06/24/16 22:38 Dose: 1 drop Collagenase (Santyl -) 1 applic TP BID [facility] Last Admin: 06/24/16 22:37 Dose: 1 applic Furosemide (Lasix Injection -) 80 mg IVPUSH BIDLASIX [facility] Last Admin: 06/25/16 06:47 Dose: 80 mg Heparin Sodium (Porcine) (Heparin -) 5,000 unit SQ BID [facility] Last Admin: 06/24/16 22:37 Dose: 5,000 unit Dobutamine HCl 250,000 mcg/ (Sodium Chloride) 250 mls @ 31.98 mls/hr IV TITR [facility]I; 5 MCG/KG/MIN PRN Reason: Protocol Last Admin: 06/24/16 16:21 Dose: 31.98 mls/hr Metronidazole (Flagyl 250mg Premixed Ivpb -) 50 mls @ 50 mls/hr IVPB Q8H-IV [facility] Last Admin: 06/25/16 01:50 Dose: 50 mls/hr Ceftriaxone Sodium (Rocephin 1gm Ivpb (Pre-Docked)) 50 mls @ 100 mls/hr IVPB DAILY [facility] Last Admin: 06/24/16 09:37 Dose: 100 mls/hr Famotidine/Sodium Chloride (Pepcid 20 Mg Premixed Ivpb -) 50 mls @ 100 mls/hr IVPB Q48H [facility] Last Admin: 06/24/16 11:30 Dose: 100 mls/hr Insulin Aspart (Novolog Vial Sliding Scale -) 1 vial SQ ACHS [facility] PRN Reason: Protocol Last Admin: 06/25/16 06:46 Dose: Not Given Levothyroxine Sodium (Synthroid Injection -) 25 mcg IVPUSH AM [facility] Last Admin: 06/25/16 06:48 Dose: 25 mcg Morphine Sulfate (Morphine Injection -) 4 mg IVPUSH Q4H PRN PRN Reason: PAIN Last Admin: 06/25/16 01:49 Dose: 4 mg Morphine Sulfate (Morphine Injection -) 2 mg IVPUSH Q4H PRN PRN Reason: PAIN Last Admin: 06/24/16 19:35 Dose: 2 mg Sevelamer Carbonate (Renvela Powder Packet -) 0.8 gm PO TIDCM [facility] Last Admin: 06/24/16 19:32 Dose: 0.8 gm Silver Sulfadiazine (Silvadene -) 1 applic TP BID [facility] Last Admin: 06/24/16 22:39 Dose: 1 applic Sodium Bicarbonate (Sodium Bicarbonate -) 650 mg PO BID [facility] Last Admin: 06/24/16 22:37 Dose: 650 mg - Objective Vital Signs: Vital Signs Temperature 95 F L 06/25/16 06:00 Pulse Rate 101 H 06/25/16 06:00 Respiratory Rate 32 H 06/25/16 06:00 Blood Pressure 103/82 06/25/16 06:00 O2 Sat by Pulse Oximetry (%) 96 06/24/16 10:59 Constitutional: Yes: Moderate Distress Neck: Yes: WNL, Supple Cardiovascular: Yes: S1, S2 Respiratory: Yes: WNL, Regular, CTA Bilaterally Gastrointestinal: Yes: WNL, Soft. No: Tenderness, Rebound Extremities: Yes: Other (Multiple wounds) Labs: CBC, BMP 06/25/16 05:25 06/25/16 05:25 INR, PTT INR 1.85 (0.82-1.09) H 06/11/16 05:15 Fibrinogen 405.0 mg/dL (238-498) 06/10/16 04:45 Assessment/Plan Microbiology 06/18/16 17:00 Urine - Urine López Urine Culture - Final NO GROWTH OBTAINED 06/18/16 17:00 Sputum - Endotrachea Suction/Ventilator Gram Stain - Final 06/18/16 17:00 Sputum - Endotrachea Suction/Ventilator Sputum Culture - Final S Aureus 06/18/16 17:00 Blood - Picc Line Blood Culture - Final NO GROWTH AFTER 5 DAYS INCUBATION 06/18/16 15:35 Blood - Peripheral Venous Blood Culture - Final NO GROWTH AFTER 5 DAYS INCUBATION 06/18/16 15:15 Blood - Peripheral Venous Blood Culture - Final NO GROWTH AFTER 5 DAYS INCUBATION Laboratory Tests 06/25/16 06/25/16 06/25/16 05:25 05:25 05:25 WBC 7.2 Hgb 8.0 L Hct 24.2 L Plt Count 99 L D BUN 49 H D Creatinine 3.0 H D Creat Clearance w eGFR 20.45 Random Vancomycin 16.249 Assessment Sepsis syndrome skin source Opacification of hemithorax Mulitple decubiti and open sores scrotum COPD Thrombocytopenia Plan Finish course of antibiotics another 24-48hours Discussed with Dr Pastor leiva family yoni Ponce MD
[2016-06-25] MEDS: CEFTRIAXONE 50 ML IVPB SCH (09:20)
[2016-06-25] MEDS: SODIUM BICARBONATE 650 MG TABLET PO SCH (09:20)
[2016-06-25] MEDS: HEPARIN NA (PORCINE) 5,000 UNITS/ML 1ML VIAL SQ SCH ×2 (09:20→22:49)
[2016-06-25] MEDS: SEVELAMER CARBONATE 0.8 GM POWDER PACKET PO SCH ×3 (09:21→16:38)
[2016-06-25] MEDS: BACITRACIN 30 GM TUBE TOPICAL OINTMENT TP SCH ×2 (09:22→22:53)
[2016-06-25] MEDS: COLLAGENASE CLOSTRIDIUM HIST. 30 GRAMS TUBE TP SCH ×2 (09:23→22:53)
[2016-06-25] MEDS: BRIMONIDINE TARTRATE 0.2% OPHTHALMIC 5 ML BOTTLE OU SCH ×2 (09:24→22:51)
[2016-06-25] MEDS: DOBUTAMINE HCL 250,000 MCG in SODIUM CHLORIDE 230 ML IV SCH ×2 (09:48→11:41)
[2016-06-25] MEDS: SILVER SULFADIAZINE 1% TOP CREAM 50 GM JAR TP SCH ×2 (11:40→22:52)
[2016-06-25 11:43] LABS: ARTERIAL BLD GAS O2 SATURATION 97.9 % (90-98.9); ARTERIAL BLOOD GAS BASE EXCESS 0.6 meq/l (-2-2); ARTERIAL BLOOD GAS HCO3 25.8 meq/L (22-26); ARTERIAL BLOOD GAS PO2 99.6 mmHg (70-100); ARTERIAL BLOOD GAS pH 7.35 (7.35-7.45)
[2016-06-25 11:46] LABS: ALLENS TEST POSITIVE; ART PUNCT SITE RIGHT RADIAL; LPM/O2% 50%; PT. ON O2? YES; TYPE OF O2 FACE TENT
--- NOTE | 2016-06-25 12:19 | PN ---
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, Physician History of Present Illness: Pt seen and examined at bedside. He remains in the ICU. Pt is not as interactive as he was yesterday. - Current Medication List Current Medications: Active Medications Acetylcysteine (Mucomyst 20 Oral / Inh Use Only*) 800 mg NEB QIDR [facility] Last Admin: 06/25/16 07:24 Dose: 800 mg Albuterol Sulfate (Ventolin 0.083% Nebulizer Soln -) 1 amp NEB QIDR [facility] Last Admin: 06/25/16 07:24 Dose: 1 amp Bacitracin (Bacitracin -) 1 applic TP BID [facility] Last Admin: 06/25/16 09:22 Dose: 1 applic Brimonidine Tartrate (Alphagan 0.2% -) 1 drop OU BID [facility] Last Admin: 06/25/16 09:24 Dose: 1 drop Collagenase (Santyl -) 1 applic TP BID [facility] Last Admin: 06/25/16 09:23 Dose: 1 applic Furosemide (Lasix Injection -) 80 mg IVPUSH BIDLASIX REPLACED BY [facility] Last Admin: 06/25/16 06:47 Dose: 80 mg Heparin Sodium (Porcine) (Heparin -) 5,000 unit SQ BID [facility] Last Admin: 06/25/16 09:20 Dose: 5,000 unit Dobutamine HCl 250,000 mcg/ (Sodium Chloride) 250 mls @ 31.98 mls/hr IV TITR [facility]; 5 MCG/KG/MIN PRN Reason: Protocol Last Admin: 06/25/16 11:41 Dose: Not Given Metronidazole (Flagyl 250mg Premixed Ivpb -) 50 mls @ 50 mls/hr IVPB Q8H-IV [facility] Last Admin: 06/25/16 09:47 Dose: 50 mls/hr Ceftriaxone Sodium (Rocephin 1gm Ivpb (Pre-Docked)) 50 mls @ 100 mls/hr IVPB DAILY REPLACED BY [facility] Last Admin: 06/25/16 09:20 Dose: 100 mls/hr Famotidine/Sodium Chloride (Pepcid 20 Mg Premixed Ivpb -) 50 mls @ 100 mls/hr IVPB Q48H [facility] Last Admin: 06/24/16 11:30 Dose: 100 mls/hr Insulin Aspart (Novolog Vial Sliding Scale -) 1 vial SQ ACHS [facility] PRN Reason: Protocol Last Admin: 06/25/16 11:39 Dose: Not Given Levothyroxine Sodium (Synthroid Injection -) 25 mcg IVPUSH AM REPLACED BY [facility] Last Admin: 06/25/16 06:48 Dose: 25 mcg Morphine Sulfate (Morphine Injection -) 4 mg IVPUSH Q4H PRN PRN Reason: PAIN Last Admin: 06/25/16 01:49 Dose: 4 mg Morphine Sulfate (Morphine Injection -) 2 mg IVPUSH Q4H PRN PRN Reason: PAIN Last Admin: 06/24/16 19:35 Dose: 2 mg Sevelamer Carbonate (Renvela Powder Packet -) 0.8 gm PO TIDCM REPLACED BY [facility] Last Admin: 06/25/16 09:21 Dose: 0.8 gm Silver Sulfadiazine (Silvadene -) 1 applic TP BID REPLACED BY [facility] Last Admin: 06/25/16 11:40 Dose: 1 applic Sodium Bicarbonate (Sodium Bicarbonate -) 650 mg PO BID REPLACED BY [facility] Last Admin: 06/25/16 09:20 Dose: 650 mg - Objective Vital Signs: Vital Signs Temperature 97.5 F L 06/25/16 10:00 Pulse Rate 104 H 06/25/16 10:00 Respiratory Rate 26 H 06/25/16 10:00 Blood Pressure 111/73 06/25/16 10:00 O2 Sat by Pulse Oximetry (%) 96 06/24/16 10:59 Constitutional: Yes: Calm Eyes: Yes: Conjunctiva Clear HENT: Yes: Atraumatic Cardiovascular: Yes: S1, S2 Respiratory: Yes: On Venti-Mask, Rhonchi Gastrointestinal: Yes: Soft, Abdomen, Obese Genitourinary: Yes: López Present, Oliguria Musculoskeletal: Yes: Muscle Weakness Edema: Yes Edema: LLE: 2+, RLE: 2+ Integumentary: Yes: Venous Stasis Changes Wound/Incision: Yes: Dressing Dry and Intact Neurological: Yes: Lethargy Labs: CBC, BMP 06/25/16 05:25 06/25/16 05:25 INR, PTT INR 1.85 (0.82-1.09) H 06/11/16 05:15 Fibrinogen 405.0 mg/dL (238-498) 06/10/16 04:45 - ....Imaging Chest X-ray: Report Reviewed Problem List - Problems (1) Acute hyperkalemia Code(s): E87.5 - HYPERKALEMIA (2) Hyponatremia Code(s): E87.1 - HYPO-OSMOLALITY AND HYPONATREMIA (3) Hypotension Code(s): I95.9 - HYPOTENSION, UNSPECIFIED Qualifiers: Hypotension type: other hypotension type Qualified Code(s): I95.89 - Other hypotension (4) Acute on chronic renal failure Code(s): N17.9 - ACUTE KIDNEY FAILURE, UNSPECIFIED N18.9 - CHRONIC KIDNEY DISEASE, UNSPECIFIED (5) Anemia Code(s): D64.9 - ANEMIA, UNSPECIFIED Qualifiers: Other causes of anemia: chronic disease, kidney (6) COPD (chronic obstructive pulmonary disease) Code(s): J44.9 - CHRONIC OBSTRUCTIVE PULMONARY DISEASE, UNSPECIFIED (7) Congestive heart failure (CHF) Code(s): I50.9 - HEART FAILURE, UNSPECIFIED Qualifiers: Congestive heart failure type: systolic Congestive heart failure chronicity: chronic Qualified Code(s): I50.22 - Chronic systolic (congestive ) heart failure (8) DMII (diabetes mellitus, type 2) Code(s): E11.9 - TYPE 2 DIABETES MELLITUS WITHOUT COMPLICATIONS Qualifiers: Diabetes mellitus complication detail: with other kidney complication (9) CKD (chronic kidney disease) Code(s): N18.9 - CHRONIC KIDNEY DISEASE, UNSPECIFIED Assessment/Plan Current Medications Generic Name Dose Route Start Last Admin Trade Name Freq PRN Reason Stop Dose Admin Acetylcysteine 800 mg 06/24/16 12:00 06/25/16 07:24 Mucomyst 20 Oral / Inh Use Only* NEB 800 mg QIDR [facility] Administration Albuterol Sulfate 1 amp 06/24/16 12:00 06/25/16 07:24 Ventolin 0.083% Nebulizer Soln - NEB 1 amp QIDR [facility] Administration Bacitracin 1 applic 06/23/16 22:00 06/25/16 09:22 Bacitracin - TP 1 applic BID [facility] Administration Brimonidine Tartrate 1 drop 06/10/16 10:00 06/25/16 09:24 Alphagan 0.2% - OU 1 drop BID [facility] Administration Collagenase 1 applic 06/13/16 22:00 06/25/16 09:23 Santyl - TP 1 applic BID [facility] Administration Furosemide 80 mg 06/23/16 14:00 06/25/16 06:47 Lasix Injection - IVPUSH 80 mg BIDLASIX [facility] Administration Heparin Sodium (Porcine) 5,000 unit 06/20/16 22:00 06/25/16 09:20 Heparin - SQ 5,000 unit BID [facility] Administration Dobutamine HCl 250,000 mcg/ 250 mls @ 31.98 mls/hr 06/15/16 11:00 06/25/16 11: 41 Sodium Chloride IV Not Given TITR [facility] Protocol 5 MCG/KG/MIN Metronidazole 50 mls @ 50 mls/hr 06/20/16 10:00 06/25/16 09:47 Flagyl 250mg Premixed Ivpb - IVPB 50 mls/hr Q8H-IV [facility] Administration Ceftriaxone Sodium 50 mls @ 100 mls/hr 06/21/16 10:00 06/25/16 09:20 Rocephin 1gm Ivpb (Pre-Docked) IVPB 100 mls/hr DAILY [facility] Administration Famotidine/Sodium Chloride 50 mls @ 100 mls/hr 06/22/16 10:45 06/24/16 11:30 Pepcid 20 Mg Premixed Ivpb - IVPB 100 mls/hr Q48H [facility] Administration Insulin Aspart 1 vial 06/10/16 16:30 06/25/16 11:39 Novolog Vial Sliding Scale - SQ Not Given ACHS REPLACED BY [facility] Protocol Levothyroxine Sodium 25 mcg 06/10/16 07:00 06/25/16 06:48 Synthroid Injection - IVPUSH 25 mcg AM [facility] Administration Morphine Sulfate 4 mg 06/24/16 19:40 06/25/16 01:49 Morphine Injection - IVPUSH 4 mg Q4H PRN Administration PAIN Morphine Sulfate 2 mg 06/24/16 19:44 06/24/16 19:35 Morphine Injection - IVPUSH 2 mg Q4H PRN Administration PAIN Sevelamer Carbonate 0.8 gm 06/15/16 12:50 06/25/16 09:21 Renvela Powder Packet - PO 0.8 gm TIDCM [facility] Administration Silver Sulfadiazine 1 applic 06/17/16 22:00 06/25/16 11:40 Silvadene - TP 1 applic BID [facility] Administration Impression 1. CASE on CKD 2. sepsis with shock 3. cellulitis/abscess of back 4. CHF acute 5. hypothyroidism 6. hyperlipidemia 7. COPD 8. htn 9. a-fib 10. hyponatremia - isoosmolar 11. acute respiratory failure requiring intubation Plan - pt remains oliguric - will arrange for HD tomorrow - spoke to vascular surgery for permacath - monitor urine output, can stop lasix if he remains oliguric - discussed with ICU team - monitor blood pressure Dr Martinez
--- NOTE | 2016-06-25 12:53 | PN ---
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, CALIBRATION SPECIALIST - Note 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: Selected Entries 06/24/16 06/24/16 06/25/16 15:44 20:05 02:00 Breakfast Supper NPO 50% Temperature 95 F L 06/25/16 06/25/16 06/25/16 06:00 10:00 11:03 Breakfast 0 Supper Temperature 95 F L 97.5 F L Laboratory Tests 06/22/16 06/23/16 06/24/16 06:00 05:55 05:20 WBC 18.7 H 12.6 H D 9.1 Less alert. Hold Magic cup until more responsive and less SOB.
--- NOTE | 2016-06-25 13:17 | PN ---
Teaching Attending Note Name of Resident: Patricio Andrade ATTENDING PHYSICIAN STATEMENT I saw and evaluated the patient. I reviewed the resident's note and discussed the case with the resident. I agree with the resident's findings and plan as documented. SUBJECTIVE: Pt seen and examined in the ICU. On and off BiPAP, more alert and awake. Oliguric on lasix boluses, dobutamine being tapered off. OBJECTIVE: Last Vital Signs Temp Pulse Resp BP Pulse Ox 97.5 F L 104 H 26 H 111/73 96 06/25/16 10:00 06/25/16 10:00 06/25/16 10:00 06/25/16 10:00 06/24/16 10:59 Intake & Output 06/22/16 06/23/16 06/24/16 06/25/16 23:59 23:59 23:59 23:59 Intake Total 554 1224 1068 484 Output Total 375 80 210 Balance 179 1144 858 484 Weight 227 lb 13.437 oz 224 lb 5 oz 225 lb 15.581 oz 218 lb 4.122 oz Gen: more alert, awake Heart: tachycardic, regular Lung: decreased breath sounds on right Abd: soft, nontender Ext: decreasing edema CBC, BMP 06/25/16 05:25 06/25/16 05:25 Active Medications Acetylcysteine (Mucomyst 20 Oral / Inh Use Only*) 800 mg NEB QIDR [facility] Last Admin: 06/25/16 12:52 Dose: 800 mg Albuterol Sulfate (Ventolin 0.083% Nebulizer Soln -) 1 amp NEB QIDR [facility] Last Admin: 06/25/16 12:52 Dose: 1 amp Bacitracin (Bacitracin -) 1 applic TP BID [facility] Last Admin: 06/25/16 09:22 Dose: 1 applic Brimonidine Tartrate (Alphagan 0.2% -) 1 drop OU BID [facility] Last Admin: 06/25/16 09:24 Dose: 1 drop Collagenase (Santyl -) 1 applic TP BID [facility] Last Admin: 06/25/16 09:23 Dose: 1 applic Epoetin Wilson (Epogen -) 4,000 units IVPUSH ONCE ONE Stop: 06/26/16 12:23 Furosemide (Lasix Injection -) 80 mg IVPUSH BIDLASIX [facility] Last Admin: 06/25/16 06:47 Dose: 80 mg Heparin Sodium (Porcine) (Heparin -) 5,000 unit SQ BID [facility] Last Admin: 06/25/16 09:20 Dose: 5,000 unit Dobutamine HCl 250,000 mcg/ (Sodium Chloride) 250 mls @ 31.98 mls/hr IV TITR [facility]; 5 MCG/KG/MIN PRN Reason: Protocol Last Admin: 06/25/16 11:41 Dose: Not Given Metronidazole (Flagyl 250mg Premixed Ivpb -) 50 mls @ 50 mls/hr IVPB Q8H-IV [facility] Last Admin: 06/25/16 09:47 Dose: 50 mls/hr Ceftriaxone Sodium (Rocephin 1gm Ivpb (Pre-Docked)) 50 mls @ 100 mls/hr IVPB DAILY [facility] Last Admin: 06/25/16 09:20 Dose: 100 mls/hr Famotidine/Sodium Chloride (Pepcid 20 Mg Premixed Ivpb -) 50 mls @ 100 mls/hr IVPB Q48H [facility] Last Admin: 06/24/16 11:30 Dose: 100 mls/hr Insulin Aspart (Novolog Vial Sliding Scale -) 1 vial SQ ACHS [facility] PRN Reason: Protocol Last Admin: 06/25/16 11:39 Dose: Not Given Levothyroxine Sodium (Synthroid Injection -) 25 mcg IVPUSH AM [facility] Last Admin: 06/25/16 06:48 Dose: 25 mcg Morphine Sulfate (Morphine Injection -) 4 mg IVPUSH Q4H PRN PRN Reason: PAIN Last Admin: 06/25/16 01:49 Dose: 4 mg Morphine Sulfate (Morphine Injection -) 2 mg IVPUSH Q4H PRN PRN Reason: PAIN Last Admin: 06/24/16 19:35 Dose: 2 mg Sevelamer Carbonate (Renvela Powder Packet -) 0.8 gm PO TIDCM [facility] Last Admin: 06/25/16 09:21 Dose: 0.8 gm Silver Sulfadiazine (Silvadene -) 1 applic TP BID [facility] Last Admin: 06/25/16 11:40 Dose: 1 applic ASSESSMENT AND PLAN: s/p Acute Respiratory Failure Back/Shoulder Cellulitis/Abscess Septic vs Cardiogenic Shock Acute on Chronic Renal Failure Metabolic Acidosis Acute on Chronic LV Systolic Heart Failure Atrial Fibrillation COPD Hyponatremia Atelectasis improving - continue lasix although unclear what benefit it is providing at this time - taper off dobutamine gtt - HD per renal - keep net negative fluid balance - will need permacath placement - s/p antibiotic course - O2 to keep SpO2 >90% - aspiration precautions - inhaled bronchodilators with mucolytics - PO as tolerated - DVT/GI prophylaxis - continue ICU monitoring critical care time spent reviewing chart, evaluating patient and formulating plan 36 min
--- NOTE | 2016-06-25 14:32 | PN ---
Physical Exam: SUBJECTIVE: Patient seen and examined Patient on bipap whole night. Patient is alert Patient will got hd yesterday urine output 150 cxr shows right side collapsed lung OBJECTIVE: Vital Signs Period Temp Pulse Resp BP Sys/Hubbard Pulse Ox Last 24 Hr 95 F-97.6 F 100-117 22-32 102-124/53-88 GENERAL: The patient is awake, alert, disorented HEAD: Normal with no signs of trauma. EYES: Pupils equal, round and reactive to light, NECK no lymphadenopathy LUNGS:b/l air entry present, diffuse ronchi, no wheez, pick line cath in situ, dialysis cath in situ. HEART: s1s2 normal, ABDOMEN: Soft, nontender, not distended, normoactive bowel sounds, no guarding, no rebound, no masses. scrotal and penile swelling present UPPER EXTREMITIES: 2+ pulses, warm, well-perfused. No cyanosis. No clubbing. Cap refill <2 seconds. .pedal edema decreased LOWER EXTREMITIES: multiple ulcers resent on b/l lower limb, pitting edema decreased Laboratory Results - last 24 hr 06/21/16 06/24/16 06/24/16 16:11 18:29 21:34 WBC RBC Hgb Hct MCV MCHC RDW Plt Count MPV Neutrophils % Lymphocytes % Monocytes % Eosinophils % Basophils % Puncture Site ABG pH ABG pCO2 at Pt Temp ABG pO2 at Pt Temp ABG HCO3 ABG O2 Sat (Measured) ABG O2 Content ABG Base Excess Frankie Test O2 Delivery Device Oxygen Flow Rate PEEP Sodium Potassium Chloride Carbon Dioxide Anion Gap BUN Creatinine Creat Clearance w eGFR POC Glucometer 134.80901 142.49133 Random Glucose Calcium Total Bilirubin AST ALT Alkaline Phosphatase Total Protein Albumin Random Vancomycin Blood Type A POSITIVE Antibody Screen Negative Crossmatch See Detail 06/25/16 06/25/16 06/25/16 05:25 05:25 05:25 WBC 7.2 RBC 2.79 L Hgb 8.0 L Hct 24.2 L MCV 86.9 MCHC 32.8 RDW 17.4 H Plt Count 99 L D MPV 9.6 D Neutrophils % 85.5 H Lymphocytes % 3.5 L D Monocytes % 10.2 Eosinophils % 0.4 Basophils % 0.4 Puncture Site ABG pH ABG pCO2 at Pt Temp ABG pO2 at Pt Temp ABG HCO3 ABG O2 Sat (Measured) ABG O2 Content ABG Base Excess Frankie Test O2 Delivery Device Oxygen Flow Rate PEEP Sodium 141 Potassium 3.5 Chloride 101 Carbon Dioxide 28 Anion Gap 12 BUN 49 H D Creatinine 3.0 H D Creat Clearance w eGFR 20.45 POC Glucometer Random Glucose 99 D Calcium 8.1 L Total Bilirubin 1.0 AST 20 ALT 14 Alkaline Phosphatase 79 Total Protein 5.4 L Albumin 1.7 L Random Vancomycin 16.249 Blood Type Antibody Screen Crossmatch 06/25/16 06/25/16 06/25/16 06:21 11:21 11:34 WBC RBC Hgb Hct MCV MCHC RDW Plt Count MPV Neutrophils % Lymphocytes % Monocytes % Eosinophils % Basophils % Puncture Site Right radial ABG pH 7.35 ABG pCO2 at Pt Temp 47.5 H ABG pO2 at Pt Temp 99.6 ABG HCO3 25.8 ABG O2 Sat (Measured) 97.9 ABG O2 Content 10.9 L ABG Base Excess 0.6 Frankie Test Positive O2 Delivery Device Face tent Oxygen Flow Rate 50% PEEP 0.0 Sodium Potassium Chloride Carbon Dioxide Anion Gap BUN Creatinine Creat Clearance w eGFR POC Glucometer 145.28050 128.33459 Random Glucose Calcium Total Bilirubin AST ALT Alkaline Phosphatase Total Protein Albumin Random Vancomycin Blood Type Antibody Screen Crossmatch Active Medications Generic Name Dose Route Start Last Admin Trade Name Freq PRN Reason Stop Dose Admin Acetylcysteine 800 mg 06/24/16 12:00 06/25/16 12:52 Mucomyst 20 Oral / Inh Use Only* NEB 800 mg QIDR [facility] Administration Albuterol Sulfate 1 amp 06/24/16 12:00 06/25/16 12:52 Ventolin 0.083% Nebulizer Soln - NEB 1 amp QIDR [facility] Administration Bacitracin 1 applic 06/23/16 22:00 06/25/16 09:22 Bacitracin - TP 1 applic BID [facility] Administration Brimonidine Tartrate 1 drop 06/10/16 10:00 06/25/16 09:24 Alphagan 0.2% - OU 1 drop BID [facility] Administration Collagenase 1 applic 06/13/16 22:00 06/25/16 09:23 Santyl - TP 1 applic BID [facility] Administration Epoetin Wilson 4,000 units 06/26/16 12:22 Epogen - IVPUSH 06/26/16 12:23 ONCE ONE Furosemide 80 mg 06/23/16 14:00 06/25/16 14:06 Lasix Injection - IVPUSH 80 mg BIDLASIX [facility] Administration Heparin Sodium (Porcine) 5,000 unit 06/20/16 22:00 06/25/16 09:20 Heparin - SQ 5,000 unit BID [facility] Administration Dobutamine HCl 250,000 mcg/ 250 mls @ 31.98 mls/hr 06/15/16 11:00 06/25/16 11: 41 Sodium Chloride IV Not Given TITR [facility] Protocol 5 MCG/KG/MIN Metronidazole 50 mls @ 50 mls/hr 06/20/16 10:00 06/25/16 09:47 Flagyl 250mg Premixed Ivpb - IVPB 50 mls/hr Q8H-IV [facility] Administration Ceftriaxone Sodium 50 mls @ 100 mls/hr 06/21/16 10:00 06/25/16 09:20 Rocephin 1gm Ivpb (Pre-Docked) IVPB 100 mls/hr DAILY [facility] Administration Famotidine/Sodium Chloride 50 mls @ 100 mls/hr 06/22/16 10:45 06/24/16 11:30 Pepcid 20 Mg Premixed Ivpb - IVPB 100 mls/hr Q48H [facility] Administration Insulin Aspart 1 vial 06/10/16 16:30 06/25/16 11:39 Novolog Vial Sliding Scale - SQ Not Given ACHS [facility] Protocol Levothyroxine Sodium 25 mcg 06/10/16 07:00 06/25/16 06:48 Synthroid Injection - IVPUSH 25 mcg AM [facility] Administration Morphine Sulfate 4 mg 06/24/16 19:40 06/25/16 01:49 Morphine Injection - IVPUSH 4 mg Q4H PRN Administration PAIN Morphine Sulfate 2 mg 06/24/16 19:44 06/24/16 19:35 Morphine Injection - IVPUSH 2 mg Q4H PRN Administration PAIN Sevelamer Carbonate 0.8 gm 06/15/16 12:50 06/25/16 14:11 Renvela Powder Packet - PO 0.8 gm TIDCM [facility] Administration Silver Sulfadiazine 1 applic 06/17/16 22:00 06/25/16 11:40 Silvadene - TP 1 applic BID [facility] Administration ASSESSMENT/PLAN: shock afebrile, wbc decreased , patient could have septic shock with cardiogenic shock monitor vitals monitor intake/ output, try to keep negative balance, on dobutamin drip at 5, taper dobutamin, MAP > 65 sputum : mrsa + on ceftriaxone/ vanco/ flagyl as per id hyponatremia resolved na 140 abdiaziz on ckd HD as per nephrology avoid nephrotoxic drugs nephrology on case on lasix 80mg bid patient will get permacath tomorrow Acute respiratory failure with right side atelectasis keep right side up neb with mucomist and albuterol chest physiotherapy on bipap , keep spo2 .> 90 Hyperkalemia resolved k 3.5 on hd acute on chronic LV heart failure avoid Iv fluid daily weight maintain negative balance. on laisx 80 q12h monitor IO LV systolic function severly reduced, LV global hypokinesia cardiology on case lactic acidosis improved hypothermia on hector hugger prn h/o cad, A flutter/ fibrillation , chf, global hypokinesia alaquis on hold due to anemia, cardiology on case last echo on 06/10 ef 28 and global hypokinesia anemia hb 8.0 stable will give blood during hd h/o copd not active on albuterol DM on sliding scale follow bgm b/l lower leg ulcer venous ulcer vascular sugery on case sanyl dressing dyllan bandage h/o hypothyroid on synthyroid fluid ; avoid IV fluid electrolyte ; repeat in am nutrition ; diet as per dietary recommendation dvt pro on sq heparin gi pro : on pepcid patient is full code. chest physiotherapy, physical therapy, dispo : admit in icu Visit type - Emergency Visit Emergency Visit: Yes ED Registration Date: 06/10/16 Care time: The patient presented to the Emergency Department on the above date and was hospitalized for further evaluation of their emergent condition. - New Patient This patient is new to me today: No - Critical Care Critical Care patient: Yes Total Critical Care Time (in minutes): 45 Critical Care Statement: The care of this patient involved high complexity decision making to prevent further life threatening deterioration of the patient 's condition and/or to evalute & treat vital organ system(s) failure or risk of failure.
--- NOTE | 2016-06-25 18:15 | PN ---
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 (short form) - Note 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: Vascular Surgery Pt seen and examined. Callled to place PC for HD NPO past midnight. For PC in am. Carlyle Batres DO
[2016-06-26] MEDS: ACETYLCYSTEINE 20% 200MG/ML 4 ML VIAL *FOR ORAL / INH USE ONLY NEB SCH ×5 (00:10→23:26)
[2016-06-26] MEDS: ALBUTEROL SO4 0.083% IH SOL 2.5 MG/3 ML VIAL.NEB. NEB SCH ×5 (00:10→23:26)
[2016-06-26] MEDS ORDERED: PT OWN MED DRAWER 7, Y5N ONE ×4 (00:23→20:03)
[2016-06-26] MEDS: METRONIDAZOLE PREMIXED IVPB 50 ML IVPB SCH ×3 (01:54→17:53)
[2016-06-26] MEDS ORDERED: HEMOQUE TEST 1 EACH EACH ONE ×2 (05:47→22:05)
[2016-06-26] MEDS: INSULIN SLIDING SCALE (NOVOLOG) 1 VIAL SQ SCH ×4 (06:05→22:12)
[2016-06-26] MEDS: FUROSEMIDE 40 MG/4 ML INJECTABLE VIAL IVPUSH SCH ×3 (06:05→15:55)
[2016-06-26] MEDS: LEVOTHYROXINE SODIUM 100 MCG VIAL IVPUSH SCH (06:06)
[2016-06-26 06:11] LABS: BASOPHIL 0.5 % (0-2.0); EOSINOPHIL 0.6 % (0-4.5); MCHC 33.1 g/dl (32.0-35.9); MEAN CELL VOLUME 87.8 fl (80-96); MEAN PLT VOLUME 8.4 fl (7.5-11.1); NEUTROPHILS 82.5 % (42.8-82.8); PLATELET COUNT 95 K/MM3 (134-434); RDW 17.4 % (11.9-15.9); WHITE BLOOD COUNT 6.1 K/mm3 (4.0-10.0)
[2016-06-26 06:48] LABS: ALBUMIN 1.7 g/dl (3.4-5.0); CALCIUM 7.7 mg/dL (8.5-10.1)
[2016-06-26 06:51] LABS: BILIRUBIN,TOTAL 0.9 mg/dL (0.2-1.0); CREATININE 3.7 mg/dL (0.7-1.3); TOT PROT 5.5 g/dl (6.4-8.2)
--- NOTE | 2016-06-26 07:22 | PN ---
Progress Note (short form) - Note Progress Note: ID Vancomycin Ceftriaxone Metrondiazole Discussed with Dr Shoemaker will discuss patients condition with family Selected Entries 06/25/16 06/26/16 22:00 00:00 Temperature 98.2 F Pulse Rate 105 H Respiratory 36 H Rate Blood Pressure 131/78 Lung Rhonchi Cor S1 S2 ABd Soft nontender Ext Extensive wounds LE decubiti Microbiology 06/18/16 17:00 Urine - Urine López Urine Culture - Final NO GROWTH OBTAINED 06/18/16 15:35 Blood - Peripheral Venous Blood Culture - Final NO GROWTH AFTER 5 DAYS INCUBATION Laboratory Tests 06/11/16 06/25/16 06/26/16 05:15 05:25 05:15 WBC 6.1 Hgb 7.9 L Plt Count 95 L INR 1.85 H BUN Creatinine Random Vancomycin 16.249 06/26/16 05:15 WBC Hgb Plt Count INR BUN 57 H Creatinine 3.7 H D Random Vancomycin Assessment Sepsis syndrome Multiple wounds and decubitus ulcers Acute kidney failure dialysis Opacified right lung Plan Now day 6 antibiotics as above Would stop antibiotics tomorrow with exception of Vancomycin to be redosed now Prognosis ling term poor as discussed this am with Dr Shoemaker family to be contacted again Kris MOSQUERA
[2016-06-26 07:37] LABS: ARTERIAL BLD GAS O2 SATURATION 99.7 % (90-98.9); ARTERIAL BLOOD GAS BASE EXCESS 0.1 meq/l (-2-2); ARTERIAL BLOOD GAS HCO3 25.5 meq/L (22-26); ARTERIAL BLOOD GAS pH 7.33 (7.35-7.45)
[2016-06-26 07:39] LABS: ALLENS TEST POSITIVE; ART PUNCT SITE RIGHT RADIAL; LPM/O2% 60%; MECH. VENT. BIPAP; PT. ON O2? YES; TYPE OF O2 BIPAP; VENT RATE 16; VT/PRESS 16/6
--- NOTE | 2016-06-26 08:15 | PN ---
Progress Note, Physician - Current Medication List Current Medications: Active Medications Acetylcysteine (Mucomyst 20 Oral / Inh Use Only*) 800 mg NEB QIDR [facility] Last Admin: 06/26/16 06:40 Dose: 800 mg Albuterol Sulfate (Ventolin 0.083% Nebulizer Soln -) 1 amp NEB QIDR [facility] Last Admin: 06/26/16 06:40 Dose: 1 amp Bacitracin (Bacitracin -) 1 applic TP BID [facility] Last Admin: 06/25/16 22:53 Dose: 1 applic Brimonidine Tartrate (Alphagan 0.2% -) 1 drop OU BID [facility] Last Admin: 06/25/16 22:51 Dose: 1 drop Collagenase (Santyl -) 1 applic TP BID [facility] Last Admin: 06/25/16 22:53 Dose: 1 applic Epoetin Wilson (Epogen -) 4,000 units IVPUSH ONCE ONE Stop: 06/26/16 12:23 Furosemide (Lasix Injection -) 80 mg IVPUSH BIDLASIX [facility] Last Admin: 06/26/16 06:30 Dose: Not Given Heparin Sodium (Porcine) (Heparin -) 5,000 unit SQ BID [facility] Last Admin: 06/25/16 22:49 Dose: 5,000 unit Dobutamine HCl 250,000 mcg/ (Sodium Chloride) 250 mls @ 31.98 mls/hr IV TITR [facility]; 5 MCG/KG/MIN PRN Reason: Protocol Last Admin: 06/25/16 11:41 Dose: Not Given Metronidazole (Flagyl 250mg Premixed Ivpb -) 50 mls @ 50 mls/hr IVPB Q8H-IV [facility] Last Admin: 06/26/16 01:54 Dose: 50 mls/hr Ceftriaxone Sodium (Rocephin 1gm Ivpb (Pre-Docked)) 50 mls @ 100 mls/hr IVPB DAILY [facility] Last Admin: 06/25/16 09:20 Dose: 100 mls/hr Famotidine/Sodium Chloride (Pepcid 20 Mg Premixed Ivpb -) 50 mls @ 100 mls/hr IVPB Q48H [facility] Last Admin: 06/24/16 11:30 Dose: 100 mls/hr Vancomycin HCl 1,250 mg/ (Dextrose) 250 mls @ 250 mls/hr IVPB ONCE ONE PRN Reason: Protocol Stop: 06/26/16 08:24 Insulin Aspart (Novolog Vial Sliding Scale -) 1 vial SQ ACHS [facility] PRN Reason: Protocol Last Admin: 06/26/16 06:05 Dose: Not Given Levothyroxine Sodium (Synthroid Injection -) 25 mcg IVPUSH AM [facility] Last Admin: 06/26/16 06:06 Dose: 25 mcg Morphine Sulfate (Morphine Injection -) 4 mg IVPUSH Q4H PRN PRN Reason: PAIN Last Admin: 06/25/16 01:49 Dose: 4 mg Morphine Sulfate (Morphine Injection -) 2 mg IVPUSH Q4H PRN PRN Reason: PAIN Last Admin: 06/24/16 19:35 Dose: 2 mg Sevelamer Carbonate (Renvela Powder Packet -) 0.8 gm PO TIDCM [facility] Last Admin: 06/25/16 16:38 Dose: 0.8 gm Silver Sulfadiazine (Silvadene -) 1 applic TP BID [facility] Last Admin: 06/25/16 22:52 Dose: 1 applic - Objective Vital Signs: Vital Signs Temperature 98.0 F 06/26/16 06:00 Pulse Rate 104 H 06/26/16 06:00 Respiratory Rate 28 H 06/26/16 06:00 Blood Pressure 90/65 06/26/16 06:00 O2 Sat by Pulse Oximetry (%) 98 06/26/16 07:44 Constitutional: Yes: Calm HENT: Yes: WNL Neck: Yes: WNL Cardiovascular: Yes: WNL Respiratory: Yes: Other (ON O2 MASK) Edema: No Labs: CBC, BMP 06/26/16 05:15 06/26/16 05:15 INR, PTT INR 1.85 (0.82-1.09) H 06/11/16 05:15 Fibrinogen 405.0 mg/dL (238-498) 06/10/16 04:45 Problem List - Problems (1) Anemia Code(s): D64.9 - ANEMIA, UNSPECIFIED Qualifiers: Qualified Code(s): N18.9 - Chronic kidney disease, unspecified; D63.1 - Anemia in chronic kidney disease Assessment/Plan (1) CKD (chronic kidney disease) Code(s): N18.9 - CHRONIC KIDNEY DISEASE, UNSPECIFIED (2) Hyponatremia Code(s): E87.1 - HYPO-OSMOLALITY AND HYPONATREMIA (3) Hypotension Code(s): I95.9 - HYPOTENSION, UNSPECIFIED Qualifiers: Hypotension type: other hypotension type Qualified Code(s): I95.89 - Other hypotension (4) Lung consolidation Code(s): J18.1 - LOBAR PNEUMONIA, UNSPECIFIED ORGANISM (5) Anemia Code(s): D64.9 - ANEMIA, UNSPECIFIED Qualifiers: Other causes of anemia: chronic disease, kidney (6) Atrial flutter Code(s): I48.92 - UNSPECIFIED ATRIAL FLUTTER (7) Bacteremia Code(s): R78.81 - BACTEREMIA (8) COPD (chronic obstructive pulmonary disease) Code(s): J44.9 - CHRONIC OBSTRUCTIVE PULMONARY DISEASE, UNSPECIFIED (9) DMII (diabetes mellitus, type 2) Code(s): E11.9 - TYPE 2 DIABETES MELLITUS WITHOUT COMPLICATIONS Qualifiers: Diabetes mellitus complication detail: with other kidney complication (10) Dyspnea Code(s): R06.00 - DYSPNEA, UNSPECIFIED Qualifiers: Dyspnea type: shortness of breath Qualified Code(s): R06.02 - Shortness of breath (11) Pressure ulcer of lower extremity, stage 1 Code(s): L89.891 - PRESSURE ULCER OF OTHER SITE, STAGE 1 (12) Sepsis Code(s): A41.9 - SEPSIS, UNSPECIFIED ORGANISM Qualifiers: Sepsis type: sepsis due to unspecified organism Qualified Code(s): A41.9 - Sepsis, unspecified organism (13) Weakness of both lower limbs Code(s): M62.81 - MUSCLE WEAKNESS (GENERALIZED) (14) Wound of left shoulder Code(s): S41.002A - UNSPECIFIED OPEN WOUND OF LEFT SHOULDER, INITIAL ENCOUNTER Qualifiers: Encounter type: subsequent encounter Qualified Code(s): S41.002D - Unspecified open wound of left shoulder, subsequent encounter (15) Acute respiratory distress Code(s): R06.00 - DYSPNEA, UNSPECIFIED Assessment/Plan S/P INTUBATED ON VENT SUPPORT SEPSIS ON ABX HGB 8 STABLE S/P pRBC SURGERY EVAL FOR LEG EDEMA AND LEFT BACK WOUND DVT PROPHYLAXIS ST ON CASE -> IMPAIRED GOAL OF TREATMENT PALLIATIVE NOTE APPRECIATED PASTOR AVALOS
[2016-06-26] MEDS ORDERED: VANCOMYCIN 1,250 MG in DEXTROSE 5%-WATER - 250 ML IVPB ONE (10:00)
[2016-06-26] MEDS: CEFTRIAXONE 50 ML IVPB SCH (10:11)
[2016-06-26] MEDS: FAMOTIDINE 20 MG/50 ML IVPB 50 ML IVPB SCH (10:11)
[2016-06-26] MEDS: BACITRACIN 30 GM TUBE TOPICAL OINTMENT TP SCH ×2 (10:12→22:12)
[2016-06-26] MEDS: BRIMONIDINE TARTRATE 0.2% OPHTHALMIC 5 ML BOTTLE OU SCH ×2 (10:12→22:11)
[2016-06-26] MEDS: COLLAGENASE CLOSTRIDIUM HIST. 30 GRAMS TUBE TP SCH ×2 (10:13→23:20)
[2016-06-26] MEDS: HEPARIN NA (PORCINE) 5,000 UNITS/ML 1ML VIAL SQ SCH ×2 (10:13→22:12)
[2016-06-26] MEDS: SEVELAMER CARBONATE 0.8 GM POWDER PACKET PO SCH ×3 (10:14→17:53)
[2016-06-26] MEDS: SILVER SULFADIAZINE 1% TOP CREAM 50 GM JAR TP SCH ×2 (10:25→22:11)
[2016-06-26] MEDS ORDERED: EPOETIN ALFA 2,000 UNITS/1 ML VIAL IVPUSH ONE (12:22)
[2016-06-26] MEDS ORDERED: LIDOCAINE HCL 1%, 10 MG/ML (20ML VIAL) ONE (13:08)
[2016-06-26] MEDS ORDERED: HEPARIN NA (PORCINE) 5,000 UNITS/ML 1ML VIAL ONE (13:08)
[2016-06-26] MEDS ORDERED: MIDAZOLAM HCL 2 MG/2 ML SINGLE DOSE VIAL ONE (14:26)
[2016-06-26] MEDS ORDERED: LIDOCAINE HCL 1%, 10 MG/ML (20ML VIAL) IJ ONE ×2 (15:16)
--- NOTE | 2016-06-26 15:46 | OP ---
Operative Note - Note: Operative Date: 06/26/16 Pre-Operative Diagnosis: ESRD Operation: Insertion of permacath Post-Operative Diagnosis: Same as Pre-op Surgeon: Carlyle Batres Anesthesia: Fractional Estimated Blood Loss (mls): 10 Operative Report Dictated: Yes
--- NOTE | 2016-06-26 15:54 | PN ---
Teaching Attending Note Name of Resident: Patricio Andrade ATTENDING PHYSICIAN STATEMENT I saw and evaluated the patient. I reviewed the resident's note and discussed the case with the resident. I agree with the resident's findings and plan as documented. SUBJECTIVE: Patient seen and examined in the ICU. On and off BiPAP, more alert and awake. Currently on HD. For Permacath today. OBJECTIVE: Intake & Output 06/23/16 06/24/16 06/25/16 06/26/16 23:59 23:59 23:59 23:59 Intake Total 1224 1068 1238 277 Output Total 80 210 0 395 Balance 0944 651 3997 -118 Weight 224 lb 5 oz 225 lb 15.581 oz 218 lb 4.122 oz 221 lb 11.2 oz Last Vital Signs Temp Pulse Resp BP Pulse Ox 97.3 F L 104 H 28 H 103/82 100 06/26/16 14:00 06/26/16 14:00 06/26/16 14:00 06/26/16 14:00 06/26/16 13:56 Active Medications Acetylcysteine (Mucomyst 20 Oral / Inh Use Only*) 800 mg NEB QIDR [facility] Last Admin: 06/26/16 11:45 Dose: 800 mg Albuterol Sulfate (Ventolin 0.083% Nebulizer Soln -) 1 amp NEB QIDR [facility] Last Admin: 06/26/16 11:45 Dose: 1 amp Bacitracin (Bacitracin -) 1 applic TP BID [facility] Last Admin: 06/26/16 10:12 Dose: 1 applic Brimonidine Tartrate (Alphagan 0.2% -) 1 drop OU BID [facility] Last Admin: 06/26/16 10:12 Dose: 1 drop Collagenase (Santyl -) 1 applic TP BID [facility] Last Admin: 06/26/16 10:13 Dose: 1 applic Furosemide (Lasix Injection -) 80 mg IVPUSH BIDLASIX [facility] Last Admin: 06/26/16 06:30 Dose: Not Given Heparin Sodium (Porcine) (Heparin -) 5,000 unit SQ BID [facility] Last Admin: 06/26/16 10:13 Dose: Not Given Dobutamine HCl 250,000 mcg/ (Sodium Chloride) 250 mls @ 31.98 mls/hr IV TITR [facility]; 5 MCG/KG/MIN PRN Reason: Protocol Last Admin: 06/25/16 11:41 Dose: Not Given Metronidazole (Flagyl 250mg Premixed Ivpb -) 50 mls @ 50 mls/hr IVPB Q8H-IV [facility] Last Admin: 06/26/16 10:11 Dose: 50 mls/hr Ceftriaxone Sodium (Rocephin 1gm Ivpb (Pre-Docked)) 50 mls @ 100 mls/hr IVPB DAILY [facility] Last Admin: 06/26/16 10:11 Dose: 100 mls/hr Famotidine/Sodium Chloride (Pepcid 20 Mg Premixed Ivpb -) 50 mls @ 100 mls/hr IVPB Q48H [facility] Last Admin: 06/26/16 10:11 Dose: 100 mls/hr Insulin Aspart (Novolog Vial Sliding Scale -) 1 vial SQ ACHS [facility] PRN Reason: Protocol Last Admin: 06/26/16 11:47 Dose: Not Given Levothyroxine Sodium (Synthroid Injection -) 25 mcg IVPUSH AM [facility] Last Admin: 06/26/16 06:06 Dose: 25 mcg Morphine Sulfate (Morphine Injection -) 4 mg IVPUSH Q4H PRN PRN Reason: PAIN Last Admin: 06/25/16 01:49 Dose: 4 mg Morphine Sulfate (Morphine Injection -) 2 mg IVPUSH Q4H PRN PRN Reason: PAIN Last Admin: 06/24/16 19:35 Dose: 2 mg Sevelamer Carbonate (Renvela Powder Packet -) 0.8 gm PO TIDCM [facility] Last Admin: 06/26/16 11:47 Dose: Not Given Silver Sulfadiazine (Silvadene -) 1 applic TP BID [facility] Last Admin: 06/26/16 10:25 Dose: 1 applic Gen: more alert, awake Heart: tachycardic, regular Lung: decreased breath sounds on right Abd: soft, nontender Ext: decreasing edema Laboratory Results - last 24 hr 06/25/16 06/25/16 06/26/16 16:33 22:36 05:15 WBC 6.1 RBC 2.72 L Hgb 7.9 L Hct 23.9 L MCV 87.8 MCHC 33.1 RDW 17.4 H Plt Count 95 L MPV 8.4 D Neutrophils % 82.5 Lymphocytes % 3.4 L Monocytes % 13.0 H Eosinophils % 0.6 Basophils % 0.5 Puncture Site ABG pH ABG pCO2 at Pt Temp ABG pO2 at Pt Temp ABG HCO3 ABG O2 Sat (Measured) ABG O2 Content ABG Base Excess Frankie Test O2 Delivery Device Oxygen Flow Rate Vent Mode Vent Rate Mechanical Rate PEEP Pressure Support Vent Sodium Potassium Chloride Carbon Dioxide Anion Gap BUN Creatinine Creat Clearance w eGFR POC Glucometer 147.54244 173.70629 Random Glucose Calcium Total Bilirubin AST ALT Alkaline Phosphatase Total Protein Albumin 06/26/16 06/26/16 06/26/16 05:15 05:43 07:20 WBC RBC Hgb Hct MCV MCHC RDW Plt Count MPV Neutrophils % Lymphocytes % Monocytes % Eosinophils % Basophils % Puncture Site Right radial ABG pH 7.33 L ABG pCO2 at Pt Temp 49.3 H ABG pO2 at Pt Temp 184.0 H* D ABG HCO3 25.5 ABG O2 Sat (Measured) 99.7 H* ABG O2 Content 11.3 L ABG Base Excess 0.1 Frankie Test Positive O2 Delivery Device Bipap Oxygen Flow Rate 60% Vent Mode S/t Vent Rate 16 Mechanical Rate Bipap PEEP 0.0 Pressure Support Vent 16/6 Sodium 141 Potassium 4.0 Chloride 102 Carbon Dioxide 29 Anion Gap 10 BUN 57 H Creatinine 3.7 H D Creat Clearance w eGFR 16.05 POC Glucometer 97.48386 Random Glucose 69 L D Calcium 7.7 L Total Bilirubin 0.9 AST 16 ALT 15 Alkaline Phosphatase 79 Total Protein 5.5 L Albumin 1.7 L 06/26/16 11:45 WBC RBC Hgb Hct MCV MCHC RDW Plt Count MPV Neutrophils % Lymphocytes % Monocytes % Eosinophils % Basophils % Puncture Site ABG pH ABG pCO2 at Pt Temp ABG pO2 at Pt Temp ABG HCO3 ABG O2 Sat (Measured) ABG O2 Content ABG Base Excess Frankie Test O2 Delivery Device Oxygen Flow Rate Vent Mode Vent Rate Mechanical Rate PEEP Pressure Support Vent Sodium Potassium Chloride Carbon Dioxide Anion Gap BUN Creatinine Creat Clearance w eGFR POC Glucometer 95.53119 Random Glucose Calcium Total Bilirubin AST ALT Alkaline Phosphatase Total Protein Albumin ASSESSMENT AND PLAN: s/p Acute Respiratory Failure Back/Shoulder Cellulitis/Abscess Septic vs Cardiogenic Shock Acute on Chronic Renal Failure Metabolic Acidosis Acute on Chronic LV Systolic Heart Failure Atrial Fibrillation COPD Hyponatremia Atelectasis improving - HD per Renal - Currently off dobutamine drip - keep net negative fluid balance - For permacath placement - s/p antibiotic course - O2 to keep SpO2 >90% - aspiration precautions - inhaled bronchodilators with mucolytics - PO as tolerated - DVT/GI prophylaxis - continue ICU monitoring - Chest PT / pulmonary toilet Dr Farrell Critical care time spent reviewing chart, evaluating patient and formulating plan 35 min
--- NOTE | 2016-06-26 16:11 | PN ---
Progress Note, Physician History of Present Illness: Pt seen and examined at bedside this morning. Pt tolerated HD. He is scheduled for a permacath today. - Current Medication List Current Medications: Active Medications Acetylcysteine (Mucomyst 20 Oral / Inh Use Only*) 800 mg NEB QIDR [facility] Last Admin: 06/26/16 11:45 Dose: 800 mg Albuterol Sulfate (Ventolin 0.083% Nebulizer Soln -) 1 amp NEB QIDR [facility] Last Admin: 06/26/16 11:45 Dose: 1 amp Bacitracin (Bacitracin -) 1 applic TP BID [facility] Last Admin: 06/26/16 10:12 Dose: 1 applic Brimonidine Tartrate (Alphagan 0.2% -) 1 drop OU BID [facility] Last Admin: 06/26/16 10:12 Dose: 1 drop Collagenase (Santyl -) 1 applic TP BID [facility] Last Admin: 06/26/16 10:13 Dose: 1 applic Furosemide (Lasix Injection -) 80 mg IVPUSH BIDLASIX [facility] Last Admin: 06/26/16 15:55 Dose: 80 mg Heparin Sodium (Porcine) (Heparin -) 5,000 unit SQ BID [facility] Last Admin: 06/26/16 10:13 Dose: Not Given Dobutamine HCl 250,000 mcg/ (Sodium Chloride) 250 mls @ 31.98 mls/hr IV TITR [facility]; 5 MCG/KG/MIN PRN Reason: Protocol Last Admin: 06/25/16 11:41 Dose: Not Given Metronidazole (Flagyl 250mg Premixed Ivpb -) 50 mls @ 50 mls/hr IVPB Q8H-IV [facility] Last Admin: 06/26/16 10:11 Dose: 50 mls/hr Ceftriaxone Sodium (Rocephin 1gm Ivpb (Pre-Docked)) 50 mls @ 100 mls/hr IVPB DAILY [facility] Last Admin: 06/26/16 10:11 Dose: 100 mls/hr Famotidine/Sodium Chloride (Pepcid 20 Mg Premixed Ivpb -) 50 mls @ 100 mls/hr IVPB Q48H [facility] Last Admin: 06/26/16 10:11 Dose: 100 mls/hr Insulin Aspart (Novolog Vial Sliding Scale -) 1 vial SQ ACHS [facility] PRN Reason: Protocol Last Admin: 06/26/16 11:47 Dose: Not Given Levothyroxine Sodium (Synthroid Injection -) 25 mcg IVPUSH AM [facility] Last Admin: 06/26/16 06:06 Dose: 25 mcg Morphine Sulfate (Morphine Injection -) 4 mg IVPUSH Q4H PRN PRN Reason: PAIN Last Admin: 06/25/16 01:49 Dose: 4 mg Morphine Sulfate (Morphine Injection -) 2 mg IVPUSH Q4H PRN PRN Reason: PAIN Last Admin: 06/24/16 19:35 Dose: 2 mg Sevelamer Carbonate (Renvela Powder Packet -) 0.8 gm PO TIDCM [facility] Last Admin: 06/26/16 11:47 Dose: Not Given Silver Sulfadiazine (Silvadene -) 1 applic TP BID [facility] Last Admin: 06/26/16 10:25 Dose: 1 applic - Objective Vital Signs: Vital Signs Temperature 97.3 F L 06/26/16 14:00 Pulse Rate 104 H 06/26/16 14:00 Respiratory Rate 28 H 06/26/16 14:00 Blood Pressure 103/82 06/26/16 14:00 O2 Sat by Pulse Oximetry (%) 100 06/26/16 13:56 Constitutional: Yes: Calm Eyes: Yes: Conjunctiva Clear HENT: Yes: Atraumatic Neck: Yes: Supple Cardiovascular: Yes: S1, S2 Respiratory: Yes: On Nasal O2, Rhonchi Gastrointestinal: Yes: Soft Genitourinary: Yes: López Present Musculoskeletal: Yes: Muscle Weakness Edema: Yes Edema: LLE: 2+, RLE: 2+ Labs: CBC, BMP 06/26/16 05:15 06/26/16 05:15 INR, PTT INR 1.85 (0.82-1.09) H 06/11/16 05:15 Fibrinogen 405.0 mg/dL (238-498) 06/10/16 04:45 Problem List - Problems (1) Acute hyperkalemia Code(s): E87.5 - HYPERKALEMIA (2) Hyponatremia Code(s): E87.1 - HYPO-OSMOLALITY AND HYPONATREMIA (3) Hypotension Code(s): I95.9 - HYPOTENSION, UNSPECIFIED Qualifiers: Qualified Code(s): I95.89 - Other hypotension (4) Acute on chronic renal failure Code(s): N17.9 - ACUTE KIDNEY FAILURE, UNSPECIFIED N18.9 - CHRONIC KIDNEY DISEASE, UNSPECIFIED (5) Anemia Code(s): D64.9 - ANEMIA, UNSPECIFIED Qualifiers: Qualified Code(s): N18.9 - Chronic kidney disease, unspecified; D63.1 - Anemia in chronic kidney disease (6) COPD (chronic obstructive pulmonary disease) Code(s): J44.9 - CHRONIC OBSTRUCTIVE PULMONARY DISEASE, UNSPECIFIED (7) Congestive heart failure (CHF) Code(s): I50.9 - HEART FAILURE, UNSPECIFIED Qualifiers: Qualified Code(s): I50.22 - Chronic systolic (congestive) heart failure (8) DMII (diabetes mellitus, type 2) Code(s): E11.9 - TYPE 2 DIABETES MELLITUS WITHOUT COMPLICATIONS (9) CKD (chronic kidney disease) Code(s): N18.9 - CHRONIC KIDNEY DISEASE, UNSPECIFIED Assessment/Plan Current Medications Generic Name Dose Route Start Last Admin Trade Name Freq PRN Reason Stop Dose Admin Acetylcysteine 800 mg 06/24/16 12:00 06/26/16 11:45 Mucomyst 20 Oral / Inh Use Only* NEB 800 mg QIDR [facility] Administration Albuterol Sulfate 1 amp 06/24/16 12:00 06/26/16 11:45 Ventolin 0.083% Nebulizer Soln - NEB 1 amp QIDR [facility] Administration Bacitracin 1 applic 06/23/16 22:00 06/26/16 10:12 Bacitracin - TP 1 applic BID [facility] Administration Brimonidine Tartrate 1 drop 06/10/16 10:00 06/26/16 10:12 Alphagan 0.2% - OU 1 drop BID [facility] Administration Collagenase 1 applic 06/13/16 22:00 06/26/16 10:13 Santyl - TP 1 applic BID [facility] Administration Furosemide 80 mg 06/23/16 14:00 06/26/16 15:55 Lasix Injection - IVPUSH 80 mg BIDLASIX [facility] Administration Heparin Sodium (Porcine) 5,000 unit 06/20/16 22:00 06/26/16 10:13 Heparin - SQ Not Given BID [facility] Dobutamine HCl 250,000 mcg/ 250 mls @ 31.98 mls/hr 06/15/16 11:00 06/25/16 11: 41 Sodium Chloride IV Not Given TITR [facility] Protocol 5 MCG/KG/MIN Metronidazole 50 mls @ 50 mls/hr 06/20/16 10:00 06/26/16 10:11 Flagyl 250mg Premixed Ivpb - IVPB 50 mls/hr Q8H-IV [facility] Administration Ceftriaxone Sodium 50 mls @ 100 mls/hr 06/21/16 10:00 06/26/16 10:11 Rocephin 1gm Ivpb (Pre-Docked) IVPB 100 mls/hr DAILY [facility] Administration Famotidine/Sodium Chloride 50 mls @ 100 mls/hr 06/22/16 10:45 06/26/16 10:11 Pepcid 20 Mg Premixed Ivpb - IVPB 100 mls/hr Q48H [facility] Administration Insulin Aspart 1 vial 06/10/16 16:30 06/26/16 11:47 Novolog Vial Sliding Scale - SQ Not Given ACHS [facility] Protocol Levothyroxine Sodium 25 mcg 06/10/16 07:00 06/26/16 06:06 Synthroid Injection - IVPUSH 25 mcg AM [facility] Administration Morphine Sulfate 4 mg 06/24/16 19:40 06/25/16 01:49 Morphine Injection - IVPUSH 4 mg Q4H PRN Administration PAIN Morphine Sulfate 2 mg 06/24/16 19:44 06/24/16 19:35 Morphine Injection - IVPUSH 2 mg Q4H PRN Administration PAIN Sevelamer Carbonate 0.8 gm 06/15/16 12:50 06/26/16 11:47 Renvela Powder Packet - PO Not Given TIDCM [facility] Silver Sulfadiazine 1 applic 06/17/16 22:00 06/26/16 10:25 Silvadene - TP 1 applic BID [facility] Administration Impression 1. CASE on CKD 2. sepsis with shock 3. cellulitis/abscess of back 4. CHF acute 5. hypothyroidism 6. hyperlipidemia 7. COPD 8. htn 9. a-fib 10. hyponatremia - isoosmolar 11. acute respiratory failure requiring intubation Plan - pt was dialyzed today - he is schedule for permacath - cont oxygen and monitor pulse ox - cont wound care - will follow - urine output is starting to lemon picker Dr Martinez
[2016-06-26] MEDS ORDERED: morphine CARPU-JECT 2 MG/1 ML DISP.SYRIN IVPUSH PRN (16:28)
[2016-06-26] MEDS ORDERED: DOBUTAMINE HCL 250,000 MCG in SODIUM CHLORIDE 230 ML IV SCH (16:28)
[2016-06-26] MEDS ORDERED: morphine CARPU-JECT 4 MG/1 ML DISP.SYRIN IVPUSH PRN (16:28)
--- NOTE | 2016-06-26 17:04 | PN ---
Physical Exam: SUBJECTIVE: Patient seen and examined patient lying comfortably in bed. patient is posted for permacath, patient npo swelling has decreased on legs. patient on bipap will keep patient on bipap in night and in day keep him on high flow. OBJECTIVE: Vital Signs Period Temp Pulse Resp BP Sys/Hubbard Pulse Ox Last 24 Hr 97.3 F-98.8 F 100-106 17-37 90-131/61-82 92-100 GENERAL: The patient is awake, alert, oriented HEAD: Normal with no signs of trauma. EYES: Pupils equal, round and reactive to light, NECK no lymphadenopathy LUNGS:b/l air entry present, diffuse ronchi, no wheez, pick line cath in situ, dialysis cath in situ. HEART: s1s2 normal, ABDOMEN: Soft, nontender, not distended, normoactive bowel sounds, no guarding, no rebound, no masses. scrotal and penile swelling present UPPER EXTREMITIES: 2+ pulses, warm, well-perfused. No cyanosis. No clubbing. Cap refill <2 seconds. .pedal edema decreased LOWER EXTREMITIES: multiple ulcers resent on b/l lower limb, pitting edema decreased Laboratory Results - last 24 hr 06/25/16 06/26/16 06/26/16 22:36 05:15 05:15 WBC 6.1 RBC 2.72 L Hgb 7.9 L Hct 23.9 L MCV 87.8 MCHC 33.1 RDW 17.4 H Plt Count 95 L MPV 8.4 D Neutrophils % 82.5 Lymphocytes % 3.4 L Monocytes % 13.0 H Eosinophils % 0.6 Basophils % 0.5 Puncture Site ABG pH ABG pCO2 at Pt Temp ABG pO2 at Pt Temp ABG HCO3 ABG O2 Sat (Measured) ABG O2 Content ABG Base Excess Frankie Test O2 Delivery Device Oxygen Flow Rate Vent Mode Vent Rate Mechanical Rate PEEP Pressure Support Vent Sodium 141 Potassium 4.0 Chloride 102 Carbon Dioxide 29 Anion Gap 10 BUN 57 H Creatinine 3.7 H D Creat Clearance w eGFR 16.05 POC Glucometer 173.11782 Random Glucose 69 L D Calcium 7.7 L Total Bilirubin 0.9 AST 16 ALT 15 Alkaline Phosphatase 79 Total Protein 5.5 L Albumin 1.7 L 06/26/16 06/26/16 06/26/16 05:43 07:20 11:45 WBC RBC Hgb Hct MCV MCHC RDW Plt Count MPV Neutrophils % Lymphocytes % Monocytes % Eosinophils % Basophils % Puncture Site Right radial ABG pH 7.33 L ABG pCO2 at Pt Temp 49.3 H ABG pO2 at Pt Temp 184.0 H* D ABG HCO3 25.5 ABG O2 Sat (Measured) 99.7 H* ABG O2 Content 11.3 L ABG Base Excess 0.1 Frankie Test Positive O2 Delivery Device Bipap Oxygen Flow Rate 60% Vent Mode S/t Vent Rate 16 Mechanical Rate Bipap PEEP 0.0 Pressure Support Vent 16/6 Sodium Potassium Chloride Carbon Dioxide Anion Gap BUN Creatinine Creat Clearance w eGFR POC Glucometer 97.67444 95.90126 Random Glucose Calcium Total Bilirubin AST ALT Alkaline Phosphatase Total Protein Albumin Active Medications Generic Name Dose Route Start Last Admin Trade Name Freq PRN Reason Stop Dose Admin Acetylcysteine 800 mg 06/26/16 18:00 Mucomyst 20 Oral / Inh Use Only* NEB QIDR [facility] Albuterol Sulfate 1 amp 06/26/16 18:00 Ventolin 0.083% Nebulizer Soln - NEB QIDR [facility] Bacitracin 1 applic 06/26/16 22:00 Bacitracin - TP BID [facility] Brimonidine Tartrate 1 drop 06/26/16 22:00 Alphagan 0.2% - OU BID [facility] Collagenase 1 applic 06/26/16 22:00 Santyl - TP BID [facility] Furosemide 80 mg 06/27/16 06:00 Lasix Injection - IVPUSH BIDLASIX [facility] Heparin Sodium (Porcine) 5,000 unit 06/26/16 22:00 Heparin - SQ BID [facility] Dobutamine HCl 250,000 mcg/ 250 mls @ 31.98 mls/hr 06/26/16 16:28 Sodium Chloride IV TITR [facility] Protocol 5 MCG/KG/MIN Ceftriaxone Sodium 50 mls @ 100 mls/hr 06/27/16 10:00 Rocephin 1gm Ivpb (Pre-Docked) IVPB DAILY [facility] Metronidazole 50 mls @ 50 mls/hr 06/26/16 18:00 Flagyl 250mg Premixed Ivpb - IVPB Q8H-IV [facility] Famotidine/Sodium Chloride 50 mls @ 100 mls/hr 06/28/16 10:45 Pepcid 20 Mg Premixed Ivpb - IVPB Q48H [facility] Insulin Aspart 1 vial 06/26/16 16:30 Novolog Vial Sliding Scale - SQ ACHS [facility] Protocol Levothyroxine Sodium 25 mcg 06/27/16 07:00 Synthroid Injection - IVPUSH AM [facility] Morphine Sulfate 2 mg 06/26/16 16:28 Morphine Injection - IVPUSH Q4H PRN PAIN Morphine Sulfate 4 mg 06/26/16 16:28 Morphine Injection - IVPUSH Q4H PRN PAIN Sevelamer Carbonate 0.8 gm 06/26/16 17:30 Renvela Powder Packet - PO TIDCM [facility] Silver Sulfadiazine 1 applic 06/26/16 22:00 Silvadene - TP BID [facility] ASSESSMENT/PLAN: shock afebrile, wbc decreased , patient could have septic shock with cardiogenic shock monitor vitals monitor intake/ output, try to keep negative balance, off dobutamin MAP > 65 sputum : mrsa + on ceftriaxone/ vanco/ flagyl as per id hyponatremia resolved na 140 abdiaziz on ckd HD as per nephrology avoid nephrotoxic drugs nephrology on case on lasix 80mg bid patient will get permacath tomorrow Acute respiratory failure with right side atelectasis keep right side up neb with mucomist and albuterol chest physiotherapy on bipap , keep spo2 .> 90 use bipap in night and hiflow in morning Hyperkalemia resolved k 3.5 on hd acute on chronic LV heart failure avoid Iv fluid daily weight maintain negative balance. on laisx 80 q12h monitor IO LV systolic function severly reduced, LV global hypokinesia cardiology on case lactic acidosis improved hypothermia on hector hugger prn h/o cad, A flutter/ fibrillation , chf, global hypokinesia alaquis on hold due to anemia, cardiology on case last echo on 06/10 ef 28 and global hypokinesia anemia hb 8.0 stable will give blood during hd h/o copd not active on albuterol DM on sliding scale follow bgm b/l lower leg ulcer venous ulcer vascular sugery on case sanyl dressing dyllan bandage h/o hypothyroid on synthyroid fluid ; avoid IV fluid electrolyte ; repeat in am nutrition ; diet as per dietary recommendation dvt pro on sq heparin gi pro : on pepcid patient is full code. chest physiotherapy, physical therapy, try to get him out of chair dispo : admit in icu Visit type - Emergency Visit Emergency Visit: Yes ED Registration Date: 06/10/16 Care time: The patient presented to the Emergency Department on the above date and was hospitalized for further evaluation of their emergent condition. - New Patient This patient is new to me today: No - Critical Care Critical Care patient: Yes Total Critical Care Time (in minutes): 45 Critical Care Statement: The care of this patient involved high complexity decision making to prevent further life threatening deterioration of the patient 's condition and/or to evalute & treat vital organ system(s) failure or risk of failure.
--- NOTE | 2016-06-26 17:37 | OP ---
DATE OF OPERATION: 06/26/2016 PREOPERATIVE DIAGNOSIS: End-stage renal disease. POSTOPERATIVE DIAGNOSIS: End-stage renal disease. PROCEDURE: Insertion PermCath. SURGEON: Carlyle Sarmiento D.O. ANESTHESIA: Fractional. BLOOD LOSS: 10 mL. INDICATION: The patient is a 76-year-old male that is in the intensive care unit with sepsis. For some time in the ICU, now has got acute renal failure and needs dialysis catheter replacement. Patient was consented for the procedure understanding all risks, benefits, and alternatives and then taken to the operating room. DESCRIPTION OF PROCEDURE: Once in the operating room, patient was laid on the operating table in a supine manner, and the area of the left side of the neck and chest prepped and draped in a sterile surgical manner. Under ultrasound guidance, we visualized the right internal jugular vein and 10 mL of lidocaine 1% was injected there. We then took our Micropuncture needle and punctured the left internal jugular vein and a Micropuncture wire was inserted. Under fluoroscopy micropuncture sheath was inserted and a 0.035 floppy guidewire was inserted under fluoroscopy. We then injected 10 mL of lidocaine 1% below the clavicle. We then used an 11 blade 1-cm incision at the puncture site. We then used a 15 blade, we made a 1-cm incision below the clavicle. We then tunneled the PermCath up to the puncture site. We then placed our breakaway sheath over the guidewire into the vein under fluoroscopy. Inner cannula and guidewire were removed. Catheter was placed inside the sheath. The sheath was broken away as the catheter was broken away. Under fluoroscopy we could see the neck and the tip of the catheter was located outside the right atrium. We marleny back on each port of the catheter. There was good flow. Heparinized saline was injected and 2000 units of IV heparin were injected into each port. 4-0 Biosyn was used and 2 simple stitches were placed at the puncture site. 2-0 nylon was used to attach the catheter to the skin. Biopatch, Steri-Strips, and Tegaderms were placed. The patient tolerated the procedure without complications. Patient was transferred to PACU in stable condition where chest x-ray will be ordered. CARLYLE SARMIENTO DO [id number]
[2016-06-26] MEDS ORDERED: DOBUTAMINE 250 MG/D5W - 250 ML ONE (17:50)
[2016-06-27] MEDS: METRONIDAZOLE PREMIXED IVPB 50 ML IVPB SCH ×3 (02:35→17:50)
[2016-06-27] MEDS ORDERED: PT OWN MED DRAWER 7, Y5N ONE ×3 (02:48→17:45)
[2016-06-27 06:29] LABS: BASOPHIL 1.1 % (0-2.0); EOSINOPHIL 0.7 % (0-4.5); MCHC 32.8 g/dl (32.0-35.9); MEAN CELL VOLUME 88.5 fl (80-96); MEAN PLT VOLUME 8.6 fl (7.5-11.1); NEUTROPHILS 78.6 % (42.8-82.8); PLATELET COUNT 82 K/MM3 (134-434); RDW 17.2 % (11.9-15.9); WHITE BLOOD COUNT 3.8 K/mm3 (4.0-10.0)
[2016-06-27] MEDS: ACETYLCYSTEINE 20% 200MG/ML 4 ML VIAL *FOR ORAL / INH USE ONLY NEB SCH ×4 (06:30→23:59)
[2016-06-27] MEDS: ALBUTEROL SO4 0.083% IH SOL 2.5 MG/3 ML VIAL.NEB. NEB SCH ×4 (06:30→23:59)
[2016-06-27] MEDS: LEVOTHYROXINE SODIUM 100 MCG VIAL IVPUSH SCH (06:31)
[2016-06-27 06:32] LABS: CALCIUM 7.8 mg/dL (8.5-10.1); COCKROFT - GAULT 29.79
[2016-06-27] MEDS: FUROSEMIDE 40 MG/4 ML INJECTABLE VIAL IVPUSH SCH ×2 (06:32→14:49)
[2016-06-27] MEDS: INSULIN SLIDING SCALE (NOVOLOG) 1 VIAL SQ SCH ×4 (06:33→22:18)
--- NOTE | 2016-06-27 08:20 | PN ---
Progress Note, Physician Chief Complaint: ID Vancomycin Ceftriaxone Metronidazole Remains stable overnight Day 7 antibiotics - Current Medication List Current Medications: Active Medications Acetylcysteine (Mucomyst 20 Oral / Inh Use Only*) 800 mg NEB QIDR [facility] Last Admin: 06/27/16 06:30 Dose: 800 mg Albuterol Sulfate (Ventolin 0.083% Nebulizer Soln -) 1 amp NEB QIDR [facility] Last Admin: 06/27/16 06:30 Dose: 1 amp Bacitracin (Bacitracin -) 1 applic TP BID [facility] Last Admin: 06/26/16 22:12 Dose: 1 applic Brimonidine Tartrate (Alphagan 0.2% -) 1 drop OU BID [facility] Last Admin: 06/26/16 22:11 Dose: 1 drop Collagenase (Santyl -) 1 applic TP BID [facility] Last Admin: 06/26/16 23:20 Dose: 1 applic Furosemide (Lasix Injection -) 80 mg IVPUSH BIDLASIX [facility] Last Admin: 06/27/16 06:32 Dose: Not Given Heparin Sodium (Porcine) (Heparin -) 5,000 unit SQ BID [facility] Last Admin: 06/26/16 22:12 Dose: 5,000 unit Ceftriaxone Sodium (Rocephin 1gm Ivpb (Pre-Docked)) 50 mls @ 100 mls/hr IVPB DAILY [facility] Metronidazole (Flagyl 250mg Premixed Ivpb -) 50 mls @ 50 mls/hr IVPB Q8H-IV [facility] Last Admin: 06/27/16 02:35 Dose: 50 mls/hr Famotidine/Sodium Chloride (Pepcid 20 Mg Premixed Ivpb -) 50 mls @ 100 mls/hr IVPB Q48H [facility] Insulin Aspart (Novolog Vial Sliding Scale -) 1 vial SQ ACHS [facility] PRN Reason: Protocol Last Admin: 06/27/16 06:33 Dose: Not Given Levothyroxine Sodium (Synthroid Injection -) 25 mcg IVPUSH AM [facility] Last Admin: 06/27/16 06:31 Dose: 25 mcg Morphine Sulfate (Morphine Injection -) 2 mg IVPUSH Q4H PRN PRN Reason: PAIN Morphine Sulfate (Morphine Injection -) 4 mg IVPUSH Q4H PRN PRN Reason: PAIN Last Admin: 06/26/16 23:45 Dose: 4 mg Sevelamer Carbonate (Renvela Powder Packet -) 0.8 gm PO TIDCM [facility] Last Admin: 06/26/16 17:53 Dose: 0.8 gm Silver Sulfadiazine (Silvadene -) 1 applic TP BID [facility] Last Admin: 06/26/16 22:11 Dose: 1 applic - Objective Vital Signs: Vital Signs Temperature 97.2 F L 06/27/16 06:00 Pulse Rate 97 H 06/27/16 08:00 Respiratory Rate 25 H 06/27/16 08:06 Blood Pressure 98/70 06/27/16 08:00 O2 Sat by Pulse Oximetry (%) 99 06/27/16 08:06 Cardiovascular: Yes: S1, S2, Other (Central line and dialysis catheter) Gastrointestinal: Yes: WNL, Normal Bowel Sounds, Soft. No: Tenderness Extremities: Yes: Other (Extensive wounds) Integumentary: Yes: Pressure Ulcer Labs: CBC, BMP 06/27/16 05:15 06/27/16 05:15 INR, PTT INR 1.85 (0.82-1.09) H 06/11/16 05:15 Fibrinogen 405.0 mg/dL (238-498) 06/10/16 04:45 Assessment/Plan Microbiology 06/18/16 17:00 Urine - Urine López Urine Culture - Final NO GROWTH OBTAINED 06/18/16 17:00 Sputum - Endotrachea Suction/Ventilator Gram Stain - Final 06/18/16 17:00 Sputum - Endotrachea Suction/Ventilator Sputum Culture - Final S Aureus 06/18/16 17:00 Blood - Picc Line Blood Culture - Final NO GROWTH AFTER 5 DAYS INCUBATION 06/18/16 15:35 Blood - Peripheral Venous Blood Culture - Final NO GROWTH AFTER 5 DAYS INCUBATION Laboratory Tests 06/27/16 05:15 WBC 3.8 L D Hgb 7.5 L Plt Count 82 L Assessment Sepsis syndrome Acute renal failure Opacified hemithorax Plan Today is day 7 therapy antibiotic Discussed with Dr Farrell re whether pt can be mobilized ( atalectasis) Will stop antibiotics Maintain isolation MRSA
[2016-06-27] MEDS: SEVELAMER CARBONATE 0.8 GM POWDER PACKET PO SCH ×3 (08:52→17:50)
[2016-06-27] MEDS: BRIMONIDINE TARTRATE 0.2% OPHTHALMIC 5 ML BOTTLE OU SCH ×2 (09:27→22:16)
[2016-06-27] MEDS: COLLAGENASE CLOSTRIDIUM HIST. 30 GRAMS TUBE TP SCH ×2 (09:28→22:17)
[2016-06-27] MEDS: SILVER SULFADIAZINE 1% TOP CREAM 50 GM JAR TP SCH ×2 (09:28→22:18)
[2016-06-27] MEDS: BACITRACIN 30 GM TUBE TOPICAL OINTMENT TP SCH ×2 (09:29→22:17)
[2016-06-27] MEDS: CEFTRIAXONE 50 ML IVPB SCH (09:29)
[2016-06-27] MEDS: HEPARIN NA (PORCINE) 5,000 UNITS/ML 1ML VIAL SQ SCH ×2 (09:29→22:16)
--- NOTE | 2016-06-27 12:25 | PN ---
Physical Exam: SUBJECTIVE: Patient seen and examined patient lying comfortably in bed. patient is posted for permacath, patient npo swelling has decreased on legs. patient on bipap will keep patient on bipap in night and in day keep him on high flow. nasal trumpet was inserted, so that deep sup suction can be done OBJECTIVE: Vital Signs Period Temp Pulse Resp BP Sys/Hubbard Pulse Ox Last 24 Hr 97.2 F-97.6 F 97-104 18-32 94-116/47-88 95-100 GENERAL: The patient is awake, alert, oriented HEAD: Normal with no signs of trauma. EYES: Pupils equal, round and reactive to light, NECK no lymphadenopathy LUNGS:no air entry on right side, left side air entry present, no wheez, no rales. HEART: s1s2 normal, ABDOMEN: Soft, nontender, not distended, normoactive bowel sounds, no guarding, no rebound, no masses. scrotal and penile swelling present UPPER EXTREMITIES: 2+ pulses, warm, well-perfused. No cyanosis. No clubbing. Cap refill <2 seconds. .pedal edema decreased LOWER EXTREMITIES: multiple ulcers resent on b/l lower limb, pitting edema decreased Laboratory Results - last 24 hr 06/26/16 06/26/16 06/27/16 17:07 22:02 05:15 WBC 3.8 L D RBC 2.59 L Hgb 7.5 L Hct 22.9 L MCV 88.5 MCHC 32.8 RDW 17.2 H Plt Count 82 L MPV 8.6 Neutrophils % 78.6 Lymphocytes % 5.1 L D Monocytes % 14.5 H Eosinophils % 0.7 Basophils % 1.1 Sodium Potassium Chloride Carbon Dioxide Anion Gap BUN Creatinine POC Glucometer 108.96909 98.47362 Random Glucose Calcium 06/27/16 06/27/16 05:15 05:33 WBC RBC Hgb Hct MCV MCHC RDW Plt Count MPV Neutrophils % Lymphocytes % Monocytes % Eosinophils % Basophils % Sodium 144 Potassium 3.5 Chloride 105 Carbon Dioxide 29 Anion Gap 10 BUN 39 H D Creatinine 3.0 H POC Glucometer 107.49905 Random Glucose 67 L Calcium 7.8 L Active Medications Generic Name Dose Route Start Last Admin Trade Name Freq PRN Reason Stop Dose Admin Acetylcysteine 800 mg 06/26/16 18:00 06/27/16 11:55 Mucomyst 20 Oral / Inh Use Only* NEB 800 mg QIDR [facility] Administration Albuterol Sulfate 1 amp 06/26/16 18:00 06/27/16 11:56 Ventolin 0.083% Nebulizer Soln - NEB 1 amp QIDR [facility] Administration Bacitracin 1 applic 06/26/16 22:00 06/27/16 09:29 Bacitracin - TP 1 applic BID [facility] Administration Brimonidine Tartrate 1 drop 06/26/16 22:00 06/27/16 09:27 Alphagan 0.2% - OU 1 drop BID [facility] Administration Collagenase 1 applic 06/26/16 22:00 06/27/16 09:28 Santyl - TP 1 applic BID [facility] Administration Furosemide 80 mg 06/27/16 06:00 06/27/16 06:32 Lasix Injection - IVPUSH Not Given BIDLASIX [facility] Heparin Sodium (Porcine) 5,000 unit 06/26/16 22:00 06/27/16 09:29 Heparin - SQ 5,000 unit BID [facility] Administration Ceftriaxone Sodium 50 mls @ 100 mls/hr 06/27/16 10:00 06/27/16 09:29 Rocephin 1gm Ivpb (Pre-Docked) IVPB 100 mls/hr DAILY [facility] Administration Metronidazole 50 mls @ 50 mls/hr 06/26/16 18:00 06/27/16 09:30 Flagyl 250mg Premixed Ivpb - IVPB 50 mls/hr Q8H-IV [facility] Administration Famotidine/Sodium Chloride 50 mls @ 100 mls/hr 06/28/16 10:45 Pepcid 20 Mg Premixed Ivpb - IVPB Q48H [facility] Insulin Aspart 1 vial 06/26/16 16:30 06/27/16 12:04 Novolog Vial Sliding Scale - SQ Not Given ACHS [facility] Protocol Levothyroxine Sodium 25 mcg 06/27/16 07:00 06/27/16 06:31 Synthroid Injection - IVPUSH 25 mcg AM [facility] Administration Morphine Sulfate 2 mg 06/26/16 16:28 Morphine Injection - IVPUSH Q4H PRN PAIN Morphine Sulfate 4 mg 06/26/16 16:28 06/26/16 23:45 Morphine Injection - IVPUSH 4 mg Q4H PRN Administration PAIN Sevelamer Carbonate 0.8 gm 06/26/16 17:30 04/14/17 12:05 Renvela Powder Packet - PO 0.8 gm TIDCM [facility] Administration Silver Sulfadiazine 1 applic 06/26/16 22:00 06/27/16 09:28 Silvadene - TP 1 applic BID [facility] Administration ASSESSMENT/PLAN: shock improved, off from dobutamin afebrile, wbc decreased , patient could have septic shock with cardiogenic shock monitor vitals off dobutamin MAP > 65 sputum : mrsa + antibiotics stopped, ID on case hyponatremia resolved abdiaziz on ckd HD as per nephrology avoid nephrotoxic drugs nephrology on case permacath in situ Acute respiratory failure with right side atelectasis keep right side up neb with mucomist and albuterol chest physiotherapy on bipap , keep spo2 .> 90 use bipap in night and hiflow in morning try to make patient sit in chair, need repeated chest physiotherapy nasal trumpet was inserted, deep suction can be done Hyperkalemia resolved k 3.5 on hd acute on chronic LV heart failure avoid Iv fluid daily weight maintain negative balance. monitor IO LV systolic function severly reduced, LV global hypokinesia cardiology on case lactic acidosis improved hypothermia on hector hugger prn h/o cad, A flutter/ fibrillation , chf, global hypokinesia alaquis on hold due to anemia, cardiology on case last echo on 06/10 ef 28 and global hypokinesia anemia hb 7.5 will give blood during hd h/o copd not active on albuterol DM on sliding scale follow bgm b/l lower leg ulcer venous ulcer vascular sugery on case sanyl dressing dyllan bandage h/o hypothyroid on synthyroid fluid ; avoid IV fluid electrolyte ; repeat in am nutrition ; diet as per dietary recommendation dvt pro on sq heparin gi pro : on pepcid patient is full code. chest physiotherapy, physical therapy, try to get him out of chair dispo : admit in icu Visit type - Emergency Visit Emergency Visit: Yes ED Registration Date: 06/10/16 Care time: The patient presented to the Emergency Department on the above date and was hospitalized for further evaluation of their emergent condition. - New Patient This patient is new to me today: No - Critical Care Critical Care patient: Yes Total Critical Care Time (in minutes): 45 Critical Care Statement: The care of this patient involved high complexity decision making to prevent further life threatening deterioration of the patient 's condition and/or to evalute & treat vital organ system(s) failure or risk of failure.
--- NOTE | 2016-06-27 16:17 | PN ---
Teaching Attending Note Name of Resident: Patricio Andrade ATTENDING PHYSICIAN STATEMENT I saw and evaluated the patient. I reviewed the resident's note and discussed the case with the resident. I agree with the resident's findings and plan as documented. SUBJECTIVE: Patient seen and examined in the ICU. Remains on and off BiPAP. Currently on HD. S/P Permacath yesterday. CXR: NO change in right atelectasis OBJECTIVE: Intake & Output 06/24/16 06/25/16 06/26/16 06/27/16 23:59 23:59 23:59 23:59 Intake Total 1068 1238 1041 178 Output Total 210 0 395 0 Balance 858 1238 646 178 Weight 225 lb 15.581 oz 218 lb 4.122 oz 221 lb 11.2 oz 218 lb 8 oz Last Vital Signs Temp Pulse Resp BP Pulse Ox 96.0 F L 99 H 23 83/68 100 06/27/16 14:00 06/27/16 14:00 06/27/16 14:00 06/27/16 14:00 06/27/16 13:53 Active Medications Acetylcysteine (Mucomyst 20 Oral / Inh Use Only*) 800 mg NEB QIDR [facility] Last Admin: 06/27/16 11:55 Dose: 800 mg Albuterol Sulfate (Ventolin 0.083% Nebulizer Soln -) 1 amp NEB QIDR [facility] Last Admin: 06/27/16 11:56 Dose: 1 amp Bacitracin (Bacitracin -) 1 applic TP BID [facility] Last Admin: 06/27/16 09:29 Dose: 1 applic Brimonidine Tartrate (Alphagan 0.2% -) 1 drop OU BID [facility] Last Admin: 06/27/16 09:27 Dose: 1 drop Collagenase (Santyl -) 1 applic TP BID [facility] Last Admin: 06/27/16 09:28 Dose: 1 applic Furosemide (Lasix Injection -) 80 mg IVPUSH BIDLASIX [facility] Last Admin: 06/27/16 14:49 Dose: 80 mg Heparin Sodium (Porcine) (Heparin -) 5,000 unit SQ BID [facility] Last Admin: 06/27/16 09:29 Dose: 5,000 unit Ceftriaxone Sodium (Rocephin 1gm Ivpb (Pre-Docked)) 50 mls @ 100 mls/hr IVPB DAILY [facility] Last Admin: 06/27/16 09:29 Dose: 100 mls/hr Metronidazole (Flagyl 250mg Premixed Ivpb -) 50 mls @ 50 mls/hr IVPB Q8H-IV [facility] Last Admin: 06/27/16 09:30 Dose: 50 mls/hr Famotidine/Sodium Chloride (Pepcid 20 Mg Premixed Ivpb -) 50 mls @ 100 mls/hr IVPB Q48H [facility] Insulin Aspart (Novolog Vial Sliding Scale -) 1 vial SQ ACHS [facility] PRN Reason: Protocol Last Admin: 06/27/16 12:04 Dose: Not Given Levothyroxine Sodium (Synthroid Injection -) 25 mcg IVPUSH AM [facility] Last Admin: 06/27/16 06:31 Dose: 25 mcg Morphine Sulfate (Morphine Injection -) 2 mg IVPUSH Q4H PRN PRN Reason: PAIN Morphine Sulfate (Morphine Injection -) 4 mg IVPUSH Q4H PRN PRN Reason: PAIN Last Admin: 06/26/16 23:45 Dose: 4 mg Sevelamer Carbonate (Renvela Powder Packet -) 0.8 gm PO TIDCM [facility] Last Admin: 06/27/16 12:05 Dose: 0.8 gm Silver Sulfadiazine (Silvadene -) 1 applic TP BID [facility] Last Admin: 06/27/16 09:28 Dose: 1 applic Gen: more alert, awake Heart: tachycardic, regular Lung: decreased breath sounds on right Abd: soft, nontender Ext: decreasing edema Laboratory Results - last 24 hr 06/26/16 06/26/16 06/27/16 17:07 22:02 05:15 WBC 3.8 L D RBC 2.59 L Hgb 7.5 L Hct 22.9 L MCV 88.5 MCHC 32.8 RDW 17.2 H Plt Count 82 L MPV 8.6 Neutrophils % 78.6 Lymphocytes % 5.1 L D Monocytes % 14.5 H Eosinophils % 0.7 Basophils % 1.1 Sodium Potassium Chloride Carbon Dioxide Anion Gap BUN Creatinine POC Glucometer 108.26106 98.24147 Random Glucose Calcium 06/27/16 06/27/16 05:15 05:33 WBC RBC Hgb Hct MCV MCHC RDW Plt Count MPV Neutrophils % Lymphocytes % Monocytes % Eosinophils % Basophils % Sodium 144 Potassium 3.5 Chloride 105 Carbon Dioxide 29 Anion Gap 10 BUN 39 H D Creatinine 3.0 H POC Glucometer 107.26793 Random Glucose 67 L Calcium 7.8 L ASSESSMENT AND PLAN: s/p Acute Respiratory Failure Back/Shoulder Cellulitis/Abscess Septic vs Cardiogenic Shock Acute on Chronic Renal Failure Metabolic Acidosis Acute on Chronic LV Systolic Heart Failure Atrial Fibrillation COPD Hyponatremia Atelectasis - HD per Renal - keep net negative fluid balance - s/p antibiotic course - O2 to keep SpO2 >90% - aspiration precautions - inhaled bronchodilators with mucolytics - PO as tolerated - DVT/GI prophylaxis - continue ICU monitoring - Chest PT / pulmonary toilet - Nasal trumpet / suctioning Dr Farrell Critical care time spent reviewing chart, evaluating patient and formulating plan 35 min
--- NOTE | 2016-06-27 16:55 | PN ---
Progress Note, Physician History of Present Illness: Pt seen and examined at bedside. He remains in the ICU. He still requires bipap. He is awake but not at baseline. - Current Medication List Current Medications: Active Medications Acetylcysteine (Mucomyst 20 Oral / Inh Use Only*) 800 mg NEB QIDR [facility] Last Admin: 06/27/16 11:55 Dose: 800 mg Albuterol Sulfate (Ventolin 0.083% Nebulizer Soln -) 1 amp NEB QIDR [facility] Last Admin: 06/27/16 11:56 Dose: 1 amp Bacitracin (Bacitracin -) 1 applic TP BID [facility] Last Admin: 06/27/16 09:29 Dose: 1 applic Brimonidine Tartrate (Alphagan 0.2% -) 1 drop OU BID [facility] Last Admin: 06/27/16 09:27 Dose: 1 drop Collagenase (Santyl -) 1 applic TP BID [facility] Last Admin: 06/27/16 09:28 Dose: 1 applic Furosemide (Lasix Injection -) 80 mg IVPUSH BIDLASIX [facility] Last Admin: 06/27/16 14:49 Dose: 80 mg Heparin Sodium (Porcine) (Heparin -) 5,000 unit SQ BID [facility] Last Admin: 06/27/16 09:29 Dose: 5,000 unit Ceftriaxone Sodium (Rocephin 1gm Ivpb (Pre-Docked)) 50 mls @ 100 mls/hr IVPB DAILY [facility] Last Admin: 06/27/16 09:29 Dose: 100 mls/hr Metronidazole (Flagyl 250mg Premixed Ivpb -) 50 mls @ 50 mls/hr IVPB Q8H-IV [facility] Last Admin: 06/27/16 09:30 Dose: 50 mls/hr Famotidine/Sodium Chloride (Pepcid 20 Mg Premixed Ivpb -) 50 mls @ 100 mls/hr IVPB Q48H [facility] Insulin Aspart (Novolog Vial Sliding Scale -) 1 vial SQ ACHS [facility] PRN Reason: Protocol Last Admin: 06/27/16 12:04 Dose: Not Given Levothyroxine Sodium (Synthroid Injection -) 25 mcg IVPUSH AM [facility] Last Admin: 06/27/16 06:31 Dose: 25 mcg Morphine Sulfate (Morphine Injection -) 2 mg IVPUSH Q4H PRN PRN Reason: PAIN Morphine Sulfate (Morphine Injection -) 4 mg IVPUSH Q4H PRN PRN Reason: PAIN Last Admin: 06/26/16 23:45 Dose: 4 mg Sevelamer Carbonate (Renvela Powder Packet -) 0.8 gm PO TIDCM [facility] Last Admin: 06/27/16 12:05 Dose: 0.8 gm Silver Sulfadiazine (Silvadene -) 1 applic TP BID [facility] Last Admin: 06/27/16 09:28 Dose: 1 applic - Objective Vital Signs: Vital Signs Temperature 96.0 F L 06/27/16 14:00 Pulse Rate 99 H 06/27/16 14:00 Respiratory Rate 23 06/27/16 14:00 Blood Pressure 83/68 06/27/16 14:00 O2 Sat by Pulse Oximetry (%) 100 06/27/16 16:20 Constitutional: Yes: Calm Eyes: Yes: Conjunctiva Clear HENT: Yes: Atraumatic Neck: Yes: Supple Cardiovascular: Yes: S1, S2 Respiratory: Yes: On BiPap Gastrointestinal: Yes: Soft Genitourinary: Yes: López Present, Oliguria Musculoskeletal: Yes: Muscle Weakness Edema: Yes Edema: LLE: 2+, RLE: 2+ Neurological: Yes: Oriented Labs: CBC, BMP 06/27/16 05:15 06/27/16 05:15 INR, PTT INR 1.85 (0.82-1.09) H 06/11/16 05:15 Fibrinogen 405.0 mg/dL (238-498) 06/10/16 04:45 - ....Imaging Chest X-ray: Report Reviewed Problem List - Problems (1) Acute hyperkalemia Code(s): E87.5 - HYPERKALEMIA (2) Hyponatremia Code(s): E87.1 - HYPO-OSMOLALITY AND HYPONATREMIA (3) Hypotension Code(s): I95.9 - HYPOTENSION, UNSPECIFIED Qualifiers: Qualified Code(s): I95.89 - Other hypotension (4) Acute on chronic renal failure Code(s): N17.9 - ACUTE KIDNEY FAILURE, UNSPECIFIED N18.9 - CHRONIC KIDNEY DISEASE, UNSPECIFIED (5) Anemia Code(s): D64.9 - ANEMIA, UNSPECIFIED Qualifiers: Qualified Code(s): N18.9 - Chronic kidney disease, unspecified; D63.1 - Anemia in chronic kidney disease (6) COPD (chronic obstructive pulmonary disease) Code(s): J44.9 - CHRONIC OBSTRUCTIVE PULMONARY DISEASE, UNSPECIFIED (7) Congestive heart failure (CHF) Code(s): I50.9 - HEART FAILURE, UNSPECIFIED Qualifiers: Qualified Code(s): I50.22 - Chronic systolic (congestive) heart failure (8) DMII (diabetes mellitus, type 2) Code(s): E11.9 - TYPE 2 DIABETES MELLITUS WITHOUT COMPLICATIONS (9) CKD (chronic kidney disease) Code(s): N18.9 - CHRONIC KIDNEY DISEASE, UNSPECIFIED Assessment/Plan Current Medications Generic Name Dose Route Start Last Admin Trade Name Freq PRN Reason Stop Dose Admin Acetylcysteine 800 mg 06/26/16 18:00 06/27/16 11:55 Mucomyst 20 Oral / Inh Use Only* NEB 800 mg QIDR [facility] Administration Albuterol Sulfate 1 amp 06/26/16 18:00 06/27/16 11:56 Ventolin 0.083% Nebulizer Soln - NEB 1 amp QIDR [facility] Administration Bacitracin 1 applic 06/26/16 22:00 06/27/16 09:29 Bacitracin - TP 1 applic BID [facility] Administration Brimonidine Tartrate 1 drop 06/26/16 22:00 06/27/16 09:27 Alphagan 0.2% - OU 1 drop BID [facility] Administration Collagenase 1 applic 06/26/16 22:00 06/27/16 09:28 Santyl - TP 1 applic BID [facility] Administration Furosemide 80 mg 06/27/16 06:00 06/27/16 14:49 Lasix Injection - IVPUSH 80 mg BIDLASIX [facility] Administration Heparin Sodium (Porcine) 5,000 unit 06/26/16 22:00 06/27/16 09:29 Heparin - SQ 5,000 unit BID [facility] Administration Ceftriaxone Sodium 50 mls @ 100 mls/hr 06/27/16 10:00 06/27/16 09:29 Rocephin 1gm Ivpb (Pre-Docked) IVPB 100 mls/hr DAILY [facility] Administration Metronidazole 50 mls @ 50 mls/hr 06/26/16 18:00 06/27/16 09:30 Flagyl 250mg Premixed Ivpb - IVPB 50 mls/hr Q8H-IV [facility] Administration Famotidine/Sodium Chloride 50 mls @ 100 mls/hr 06/28/16 10:45 Pepcid 20 Mg Premixed Ivpb - IVPB Q48H [facility] Insulin Aspart 1 vial 06/26/16 16:30 06/27/16 12:04 Novolog Vial Sliding Scale - SQ Not Given ACHS [facility] Protocol Levothyroxine Sodium 25 mcg 06/27/16 07:00 06/27/16 06:31 Synthroid Injection - IVPUSH 25 mcg AM [facility] Administration Morphine Sulfate 2 mg 06/26/16 16:28 Morphine Injection - IVPUSH Q4H PRN PAIN Morphine Sulfate 4 mg 06/26/16 16:28 06/26/16 23:45 Morphine Injection - IVPUSH 4 mg Q4H PRN Administration PAIN Sevelamer Carbonate 0.8 gm 06/26/16 17:30 06/27/16 12:05 Renvela Powder Packet - PO 0.8 gm TIDCM [facility] Administration Silver Sulfadiazine 1 applic 06/26/16 22:00 06/27/16 09:28 Silvadene - TP 1 applic BID [facility] Administration Impression 1. CASE on CKD 2. sepsis with shock 3. cellulitis/abscess of back 4. CHF acute 5. hypothyroidism 6. hyperlipidemia 7. COPD 8. htn 9. a-fib 10. hyponatremia - isoosmolar 11. acute respiratory failure requiring intubation Plan - will arrange for HD tomorrow - it has been difficult to UF volume secondary to hypotension - monitor pulse ox - wound care to legs - monitor in ICU - monitor urine output Dr Martinez
[2016-06-28] MEDS ORDERED: PT OWN MED DRAWER 7, Y5N ONE ×3 (02:22→16:57)
[2016-06-28] MEDS: METRONIDAZOLE PREMIXED IVPB 50 ML IVPB SCH ×3 (02:24→18:03)
[2016-06-28 06:27] LABS: BASOPHIL 0.6 % (0-2.0); MCH 28.6 pg (25.7-33.7); MCHC 32.3 g/dl (32.0-35.9); MEAN CELL VOLUME 88.6 fl (80-96); MEAN PLT VOLUME 8.7 fl (7.5-11.1); NEUTROPHILS 78.9 % (42.8-82.8); PLATELET COUNT 93 K/MM3 (134-434); RDW 17.4 % (11.9-15.9); WHITE BLOOD COUNT 4.4 K/mm3 (4.0-10.0)
[2016-06-28] MEDS: INSULIN SLIDING SCALE (NOVOLOG) 1 VIAL SQ SCH ×4 (06:29→21:33)
[2016-06-28] MEDS: FUROSEMIDE 40 MG/4 ML INJECTABLE VIAL IVPUSH SCH ×2 (06:33→14:57)
[2016-06-28] MEDS: ACETYLCYSTEINE 20% 200MG/ML 4 ML VIAL *FOR ORAL / INH USE ONLY NEB SCH ×4 (06:33→23:41)
[2016-06-28] MEDS: ALBUTEROL SO4 0.083% IH SOL 2.5 MG/3 ML VIAL.NEB. NEB SCH ×4 (06:33→23:42)
[2016-06-28] MEDS: LEVOTHYROXINE SODIUM 100 MCG VIAL IVPUSH SCH (06:34)
[2016-06-28 06:50] LABS: CALCIUM 7.7 mg/dL (8.5-10.1); CREATININE 3.6 mg/dL (0.7-1.3)
[2016-06-28 07:02] LABS: COCKROFT - GAULT 23.75
[2016-06-28] MEDS ORDERED: EPOETIN ALFA 2,000 UNITS/1 ML VIAL IVPUSH ONE (08:00)
[2016-06-28] MEDS ORDERED: HEPARIN NA (PORCINE) 5,000 UNITS/ML 1ML VIAL IVPUSH ONE (08:00)
[2016-06-28] MEDS: SEVELAMER CARBONATE 0.8 GM POWDER PACKET PO SCH ×3 (08:33→18:02)
--- NOTE | 2016-06-28 09:21 | PN ---
Progress Note, Physician History of Present Illness: IN BED WITH DC - Current Medication List Current Medications: Active Medications Acetylcysteine (Mucomyst 20 Oral / Inh Use Only*) 800 mg NEB QIDR [facility] Last Admin: 06/28/16 06:33 Dose: 800 mg Albumin Human (Albumin Human 25%) 12.5 gm IVPB Q30M [facility] Stop: 06/28/16 09:31 Albuterol Sulfate (Ventolin 0.083% Nebulizer Soln -) 1 amp NEB QIDR [facility] Last Admin: 06/28/16 06:33 Dose: 1 amp Bacitracin (Bacitracin -) 1 applic TP BID [facility] Last Admin: 06/27/16 22:17 Dose: 1 applic Brimonidine Tartrate (Alphagan 0.2% -) 1 drop OU BID [facility] Last Admin: 06/27/16 22:16 Dose: 1 drop Collagenase (Santyl -) 1 applic TP BID [facility] Last Admin: 06/27/16 22:17 Dose: 1 applic Furosemide (Lasix Injection -) 80 mg IVPUSH BIDLASIX [facility] Last Admin: 06/28/16 06:33 Dose: 80 mg Heparin Sodium (Porcine) (Heparin -) 5,000 unit SQ BID [facility] Last Admin: 06/27/16 22:16 Dose: 5,000 unit Ceftriaxone Sodium (Rocephin 1gm Ivpb (Pre-Docked)) 50 mls @ 100 mls/hr IVPB DAILY [facility] Last Admin: 06/27/16 09:29 Dose: 100 mls/hr Metronidazole (Flagyl 250mg Premixed Ivpb -) 50 mls @ 50 mls/hr IVPB Q8H-IV [facility] Last Admin: 06/28/16 02:24 Dose: 50 mls/hr Famotidine/Sodium Chloride (Pepcid 20 Mg Premixed Ivpb -) 50 mls @ 100 mls/hr IVPB Q48H [facility] Insulin Aspart (Novolog Vial Sliding Scale -) 1 vial SQ ACHS [facility] PRN Reason: Protocol Last Admin: 06/28/16 06:29 Dose: Not Given Levothyroxine Sodium (Synthroid Injection -) 25 mcg IVPUSH AM [facility] Last Admin: 06/28/16 06:34 Dose: 25 mcg Morphine Sulfate (Morphine Injection -) 2 mg IVPUSH Q4H PRN PRN Reason: PAIN Morphine Sulfate (Morphine Injection -) 4 mg IVPUSH Q4H PRN PRN Reason: PAIN Last Admin: 06/26/16 23:45 Dose: 4 mg Sevelamer Carbonate (Renvela Powder Packet -) 0.8 gm PO TIDCM [facility] Last Admin: 06/28/16 08:33 Dose: 0.8 gm Silver Sulfadiazine (Silvadene -) 1 applic TP BID [facility] Last Admin: 06/27/16 22:18 Dose: 1 applic - Objective Vital Signs: Vital Signs Temperature 98.1 F 06/28/16 06:00 Pulse Rate 99 H 06/28/16 08:00 Respiratory Rate 22 06/28/16 08:21 Blood Pressure 90/66 06/28/16 08:00 O2 Sat by Pulse Oximetry (%) 94 L 06/28/16 08:21 Cardiovascular: Yes: S1, S2 Respiratory: Yes: Diminished, On Nasal O2 Gastrointestinal: Yes: Normal Bowel Sounds, Soft Edema: Yes Labs: CBC, BMP 06/28/16 05:40 06/28/16 05:40 INR, PTT INR 1.85 (0.82-1.09) H 06/11/16 05:15 Fibrinogen 405.0 mg/dL (238-498) 06/10/16 04:45 Problem List - Problems (1) Acute on chronic renal failure Assessment/Plan: RENAL ON BOARD--HD PER RENAL MONITOR Code(s): N17.9 - ACUTE KIDNEY FAILURE, UNSPECIFIED N18.9 - CHRONIC KIDNEY DISEASE, UNSPECIFIED (2) COPD (chronic obstructive pulmonary disease) Assessment/Plan: NEBS O2-NC Code(s): J44.9 - CHRONIC OBSTRUCTIVE PULMONARY DISEASE, UNSPECIFIED (3) Congestive heart failure (CHF) Assessment/Plan: HD--MONITOR FLUID BALANCE CXR--ATELECTASIS Code(s): I50.9 - HEART FAILURE, UNSPECIFIED Qualifiers: Qualified Code(s): I50.22 - Chronic systolic (congestive) heart failure
[2016-06-28] MEDS: CEFTRIAXONE 50 ML IVPB SCH (09:27)
[2016-06-28] MEDS: SILVER SULFADIAZINE 1% TOP CREAM 50 GM JAR TP SCH ×2 (09:28→21:09)
[2016-06-28] MEDS: HEPARIN NA (PORCINE) 5,000 UNITS/ML 1ML VIAL SQ SCH ×2 (09:28→21:09)
[2016-06-28] MEDS: BACITRACIN 30 GM TUBE TOPICAL OINTMENT TP SCH ×2 (09:28→21:09)
[2016-06-28] MEDS: COLLAGENASE CLOSTRIDIUM HIST. 30 GRAMS TUBE TP SCH ×2 (09:28→21:10)
[2016-06-28] MEDS: BRIMONIDINE TARTRATE 0.2% OPHTHALMIC 5 ML BOTTLE OU SCH ×2 (09:29→21:10)
--- NOTE | 2016-06-28 10:33 | PN ---
Progress Note (short form) - Note Progress Note: PULMONARY/CCM Pt seen and examined in the ICU. More comfortable, off BiPAP. No fevers recorded. Last Vital Signs Temp Pulse Resp BP Pulse Ox 98.1 F 99 H 22 90/66 97 06/28/16 06:00 06/28/16 08:00 06/28/16 08:21 06/28/16 08:00 06/28/16 10:04 Intake & Output 06/25/16 06/26/16 06/27/16 06/28/16 23:59 23:59 23:59 23:59 Intake Total 1238 1041 228 70 Output Total 0 395 15 25 Balance 1238 646 213 45 Weight 218 lb 4.122 oz 221 lb 11.2 oz 218 lb 8 oz 212 lb 1.6 oz Gen: less tachypneic Heart: RRR Lung: scattered rhonchi Abd: soft, nontender Ext: decreasing edema CBC, BMP 06/28/16 05:40 06/28/16 05:40 Active Medications Acetylcysteine (Mucomyst 20 Oral / Inh Use Only*) 800 mg NEB QIDR [facility] Last Admin: 06/28/16 06:33 Dose: 800 mg Albuterol Sulfate (Ventolin 0.083% Nebulizer Soln -) 1 amp NEB QIDR [facility] Last Admin: 06/28/16 06:33 Dose: 1 amp Bacitracin (Bacitracin -) 1 applic TP BID [facility] [place] Last Admin: 06/28/16 09:28 Dose: 1 applic Brimonidine Tartrate (Alphagan 0.2% -) 1 drop OU BID [facility] [place] Last Admin: 06/28/16 09:29 Dose: 1 drop Collagenase (Santyl -) 1 applic TP BID [facility] [place] Last Admin: 06/28/16 09:28 Dose: 1 applic Furosemide (Lasix Injection -) 80 mg IVPUSH BIDLASIX [facility] [place] Last Admin: 06/28/16 06:33 Dose: 80 mg Heparin Sodium (Porcine) (Heparin -) 5,000 unit SQ BID [facility] [place] Last Admin: 06/28/16 09:28 Dose: 5,000 unit Ceftriaxone Sodium (Rocephin 1gm Ivpb (Pre-Docked)) 50 mls @ 100 mls/hr IVPB DAILY [facility] Last Admin: 06/28/16 09:27 Dose: 100 mls/hr Metronidazole (Flagyl 250mg Premixed Ivpb -) 50 mls @ 50 mls/hr IVPB Q8H-IV [facility] Last Admin: 06/28/16 09:27 Dose: 50 mls/hr Famotidine/Sodium Chloride (Pepcid 20 Mg Premixed Ivpb -) 50 mls @ 100 mls/hr IVPB Q48H [facility] Insulin Aspart (Novolog Vial Sliding Scale -) 1 vial SQ ACHS [facility] PRN Reason: Protocol Last Admin: 06/28/16 06:29 Dose: Not Given Levothyroxine Sodium (Synthroid Injection -) 25 mcg IVPUSH AM [facility] Last Admin: 06/28/16 06:34 Dose: 25 mcg Morphine Sulfate (Morphine Injection -) 2 mg IVPUSH Q4H PRN PRN Reason: PAIN Morphine Sulfate (Morphine Injection -) 4 mg IVPUSH Q4H PRN PRN Reason: PAIN Last Admin: 06/26/16 23:45 Dose: 4 mg Sevelamer Carbonate (Renvela Powder Packet -) 0.8 gm PO TIDCM [facility] Last Admin: 06/28/16 08:33 Dose: 0.8 gm Silver Sulfadiazine (Silvadene -) 1 applic TP BID [facility] [place] Last Admin: 06/28/16 09:28 Dose: 1 applic A/P s/p Acute Respiratory Failure Back/Shoulder Cellulitis/Abscess Septic vs Cardiogenic Shock Acute on Chronic Renal Failure Metabolic Acidosis Acute on Chronic LV Systolic Heart Failure Atrial Fibrillation COPD Hyponatremia Atelectasis improving - continue lasix per renal - HD per renal - s/p antibiotic course - O2 to keep SpO2 >90% - aspiration precautions - inhaled bronchodilators with mucolytics - PO as tolerated - DVT/GI prophylaxis - continue ICU monitoring critical care time spent reviewing chart, evaluating patient and formulating plan 35 min
[2016-06-28] MEDS: FAMOTIDINE 20 MG/50 ML IVPB 50 ML IVPB SCH (12:00)
[2016-06-28] MEDS: ALBUMIN HUMAN 25% 12.5 GM/50 ML VIAL IVPB SCH (12:45)
--- NOTE | 2016-06-28 18:59 | PN ---
Progress Note, Physician History of Present Illness: Pt seen and examined at bedside. He is tolerating HD so far. He remains on Bipap. - Current Medication List Current Medications: Active Medications Acetylcysteine (Mucomyst 20 Oral / Inh Use Only*) 800 mg NEB QIDR [facility] Last Admin: 06/28/16 12:28 Dose: 800 mg Albuterol Sulfate (Ventolin 0.083% Nebulizer Soln -) 1 amp NEB QIDR [facility] Last Admin: 06/28/16 12:29 Dose: 1 amp Bacitracin (Bacitracin -) 1 applic TP BID [facility] Last Admin: 06/28/16 09:28 Dose: 1 applic Brimonidine Tartrate (Alphagan 0.2% -) 1 drop OU BID [facility] Last Admin: 06/28/16 09:29 Dose: 1 drop Collagenase (Santyl -) 1 applic TP BID [facility] Last Admin: 06/28/16 09:28 Dose: 1 applic Furosemide (Lasix Injection -) 80 mg IVPUSH BIDLASIX [facility] Last Admin: 06/28/16 14:57 Dose: 80 mg Heparin Sodium (Porcine) (Heparin -) 5,000 unit SQ BID [facility] Last Admin: 06/28/16 09:28 Dose: 5,000 unit Ceftriaxone Sodium (Rocephin 1gm Ivpb (Pre-Docked)) 50 mls @ 100 mls/hr IVPB DAILY [facility] Last Admin: 06/28/16 09:27 Dose: 100 mls/hr Metronidazole (Flagyl 250mg Premixed Ivpb -) 50 mls @ 50 mls/hr IVPB Q8H-IV [facility] Last Admin: 06/28/16 18:03 Dose: 50 mls/hr Famotidine/Sodium Chloride (Pepcid 20 Mg Premixed Ivpb -) 50 mls @ 100 mls/hr IVPB Q48H [facility] Last Admin: 06/28/16 12:00 Dose: 100 mls/hr Insulin Aspart (Novolog Vial Sliding Scale -) 1 vial SQ ACHS [facility] PRN Reason: Protocol Last Admin: 06/28/16 17:30 Dose: Not Given Levothyroxine Sodium (Synthroid Injection -) 25 mcg IVPUSH AM [facility] Last Admin: 06/28/16 06:34 Dose: 25 mcg Morphine Sulfate (Morphine Injection -) 2 mg IVPUSH Q4H PRN PRN Reason: PAIN Morphine Sulfate (Morphine Injection -) 4 mg IVPUSH Q4H PRN PRN Reason: PAIN Last Admin: 06/26/16 23:45 Dose: 4 mg Sevelamer Carbonate (Renvela Powder Packet -) 0.8 gm PO TIDCM [facility] Last Admin: 06/28/16 18:02 Dose: 0.8 gm Silver Sulfadiazine (Silvadene -) 1 applic TP BID [facility] Last Admin: 06/28/16 09:28 Dose: 1 applic - Objective Vital Signs: Vital Signs Temperature 97 F L 06/28/16 12:00 Pulse Rate 98 H 06/28/16 16:00 Respiratory Rate 23 06/28/16 16:00 Blood Pressure 99/60 06/28/16 16:00 O2 Sat by Pulse Oximetry (%) 98 06/28/16 16:35 Constitutional: Yes: Calm Eyes: Yes: Conjunctiva Clear HENT: Yes: Atraumatic Cardiovascular: Yes: S1, S2 Respiratory: Yes: On BiPap Gastrointestinal: Yes: Soft Genitourinary: Yes: Oliguria Musculoskeletal: Yes: Muscle Weakness Edema: Yes Edema: LLE: 2+, RLE: 2+ Neurological: Yes: Oriented Labs: CBC, BMP 06/28/16 05:40 06/28/16 05:40 INR, PTT INR 1.85 (0.82-1.09) H 06/11/16 05:15 Fibrinogen 405.0 mg/dL (238-498) 06/10/16 04:45 - ....Imaging Chest X-ray: Report Reviewed Problem List - Problems (1) Acute hyperkalemia Code(s): E87.5 - HYPERKALEMIA (2) Hyponatremia Code(s): E87.1 - HYPO-OSMOLALITY AND HYPONATREMIA (3) Hypotension Code(s): I95.9 - HYPOTENSION, UNSPECIFIED Qualifiers: Qualified Code(s): I95.89 - Other hypotension (4) Acute on chronic renal failure Code(s): N17.9 - ACUTE KIDNEY FAILURE, UNSPECIFIED N18.9 - CHRONIC KIDNEY DISEASE, UNSPECIFIED (5) Anemia Code(s): D64.9 - ANEMIA, UNSPECIFIED Qualifiers: Qualified Code(s): N18.9 - Chronic kidney disease, unspecified; D63.1 - Anemia in chronic kidney disease (6) COPD (chronic obstructive pulmonary disease) Code(s): J44.9 - CHRONIC OBSTRUCTIVE PULMONARY DISEASE, UNSPECIFIED (7) Congestive heart failure (CHF) Code(s): I50.9 - HEART FAILURE, UNSPECIFIED Qualifiers: Qualified Code(s): I50.22 - Chronic systolic (congestive) heart failure (8) DMII (diabetes mellitus, type 2) Code(s): E11.9 - TYPE 2 DIABETES MELLITUS WITHOUT COMPLICATIONS (9) CKD (chronic kidney disease) Code(s): N18.9 - CHRONIC KIDNEY DISEASE, UNSPECIFIED Assessment/Plan Current Medications Generic Name Dose Route Start Last Admin Trade Name Freq PRN Reason Stop Dose Admin Acetylcysteine 800 mg 06/26/16 18:00 06/28/16 12:28 Mucomyst 20 Oral / Inh Use Only* NEB 800 mg QIDR [facility] Administration Albuterol Sulfate 1 amp 06/26/16 18:00 06/28/16 12:29 Ventolin 0.083% Nebulizer Soln - NEB 1 amp QIDR [facility] Administration Bacitracin 1 applic 06/26/16 22:00 06/28/16 09:28 Bacitracin - TP 1 applic BID [facility] Administration Brimonidine Tartrate 1 drop 06/26/16 22:00 06/28/16 09:29 Alphagan 0.2% - OU 1 drop BID [facility] Administration Collagenase 1 applic 06/26/16 22:00 06/28/16 09:28 Santyl - TP 1 applic BID [facility] Administration Furosemide 80 mg 06/27/16 06:00 06/28/16 14:57 Lasix Injection - IVPUSH 80 mg BIDLASIX [facility] Administration Heparin Sodium (Porcine) 5,000 unit 06/26/16 22:00 06/28/16 09:28 Heparin - SQ 5,000 unit BID [facility] Administration Ceftriaxone Sodium 50 mls @ 100 mls/hr 06/27/16 10:00 06/28/16 09:27 Rocephin 1gm Ivpb (Pre-Docked) IVPB 100 mls/hr DAILY [facility] Administration Metronidazole 50 mls @ 50 mls/hr 06/26/16 18:00 06/28/16 18:03 Flagyl 250mg Premixed Ivpb - IVPB 50 mls/hr Q8H-IV [facility] Administration Famotidine/Sodium Chloride 50 mls @ 100 mls/hr 06/28/16 10:45 06/28/16 12:00 Pepcid 20 Mg Premixed Ivpb - IVPB 100 mls/hr Q48H [facility] Administration Insulin Aspart 1 vial 06/26/16 16:30 06/28/16 17:30 Novolog Vial Sliding Scale - SQ Not Given ACHS [facility] Protocol Levothyroxine Sodium 25 mcg 06/27/16 07:00 06/28/16 06:34 Synthroid Injection - IVPUSH 25 mcg AM [facility] Administration Morphine Sulfate 2 mg 06/26/16 16:28 Morphine Injection - IVPUSH Q4H PRN PAIN Morphine Sulfate 4 mg 06/26/16 16:28 06/26/16 23:45 Morphine Injection - IVPUSH 4 mg Q4H PRN Administration PAIN Sevelamer Carbonate 0.8 gm 06/26/16 17:30 06/28/16 18:02 Renvela Powder Packet - PO 0.8 gm TIDCM [facility] Administration Silver Sulfadiazine 1 applic 06/26/16 22:00 06/28/16 09:28 Silvadene - TP 1 applic BID [facility] Administration Impression 1. CASE on CKD 2. sepsis with shock 3. cellulitis/abscess of back 4. CHF acute 5. hypothyroidism 6. hyperlipidemia 7. COPD 8. htn 9. a-fib 10. hyponatremia - isoosmolar 11. acute respiratory failure requiring intubation Plan - HD today - pt is not making much urine - we were able to remove a little over 2 liters today - repeat labs in am - will evaluate for HD on Thursday - wound care to legs - monitor in ICU - monitor urine output Dr Martinez
[2016-06-28] MEDS ORDERED: HEMOQUE TEST 1 EACH EACH ONE (21:18)
[2016-06-29] MEDS ORDERED: PT OWN MED DRAWER 7, Y5N ONE ×4 (01:07→23:36)
[2016-06-29] MEDS: METRONIDAZOLE PREMIXED IVPB 50 ML IVPB SCH ×3 (02:10→17:02)
[2016-06-29] MEDS: FUROSEMIDE 40 MG/4 ML INJECTABLE VIAL IVPUSH SCH ×2 (06:09→14:38)
[2016-06-29] MEDS: INSULIN SLIDING SCALE (NOVOLOG) 1 VIAL SQ SCH ×4 (06:10→23:50)
[2016-06-29] MEDS: LEVOTHYROXINE SODIUM 100 MCG VIAL IVPUSH SCH (06:10)
[2016-06-29 06:24] LABS: BASOPHIL 0.3 % (0-2.0); EOSINOPHIL 1.3 % (0-4.5); MCH 28.5 pg (25.7-33.7); MCHC 32.7 g/dl (32.0-35.9); MEAN CELL VOLUME 87.3 fl (80-96); NEUTROPHILS 78.6 % (42.8-82.8); PLATELET COUNT 111 K/MM3 (134-434); RDW 18.3 % (11.9-15.9); WHITE BLOOD COUNT 4.1 K/mm3 (4.0-10.0)
[2016-06-29 06:44] LABS: ALBUMIN 2.1 g/dl (3.4-5.0); CALCIUM 8.2 mg/dL (8.5-10.1); MAGNESIUM 1.9 mg/dL (1.8-2.4)
[2016-06-29 06:49] LABS: BILIRUBIN,TOTAL 1.2 mg/dL (0.2-1.0); COCKROFT - GAULT 27.31; CREATININE 3.1 mg/dL (0.7-1.3); PHOSPHOROUS 3.5 mg/dL (2.5-4.9); TOT PROT 5.9 g/dl (6.4-8.2)
[2016-06-29] MEDS: ACETYLCYSTEINE 20% 200MG/ML 4 ML VIAL *FOR ORAL / INH USE ONLY NEB SCH ×3 (06:57→19:24)
[2016-06-29] MEDS: SEVELAMER CARBONATE 0.8 GM POWDER PACKET PO SCH ×3 (08:33→16:55)
[2016-06-29] MEDS: BRIMONIDINE TARTRATE 0.2% OPHTHALMIC 5 ML BOTTLE OU SCH ×2 (09:38→22:02)
[2016-06-29] MEDS: BACITRACIN 30 GM TUBE TOPICAL OINTMENT TP SCH ×2 (09:38→23:40)
[2016-06-29] MEDS: COLLAGENASE CLOSTRIDIUM HIST. 30 GRAMS TUBE TP SCH ×2 (09:39→23:37)
[2016-06-29] MEDS: CEFTRIAXONE 50 ML IVPB SCH (09:39)
[2016-06-29] MEDS: HEPARIN NA (PORCINE) 5,000 UNITS/ML 1ML VIAL SQ SCH ×2 (09:39→22:05)
[2016-06-29] MEDS: SILVER SULFADIAZINE 1% TOP CREAM 50 GM JAR TP SCH ×2 (09:39→23:49)
--- NOTE | 2016-06-29 09:49 | PN ---
Progress Note, Physician History of Present Illness: IN BED ALERT - Current Medication List Current Medications: Active Medications Acetylcysteine (Mucomyst 20 Oral / Inh Use Only*) 800 mg NEB QIDR [facility] Last Admin: 06/29/16 06:57 Dose: 800 mg Albuterol Sulfate (Ventolin 0.083% Nebulizer Soln -) 1 amp NEB QIDR [facility] Last Admin: 06/28/16 23:42 Dose: 1 amp Bacitracin (Bacitracin -) 1 applic TP BID [facility] Last Admin: 06/29/16 09:38 Dose: 1 applic Brimonidine Tartrate (Alphagan 0.2% -) 1 drop OU BID [facility] Last Admin: 06/29/16 09:38 Dose: 1 drop Collagenase (Santyl -) 1 applic TP BID [facility] Last Admin: 06/29/16 09:39 Dose: 1 applic Furosemide (Lasix Injection -) 80 mg IVPUSH BIDLASIX [facility] Last Admin: 06/29/16 06:09 Dose: 80 mg Heparin Sodium (Porcine) (Heparin -) 5,000 unit SQ BID [facility] Last Admin: 06/29/16 09:39 Dose: 5,000 unit Ceftriaxone Sodium (Rocephin 1gm Ivpb (Pre-Docked)) 50 mls @ 100 mls/hr IVPB DAILY [facility] Last Admin: 06/29/16 09:39 Dose: 100 mls/hr Metronidazole (Flagyl 250mg Premixed Ivpb -) 50 mls @ 50 mls/hr IVPB Q8H-IV [facility] Last Admin: 06/29/16 09:39 Dose: 50 mls/hr Famotidine/Sodium Chloride (Pepcid 20 Mg Premixed Ivpb -) 50 mls @ 100 mls/hr IVPB Q48H [facility] Last Admin: 06/28/16 12:00 Dose: 100 mls/hr Insulin Aspart (Novolog Vial Sliding Scale -) 1 vial SQ ACHS [facility] PRN Reason: Protocol Last Admin: 06/29/16 06:10 Dose: Not Given Levothyroxine Sodium (Synthroid Injection -) 25 mcg IVPUSH AM [facility] Last Admin: 06/29/16 06:10 Dose: 25 mcg Morphine Sulfate (Morphine Injection -) 2 mg IVPUSH Q4H PRN PRN Reason: PAIN Morphine Sulfate (Morphine Injection -) 4 mg IVPUSH Q4H PRN PRN Reason: PAIN Last Admin: 06/26/16 23:45 Dose: 4 mg Sevelamer Carbonate (Renvela Powder Packet -) 0.8 gm PO TIDCM [facility] Last Admin: 06/29/16 08:33 Dose: 0.8 gm Silver Sulfadiazine (Silvadene -) 1 applic TP BID [facility] Last Admin: 06/29/16 09:39 Dose: 1 applic - Objective Vital Signs: Vital Signs Temperature 97.9 F 06/29/16 06:00 Pulse Rate 99 H 06/29/16 08:00 Respiratory Rate 23 06/29/16 09:00 Blood Pressure 100/62 06/29/16 08:00 O2 Sat by Pulse Oximetry (%) 96 06/29/16 09:00 Cardiovascular: Yes: Pulse Irregular, S1, S2 Respiratory: Yes: Diminished, On Nasal O2 Gastrointestinal: Yes: Normal Bowel Sounds, Soft Labs: CBC, BMP 06/29/16 05:45 06/29/16 05:45 INR, PTT INR 1.85 (0.82-1.09) H 06/11/16 05:15 Fibrinogen 405.0 mg/dL (238-498) 06/10/16 04:45 Problem List - Problems (1) Acute on chronic renal failure Assessment/Plan: RENAL ON BOARD--HD PER RENAL MONITOR Code(s): N17.9 - ACUTE KIDNEY FAILURE, UNSPECIFIED N18.9 - CHRONIC KIDNEY DISEASE, UNSPECIFIED (2) COPD (chronic obstructive pulmonary disease) Assessment/Plan: NEBS O2-NC Code(s): J44.9 - CHRONIC OBSTRUCTIVE PULMONARY DISEASE, UNSPECIFIED (3) Congestive heart failure (CHF) Assessment/Plan: HD--MONITOR FLUID BALANCE CXR--ATELECTASIS Code(s): I50.9 - HEART FAILURE, UNSPECIFIED Qualifiers: Qualified Code(s): I50.22 - Chronic systolic (congestive) heart failure
--- NOTE | 2016-06-29 10:07 | PN ---
Progress Note (short form) - Note Progress Note: PULMONARY/CCM Pt seen and examined in the ICU. Continues to slowly improve, denies shortness of breath or chest pain. Did not allow BiPAP overnight. No fevers recorded. Last Vital Signs Temp Pulse Resp BP Pulse Ox 97.9 F 99 H 23 100/62 97 06/29/16 06:00 06/29/16 08:00 06/29/16 09:00 06/29/16 08:00 06/29/16 09:53 Intake & Output 06/26/16 06/27/16 06/28/16 06/29/16 23:59 23:59 23:59 23:59 Intake Total 1041 228 95 Output Total 395 15 25 15 Balance 646 213 70 -15 Weight 221 lb 11.2 oz 218 lb 8 oz 212 lb 1.6 oz 210 lb Gen: less tachypneic Heart: RRR Lung: scattered rhonchi Abd: soft, nontender Ext: decreasing edema CBC, BMP 06/29/16 05:45 06/29/16 05:45 Active Medications Acetylcysteine (Mucomyst 20 Oral / Inh Use Only*) 800 mg NEB QIDR [facility] Last Admin: 06/29/16 06:57 Dose: 800 mg Albuterol Sulfate (Ventolin 0.083% Nebulizer Soln -) 1 amp NEB QIDR [facility] Last Admin: 06/28/16 23:42 Dose: 1 amp Bacitracin (Bacitracin -) 1 applic TP BID [facility] Last Admin: 06/29/16 09:38 Dose: 1 applic Brimonidine Tartrate (Alphagan 0.2% -) 1 drop OU BID [facility] Last Admin: 06/29/16 09:38 Dose: 1 drop Collagenase (Santyl -) 1 applic TP BID [facility] Last Admin: 06/29/16 09:39 Dose: 1 applic Furosemide (Lasix Injection -) 80 mg IVPUSH BIDLASIX [facility] Last Admin: 06/29/16 06:09 Dose: 80 mg Heparin Sodium (Porcine) (Heparin -) 5,000 unit SQ BID [facility] Last Admin: 06/29/16 09:39 Dose: 5,000 unit Ceftriaxone Sodium (Rocephin 1gm Ivpb (Pre-Docked)) 50 mls @ 100 mls/hr IVPB DAILY [facility] Last Admin: 06/29/16 09:39 Dose: 100 mls/hr Metronidazole (Flagyl 250mg Premixed Ivpb -) 50 mls @ 50 mls/hr IVPB Q8H-IV [facility] Last Admin: 06/29/16 09:39 Dose: 50 mls/hr Famotidine/Sodium Chloride (Pepcid 20 Mg Premixed Ivpb -) 50 mls @ 100 mls/hr IVPB Q48H [facility] Last Admin: 06/28/16 12:00 Dose: 100 mls/hr Insulin Aspart (Novolog Vial Sliding Scale -) 1 vial SQ ACHS [facility] PRN Reason: Protocol Last Admin: 06/29/16 06:10 Dose: Not Given Levothyroxine Sodium (Synthroid Injection -) 25 mcg IVPUSH AM [facility] Last Admin: 06/29/16 06:10 Dose: 25 mcg Morphine Sulfate (Morphine Injection -) 2 mg IVPUSH Q4H PRN PRN Reason: PAIN Morphine Sulfate (Morphine Injection -) 4 mg IVPUSH Q4H PRN PRN Reason: PAIN Last Admin: 06/26/16 23:45 Dose: 4 mg Sevelamer Carbonate (Renvela Powder Packet -) 0.8 gm PO TIDCM [facility] Last Admin: 06/29/16 08:33 Dose: 0.8 gm Silver Sulfadiazine (Silvadene -) 1 applic TP BID [facility] Last Admin: 06/29/16 09:39 Dose: 1 applic A/P s/p Acute Respiratory Failure Back/Shoulder Cellulitis/Abscess Septic vs Cardiogenic Shock Acute on Chronic Renal Failure Metabolic Acidosis Acute on Chronic LV Systolic Heart Failure Atrial Fibrillation COPD Hyponatremia Atelectasis improving - continue lasix, HD per renal - s/p antibiotic course - O2 to keep SpO2 >90% - aspiration precautions - inhaled bronchodilators with mucolytics - PO as tolerated - DVT/GI prophylaxis - rehab/PT - OOB to chair if possible - can monitor on telemetry critical care time spent reviewing chart, evaluating patient and formulating plan 35 min
[2016-06-29] MEDS: ALBUTEROL SO4 0.083% IH SOL 2.5 MG/3 ML VIAL.NEB. NEB SCH ×2 (12:10→19:24)
--- NOTE | 2016-06-29 15:41 | PN ---
Progress Note, Physician History of Present Illness: Pt seen and examined at bedside. He is awake and appears comfortable. He is off of bipap. - Current Medication List Current Medications: Active Medications Acetylcysteine (Mucomyst 20 Oral / Inh Use Only*) 800 mg NEB QIDR [facility] Last Admin: 06/29/16 12:09 Dose: Not Given Albuterol Sulfate (Ventolin 0.083% Nebulizer Soln -) 1 amp NEB QIDR [facility] Last Admin: 06/29/16 12:10 Dose: Not Given Bacitracin (Bacitracin -) 1 applic TP BID [facility] Last Admin: 06/29/16 09:38 Dose: 1 applic Brimonidine Tartrate (Alphagan 0.2% -) 1 drop OU BID [facility] Last Admin: 06/29/16 09:38 Dose: 1 drop Collagenase (Santyl -) 1 applic TP BID [facility] Last Admin: 06/29/16 09:39 Dose: 1 applic Furosemide (Lasix Injection -) 80 mg IVPUSH BIDLASIX [facility] Last Admin: 06/29/16 14:38 Dose: 80 mg Heparin Sodium (Porcine) (Heparin -) 5,000 unit SQ BID [facility] Last Admin: 06/29/16 09:39 Dose: 5,000 unit Ceftriaxone Sodium (Rocephin 1gm Ivpb (Pre-Docked)) 50 mls @ 100 mls/hr IVPB DAILY [facility] Last Admin: 06/29/16 09:39 Dose: 100 mls/hr Metronidazole (Flagyl 250mg Premixed Ivpb -) 50 mls @ 50 mls/hr IVPB Q8H-IV [facility] Last Admin: 06/29/16 09:39 Dose: 50 mls/hr Famotidine/Sodium Chloride (Pepcid 20 Mg Premixed Ivpb -) 50 mls @ 100 mls/hr IVPB Q48H [facility] Last Admin: 06/28/16 12:00 Dose: 100 mls/hr Insulin Aspart (Novolog Vial Sliding Scale -) 1 vial SQ ACHS [facility] PRN Reason: Protocol Last Admin: 06/29/16 12:00 Dose: Not Given Levothyroxine Sodium (Synthroid Injection -) 25 mcg IVPUSH AM [facility] Last Admin: 06/29/16 06:10 Dose: 25 mcg Morphine Sulfate (Morphine Injection -) 2 mg IVPUSH Q4H PRN PRN Reason: PAIN Morphine Sulfate (Morphine Injection -) 4 mg IVPUSH Q4H PRN PRN Reason: PAIN Last Admin: 06/26/16 23:45 Dose: 4 mg Sevelamer Carbonate (Renvela Powder Packet -) 0.8 gm PO TIDCM [facility] Last Admin: 06/29/16 12:30 Dose: 0.8 gm Silver Sulfadiazine (Silvadene -) 1 applic TP BID [facility] Last Admin: 06/29/16 09:39 Dose: 1 applic - Objective Vital Signs: Vital Signs Temperature 97.9 F 06/29/16 06:00 Pulse Rate 99 H 06/29/16 10:00 Respiratory Rate 25 H 06/29/16 10:00 Blood Pressure 103/61 06/29/16 10:00 O2 Sat by Pulse Oximetry (%) 97 06/29/16 09:53 Constitutional: Yes: Calm Eyes: Yes: Conjunctiva Clear HENT: Yes: Atraumatic Cardiovascular: Yes: S1, S2 Respiratory: Yes: On Nasal O2, Rhonchi Gastrointestinal: Yes: Soft Genitourinary: Yes: Oliguria Musculoskeletal: Yes: Muscle Weakness Edema: Yes Edema: LLE: 2+, RLE: 2+ Wound/Incision: Yes: Dressing Dry and Intact Neurological: Yes: Other (sleepy) Labs: CBC, BMP 06/29/16 05:45 06/29/16 05:45 INR, PTT INR 1.85 (0.82-1.09) H 06/11/16 05:15 Fibrinogen 405.0 mg/dL (238-498) 06/10/16 04:45 - ....Imaging Chest X-ray: Report Reviewed Problem List - Problems (1) Acute hyperkalemia Code(s): E87.5 - HYPERKALEMIA (2) Hyponatremia Code(s): E87.1 - HYPO-OSMOLALITY AND HYPONATREMIA (3) Hypotension Code(s): I95.9 - HYPOTENSION, UNSPECIFIED Qualifiers: Qualified Code(s): I95.89 - Other hypotension (4) Acute on chronic renal failure Code(s): N17.9 - ACUTE KIDNEY FAILURE, UNSPECIFIED N18.9 - CHRONIC KIDNEY DISEASE, UNSPECIFIED (5) Anemia Code(s): D64.9 - ANEMIA, UNSPECIFIED Qualifiers: Qualified Code(s): N18.9 - Chronic kidney disease, unspecified; D63.1 - Anemia in chronic kidney disease (6) COPD (chronic obstructive pulmonary disease) Code(s): J44.9 - CHRONIC OBSTRUCTIVE PULMONARY DISEASE, UNSPECIFIED (7) Congestive heart failure (CHF) Code(s): I50.9 - HEART FAILURE, UNSPECIFIED Qualifiers: Qualified Code(s): I50.22 - Chronic systolic (congestive) heart failure (8) DMII (diabetes mellitus, type 2) Code(s): E11.9 - TYPE 2 DIABETES MELLITUS WITHOUT COMPLICATIONS (9) CKD (chronic kidney disease) Code(s): N18.9 - CHRONIC KIDNEY DISEASE, UNSPECIFIED Assessment/Plan Current Medications Generic Name Dose Route Start Last Admin Trade Name Freq PRN Reason Stop Dose Admin Acetylcysteine 800 mg 06/26/16 18:00 06/29/16 12:09 Mucomyst 20 Oral / Inh Use Only* NEB Not Given QIDR [facility] Albuterol Sulfate 1 amp 06/26/16 18:00 06/29/16 12:10 Ventolin 0.083% Nebulizer Soln - NEB Not Given QIDR [facility] Bacitracin 1 applic 06/26/16 22:00 06/29/16 09:38 Bacitracin - TP 1 applic BID [facility] Administration Brimonidine Tartrate 1 drop 06/26/16 22:00 06/29/16 09:38 Alphagan 0.2% - OU 1 drop BID [facility] Administration Collagenase 1 applic 06/26/16 22:00 06/29/16 09:39 Santyl - TP 1 applic BID [facility] Administration Furosemide 80 mg 06/27/16 06:00 06/29/16 14:38 Lasix Injection - IVPUSH 80 mg BIDLASIX [facility] Administration Heparin Sodium (Porcine) 5,000 unit 06/26/16 22:00 06/29/16 09:39 Heparin - SQ 5,000 unit BID [facility] Administration Ceftriaxone Sodium 50 mls @ 100 mls/hr 06/27/16 10:00 06/29/16 09:39 Rocephin 1gm Ivpb (Pre-Docked) IVPB 100 mls/hr DAILY [facility] Administration Metronidazole 50 mls @ 50 mls/hr 06/26/16 18:00 06/29/16 09:39 Flagyl 250mg Premixed Ivpb - IVPB 50 mls/hr Q8H-IV [facility] Administration Famotidine/Sodium Chloride 50 mls @ 100 mls/hr 06/28/16 10:45 06/28/16 12:00 Pepcid 20 Mg Premixed Ivpb - IVPB 100 mls/hr Q48H [facility] Administration Insulin Aspart 1 vial 06/26/16 16:30 06/29/16 12:00 Novolog Vial Sliding Scale - SQ Not Given ACHS [facility] Protocol Levothyroxine Sodium 25 mcg 06/27/16 07:00 06/29/16 06:10 Synthroid Injection - IVPUSH 25 mcg AM [facility] Administration Morphine Sulfate 2 mg 06/26/16 16:28 Morphine Injection - IVPUSH Q4H PRN PAIN Morphine Sulfate 4 mg 06/26/16 16:28 06/26/16 23:45 Morphine Injection - IVPUSH 4 mg Q4H PRN Administration PAIN Sevelamer Carbonate 0.8 gm 06/26/16 17:30 06/29/16 12:30 Renvela Powder Packet - PO 0.8 gm TIDCM [facility] Administration Silver Sulfadiazine 1 applic 06/26/16 22:00 06/29/16 09:39 Silvadene - TP 1 applic BID [facility] Administration Impression 1. CASE on CKD 2. sepsis with shock 3. cellulitis/abscess of back 4. CHF acute 5. hypothyroidism 6. hyperlipidemia 7. COPD 8. htn 9. a-fib 10. hyponatremia - isoosmolar 11. acute respiratory failure requiring intubation Plan - will evaluate for HD in am - pt remains oliguric - monitor blood pressure - monitor in ICU - recommend stopping lasix as he is not making urine Dr Martinez
[2016-06-30] MEDS: ACETYLCYSTEINE 20% 200MG/ML 4 ML VIAL *FOR ORAL / INH USE ONLY NEB SCH ×5 (01:09→23:42)
[2016-06-30] MEDS: ALBUTEROL SO4 0.083% IH SOL 2.5 MG/3 ML VIAL.NEB. NEB SCH ×5 (01:09→23:42)
[2016-06-30] MEDS: METRONIDAZOLE PREMIXED IVPB 50 ML IVPB SCH (01:18)
[2016-06-30 06:03] LABS: EOSINOPHIL 1.1 % (0-4.5); MCHC 31.7 g/dl (32.0-35.9); MEAN CELL VOLUME 88.1 fl (80-96); NEUTROPHILS 75.5 % (42.8-82.8); PLATELET COUNT 101 K/MM3 (134-434); RDW 18.7 % (11.9-15.9); WHITE BLOOD COUNT 4.3 K/mm3 (4.0-10.0)
[2016-06-30] MEDS ORDERED: PT OWN MED DRAWER 7, Y5N ONE (06:42)
[2016-06-30] MEDS: LEVOTHYROXINE SODIUM 100 MCG VIAL IVPUSH SCH (06:49)
[2016-06-30] MEDS: INSULIN SLIDING SCALE (NOVOLOG) 1 VIAL SQ SCH ×4 (06:50→22:35)
[2016-06-30 07:03] LABS: ALBUMIN 1.9 g/dl (3.4-5.0); BILIRUBIN,TOTAL 0.9 mg/dL (0.2-1.0); CALCIUM 8.2 mg/dL (8.5-10.1); CREATININE 3.7 mg/dL (0.7-1.3); TOT PROT 5.5 g/dl (6.4-8.2)
--- NOTE | 2016-06-30 07:18 | PN ---
Progress Note, Physician History of Present Illness: awake - Current Medication List Current Medications: Active Medications Acetylcysteine (Mucomyst 20 Oral / Inh Use Only*) 800 mg NEB QIDR [facility] Last Admin: 06/30/16 07:00 Dose: 800 mg Albuterol Sulfate (Ventolin 0.083% Nebulizer Soln -) 1 amp NEB QIDR [facility] Last Admin: 06/30/16 07:01 Dose: 1 amp Bacitracin (Bacitracin -) 1 applic TP BID [facility] Last Admin: 06/29/16 23:40 Dose: 1 applic Brimonidine Tartrate (Alphagan 0.2% -) 1 drop OU BID [facility] Last Admin: 06/29/16 22:02 Dose: 1 drop Collagenase (Santyl -) 1 applic TP BID [facility] Last Admin: 06/29/16 23:37 Dose: 1 applic Heparin Sodium (Porcine) (Heparin -) 5,000 unit SQ BID [facility] Last Admin: 06/29/16 22:05 Dose: 5,000 unit Ceftriaxone Sodium (Rocephin 1gm Ivpb (Pre-Docked)) 50 mls @ 100 mls/hr IVPB DAILY [facility] Last Admin: 06/29/16 09:39 Dose: 100 mls/hr Metronidazole (Flagyl 250mg Premixed Ivpb -) 50 mls @ 50 mls/hr IVPB Q8H-IV [facility] Last Admin: 06/30/16 01:18 Dose: 50 mls/hr Famotidine/Sodium Chloride (Pepcid 20 Mg Premixed Ivpb -) 50 mls @ 100 mls/hr IVPB Q48H [facility] Last Admin: 06/28/16 12:00 Dose: 100 mls/hr Insulin Aspart (Novolog Vial Sliding Scale -) 1 vial SQ ACHS [facility] PRN Reason: Protocol Last Admin: 06/30/16 06:50 Dose: Not Given Levothyroxine Sodium (Synthroid Injection -) 25 mcg IVPUSH AM [facility] Last Admin: 06/30/16 06:49 Dose: 25 mcg Sevelamer Carbonate (Renvela Powder Packet -) 0.8 gm PO TIDCM [facility] Last Admin: 06/29/16 16:55 Dose: 0.8 gm Silver Sulfadiazine (Silvadene -) 1 applic TP BID [facility] Last Admin: 06/29/16 23:49 Dose: 1 applic - Objective Vital Signs: Vital Signs Temperature 96.3 F L 06/30/16 06:00 Pulse Rate 100 H 06/30/16 06:00 Respiratory Rate 15 06/30/16 06:00 Blood Pressure 89/74 06/30/16 06:00 O2 Sat by Pulse Oximetry (%) 95 06/29/16 21:00 Neck: Yes: WNL, Other (o2 mask) Cardiovascular: Yes: WNL Respiratory: Yes: WNL Gastrointestinal: Yes: WNL Edema: No Labs: CBC, BMP 06/30/16 05:45 06/30/16 05:45 INR, PTT INR 1.85 (0.82-1.09) H 06/11/16 05:15 Fibrinogen 405.0 mg/dL (238-498) 06/10/16 04:45 Problem List - Problems (1) Anemia Code(s): D64.9 - ANEMIA, UNSPECIFIED Qualifiers: Qualified Code(s): N18.9 - Chronic kidney disease, unspecified; D63.1 - Anemia in chronic kidney disease Assessment/Plan (1) Acute on chronic renal failure Assessment/Plan: RENAL ON BOARD--HD PER RENAL MONITOR Code(s): N17.9 - ACUTE KIDNEY FAILURE, UNSPECIFIED N18.9 - CHRONIC KIDNEY DISEASE, UNSPECIFIED (2) COPD (chronic obstructive pulmonary disease) Assessment/Plan: NEBS O2-LA Code(s): J44.9 - CHRONIC OBSTRUCTIVE PULMONARY DISEASE, UNSPECIFIED (3) Congestive heart failure (CHF) Assessment/Plan: HD--MONITOR FLUID BALANCE CXR--ATELECTASIS Code(s): I50.9 - HEART FAILURE, UNSPECIFIED Qualifiers: Qualified Code(s): I50.22 - Chronic systolic (congestive) heart failure GOAL OF TREATMENT PALLIATIVE ON CASE -> [employer]PRE[employer] TECHNOLOGIST ROBBIE
[2016-06-30] MEDS: SEVELAMER CARBONATE 0.8 GM POWDER PACKET PO SCH ×3 (08:23→17:33)
[2016-06-30 09:40] LABS: ALLENS TEST POSITIVE; ART PUNCT SITE RIGHT RADIAL; ARTERIAL BLD GAS O2 SATURATION 99.5 % (90-98.9); ARTERIAL BLOOD GAS BASE EXCESS 2.8 meq/l (-2-2); ARTERIAL BLOOD GAS HCO3 26.9 meq/L (22-26); ARTERIAL BLOOD GAS pH 7.42 (7.35-7.45); LPM/O2% 50; PT. ON O2? YES; TYPE OF O2 BIPAP; VENT RATE 18; VT/PRESS EPAP 6
[2016-06-30] MEDS: FAMOTIDINE 20 MG/50 ML IVPB 50 ML IVPB SCH (09:47)
[2016-06-30] MEDS: SILVER SULFADIAZINE 1% TOP CREAM 50 GM JAR TP SCH ×2 (09:48→21:16)
[2016-06-30] MEDS: BRIMONIDINE TARTRATE 0.2% OPHTHALMIC 5 ML BOTTLE OU SCH ×2 (09:49→21:15)
[2016-06-30] MEDS: COLLAGENASE CLOSTRIDIUM HIST. 30 GRAMS TUBE TP SCH ×2 (09:50→21:15)
[2016-06-30] MEDS: BACITRACIN 30 GM TUBE TOPICAL OINTMENT TP SCH ×2 (09:51→21:15)
[2016-06-30] MEDS: HEPARIN NA (PORCINE) 5,000 UNITS/ML 1ML VIAL SQ SCH ×3 (10:06→21:15)
--- NOTE | 2016-06-30 11:27 | PN ---
Progress Note, ROLL UP HELPER - Note Progress Note: Last seen 06/25 at which time he was lethargic, congested, Magic cup on hold. Pureed diet/nectar thick ordered on 06/27. Selected Entries 06/27/16 06/27/16 06/28/16 15:10 21:00 13:50 Breakfast 25% Diet Tolerated Poor Poor Poor Lunch 25% 25% Supper 25% 25% Temperature 06/28/16 06/28/16 06/29/16 21:00 22:45 00:00 Breakfast Diet Tolerated Poor Poor Lunch Supper 25% 25% Temperature 97.9 F 06/29/16 06/29/16 06/29/16 02:00 06:00 08:56 Breakfast 25% Diet Tolerated Poor Lunch 25% Supper 25% Temperature 97.8 F 97.9 F 06/29/16 06/29/16 14:00 22:45 Breakfast Diet Tolerated Poor Lunch Supper 25% Temperature 96 F L Laboratory Tests 06/27/16 06/29/16 06/30/16 05:15 05:45 05:45 WBC 3.8 L D 4.1 4.3 Only accepted small amount yesterday, refusing most, congested. On bipap now. PO held. Palliative care following.
[2016-06-30] MEDS ORDERED: ACETYLCYSTEINE 20% 200MG/ML 30 ML VIAL *FOR ORAL / INH USE ONLY NEB SCH (11:30)
--- NOTE | 2016-06-30 12:35 | PN ---
Teaching Attending Note Name of Resident: Patricio Andrade ATTENDING PHYSICIAN STATEMENT I saw and evaluated the patient. I reviewed the resident's note and discussed the case with the resident. I agree with the resident's findings and plan as documented. SUBJECTIVE: Pt seen and examined in the ICU. Back on BiPAP, lethargic but arousable. Saturating well. Not making urine. No fevers recorded but hypothermic again. OBJECTIVE: Last Vital Signs Temp Pulse Resp BP Pulse Ox 96.3 F L 89 15 89/74 97 06/30/16 06:00 06/30/16 11:25 06/30/16 06:00 06/30/16 06:00 06/30/16 11:25 Intake & Output 06/27/16 06/28/16 06/29/16 06/30/16 23:59 23:59 23:59 23:59 Intake Total 228 95 175 50 Output Total 15 25 25 Balance 213 70 150 50 Weight 218 lb 8 oz 212 lb 1.6 oz 210 lb 213 lb 6.519 oz Gen: lethargic but arousable on BiPAP Heart: RRR Lung: distant breath sounds L>R Abd: soft, nontender Ext: + edema CBC, BMP 06/30/16 05:45 06/30/16 05:45 Active Medications Acetylcysteine (Mucomyst 20 Oral / Inh Use Only*) 800 mg NEB QIDR [facility] Last Admin: 06/30/16 11:10 Dose: 800 mg Albuterol Sulfate (Ventolin 0.083% Nebulizer Soln -) 1 amp NEB QIDR [facility] Last Admin: 06/30/16 11:10 Dose: 1 amp Bacitracin (Bacitracin -) 1 applic TP BID [facility] Last Admin: 06/30/16 09:51 Dose: 1 applic Brimonidine Tartrate (Alphagan 0.2% -) 1 drop OU BID [facility] Last Admin: 06/30/16 09:49 Dose: 1 drop Collagenase (Santyl -) 1 applic TP BID [facility] Last Admin: 06/30/16 09:50 Dose: 1 applic Heparin Sodium (Porcine) (Heparin -) 5,000 unit SQ BID [facility] Last Admin: 06/30/16 10:06 Dose: 5,000 unit Famotidine/Sodium Chloride (Pepcid 20 Mg Premixed Ivpb -) 50 mls @ 100 mls/hr IVPB Q48H [facility] Last Admin: 06/30/16 09:47 Dose: 100 mls/hr Insulin Aspart (Novolog Vial Sliding Scale -) 1 vial SQ ACHS [facility] PRN Reason: Protocol Last Admin: 06/30/16 11:22 Dose: Not Given Levothyroxine Sodium (Synthroid Injection -) 25 mcg IVPUSH AM [facility] Last Admin: 06/30/16 06:49 Dose: 25 mcg Sevelamer Carbonate (Renvela Powder Packet -) 0.8 gm PO TIDCM [facility] Last Admin: 06/30/16 11:22 Dose: Not Given Silver Sulfadiazine (Silvadene -) 1 applic TP BID [facility] Last Admin: 06/30/16 09:48 Dose: 1 applic ASSESSMENT AND PLAN: s/p Acute Respiratory Failure Back/Shoulder Cellulitis/Abscess Septic vs Cardiogenic Shock Acute on Chronic Renal Failure Metabolic Acidosis Acute on Chronic LV Systolic Heart Failure Atrial Fibrillation COPD Hyponatremia Atelectasis improving - HD per renal - s/p antibiotic course - O2 to keep SpO2 >90% - aspiration precautions - inhaled bronchodilators with mucolytics - PO as tolerated - DVT/GI prophylaxis - rehab/PT - continue ICU monitoring for tenuous respiratory status - continue discussions regarding goals of care critical care time spent reviewing chart, evaluating patient and formulating plan 35 min
--- NOTE | 2016-06-30 13:12 | PN ---
Progress Note, Physician History of Present Illness: Pt seen and examined at bedside. No great change from yesterday. - Current Medication List Current Medications: Active Medications Acetylcysteine (Mucomyst 20 Oral / Inh Use Only*) 800 mg NEB QIDR [facility] Last Admin: 06/30/16 11:10 Dose: 800 mg Albuterol Sulfate (Ventolin 0.083% Nebulizer Soln -) 1 amp NEB QIDR [facility] Last Admin: 06/30/16 11:10 Dose: 1 amp Bacitracin (Bacitracin -) 1 applic TP BID [facility] Last Admin: 06/30/16 09:51 Dose: 1 applic Brimonidine Tartrate (Alphagan 0.2% -) 1 drop OU BID [facility] Last Admin: 06/30/16 09:49 Dose: 1 drop Collagenase (Santyl -) 1 applic TP BID [facility] Last Admin: 06/30/16 09:50 Dose: 1 applic Heparin Sodium (Porcine) (Heparin -) 5,000 unit SQ BID [facility] Last Admin: 06/30/16 10:06 Dose: 5,000 unit Famotidine/Sodium Chloride (Pepcid 20 Mg Premixed Ivpb -) 50 mls @ 100 mls/hr IVPB Q48H [facility] Last Admin: 06/30/16 09:47 Dose: 100 mls/hr Insulin Aspart (Novolog Vial Sliding Scale -) 1 vial SQ ACHS [facility] PRN Reason: Protocol Last Admin: 06/30/16 11:22 Dose: Not Given Levothyroxine Sodium (Synthroid Injection -) 25 mcg IVPUSH AM [facility] Last Admin: 06/30/16 06:49 Dose: 25 mcg Sevelamer Carbonate (Renvela Powder Packet -) 0.8 gm PO TIDCM [facility] Last Admin: 06/30/16 11:22 Dose: Not Given Silver Sulfadiazine (Silvadene -) 1 applic TP BID [facility] Last Admin: 06/30/16 09:48 Dose: 1 applic - Objective Vital Signs: Vital Signs Temperature 96.3 F L 06/30/16 06:00 Pulse Rate 89 06/30/16 11:25 Respiratory Rate 15 06/30/16 06:00 Blood Pressure 89/74 06/30/16 06:00 O2 Sat by Pulse Oximetry (%) 97 06/30/16 11:25 Constitutional: Yes: Calm Eyes: Yes: Conjunctiva Clear HENT: Yes: Atraumatic Neck: Yes: Supple Cardiovascular: Yes: S1, S2 Respiratory: Yes: On BiPap Gastrointestinal: Yes: Soft Musculoskeletal: Yes: Muscle Weakness Edema: Yes Edema: LLE: 2+, RLE: 2+ Neurological: Yes: Oriented Labs: CBC, BMP 06/30/16 05:45 06/30/16 05:45 INR, PTT INR 1.85 (0.82-1.09) H 06/11/16 05:15 Fibrinogen 405.0 mg/dL (238-498) 06/10/16 04:45 Problem List - Problems (1) Acute hyperkalemia Code(s): E87.5 - HYPERKALEMIA (2) Hyponatremia Code(s): E87.1 - HYPO-OSMOLALITY AND HYPONATREMIA (3) Hypotension Code(s): I95.9 - HYPOTENSION, UNSPECIFIED Qualifiers: Qualified Code(s): I95.89 - Other hypotension (4) Acute on chronic renal failure Code(s): N17.9 - ACUTE KIDNEY FAILURE, UNSPECIFIED N18.9 - CHRONIC KIDNEY DISEASE, UNSPECIFIED (5) Anemia Code(s): D64.9 - ANEMIA, UNSPECIFIED Qualifiers: Qualified Code(s): N18.9 - Chronic kidney disease, unspecified; D63.1 - Anemia in chronic kidney disease (6) COPD (chronic obstructive pulmonary disease) Code(s): J44.9 - CHRONIC OBSTRUCTIVE PULMONARY DISEASE, UNSPECIFIED (7) Congestive heart failure (CHF) Code(s): I50.9 - HEART FAILURE, UNSPECIFIED Qualifiers: Qualified Code(s): I50.22 - Chronic systolic (congestive) heart failure (8) DMII (diabetes mellitus, type 2) Code(s): E11.9 - TYPE 2 DIABETES MELLITUS WITHOUT COMPLICATIONS (9) CKD (chronic kidney disease) Code(s): N18.9 - CHRONIC KIDNEY DISEASE, UNSPECIFIED Assessment/Plan Current Medications Generic Name Dose Route Start Last Admin Trade Name Freq PRN Reason Stop Dose Admin Acetylcysteine 800 mg 06/26/16 18:00 06/30/16 11:10 Mucomyst 20 Oral / Inh Use Only* NEB 800 mg QIDR [facility] Administration Albuterol Sulfate 1 amp 06/26/16 18:00 06/30/16 11:10 Ventolin 0.083% Nebulizer Soln - NEB 1 amp QIDR [facility] Administration Bacitracin 1 applic 06/26/16 22:00 06/30/16 09:51 Bacitracin - TP 1 applic BID [facility] Administration Brimonidine Tartrate 1 drop 06/26/16 22:00 06/30/16 09:49 Alphagan 0.2% - OU 1 drop BID [facility] Administration Collagenase 1 applic 06/26/16 22:00 06/30/16 09:50 Santyl - TP 1 applic BID [facility] Administration Heparin Sodium (Porcine) 5,000 unit 06/26/16 22:00 06/30/16 10:06 Heparin - SQ 5,000 unit BID [facility] Administration Famotidine/Sodium Chloride 50 mls @ 100 mls/hr 06/28/16 10:45 06/30/16 09:47 Pepcid 20 Mg Premixed Ivpb - IVPB 100 mls/hr Q48H [facility] Administration Insulin Aspart 1 vial 06/26/16 16:30 06/30/16 11:22 Novolog Vial Sliding Scale - SQ Not Given ACHS [facility] Protocol Levothyroxine Sodium 25 mcg 06/27/16 07:00 06/30/16 06:49 Synthroid Injection - IVPUSH 25 mcg AM [facility] Administration Sevelamer Carbonate 0.8 gm 06/26/16 17:30 06/30/16 11:22 Renvela Powder Packet - PO Not Given TIDCM [facility] Silver Sulfadiazine 1 applic 06/26/16 22:00 06/30/16 09:48 Silvadene - TP 1 applic BID [facility] Administration Impression 1. CASE on CKD 2. sepsis with shock 3. cellulitis/abscess of back 4. CHF acute 5. hypothyroidism 6. hyperlipidemia 7. COPD 8. htn 9. a-fib 10. hyponatremia - isoosmolar 11. acute respiratory failure requiring intubation Plan - will arrange for HD tomorrow - pt remains oliguric - discussed with ICU team - monitor blood pressure - would keep in ICU - cont Bipap as needed - will continue to follow Dr Martinez
--- NOTE | 2016-06-30 13:43 | PN ---
Physical Exam: SUBJECTIVE: Patient seen and examined OBJECTIVE: Vital Signs Period Temp Pulse Resp BP Sys/Hubbard Pulse Ox Last 24 Hr 96 F-96.5 F 82-102 15-27 86-141/53-74 95-97 GENERAL: The patient is awake, alert, oriented HEAD: Normal with no signs of trauma. EYES: Pupils equal, round and reactive to light, NECK no lymphadenopathy LUNGS:no air entry on right side, left side air entry present, no wheez, no rales. HEART: s1s2 normal, ABDOMEN: Soft, nontender, not distended, normoactive bowel sounds, no guarding, no rebound, no masses. scrotal and penile swelling present UPPER EXTREMITIES: 2+ pulses, warm, well-perfused. No cyanosis. No clubbing. Cap refill <2 seconds. .pedal edema decreased LOWER EXTREMITIES: multiple ulcers resent on b/l lower limb, pitting edema decreased Laboratory Results - last 24 hr 06/29/16 06/29/16 06/29/16 16:39 17:30 23:43 WBC RBC Hgb Hct MCV MCHC RDW Plt Count MPV Neutrophils % Lymphocytes % Monocytes % Eosinophils % Basophils % Puncture Site ABG pH ABG pCO2 at Pt Temp ABG pO2 at Pt Temp ABG HCO3 ABG O2 Sat (Measured) ABG O2 Content ABG Base Excess Frankie Test O2 Delivery Device Oxygen Flow Rate Vent Mode Vent Rate Pressure Support Vent Sodium Potassium Chloride Carbon Dioxide Anion Gap BUN Creatinine Creat Clearance w eGFR POC Glucometer [phone] Random Glucose Calcium Phosphorus Magnesium Total Bilirubin AST ALT Alkaline Phosphatase Total Protein Albumin Stool Occult Blood Negative 06/30/16 06/30/16 06/30/16 05:45 05:45 05:51 WBC 4.3 RBC 3.00 L Hgb 8.4 L Hct 26.4 L MCV 88.1 MCHC 31.7 L RDW 18.7 H Plt Count 101 L MPV 10.0 D Neutrophils % 75.5 Lymphocytes % 7.9 L Monocytes % 14.5 H Eosinophils % 1.1 Basophils % 1.0 D Puncture Site ABG pH ABG pCO2 at Pt Temp ABG pO2 at Pt Temp ABG HCO3 ABG O2 Sat (Measured) ABG O2 Content ABG Base Excess Frankie Test O2 Delivery Device Oxygen Flow Rate Vent Mode Vent Rate Pressure Support Vent Sodium 148 H Potassium 3.7 Chloride 108 H Carbon Dioxide 30 Anion Gap 10 BUN 41 H D Creatinine 3.7 H Creat Clearance w eGFR 16.05 POC Glucometer 120.12178 Random Glucose 94 Calcium 8.2 L Phosphorus 3.0 Magnesium 2.0 Total Bilirubin 0.9 D AST 12 L ALT 14 Alkaline Phosphatase 67 Total Protein 5.5 L Albumin 1.9 L Stool Occult Blood 06/30/16 06/30/16 09:30 11:17 WBC RBC Hgb Hct MCV MCHC RDW Plt Count MPV Neutrophils % Lymphocytes % Monocytes % Eosinophils % Basophils % Puncture Site Right radial ABG pH 7.42 ABG pCO2 at Pt Temp 41.9 ABG pO2 at Pt Temp 135.0 H D ABG HCO3 26.9 H ABG O2 Sat (Measured) 99.5 H ABG O2 Content 12.2 L ABG Base Excess 2.8 H Frankie Test Positive O2 Delivery Device Bipap Oxygen Flow Rate 50 Vent Mode Ipap 16 Vent Rate 18 Pressure Support Vent Epap 6 Sodium Potassium Chloride Carbon Dioxide Anion Gap BUN Creatinine Creat Clearance w eGFR POC Glucometer 102.63320 Random Glucose Calcium Phosphorus Magnesium Total Bilirubin AST ALT Alkaline Phosphatase Total Protein Albumin Stool Occult Blood Active Medications Generic Name Dose Route Start Last Admin Trade Name Freq PRN Reason Stop Dose Admin Acetylcysteine 800 mg 06/26/16 18:00 06/30/16 11:10 Mucomyst 20 Oral / Inh Use Only* NEB 800 mg QIDR SISI Administration Albuterol Sulfate 1 amp 06/26/16 18:00 06/30/16 11:10 Ventolin 0.083% Nebulizer Soln - NEB 1 amp QIDR SISI Administration Bacitracin 1 applic 06/26/16 22:00 06/30/16 09:51 Bacitracin - TP 1 applic BID SISI Administration Brimonidine Tartrate 1 drop 06/26/16 22:00 06/30/16 09:49 Alphagan 0.2% - OU 1 drop BID SISI Administration Collagenase 1 applic 06/26/16 22:00 06/30/16 09:50 Santyl - TP 1 applic BID SISI Administration Heparin Sodium (Porcine) 5,000 unit 06/26/16 22:00 06/30/16 10:06 Heparin - SQ 5,000 unit BID SISI Administration Famotidine/Sodium Chloride 50 mls @ 100 mls/hr 06/28/16 10:45 06/30/16 09:47 Pepcid 20 Mg Premixed Ivpb - IVPB 100 mls/hr Q48H SISI Administration Insulin Aspart 1 vial 06/26/16 16:30 06/30/16 11:22 Novolog Vial Sliding Scale - SQ Not Given ACHS SISI Protocol Levothyroxine Sodium 25 mcg 06/27/16 07:00 06/30/16 06:49 Synthroid Injection - IVPUSH 25 mcg AM SISI Administration Sevelamer Carbonate 0.8 gm 06/26/16 17:30 06/30/16 11:22 Renvela Powder Packet - PO Not Given TIDCM SISI Silver Sulfadiazine 1 applic 06/26/16 22:00 06/30/16 09:48 Silvadene - TP 1 applic BID SSII Administration ASSESSMENT/PLAN: shock improved afebrile, wbc decreased , patient could have septic shock with cardiogenic shock monitor vitals monitor intake/ output off dobutamin MAP > 65 sputum : mrsa + completed a course of antibiotics. Id on case cardiology on case hyponatremia resolved abdiaziz on ckd HD as per nephrology avoid nephrotoxic drugs nephrology on case Acute respiratory failure with right side atelectasis keep right side up neb with mucomist and albuterol chest physiotherapy on bipap , keep spo2 .> 90 use bipap in night and hiflow in morning Hyperkalemia resolved on hd acute on chronic LV heart failure avoid Iv fluid daily weight maintain negative balance. monitor IO LV systolic function severly reduced, LV global hypokinesia cardiology on case lactic acidosis improved hypothermia on hector hugger prn h/o cad, A flutter/ fibrillation , chf, global hypokinesia alaquis on hold due to anemia, cardiology on case last echo on 06/10 ef 28 and global hypokinesia anemia hb 8.4 stable will give blood during hd h/o copd not active on albuterol DM on sliding scale follow bgm b/l lower leg ulcer venous ulcer vascular sugery on case sanyl dressing dyllan bandage h/o hypothyroid on synthyroid fluid ; avoid IV fluid electrolyte ; repeat in am nutrition ; diet as per dietary recommendation dvt pro on sq heparin gi pro : on pepcid patient is full code. chest physiotherapy, physical therapy, try to get him out of chair dispo : admit in icu Visit type - Emergency Visit Emergency Visit: Yes ED Registration Date: 06/10/16 Care time: The patient presented to the Emergency Department on the above date and was hospitalized for further evaluation of their emergent condition. - New Patient This patient is new to me today: No - Critical Care Critical Care patient: Yes Total Critical Care Time (in minutes): 45 Critical Care Statement: The care of this patient involved high complexity decision making to prevent further life threatening deterioration of the patient 's condition and/or to evalute & treat vital organ system(s) failure or risk of failure.
[2016-07-01] MEDS ORDERED: PT OWN MED DRAWER 7, Y5N ONE ×2 (05:48→08:39)
[2016-07-01] MEDS: HEPARIN NA (PORCINE) 5,000 UNITS/ML 1ML VIAL SQ SCH ×3 (06:02→21:01)
[2016-07-01] MEDS: LEVOTHYROXINE SODIUM 100 MCG VIAL IVPUSH SCH (06:03)
[2016-07-01] MEDS: INSULIN SLIDING SCALE (NOVOLOG) 1 VIAL SQ SCH ×4 (06:03→21:16)
[2016-07-01] MEDS: ALBUTEROL SO4 0.083% IH SOL 2.5 MG/3 ML VIAL.NEB. NEB SCH ×4 (06:26→23:48)
[2016-07-01] MEDS: ACETYLCYSTEINE 20% 200MG/ML 4 ML VIAL *FOR ORAL / INH USE ONLY NEB SCH ×4 (06:27→23:47)
[2016-07-01 06:34] LABS: BASOPHIL 1.1 % (0-2.0); EOSINOPHIL 0.8 % (0-4.5); MCH 28.3 pg (25.7-33.7); MCHC 32.3 g/dl (32.0-35.9); MEAN CELL VOLUME 87.5 fl (80-96); NEUTROPHILS 74.4 % (42.8-82.8); PLATELET COUNT 114 K/MM3 (134-434); RDW 18.2 % (11.9-15.9); WHITE BLOOD COUNT 5.1 K/mm3 (4.0-10.0)
[2016-07-01 06:51] LABS: ALBUMIN 1.9 g/dl (3.4-5.0); CALCIUM 8.3 mg/dL (8.5-10.1)
[2016-07-01 06:55] LABS: COCKROFT - GAULT 19.06; CREATININE 4.4 mg/dL (0.7-1.3); TOT PROT 5.5 g/dl (6.4-8.2)
[2016-07-01 07:51] LABS: ARTERIAL BLD GAS O2 SATURATION 99.4 % (90-98.9); ARTERIAL BLOOD GAS BASE EXCESS 1.3 meq/l (-2-2); ARTERIAL BLOOD GAS HCO3 25.5 meq/L (22-26); ARTERIAL BLOOD GAS pH 7.41 (7.35-7.45)
[2016-07-01 07:52] LABS: ALLENS TEST POSITIVE; ART PUNCT SITE RIGHT RADIAL; LPM/O2% 50%; PT. ON O2? YES; TYPE OF O2 FACE TENT
[2016-07-01] MEDS: SEVELAMER CARBONATE 0.8 GM POWDER PACKET PO SCH ×3 (08:47→18:03)
[2016-07-01] MEDS: BRIMONIDINE TARTRATE 0.2% OPHTHALMIC 5 ML BOTTLE OU SCH ×2 (11:35→21:01)
[2016-07-01] MEDS: BACITRACIN 30 GM TUBE TOPICAL OINTMENT TP SCH ×2 (11:36→21:03)
[2016-07-01] MEDS: COLLAGENASE CLOSTRIDIUM HIST. 30 GRAMS TUBE TP SCH ×2 (11:36→21:02)
[2016-07-01] MEDS: SILVER SULFADIAZINE 1% TOP CREAM 50 GM JAR TP SCH ×2 (11:37→21:02)
--- NOTE | 2016-07-01 12:05 | PN ---
Progress Note, SALES ORDER CLERK - Note Progress Note: Selected Entries 06/30/16 06/30/16 06/30/16 02:00 06:00 10:00 Breakfast Temperature 96.5 F L 96.3 F L 96.5 F L 06/30/16 06/30/16 06/30/16 14:00 20:00 22:00 Breakfast Temperature 98.6 F 99.0 F 98.8 F 07/01/16 07/01/16 07/01/16 02:00 06:00 08:00 Breakfast Temperature 97.9 F 99.1 F 98.9 F 07/01/16 07/01/16 07/01/16 09:06 09:58 10:53 Breakfast 75% Temperature 99 F 99.0 F Reported to eat well this am, puree and nectar thick liquid. Eyes closed for me. Nonverbal and did not follow commands. Looks comfortable. Now on 02 tent mask. To continue to feed when alert. Encourage supplements b/n meals if alert. Magic cup/ensure compact.
--- NOTE | 2016-07-01 12:57 | PN ---
Teaching Attending Note Name of Resident: Patricio Andrade ATTENDING PHYSICIAN STATEMENT I saw and evaluated the patient. I reviewed the resident's note and discussed the case with the resident. I agree with the resident's findings and plan as documented. SUBJECTIVE: Pt seen and examined in the ICU. Alert this AM but currently somnolent. Back on BiPAP. OBJECTIVE: Last Vital Signs Temp Pulse Resp BP Pulse Ox 99.0 F 105 H 24 103/69 97 07/01/16 10:53 07/01/16 12:19 07/01/16 10:53 07/01/16 12:19 07/01/16 09:57 Intake & Output 06/28/16 06/29/16 06/30/16 07/01/16 23:59 23:59 23:59 23:59 Intake Total 95 175 100 50 Output Total 25 25 100 25 Balance 70 150 0 25 Weight 212 lb 1.6 oz 210 lb 213 lb 6.519 oz 208 lb 1.6 oz Gen: somnolent but arousable Heart: tachycardic, regular Lung: scattered rhonchi Abd: soft, nontender Ext: + edema CBC, BMP 07/01/16 05:50 07/01/16 05:50 Active Medications Acetylcysteine (Mucomyst 20 Oral / Inh Use Only*) 800 mg NEB QIDR [facility] [place] Last Admin: 07/01/16 10:50 Dose: 800 mg Albuterol Sulfate (Ventolin 0.083% Nebulizer Soln -) 1 amp NEB QIDR [facility] [place] Last Admin: 07/01/16 10:50 Dose: 1 amp Bacitracin (Bacitracin -) 1 applic TP BID [facility] [place] Last Admin: 07/01/16 11:36 Dose: 1 applic Brimonidine Tartrate (Alphagan 0.2% -) 1 drop OU BID [facility] [place] Last Admin: 07/01/16 11:35 Dose: 1 drop Collagenase (Santyl -) 1 applic TP BID [facility] [place] Last Admin: 07/01/16 11:36 Dose: 1 applic Heparin Sodium (Porcine) (Heparin -) 5,000 unit SQ TID [facility] [place] Last Admin: 07/01/16 06:02 Dose: 5,000 unit Famotidine/Sodium Chloride (Pepcid 20 Mg Premixed Ivpb -) 50 mls @ 100 mls/hr IVPB Q48H [facility] [place] Last Admin: 06/30/16 09:47 Dose: 100 mls/hr Insulin Aspart (Novolog Vial Sliding Scale -) 1 vial SQ ACHS [facility] [place] PRN Reason: Protocol Last Admin: 07/01/16 11:37 Dose: Not Given Levothyroxine Sodium (Synthroid Injection -) 25 mcg IVPUSH AM [facility] [place] Last Admin: 07/01/16 06:03 Dose: 25 mcg Sevelamer Carbonate (Renvela Powder Packet -) 0.8 gm PO TIDCM [facility] [place] Last Admin: 07/01/16 11:38 Dose: 0.8 gm Silver Sulfadiazine (Silvadene -) 1 applic TP BID [facility] [place] Last Admin: 07/01/16 11:37 Dose: 1 applic ASSESSMENT AND PLAN: s/p Acute Respiratory Failure Back/Shoulder Cellulitis/Abscess Septic vs Cardiogenic Shock Acute on Chronic Renal Failure Metabolic Acidosis Acute on Chronic LV Systolic Heart Failure Atrial Fibrillation COPD Atelectasis improving - HD per renal - s/p antibiotic course - O2 to keep SpO2 >90% - aspiration precautions - inhaled bronchodilators with mucolytics - PO as tolerated - DVT/GI prophylaxis - rehab/PT - continue ICU monitoring for tenuous respiratory status - continue discussions regarding goals of care - ?LTAC candidate critical care time spent reviewing chart, evaluating patient and formulating plan 35 min
--- NOTE | 2016-07-01 13:06 | PN ---
Physical Exam: SUBJECTIVE: Patient seen and examined no new event over night. OBJECTIVE: Vital Signs Period Temp Pulse Resp BP Sys/Hubbard Pulse Ox Last 24 Hr 97.9 F-99.1 F 102-107 20-30 80-118/56-94 95-100 GENERAL: The patient is awake, alert, oriented HEAD: Normal with no signs of trauma. EYES: Pupils equal, round and reactive to light, NECK no lymphadenopathy LUNGS:no air entry on right side, left side air entry present, no wheez, no rales. HEART: s1s2 normal, ABDOMEN: Soft, nontender, not distended, normoactive bowel sounds, no guarding, no rebound, no masses. scrotal and penile swelling present UPPER EXTREMITIES: 2+ pulses, warm, well-perfused. No cyanosis. No clubbing. Cap refill <2 seconds. .pedal edema decreased LOWER EXTREMITIES: multiple ulcers resent on b/l lower limb, pitting edema decreased Laboratory Results - last 24 hr 06/27/16 06/30/16 06/30/16 18:40 11:17 17:03 WBC RBC Hgb Hct MCV MCHC RDW Plt Count MPV Neutrophils % Lymphocytes % Monocytes % Eosinophils % Basophils % Puncture Site ABG pH ABG pCO2 at Pt Temp ABG pO2 at Pt Temp ABG HCO3 ABG O2 Sat (Measured) ABG O2 Content ABG Base Excess Frankie Test O2 Delivery Device Oxygen Flow Rate PEEP Sodium Potassium Chloride Carbon Dioxide Anion Gap BUN Creatinine Creat Clearance w eGFR POC Glucometer 102.47840 115.59573 Random Glucose Calcium Total Bilirubin AST ALT Alkaline Phosphatase Total Protein Albumin Blood Type A POSITIVE Antibody Screen Negative Crossmatch See Detail 06/30/16 07/01/16 07/01/16 21:21 05:50 05:50 WBC 5.1 RBC 3.10 L Hgb 8.8 L Hct 27.1 L MCV 87.5 MCHC 32.3 RDW 18.2 H Plt Count 114 L MPV 10.0 Neutrophils % 74.4 Lymphocytes % 8.3 Monocytes % 15.4 H Eosinophils % 0.8 Basophils % 1.1 Puncture Site ABG pH ABG pCO2 at Pt Temp ABG pO2 at Pt Temp ABG HCO3 ABG O2 Sat (Measured) ABG O2 Content ABG Base Excess Frankie Test O2 Delivery Device Oxygen Flow Rate PEEP Sodium 149 H Potassium 4.0 Chloride 110 H Carbon Dioxide 31 Anion Gap 8 BUN 48 H Creatinine 4.4 H Creat Clearance w eGFR 13.14 POC Glucometer 113.60883 Random Glucose 64 L D Calcium 8.3 L Total Bilirubin 1.0 AST 10 L ALT 14 Alkaline Phosphatase 68 Total Protein 5.5 L Albumin 1.9 L Blood Type Antibody Screen Crossmatch 07/01/16 07/01/16 07/01/16 05:58 07:20 10:50 WBC RBC Hgb Hct MCV MCHC RDW Plt Count MPV Neutrophils % Lymphocytes % Monocytes % Eosinophils % Basophils % Puncture Site Right radial ABG pH 7.41 ABG pCO2 at Pt Temp 40.9 ABG pO2 at Pt Temp 131.0 H ABG HCO3 25.5 ABG O2 Sat (Measured) 99.4 H ABG O2 Content 12.3 L ABG Base Excess 1.3 Frankie Test Positive O2 Delivery Device Face tent Oxygen Flow Rate 50% PEEP 0.0 Sodium Potassium Chloride Carbon Dioxide Anion Gap BUN Creatinine Creat Clearance w eGFR POC Glucometer 113.64822 154.47893 Random Glucose Calcium Total Bilirubin AST ALT Alkaline Phosphatase Total Protein Albumin Blood Type Antibody Screen Crossmatch Active Medications Generic Name Dose Route Start Last Admin Trade Name Freq PRN Reason Stop Dose Admin Acetylcysteine 800 mg 06/26/16 18:00 07/01/16 10:50 Mucomyst 20 Oral / Inh Use Only* NEB 800 mg QIDR SISI Administration Albuterol Sulfate 1 amp 06/26/16 18:00 07/01/16 10:50 Ventolin 0.083% Nebulizer Soln - NEB 1 amp QIDR SISI Administration Bacitracin 1 applic 06/26/16 22:00 07/01/16 11:36 Bacitracin - TP 1 applic BID SISI Administration Brimonidine Tartrate 1 drop 06/26/16 22:00 07/01/16 11:35 Alphagan 0.2% - OU 1 drop BID SISI Administration Collagenase 1 applic 06/26/16 22:00 07/01/16 11:36 Santyl - TP 1 applic BID SISI Administration Heparin Sodium (Porcine) 5,000 unit 06/30/16 14:00 07/01/16 06:02 Heparin - SQ 5,000 unit TID [facility]ISI Administration Famotidine/Sodium Chloride 50 mls @ 100 mls/hr 06/28/16 10:45 06/30/16 09:47 Pepcid 20 Mg Premixed Ivpb - IVPB 100 mls/hr Q48H [facility]I Administration Insulin Aspart 1 vial 06/26/16 16:30 07/01/16 11:37 Novolog Vial Sliding Scale - SQ Not Given ACHS [facility]I Protocol Levothyroxine Sodium 25 mcg 06/27/16 07:00 07/01/16 06:03 Synthroid Injection - IVPUSH 25 mcg AM [facility]ISI Administration Sevelamer Carbonate 0.8 gm 06/26/16 17:30 07/01/16 11:38 Renvela Powder Packet - PO 0.8 gm TIDCM SISI Administration Silver Sulfadiazine 1 applic 06/26/16 22:00 07/01/16 11:37 Silvadene - TP 1 applic BID SISI Administration ASSESSMENT/PLAN: shock improved afebrile, wbc decreased , patient could have septic shock with cardiogenic shock monitor vitals monitor intake/ output off dobutamin MAP > 65 sputum : mrsa + completed a course of antibiotics. Id on case cardiology on case hyponatremia resolved abdiaziz on ckd HD as per nephrology avoid nephrotoxic drugs nephrology on case Acute respiratory failure with right side atelectasis keep right side up neb with mucomist and albuterol chest physiotherapy use bipap in night and hiflow in morning Hyperkalemia resolved on hd acute on chronic LV heart failure avoid Iv fluid daily weight maintain negative balance. monitor IO LV systolic function severly reduced, LV global hypokinesia cardiology on case lactic acidosis improved hypothermia on hector hugger prn h/o cad, A flutter/ fibrillation , chf, global hypokinesia alaquis on hold due to anemia, cardiology on case last echo on 06/10 ef 28 and global hypokinesia anemia hb stable will give blood during hd h/o copd not active on albuterol DM on sliding scale follow bgm b/l lower leg ulcer venous ulcer vascular sugery on case santyl dressing dyllan bandage h/o hypothyroid on synthyroid fluid ; avoid IV fluid electrolyte ; repeat in am nutrition ; diet as per dietary recommendation dvt pro on sq heparin gi pro : on pepcid patient is full code. chest physiotherapy, physical therapy, dispo : admit in icu Visit type - Emergency Visit Emergency Visit: Yes ED Registration Date: 06/10/16 Care time: The patient presented to the Emergency Department on the above date and was hospitalized for further evaluation of their emergent condition. - New Patient This patient is new to me today: No - Critical Care Critical Care patient: Yes Total Critical Care Time (in minutes): 45 Critical Care Statement: The care of this patient involved high complexity decision making to prevent further life threatening deterioration of the patient 's condition and/or to evalute & treat vital organ system(s) failure or risk of failure.
[2016-07-01] MEDS ORDERED: INSULIN (NOVOLOG) ASPART 100 UNITS/ML 10ML VIAL ONE (16:25)
--- NOTE | 2016-07-01 17:15 | PN ---
Progress Note, Physician History of Present Illness: Pt seen and examined at bedside. He remains oliguric. He remains in the ICU. - Current Medication List Current Medications: Active Medications Acetylcysteine (Mucomyst 20 Oral / Inh Use Only*) 800 mg NEB QIDR [facility] Last Admin: 07/01/16 10:50 Dose: 800 mg Albuterol Sulfate (Ventolin 0.083% Nebulizer Soln -) 1 amp NEB QIDR [facility] Last Admin: 07/01/16 10:50 Dose: 1 amp Bacitracin (Bacitracin -) 1 applic TP BID [facility] Last Admin: 07/01/16 11:36 Dose: 1 applic Brimonidine Tartrate (Alphagan 0.2% -) 1 drop OU BID [facility] Last Admin: 07/01/16 11:35 Dose: 1 drop Collagenase (Santyl -) 1 applic TP BID [facility] Last Admin: 07/01/16 11:36 Dose: 1 applic Heparin Sodium (Porcine) (Heparin -) 5,000 unit SQ TID [facility] Last Admin: 07/01/16 14:38 Dose: 5,000 unit Famotidine/Sodium Chloride (Pepcid 20 Mg Premixed Ivpb -) 50 mls @ 100 mls/hr IVPB Q48H [facility] Last Admin: 06/30/16 09:47 Dose: 100 mls/hr Insulin Aspart (Novolog Vial Sliding Scale -) 1 vial SQ ACHS [facility] PRN Reason: Protocol Last Admin: 07/01/16 16:26 Dose: 2 units Levothyroxine Sodium (Synthroid Injection -) 25 mcg IVPUSH AM [facility] Last Admin: 07/01/16 06:03 Dose: 25 mcg Sevelamer Carbonate (Renvela Powder Packet -) 0.8 gm PO TIDCM [facility]CLUDES [facility] Last Admin: 07/01/16 11:38 Dose: 0.8 gm Silver Sulfadiazine (Silvadene -) 1 applic TP BID [facility] Last Admin: 07/01/16 11:37 Dose: 1 applic - Objective Vital Signs: Vital Signs Temperature 98.4 F 07/01/16 17:00 Pulse Rate 105 H 07/01/16 17:00 Respiratory Rate 22 07/01/16 17:00 Blood Pressure 115/72 07/01/16 17:00 O2 Sat by Pulse Oximetry (%) 98 07/01/16 11:55 Constitutional: Yes: Calm Eyes: Yes: Conjunctiva Clear HENT: Yes: Atraumatic Cardiovascular: Yes: S1, S2 Respiratory: Yes: On Venti-Mask Gastrointestinal: Yes: Soft Genitourinary: Yes: López Present, Oliguria Musculoskeletal: Yes: Muscle Weakness Edema: Yes Edema: LLE: 2+, RLE: 2+ Integumentary: Yes: Venous Stasis Changes Neurological: Yes: Other (drowsy) Labs: CBC, BMP 07/01/16 05:50 07/01/16 05:50 INR, PTT INR 1.85 (0.82-1.09) H 06/11/16 05:15 Fibrinogen 405.0 mg/dL (238-498) 06/10/16 04:45 - ....Imaging Chest X-ray: Report Reviewed Problem List - Problems (1) Acute hyperkalemia Code(s): E87.5 - HYPERKALEMIA (2) Hyponatremia Code(s): E87.1 - HYPO-OSMOLALITY AND HYPONATREMIA (3) Hypotension Code(s): I95.9 - HYPOTENSION, UNSPECIFIED Qualifiers: Qualified Code(s): I95.89 - Other hypotension (4) Acute on chronic renal failure Code(s): N17.9 - ACUTE KIDNEY FAILURE, UNSPECIFIED N18.9 - CHRONIC KIDNEY DISEASE, UNSPECIFIED (5) Anemia Code(s): D64.9 - ANEMIA, UNSPECIFIED Qualifiers: Qualified Code(s): N18.9 - Chronic kidney disease, unspecified; D63.1 - Anemia in chronic kidney disease (6) COPD (chronic obstructive pulmonary disease) Code(s): J44.9 - CHRONIC OBSTRUCTIVE PULMONARY DISEASE, UNSPECIFIED (7) Congestive heart failure (CHF) Code(s): I50.9 - HEART FAILURE, UNSPECIFIED Qualifiers: Qualified Code(s): I50.22 - Chronic systolic (congestive) heart failure (8) DMII (diabetes mellitus, type 2) Code(s): E11.9 - TYPE 2 DIABETES MELLITUS WITHOUT COMPLICATIONS (9) CKD (chronic kidney disease) Code(s): N18.9 - CHRONIC KIDNEY DISEASE, UNSPECIFIED Assessment/Plan Current Medications Generic Name Dose Route Start Last Admin Trade Name Freq PRN Reason Stop Dose Admin Acetylcysteine 800 mg 06/26/16 18:00 07/01/16 10:50 Mucomyst 20 Oral / Inh Use Only* NEB 800 mg QIDR [facility] Administration Albuterol Sulfate 1 amp 06/26/16 18:00 07/01/16 10:50 Ventolin 0.083% Nebulizer Soln - NEB 1 amp QIDR [facility] Administration Bacitracin 1 applic 06/26/16 22:00 07/01/16 11:36 Bacitracin - TP 1 applic BID [facility]I Administration Brimonidine Tartrate 1 drop 06/26/16 22:00 07/01/16 11:35 Alphagan 0.2% - OU 1 drop BID [facility]I Administration Collagenase 1 applic 06/26/16 22:00 07/01/16 11:36 Santyl - TP 1 applic BID [facility] Administration Heparin Sodium (Porcine) 5,000 unit 06/30/16 14:00 07/01/16 14:38 Heparin - SQ 5,000 unit TID [facility] Administration Famotidine/Sodium Chloride 50 mls @ 100 mls/hr 06/28/16 10:45 06/30/16 09:47 Pepcid 20 Mg Premixed Ivpb - IVPB 100 mls/hr Q48H [facility] Administration Insulin Aspart 1 vial 06/26/16 16:30 07/01/16 16:26 Novolog Vial Sliding Scale - SQ 2 units ACHS [facility] Administration Protocol Levothyroxine Sodium 25 mcg 06/27/16 07:00 07/01/16 06:03 Synthroid Injection - IVPUSH 25 mcg AM [facility] Administration Sevelamer Carbonate 0.8 gm 06/26/16 17:30 07/01/16 11:38 Renvela Powder Packet - PO 0.8 gm TIDCM [facility] Administration Silver Sulfadiazine 1 applic 06/26/16 22:00 07/01/16 11:37 Silvadene - TP 1 applic BID [facility] Administration Impression 1. CASE on CKD 2. sepsis with shock 3. cellulitis/abscess of back 4. CHF acute 5. hypothyroidism 6. hyperlipidemia 7. COPD 8. htn 9. a-fib 10. hyponatremia - isoosmolar 11. acute respiratory failure requiring intubation Plan - HD today - cxr shows improvement - cont current meds - monitor urine output for signs of recovery - monitor blood pressure - wound care to legs - cont Bipap as needed - will continue to follow Dr Martinez
--- NOTE | 2016-07-01 21:40 | PN ---
Progress Note, Physician Chief Complaint: ALERT AND ORIENTED X 1 BIPAP ON HD IN PROGRESS - Current Medication List Current Medications: Active Medications Acetylcysteine (Mucomyst 20 Oral / Inh Use Only*) 800 mg NEB QIDR [facility] Last Admin: 07/01/16 17:25 Dose: 800 mg Albuterol Sulfate (Ventolin 0.083% Nebulizer Soln -) 1 amp NEB QIDR [facility] Last Admin: 07/01/16 17:25 Dose: 1 amp Bacitracin (Bacitracin -) 1 applic TP BID [facility] Last Admin: 07/01/16 21:03 Dose: 1 applic Brimonidine Tartrate (Alphagan 0.2% -) 1 drop OU BID [facility] Last Admin: 07/01/16 21:01 Dose: 1 drop Collagenase (Santyl -) 1 applic TP BID [facility] Last Admin: 07/01/16 21:02 Dose: 1 applic Heparin Sodium (Porcine) (Heparin -) 5,000 unit SQ TID [facility] Last Admin: 07/01/16 21:01 Dose: 5,000 unit Famotidine/Sodium Chloride (Pepcid 20 Mg Premixed Ivpb -) 50 mls @ 100 mls/hr IVPB Q48H [facility] Last Admin: 06/30/16 09:47 Dose: 100 mls/hr Insulin Aspart (Novolog Vial Sliding Scale -) 1 vial SQ ACHS [facility] PRN Reason: Protocol Last Admin: 07/01/16 21:16 Dose: 2 units Levothyroxine Sodium (Synthroid Injection -) 25 mcg IVPUSH AM [facility] Last Admin: 07/01/16 06:03 Dose: 25 mcg Sevelamer Carbonate (Renvela Powder Packet -) 0.8 gm PO TIDCM [facility] Last Admin: 07/01/16 18:03 Dose: 0.8 gm Silver Sulfadiazine (Silvadene -) 1 applic TP BID [facility] Last Admin: 07/01/16 21:02 Dose: 1 applic - Objective Vital Signs: Vital Signs Temperature 98.4 F 07/01/16 19:00 Pulse Rate 105 H 07/01/16 19:00 Respiratory Rate 25 H 07/01/16 20:28 Blood Pressure 103/75 07/01/16 19:00 O2 Sat by Pulse Oximetry (%) 99 07/01/16 20:28 Constitutional: Yes: Moderate Distress Eyes: Yes: WNL HENT: Yes: WNL Neck: Yes: WNL Cardiovascular: Yes: Pulse Irregular Respiratory: Yes: On BiPap, Poor Air Entry Gastrointestinal: Yes: WNL Genitourinary: Yes: López Present Edema: Yes Edema: LLE: 2+, RLE: 2+ Peripheral Pulses WNL: Yes Integumentary: Yes: Pressure Ulcer, Rash, Venous Stasis Changes Wound/Incision: Yes: Draining, Reddened, Unapproximated Neurological: Yes: Confusion, Pre-Existing Deficit, Unsteady Gait, Weakness ...Motor Strength: LLE, RLE Psychiatric: Yes: Agitated Labs: CBC, BMP 07/01/16 05:50 07/01/16 05:50 INR, PTT INR 1.85 (0.82-1.09) H 06/11/16 05:15 Fibrinogen 405.0 mg/dL (238-498) 06/10/16 04:45 Problem List - Problems (1) CKD (chronic kidney disease) Code(s): N18.9 - CHRONIC KIDNEY DISEASE, UNSPECIFIED (2) Hyponatremia Code(s): E87.1 - HYPO-OSMOLALITY AND HYPONATREMIA (3) Hypotension Code(s): I95.9 - HYPOTENSION, UNSPECIFIED Qualifiers: Qualified Code(s): I95.89 - Other hypotension (4) Lung consolidation Code(s): J18.1 - LOBAR PNEUMONIA, UNSPECIFIED ORGANISM (5) Anemia Code(s): D64.9 - ANEMIA, UNSPECIFIED Qualifiers: Qualified Code(s): N18.9 - Chronic kidney disease, unspecified; D63.1 - Anemia in chronic kidney disease (6) Atrial flutter Code(s): I48.92 - UNSPECIFIED ATRIAL FLUTTER (7) Bacteremia Code(s): R78.81 - BACTEREMIA (8) COPD (chronic obstructive pulmonary disease) Code(s): J44.9 - CHRONIC OBSTRUCTIVE PULMONARY DISEASE, UNSPECIFIED (9) DMII (diabetes mellitus, type 2) Code(s): E11.9 - TYPE 2 DIABETES MELLITUS WITHOUT COMPLICATIONS (10) Dyspnea Code(s): R06.00 - DYSPNEA, UNSPECIFIED Qualifiers: Qualified Code(s): R06.02 - Shortness of breath (11) Pressure ulcer of lower extremity, stage 1 Code(s): L89.891 - PRESSURE ULCER OF OTHER SITE, STAGE 1 (12) Sepsis Code(s): A41.9 - SEPSIS, UNSPECIFIED ORGANISM Qualifiers: Qualified Code(s): A41.9 - Sepsis, unspecified organism (13) Weakness of both lower limbs Code(s): M62.81 - MUSCLE WEAKNESS (GENERALIZED) (14) Wound of left shoulder Code(s): S41.002A - UNSPECIFIED OPEN WOUND OF LEFT SHOULDER, INITIAL ENCOUNTER Qualifiers: Qualified Code(s): S41.002D - Unspecified open wound of left shoulder, subsequent encounter (15) Acute respiratory distress Code(s): R06.00 - DYSPNEA, UNSPECIFIED Assessment/Plan CPAP CONTINUED HD PER RENAL ACUTE REHAB NEEDED PATIENT HAS A POOR QUALITY OF LIFE DISCUSSED WITH HIS BROTHER MARCIO CAN SEND TO REHAB FOR COAT FELLER TREATMENT WILL NEED HD, PULMONARY AND CARDIOLOGY MONITORING POOR PROGNOSIS
[2016-07-02] MEDS ORDERED: PT OWN MED DRAWER 7, Y5N ONE ×3 (05:29→17:16)
[2016-07-02] MEDS: LEVOTHYROXINE SODIUM 100 MCG VIAL IVPUSH SCH (06:05)
[2016-07-02] MEDS: HEPARIN NA (PORCINE) 5,000 UNITS/ML 1ML VIAL SQ SCH ×3 (06:05→21:27)
[2016-07-02] MEDS: INSULIN SLIDING SCALE (NOVOLOG) 1 VIAL SQ SCH ×4 (06:05→21:28)
[2016-07-02 06:15] LABS: BASOPHIL 1.1 % (0-2.0); MCH 29.2 pg (25.7-33.7); MCHC 33.6 g/dl (32.0-35.9); MEAN CELL VOLUME 86.9 fl (80-96); MEAN PLT VOLUME 8.7 fl (7.5-11.1); NEUTROPHILS 73.5 % (42.8-82.8); PLATELET COUNT 97 K/MM3 (134-434); RDW 17.7 % (11.9-15.9); WHITE BLOOD COUNT 5.6 K/mm3 (4.0-10.0)
[2016-07-02] MEDS: ACETYLCYSTEINE 20% 200MG/ML 4 ML VIAL *FOR ORAL / INH USE ONLY NEB SCH ×3 (06:50→18:00)
[2016-07-02] MEDS: ALBUTEROL SO4 0.083% IH SOL 2.5 MG/3 ML VIAL.NEB. NEB SCH ×3 (06:51→18:00)
[2016-07-02 06:52] LABS: ALBUMIN 1.7 g/dl (3.4-5.0); CALCIUM 7.8 mg/dL (8.5-10.1); COCKROFT - GAULT 23.9; CREATININE 3.4 mg/dL (0.7-1.3); TOT PROT 5.2 g/dl (6.4-8.2)
[2016-07-02] MEDS: SEVELAMER CARBONATE 0.8 GM POWDER PACKET PO SCH ×3 (08:39→17:21)
[2016-07-02] MEDS: BRIMONIDINE TARTRATE 0.2% OPHTHALMIC 5 ML BOTTLE OU SCH ×2 (10:48→21:29)
[2016-07-02] MEDS: COLLAGENASE CLOSTRIDIUM HIST. 30 GRAMS TUBE TP SCH ×2 (10:49→21:29)
[2016-07-02] MEDS: BACITRACIN 30 GM TUBE TOPICAL OINTMENT TP SCH ×2 (10:49→21:30)
[2016-07-02] MEDS: FAMOTIDINE 20 MG/50 ML IVPB 50 ML IVPB SCH (10:50)
[2016-07-02] MEDS: SILVER SULFADIAZINE 1% TOP CREAM 50 GM JAR TP SCH ×2 (10:50→21:28)
--- NOTE | 2016-07-02 11:13 | PN ---
Progress Note, Physician Chief Complaint: AWAKE , UNABLE TO SPEAK CLEARLY WITH 02 MASK AND LETHARGY - Current Medication List Current Medications: Active Medications Acetylcysteine (Mucomyst 20 Oral / Inh Use Only*) 800 mg NEB QIDR [facility] Last Admin: 07/02/16 06:50 Dose: 800 mg Albuterol Sulfate (Ventolin 0.083% Nebulizer Soln -) 1 amp NEB QIDR [facility] Last Admin: 07/02/16 06:51 Dose: 1 amp Bacitracin (Bacitracin -) 1 applic TP BID [facility] Last Admin: 07/02/16 10:49 Dose: 1 applic Brimonidine Tartrate (Alphagan 0.2% -) 1 drop OU BID [facility] Last Admin: 07/02/16 10:48 Dose: 1 drop Collagenase (Santyl -) 1 applic TP BID [facility] Last Admin: 07/02/16 10:49 Dose: 1 applic Heparin Sodium (Porcine) (Heparin -) 5,000 unit SQ TID [facility] Last Admin: 07/02/16 06:05 Dose: 5,000 unit Famotidine/Sodium Chloride (Pepcid 20 Mg Premixed Ivpb -) 50 mls @ 100 mls/hr IVPB Q48H [facility] Last Admin: 07/02/16 10:50 Dose: 100 mls/hr Insulin Aspart (Novolog Vial Sliding Scale -) 1 vial SQ ACHS [facility] PRN Reason: Protocol Last Admin: 07/02/16 06:05 Dose: Not Given Levothyroxine Sodium (Synthroid Injection -) 25 mcg IVPUSH AM [facility] Last Admin: 07/02/16 06:05 Dose: 25 mcg Sevelamer Carbonate (Renvela Powder Packet -) 0.8 gm PO TIDCM [facility] Last Admin: 07/02/16 08:39 Dose: 0.8 gm Silver Sulfadiazine (Silvadene -) 1 applic TP BID [facility] Last Admin: 07/02/16 10:50 Dose: 1 applic - Objective Vital Signs: Vital Signs Temperature 97.7 F 07/02/16 10:00 Pulse Rate 93 H 07/02/16 10:10 Respiratory Rate 24 07/02/16 10:00 Blood Pressure 86/63 07/02/16 10:00 O2 Sat by Pulse Oximetry (%) 100 07/02/16 10:10 Constitutional: Yes: Moderate Distress Eyes: Yes: WNL, Occular Prosthesis Neck: Yes: WNL Cardiovascular: Yes: Pulse Irregular, Murmur Respiratory: Yes: Diminished, On Venti-Mask, Rales, SOB Gastrointestinal: Yes: WNL ...Rectal Exam: Yes: Other Genitourinary: Yes: López Present Musculoskeletal: Yes: Muscle Weakness Extremities: Yes: Other Edema: Yes Edema: LLE: 2+, RLE: 2+ Peripheral Pulses WNL: Yes Integumentary: Yes: WNL, Pressure Ulcer, Venous Stasis Changes Wound/Incision: Yes: Dressing Dry and Intact, Other Neurological: Yes: Pre-Existing Deficit, Weakness ...Motor Strength: LLE, RLE Psychiatric: Yes: Other Labs: CBC, BMP 07/02/16 05:15 07/02/16 05:15 INR, PTT INR 1.85 (0.82-1.09) H 06/11/16 05:15 Fibrinogen 405.0 mg/dL (238-498) 06/10/16 04:45 Problem List - Problems (1) CKD (chronic kidney disease) Code(s): N18.9 - CHRONIC KIDNEY DISEASE, UNSPECIFIED (2) Hyponatremia Code(s): E87.1 - HYPO-OSMOLALITY AND HYPONATREMIA (3) Hypotension Code(s): I95.9 - HYPOTENSION, UNSPECIFIED Qualifiers: Qualified Code(s): I95.89 - Other hypotension (4) Lung consolidation Code(s): J18.1 - LOBAR PNEUMONIA, UNSPECIFIED ORGANISM (5) Anemia Code(s): D64.9 - ANEMIA, UNSPECIFIED Qualifiers: Qualified Code(s): N18.9 - Chronic kidney disease, unspecified; D63.1 - Anemia in chronic kidney disease (6) Atrial flutter Code(s): I48.92 - UNSPECIFIED ATRIAL FLUTTER (7) Bacteremia Code(s): R78.81 - BACTEREMIA (8) COPD (chronic obstructive pulmonary disease) Code(s): J44.9 - CHRONIC OBSTRUCTIVE PULMONARY DISEASE, UNSPECIFIED (9) DMII (diabetes mellitus, type 2) Code(s): E11.9 - TYPE 2 DIABETES MELLITUS WITHOUT COMPLICATIONS (10) Dyspnea Code(s): R06.00 - DYSPNEA, UNSPECIFIED Qualifiers: Qualified Code(s): R06.02 - Shortness of breath (11) Pressure ulcer of lower extremity, stage 1 Code(s): L89.891 - PRESSURE ULCER OF OTHER SITE, STAGE 1 (12) Sepsis Code(s): A41.9 - SEPSIS, UNSPECIFIED ORGANISM Qualifiers: Qualified Code(s): A41.9 - Sepsis, unspecified organism (13) Weakness of both lower limbs Code(s): M62.81 - MUSCLE WEAKNESS (GENERALIZED) (14) Wound of left shoulder Code(s): S41.002A - UNSPECIFIED OPEN WOUND OF LEFT SHOULDER, INITIAL ENCOUNTER Qualifiers: Qualified Code(s): S41.002D - Unspecified open wound of left shoulder, subsequent encounter (15) Acute respiratory distress Code(s): R06.00 - DYSPNEA, UNSPECIFIED Assessment/Plan CPAP CONTINUED VENTIMASK NEEDED KEEP 02 SAT >905 HD PER RENAL LUNG WORSE ON CXR TODAY PULM/CARDIO INPUT APPRECIATED ACUTE REHAB NEEDED PATIENT HAS A POOR QUALITY OF LIFE DISCUSSED WITH HIS BROTHER MARCIO CAN SEND TO REHAB FOR MACHINE OVERHAULER TREATMENT WILL NEED HD, PULMONARY AND CARDIOLOGY MONITORING POOR PROGNOSIS
--- NOTE | 2016-07-02 11:47 | PN ---
Physical Exam: SUBJECTIVE: Patient seen and examined condition of patient explained to his niece yesterday. need for LCAT explained to niece was also explained. Patient has no new course over night eating 50-75 % of his meal. started on ventuary mask OBJECTIVE: Vital Signs Period Temp Pulse Resp BP Sys/Hubbard Pulse Ox Last 24 Hr 97.7 F-98.4 F 82-105 20-34 86-115/58-80 95-100 GENERAL: The patient is awake, alert, oriented HEAD: Normal with no signs of trauma. EYES: Pupils equal, round and reactive to light, NECK no lymphadenopathy LUNGS:, left side air entry present, right side air entry decreased , no wheez, no rales. HEART: s1s2 normal, ABDOMEN: Soft, nontender, not distended, normoactive bowel sounds, no guarding, no rebound, no masses. scrotal and penile swelling present UPPER EXTREMITIES: 2+ pulses, warm, well-perfused. No cyanosis. No clubbing. Cap refill <2 seconds. .pedal edema decreased LOWER EXTREMITIES: multiple ulcers resent on b/l lower limb, pitting edema decreased Laboratory Results - last 24 hr 06/27/16 07/01/16 07/01/16 18:40 16:19 21:13 WBC RBC Hgb Hct MCV MCHC RDW Plt Count MPV Neutrophils % Lymphocytes % Monocytes % Eosinophils % Basophils % Sodium Potassium Chloride Carbon Dioxide Anion Gap BUN Creatinine Creat Clearance w eGFR POC Glucometer [phone] Random Glucose Calcium Total Bilirubin AST ALT Alkaline Phosphatase Total Protein Albumin Blood Type A POSITIVE Antibody Screen Negative Crossmatch See Detail 07/02/16 07/02/16 07/02/16 05:15 05:15 06:02 WBC 5.6 RBC 2.97 L Hgb 8.7 L Hct 25.8 L MCV 86.9 MCHC 33.6 RDW 17.7 H Plt Count 97 L MPV 8.7 D Neutrophils % 73.5 Lymphocytes % 7.7 L Monocytes % 16.7 H Eosinophils % 1.0 Basophils % 1.1 Sodium 147 H Potassium 3.7 Chloride 107 Carbon Dioxide 31 Anion Gap 9 BUN 34 H D Creatinine 3.4 H D Creat Clearance w eGFR 17.70 POC Glucometer [phone] Random Glucose 110 H D Calcium 7.8 L Total Bilirubin 1.0 AST 12 L ALT 12 Alkaline Phosphatase 67 Total Protein 5.2 L Albumin 1.7 L Blood Type Antibody Screen Crossmatch Active Medications Generic Name Dose Route Start Last Admin Trade Name Katlyn PRN Reason Stop Dose Admin Acetylcysteine 800 mg 06/26/16 18:00 07/02/16 06:50 Mucomyst 20 Oral / Inh Use Only* NEB 800 mg QIDR [facility] Administration Albuterol Sulfate 1 amp 06/26/16 18:00 07/02/16 06:51 Ventolin 0.083% Nebulizer Soln - NEB 1 amp QIDR [facility] Administration Bacitracin 1 applic 06/26/16 22:00 07/02/16 10:49 Bacitracin - TP 1 applic BID [facility] Administration Brimonidine Tartrate 1 drop 06/26/16 22:00 07/02/16 10:48 Alphagan 0.2% - OU 1 drop BID [facility] Administration Collagenase 1 applic 06/26/16 22:00 07/02/16 10:49 Santyl - TP 1 applic BID [facility] Administration Heparin Sodium (Porcine) 5,000 unit 06/30/16 14:00 07/02/16 06:05 Heparin - SQ 5,000 unit TID [facility] Administration Famotidine/Sodium Chloride 50 mls @ 100 mls/hr 06/28/16 10:45 07/02/16 10:50 Pepcid 20 Mg Premixed Ivpb - IVPB 100 mls/hr Q48H [facility] Administration Insulin Aspart 1 vial 06/26/16 16:30 07/02/16 06:05 Novolog Vial Sliding Scale - SQ Not Given ACHS [facility] Protocol Levothyroxine Sodium 25 mcg 06/27/16 07:00 07/02/16 06:05 Synthroid Injection - IVPUSH 25 mcg AM [facility] Administration Sevelamer Carbonate 0.8 gm 06/26/16 17:30 07/02/16 08:39 Renvela Powder Packet - PO 0.8 gm TIDCM [facility] Administration Silver Sulfadiazine 1 applic 06/26/16 22:00 07/02/16 10:50 Silvadene - TP 1 applic BID [facility] Administration ASSESSMENT/PLAN: shock improved afebrile, wbc decreased , patient could have septic shock with cardiogenic shock monitor vitals monitor intake/ output off dobutamin MAP > 65 sputum : mrsa +, completed a course of antibiotics. Id on case cardiology on case hyponatremia resolved abdiaziz on ckd HD as per nephrology avoid nephrotoxic drugs nephrology on case Acute respiratory failure with right side atelectasis keep right side up neb with mucomist and albuterol chest physiotherapy use bipap in night and hiflow in morning Hyperkalemia resolved on hd acute on chronic LV heart failure avoid Iv fluid daily weight. monitor IO LV systolic function severly reduced, LV global hypokinesia cardiology on case lactic acidosis improved hypothermia on hector hugger prn h/o cad, A flutter/ fibrillation , chf, global hypokinesia alaquis on hold due to anemia, cardiology on case last echo on 06/10 ef 28 and global hypokinesia anemia hb stable will give blood during hd h/o copd not active on albuterol DM on sliding scale follow bgm b/l lower leg ulcer venous ulcer vascular sugery on case santyl dressing dyllan bandage h/o hypothyroid on synthyroid fluid ; avoid IV fluid electrolyte ; repeat in am nutrition ; diet as per dietary recommendation dvt pro on sq heparin gi pro : on pepcid patient is full code. chest physiotherapy, physical therapy, dispo : admit in icu Visit type - Emergency Visit Emergency Visit: Yes ED Registration Date: 06/10/16 Care time: The patient presented to the Emergency Department on the above date and was hospitalized for further evaluation of their emergent condition. - New Patient This patient is new to me today: No - Critical Care Critical Care patient: Yes Total Critical Care Time (in minutes): 45 Critical Care Statement: The care of this patient involved high complexity decision making to prevent further life threatening deterioration of the patient 's condition and/or to evalute & treat vital organ system(s) failure or risk of failure.
--- NOTE | 2016-07-02 11:49 | CON.CARD ---
Consult Consult Specialty:: Cardiology Referred by:: Dr Lewis Reason for Consultation:: CHF - History of Present Illness Chief Complaint: chf History of Present Illness: 76 yo male with known CAD, prior UT (mild diffuse prox RCA disease, no intervention), paroxysmal atrial fib/flutter (on Eliquis at home), HFrEF ( severely reduced LV systolic function), HTN, DM, CKD, hyperlipidemia, who was recently hospitalized at [facility] from 05/23-06/02/16 for cellulitis/ abscess of left shoulder and lower extremities, and bacteremia. Now admitted with septic shock, acute on chronic renal failure getting HD, anemia and respiratory failure transiently requiring pressor and inotropic support, extubated with severe compressive atalectasis and evidence of fluid overload. Asked to re-evaluate last seen by Dr Mccray 06/20/16. Echo 06/10/16 severe decreased EF, lae santa, mild AI/MR mod tr mild phtn - History Source History Provided By: Medical Record - Past Medical History Cardio/Vascular: Yes: AFIB (atrial flutter), CHF (chronic systolic CHF), HTN Pulmonary: Yes: COPD Gastrointestinal: Yes: Diverticulosis, Peptic Ulcer Disease Renal/: Yes: Renal Inusuff Endocrine: Yes: Diabetes Mellitus Additional Medical History: glaucoma - Past Surgical History Past Surgical History: Yes: Colonoscopy, Upper Endoscopy - Alcohol/Substance Use Hx Alcohol Use: No - Smoking History Smoking history: Never smoked Have you smoked in the past 12 months: No - Social History Usual Living Arrangement: Long-Term Occupation: worked for the [employer] Home Medications - Allergies Allergies/Adverse Reactions: Allergies Allergy/AdvReac Type Severity Reaction Status Date / Time No Known Allergies Allergy Verified 05/23/16 23:31 - Home Medications Home Medications: Ambulatory Orders Acetaminophen [Tylenol .Regular Strength -] 650 mg PO Q6H PRN #0 tablet Albuterol 2.5/Ipratropium 0.5 [Duoneb -] 1 amp NEB Q6H PRN #0 amp 04/18/16 Apixaban [Eliquis -] 5 mg PO BID tablet 04/18/16 Ascorbic Acid [Vitamin C -] 500 mg PO DAILY tablet 04/18/16 Brimonidine Tartrate [Alphagan 0.2% -] 1 drop OU BID drops 04/18/16 Folic Acid - 1 mg PO DAILY tablet 04/18/16 Insulin Sliding Scale [Novolog Vial Sliding Scale -] 1 vial SQ ACHS units 04/18 Isosorbide Dinitrate [Isordil -] 20 mg PO BIDISORDIL tablet 04/18/16 Levothyroxine [Synthroid -] 50 mcg PO DAILY@0700 tablet 04/18/16 Metoprolol Succinate [Toprol XL -] 25 mg PO BID tab.sr.24h 04/18/16 Multivitamins [Multivit ([facility] Formulary)] 1 tab PO DAILY tab 04/18/16 Ranitidine [Zantac -] 150 mg PO BID tablet 04/18/16 Torsemide [Demadex -] 40 mg PO DAILY tablet 04/18/16 Zinc Sulfate [Orazinc -] 220 mg PO DAILY capsule 04/18/16 Amiodarone HCl [Cordarone -] 200 mg PO DAILY 05/23/16 Collagenase Clostridium Hist. [Santyl -] 1 applic TP DAILY tube 06/02/16 Diphenhydramine HCl [Benadryl Capsule -] 25 mg PO HS PRN #0 06/02/16 Ertapenem Sodium [Invanz -] 0.5 gm IVPB DAILY 7 Days 06/02/16 Insulin Sliding Scale [Novolog Vial Sliding Scale -] 1 vial SQ ACHS units 06/02 Tamsulosin HCl [Flomax -] 0.4 mg PO HS 06/02/16 Torsemide [Demadex -] 40 mg PO DAILY tablet 06/02/16 Family Disease History - Family Disease History Family History: Unable to Obtain Family Disease History: Diabetes: Father Review of Systems - Review of Systems Cardiovascular: reports: Shortness of Breath Respiratory: reports: Cough Vital Signs: Vital Signs Temperature 97.7 F 07/02/16 10:00 Pulse Rate 93 H 07/02/16 10:10 Respiratory Rate 24 07/02/16 10:00 Blood Pressure 86/63 07/02/16 10:00 O2 Sat by Pulse Oximetry (%) 100 07/02/16 10:10 Constitutional: Yes: Well Nourished, Mild Distress Eyes: Yes: WNL HENT: Yes: WNL Neck: Yes: Trachea Midline Respiratory: Yes: Poor Air Entry, Rales Gastrointestinal: Yes: WNL Cardiovascular: Yes: Tachycardia, Pulse Irregular JVD: Yes Carotid Bruit: No PMI: Displaced Heart Sounds: Yes: S1, S2 Edema: Yes Edema: LLE: 1+, RLE: 1+ - Other Data Labs, Other Data: CBC, BMP 07/02/16 05:15 07/02/16 05:15 INR, PTT INR 1.85 (0.82-1.09) H 06/11/16 05:15 Fibrinogen 405.0 mg/dL (238-498) 06/10/16 04:45 AFIB, IVCD Echo: Report Reviewed (severe dec EF mild ai/mr mod tr mild phtn) Imaging - Results Chest X-ray: Report Reviewed (enlarged heart left atalectasis, chf) EKG: Report Reviewed (afib ivcd) Assessment/Plan HD for fluid removal. No need for pressors, keep airways clear with chest PT and suctioning as tolerated. Agree with goals of care discussion. Not a candidate for LVAD/advanced cardiac therapy. continue respiratory support. BP not supporting the use of beta jono and/or NORMAN/ARB in this end stage CHF patient. Hold AC for afib given tenuous status and anemia. Please call us with questions.
--- NOTE | 2016-07-02 12:06 | PN ---
Teaching Attending Note Name of Resident: Patricio Andrade ATTENDING PHYSICIAN STATEMENT I saw and evaluated the patient. I reviewed the resident's note and discussed the case with the resident. I agree with the resident's findings and plan as documented. SUBJECTIVE: Pt seen and examined in the ICU. On oxygen tent, saturating well but remains confused. Dialyzed yesterday. OBJECTIVE: Last Vital Signs Temp Pulse Resp BP Pulse Ox 97.7 F 82 24 93/59 100 07/02/16 10:00 07/02/16 11:45 07/02/16 11:45 07/02/16 11:45 07/02/16 10:10 Intake & Output 06/29/16 06/30/16 07/01/16 07/02/16 23:59 23:59 23:59 23:59 Intake Total 175 100 170 120 Output Total 25 100 125 50 Balance 150 0 45 70 Weight 210 lb 213 lb 6.519 oz 208 lb 1.6 oz 201 lb 11.2 oz Gen: confused, tachypneic at rest Heart: RRR Lung: bilateral rhonchi Abd: soft, nontender Ext: + edema CBC, BMP 07/02/16 05:15 07/02/16 05:15 Active Medications Acetylcysteine (Mucomyst 20 Oral / Inh Use Only*) 800 mg NEB QIDR [facility] Last Admin: 07/02/16 06:50 Dose: 800 mg Albuterol Sulfate (Ventolin 0.083% Nebulizer Soln -) 1 amp NEB QIDR [facility] Last Admin: 07/02/16 06:51 Dose: 1 amp Bacitracin (Bacitracin -) 1 applic TP BID [facility] Last Admin: 07/02/16 10:49 Dose: 1 applic Brimonidine Tartrate (Alphagan 0.2% -) 1 drop OU BID [facility] Last Admin: 07/02/16 10:48 Dose: 1 drop Collagenase (Santyl -) 1 applic TP BID [facility] Last Admin: 07/02/16 10:49 Dose: 1 applic Heparin Sodium (Porcine) (Heparin -) 5,000 unit SQ TID [facility] Last Admin: 07/02/16 06:05 Dose: 5,000 unit Famotidine/Sodium Chloride (Pepcid 20 Mg Premixed Ivpb -) 50 mls @ 100 mls/hr IVPB Q48H [facility] Last Admin: 07/02/16 10:50 Dose: 100 mls/hr Insulin Aspart (Novolog Vial Sliding Scale -) 1 vial SQ ACHS [facility] PRN Reason: Protocol Last Admin: 07/02/16 06:05 Dose: Not Given Levothyroxine Sodium (Synthroid Injection -) 25 mcg IVPUSH AM [facility] Last Admin: 07/02/16 06:05 Dose: 25 mcg Sevelamer Carbonate (Renvela Powder Packet -) 0.8 gm PO TIDCM [facility] Last Admin: 07/02/16 08:39 Dose: 0.8 gm Silver Sulfadiazine (Silvadene -) 1 applic TP BID [facility] Last Admin: 07/02/16 10:50 Dose: 1 applic ASSESSMENT AND PLAN: s/p Acute Respiratory Failure Back/Shoulder Cellulitis/Abscess Septic vs Cardiogenic Shock Acute on Chronic Renal Failure Metabolic Acidosis Acute on Chronic LV Systolic Heart Failure Atrial Fibrillation COPD Atelectasis improving - HD per renal - s/p antibiotic course - O2 to keep SpO2 >90% - aspiration precautions - inhaled bronchodilators with mucolytics - PO as tolerated - DVT/GI prophylaxis - rehab/PT - continue ICU monitoring for tenuous respiratory status - continue discussions regarding goals of care - ?LTAC candidate critical care time spent reviewing chart, evaluating patient and formulating plan 35 min
--- NOTE | 2016-07-02 14:14 | PN ---
Progress Note, [employer] [employer] - Note Progress Note: Selected Entries 07/01/16 07/01/16 07/01/16 02:00 06:00 08:00 Breakfast Lunch Supper Temperature 97.9 F 99.1 F 98.9 F 07/01/16 07/01/16 07/01/16 09:06 10:00 10:53 Breakfast 75% Lunch Supper Temperature 99 F 99.0 F 07/01/16 07/01/16 07/01/16 15:48 15:49 17:00 Breakfast Lunch 50% Supper Temperature 98.2 F 98.4 F 07/01/16 07/01/16 07/01/16 19:00 21:00 23:14 Breakfast Lunch Supper 50% Temperature 98.4 F 98.3 F 07/02/16 07/02/16 07/02/16 02:00 06:00 09:46 Breakfast Lunch Supper 50% Temperature 98.3 F 98.2 F 07/02/16 10:00 Breakfast Lunch Supper Temperature 97.7 F Tolerating diet, per staff. Using Bipap b/n meals. Said to "mumble" which I have not witnessed. Encourage supplements of magic cup and ensure compact to uincrease caloric intake and density of nutritional contact.
[2016-07-02] MEDS: AMINO ACIDS/PROTEIN HYDROLYS 30 ML LIQUID.PKT PO SCH (17:21)
--- NOTE | 2016-07-02 17:21 | PN ---
Progress Note, Physician History of Present Illness: Pt seen and examined at bedside. He is more awake today. Pt remains oliguric. - Current Medication List Current Medications: Active Medications Acetylcysteine (Mucomyst 20 Oral / Inh Use Only*) 800 mg NEB QIDR [facility] Last Admin: 07/02/16 12:09 Dose: 800 mg Albuterol Sulfate (Ventolin 0.083% Nebulizer Soln -) 1 amp NEB QIDR [facility] Last Admin: 07/02/16 12:09 Dose: 1 amp Amino Acids (Prosource No Carb Liquid Pkt) 30 ml PO BID@0800,1730 [facility] Bacitracin (Bacitracin -) 1 applic TP BID [facility] Last Admin: 07/02/16 10:49 Dose: 1 applic Brimonidine Tartrate (Alphagan 0.2% -) 1 drop OU BID [facility] Last Admin: 07/02/16 10:48 Dose: 1 drop Collagenase (Santyl -) 1 applic TP BID [facility] Last Admin: 07/02/16 10:49 Dose: 1 applic Heparin Sodium (Porcine) (Heparin -) 5,000 unit SQ TID [facility] Last Admin: 07/02/16 06:05 Dose: 5,000 unit Famotidine/Sodium Chloride (Pepcid 20 Mg Premixed Ivpb -) 50 mls @ 100 mls/hr IVPB Q48H [facility] Last Admin: 07/02/16 10:50 Dose: 100 mls/hr Insulin Aspart (Novolog Vial Sliding Scale -) 1 vial SQ ACHS [facility] PRN Reason: Protocol Last Admin: 07/02/16 06:05 Dose: Not Given Levothyroxine Sodium (Synthroid Injection -) 25 mcg IVPUSH AM [facility] Last Admin: 07/02/16 06:05 Dose: 25 mcg Sevelamer Carbonate (Renvela Powder Packet -) 0.8 gm PO TIDCM [facility] Last Admin: 07/02/16 08:39 Dose: 0.8 gm Silver Sulfadiazine (Silvadene -) 1 applic TP BID [facility] Last Admin: 07/02/16 10:50 Dose: 1 applic - Objective Vital Signs: Vital Signs Temperature 98 F 07/02/16 14:00 Pulse Rate 102 H 07/02/16 16:00 Respiratory Rate 22 07/02/16 16:00 Blood Pressure 93/64 07/02/16 16:00 O2 Sat by Pulse Oximetry (%) 100 07/02/16 16:43 Constitutional: Yes: Calm HENT: Yes: Atraumatic Cardiovascular: Yes: S1, S2 Respiratory: Yes: On Nasal O2 Gastrointestinal: Yes: Soft Genitourinary: Yes: López Present, Oliguria Musculoskeletal: Yes: Muscle Weakness Edema: Yes Edema: LLE: 1+, RLE: 1+ Neurological: Yes: Oriented Labs: CBC, BMP 07/02/16 05:15 07/02/16 05:15 INR, PTT INR 1.85 (0.82-1.09) H 06/11/16 05:15 Fibrinogen 405.0 mg/dL (238-498) 06/10/16 04:45 Problem List - Problems (1) Acute hyperkalemia Code(s): E87.5 - HYPERKALEMIA (2) Hyponatremia Code(s): E87.1 - HYPO-OSMOLALITY AND HYPONATREMIA (3) Hypotension Code(s): I95.9 - HYPOTENSION, UNSPECIFIED Qualifiers: Qualified Code(s): I95.89 - Other hypotension (4) Acute on chronic renal failure Code(s): N17.9 - ACUTE KIDNEY FAILURE, UNSPECIFIED N18.9 - CHRONIC KIDNEY DISEASE, UNSPECIFIED (5) Anemia Code(s): D64.9 - ANEMIA, UNSPECIFIED Qualifiers: Qualified Code(s): N18.9 - Chronic kidney disease, unspecified; D63.1 - Anemia in chronic kidney disease (6) COPD (chronic obstructive pulmonary disease) Code(s): J44.9 - CHRONIC OBSTRUCTIVE PULMONARY DISEASE, UNSPECIFIED (7) Congestive heart failure (CHF) Code(s): I50.9 - HEART FAILURE, UNSPECIFIED Qualifiers: Qualified Code(s): I50.22 - Chronic systolic (congestive) heart failure (8) DMII (diabetes mellitus, type 2) Code(s): E11.9 - TYPE 2 DIABETES MELLITUS WITHOUT COMPLICATIONS (9) CKD (chronic kidney disease) Code(s): N18.9 - CHRONIC KIDNEY DISEASE, UNSPECIFIED Assessment/Plan Current Medications Generic Name Dose Route Start Last Admin Trade Name Freq PRN Reason Stop Dose Admin Acetylcysteine 800 mg 06/26/16 18:00 07/02/16 12:09 Mucomyst 20 Oral / Inh Use Only* NEB 800 mg QIDR [facility] Administration Albuterol Sulfate 1 amp 06/26/16 18:00 07/02/16 12:09 Ventolin 0.083% Nebulizer Soln - NEB 1 amp QIDR [facility] Administration Amino Acids 30 ml 07/02/16 17:30 Prosource No Carb Liquid Pkt PO BID@0800,1730 [facility] Bacitracin 1 applic 06/26/16 22:00 07/02/16 10:49 Bacitracin - TP 1 applic BID [facility] Administration Brimonidine Tartrate 1 drop 06/26/16 22:00 07/02/16 10:48 Alphagan 0.2% - OU 1 drop BID [facility] Administration Collagenase 1 applic 06/26/16 22:00 07/02/16 10:49 Santyl - TP 1 applic BID [facility] Administration Heparin Sodium (Porcine) 5,000 unit 06/30/16 14:00 07/02/16 06:05 Heparin - SQ 5,000 unit TID [facility] Administration Famotidine/Sodium Chloride 50 mls @ 100 mls/hr 06/28/16 10:45 07/02/16 10:50 Pepcid 20 Mg Premixed Ivpb - IVPB 100 mls/hr Q48H [facility] Administration Insulin Aspart 1 vial 06/26/16 16:30 07/02/16 06:05 Novolog Vial Sliding Scale - SQ Not Given ACHS [facility] Protocol Levothyroxine Sodium 25 mcg 06/27/16 07:00 07/02/16 06:05 Synthroid Injection - IVPUSH 25 mcg AM [facility] Administration Sevelamer Carbonate 0.8 gm 06/26/16 17:30 07/02/16 08:39 Renvela Powder Packet - PO 0.8 gm TIDCM [facility] Administration Silver Sulfadiazine 1 applic 06/26/16 22:00 07/02/16 10:50 Silvadene - TP 1 applic BID [facility] Administration Impression 1. CASE on CKD 2. sepsis with shock 3. cellulitis/abscess of back 4. CHF acute 5. hypothyroidism 6. hyperlipidemia 7. COPD 8. htn 9. a-fib 10. hyponatremia - isoosmolar 11. acute respiratory failure requiring intubation Plan - will arrange for HD tomorrow for fluid removal - pt remains oliguric - monitor blood pressure - discussed with ICU team - wound care to legs - cont Bipap as needed - will continue to follow Dr Martinez
[2016-07-03] MEDS: ALBUTEROL SO4 0.083% IH SOL 2.5 MG/3 ML VIAL.NEB. NEB SCH ×5 (00:35→23:15)
[2016-07-03] MEDS: ACETYLCYSTEINE 20% 200MG/ML 4 ML VIAL *FOR ORAL / INH USE ONLY NEB SCH ×5 (00:35→23:15)
[2016-07-03] MEDS ORDERED: PT OWN MED DRAWER 7, Y5N ONE ×2 (05:59→23:05)
[2016-07-03] MEDS: LEVOTHYROXINE SODIUM 100 MCG VIAL IVPUSH SCH (06:15)
[2016-07-03] MEDS: HEPARIN NA (PORCINE) 5,000 UNITS/ML 1ML VIAL SQ SCH ×2 (06:15→23:15)
[2016-07-03] MEDS: INSULIN SLIDING SCALE (NOVOLOG) 1 VIAL SQ SCH ×4 (06:16→22:22)
[2016-07-03 06:41] LABS: MCH 28.7 pg (25.7-33.7); MCHC 32.9 g/dl (32.0-35.9); MEAN CELL VOLUME 87.4 fl (80-96); MEAN PLT VOLUME 9.7 fl (7.5-11.1); PLATELET COUNT 95 K/MM3 (134-434); RDW 17.6 % (11.9-15.9); WHITE BLOOD COUNT 6.1 K/mm3 (4.0-10.0)
[2016-07-03 06:59] LABS: ALBUMIN 1.7 g/dl (3.4-5.0); CALCIUM 8.2 mg/dL (8.5-10.1); COCKROFT - GAULT 19.08; CREATININE 4.2 mg/dL (0.7-1.3); MAGNESIUM 1.8 mg/dL (1.8-2.4); TOT PROT 5.2 g/dl (6.4-8.2)
[2016-07-03 08:40] LABS: ANISOCYTOSIS 1+; FRAGMENTED CELL 2+; HYPOCHROMIA 2+; PLATELET ESTIMATE MOD DECREASED (NORMAL); POIKILOCYTOSIS 3+
[2016-07-03 08:41] LABS: BURR CELLS 2+; OVALOCYTES 1+; TEAR DROP CELLS 1+
[2016-07-03] MEDS ORDERED: EPOETIN ALFA 2,000 UNITS/1 ML VIAL IVPUSH ONE (09:00)
[2016-07-03] MEDS: AMINO ACIDS/PROTEIN HYDROLYS 30 ML LIQUID.PKT PO SCH ×2 (11:18→18:41)
[2016-07-03] MEDS: SEVELAMER CARBONATE 0.8 GM POWDER PACKET PO SCH ×3 (11:19→18:32)
[2016-07-03] MEDS: BACITRACIN 30 GM TUBE TOPICAL OINTMENT TP SCH ×2 (11:19→23:22)
[2016-07-03] MEDS: COLLAGENASE CLOSTRIDIUM HIST. 30 GRAMS TUBE TP SCH ×2 (11:19→23:22)
[2016-07-03] MEDS: SILVER SULFADIAZINE 1% TOP CREAM 50 GM JAR TP SCH ×2 (11:20→23:22)
[2016-07-03] MEDS: BRIMONIDINE TARTRATE 0.2% OPHTHALMIC 5 ML BOTTLE OU SCH ×2 (12:53→23:16)
--- NOTE | 2016-07-03 13:05 | PN ---
Progress Note, [employer] - Note Progress Note: PT awake, some verbalizations today. Says he is "on the street." Dysphonia. Occasional cough for me with magic cup and nectar thick on a tsp. Ate 100% of pureed food with overtly good tolerance. Case reviewed with RD concerning Sufficient PO vs need for supplemental GT. Calorie count in progress now. No iv. Monitor for sufficient hydration. Monitor PO tolerance, indication for MBS.
--- NOTE | 2016-07-03 13:45 | PN ---
Teaching Attending Note Name of Resident: Patricio Andrade ATTENDING PHYSICIAN STATEMENT I saw and evaluated the patient. I reviewed the resident's note and discussed the case with the resident. I agree with the resident's findings and plan as documented. SUBJECTIVE: Pt seen and examined in the ICU. Clinically unchanged, on and off BiPAP. Periods of waxing/waning mental status. No fevers recorded. OBJECTIVE: Last Vital Signs Temp Pulse Resp BP Pulse Ox 96.2 F L 102 H 20 94/64 100 07/03/16 10:00 07/03/16 10:55 07/03/16 10:55 07/03/16 10:55 07/03/16 11:05 Intake & Output 06/30/16 07/01/16 07/02/16 07/03/16 23:59 23:59 23:59 23:59 Intake Total 100 170 120 Output Total 100 125 125 25 Balance 0 45 -5 -25 Weight 213 lb 6.519 oz 208 lb 1.6 oz 201 lb 11.2 oz 198 lb 12.8 oz Gen: somnolent but arousable Heart: tachycardic, regular Lung: scattered rhonchi Abd: soft, nontender Ext: + edema CBC, BMP 07/03/16 05:45 07/03/16 05:45 Active Medications Acetylcysteine (Mucomyst 20 Oral / Inh Use Only*) 800 mg NEB QIDR [facility] Last Admin: 07/03/16 11:33 Dose: 800 mg Albuterol Sulfate (Ventolin 0.083% Nebulizer Soln -) 1 amp NEB QIDR [facility] Last Admin: 07/03/16 11:33 Dose: 1 amp Amino Acids (Prosource No Carb Liquid Pkt) 30 ml PO BID@0800,1730 [facility] Last Admin: 07/03/16 11:18 Dose: 30 ml Bacitracin (Bacitracin -) 1 applic TP BID [facility] Last Admin: 07/03/16 11:19 Dose: 1 applic Brimonidine Tartrate (Alphagan 0.2% -) 1 drop OU BID [facility] Last Admin: 07/03/16 12:53 Dose: 1 drop Collagenase (Santyl -) 1 applic TP BID [facility] Last Admin: 07/03/16 11:19 Dose: 1 applic Heparin Sodium (Porcine) (Heparin -) 5,000 unit SQ TID [facility] Last Admin: 07/03/16 06:15 Dose: 5,000 unit Famotidine/Sodium Chloride (Pepcid 20 Mg Premixed Ivpb -) 50 mls @ 100 mls/hr IVPB Q48H [facility] Last Admin: 07/02/16 10:50 Dose: 100 mls/hr Insulin Aspart (Novolog Vial Sliding Scale -) 1 vial SQ ACHS [facility] PRN Reason: Protocol Last Admin: 07/03/16 11:20 Dose: Not Given Levothyroxine Sodium (Synthroid Injection -) 25 mcg IVPUSH AM [facility] Last Admin: 07/03/16 06:15 Dose: 25 mcg Multivitamins/Minerals (Infuvite Adult -) 10 ml IV DAILY [facility] Sevelamer Carbonate (Renvela Powder Packet -) 0.8 gm PO TIDCM [facility] Last Admin: 07/03/16 12:53 Dose: 0.8 gm Silver Sulfadiazine (Silvadene -) 1 applic TP BID [facility] Last Admin: 07/03/16 11:20 Dose: 1 applic ASSESSMENT AND PLAN: s/p Acute Respiratory Failure Back/Shoulder Cellulitis/Abscess Septic vs Cardiogenic Shock resolving Acute on Chronic Renal Failure requiring HD Metabolic Acidosis Acute on Chronic LV Systolic Heart Failure Atrial Fibrillation COPD Atelectasis improving - HD per renal - s/p antibiotic course - O2 to keep SpO2 >90% - aspiration precautions - inhaled bronchodilators with mucolytics - PO as tolerated - DVT/GI prophylaxis - rehab/PT - continue discussions regarding goals of care - ?LTAC candidate, can monitor on telemetry critical care time spent reviewing chart, evaluating patient and formulating plan 35 min
--- NOTE | 2016-07-03 13:53 | PN ---
Addendum entered and electronically signed by Patricio Andrade RES 07/03/16 14:00 : right side atelectasis improving Original Note: Physical Exam: SUBJECTIVE: Patient seen and examined patient is awake and alert uses ventuary mask in day and BIPAP in night accepting dysphagia puree 50 to 75% off from pressors hector kang prn started on mutivitamin IV. keep head end elevated keep right side up regular chest physiotherapy try to get him out of bed got HD this morning. OBJECTIVE: Vital Signs Period Temp Pulse Resp BP Sys/Hubbard Pulse Ox Last 24 Hr 96.2 F-98 F 82-104 18-32 82-156/50-74 96-100 GENERAL: The patient is awake, alert, oriented HEAD: Normal with no signs of trauma. EYES: Pupils equal, round and reactive to light, NECK no lymphadenopathy LUNGS:, left side air entry present, right side air entry decreased , no wheez, no rales. HEART: s1s2 normal, ABDOMEN: Soft, nontender, not distended, normoactive bowel sounds, no guarding, no rebound, no masses. scrotal and penile swelling present UPPER EXTREMITIES: 2+ pulses, warm, well-perfused. No cyanosis. No clubbing. Cap refill <2 seconds. .pedal edema decreased LOWER EXTREMITIES: multiple ulcers resent on b/l lower limb, pitting edema decreased Laboratory Results - last 24 hr 07/02/16 07/02/16 07/03/16 16:24 20:46 05:45 WBC 6.1 RBC 2.96 L Hgb 8.5 L Hct 25.9 L MCV 87.4 MCHC 32.9 RDW 17.6 H Plt Count 95 L MPV 9.7 D Neutrophils % 78.0 Lymphocytes % 9.0 Monocytes % 12.0 H Eosinophils % 1.0 Differential Comment Manual diff done Platelet Estimate Mod decreased Hypochromic-Microcytic 2+ Poikilocytosis 3+ Anisocytosis 1+ Tear Drop Cells 1+ Ovalocytes 1+ [place] Cells 2+ Fragmented RBCs 2+ Morphology Comment Slide scanned Sodium Potassium Chloride Carbon Dioxide Anion Gap BUN Creatinine Creat Clearance w eGFR POC Glucometer 148.65540 127.08904 Random Glucose Calcium Phosphorus Magnesium Total Bilirubin AST ALT Alkaline Phosphatase Total Protein Albumin 07/03/16 07/03/16 07/03/16 05:45 05:55 10:33 WBC RBC Hgb Hct MCV MCHC RDW Plt Count MPV Neutrophils % Lymphocytes % Monocytes % Eosinophils % Differential Comment Platelet Estimate Hypochromic-Microcytic Poikilocytosis Anisocytosis Tear Drop Cells Ovalocytes [place] Cells Fragmented RBCs Morphology Comment Sodium 149 H Potassium 3.8 Chloride 108 H Carbon Dioxide 32 Anion Gap 9 BUN 42 H D Creatinine 4.2 H D Creat Clearance w eGFR 13.87 POC Glucometer 88.94590 105.17523 Random Glucose 78 D Calcium 8.2 L Phosphorus 3.0 Magnesium 1.8 Total Bilirubin 1.0 AST 10 L ALT 12 Alkaline Phosphatase 68 Total Protein 5.2 L Albumin 1.7 L Active Medications Generic Name Dose Route Start Last Admin Trade Name Freq PRN Reason Stop Dose Admin Acetylcysteine 800 mg 06/26/16 18:00 07/03/16 11:33 Mucomyst 20 Oral / Inh Use Only* NEB 800 mg QIDR [facility] Administration Albuterol Sulfate 1 amp 06/26/16 18:00 07/03/16 11:33 Ventolin 0.083% Nebulizer Soln - NEB 1 amp QIDR [facility] Administration Amino Acids 30 ml 07/02/16 17:30 07/03/16 11:18 Prosource No Carb Liquid Pkt PO 30 ml BID@0800,1730 [facility] Administration Bacitracin 1 applic 06/26/16 22:00 07/03/16 11:19 Bacitracin - TP 1 applic BID [facility] Administration Brimonidine Tartrate 1 drop 06/26/16 22:00 07/03/16 12:53 Alphagan 0.2% - OU 1 drop BID [facility] Administration Collagenase 1 applic 06/26/16 22:00 07/03/16 11:19 Santyl - TP 1 applic BID [facility] Administration Heparin Sodium (Porcine) 5,000 unit 06/30/16 14:00 07/03/16 06:15 Heparin - SQ 5,000 unit TID [facility] Administration Famotidine/Sodium Chloride 50 mls @ 100 mls/hr 06/28/16 10:45 07/02/16 10:50 Pepcid 20 Mg Premixed Ivpb - IVPB 100 mls/hr Q48H [facility] Administration Insulin Aspart 1 vial 06/26/16 16:30 07/03/16 11:20 Novolog Vial Sliding Scale - SQ Not Given ACHS [facility] Protocol Levothyroxine Sodium 25 mcg 06/27/16 07:00 07/03/16 06:15 Synthroid Injection - IVPUSH 25 mcg AM [facility] Administration Multivitamins/Minerals 10 ml 07/04/16 10:00 Infuvite Adult - IV DAILY [facility] Sevelamer Carbonate 0.8 gm 06/26/16 17:30 07/03/16 12:53 Renvela Powder Packet - PO 0.8 gm TIDCM [facility] Administration Silver Sulfadiazine 1 applic 06/26/16 22:00 07/03/16 11:20 Silvadene - TP 1 applic BID [facility] Administration ASSESSMENT/PLAN: shock could be from septic with cardiogenic shock improved afebrile, monitor vitals monitor intake/ output off dobutamin MAP > 65 sputum : mrsa +, completed a course of antibiotics. Id on case cardiology on case hyponatremia resolved abdiaziz on ckd HD as per nephrology avoid nephrotoxic drugs nephrology on case Acute respiratory failure with right side atelectasis keep right side up neb with mucomist and albuterol chest physiotherapy use bipap in night and ventuary/ oxygen tent in morning Hyperkalemia resolved on hd acute on chronic LV heart failure avoid Iv fluid daily weight. monitor IO LV systolic function severly reduced, LV global hypokinesia cardiology on case lactic acidosis improved hypothermia on hector hugger prn h/o cad, A flutter/ fibrillation , chf, global hypokinesia alaquis on hold due to anemia, cardiology on case last echo on 06/10 ef 28 and global hypokinesia anemia hb stable will give blood during hd h/o copd not active on albuterol DM on sliding scale follow bgm b/l lower leg ulcer venous ulcer vascular sugery on case santyl dressing dyllan bandage apply till knee h/o hypothyroid on synthyroid fluid ; avoid IV fluid electrolyte ; repeat in am nutrition ; diet as per dietary recommendation dvt pro on sq heparin gi pro : on pepcid patient is full code. chest physiotherapy, physical therapy, dispo : transfer to tele Visit type - Emergency Visit Emergency Visit: Yes ED Registration Date: 06/10/16 Care time: The patient presented to the Emergency Department on the above date and was hospitalized for further evaluation of their emergent condition. - New Patient This patient is new to me today: No - Critical Care Critical Care patient: Yes Total Critical Care Time (in minutes): 45 Critical Care Statement: The care of this patient involved high complexity decision making to prevent further life threatening deterioration of the patient 's condition and/or to evalute & treat vital organ system(s) failure or risk of failure.
--- NOTE | 2016-07-03 15:00 | PN ---
Progress Note, Physician History of Present Illness: Pt seen and examined at bedside. He is tolerating diet. - Current Medication List Current Medications: Active Medications Acetylcysteine (Mucomyst 20 Oral / Inh Use Only*) 800 mg NEB QIDR [facility] Last Admin: 07/03/16 11:33 Dose: 800 mg Albuterol Sulfate (Ventolin 0.083% Nebulizer Soln -) 1 amp NEB QIDR [facility] Last Admin: 07/03/16 11:33 Dose: 1 amp Amino Acids (Prosource No Carb Liquid Pkt) 30 ml PO BID@0800,1730 [facility] Last Admin: 07/03/16 11:18 Dose: 30 ml Bacitracin (Bacitracin -) 1 applic TP BID [facility] Last Admin: 07/03/16 11:19 Dose: 1 applic Brimonidine Tartrate (Alphagan 0.2% -) 1 drop OU BID [facility] Last Admin: 07/03/16 12:53 Dose: 1 drop Collagenase (Santyl -) 1 applic TP BID [facility] Last Admin: 07/03/16 11:19 Dose: 1 applic Heparin Sodium (Porcine) (Heparin -) 5,000 unit SQ TID [facility] Last Admin: 07/03/16 06:15 Dose: 5,000 unit Famotidine/Sodium Chloride (Pepcid 20 Mg Premixed Ivpb -) 50 mls @ 100 mls/hr IVPB Q48H [facility] Last Admin: 07/02/16 10:50 Dose: 100 mls/hr Insulin Aspart (Novolog Vial Sliding Scale -) 1 vial SQ ACHS [facility] PRN Reason: Protocol Last Admin: 07/03/16 11:20 Dose: Not Given Levothyroxine Sodium (Synthroid Injection -) 25 mcg IVPUSH AM [facility] Last Admin: 07/03/16 06:15 Dose: 25 mcg Multivitamins/Minerals (Infuvite Adult -) 10 ml IV DAILY [facility] Sevelamer Carbonate (Renvela Powder Packet -) 0.8 gm PO TIDCM [facility] Last Admin: 07/03/16 12:53 Dose: 0.8 gm Silver Sulfadiazine (Silvadene -) 1 applic TP BID [facility] Last Admin: 07/03/16 11:20 Dose: 1 applic - Objective Vital Signs: Vital Signs Temperature 97.2 F L 07/03/16 14:00 Pulse Rate 102 H 07/03/16 14:00 Respiratory Rate 28 H 07/03/16 14:00 Blood Pressure 98/68 07/03/16 14:00 O2 Sat by Pulse Oximetry (%) 100 07/03/16 13:43 Constitutional: Yes: Calm Eyes: Yes: Conjunctiva Clear Cardiovascular: Yes: S1, S2 Respiratory: Yes: On Venti-Mask Gastrointestinal: Yes: Soft Genitourinary: Yes: López Present, Oliguria Musculoskeletal: Yes: Muscle Weakness Edema: Yes Edema: LLE: 1+, RLE: 1+ Neurological: Yes: Oriented Psychiatric: Yes: Oriented Labs: CBC, BMP 07/03/16 05:45 07/03/16 05:45 INR, PTT INR 1.85 (0.82-1.09) H 06/11/16 05:15 Fibrinogen 405.0 mg/dL (238-498) 06/10/16 04:45 Problem List - Problems (1) Acute hyperkalemia Code(s): E87.5 - HYPERKALEMIA (2) Hyponatremia Code(s): E87.1 - HYPO-OSMOLALITY AND HYPONATREMIA (3) Hypotension Code(s): I95.9 - HYPOTENSION, UNSPECIFIED Qualifiers: Qualified Code(s): I95.89 - Other hypotension (4) Acute on chronic renal failure Code(s): N17.9 - ACUTE KIDNEY FAILURE, UNSPECIFIED N18.9 - CHRONIC KIDNEY DISEASE, UNSPECIFIED (5) Anemia Code(s): D64.9 - ANEMIA, UNSPECIFIED Qualifiers: Qualified Code(s): N18.9 - Chronic kidney disease, unspecified; D63.1 - Anemia in chronic kidney disease (6) COPD (chronic obstructive pulmonary disease) Code(s): J44.9 - CHRONIC OBSTRUCTIVE PULMONARY DISEASE, UNSPECIFIED (7) Congestive heart failure (CHF) Code(s): I50.9 - HEART FAILURE, UNSPECIFIED Qualifiers: Qualified Code(s): I50.22 - Chronic systolic (congestive) heart failure (8) DMII (diabetes mellitus, type 2) Code(s): E11.9 - TYPE 2 DIABETES MELLITUS WITHOUT COMPLICATIONS (9) CKD (chronic kidney disease) Code(s): N18.9 - CHRONIC KIDNEY DISEASE, UNSPECIFIED Assessment/Plan Current Medications Generic Name Dose Route Start Last Admin Trade Name Freq PRN Reason Stop Dose Admin Acetylcysteine 800 mg 06/26/16 18:00 07/03/16 11:33 Mucomyst 20 Oral / Inh Use Only* NEB 800 mg QIDR [facility] Administration Albuterol Sulfate 1 amp 06/26/16 18:00 07/03/16 11:33 Ventolin 0.083% Nebulizer Soln - NEB 1 amp QIDR [facility] Administration Amino Acids 30 ml 07/02/16 17:30 07/03/16 11:18 Prosource No Carb Liquid Pkt PO 30 ml BID@0800,1730 [facility] Administration Bacitracin 1 applic 06/26/16 22:00 07/03/16 11:19 Bacitracin - TP 1 applic BID [facility] Administration Brimonidine Tartrate 1 drop 06/26/16 22:00 07/03/16 12:53 Alphagan 0.2% - OU 1 drop BID [facility] Administration Collagenase 1 applic 06/26/16 22:00 07/03/16 11:19 Santyl - TP 1 applic BID [facility] Administration Heparin Sodium (Porcine) 5,000 unit 06/30/16 14:00 07/03/16 06:15 Heparin - SQ 5,000 unit TID [facility] Administration Famotidine/Sodium Chloride 50 mls @ 100 mls/hr 06/28/16 10:45 07/02/16 10:50 Pepcid 20 Mg Premixed Ivpb - IVPB 100 mls/hr Q48H [facility] Administration Insulin Aspart 1 vial 06/26/16 16:30 07/03/16 11:20 Novolog Vial Sliding Scale - SQ Not Given ACHS [facility] Protocol Levothyroxine Sodium 25 mcg 06/27/16 07:00 07/03/16 06:15 Synthroid Injection - IVPUSH 25 mcg AM [facility] Administration Multivitamins/Minerals 10 ml 07/04/16 10:00 Infuvite Adult - IV DAILY [facility] Sevelamer Carbonate 0.8 gm 06/26/16 17:30 07/03/16 12:53 Renvela Powder Packet - PO 0.8 gm TIDCM [facility] Administration Silver Sulfadiazine 1 applic 06/26/16 22:00 07/03/16 11:20 Silvadene - TP 1 applic BID [facility] Administration Impression 1. 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 sepsis with shock 3. cellulitis/abscess of back 4. CHF acute 5. hypothyroidism 6. hyperlipidemia 7. COPD 8. htn 9. a-fib 10. hyponatremia - isoosmolar 11. acute respiratory failure requiring intubation Plan - pt tolerated HD today - monitor urine output - he is more awake and oriented today - monitor blood pressure - discussed with ICU team - wound care to legs - cont Bipap as needed - will continue to follow Dr Martinez
[2016-07-03] MEDS ORDERED: SODIUM CHLORIDE 500 ML IV ONE (19:00)
--- NOTE | 2016-07-03 22:09 | PN ---
Progress Note, Physician Chief Complaint: PATIENT SEEN IN ICU IN A.M. MILD DISTRESS - Current Medication List Current Medications: Active Medications Acetylcysteine (Mucomyst 20 Oral / Inh Use Only*) 800 mg NEB QIDR [facility] Last Admin: 07/03/16 17:50 Dose: 800 mg Albuterol Sulfate (Ventolin 0.083% Nebulizer Soln -) 1 amp NEB QIDR [facility] Last Admin: 07/03/16 18:59 Dose: 1 amp Amino Acids (Prosource No Carb Liquid Pkt) 30 ml PO BID@0800,1730 [facility] Last Admin: 07/03/16 18:41 Dose: 30 ml Bacitracin (Bacitracin -) 1 applic TP BID [facility] Brimonidine Tartrate (Alphagan 0.2% -) 1 drop OU BID [facility] Collagenase (Santyl -) 1 applic TP BID [facility] Heparin Sodium (Porcine) (Heparin -) 5,000 unit SQ TID [facility] Famotidine/Sodium Chloride (Pepcid 20 Mg Premixed Ivpb -) 50 mls @ 100 mls/hr IVPB Q48H [facility] Insulin Aspart (Novolog Vial Sliding Scale -) 1 vial SQ ACHS [facility] PRN Reason: Protocol Last Admin: 07/03/16 18:41 Dose: Not Given Levothyroxine Sodium (Synthroid Injection -) 25 mcg IVPUSH AM [facility] Multivitamins/Minerals (Infuvite Adult -) 10 ml IV DAILY [facility] Sevelamer Carbonate (Renvela Powder Packet -) 0.8 gm PO TIDCM [facility] Last Admin: 07/03/16 18:32 Dose: Not Given Silver Sulfadiazine (Silvadene -) 1 applic TP BID [facility] - Objective Vital Signs: Vital Signs Temperature 98.4 F 07/03/16 18:00 Pulse Rate 105 H 07/03/16 18:00 Respiratory Rate 18 07/03/16 18:00 Blood Pressure 85/57 07/03/16 18:00 O2 Sat by Pulse Oximetry (%) 100 07/03/16 13:43 Constitutional: Yes: Mild Distress Eyes: Yes: WNL HENT: Yes: WNL Neck: Yes: WNL, Rigid Respiratory: Yes: WNL, On Nasal O2 Gastrointestinal: Yes: WNL Genitourinary: Yes: WNL Musculoskeletal: Yes: WNL Edema: Yes Edema: LLE: 2+, RLE: 2+ Peripheral Pulses WNL: Yes Integumentary: Yes: WNL Wound/Incision: Yes: Clean/Dry Neurological: Yes: WNL ...Motor Strength: LLE, RLE Psychiatric: Yes: WNL Labs: CBC, BMP 07/03/16 05:45 07/03/16 05:45 INR, PTT INR 1.85 (0.82-1.09) H 06/11/16 05:15 Fibrinogen 405.0 mg/dL (238-498) 06/10/16 04:45 Problem List - Problems (1) CKD (chronic kidney disease) Code(s): N18.9 - CHRONIC KIDNEY DISEASE, UNSPECIFIED (2) Hyponatremia Code(s): E87.1 - HYPO-OSMOLALITY AND HYPONATREMIA (3) Hypotension Code(s): I95.9 - HYPOTENSION, UNSPECIFIED Qualifiers: Qualified Code(s): I95.89 - Other hypotension (4) Lung consolidation Code(s): J18.1 - LOBAR PNEUMONIA, UNSPECIFIED ORGANISM (5) Anemia Code(s): D64.9 - ANEMIA, UNSPECIFIED Qualifiers: Qualified Code(s): N18.9 - Chronic kidney disease, unspecified; D63.1 - Anemia in chronic kidney disease (6) Atrial flutter Code(s): I48.92 - UNSPECIFIED ATRIAL FLUTTER (7) Bacteremia Code(s): R78.81 - BACTEREMIA (8) COPD (chronic obstructive pulmonary disease) Code(s): J44.9 - CHRONIC OBSTRUCTIVE PULMONARY DISEASE, UNSPECIFIED (9) DMII (diabetes mellitus, type 2) Code(s): E11.9 - TYPE 2 DIABETES MELLITUS WITHOUT COMPLICATIONS (10) Dyspnea Code(s): R06.00 - DYSPNEA, UNSPECIFIED Qualifiers: Qualified Code(s): R06.02 - Shortness of breath (11) Pressure ulcer of lower extremity, stage 1 Code(s): L89.891 - PRESSURE ULCER OF OTHER SITE, STAGE 1 (12) Sepsis Code(s): A41.9 - SEPSIS, UNSPECIFIED ORGANISM Qualifiers: Qualified Code(s): A41.9 - Sepsis, unspecified organism (13) Weakness of both lower limbs Code(s): M62.81 - MUSCLE WEAKNESS (GENERALIZED) (14) Wound of left shoulder Code(s): S41.002A - UNSPECIFIED OPEN WOUND OF LEFT SHOULDER, INITIAL ENCOUNTER Qualifiers: Qualified Code(s): S41.002D - Unspecified open wound of left shoulder, subsequent encounter (15) Acute respiratory distress Code(s): R06.00 - DYSPNEA, UNSPECIFIED Assessment/Plan CPAP CONTINUED VENTIMASK NEEDED KEEP 02 SAT >905 HD PER RENAL LUNG WORSE ON CXR TODAY PULM/CARDIO INPUT APPRECIATED ACUTE REHAB NEEDED PATIENT HAS A POOR QUALITY OF LIFE DISCUSSED WITH HIS BROTHER MARCIO CAN SEND TO REHAB FOR SHELTER TREATMENT WILL NEED HD, PULMONARY AND CARDIOLOGY MONITORING POOR PROGNOSIS
[2016-07-04] MEDS: HEPARIN NA (PORCINE) 5,000 UNITS/ML 1ML VIAL SQ SCH ×3 (06:06→22:44)
[2016-07-04] MEDS: INSULIN SLIDING SCALE (NOVOLOG) 1 VIAL SQ SCH ×4 (06:07→22:43)
[2016-07-04] MEDS: ALBUTEROL SO4 0.083% IH SOL 2.5 MG/3 ML VIAL.NEB. NEB SCH ×3 (06:32→18:09)
[2016-07-04] MEDS: ACETYLCYSTEINE 20% 200MG/ML 4 ML VIAL *FOR ORAL / INH USE ONLY NEB SCH ×3 (06:32→18:08)
[2016-07-04] MEDS ORDERED: LEVOTHYROXINE SODIUM 100 MCG VIAL IVPUSH SCH (07:00)
[2016-07-04 08:01] LABS: BASOPHIL 0.8 % (0-2.0); EOSINOPHIL 0.7 % (0-4.5); MCH 27.8 pg (25.7-33.7); MCHC 31.3 g/dl (32.0-35.9); MEAN CELL VOLUME 88.8 fl (80-96); MEAN PLT VOLUME 10.2 fl (7.5-11.1); NEUTROPHILS 73.9 % (42.8-82.8); PLATELET COUNT 111 K/MM3 (134-434); RDW 18.2 % (11.9-15.9); WHITE BLOOD COUNT 7.6 K/mm3 (4.0-10.0)
[2016-07-04 08:27] LABS: CALCIUM 8.5 mg/dL (8.5-10.1); COCKROFT - GAULT 21.66; CREATININE 3.7 mg/dL (0.7-1.3)
[2016-07-04] MEDS: FAMOTIDINE 20 MG/50 ML IVPB 50 ML IVPB SCH (09:44)
[2016-07-04] MEDS: AMINO ACIDS/PROTEIN HYDROLYS 30 ML LIQUID.PKT PO SCH ×2 (09:44→17:12)
[2016-07-04] MEDS: SEVELAMER CARBONATE 0.8 GM POWDER PACKET PO SCH ×3 (09:44→17:12)
[2016-07-04] MEDS: SILVER SULFADIAZINE 1% TOP CREAM 50 GM JAR TP SCH ×2 (09:45→22:42)
[2016-07-04] MEDS: COLLAGENASE CLOSTRIDIUM HIST. 30 GRAMS TUBE TP SCH ×2 (09:45→22:43)
[2016-07-04] MEDS: BACITRACIN 30 GM TUBE TOPICAL OINTMENT TP SCH ×2 (09:45→22:41)
[2016-07-04] MEDS ORDERED: MULTIVIT INJ. ADULT COMBO WITH VIT K 1 COMBO 10 ML VIAL IV SCH (10:00)
--- NOTE | 2016-07-04 11:46 | PN ---
Progress Note, SOD STRIPPER - Note Progress Note: Selected Entries 07/03/16 07/03/16 07/03/16 02:00 04:00 06:00 Breakfast Supper Temperature 97.5 F L 97.4 F L 97.2 F L 07/03/16 07/03/16 07/03/16 07:00 08:47 10:00 Breakfast Supper 50% Temperature 97 F L 96.2 F L 07/03/16 07/03/16 07/03/16 14:00 14:50 16:00 Breakfast 50% Supper Temperature 97.2 F L 97.6 F 07/03/16 07/03/16 07/04/16 18:00 20:00 01:31 Breakfast Supper Temperature 98.4 F 98.2 F 98 F 07/04/16 07/04/16 07/04/16 02:00 06:00 10:00 Breakfast Supper Temperature 97.9 F 98.5 F 98.1 F 07/04/16 11:00 Breakfast 100% Supper Temperature Laboratory Tests 07/04/16 06:22 WBC 7.6 Calorie count inprogress. Pt now on telemetry. Staff report good appetiote and Po tolerance,. Monitor for signs/symptoms of aspiration.
[2016-07-04] MEDS: BRIMONIDINE TARTRATE 0.2% OPHTHALMIC 5 ML BOTTLE OU SCH ×2 (12:31→22:40)
--- NOTE | 2016-07-04 14:40 | PN ---
Progress Note, Physician History of Present Illness: PULMONARY LETHARGIC,ON VENTI-MASK - Current Medication List Current Medications: Active Medications Acetylcysteine (Mucomyst 20 Oral / Inh Use Only*) 800 mg NEB QIDR [facility] Last Admin: 07/04/16 11:00 Dose: 800 mg Albuterol Sulfate (Ventolin 0.083% Nebulizer Soln -) 1 amp NEB QIDR [facility] Last Admin: 07/04/16 11:00 Dose: 1 amp Amino Acids (Prosource No Carb Liquid Pkt) 30 ml PO BID@0800,1730 [facility] Last Admin: 07/04/16 09:44 Dose: 30 ml Bacitracin (Bacitracin -) 1 applic TP BID [facility] Last Admin: 07/04/16 09:45 Dose: 1 applic Brimonidine Tartrate (Alphagan 0.2% -) 1 drop OU BID [facility] Last Admin: 07/04/16 12:31 Dose: 1 drop Collagenase (Santyl -) 1 applic TP BID [facility] Last Admin: 07/04/16 09:45 Dose: 1 applic Heparin Sodium (Porcine) (Heparin -) 5,000 unit SQ TID [facility] Last Admin: 07/04/16 14:01 Dose: 5,000 unit Famotidine/Sodium Chloride (Pepcid 20 Mg Premixed Ivpb -) 50 mls @ 100 mls/hr IVPB Q48H [facility] Last Admin: 07/04/16 09:44 Dose: 100 mls/hr Insulin Aspart (Novolog Vial Sliding Scale -) 1 vial SQ ACHS [facility] PRN Reason: Protocol Last Admin: 07/04/16 12:34 Dose: 2 units Levothyroxine Sodium (Synthroid Injection -) 25 mcg IVPUSH AM [facility] Last Admin: 07/04/16 09:46 Dose: 25 mcg Multivitamins/Minerals (Infuvite Adult -) 10 ml IV DAILY [facility] Sevelamer Carbonate (Renvela Powder Packet -) 0.8 gm PO TIDCM [facility] Last Admin: 07/04/16 12:02 Dose: 0.8 gm Silver Sulfadiazine (Silvadene -) 1 applic TP BID [facility] Last Admin: 07/04/16 09:45 Dose: 1 applic - Objective Vital Signs: Vital Signs Temperature 98.1 F 07/04/16 10:00 Pulse Rate 102 H 07/04/16 10:49 Respiratory Rate 20 07/04/16 10:00 Blood Pressure 88/41 07/04/16 10:00 O2 Sat by Pulse Oximetry (%) 97 07/04/16 10:49 Constitutional: Yes: Well Nourished, Other (LETHARGIC) Eyes: Yes: WNL HENT: Yes: WNL Neck: Yes: WNL Cardiovascular: Yes: Pulse Irregular, S1, S2 Respiratory: Yes: Rhonchi (ROBBY RHONCHI) Gastrointestinal: Yes: Normal Bowel Sounds, Soft Extremities: Yes: WNL Edema: Yes Labs: CBC, BMP 07/04/16 06:22 07/04/16 06:22 INR, PTT INR 1.85 (0.82-1.09) H 06/11/16 05:15 Fibrinogen 405.0 mg/dL (238-498) 06/10/16 04:45 - ....Imaging Chest X-ray: Report Reviewed, Image Reviewed (NO CHANGE R PLEURAL EFFUSION) Assessment/Plan ASSESSMENT AND PLAN: s/p Acute Respiratory Failure Back/Shoulder Cellulitis/Abscess Septic vs Cardiogenic Shock resolving Acute on Chronic Renal Failure requiring HD Metabolic Acidosis Acute on Chronic LV Systolic Heart Failure Atrial Fibrillation COPD Atelectasis improving - HD per renal - s/p antibiotic course - O2 to keep SpO2 >90% - aspiration precautions - inhaled bronchodilators with mucolytics - PO as tolerated - DVT/GI prophylaxis - rehab/PT - continue discussions regarding goals of care - ?LTAC candidate, can monitor on telemetry - BIPAP PRN DR GRACE
--- NOTE | 2016-07-04 16:28 | PN ---
Progress Note, Physician Chief Complaint: ASLEEP 02 MASK ON - Current Medication List Current Medications: Active Medications Acetylcysteine (Mucomyst 20 Oral / Inh Use Only*) 800 mg NEB QIDR [facility] Last Admin: 07/04/16 11:00 Dose: 800 mg Albuterol Sulfate (Ventolin 0.083% Nebulizer Soln -) 1 amp NEB QIDR [facility] Last Admin: 07/04/16 11:00 Dose: 1 amp Amino Acids (Prosource No Carb Liquid Pkt) 30 ml PO BID@0800,1730 [facility] Last Admin: 07/04/16 09:44 Dose: 30 ml Bacitracin (Bacitracin -) 1 applic TP BID [facility] Last Admin: 07/04/16 09:45 Dose: 1 applic Brimonidine Tartrate (Alphagan 0.2% -) 1 drop OU BID [facility] Last Admin: 07/04/16 12:31 Dose: 1 drop Collagenase (Santyl -) 1 applic TP BID [facility] Last Admin: 07/04/16 09:45 Dose: 1 applic Heparin Sodium (Porcine) (Heparin -) 5,000 unit SQ TID [facility] Last Admin: 07/04/16 14:01 Dose: 5,000 unit Famotidine/Sodium Chloride (Pepcid 20 Mg Premixed Ivpb -) 50 mls @ 100 mls/hr IVPB Q48H [facility] Last Admin: 07/04/16 09:44 Dose: 100 mls/hr Insulin Aspart (Novolog Vial Sliding Scale -) 1 vial SQ ACHS [facility] PRN Reason: Protocol Last Admin: 07/04/16 12:34 Dose: 2 units Levothyroxine Sodium (Synthroid -) 50 mcg PO DAILY@0700 [facility] Sevelamer Carbonate (Renvela Powder Packet -) 0.8 gm PO TIDCM [facility] Last Admin: 07/04/16 12:02 Dose: 0.8 gm Silver Sulfadiazine (Silvadene -) 1 applic TP BID [facility] Last Admin: 07/04/16 09:45 Dose: 1 applic - Objective Vital Signs: Vital Signs Temperature 100.5 F H 07/04/16 15:00 Pulse Rate 109 H 07/04/16 15:00 Respiratory Rate 20 07/04/16 15:00 Blood Pressure 97/58 07/04/16 15:00 O2 Sat by Pulse Oximetry (%) 97 07/04/16 10:49 Constitutional: Yes: Mild Distress Eyes: Yes: WNL HENT: Yes: WNL Neck: Yes: WNL Cardiovascular: Yes: Pulse Irregular Respiratory: Yes: On Venti-Mask, Poor Air Entry Gastrointestinal: Yes: WNL Genitourinary: Yes: Nance Present Musculoskeletal: Yes: Muscle Weakness Extremities: Yes: Other Edema: Yes Peripheral Pulses WNL: Yes Integumentary: Yes: Pressure Ulcer (STAGE 2 SACRAL/BACK ULCERS) Wound/Incision: Yes: Other Neurological: Yes: Pre-Existing Deficit, Weakness ...Motor Strength: LLE, RLE Psychiatric: Yes: Other Labs: CBC, BMP 07/04/16 06:22 07/04/16 06:22 INR, PTT INR 1.85 (0.82-1.09) H 06/11/16 05:15 Fibrinogen 405.0 mg/dL (238-498) 06/10/16 04:45 Problem List - Problems (1) CKD (chronic kidney disease) Code(s): N18.9 - CHRONIC KIDNEY DISEASE, UNSPECIFIED (2) Hyponatremia Code(s): E87.1 - HYPO-OSMOLALITY AND HYPONATREMIA (3) Hypotension Code(s): I95.9 - HYPOTENSION, UNSPECIFIED Qualifiers: Qualified Code(s): I95.89 - Other hypotension (4) Lung consolidation Code(s): J18.1 - LOBAR PNEUMONIA, UNSPECIFIED ORGANISM (5) Anemia Code(s): D64.9 - ANEMIA, UNSPECIFIED Qualifiers: Qualified Code(s): N18.9 - Chronic kidney disease, unspecified; D63.1 - Anemia in chronic kidney disease (6) Atrial flutter Code(s): I48.92 - UNSPECIFIED ATRIAL FLUTTER (7) Bacteremia Code(s): R78.81 - BACTEREMIA (8) COPD (chronic obstructive pulmonary disease) Code(s): J44.9 - CHRONIC OBSTRUCTIVE PULMONARY DISEASE, UNSPECIFIED (9) DMII (diabetes mellitus, type 2) Code(s): E11.9 - TYPE 2 DIABETES MELLITUS WITHOUT COMPLICATIONS (10) Dyspnea Code(s): R06.00 - DYSPNEA, UNSPECIFIED Qualifiers: Qualified Code(s): R06.02 - Shortness of breath (11) Pressure ulcer of lower extremity, stage 1 Code(s): L89.891 - PRESSURE ULCER OF OTHER SITE, STAGE 1 (12) Sepsis Code(s): A41.9 - SEPSIS, UNSPECIFIED ORGANISM Qualifiers: Qualified Code(s): A41.9 - Sepsis, unspecified organism (13) Weakness of both lower limbs Code(s): M62.81 - MUSCLE WEAKNESS (GENERALIZED) (14) Wound of left shoulder Code(s): S41.002A - UNSPECIFIED OPEN WOUND OF LEFT SHOULDER, INITIAL ENCOUNTER Qualifiers: Qualified Code(s): S41.002D - Unspecified open wound of left shoulder, subsequent encounter (15) Acute respiratory distress Code(s): R06.00 - DYSPNEA, UNSPECIFIED Assessment/Plan HD PER RENAL NANCE IRRIGATED MINMAL OUTPUT NEBS 02 SUPPORT CARDIAC STABLE SNF PT OOB TO CHAIR
--- NOTE | 2016-07-04 17:56 | PN ---
Progress Note, Physician History of Present Illness: Pt seen and examined at bedside.He is awake and appears comfortable. - Current Medication List Current Medications: Active Medications Acetylcysteine (Mucomyst 20 Oral / Inh Use Only*) 800 mg NEB QIDR [facility] Last Admin: 07/04/16 11:00 Dose: 800 mg Albuterol Sulfate (Ventolin 0.083% Nebulizer Soln -) 1 amp NEB QIDR [facility] Last Admin: 07/04/16 11:00 Dose: 1 amp Amino Acids (Prosource No Carb Liquid Pkt) 30 ml PO BID@0800,1730 [facility] Last Admin: 07/04/16 17:12 Dose: 30 ml Bacitracin (Bacitracin -) 1 applic TP BID [facility] Last Admin: 07/04/16 09:45 Dose: 1 applic Brimonidine Tartrate (Alphagan 0.2% -) 1 drop OU BID [facility] Last Admin: 07/04/16 12:31 Dose: 1 drop Collagenase (Santyl -) 1 applic TP BID [facility] Last Admin: 07/04/16 09:45 Dose: 1 applic Heparin Sodium (Porcine) (Heparin -) 5,000 unit SQ TID [facility] Last Admin: 07/04/16 14:01 Dose: 5,000 unit Famotidine/Sodium Chloride (Pepcid 20 Mg Premixed Ivpb -) 50 mls @ 100 mls/hr IVPB Q48H [facility] Last Admin: 07/04/16 09:44 Dose: 100 mls/hr Insulin Aspart (Novolog Vial Sliding Scale -) 1 vial SQ ACHS [facility] PRN Reason: Protocol Last Admin: 07/04/16 17:11 Dose: 2 units Levothyroxine Sodium (Synthroid -) 50 mcg PO DAILY@0700 [facility] Sevelamer Carbonate (Renvela Powder Packet -) 0.8 gm PO TIDCM [facility] Last Admin: 07/04/16 17:12 Dose: 0.8 gm Silver Sulfadiazine (Silvadene -) 1 applic TP BID [facility] Last Admin: 07/04/16 09:45 Dose: 1 applic - Objective Vital Signs: Vital Signs Temperature 100.5 F H 07/04/16 15:00 Pulse Rate 109 H 07/04/16 15:00 Respiratory Rate 20 07/04/16 15:00 Blood Pressure 97/58 07/04/16 15:00 O2 Sat by Pulse Oximetry (%) 97 04/21/17 10:49 Constitutional: Yes: Calm Eyes: Yes: Conjunctiva Clear HENT: Yes: Atraumatic Neck: Yes: Supple Cardiovascular: Yes: S1, S2 Respiratory: Yes: Diminished, On Nasal O2 Gastrointestinal: Yes: Soft Genitourinary: Yes: López Present, Oliguria Edema: Yes Edema: LLE: 1+, RLE: 1+ Neurological: Yes: Oriented Labs: CBC, BMP 07/04/16 06:22 07/04/16 06:22 INR, PTT INR 1.85 (0.82-1.09) H 06/11/16 05:15 Fibrinogen 405.0 mg/dL (238-498) 06/10/16 04:45 - ....Imaging Chest X-ray: Report Reviewed Problem List - Problems (1) Acute hyperkalemia Code(s): E87.5 - HYPERKALEMIA (2) Hyponatremia Code(s): E87.1 - HYPO-OSMOLALITY AND HYPONATREMIA (3) Hypotension Code(s): I95.9 - HYPOTENSION, UNSPECIFIED Qualifiers: Qualified Code(s): I95.89 - Other hypotension (4) Acute on chronic renal failure Code(s): N17.9 - ACUTE KIDNEY FAILURE, UNSPECIFIED N18.9 - CHRONIC KIDNEY DISEASE, UNSPECIFIED (5) Anemia Code(s): D64.9 - ANEMIA, UNSPECIFIED Qualifiers: Qualified Code(s): N18.9 - Chronic kidney disease, unspecified; D63.1 - Anemia in chronic kidney disease (6) COPD (chronic obstructive pulmonary disease) Code(s): J44.9 - CHRONIC OBSTRUCTIVE PULMONARY DISEASE, UNSPECIFIED (7) Congestive heart failure (CHF) Code(s): I50.9 - HEART FAILURE, UNSPECIFIED Qualifiers: Qualified Code(s): I50.22 - Chronic systolic (congestive) heart failure (8) DMII (diabetes mellitus, type 2) Code(s): E11.9 - TYPE 2 DIABETES MELLITUS WITHOUT COMPLICATIONS (9) CKD (chronic kidney disease) Code(s): N18.9 - CHRONIC KIDNEY DISEASE, UNSPECIFIED Assessment/Plan Current Medications Generic Name Dose Route Start Last Admin Trade Name Freq PRN Reason Stop Dose Admin Acetylcysteine 800 mg 07/03/16 18:00 07/04/16 11:00 Mucomyst 20 Oral / Inh Use Only* NEB 800 mg QIDR [facility] Administration Albuterol Sulfate 1 amp 07/03/16 18:00 07/04/16 11:00 Ventolin 0.083% Nebulizer Soln - NEB 1 amp QIDR [facility] Administration Amino Acids 30 ml 07/03/16 17:30 07/04/16 17:12 Prosource No Carb Liquid Pkt PO 30 ml BID@0800,1730 [facility] Administration Bacitracin 1 applic 07/03/16 22:00 07/04/16 09:45 Bacitracin - TP 1 applic BID [facility] Administration Brimonidine Tartrate 1 drop 07/03/16 22:00 07/04/16 12:31 Alphagan 0.2% - OU 1 drop BID [facility] Administration Collagenase 1 applic 07/03/16 22:00 07/04/16 09:45 Santyl - TP 1 applic BID [facility] Administration Heparin Sodium (Porcine) 5,000 unit 07/03/16 22:00 07/04/16 14:01 Heparin - SQ 5,000 unit TID [facility] Administration Famotidine/Sodium Chloride 50 mls @ 100 mls/hr 07/04/16 10:45 07/04/16 09:44 Pepcid 20 Mg Premixed Ivpb - IVPB 100 mls/hr Q48H [facility] Administration Insulin Aspart 1 vial 07/03/16 16:30 07/04/16 17:11 Novolog Vial Sliding Scale - SQ 2 units ACHS [facility] Administration Protocol Levothyroxine Sodium 50 mcg 07/05/16 07:00 Synthroid - PO DAILY@0700 [facility] Sevelamer Carbonate 0.8 gm 07/03/16 17:30 07/04/16 17:12 Renvela Powder Packet - PO 0.8 gm TIDCM [facility] Administration Silver Sulfadiazine 1 applic 07/03/16 22:00 07/04/16 09:45 Silvadene - TP 1 applic BID [facility] Administration Impression 1. 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 sepsis with shock 3. cellulitis/abscess of back 4. CHF acute 5. hypothyroidism 6. hyperlipidemia 7. COPD 8. htn 9. a-fib 10. hyponatremia - isoosmolar 11. acute respiratory failure requiring intubation Plan - will arrange for HD in am - mental status is improving - will need HD set up as outpt - monitor blood pressure - wound care to legs - cont Bipap as needed - will continue to follow Dr Martinez
[2016-07-05] MEDS: HEPARIN NA (PORCINE) 5,000 UNITS/ML 1ML VIAL SQ SCH ×3 (06:06→23:01)
[2016-07-05] MEDS: ACETYLCYSTEINE 20% 200MG/ML 4 ML VIAL *FOR ORAL / INH USE ONLY NEB SCH ×4 (06:08→18:03)
[2016-07-05] MEDS: INSULIN SLIDING SCALE (NOVOLOG) 1 VIAL SQ SCH ×4 (06:12→23:01)
[2016-07-05] MEDS: ALBUTEROL SO4 0.083% IH SOL 2.5 MG/3 ML VIAL.NEB. NEB SCH ×4 (06:21→18:03)
[2016-07-05] MEDS: LEVOTHYROXINE NA 50 MCG TABLET (FP) PO SCH (06:30)
[2016-07-05] MEDS: ALBUMIN HUMAN 25% 12.5 GM/50 ML VIAL IVPB SCH ×4 (07:10→11:14)
[2016-07-05] MEDS: SEVELAMER CARBONATE 0.8 GM POWDER PACKET PO SCH ×3 (08:14→16:44)
[2016-07-05] MEDS ORDERED: EPOETIN ALFA 2,000 UNIT, EPOETIN ALFA 3,000 UNIT IVPUSH ONE (09:00)
[2016-07-05] MEDS: AMINO ACIDS/PROTEIN HYDROLYS 30 ML LIQUID.PKT PO SCH ×2 (09:14→16:43)
--- NOTE | 2016-07-05 10:10 | PN ---
Progress Note, Physician - Current Medication List Current Medications: Active Medications Acetylcysteine (Mucomyst 20 Oral / Inh Use Only*) 800 mg NEB QIDR [facility] Last Admin: 07/05/16 06:08 Dose: 800 mg Albumin Human (Albumin Human 25%) 12.5 gm IVPB Q30M [facility] Stop: 07/05/16 10:16 Albuterol Sulfate (Ventolin 0.083% Nebulizer Soln -) 1 amp NEB QIDR [facility] Last Admin: 07/05/16 06:21 Dose: 1 amp Amino Acids (Prosource No Carb Liquid Pkt) 30 ml PO BID@0800,1730 [facility] Last Admin: 07/04/16 17:12 Dose: 30 ml Bacitracin (Bacitracin -) 1 applic TP BID [facility] Last Admin: 07/04/16 22:41 Dose: 1 applic Brimonidine Tartrate (Alphagan 0.2% -) 1 drop OU BID [facility] Last Admin: 07/04/16 22:40 Dose: 1 drop Collagenase (Santyl -) 1 applic TP BID [facility] Last Admin: 07/04/16 22:43 Dose: 1 applic Heparin Sodium (Porcine) (Heparin -) 5,000 unit SQ TID [facility] Last Admin: 07/05/16 06:06 Dose: 5,000 unit Famotidine/Sodium Chloride (Pepcid 20 Mg Premixed Ivpb -) 50 mls @ 100 mls/hr IVPB Q48H [facility] Last Admin: 07/04/16 09:44 Dose: 100 mls/hr Insulin Aspart (Novolog Vial Sliding Scale -) 1 vial SQ ACHS [facility] PRN Reason: Protocol Last Admin: 07/05/16 06:12 Dose: Not Given Levothyroxine Sodium (Synthroid -) 50 mcg PO DAILY@0700 [facility] Last Admin: 07/05/16 06:30 Dose: 50 mcg Sevelamer Carbonate (Renvela Powder Packet -) 0.8 gm PO TIDCM [facility] Last Admin: 07/04/16 17:12 Dose: 0.8 gm Silver Sulfadiazine (Silvadene -) 1 applic TP BID [facility] Last Admin: 07/04/16 22:42 Dose: 1 applic - Objective Vital Signs: Vital Signs Temperature 99.1 F 07/05/16 06:00 Pulse Rate 97 H 07/05/16 06:00 Respiratory Rate 20 07/05/16 06:00 Blood Pressure 91/52 07/05/16 06:00 O2 Sat by Pulse Oximetry (%) 97 07/04/16 21:00 Constitutional: Yes: Calm Neck: Yes: WNL Cardiovascular: Yes: WNL Respiratory: Yes: WNL Gastrointestinal: Yes: WNL Edema: No Labs: CBC, BMP 07/04/16 06:22 07/04/16 06:22 INR, PTT INR 1.85 (0.82-1.09) H 06/11/16 05:15 Fibrinogen 405.0 mg/dL (238-498) 06/10/16 04:45 Problem List - Problems (1) Anemia Code(s): D64.9 - ANEMIA, UNSPECIFIED Qualifiers: Qualified Code(s): N18.9 - Chronic kidney disease, unspecified; D63.1 - Anemia in chronic kidney disease Assessment/Plan (1) CKD (chronic kidney disease) Code(s): N18.9 - CHRONIC KIDNEY DISEASE, UNSPECIFIED (2) Hyponatremia Code(s): E87.1 - HYPO-OSMOLALITY AND HYPONATREMIA (3) Hypotension Code(s): I95.9 - HYPOTENSION, UNSPECIFIED Qualifiers: Qualified Code(s): I95.89 - Other hypotension (4) Lung consolidation Code(s): J18.1 - LOBAR PNEUMONIA, UNSPECIFIED ORGANISM (5) Anemia Code(s): D64.9 - ANEMIA, UNSPECIFIED Qualifiers: Qualified Code(s): N18.9 - Chronic kidney disease, unspecified; D63.1 - Anemia in chronic kidney disease (6) Atrial flutter Code(s): I48.92 - UNSPECIFIED ATRIAL FLUTTER (7) Bacteremia Code(s): R78.81 - BACTEREMIA (8) COPD (chronic obstructive pulmonary disease) Code(s): J44.9 - CHRONIC OBSTRUCTIVE PULMONARY DISEASE, UNSPECIFIED (9) DMII (diabetes mellitus, type 2) Code(s): E11.9 - TYPE 2 DIABETES MELLITUS WITHOUT COMPLICATIONS (10) Dyspnea Code(s): R06.00 - DYSPNEA, UNSPECIFIED Qualifiers: Qualified Code(s): R06.02 - Shortness of breath (11) Pressure ulcer of lower extremity, stage 1 Code(s): L89.891 - PRESSURE ULCER OF OTHER SITE, STAGE 1 (12) Sepsis Code(s): A41.9 - SEPSIS, UNSPECIFIED ORGANISM Qualifiers: Qualified Code(s): A41.9 - Sepsis, unspecified organism (13) Weakness of both lower limbs Code(s): M62.81 - MUSCLE WEAKNESS (GENERALIZED) (14) Wound of left shoulder Code(s): S41.002A - UNSPECIFIED OPEN WOUND OF LEFT SHOULDER, INITIAL ENCOUNTER Qualifiers: Qualified Code(s): S41.002D - Unspecified open wound of left shoulder, subsequent encounter (15) Acute respiratory distress Code(s): R06.00 - DYSPNEA, UNSPECIFIED Assessment/Plan HD PER RENAL NANCE IRRIGATED MINMAL OUTPUT NEBS 02 SUPPORT CARDIAC STABLE SNF PT OOB TO CHAIR SQUILGEER FM
[2016-07-05] MEDS: BRIMONIDINE TARTRATE 0.2% OPHTHALMIC 5 ML BOTTLE OU SCH ×2 (10:15→23:01)
[2016-07-05] MEDS ORDERED: INSULIN (NOVOLOG) ASPART 100 UNITS/ML 10ML VIAL ONE (11:12)
--- NOTE | 2016-07-05 11:19 | PN ---
Progress Note, Physician History of Present Illness: pulmonary more alert,less congested,s/p hd - Current Medication List Current Medications: Active Medications Acetylcysteine (Mucomyst 20 Oral / Inh Use Only*) 800 mg NEB QIDR [facility] Last Admin: 07/05/16 06:08 Dose: 800 mg Albuterol Sulfate (Ventolin 0.083% Nebulizer Soln -) 1 amp NEB QIDR [facility] Last Admin: 07/05/16 06:21 Dose: 1 amp Amino Acids (Prosource No Carb Liquid Pkt) 30 ml PO BID@0800,1730 [facility] Last Admin: 07/05/16 09:14 Dose: 30 ml Bacitracin (Bacitracin -) 1 applic TP BID [facility] Last Admin: 07/04/16 22:41 Dose: 1 applic Brimonidine Tartrate (Alphagan 0.2% -) 1 drop OU BID [facility] Last Admin: 07/05/16 10:15 Dose: 1 drop Collagenase (Santyl -) 1 applic TP BID [facility] Last Admin: 07/04/16 22:43 Dose: 1 applic Heparin Sodium (Porcine) (Heparin -) 5,000 unit SQ TID [facility] Last Admin: 07/05/16 06:06 Dose: 5,000 unit Famotidine/Sodium Chloride (Pepcid 20 Mg Premixed Ivpb -) 50 mls @ 100 mls/hr IVPB Q48H [facility] Last Admin: 07/04/16 09:44 Dose: 100 mls/hr Insulin Aspart (Novolog Vial Sliding Scale -) 1 vial SQ ACHS [facility] PRN Reason: Protocol Last Admin: 07/05/16 06:12 Dose: Not Given Levothyroxine Sodium (Synthroid -) 50 mcg PO DAILY@0700 [facility] Last Admin: 07/05/16 06:30 Dose: 50 mcg Sevelamer Carbonate (Renvela Powder Packet -) 0.8 gm PO TIDCM [facility] Last Admin: 07/05/16 08:14 Dose: 0.8 gm Silver Sulfadiazine (Silvadene -) 1 applic TP BID [facility] Last Admin: 07/04/16 22:42 Dose: 1 applic - Objective Vital Signs: Vital Signs Temperature 98.9 F 07/05/16 10:00 Pulse Rate 97 H 07/05/16 10:00 Respiratory Rate 20 07/05/16 10:00 Blood Pressure 95/56 07/05/16 10:00 O2 Sat by Pulse Oximetry (%) 97 07/04/16 21:00 Constitutional: Yes: Well Nourished, Calm Eyes: Yes: WNL HENT: Yes: WNL Neck: Yes: WNL Cardiovascular: Yes: Pulse Irregular, S1, S2 Respiratory: Yes: Rhonchi (few scattered eyal rhonchi) Gastrointestinal: Yes: Normal Bowel Sounds, Soft Extremities: Yes: WNL Edema: Yes Labs: CBC, BMP 07/04/16 06:22 07/04/16 06:22 INR, PTT INR 1.85 (0.82-1.09) H 06/11/16 05:15 Fibrinogen 405.0 mg/dL (238-498) 06/10/16 04:45 Assessment/Plan ASSESSMENT AND PLAN: s/p Acute Respiratory Failure Back/Shoulder Cellulitis/Abscess Septic vs Cardiogenic Shock resolving Acute on Chronic Renal Failure requiring HD Metabolic Acidosis Acute on Chronic LV Systolic Heart Failure Atrial Fibrillation COPD Atelectasis improving - HD per renal - s/p antibiotic course - O2 to keep SpO2 >90% - aspiration precautions - inhaled bronchodilators with mucolytics - PO as tolerated - DVT/GI prophylaxis - rehab/PT - continue discussions regarding goals of care - ?LTAC candidate, can monitor on telemetry - BIPAP PRN DR GRACE
[2016-07-05] MEDS: BACITRACIN 30 GM TUBE TOPICAL OINTMENT TP SCH ×2 (11:36→23:00)
[2016-07-05] MEDS: SILVER SULFADIAZINE 1% TOP CREAM 50 GM JAR TP SCH ×2 (13:36→23:00)
[2016-07-05] MEDS: COLLAGENASE CLOSTRIDIUM HIST. 30 GRAMS TUBE TP SCH ×2 (13:36→23:01)
--- NOTE | 2016-07-05 15:08 | PN ---
Progress Note, Physician History of Present Illness: Renal f/u Pt is poorly responsive He had HD earlier today but it was difficult to remove BP because of relatively low BP - Current Medication List Current Medications: Active Medications Acetylcysteine (Mucomyst 20 Oral / Inh Use Only*) 800 mg NEB QIDR [facility] Last Admin: 07/05/16 11:52 Dose: 800 mg Albuterol Sulfate (Ventolin 0.083% Nebulizer Soln -) 1 amp NEB QIDR [facility] Last Admin: 07/05/16 11:52 Dose: 1 amp Amino Acids (Prosource No Carb Liquid Pkt) 30 ml PO BID@0800,1730 [facility] Last Admin: 07/05/16 09:14 Dose: 30 ml Bacitracin (Bacitracin -) 1 applic TP BID [facility] Last Admin: 07/05/16 11:36 Dose: 1 applic Brimonidine Tartrate (Alphagan 0.2% -) 1 drop OU BID [facility] Last Admin: 07/05/16 10:15 Dose: 1 drop Collagenase (Santyl -) 1 applic TP BID [facility] Last Admin: 07/05/16 13:36 Dose: 1 applic Heparin Sodium (Porcine) (Heparin -) 5,000 unit SQ TID [facility] Last Admin: 07/05/16 13:35 Dose: 5,000 unit Famotidine/Sodium Chloride (Pepcid 20 Mg Premixed Ivpb -) 50 mls @ 100 mls/hr IVPB Q48H [facility] Last Admin: 07/04/16 09:44 Dose: 100 mls/hr Insulin Aspart (Novolog Vial Sliding Scale -) 1 vial SQ ACHS [facility] PRN Reason: Protocol Last Admin: 07/05/16 11:32 Dose: Not Given Levothyroxine Sodium (Synthroid -) 50 mcg PO DAILY@0700 [facility] Last Admin: 07/05/16 06:30 Dose: 50 mcg Sevelamer Carbonate (Renvela Powder Packet -) 0.8 gm PO TIDCM [facility] Last Admin: 07/05/16 12:32 Dose: 0.8 gm Silver Sulfadiazine (Silvadene -) 1 applic TP BID [facility] Last Admin: 07/05/16 13:36 Dose: 1 applic - Objective Vital Signs: Vital Signs Temperature 98.5 F 07/05/16 14:00 Pulse Rate 120 H 07/05/16 14:00 Respiratory Rate 18 07/05/16 14:00 Blood Pressure 99/62 07/05/16 14:00 O2 Sat by Pulse Oximetry (%) 97 07/04/16 21:00 Cardiovascular: Yes: S1, S2 Respiratory: Yes: Diminished Gastrointestinal: Yes: Soft. No: Tenderness, Rebound Edema: Yes (With dressing of both leg) Labs: CBC, BMP 07/04/16 06:22 07/04/16 06:22 INR, PTT INR 1.85 (0.82-1.09) H 06/11/16 05:15 Fibrinogen 405.0 mg/dL (238-498) 06/10/16 04:45 Assessment/Plan Impression 1. 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 sepsis with shock 3. cellulitis/abscess of back 4. CHF acute 5. hypothyroidism 6. hyperlipidemia 7. COPD 8. htn 9. a-fib Plan HD as tolerated and next due 07/08 Dr Camp
[2016-07-05] MEDS ORDERED: PT OWN MED DRAWER 7, Y5N ONE ×2 (16:43→22:58)
[2016-07-05] MEDS ORDERED: EPOETIN ALFA 2,000 UNITS/1 ML VIAL IVPUSH ONE (17:56)
[2016-07-06] MEDS: ALBUTEROL SO4 0.083% IH SOL 2.5 MG/3 ML VIAL.NEB. NEB SCH ×5 (00:08→23:07)
[2016-07-06] MEDS: ACETYLCYSTEINE 20% 200MG/ML 4 ML VIAL *FOR ORAL / INH USE ONLY NEB SCH ×5 (00:08→23:07)
[2016-07-06] MEDS: HEPARIN NA (PORCINE) 5,000 UNITS/ML 1ML VIAL SQ SCH ×3 (06:14→22:56)
[2016-07-06] MEDS: LEVOTHYROXINE NA 50 MCG TABLET (FP) PO SCH (06:14)
[2016-07-06] MEDS: INSULIN SLIDING SCALE (NOVOLOG) 1 VIAL SQ SCH ×4 (06:14→22:58)
[2016-07-06 08:06] LABS: BASOPHIL 0.7 % (0-2.0); MCH 28.3 pg (25.7-33.7); MCHC 31.6 g/dl (32.0-35.9); MEAN CELL VOLUME 89.6 fl (80-96); MEAN PLT VOLUME 9.6 fl (7.5-11.1); NEUTROPHILS 78.7 % (42.8-82.8); PLATELET COUNT 96 K/MM3 (134-434); RDW 18.7 % (11.9-15.9); WHITE BLOOD COUNT 8.9 K/mm3 (4.0-10.0)
[2016-07-06] MEDS ORDERED: PT OWN MED DRAWER 7, Y5N ONE ×2 (08:39→17:11)
[2016-07-06 08:42] LABS: BILIRUBIN,TOTAL 1.2 mg/dL (0.2-1.0); CALCIUM 8.2 mg/dL (8.5-10.1); COCKROFT - GAULT 21.74; CREATININE 4.1 mg/dL (0.7-1.3); TOT PROT 5.6 g/dl (6.4-8.2)
[2016-07-06] MEDS: AMINO ACIDS/PROTEIN HYDROLYS 30 ML LIQUID.PKT PO SCH ×2 (09:50→17:21)
[2016-07-06] MEDS: SEVELAMER CARBONATE 0.8 GM POWDER PACKET PO SCH ×3 (09:50→17:21)
[2016-07-06] MEDS: BRIMONIDINE TARTRATE 0.2% OPHTHALMIC 5 ML BOTTLE OU SCH ×2 (09:56→22:58)
[2016-07-06] MEDS: BACITRACIN 30 GM TUBE TOPICAL OINTMENT TP SCH ×2 (09:56→22:58)
[2016-07-06] MEDS: COLLAGENASE CLOSTRIDIUM HIST. 30 GRAMS TUBE TP SCH ×2 (09:57→22:57)
[2016-07-06] MEDS: SILVER SULFADIAZINE 1% TOP CREAM 50 GM JAR TP SCH ×2 (09:57→22:57)
[2016-07-06] MEDS: FAMOTIDINE 20 MG/50 ML IVPB 50 ML IVPB SCH (10:01)
--- NOTE | 2016-07-06 11:33 | PN ---
Progress Note, Physician History of Present Illness: pulmonary lethargic,on VM,mild congestion - Current Medication List Current Medications: Active Medications Acetylcysteine (Mucomyst 20 Oral / Inh Use Only*) 800 mg NEB QIDR [facility] Last Admin: 07/06/16 06:08 Dose: 800 mg Albuterol Sulfate (Ventolin 0.083% Nebulizer Soln -) 1 amp NEB QIDR [facility] Last Admin: 07/06/16 06:08 Dose: 1 amp Amino Acids (Prosource No Carb Liquid Pkt) 30 ml PO BID@0800,1730 [facility] Last Admin: 07/06/16 09:50 Dose: 30 ml Bacitracin (Bacitracin -) 1 applic TP BID [facility] Last Admin: 07/06/16 09:56 Dose: 1 applic Brimonidine Tartrate (Alphagan 0.2% -) 1 drop OU BID [facility] Last Admin: 07/06/16 09:56 Dose: 1 drop Collagenase (Santyl -) 1 applic TP BID [facility] Last Admin: 07/06/16 09:57 Dose: 1 applic Heparin Sodium (Porcine) (Heparin -) 5,000 unit SQ TID [facility] Last Admin: 07/06/16 06:14 Dose: 5,000 unit Famotidine/Sodium Chloride (Pepcid 20 Mg Premixed Ivpb -) 50 mls @ 100 mls/hr IVPB Q48H [facility] Last Admin: 07/06/16 10:01 Dose: 100 mls/hr Insulin Aspart (Novolog Vial Sliding Scale -) 1 vial SQ ACHS [facility] PRN Reason: Protocol Last Admin: 07/06/16 06:14 Dose: Not Given Levothyroxine Sodium (Synthroid -) 50 mcg PO DAILY@0700 [facility] Last Admin: 07/06/16 06:14 Dose: 50 mcg Sevelamer Carbonate (Renvela Powder Packet -) 0.8 gm PO TIDCM [facility] Last Admin: 07/06/16 09:50 Dose: 0.8 gm Silver Sulfadiazine (Silvadene -) 1 applic TP BID [facility] Last Admin: 07/06/16 09:57 Dose: 1 applic - Objective Vital Signs: Vital Signs Temperature 97.8 F 07/06/16 10:00 Pulse Rate 80 07/06/16 10:56 Respiratory Rate 22 07/06/16 10:00 Blood Pressure 98/56 07/06/16 10:00 O2 Sat by Pulse Oximetry (%) 93 L 07/06/16 10:56 Constitutional: Yes: Well Nourished, Other (LETHARGIC) Eyes: Yes: WNL HENT: Yes: WNL Neck: Yes: WNL Cardiovascular: Yes: Pulse Irregular, S1, S2 Respiratory: Yes: Rhonchi (SCATTERER ROBBY RHONCHI), Other (POOR INSPIRATOR EFFORT ) Extremities: Yes: WNL Edema: Yes Labs: CBC, BMP 07/06/16 06:10 07/06/16 06:10 INR, PTT INR 1.85 (0.82-1.09) H 06/11/16 05:15 Fibrinogen 405.0 mg/dL (238-498) 06/10/16 04:45 Assessment/Plan ASSESSMENT AND PLAN: s/p Acute Respiratory Failure Back/Shoulder Cellulitis/Abscess Septic vs Cardiogenic Shock resolving Acute on Chronic Renal Failure requiring HD Metabolic Acidosis Acute on Chronic LV Systolic Heart Failure Atrial Fibrillation COPD Atelectasis improving - HD per renal - s/p antibiotic course - O2 to keep SpO2 >90% - aspiration precautions - inhaled bronchodilators with mucolytics - PO as tolerated - DVT/GI prophylaxis - rehab/PT - continue discussions regarding goals of care - ?LTAC candidate, can monitor on telemetry - BIPAP PRN DR GRACE
[2016-07-06 12:14] LABS: ARTERIAL BLD GAS O2 SATURATION 99.9 % (90-98.9); ARTERIAL BLOOD GAS BASE EXCESS 5.1 meq/l (-2-2); ARTERIAL BLOOD GAS HCO3 28.7 meq/L (22-26); ARTERIAL BLOOD GAS pH 7.48 (7.35-7.45)
[2016-07-06 12:15] LABS: ALLENS TEST POSITIVE
[2016-07-06 12:16] LABS: ART PUNCT SITE RIGHT RADIAL; LPM/O2% 50%; PT. ON O2? YES; TYPE OF O2 VENTI-MASK
--- NOTE | 2016-07-06 12:40 | PN ---
Progress Note, Physician History of Present Illness: Renal f/u Pt is lethargic but easily arousable and was able to eat his breakfast - Current Medication List Current Medications: Active Medications Acetylcysteine (Mucomyst 20 Oral / Inh Use Only*) 800 mg NEB QIDR [facility] Last Admin: 07/06/16 06:08 Dose: 800 mg Albuterol Sulfate (Ventolin 0.083% Nebulizer Soln -) 1 amp NEB QIDR [facility] Last Admin: 07/06/16 06:08 Dose: 1 amp Amino Acids (Prosource No Carb Liquid Pkt) 30 ml PO BID@0800,1730 [facility] Last Admin: 07/06/16 09:50 Dose: 30 ml Bacitracin (Bacitracin -) 1 applic TP BID [facility] Last Admin: 07/06/16 09:56 Dose: 1 applic Brimonidine Tartrate (Alphagan 0.2% -) 1 drop OU BID [facility] Last Admin: 07/06/16 09:56 Dose: 1 drop Collagenase (Santyl -) 1 applic TP BID [facility] Last Admin: 07/06/16 09:57 Dose: 1 applic Heparin Sodium (Porcine) (Heparin -) 5,000 unit SQ TID [facility] Last Admin: 07/06/16 06:14 Dose: 5,000 unit Famotidine/Sodium Chloride (Pepcid 20 Mg Premixed Ivpb -) 50 mls @ 100 mls/hr IVPB Q48H [facility] Last Admin: 07/06/16 10:01 Dose: 100 mls/hr Insulin Aspart (Novolog Vial Sliding Scale -) 1 vial SQ ACHS [facility] PRN Reason: Protocol Last Admin: 07/06/16 06:14 Dose: Not Given Levothyroxine Sodium (Synthroid -) 50 mcg PO DAILY@0700 [facility] Last Admin: 07/06/16 06:14 Dose: 50 mcg Sevelamer Carbonate (Renvela Powder Packet -) 0.8 gm PO TIDCM [facility] Last Admin: 07/06/16 09:50 Dose: 0.8 gm Silver Sulfadiazine (Silvadene -) 1 applic TP BID [facility] Last Admin: 07/06/16 09:57 Dose: 1 applic - Objective Vital Signs: Vital Signs Temperature 97.8 F 07/06/16 10:00 Pulse Rate 80 07/06/16 10:56 Respiratory Rate 22 07/06/16 10:00 Blood Pressure 98/56 07/06/16 10:00 O2 Sat by Pulse Oximetry (%) 93 L 07/06/16 10:56 Constitutional: Yes: No Distress Cardiovascular: Yes: S1, S2 Respiratory: Yes: Other (Decreased BS at bases) Extremities: Yes: Other (Dressings on both lower legs) Edema: Yes Labs: CBC, BMP 07/06/16 06:10 07/06/16 06:10 INR, PTT INR 1.85 (0.82-1.09) H 06/11/16 05:15 Fibrinogen 405.0 mg/dL (238-498) 06/10/16 04:45 Assessment/Plan Impression 1. CASE on CKD on HD 2. Sepsis with shock 3. Cellulitis/abscess of back 4. CHF improved 5. Hypothyroidism 6. Hyperlipidemia 7. COPD 8. HTN in past but now with relatively low BP 9. A-fib 10. Anemia 11. Hyperglycemia on Insulin coverage Plan For fluid removal as tolerated with HD Next HD 07/08 Anticoagulation as per PMD and Cardiology Dr Camp
--- NOTE | 2016-07-06 14:18 | PN ---
Progress Note, Physician Chief Complaint: HAD LONG D/W HEALTH CARE PROXY & FAMILY ARE OK WITH LTAC BUT FEEL [place] IS [place] -> WOULD PERHAPS BE OK WITH LTAC CLOSER TO FAMILY FAMILY DOES NOT WANT [facility] - Current Medication List Current Medications: Active Medications Acetylcysteine (Mucomyst 20 Oral / Inh Use Only*) 800 mg NEB QIDR [facility] Last Admin: 07/06/16 06:08 Dose: 800 mg Albuterol Sulfate (Ventolin 0.083% Nebulizer Soln -) 1 amp NEB QIDR [facility] Last Admin: 07/06/16 06:08 Dose: 1 amp Amino Acids (Prosource No Carb Liquid Pkt) 30 ml PO BID@0800,1730 [facility] Last Admin: 07/06/16 09:50 Dose: 30 ml Bacitracin (Bacitracin -) 1 applic TP BID [facility] Last Admin: 07/06/16 09:56 Dose: 1 applic Brimonidine Tartrate (Alphagan 0.2% -) 1 drop OU BID [facility] Last Admin: 07/06/16 09:56 Dose: 1 drop Collagenase (Santyl -) 1 applic TP BID [facility] Last Admin: 07/06/16 09:57 Dose: 1 applic Heparin Sodium (Porcine) (Heparin -) 5,000 unit SQ TID [facility] Last Admin: 07/06/16 06:14 Dose: 5,000 unit Famotidine/Sodium Chloride (Pepcid 20 Mg Premixed Ivpb -) 50 mls @ 100 mls/hr IVPB Q48H [facility] Last Admin: 07/06/16 10:01 Dose: 100 mls/hr Insulin Aspart (Novolog Vial Sliding Scale -) 1 vial SQ ACHS [facility] PRN Reason: Protocol Last Admin: 07/06/16 06:14 Dose: Not Given Levothyroxine Sodium (Synthroid -) 50 mcg PO DAILY@0700 [facility] Last Admin: 07/06/16 06:14 Dose: 50 mcg Sevelamer Carbonate (Renvela Powder Packet -) 0.8 gm PO TIDCM [facility] Last Admin: 07/06/16 09:50 Dose: 0.8 gm Silver Sulfadiazine (Silvadene -) 1 applic TP BID [facility] Last Admin: 07/06/16 09:57 Dose: 1 applic - Objective Vital Signs: Vital Signs Temperature 97.8 F 07/06/16 10:00 Pulse Rate 80 07/06/16 10:56 Respiratory Rate 22 07/06/16 10:00 Blood Pressure 98/56 07/06/16 10:00 O2 Sat by Pulse Oximetry (%) 93 L 07/06/16 10:56 Constitutional: Yes: Calm Cardiovascular: Yes: WNL Respiratory: Yes: Rhonchi Gastrointestinal: Yes: WNL Edema: No Labs: CBC, BMP 07/06/16 06:10 07/06/16 06:10 INR, PTT INR 1.85 (0.82-1.09) H 06/11/16 05:15 Fibrinogen 405.0 mg/dL (238-498) 06/10/16 04:45 Problem List - Problems (1) Anemia Code(s): D64.9 - ANEMIA, UNSPECIFIED Qualifiers: Qualified Code(s): N18.9 - Chronic kidney disease, unspecified; D63.1 - Anemia in chronic kidney disease Assessment/Plan (1) CKD (chronic kidney disease) Code(s): N18.9 - CHRONIC KIDNEY DISEASE, UNSPECIFIED (2) Hyponatremia Code(s): E87.1 - HYPO-OSMOLALITY AND HYPONATREMIA (3) Hypotension Code(s): I95.9 - HYPOTENSION, UNSPECIFIED Qualifiers: Qualified Code(s): I95.89 - Other hypotension (4) Lung consolidation Code(s): J18.1 - LOBAR PNEUMONIA, UNSPECIFIED ORGANISM (5) Anemia Code(s): D64.9 - ANEMIA, UNSPECIFIED Qualifiers: Qualified Code(s): N18.9 - Chronic kidney disease, unspecified; D63.1 - Anemia in chronic kidney disease (6) Atrial flutter Code(s): I48.92 - UNSPECIFIED ATRIAL FLUTTER (7) Bacteremia Code(s): R78.81 - BACTEREMIA (8) COPD (chronic obstructive pulmonary disease) Code(s): J44.9 - CHRONIC OBSTRUCTIVE PULMONARY DISEASE, UNSPECIFIED (9) DMII (diabetes mellitus, type 2) Code(s): E11.9 - TYPE 2 DIABETES MELLITUS WITHOUT COMPLICATIONS (10) Dyspnea Code(s): R06.00 - DYSPNEA, UNSPECIFIED Qualifiers: Qualified Code(s): R06.02 - Shortness of breath (11) Pressure ulcer of lower extremity, stage 1 Code(s): L89.891 - PRESSURE ULCER OF OTHER SITE, STAGE 1 (12) Sepsis Code(s): A41.9 - SEPSIS, UNSPECIFIED ORGANISM Qualifiers: Qualified Code(s): A41.9 - Sepsis, unspecified organism (13) Weakness of both lower limbs Code(s): M62.81 - MUSCLE WEAKNESS (GENERALIZED) (14) Wound of left shoulder Code(s): S41.002A - UNSPECIFIED OPEN WOUND OF LEFT SHOULDER, INITIAL ENCOUNTER Qualifiers: Qualified Code(s): S41.002D - Unspecified open wound of left shoulder, subsequent encounter (15) Acute respiratory distress Code(s): R06.00 - DYSPNEA, UNSPECIFIED Assessment/Plan HD PER RENAL -> NEXT 07/08 [facility] 02 SUPPORT CARDIAC STABLE SNF PT OOB TO CHAIR [employer] [facility]
[2016-07-06] MEDS ORDERED: METOPROLOL TARTRATE 5 MG/5 ML VIAL IVPUSH ONE (22:02)
[2016-07-07] MEDS: INSULIN SLIDING SCALE (NOVOLOG) 1 VIAL SQ SCH ×4 (06:27→23:54)
[2016-07-07] MEDS: LEVOTHYROXINE NA 50 MCG TABLET (FP) PO SCH (06:27)
[2016-07-07] MEDS: HEPARIN NA (PORCINE) 5,000 UNITS/ML 1ML VIAL SQ SCH ×3 (06:27→23:54)
[2016-07-07] MEDS: ALBUTEROL SO4 0.083% IH SOL 2.5 MG/3 ML VIAL.NEB. NEB SCH ×2 (06:35→18:00)
[2016-07-07] MEDS: ACETYLCYSTEINE 20% 200MG/ML 4 ML VIAL *FOR ORAL / INH USE ONLY NEB SCH ×2 (06:35→18:00)
[2016-07-07 07:43] LABS: BASOPHIL 0.3 % (0-2.0); EOSINOPHIL 0.5 % (0-4.5); MCH 28.4 pg (25.7-33.7); MCHC 31.1 g/dl (32.0-35.9); MEAN CELL VOLUME 91.3 fl (80-96); MEAN PLT VOLUME 10.5 fl (7.5-11.1); PLATELET COUNT 125 K/MM3 (134-434); RDW 18.8 % (11.9-15.9); WHITE BLOOD COUNT 8.3 K/mm3 (4.0-10.0)
[2016-07-07] MEDS: SEVELAMER CARBONATE 0.8 GM POWDER PACKET PO SCH ×3 (08:00→18:02)
[2016-07-07] MEDS: AMINO ACIDS/PROTEIN HYDROLYS 30 ML LIQUID.PKT PO SCH ×2 (08:00→18:02)
[2016-07-07 08:05] LABS: CALCIUM 8.6 mg/dL (8.5-10.1); COCKROFT - GAULT 17.83
[2016-07-07 08:06] LABS: BILIRUBIN,TOTAL 1.4 mg/dL (0.2-1.0); TOT PROT 6.1 g/dl (6.4-8.2)
[2016-07-07] MEDS: BACITRACIN 30 GM TUBE TOPICAL OINTMENT TP SCH ×2 (11:50→23:54)
[2016-07-07] MEDS: BRIMONIDINE TARTRATE 0.2% OPHTHALMIC 5 ML BOTTLE OU SCH ×2 (11:50→23:53)
[2016-07-07] MEDS: SILVER SULFADIAZINE 1% TOP CREAM 50 GM JAR TP SCH ×2 (12:29→23:53)
--- NOTE | 2016-07-07 12:38 | PN ---
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 Progress Note: Per RD:"Continues w/ increased nutrition needs r/t anabolic demands as evidenced by multiple Stage II pressure ulcers - Inadequate energy intake as evidenced by consuming 83% energy needs, 88% protein needs; PEG not necessary at this time" Selected Entries 07/06/16 07/06/16 07/06/16 02:00 06:00 10:00 Breakfast Lunch Supper Temperature 97.5 F L 98.6 F 97.8 F 07/06/16 07/06/16 07/06/16 10:41 14:54 18:41 Breakfast 75% Lunch 50% Supper Temperature 98.1 F 97.3 F L 07/06/16 07/06/16 07/07/16 22:00 23:02 03:00 Breakfast Lunch Supper 25% Temperature 97.6 F 97.7 F 07/07/16 06:00 Breakfast Lunch Supper Temperature 97.3 F L No signs or symptoms of dysphagia noted with modified diet. Con't diet as ordered. Continue to encourage PO intake, and supplements b/n meals.
--- NOTE | 2016-07-07 13:02 | PN ---
Progress Note, Physician History of Present Illness: pulmonary pulmonary more alert,-resp distress - Current Medication List Current Medications: Active Medications Acetylcysteine (Mucomyst 20 Oral / Inh Use Only*) 800 mg NEB QIDR [facility] Last Admin: 07/07/16 06:35 Dose: 800 mg Albuterol Sulfate (Ventolin 0.083% Nebulizer Soln -) 1 amp NEB QIDR [facility] Last Admin: 07/07/16 06:35 Dose: 1 amp Amino Acids (Prosource No Carb Liquid Pkt) 30 ml PO BID@0800,1730 [facility] Last Admin: 07/07/16 08:00 Dose: 30 ml Bacitracin (Bacitracin -) 1 applic TP BID [facility] Last Admin: 07/07/16 11:50 Dose: 1 applic Brimonidine Tartrate (Alphagan 0.2% -) 1 drop OU BID [facility] Last Admin: 07/07/16 11:50 Dose: 1 drop Collagenase (Santyl -) 1 applic TP BID [facility] Last Admin: 07/06/16 22:57 Dose: 1 applic Heparin Sodium (Porcine) (Heparin -) 5,000 unit SQ TID [facility] Last Admin: 07/07/16 06:27 Dose: 5,000 unit Famotidine/Sodium Chloride (Pepcid 20 Mg Premixed Ivpb -) 50 mls @ 100 mls/hr IVPB Q48H [facility] Last Admin: 07/06/16 10:01 Dose: 100 mls/hr Insulin Aspart (Novolog Vial Sliding Scale -) 1 vial SQ ACHS [facility] PRN Reason: Protocol Last Admin: 07/07/16 06:27 Dose: Not Given Levothyroxine Sodium (Synthroid -) 50 mcg PO DAILY@0700 [facility] Last Admin: 07/07/16 06:27 Dose: 50 mcg Sevelamer Carbonate (Renvela Powder Packet -) 0.8 gm PO TIDCM [facility] Last Admin: 07/07/16 12:00 Dose: 0.8 gm Silver Sulfadiazine (Silvadene -) 1 applic TP BID [facility] Last Admin: 07/06/16 22:57 Dose: 1 applic - Objective Vital Signs: Vital Signs Temperature 97.3 F L 07/07/16 06:00 Pulse Rate 90 07/07/16 10:40 Respiratory Rate 18 07/07/16 06:00 Blood Pressure 89/57 07/07/16 06:00 O2 Sat by Pulse Oximetry (%) 90 L 07/07/16 10:40 Constitutional: Yes: Well Nourished, Calm Eyes: Yes: WNL HENT: Yes: WNL Neck: Yes: WNL Cardiovascular: Yes: Pulse Irregular, S1, S2 Respiratory: Yes: Rhonchi (few scattered rhonchi) Gastrointestinal: Yes: Normal Bowel Sounds, Soft Extremities: Yes: Other (dressing both legs) Edema: Yes Labs: CBC, BMP 07/07/16 06:15 07/07/16 06:15 INR, PTT INR 1.85 (0.82-1.09) H 06/11/16 05:15 Fibrinogen 405.0 mg/dL (238-498) 06/10/16 04:45 Assessment/Plan ASSESSMENT AND PLAN: s/p Acute Respiratory Failure Back/Shoulder Cellulitis/Abscess Septic vs Cardiogenic Shock resolving Acute on Chronic Renal Failure requiring HD Metabolic Acidosis Acute on Chronic LV Systolic Heart Failure Atrial Fibrillation COPD Atelectasis improving - HD per renal - s/p antibiotic course - O2 to keep SpO2 >90% - aspiration precautions - inhaled bronchodilators with mucolytics - PO as tolerated - DVT/GI prophylaxis - rehab/PT - continue discussions regarding goals of care - ?LTAC candidate, can monitor on telemetry - BIPAP PRN DR GRACE
[2016-07-07] MEDS: COLLAGENASE CLOSTRIDIUM HIST. 30 GRAMS TUBE TP SCH ×2 (16:00→23:53)
[2016-07-07] MEDS ORDERED: PT OWN MED DRAWER 7, Y5N ONE ×2 (17:59→23:44)
--- NOTE | 2016-07-07 18:54 | PN ---
[id number] (Mucomyst 20 Oral / Inh Use Only*) 800 mg NEB QIDR [facility] Last Admin: 07/07/16 18:00 Dose: 800 mg Albuterol Sulfate (Ventolin 0.083% Nebulizer Soln -) 1 amp NEB QIDR [facility] Last Admin: 07/07/16 18:00 Dose: 1 amp Amino Acids (Prosource No Carb Liquid Pkt) 30 ml PO BID@0800,1730 [facility] Last Admin: 07/07/16 18:02 Dose: 30 ml Bacitracin (Bacitracin -) 1 applic TP BID [facility] Last Admin: 07/07/16 11:50 Dose: 1 applic Brimonidine Tartrate (Alphagan 0.2% -) 1 drop OU BID [facility] Last Admin: 07/07/16 11:50 Dose: 1 drop Collagenase (Santyl -) 1 applic TP BID [facility] Last Admin: 07/06/16 22:57 Dose: 1 applic Heparin Sodium (Porcine) (Heparin -) 5,000 unit SQ TID [facility] Last Admin: 07/07/16 17:56 Dose: 5,000 unit Famotidine/Sodium Chloride (Pepcid 20 Mg Premixed Ivpb -) 50 mls @ 100 mls/hr IVPB Q48H [facility] Last Admin: 07/06/16 10:01 Dose: 100 mls/hr Insulin Aspart (Novolog Vial Sliding Scale -) 1 vial SQ ACHS [facility] PRN Reason: Protocol Last Admin: 07/07/16 17:57 Dose: Not Given Levothyroxine Sodium (Synthroid -) 50 mcg PO DAILY@0700 [facility] Last Admin: 07/07/16 06:27 Dose: 50 mcg Sevelamer Carbonate (Renvela Powder Packet -) 0.8 gm PO TIDCM [facility] Last Admin: 07/07/16 18:02 Dose: 0.8 gm Silver Sulfadiazine (Silvadene -) 1 applic TP BID [facility] Last Admin: 07/06/16 22:57 Dose: 1 applic - Objective Vital Signs: Vital Signs Temperature 97.3 F L 07/07/16 06:00 Pulse Rate 90 07/07/16 10:40 Respiratory Rate 18 07/07/16 06:00 Blood Pressure 89/57 07/07/16 06:00 O2 Sat by Pulse Oximetry (%) 90 L 04/24/17 10:40 Constitutional: Yes: Calm Neck: Yes: WNL Cardiovascular: Yes: WNL Respiratory: Yes: WNL Gastrointestinal: Yes: WNL Edema: No Labs: CBC, BMP 07/07/16 06:15 07/07/16 06:15 INR, PTT INR 1.85 (0.82-1.09) H 06/11/16 05:15 Fibrinogen 405.0 mg/dL (238-498) 06/10/16 04:45 Problem List - Problems (1) Anemia Code(s): D64.9 - ANEMIA, UNSPECIFIED Qualifiers: Qualified Code(s): N18.9 - Chronic kidney disease, unspecified; D63.1 - Anemia in chronic kidney disease Assessment/Plan (1) CKD (chronic kidney disease) Code(s): N18.9 - CHRONIC KIDNEY DISEASE, UNSPECIFIED (2) Hyponatremia Code(s): E87.1 - HYPO-OSMOLALITY AND HYPONATREMIA (3) Hypotension Code(s): I95.9 - HYPOTENSION, UNSPECIFIED Qualifiers: Qualified Code(s): I95.89 - Other hypotension (4) Lung consolidation Code(s): J18.1 - LOBAR PNEUMONIA, UNSPECIFIED ORGANISM (5) Anemia Code(s): D64.9 - ANEMIA, UNSPECIFIED Qualifiers: Qualified Code(s): N18.9 - Chronic kidney disease, unspecified; D63.1 - Anemia in chronic kidney disease (6) Atrial flutter Code(s): I48.92 - UNSPECIFIED ATRIAL FLUTTER (7) Bacteremia Code(s): R78.81 - BACTEREMIA (8) COPD (chronic obstructive pulmonary disease) Code(s): J44.9 - CHRONIC OBSTRUCTIVE PULMONARY DISEASE, UNSPECIFIED (9) DMII (diabetes mellitus, type 2) Code(s): E11.9 - TYPE 2 DIABETES MELLITUS WITHOUT COMPLICATIONS (10) Dyspnea Code(s): R06.00 - DYSPNEA, UNSPECIFIED Qualifiers: Qualified Code(s): R06.02 - Shortness of breath (11) Pressure ulcer of lower extremity, stage 1 Code(s): L89.891 - PRESSURE ULCER OF OTHER SITE, STAGE 1 (12) Sepsis Code(s): A41.9 - SEPSIS, UNSPECIFIED ORGANISM Qualifiers: Qualified Code(s): A41.9 - Sepsis, unspecified organism (13) Weakness of both lower limbs Code(s): M62.81 - MUSCLE WEAKNESS (GENERALIZED) (14) Wound of left shoulder Code(s): S41.002A - UNSPECIFIED OPEN WOUND OF LEFT SHOULDER, INITIAL ENCOUNTER Qualifiers: Qualified Code(s): S41.002D - Unspecified open wound of left shoulder, subsequent encounter (15) Acute respiratory distress Code(s): R06.00 - DYSPNEA, UNSPECIFIED Assessment/Plan HD PER RENAL -> NEXT 07/08 NEBS 02 SUPPORT CARDIAC STABLE SNF PT OOB TO CHAIR CASE D/W FAMILY -> OK WITH LTAC BUT NEEDS TO BE CLOSER TO FAMILY TO VISIT FAMILY ALSO CONSIDERED TAKING 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
[2016-07-08] MEDS: ACETYLCYSTEINE 20% 200MG/ML 4 ML VIAL *FOR ORAL / INH USE ONLY NEB SCH ×4 (06:13→17:56)
[2016-07-08] MEDS: ALBUTEROL SO4 0.083% IH SOL 2.5 MG/3 ML VIAL.NEB. NEB SCH ×4 (06:13→17:56)
[2016-07-08] MEDS: HEPARIN NA (PORCINE) 5,000 UNITS/ML 1ML VIAL SQ SCH ×3 (06:46→23:41)
[2016-07-08] MEDS: LEVOTHYROXINE NA 50 MCG TABLET (FP) PO SCH (06:46)
[2016-07-08] MEDS: INSULIN SLIDING SCALE (NOVOLOG) 1 VIAL SQ SCH ×4 (06:46→23:41)
[2016-07-08 08:28] LABS: BASOPHIL 1.2 % (0-2.0); EOSINOPHIL 0.9 % (0-4.5); MCH 27.6 pg (25.7-33.7); MCHC 30.9 g/dl (32.0-35.9); MEAN CELL VOLUME 89.6 fl (80-96); NEUTROPHILS 81.6 % (42.8-82.8); PLATELET COUNT 125 K/MM3 (134-434); RDW 19.2 % (11.9-15.9); WHITE BLOOD COUNT 9.3 K/mm3 (4.0-10.0)
[2016-07-08] MEDS ORDERED: EPOETIN ALFA 3,000 UNIT/1 ML ML IVPUSH ONE (09:00)
[2016-07-08 09:02] LABS: ALBUMIN 1.9 g/dl (3.4-5.0); CALCIUM 8.5 mg/dL (8.5-10.1)
[2016-07-08 09:07] LABS: BILIRUBIN,TOTAL 1.1 mg/dL (0.2-1.0); COCKROFT - GAULT 15.92; CREATININE 5.6 mg/dL (0.7-1.3); TOT PROT 5.8 g/dl (6.4-8.2)
[2016-07-08] MEDS ORDERED: PT OWN MED DRAWER 7, Y5N ONE ×2 (12:16→18:09)
[2016-07-08] MEDS: COLLAGENASE CLOSTRIDIUM HIST. 30 GRAMS TUBE TP SCH ×2 (12:29→23:41)
[2016-07-08] MEDS: AMINO ACIDS/PROTEIN HYDROLYS 30 ML LIQUID.PKT PO SCH ×2 (12:30→18:13)
[2016-07-08] MEDS: SILVER SULFADIAZINE 1% TOP CREAM 50 GM JAR TP SCH ×2 (12:30→23:41)
[2016-07-08] MEDS: SEVELAMER CARBONATE 0.8 GM POWDER PACKET PO SCH ×3 (12:30→18:13)
[2016-07-08] MEDS: BRIMONIDINE TARTRATE 0.2% OPHTHALMIC 5 ML BOTTLE OU SCH ×2 (12:31→23:41)
[2016-07-08] MEDS: BACITRACIN 30 GM TUBE TOPICAL OINTMENT TP SCH ×2 (12:32→23:41)
[2016-07-08] MEDS: PANTOPRAZOLE 40 MG TABLET (FP) PO SCH (12:32)
[2016-07-08] MEDS ORDERED: ALTEPLASE 2 MG VIAL CVP ONE (14:30)
--- NOTE | 2016-07-08 14:33 | PN ---
Progress Note, Physician History of Present Illness: pulmonary lethargic on bipap - Current Medication List Current Medications: Active Medications Acetylcysteine (Mucomyst 20 Oral / Inh Use Only*) 800 mg NEB QIDR [facility] Last Admin: 07/08/16 11:10 Dose: 800 mg Albuterol Sulfate (Ventolin 0.083% Nebulizer Soln -) 1 amp NEB QIDR [facility] Last Admin: 07/08/16 11:10 Dose: 1 amp Alteplase, Recombinant (Cathflo Activase -) 2 mg CVP ONCE ONE Stop: 07/08/16 14:31 Amino Acids (Prosource No Carb Liquid Pkt) 30 ml PO BID@0800,1730 [facility] Last Admin: 07/08/16 12:30 Dose: Not Given Bacitracin (Bacitracin -) 1 applic TP BID [facility] Last Admin: 07/08/16 12:32 Dose: 1 applic Brimonidine Tartrate (Alphagan 0.2% -) 1 drop OU BID [facility] Last Admin: 07/08/16 12:31 Dose: 1 drop Collagenase (Santyl -) 1 applic TP BID [facility] Last Admin: 07/08/16 12:29 Dose: 1 applic Heparin Sodium (Porcine) (Heparin -) 5,000 unit SQ TID [facility] Last Admin: 07/08/16 06:46 Dose: 5,000 unit Insulin Aspart (Novolog Vial Sliding Scale -) 1 vial SQ ACHS [facility] PRN Reason: Protocol Last Admin: 07/08/16 12:54 Dose: Not Given Levothyroxine Sodium (Synthroid -) 50 mcg PO DAILY@0700 [facility] Last Admin: 07/08/16 06:46 Dose: Not Given Pantoprazole Sodium (Protonix -) 40 mg PO DAILY [facility] Last Admin: 07/08/16 12:32 Dose: 40 mg Sevelamer Carbonate (Renvela Powder Packet -) 0.8 gm PO TIDCM [facility] Last Admin: 07/08/16 12:31 Dose: 0.8 gm Silver Sulfadiazine (Silvadene -) 1 applic TP BID [facility] Last Admin: 07/08/16 12:30 Dose: 1 applic - Objective Vital Signs: Vital Signs Temperature 98.2 F 07/08/16 09:25 Pulse Rate 62 07/08/16 11:00 Respiratory Rate 20 07/08/16 11:00 Blood Pressure 88/60 07/08/16 11:00 O2 Sat by Pulse Oximetry (%) 92 L 07/07/16 22:18 Constitutional: Yes: Well Nourished, Other (lethargic) Eyes: Yes: WNL HENT: Yes: WNL Neck: Yes: WNL Cardiovascular: Yes: Pulse Irregular, S1, S2 Respiratory: Yes: Rhonchi (sacattered eyal rhonchi) Gastrointestinal: Yes: Normal Bowel Sounds, Soft Extremities: Yes: Other (wrapped) Edema: Yes Labs: CBC, BMP 07/08/16 07:45 07/08/16 07:45 INR, PTT INR 1.85 (0.82-1.09) H 06/11/16 05:15 Fibrinogen 405.0 mg/dL (238-498) 06/10/16 04:45 Assessment/Plan ASSESSMENT AND PLAN: s/p Acute Respiratory Failure Back/Shoulder Cellulitis/Abscess Septic vs Cardiogenic Shock resolving Acute on Chronic Renal Failure requiring HD Metabolic Acidosis Acute on Chronic LV Systolic Heart Failure Atrial Fibrillation COPD Atelectasis improving - HD per renal - s/p antibiotic course - O2 to keep SpO2 >90% - aspiration precautions - inhaled bronchodilators with mucolytics - PO as tolerated - DVT/GI prophylaxis - rehab/PT - continue discussions regarding goals of care - ?LTAC candidate, can monitor on telemetry - BIPAP PRN - abg DR GRACE
--- NOTE | 2016-07-08 15:31 | PN ---
Progress Note, Physician Chief Complaint: WORSENING OF LEG ULCERS BP LOW 90/58 CANCEL DISCHARGE TO SNF - Current Medication List Current Medications: Active Medications Acetylcysteine (Mucomyst 20 Oral / Inh Use Only*) 800 mg NEB QIDR [facility] Last Admin: 07/08/16 11:10 Dose: 800 mg Albuterol Sulfate (Ventolin 0.083% Nebulizer Soln -) 1 amp NEB QIDR [facility] Last Admin: 07/08/16 11:10 Dose: 1 amp Amino Acids (Prosource No Carb Liquid Pkt) 30 ml PO BID@0800,1730 [facility] Last Admin: 07/08/16 12:30 Dose: Not Given Bacitracin (Bacitracin -) 1 applic TP BID [facility] Last Admin: 07/08/16 12:32 Dose: 1 applic Brimonidine Tartrate (Alphagan 0.2% -) 1 drop OU BID [facility] Last Admin: 07/08/16 12:31 Dose: 1 drop Collagenase (Santyl -) 1 applic TP BID [facility] Last Admin: 07/08/16 12:29 Dose: 1 applic Heparin Sodium (Porcine) (Heparin -) 5,000 unit SQ TID [facility] Last Admin: 07/08/16 06:46 Dose: 5,000 unit Insulin Aspart (Novolog Vial Sliding Scale -) 1 vial SQ ACHS [facility] PRN Reason: Protocol Last Admin: 07/08/16 12:54 Dose: Not Given Levothyroxine Sodium (Synthroid -) 50 mcg PO DAILY@0700 [facility] Last Admin: 07/08/16 06:46 Dose: Not Given Pantoprazole Sodium (Protonix -) 40 mg PO DAILY [facility] Last Admin: 07/08/16 12:32 Dose: 40 mg Sevelamer Carbonate (Renvela Powder Packet -) 0.8 gm PO TIDCM [facility] Last Admin: 07/08/16 12:31 Dose: 0.8 gm Silver Sulfadiazine (Silvadene -) 1 applic TP BID [facility] Last Admin: 07/08/16 12:30 Dose: 1 applic - Objective Vital Signs: Vital Signs Temperature 97.9 F 07/08/16 15:09 Pulse Rate 94 H 07/08/16 15:09 Respiratory Rate 18 07/08/16 15:09 Blood Pressure 96/51 07/08/16 15:09 O2 Sat by Pulse Oximetry (%) 92 L 07/07/16 22:18 Constitutional: Yes: Severe Distress Eyes: Yes: WNL HENT: Yes: WNL Neck: Yes: WNL Cardiovascular: Yes: Pulse Irregular Respiratory: Yes: Diminished, On BiPap, SOB on Exertion Gastrointestinal: Yes: WNL Genitourinary: Yes: López Present Musculoskeletal: Yes: Muscle Weakness Extremities: Yes: Deformity Edema: Yes Peripheral Pulses WNL: Yes Integumentary: Yes: Rash, Skin Tear Wound/Incision: Yes: Open to air, Excoriated (MULTIPLE SKINN UNSTAGEABLE ULCERS TO LEGA AND BUTTOCK WITH WHITE/GREAY DISCHARGE), Unapproximated Neurological: Yes: Pre-Existing Deficit, Unsteady Gait, Weakness ...Motor Strength: LLE, RLE Psychiatric: Yes: Other Labs: CBC, BMP 07/08/16 07:45 07/08/16 07:45 INR, PTT INR 1.85 (0.82-1.09) H 06/11/16 05:15 Fibrinogen 405.0 mg/dL (238-498) 06/10/16 04:45 Problem List - Problems (1) CKD (chronic kidney disease) Code(s): N18.9 - CHRONIC KIDNEY DISEASE, UNSPECIFIED (2) Hyponatremia Code(s): E87.1 - HYPO-OSMOLALITY AND HYPONATREMIA (3) Hypotension Code(s): I95.9 - HYPOTENSION, UNSPECIFIED Qualifiers: Qualified Code(s): I95.89 - Other hypotension (4) Lung consolidation Code(s): J18.1 - LOBAR PNEUMONIA, UNSPECIFIED ORGANISM (5) Anemia Code(s): D64.9 - ANEMIA, UNSPECIFIED Qualifiers: Qualified Code(s): N18.9 - Chronic kidney disease, unspecified; D63.1 - Anemia in chronic kidney disease (6) Atrial flutter Code(s): I48.92 - UNSPECIFIED ATRIAL FLUTTER (7) Bacteremia Code(s): R78.81 - BACTEREMIA (8) COPD (chronic obstructive pulmonary disease) Code(s): J44.9 - CHRONIC OBSTRUCTIVE PULMONARY DISEASE, UNSPECIFIED (9) DMII (diabetes mellitus, type 2) Code(s): E11.9 - TYPE 2 DIABETES MELLITUS WITHOUT COMPLICATIONS (10) Dyspnea Code(s): R06.00 - DYSPNEA, UNSPECIFIED Qualifiers: Qualified Code(s): R06.02 - Shortness of breath (11) Pressure ulcer of lower extremity, stage 1 Code(s): L89.891 - PRESSURE ULCER OF OTHER SITE, STAGE 1 (12) Sepsis Code(s): A41.9 - SEPSIS, UNSPECIFIED ORGANISM Qualifiers: Qualified Code(s): A41.9 - Sepsis, unspecified organism (13) Weakness of both lower limbs Code(s): M62.81 - MUSCLE WEAKNESS (GENERALIZED) (14) Wound of left shoulder Code(s): S41.002A - UNSPECIFIED OPEN WOUND OF LEFT SHOULDER, INITIAL ENCOUNTER Qualifiers: Qualified Code(s): S41.002D - Unspecified open wound of left shoulder, subsequent encounter (15) Acute respiratory distress Code(s): R06.00 - DYSPNEA, UNSPECIFIED Assessment/Plan DECUBITI ULCERS TO LEGS WILL NEED SURGERY CONSULT FOR DEBRIDEMENT ID FOR IV ABX WOUND CARE STOP DISCHARGE TO SNF UNTIL STABLE AND WOUNDS CLEANED HD PER RENAL
[2016-07-08 15:46] LABS: ARTERIAL BLOOD GAS BASE EXCESS 3.8 meq/l (-2-2); ARTERIAL BLOOD GAS HCO3 27.1 meq/L (22-26); ARTERIAL BLOOD GAS pH 7.48 (7.35-7.45)
--- NOTE | 2016-07-08 15:53 | PN ---
Progress Note, Physician History of Present Illness: Pt seen and examined at bedside. HD was stopped after about 45 minutes as catheter stopped working. - Current Medication List Current Medications: Active Medications Acetylcysteine (Mucomyst 20 Oral / Inh Use Only*) 800 mg NEB QIDR [facility] Last Admin: 07/08/16 11:10 Dose: 800 mg Albuterol Sulfate (Ventolin 0.083% Nebulizer Soln -) 1 amp NEB QIDR [facility] Last Admin: 07/08/16 11:10 Dose: 1 amp Amino Acids (Prosource No Carb Liquid Pkt) 30 ml PO BID@0800,1730 [facility] Last Admin: 07/08/16 12:30 Dose: Not Given Bacitracin (Bacitracin -) 1 applic TP BID [facility] Last Admin: 07/08/16 12:32 Dose: 1 applic Brimonidine Tartrate (Alphagan 0.2% -) 1 drop OU BID [facility] Last Admin: 07/08/16 12:31 Dose: 1 drop Collagenase (Santyl -) 1 applic TP BID [facility] Last Admin: 07/08/16 12:29 Dose: 1 applic Heparin Sodium (Porcine) (Heparin -) 5,000 unit SQ TID [facility] Last Admin: 07/08/16 06:46 Dose: 5,000 unit Insulin Aspart (Novolog Vial Sliding Scale -) 1 vial SQ ACHS [facility] PRN Reason: Protocol Last Admin: 07/08/16 12:54 Dose: Not Given Levothyroxine Sodium (Synthroid -) 50 mcg PO DAILY@0700 [facility] Last Admin: 07/08/16 06:46 Dose: Not Given Pantoprazole Sodium (Protonix -) 40 mg PO DAILY [facility] Last Admin: 07/08/16 12:32 Dose: 40 mg Sevelamer Carbonate (Renvela Powder Packet -) 0.8 gm PO TIDCM [facility] Last Admin: 07/08/16 12:31 Dose: 0.8 gm Silver Sulfadiazine (Silvadene -) 1 applic TP BID [facility] Last Admin: 07/08/16 12:30 Dose: 1 applic - Objective Vital Signs: Vital Signs Temperature 97.9 F 07/08/16 15:09 Pulse Rate 94 H 07/08/16 15:09 Respiratory Rate 18 07/08/16 15:09 Blood Pressure 96/51 07/08/16 15:09 O2 Sat by Pulse Oximetry (%) 92 L 07/07/16 22:18 Constitutional: Yes: Calm Eyes: Yes: Conjunctiva Clear HENT: Yes: Atraumatic Cardiovascular: Yes: S1, S2 Respiratory: Yes: On Nasal O2 Gastrointestinal: Yes: Soft, Abdomen, Obese Genitourinary: Yes: López Present Musculoskeletal: Yes: Muscle Weakness Edema: Yes Edema: LLE: 1+, RLE: 1+ Neurological: Yes: Oriented Psychiatric: Yes: Oriented Labs: CBC, BMP 07/08/16 07:45 07/08/16 07:45 INR, PTT INR 1.85 (0.82-1.09) H 06/11/16 05:15 Fibrinogen 405.0 mg/dL (238-498) 06/10/16 04:45 Problem List - Problems (1) Acute hyperkalemia Code(s): E87.5 - HYPERKALEMIA (2) Hyponatremia Code(s): E87.1 - HYPO-OSMOLALITY AND HYPONATREMIA (3) Hypotension Code(s): I95.9 - HYPOTENSION, UNSPECIFIED Qualifiers: Qualified Code(s): I95.89 - Other hypotension (4) Acute on chronic renal failure Code(s): N17.9 - ACUTE KIDNEY FAILURE, UNSPECIFIED N18.9 - CHRONIC KIDNEY DISEASE, UNSPECIFIED (5) Anemia Code(s): D64.9 - ANEMIA, UNSPECIFIED Qualifiers: Qualified Code(s): N18.9 - Chronic kidney disease, unspecified; D63.1 - Anemia in chronic kidney disease (6) COPD (chronic obstructive pulmonary disease) Code(s): J44.9 - CHRONIC OBSTRUCTIVE PULMONARY DISEASE, UNSPECIFIED (7) Congestive heart failure (CHF) Code(s): I50.9 - HEART FAILURE, UNSPECIFIED Qualifiers: Qualified Code(s): I50.22 - Chronic systolic (congestive) heart failure (8) DMII (diabetes mellitus, type 2) Code(s): E11.9 - TYPE 2 DIABETES MELLITUS WITHOUT COMPLICATIONS (9) CKD (chronic kidney disease) Code(s): N18.9 - CHRONIC KIDNEY DISEASE, UNSPECIFIED Assessment/Plan Current Medications Generic Name Dose Route Start Last Admin Trade Name Freq PRN Reason Stop Dose Admin Acetylcysteine 800 mg 07/03/16 18:00 07/08/16 11:10 Mucomyst 20 Oral / Inh Use Only* NEB 800 mg QIDR [facility] Administration Albuterol Sulfate 1 amp 07/03/16 18:00 07/08/16 11:10 Ventolin 0.083% Nebulizer Soln - NEB 1 amp QIDR [facility] Administration Amino Acids 30 ml 07/03/16 17:30 07/08/16 12:30 Prosource No Carb Liquid Pkt PO Not Given BID@0800,1730 [facility] Bacitracin 1 applic 07/03/16 22:00 07/08/16 12:32 Bacitracin - TP 1 applic BID [facility] Administration Brimonidine Tartrate 1 drop 07/03/16 22:00 07/08/16 12:31 Alphagan 0.2% - OU 1 drop BID [facility] Administration Collagenase 1 applic 07/03/16 22:00 07/08/16 12:29 Santyl - TP 1 applic BID [facility] Administration Heparin Sodium (Porcine) 5,000 unit 07/03/16 22:00 07/08/16 06:46 Heparin - SQ 5,000 unit TID [facility] Administration Insulin Aspart 1 vial 07/03/16 16:30 07/08/16 12:54 Novolog Vial Sliding Scale - SQ Not Given ACHS [facility] Protocol Levothyroxine Sodium 50 mcg 07/05/16 07:00 07/08/16 06:46 Synthroid - PO Not Given DAILY@0700 [facility] Pantoprazole Sodium 40 mg 07/08/16 10:00 07/08/16 12:32 Protonix - PO 40 mg DAILY [facility] Administration Sevelamer Carbonate 0.8 gm 07/03/16 17:30 07/08/16 12:31 Renvela Powder Packet - PO 0.8 gm TIDCM [facility] Administration Silver Sulfadiazine 1 applic 07/03/16 22:00 07/08/16 12:30 Silvadene - TP 1 applic BID [facility] Administration Impression 1. 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 sepsis with shock 3. cellulitis/abscess of back 4. CHF acute 5. hypothyroidism 6. hyperlipidemia 7. COPD 8. htn 9. a-fib 10. hyponatremia - isoosmolar 11. acute respiratory failure requiring intubation Plan - pt had about 45 minuted of HD today - catheter is not working. Called vascular surgery, cathflow in catheter overnight - will attempt HD in am - monitor BP - cont with BiPap as needed - wound care to legs - will continue to follow Dr Martinez
[2016-07-08 15:59] LABS: ALLENS TEST POSITIVE; ART PUNCT SITE RIGHT RADIAL; LPM/O2% 60%; PT. ON O2? YES; TYPE OF O2 BIPAP 16/6; VENT RATE 18
[2016-07-09] MEDS: ACETYLCYSTEINE 20% 200MG/ML 4 ML VIAL *FOR ORAL / INH USE ONLY NEB SCH ×4 (00:12→18:26)
[2016-07-09] MEDS: ALBUTEROL SO4 0.083% IH SOL 2.5 MG/3 ML VIAL.NEB. NEB SCH ×4 (00:13→18:26)
[2016-07-09] MEDS: LEVOTHYROXINE NA 50 MCG TABLET (FP) PO SCH (06:46)
[2016-07-09] MEDS: HEPARIN NA (PORCINE) 5,000 UNITS/ML 1ML VIAL SQ SCH ×3 (06:47→22:32)
[2016-07-09] MEDS: INSULIN SLIDING SCALE (NOVOLOG) 1 VIAL SQ SCH ×4 (06:47→22:38)
[2016-07-09 08:21] LABS: CALCIUM 8.5 mg/dL (8.5-10.1); COCKROFT - GAULT 16.21; CREATININE 5.5 mg/dL (0.7-1.3)
[2016-07-09] MEDS: SEVELAMER CARBONATE 0.8 GM POWDER PACKET PO SCH ×3 (08:41→17:50)
[2016-07-09] MEDS: AMINO ACIDS/PROTEIN HYDROLYS 30 ML LIQUID.PKT PO SCH ×2 (08:41→17:50)
[2016-07-09] MEDS ORDERED: PT OWN MED DRAWER 7, Y5N ONE ×4 (10:25→13:01)
[2016-07-09] MEDS: MULTIVITAMINS (DAILY MVI) TABLET (FP) PO SCH (10:31)
[2016-07-09] MEDS: VITAMIN B COMP W-C 1 EA TABLET PO SCH (10:31)
[2016-07-09] MEDS: BACITRACIN 30 GM TUBE TOPICAL OINTMENT TP SCH ×2 (10:31→22:32)
[2016-07-09] MEDS: ZINC SULFATE 220 MG CAPSULE (FP) PO SCH (10:31)
[2016-07-09] MEDS: PANTOPRAZOLE 40 MG TABLET (FP) PO SCH (10:31)
[2016-07-09] MEDS: ASCORBIC ACID 250 MG TABLET (FP) PO SCH (10:32)
--- NOTE | 2016-07-09 10:38 | PN ---
Progress Note, Physician Chief Complaint: ON 02 ASLEEP AWAITING VASC SX FOR LEG WOUND AND SACRAL WOUND DEBRIDEMENT - Current Medication List Current Medications: Active Medications Acetylcysteine (Mucomyst 20 Oral / Inh Use Only*) 800 mg NEB QIDR [facility] Last Admin: 07/09/16 06:43 Dose: 800 mg Albuterol Sulfate (Ventolin 0.083% Nebulizer Soln -) 1 amp NEB QIDR [facility] Last Admin: 07/09/16 06:43 Dose: 1 amp Amino Acids (Prosource No Carb Liquid Pkt) 30 ml PO BID@0800,1730 [facility] Last Admin: 07/09/16 08:41 Dose: Not Given Ascorbic Acid (Vitamin C -) 250 mg PO DAILY [facility] Last Admin: 07/09/16 10:32 Dose: 250 mg Bacitracin (Bacitracin -) 1 applic TP BID [facility] Last Admin: 07/09/16 10:31 Dose: 1 applic Brimonidine Tartrate (Alphagan 0.2% -) 1 drop OU BID [facility] Last Admin: 07/08/16 23:41 Dose: 1 drop Collagenase (Santyl -) 1 applic TP BID [facility] Last Admin: 07/08/16 23:41 Dose: 1 applic Heparin Sodium (Porcine) (Heparin -) 5,000 unit SQ TID [facility] Last Admin: 07/09/16 06:47 Dose: 5,000 unit Insulin Aspart (Novolog Vial Sliding Scale -) 1 vial SQ ACHS [facility] PRN Reason: Protocol Last Admin: 07/09/16 06:47 Dose: Not Given Levothyroxine Sodium (Synthroid -) 50 mcg PO DAILY@0700 [facility] Last Admin: 07/09/16 06:46 Dose: 50 mcg Multivit/Ca Carb/B Cmplx/FA/Prenat (Nephro-Mor -) 1 tablet PO DAILY [facility] Last Admin: 07/09/16 10:31 Dose: 1 tablet Multivitamins/Minerals/Vitamin C (Tab-A-Vit -) 1 tab PO DAILY [facility] Last Admin: 07/09/16 10:31 Dose: 1 tab Pantoprazole Sodium (Protonix -) 40 mg PO DAILY [facility] Last Admin: 07/09/16 10:31 Dose: 40 mg Sevelamer Carbonate (Renvela Powder Packet -) 0.8 gm PO TIDCM [facility] Last Admin: 07/09/16 08:41 Dose: Not Given Silver Sulfadiazine (Silvadene -) 1 applic TP BID [facility] Last Admin: 07/08/16 23:41 Dose: 1 applic Zinc Sulfate (Orazinc -) 220 mg PO DAILY [facility] Last Admin: 07/09/16 10:31 Dose: 220 mg - Objective Vital Signs: Vital Signs Temperature 97.9 F 07/09/16 06:00 Pulse Rate 96 H 07/09/16 06:00 Respiratory Rate 20 07/09/16 06:00 Blood Pressure 92/57 07/09/16 06:00 O2 Sat by Pulse Oximetry (%) 97 07/08/16 22:16 Constitutional: Yes: Moderate Distress Eyes: Yes: WNL HENT: Yes: WNL Neck: Yes: WNL Cardiovascular: Yes: Pulse Irregular Respiratory: Yes: Diminished, On BiPap Gastrointestinal: Yes: WNL Genitourinary: Yes: Other Musculoskeletal: Yes: Muscle Weakness Extremities: Yes: Deformity Edema: Yes Edema: LLE: Trace, RLE: Trace Peripheral Pulses WNL: Yes Integumentary: Yes: Pressure Ulcer (MULTIPLE LEG WOUNDS UNSTAGEABLE) Wound/Incision: Yes: Open to air, Unapproximated Neurological: Yes: Paresthesia, Unsteady Gait, Weakness, Other ...Motor Strength: RUE, RLE Psychiatric: Yes: Other Labs: CBC, BMP 07/08/16 07:45 07/09/16 05:35 INR, PTT INR 1.85 (0.82-1.09) H 06/11/16 05:15 Fibrinogen 405.0 mg/dL (238-498) 06/10/16 04:45 Problem List - Problems (1) CKD (chronic kidney disease) Code(s): N18.9 - CHRONIC KIDNEY DISEASE, UNSPECIFIED (2) Hyponatremia Code(s): E87.1 - HYPO-OSMOLALITY AND HYPONATREMIA (3) Hypotension Code(s): I95.9 - HYPOTENSION, UNSPECIFIED Qualifiers: Qualified Code(s): I95.89 - Other hypotension (4) Lung consolidation Code(s): J18.1 - LOBAR PNEUMONIA, UNSPECIFIED ORGANISM (5) Anemia Code(s): D64.9 - ANEMIA, UNSPECIFIED Qualifiers: Qualified Code(s): N18.9 - Chronic kidney disease, unspecified; D63.1 - Anemia in chronic kidney disease (6) Atrial flutter Code(s): I48.92 - UNSPECIFIED ATRIAL FLUTTER (7) Bacteremia Code(s): R78.81 - BACTEREMIA (8) COPD (chronic obstructive pulmonary disease) Code(s): J44.9 - CHRONIC OBSTRUCTIVE PULMONARY DISEASE, UNSPECIFIED (9) DMII (diabetes mellitus, type 2) Code(s): E11.9 - TYPE 2 DIABETES MELLITUS WITHOUT COMPLICATIONS (10) Dyspnea Code(s): R06.00 - DYSPNEA, UNSPECIFIED Qualifiers: Qualified Code(s): R06.02 - Shortness of breath (11) Pressure ulcer of lower extremity, stage 1 Code(s): L89.891 - PRESSURE ULCER OF OTHER SITE, STAGE 1 (12) Sepsis Code(s): A41.9 - SEPSIS, UNSPECIFIED ORGANISM Qualifiers: Qualified Code(s): A41.9 - Sepsis, unspecified organism (13) Weakness of both lower limbs Code(s): M62.81 - MUSCLE WEAKNESS (GENERALIZED) (14) Wound of left shoulder Code(s): S41.002A - UNSPECIFIED OPEN WOUND OF LEFT SHOULDER, INITIAL ENCOUNTER Qualifiers: Qualified Code(s): S41.002D - Unspecified open wound of left shoulder, subsequent encounter (15) Acute respiratory distress Code(s): R06.00 - DYSPNEA, UNSPECIFIED Assessment/Plan PATIENT HAS DETERIORATED MEDICALLY DRASTICALLY OVER THE PAST 1 MONTH. HE IS NOW ESRD/HD, MULTIPLE DECUBITI ULCERS, HEART FAILURE DISCUSSED WITH PATIENT AT MY OFFICE ON HIS ROUTING VISITS THAT DOES NOT WANT TO BE ON ARTIFICIAL LIFE SUPPORT. PALLIATIVE CARE CONSULT AND HOSPICE REFERRAL. WILL DISCUSS WITH FAMILY, CONTINUE CURRENT CARE FOR NOW
[2016-07-09 11:03] LABS: MAGNESIUM 2.2 mg/dL (1.8-2.4)
--- NOTE | 2016-07-09 12:25 | PN ---
Progress Note, Physician History of Present Illness: Pt seen and examined at bedside. He is tolerating HD today. The catheter is working. - Current Medication List Current Medications: Active Medications Acetylcysteine (Mucomyst 20 Oral / Inh Use Only*) 800 mg NEB QIDR [facility] Last Admin: 07/09/16 11:40 Dose: 800 mg Albuterol Sulfate (Ventolin 0.083% Nebulizer Soln -) 1 amp NEB QIDR [facility] Last Admin: 07/09/16 11:41 Dose: 1 amp Amino Acids (Prosource No Carb Liquid Pkt) 30 ml PO BID@0800,1730 [facility] Last Admin: 07/09/16 08:41 Dose: Not Given Ascorbic Acid (Vitamin C -) 250 mg PO DAILY [facility] Last Admin: 07/09/16 10:32 Dose: 250 mg Bacitracin (Bacitracin -) 1 applic TP BID [facility] Last Admin: 07/09/16 10:31 Dose: 1 applic Brimonidine Tartrate (Alphagan 0.2% -) 1 drop OU BID [facility] Last Admin: 07/08/16 23:41 Dose: 1 drop Collagenase (Santyl -) 1 applic TP BID [facility] Last Admin: 07/08/16 23:41 Dose: 1 applic Heparin Sodium (Porcine) (Heparin -) 5,000 unit SQ TID [facility] Last Admin: 07/09/16 06:47 Dose: 5,000 unit Insulin Aspart (Novolog Vial Sliding Scale -) 1 vial SQ ACHS [facility] PRN Reason: Protocol Last Admin: 07/09/16 06:47 Dose: Not Given Levothyroxine Sodium (Synthroid -) 50 mcg PO DAILY@0700 [facility] Last Admin: 07/09/16 06:46 Dose: 50 mcg Multivit/Ca Carb/B Cmplx/FA/Prenat (Nephro-Mor -) 1 tablet PO DAILY [facility] Last Admin: 07/09/16 10:31 Dose: 1 tablet Multivitamins/Minerals/Vitamin C (Tab-A-Vit -) 1 tab PO DAILY [facility] Last Admin: 07/09/16 10:31 Dose: 1 tab Pantoprazole Sodium (Protonix -) 40 mg PO DAILY [facility] Last Admin: 07/09/16 10:31 Dose: 40 mg Sevelamer Carbonate (Renvela Powder Packet -) 0.8 gm PO TIDCM [facility] Last Admin: 07/09/16 08:41 Dose: Not Given Silver Sulfadiazine (Silvadene -) 1 applic TP BID [facility] Last Admin: 07/08/16 23:41 Dose: 1 applic Zinc Sulfate (Orazinc -) 220 mg PO DAILY [facility] Last Admin: 07/09/16 10:31 Dose: 220 mg - Objective Vital Signs: Vital Signs Temperature 98 F 07/09/16 08:25 Pulse Rate 78 07/09/16 12:01 Respiratory Rate 20 07/09/16 12:01 Blood Pressure 99/45 07/09/16 12:01 O2 Sat by Pulse Oximetry (%) 95 07/09/16 09:00 Constitutional: Yes: Calm HENT: Yes: Normocephalic Cardiovascular: Yes: S1, S2 Respiratory: Yes: On Nasal O2 Gastrointestinal: Yes: Soft Genitourinary: Yes: Incontinence Edema: Yes Edema: LLE: Trace, RLE: Trace Neurological: Yes: Confusion Labs: CBC, BMP 07/08/16 07:45 07/09/16 05:35 INR, PTT INR 1.85 (0.82-1.09) H 06/11/16 05:15 Fibrinogen 405.0 mg/dL (238-498) 06/10/16 04:45 Problem List - Problems (1) Acute hyperkalemia Code(s): E87.5 - HYPERKALEMIA (2) Hyponatremia Code(s): E87.1 - HYPO-OSMOLALITY AND HYPONATREMIA (3) Hypotension Code(s): I95.9 - HYPOTENSION, UNSPECIFIED Qualifiers: Qualified Code(s): I95.89 - Other hypotension (4) Acute on chronic renal failure Code(s): N17.9 - ACUTE KIDNEY FAILURE, UNSPECIFIED N18.9 - CHRONIC KIDNEY DISEASE, UNSPECIFIED (5) Anemia Code(s): D64.9 - ANEMIA, UNSPECIFIED Qualifiers: Qualified Code(s): N18.9 - Chronic kidney disease, unspecified; D63.1 - Anemia in chronic kidney disease (6) COPD (chronic obstructive pulmonary disease) Code(s): J44.9 - CHRONIC OBSTRUCTIVE PULMONARY DISEASE, UNSPECIFIED (7) Congestive heart failure (CHF) Code(s): I50.9 - HEART FAILURE, UNSPECIFIED Qualifiers: Qualified Code(s): I50.22 - Chronic systolic (congestive) heart failure (8) DMII (diabetes mellitus, type 2) Code(s): E11.9 - TYPE 2 DIABETES MELLITUS WITHOUT COMPLICATIONS (9) CKD (chronic kidney disease) Code(s): N18.9 - CHRONIC KIDNEY DISEASE, UNSPECIFIED Assessment/Plan Current Medications Generic Name Dose Route Start Last Admin Trade Name Anamq PRN Reason Stop Dose Admin Acetylcysteine 800 mg 07/03/16 18:00 07/09/16 11:40 Mucomyst 20 Oral / Inh Use Only* NEB 800 mg QIDR [facility] Administration Albuterol Sulfate 1 amp 07/03/16 18:00 07/09/16 11:41 Ventolin 0.083% Nebulizer Soln - NEB 1 amp QIDR [facility] Administration Amino Acids 30 ml 07/03/16 17:30 07/09/16 08:41 Prosource No Carb Liquid Pkt PO Not Given BID@0800,1730 [facility] Ascorbic Acid 250 mg 07/09/16 10:00 07/09/16 10:32 Vitamin C - PO 250 mg DAILY [facility] Administration Bacitracin 1 applic 07/03/16 22:00 07/09/16 10:31 Bacitracin - TP 1 applic BID [facility] Administration Brimonidine Tartrate 1 drop 07/03/16 22:00 07/08/16 23:41 Alphagan 0.2% - OU 1 drop BID [facility] Administration Collagenase 1 applic 07/03/16 22:00 07/08/16 23:41 Santyl - TP 1 applic BID [facility] Administration Heparin Sodium (Porcine) 5,000 unit 07/03/16 22:00 07/09/16 06:47 Heparin - SQ 5,000 unit TID [facility] Administration Insulin Aspart 1 vial 07/03/16 16:30 07/09/16 06:47 Novolog Vial Sliding Scale - SQ Not Given ACHS [facility] Protocol Levothyroxine Sodium 50 mcg 07/05/16 07:00 07/09/16 06:46 Synthroid - PO 50 mcg DAILY@0700 [facility] Administration Multivit/Ca Carb/B Cmplx/FA/Prenat 1 tablet 07/09/16 10:00 07/09/16 10:31 Nephro-Mor - PO 1 tablet DAILY [facility] Administration Multivitamins/Minerals/Vitamin C 1 tab 07/09/16 10:00 07/09/16 10:31 Tab-A-Vit - PO 1 tab DAILY [facility] Administration Pantoprazole Sodium 40 mg 07/08/16 10:00 07/09/16 10:31 Protonix - PO 40 mg DAILY [facility] Administration Sevelamer Carbonate 0.8 gm 07/03/16 17:30 07/09/16 08:41 Renvela Powder Packet - PO Not Given TIDCM [facility] Silver Sulfadiazine 1 applic 07/03/16 22:00 07/08/16 23:41 Silvadene - TP 1 applic BID [facility] Administration Zinc Sulfate 220 mg 07/09/16 10:00 07/09/16 10:31 Orazinc - PO 220 mg DAILY [facility] Administration Impression 1. 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 sepsis with shock 3. cellulitis/abscess of back 4. CHF acute 5. hypothyroidism 6. hyperlipidemia 7. COPD 8. htn 9. a-fib 10. hyponatremia - isoosmolar 11. acute respiratory failure requiring intubation Plan - HD today, catheter is working - PMD input appreciated, hospice evaluation ordered - will stay on standby - family to discussed plan about further HD - monitor BP - cont with BiPap as needed - wound care to legs - will continue to follow Dr Martinez
--- NOTE | 2016-07-09 12:43 | PN ---
Progress Note, ENROLLMENT SPECIALIST - Note Progress Note: Selected Entries 07/07/16 07/07/16 07/07/16 09:00 15:40 18:40 Breakfast 25% Diet Tolerated Well Well Well Lunch 75% Supper 50% Temperature 07/07/16 07/08/16 07/08/16 22:00 02:00 06:49 Breakfast Diet Tolerated Well Lunch Supper 50% Temperature 97.8 F 96.8 F L 07/08/16 07/08/16 07/08/16 09:25 10:00 11:34 Breakfast 50% Diet Tolerated Lunch Supper Temperature 98.2 F 98.0 F 07/08/16 07/08/16 07/08/16 15:09 18:02 22:00 Breakfast Diet Tolerated Lunch 50% Supper Temperature 97.9 F 97.7 F 96.9 F L 07/08/16 07/08/16 07/09/16 22:16 22:39 02:00 Breakfast Diet Tolerated Lunch 50% Supper 25% Temperature 98.2 F 07/09/16 07/09/16 06:00 08:25 Breakfast Diet Tolerated Lunch Supper Temperature 97.9 F 98 F Accepted 1/2 of breakfast after dialysis, with ensure compact mixed into hot cereal. Tolerarting diet without signs or symptoms of aspiration. Hospice evaluation ordered.
[2016-07-09] MEDS: BRIMONIDINE TARTRATE 0.2% OPHTHALMIC 5 ML BOTTLE OU SCH ×2 (12:49→22:32)
[2016-07-09] MEDS: SILVER SULFADIAZINE 1% TOP CREAM 50 GM JAR TP SCH ×2 (12:50→22:33)
[2016-07-09] MEDS: COLLAGENASE CLOSTRIDIUM HIST. 30 GRAMS TUBE TP SCH ×2 (12:50→22:33)
[2016-07-09] MEDS ORDERED: INSULIN (NOVOLOG) ASPART 100 UNITS/ML 10ML VIAL ONE ×2 (13:04→17:06)
--- NOTE | 2016-07-09 13:55 | PN ---
Progress Note, Physician History of Present Illness: pulmonary lethargic on vm,mildly dyspneic - Current Medication List Current Medications: Active Medications Acetylcysteine (Mucomyst 20 Oral / Inh Use Only*) 800 mg NEB QIDR [facility] Last Admin: 07/09/16 11:40 Dose: 800 mg Albuterol Sulfate (Ventolin 0.083% Nebulizer Soln -) 1 amp NEB QIDR [facility] Last Admin: 07/09/16 11:41 Dose: 1 amp Amino Acids (Prosource No Carb Liquid Pkt) 30 ml PO BID@0800,1730 [facility] Last Admin: 07/09/16 08:41 Dose: Not Given Ascorbic Acid (Vitamin C -) 250 mg PO DAILY [facility] Last Admin: 07/09/16 10:32 Dose: 250 mg Bacitracin (Bacitracin -) 1 applic TP BID [facility] Last Admin: 07/09/16 10:31 Dose: 1 applic Brimonidine Tartrate (Alphagan 0.2% -) 1 drop OU BID [facility] Last Admin: 07/09/16 12:49 Dose: 1 drop Collagenase (Santyl -) 1 applic TP BID [facility] Last Admin: 07/09/16 12:50 Dose: 1 applic Heparin Sodium (Porcine) (Heparin -) 5,000 unit SQ TID [facility] Last Admin: 07/09/16 13:25 Dose: 5,000 unit Insulin Aspart (Novolog Vial Sliding Scale -) 1 vial SQ ACHS [facility] PRN Reason: Protocol Last Admin: 07/09/16 13:25 Dose: 4 units Levothyroxine Sodium (Synthroid -) 50 mcg PO DAILY@0700 [facility] Last Admin: 07/09/16 06:46 Dose: 50 mcg Multivit/Ca Carb/B Cmplx/FA/Prenat (Nephro-Mor -) 1 tablet PO DAILY [facility] Last Admin: 07/09/16 10:31 Dose: 1 tablet Multivitamins/Minerals/Vitamin C (Tab-A-Vit -) 1 tab PO DAILY [facility] Last Admin: 07/09/16 10:31 Dose: 1 tab Pantoprazole Sodium (Protonix -) 40 mg PO DAILY [facility] Last Admin: 07/09/16 10:31 Dose: 40 mg Sevelamer Carbonate (Renvela Powder Packet -) 0.8 gm PO TIDCM [facility] Last Admin: 07/09/16 12:51 Dose: 0.8 gm Silver Sulfadiazine (Silvadene -) 1 applic TP BID [facility] Last Admin: 07/09/16 12:50 Dose: 1 applic Zinc Sulfate (Orazinc -) 220 mg PO DAILY [facility] Last Admin: 07/09/16 10:31 Dose: 220 mg - Objective Vital Signs: Vital Signs Temperature 98 F 07/09/16 08:25 Pulse Rate 78 07/09/16 12:01 Respiratory Rate 20 07/09/16 12:01 Blood Pressure 99/45 07/09/16 12:01 O2 Sat by Pulse Oximetry (%) 95 07/09/16 09:00 Constitutional: Yes: Well Nourished, Other (lethargic) Eyes: Yes: WNL HENT: Yes: WNL Neck: Yes: WNL Cardiovascular: Yes: Pulse Irregular, S1, S2 Respiratory: Yes: Rhonchi (scattered eyal rhonchi) Gastrointestinal: Yes: Normal Bowel Sounds, Soft Extremities: Yes: Other (wrapped) Labs: CBC, BMP 07/08/16 07:45 07/09/16 05:35 INR, PTT INR 1.85 (0.82-1.09) H 06/11/16 05:15 Fibrinogen 405.0 mg/dL (238-498) 06/10/16 04:45 Laboratory Tests 07/08/16 14:33 ABG pH 7.48 H ABG pCO2 at Pt Temp 36.7 ABG pO2 at Pt Temp 197.0 H* D ABG HCO3 27.1 H ABG O2 Sat (Measured) 100.0 H* O2 Delivery Device Bipap 16/6 Oxygen Flow Rate 60% Vent Rate 18 Assessment/Plan ASSESSMENT AND PLAN: s/p Acute Respiratory Failure Back/Shoulder Cellulitis/Abscess Septic vs Cardiogenic Shock resolving Acute on Chronic Renal Failure requiring HD Metabolic Acidosis 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
[2016-07-10] MEDS: ALBUTEROL SO4 0.083% IH SOL 2.5 MG/3 ML VIAL.NEB. NEB SCH ×5 (00:05→23:10)
[2016-07-10] MEDS: ACETYLCYSTEINE 20% 200MG/ML 4 ML VIAL *FOR ORAL / INH USE ONLY NEB SCH ×5 (00:05→23:10)
[2016-07-10] MEDS: HEPARIN NA (PORCINE) 5,000 UNITS/ML 1ML VIAL SQ SCH ×3 (07:31→21:17)
[2016-07-10] MEDS: LEVOTHYROXINE NA 50 MCG TABLET (FP) PO SCH (07:32)
[2016-07-10] MEDS: INSULIN SLIDING SCALE (NOVOLOG) 1 VIAL SQ SCH ×4 (07:32→21:17)
[2016-07-10] MEDS ORDERED: PT OWN MED DRAWER 7, Y5N ONE ×6 (08:21→21:04)
[2016-07-10] MEDS: AMINO ACIDS/PROTEIN HYDROLYS 30 ML LIQUID.PKT PO SCH ×2 (08:26→17:10)
[2016-07-10] MEDS: SEVELAMER CARBONATE 0.8 GM POWDER PACKET PO SCH ×3 (08:26→17:11)
[2016-07-10] MEDS: SILVER SULFADIAZINE 1% TOP CREAM 50 GM JAR TP SCH ×2 (10:10→21:18)
[2016-07-10] MEDS: MULTIVITAMINS (DAILY MVI) TABLET (FP) PO SCH (10:10)
[2016-07-10] MEDS: PANTOPRAZOLE 40 MG TABLET (FP) PO SCH (10:10)
[2016-07-10] MEDS: BRIMONIDINE TARTRATE 0.2% OPHTHALMIC 5 ML BOTTLE OU SCH ×2 (10:10→21:17)
[2016-07-10] MEDS: BACITRACIN 30 GM TUBE TOPICAL OINTMENT TP SCH ×2 (10:11→21:19)
[2016-07-10] MEDS: COLLAGENASE CLOSTRIDIUM HIST. 30 GRAMS TUBE TP SCH ×2 (10:11→21:19)
[2016-07-10] MEDS: VITAMIN B COMP W-C 1 EA TABLET PO SCH ×2 (11:06→11:28)
[2016-07-10] MEDS: ZINC SULFATE 220 MG CAPSULE (FP) PO SCH ×2 (11:07→11:28)
[2016-07-10] MEDS: ASCORBIC ACID 250 MG TABLET (FP) PO SCH (11:07)
--- NOTE | 2016-07-10 13:12 | PN ---
Progress Note, Physician History of Present Illness: Pt seen and examined at bedside. He is awake and appears comfortable. - Current Medication List Current Medications: Active Medications Acetylcysteine (Mucomyst 20 Oral / Inh Use Only*) 800 mg NEB QIDR [facility] Last Admin: 07/10/16 12:12 Dose: 800 mg Albuterol Sulfate (Ventolin 0.083% Nebulizer Soln -) 1 amp NEB QIDR [facility] Last Admin: 07/10/16 12:12 Dose: 1 amp Amino Acids (Prosource No Carb Liquid Pkt) 30 ml PO BID@0800,1730 [facility] Last Admin: 07/10/16 08:26 Dose: 30 ml Ascorbic Acid (Vitamin C -) 250 mg PO DAILY [facility] Last Admin: 07/10/16 11:07 Dose: Not Given Bacitracin (Bacitracin -) 1 applic TP BID [facility] Last Admin: 07/10/16 10:11 Dose: 1 applic Brimonidine Tartrate (Alphagan 0.2% -) 1 drop OU BID [facility] Last Admin: 07/10/16 10:10 Dose: 1 drop Collagenase (Santyl -) 1 applic TP BID [facility] Last Admin: 07/10/16 10:11 Dose: 1 applic Heparin Sodium (Porcine) (Heparin -) 5,000 unit SQ TID [facility] Last Admin: 07/10/16 07:31 Dose: 5,000 unit Insulin Aspart (Novolog Vial Sliding Scale -) 1 vial SQ ACHS [facility] PRN Reason: Protocol Last Admin: 07/10/16 11:27 Dose: 2 units Levothyroxine Sodium (Synthroid -) 50 mcg PO DAILY@0700 [facility] Last Admin: 07/10/16 07:32 Dose: 50 mcg Multivit/Ca Carb/B Cmplx/FA/Prenat (Nephro-Mor -) 1 tablet PO DAILY [facility] Last Admin: 07/10/16 11:28 Dose: 1 tablet Multivitamins/Minerals/Vitamin C (Tab-A-Vit -) 1 tab PO DAILY [facility] Last Admin: 07/10/16 10:10 Dose: 1 tab Pantoprazole Sodium (Protonix -) 40 mg PO DAILY [facility] Last Admin: 07/10/16 10:10 Dose: 40 mg Sevelamer Carbonate (Renvela Powder Packet -) 0.8 gm PO TIDCM [facility] Last Admin: 07/10/16 12:43 Dose: Not Given Silver Sulfadiazine (Silvadene -) 1 applic TP BID [facility] Last Admin: 07/10/16 10:10 Dose: 1 applic Zinc Sulfate (Orazinc -) 220 mg PO DAILY [facility] Last Admin: 07/10/16 11:28 Dose: 220 mg - Objective Vital Signs: Vital Signs Temperature 97 F L 07/10/16 06:00 Pulse Rate 135 H 07/10/16 06:00 Respiratory Rate 18 07/10/16 06:00 Blood Pressure 109/71 07/10/16 06:00 O2 Sat by Pulse Oximetry (%) 90 L 07/09/16 22:00 Constitutional: Yes: Calm Eyes: Yes: Conjunctiva Clear HENT: Yes: Atraumatic Cardiovascular: Yes: S1, S2 Respiratory: Yes: Diminished, On Nasal O2 Gastrointestinal: Yes: Soft Genitourinary: Yes: Incontinence Musculoskeletal: Yes: Muscle Weakness Edema: Yes Neurological: Yes: Confusion Labs: CBC, BMP 07/08/16 07:45 07/09/16 05:35 INR, PTT INR 1.85 (0.82-1.09) H 06/11/16 05:15 Fibrinogen 405.0 mg/dL (238-498) 06/10/16 04:45 Problem List - Problems (1) Acute hyperkalemia Code(s): E87.5 - HYPERKALEMIA (2) Hyponatremia Code(s): E87.1 - HYPO-OSMOLALITY AND HYPONATREMIA (3) Hypotension Code(s): I95.9 - HYPOTENSION, UNSPECIFIED Qualifiers: Qualified Code(s): I95.89 - Other hypotension (4) Acute on chronic renal failure Code(s): N17.9 - ACUTE KIDNEY FAILURE, UNSPECIFIED N18.9 - CHRONIC KIDNEY DISEASE, UNSPECIFIED (5) Anemia Code(s): D64.9 - ANEMIA, UNSPECIFIED Qualifiers: Qualified Code(s): N18.9 - Chronic kidney disease, unspecified; D63.1 - Anemia in chronic kidney disease (6) COPD (chronic obstructive pulmonary disease) Code(s): J44.9 - CHRONIC OBSTRUCTIVE PULMONARY DISEASE, UNSPECIFIED (7) Congestive heart failure (CHF) Code(s): I50.9 - HEART FAILURE, UNSPECIFIED Qualifiers: Qualified Code(s): I50.22 - Chronic systolic (congestive) heart failure (8) DMII (diabetes mellitus, type 2) Code(s): E11.9 - TYPE 2 DIABETES MELLITUS WITHOUT COMPLICATIONS (9) CKD (chronic kidney disease) Code(s): N18.9 - CHRONIC KIDNEY DISEASE, UNSPECIFIED Assessment/Plan Current Medications Generic Name Dose Route Start Last Admin Trade Name Katlyn PRN Reason Stop Dose Admin Acetylcysteine 800 mg 07/03/16 18:00 07/10/16 12:12 Mucomyst 20 Oral / Inh Use Only* NEB 800 mg QIDR [facility] Administration Albuterol Sulfate 1 amp 07/03/16 18:00 07/10/16 12:12 Ventolin 0.083% Nebulizer Soln - NEB 1 amp QIDR [facility] Administration Amino Acids 30 ml 07/03/16 17:30 07/10/16 08:26 Prosource No Carb Liquid Pkt PO 30 ml BID@0800,1730 [facility] Administration Ascorbic Acid 250 mg 07/09/16 10:00 07/10/16 11:07 Vitamin C - PO Not Given DAILY [facility] Bacitracin 1 applic 07/03/16 22:00 07/10/16 10:11 Bacitracin - TP 1 applic BID [facility] Administration Brimonidine Tartrate 1 drop 07/03/16 22:00 07/10/16 10:10 Alphagan 0.2% - OU 1 drop BID [facility] Administration Collagenase 1 applic 07/03/16 22:00 07/10/16 10:11 Santyl - TP 1 applic BID [facility] Administration Heparin Sodium (Porcine) 5,000 unit 07/03/16 22:00 07/10/16 07:31 Heparin - SQ 5,000 unit TID [facility] Administration Insulin Aspart 1 vial 07/03/16 16:30 07/10/16 11:27 Novolog Vial Sliding Scale - SQ 2 units ACHS [facility] Administration Protocol Levothyroxine Sodium 50 mcg 07/05/16 07:00 07/10/16 07:32 Synthroid - PO 50 mcg DAILY@0700 [facility] Administration Multivit/Ca Carb/B Cmplx/FA/Prenat 1 tablet 07/09/16 10:00 07/10/16 11:28 Nephro-Mor - PO 1 tablet DAILY [facility] Administration Multivitamins/Minerals/Vitamin C 1 tab 07/09/16 10:00 07/10/16 10:10 Tab-A-Vit - PO 1 tab DAILY [facility] Administration Pantoprazole Sodium 40 mg 07/08/16 10:00 07/10/16 10:10 Protonix - PO 40 mg DAILY [facility] Administration Sevelamer Carbonate 0.8 gm 07/03/16 17:30 07/10/16 12:43 Renvela Powder Packet - PO Not Given TIDCM [facility] Silver Sulfadiazine 1 applic 07/03/16 22:00 07/10/16 10:10 Silvadene - TP 1 applic BID [facility] Administration Zinc Sulfate 220 mg 07/09/16 10:00 07/10/16 11:28 Orazinc - PO 220 mg DAILY [facility] Administration Impression 1. 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 sepsis with shock 3. cellulitis/abscess of back 4. CHF acute 5. hypothyroidism 6. hyperlipidemia 7. COPD 8. htn 9. a-fib 10. hyponatremia - isoosmolar 11. acute respiratory failure requiring intubation Plan - pt tolerated HD yesterday - called pts HCP and discussed HD, she would like him to stay on HD for now. She is not yet sure about comfort care. - will arrange for HD in am - monitor BP - cont with BiPap as needed - wound care to legs - will continue to follow Dr Martinez
--- NOTE | 2016-07-10 13:23 | PN ---
Progress Note (short form) - Note Progress Note: PULMONARY Denies shortness of breath or chest pain. No fevers recorded. Currently on 50% ventimask. Last Vital Signs Temp Pulse Resp BP Pulse Ox 97 F L 135 H 18 109/71 90 L 07/10/16 06:00 07/10/16 06:00 07/10/16 06:00 07/10/16 06:00 07/09/16 22:00 Gen: less tachypneic Heart: RRR Lung: scattered rhonchi Abd: soft, nontender Ext: decreasing edema CBC, BMP 07/08/16 07:45 07/09/16 05:35 Active Medications Acetylcysteine (Mucomyst 20 Oral / Inh Use Only*) 800 mg NEB QIDR [facility] Last Admin: 07/10/16 12:12 Dose: 800 mg Albumin Human (Albumin Human 25%) 12.5 gm IVPB Q30M [facility] Albuterol Sulfate (Ventolin 0.083% Nebulizer Soln -) 1 amp NEB QIDR [facility] Last Admin: 07/10/16 12:12 Dose: 1 amp Amino Acids (Prosource No Carb Liquid Pkt) 30 ml PO BID@0800,1730 [facility] Last Admin: 07/10/16 08:26 Dose: 30 ml Ascorbic Acid (Vitamin C -) 250 mg PO DAILY [facility] Last Admin: 07/10/16 11:07 Dose: Not Given Bacitracin (Bacitracin -) 1 applic TP BID [facility] Last Admin: 07/10/16 10:11 Dose: 1 applic Brimonidine Tartrate (Alphagan 0.2% -) 1 drop OU BID [facility] Last Admin: 07/10/16 10:10 Dose: 1 drop Collagenase (Santyl -) 1 applic TP BID [facility] Last Admin: 07/10/16 10:11 Dose: 1 applic Epoetin Wilson (Epogen -) 7,000 units IVPUSH ONCE ONE Stop: 07/11/16 13:15 Heparin Sodium (Porcine) (Heparin -) 5,000 unit SQ TID [facility] Last Admin: 07/10/16 07:31 Dose: 5,000 unit Heparin Sodium (Porcine) (Heparin -) 1,000 unit IVPUSH ONCE ONE Stop: 07/11/16 13:15 Insulin Aspart (Novolog Vial Sliding Scale -) 1 vial SQ ACHS [facility] PRN Reason: Protocol Last Admin: 07/10/16 11:27 Dose: 2 units Levothyroxine Sodium (Synthroid -) 50 mcg PO DAILY@0700 [facility] Last Admin: 07/10/16 07:32 Dose: 50 mcg Multivit/Ca Carb/B Cmplx/FA/Prenat (Nephro-Mor -) 1 tablet PO DAILY [facility] Last Admin: 07/10/16 11:28 Dose: 1 tablet Multivitamins/Minerals/Vitamin C (Tab-A-Vit -) 1 tab PO DAILY [facility] Last Admin: 07/10/16 10:10 Dose: 1 tab Pantoprazole Sodium (Protonix -) 40 mg PO DAILY [facility] Last Admin: 07/10/16 10:10 Dose: 40 mg Sevelamer Carbonate (Renvela Powder Packet -) 0.8 gm PO TIDCM [facility] Last Admin: 07/10/16 12:43 Dose: Not Given Silver Sulfadiazine (Silvadene -) 1 applic TP BID [facility] Last Admin: 07/10/16 10:10 Dose: 1 applic Zinc Sulfate (Orazinc -) 220 mg PO DAILY [facility] Last Admin: 07/10/16 11:28 Dose: 220 mg A/P s/p Acute Respiratory Failure Back/Shoulder Cellulitis/Abscess Septic vs Cardiogenic Shock Acute on Chronic Renal Failure Metabolic Acidosis Acute on Chronic LV Systolic Heart Failure Atrial Fibrillation COPD Hyponatremia Atelectasis improving - HD per renal - s/p antibiotic course - O2 to keep SpO2 >90% - aspiration precautions - inhaled bronchodilators with mucolytics - PO as tolerated - DVT/GI prophylaxis - rehab/PT - OOB to chair if possible
[2016-07-10] MEDS ORDERED: INSULIN (NOVOLOG) ASPART 100 UNITS/ML 10ML VIAL ONE (16:57)
--- NOTE | 2016-07-10 19:30 | PN ---
Progress Note, Physician Chief Complaint: ASLEEP 02 MASK ON/BIPAP SEVERELY DISTRESSED - Current Medication List Current Medications: Active Medications Acetylcysteine (Mucomyst 20 Oral / Inh Use Only*) 800 mg NEB QIDR [facility] Last Admin: 07/10/16 17:44 Dose: 800 mg Albumin Human (Albumin Human 25%) 12.5 gm IVPB Q30M [facility] Albuterol Sulfate (Ventolin 0.083% Nebulizer Soln -) 1 amp NEB QIDR [facility] Last Admin: 07/10/16 17:45 Dose: 1 amp Amino Acids (Prosource No Carb Liquid Pkt) 30 ml PO BID@0800,1730 [facility] Last Admin: 07/10/16 17:10 Dose: 30 ml Ascorbic Acid (Vitamin C -) 250 mg PO DAILY [facility] Last Admin: 07/10/16 11:07 Dose: Not Given Bacitracin (Bacitracin -) 1 applic TP BID [facility] Last Admin: 07/10/16 10:11 Dose: 1 applic Brimonidine Tartrate (Alphagan 0.2% -) 1 drop OU BID [facility] Last Admin: 07/10/16 10:10 Dose: 1 drop Collagenase (Santyl -) 1 applic TP BID [facility] Last Admin: 07/10/16 10:11 Dose: 1 applic Epoetin Wilson (Epogen -) 7,000 units IVPUSH ONCE ONE Stop: 07/11/16 13:15 Heparin Sodium (Porcine) (Heparin -) 1,000 unit IVPUSH ONCE ONE Stop: 07/11/16 13:15 Heparin Sodium (Porcine) (Heparin -) 5,000 unit SQ TID [facility] Insulin Aspart (Novolog Vial Sliding Scale -) 1 vial SQ ACHS [facility] PRN Reason: Protocol Last Admin: 07/10/16 17:04 Dose: 4 units Levothyroxine Sodium (Synthroid -) 50 mcg PO DAILY@0700 [facility] Last Admin: 07/10/16 07:32 Dose: 50 mcg Multivit/Ca Carb/B Cmplx/FA/Prenat (Nephro-Mor -) 1 tablet PO DAILY [facility] Last Admin: 07/10/16 11:28 Dose: 1 tablet Multivitamins/Minerals/Vitamin C (Tab-A-Vit -) 1 tab PO DAILY [facility] Last Admin: 07/10/16 10:10 Dose: 1 tab Pantoprazole Sodium (Protonix -) 40 mg PO DAILY [facility] Last Admin: 07/10/16 10:10 Dose: 40 mg Sevelamer Carbonate (Renvela Powder Packet -) 0.8 gm PO TIDCM [facility] Last Admin: 07/10/16 17:11 Dose: 0.8 gm Silver Sulfadiazine (Silvadene -) 1 applic TP BID [facility] Last Admin: 07/10/16 10:10 Dose: 1 applic Zinc Sulfate (Orazinc -) 220 mg PO DAILY [facility] Last Admin: 07/10/16 11:28 Dose: 220 mg - Objective Vital Signs: Vital Signs Temperature 98.4 F 07/10/16 14:00 Pulse Rate 80 07/10/16 14:00 Respiratory Rate 18 07/10/16 14:00 Blood Pressure 92/56 07/10/16 14:00 O2 Sat by Pulse Oximetry (%) 92 L 07/10/16 09:00 Constitutional: Yes: Severe Distress Eyes: Yes: Other HENT: Yes: Other Neck: Yes: Other Cardiovascular: Yes: Pulse Irregular Respiratory: Yes: On BiPap Gastrointestinal: Yes: WNL Genitourinary: Yes: Incontinence Musculoskeletal: Yes: Other Extremities: Yes: Other Peripheral Pulses WNL: No Integumentary: Yes: Pressure Ulcer, Skin Tear Wound/Incision: Yes: Dressing Dry and Intact (MULYIPLE ULCERS ON LEGS B/L WITH DRESSING) ...Motor Strength: LLE, RLE Psychiatric: Yes: Other Labs: CBC, BMP 07/08/16 07:45 07/09/16 05:35 INR, PTT INR 1.85 (0.82-1.09) H 06/11/16 05:15 Fibrinogen 405.0 mg/dL (238-498) 06/10/16 04:45 Problem List - Problems (1) CKD (chronic kidney disease) Code(s): N18.9 - CHRONIC KIDNEY DISEASE, UNSPECIFIED (2) Hyponatremia Code(s): E87.1 - HYPO-OSMOLALITY AND HYPONATREMIA (3) Hypotension Code(s): I95.9 - HYPOTENSION, UNSPECIFIED Qualifiers: Qualified Code(s): I95.89 - Other hypotension (4) Lung consolidation Code(s): J18.1 - LOBAR PNEUMONIA, UNSPECIFIED ORGANISM (5) Anemia Code(s): D64.9 - ANEMIA, UNSPECIFIED Qualifiers: Qualified Code(s): N18.9 - Chronic kidney disease, unspecified; D63.1 - Anemia in chronic kidney disease (6) Atrial flutter Code(s): I48.92 - UNSPECIFIED ATRIAL FLUTTER (7) Bacteremia Code(s): R78.81 - BACTEREMIA (8) COPD (chronic obstructive pulmonary disease) Code(s): J44.9 - CHRONIC OBSTRUCTIVE PULMONARY DISEASE, UNSPECIFIED (9) DMII (diabetes mellitus, type 2) Code(s): E11.9 - TYPE 2 DIABETES MELLITUS WITHOUT COMPLICATIONS (10) Dyspnea Code(s): R06.00 - DYSPNEA, UNSPECIFIED Qualifiers: Qualified Code(s): R06.02 - Shortness of breath (11) Pressure ulcer of lower extremity, stage 1 Code(s): L89.891 - PRESSURE ULCER OF OTHER SITE, STAGE 1 (12) Sepsis Code(s): A41.9 - SEPSIS, UNSPECIFIED ORGANISM Qualifiers: Qualified Code(s): A41.9 - Sepsis, unspecified organism (13) Weakness of both lower limbs Code(s): M62.81 - MUSCLE WEAKNESS (GENERALIZED) (14) Wound of left shoulder Code(s): S41.002A - UNSPECIFIED OPEN WOUND OF LEFT SHOULDER, INITIAL ENCOUNTER Qualifiers: Qualified Code(s): S41.002D - Unspecified open wound of left shoulder, subsequent encounter (15) Acute respiratory distress Code(s): R06.00 - DYSPNEA, UNSPECIFIED Assessment/Plan SEVERELY MEDICALLY ILL ELDERLY MAN WHO HAS STATED HE DOES NOT WANT TO BE ON LIFE SUPPORT, NOR DOES HE WANT TO LIVE A LIFE THAT HAS POOR QUALITY WHERE HE CAN NO LONGER WALK AND STAY INDEPENDENT. I AM WAITING FOR HIS NIECE TO DECIDE ON HOSPICE/COMFORT CARE HOWEVER SHE WAS BUSY TODAY AND SAID SHE WOULD BE IN TOMORROW?? CONTINUE FULL CARE FOR NOW HD PER RENAL 02 SUPPORT WOUND CARE
[2016-07-11] MEDS: ACETYLCYSTEINE 20% 200MG/ML 4 ML VIAL *FOR ORAL / INH USE ONLY NEB SCH ×4 (06:20→23:20)
[2016-07-11] MEDS: ALBUTEROL SO4 0.083% IH SOL 2.5 MG/3 ML VIAL.NEB. NEB SCH ×4 (06:20→23:20)
[2016-07-11] MEDS ORDERED: DEXTROSE 50%-WATER 50 ML VIAL IVPUSH ONE (06:44)
[2016-07-11] MEDS ORDERED: DEXTROSE 50%-WATER 50 ML DISP.SYRIN ONE (06:50)
[2016-07-11] MEDS: INSULIN SLIDING SCALE (NOVOLOG) 1 VIAL SQ SCH ×4 (06:52→21:57)
[2016-07-11] MEDS: HEPARIN NA (PORCINE) 5,000 UNITS/ML 1ML VIAL SQ SCH ×3 (06:54→21:57)
[2016-07-11] MEDS: LEVOTHYROXINE NA 50 MCG TABLET (FP) PO SCH (06:54)
[2016-07-11] MEDS ORDERED: HEPARIN NA (PORCINE) 5,000 UNITS/ML 1ML VIAL IVPUSH ONE ×2 (09:30→13:14)
[2016-07-11] MEDS: ALBUMIN HUMAN 25% 12.5 GM/50 ML VIAL IVPB SCH ×4 (09:30→12:00)
[2016-07-11] MEDS ORDERED: EPOETIN ALFA 3,000 UNIT, EPOETIN ALFA 4,000 UNIT IVPUSH ONE (10:00)
[2016-07-11 10:06] LABS: CALCIUM 8.6 mg/dL (8.5-10.1); COCKROFT - GAULT 18.96; CREATININE 4.7 mg/dL (0.7-1.3)
[2016-07-11 10:32] LABS: MCH 27.8 pg (25.7-33.7); MCHC 30.3 g/dl (32.0-35.9); MEAN CELL VOLUME 91.8 fl (80-96); MEAN PLT VOLUME 10.8 fl (7.5-11.1); PLATELET COUNT 154 K/MM3 (134-434); RDW 19.8 % (11.9-15.9); WHITE BLOOD COUNT 11.5 K/mm3 (4.0-10.0)
--- NOTE | 2016-07-11 10:44 | PN ---
Progress Note, Physician Chief Complaint: PATIENT HAVING DIALYSIS MOUNTER SOUSAPHONES DISCUSSED WITH PATIENTS NIECE ILENE ABOUT [facility]. ILENE WANTS DIALYSIS TO CONTINUE, SHE WANTS TO KEEP HER UNCLE AROUND LONG HE CAN LIVE EVEN IF HIS QUALITY OF LIFE IS POOR. I WILL ALSO DISCUSS WITH HIS BROTHER MARCIO ABOUT THIS BECAUSE THE PATIENT HAS STATED IN THE PAST HE DID NOT WANT TO LIVE IF HE CAN'T BE INDEPENDENT WITH DAILY ACTIVITIES SUCH EATING AND BATHING. - Current Medication List Current Medications: Active Medications Acetylcysteine (Mucomyst 20 Oral / Inh Use Only*) 800 mg NEB QIDR [facility] Last Admin: 07/11/16 06:20 Dose: 800 mg Albumin Human (Albumin Human 25%) 12.5 gm IVPB Q30M [facility] Stop: 07/11/16 11:01 Last Admin: 07/11/16 09:30 Dose: 12.5 gm Albuterol Sulfate (Ventolin 0.083% Nebulizer Soln -) 1 amp NEB QIDR [facility] Last Admin: 07/11/16 06:20 Dose: 1 amp Amino Acids (Prosource No Carb Liquid Pkt) 30 ml PO BID@0800,1730 [facility] Last Admin: 07/10/16 17:10 Dose: 30 ml Ascorbic Acid (Vitamin C -) 250 mg PO DAILY [facility] Last Admin: 07/10/16 11:07 Dose: Not Given Bacitracin (Bacitracin -) 1 applic TP BID [facility] Last Admin: 07/10/16 21:19 Dose: 1 applic Brimonidine Tartrate (Alphagan 0.2% -) 1 drop OU BID [facility] Last Admin: 07/10/16 21:17 Dose: 1 drop Collagenase (Santyl -) 1 applic TP BID [facility] Last Admin: 07/10/16 21:19 Dose: 1 applic Heparin Sodium (Porcine) (Heparin -) 5,000 unit SQ TID [facility] Last Admin: 07/11/16 06:54 Dose: 5,000 unit Insulin Aspart (Novolog Vial Sliding Scale -) 1 vial SQ ACHS [facility] PRN Reason: Protocol Last Admin: 07/11/16 06:52 Dose: Not Given Levothyroxine Sodium (Synthroid -) 50 mcg PO DAILY@0700 [facility] Last Admin: 07/11/16 06:54 Dose: 50 mcg Multivit/Ca Carb/B Cmplx/FA/Prenat (Nephro-Mor -) 1 tablet PO DAILY [facility] Last Admin: 07/10/16 11:28 Dose: 1 tablet Multivitamins/Minerals/Vitamin C (Tab-A-Vit -) 1 tab PO DAILY [facility] Last Admin: 07/10/16 10:10 Dose: 1 tab Pantoprazole Sodium (Protonix -) 40 mg PO DAILY [facility] Last Admin: 07/10/16 10:10 Dose: 40 mg Sevelamer Carbonate (Renvela Powder Packet -) 0.8 gm PO TIDCM [facility] Last Admin: 07/10/16 17:11 Dose: 0.8 gm Silver Sulfadiazine (Silvadene -) 1 applic TP BID [facility] Last Admin: 07/10/16 21:18 Dose: 1 applic Zinc Sulfate (Orazinc -) 220 mg PO DAILY [facility] Last Admin: 07/10/16 11:28 Dose: 220 mg - Objective Vital Signs: Vital Signs Temperature 97.6 F 07/11/16 06:00 Pulse Rate 115 H 07/11/16 06:00 Respiratory Rate 18 07/11/16 06:00 Blood Pressure 77/57 07/11/16 06:00 O2 Sat by Pulse Oximetry (%) 92 L 07/10/16 09:00 Constitutional: Yes: Severe Distress Eyes: Yes: WNL HENT: Yes: WNL Neck: Yes: WNL Cardiovascular: Yes: Pulse Irregular Respiratory: Yes: On Venti-Mask, SOB Gastrointestinal: Yes: WNL Genitourinary: Yes: Other Musculoskeletal: Yes: Muscle Weakness Extremities: Yes: Deformity, Other Edema: No Peripheral Pulses WNL: Yes Integumentary: Yes: Pressure Ulcer, Skin Tear, Venous Stasis Changes Wound/Incision: Yes: Dressing Dry and Intact, Excoriated, Unapproximated Neurological: Yes: Confusion, Loss of Sensation, Pre-Existing Deficit, Unsteady Gait, Weakness ...Motor Strength: LUE, LLE, RUE, RLE Psychiatric: Yes: Other Labs: CBC, BMP 07/11/16 09:15 INR, PTT INR 1.85 (0.82-1.09) H 06/11/16 05:15 Fibrinogen 405.0 mg/dL (238-498) 06/10/16 04:45 Problem List - Problems (1) CKD (chronic kidney disease) Code(s): N18.9 - CHRONIC KIDNEY DISEASE, UNSPECIFIED (2) Hyponatremia Code(s): E87.1 - HYPO-OSMOLALITY AND HYPONATREMIA (3) Hypotension Code(s): I95.9 - HYPOTENSION, UNSPECIFIED Qualifiers: Qualified Code(s): I95.89 - Other hypotension (4) Lung consolidation Code(s): J18.1 - LOBAR PNEUMONIA, UNSPECIFIED ORGANISM (5) Anemia Code(s): D64.9 - ANEMIA, UNSPECIFIED Qualifiers: Qualified Code(s): N18.9 - Chronic kidney disease, unspecified; D63.1 - Anemia in chronic kidney disease (6) Atrial flutter Code(s): I48.92 - UNSPECIFIED ATRIAL FLUTTER (7) Bacteremia Code(s): R78.81 - BACTEREMIA (8) COPD (chronic obstructive pulmonary disease) Code(s): J44.9 - CHRONIC OBSTRUCTIVE PULMONARY DISEASE, UNSPECIFIED (9) DMII (diabetes mellitus, type 2) Code(s): E11.9 - TYPE 2 DIABETES MELLITUS WITHOUT COMPLICATIONS (10) Dyspnea Code(s): R06.00 - DYSPNEA, UNSPECIFIED Qualifiers: Qualified Code(s): R06.02 - Shortness of breath (11) Pressure ulcer of lower extremity, stage 1 Code(s): L89.891 - PRESSURE ULCER OF OTHER SITE, STAGE 1 (12) Sepsis Code(s): A41.9 - SEPSIS, UNSPECIFIED ORGANISM Qualifiers: Qualified Code(s): A41.9 - Sepsis, unspecified organism (13) Weakness of both lower limbs Code(s): M62.81 - MUSCLE WEAKNESS (GENERALIZED) (14) Wound of left shoulder Code(s): S41.002A - UNSPECIFIED OPEN WOUND OF LEFT SHOULDER, INITIAL ENCOUNTER Qualifiers: Qualified Code(s): S41.002D - Unspecified open wound of left shoulder, subsequent encounter (15) Acute respiratory distress Code(s): R06.00 - DYSPNEA, UNSPECIFIED Assessment/Plan HD TODAY WOUND CARE [facility] FOR REHAB/PT AND WOUND CARE [facility] CONSULT CALLED WITH CATHIE HENSON
--- NOTE | 2016-07-11 12:11 | PN ---
Progress Note, Physician History of Present Illness: PULMONARY ALERT,ON DIALYSIS,-RESP DISTRESS - Current Medication List Current Medications: Active Medications Acetylcysteine (Mucomyst 20 Oral / Inh Use Only*) 800 mg NEB QIDR [facility] Last Admin: 07/11/16 06:20 Dose: 800 mg Albuterol Sulfate (Ventolin 0.083% Nebulizer Soln -) 1 amp NEB QIDR [facility] Last Admin: 07/11/16 06:20 Dose: 1 amp Amino Acids (Prosource No Carb Liquid Pkt) 30 ml PO BID@0800,1730 [facility] Last Admin: 07/10/16 17:10 Dose: 30 ml Ascorbic Acid (Vitamin C -) 250 mg PO DAILY [facility] Last Admin: 07/10/16 11:07 Dose: Not Given Bacitracin (Bacitracin -) 1 applic TP BID [facility] Last Admin: 07/10/16 21:19 Dose: 1 applic Brimonidine Tartrate (Alphagan 0.2% -) 1 drop OU BID [facility] Last Admin: 07/10/16 21:17 Dose: 1 drop Collagenase (Santyl -) 1 applic TP BID [facility] Last Admin: 07/10/16 21:19 Dose: 1 applic Heparin Sodium (Porcine) (Heparin -) 5,000 unit SQ TID [facility] Last Admin: 07/11/16 06:54 Dose: 5,000 unit Insulin Aspart (Novolog Vial Sliding Scale -) 1 vial SQ ACHS [facility] PRN Reason: Protocol Last Admin: 07/11/16 06:52 Dose: Not Given Levothyroxine Sodium (Synthroid -) 50 mcg PO DAILY@0700 [facility] Last Admin: 07/11/16 06:54 Dose: 50 mcg Multivit/Ca Carb/B Cmplx/FA/Prenat (Nephro-Mor -) 1 tablet PO DAILY [facility] Last Admin: 07/10/16 11:28 Dose: 1 tablet Multivitamins/Minerals/Vitamin C (Tab-A-Vit -) 1 tab PO DAILY [facility] Last Admin: 07/10/16 10:10 Dose: 1 tab Pantoprazole Sodium (Protonix -) 40 mg PO DAILY [facility] Last Admin: 07/10/16 10:10 Dose: 40 mg Sevelamer Carbonate (Renvela Powder Packet -) 0.8 gm PO TIDCM [facility] Last Admin: 07/10/16 17:11 Dose: 0.8 gm Silver Sulfadiazine (Silvadene -) 1 applic TP BID [facility] Last Admin: 07/10/16 21:18 Dose: 1 applic Zinc Sulfate (Orazinc -) 220 mg PO DAILY [facility] Last Admin: 07/10/16 11:28 Dose: 220 mg - Objective Vital Signs: Vital Signs Temperature 97.6 F 07/11/16 06:00 Pulse Rate 60 07/11/16 11:10 Respiratory Rate 18 07/11/16 11:10 Blood Pressure 115/80 07/11/16 11:10 O2 Sat by Pulse Oximetry (%) 92 L 07/10/16 09:00 Constitutional: Yes: Well Nourished, Calm Eyes: Yes: WNL HENT: Yes: WNL Neck: Yes: WNL Cardiovascular: Yes: Pulse Irregular, S1, S2 Respiratory: Yes: Diminished Gastrointestinal: Yes: Normal Bowel Sounds, Soft Extremities: Yes: WNL, Other (WRAPPED) Edema: No Labs: CBC, BMP 07/11/16 09:15 07/11/16 09:15 INR, PTT INR 1.85 (0.82-1.09) H 06/11/16 05:15 Fibrinogen 405.0 mg/dL (238-498) 06/10/16 04:45 Assessment/Plan ASSESSMENT AND PLAN: s/p Acute Respiratory Failure Back/Shoulder Cellulitis/Abscess Septic vs Cardiogenic Shock resolving Acute on Chronic Renal Failure requiring HD Metabolic Acidosis 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
[2016-07-11] MEDS: SEVELAMER CARBONATE 0.8 GM POWDER PACKET PO SCH ×3 (12:14→18:44)
[2016-07-11] MEDS: AMINO ACIDS/PROTEIN HYDROLYS 30 ML LIQUID.PKT PO SCH ×2 (12:14→18:38)
[2016-07-11] MEDS ORDERED: PT OWN MED DRAWER 7, Y5N ONE ×2 (12:26→12:33)
[2016-07-11] MEDS ORDERED: EPOETIN ALFA 2,000 UNITS/1 ML VIAL IVPUSH ONE ×2 (13:14)
[2016-07-11] MEDS: BRIMONIDINE TARTRATE 0.2% OPHTHALMIC 5 ML BOTTLE OU SCH ×2 (13:37→21:57)
[2016-07-11] MEDS: BACITRACIN 30 GM TUBE TOPICAL OINTMENT TP SCH ×2 (13:39→21:57)
[2016-07-11] MEDS: PANTOPRAZOLE 40 MG TABLET (FP) PO SCH (13:39)
[2016-07-11] MEDS: ZINC SULFATE 220 MG CAPSULE (FP) PO SCH (13:39)
[2016-07-11] MEDS: VITAMIN B COMP W-C 1 EA TABLET PO SCH (13:39)
[2016-07-11] MEDS: COLLAGENASE CLOSTRIDIUM HIST. 30 GRAMS TUBE TP SCH ×2 (13:39→21:58)
[2016-07-11] MEDS: ASCORBIC ACID 250 MG TABLET (FP) PO SCH (13:40)
[2016-07-11] MEDS: SILVER SULFADIAZINE 1% TOP CREAM 50 GM JAR TP SCH ×2 (13:40→21:58)
[2016-07-11] MEDS: MULTIVITAMINS (DAILY MVI) TABLET (FP) PO SCH (13:40)
--- NOTE | 2016-07-11 14:58 | PN ---
Progress Note, Physician History of Present Illness: Pt seen and examined at bedside. He tolerated HD today. - Current Medication List Current Medications: Active Medications Acetylcysteine (Mucomyst 20 Oral / Inh Use Only*) 800 mg NEB QIDR [facility] Last Admin: 07/11/16 11:30 Dose: 800 mg Albuterol Sulfate (Ventolin 0.083% Nebulizer Soln -) 1 amp NEB QIDR [facility] Last Admin: 07/11/16 11:30 Dose: 1 amp Amino Acids (Prosource No Carb Liquid Pkt) 30 ml PO BID@0800,1730 [facility] Last Admin: 07/11/16 12:14 Dose: Not Given Ascorbic Acid (Vitamin C -) 250 mg PO DAILY [facility] Last Admin: 07/11/16 13:40 Dose: 250 mg Bacitracin (Bacitracin -) 1 applic TP BID [facility] Last Admin: 07/11/16 13:39 Dose: 1 applic Brimonidine Tartrate (Alphagan 0.2% -) 1 drop OU BID [facility] Last Admin: 07/11/16 13:37 Dose: 1 drop Collagenase (Santyl -) 1 applic TP BID [facility] Last Admin: 07/11/16 13:39 Dose: 1 applic Heparin Sodium (Porcine) (Heparin -) 5,000 unit SQ TID [facility] Last Admin: 07/11/16 14:24 Dose: 5,000 unit Insulin Aspart (Novolog Vial Sliding Scale -) 1 vial SQ ACHS [facility] PRN Reason: Protocol Last Admin: 07/11/16 13:36 Dose: Not Given Levothyroxine Sodium (Synthroid -) 50 mcg PO DAILY@0700 [facility] Last Admin: 07/11/16 06:54 Dose: 50 mcg Multivit/Ca Carb/B Cmplx/FA/Prenat (Nephro-Mor -) 1 tablet PO DAILY [facility] Last Admin: 07/11/16 13:39 Dose: 1 tablet Multivitamins/Minerals/Vitamin C (Tab-A-Vit -) 1 tab PO DAILY [facility] Last Admin: 07/11/16 13:40 Dose: 1 tab Pantoprazole Sodium (Protonix -) 40 mg PO DAILY [facility] Last Admin: 07/11/16 13:39 Dose: 40 mg Sevelamer Carbonate (Renvela Powder Packet -) 0.8 gm PO TIDCM [facility] Last Admin: 07/11/16 13:40 Dose: 0.8 gm Silver Sulfadiazine (Silvadene -) 1 applic TP BID [facility] Last Admin: 07/11/16 13:40 Dose: 1 applic Zinc Sulfate (Orazinc -) 220 mg PO DAILY [facility] Last Admin: 07/11/16 13:39 Dose: 220 mg - Objective Vital Signs: Vital Signs Temperature 98.3 F 07/11/16 14:00 Pulse Rate 126 H 07/11/16 14:00 Respiratory Rate 18 07/11/16 14:00 Blood Pressure 87/56 07/11/16 14:00 O2 Sat by Pulse Oximetry (%) 92 L 07/10/16 09:00 Constitutional: Yes: Calm Eyes: Yes: Conjunctiva Clear HENT: Yes: Atraumatic Cardiovascular: Yes: S1, S2 Respiratory: Yes: CTA Bilaterally Gastrointestinal: Yes: Soft Genitourinary: Yes: Incontinence Musculoskeletal: Yes: Muscle Weakness Edema: Yes Edema: LLE: 1+, RLE: 1+ Neurological: Yes: Confusion Labs: CBC, BMP 07/11/16 09:15 07/11/16 09:15 INR, PTT INR 1.85 (0.82-1.09) H 06/11/16 05:15 Fibrinogen 405.0 mg/dL (238-498) 06/10/16 04:45 Problem List - Problems (1) Acute hyperkalemia Code(s): E87.5 - HYPERKALEMIA (2) Hyponatremia Code(s): E87.1 - HYPO-OSMOLALITY AND HYPONATREMIA (3) Hypotension Code(s): I95.9 - HYPOTENSION, UNSPECIFIED Qualifiers: Qualified Code(s): I95.89 - Other hypotension (4) Acute on chronic renal failure Code(s): N17.9 - ACUTE KIDNEY FAILURE, UNSPECIFIED N18.9 - CHRONIC KIDNEY DISEASE, UNSPECIFIED (5) Anemia Code(s): D64.9 - ANEMIA, UNSPECIFIED Qualifiers: Qualified Code(s): N18.9 - Chronic kidney disease, unspecified; D63.1 - Anemia in chronic kidney disease (6) COPD (chronic obstructive pulmonary disease) Code(s): J44.9 - CHRONIC OBSTRUCTIVE PULMONARY DISEASE, UNSPECIFIED (7) Congestive heart failure (CHF) Code(s): I50.9 - HEART FAILURE, UNSPECIFIED Qualifiers: Qualified Code(s): I50.22 - Chronic systolic (congestive) heart failure (8) DMII (diabetes mellitus, type 2) Code(s): E11.9 - TYPE 2 DIABETES MELLITUS WITHOUT COMPLICATIONS (9) CKD (chronic kidney disease) Code(s): N18.9 - CHRONIC KIDNEY DISEASE, UNSPECIFIED Assessment/Plan Current Medications Generic Name Dose Route Start Last Admin Trade Name Katlyn PRN Reason Stop Dose Admin Acetylcysteine 800 mg 07/03/16 18:00 07/11/16 11:30 Mucomyst 20 Oral / Inh Use Only* NEB 800 mg QIDR [facility] Administration Albuterol Sulfate 1 amp 07/03/16 18:00 07/11/16 11:30 Ventolin 0.083% Nebulizer Soln - NEB 1 amp QIDR [facility] Administration Amino Acids 30 ml 07/03/16 17:30 07/11/16 12:14 Prosource No Carb Liquid Pkt PO Not Given BID@0800,1730 [facility] Ascorbic Acid 250 mg 07/09/16 10:00 07/11/16 13:40 Vitamin C - PO 250 mg DAILY [facility] Administration Bacitracin 1 applic 07/03/16 22:00 07/11/16 13:39 Bacitracin - TP 1 applic BID [facility] Administration Brimonidine Tartrate 1 drop 07/03/16 22:00 07/11/16 13:37 Alphagan 0.2% - OU 1 drop BID [facility] Administration Collagenase 1 applic 07/03/16 22:00 07/11/16 13:39 Santyl - TP 1 applic BID [facility] Administration Heparin Sodium (Porcine) 5,000 unit 07/10/16 22:00 07/11/16 14:24 Heparin - SQ 5,000 unit TID [facility] Administration Insulin Aspart 1 vial 07/03/16 16:30 07/11/16 13:36 Novolog Vial Sliding Scale - SQ Not Given ACHS [facility] Protocol Levothyroxine Sodium 50 mcg 07/05/16 07:00 07/11/16 06:54 Synthroid - PO 50 mcg DAILY@0700 [facility] Administration Multivit/Ca Carb/B Cmplx/FA/Prenat 1 tablet 07/09/16 10:00 07/11/16 13:39 Nephro-Mor - PO 1 tablet DAILY [facility] Administration Multivitamins/Minerals/Vitamin C 1 tab 07/09/16 10:00 07/11/16 13:40 Tab-A-Vit - PO 1 tab DAILY [facility] Administration Pantoprazole Sodium 40 mg 07/08/16 10:00 07/11/16 13:39 Protonix - PO 40 mg DAILY [facility] Administration Sevelamer Carbonate 0.8 gm 07/03/16 17:30 07/11/16 13:40 Renvela Powder Packet - PO 0.8 gm TIDCM [facility] Administration Silver Sulfadiazine 1 applic 07/03/16 22:00 07/11/16 13:40 Silvadene - TP 1 applic BID [facility] Administration Zinc Sulfate 220 mg 07/09/16 10:00 07/11/16 13:39 Orazinc - PO 220 mg DAILY [facility] Administration Impression 1. 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 sepsis with shock 3. cellulitis/abscess of back 4. CHF acute 5. hypothyroidism 6. hyperlipidemia 7. COPD 8. htn 9. a-fib 10. hyponatremia - isoosmolar 11. acute respiratory failure requiring intubation Plan - pt tolerated HD - next session is on Thursday - cont current management - prognosis poor - cont with BiPap as needed - wound care to legs - will continue to follow Dr Martinez
--- NOTE | 2016-07-11 17:48 | PN ---
Progress Note (short form) - Note Progress Note: Vascular surgery Pt seen and examined. Bilateral lower ext ulcers with eschars. Will need debridement. Will do thursday. Carlyle Batres DO
[2016-07-12] MEDS: ACETYLCYSTEINE 20% 200MG/ML 4 ML VIAL *FOR ORAL / INH USE ONLY NEB SCH ×4 (06:35→23:29)
[2016-07-12] MEDS: HEPARIN NA (PORCINE) 5,000 UNITS/ML 1ML VIAL SQ SCH ×3 (06:39→22:06)
[2016-07-12] MEDS: INSULIN SLIDING SCALE (NOVOLOG) 1 VIAL SQ SCH ×4 (06:39→22:06)
[2016-07-12] MEDS: LEVOTHYROXINE NA 50 MCG TABLET (FP) PO SCH (06:40)
[2016-07-12] MEDS: ALBUTEROL SO4 0.083% IH SOL 2.5 MG/3 ML VIAL.NEB. NEB SCH ×4 (07:03→23:29)
[2016-07-12 07:30] LABS: MCH 27.5 pg (25.7-33.7); MCHC 30.6 g/dl (32.0-35.9); PLATELET COUNT 147 K/MM3 (134-434); RDW 19.8 % (11.9-15.9); WHITE BLOOD COUNT 11.2 K/mm3 (4.0-10.0)
[2016-07-12 07:31] LABS: MEAN PLT VOLUME 10.5 fl (7.5-11.1)
[2016-07-12 08:03] LABS: ALBUMIN 2.5 g/dl (3.4-5.0); CALCIUM 8.6 mg/dL (8.5-10.1); COCKROFT - GAULT 25.47; CREATININE 3.5 mg/dL (0.7-1.3)
[2016-07-12 08:05] LABS: BILIRUBIN,TOTAL 1.3 mg/dL (0.2-1.0); TOT PROT 6.3 g/dl (6.4-8.2)
[2016-07-12] MEDS ORDERED: PT OWN MED DRAWER 7, Y5N ONE ×6 (08:49→19:29)
[2016-07-12] MEDS: PANTOPRAZOLE 40 MG TABLET (FP) PO SCH (09:02)
[2016-07-12] MEDS: BRIMONIDINE TARTRATE 0.2% OPHTHALMIC 5 ML BOTTLE OU SCH ×2 (09:02→22:06)
[2016-07-12] MEDS: ASCORBIC ACID 250 MG TABLET (FP) PO SCH (09:02)
[2016-07-12] MEDS: MULTIVITAMINS (DAILY MVI) TABLET (FP) PO SCH (09:02)
[2016-07-12] MEDS: AMINO ACIDS/PROTEIN HYDROLYS 30 ML LIQUID.PKT PO SCH ×2 (09:02→18:15)
[2016-07-12] MEDS: ZINC SULFATE 220 MG CAPSULE (FP) PO SCH (09:02)
[2016-07-12] MEDS: SEVELAMER CARBONATE 0.8 GM POWDER PACKET PO SCH ×3 (09:02→18:15)
[2016-07-12] MEDS: VITAMIN B COMP W-C 1 EA TABLET PO SCH (09:22)
--- NOTE | 2016-07-12 13:09 | PN ---
Progress Note (short form) - Note Progress Note: Awake and responsive. Remains on 50% VM O2. Some cough. No CP. Intake & Output 07/09/16 07/10/16 07/11/16 07/12/16 23:59 23:59 23:59 23:59 Intake Total 250 190 200 200 Balance 250 190 200 200 Last Vital Signs Temp Pulse Resp BP Pulse Ox 98 F 110 H 22 98/53 100 07/12/16 09:23 07/12/16 09:23 07/12/16 09:23 07/12/16 09:23 07/11/16 21:17 Active Medications Acetylcysteine (Mucomyst 20 Oral / Inh Use Only*) 800 mg NEB QIDR [facility] Last Admin: 07/12/16 11:24 Dose: Not Given Albuterol Sulfate (Ventolin 0.083% Nebulizer Soln -) 1 amp NEB QIDR [facility] Last Admin: 07/12/16 11:24 Dose: Not Given Amino Acids (Prosource No Carb Liquid Pkt) 30 ml PO BID@0800,1730 [facility] Last Admin: 07/12/16 09:02 Dose: 30 ml Ascorbic Acid (Vitamin C -) 250 mg PO DAILY [facility] Last Admin: 07/12/16 09:02 Dose: 250 mg Bacitracin (Bacitracin -) 1 applic TP BID [facility] Last Admin: 07/11/16 21:57 Dose: 1 applic Brimonidine Tartrate (Alphagan 0.2% -) 1 drop OU BID [facility] Last Admin: 07/12/16 09:02 Dose: 1 drop Collagenase (Santyl -) 1 applic TP BID [facility] Last Admin: 07/11/16 21:58 Dose: 1 applic Heparin Sodium (Porcine) (Heparin -) 5,000 unit SQ TID [facility] Last Admin: 07/12/16 06:39 Dose: 5,000 unit Insulin Aspart (Novolog Vial Sliding Scale -) 1 vial SQ ACHS [facility] PRN Reason: Protocol Last Admin: 07/12/16 12:46 Dose: Not Given Levothyroxine Sodium (Synthroid -) 50 mcg PO DAILY@0700 [facility] Last Admin: 07/12/16 06:40 Dose: 50 mcg Multivit/Ca Carb/B Cmplx/FA/Prenat (Nephro-Mor -) 1 tablet PO DAILY [facility] Last Admin: 07/12/16 09:22 Dose: 1 tablet Multivitamins/Minerals/Vitamin C (Tab-A-Vit -) 1 tab PO DAILY [facility] Last Admin: 07/12/16 09:02 Dose: 1 tab Pantoprazole Sodium (Protonix -) 40 mg PO DAILY [facility] Last Admin: 07/12/16 09:02 Dose: 40 mg Sevelamer Carbonate (Renvela Powder Packet -) 0.8 gm PO TIDCM [facility] Last Admin: 07/12/16 09:02 Dose: 0.8 gm Silver Sulfadiazine (Silvadene -) 1 applic TP BID [facility] Last Admin: 07/11/16 21:58 Dose: 1 applic Zinc Sulfate (Orazinc -) 220 mg PO DAILY [facility] Last Admin: 07/12/16 09:02 Dose: 220 mg Gen: Awake and responsive, mildly tachypneic at rest Heart: RRR Lung: scattered rhonchi Abd: soft, nontender Ext: decreasing edema Laboratory Results - last 24 hr 07/11/16 07/11/16 07/11/16 13:32 18:42 21:37 WBC RBC Hgb Hct MCV MCHC RDW Plt Count MPV Sodium Potassium Chloride Carbon Dioxide Anion Gap BUN Creatinine Creat Clearance w eGFR POC Glucometer 135 128 110 Random Glucose Calcium Total Bilirubin AST ALT Alkaline Phosphatase Total Protein Albumin 07/12/16 07/12/16 07/12/16 06:00 06:00 06:37 WBC 11.2 H RBC 3.21 L Hgb 8.8 L Hct 28.9 L MCV 90.0 MCHC 30.6 L RDW 19.8 H Plt Count 147 MPV 10.5 Sodium 146 H Potassium 4.4 Chloride 103 Carbon Dioxide 30 Anion Gap 13 BUN 34 H D Creatinine 3.5 H D Creat Clearance w eGFR 17.11 POC Glucometer 151 Random Glucose 136 H D Calcium 8.6 Total Bilirubin 1.3 H AST 16 D ALT 17 D Alkaline Phosphatase 100 Total Protein 6.3 L Albumin 2.5 L D A/P s/p Acute Respiratory Failure Back/Shoulder Cellulitis/Abscess Septic vs Cardiogenic Shock Acute on Chronic Renal Failure Metabolic Acidosis 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
[2016-07-12] MEDS: SILVER SULFADIAZINE 1% TOP CREAM 50 GM JAR TP SCH ×2 (13:53→22:07)
[2016-07-12] MEDS: BACITRACIN 30 GM TUBE TOPICAL OINTMENT TP SCH ×2 (13:55→22:06)
[2016-07-12] MEDS: COLLAGENASE CLOSTRIDIUM HIST. 30 GRAMS TUBE TP SCH ×2 (13:55→22:06)
[2016-07-12] MEDS: NYSTATIN/TRIAMCINOLONE TOPICAL CREAM 15 GM TUBE TP SCH ×2 (17:41→22:06)
--- NOTE | 2016-07-12 17:42 | PN ---
Progress Note, Physician Chief Complaint: BEING CHANGED DRESSINGS SEEN AND EXAMINED - Current Medication List Current Medications: Active Medications Acetylcysteine (Mucomyst 20 Oral / Inh Use Only*) 800 mg NEB QIDR [facility] Last Admin: 07/12/16 11:24 Dose: Not Given Albuterol Sulfate (Ventolin 0.083% Nebulizer Soln -) 1 amp NEB QIDR [facility] Last Admin: 07/12/16 11:24 Dose: Not Given Amino Acids (Prosource No Carb Liquid Pkt) 30 ml PO BID@0800,1730 [facility] Last Admin: 07/12/16 09:02 Dose: 30 ml Ascorbic Acid (Vitamin C -) 250 mg PO DAILY [facility] Last Admin: 07/12/16 09:02 Dose: 250 mg Bacitracin (Bacitracin -) 1 applic TP BID [facility] Last Admin: 07/12/16 13:55 Dose: 1 applic Brimonidine Tartrate (Alphagan 0.2% -) 1 drop OU BID [facility] Last Admin: 07/12/16 09:02 Dose: 1 drop Collagenase (Santyl -) 1 applic TP BID [facility] Last Admin: 07/12/16 13:55 Dose: 1 applic Heparin Sodium (Porcine) (Heparin -) 5,000 unit SQ TID [facility] Last Admin: 07/12/16 14:44 Dose: 5,000 unit Insulin Aspart (Novolog Vial Sliding Scale -) 1 vial SQ ACHS [facility] PRN Reason: Protocol Last Admin: 07/12/16 12:46 Dose: Not Given Levothyroxine Sodium (Synthroid -) 50 mcg PO DAILY@0700 [facility] Last Admin: 07/12/16 06:40 Dose: 50 mcg Multivit/Ca Carb/B Cmplx/FA/Prenat (Nephro-Mor -) 1 tablet PO DAILY [facility] Last Admin: 07/12/16 09:22 Dose: 1 tablet Multivitamins/Minerals/Vitamin C (Tab-A-Vit -) 1 tab PO DAILY [facility] Last Admin: 07/12/16 09:02 Dose: 1 tab Nystatin/Triamcinolone Acetonide (Mycolog Ii Cream -) 10 applic TP BID [facility] Pantoprazole Sodium (Protonix -) 40 mg PO DAILY [facility] Last Admin: 07/12/16 09:02 Dose: 40 mg Sevelamer Carbonate (Renvela Powder Packet -) 0.8 gm PO TIDCM [facility] Last Admin: 04/29/17 13:53 Dose: 0.8 gm Silver Sulfadiazine (Silvadene -) 1 applic TP BID [facility] Last Admin: 07/12/16 13:53 Dose: 1 applic Zinc Sulfate (Orazinc -) 220 mg PO DAILY [facility] Last Admin: 07/12/16 09:02 Dose: 220 mg - Objective Vital Signs: Vital Signs Temperature 97.2 F L 07/12/16 17:15 Pulse Rate 123 H 07/12/16 17:15 Respiratory Rate 22 07/12/16 17:15 Blood Pressure 103/59 07/12/16 17:15 O2 Sat by Pulse Oximetry (%) 100 07/11/16 21:17 Constitutional: Yes: Mild Distress Eyes: Yes: WNL HENT: Yes: WNL Neck: Yes: WNL Cardiovascular: Yes: Pulse Irregular Respiratory: Yes: On Venti-Mask Gastrointestinal: Yes: WNL Genitourinary: Yes: Incontinence Musculoskeletal: Yes: Muscle Weakness Extremities: Yes: Deformity Edema: Yes Edema: LLE: Trace, RLE: Trace Peripheral Pulses WNL: Yes Integumentary: Yes: Pressure Ulcer, Rash Wound/Incision: Yes: Dressing Dry and Intact (SACRAL ULCER AND LEG ULCERS STAGE 3 AND 4), Excoriated, Unapproximated Neurological: Yes: Pre-Existing Deficit, Unsteady Gait ...Motor Strength: LLE, RLE Psychiatric: Yes: Other Labs: CBC, BMP 07/12/16 06:00 07/12/16 06:00 INR, PTT INR 1.85 (0.82-1.09) H 06/11/16 05:15 Fibrinogen 405.0 mg/dL (238-498) 06/10/16 04:45 Problem List - Problems (1) CKD (chronic kidney disease) Code(s): N18.9 - CHRONIC KIDNEY DISEASE, UNSPECIFIED (2) Hyponatremia Code(s): E87.1 - HYPO-OSMOLALITY AND HYPONATREMIA (3) Hypotension Code(s): I95.9 - HYPOTENSION, UNSPECIFIED Qualifiers: Qualified Code(s): I95.89 - Other hypotension (4) Lung consolidation Code(s): J18.1 - LOBAR PNEUMONIA, UNSPECIFIED ORGANISM (5) Anemia Code(s): D64.9 - ANEMIA, UNSPECIFIED Qualifiers: Qualified Code(s): N18.9 - Chronic kidney disease, unspecified; D63.1 - Anemia in chronic kidney disease (6) Atrial flutter Code(s): I48.92 - UNSPECIFIED ATRIAL FLUTTER (7) Bacteremia Code(s): R78.81 - BACTEREMIA (8) COPD (chronic obstructive pulmonary disease) Code(s): J44.9 - CHRONIC OBSTRUCTIVE PULMONARY DISEASE, UNSPECIFIED (9) DMII (diabetes mellitus, type 2) Code(s): E11.9 - TYPE 2 DIABETES MELLITUS WITHOUT COMPLICATIONS (10) Dyspnea Code(s): R06.00 - DYSPNEA, UNSPECIFIED Qualifiers: Qualified Code(s): R06.02 - Shortness of breath (11) Pressure ulcer of lower extremity, stage 1 Code(s): L89.891 - PRESSURE ULCER OF OTHER SITE, STAGE 1 (12) Sepsis Code(s): A41.9 - SEPSIS, UNSPECIFIED ORGANISM Qualifiers: Qualified Code(s): A41.9 - Sepsis, unspecified organism (13) Weakness of both lower limbs Code(s): M62.81 - MUSCLE WEAKNESS (GENERALIZED) (14) Wound of left shoulder Code(s): S41.002A - UNSPECIFIED OPEN WOUND OF LEFT SHOULDER, INITIAL ENCOUNTER Qualifiers: Qualified Code(s): S41.002D - Unspecified open wound of left shoulder, subsequent encounter (15) Acute respiratory distress Code(s): R06.00 - DYSPNEA, UNSPECIFIED Assessment/Plan WOUND CARE STAGE 3 AND 4 SACRAL ULCERS AND LEG B/L ULCERS SURGICAL DEBRIDEMENT THURSDAY WOUND CARE HD PER RENAL LT[facility] NEXT WEEK ETHICS AND PALLIATIVE F/U
[2016-07-12] MEDS ORDERED: INSULIN (NOVOLOG) ASPART 100 UNITS/ML 10ML VIAL ONE (17:47)
--- NOTE | 2016-07-12 17:58 | PN ---
Progress Note, Physician History of Present Illness: Pt seen and examined at bedside. He is more awake today than he was yesterday. - Current Medication List Current Medications: Active Medications Acetylcysteine (Mucomyst 20 Oral / Inh Use Only*) 800 mg NEB QIDR [facility] Last Admin: 07/12/16 17:49 Dose: 800 mg Albuterol Sulfate (Ventolin 0.083% Nebulizer Soln -) 1 amp NEB QIDR [facility] Last Admin: 07/12/16 17:49 Dose: 1 amp Amino Acids (Prosource No Carb Liquid Pkt) 30 ml PO BID@0800,1730 [facility] Last Admin: 07/12/16 09:02 Dose: 30 ml Ascorbic Acid (Vitamin C -) 250 mg PO DAILY [facility] Last Admin: 07/12/16 09:02 Dose: 250 mg Bacitracin (Bacitracin -) 1 applic TP BID [facility] Last Admin: 07/12/16 13:55 Dose: 1 applic Brimonidine Tartrate (Alphagan 0.2% -) 1 drop OU BID [facility] Last Admin: 07/12/16 09:02 Dose: 1 drop Collagenase (Santyl -) 1 applic TP BID [facility] Last Admin: 07/12/16 13:55 Dose: 1 applic Heparin Sodium (Porcine) (Heparin -) 5,000 unit SQ TID [facility] Last Admin: 07/12/16 14:44 Dose: 5,000 unit Insulin Aspart (Novolog Vial Sliding Scale -) 1 vial SQ ACHS [facility] PRN Reason: Protocol Last Admin: 07/12/16 17:43 Dose: 2 units Levothyroxine Sodium (Synthroid -) 50 mcg PO DAILY@0700 [facility] Last Admin: 07/12/16 06:40 Dose: 50 mcg Multivit/Ca Carb/B Cmplx/FA/Prenat (Nephro-Mor -) 1 tablet PO DAILY [facility] Last Admin: 07/12/16 09:22 Dose: 1 tablet Multivitamins/Minerals/Vitamin C (Tab-A-Vit -) 1 tab PO DAILY [facility] Last Admin: 07/12/16 09:02 Dose: 1 tab Nystatin/Triamcinolone Acetonide (Mycolog Ii Cream -) 10 applic TP BID [facility] Last Admin: 07/12/16 17:41 Dose: Not Given Pantoprazole Sodium (Protonix -) 40 mg PO DAILY [facility] Last Admin: 07/12/16 09:02 Dose: 40 mg Sevelamer Carbonate (Renvela Powder Packet -) 0.8 gm PO TIDCM [facility] Last Admin: 07/12/16 13:53 Dose: 0.8 gm Silver Sulfadiazine (Silvadene -) 1 applic TP BID [facility] Last Admin: 07/12/16 13:53 Dose: 1 applic Zinc Sulfate (Orazinc -) 220 mg PO DAILY [facility] Last Admin: 07/12/16 09:02 Dose: 220 mg - Objective Vital Signs: Vital Signs Temperature 97.2 F L 07/12/16 17:15 Pulse Rate 123 H 07/12/16 17:15 Respiratory Rate 22 07/12/16 17:15 Blood Pressure 103/59 07/12/16 17:15 O2 Sat by Pulse Oximetry (%) 98 07/12/16 17:48 Constitutional: Yes: Calm Eyes: Yes: Conjunctiva Clear HENT: Yes: Atraumatic Cardiovascular: Yes: S1, S2 Respiratory: Yes: Rales Gastrointestinal: Yes: Soft Genitourinary: Yes: Incontinence Musculoskeletal: Yes: Muscle Weakness Edema: Yes Neurological: Yes: Other (more awake, mental status is improved) Labs: CBC, BMP 07/12/16 06:00 07/12/16 06:00 INR, PTT INR 1.85 (0.82-1.09) H 06/11/16 05:15 Fibrinogen 405.0 mg/dL (238-498) 06/10/16 04:45 Problem List - Problems (1) Acute hyperkalemia Code(s): E87.5 - HYPERKALEMIA (2) Hyponatremia Code(s): E87.1 - HYPO-OSMOLALITY AND HYPONATREMIA (3) Hypotension Code(s): I95.9 - HYPOTENSION, UNSPECIFIED Qualifiers: Qualified Code(s): I95.89 - Other hypotension (4) Acute on chronic renal failure Code(s): N17.9 - ACUTE KIDNEY FAILURE, UNSPECIFIED N18.9 - CHRONIC KIDNEY DISEASE, UNSPECIFIED (5) Anemia Code(s): D64.9 - ANEMIA, UNSPECIFIED Qualifiers: Qualified Code(s): N18.9 - Chronic kidney disease, unspecified; D63.1 - Anemia in chronic kidney disease (6) COPD (chronic obstructive pulmonary disease) Code(s): J44.9 - CHRONIC OBSTRUCTIVE PULMONARY DISEASE, UNSPECIFIED (7) Congestive heart failure (CHF) Code(s): I50.9 - HEART FAILURE, UNSPECIFIED Qualifiers: Qualified Code(s): I50.22 - Chronic systolic (congestive) heart failure (8) DMII (diabetes mellitus, type 2) Code(s): E11.9 - TYPE 2 DIABETES MELLITUS WITHOUT COMPLICATIONS (9) CKD (chronic kidney disease) Code(s): N18.9 - CHRONIC KIDNEY DISEASE, UNSPECIFIED Assessment/Plan Current Medications Generic Name Dose Route Start Last Admin Trade Name Freq PRN Reason Stop Dose Admin Acetylcysteine 800 mg 07/03/16 18:00 07/12/16 17:49 Mucomyst 20 Oral / Inh Use Only* NEB 800 mg QIDR [facility] Administration Albuterol Sulfate 1 amp 07/03/16 18:00 07/12/16 17:49 Ventolin 0.083% Nebulizer Soln - NEB 1 amp QIDR [facility] Administration Amino Acids 30 ml 07/03/16 17:30 07/12/16 09:02 Prosource No Carb Liquid Pkt PO 30 ml BID@0800,1730 [facility] Administration Ascorbic Acid 250 mg 07/09/16 10:00 07/12/16 09:02 Vitamin C - PO 250 mg DAILY [facility] Administration Bacitracin 1 applic 07/03/16 22:00 07/12/16 13:55 Bacitracin - TP 1 applic BID [facility] Administration Brimonidine Tartrate 1 drop 07/03/16 22:00 07/12/16 09:02 Alphagan 0.2% - OU 1 drop BID [facility] Administration Collagenase 1 applic 07/03/16 22:00 07/12/16 13:55 Santyl - TP 1 applic BID [facility] Administration Heparin Sodium (Porcine) 5,000 unit 07/10/16 22:00 07/12/16 14:44 Heparin - SQ 5,000 unit TID [facility] Administration Insulin Aspart 1 vial 07/03/16 16:30 07/12/16 17:43 Novolog Vial Sliding Scale - SQ 2 units ACHS [facility] Administration Protocol Levothyroxine Sodium 50 mcg 07/05/16 07:00 07/12/16 06:40 Synthroid - PO 50 mcg DAILY@0700 [facility] Administration Multivit/Ca Carb/B Cmplx/FA/Prenat 1 tablet 07/09/16 10:00 07/12/16 09:22 Nephro-Mor - PO 1 tablet DAILY [facility] Administration Multivitamins/Minerals/Vitamin C 1 tab 07/09/16 10:00 07/12/16 09:02 Tab-A-Vit - PO 1 tab DAILY [facility] Administration Nystatin/Triamcinolone Acetonide 10 applic 07/12/16 13:30 07/12/16 17:41 Mycolog Ii Cream - TP Not Given BID [facility] Pantoprazole Sodium 40 mg 07/08/16 10:00 07/12/16 09:02 Protonix - PO 40 mg DAILY [facility] Administration Sevelamer Carbonate 0.8 gm 07/03/16 17:30 07/12/16 13:53 Renvela Powder Packet - PO 0.8 gm TIDCM [facility] Administration Silver Sulfadiazine 1 applic 07/03/16 22:00 07/12/16 13:53 Silvadene - TP 1 applic BID [facility] Administration Zinc Sulfate 220 mg 07/09/16 10:00 07/12/16 09:02 Orazinc - PO 220 mg DAILY [facility] Administration Impression 1. 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 sepsis with shock 3. cellulitis/abscess of back 4. CHF acute 5. hypothyroidism 6. hyperlipidemia 7. COPD 8. htn 9. a-fib 10. hyponatremia - isoosmolar 11. acute respiratory failure requiring intubation Plan - next HD on Thursday - no acute change in management - cont wound care - cont current meds - monitor pulse ox - cont with BiPap as needed - will continue to follow Dr Martinez
[2016-07-13] MEDS: ACETYLCYSTEINE 20% 200MG/ML 4 ML VIAL *FOR ORAL / INH USE ONLY NEB SCH ×4 (06:10→22:59)
[2016-07-13] MEDS: INSULIN SLIDING SCALE (NOVOLOG) 1 VIAL SQ SCH ×4 (06:11→22:23)
[2016-07-13] MEDS: HEPARIN NA (PORCINE) 5,000 UNITS/ML 1ML VIAL SQ SCH ×3 (06:11→22:30)
[2016-07-13] MEDS: LEVOTHYROXINE NA 50 MCG TABLET (FP) PO SCH (06:11)
[2016-07-13] MEDS: ALBUTEROL SO4 0.083% IH SOL 2.5 MG/3 ML VIAL.NEB. NEB SCH ×4 (06:11→23:00)
[2016-07-13] MEDS: SEVELAMER CARBONATE 0.8 GM POWDER PACKET PO SCH ×3 (08:43→16:49)
[2016-07-13] MEDS: AMINO ACIDS/PROTEIN HYDROLYS 30 ML LIQUID.PKT PO SCH ×2 (08:43→16:50)
[2016-07-13] MEDS: VITAMIN B COMP W-C 1 EA TABLET PO SCH (09:41)
[2016-07-13] MEDS: ZINC SULFATE 220 MG CAPSULE (FP) PO SCH (09:41)
[2016-07-13] MEDS: ASCORBIC ACID 250 MG TABLET (FP) PO SCH (09:41)
[2016-07-13] MEDS: SILVER SULFADIAZINE 1% TOP CREAM 50 GM JAR TP SCH ×2 (09:41→22:33)
[2016-07-13] MEDS: PANTOPRAZOLE 40 MG TABLET (FP) PO SCH (09:41)
[2016-07-13] MEDS: MULTIVITAMINS (DAILY MVI) TABLET (FP) PO SCH (09:41)
[2016-07-13] MEDS: COLLAGENASE CLOSTRIDIUM HIST. 30 GRAMS TUBE TP SCH ×2 (09:43→22:32)
[2016-07-13] MEDS: NYSTATIN/TRIAMCINOLONE TOPICAL CREAM 15 GM TUBE TP SCH ×2 (09:43→22:31)
[2016-07-13] MEDS: BRIMONIDINE TARTRATE 0.2% OPHTHALMIC 5 ML BOTTLE OU SCH ×2 (09:43→22:30)
[2016-07-13] MEDS: BACITRACIN 30 GM TUBE TOPICAL OINTMENT TP SCH ×2 (09:44→22:32)
--- NOTE | 2016-07-13 10:00 | PN ---
Progress Note, Physician History of Present Illness: Pt seen and examined at bedside. He is awake. He denies shortness of breath however he is on bipap. - Current Medication List Current Medications: Active Medications Acetylcysteine (Mucomyst 20 Oral / Inh Use Only*) 800 mg NEB QIDR [facility] Last Admin: 07/13/16 06:10 Dose: 800 mg Albuterol Sulfate (Ventolin 0.083% Nebulizer Soln -) 1 amp NEB QIDR [facility] Last Admin: 07/13/16 06:11 Dose: 1 amp Amino Acids (Prosource No Carb Liquid Pkt) 30 ml PO BID@0800,1730 [facility] Last Admin: 07/13/16 08:43 Dose: Not Given Ascorbic Acid (Vitamin C -) 250 mg PO DAILY [facility] Last Admin: 07/13/16 09:41 Dose: 250 mg Bacitracin (Bacitracin -) 1 applic TP BID [facility] Last Admin: 07/13/16 09:44 Dose: 1 applic Brimonidine Tartrate (Alphagan 0.2% -) 1 drop OU BID [facility] Last Admin: 07/13/16 09:43 Dose: 1 drop Collagenase (Santyl -) 1 applic TP BID [facility] Last Admin: 07/13/16 09:43 Dose: 1 applic Heparin Sodium (Porcine) (Heparin -) 5,000 unit SQ TID [facility] Last Admin: 07/13/16 06:11 Dose: 5,000 unit Insulin Aspart (Novolog Vial Sliding Scale -) 1 vial SQ ACHS [facility] PRN Reason: Protocol Last Admin: 07/13/16 06:11 Dose: Not Given Levothyroxine Sodium (Synthroid -) 50 mcg PO DAILY@0700 [facility] Last Admin: 07/13/16 06:11 Dose: 50 mcg Multivit/Ca Carb/B Cmplx/FA/Prenat (Nephro-Mor -) 1 tablet PO DAILY [facility] Last Admin: 07/13/16 09:41 Dose: 1 tablet Multivitamins/Minerals/Vitamin C (Tab-A-Vit -) 1 tab PO DAILY [facility] Last Admin: 07/13/16 09:41 Dose: 1 tab Nystatin/Triamcinolone Acetonide (Mycolog Ii Cream -) 10 applic TP BID [facility] Last Admin: 07/13/16 09:43 Dose: 1 applic Pantoprazole Sodium (Protonix -) 40 mg PO DAILY [facility] Last Admin: 07/13/16 09:41 Dose: 40 mg Sevelamer Carbonate (Renvela Powder Packet -) 0.8 gm PO TIDCM [facility] Last Admin: 07/13/16 08:43 Dose: Not Given Silver Sulfadiazine (Silvadene -) 1 applic TP BID [facility] Last Admin: 07/13/16 09:41 Dose: 1 applic Zinc Sulfate (Orazinc -) 220 mg PO DAILY [facility] Last Admin: 07/13/16 09:41 Dose: 220 mg - Objective Vital Signs: Vital Signs Temperature 97.2 F L 07/13/16 06:00 Pulse Rate 106 H 07/13/16 06:00 Respiratory Rate 24 07/13/16 06:00 Blood Pressure 92/58 07/13/16 06:00 O2 Sat by Pulse Oximetry (%) 98 07/13/16 06:37 Constitutional: Yes: Calm Eyes: Yes: Conjunctiva Clear Cardiovascular: Yes: S1, S2 Respiratory: Yes: On BiPap Gastrointestinal: Yes: Soft Genitourinary: Yes: Incontinence Musculoskeletal: Yes: Muscle Weakness Edema: Yes Edema: LLE: 1+, RLE: 1+ Neurological: Yes: Confusion Psychiatric: Yes: Oriented Labs: CBC, BMP 07/12/16 06:00 07/12/16 06:00 INR, PTT INR 1.85 (0.82-1.09) H 06/11/16 05:15 Fibrinogen 405.0 mg/dL (238-498) 06/10/16 04:45 Problem List - Problems (1) Acute hyperkalemia Code(s): E87.5 - HYPERKALEMIA (2) Hyponatremia Code(s): E87.1 - HYPO-OSMOLALITY AND HYPONATREMIA (3) Hypotension Code(s): I95.9 - HYPOTENSION, UNSPECIFIED Qualifiers: Qualified Code(s): I95.89 - Other hypotension (4) Acute on chronic renal failure Code(s): N17.9 - ACUTE KIDNEY FAILURE, UNSPECIFIED N18.9 - CHRONIC KIDNEY DISEASE, UNSPECIFIED (5) Anemia Code(s): D64.9 - ANEMIA, UNSPECIFIED Qualifiers: Qualified Code(s): N18.9 - Chronic kidney disease, unspecified; D63.1 - Anemia in chronic kidney disease (6) COPD (chronic obstructive pulmonary disease) Code(s): J44.9 - CHRONIC OBSTRUCTIVE PULMONARY DISEASE, UNSPECIFIED (7) Congestive heart failure (CHF) Code(s): I50.9 - HEART FAILURE, UNSPECIFIED Qualifiers: Qualified Code(s): I50.22 - Chronic systolic (congestive) heart failure (8) DMII (diabetes mellitus, type 2) Code(s): E11.9 - TYPE 2 DIABETES MELLITUS WITHOUT COMPLICATIONS (9) CKD (chronic kidney disease) Code(s): N18.9 - CHRONIC KIDNEY DISEASE, UNSPECIFIED Assessment/Plan Current Medications Generic Name Dose Route Start Last Admin Trade Name Freq PRN Reason Stop Dose Admin Acetylcysteine 800 mg 07/03/16 18:00 07/13/16 06:10 Mucomyst 20 Oral / Inh Use Only* NEB 800 mg QIDR [facility] Administration Albuterol Sulfate 1 amp 07/03/16 18:00 07/13/16 06:11 Ventolin 0.083% Nebulizer Soln - NEB 1 amp QIDR [facility] Administration Amino Acids 30 ml 07/03/16 17:30 07/13/16 08:43 Prosource No Carb Liquid Pkt PO Not Given BID@0800,1730 [facility] Ascorbic Acid 250 mg 07/09/16 10:00 07/13/16 09:41 Vitamin C - PO 250 mg DAILY [facility] Administration Bacitracin 1 applic 07/03/16 22:00 07/13/16 09:44 Bacitracin - TP 1 applic BID [facility] Administration Brimonidine Tartrate 1 drop 07/03/16 22:00 07/13/16 09:43 Alphagan 0.2% - OU 1 drop BID [facility] Administration Collagenase 1 applic 07/03/16 22:00 07/13/16 09:43 Santyl - TP 1 applic BID [facility] Administration Heparin Sodium (Porcine) 5,000 unit 07/10/16 22:00 07/13/16 06:11 Heparin - SQ 5,000 unit TID [facility] Administration Insulin Aspart 1 vial 07/03/16 16:30 07/13/16 06:11 Novolog Vial Sliding Scale - SQ Not Given ACHS [facility] Protocol Levothyroxine Sodium 50 mcg 07/05/16 07:00 07/13/16 06:11 Synthroid - PO 50 mcg DAILY@0700 [facility] Administration Multivit/Ca Carb/B Cmplx/FA/Prenat 1 tablet 07/09/16 10:00 07/13/16 09:41 Nephro-Mor - PO 1 tablet DAILY [facility] Administration Multivitamins/Minerals/Vitamin C 1 tab 07/09/16 10:00 07/13/16 09:41 Tab-A-Vit - PO 1 tab DAILY [facility] Administration Nystatin/Triamcinolone Acetonide 10 applic 07/12/16 13:30 07/13/16 09:43 Mycolog Ii Cream - TP 1 applic BID [facility] Administration Pantoprazole Sodium 40 mg 07/08/16 10:00 07/13/16 09:41 Protonix - PO 40 mg DAILY [facility] Administration Sevelamer Carbonate 0.8 gm 07/03/16 17:30 07/13/16 08:43 Renvela Powder Packet - PO Not Given TIDCM [facility] Silver Sulfadiazine 1 applic 07/03/16 22:00 07/13/16 09:41 Silvadene - TP 1 applic BID [facility] Administration Zinc Sulfate 220 mg 07/09/16 10:00 07/13/16 09:41 Orazinc - PO 220 mg DAILY [facility] Administration Impression 1. 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 sepsis with shock 3. cellulitis/abscess of back 4. CHF acute 5. hypothyroidism 6. hyperlipidemia 7. COPD 8. htn 9. a-fib 10. hyponatremia - isoosmolar 11. acute respiratory failure requiring intubation Plan - HD in am - monitor pulse oz, Bipap as needed - cont current meds - no acute change in management - cont wound care - monitor pulse ox Dr Martinez
[2016-07-13] MEDS ORDERED: PT OWN MED DRAWER 7, Y5N ONE (12:21)
--- NOTE | 2016-07-13 13:13 | PN ---
Progress Note (short form) - Note Progress Note: Awake and responsive. Currently on NIPPV. (+) cough. No CP. Intake & Output 07/10/16 07/11/16 07/12/16 07/13/16 23:59 23:59 23:59 23:59 Intake Total 190 200 400 Balance 190 200 400 Last Vital Signs Temp Pulse Resp BP Pulse Ox 97.2 F L 106 H 24 92/58 98 07/13/16 06:00 07/13/16 06:00 07/13/16 06:00 07/13/16 06:00 07/13/16 06:37 Active Medications Acetylcysteine (Mucomyst 20 Oral / Inh Use Only*) 800 mg NEB QIDR [facility] Last Admin: 07/13/16 06:10 Dose: 800 mg Albuterol Sulfate (Ventolin 0.083% Nebulizer Soln -) 1 amp NEB QIDR [facility] Last Admin: 07/13/16 06:11 Dose: 1 amp Amino Acids (Prosource No Carb Liquid Pkt) 30 ml PO BID@0800,1730 [facility] Last Admin: 07/13/16 08:43 Dose: Not Given Ascorbic Acid (Vitamin C -) 250 mg PO DAILY [facility] Last Admin: 07/13/16 09:41 Dose: 250 mg Bacitracin (Bacitracin -) 1 applic TP BID [facility] Last Admin: 07/13/16 09:44 Dose: 1 applic Brimonidine Tartrate (Alphagan 0.2% -) 1 drop OU BID [facility] Last Admin: 07/13/16 09:43 Dose: 1 drop Collagenase (Santyl -) 1 applic TP BID [facility] Last Admin: 07/13/16 09:43 Dose: 1 applic Epoetin Wilson (Epogen -) 8,000 units IVPUSH ONCE ONE Stop: 07/14/16 10:01 Heparin Sodium (Porcine) (Heparin -) 5,000 unit SQ TID [facility] Last Admin: 07/13/16 06:11 Dose: 5,000 unit Heparin Sodium (Porcine) (Heparin -) 1,000 unit IVPUSH ONCE ONE Stop: 07/14/16 10:01 Insulin Aspart (Novolog Vial Sliding Scale -) 1 vial SQ ACHS [facility] PRN Reason: Protocol Last Admin: 07/13/16 12:22 Dose: Not Given Levothyroxine Sodium (Synthroid -) 50 mcg PO DAILY@0700 [facility] Last Admin: 07/13/16 06:11 Dose: 50 mcg Multivit/Ca Carb/B Cmplx/FA/Prenat (Nephro-Mor -) 1 tablet PO DAILY [facility] Last Admin: 07/13/16 09:41 Dose: 1 tablet Multivitamins/Minerals/Vitamin C (Tab-A-Vit -) 1 tab PO DAILY [facility] Last Admin: 07/13/16 09:41 Dose: 1 tab Nystatin/Triamcinolone Acetonide (Mycolog Ii Cream -) 10 applic TP BID [facility] Last Admin: 07/13/16 09:43 Dose: 1 applic Pantoprazole Sodium (Protonix -) 40 mg PO DAILY [facility] Last Admin: 07/13/16 09:41 Dose: 40 mg Sevelamer Carbonate (Renvela Powder Packet -) 0.8 gm PO TIDCM [facility] Last Admin: 07/13/16 12:23 Dose: 0.8 gm Silver Sulfadiazine (Silvadene -) 1 applic TP BID [facility] Last Admin: 07/13/16 09:41 Dose: 1 applic Zinc Sulfate (Orazinc -) 220 mg PO DAILY [facility] Last Admin: 07/13/16 09:41 Dose: 220 mg Gen: Awake and responsive, on NIPPV Heart: RRR Lung: scattered rhonchi Abd: soft, nontender Ext: decreasing edema Laboratory Results - last 24 hr 07/12/16 07/12/16 07/13/16 17:40 21:27 05:27 POC Glucometer 152 191 111 07/13/16 11:45 POC Glucometer 137 A/P s/p Acute Respiratory Failure Back/Shoulder Cellulitis/Abscess Septic vs Cardiogenic Shock Acute on Chronic Renal Failure Metabolic Acidosis Acute on Chronic LV Systolic Heart Failure Atrial Fibrillation COPD Hyponatremia Atelectasis improving - VM O2 50% alternating with NIPPV as needed and QHS - HD per renal - s/p antibiotic course - O2 to keep SpO2 >90% - aspiration precautions - inhaled bronchodilators & mucolytics - PO as tolerated - DVT/GI prophylaxis - rehab/PT - OOB to chair if possible Dr Farrell
--- NOTE | 2016-07-13 19:37 | PN ---
Progress Note, Physician History of Present Illness: no complaints - Current Medication List Current Medications: Active Medications Acetylcysteine (Mucomyst 20 Oral / Inh Use Only*) 800 mg NEB QIDR [facility] Last Admin: 07/13/16 17:56 Dose: 800 mg Albuterol Sulfate (Ventolin 0.083% Nebulizer Soln -) 1 amp NEB QIDR [facility] Last Admin: 07/13/16 17:56 Dose: 1 amp Amino Acids (Prosource No Carb Liquid Pkt) 30 ml PO BID@0800,1730 [facility] Last Admin: 07/13/16 16:50 Dose: 30 ml Ascorbic Acid (Vitamin C -) 250 mg PO DAILY [facility] Last Admin: 07/13/16 09:41 Dose: 250 mg Bacitracin (Bacitracin -) 1 applic TP BID [facility] Last Admin: 07/13/16 09:44 Dose: 1 applic Brimonidine Tartrate (Alphagan 0.2% -) 1 drop OU BID [facility] Last Admin: 07/13/16 09:43 Dose: 1 drop Collagenase (Santyl -) 1 applic TP BID [facility] Last Admin: 07/13/16 09:43 Dose: 1 applic Epoetin Wilson (Epogen -) 8,000 units IVPUSH ONCE ONE Stop: 07/14/16 10:01 Heparin Sodium (Porcine) (Heparin -) 5,000 unit SQ TID [facility] Last Admin: 07/13/16 16:19 Dose: 5,000 unit Heparin Sodium (Porcine) (Heparin -) 1,000 unit IVPUSH ONCE ONE Stop: 07/14/16 10:01 Insulin Aspart (Novolog Vial Sliding Scale -) 1 vial SQ [facility] PRN Reason: Protocol Last Admin: 07/13/16 16:50 Dose: 2 units Levothyroxine Sodium (Synthroid -) 50 mcg PO DAILY@0700 [facility] Last Admin: 07/13/16 06:11 Dose: 50 mcg Multivit/Ca Carb/B Cmplx/FA/Prenat (Nephro-Mor -) 1 tablet PO DAILY [facility] Last Admin: 07/13/16 09:41 Dose: 1 tablet Multivitamins/Minerals/Vitamin C (Tab-A-Vit -) 1 tab PO DAILY [facility] Last Admin: 07/13/16 09:41 Dose: 1 tab Nystatin/Triamcinolone Acetonide (Mycolog Ii Cream -) 10 applic TP BID [facility] Last Admin: 07/13/16 09:43 Dose: 1 applic Pantoprazole Sodium (Protonix -) 40 mg PO DAILY [facility] Last Admin: 07/13/16 09:41 Dose: 40 mg Sevelamer Carbonate (Renvela Powder Packet -) 0.8 gm PO TIDCM [facility] Last Admin: 07/13/16 16:49 Dose: 0.8 gm Silver Sulfadiazine (Silvadene -) 1 applic TP BID [facility] Last Admin: 07/13/16 09:41 Dose: 1 applic Zinc Sulfate (Orazinc -) 220 mg PO DAILY [facility] Last Admin: 07/13/16 09:41 Dose: 220 mg - Objective Vital Signs: Vital Signs Temperature 97.9 F 07/13/16 14:49 Pulse Rate 107 H 07/13/16 14:49 Respiratory Rate 22 07/13/16 14:49 Blood Pressure 97/53 07/13/16 14:49 O2 Sat by Pulse Oximetry (%) 98 07/13/16 17:55 Constitutional: Yes: No Distress HENT: Yes: Atraumatic Neck: Yes: Supple Cardiovascular: Yes: Regular Rate and Rhythm Respiratory: Yes: CTA Bilaterally Gastrointestinal: Yes: Normal Bowel Sounds Extremities: Yes: WNL Neurological: Yes: Alert, Oriented Labs: CBC, BMP 07/12/16 06:00 07/12/16 06:00 INR, PTT INR 1.85 (0.82-1.09) H 06/11/16 05:15 Fibrinogen 405.0 mg/dL (238-498) 06/10/16 04:45 Assessment/Plan Impression 1. 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 sepsis with shock 3. cellulitis/abscess of back 4. CHF acute 5. hypothyroidism 6. hyperlipidemia 7. COPD 8. htn 9. a-fib 10. hyponatremia - isoosmolar 11. acute respiratory failure requiring intubation Plan - on HD - on bipap prn - cont current meds - no acute change in management - cont wound care - monitor pulse ox covering dr doan
[2016-07-14] MEDS: INSULIN SLIDING SCALE (NOVOLOG) 1 VIAL SQ SCH ×4 (05:59→22:27)
[2016-07-14] MEDS: LEVOTHYROXINE NA 50 MCG TABLET (FP) PO SCH (06:00)
[2016-07-14] MEDS: ACETYLCYSTEINE 20% 200MG/ML 4 ML VIAL *FOR ORAL / INH USE ONLY NEB SCH ×4 (06:32→23:17)
[2016-07-14] MEDS: ALBUTEROL SO4 0.083% IH SOL 2.5 MG/3 ML VIAL.NEB. NEB SCH ×4 (06:32→23:18)
[2016-07-14] MEDS: SEVELAMER CARBONATE 0.8 GM POWDER PACKET PO SCH ×3 (09:35→16:50)
[2016-07-14] MEDS: AMINO ACIDS/PROTEIN HYDROLYS 30 ML LIQUID.PKT PO SCH ×2 (09:35→16:50)
[2016-07-14] MEDS: MULTIVITAMINS (DAILY MVI) TABLET (FP) PO SCH (09:36)
[2016-07-14] MEDS: PANTOPRAZOLE 40 MG TABLET (FP) PO SCH (09:36)
[2016-07-14] MEDS: ZINC SULFATE 220 MG CAPSULE (FP) PO SCH (09:36)
[2016-07-14] MEDS: ASCORBIC ACID 250 MG TABLET (FP) PO SCH (09:36)
[2016-07-14] MEDS: VITAMIN B COMP W-C 1 EA TABLET PO SCH (09:36)
[2016-07-14] MEDS ORDERED: EPOETIN ALFA 10,000 UNIT/1 ML VIAL IVPUSH ONE (10:00)
[2016-07-14] MEDS ORDERED: HEPARIN NA (PORCINE) 5,000 UNITS/ML 1ML VIAL IVPUSH ONE (10:00)
--- NOTE | 2016-07-14 10:44 | PN ---
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 - Note Progress Note: Selected Entries 07/12/16 07/12/16 07/12/16 02:00 06:00 09:23 Breakfast Lunch Supper Temperature 97.4 F L 98.0 F 98 F 07/12/16 07/12/16 07/12/16 10:11 14:00 17:15 Breakfast 50% Lunch 50% Supper Temperature 98.7 F 97.2 F L 07/12/16 07/12/16 07/13/16 18:00 22:00 02:00 Breakfast Lunch Supper 75% 75% Temperature 98.3 F 98.2 F 07/13/16 07/13/16 07/13/16 06:00 06:28 10:00 Breakfast Lunch Supper Temperature 97.2 F L 97.3 F L 98 F 07/13/16 07/13/16 07/13/16 14:49 21:00 22:00 Breakfast Lunch Supper 75% Temperature 97.9 F 97.6 F 07/13/16 07/14/16 07/14/16 22:09 02:00 06:00 Breakfast Lunch Supper 75% Temperature 97.7 F 97.6 F 07/14/16 06:50 Breakfast Lunch Supper Temperature 97.6 F Dysphagia puree. High protein. [place] consistency. Also receiving Magic cup TID, Ensure Compact BID Pt is not on Hosp[ice. NPO for debridement today. Encourage supplements b/n meals, Continue to monitor tolerance.
[2016-07-14] MEDS: SILVER SULFADIAZINE 1% TOP CREAM 50 GM JAR TP SCH ×2 (11:26→22:32)
[2016-07-14] MEDS: BACITRACIN 30 GM TUBE TOPICAL OINTMENT TP SCH ×2 (11:28→22:32)
[2016-07-14] MEDS: BRIMONIDINE TARTRATE 0.2% OPHTHALMIC 5 ML BOTTLE OU SCH ×2 (11:28→22:29)
[2016-07-14] MEDS: NYSTATIN/TRIAMCINOLONE TOPICAL CREAM 15 GM TUBE TP SCH ×2 (11:28→22:29)
[2016-07-14] MEDS: COLLAGENASE CLOSTRIDIUM HIST. 30 GRAMS TUBE TP SCH ×2 (11:28→22:32)
[2016-07-14] MEDS: HEPARIN NA (PORCINE) 5,000 UNITS/ML 1ML VIAL SQ SCH ×3 (11:29→22:29)
--- NOTE | 2016-07-14 11:31 | SPA.PREOP ---
- PRE-OP NOTE Dx: Bilateral lower extremity ulcers with eschars Planned Procedure: Bilateral lower extremity debridement Surgeon: Dr. Batres Consent: To be obtained after surgeon explains all risks, benefits and alternatives. Last Vital Signs Temp Pulse Resp BP Pulse Ox 97.6 F 62 18 98/56 96 07/14/16 06:50 07/14/16 10:20 07/14/16 10:20 07/14/16 10:20 07/14/16 04:10 Lab Results WBC 11.2 K/mm3 (4.0-10.0) H 07/12/16 06:00 RBC 3.21 M/mm3 (4.00-5.60) L 07/12/16 06:00 Hgb 8.8 GM/dL (11.7-16.9) L 07/12/16 06:00 Hct 28.9 % (35.4-49) L 07/12/16 06:00 MCV 90.0 fl (80-96) 07/12/16 06:00 MCHC 30.6 g/dl (32.0-35.9) L 07/12/16 06:00 RDW 19.8 % (11.9-15.9) H 07/12/16 06:00 Plt Count 147 K/MM3 (134-434) 07/12/16 06:00 Sodium 146 mmol/L (136-145) H 07/12/16 06:00 Potassium 4.4 mmol/L (3.5-5.1) 07/12/16 06:00 Chloride 103 mmol/L (98-107) 07/12/16 06:00 Carbon Dioxide 30 mmol/L (21-32) 07/12/16 06:00 Anion Gap 13 (8-16) 07/12/16 06:00 BUN 34 mg/dL (7-18) H D 07/12/16 06:00 Creatinine 3.5 mg/dL (0.7-1.3) H D 07/12/16 06:00 Random Glucose 136 mg/dL (74-106) H D 07/12/16 06:00 Calcium 8.6 mg/dL (8.5-10.1) 07/12/16 06:00 Blood Type A POSITIVE 06/27/16 18:40 Antibody Screen Negative 06/27/16 18:40 INR 1.85 (0.82-1.09) H 06/11/16 05:15 - ASSESSMENT/PLAN 1. Make NPO after midnight except po meds 2. GI/DVT PPX 3. Medical optimization / clearance Visit type - Case Type Case Type: ED Admission
--- NOTE | 2016-07-14 13:56 | PN ---
Progress Note, Physician History of Present Illness: pulmonary more alert,on 50%vm,dyspneic - Current Medication List Current Medications: Active Medications Acetylcysteine (Mucomyst 20 Oral / Inh Use Only*) 800 mg NEB QIDR [facility] Last Admin: 07/14/16 11:10 Dose: 800 mg Albuterol Sulfate (Ventolin 0.083% Nebulizer Soln -) 1 amp NEB QIDR [facility] Last Admin: 07/14/16 11:10 Dose: 1 amp Amino Acids (Prosource No Carb Liquid Pkt) 30 ml PO BID@0800,1730 [facility] Last Admin: 07/14/16 09:35 Dose: Not Given Ascorbic Acid (Vitamin C -) 250 mg PO DAILY [facility] Last Admin: 07/14/16 09:36 Dose: Not Given Bacitracin (Bacitracin -) 1 applic TP BID [facility] Last Admin: 07/14/16 11:28 Dose: 1 applic Brimonidine Tartrate (Alphagan 0.2% -) 1 drop OU BID [facility] Last Admin: 07/14/16 11:28 Dose: 1 drop Collagenase (Santyl -) 1 applic TP BID [facility] Last Admin: 07/14/16 11:28 Dose: 1 applic Heparin Sodium (Porcine) (Heparin -) 5,000 unit SQ TID [facility] Last Admin: 07/14/16 11:29 Dose: 5,000 unit Insulin Aspart (Novolog Vial Sliding Scale -) 1 vial SQ ACHS [facility] PRN Reason: Protocol Last Admin: 07/14/16 05:59 Dose: Not Given Levothyroxine Sodium (Synthroid -) 50 mcg PO DAILY@0700 [facility] Last Admin: 07/14/16 06:00 Dose: Not Given Multivit/Ca Carb/B Cmplx/FA/Prenat (Nephro-Mor -) 1 tablet PO DAILY [facility] Last Admin: 07/14/16 09:36 Dose: Not Given Multivitamins/Minerals/Vitamin C (Tab-A-Vit -) 1 tab PO DAILY [facility] Last Admin: 07/14/16 09:36 Dose: Not Given Nystatin/Triamcinolone Acetonide (Mycolog Ii Cream -) 10 applic TP BID [facility] Last Admin: 07/14/16 11:28 Dose: 1 applic Pantoprazole Sodium (Protonix -) 40 mg PO DAILY [facility] Last Admin: 07/14/16 09:36 Dose: Not Given Sevelamer Carbonate (Renvela Powder Packet -) 0.8 gm PO TIDCM [facility] Last Admin: 07/14/16 09:35 Dose: Not Given Silver Sulfadiazine (Silvadene -) 1 applic TP BID [facility] Last Admin: 07/14/16 11:26 Dose: 1 applic Zinc Sulfate (Orazinc -) 220 mg PO DAILY [facility] Last Admin: 07/14/16 09:36 Dose: Not Given - Objective Vital Signs: Vital Signs Temperature 97.6 F 07/14/16 06:50 Pulse Rate 62 07/14/16 10:20 Respiratory Rate 18 07/14/16 10:20 Blood Pressure 98/56 07/14/16 10:20 O2 Sat by Pulse Oximetry (%) 96 07/14/16 04:10 Constitutional: Yes: Well Nourished, Calm Eyes: Yes: WNL HENT: Yes: WNL Neck: Yes: WNL Cardiovascular: Yes: Pulse Irregular, S1, S2 Respiratory: Yes: Rhonchi (few scattered eyal rhonchi) Gastrointestinal: Yes: Normal Bowel Sounds, Soft Extremities: Yes: Other (wrapped) Edema: Yes Labs: CBC, BMP Assessment/Plan ASSESSMENT AND PLAN: s/p Acute Respiratory Failure Back/Shoulder Cellulitis/Abscess Septic vs Cardiogenic Shock resolving Acute on Chronic Renal Failure requiring HD Metabolic Acidosis Acute on Chronic LV Systolic Heart Failure Atrial Fibrillation COPD Atelectasis improving - HD per renal - O2 to keep SpO2 >90% - aspiration precautions - inhaled bronchodilators with mucolytics - PO as tolerated - DVT/GI prophylaxis - rehab/PT - ?LTAC candidate, can monitor on telemetry - BIPAP PRN - prognosis poor DR GRACE
--- NOTE | 2016-07-14 15:11 | PN ---
Progress Note, Physician History of Present Illness: Pt seen and examined at bedside. He is awake and appears comfortable. - Current Medication List Current Medications: Active Medications Acetylcysteine (Mucomyst 20 Oral / Inh Use Only*) 800 mg NEB QIDR [facility] Last Admin: 07/14/16 11:10 Dose: 800 mg Albuterol Sulfate (Ventolin 0.083% Nebulizer Soln -) 1 amp NEB QIDR [facility] Last Admin: 07/14/16 11:10 Dose: 1 amp Amino Acids (Prosource No Carb Liquid Pkt) 30 ml PO BID@0800,1730 [facility] Last Admin: 07/14/16 09:35 Dose: Not Given Ascorbic Acid (Vitamin C -) 250 mg PO DAILY [facility] Last Admin: 07/14/16 09:36 Dose: Not Given Bacitracin (Bacitracin -) 1 applic TP BID [facility] Last Admin: 07/14/16 11:28 Dose: 1 applic Brimonidine Tartrate (Alphagan 0.2% -) 1 drop OU BID [facility] Last Admin: 07/14/16 11:28 Dose: 1 drop Collagenase (Santyl -) 1 applic TP BID [facility] Last Admin: 07/14/16 11:28 Dose: 1 applic Heparin Sodium (Porcine) (Heparin -) 5,000 unit SQ TID [facility] Last Admin: 07/14/16 14:20 Dose: 5,000 unit Insulin Aspart (Novolog Vial Sliding Scale -) 1 vial SQ ACHS [facility] PRN Reason: Protocol Last Admin: 07/14/16 14:11 Dose: Not Given Levothyroxine Sodium (Synthroid -) 50 mcg PO DAILY@0700 [facility] Last Admin: 07/14/16 06:00 Dose: Not Given Multivit/Ca Carb/B Cmplx/FA/Prenat (Nephro-Mor -) 1 tablet PO DAILY [facility] Last Admin: 07/14/16 09:36 Dose: Not Given Multivitamins/Minerals/Vitamin C (Tab-A-Vit -) 1 tab PO DAILY [facility] Last Admin: 07/14/16 09:36 Dose: Not Given Nystatin/Triamcinolone Acetonide (Mycolog Ii Cream -) 10 applic TP BID [facility] Last Admin: 07/14/16 11:28 Dose: 1 applic Pantoprazole Sodium (Protonix -) 40 mg PO DAILY [facility] Last Admin: 07/14/16 09:36 Dose: Not Given Sevelamer Carbonate (Renvela Powder Packet -) 0.8 gm PO TIDCM [facility] Last Admin: 07/14/16 14:12 Dose: Not Given Silver Sulfadiazine (Silvadene -) 1 applic TP BID [facility] Last Admin: 07/14/16 11:26 Dose: 1 applic Zinc Sulfate (Orazinc -) 220 mg PO DAILY [facility] Last Admin: 07/14/16 09:36 Dose: Not Given - Objective Vital Signs: Vital Signs Temperature 97.6 F 07/14/16 06:50 Pulse Rate 62 07/14/16 10:20 Respiratory Rate 18 07/14/16 10:20 Blood Pressure 98/56 07/14/16 10:20 O2 Sat by Pulse Oximetry (%) 96 07/14/16 04:10 Constitutional: Yes: Calm Eyes: Yes: Conjunctiva Clear HENT: Yes: Atraumatic Neck: Yes: Supple Cardiovascular: Yes: S1, S2 Respiratory: Yes: On Venti-Mask Gastrointestinal: Yes: Soft Genitourinary: Yes: Incontinence Musculoskeletal: Yes: Muscle Weakness Edema: No Neurological: Yes: Oriented Labs: CBC, BMP 07/12/16 06:00 07/12/16 06:00 INR, PTT INR 1.85 (0.82-1.09) H 06/11/16 05:15 Fibrinogen 405.0 mg/dL (238-498) 06/10/16 04:45 Problem List - Problems (1) Acute hyperkalemia Code(s): E87.5 - HYPERKALEMIA (2) Hyponatremia Code(s): E87.1 - HYPO-OSMOLALITY AND HYPONATREMIA (3) Hypotension Code(s): I95.9 - HYPOTENSION, UNSPECIFIED Qualifiers: Qualified Code(s): I95.89 - Other hypotension (4) Acute on chronic renal failure Code(s): N17.9 - ACUTE KIDNEY FAILURE, UNSPECIFIED N18.9 - CHRONIC KIDNEY DISEASE, UNSPECIFIED (5) Anemia Code(s): D64.9 - ANEMIA, UNSPECIFIED Qualifiers: Qualified Code(s): N18.9 - Chronic kidney disease, unspecified; D63.1 - Anemia in chronic kidney disease (6) COPD (chronic obstructive pulmonary disease) Code(s): J44.9 - CHRONIC OBSTRUCTIVE PULMONARY DISEASE, UNSPECIFIED (7) Congestive heart failure (CHF) Code(s): I50.9 - HEART FAILURE, UNSPECIFIED Qualifiers: Qualified Code(s): I50.22 - Chronic systolic (congestive) heart failure (8) DMII (diabetes mellitus, type 2) Code(s): E11.9 - TYPE 2 DIABETES MELLITUS WITHOUT COMPLICATIONS (9) CKD (chronic kidney disease) Code(s): N18.9 - CHRONIC KIDNEY DISEASE, UNSPECIFIED Assessment/Plan Current Medications Generic Name Dose Route Start Last Admin Trade Name Freq PRN Reason Stop Dose Admin Acetylcysteine 800 mg 07/03/16 18:00 07/14/16 11:10 Mucomyst 20 Oral / Inh Use Only* NEB 800 mg QIDR [facility] Administration Albuterol Sulfate 1 amp 07/03/16 18:00 07/14/16 11:10 Ventolin 0.083% Nebulizer Soln - NEB 1 amp QIDR [facility] Administration Amino Acids 30 ml 07/03/16 17:30 07/14/16 09:35 Prosource No Carb Liquid Pkt PO Not Given BID@0800,1730 [facility] Ascorbic Acid 250 mg 07/09/16 10:00 07/14/16 09:36 Vitamin C - PO Not Given DAILY [facility] Bacitracin 1 applic 07/03/16 22:00 07/14/16 11:28 Bacitracin - TP 1 applic BID [facility] Administration Brimonidine Tartrate 1 drop 07/03/16 22:00 07/14/16 11:28 Alphagan 0.2% - OU 1 drop BID [facility] Administration Collagenase 1 applic 07/03/16 22:00 07/14/16 11:28 Santyl - TP 1 applic BID [facility] Administration Heparin Sodium (Porcine) 5,000 unit 07/10/16 22:00 07/14/16 14:20 Heparin - SQ 5,000 unit TID [facility] Administration Insulin Aspart 1 vial 07/03/16 16:30 07/14/16 14:11 Novolog Vial Sliding Scale - SQ Not Given ACHS [facility] Protocol Levothyroxine Sodium 50 mcg 07/05/16 07:00 07/14/16 06:00 Synthroid - PO Not Given DAILY@0700 [facility] Multivit/Ca Carb/B Cmplx/FA/Prenat 1 tablet 07/09/16 10:00 07/14/16 09:36 Nephro-Mor - PO Not Given DAILY [facility] Multivitamins/Minerals/Vitamin C 1 tab 07/09/16 10:00 07/14/16 09:36 Tab-A-Vit - PO Not Given DAILY [facility] Nystatin/Triamcinolone Acetonide 10 applic 07/12/16 13:30 07/14/16 11:28 Mycolog Ii Cream - TP 1 applic BID [facility] Administration Pantoprazole Sodium 40 mg 07/08/16 10:00 07/14/16 09:36 Protonix - PO Not Given DAILY [facility] Sevelamer Carbonate 0.8 gm 07/03/16 17:30 07/14/16 14:12 Renvela Powder Packet - PO Not Given TIDCM [facility] Silver Sulfadiazine 1 applic 07/03/16 22:00 07/14/16 11:26 Silvadene - TP 1 applic BID [facility] Administration Zinc Sulfate 220 mg 07/09/16 10:00 07/14/16 09:36 Orazinc - PO Not Given DAILY [facility] Impression 1. 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 sepsis with shock 3. cellulitis/abscess of back 4. CHF acute 5. hypothyroidism 6. hyperlipidemia 7. COPD 8. htn 9. a-fib 10. hyponatremia - isoosmolar 11. acute respiratory failure requiring intubation Plan - pt tolerated HD today - monitor pulse ox - cont current meds - volume status is improving - cont wound care to legs Dr Martinez
[2016-07-14] MEDS ORDERED: PT OWN MED DRAWER 7, Y5N ONE ×2 (16:32→22:24)
[2016-07-14] MEDS ORDERED: NYSTATIN/TRIAMCINOLONE TOPICAL CREAM 15 GM TUBE TP SCH (17:53)
--- NOTE | 2016-07-14 19:03 | PN ---
Progress Note, Physician Chief Complaint: asleep, venti mask on 50% - Current Medication List Current Medications: Active Medications Acetylcysteine (Mucomyst 20 Oral / Inh Use Only*) 800 mg NEB QIDR [facility] Last Admin: 07/14/16 11:10 Dose: 800 mg Albuterol Sulfate (Ventolin 0.083% Nebulizer Soln -) 1 amp NEB QIDR [facility] Last Admin: 07/14/16 11:10 Dose: 1 amp Amino Acids (Prosource No Carb Liquid Pkt) 30 ml PO BID@0800,1730 [facility] Last Admin: 07/14/16 16:50 Dose: 30 ml Ascorbic Acid (Vitamin C -) 250 mg PO DAILY [facility] Last Admin: 07/14/16 09:36 Dose: Not Given Bacitracin (Bacitracin -) 1 applic TP BID [facility] Last Admin: 07/14/16 11:28 Dose: 1 applic Brimonidine Tartrate (Alphagan 0.2% -) 1 drop OU BID [facility] Last Admin: 07/14/16 11:28 Dose: 1 drop Collagenase (Santyl -) 1 applic TP BID [facility] Last Admin: 07/14/16 11:28 Dose: 1 applic Heparin Sodium (Porcine) (Heparin -) 5,000 unit SQ TID [facility] Last Admin: 07/14/16 14:20 Dose: 5,000 unit Insulin Aspart (Novolog Vial Sliding Scale -) 1 vial SQ ACHS [facility] PRN Reason: Protocol Last Admin: 07/14/16 17:51 Dose: Not Given Levothyroxine Sodium (Synthroid -) 50 mcg PO DAILY@0700 [facility] Last Admin: 07/14/16 06:00 Dose: Not Given Multivit/Ca Carb/B Cmplx/FA/Prenat (Nephro-Mor -) 1 tablet PO DAILY [facility] Last Admin: 07/14/16 09:36 Dose: Not Given Multivitamins/Minerals/Vitamin C (Tab-A-Vit -) 1 tab PO DAILY [facility] Last Admin: 07/14/16 09:36 Dose: Not Given Nystatin/Triamcinolone Acetonide (Mycolog Ii Cream -) 1 applic TP BID [facility] Pantoprazole Sodium (Protonix -) 40 mg PO DAILY [facility] Last Admin: 07/14/16 09:36 Dose: Not Given Sevelamer Carbonate (Renvela Powder Packet -) 0.8 gm PO TIDCM [facility] Last Admin: 07/14/16 16:50 Dose: 0.8 gm Silver Sulfadiazine (Silvadene -) 1 applic TP BID [facility] Last Admin: 07/14/16 11:26 Dose: 1 applic Zinc Sulfate (Orazinc -) 220 mg PO DAILY [facility] Last Admin: 07/14/16 09:36 Dose: Not Given - Objective Vital Signs: Vital Signs Temperature 98.3 F 07/14/16 14:00 Pulse Rate 115 H 07/14/16 14:00 Respiratory Rate 22 07/14/16 14:00 Blood Pressure 110/77 07/14/16 14:00 O2 Sat by Pulse Oximetry (%) 95 07/14/16 10:00 Constitutional: Yes: Severe Distress Eyes: Yes: WNL HENT: Yes: WNL Neck: Yes: WNL Cardiovascular: Yes: Pulse Irregular Respiratory: Yes: On Venti-Mask, SOB Gastrointestinal: Yes: WNL Genitourinary: Yes: Other Musculoskeletal: Yes: Muscle Weakness Extremities: Yes: Other Peripheral Pulses WNL: Yes Integumentary: Yes: Pressure Ulcer, Venous Stasis Changes Wound/Incision: Yes: Dressing Dry and Intact, Unapproximated, Other Neurological: Yes: Pre-Existing Deficit, Unsteady Gait, Weakness ...Motor Strength: LLE, RLE Psychiatric: Yes: Other Labs: CBC, BMP 07/12/16 06:00 07/12/16 06:00 INR, PTT INR 1.85 (0.82-1.09) H 06/11/16 05:15 Fibrinogen 405.0 mg/dL (238-498) 06/10/16 04:45 Problem List - Problems (1) CKD (chronic kidney disease) Code(s): N18.9 - CHRONIC KIDNEY DISEASE, UNSPECIFIED (2) Hyponatremia Code(s): E87.1 - HYPO-OSMOLALITY AND HYPONATREMIA (3) Hypotension Code(s): I95.9 - HYPOTENSION, UNSPECIFIED Qualifiers: Qualified Code(s): I95.89 - Other hypotension (4) Lung consolidation Code(s): J18.1 - LOBAR PNEUMONIA, UNSPECIFIED ORGANISM (5) Anemia Code(s): D64.9 - ANEMIA, UNSPECIFIED Qualifiers: Qualified Code(s): N18.9 - Chronic kidney disease, unspecified; D63.1 - Anemia in chronic kidney disease (6) Atrial flutter Code(s): I48.92 - UNSPECIFIED ATRIAL FLUTTER (7) Bacteremia Code(s): R78.81 - BACTEREMIA (8) COPD (chronic obstructive pulmonary disease) Code(s): J44.9 - CHRONIC OBSTRUCTIVE PULMONARY DISEASE, UNSPECIFIED (9) DMII (diabetes mellitus, type 2) Code(s): E11.9 - TYPE 2 DIABETES MELLITUS WITHOUT COMPLICATIONS (10) Dyspnea Code(s): R06.00 - DYSPNEA, UNSPECIFIED Qualifiers: Qualified Code(s): R06.02 - Shortness of breath (11) Pressure ulcer of lower extremity, stage 1 Code(s): L89.891 - PRESSURE ULCER OF OTHER SITE, STAGE 1 (12) Sepsis Code(s): A41.9 - SEPSIS, UNSPECIFIED ORGANISM Qualifiers: Qualified Code(s): A41.9 - Sepsis, unspecified organism (13) Weakness of both lower limbs Code(s): M62.81 - MUSCLE WEAKNESS (GENERALIZED) (14) Wound of left shoulder Code(s): S41.002A - UNSPECIFIED OPEN WOUND OF LEFT SHOULDER, INITIAL ENCOUNTER Qualifiers: Qualified Code(s): S41.002D - Unspecified open wound of left shoulder, subsequent encounter (15) Acute respiratory distress Code(s): R06.00 - DYSPNEA, UNSPECIFIED Assessment/Plan WOUND CARE STAGE 3 AND 4 SACRAL ULCERS AND LEG B/L ULCERS SURGICAL DEBRIDEMENT today WOUND CARE HD PER RENAL LT[facility] NEXT WEEK ETHICS AND PALLIATIVE F/U
[2016-07-14] MEDS ORDERED: HYDROmorphone HCL CARPU-JECT 1 MG/1 ML DISP.SYRIN IVPB PRN (23:06)
[2016-07-15] MEDS: LEVOTHYROXINE NA 50 MCG TABLET (FP) PO SCH (06:01)
[2016-07-15] MEDS: INSULIN SLIDING SCALE (NOVOLOG) 1 VIAL SQ SCH ×4 (06:01→22:59)
[2016-07-15] MEDS: ALBUTEROL SO4 0.083% IH SOL 2.5 MG/3 ML VIAL.NEB. NEB SCH ×4 (06:22→23:24)
[2016-07-15] MEDS: ACETYLCYSTEINE 20% 200MG/ML 4 ML VIAL *FOR ORAL / INH USE ONLY NEB SCH ×4 (06:22→23:24)
[2016-07-15 07:39] LABS: MCH 28.2 pg (25.7-33.7); MCHC 31.2 g/dl (32.0-35.9); MEAN CELL VOLUME 90.2 fl (80-96); MEAN PLT VOLUME 10.2 fl (7.5-11.1); PLATELET COUNT 119 K/MM3 (134-434); RDW 20.2 % (11.9-15.9); WHITE BLOOD COUNT 9.4 K/mm3 (4.0-10.0)
[2016-07-15] MEDS: SEVELAMER CARBONATE 0.8 GM POWDER PACKET PO SCH ×3 (08:00→17:13)
[2016-07-15] MEDS: AMINO ACIDS/PROTEIN HYDROLYS 30 ML LIQUID.PKT PO SCH ×2 (08:00→17:13)
[2016-07-15] MEDS: MULTIVITAMINS (DAILY MVI) TABLET (FP) PO SCH (09:02)
[2016-07-15] MEDS: SILVER SULFADIAZINE 1% TOP CREAM 50 GM JAR TP SCH ×2 (09:02→22:58)
[2016-07-15] MEDS: ASCORBIC ACID 250 MG TABLET (FP) PO SCH (09:02)
[2016-07-15] MEDS: ZINC SULFATE 220 MG CAPSULE (FP) PO SCH (09:02)
[2016-07-15] MEDS: PANTOPRAZOLE 40 MG TABLET (FP) PO SCH (09:02)
[2016-07-15] MEDS: VITAMIN B COMP W-C 1 EA TABLET PO SCH (09:02)
[2016-07-15] MEDS: BRIMONIDINE TARTRATE 0.2% OPHTHALMIC 5 ML BOTTLE OU SCH ×2 (10:00→22:59)
[2016-07-15] MEDS: NYSTATIN/TRIAMCINOLONE TOPICAL CREAM 15 GM TUBE TP SCH ×2 (10:00→22:58)
[2016-07-15] MEDS: BACITRACIN 30 GM TUBE TOPICAL OINTMENT TP SCH ×2 (10:00→22:59)
[2016-07-15] MEDS: COLLAGENASE CLOSTRIDIUM HIST. 30 GRAMS TUBE TP SCH ×2 (10:00→23:00)
[2016-07-15] MEDS ORDERED: DEXTROSE 5%-0.45% SALINE 1,000 ML IV SCH (10:15)
[2016-07-15 10:50] LABS: ARTERIAL BLD GAS O2 SATURATION 98.6 % (90-98.9); ARTERIAL BLOOD GAS HCO3 28.4 meq/L (22-26); ARTERIAL BLOOD GAS pH 7.42 (7.35-7.45)
[2016-07-15 10:51] LABS: ALLENS TEST POSITIVE; ART PUNCT SITE RIGHT RADIAL; LPM/O2% 50%; PT. ON O2? YES; TYPE OF O2 VENTI MASK
[2016-07-15] MEDS ORDERED: DEXTROSE 5%-NORMAL SALINE 500 ML IV SCH (12:15)
[2016-07-15] MEDS ORDERED: LIDOCAINE HCL 1%, 10 MG/ML (20ML VIAL) ONE (12:59)
[2016-07-15] MEDS: HEPARIN NA (PORCINE) 5,000 UNITS/ML 1ML VIAL SQ SCH ×2 (13:27→22:59)
[2016-07-15] MEDS ORDERED: ONDANSETRON 4 MG/2 ML VIAL IVPUSH PRN (13:35)
[2016-07-15] MEDS ORDERED: ACETAMINOPHEN 1000 MG/100 ML VIAL (NON FORMULARY) IVPB PRN (13:36)
[2016-07-15] MEDS ORDERED: LACTATED RINGERS SOLUTION 1,000 ML IV SCH (13:45)
[2016-07-15] MEDS ORDERED: MIDAZOLAM HCL 2 MG/2 ML SINGLE DOSE VIAL ONE (14:07)
[2016-07-15 15:32] LABS: ARTERIAL BLD GAS O2 SATURATION 99.9 % (90-98.9); ARTERIAL BLOOD GAS BASE EXCESS 2.4 meq/l (-2-2); ARTERIAL BLOOD GAS HCO3 27.8 meq/L (22-26); ARTERIAL BLOOD GAS pH 7.36 (7.35-7.45)
[2016-07-15 15:33] LABS: ALLENS TEST POSITIVE; ART PUNCT SITE RIGHT RADIAL; LPM/O2% 100%; PT. ON O2? YES; TYPE OF O2 NONREBREATHER MASK
--- NOTE | 2016-07-15 15:56 | PN ---
Progress Note (short form) - Note Progress Note: PULMONARY/CCM Pt seen and examined in the PACU. Debridement aborted after pt received sedation , became hypoxic and went into rapid afib. Recovering in PACU, alert, denies shortness of breath or chest pain but on NRB. Last Vital Signs Temp Pulse Resp BP Pulse Ox 97.8 F 125 H 18 93/61 98 07/15/16 13:10 07/15/16 13:10 07/15/16 13:10 07/15/16 13:10 07/15/16 12:26 Intake & Output 07/12/16 07/13/16 07/14/16 07/15/16 23:59 23:59 23:59 23:59 Intake Total 400 60 250 Balance 400 60 250 Gen: mildly tachypneic at rest Heart: tachycardic, irregular Lung: distant breath sounds Abd: soft, nontender Ext: decreasing edema CBC, BMP 07/15/16 05:30 07/12/16 06:00 Active Medications Acetaminophen (Ofirmev Injection -) 1,000 mg IVPB Q6H PRN PRN Reason: FEVER OR PAIN Acetylcysteine (Mucomyst 20 Oral / Inh Use Only*) 800 mg NEB QIDR [facility] Last Admin: 07/15/16 11:25 Dose: 800 mg Albuterol Sulfate (Ventolin 0.083% Nebulizer Soln -) 1 amp NEB QIDR [facility] Last Admin: 07/15/16 11:25 Dose: 1 amp Amino Acids (Prosource No Carb Liquid Pkt) 30 ml PO BID@0800,1730 [facility] Last Admin: 07/15/16 08:00 Dose: Not Given Ascorbic Acid (Vitamin C -) 250 mg PO DAILY [facility] Last Admin: 07/15/16 09:02 Dose: Not Given Bacitracin (Bacitracin -) 1 applic TP BID [facility] Last Admin: 07/15/16 10:00 Dose: Not Given Brimonidine Tartrate (Alphagan 0.2% -) 1 drop OU BID [facility] Last Admin: 07/14/16 22:29 Dose: 1 drop Collagenase (Santyl -) 1 applic TP BID [facility] Last Admin: 07/14/16 22:32 Dose: 1 applic Heparin Sodium (Porcine) (Heparin -) 5,000 unit SQ TID [facility] Last Admin: 07/15/16 13:27 Dose: Not Given Hydromorphone HCl (Dilaudid Injection -) 1 mg IVPB Q6H PRN Dextrose/Sodium Chloride (D5-Ns -) 500 mls @ 83 mls/hr IV ASDIR [facility] Stop: 07/15/16 18:17 Lactated Ringer's (Lactated Ringers Solution) 1,000 mls @ 75 mls/hr IV ASDIR [facility] Insulin Aspart (Novolog Vial Sliding Scale -) 1 vial SQ ACHS [facility] PRN Reason: Protocol Last Admin: 07/15/16 11:06 Dose: Not Given Levothyroxine Sodium (Synthroid -) 50 mcg PO DAILY@0700 [facility] Last Admin: 07/15/16 06:01 Dose: Not Given Multivit/Ca Carb/B Cmplx/FA/Prenat (Nephro-Mor -) 1 tablet PO DAILY [facility] Last Admin: 07/15/16 09:02 Dose: Not Given Multivitamins/Minerals/Vitamin C (Tab-A-Vit -) 1 tab PO DAILY [facility] Last Admin: 07/15/16 09:02 Dose: Not Given Nystatin/Triamcinolone Acetonide (Mycolog Ii Cream -) 1 applic TP BID [facility] Last Admin: 07/14/16 22:29 Dose: 1 applic Ondansetron HCl (Zofran Injection) 4 mg IVPUSH Q6H PRN PRN Reason: NAUSEA AND/OR VOMITING Stop: 07/15/16 19:36 Pantoprazole Sodium (Protonix -) 40 mg PO DAILY [facility] Last Admin: 07/15/16 09:02 Dose: Not Given Sevelamer Carbonate (Renvela Powder Packet -) 0.8 gm PO TIDCM [facility] Last Admin: 07/15/16 12:06 Dose: Not Given Silver Sulfadiazine (Silvadene -) 1 applic TP BID [facility] Last Admin: 07/15/16 09:02 Dose: Not Given Zinc Sulfate (Orazinc -) 220 mg PO DAILY [facility] Last Admin: 07/15/16 09:02 Dose: Not Given A/P s/p Acute Respiratory Failure Back/Shoulder Cellulitis/Abscess Septic vs Cardiogenic Shock resolved Acute on Chronic Renal Failure now requiring HD Metabolic Acidosis Acute on Chronic LV Systolic Heart Failure Atrial Fibrillation COPD Atelectasis improving - s/p antibiotic course - wound care - O2 to keep SpO2 >90% - BiPAP as needed to assist in work of breathing - aspiration precautions - inhaled bronchodilators - DVT/GI prophylaxis - rehab/PT - can monitor on telemetry
[2016-07-15] MEDS ORDERED: PT OWN MED DRAWER 7, Y5N ONE ×2 (16:32→22:44)
--- NOTE | 2016-07-15 16:38 | PN ---
Progress Note, Physician History of Present Illness: Pt seen and examined. He was going for debridement but procedure was stopped secondary to a-fib. - Current Medication List Current Medications: Active Medications Acetaminophen (Ofirmev Injection -) 1,000 mg IVPB Q6H PRN PRN Reason: FEVER OR PAIN Acetylcysteine (Mucomyst 20 Oral / Inh Use Only*) 800 mg NEB QIDR [facility] Last Admin: 07/15/16 11:25 Dose: 800 mg Albuterol Sulfate (Ventolin 0.083% Nebulizer Soln -) 1 amp NEB QIDR [facility] Last Admin: 07/15/16 11:25 Dose: 1 amp Amino Acids (Prosource No Carb Liquid Pkt) 30 ml PO BID@0800,1730 [facility] Last Admin: 07/15/16 08:00 Dose: Not Given Ascorbic Acid (Vitamin C -) 250 mg PO DAILY [facility] Last Admin: 07/15/16 09:02 Dose: Not Given Bacitracin (Bacitracin -) 1 applic TP BID [facility] Last Admin: 07/15/16 10:00 Dose: Not Given Brimonidine Tartrate (Alphagan 0.2% -) 1 drop OU BID [facility] Last Admin: 07/15/16 10:00 Dose: 1 drop Collagenase (Santyl -) 1 applic TP BID [facility] Last Admin: 07/15/16 10:00 Dose: 1 applic Heparin Sodium (Porcine) (Heparin -) 5,000 unit SQ TID [facility] Last Admin: 07/15/16 13:27 Dose: Not Given Hydromorphone HCl (Dilaudid Injection -) 1 mg IVPB Q6H PRN Dextrose/Sodium Chloride (D5-Ns -) 500 mls @ 83 mls/hr IV ASDIR [facility] Stop: 07/15/16 18:17 Last Admin: 07/15/16 09:45 Dose: 83 mls/hr Lactated Ringer's (Lactated Ringers Solution) 1,000 mls @ 75 mls/hr IV ASDIR [facility] Insulin Aspart (Novolog Vial Sliding Scale -) 1 vial SQ ACHS [facility] PRN Reason: Protocol Last Admin: 07/15/16 11:06 Dose: Not Given Levothyroxine Sodium (Synthroid -) 50 mcg PO DAILY@0700 [facility] Last Admin: 07/15/16 06:01 Dose: Not Given Multivit/Ca Carb/B Cmplx/FA/Prenat (Nephro-Mor -) 1 tablet PO DAILY [facility] Last Admin: 07/15/16 09:02 Dose: Not Given Multivitamins/Minerals/Vitamin C (Tab-A-Vit -) 1 tab PO DAILY [facility] Last Admin: 07/15/16 09:02 Dose: Not Given Nystatin/Triamcinolone Acetonide (Mycolog Ii Cream -) 1 applic TP BID [facility] Last Admin: 07/15/16 10:00 Dose: 1 applic Ondansetron HCl (Zofran Injection) 4 mg IVPUSH Q6H PRN PRN Reason: NAUSEA AND/OR VOMITING Stop: 07/15/16 19:36 Pantoprazole Sodium (Protonix -) 40 mg PO DAILY [facility] Last Admin: 07/15/16 09:02 Dose: Not Given Sevelamer Carbonate (Renvela Powder Packet -) 0.8 gm PO TIDCM [facility] Last Admin: 07/15/16 12:06 Dose: Not Given Silver Sulfadiazine (Silvadene -) 1 applic TP BID [facility] Last Admin: 07/15/16 09:02 Dose: Not Given Zinc Sulfate (Orazinc -) 220 mg PO DAILY [facility] Last Admin: 07/15/16 09:02 Dose: Not Given - Objective Vital Signs: Vital Signs Temperature 97.8 F 07/15/16 13:10 Pulse Rate 125 H 07/15/16 13:10 Respiratory Rate 18 07/15/16 13:10 Blood Pressure 93/61 07/15/16 13:10 O2 Sat by Pulse Oximetry (%) 98 07/15/16 12:26 Constitutional: Yes: Calm Eyes: Yes: Conjunctiva Clear HENT: Yes: Atraumatic Cardiovascular: Yes: Pulse Irregular, S1, S2 Respiratory: Yes: On Venti-Mask Gastrointestinal: Yes: Soft Genitourinary: Yes: Incontinence Musculoskeletal: Yes: Muscle Weakness Edema: Yes Edema: LLE: Trace, RLE: Trace Neurological: Yes: Oriented Labs: CBC, BMP 07/15/16 05:30 07/12/16 06:00 INR, PTT INR 1.85 (0.82-1.09) H 06/11/16 05:15 Fibrinogen 405.0 mg/dL (238-498) 06/10/16 04:45 Problem List - Problems (1) Acute hyperkalemia Code(s): E87.5 - HYPERKALEMIA (2) Hyponatremia Code(s): E87.1 - HYPO-OSMOLALITY AND HYPONATREMIA (3) Hypotension Code(s): I95.9 - HYPOTENSION, UNSPECIFIED Qualifiers: Qualified Code(s): I95.89 - Other hypotension (4) Acute on chronic renal failure Code(s): N17.9 - ACUTE KIDNEY FAILURE, UNSPECIFIED N18.9 - CHRONIC KIDNEY DISEASE, UNSPECIFIED (5) Anemia Code(s): D64.9 - ANEMIA, UNSPECIFIED Qualifiers: Qualified Code(s): N18.9 - Chronic kidney disease, unspecified; D63.1 - Anemia in chronic kidney disease (6) COPD (chronic obstructive pulmonary disease) Code(s): J44.9 - CHRONIC OBSTRUCTIVE PULMONARY DISEASE, UNSPECIFIED (7) Congestive heart failure (CHF) Code(s): I50.9 - HEART FAILURE, UNSPECIFIED Qualifiers: Qualified Code(s): I50.22 - Chronic systolic (congestive) heart failure (8) DMII (diabetes mellitus, type 2) Code(s): E11.9 - TYPE 2 DIABETES MELLITUS WITHOUT COMPLICATIONS (9) CKD (chronic kidney disease) Code(s): N18.9 - CHRONIC KIDNEY DISEASE, UNSPECIFIED Assessment/Plan Current Medications Generic Name Dose Route Start Last Admin Trade Name Freq PRN Reason Stop Dose Admin Acetaminophen 1,000 mg 07/15/16 13:36 Ofirmev Injection - IVPB Q6H PRN FEVER OR PAIN Acetylcysteine 800 mg 07/03/16 18:00 07/15/16 11:25 Mucomyst 20 Oral / Inh Use Only* NEB 800 mg QIDR [facility] Administration Albuterol Sulfate 1 amp 07/03/16 18:00 07/15/16 11:25 Ventolin 0.083% Nebulizer Soln - NEB 1 amp QIDR [facility] Administration Amino Acids 30 ml 07/03/16 17:30 07/15/16 08:00 Prosource No Carb Liquid Pkt PO Not Given BID@0800,1730 [facility] Ascorbic Acid 250 mg 07/09/16 10:00 07/15/16 09:02 Vitamin C - PO Not Given DAILY [facility] Bacitracin 1 applic 07/03/16 22:00 07/15/16 10:00 Bacitracin - TP Not Given BID [facility] Brimonidine Tartrate 1 drop 07/03/16 22:00 07/15/16 10:00 Alphagan 0.2% - OU 1 drop BID [facility] Administration Collagenase 1 applic 07/03/16 22:00 07/15/16 10:00 Santyl - TP 1 applic BID [facility] Administration Heparin Sodium (Porcine) 5,000 unit 07/10/16 22:00 07/15/16 13:27 Heparin - SQ Not Given TID [facility] Hydromorphone HCl 1 mg 07/14/16 23:06 Dilaudid Injection - IVPB Q6H PRN Dextrose/Sodium Chloride 500 mls @ 83 mls/hr 07/15/16 12:15 07/15/16 09:45 D5-Ns - IV 07/15/16 18:17 83 mls/hr ASDIR [facility] Administration Lactated Ringer's 1,000 mls @ 75 mls/hr 07/15/16 13:45 Lactated Ringers Solution IV ASDIR [facility] Insulin Aspart 1 vial 07/03/16 16:30 07/15/16 11:06 Novolog Vial Sliding Scale - SQ Not Given ACHS [facility] Protocol Levothyroxine Sodium 50 mcg 07/05/16 07:00 07/15/16 06:01 Synthroid - PO Not Given DAILY@0700 [facility] Multivit/Ca Carb/B Cmplx/FA/Prenat 1 tablet 07/09/16 10:00 07/15/16 09:02 Nephro-Mor - PO Not Given DAILY [facility] Multivitamins/Minerals/Vitamin C 1 tab 07/09/16 10:00 07/15/16 09:02 Tab-A-Vit - PO Not Given DAILY [facility] Nystatin/Triamcinolone Acetonide 1 applic 07/14/16 22:00 07/15/16 10:00 Mycolog Ii Cream - TP 1 applic BID [facility] Administration Ondansetron HCl 4 mg 07/15/16 13:35 Zofran Injection IVPUSH 07/15/16 19:36 Q6H PRN NAUSEA AND/OR VOMITING Pantoprazole Sodium 40 mg 07/08/16 10:00 07/15/16 09:02 Protonix - PO Not Given DAILY [facility] Sevelamer Carbonate 0.8 gm 07/03/16 17:30 07/15/16 12:06 Renvela Powder Packet - PO Not Given TIDCM [facility] Silver Sulfadiazine 1 applic 07/03/16 22:00 07/15/16 09:02 Silvadene - TP Not Given BID [facility] Zinc Sulfate 220 mg 07/09/16 10:00 07/15/16 09:02 Orazinc - PO Not Given DAILY [facility] Impression 1. 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 sepsis with shock 3. cellulitis/abscess of back 4. CHF acute 5. hypothyroidism 6. hyperlipidemia 7. COPD 8. htn 9. a-fib 10. hyponatremia - isoosmolar 11. acute respiratory failure requiring intubation Plan - stop fluids - HD in am - debridement aborted - cardio follow up - monitor on tele - cont wound care to legs Dr Martinez
--- NOTE | 2016-07-15 18:23 | PN ---
Progress Note, Physician Chief Complaint: PATIENT WAS SCHEDULED FOR A SURGICAL DEBRIDEMENT OF HIS WOUNDS TODAY ON B/L LEGS AN SACRAL DECUBITI ULCER. HOWEVER WHEN ANESTHESIA AND SEDATION WAS STARTED PATIENT DEVELOPED ALARMIN CARDIAC AND HEMODYNAMIC CHANGES THAT PROMPTED THE ANESTHESIOLOGIST AND SURGEON TO CANCEL THE PROCEDURE. PATIENT TRANSFERRED BACK TO CARDIAC TELEMETRY FLOOR. - Current Medication List Current Medications: Active Medications Acetaminophen (Ofirmev Injection -) 1,000 mg IVPB Q6H PRN PRN Reason: FEVER OR PAIN Acetylcysteine (Mucomyst 20 Oral / Inh Use Only*) 800 mg NEB QIDR [facility] Last Admin: 07/15/16 11:25 Dose: 800 mg Albuterol Sulfate (Ventolin 0.083% Nebulizer Soln -) 1 amp NEB QIDR [facility] Last Admin: 07/15/16 11:25 Dose: 1 amp Amino Acids (Prosource No Carb Liquid Pkt) 30 ml PO BID@0800,1730 [facility] Last Admin: 07/15/16 17:13 Dose: 30 ml Ascorbic Acid (Vitamin C -) 250 mg PO DAILY [facility] Last Admin: 07/15/16 09:02 Dose: Not Given Bacitracin (Bacitracin -) 1 applic TP BID [facility] Last Admin: 07/15/16 10:00 Dose: Not Given Brimonidine Tartrate (Alphagan 0.2% -) 1 drop OU BID [facility] Last Admin: 07/15/16 10:00 Dose: 1 drop Collagenase (Santyl -) 1 applic TP BID [facility] Last Admin: 07/15/16 10:00 Dose: 1 applic Epoetin Wilson (Procrit -) 7,000 unit IVPUSH ONCE ONE Stop: 07/16/16 16:42 Heparin Sodium (Porcine) (Heparin -) 5,000 unit SQ TID [facility] Last Admin: 07/15/16 13:27 Dose: Not Given Heparin Sodium (Porcine) (Heparin -) 1,000 unit IVPUSH ONCE ONE Stop: 07/16/16 16:42 Hydromorphone HCl (Dilaudid Injection -) 1 mg IVPB Q6H PRN Dextrose/Sodium Chloride (D5-Ns -) 500 mls @ 83 mls/hr IV ASDIR [facility] Stop: 07/15/16 18:17 Last Admin: 07/15/16 09:45 Dose: 83 mls/hr Lactated Ringer's (Lactated Ringers Solution) 1,000 mls @ 75 mls/hr IV ASDIR [facility] Insulin Aspart (Novolog Vial Sliding Scale -) 1 vial SQ ACHS [facility] PRN Reason: Protocol Last Admin: 07/15/16 17:13 Dose: Not Given Levothyroxine Sodium (Synthroid -) 50 mcg PO DAILY@0700 [facility] Last Admin: 07/15/16 06:01 Dose: Not Given Multivit/Ca Carb/B Cmplx/FA/Prenat (Nephro-Mor -) 1 tablet PO DAILY [facility] Last Admin: 07/15/16 09:02 Dose: Not Given Multivitamins/Minerals/Vitamin C (Tab-A-Vit -) 1 tab PO DAILY [facility] Last Admin: 07/15/16 09:02 Dose: Not Given Nystatin/Triamcinolone Acetonide (Mycolog Ii Cream -) 1 applic TP BID [facility] Last Admin: 07/15/16 10:00 Dose: 1 applic Ondansetron HCl (Zofran Injection) 4 mg IVPUSH Q6H PRN PRN Reason: NAUSEA AND/OR VOMITING Stop: 07/15/16 19:36 Pantoprazole Sodium (Protonix -) 40 mg PO DAILY [facility] Last Admin: 07/15/16 09:02 Dose: Not Given Sevelamer Carbonate (Renvela Powder Packet -) 0.8 gm PO TIDCM [facility] Last Admin: 07/15/16 17:13 Dose: 0.8 gm Silver Sulfadiazine (Silvadene -) 1 applic TP BID [facility] Last Admin: 07/15/16 09:02 Dose: Not Given Zinc Sulfate (Orazinc -) 220 mg PO DAILY [facility] Last Admin: 07/15/16 09:02 Dose: Not Given - Objective Vital Signs: Vital Signs Temperature 98.1 F 07/15/16 16:00 Pulse Rate 120 H 07/15/16 16:00 Respiratory Rate 25 H 07/15/16 16:00 Blood Pressure 107/68 07/15/16 16:00 O2 Sat by Pulse Oximetry (%) 93 L 07/15/16 15:45 Constitutional: Yes: Moderate Distress Eyes: Yes: WNL HENT: Yes: WNL Neck: Yes: WNL Cardiovascular: Yes: Pulse Irregular Respiratory: Yes: On Venti-Mask, Poor Air Entry Gastrointestinal: Yes: WNL Genitourinary: Yes: Incontinence Musculoskeletal: Yes: Muscle Weakness Extremities: Yes: Deformity Edema: No Integumentary: Yes: Pressure Ulcer, Skin Tear, Venous Stasis Changes, Other Wound/Incision: Yes: Dressing Dry and Intact, Draining, Reddened, Excoriated, Unapproximated, Other (STAGE 3 AND 4 ULCERS TO B/L LEGS AND SACRAL ULCER DRESSING INTACT) Neurological: Yes: Confusion, Pre-Existing Deficit, Unsteady Gait, Weakness ...Motor Strength: LLE, RLE Labs: CBC, BMP 07/15/16 05:30 07/12/16 06:00 INR, PTT INR 1.85 (0.82-1.09) H 06/11/16 05:15 Fibrinogen 405.0 mg/dL (238-498) 06/10/16 04:45 Problem List - Problems (1) CKD (chronic kidney disease) Code(s): N18.9 - CHRONIC KIDNEY DISEASE, UNSPECIFIED (2) Hyponatremia Code(s): E87.1 - HYPO-OSMOLALITY AND HYPONATREMIA (3) Hypotension Code(s): I95.9 - HYPOTENSION, UNSPECIFIED Qualifiers: Qualified Code(s): I95.89 - Other hypotension (4) Lung consolidation Code(s): J18.1 - LOBAR PNEUMONIA, UNSPECIFIED ORGANISM (5) Anemia Code(s): D64.9 - ANEMIA, UNSPECIFIED Qualifiers: Qualified Code(s): N18.9 - Chronic kidney disease, unspecified; D63.1 - Anemia in chronic kidney disease (6) Atrial flutter Code(s): I48.92 - UNSPECIFIED ATRIAL FLUTTER (7) Bacteremia Code(s): R78.81 - BACTEREMIA (8) COPD (chronic obstructive pulmonary disease) Code(s): J44.9 - CHRONIC OBSTRUCTIVE PULMONARY DISEASE, UNSPECIFIED (9) DMII (diabetes mellitus, type 2) Code(s): E11.9 - TYPE 2 DIABETES MELLITUS WITHOUT COMPLICATIONS (10) Dyspnea Code(s): R06.00 - DYSPNEA, UNSPECIFIED Qualifiers: Qualified Code(s): R06.02 - Shortness of breath (11) Pressure ulcer of lower extremity, stage 1 Code(s): L89.891 - PRESSURE ULCER OF OTHER SITE, STAGE 1 (12) Sepsis Code(s): A41.9 - SEPSIS, UNSPECIFIED ORGANISM Qualifiers: Qualified Code(s): A41.9 - Sepsis, unspecified organism (13) Weakness of both lower limbs Code(s): M62.81 - MUSCLE WEAKNESS (GENERALIZED) (14) Wound of left shoulder Code(s): S41.002A - UNSPECIFIED OPEN WOUND OF LEFT SHOULDER, INITIAL ENCOUNTER Qualifiers: Qualified Code(s): S41.002D - Unspecified open wound of left shoulder, subsequent encounter (15) Acute respiratory distress Code(s): R06.00 - DYSPNEA, UNSPECIFIED Assessment/Plan SURGERY FOLLOW UP FOR WOUND CARE THIS PATIENT SHOULD BE ON PALLIATIVE CARE AT THIS POINT WITH MULTIPLE CO-MORBID DISEASES. I HAVE ADVISED THE ETHICS AND PALLIATIVE CARE TEAM TO DISCUSS WITH PATIENT'S NIECE ILENE AND HIS BROTHER MARCIO ABOUT THE MEDICAL CONDITION THEIR LOVED ONE IS IN. PATIENT HAS DISCUSSED WITH ME MULTIPLE TIMES IN MY PRIVATE PRACTICE THAT HE DID NOT WANT TO BE ON ARTIFICIAL LIFE SUPPORT OR TO CONTINUE LIFE IF THERE WAS A POOR QUALITY. IVF NEEDED HD PER [facility]
[2016-07-15] MEDS ORDERED: INSULIN (NOVOLOG) ASPART 100 UNITS/ML 10ML VIAL ONE (22:45)
[2016-07-16] MEDS: INSULIN SLIDING SCALE (NOVOLOG) 1 VIAL SQ SCH ×4 (06:08→23:14)
[2016-07-16] MEDS: HEPARIN NA (PORCINE) 5,000 UNITS/ML 1ML VIAL SQ SCH ×3 (06:16→23:10)
[2016-07-16] MEDS: LEVOTHYROXINE NA 50 MCG TABLET (FP) PO SCH (06:17)
[2016-07-16] MEDS: ALBUTEROL SO4 0.083% IH SOL 2.5 MG/3 ML VIAL.NEB. NEB SCH ×3 (06:40→18:10)
[2016-07-16] MEDS: ACETYLCYSTEINE 20% 200MG/ML 4 ML VIAL *FOR ORAL / INH USE ONLY NEB SCH ×3 (06:40→18:10)
[2016-07-16] MEDS ORDERED: HEPARIN NA (PORCINE) 5,000 UNITS/ML 1ML VIAL IVPUSH ONE (09:30)
[2016-07-16] MEDS ORDERED: EPOETIN ALFA 3,000 UNIT, EPOETIN ALFA 4,000 UNIT IVPUSH ONE (09:30)
[2016-07-16 11:08] LABS: MCH 28.2 pg (25.7-33.7); MCHC 31.1 g/dl (32.0-35.9); MEAN CELL VOLUME 90.7 fl (80-96); MEAN PLT VOLUME 10.2 fl (7.5-11.1); PLATELET COUNT 118 K/MM3 (134-434); WHITE BLOOD COUNT 9.5 K/mm3 (4.0-10.0)
[2016-07-16 11:33] LABS: ALBUMIN 2.1 g/dl (3.4-5.0); BILIRUBIN,TOTAL 1.3 mg/dL (0.2-1.0); CALCIUM 8.5 mg/dL (8.5-10.1); COCKROFT - GAULT 18.57; CREATININE 4.8 mg/dL (0.7-1.3); TOT PROT 5.8 g/dl (6.4-8.2)
--- NOTE | 2016-07-16 11:42 | PN ---
Progress Note (short form) - Note Progress Note: PULMONARY/MEDICAL APPEARS CHRONICALLY ILL PRESENTLY RECEIVING HD VSS/AFEBRILE ANICTERIC/VENTI- MASK DISTANT B/L BREATH SOUNDS S1S2 BS+ 1+ EDEMA B/L WRAPPINGS IN PLACE LABS/MEDS/NOTES/IMAGING REVIEWED A/P s/p Acute Respiratory Failure Back/Shoulder Cellulitis/Abscess Septic vs Cardiogenic Shock resolved Acute on Chronic Renal Failure now requiring HD Metabolic Acidosis Acute on Chronic LV Systolic Heart Failure Atrial Fibrillation COPD Atelectasis improving - s/p antibiotic course - HD as per renal team - wound care - O2 to keep SpO2 >90% - BiPAP as needed to assist in work of breathing - aspiration precautions - inhaled bronchodilators - DVT/GI prophylaxis - rehab/PT - can monitor on telemetry Kalyan CRANE MD
[2016-07-16] MEDS: SEVELAMER CARBONATE 0.8 GM POWDER PACKET PO SCH ×3 (11:54→17:02)
[2016-07-16] MEDS: AMINO ACIDS/PROTEIN HYDROLYS 30 ML LIQUID.PKT PO SCH ×2 (11:54→17:02)
[2016-07-16] MEDS: BRIMONIDINE TARTRATE 0.2% OPHTHALMIC 5 ML BOTTLE OU SCH ×2 (12:01→23:09)
[2016-07-16] MEDS: COLLAGENASE CLOSTRIDIUM HIST. 30 GRAMS TUBE TP SCH ×2 (12:01→23:13)
[2016-07-16] MEDS: NYSTATIN/TRIAMCINOLONE TOPICAL CREAM 15 GM TUBE TP SCH ×2 (12:01→23:13)
[2016-07-16] MEDS: BACITRACIN 30 GM TUBE TOPICAL OINTMENT TP SCH ×2 (12:02→23:13)
[2016-07-16] MEDS: VITAMIN B COMP W-C 1 EA TABLET PO SCH (12:03)
[2016-07-16] MEDS: MULTIVITAMINS (DAILY MVI) TABLET (FP) PO SCH (12:03)
[2016-07-16] MEDS: PANTOPRAZOLE 40 MG TABLET (FP) PO SCH (12:03)
[2016-07-16] MEDS: ZINC SULFATE 220 MG CAPSULE (FP) PO SCH (12:03)
[2016-07-16] MEDS: SILVER SULFADIAZINE 1% TOP CREAM 50 GM JAR TP SCH ×2 (12:04→23:14)
[2016-07-16] MEDS: ASCORBIC ACID 250 MG TABLET (FP) PO SCH (12:04)
--- NOTE | 2016-07-16 12:28 | PN ---
Progress Note, Physician History of Present Illness: Pt seen and examined at bedside. He is tolerating HD this far. He is awake and appears comfortable. - Current Medication List Current Medications: Active Medications Acetaminophen (Ofirmev Injection -) 1,000 mg IVPB Q6H PRN PRN Reason: FEVER OR PAIN Acetylcysteine (Mucomyst 20 Oral / Inh Use Only*) 800 mg NEB QIDR [facility] Last Admin: 07/16/16 11:02 Dose: 800 mg Albuterol Sulfate (Ventolin 0.083% Nebulizer Soln -) 1 amp NEB QIDR [facility] Last Admin: 07/16/16 11:03 Dose: 1 amp Amino Acids (Prosource No Carb Liquid Pkt) 30 ml PO BID@0800,1730 [facility] Last Admin: 07/16/16 11:54 Dose: Not Given Ascorbic Acid (Vitamin C -) 250 mg PO DAILY [facility] Last Admin: 07/16/16 12:04 Dose: 250 mg Bacitracin (Bacitracin -) 1 applic TP BID [facility] Last Admin: 07/16/16 12:02 Dose: 1 applic Brimonidine Tartrate (Alphagan 0.2% -) 1 drop OU BID [facility] Last Admin: 07/16/16 12:01 Dose: 1 drop Collagenase (Santyl -) 1 applic TP BID [facility] Last Admin: 07/16/16 12:01 Dose: 1 applic Heparin Sodium (Porcine) (Heparin -) 5,000 unit SQ TID [facility] Last Admin: 07/16/16 06:16 Dose: 5,000 unit Hydromorphone HCl (Dilaudid Injection -) 1 mg IVPB Q6H PRN Insulin Aspart (Novolog Vial Sliding Scale -) 1 vial SQ ACHS [facility] PRN Reason: Protocol Last Admin: 07/16/16 11:55 Dose: Not Given Levothyroxine Sodium (Synthroid -) 50 mcg PO DAILY@0700 [facility] Last Admin: 07/16/16 06:17 Dose: 50 mcg Multivit/Ca Carb/B Cmplx/FA/Prenat (Nephro-Mor -) 1 tablet PO DAILY [facility] Last Admin: 07/16/16 12:03 Dose: 1 tablet Multivitamins/Minerals/Vitamin C (Tab-A-Vit -) 1 tab PO DAILY [facility] Last Admin: 07/16/16 12:03 Dose: 1 tab Nystatin/Triamcinolone Acetonide (Mycolog Ii Cream -) 1 applic TP BID [facility] Last Admin: 07/16/16 12:01 Dose: 1 applic Pantoprazole Sodium (Protonix -) 40 mg PO DAILY [facility] Last Admin: 07/16/16 12:03 Dose: 40 mg Sevelamer Carbonate (Renvela Powder Packet -) 0.8 gm PO TIDCM [facility] Last Admin: 07/16/16 12:02 Dose: Not Given Silver Sulfadiazine (Silvadene -) 1 applic TP BID [facility] Last Admin: 07/16/16 12:04 Dose: 1 applic Zinc Sulfate (Orazinc -) 220 mg PO DAILY [facility] Last Admin: 07/16/16 12:03 Dose: 220 mg - Objective Vital Signs: Vital Signs Temperature 97.4 F L 07/16/16 10:00 Pulse Rate 65 07/16/16 10:30 Respiratory Rate 18 07/16/16 10:30 Blood Pressure 88/67 07/16/16 10:30 O2 Sat by Pulse Oximetry (%) 93 L 07/16/16 10:00 Constitutional: Yes: Calm Eyes: Yes: Conjunctiva Clear HENT: Yes: Atraumatic Neck: Yes: Supple Cardiovascular: Yes: S1, S2 Respiratory: Yes: On Venti-Mask Gastrointestinal: Yes: Soft Genitourinary: Yes: Incontinence Musculoskeletal: Yes: WNL Edema: Yes Edema: LLE: Trace, RLE: Trace Neurological: Yes: Oriented Labs: CBC, BMP 07/16/16 10:00 07/16/16 10:00 INR, PTT INR 1.85 (0.82-1.09) H 06/11/16 05:15 Fibrinogen 405.0 mg/dL (238-498) 06/10/16 04:45 Problem List - Problems (1) Acute hyperkalemia Code(s): E87.5 - HYPERKALEMIA (2) Hyponatremia Code(s): E87.1 - HYPO-OSMOLALITY AND HYPONATREMIA (3) Hypotension Code(s): I95.9 - HYPOTENSION, UNSPECIFIED Qualifiers: Qualified Code(s): I95.89 - Other hypotension (4) Acute on chronic renal failure Code(s): N17.9 - ACUTE KIDNEY FAILURE, UNSPECIFIED N18.9 - CHRONIC KIDNEY DISEASE, UNSPECIFIED (5) Anemia Code(s): D64.9 - ANEMIA, UNSPECIFIED Qualifiers: Qualified Code(s): N18.9 - Chronic kidney disease, unspecified; D63.1 - Anemia in chronic kidney disease (6) COPD (chronic obstructive pulmonary disease) Code(s): J44.9 - CHRONIC OBSTRUCTIVE PULMONARY DISEASE, UNSPECIFIED (7) Congestive heart failure (CHF) Code(s): I50.9 - HEART FAILURE, UNSPECIFIED Qualifiers: Qualified Code(s): I50.22 - Chronic systolic (congestive) heart failure (8) DMII (diabetes mellitus, type 2) Code(s): E11.9 - TYPE 2 DIABETES MELLITUS WITHOUT COMPLICATIONS (9) CKD (chronic kidney disease) Code(s): N18.9 - CHRONIC KIDNEY DISEASE, UNSPECIFIED Assessment/Plan Current Medications Generic Name Dose Route Start Last Admin Trade Name Freq PRN Reason Stop Dose Admin Acetaminophen 1,000 mg 07/15/16 13:36 Ofirmev Injection - IVPB Q6H PRN FEVER OR PAIN Acetylcysteine 800 mg 07/03/16 18:00 07/16/16 11:02 Mucomyst 20 Oral / Inh Use Only* NEB 800 mg QIDR [facility] Administration Albuterol Sulfate 1 amp 07/03/16 18:00 07/16/16 11:03 Ventolin 0.083% Nebulizer Soln - NEB 1 amp QIDR [facility] Administration Amino Acids 30 ml 07/03/16 17:30 07/16/16 11:54 Prosource No Carb Liquid Pkt PO Not Given BID@0800,1730 [facility] Ascorbic Acid 250 mg 07/09/16 10:00 07/16/16 12:04 Vitamin C - PO 250 mg DAILY [facility] Administration Bacitracin 1 applic 07/03/16 22:00 07/16/16 12:02 Bacitracin - TP 1 applic BID [facility] Administration Brimonidine Tartrate 1 drop 07/03/16 22:00 07/16/16 12:01 Alphagan 0.2% - OU 1 drop BID [facility] Administration Collagenase 1 applic 07/03/16 22:00 07/16/16 12:01 Santyl - TP 1 applic BID [facility] Administration Heparin Sodium (Porcine) 5,000 unit 07/10/16 22:00 07/16/16 06:16 Heparin - SQ 5,000 unit TID [facility] Administration Hydromorphone HCl 1 mg 07/14/16 23:06 Dilaudid Injection - IVPB Q6H PRN Insulin Aspart 1 vial 07/03/16 16:30 07/16/16 11:55 Novolog Vial Sliding Scale - SQ Not Given ACHS [facility] Protocol Levothyroxine Sodium 50 mcg 07/05/16 07:00 07/16/16 06:17 Synthroid - PO 50 mcg DAILY@0700 [facility] Administration Multivit/Ca Carb/B Cmplx/FA/Prenat 1 tablet 07/09/16 10:00 07/16/16 12:03 Nephro-Mor - PO 1 tablet DAILY [facility] Administration Multivitamins/Minerals/Vitamin C 1 tab 07/09/16 10:00 07/16/16 12:03 Tab-A-Vit - PO 1 tab DAILY [facility] Administration Nystatin/Triamcinolone Acetonide 1 applic 07/14/16 22:00 07/16/16 12:01 Mycolog Ii Cream - TP 1 applic BID [facility] Administration Pantoprazole Sodium 40 mg 07/08/16 10:00 07/16/16 12:03 Protonix - PO 40 mg DAILY [facility] Administration Sevelamer Carbonate 0.8 gm 07/03/16 17:30 07/16/16 12:02 Renvela Powder Packet - PO Not Given TIDCM [facility] Silver Sulfadiazine 1 applic 07/03/16 22:00 07/16/16 12:04 Silvadene - TP 1 applic BID [facility] Administration Zinc Sulfate 220 mg 07/09/16 10:00 07/16/16 12:03 Orazinc - PO 220 mg DAILY [facility] Administration Impression 1. 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 sepsis with shock 3. cellulitis/abscess of back 4. CHF acute 5. hypothyroidism 6. hyperlipidemia 7. COPD 8. htn 9. a-fib 10. hyponatremia - isoosmolar 11. acute respiratory failure requiring intubation Plan - HD today - cont current meds - cardio follow up - monitor on tele - cont wound care to legs Dr Martinez
--- NOTE | 2016-07-16 15:35 | PN ---
Progress Note, Physician Chief Complaint: afib, hypoxia History of Present Illness: 76 yo male with known CAD, prior MO (mild diffuse prox RCA disease, no intervention), paroxysmal atrial fib/flutter (on Eliquis at home), HFrEF ( severely reduced LV systolic function), HTN, DM, CKD, hyperlipidemia, who was recently hospitalized at [facility] from 05/23-06/02/16 for cellulitis/ abscess of left shoulder and lower extremities, and bacteremia. Now admitted with septic shock, acute on chronic renal failure getting HD, anemia and respiratory failure transiently requiring pressor and inotropic support, extubated with severe compressive atalectasis and evidence of fluid overload. Asked to re-evaluate due to afib with RVR and hypoxia on sedation before surgical debridement. Now comfortable without new complaints. Echo 06/10/16 severe decreased EF, lae santa, mild AI/MR mod tr mild phtn - Current Medication List Current Medications: Active Medications Acetaminophen (Ofirmev Injection -) 1,000 mg IVPB Q6H PRN PRN Reason: FEVER OR PAIN Acetylcysteine (Mucomyst 20 Oral / Inh Use Only*) 800 mg NEB QIDR [facility] Last Admin: 07/16/16 11:02 Dose: 800 mg Albuterol Sulfate (Ventolin 0.083% Nebulizer Soln -) 1 amp NEB QIDR [facility] Last Admin: 07/16/16 11:03 Dose: 1 amp Amino Acids (Prosource No Carb Liquid Pkt) 30 ml PO BID@0800,1730 [facility] Last Admin: 07/16/16 11:54 Dose: Not Given Ascorbic Acid (Vitamin C -) 250 mg PO DAILY [facility] Last Admin: 07/16/16 12:04 Dose: 250 mg Bacitracin (Bacitracin -) 1 applic TP BID [facility] Last Admin: 07/16/16 12:02 Dose: 1 applic Brimonidine Tartrate (Alphagan 0.2% -) 1 drop OU BID [facility] Last Admin: 07/16/16 12:01 Dose: 1 drop Collagenase (Santyl -) 1 applic TP BID [facility] Last Admin: 07/16/16 12:01 Dose: 1 applic Heparin Sodium (Porcine) (Heparin -) 5,000 unit SQ TID [facility] Last Admin: 07/16/16 14:58 Dose: 5,000 unit Hydromorphone HCl (Dilaudid Injection -) 1 mg IVPB Q6H PRN Insulin Aspart (Novolog Vial Sliding Scale -) 1 vial SQ ACHS [facility] PRN Reason: Protocol Last Admin: 07/16/16 11:55 Dose: Not Given Levothyroxine Sodium (Synthroid -) 50 mcg PO DAILY@0700 [facility] Last Admin: 07/16/16 06:17 Dose: 50 mcg Multivit/Ca Carb/B Cmplx/FA/Prenat (Nephro-Mor -) 1 tablet PO DAILY [facility] Last Admin: 07/16/16 12:03 Dose: 1 tablet Multivitamins/Minerals/Vitamin C (Tab-A-Vit -) 1 tab PO DAILY [facility] Last Admin: 07/16/16 12:03 Dose: 1 tab Nystatin/Triamcinolone Acetonide (Mycolog Ii Cream -) 1 applic TP BID [facility] Last Admin: 07/16/16 12:01 Dose: 1 applic Pantoprazole Sodium (Protonix -) 40 mg PO DAILY [facility] Last Admin: 07/16/16 12:03 Dose: 40 mg Sevelamer Carbonate (Renvela Powder Packet -) 0.8 gm PO TIDCM [facility] Last Admin: 07/16/16 12:02 Dose: Not Given Silver Sulfadiazine (Silvadene -) 1 applic TP BID [facility] Last Admin: 07/16/16 12:04 Dose: 1 applic Zinc Sulfate (Orazinc -) 220 mg PO DAILY [facility] Last Admin: 07/16/16 12:03 Dose: 220 mg - Objective Vital Signs: Vital Signs Temperature 97.4 F L 07/16/16 13:39 Pulse Rate 119 H 07/16/16 13:39 Respiratory Rate 20 07/16/16 13:39 Blood Pressure 93/48 07/16/16 13:39 O2 Sat by Pulse Oximetry (%) 93 L 07/16/16 10:00 Constitutional: Yes: No Distress Eyes: Yes: WNL Neck: Yes: Supple Cardiovascular: Yes: Tachycardia, Pulse Irregular Respiratory: Yes: Poor Air Entry Gastrointestinal: Yes: WNL Extremities: Yes: WNL, Cool, Erythema Labs: CBC, BMP 07/16/16 10:00 07/16/16 10:00 INR, PTT INR 1.85 (0.82-1.09) H 06/11/16 05:15 Fibrinogen 405.0 mg/dL (238-498) 06/10/16 04:45 Assessment/Plan HD for fluid removal as tolerated. No need for pressors, keep airways clear with chest PT and suctioning as tolerated. Agree with goals of care discussion. Not a candidate for LVAD/advanced cardiac therapy. continue respiratory support. BP not supporting the use of beta jono and/or NORMAN/ARB in this end stage CHF patient. Hold AC for afib given tenuous status and anemia. Please call us with questions. He is a high risk surgical candidate for any procedures, including low risk procedures, would consider goals of care and risk benefit ratio when planning procedures.
[2016-07-16] MEDS ORDERED: EPOETIN ALFA 10,000 UNIT/1 ML VIAL IVPUSH ONE (16:41)
[2016-07-16] MEDS ORDERED: PT OWN MED DRAWER 7, Y5N ONE (23:02)
[2016-07-17] MEDS: ALBUTEROL SO4 0.083% IH SOL 2.5 MG/3 ML VIAL.NEB. NEB SCH ×4 (00:12→18:33)
[2016-07-17] MEDS: ACETYLCYSTEINE 20% 200MG/ML 4 ML VIAL *FOR ORAL / INH USE ONLY NEB SCH ×4 (00:12→18:33)
[2016-07-17] MEDS: INSULIN SLIDING SCALE (NOVOLOG) 1 VIAL SQ SCH ×4 (06:34→22:41)
[2016-07-17] MEDS: LEVOTHYROXINE NA 50 MCG TABLET (FP) PO SCH (06:42)
[2016-07-17] MEDS: HEPARIN NA (PORCINE) 5,000 UNITS/ML 1ML VIAL SQ SCH ×3 (06:42→22:40)
[2016-07-17] MEDS: MULTIVITAMINS (DAILY MVI) TABLET (FP) PO SCH (10:14)
[2016-07-17] MEDS: VITAMIN B COMP W-C 1 EA TABLET PO SCH (10:14)
[2016-07-17] MEDS: PANTOPRAZOLE 40 MG TABLET (FP) PO SCH (10:14)
[2016-07-17] MEDS: ZINC SULFATE 220 MG CAPSULE (FP) PO SCH (10:14)
[2016-07-17] MEDS: SEVELAMER CARBONATE 0.8 GM POWDER PACKET PO SCH ×3 (10:15→16:46)
[2016-07-17] MEDS: ASCORBIC ACID 250 MG TABLET (FP) PO SCH (10:15)
[2016-07-17] MEDS: NYSTATIN/TRIAMCINOLONE TOPICAL CREAM 15 GM TUBE TP SCH ×2 (10:22→22:41)
[2016-07-17] MEDS: AMINO ACIDS/PROTEIN HYDROLYS 30 ML LIQUID.PKT PO SCH ×2 (10:22→16:46)
[2016-07-17] MEDS: BRIMONIDINE TARTRATE 0.2% OPHTHALMIC 5 ML BOTTLE OU SCH ×2 (10:22→23:38)
--- NOTE | 2016-07-17 13:06 | PN ---
Progress Note (short form) - Note Progress Note: Medical coverage for Dr Dee Awake and responsive. Confused. Currently on [place] O2. Reports some dry cough. Denies CP. Intake & Output 07/14/16 07/15/16 07/16/16 07/17/16 23:59 23:59 23:59 23:59 Intake Total 300 200 100 Balance 300 200 100 Last Vital Signs Temp Pulse Resp BP Pulse Ox 96.7 F L 126 H 20 98/59 93 L 07/17/16 10:00 07/17/16 10:00 07/17/16 10:00 07/17/16 10:00 07/16/16 10:00 Active Medications Acetaminophen (Ofirmev Injection -) 1,000 mg IVPB Q6H PRN PRN Reason: FEVER OR PAIN Acetylcysteine (Mucomyst 20 Oral / Inh Use Only*) 800 mg NEB QIDR [facility] Last Admin: 07/17/16 07:15 Dose: 800 mg Albuterol Sulfate (Ventolin 0.083% Nebulizer Soln -) 1 amp NEB QIDR [facility] Last Admin: 07/17/16 07:15 Dose: 1 amp Amino Acids (Prosource No Carb Liquid Pkt) 30 ml PO BID@0800,1730 [facility] Last Admin: 07/17/16 10:22 Dose: 30 ml Ascorbic Acid (Vitamin C -) 250 mg PO DAILY [facility] Last Admin: 07/17/16 10:15 Dose: 250 mg Bacitracin (Bacitracin -) 1 applic TP BID [facility] Last Admin: 07/16/16 23:13 Dose: 1 applic Brimonidine Tartrate (Alphagan 0.2% -) 1 drop OU BID [facility] Last Admin: 07/17/16 10:22 Dose: 1 drop Collagenase (Santyl -) 1 applic TP BID [facility] Last Admin: 07/16/16 23:13 Dose: 1 applic Heparin Sodium (Porcine) (Heparin -) 5,000 unit SQ TID [facility] Last Admin: 07/17/16 06:42 Dose: 5,000 unit Hydromorphone HCl (Dilaudid Injection -) 1 mg IVPB Q6H PRN Insulin Aspart (Novolog Vial Sliding Scale -) 1 vial SQ ACHS [facility] PRN Reason: Protocol Last Admin: 07/17/16 11:55 Dose: Not Given Levothyroxine Sodium (Synthroid -) 50 mcg PO DAILY@0700 [facility] Last Admin: 07/17/16 06:42 Dose: 50 mcg Multivit/Ca Carb/B Cmplx/FA/Prenat (Nephro-Mor -) 1 tablet PO DAILY [facility] Last Admin: 07/17/16 10:14 Dose: 1 tablet Multivitamins/Minerals/Vitamin C (Tab-A-Vit -) 1 tab PO DAILY [facility] Last Admin: 07/17/16 10:14 Dose: 1 tab Nystatin/Triamcinolone Acetonide (Mycolog Ii Cream -) 1 applic TP BID [facility] Last Admin: 07/17/16 10:22 Dose: 1 applic Pantoprazole Sodium (Protonix -) 40 mg PO DAILY [facility] Last Admin: 07/17/16 10:14 Dose: 40 mg Sevelamer Carbonate (Renvela Powder Packet -) 0.8 gm PO TIDCM [facility] Last Admin: 07/17/16 12:36 Dose: 0.8 gm Silver Sulfadiazine (Silvadene -) 1 applic TP BID [facility] Last Admin: 07/16/16 23:14 Dose: 1 applic Zinc Sulfate (Orazinc -) 220 mg PO DAILY [facility] Last Admin: 07/17/16 10:14 Dose: 220 mg Gen: Awake and responsive, NAD Heart: RRR Lung: scattered rhonchi Abd: soft, nontender Ext: decreasing edema Laboratory Results - last 24 hr 07/16/16 07/16/16 07/17/16 17:00 21:19 06:04 POC Glucometer 148 179 90 07/17/16 11:49 POC Glucometer 104 A/P s/p Acute Respiratory Failure Back/Shoulder Cellulitis/Abscess Septic vs Cardiogenic Shock Acute on Chronic Renal Failure Metabolic Acidosis Acute on Chronic LV Systolic Heart Failure Atrial Fibrillation COPD Hyponatremia Atelectasis improving - VM O2 50% alternating with NIPPV as needed and QHS - HD per renal - s/p antibiotic course - O2 to keep SpO2 >90% - aspiration precautions - inhaled bronchodilators & mucolytics - PO as tolerated - DVT/GI prophylaxis - rehab/PT - OOB to chair if possible Dr Farrell
--- NOTE | 2016-07-17 16:14 | PN ---
Progress Note, Physician History of Present Illness: Pt seen and examined at bedside. He is more awake and alert today. - Current Medication List Current Medications: Active Medications Acetaminophen (Ofirmev Injection -) 1,000 mg IVPB Q6H PRN PRN Reason: FEVER OR PAIN Acetylcysteine (Mucomyst 20 Oral / Inh Use Only*) 800 mg NEB QIDR [facility] Last Admin: 07/17/16 11:05 Dose: 800 mg Albuterol Sulfate (Ventolin 0.083% Nebulizer Soln -) 1 amp NEB QIDR [facility] Last Admin: 07/17/16 11:05 Dose: 1 amp Amino Acids (Prosource No Carb Liquid Pkt) 30 ml PO BID@0800,1730 [facility] Last Admin: 07/17/16 10:22 Dose: 30 ml Ascorbic Acid (Vitamin C -) 250 mg PO DAILY [facility] Last Admin: 07/17/16 10:15 Dose: 250 mg Bacitracin (Bacitracin -) 1 applic TP BID [facility] Last Admin: 07/16/16 23:13 Dose: 1 applic Brimonidine Tartrate (Alphagan 0.2% -) 1 drop OU BID [facility] Last Admin: 07/17/16 10:22 Dose: 1 drop Collagenase (Santyl -) 1 applic TP BID [facility] Last Admin: 07/16/16 23:13 Dose: 1 applic Heparin Sodium (Porcine) (Heparin -) 5,000 unit SQ TID [facility] Last Admin: 07/17/16 15:53 Dose: 5,000 unit Hydromorphone HCl (Dilaudid Injection -) 1 mg IVPB Q6H PRN Insulin Aspart (Novolog Vial Sliding Scale -) 1 vial SQ ACHS [facility] PRN Reason: Protocol Last Admin: 07/17/16 11:55 Dose: Not Given Levothyroxine Sodium (Synthroid -) 50 mcg PO DAILY@0700 [facility] Last Admin: 07/17/16 06:42 Dose: 50 mcg Multivit/Ca Carb/B Cmplx/FA/Prenat (Nephro-Mor -) 1 tablet PO DAILY [facility] Last Admin: 07/17/16 10:14 Dose: 1 tablet Multivitamins/Minerals/Vitamin C (Tab-A-Vit -) 1 tab PO DAILY [facility] Last Admin: 07/17/16 10:14 Dose: 1 tab Nystatin/Triamcinolone Acetonide (Mycolog Ii Cream -) 1 applic TP BID [facility] Last Admin: 07/17/16 10:22 Dose: 1 applic Pantoprazole Sodium (Protonix -) 40 mg PO DAILY [facility] Last Admin: 07/17/16 10:14 Dose: 40 mg Sevelamer Carbonate (Renvela Powder Packet -) 0.8 gm PO TIDCM [facility] Last Admin: 07/17/16 12:36 Dose: 0.8 gm Silver Sulfadiazine (Silvadene -) 1 applic TP BID [facility] Last Admin: 07/16/16 23:14 Dose: 1 applic Zinc Sulfate (Orazinc -) 220 mg PO DAILY [facility] Last Admin: 07/17/16 10:14 Dose: 220 mg - Objective Vital Signs: Vital Signs Temperature 96.7 F L 07/17/16 10:00 Pulse Rate 126 H 07/17/16 10:00 Respiratory Rate 20 07/17/16 10:00 Blood Pressure 98/59 07/17/16 10:00 O2 Sat by Pulse Oximetry (%) 93 L 07/16/16 10:00 Constitutional: Yes: Calm Eyes: Yes: Conjunctiva Clear HENT: Yes: Atraumatic Cardiovascular: Yes: S1, S2 Respiratory: Yes: On Venti-Mask Gastrointestinal: Yes: Soft Genitourinary: Yes: Incontinence Musculoskeletal: Yes: Muscle Weakness Edema: Yes Neurological: Yes: Oriented Labs: CBC, BMP 07/16/16 10:00 07/16/16 10:00 INR, PTT INR 1.85 (0.82-1.09) H 06/11/16 05:15 Fibrinogen 405.0 mg/dL (238-498) 06/10/16 04:45 Problem List - Problems (1) Acute hyperkalemia Code(s): E87.5 - HYPERKALEMIA (2) Hyponatremia Code(s): E87.1 - HYPO-OSMOLALITY AND HYPONATREMIA (3) Hypotension Code(s): I95.9 - HYPOTENSION, UNSPECIFIED Qualifiers: Qualified Code(s): I95.89 - Other hypotension (4) Acute on chronic renal failure Code(s): N17.9 - ACUTE KIDNEY FAILURE, UNSPECIFIED N18.9 - CHRONIC KIDNEY DISEASE, UNSPECIFIED (5) Anemia Code(s): D64.9 - ANEMIA, UNSPECIFIED Qualifiers: Qualified Code(s): N18.9 - Chronic kidney disease, unspecified; D63.1 - Anemia in chronic kidney disease (6) COPD (chronic obstructive pulmonary disease) Code(s): J44.9 - CHRONIC OBSTRUCTIVE PULMONARY DISEASE, UNSPECIFIED (7) Congestive heart failure (CHF) Code(s): I50.9 - HEART FAILURE, UNSPECIFIED Qualifiers: Qualified Code(s): I50.22 - Chronic systolic (congestive) heart failure (8) DMII (diabetes mellitus, type 2) Code(s): E11.9 - TYPE 2 DIABETES MELLITUS WITHOUT COMPLICATIONS (9) CKD (chronic kidney disease) Code(s): N18.9 - CHRONIC KIDNEY DISEASE, UNSPECIFIED Assessment/Plan Current Medications Generic Name Dose Route Start Last Admin Trade Name Freq PRN Reason Stop Dose Admin Acetaminophen 1,000 mg 07/15/16 13:36 Ofirmev Injection - IVPB Q6H PRN FEVER OR PAIN Acetylcysteine 800 mg 07/03/16 18:00 07/17/16 11:05 Mucomyst 20 Oral / Inh Use Only* NEB 800 mg QIDR [facility] Administration Albuterol Sulfate 1 amp 07/03/16 18:00 07/17/16 11:05 Ventolin 0.083% Nebulizer Soln - NEB 1 amp QIDR [facility] Administration Amino Acids 30 ml 07/03/16 17:30 07/17/16 10:22 Prosource No Carb Liquid Pkt PO 30 ml BID@0800,1730 [facility] Administration Ascorbic Acid 250 mg 07/09/16 10:00 07/17/16 10:15 Vitamin C - PO 250 mg DAILY [facility] Administration Bacitracin 1 applic 07/03/16 22:00 07/16/16 23:13 Bacitracin - TP 1 applic BID [facility] Administration Brimonidine Tartrate 1 drop 07/03/16 22:00 07/17/16 10:22 Alphagan 0.2% - OU 1 drop BID [facility] Administration Collagenase 1 applic 07/03/16 22:00 07/16/16 23:13 Santyl - TP 1 applic BID [facility] Administration Heparin Sodium (Porcine) 5,000 unit 07/10/16 22:00 07/17/16 15:53 Heparin - SQ 5,000 unit TID [facility] Administration Hydromorphone HCl 1 mg 07/14/16 23:06 Dilaudid Injection - IVPB Q6H PRN Insulin Aspart 1 vial 07/03/16 16:30 07/17/16 11:55 Novolog Vial Sliding Scale - SQ Not Given ACHS [facility] Protocol Levothyroxine Sodium 50 mcg 07/05/16 07:00 07/17/16 06:42 Synthroid - PO 50 mcg DAILY@0700 [facility] Administration Multivit/Ca Carb/B Cmplx/FA/Prenat 1 tablet 07/09/16 10:00 07/17/16 10:14 Nephro-Mor - PO 1 tablet DAILY [facility] Administration Multivitamins/Minerals/Vitamin C 1 tab 07/09/16 10:00 07/17/16 10:14 Tab-A-Vit - PO 1 tab DAILY [facility] Administration Nystatin/Triamcinolone Acetonide 1 applic 07/14/16 22:00 07/17/16 10:22 Mycolog Ii Cream - TP 1 applic BID [facility] Administration Pantoprazole Sodium 40 mg 07/08/16 10:00 07/17/16 10:14 Protonix - PO 40 mg DAILY [facility] Administration Sevelamer Carbonate 0.8 gm 07/03/16 17:30 07/17/16 12:36 Renvela Powder Packet - PO 0.8 gm TIDCM [facility] Administration Silver Sulfadiazine 1 applic 07/03/16 22:00 07/16/16 23:14 Silvadene - TP 1 applic BID [facility] Administration Zinc Sulfate 220 mg 07/09/16 10:00 07/17/16 10:14 Orazinc - PO 220 mg DAILY [facility] Administration Impression 1. 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 sepsis with shock 3. cellulitis/abscess of back 4. CHF acute 5. hypothyroidism 6. hyperlipidemia 7. COPD 8. htn 9. a-fib 10. hyponatremia - isoosmolar 11. acute respiratory failure requiring intubation Plan - will arrange for HD in am - pt needs PT/rehab - cont one to one feeds - cardio follow up - cont wound care to legs Dr Martinez
[2016-07-17] MEDS: BACITRACIN 30 GM TUBE TOPICAL OINTMENT TP SCH ×2 (18:32→22:41)
[2016-07-17] MEDS: SILVER SULFADIAZINE 1% TOP CREAM 50 GM JAR TP SCH ×2 (18:32→22:42)
[2016-07-17] MEDS: COLLAGENASE CLOSTRIDIUM HIST. 30 GRAMS TUBE TP SCH ×2 (18:32→22:42)
[2016-07-17] MEDS ORDERED: PT OWN MED DRAWER 7, Y5N ONE (23:48)
[2016-07-18] MEDS: ACETYLCYSTEINE 20% 200MG/ML 4 ML VIAL *FOR ORAL / INH USE ONLY NEB SCH ×5 (06:31→23:04)
[2016-07-18] MEDS: ALBUTEROL SO4 0.083% IH SOL 2.5 MG/3 ML VIAL.NEB. NEB SCH ×5 (06:32→23:05)
[2016-07-18] MEDS: LEVOTHYROXINE NA 50 MCG TABLET (FP) PO SCH (06:59)
[2016-07-18] MEDS: HEPARIN NA (PORCINE) 5,000 UNITS/ML 1ML VIAL SQ SCH ×3 (06:59→22:49)
[2016-07-18] MEDS: INSULIN SLIDING SCALE (NOVOLOG) 1 VIAL SQ SCH ×4 (07:00→22:50)
[2016-07-18 07:29] LABS: MCH 28.1 pg (25.7-33.7); MCHC 30.6 g/dl (32.0-35.9); MEAN CELL VOLUME 92.1 fl (80-96); MEAN PLT VOLUME 9.4 fl (7.5-11.1); PLATELET COUNT 125 K/MM3 (134-434); RDW 20.7 % (11.9-15.9); WHITE BLOOD COUNT 9.5 K/mm3 (4.0-10.0)
[2016-07-18 07:57] LABS: ALBUMIN 2.1 g/dl (3.4-5.0); BILIRUBIN,TOTAL 1.4 mg/dL (0.2-1.0); CALCIUM 8.8 mg/dL (8.5-10.1); COCKROFT - GAULT 19.81; CREATININE 4.5 mg/dL (0.7-1.3); TOT PROT 6.2 g/dl (6.4-8.2)
[2016-07-18] MEDS: SEVELAMER CARBONATE 0.8 GM POWDER PACKET PO SCH ×3 (09:00→17:51)
[2016-07-18] MEDS ORDERED: HEPARIN NA (PORCINE) 5,000 UNITS/ML 1ML VIAL IVPUSH ONE (09:30)
[2016-07-18] MEDS: ZINC SULFATE 220 MG CAPSULE (FP) PO SCH ×2 (09:38→13:59)
[2016-07-18] MEDS: ASCORBIC ACID 250 MG TABLET (FP) PO SCH ×2 (09:38→13:59)
[2016-07-18] MEDS: MULTIVITAMINS (DAILY MVI) TABLET (FP) PO SCH ×2 (09:38→13:59)
[2016-07-18] MEDS: VITAMIN B COMP W-C 1 EA TABLET PO SCH (09:38)
[2016-07-18] MEDS: PANTOPRAZOLE 40 MG TABLET (FP) PO SCH ×2 (09:38→13:59)
[2016-07-18] MEDS: AMINO ACIDS/PROTEIN HYDROLYS 30 ML LIQUID.PKT PO SCH ×2 (09:38→17:51)
[2016-07-18] MEDS ORDERED: EPOETIN ALFA 3,000 UNIT, EPOETIN ALFA 4,000 UNIT IVPUSH ONE (10:00)
[2016-07-18] MEDS: BRIMONIDINE TARTRATE 0.2% OPHTHALMIC 5 ML BOTTLE OU SCH ×2 (10:00→22:50)
--- NOTE | 2016-07-18 11:01 | PN ---
Progress Note (short form) - Note Progress Note: PULMONARY/MEDICAL APPEARS CHRONICALLY ILL PRESENTLY RECEIVING HD 90/60/AFEBRILE ANICTERIC/VENTI- MASK/receiving neb DISTANT B/L BREATH SOUNDS S1S2 BS+ 1+ EDEMA B/L WRAPPINGS IN PLACE LABS/MEDS/NOTES/IMAGING REVIEWED A/P s/p Acute Respiratory Failure Back/Shoulder Cellulitis/Abscess Septic vs Cardiogenic Shock resolved Acute on Chronic Renal Failure now requiring HD Metabolic Acidosis Acute on Chronic LV Systolic Heart Failure Atrial Fibrillation COPD Atelectasis improving - s/p antibiotic course - HD as per renal team - wound care - O2 to keep SpO2 >90% - BiPAP as needed to assist in work of breathing - aspiration precautions - inhaled bronchodilators - DVT/GI prophylaxis - rehab/PT - can monitor on telemetry Kalyan CRANE MD
[2016-07-18 11:08] LABS: ANISOCYTOSIS 2+; FRAGMENTED CELL 1+; HYPOCHROMIA 3+; POLYCHROMASIA FEW
[2016-07-18 11:09] LABS: TARGET CELLS 1+
[2016-07-18] MEDS ORDERED: PT OWN MED DRAWER 7, Y5N ONE ×2 (13:58→22:40)
--- NOTE | 2016-07-18 15:43 | PN ---
Progress Note, Physician History of Present Illness: Pt seen and examined at bedside. He is awake and appears comfortable. - Current Medication List Current Medications: Active Medications Acetaminophen (Ofirmev Injection -) 1,000 mg IVPB Q6H PRN PRN Reason: FEVER OR PAIN Acetylcysteine (Mucomyst 20 Oral / Inh Use Only*) 800 mg NEB QIDR [facility] Last Admin: 07/18/16 11:05 Dose: 800 mg Albuterol Sulfate (Ventolin 0.083% Nebulizer Soln -) 1 amp NEB QIDR [facility] Last Admin: 07/18/16 11:05 Dose: 1 amp Amino Acids (Prosource No Carb Liquid Pkt) 30 ml PO BID@0800,1730 [facility] Last Admin: 07/18/16 09:38 Dose: Not Given Ascorbic Acid (Vitamin C -) 250 mg PO DAILY [facility] Last Admin: 07/18/16 13:59 Dose: 250 mg Bacitracin (Bacitracin -) 1 applic TP BID [facility] Last Admin: 07/17/16 22:41 Dose: 1 applic Brimonidine Tartrate (Alphagan 0.2% -) 1 drop OU BID [facility] Last Admin: 07/18/16 10:00 Dose: 1 drop Collagenase (Santyl -) 1 applic TP BID [facility] Last Admin: 07/17/16 22:42 Dose: 1 applic Heparin Sodium (Porcine) (Heparin -) 5,000 unit SQ TID [facility] Last Admin: 07/18/16 13:59 Dose: 5,000 unit Insulin Aspart (Novolog Vial Sliding Scale -) 1 vial SQ ACHS [facility] PRN Reason: Protocol Last Admin: 07/18/16 12:46 Dose: Not Given Levothyroxine Sodium (Synthroid -) 50 mcg PO DAILY@0700 [facility] Last Admin: 07/18/16 06:59 Dose: 50 mcg Multivit/Ca Carb/B Cmplx/FA/Prenat (Nephro-Mor -) 1 tablet PO DAILY [facility] Last Admin: 07/18/16 09:38 Dose: Not Given Multivitamins/Minerals/Vitamin C (Tab-A-Vit -) 1 tab PO DAILY [facility] Last Admin: 07/18/16 13:59 Dose: 1 tab Nystatin/Triamcinolone Acetonide (Mycolog Ii Cream -) 1 applic TP BID [facility] Last Admin: 07/17/16 22:41 Dose: 1 applic Pantoprazole Sodium (Protonix -) 40 mg PO DAILY [facility] Last Admin: 07/18/16 13:59 Dose: 40 mg Sevelamer Carbonate (Renvela Powder Packet -) 0.8 gm PO TIDCM [facility] Last Admin: 07/18/16 13:59 Dose: 0.8 gm Silver Sulfadiazine (Silvadene -) 1 applic TP BID [facility] Last Admin: 07/17/16 22:42 Dose: 1 applic Zinc Sulfate (Orazinc -) 220 mg PO DAILY [facility] Last Admin: 07/18/16 13:59 Dose: 220 mg - Objective Vital Signs: Vital Signs Temperature 98.8 F 07/18/16 09:25 Pulse Rate 66 07/18/16 12:40 Respiratory Rate 18 07/18/16 12:40 Blood Pressure 98/65 07/18/16 12:40 O2 Sat by Pulse Oximetry (%) 93 L 07/16/16 10:00 Constitutional: Yes: Calm Eyes: Yes: Conjunctiva Clear HENT: Yes: Atraumatic Neck: Yes: Supple Cardiovascular: Yes: S1, S2 Respiratory: Yes: CTA Bilaterally, On Venti-Mask Gastrointestinal: Yes: Soft Genitourinary: Yes: Incontinence Musculoskeletal: Yes: Muscle Weakness Edema: LLE: Trace, RLE: Trace Neurological: Yes: Oriented Labs: CBC, BMP 07/18/16 05:40 07/18/16 05:40 INR, PTT INR 1.85 (0.82-1.09) H 06/11/16 05:15 Fibrinogen 405.0 mg/dL (238-498) 06/10/16 04:45 Problem List - Problems (1) Acute hyperkalemia Code(s): E87.5 - HYPERKALEMIA (2) Hyponatremia Code(s): E87.1 - HYPO-OSMOLALITY AND HYPONATREMIA (3) Hypotension Code(s): I95.9 - HYPOTENSION, UNSPECIFIED Qualifiers: Qualified Code(s): I95.89 - Other hypotension (4) Acute on chronic renal failure Code(s): N17.9 - ACUTE KIDNEY FAILURE, UNSPECIFIED N18.9 - CHRONIC KIDNEY DISEASE, UNSPECIFIED (5) Anemia Code(s): D64.9 - ANEMIA, UNSPECIFIED Qualifiers: Qualified Code(s): N18.9 - Chronic kidney disease, unspecified; D63.1 - Anemia in chronic kidney disease (6) COPD (chronic obstructive pulmonary disease) Code(s): J44.9 - CHRONIC OBSTRUCTIVE PULMONARY DISEASE, UNSPECIFIED (7) Congestive heart failure (CHF) Code(s): I50.9 - HEART FAILURE, UNSPECIFIED Qualifiers: Qualified Code(s): I50.22 - Chronic systolic (congestive) heart failure (8) DMII (diabetes mellitus, type 2) Code(s): E11.9 - TYPE 2 DIABETES MELLITUS WITHOUT COMPLICATIONS (9) CKD (chronic kidney disease) Code(s): N18.9 - CHRONIC KIDNEY DISEASE, UNSPECIFIED Assessment/Plan Current Medications Generic Name Dose Route Start Last Admin Trade Name Freq PRN Reason Stop Dose Admin Acetaminophen 1,000 mg 07/15/16 13:36 Ofirmev Injection - IVPB Q6H PRN FEVER OR PAIN Acetylcysteine 800 mg 07/03/16 18:00 07/18/16 11:05 Mucomyst 20 Oral / Inh Use Only* NEB 800 mg QIDR [facility] Administration Albuterol Sulfate 1 amp 07/03/16 18:00 07/18/16 11:05 Ventolin 0.083% Nebulizer Soln - NEB 1 amp QIDR [facility] Administration Amino Acids 30 ml 07/03/16 17:30 07/18/16 09:38 Prosource No Carb Liquid Pkt PO Not Given BID@0800,1730 [facility] Ascorbic Acid 250 mg 07/09/16 10:00 07/18/16 13:59 Vitamin C - PO 250 mg DAILY [facility] Administration Bacitracin 1 applic 07/03/16 22:00 07/17/16 22:41 Bacitracin - TP 1 applic BID [facility] Administration Brimonidine Tartrate 1 drop 07/03/16 22:00 07/18/16 10:00 Alphagan 0.2% - OU 1 drop BID [facility] Administration Collagenase 1 applic 07/03/16 22:00 07/17/16 22:42 Santyl - TP 1 applic BID [facility] Administration Heparin Sodium (Porcine) 5,000 unit 07/10/16 22:00 07/18/16 13:59 Heparin - SQ 5,000 unit TID [facility] Administration Insulin Aspart 1 vial 07/03/16 16:30 07/18/16 12:46 Novolog Vial Sliding Scale - SQ Not Given ACHS [facility] Protocol Levothyroxine Sodium 50 mcg 04/22/17 07:00 07/18/16 06:59 Synthroid - PO 50 mcg DAILY@0700 [facility] Administration Multivit/Ca Carb/B Cmplx/FA/Prenat 1 tablet 07/09/16 10:00 07/18/16 09:38 Nephro-Mor - PO Not Given DAILY [facility] Multivitamins/Minerals/Vitamin C 1 tab 07/09/16 10:00 07/18/16 13:59 Tab-A-Vit - PO 1 tab DAILY [facility] Administration Nystatin/Triamcinolone Acetonide 1 applic 07/14/16 22:00 07/17/16 22:41 Mycolog Ii Cream - TP 1 applic BID [facility] Administration Pantoprazole Sodium 40 mg 07/08/16 10:00 07/18/16 13:59 Protonix - PO 40 mg DAILY [facility] Administration Sevelamer Carbonate 0.8 gm 07/03/16 17:30 07/18/16 13:59 Renvela Powder Packet - PO 0.8 gm TIDCM [facility] Administration Silver Sulfadiazine 1 applic 07/03/16 22:00 07/17/16 22:42 Silvadene - TP 1 applic BID [facility] Administration Zinc Sulfate 220 mg 07/09/16 10:00 07/18/16 13:59 Orazinc - PO 220 mg DAILY [facility] Administration Impression 1. 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 sepsis with shock 3. cellulitis/abscess of back 4. CHF acute 5. hypothyroidism 6. hyperlipidemia 7. COPD 8. htn 9. a-fib 10. hyponatremia - isoosmolar 11. acute respiratory failure requiring intubation Plan - pt tolerated HD today - next HD on Thursday - cont pt/rehab - monitor pulse ox - cont wound care - one to one feeds Dr Martinez
[2016-07-18] MEDS: NYSTATIN/TRIAMCINOLONE TOPICAL CREAM 15 GM TUBE TP SCH ×2 (15:58→22:52)
[2016-07-18] MEDS: BACITRACIN 30 GM TUBE TOPICAL OINTMENT TP SCH ×2 (15:59→22:55)
[2016-07-18] MEDS: SILVER SULFADIAZINE 1% TOP CREAM 50 GM JAR TP SCH ×2 (15:59→22:54)
[2016-07-18] MEDS: COLLAGENASE CLOSTRIDIUM HIST. 30 GRAMS TUBE TP SCH ×2 (15:59→22:53)
[2016-07-18] MEDS ORDERED: EPOETIN ALFA 2,000 UNITS/1 ML VIAL IVPUSH ONE (16:14)
[2016-07-19] MEDS ORDERED: PT OWN MED DRAWER 7, Y5N ONE ×3 (02:06→23:40)
[2016-07-19] MEDS: ALBUTEROL SO4 0.083% IH SOL 2.5 MG/3 ML VIAL.NEB. NEB SCH ×4 (06:40→23:16)
[2016-07-19] MEDS: ACETYLCYSTEINE 20% 200MG/ML 4 ML VIAL *FOR ORAL / INH USE ONLY NEB SCH ×4 (06:40→23:16)
[2016-07-19] MEDS: HEPARIN NA (PORCINE) 5,000 UNITS/ML 1ML VIAL SQ SCH ×3 (06:44→23:26)
[2016-07-19] MEDS: LEVOTHYROXINE NA 50 MCG TABLET (FP) PO SCH (06:44)
[2016-07-19] MEDS: INSULIN SLIDING SCALE (NOVOLOG) 1 VIAL SQ SCH ×3 (06:45→23:23)
[2016-07-19] MEDS: SEVELAMER CARBONATE 0.8 GM POWDER PACKET PO SCH ×3 (09:00→18:03)
--- NOTE | 2016-07-19 10:36 | PN ---
Progress Note (short form) - Note Progress Note: PULMONARY/MEDICAL APPEARS CHRONICALLY ILL 96/54/AFEBRILE ANICTERIC DISTANT B/L BREATH SOUNDS S1S2 BS+ 1+ EDEMA B/L WRAPPINGS IN PLACE LABS/MEDS/NOTES/IMAGING REVIEWED A/P s/p Acute Respiratory Failure Back/Shoulder Cellulitis/Abscess Septic vs Cardiogenic Shock resolved Acute on Chronic Renal Failure now requiring HD Metabolic Acidosis Acute on Chronic LV Systolic Heart Failure Atrial Fibrillation COPD Atelectasis improving - s/p antibiotic course - HD as per renal team - wound care - O2 to keep SpO2 >90% - BiPAP as needed to assist in work of breathing - aspiration precautions - inhaled bronchodilators - DVT/GI prophylaxis - rehab/PT - can monitor on telemetry - repeat cxr Kalyan CRANE MD
--- NOTE | 2016-07-19 10:52 | PN ---
Progress Note, Physician History of Present Illness: IN BED ALERT - Current Medication List Current Medications: Active Medications Acetaminophen (Ofirmev Injection -) 1,000 mg IVPB Q6H PRN PRN Reason: FEVER OR PAIN Acetylcysteine (Mucomyst 20 Oral / Inh Use Only*) 800 mg NEB QIDR [facility] Last Admin: 07/19/16 06:40 Dose: 800 mg Albuterol Sulfate (Ventolin 0.083% Nebulizer Soln -) 1 amp NEB QIDR [facility] Last Admin: 07/19/16 06:40 Dose: 1 amp Amino Acids (Prosource No Carb Liquid Pkt) 30 ml PO BID@0800,1730 [facility] Last Admin: 07/18/16 17:51 Dose: 30 ml Ascorbic Acid (Vitamin C -) 250 mg PO DAILY [facility] Last Admin: 07/18/16 13:59 Dose: 250 mg Bacitracin (Bacitracin -) 1 applic TP BID [facility] Last Admin: 07/18/16 22:55 Dose: 1 applic Brimonidine Tartrate (Alphagan 0.2% -) 1 drop OU BID [facility] Last Admin: 07/18/16 22:50 Dose: 1 drop Collagenase (Santyl -) 1 applic TP BID [facility] Last Admin: 07/18/16 22:53 Dose: 1 applic Heparin Sodium (Porcine) (Heparin -) 5,000 unit SQ TID [facility] Last Admin: 07/19/16 06:44 Dose: 5,000 unit Insulin Aspart (Novolog Vial Sliding Scale -) 1 vial SQ ACHS [facility] PRN Reason: Protocol Last Admin: 07/19/16 06:45 Dose: Not Given Levothyroxine Sodium (Synthroid -) 50 mcg PO DAILY@0700 [facility] Last Admin: 07/19/16 06:44 Dose: 50 mcg Multivit/Ca Carb/B Cmplx/FA/Prenat (Nephro-Mor -) 1 tablet PO DAILY [facility] Last Admin: 07/18/16 09:38 Dose: Not Given Multivitamins/Minerals/Vitamin C (Tab-A-Vit -) 1 tab PO DAILY [facility] Last Admin: 07/18/16 13:59 Dose: 1 tab Nystatin/Triamcinolone Acetonide (Mycolog Ii Cream -) 1 applic TP BID [facility] Last Admin: 07/18/16 22:52 Dose: 1 applic Pantoprazole Sodium (Protonix -) 40 mg PO DAILY [facility] Last Admin: 07/18/16 13:59 Dose: 40 mg Sevelamer Carbonate (Renvela Powder Packet -) 0.8 gm PO TIDCM [facility] Last Admin: 07/18/16 17:51 Dose: 0.8 gm Silver Sulfadiazine (Silvadene -) 1 applic TP BID [facility] Last Admin: 07/18/16 22:54 Dose: 1 applic Zinc Sulfate (Orazinc -) 220 mg PO DAILY [facility] Last Admin: 07/18/16 13:59 Dose: 220 mg - Objective Vital Signs: Vital Signs Temperature 98.2 F 07/19/16 06:00 Pulse Rate 114 H 07/19/16 06:00 Respiratory Rate 20 07/19/16 06:00 Blood Pressure 96/54 07/19/16 06:00 O2 Sat by Pulse Oximetry (%) 93 L 07/16/16 10:00 Cardiovascular: Yes: S1, S2 Respiratory: Yes: Regular, CTA Bilaterally Gastrointestinal: Yes: Normal Bowel Sounds, Soft. No: Tenderness Neurological: Yes: Alert Labs: CBC, BMP 07/18/16 05:40 07/18/16 05:40 INR, PTT INR 1.85 (0.82-1.09) H 06/11/16 05:15 Fibrinogen 405.0 mg/dL (238-498) 06/10/16 04:45 Problem List - Problems (1) Acute on chronic renal failure Code(s): N17.9 - ACUTE KIDNEY FAILURE, UNSPECIFIED N18.9 - CHRONIC KIDNEY DISEASE, UNSPECIFIED (2) COPD (chronic obstructive pulmonary disease) Code(s): J44.9 - CHRONIC OBSTRUCTIVE PULMONARY DISEASE, UNSPECIFIED (3) Congestive heart failure (CHF) Code(s): I50.9 - HEART FAILURE, UNSPECIFIED Qualifiers: Qualified Code(s): I50.22 - Chronic systolic (congestive) heart failure Assessment/Plan s/p Acute Respiratory Failure/COPD O2 to keep SpO2 >90% - BiPAP as needed to assist in work of breathing - aspiration precautions - inhaled bronchodilators Back/Shoulder Cellulitis/Abscess s/p antibiotic course - wound care Acute on Chronic Renal Failure now requiring HD - HD as per renal team Acute on Chronic LV Systolic Heart Failure STABLE ON HD Atrial Fibrillation ON SQ HEPARIN NOT ON FULL ANTICOAGULATION - DVT/GI prophylaxis Orders 04/27/17 22:00 Heparin - 5,000 unit SQ TID
[2016-07-19] MEDS: AMINO ACIDS/PROTEIN HYDROLYS 30 ML LIQUID.PKT PO SCH ×2 (11:17→18:04)
[2016-07-19] MEDS: NYSTATIN/TRIAMCINOLONE TOPICAL CREAM 15 GM TUBE TP SCH ×2 (11:18→23:26)
[2016-07-19] MEDS: BRIMONIDINE TARTRATE 0.2% OPHTHALMIC 5 ML BOTTLE OU SCH ×2 (11:18→23:24)
[2016-07-19] MEDS: BACITRACIN 30 GM TUBE TOPICAL OINTMENT TP SCH ×2 (11:18→23:25)
[2016-07-19] MEDS: ASCORBIC ACID 250 MG TABLET (FP) PO SCH (11:25)
[2016-07-19] MEDS: SILVER SULFADIAZINE 1% TOP CREAM 50 GM JAR TP SCH ×2 (11:25→23:27)
[2016-07-19] MEDS: MULTIVITAMINS (DAILY MVI) TABLET (FP) PO SCH (11:25)
[2016-07-19] MEDS: COLLAGENASE CLOSTRIDIUM HIST. 30 GRAMS TUBE TP SCH ×2 (11:25→23:27)
[2016-07-19] MEDS: VITAMIN B COMP W-C 1 EA TABLET PO SCH (11:26)
[2016-07-19] MEDS: PANTOPRAZOLE 40 MG TABLET (FP) PO SCH (11:26)
[2016-07-19] MEDS: ZINC SULFATE 220 MG CAPSULE (FP) PO SCH (11:26)
--- NOTE | 2016-07-19 12:16 | PN ---
Progress Note (short form) - Note Progress Note: RENAL Last Vital Signs Temp Pulse Resp BP Pulse Ox 98.2 F 114 H 20 96/54 93 L 07/19/16 06:00 07/19/16 06:00 07/19/16 06:00 07/19/16 06:00 07/16/16 10:00 Pt is awake and alert responds to questions makes eye contact has a permcath on left tachycardic decreased breath sounds at bases CBC, BMP 07/18/16 05:40 07/18/16 05:40 Current Medications Generic Name Dose Route Start Last Admin Trade Name Freq PRN Reason Stop Dose Admin Acetaminophen 1,000 mg 07/15/16 13:36 Ofirmev Injection - IVPB Q6H PRN FEVER OR PAIN Acetylcysteine 800 mg 07/03/16 18:00 07/19/16 11:59 Mucomyst 20 Oral / Inh Use Only* NEB 800 mg QIDR [facility] Administration Albuterol Sulfate 1 amp 07/03/16 18:00 07/19/16 11:59 Ventolin 0.083% Nebulizer Soln - NEB 1 amp QIDR [facility] Administration Amino Acids 30 ml 07/03/16 17:30 07/19/16 11:17 Prosource No Carb Liquid Pkt PO 30 ml BID@0800,1730 [facility] Administration Ascorbic Acid 250 mg 07/09/16 10:00 07/19/16 11:25 Vitamin C - PO 250 mg DAILY [facility] Administration Bacitracin 1 applic 07/03/16 22:00 07/19/16 11:18 Bacitracin - TP 1 applic BID [facility] Administration Brimonidine Tartrate 1 drop 07/03/16 22:00 07/19/16 11:18 Alphagan 0.2% - OU 1 drop BID [facility] Administration Collagenase 1 applic 07/03/16 22:00 07/19/16 11:25 Santyl - TP 1 applic BID [facility] Administration Heparin Sodium (Porcine) 5,000 unit 07/10/16 22:00 07/19/16 06:44 Heparin - SQ 5,000 unit TID [facility] Administration Insulin Aspart 1 vial 07/03/16 16:30 07/19/16 06:45 Novolog Vial Sliding Scale - SQ Not Given ACHS [facility] Protocol Levothyroxine Sodium 50 mcg 07/05/16 07:00 07/19/16 06:44 Synthroid - PO 50 mcg DAILY@0700 [facility] Administration Multivit/Ca Carb/B Cmplx/FA/Prenat 1 tablet 07/09/16 10:00 07/19/16 11:26 Nephro-Mor - PO 1 tablet DAILY [facility] Administration Multivitamins/Minerals/Vitamin C 1 tab 07/09/16 10:00 07/19/16 11:25 Tab-A-Vit - PO 1 tab DAILY [facility] Administration Nystatin/Triamcinolone Acetonide 1 applic 07/14/16 22:00 07/19/16 11:18 Mycolog Ii Cream - TP 1 applic BID [facility] Administration Pantoprazole Sodium 40 mg 07/08/16 10:00 07/19/16 11:26 Protonix - PO 40 mg DAILY [facility] Administration Sevelamer Carbonate 0.8 gm 07/03/16 17:30 07/19/16 09:00 Renvela Powder Packet - PO 0.8 gm TIDCM [facility] Administration Silver Sulfadiazine 1 applic 07/03/16 22:00 07/19/16 11:25 Silvadene - TP 1 applic BID [facility] Administration Zinc Sulfate 220 mg 07/09/16 10:00 07/19/16 11:26 Orazinc - PO 220 mg DAILY [facility] Administration Impression 1. CASE on CKD/ESRD on HD- non proteinuric 2. sepsis with shock 3. cellulitis/abscess of back 4. CHF acute 5. hypothyroidism 6. hyperlipidemia 7. COPD 8. htn 9. a-fib 10. hyponatremia - isoosmolar 11. acute respiratory failure requiring intubation Plan - for hd on thursday again - pt needs PT/rehab - cont one to one feeds - cardio follow up - cont wound care to legs MV
[2016-07-20] MEDS ORDERED: INSULIN (NOVOLOG) ASPART 100 UNITS/ML 10ML VIAL ONE (06:26)
[2016-07-20] MEDS: LEVOTHYROXINE NA 50 MCG TABLET (FP) PO SCH (06:34)
[2016-07-20] MEDS: INSULIN SLIDING SCALE (NOVOLOG) 1 VIAL SQ SCH ×4 (06:34→21:56)
[2016-07-20] MEDS: ALBUTEROL SO4 0.083% IH SOL 2.5 MG/3 ML VIAL.NEB. NEB SCH ×4 (06:50→23:48)
[2016-07-20] MEDS: HEPARIN NA (PORCINE) 5,000 UNITS/ML 1ML VIAL SQ SCH ×3 (06:53→21:54)
[2016-07-20] MEDS: ACETYLCYSTEINE 20% 200MG/ML 4 ML VIAL *FOR ORAL / INH USE ONLY NEB SCH ×4 (06:55→23:48)
--- NOTE | 2016-07-20 08:29 | PN ---
Progress Note, Physician Chief Complaint: FAMILY MADE PT DNR ON BIPAP History of Present Illness: IN BED ALERT - Current Medication List Current Medications: Active Medications Acetaminophen (Ofirmev Injection -) 1,000 mg IVPB Q6H PRN PRN Reason: FEVER OR PAIN Acetylcysteine (Mucomyst 20 Oral / Inh Use Only*) 800 mg NEB QIDR [facility] Last Admin: 07/20/16 06:55 Dose: 800 mg Albuterol Sulfate (Ventolin 0.083% Nebulizer Soln -) 1 amp NEB QIDR [facility] Last Admin: 07/20/16 06:50 Dose: 1 amp Amino Acids (Prosource No Carb Liquid Pkt) 30 ml PO BID@0800,1730 [facility] Last Admin: 07/19/16 18:04 Dose: 30 ml Ascorbic Acid (Vitamin C -) 250 mg PO DAILY [facility] Last Admin: 07/19/16 11:25 Dose: 250 mg Bacitracin (Bacitracin -) 1 applic TP BID [facility] Last Admin: 07/19/16 23:25 Dose: 1 applic Brimonidine Tartrate (Alphagan 0.2% -) 1 drop OU BID [facility] Last Admin: 07/19/16 23:24 Dose: 1 drop Collagenase (Santyl -) 1 applic TP BID [facility] Last Admin: 07/19/16 23:27 Dose: 1 applic Heparin Sodium (Porcine) (Heparin -) 5,000 unit SQ TID [facility] Last Admin: 07/20/16 06:53 Dose: 5,000 unit Insulin Aspart (Novolog Vial Sliding Scale -) 1 vial SQ ACHS [facility] PRN Reason: Protocol Last Admin: 07/20/16 06:34 Dose: Not Given Levothyroxine Sodium (Synthroid -) 50 mcg PO DAILY@0700 [facility] Last Admin: 07/20/16 06:34 Dose: Not Given Multivit/Ca Carb/B Cmplx/FA/Prenat (Nephro-Mor -) 1 tablet PO DAILY [facility] Last Admin: 07/19/16 11:26 Dose: 1 tablet Multivitamins/Minerals/Vitamin C (Tab-A-Vit -) 1 tab PO DAILY [facility] Last Admin: 07/19/16 11:25 Dose: 1 tab Nystatin/Triamcinolone Acetonide (Mycolog Ii Cream -) 1 applic TP BID [facility] Last Admin: 07/19/16 23:26 Dose: 1 applic Pantoprazole Sodium (Protonix -) 40 mg PO DAILY [facility] Last Admin: 07/19/16 11:26 Dose: 40 mg Sevelamer Carbonate (Renvela Powder Packet -) 0.8 gm PO TIDCM [facility] Last Admin: 07/19/16 18:03 Dose: 0.8 gm Silver Sulfadiazine (Silvadene -) 1 applic TP BID [facility] Last Admin: 07/19/16 23:27 Dose: 1 applic Zinc Sulfate (Orazinc -) 220 mg PO DAILY [facility] Last Admin: 07/19/16 11:26 Dose: 220 mg - Objective Vital Signs: Vital Signs Temperature 97.5 F L 07/20/16 07:15 Pulse Rate 120 H 07/20/16 07:15 Respiratory Rate 20 07/20/16 07:15 Blood Pressure 90/43 07/20/16 07:15 O2 Sat by Pulse Oximetry (%) 93 L 07/16/16 10:00 Cardiovascular: Yes: S1, S2 Respiratory: Yes: Diminished, Rhonchi Gastrointestinal: Yes: Normal Bowel Sounds, Soft Labs: CBC, BMP 07/18/16 05:40 07/18/16 05:40 INR, PTT INR 1.85 (0.82-1.09) H 06/11/16 05:15 Fibrinogen 405.0 mg/dL (238-498) 06/10/16 04:45 Problem List - Problems (1) Acute on chronic renal failure Code(s): N17.9 - ACUTE KIDNEY FAILURE, UNSPECIFIED N18.9 - CHRONIC KIDNEY DISEASE, UNSPECIFIED (2) COPD (chronic obstructive pulmonary disease) Code(s): J44.9 - CHRONIC OBSTRUCTIVE PULMONARY DISEASE, UNSPECIFIED (3) Congestive heart failure (CHF) Code(s): I50.9 - HEART FAILURE, UNSPECIFIED Qualifiers: Qualified Code(s): I50.22 - Chronic systolic (congestive) heart failure Assessment/Plan s/p Acute Respiratory Failure/COPD O2 to keep SpO2 >90% - BiPAP as needed to assist in work of breathing - aspiration precautions - inhaled bronchodilators Back/Shoulder Cellulitis/Abscess s/p antibiotic course - wound care Acute on Chronic Renal Failure now requiring HD - HD as per renal team Acute on Chronic LV Systolic Heart Failure STABLE ON HD Atrial Fibrillation ON SQ HEPARIN NOT ON FULL ANTICOAGULATION - DVT/GI prophylaxis Orders 07/10/16 22:00 Heparin - 5,000 unit SQ TID DNR
[2016-07-20] MEDS: AMINO ACIDS/PROTEIN HYDROLYS 30 ML LIQUID.PKT PO SCH ×2 (09:46→17:22)
[2016-07-20] MEDS: SEVELAMER CARBONATE 0.8 GM POWDER PACKET PO SCH ×3 (09:47→17:22)
[2016-07-20] MEDS: NYSTATIN/TRIAMCINOLONE TOPICAL CREAM 15 GM TUBE TP SCH ×2 (09:49→21:55)
[2016-07-20] MEDS: COLLAGENASE CLOSTRIDIUM HIST. 30 GRAMS TUBE TP SCH ×2 (09:49→21:57)
[2016-07-20] MEDS: BRIMONIDINE TARTRATE 0.2% OPHTHALMIC 5 ML BOTTLE OU SCH ×2 (09:49→21:54)
[2016-07-20] MEDS: BACITRACIN 30 GM TUBE TOPICAL OINTMENT TP SCH ×2 (09:49→21:56)
[2016-07-20] MEDS: SILVER SULFADIAZINE 1% TOP CREAM 50 GM JAR TP SCH ×2 (09:50→21:55)
[2016-07-20] MEDS: PANTOPRAZOLE 40 MG TABLET (FP) PO SCH (09:50)
[2016-07-20] MEDS: VITAMIN B COMP W-C 1 EA TABLET PO SCH (09:50)
[2016-07-20] MEDS: MULTIVITAMINS (DAILY MVI) TABLET (FP) PO SCH (09:50)
[2016-07-20] MEDS: ZINC SULFATE 220 MG CAPSULE (FP) PO SCH (09:50)
[2016-07-20] MEDS: ASCORBIC ACID 250 MG TABLET (FP) PO SCH (09:51)
--- NOTE | 2016-07-20 10:30 | PN ---
Progress Note (short form) - Note Progress Note: PULMONARY/MEDICAL APPEARS CHRONICALLY ILL RESTING COMFORTABLY ON BIPAP ANICTERIC DISTANT B/L BREATH SOUNDS S1S2 BS+ 1+ EDEMA B/L WRAPPINGS IN PLACE LABS/MEDS/NOTES/IMAGING REVIEWED A/P s/p Acute Respiratory Failure Back/Shoulder Cellulitis/Abscess Septic vs Cardiogenic Shock resolved Acute on Chronic Renal Failure now requiring HD Metabolic Acidosis Acute on Chronic LV Systolic Heart Failure Atrial Fibrillation COPD Atelectasis improving - s/p antibiotic course - HD as per renal team - wound care - O2 to keep SpO2 >90% - BiPAP as needed to assist in work of breathing - aspiration precautions - inhaled bronchodilators - DVT/GI prophylaxis - rehab/PT - can monitor on telemetry - repeat cxr Kalyan CRANE MD
--- NOTE | 2016-07-20 12:39 | PN ---
Progress Note (short form) - Note Progress Note: RENAL Last Vital Signs Temp Pulse Resp BP Pulse Ox 97.6 F 127 H 20 86/61 93 L 07/20/16 09:41 07/20/16 09:41 07/20/16 09:41 07/20/16 09:41 07/16/16 10:00 Pt is on bipap asleep has a permcath on left tachycardic decreased breath sounds at bases no edema noted, has dressings CBC, BMP 07/18/16 05:40 07/18/16 05:40 Current Medications Generic Name Dose Route Start Last Admin Trade Name Freq PRN Reason Stop Dose Admin Acetaminophen 1,000 mg 07/15/16 13:36 Ofirmev Injection - IVPB Q6H PRN FEVER OR PAIN Acetylcysteine 800 mg 07/03/16 18:00 07/19/16 11:59 Mucomyst 20 Oral / Inh Use Only* NEB 800 mg QIDR [facility] Administration Albuterol Sulfate 1 amp 07/03/16 18:00 07/19/16 11:59 Ventolin 0.083% Nebulizer Soln - NEB 1 amp QIDR [facility] Administration Amino Acids 30 ml 07/03/16 17:30 07/19/16 11:17 Prosource No Carb Liquid Pkt PO 30 ml BID@0800,1730 [facility] Administration Ascorbic Acid 250 mg 07/09/16 10:00 07/19/16 11:25 Vitamin C - PO 250 mg DAILY [facility] Administration Bacitracin 1 applic 07/03/16 22:00 07/19/16 11:18 Bacitracin - TP 1 applic BID [facility] Administration Brimonidine Tartrate 1 drop 07/03/16 22:00 07/19/16 11:18 Alphagan 0.2% - OU 1 drop BID [facility] Administration Collagenase 1 applic 07/03/16 22:00 07/19/16 11:25 Santyl - TP 1 applic BID [facility] Administration Heparin Sodium (Porcine) 5,000 unit 07/10/16 22:00 07/19/16 06:44 Heparin - SQ 5,000 unit TID [facility] Administration Insulin Aspart 1 vial 07/03/16 16:30 07/19/16 06:45 Novolog Vial Sliding Scale - SQ Not Given ACHS [facility] Protocol Levothyroxine Sodium 50 mcg 07/05/16 07:00 07/19/16 06:44 Synthroid - PO 50 mcg DAILY@0700 [facility] Administration Multivit/Ca Carb/B Cmplx/FA/Prenat 1 tablet 07/09/16 10:00 07/19/16 11:26 Nephro-Mor - PO 1 tablet DAILY [facility] Administration Multivitamins/Minerals/Vitamin C 1 tab 07/09/16 10:00 07/19/16 11:25 Tab-A-Vit - PO 1 tab DAILY [facility] Administration Nystatin/Triamcinolone Acetonide 1 applic 07/14/16 22:00 07/19/16 11:18 Mycolog Ii Cream - TP 1 applic BID [facility] Administration Pantoprazole Sodium 40 mg 07/08/16 10:00 07/19/16 11:26 Protonix - PO 40 mg DAILY [facility] Administration Sevelamer Carbonate 0.8 gm 07/03/16 17:30 07/19/16 09:00 Renvela Powder Packet - PO 0.8 gm TIDCM [facility] Administration Silver Sulfadiazine 1 applic 07/03/16 22:00 07/19/16 11:25 Silvadene - TP 1 applic BID [facility] Administration Zinc Sulfate 220 mg 07/09/16 10:00 07/19/16 11:26 Orazinc - PO 220 mg DAILY [facility] Administration Impression 1. CASE on CKD/ESRD on HD- non proteinuric 2. sepsis with shock 3. cellulitis/abscess of back 4. CHF acute 5. hypothyroidism 6. hyperlipidemia 7. COPD 8. htn 9. a-fib 10. hyponatremia - isoosmolar 11. acute respiratory failure requiring intubation Plan - for hd on thursday again - pt needs PT/rehab - cont one to one feeds - cardio follow up - cont wound care to legs MV
[2016-07-20] MEDS ORDERED: PT OWN MED DRAWER 7, Y5N ONE (20:39)
[2016-07-21] MEDS: INSULIN SLIDING SCALE (NOVOLOG) 1 VIAL SQ SCH ×4 (06:17→23:31)
[2016-07-21] MEDS: HEPARIN NA (PORCINE) 5,000 UNITS/ML 1ML VIAL SQ SCH ×3 (06:17→23:02)
[2016-07-21] MEDS: LEVOTHYROXINE NA 50 MCG TABLET (FP) PO SCH (06:18)
[2016-07-21] MEDS: ACETYLCYSTEINE 20% 200MG/ML 4 ML VIAL *FOR ORAL / INH USE ONLY NEB SCH ×3 (06:53→18:32)
[2016-07-21] MEDS: ALBUTEROL SO4 0.083% IH SOL 2.5 MG/3 ML VIAL.NEB. NEB SCH ×3 (06:53→18:33)
[2016-07-21] MEDS: SEVELAMER CARBONATE 0.8 GM POWDER PACKET PO SCH ×3 (08:18→19:02)
[2016-07-21] MEDS: AMINO ACIDS/PROTEIN HYDROLYS 30 ML LIQUID.PKT PO SCH ×2 (08:18→19:02)
[2016-07-21] MEDS: BRIMONIDINE TARTRATE 0.2% OPHTHALMIC 5 ML BOTTLE OU SCH ×2 (09:19→23:03)
[2016-07-21] MEDS: NYSTATIN/TRIAMCINOLONE TOPICAL CREAM 15 GM TUBE TP SCH ×2 (10:20→23:20)
--- NOTE | 2016-07-21 10:23 | PN ---
Progress Note, Physician History of Present Illness: Pt seen and examined at bedside. He is awake and appears comfortable. He is on BiPap at the moment. - Current Medication List Current Medications: Active Medications Acetaminophen (Ofirmev Injection -) 1,000 mg IVPB Q6H PRN PRN Reason: FEVER OR PAIN Acetylcysteine (Mucomyst 20 Oral / Inh Use Only*) 800 mg NEB QIDR [facility] Last Admin: 07/21/16 06:53 Dose: 800 mg Albuterol Sulfate (Ventolin 0.083% Nebulizer Soln -) 1 amp NEB QIDR [facility] Last Admin: 07/21/16 06:53 Dose: 1 amp Amino Acids (Prosource No Carb Liquid Pkt) 30 ml PO BID@0800,1730 [facility] Last Admin: 07/20/16 17:22 Dose: Not Given Ascorbic Acid (Vitamin C -) 250 mg PO DAILY [facility] Last Admin: 07/20/16 09:51 Dose: 250 mg Bacitracin (Bacitracin -) 1 applic TP BID [facility] Last Admin: 07/20/16 21:56 Dose: 1 applic Brimonidine Tartrate (Alphagan 0.2% -) 1 drop OU BID [facility] Last Admin: 07/20/16 21:54 Dose: 1 drop Collagenase (Santyl -) 1 applic TP BID [facility] Last Admin: 07/20/16 21:57 Dose: 1 applic Heparin Sodium (Porcine) (Heparin -) 5,000 unit SQ TID [facility] Last Admin: 07/21/16 06:17 Dose: 5,000 unit Insulin Aspart (Novolog Vial Sliding Scale -) 1 vial SQ ACHS [facility] PRN Reason: Protocol Last Admin: 07/21/16 06:17 Dose: Not Given Levothyroxine Sodium (Synthroid -) 50 mcg PO DAILY@0700 [facility] Last Admin: 07/21/16 06:18 Dose: 50 mcg Multivit/Ca Carb/B Cmplx/FA/Prenat (Nephro-Mor -) 1 tablet PO DAILY [facility] Last Admin: 07/20/16 09:50 Dose: 1 tablet Multivitamins/Minerals/Vitamin C (Tab-A-Vit -) 1 tab PO DAILY [facility] Last Admin: 07/20/16 09:50 Dose: 1 tab Nystatin/Triamcinolone Acetonide (Mycolog Ii Cream -) 1 applic TP BID [facility] Last Admin: 07/20/16 21:55 Dose: 1 applic Pantoprazole Sodium (Protonix -) 40 mg PO DAILY [facility] Last Admin: 07/20/16 09:50 Dose: 40 mg Sevelamer Carbonate (Renvela Powder Packet -) 0.8 gm PO TIDCM [facility] Last Admin: 07/20/16 17:22 Dose: Not Given Silver Sulfadiazine (Silvadene -) 1 applic TP BID [facility] Last Admin: 07/20/16 21:55 Dose: 1 applic Zinc Sulfate (Orazinc -) 220 mg PO DAILY [facility] Last Admin: 07/20/16 09:50 Dose: 220 mg - Objective Vital Signs: Vital Signs Temperature 97.9 F 07/21/16 09:00 Pulse Rate 65 07/21/16 09:00 Respiratory Rate 19 07/21/16 09:00 Blood Pressure 88/50 07/21/16 09:00 O2 Sat by Pulse Oximetry (%) 93 L 07/16/16 10:00 Constitutional: Yes: Calm Eyes: Yes: Conjunctiva Clear HENT: Yes: Atraumatic Cardiovascular: Yes: S1, S2 Respiratory: Yes: On BiPap Gastrointestinal: Yes: Soft, Abdomen, Obese Genitourinary: Yes: Incontinence Musculoskeletal: Yes: Muscle Weakness Edema: No Wound/Incision: Yes: Open to air Neurological: Yes: Oriented Labs: CBC, BMP 07/18/16 05:40 07/18/16 05:40 INR, PTT INR 1.85 (0.82-1.09) H 06/11/16 05:15 Fibrinogen 405.0 mg/dL (238-498) 06/10/16 04:45 Problem List - Problems (1) Acute hyperkalemia Code(s): E87.5 - HYPERKALEMIA (2) Hyponatremia Code(s): E87.1 - HYPO-OSMOLALITY AND HYPONATREMIA (3) Hypotension Code(s): I95.9 - HYPOTENSION, UNSPECIFIED Qualifiers: Qualified Code(s): I95.89 - Other hypotension (4) Acute on chronic renal failure Code(s): N17.9 - ACUTE KIDNEY FAILURE, UNSPECIFIED N18.9 - CHRONIC KIDNEY DISEASE, UNSPECIFIED (5) Anemia Code(s): D64.9 - ANEMIA, UNSPECIFIED Qualifiers: Qualified Code(s): N18.9 - Chronic kidney disease, unspecified; D63.1 - Anemia in chronic kidney disease (6) COPD (chronic obstructive pulmonary disease) Code(s): J44.9 - CHRONIC OBSTRUCTIVE PULMONARY DISEASE, UNSPECIFIED (7) Congestive heart failure (CHF) Code(s): I50.9 - HEART FAILURE, UNSPECIFIED Qualifiers: Qualified Code(s): I50.22 - Chronic systolic (congestive) heart failure (8) DMII (diabetes mellitus, type 2) Code(s): E11.9 - TYPE 2 DIABETES MELLITUS WITHOUT COMPLICATIONS (9) CKD (chronic kidney disease) Code(s): N18.9 - CHRONIC KIDNEY DISEASE, UNSPECIFIED Assessment/Plan Current Medications Generic Name Dose Route Start Last Admin Trade Name Freq PRN Reason Stop Dose Admin Acetaminophen 1,000 mg 07/15/16 13:36 Ofirmev Injection - IVPB Q6H PRN FEVER OR PAIN Acetylcysteine 800 mg 07/03/16 18:00 07/21/16 06:53 Mucomyst 20 Oral / Inh Use Only* NEB 800 mg QIDR [facility] Administration Albuterol Sulfate 1 amp 07/21/16 00:00 07/21/16 06:53 Ventolin 0.083% Nebulizer Soln - NEB 1 amp QIDR [facility] Administration Amino Acids 30 ml 07/03/16 17:30 07/20/16 17:22 Prosource No Carb Liquid Pkt PO Not Given BID@0800,1730 [facility] Ascorbic Acid 250 mg 07/09/16 10:00 07/20/16 09:51 Vitamin C - PO 250 mg DAILY [facility] Administration Bacitracin 1 applic 07/03/16 22:00 07/20/16 21:56 Bacitracin - TP 1 applic BID [facility] Administration Brimonidine Tartrate 1 drop 07/03/16 22:00 07/20/16 21:54 Alphagan 0.2% - OU 1 drop BID [facility] Administration Collagenase 1 applic 07/03/16 22:00 07/20/16 21:57 Santyl - TP 1 applic BID [facility] Administration Heparin Sodium (Porcine) 5,000 unit 07/10/16 22:00 07/21/16 06:17 Heparin - SQ 5,000 unit TID [facility] Administration Insulin Aspart 1 vial 07/03/16 16:30 07/21/16 06:17 Novolog Vial Sliding Scale - SQ Not Given ACHS [facility] Protocol Levothyroxine Sodium 50 mcg 07/05/16 07:00 07/21/16 06:18 Synthroid - PO 50 mcg DAILY@0700 [facility] Administration Multivit/Ca Carb/B Cmplx/FA/Prenat 1 tablet 07/09/16 10:00 07/20/16 09:50 Nephro-Mor - PO 1 tablet DAILY [facility] Administration Multivitamins/Minerals/Vitamin C 1 tab 07/09/16 10:00 07/20/16 09:50 Tab-A-Vit - PO 1 tab DAILY [facility] Administration Nystatin/Triamcinolone Acetonide 1 applic 07/14/16 22:00 07/20/16 21:55 Mycolog Ii Cream - TP 1 applic BID [facility] Administration Pantoprazole Sodium 40 mg 07/08/16 10:00 07/20/16 09:50 Protonix - PO 40 mg DAILY [facility] Administration Sevelamer Carbonate 0.8 gm 07/03/16 17:30 07/20/16 17:22 Renvela Powder Packet - PO Not Given TIDCM [facility] Silver Sulfadiazine 1 applic 07/03/16 22:00 07/20/16 21:55 Silvadene - TP 1 applic BID [facility] Administration Zinc Sulfate 220 mg 07/09/16 10:00 07/20/16 09:50 Orazinc - PO 220 mg DAILY [facility] Administration Impression 1. 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 sepsis with shock 3. cellulitis/abscess of back 4. CHF acute 5. hypothyroidism 6. hyperlipidemia 7. COPD 8. htn 9. a-fib 10. hyponatremia - isoosmolar 11. acute respiratory failure requiring intubation Plan - HD today - cont wound care - will order labs - epogen for anemai - oxygen and bipap as needed - one to one feeds Dr Martinez
[2016-07-21] MEDS ORDERED: HEPARIN NA (PORCINE) 5,000 UNITS/ML 1ML VIAL IVPUSH ONE (11:00)
[2016-07-21] MEDS: BACITRACIN 30 GM TUBE TOPICAL OINTMENT TP SCH ×2 (11:20→23:03)
[2016-07-21] MEDS ORDERED: EPOETIN ALFA 10,000 UNIT/1 ML VIAL IVPUSH ONE (12:00)
[2016-07-21 12:10] LABS: MCH 28.2 pg (25.7-33.7); MEAN CELL VOLUME 90.9 fl (80-96); MEAN PLT VOLUME 9.4 fl (7.5-11.1); PLATELET COUNT 93 K/MM3 (134-434); RDW 20.8 % (11.9-15.9)
--- NOTE | 2016-07-21 12:20 | PN ---
Progress Note, Physician History of Present Illness: pulmonary awake on bipap,comfortable,-resp distress - Current Medication List Current Medications: Active Medications Acetaminophen (Ofirmev Injection -) 1,000 mg IVPB Q6H PRN PRN Reason: FEVER OR PAIN Acetylcysteine (Mucomyst 20 Oral / Inh Use Only*) 800 mg NEB QIDR [facility] Last Admin: 07/21/16 11:00 Dose: 800 mg Albuterol Sulfate (Ventolin 0.083% Nebulizer Soln -) 1 amp NEB QIDR [facility] Last Admin: 07/21/16 11:00 Dose: 1 amp Amino Acids (Prosource No Carb Liquid Pkt) 30 ml PO BID@0800,1730 [facility] Last Admin: 07/20/16 17:22 Dose: Not Given Ascorbic Acid (Vitamin C -) 250 mg PO DAILY [facility] Last Admin: 07/20/16 09:51 Dose: 250 mg Bacitracin (Bacitracin -) 1 applic TP BID [facility] Last Admin: 07/20/16 21:56 Dose: 1 applic Brimonidine Tartrate (Alphagan 0.2% -) 1 drop OU BID [facility] Last Admin: 07/20/16 21:54 Dose: 1 drop Collagenase (Santyl -) 1 applic TP BID [facility] Last Admin: 07/20/16 21:57 Dose: 1 applic Heparin Sodium (Porcine) (Heparin -) 5,000 unit SQ TID [facility] Last Admin: 07/21/16 06:17 Dose: 5,000 unit Heparin Sodium (Porcine) (Heparin -) 500 unit IVPUSH Q1H [facility] Stop: 07/21/16 12:31 Insulin Aspart (Novolog Vial Sliding Scale -) 1 vial SQ ACHS [facility] PRN Reason: Protocol Last Admin: 07/21/16 06:17 Dose: Not Given Levothyroxine Sodium (Synthroid -) 50 mcg PO DAILY@0700 [facility] Last Admin: 07/21/16 06:18 Dose: 50 mcg Multivit/Ca Carb/B Cmplx/FA/Prenat (Nephro-Mor -) 1 tablet PO DAILY [facility] Last Admin: 07/20/16 09:50 Dose: 1 tablet Multivitamins/Minerals/Vitamin C (Tab-A-Vit -) 1 tab PO DAILY [facility] Last Admin: 07/20/16 09:50 Dose: 1 tab Nystatin/Triamcinolone Acetonide (Mycolog Ii Cream -) 1 applic TP BID [facility] Last Admin: 07/20/16 21:55 Dose: 1 applic Pantoprazole Sodium (Protonix -) 40 mg PO DAILY [facility] Last Admin: 07/20/16 09:50 Dose: 40 mg Sevelamer Carbonate (Renvela Powder Packet -) 0.8 gm PO TIDCM [facility] Last Admin: 07/20/16 17:22 Dose: Not Given Silver Sulfadiazine (Silvadene -) 1 applic TP BID [facility] Last Admin: 07/20/16 21:55 Dose: 1 applic Zinc Sulfate (Orazinc -) 220 mg PO DAILY [facility] Last Admin: 07/20/16 09:50 Dose: 220 mg - Objective Vital Signs: Vital Signs Temperature 97.9 F 07/21/16 09:00 Pulse Rate 65 07/21/16 09:00 Respiratory Rate 19 07/21/16 09:00 Blood Pressure 88/50 07/21/16 09:00 O2 Sat by Pulse Oximetry (%) 93 L 07/16/16 10:00 Constitutional: Yes: Well Nourished, Calm Eyes: Yes: WNL HENT: Yes: WNL Neck: Yes: WNL Cardiovascular: Yes: Pulse Irregular, S1, S2 Respiratory: Yes: Rhonchi (few scattered eyal rhonchi) Gastrointestinal: Yes: Normal Bowel Sounds, Soft Extremities: Yes: Other (wrapped) Edema: Yes Edema: LLE: Trace, RLE: Trace Labs: INR, PTT INR 1.85 (0.82-1.09) H 06/11/16 05:15 Fibrinogen 405.0 mg/dL (238-498) 06/10/16 04:45 Assessment/Plan ASSESSMENT AND PLAN: s/p Acute Respiratory Failure Back/Shoulder Cellulitis/Abscess Septic vs Cardiogenic Shock resolving Acute on Chronic Renal Failure requiring HD Metabolic Acidosis Acute on Chronic LV Systolic Heart Failure Atrial Fibrillation COPD - HD per renal - O2 to keep SpO2 >90% - aspiration precautions - inhaled bronchodilators with mucolytics - PO as tolerated - DVT/GI prophylaxis - rehab/PT - BIPAP PRN - prognosis poor DR GRACE
[2016-07-21 12:26] LABS: CALCIUM 7.9 mg/dL (8.5-10.1); COCKROFT - GAULT 16.82; CREATININE 5.3 mg/dL (0.7-1.3)
[2016-07-21] MEDS: HEPARIN NA (PORCINE) 5,000 UNITS/ML 1ML VIAL IVPUSH SCH ×3 (13:00→14:47)
[2016-07-21] MEDS: ASCORBIC ACID 250 MG TABLET (FP) PO SCH (14:21)
[2016-07-21] MEDS: COLLAGENASE CLOSTRIDIUM HIST. 30 GRAMS TUBE TP SCH ×2 (14:22→23:20)
[2016-07-21] MEDS: VITAMIN B COMP W-C 1 EA TABLET PO SCH (14:22)
[2016-07-21] MEDS: ZINC SULFATE 220 MG CAPSULE (FP) PO SCH (14:22)
[2016-07-21] MEDS: SILVER SULFADIAZINE 1% TOP CREAM 50 GM JAR TP SCH ×2 (14:22→23:03)
[2016-07-21] MEDS: MULTIVITAMINS (DAILY MVI) TABLET (FP) PO SCH (14:23)
[2016-07-21] MEDS: PANTOPRAZOLE 40 MG TABLET (FP) PO SCH (14:23)
[2016-07-21] MEDS ORDERED: BISACODYL 5 MG TABLET.DR (FP) PO PRN (17:40)
[2016-07-21] MEDS ORDERED: MINERAL OIL ENEMA 133 ML ENEMA PR ONE (17:40)
[2016-07-21] MEDS ORDERED: POLYETHYLENE GLYCOL 3350 119 GM BTL PO SCH (17:45)
--- NOTE | 2016-07-21 22:05 | PN ---
Progress Note, Physician Chief Complaint: AWAKE MORE ALERT ASKING FOR ICE CHIPS - Current Medication List Current Medications: Active Medications Acetaminophen (Ofirmev Injection -) 1,000 mg IVPB Q6H PRN PRN Reason: FEVER OR PAIN Acetylcysteine (Mucomyst 20 Oral / Inh Use Only*) 800 mg NEB QIDR [facility] Last Admin: 07/21/16 18:32 Dose: 800 mg Albuterol Sulfate (Ventolin 0.083% Nebulizer Soln -) 1 amp NEB QIDR [facility] Last Admin: 07/21/16 18:33 Dose: 1 amp Amino Acids (Prosource No Carb Liquid Pkt) 30 ml PO BID@0800,1730 [facility] Last Admin: 07/21/16 19:02 Dose: Not Given Ascorbic Acid (Vitamin C -) 250 mg PO DAILY [facility] Last Admin: 07/21/16 14:21 Dose: 250 mg Bacitracin (Bacitracin -) 1 applic TP BID [facility] Last Admin: 07/21/16 11:20 Dose: 1 applic Bisacodyl (Dulcolax -) 5 mg PO DAILY PRN PRN Reason: CONSTIPATION Brimonidine Tartrate (Alphagan 0.2% -) 1 drop OU BID [facility] Last Admin: 07/21/16 09:19 Dose: 1 drop Collagenase (Santyl -) 1 applic TP BID [facility] Last Admin: 07/21/16 14:22 Dose: 1 applic Heparin Sodium (Porcine) (Heparin -) 5,000 unit SQ TID [facility] Last Admin: 07/21/16 14:23 Dose: 5,000 unit Insulin Aspart (Novolog Vial Sliding Scale -) 1 vial SQ ACHS [facility] PRN Reason: Protocol Last Admin: 07/21/16 17:02 Dose: Not Given Levothyroxine Sodium (Synthroid -) 50 mcg PO DAILY@0700 [facility] Last Admin: 07/21/16 06:18 Dose: 50 mcg Multivit/Ca Carb/B Cmplx/FA/Prenat (Nephro-Mor -) 1 tablet PO DAILY [facility] Last Admin: 07/21/16 14:22 Dose: 1 tablet Multivitamins/Minerals/Vitamin C (Tab-A-Vit -) 1 tab PO DAILY [facility] Last Admin: 07/21/16 14:23 Dose: 1 tab Nystatin/Triamcinolone Acetonide (Mycolog Ii Cream -) 1 applic TP BID [facility] Last Admin: 07/21/16 10:20 Dose: 1 applic Pantoprazole Sodium (Protonix -) 40 mg PO DAILY [facility] Last Admin: 07/21/16 14:23 Dose: 40 mg Polyethylene Glycol (Miralax (For Daily Use) -) 17 gm PO DAILY [facility] Sevelamer Carbonate (Renvela Powder Packet -) 0.8 gm PO TIDCM [facility] Last Admin: 07/21/16 19:02 Dose: Not Given Silver Sulfadiazine (Silvadene -) 1 applic TP BID [facility] Last Admin: 07/21/16 14:22 Dose: 1 applic Zinc Sulfate (Orazinc -) 220 mg PO DAILY [facility] Last Admin: 07/21/16 14:22 Dose: 220 mg - Objective Vital Signs: Vital Signs Temperature 98.0 F 07/21/16 14:00 Pulse Rate 87 07/21/16 15:05 Respiratory Rate 19 07/21/16 15:05 Blood Pressure 91/52 07/21/16 15:05 O2 Sat by Pulse Oximetry (%) 93 L 07/16/16 10:00 Constitutional: Yes: Mild Distress Eyes: Yes: WNL HENT: Yes: WNL Neck: Yes: WNL Cardiovascular: Yes: Pulse Irregular Respiratory: Yes: Diminished, SOB Gastrointestinal: Yes: WNL Genitourinary: Yes: Incontinence, Other Musculoskeletal: Yes: Muscle Weakness Extremities: Yes: Deformity Edema: No Integumentary: Yes: Pressure Ulcer, Rash, Skin Tear, Venous Stasis Changes Wound/Incision: Yes: Dressing Dry and Intact, Draining, Unapproximated Neurological: Yes: Pre-Existing Deficit, Unsteady Gait, Weakness ...Motor Strength: LLE, RLE Psychiatric: Yes: Other Labs: CBC, BMP 07/21/16 11:55 07/21/16 11:55 INR, PTT INR 1.85 (0.82-1.09) H 06/11/16 05:15 Fibrinogen 405.0 mg/dL (238-498) 06/10/16 04:45 Problem List - Problems (1) CKD (chronic kidney disease) Code(s): N18.9 - CHRONIC KIDNEY DISEASE, UNSPECIFIED (2) Hyponatremia Code(s): E87.1 - HYPO-OSMOLALITY AND HYPONATREMIA (3) Hypotension Code(s): I95.9 - HYPOTENSION, UNSPECIFIED Qualifiers: Qualified Code(s): I95.89 - Other hypotension (4) Lung consolidation Code(s): J18.1 - LOBAR PNEUMONIA, UNSPECIFIED ORGANISM (5) Anemia Code(s): D64.9 - ANEMIA, UNSPECIFIED Qualifiers: Qualified Code(s): N18.9 - Chronic kidney disease, unspecified; D63.1 - Anemia in chronic kidney disease (6) Atrial flutter Code(s): I48.92 - UNSPECIFIED ATRIAL FLUTTER (7) Bacteremia Code(s): R78.81 - BACTEREMIA (8) COPD (chronic obstructive pulmonary disease) Code(s): J44.9 - CHRONIC OBSTRUCTIVE PULMONARY DISEASE, UNSPECIFIED (9) DMII (diabetes mellitus, type 2) Code(s): E11.9 - TYPE 2 DIABETES MELLITUS WITHOUT COMPLICATIONS (10) Dyspnea Code(s): R06.00 - DYSPNEA, UNSPECIFIED Qualifiers: Qualified Code(s): R06.02 - Shortness of breath (11) Pressure ulcer of lower extremity, stage 1 Code(s): L89.891 - PRESSURE ULCER OF OTHER SITE, STAGE 1 (12) Sepsis Code(s): A41.9 - SEPSIS, UNSPECIFIED ORGANISM Qualifiers: Qualified Code(s): A41.9 - Sepsis, unspecified organism (13) Weakness of both lower limbs Code(s): M62.81 - MUSCLE WEAKNESS (GENERALIZED) (14) Wound of left shoulder Code(s): S41.002A - UNSPECIFIED OPEN WOUND OF LEFT SHOULDER, INITIAL ENCOUNTER Qualifiers: Qualified Code(s): S41.002D - Unspecified open wound of left shoulder, subsequent encounter (15) Acute respiratory distress Code(s): R06.00 - DYSPNEA, UNSPECIFIED Assessment/Plan DNR/DNI PER [facility] WHEN BED 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
[2016-07-22] MEDS: ACETYLCYSTEINE 20% 200MG/ML 4 ML VIAL *FOR ORAL / INH USE ONLY NEB SCH ×5 (06:45→23:15)
[2016-07-22] MEDS: ALBUTEROL SO4 0.083% IH SOL 2.5 MG/3 ML VIAL.NEB. NEB SCH ×5 (06:45→23:15)
[2016-07-22] MEDS: LEVOTHYROXINE NA 50 MCG TABLET (FP) PO SCH (06:56)
[2016-07-22] MEDS: HEPARIN NA (PORCINE) 5,000 UNITS/ML 1ML VIAL SQ SCH (06:56)
[2016-07-22] MEDS: INSULIN SLIDING SCALE (NOVOLOG) 1 VIAL SQ SCH ×5 (07:12→22:37)
[2016-07-22] MEDS: SEVELAMER CARBONATE 0.8 GM POWDER PACKET PO SCH ×3 (08:14→17:48)
[2016-07-22] MEDS ORDERED: ALTEPLASE 2 MG VIAL CVP ONE ×2 (09:00)
[2016-07-22 11:14] LABS: ARTERIAL BLD GAS O2 SATURATION 86.9 % (90-98.9); ARTERIAL BLOOD GAS BASE EXCESS 2.8 meq/l (-2-2); ARTERIAL BLOOD GAS HCO3 27.3 meq/L (22-26); ARTERIAL BLOOD GAS PO2 57.7 mmHg (70-100)
[2016-07-22 11:15] LABS: ALLENS TEST POSITIVE
[2016-07-22 11:16] LABS: ART PUNCT SITE RIGHT RADIAL; LPM/O2% 21%; PT. ON O2? NO; TYPE OF O2 NASAL CANNULA
--- NOTE | 2016-07-22 12:12 | PN ---
Progress Note, Physician History of Present Illness: PULMONARY ALERT,COMFORTABLE ON NASAL O2,-RESP DISTRESS - Current Medication List Current Medications: Active Medications Acetaminophen (Ofirmev Injection -) 1,000 mg IVPB Q6H PRN PRN Reason: FEVER OR PAIN Acetylcysteine (Mucomyst 20 Oral / Inh Use Only*) 800 mg NEB QIDR [facility] Last Admin: 07/22/16 11:35 Dose: 800 mg Albuterol Sulfate (Ventolin 0.083% Nebulizer Soln -) 1 amp NEB QIDR [facility] Last Admin: 07/22/16 11:35 Dose: 1 amp Amino Acids (Prosource No Carb Liquid Pkt) 30 ml PO BID@0800,1730 [facility] Last Admin: 07/21/16 19:02 Dose: Not Given Ascorbic Acid (Vitamin C -) 250 mg PO DAILY [facility] Last Admin: 07/21/16 14:21 Dose: 250 mg Bacitracin (Bacitracin -) 1 applic TP BID [facility] Last Admin: 07/21/16 23:03 Dose: 1 applic Bisacodyl (Dulcolax -) 5 mg PO DAILY PRN PRN Reason: CONSTIPATION Brimonidine Tartrate (Alphagan 0.2% -) 1 drop OU BID [facility] Last Admin: 07/21/16 23:03 Dose: 1 drop Collagenase (Santyl -) 1 applic TP BID [facility] Last Admin: 07/21/16 23:20 Dose: 1 applic Heparin Sodium (Porcine) (Heparin -) 5,000 unit SQ TID [facility] Last Admin: 07/22/16 06:56 Dose: 5,000 unit Insulin Aspart (Novolog Vial Sliding Scale -) 1 vial SQ ACHS [facility] PRN Reason: Protocol Last Admin: 07/21/16 23:31 Dose: Not Given Levothyroxine Sodium (Synthroid -) 50 mcg PO DAILY@0700 [facility] Last Admin: 07/22/16 06:56 Dose: 50 mcg Multivit/Ca Carb/B Cmplx/FA/Prenat (Nephro-Mor -) 1 tablet PO DAILY [facility] Last Admin: 07/21/16 14:22 Dose: 1 tablet Multivitamins/Minerals/Vitamin C (Tab-A-Vit -) 1 tab PO DAILY [facility] Last Admin: 07/21/16 14:23 Dose: 1 tab Nystatin/Triamcinolone Acetonide (Mycolog Ii Cream -) 1 applic TP BID [facility] Last Admin: 07/21/16 23:20 Dose: 1 applic Pantoprazole Sodium (Protonix -) 40 mg PO DAILY [facility] Last Admin: 07/21/16 14:23 Dose: 40 mg Sevelamer Carbonate (Renvela Powder Packet -) 0.8 gm PO TIDCM [facility] Last Admin: 07/21/16 19:02 Dose: Not Given Silver Sulfadiazine (Silvadene -) 1 applic TP BID [facility] Last Admin: 07/21/16 23:03 Dose: 1 applic Zinc Sulfate (Orazinc -) 220 mg PO DAILY [facility] Last Admin: 07/21/16 14:22 Dose: 220 mg - Objective Vital Signs: Vital Signs Temperature 97.8 F 07/22/16 06:00 Pulse Rate 122 H 07/22/16 06:00 Respiratory Rate 20 07/22/16 06:00 Blood Pressure 123/91 07/22/16 06:00 O2 Sat by Pulse Oximetry (%) 93 L 07/16/16 10:00 Constitutional: Yes: Well Nourished, Calm Eyes: Yes: WNL HENT: Yes: WNL Neck: Yes: WNL Cardiovascular: Yes: Pulse Irregular, S1, S2 Respiratory: Yes: Diminished Gastrointestinal: Yes: Normal Bowel Sounds, Soft Extremities: Yes: Other Edema: Yes Edema: LLE: Trace, RLE: Trace Labs: CBC, BMP 07/21/16 11:55 07/21/16 11:55 INR, PTT INR 1.85 (0.82-1.09) H 06/11/16 05:15 Fibrinogen 405.0 mg/dL (238-498) 06/10/16 04:45 Assessment/Plan ASSESSMENT AND PLAN: s/p Acute Respiratory Failure Back/Shoulder Cellulitis/Abscess Septic vs Cardiogenic Shock resolving Acute on Chronic Renal Failure requiring HD Metabolic Acidosis 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
[2016-07-22] MEDS: AMINO ACIDS/PROTEIN HYDROLYS 30 ML LIQUID.PKT PO SCH ×2 (12:14→17:48)
[2016-07-22] MEDS: BRIMONIDINE TARTRATE 0.2% OPHTHALMIC 5 ML BOTTLE OU SCH ×2 (12:16→22:37)
[2016-07-22] MEDS: BACITRACIN 30 GM TUBE TOPICAL OINTMENT TP SCH ×2 (12:17→23:00)
[2016-07-22] MEDS: NYSTATIN/TRIAMCINOLONE TOPICAL CREAM 15 GM TUBE TP SCH ×2 (12:17→23:30)
[2016-07-22] MEDS: SILVER SULFADIAZINE 1% TOP CREAM 50 GM JAR TP SCH ×2 (12:18→22:38)
[2016-07-22] MEDS: MULTIVITAMINS (DAILY MVI) TABLET (FP) PO SCH (12:18)
[2016-07-22] MEDS: ASCORBIC ACID 250 MG TABLET (FP) PO SCH (12:18)
[2016-07-22] MEDS: VITAMIN B COMP W-C 1 EA TABLET PO SCH (12:18)
[2016-07-22] MEDS: COLLAGENASE CLOSTRIDIUM HIST. 30 GRAMS TUBE TP SCH ×2 (12:19→22:38)
[2016-07-22] MEDS: ZINC SULFATE 220 MG CAPSULE (FP) PO SCH (12:19)
[2016-07-22] MEDS: PANTOPRAZOLE 40 MG TABLET (FP) PO SCH (12:20)
[2016-07-22] MEDS ORDERED: EPOETIN ALFA 2,000 UNITS/1 ML VIAL IVPUSH ONE (19:55)
--- NOTE | 2016-07-22 19:55 | PN ---
Progress Note, Physician History of Present Illness: Pt seen and examined at bedside. He is awake and appears comfortable. - Current Medication List Current Medications: Active Medications Acetaminophen (Ofirmev Injection -) 1,000 mg IVPB Q6H PRN PRN Reason: FEVER OR PAIN Acetylcysteine (Mucomyst 20 Oral / Inh Use Only*) 800 mg NEB QIDR [facility] Last Admin: 07/22/16 18:00 Dose: 800 mg Albuterol Sulfate (Ventolin 0.083% Nebulizer Soln -) 1 amp NEB QIDR [facility] Last Admin: 07/22/16 18:00 Dose: 1 amp Amino Acids (Prosource No Carb Liquid Pkt) 30 ml PO BID@0800,1730 [facility] Last Admin: 07/22/16 17:48 Dose: Not Given Ascorbic Acid (Vitamin C -) 250 mg PO DAILY [facility] Last Admin: 07/22/16 12:18 Dose: 250 mg Bacitracin (Bacitracin -) 1 applic TP BID [facility] Last Admin: 07/22/16 12:17 Dose: 1 applic Bisacodyl (Dulcolax -) 5 mg PO DAILY PRN PRN Reason: CONSTIPATION Brimonidine Tartrate (Alphagan 0.2% -) 1 drop OU BID [facility] Last Admin: 07/22/16 12:16 Dose: 1 drop Collagenase (Santyl -) 1 applic TP BID [facility] Last Admin: 07/22/16 12:19 Dose: 1 applic Insulin Aspart (Novolog Vial Sliding Scale -) 1 vial SQ ACHS [facility] PRN Reason: Protocol Last Admin: 07/22/16 17:48 Dose: Not Given Levothyroxine Sodium (Synthroid -) 50 mcg PO DAILY@0700 [facility] Last Admin: 07/22/16 06:56 Dose: 50 mcg Multivit/Ca Carb/B Cmplx/FA/Prenat (Nephro-Mor -) 1 tablet PO DAILY [facility] Last Admin: 07/22/16 12:18 Dose: 1 tablet Multivitamins/Minerals/Vitamin C (Tab-A-Vit -) 1 tab PO DAILY [facility] Last Admin: 07/22/16 12:18 Dose: 1 tab Nystatin/Triamcinolone Acetonide (Mycolog Ii Cream -) 1 applic TP BID [facility] Last Admin: 07/22/16 12:17 Dose: 1 applic Pantoprazole Sodium (Protonix -) 40 mg PO DAILY [facility] Last Admin: 07/22/16 12:20 Dose: 40 mg Sevelamer Carbonate (Renvela Powder Packet -) 0.8 gm PO TIDCM [facility] Last Admin: 07/22/16 17:48 Dose: Not Given Silver Sulfadiazine (Silvadene -) 1 applic TP BID [facility] Last Admin: 07/22/16 12:18 Dose: 1 applic Zinc Sulfate (Orazinc -) 220 mg PO DAILY [facility] Last Admin: 07/22/16 12:19 Dose: 220 mg - Objective Vital Signs: Vital Signs Temperature 98.7 F 07/22/16 18:14 Pulse Rate 68 07/22/16 18:14 Respiratory Rate 20 07/22/16 18:14 Blood Pressure 83/30 07/22/16 18:14 O2 Sat by Pulse Oximetry (%) 93 L 07/16/16 10:00 Constitutional: Yes: Calm Eyes: Yes: Conjunctiva Clear HENT: Yes: Atraumatic Cardiovascular: Yes: S1, S2 Respiratory: Yes: On Nasal O2, Rhonchi Gastrointestinal: Yes: Soft Genitourinary: Yes: Incontinence Musculoskeletal: Yes: Muscle Weakness Edema: No Neurological: Yes: Oriented Labs: CBC, BMP 07/21/16 11:55 07/21/16 11:55 INR, PTT INR 1.85 (0.82-1.09) H 06/11/16 05:15 Fibrinogen 405.0 mg/dL (238-498) 06/10/16 04:45 Problem List - Problems (1) Acute hyperkalemia Code(s): E87.5 - HYPERKALEMIA (2) Hyponatremia Code(s): E87.1 - HYPO-OSMOLALITY AND HYPONATREMIA (3) Hypotension Code(s): I95.9 - HYPOTENSION, UNSPECIFIED Qualifiers: Qualified Code(s): I95.89 - Other hypotension (4) Acute on chronic renal failure Code(s): N17.9 - ACUTE KIDNEY FAILURE, UNSPECIFIED N18.9 - CHRONIC KIDNEY DISEASE, UNSPECIFIED (5) Anemia Code(s): D64.9 - ANEMIA, UNSPECIFIED Qualifiers: Qualified Code(s): N18.9 - Chronic kidney disease, unspecified; D63.1 - Anemia in chronic kidney disease (6) COPD (chronic obstructive pulmonary disease) Code(s): J44.9 - CHRONIC OBSTRUCTIVE PULMONARY DISEASE, UNSPECIFIED (7) Congestive heart failure (CHF) Code(s): I50.9 - HEART FAILURE, UNSPECIFIED Qualifiers: Qualified Code(s): I50.22 - Chronic systolic (congestive) heart failure (8) DMII (diabetes mellitus, type 2) Code(s): E11.9 - TYPE 2 DIABETES MELLITUS WITHOUT COMPLICATIONS (9) CKD (chronic kidney disease) Code(s): N18.9 - CHRONIC KIDNEY DISEASE, UNSPECIFIED Assessment/Plan Current Medications Generic Name Dose Route Start Last Admin Trade Name Freq PRN Reason Stop Dose Admin Acetaminophen 1,000 mg 07/15/16 13:36 Ofirmev Injection - IVPB Q6H PRN FEVER OR PAIN Acetylcysteine 800 mg 07/03/16 18:00 07/22/16 18:00 Mucomyst 20 Oral / Inh Use Only* NEB 800 mg QIDR [facility] Administration Albuterol Sulfate 1 amp 07/21/16 00:00 07/22/16 18:00 Ventolin 0.083% Nebulizer Soln - NEB 1 amp QIDR [facility] Administration Amino Acids 30 ml 07/03/16 17:30 07/22/16 17:48 Prosource No Carb Liquid Pkt PO Not Given BID@0800,1730 [facility] Ascorbic Acid 250 mg 07/09/16 10:00 07/22/16 12:18 Vitamin C - PO 250 mg DAILY [facility] Administration Bacitracin 1 applic 07/03/16 22:00 07/22/16 12:17 Bacitracin - TP 1 applic BID [facility] Administration Bisacodyl 5 mg 07/21/16 17:40 Dulcolax - PO DAILY PRN CONSTIPATION Brimonidine Tartrate 1 drop 07/03/16 22:00 07/22/16 12:16 Alphagan 0.2% - OU 1 drop BID [facility] Administration Collagenase 1 applic 07/03/16 22:00 07/22/16 12:19 Santyl - TP 1 applic BID [facility] Administration Insulin Aspart 1 vial 07/03/16 16:30 07/22/16 17:48 Novolog Vial Sliding Scale - SQ Not Given ACHS [facility] Protocol Levothyroxine Sodium 50 mcg 07/05/16 07:00 07/22/16 06:56 Synthroid - PO 50 mcg DAILY@0700 [facility] Administration Multivit/Ca Carb/B Cmplx/FA/Prenat 1 tablet 07/09/16 10:00 07/22/16 12:18 Nephro-Mor - PO 1 tablet DAILY [facility] Administration Multivitamins/Minerals/Vitamin C 1 tab 07/09/16 10:00 07/22/16 12:18 Tab-A-Vit - PO 1 tab DAILY [facility] Administration Nystatin/Triamcinolone Acetonide 1 applic 07/14/16 22:00 07/22/16 12:17 Mycolog Ii Cream - TP 1 applic BID [facility] Administration Pantoprazole Sodium 40 mg 07/08/16 10:00 07/22/16 12:20 Protonix - PO 40 mg DAILY [facility] Administration Sevelamer Carbonate 0.8 gm 07/03/16 17:30 07/22/16 17:48 Renvela Powder Packet - PO Not Given TIDCM [facility] Silver Sulfadiazine 1 applic 07/03/16 22:00 07/22/16 12:18 Silvadene - TP 1 applic BID [facility] Administration Zinc Sulfate 220 mg 07/09/16 10:00 07/22/16 12:19 Orazinc - PO 220 mg DAILY [facility] Administration Impression 1. 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 sepsis with shock 3. cellulitis/abscess of back 4. CHF acute 5. hypothyroidism 6. hyperlipidemia 7. COPD 8. htn 9. a-fib 10. hyponatremia - isoosmolar 11. acute respiratory failure requiring intubation Plan - will arrange for HD in am - get cxr in am - monitor pulse ox - cont with epogen - will order labs - cathflow for catheter - oxygen and bipap as needed - one to one feeds Dr Martinez
--- NOTE | 2016-07-22 20:28 | PN ---
Progress Note, Physician Chief Complaint: awake arousable pulling bipap mask off - Current Medication List Current Medications: Active Medications Acetaminophen (Ofirmev Injection -) 1,000 mg IVPB Q6H PRN PRN Reason: FEVER OR PAIN Acetylcysteine (Mucomyst 20 Oral / Inh Use Only*) 800 mg NEB QIDR [facility] Last Admin: 07/22/16 18:00 Dose: 800 mg Albumin Human (Albumin Human 25%) 12.5 gm IVPB Q30M [facility] Albuterol Sulfate (Ventolin 0.083% Nebulizer Soln -) 1 amp NEB QIDR [facility] Last Admin: 07/22/16 18:00 Dose: 1 amp Amino Acids (Prosource No Carb Liquid Pkt) 30 ml PO BID@0800,1730 [facility] Last Admin: 07/22/16 17:48 Dose: Not Given Ascorbic Acid (Vitamin C -) 250 mg PO DAILY [facility] Last Admin: 07/22/16 12:18 Dose: 250 mg Bacitracin (Bacitracin -) 1 applic TP BID [facility] Last Admin: 07/22/16 12:17 Dose: 1 applic Bisacodyl (Dulcolax -) 5 mg PO DAILY PRN PRN Reason: CONSTIPATION Brimonidine Tartrate (Alphagan 0.2% -) 1 drop OU BID [facility] Last Admin: 07/22/16 12:16 Dose: 1 drop Collagenase (Santyl -) 1 applic TP BID [facility] Last Admin: 07/22/16 12:19 Dose: 1 applic Epoetin Wilson (Epogen -) 8,000 units IVPUSH ONCE ONE Stop: 07/22/16 19:56 Heparin Sodium (Porcine) (Heparin -) 1,000 unit IVPUSH ONCE ONE Stop: 07/23/16 19:56 Heparin Sodium (Porcine) (Heparin -) 500 unit IVPUSH Q1H [facility] Stop: 07/23/16 22:01 Insulin Aspart (Novolog Vial Sliding Scale -) 1 vial SQ ACHS [facility] PRN Reason: Protocol Last Admin: 07/22/16 17:48 Dose: Not Given Levothyroxine Sodium (Synthroid -) 50 mcg PO DAILY@0700 [facility] Last Admin: 07/22/16 06:56 Dose: 50 mcg Multivit/Ca Carb/B Cmplx/FA/Prenat (Nephro-Mor -) 1 tablet PO DAILY [facility] Last Admin: 07/22/16 12:18 Dose: 1 tablet Multivitamins/Minerals/Vitamin C (Tab-A-Vit -) 1 tab PO DAILY [facility] Last Admin: 07/22/16 12:18 Dose: 1 tab Nystatin/Triamcinolone Acetonide (Mycolog Ii Cream -) 1 applic TP BID [facility] Last Admin: 07/22/16 12:17 Dose: 1 applic Pantoprazole Sodium (Protonix -) 40 mg PO DAILY [facility] Last Admin: 07/22/16 12:20 Dose: 40 mg Sevelamer Carbonate (Renvela Powder Packet -) 0.8 gm PO TIDCM [facility] Last Admin: 07/22/16 17:48 Dose: Not Given Silver Sulfadiazine (Silvadene -) 1 applic TP BID [facility] Last Admin: 07/22/16 12:18 Dose: 1 applic Zinc Sulfate (Orazinc -) 220 mg PO DAILY [facility] Last Admin: 07/22/16 12:19 Dose: 220 mg - Objective Vital Signs: Vital Signs Temperature 98.7 F 07/22/16 18:14 Pulse Rate 68 07/22/16 18:14 Respiratory Rate 20 07/22/16 18:14 Blood Pressure 83/30 07/22/16 18:14 O2 Sat by Pulse Oximetry (%) 93 L 07/16/16 10:00 Constitutional: Yes: Mild Distress Eyes: Yes: WNL HENT: Yes: WNL Neck: Yes: WNL Cardiovascular: Yes: Pulse Irregular Respiratory: Yes: Diminished, SOB Gastrointestinal: Yes: WNL Musculoskeletal: Yes: Muscle Weakness Extremities: Yes: Deformity Edema: No Peripheral Pulses WNL: Yes Integumentary: Yes: Pressure Ulcer, Skin Tear, Venous Stasis Changes Wound/Incision: Yes: Dressing Dry and Intact, Unapproximated (stage 3 and 4 ulcers to b/l legs and sacral ulcer) Neurological: Yes: Pre-Existing Deficit, Unsteady Gait, Weakness ...Motor Strength: LLE, RLE Psychiatric: Yes: Other Labs: CBC, BMP 07/21/16 11:55 07/21/16 11:55 INR, PTT INR 1.85 (0.82-1.09) H 06/11/16 05:15 Fibrinogen 405.0 mg/dL (238-498) 06/10/16 04:45 Problem List - Problems (1) CKD (chronic kidney disease) Code(s): N18.9 - CHRONIC KIDNEY DISEASE, UNSPECIFIED (2) Hyponatremia Code(s): E87.1 - HYPO-OSMOLALITY AND HYPONATREMIA (3) Hypotension Code(s): I95.9 - HYPOTENSION, UNSPECIFIED Qualifiers: Qualified Code(s): I95.89 - Other hypotension (4) Lung consolidation Code(s): J18.1 - LOBAR PNEUMONIA, UNSPECIFIED ORGANISM (5) Anemia Code(s): D64.9 - ANEMIA, UNSPECIFIED Qualifiers: Qualified Code(s): N18.9 - Chronic kidney disease, unspecified; D63.1 - Anemia in chronic kidney disease (6) Atrial flutter Code(s): I48.92 - UNSPECIFIED ATRIAL FLUTTER (7) Bacteremia Code(s): R78.81 - BACTEREMIA (8) COPD (chronic obstructive pulmonary disease) Code(s): J44.9 - CHRONIC OBSTRUCTIVE PULMONARY DISEASE, UNSPECIFIED (9) DMII (diabetes mellitus, type 2) Code(s): E11.9 - TYPE 2 DIABETES MELLITUS WITHOUT COMPLICATIONS (10) Dyspnea Code(s): R06.00 - DYSPNEA, UNSPECIFIED Qualifiers: Qualified Code(s): R06.02 - Shortness of breath (11) Pressure ulcer of lower extremity, stage 1 Code(s): L89.891 - PRESSURE ULCER OF OTHER SITE, STAGE 1 (12) Sepsis Code(s): A41.9 - SEPSIS, UNSPECIFIED ORGANISM Qualifiers: Qualified Code(s): A41.9 - Sepsis, unspecified organism (13) Weakness of both lower limbs Code(s): M62.81 - MUSCLE WEAKNESS (GENERALIZED) (14) Wound of left shoulder Code(s): S41.002A - UNSPECIFIED OPEN WOUND OF LEFT SHOULDER, INITIAL ENCOUNTER Qualifiers: Qualified Code(s): S41.002D - Unspecified open wound of left shoulder, subsequent encounter (15) Acute respiratory distress Code(s): R06.00 - DYSPNEA, UNSPECIFIED Assessment/Plan [facility] accepted patient for ltac hd in am poor quality of life family aware patient now DNR monitor h/h lower than previous
[2016-07-22] MEDS ORDERED: PT OWN MED DRAWER 7, Y5N ONE (22:21)
[2016-07-22] MEDS ORDERED: INSULIN (NOVOLOG) ASPART 100 UNITS/ML 10ML VIAL ONE (22:22)
[2016-07-23] MEDS: ALBUTEROL SO4 0.083% IH SOL 2.5 MG/3 ML VIAL.NEB. NEB SCH ×2 (06:20→11:30)
[2016-07-23] MEDS: ACETYLCYSTEINE 20% 200MG/ML 4 ML VIAL *FOR ORAL / INH USE ONLY NEB SCH ×2 (06:20→12:17)
[2016-07-23] MEDS: INSULIN SLIDING SCALE (NOVOLOG) 1 VIAL SQ SCH ×2 (06:23→12:10)
[2016-07-23] MEDS: LEVOTHYROXINE NA 50 MCG TABLET (FP) PO SCH (06:26)
[2016-07-23 08:06] LABS: FERRITIN 731.379 ng/ml (16.4-293.9)
[2016-07-23 08:31] LABS: MCH 28.2 pg (25.7-33.7); MCHC 30.3 g/dl (32.0-35.9); MEAN CELL VOLUME 93.1 fl (80-96); PLATELET COUNT 103 K/MM3 (134-434); RDW 22.1 % (11.9-15.9); WHITE BLOOD COUNT 10.8 K/mm3 (4.0-10.0)
[2016-07-23 09:30] LABS: ALBUMIN 2.2 g/dl (3.4-5.0); BILIRUBIN,TOTAL 1.3 mg/dL (0.2-1.0); CALCIUM 8.5 mg/dL (8.5-10.1); COCKROFT - GAULT 17.48; CREATININE 5.1 mg/dL (0.7-1.3)
[2016-07-23] MEDS ORDERED: EPOETIN ALFA 6,000 UNIT, EPOETIN ALFA 2,000 UNIT IVPUSH ONE (10:00)
[2016-07-23] MEDS: ALBUMIN HUMAN 25% 12.5 GM/50 ML VIAL IVPB SCH ×4 (10:00→11:30)
[2016-07-23] MEDS ORDERED: HEPARIN NA (PORCINE) 5,000 UNITS/ML 1ML VIAL IVPUSH ONE (10:00)
[2016-07-23] MEDS: PANTOPRAZOLE 40 MG TABLET (FP) PO SCH (11:14)
[2016-07-23] MEDS: SEVELAMER CARBONATE 0.8 GM POWDER PACKET PO SCH ×2 (11:14→13:09)
[2016-07-23] MEDS: AMINO ACIDS/PROTEIN HYDROLYS 30 ML LIQUID.PKT PO SCH (11:14)
[2016-07-23] MEDS: MULTIVITAMINS (DAILY MVI) TABLET (FP) PO SCH (11:14)
[2016-07-23] MEDS: VITAMIN B COMP W-C 1 EA TABLET PO SCH (11:15)
[2016-07-23] MEDS: ZINC SULFATE 220 MG CAPSULE (FP) PO SCH (11:15)
[2016-07-23] MEDS: ASCORBIC ACID 250 MG TABLET (FP) PO SCH (11:15)
[2016-07-23] MEDS: BACITRACIN 30 GM TUBE TOPICAL OINTMENT TP SCH (11:16)
[2016-07-23] MEDS: COLLAGENASE CLOSTRIDIUM HIST. 30 GRAMS TUBE TP SCH (11:16)
[2016-07-23] MEDS: SILVER SULFADIAZINE 1% TOP CREAM 50 GM JAR TP SCH (11:17)
[2016-07-23] MEDS: NYSTATIN/TRIAMCINOLONE TOPICAL CREAM 15 GM TUBE TP SCH (11:17)
[2016-07-23] MEDS: BRIMONIDINE TARTRATE 0.2% OPHTHALMIC 5 ML BOTTLE OU SCH (11:17)
[2016-07-23 11:20] VITALS: BP 91/50; PULSE 68
--- NOTE | 2016-07-23 11:23 | DS ---
Physical Examination Vital Signs: Vital Signs Temperature 97.3 F L 07/23/16 07:00 Pulse Rate 68 07/23/16 10:15 Respiratory Rate 18 07/23/16 10:15 Blood Pressure 91/50 07/23/16 10:15 O2 Sat by Pulse Oximetry (%) 94 L 07/23/16 02:51 Eyes: Yes: WNL HENT: Yes: WNL Neck: Yes: WNL Cardiovascular: Yes: Pulse Irregular Respiratory: Yes: On Nasal O2, Other Gastrointestinal: Yes: WNL Renal/: Yes: Incontinence Musculoskeletal: Yes: Muscle Weakness Extremities: Yes: Deformity Edema: No Peripheral Pulses WNL: Yes Integumentary: Yes: Pressure Ulcer, Skin Tear, Other Wound/Incision: Yes: Dressing Dry and Intact, Draining Neurological: Yes: Lethargy, Paresthesia, Pre-Existing Deficit, Unsteady Gait, Weakness ...Motor Strength: LLE, RLE Psychiatric: Yes: Other Labs: CBC, BMP 07/23/16 06:00 07/23/16 06:00 Discharge Summary Reason For Visit: HYPONATREMIA HYPOTHERMIA SEPSIS Current Active Problems Acute hyperkalemia (Acute) Acute respiratory distress (Acute) Bradycardia (Acute) CKD (chronic kidney disease) (Acute) Hypoalbuminemia (Acute) Hyponatremia (Acute) Hypotension (Acute) Lung consolidation (Acute) MRSA (methicillin resistant staph aureus) culture positive (Acute) Procedures: Principal: DIALYSIS Other Procedures: LABS/CX/CT SCANS Hospital Course: ADMITTED WITH CHF ACUTE ON CHRONIC /COPD ACUTE ON CHRONIC/ESRD ON HD/SACRAL STAGE 4 AND LEG B/L ULCERS/WOUND CRE SEPSIS ON IV ABX, HD, DIURESIS, IN ICU THEN TELEMETRY NOW GOING TO [facility] Condition: Poor - Instructions Diet, Activity, Other Instructions: DYSPHAGIA PUREE DIABETIC/LOW SODIUM SOFT Referrals: Robert [place] [Primary Care Provider] - Disposition: [facility] - Home Medications Comprehensive Discharge Medication List: Ambulatory Orders Acetaminophen [Tylenol .Regular Strength -] 650 mg PO Q6H PRN #0 tablet Albuterol 2.5/Ipratropium 0.5 [Duoneb -] 1 amp NEB Q6H PRN #0 amp 04/18/16 Ascorbic Acid [Vitamin C -] 500 mg PO DAILY tablet 04/18/16 Brimonidine Tartrate [Alphagan 0.2% -] 1 drop OU BID drops 04/18/16 Folic Acid - 1 mg PO DAILY tablet 04/18/16 Insulin Sliding Scale [Novolog Vial Sliding Scale -] 1 vial SQ ACHS units 04/18 Levothyroxine [Synthroid -] 50 mcg PO DAILY@0700 tablet 04/18/16 Metoprolol Succinate [Toprol XL -] 25 mg PO BID tab.sr.24h 04/18/16 Torsemide [Demadex -] 40 mg PO DAILY tablet 04/18/16 Zinc Sulfate [Orazinc -] 220 mg PO DAILY capsule 04/18/16 Collagenase Clostridium Hist. [Santyl -] 1 applic TP DAILY tube 06/02/16 Diphenhydramine HCl [Benadryl Capsule -] 25 mg PO HS PRN #0 06/02/16 Insulin Sliding Scale [Novolog Vial Sliding Scale -] 1 vial SQ ACHS units 06/02 Tamsulosin HCl [Flomax -] 0.4 mg PO HS 06/02/16 Torsemide [Demadex -] 40 mg PO DAILY tablet 06/02/16 Albuterol 0.083% Nebulizer Joy [Ventolin 0.083% Nebulizer Soln -] 1 amp NEB QIDR amp 07/08/16 Amino Acids/Protein Hydrolys [Prosource No Carb Liquid Pkt] 30 ml PO BID@0800, 1730 packet 07/08/16 Bacitracin - [Bacitracin Topical Ointment -] 1 applic TP BID tube 07/08/16 Heparin - 5,000 unit SQ TID vial 07/08/16 Insulin Sliding Scale [Novolog Vial Sliding Scale -] 1 vial SQ ACHS units 07/08 Levothyroxine [Synthroid -] 50 mcg PO DAILY@0700 tablet 07/08/16 Albuterol 0.083% Nebulizer Joy [Ventolin 0.083% Nebulizer Soln -] 1 amp NEB QIDR amp 07/23/16 Ascorbic Acid [Vitamin C -] 250 mg PO DAILY tablet 07/23/16 Multivitamins [Multivit ([facility])] 1 tab PO DAILY tab 07/23/16 Nystatin/Triamcinolone Top Cr [Mycolog II -] 1 applic TP BID applic 07/23/16 Vitamin B Comp W-C [Nephro-Mor -] 1 tablet PO DAILY tablet 07/23/16
[2016-07-23] MEDS: HEPARIN NA (PORCINE) 5,000 UNITS/ML 1ML VIAL IVPUSH SCH ×2 (12:00→12:48)
[2016-07-23] MEDS ORDERED: EPOETIN ALFA 2,000 UNITS/1 ML VIAL IVPUSH ONE (12:00)
[2016-07-23 12:37] VITALS: TEMP 98.2
--- NOTE | 2016-07-23 13:00 | PN ---
Progress Note, Physician History of Present Illness: Pt seen and examined at bedside. He is awake and appears comfortable. - Current Medication List Current Medications: Active Medications Acetaminophen (Ofirmev Injection -) 1,000 mg IVPB Q6H PRN PRN Reason: FEVER OR PAIN Acetylcysteine (Mucomyst 20 Oral / Inh Use Only*) 800 mg NEB QIDR [facility] Last Admin: 07/23/16 12:17 Dose: 800 mg Albuterol Sulfate (Ventolin 0.083% Nebulizer Soln -) 1 amp NEB QIDR [facility] Last Admin: 07/23/16 11:30 Dose: 1 amp Amino Acids (Prosource No Carb Liquid Pkt) 30 ml PO BID@0800,1730 [facility] Last Admin: 07/23/16 11:14 Dose: 30 ml Ascorbic Acid (Vitamin C -) 250 mg PO DAILY [facility] Last Admin: 07/23/16 11:15 Dose: 250 mg Bacitracin (Bacitracin -) 1 applic TP BID [facility] Last Admin: 07/23/16 11:16 Dose: 1 applic Bisacodyl (Dulcolax -) 5 mg PO DAILY PRN PRN Reason: CONSTIPATION Brimonidine Tartrate (Alphagan 0.2% -) 1 drop OU BID [facility] Last Admin: 07/23/16 11:17 Dose: 1 drop Collagenase (Santyl -) 1 applic TP BID [facility] Last Admin: 07/23/16 11:16 Dose: 1 applic Heparin Sodium (Porcine) (Heparin -) 500 unit IVPUSH Q1H [facility] Stop: 07/23/16 14:01 Last Admin: 07/23/16 12:48 Dose: 500 unit Insulin Aspart (Novolog Vial Sliding Scale -) 1 vial SQ ACHS [facility] PRN Reason: Protocol Last Admin: 07/23/16 12:10 Dose: Not Given Levothyroxine Sodium (Synthroid -) 50 mcg PO DAILY@0700 [facility] Last Admin: 07/23/16 06:26 Dose: 50 mcg Multivit/Ca Carb/B Cmplx/FA/Prenat (Nephro-Mor -) 1 tablet PO DAILY [facility] Last Admin: 07/23/16 11:15 Dose: 1 tablet Multivitamins/Minerals/Vitamin C (Tab-A-Vit -) 1 tab PO DAILY [facility] Last Admin: 07/23/16 11:14 Dose: 1 tab Nystatin/Triamcinolone Acetonide (Mycolog Ii Cream -) 1 applic TP BID [facility] Last Admin: 07/23/16 11:17 Dose: 1 applic Pantoprazole Sodium (Protonix -) 40 mg PO DAILY [facility] Last Admin: 07/23/16 11:14 Dose: 40 mg Sevelamer Carbonate (Renvela Powder Packet -) 0.8 gm PO TIDCM [facility] Last Admin: 07/23/16 11:14 Dose: 0.8 gm Silver Sulfadiazine (Silvadene -) 1 applic TP BID [facility] Last Admin: 07/23/16 11:17 Dose: 1 applic Zinc Sulfate (Orazinc -) 220 mg PO DAILY [facility] Last Admin: 07/23/16 11:15 Dose: 220 mg - Objective Vital Signs: Vital Signs Temperature 98.2 F 07/23/16 10:00 Pulse Rate 68 07/23/16 10:15 Respiratory Rate 18 07/23/16 10:15 Blood Pressure 91/50 07/23/16 10:15 O2 Sat by Pulse Oximetry (%) 98 07/23/16 10:00 Constitutional: Yes: Calm Eyes: Yes: Conjunctiva Clear HENT: Yes: Atraumatic Cardiovascular: Yes: S1, S2 Respiratory: Yes: On Nasal O2 Gastrointestinal: Yes: Soft Genitourinary: Yes: Incontinence Musculoskeletal: Yes: Muscle Weakness Edema: Yes Edema: LLE: Trace, RLE: Trace Neurological: Yes: Oriented Labs: CBC, BMP 07/23/16 06:00 07/23/16 06:00 INR, PTT INR 1.85 (0.82-1.09) H 06/11/16 05:15 Fibrinogen 405.0 mg/dL (238-498) 06/10/16 04:45 Problem List - Problems (1) Acute hyperkalemia Code(s): E87.5 - HYPERKALEMIA (2) Hyponatremia Code(s): E87.1 - HYPO-OSMOLALITY AND HYPONATREMIA (3) Hypotension Code(s): I95.9 - HYPOTENSION, UNSPECIFIED Qualifiers: Qualified Code(s): I95.89 - Other hypotension (4) Acute on chronic renal failure Code(s): N17.9 - ACUTE KIDNEY FAILURE, UNSPECIFIED N18.9 - CHRONIC KIDNEY DISEASE, UNSPECIFIED (5) Anemia Code(s): D64.9 - ANEMIA, UNSPECIFIED Qualifiers: Qualified Code(s): N18.9 - Chronic kidney disease, unspecified; D63.1 - Anemia in chronic kidney disease (6) COPD (chronic obstructive pulmonary disease) Code(s): J44.9 - CHRONIC OBSTRUCTIVE PULMONARY DISEASE, UNSPECIFIED (7) Congestive heart failure (CHF) Code(s): I50.9 - HEART FAILURE, UNSPECIFIED Qualifiers: Qualified Code(s): I50.22 - Chronic systolic (congestive) heart failure (8) DMII (diabetes mellitus, type 2) Code(s): E11.9 - TYPE 2 DIABETES MELLITUS WITHOUT COMPLICATIONS (9) CKD (chronic kidney disease) Code(s): N18.9 - CHRONIC KIDNEY DISEASE, UNSPECIFIED Assessment/Plan Current Medications Generic Name Dose Route Start Last Admin Trade Name Freq PRN Reason Stop Dose Admin Acetaminophen 1,000 mg 07/15/16 13:36 Ofirmev Injection - IVPB Q6H PRN FEVER OR PAIN Acetylcysteine 800 mg 07/03/16 18:00 07/23/16 12:17 Mucomyst 20 Oral / Inh Use Only* NEB 800 mg QIDR [facility] Administration Albuterol Sulfate 1 amp 07/21/16 00:00 07/23/16 11:30 Ventolin 0.083% Nebulizer Soln - NEB 1 amp QIDR [facility] Administration Amino Acids 30 ml 07/03/16 17:30 07/23/16 11:14 Prosource No Carb Liquid Pkt PO 30 ml BID@0800,1730 [facility] Administration Ascorbic Acid 250 mg 07/09/16 10:00 07/23/16 11:15 Vitamin C - PO 250 mg DAILY [facility] Administration Bacitracin 1 applic 07/03/16 22:00 07/23/16 11:16 Bacitracin - TP 1 applic BID [facility] Administration Bisacodyl 5 mg 07/21/16 17:40 Dulcolax - PO DAILY PRN CONSTIPATION Brimonidine Tartrate 1 drop 07/03/16 22:00 07/23/16 11:17 Alphagan 0.2% - OU 1 drop BID [facility] Administration Collagenase 1 applic 07/03/16 22:00 07/23/16 11:16 Santyl - TP 1 applic BID [facility] Administration Heparin Sodium (Porcine) 500 unit 07/23/16 12:00 07/23/16 12:48 Heparin - IVPUSH 07/23/16 14:01 500 unit Q1H [facility] Administration Insulin Aspart 1 vial 07/03/16 16:30 07/23/16 12:10 Novolog Vial Sliding Scale - SQ Not Given ACHS [facility] Protocol Levothyroxine Sodium 50 mcg 07/05/16 07:00 07/23/16 06:26 Synthroid - PO 50 mcg DAILY@0700 [facility] Administration Multivit/Ca Carb/B Cmplx/FA/Prenat 1 tablet 07/09/16 10:00 07/23/16 11:15 Nephro-Mor - PO 1 tablet DAILY [facility] Administration Multivitamins/Minerals/Vitamin C 1 tab 07/09/16 10:00 07/23/16 11:14 Tab-A-Vit - PO 1 tab DAILY [facility] Administration Nystatin/Triamcinolone Acetonide 1 applic 07/14/16 22:00 07/23/16 11:17 Mycolog Ii Cream - TP 1 applic BID [facility] Administration Pantoprazole Sodium 40 mg 07/08/16 10:00 07/23/16 11:14 Protonix - PO 40 mg DAILY [facility] Administration Sevelamer Carbonate 0.8 gm 07/03/16 17:30 07/23/16 11:14 Renvela Powder Packet - PO 0.8 gm TIDCM [facility] Administration Silver Sulfadiazine 1 applic 07/03/16 22:00 07/23/16 11:17 Silvadene - TP 1 applic BID [facility] Administration Zinc Sulfate 220 mg 07/09/16 10:00 07/23/16 11:15 Orazinc - PO 220 mg DAILY [facility] Administration Impression 1. 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 sepsis with shock 3. cellulitis/abscess of back 4. CHF acute 5. hypothyroidism 6. hyperlipidemia 7. COPD 8. htn 9. a-fib 10. hyponatremia - isoosmolar 11. acute respiratory failure requiring intubation Plan - HD today, pt tolerated - pt is being discharged to [facility] with on site HD - cont current meds - central line removed today - will need fistula once more stable - oxygen and bipap as needed - one to one feeds Dr Martinez
--- NOTE | 2016-07-23 15:55 | ETH ---
Ethics Committee Report: Ethics consult requested on July 11, at 10:[address] Davin Dee to discuss difference of wishes between those expressed by the patient to his doctor during the course of his care and those of his niece and healthcare proxy. Consult delayed as niece worked with continuing care to locate an LTACH or halfway that would take her uncle under their care. When one was found , the patient was discharged there. I called the niece to wish them well and said if her uncle has to return for further care here and it seems helpful, we could schedule an ethics consult then.
[2016-07-24 06:06] LABS: HEP B SURFACE AB Non Reactive (.)
== END 2016-07-23 14:52 | DRG 870 ==
LOC: JER 23:18 → JERBED 06-10 02:08 → JICU 06-10 03:53 → J4S 07-03 14:47
PROVIDERS: ADMIT Family Medicine; ATTEND Family Medicine
PROC: 30233N1 Transfusion of Nonautologous Red Blood Cells into Peripheral Vein, Percutaneous Approach (ICD-10-PCS; 2016-06-10)
PROC: 5A1955Z Respiratory Ventilation, Greater than 96 Consecutive Hours (ICD-10-PCS; principal; 2016-06-16)
PROC: 0BH17EZ Insertion of Endotracheal Airway into Trachea, Via Natural or Artificial Opening (ICD-10-PCS; 2016-06-16)
PROC: 05HM33Z Insertion of Infusion Device into Right Internal Jugular Vein, Percutaneous Approach (ICD-10-PCS; 2016-06-20)
PROC: 02H633Z Insertion of Infusion Device into Right Atrium, Percutaneous Approach (ICD-10-PCS; 2016-06-26)
PROC: B214YZZ Fluoroscopy of Right Heart using Other Contrast (ICD-10-PCS; 2016-06-26)
PROC: 5A09557 Assistance with Respiratory Ventilation, Greater than 96 Consecutive Hours, Continuous Positive Airway Pressure (ICD-10-PCS; 2016-07-22)
PROC: 5A1D60Z (ICD-10-PCS; 2016-07-23)
DX: A41.9 Sepsis, unspecified organism (principal); R65.21 Severe sepsis with septic shock; G92 Toxic encephalopathy; J96.00 Acute respiratory failure, unspecified whether with hypoxia or hypercapnia; N18.6 End stage renal disease; I50.23 Acute on chronic systolic (congestive) heart failure; L89.154 Pressure ulcer of sacral region, stage 4; J18.9 Pneumonia, unspecified organism; E87.1 Hypo-osmolality and hyponatremia; N17.9 Acute kidney failure, unspecified; J98.11 Atelectasis; L03.312 Cellulitis of back [any part except buttock and flank]; J44.1 Chronic obstructive pulmonary disease with (acute) exacerbation; E87.2 Acidosis; L03.119 Cellulitis of unspecified part of limb; I48.92 Unspecified atrial flutter; I13.2 Hypertensive heart and chronic kidney disease with heart failure and with stage 5 chronic kidney disease, or end stage renal disease; I42.9 Cardiomyopathy, unspecified; E87.5 Hyperkalemia; E03.9 Hypothyroidism, unspecified; E78.5 Hyperlipidemia, unspecified; R00.1 Bradycardia, unspecified; D64.9 Anemia, unspecified; Z53.09 Procedure and treatment not carried out because of other contraindication; E11.22 Type 2 diabetes mellitus with diabetic chronic kidney disease; Z99.2 Dependence on renal dialysis; Z79.4 Long term (current) use of insulin; D69.6 Thrombocytopenia, unspecified; D72.829 Elevated white blood cell count, unspecified; E87.70 Fluid overload, unspecified; I48.0 Paroxysmal atrial fibrillation; K21.9 Gastro-esophageal reflux disease without esophagitis
CPT/HCPCS: 31500; 36415; 36430; 36589; 36600; 70450-TC; 71010-TC; 76000-TC; 80048; 80053; 80061; 81003; 81015; 82180; 82247; 82272; 82436; 82533; 82550; 82553; 82570; 82607; 82728; 82803; 82947; 83051; 83540; 83605; 83690; 83721; 83735; 83880; 83930; 83935; 84100; 84132; 84133; 84155; 84165; 84300; 84439; 84443; 84481; 84484; 85025; 85027; 85384; 85610; 85651; 85730; 86022; 86140; 86704; 86706; 86708; 86803; 86850; 86900; 86901; 86922; 87040; 87070; 87086; 87186; 87205; 87254; 87340; 87804; 87899; 93005; 93010; 93306-TC; 94002; 94640; 94660; 94760; 97162-PG; 99283-25; G0480; J0885; J1250; J1644; J2997; P9038; P9047; P9058

== ENCOUNTER 2016-07-24 11:29 | Inpatient (IN) | payer OTHER, BC ==
[2016-07-24] MEDS ORDERED: SODIUM CHLORIDE 500 ML IV STA ×2 (11:53→13:55)
[2016-07-24 11:57] VITALS: BMI 29.5
[2016-07-24 12:37] LABS: VENOUS PH 7.27 (7.32-7.42)
[2016-07-24 12:38] LABS: VENOUS BLOOD GAS HCO3 25.4 meq/L (19-25)
[2016-07-24 12:38] LABS: BASOPHIL 0.5 % (0-2.0); EOSINOPHIL 0.5 % (0-4.5); MCH 27.8 pg (25.7-33.7); MCHC 29.1 g/dl (32.0-35.9); MEAN CELL VOLUME 95.6 fl (80-96); MEAN PLT VOLUME 9.6 fl (7.5-11.1); NEUTROPHILS 79.8 % (42.8-82.8); PLATELET COUNT 106 K/MM3 (134-434); WHITE BLOOD COUNT 16.9 K/mm3 (4.0-10.0)
--- NOTE | 2016-07-24 12:45 | PDOC ---
History of Present Illness - General Chief Complaint: Blood Pressure Problem Stated Complaint: HYPOTENSION Time Seen by Provider: 07/24/16 11:34 History Source: [facility] Records Exam Limitations: No Limitations, Clinical Condition - History of Present Illness Initial Comments: 07/24/16 13:06 76-year-old male with history of end-stage renal, CHF, multiple decubiti, COPD, and diabetes sent over from [facility] for hypotension. Patient was just discharged from [facility] yesterday and was made a DNR few days prior to that. Patient currently at [facility] under the care of Dr. Casey. Patient has no complaints upon arrival but appeared dyspneic and weak. Patient had his last dialysis on Thursday was due today. Timing/Duration: constant Severity: moderate Associated Symptoms: reports: denies symptoms Past History - Travel Traveled outside of the country in the last 30 days: No Close contact w/someone who was outside of country & ill: No - Past Medical History Allergies/Adverse Reactions: Allergies Allergy/AdvReac Type Severity Reaction Status Date / Time No Known Allergies Allergy Verified 05/23/16 23:31 Home Medications: Ambulatory Orders Acetaminophen [Tylenol] 325 mg PO DAILY 07/24/16 Albuterol 2.5/Ipratropium 0.5 [Duoneb -] 1 neb IH QID 07/24/16 Anemia: No Asthma: No Cancer: No Cardiac Disorders: No CVA: No COPD: Yes CHF: Yes Dementia: No Diabetes: Yes (NIDDM) GI Disorders: Yes (gerd) Disorders: Yes (CHRONIC KIDNEY DISEASE) HTN: Yes Hypercholesterolemia: Yes Suicide Attempt (Hx): No Seizures: No Thyroid Disease: No - Immunization History Immunization Up to Date: Yes - Psycho/Social/Smoking Cessation Hx Anxiety: No Suicidal Ideation: No Smoking History: Never smoked Have you smoked in the past 12 months: No Information on smoking cessation initiated: No Hx Alcohol Use: No Drug/Substance Use Hx: No Substance Use Type: None Hx Substance Use Treatment: No Patient Lives Alone: No Lives with/in: long term Review of Systems - Review of Systems Able to Perform ROS?: Yes Constitutional: Yes: Weakness HEENTM: No: Symptoms Reported Respiratory: Yes: Shortness of Breath Cardiac (ROS): No: Symptoms Reported ABD/GI: Yes: Poor Appetite Musculoskeletal: No: Symptoms Reported Integumentary: Yes: See HPI Neurological: Yes: Weakness *Physical Exam - Vital Signs Last Vital Signs Temp Pulse Resp BP Pulse Ox 98.2 F 125 H 28 H 80/54 07/24/16 11:52 07/24/16 11:52 07/24/16 11:52 07/24/16 11:52 - Physical Exam General Appearance: Yes: Appropriately Dressed, Mild Distress HEENT: positive: EOMI, ABBY, TMs Normal, Pharynx Normal (dry) Neck: positive: Supple Respiratory/Chest: positive: Lungs Clear, Accessory Muscle Use (intracostal bilateral), Decreased Breath Sounds (at bases) Cardiovascular: positive: Regular Rhythm, Tachycardia. negative: Murmur Gastrointestinal/Abdominal: positive: Soft. negative: Tenderness Musculoskeletal: negative: CVA Tenderness Extremity: positive: Normal Capillary Refill, Pedal Edema (1+ bilateral) Integumentary: positive: Normal Color, Dry, Warm, Other (multiple stage III decubiti to buttocks and scrotum) Neurologic: positive: Normal Mood/Affect (conversing with staff and answers simple questions) Heart Score/ECG Review - ECG Impressions Tachycardia: Afib w/rapid Vent rate (rate 113 with PVC) ED Treatment Course - LABORATORY CBC & Chemistry Diagram: 07/24/16 12:30 07/24/16 12:30 - ADDITIONAL ORDERS Additional order review: Laboratory Results 07/24/16 12:35 VBG pH 7.27 L POC VBG pCO2 56.8 H POC VBG pO2 55.7 H Mixed VBG HCO3 25.4 H - RADIOLOGY Radiology Studies Ordered: Category Date Time Status CHEST X-RAY PORTABLE* [RAD] Stat Radiology 07/24/16 11:53 Taken Medical Decision Making - Medical Decision Making 07/24/16 14:06 Patient sent here for hypotension that was noted at the long term today. Patient was just discharged here after being admitted for for 1 month and was made a DNR. Patient is end-stage renal and receives dialysis Thursday and Thursday patient also with extensive skin breakdown to his buttocks. Patient concerning for sepsis versus dehydration. Septic workup initiated an ABG was obtained. 07/24/16 14:[address] Aga Muniz and patient will be admitted to telemetry. Patient ordered for vancomycin and Zosyn along with a second 500 mL normal saline infusion IV. patient maintaining O2 sat on 4 L 05/11/17 14:10 Laboratory Tests 06/11/16 07/24/16 07/24/16 05:15 12:30 12:30 WBC 16.9 H D Hgb 9.3 L Hct 31.9 L RDW 23.0 H Plt Count 106 L Neutrophils % 79.8 Lymphocytes % 6.8 L Monocytes % 12.4 H INR 1.79 H PTT (Actin FS) 44.5 H ABG pH ABG pCO2 at Pt Temp ABG pO2 at Pt Temp ABG HCO3 ABG O2 Sat (Measured) ABG O2 Content VBG pH POC VBG pCO2 POC VBG pO2 Mixed VBG HCO3 Carboxyhemoglobin Methemoglobin O2 Delivery Device Oxygen Flow Rate Sodium Potassium Chloride Carbon Dioxide Anion Gap BUN Creatinine Creat Clearance w eGFR Random Glucose Lactic Acid Calcium Total Bilirubin AST ALT Troponin I 0.14 H D Total Protein Albumin Blood Type Antibody Screen 07/24/16 07/24/16 07/24/16 12:30 12:30 12:30 WBC Hgb Hct RDW Plt Count Neutrophils % Lymphocytes % Monocytes % INR PTT (Actin FS) ABG pH ABG pCO2 at Pt Temp ABG pO2 at Pt Temp ABG HCO3 ABG O2 Sat (Measured) ABG O2 Content VBG pH POC VBG pCO2 POC VBG pO2 Mixed VBG HCO3 Carboxyhemoglobin Methemoglobin O2 Delivery Device Oxygen Flow Rate Sodium 145 Potassium 4.8 Chloride 105 Carbon Dioxide 28 Anion Gap 12 BUN 38 H D Creatinine 3.6 H D Creat Clearance w eGFR 16.57 Random Glucose 78 Lactic Acid 5.672 H* Calcium 8.9 Total Bilirubin 2.2 H D AST 61 H D ALT 23 D Troponin I 0.17 H Total Protein 6.3 L Albumin 2.4 L Blood Type A POSITIVE Antibody Screen Negative 07/24/16 07/24/16 12:35 13:20 WBC Hgb Hct RDW Plt Count Neutrophils % Lymphocytes % Monocytes % INR PTT (Actin FS) ABG pH 7.31 L ABG pCO2 at Pt Temp 51.7 H ABG pO2 at Pt Temp 93.7 D ABG HCO3 25.3 ABG O2 Sat (Measured) 96.9 ABG O2 Content 11.7 L VBG pH 7.27 L POC VBG pCO2 56.8 H POC VBG pO2 55.7 H Mixed VBG HCO3 25.4 H Carboxyhemoglobin 2.8 H Methemoglobin 0.4 O2 Delivery Device Nasal cannula Oxygen Flow Rate 4l Sodium Potassium Chloride Carbon Dioxide Anion Gap BUN Creatinine Creat Clearance w eGFR Random Glucose Lactic Acid Calcium Total Bilirubin AST ALT Troponin I Total Protein Albumin Blood Type Antibody Screen *DC/Admit/Observation/Transfer Diagnosis at time of Disposition: Hypotension Qualifiers: Hypotension type: unspecified hypotension type Qualified Code(s): I95.9 - Hypotension, unspecified - Discharge Dispostion Admit: Yes - Referrals
[2016-07-24 13:00] LABS: INR 1.79 (0.82-1.09); PROTHROMBIN TIME (PATIENT) 19.9 SEC (9.98-11.88)
[2016-07-24 13:02] LABS: ACTIVATED PTT 44.5 SECONDS (26.9-34.4); ALBUMIN 2.4 g/dl (3.4-5.0); BILIRUBIN,TOTAL 2.2 mg/dL (0.2-1.0); CALCIUM 8.9 mg/dL (8.5-10.1); COCKROFT - GAULT 22.39; CREATININE 3.6 mg/dL (0.7-1.3); TOT PROT 6.3 g/dl (6.4-8.2)
[2016-07-24 13:04] LABS: TROPONIN I 0.17 ng/ml (0.00-0.05)
[2016-07-24 13:20] LABS: ARTERIAL BLD GAS O2 SATURATION 96.9 % (90-98.9); ARTERIAL BLOOD GAS BASE EXCESS -0.7 meq/l (-2-2); ARTERIAL BLOOD GAS HCO3 25.3 meq/L (22-26); ARTERIAL BLOOD GAS PO2 93.7 mmHg (70-100); ARTERIAL BLOOD GAS pH 7.31 (7.35-7.45)
--- NOTE | 2016-07-24 13:20 | HP ---
Admitting History and Physical - Primary Care Physician PCP: Davin Dee - Admission Chief Complaint: sepsis History of Present Illness: This is a 76-year-old male who was admitted here - long hospitalizationfor septic shock, acute systolic congestive heart failure, end-stage renal disease started on dialysis , wound infection and respiratory distress.he was discharged yesterday and [facility] today [facility] Also [facility] in the longterm. Patient examined in the emergency room, spoke with the ER attending. at the bedside. She states that he is at his baseline mentation. Since this hospitalization, he has been immobile History Source: Patient, Family Member Limitations to Obtaining History: Poor Historian - Past Medical History Cardiovascular: Yes: AFIB (atrial flutter), CAD, CHF (chronic systolic CHF), HTN Pulmonary: Yes: COPD Gastrointestinal: Yes: Diverticulosis, Peptic Ulcer Disease Renal/: Yes: Renal Inusuff Endocrine: Yes: Diabetes Mellitus - Past Surgical History Past Surgical History: Yes: Colonoscopy, Upper Endoscopy - Smoking History Smoking history: Never smoked Have you smoked in the past 12 months: No - Alcohol/Substance Use Hx Alcohol Use: No - Social History Occupation: worked for the [employer] Home Medications - Allergies Allergies/Adverse Reactions: Allergies Allergy/AdvReac Type Severity Reaction Status Date / Time No Known Allergies Allergy Verified 05/23/16 23:31 - Home Medications Home Medications: Ambulatory Orders Acetaminophen [Tylenol] 325 mg PO DAILY 07/24/16 Albuterol 2.5/Ipratropium 0.5 [Duoneb -] 1 neb IH QID 07/24/16 Amino Acid/Protein/Vit C/Zinc [Prosource Luis Protein Liquid] 946 ml PO DAILY 01/30 Ascorbic Acid [Vitamin C -] 500 mg PO DAILY 07/24/16 Diphenhydramine HCl [Benadryl -] 25 mg PO Q6H 07/24/16 Folic Acid 1 mg PO DAILY 07/24/16 Heparin - 5,000 unit SCJ TID 07/24/16 Insulin Lispro [Humalog Kwikpen] 200 unit SQ ASDIR 07/24/16 Levothyroxine [Synthroid -] 25 mcg PO DAILY 07/24/16 Metoprolol Succinate [Toprol Xl -] 25 mg PO DAILY 07/24/16 Multivitamin [Poly-Vitamin] 1 each PO DAILY 07/24/16 Nystatin Cream [Mycostatin] 1 applic TP BID 07/24/16 Tamsulosin HCl [Flomax] 0.4 mg PO DAILY 07/24/16 Vitamin B Comp W-C [Nephro-Mor -] 1 tablet PO DAILY 07/24/16 Zinc Sulfate 220 mg PO DAILY 07/24/16 Family Disease History - Family Disease History Family Disease History: Diabetes: Father Review of Systems - Review of Systems Constitutional: denies: Chills, Fever Cardiovascular: denies: Chest Pain, Palpitations Respiratory: denies: Cough, PND, SOB Physical Examination Vital Signs: Vital Signs Temperature 98.2 F 07/24/16 11:52 Pulse Rate 125 H 07/24/16 11:52 Respiratory Rate 28 H 07/24/16 11:52 Blood Pressure 80/54 07/24/16 11:52 O2 Sat by Pulse Oximetry (%) Constitutional: Yes: No Distress, Calm Cardiovascular: Yes: Tachycardia, Pulse Irregular Respiratory: Yes: Diminished, Other (left permacath) Gastrointestinal: Yes: Normal Bowel Sounds, Soft. No: Distention, Tenderness Extremities: Yes: Other (heel wounds, dressing in place, bilateral leg wounds) Edema: No Integumentary: Yes: Pressure Ulcer (sacral) Neurological: Yes: Alert, Oriented (knows that he is in the hospital) Labs: CBC, BMP 07/24/16 12:30 07/24/16 12:30 Imaging - Results Chest X-ray: Image Reviewed EKG: Image Reviewed (rapid A. fib) Problem List - Problems (1) Congestive heart failure (CHF) Code(s): I50.9 - HEART FAILURE, UNSPECIFIED Qualifiers: Congestive heart failure type: systolic Congestive heart failure chronicity: chronic Qualified Code(s): I50.22 - Chronic systolic (congestive ) heart failure (2) DMII (diabetes mellitus, type 2) Code(s): E11.9 - TYPE 2 DIABETES MELLITUS WITHOUT COMPLICATIONS Qualifiers: Diabetes mellitus complication detail: with other kidney complication (3) HTN (hypertension) Code(s): I10 - ESSENTIAL (PRIMARY) HYPERTENSION Qualifiers: Hypertension type: essential hypertension Qualified Code(s): I10 - Essential (primary) hypertension (4) Pressure ulcer of lower extremity, stage 1 Code(s): L89.891 - PRESSURE ULCER OF OTHER SITE, STAGE 1 (5) Sepsis Code(s): A41.9 - SEPSIS, UNSPECIFIED ORGANISM Qualifiers: Sepsis type: sepsis due to unspecified organism Qualified Code(s): A41.9 - Sepsis, unspecified organism (6) Rapid atrial fibrillation Code(s): I48.91 - UNSPECIFIED ATRIAL FIBRILLATION (7) Functional quadriplegia Code(s): R53.2 - FUNCTIONAL QUADRIPLEGIA (8) End stage renal disease on dialysis Code(s): N18.6 - END STAGE RENAL DISEASE Z99.2 - DEPENDENCE ON RENAL DIALYSIS Assessment/Plan PLAN SEPSIS Stat dose of IV vanco -- Blood cultures obtained today. Previous blood cultures were negative. He had a debridement of his wounds [facility] Repeat lactic acid ID evaluation HYPOTENSION baseline blood pressure is on the lower side, monitor blood pressure. He is not on medications for blood pressure end-stage renal disease on dialysis Nephrology consult Does not appear to be clinically volume overloaded O2 sat 99% on 2 L elevated troponins, rapid A. fib poor candidate for cardiac interventions as per network support administrator last admission. Trend troponins. Telemetry evaluation for rapid A. fib.Unable to give beta blockers as his blood pressure is low. Was on Lopressor 25 mg twice a day, I will cut it down to 12.5 mg twice a day. If BP permits, may give Lopressor. Rapid A. fib probably due to sepsis. he was on Eliquis which was discontinued last admission due to ?GI bleeding / acute severe anemia CHF compensated systolic heart failure Not on AceI or ARB due to hypotension advanced directives patient is DNR time spent in evaluation, examination and speaking to the family as well as documentation 40 min
[2016-07-24 13:21] LABS: ALLENS TEST POSITIVE; ART PUNCT SITE RIGHT RADIAL; LPM/O2% 4L; METHEMOGLOBIN 0.4 % (0.4-1.5); PT. ON O2? YES; TYPE OF O2 NASAL CANNULA
[2016-07-24] MEDS ORDERED: ACETAMINOPHEN 325 MG TABLET (FP) PO PRN (13:31)
[2016-07-24] MEDS ORDERED: ALBUTEROL SO4 2.5/IPRATROPIUM 0.5 INH SOL 3 ML VIAL.NEB. NEB PRN (13:31)
[2016-07-24] MEDS ORDERED: VANCOMYCIN 1 GRAM (PRE-DOCKED) 250 ML IVPB ONE ×2 (13:45→14:40)
[2016-07-24] MEDS ORDERED: VANCOMYCIN 1,000 MG in DEXTROSE 5%-WATER - 250 ML IVPB ONE (13:53)
[2016-07-24] MEDS ORDERED: PIPERACILLIN/TAZOB 3.375 GM 3.375 GM in DEXTROSE 5%-WATER - 50 ML IVPB SCH (14:00)
[2016-07-24] MEDS ORDERED: PIPERACILLIN/TAZOB 3.375 GM 50 ML IVPB ONE (14:10)
--- NOTE | 2016-07-24 16:45 | EKG ---
Test Reason : Blood Pressure : / mmHG Vent. Rate : 113 BPM Atrial Rate : 110 BPM P-R Int : 000 ms QRS Dur : 108 ms QT Int : 340 ms P-R-T Axes : 000 003 180 degrees QTc Int : 466 ms ATRIAL FIBRILLATION WITH RAPID VENTRICULAR RESPONSE WITH PREMATURE VENTRICULAR OR ABERRANTLY CONDUCTED COMPLEXES LOW VOLTAGE QRS ABNORMAL ECG WHEN COMPARED WITH ECG OF 12-JUN-2016 17:47, ATRIAL FIBRILLATION HAS REPLACED SINUS RHYTHM VENT. RATE HAS INCREASED BY 39 BPM QUESTIONABLE CHANGE IN QRS DURATION Confirmed by ISABELLA ZAFAR MD ([id number]) on 07/24/2016 4:45:14 PM Referred By: Confirmed By:ISABELLA ZAFAR MD
--- NOTE | 2016-07-24 17:16 | CONSULT ---
Consult Consult Specialty:: Nephrology Reason for Consultation:: ESRD - History of Present Illness Chief Complaint: sent from [facility] for hypotension History of Present Illness: Pt is a 76 year male recently started on HD. He was sent to [facility] yesterday and sent back this morning for hypotension. He is awake and alert. His is at the bedside. He denies shortness of breath. He is due for HD in am. - History Source History Provided By: Patient, Medical Record - Past Medical History Cardio/Vascular: Yes: AFIB (atrial flutter), CAD, CHF (chronic systolic CHF), HTN Pulmonary: Yes: COPD Gastrointestinal: Yes: Diverticulosis, Peptic Ulcer Disease Renal/: Yes: Renal Inusuff, Hemodialysis Endocrine: Yes: Diabetes Mellitus Additional Medical History: glaucoma - Past Surgical History Past Surgical History: Yes: Colonoscopy, Upper Endoscopy - Alcohol/Substance Use Hx Alcohol Use: No - Smoking History Smoking history: Never smoked Have you smoked in the past 12 months: No - Social History Usual Living Arrangement: [facility] Occupation: worked for the [employer] Home Medications - Allergies Allergies/Adverse Reactions: Allergies Allergy/AdvReac Type Severity Reaction Status Date / Time No Known Allergies Allergy Verified 05/23/16 23:31 - Home Medications Home Medications: Ambulatory Orders Acetaminophen [Tylenol] 325 mg PO DAILY 07/24/16 Albuterol 2.5/Ipratropium 0.5 [Duoneb -] 1 neb IH QID 07/24/16 Amino Acid/Protein/Vit C/Zinc [Prosource Luis Protein Liquid] 946 ml PO DAILY 01/30 Ascorbic Acid [Vitamin C -] 500 mg PO DAILY 07/24/16 Diphenhydramine HCl [Benadryl -] 25 mg PO Q6H 07/24/16 Folic Acid 1 mg PO DAILY 07/24/16 Heparin - 5,000 unit SCJ TID 07/24/16 Insulin Lispro [Humalog Kwikpen] 200 unit SQ ASDIR 07/24/16 Levothyroxine [Synthroid -] 25 mcg PO DAILY 07/24/16 Metoprolol Succinate [Toprol Xl -] 25 mg PO DAILY 07/24/16 Multivitamin [Poly-Vitamin] 1 each PO DAILY 07/24/16 Nystatin Cream [Mycostatin] 1 applic TP BID 07/24/16 Tamsulosin HCl [Flomax] 0.4 mg PO DAILY 07/24/16 Vitamin B Comp W-C [Nephro-Mor -] 1 tablet PO DAILY 07/24/16 Zinc Sulfate 220 mg PO DAILY 07/24/16 Family Disease History - Family Disease History Family Disease History: Diabetes: Father Review of Systems - Review of Systems Constitutional: reports: No Symptoms Eyes: reports: No Symptoms HENT: reports: No Symptoms Neck: reports: No Symptoms Cardiovascular: reports: Shortness of Breath Respiratory: reports: SOB Gastrointestinal: reports: No Symptoms Musculoskeletal: reports: No Symptoms Physical Exam Vital Signs: Vital Signs Temperature 97.6 F 07/24/16 15:45 Pulse Rate 108 H 07/24/16 17:07 Respiratory Rate 20 07/24/16 17:07 Blood Pressure 86/65 07/24/16 17:07 O2 Sat by Pulse Oximetry (%) 100 07/24/16 17:07 Constitutional: Yes: Calm Eyes: Yes: WNL HENT: Yes: WNL Cardiovascular: Yes: S1, S2 Respiratory: Yes: On Nasal O2 Gastrointestinal: Yes: Soft, Abdomen, Obese Renal/: Yes: Incontinence Musculoskeletal: Yes: Muscle Weakness Edema: No Integumentary: Yes: Other (cellulitis) Wound/Incision: Yes: Other (bilateral lower extremity ulcer) Neurological: Yes: Oriented Psychiatric: Yes: Oriented Imaging - Results Chest X-ray: Report Reviewed Problem List - Problems (1) End stage renal disease on dialysis Code(s): N18.6 - END STAGE RENAL DISEASE Z99.2 - DEPENDENCE ON RENAL DIALYSIS (2) Hypotension Code(s): I95.9 - HYPOTENSION, UNSPECIFIED Qualifiers: Hypotension type: unspecified hypotension type Qualified Code(s): I95.9 - Hypotension, unspecified (3) Anemia Code(s): D64.9 - ANEMIA, UNSPECIFIED Qualifiers: Other causes of anemia: chronic disease, kidney Assessment/Plan Current Medications Generic Name Dose Route Start Last Admin Trade Name Freq PRN Reason Stop Dose Admin Acetaminophen 325 mg 07/24/16 13:31 Tylenol - PO Q6H PRN FEVER Albuterol/Ipratropium 1 amp 07/24/16 13:31 Duoneb - NEB QID PRN SHORTNESS OF BREATH Piperacillin Sod/Tazobactam 50 mls @ 100 mls/hr 07/24/16 14:00 07/24/16 14:18 Sod 3.375 gm/ Dextrose IVPB 07/25/16 13:59 100 mls/hr ONCE SISI Administration Levothyroxine Sodium 50 mcg 07/25/16 07:00 Synthroid - PO DAILY@0700 SISI Metoprolol Tartrate 12.5 mg 07/24/16 22:00 Lopressor - PO BID SISI Pantoprazole Sodium 40 mg 07/25/16 10:00 Protonix - PO DAILY [facility] Impression 1. ESRD on HD 2. hypotension 3. cellulitis/abscess of back 4. CHF 5. hypothyroidism 6. hyperlipidemia 7. COPD 8. a-fib Plan - will arrange for HD in am - monitor blood pressure - will need fistula once more stable - oxygen and bipap as needed - one to one feeds
--- NOTE | 2016-07-24 18:24 | PN ---
Progress Note (short form) - Note Progress Note: ID Consult dictated Sepsis, possible septic shock ESRD Lactic acidosis Leukocytosis Hx MRSA Pending sepsis workup, empiric vanco/ zosyn, adjusted for renal failure
[2016-07-24 19:27] LABS: PLATELET ESTIMATE SLT DECREASED (NORMAL)
[2016-07-24 19:28] LABS: ANISOCYTOSIS 3+; OVALOCYTES 1+; POIKILOCYTOSIS 1+; POLYCHROMASIA 1+; TARGET CELLS RARE; TEAR DROP CELLS 1+
[2016-07-24 20:43] LABS: TROPONIN I 0.18 ng/ml (0.00-0.05)
[2016-07-24] MEDS: METOPROLOL TARTRATE 25 MG TABLET (FP) PO SCH (21:29)
[2016-07-25] MEDS: PIPERACILLIN/TAZOB 2.25 GM 50 ML IVPB SCH ×3 (01:50→17:59)
[2016-07-25] MEDS: LEVOTHYROXINE NA 50 MCG TABLET (FP) PO SCH (06:29)
[2016-07-25 08:21] LABS: TROPONIN I 0.19 ng/ml (0.00-0.05)
--- NOTE | 2016-07-25 08:43 | PN ---
Progress Note (short form) - Note Progress Note: SUBJECTIVE: Patient seen and examined. Chart reviewed. Patient admitted under our care as per the request of Dr. Davin Dee. Awake and comfortable. Poor historian. No distress. Remains hypotensive. OBJECTIVE: Vital Signs 07/25/16 07/25/16 07/25/16 03:46 06:00 08:15 Temperature 97 F L 97.4 F L 98.2 F Pulse Rate 110 H 106 H 110 H Respiratory 20 20 18 Rate Blood Pressure 145/89 82/53 82/48 Intake & Output 07/24/16 07/25/16 07/25/16 23:59 07:59 15:59 Intake Total 360 100 Balance 360 100 Weight 90.718 kg 89.63 kg Intake: IVPB 100 Oral 360 Other: Voiding Method Diaper Incontinent # Unmeasured Voids Void 0 Bowel Movement 1 Height 5 ft 9 in Body Mass Index (BMI) 29.5 Weight Measurement Method Patient Lift Scale Active Medications Acetaminophen (Tylenol -) 325 mg PO Q6H PRN PRN Reason: FEVER Albumin Human (Albumin Human 25%) 12.5 gm IVPB Q30M [facility] Albuterol/Ipratropium (Duoneb -) 1 amp NEB QID PRN PRN Reason: SHORTNESS OF BREATH Heparin Sodium (Porcine) (Heparin -) 1,000 unit IVPUSH ONCE ONE Stop: 07/25/16 17:19 Heparin Sodium (Porcine) (Heparin -) 500 unit IVPUSH Q1H [facility] Stop: 07/25/16 19:31 Piperacillin Sod/Tazobactam Sod (Zosyn 2.25gm Ivpb (Pre-Docked)) 50 mls @ 100 mls/hr IVPB Q8H-IV [facility] PRN Reason: Protocol Last Admin: 07/25/16 01:50 Dose: 100 mls/hr Levothyroxine Sodium (Synthroid -) 50 mcg PO DAILY@0700 [facility] Last Admin: 07/25/16 06:29 Dose: 50 mcg Metoprolol Tartrate (Lopressor -) 12.5 mg PO BID [facility] Last Admin: 07/24/16 21:29 Dose: Not Given Pantoprazole Sodium (Protonix -) 40 mg PO DAILY [facility] CBC, BMP 07/25/16 06:00 07/25/16 06:00 Laboratory Results - last 24 hr 0507/24/16 07/24/16 12:30 12:30 12:30 WBC 16.9 H D RBC 3.33 L Hgb 9.3 L Hct 31.9 L MCV 95.6 MCHC 29.1 L RDW 23.0 H Plt Count 106 L MPV 9.6 Neutrophils % 79.8 Lymphocytes % 6.8 L Monocytes % 12.4 H Eosinophils % 0.5 Basophils % 0.5 Platelet Estimate Slt decreased Platelet Comment Few giant plts Polychromasia 1+ Poikilocytosis 1+ Anisocytosis 3+ Target Cells Rare Tear Drop Cells 1+ Ovalocytes 1+ Morphology Comment Slide scanned INR 1.79 H PTT (Actin FS) 44.5 H Puncture Site ABG pH ABG pCO2 at Pt Temp ABG pO2 at Pt Temp ABG HCO3 ABG O2 Sat (Measured) ABG O2 Content ABG Base Excess Frankie Test VBG pH POC VBG pCO2 POC VBG pO2 Mixed VBG HCO3 Carboxyhemoglobin Methemoglobin O2 Delivery Device Oxygen Flow Rate Sodium 145 Potassium 4.8 Chloride 105 Carbon Dioxide 28 Anion Gap 12 BUN 38 H D Creatinine 3.6 H D Creat Clearance w eGFR 16.57 POC Glucometer Random Glucose 78 Lactic Acid Calcium 8.9 Total Bilirubin 2.2 H D AST 61 H D ALT 23 D Alkaline Phosphatase 96 Creatine Kinase 71 Troponin I 0.17 H Total Protein 6.3 L Albumin 2.4 L Random Vancomycin Blood Type Antibody Screen 07/24/16 07/24/16 07/24/16 12:30 12:30 12:35 WBC RBC Hgb Hct MCV MCHC RDW Plt Count MPV Neutrophils % Lymphocytes % Monocytes % Eosinophils % Basophils % Platelet Estimate Platelet Comment Polychromasia Poikilocytosis Anisocytosis Target Cells Tear Drop Cells Ovalocytes Morphology Comment INR PTT (Actin FS) Puncture Site ABG pH ABG pCO2 at Pt Temp ABG pO2 at Pt Temp ABG HCO3 ABG O2 Sat (Measured) ABG O2 Content ABG Base Excess Frankie Test VBG pH 7.27 L POC VBG pCO2 56.8 H POC VBG pO2 55.7 H Mixed VBG HCO3 25.4 H Carboxyhemoglobin Methemoglobin O2 Delivery Device Oxygen Flow Rate Sodium Potassium Chloride Carbon Dioxide Anion Gap BUN Creatinine Creat Clearance w eGFR POC Glucometer Random Glucose Lactic Acid 5.672 H* Calcium Total Bilirubin AST ALT Alkaline Phosphatase Creatine Kinase Troponin I Total Protein Albumin Random Vancomycin Blood Type A POSITIVE Antibody Screen Negative 07/24/16 07/24/16 07/24/16 13:20 15:20 17:40 WBC RBC Hgb Hct MCV MCHC RDW Plt Count MPV Neutrophils % Lymphocytes % Monocytes % Eosinophils % Basophils % Platelet Estimate Platelet Comment Polychromasia Poikilocytosis Anisocytosis Target Cells Tear Drop Cells Ovalocytes Morphology Comment INR PTT (Actin FS) Puncture Site Right radial ABG pH 7.31 L ABG pCO2 at Pt Temp 51.7 H ABG pO2 at Pt Temp 93.7 D ABG HCO3 25.3 ABG O2 Sat (Measured) 96.9 ABG O2 Content 11.7 L ABG Base Excess -0.7 Frankie Test Positive VBG pH POC VBG pCO2 POC VBG pO2 Mixed VBG HCO3 Carboxyhemoglobin 2.8 H Methemoglobin 0.4 O2 Delivery Device Nasal cannula Oxygen Flow Rate 4l Sodium Potassium Chloride Carbon Dioxide Anion Gap BUN Creatinine Creat Clearance w eGFR POC Glucometer 86 Random Glucose Lactic Acid 4.369 H* Calcium Total Bilirubin AST ALT Alkaline Phosphatase Creatine Kinase Troponin I Total Protein Albumin Random Vancomycin Blood Type Antibody Screen 07/24/16 07/25/16 07/25/16 19:40 05:40 05:40 WBC RBC Hgb Hct MCV MCHC RDW Plt Count MPV Neutrophils % Lymphocytes % Monocytes % Eosinophils % Basophils % Platelet Estimate Platelet Comment Polychromasia Poikilocytosis Anisocytosis Target Cells Tear Drop Cells Ovalocytes Morphology Comment INR PTT (Actin FS) Puncture Site ABG pH ABG pCO2 at Pt Temp ABG pO2 at Pt Temp ABG HCO3 ABG O2 Sat (Measured) ABG O2 Content ABG Base Excess Frankie Test VBG pH POC VBG pCO2 POC VBG pO2 Mixed VBG HCO3 Carboxyhemoglobin Methemoglobin O2 Delivery Device Oxygen Flow Rate Sodium 145 Potassium 4.0 Chloride 104 Carbon Dioxide 28 Anion Gap 13 BUN 47 H D Creatinine 3.9 H Creat Clearance w eGFR 15.11 POC Glucometer Random Glucose 85 Lactic Acid Calcium 8.4 L Total Bilirubin 1.4 H D AST 38 H D ALT 23 Alkaline Phosphatase 96 Creatine Kinase 84 62 Troponin I 0.18 H 0.19 H Total Protein 6.2 L Albumin 2.4 L Random Vancomycin 13.592 Blood Type Antibody Screen 07/25/16 07/25/16 06:00 06:00 WBC 13.0 H RBC 3.30 L Hgb 9.2 L Hct 30.8 L MCV 93.3 MCHC 29.9 L RDW 21.7 H Plt Count 109 L MPV 10.7 D Neutrophils % 80.9 Lymphocytes % 7.4 L Monocytes % 9.8 Eosinophils % 1.5 D Basophils % 0.4 Platelet Estimate Platelet Comment Polychromasia Poikilocytosis Anisocytosis Target Cells Tear Drop Cells Ovalocytes Morphology Comment INR PTT (Actin FS) Puncture Site ABG pH ABG pCO2 at Pt Temp ABG pO2 at Pt Temp ABG HCO3 ABG O2 Sat (Measured) ABG O2 Content ABG Base Excess Frankie Test VBG pH POC VBG pCO2 POC VBG pO2 Mixed VBG HCO3 Carboxyhemoglobin Methemoglobin O2 Delivery Device Oxygen Flow Rate Sodium Cancelled Potassium Cancelled Chloride Cancelled Carbon Dioxide Cancelled Anion Gap Cancelled BUN Cancelled Creatinine Cancelled Creat Clearance w eGFR Cancelled POC Glucometer Random Glucose Cancelled Lactic Acid Calcium Cancelled Total Bilirubin Cancelled AST Cancelled ALT Cancelled Alkaline Phosphatase Cancelled Creatine Kinase Troponin I Total Protein Cancelled Albumin Cancelled Random Vancomycin Blood Type Antibody Screen PHYSICAL EXAMINATION: Constitutional: Yes: No Distress, Calm Cardiovascular: Yes: Tachycardia, Pulse Irregular Respiratory: Yes: Diminished, Other (left permacath) Gastrointestinal: Yes: Normal Bowel Sounds, Soft. No: Distention, Tenderness Extremities: Yes: Other (heel wounds, dressing in place, bilateral leg wounds) Edema: No Integumentary: Yes: Pressure Ulcer (sacral) Neurological: Yes: Alert, Oriented (knows that he is in the hospital) Problem List - Problems (1) Congestive heart failure (CHF) Code(s): I50.9 - HEART FAILURE, UNSPECIFIED Qualifiers: Congestive heart failure type: systolic Congestive heart failure chronicity: chronic Qualified Code(s): I50.22 - Chronic systolic (congestive ) heart failure (2) DMII (diabetes mellitus, type 2) Code(s): E11.9 - TYPE 2 DIABETES MELLITUS WITHOUT COMPLICATIONS Qualifiers: Diabetes mellitus complication detail: with other kidney complication (3) HTN (hypertension) Code(s): I10 - ESSENTIAL (PRIMARY) HYPERTENSION Qualifiers: Hypertension type: essential hypertension Qualified Code(s): I10 - Essential (primary) hypertension (4) Pressure ulcer of lower extremity, stage 1 Code(s): L89.891 - PRESSURE ULCER OF OTHER SITE, STAGE 1 (5) Sepsis Code(s): A41.9 - SEPSIS, UNSPECIFIED ORGANISM Qualifiers: Sepsis type: sepsis due to unspecified organism Qualified Code(s): A41.9 - Sepsis, unspecified organism (6) Rapid atrial fibrillation Code(s): I48.91 - UNSPECIFIED ATRIAL FIBRILLATION (7) Functional quadriplegia Code(s): R53.2 - FUNCTIONAL QUADRIPLEGIA (8) End stage renal disease on dialysis Code(s): N18.6 - END STAGE RENAL DISEASE Z99.2 - DEPENDENCE ON RENAL DIALYSIS ASSESSMENT & PLAN: Sepsis: - Continue antibiotics. - ID consultation noted and appreciated. Hypotension: - Observe off pressors. End-stage renal disease on dialysis: - Dialysis per Renal. Elevated troponins, rapid A. fib - Continue present care. CHF - Compensated. Advanced directives - Patient is DNR - Condition is guarded. Will consult Dr. Batres also for wound care. Will follow. Documentation prepared by Joelle Mcdowell, acting as a medical research assistant for Oziel Casey MD.
[2016-07-25 08:57] LABS: BASOPHIL 0.4 % (0-2.0); EOSINOPHIL 1.5 % (0-4.5); MCH 27.9 pg (25.7-33.7); MCHC 29.9 g/dl (32.0-35.9); MEAN CELL VOLUME 93.3 fl (80-96); MEAN PLT VOLUME 10.7 fl (7.5-11.1); NEUTROPHILS 80.9 % (42.8-82.8); PLATELET COUNT 109 K/MM3 (134-434); RDW 21.7 % (11.9-15.9)
[2016-07-25 09:10] LABS: ALBUMIN 2.4 g/dl (3.4-5.0); CALCIUM 8.4 mg/dL (8.5-10.1)
[2016-07-25 09:22] LABS: BILIRUBIN,TOTAL 1.4 mg/dL (0.2-1.0); COCKROFT - GAULT 20.4; CREATININE 3.9 mg/dL (0.7-1.3); TOT PROT 6.2 g/dl (6.4-8.2)
[2016-07-25] MEDS: METOPROLOL TARTRATE 25 MG TABLET (FP) PO SCH ×2 (10:16→21:58)
[2016-07-25] MEDS: PANTOPRAZOLE 40 MG TABLET (FP) PO SCH (10:17)
--- NOTE | 2016-07-25 14:01 | PN ---
Progress Note (short form) - Note Progress Note: Vascular Surgery note: PT known to surgical service from his prior admission. He was discharged on and return because of low oxygen saturation, Pt also found to have rapid a fib with hypotension in the ER. During his last admission, bilateral lower extremity debridment of his eschars was attempted. The procedure was aborted because he became unstable with a small amount of versed. Vital Signs Period Temp Pulse Resp BP Sys/Hubbard Pulse Ox Last 24 Hr 97 F-98.2 F 92-120 18-20 82-145/48-89 97-100 PE: GEN: alert bilateral lower ext with superfical eschar/positive foul odor. RLE eschar > than Left. On both lower ext the eschars are circumfrential with various lengths. The Right is 18cm in its longest measurement and the Left is 11cm in its greatest length. There are areas where the eschars have auto debrided and the tissue is a base of pink grantulation. Tendon is exposed on b/l lower ext. No eschar to the right heel, the left has a 4x3cm eschar. Right knee has a 3x1 cm wound and a 1x1cm wound. Sacral/perineum/testicular area: stage two eschar to sacral area with no eschar , some soft necrotic tissue in a horseshoe shape over sacrum extending inferior to ischial region perirectal area. Perineum with with small separate areas of skin break down, large area stage two ulcer over testicle area. CBC, BMP 07/25/16 06:00 A/P: 76 yo male, nonmobile with multiple wounds and significant cardiac co- morbities. Will surgically debride his b/l lower ext if the patient can be optimized for the OR. His wounds appear to be and some of the eschars have softened and are debriding with dressing changes. Will continue with local wound care. S/w Dr. Batres and camille will be placed on the wound to help with local/chemical debridment. Continue heel protectors with optifoam, also optifoam to sacrum, testicles and right knee.
--- NOTE | 2016-07-25 14:35 | PN ---
Progress Note, Physician History of Present Illness: More awake and alert No acute distress Afebrile WBC improved Blood c/s no growth - Current Medication List Current Medications: Active Medications Acetaminophen (Tylenol -) 325 mg PO Q6H PRN PRN Reason: FEVER Albumin Human (Albumin Human 25%) 12.5 gm IVPB Q30M [facility] Albuterol/Ipratropium (Duoneb -) 1 amp NEB QID PRN PRN Reason: SHORTNESS OF BREATH Brimonidine Tartrate (Alphagan P 0.1% -) 1 drop OU BID [facility] Heparin Sodium (Porcine) (Heparin -) 1,000 unit IVPUSH ONCE ONE Stop: 07/25/16 17:19 Heparin Sodium (Porcine) (Heparin -) 500 unit IVPUSH Q1H [facility] Stop: 07/25/16 19:31 Piperacillin Sod/Tazobactam Sod (Zosyn 2.25gm Ivpb (Pre-Docked)) 50 mls @ 100 mls/hr IVPB Q8H-IV [facility] PRN Reason: Protocol Last Admin: 07/25/16 10:17 Dose: 100 mls/hr Levothyroxine Sodium (Synthroid -) 50 mcg PO DAILY@0700 [facility] Last Admin: 07/25/16 06:29 Dose: 50 mcg Metoprolol Tartrate (Lopressor -) 12.5 mg PO BID [facility] Last Admin: 07/25/16 10:16 Dose: Not Given Pantoprazole Sodium (Protonix -) 40 mg PO DAILY [facility] Last Admin: 07/25/16 10:17 Dose: 40 mg - Objective Vital Signs: Vital Signs Temperature 98.2 F 07/25/16 08:15 Pulse Rate 110 H 07/25/16 08:15 Respiratory Rate 18 07/25/16 08:15 Blood Pressure 82/48 07/25/16 08:15 O2 Sat by Pulse Oximetry (%) 98 07/24/16 21:07 Constitutional: Yes: No Distress Eyes: Yes: Conjunctiva Clear Cardiovascular: Yes: Regular Rate and Rhythm, S1, S2 Respiratory: Yes: Diminished Gastrointestinal: Yes: Normal Bowel Sounds, Soft. No: Tenderness Extremities: Yes: Other (+ decubiti) Edema: Yes Labs: CBC, BMP 07/25/16 06:00 07/25/16 06:00 INR, PTT INR 1.79 (0.82-1.09) H 07/24/16 12:30 Assessment/Plan Hypotension, possible sepsis Rapid Afib ESRD Leukocytosis-improved Lactic acidosis Await c/s Continue empiric zosyn
--- NOTE | 2016-07-25 15:11 | CONS ---
DATE OF CONSULTATION: DATE OF DICTATION: 07/25/2016 HISTORY OF PRESENT ILLNESS: A 76-year-old male, history of end-stage renal disease, on hemodialysis, evaluated for possible sepsis. The patient had been discharged 1 day prior to the present admission after spending approximately 1 month in the hospital. He was returned from the senior care after he was noted to be hypotensive. The patient was found to be in rapid atrial fibrillation. A chest x-ray showed cardiomegaly with a right pleural effusion. Cultures were obtained and he was empirically treated with vancomycin and Zosyn. He is lethargic. Offers no focal complaint. No reports of labored breathing, cough, sputum production, vomiting, or diarrhea. He does have multiple decubitus ulcers. PAST MEDICAL HISTORY: Positive for end-stage renal disease, on hemodialysis, diabetes mellitus, congestive heart failure, COPD, decubitus ulcers. ALLERGIES: No known allergies. SOCIAL HISTORY: long term resident. No active tobacco or alcohol use. SYSTEMS REVIEW:Neurologic: No loss of consciousness, seizure activity, or focal weakness. Cardiac: As per HPI. Respiratory: Negative cough or sputum production. Gastrointestinal: Negative vomiting or diarrhea. Genitourinary: End-stage renal disease, on hemodialysis. LABORATORY DATA: White count 16.9, hematocrit 31.9, platelet count 106. BUN 38, creatinine 3.6, lactic acid 5.6. PHYSICAL EXAMINATION:General: The patient is awake, in no acute distress. He is lethargic. Vital Signs: Temperature 98.2, blood pressure 88/56, pulse 126, irregular, respirations 18 per minute. Chest: Dialysis catheter, left chest, no erythema or tenderness. HEENT: Sclerae are anicteric. Cardiac: Heart sounds irregular S1, S2. Tachycardic. Lungs: Diminished breath sounds bilaterally. Abdomen: Soft. No tenderness elicited. No mass, rebound, or rigidity. Extremities: Positive for decubitus ulcers, buttocks, sacral area, lower extremities bilaterally. IMPRESSION: 1. Sepsis, possible septic shock. 2. End-stage renal disease, on hemodialysis. 3. Lactic acidosis. 4. Leukocytosis. 5. History of methicillin-resistant Staphylococcus aureus. RECOMMENDATIONS: Pending sepsis workup, empiric antibiotic coverage with vancomycin and Zosyn adjusted for renal failure. Local wound care. Will follow. Thank you for the kind referral. JOSH CHILDS M.D. JAQUELINE/[id number]
--- NOTE | 2016-07-25 16:02 | CON.CARD ---
Consult Consult Specialty:: Cardiology Reason for Consultation:: Readmitted with hypoxia and hypotension - History of Present Illness Chief Complaint: hypoxia and hypotension History of Present Illness: This is a 76 year old male with known CAD and a prior OR (mild diffuse proximal RCA disease, no intervension), paroxsymmal atrial fib/flutter (was on Eliquis), HFrEF w9ith severely reduced LV systolic function, HTN, DM, CKD, and HLD. He was previously hospitalized at [facility] from 05/23/16 - 06/02/16 for cellulitis/shoulder abcess and lower extremity cellulitis with bacteremia. He was readmitted 07/02/16 with septic shock and acute on chronic renal failure and was getting hemodialysis. He required pressors and inotropic support at that time. An echocardiogram performed on 06/10/16 showed a severely decrease ejection fraction, left atrial enlargement, right atrial enlargement, mild AI, moderate MR, moderate TR, and mild pulmonary HTN. On 07/15/16 he had an episode of hypoxia and rapid atrial fibrillation which was related to anesthesia induction for the debridement surgery. He was D/C'd and readmitted after [facility] was [facility] to [facility] - Past Medical History Cardio/Vascular: Yes: AFIB (atrial flutter), CAD, CHF (chronic systolic CHF), HTN Pulmonary: Yes: COPD Gastrointestinal: Yes: Diverticulosis, Peptic Ulcer Disease Renal/: Yes: Renal Inusuff, Hemodialysis Endocrine: Yes: Diabetes Mellitus Additional Medical History: glaucoma - Past Surgical History Past Surgical History: Yes: Colonoscopy, Upper Endoscopy - Alcohol/Substance Use Hx Alcohol Use: No - Smoking History Smoking history: Never smoked Have you smoked in the past 12 months: No - Social History Usual Living Arrangement: Half-Way Occupation: worked for the [employer] Home Medications - Allergies Allergies/Adverse Reactions: Allergies Allergy/AdvReac Type Severity Reaction Status Date / Time No Known Allergies Allergy Verified 05/23/16 23:31 - Home Medications Home Medications: Ambulatory Orders Acetaminophen [Tylenol] 325 mg PO DAILY 07/24/16 Albuterol 2.5/Ipratropium 0.5 [Duoneb -] 1 neb IH QID 07/24/16 Amino Acid/Protein/Vit C/Zinc [Prosource Luis Protein Liquid] 946 ml PO DAILY 01/30 Ascorbic Acid [Vitamin C -] 500 mg PO DAILY 07/24/16 Diphenhydramine HCl [Benadryl -] 25 mg PO Q6H 07/24/16 Folic Acid 1 mg PO DAILY 07/24/16 Heparin - 5,000 unit SCJ TID 07/24/16 Insulin Lispro [Humalog Kwikpen] 200 unit SQ ASDIR 07/24/16 Levothyroxine [Synthroid -] 25 mcg PO DAILY 07/24/16 Metoprolol Succinate [Toprol Xl -] 25 mg PO DAILY 07/24/16 Multivitamin [Poly-Vitamin] 1 each PO DAILY 07/24/16 Nystatin Cream [Mycostatin] 1 applic TP BID 07/24/16 Tamsulosin HCl [Flomax] 0.4 mg PO DAILY 07/24/16 Vitamin B Comp W-C [Nephro-Mor -] 1 tablet PO DAILY 07/24/16 Zinc Sulfate 220 mg PO DAILY 07/24/16 Family Disease History - Family Disease History Family Disease History: Diabetes: Father Review of Systems Unable to obtain ROS, reason: As per HPI Vital Signs: Vital Signs Temperature 97.6 F 07/25/16 14:05 Pulse Rate 119 H 07/25/16 14:05 Respiratory Rate 18 07/25/16 14:05 Blood Pressure 79/50 07/25/16 14:05 O2 Sat by Pulse Oximetry (%) 98 07/24/16 21:07 Constitutional: Yes: Other (Ill appearing) Respiratory: Yes: Other (Poor insppiratory effort) Cardiovascular: Yes: Pulse Irregular Heart Sounds: Yes: S1, S2 (2/6 HSM, [place] to the axilla) Extremities: Yes: Other (Bilateral foot dressings) Edema: No - Other Data Labs, Other Data: CBC, BMP 07/25/16 06:00 07/25/16 06:00 INR, PTT INR 1.79 (0.82-1.09) H 07/24/16 12:30 Troponin, BNP 07/24/16 07/25/16 19:40 05:40 Troponin I 0.18 H 0.19 H Troponin, BNP 07/24/16 07/25/16 19:40 05:40 Troponin I 0.18 H 0.19 H Imaging - Results EKG: Report Reviewed (AFIB at 110 BPM, normal QRS intervals, normal QRS axis, abberently conducted complexes. Low voltage involving the limb leads.) Assessment/Plan Sepsis: Elevated WBC Hypotention noted ABX as per medical team Rapid AFIB: HR 110 at this time BP only 79/50 mmHg Would not give beta blockers at this time secondary to hypotension Was on Eliquis but presently is not on AC secondary to severe anemia noted last admission Would agree with holding off on AC at this time Positive troponins: Related to sepsis and renal insufficiency with demand ischemic Would continue to trend the levels Conservative care Will follow with you
[2016-07-25] MEDS ORDERED: ALBUMIN HUMAN 25% 12.5 GM/50 ML VIAL IVPB SCH (17:30)
[2016-07-25] MEDS: COLLAGENASE CLOSTRIDIUM HIST. 30 GRAMS TUBE TP SCH (17:58)
--- NOTE | 2016-07-25 19:05 | PN ---
Progress Note, Physician History of Present Illness: Pt seen and examined at bedside. He is awake and appears comfortable. - Current Medication List Current Medications: Active Medications Acetaminophen (Tylenol -) 325 mg PO Q6H PRN PRN Reason: FEVER Albumin Human (Albumin Human 25%) 12.5 gm IVPB Q30M [facility] Albuterol/Ipratropium (Duoneb -) 1 amp NEB QID PRN PRN Reason: SHORTNESS OF BREATH Brimonidine Tartrate (Alphagan P 0.1% -) 1 drop OU BID [facility] Collagenase (Santyl -) 1 applic TP DAILY [facility] Last Admin: 07/25/16 17:58 Dose: 1 applic Heparin Sodium (Porcine) (Heparin -) 1,000 unit IVPUSH ONCE ONE Stop: 07/25/16 17:19 Heparin Sodium (Porcine) (Heparin -) 500 unit IVPUSH Q1H [facility] Stop: 07/25/16 19:31 Piperacillin Sod/Tazobactam Sod (Zosyn 2.25gm Ivpb (Pre-Docked)) 50 mls @ 100 mls/hr IVPB Q8H-IV [facility] PRN Reason: Protocol Last Admin: 07/25/16 17:59 Dose: 100 mls/hr Levothyroxine Sodium (Synthroid -) 50 mcg PO DAILY@0700 [facility] Last Admin: 07/25/16 06:29 Dose: 50 mcg Metoprolol Tartrate (Lopressor -) 12.5 mg PO BID [facility] Last Admin: 07/25/16 10:16 Dose: Not Given Pantoprazole Sodium (Protonix -) 40 mg PO DAILY [facility] Last Admin: 07/25/16 10:17 Dose: 40 mg - Objective Vital Signs: Vital Signs Temperature 97.6 F 07/25/16 14:05 Pulse Rate 119 H 07/25/16 14:05 Respiratory Rate 18 07/25/16 14:05 Blood Pressure 79/50 07/25/16 14:05 O2 Sat by Pulse Oximetry (%) 4 L 07/25/16 09:00 Constitutional: Yes: Calm Eyes: Yes: Conjunctiva Clear Cardiovascular: Yes: S1, S2 Respiratory: Yes: On Nasal O2 Gastrointestinal: Yes: Soft Genitourinary: Yes: Incontinence Musculoskeletal: Yes: Muscle Weakness Edema: No Wound/Incision: Yes: Dressing Dry and Intact Neurological: Yes: Oriented Psychiatric: Yes: Oriented Labs: CBC, BMP 07/25/16 06:00 07/25/16 06:00 INR, PTT INR 1.79 (0.82-1.09) H 07/24/16 12:30 Problem List - Problems (1) End stage renal disease on dialysis Code(s): N18.6 - END STAGE RENAL DISEASE Z99.2 - DEPENDENCE ON RENAL DIALYSIS (2) Hypotension Code(s): I95.9 - HYPOTENSION, UNSPECIFIED Qualifiers: Hypotension type: unspecified hypotension type Qualified Code(s): I95.9 - Hypotension, unspecified (3) Anemia Code(s): D64.9 - ANEMIA, UNSPECIFIED Qualifiers: Other causes of anemia: chronic disease, kidney Assessment/Plan Current Medications Generic Name Dose Route Start Last Admin Trade Name Freq PRN Reason Stop Dose Admin Acetaminophen 325 mg 07/24/16 13:31 Tylenol - PO Q6H PRN FEVER Albumin Human 12.5 gm 07/25/16 17:30 Albumin Human 25% IVPB Q30M [facility] Albuterol/Ipratropium 1 amp 07/24/16 13:31 Duoneb - NEB QID PRN SHORTNESS OF BREATH Brimonidine Tartrate 1 drop 07/25/16 22:00 Alphagan P 0.1% - OU BID [facility] Collagenase 1 applic 07/25/16 15:30 07/25/16 17:58 Santyl - TP 1 applic DAILY [facility] Administration Heparin Sodium (Porcine) 1,000 unit 07/25/16 17:18 Heparin - IVPUSH 07/25/16 17:19 ONCE ONE Heparin Sodium (Porcine) 500 unit 07/25/16 17:30 Heparin - IVPUSH 07/25/16 19:31 Q1H [facility] Piperacillin Sod/Tazobactam Sod 50 mls @ 100 mls/hr 07/25/16 02:00 07/25/16 17: 59 Zosyn 2.25gm Ivpb (Pre-Docked) IVPB 100 mls/hr Q8H-IV [facility] Administration Protocol Levothyroxine Sodium 50 mcg 07/25/16 07:00 07/25/16 06:29 Synthroid - PO 50 mcg DAILY@0700 [facility] Administration Metoprolol Tartrate 12.5 mg 07/24/16 22:00 07/25/16 10:16 Lopressor - PO Not Given BID [facility] Pantoprazole Sodium 40 mg 07/25/16 10:00 07/25/16 10:17 Protonix - PO 40 mg DAILY [facility] Administration Impression 1. ESRD on HD 2. hypotension 3. cellulitis/abscess of back 4. CHF 5. hypothyroidism 6. hyperlipidemia 7. COPD 8. a-fib Plan - pt was dialyzed on Thursday and Thursday, will arrange for HD in am (Thursday) secondary to scheduling - repeat labs in am - cont wound care - will need fistula once more stable - oxygen and bipap as needed - one to one feeds
[2016-07-25] MEDS: BRIMONIDINE TARTRATE 0.1% OPHTHALMIC 5 ML BOTTLE OU SCH (21:58)
[2016-07-26] MEDS: PIPERACILLIN/TAZOB 2.25 GM 50 ML IVPB SCH ×3 (02:52→18:15)
[2016-07-26] MEDS: LEVOTHYROXINE NA 50 MCG TABLET (FP) PO SCH (05:59)
[2016-07-26] MEDS ORDERED: HEPARIN NA (PORCINE) 5,000 UNITS/ML 1ML VIAL IVPUSH ONE (06:15)
[2016-07-26] MEDS: ALBUMIN HUMAN 25% 12.5 GM/50 ML VIAL IVPB SCH ×2 (08:18→08:19)
[2016-07-26] MEDS: HEPARIN NA (PORCINE) 5,000 UNITS/ML 1ML VIAL IVPUSH SCH (08:18)
[2016-07-26 08:28] LABS: BASOPHIL 0.3 % (0-2.0); EOSINOPHIL 1.5 % (0-4.5); MCH 27.9 pg (25.7-33.7); MCHC 30.1 g/dl (32.0-35.9); MEAN CELL VOLUME 92.8 fl (80-96); MEAN PLT VOLUME 9.9 fl (7.5-11.1); NEUTROPHILS 81.2 % (42.8-82.8); PLATELET COUNT 93 K/MM3 (134-434); RDW 21.7 % (11.9-15.9)
--- NOTE | 2016-07-26 08:39 | PN ---
Progress Note, Physician Chief Complaint: Alert and cooperative. Getting HD currently History of Present Illness: This is a 76 year old male with known CAD and a prior ND (mild diffuse proximal RCA disease, no intervension), paroxsymmal atrial fib/flutter (was on Eliquis), HFrEF w9ith severely reduced LV systolic function, HTN, DM, CKD, and HLD. He was previously hospitalized at [facility] from 05/23/16 - 06/02/16 for cellulitis/shoulder abcess and lower extremity cellulitis with bacteremia. He was readmitted 07/02/16 with septic shock and acute on chronic renal failure and was getting hemodialysis. He required pressors and inotropic support at that time. An echocardiogram performed on 06/10/16 showed a severely decrease ejection fraction, left atrial enlargement, right atrial enlargement, mild AI, moderate MR, moderate TR, and mild pulmonary HTN. On 07/15/16 he had an episode of hypoxia and rapid atrial fibrillation which was related to anesthesia induction for the debridement surgery. He was D/C'd and readmitted after he was found to have hypoxia and hypotension at the [facility]. - Current Medication List Current Medications: Active Medications Acetaminophen (Tylenol -) 325 mg PO Q6H PRN PRN Reason: FEVER Albuterol/Ipratropium (Duoneb -) 1 amp NEB QID PRN PRN Reason: SHORTNESS OF BREATH Brimonidine Tartrate (Alphagan P 0.1% -) 1 drop OU BID [facility] Last Admin: 07/25/16 21:58 Dose: 1 drop Collagenase (Santyl -) 1 applic TP DAILY [facility] Last Admin: 07/25/16 17:58 Dose: 1 applic Piperacillin Sod/Tazobactam Sod (Zosyn 2.25gm Ivpb (Pre-Docked)) 50 mls @ 100 mls/hr IVPB Q8H-IV [facility] PRN Reason: Protocol Last Admin: 07/26/16 02:52 Dose: 100 mls/hr Levothyroxine Sodium (Synthroid -) 50 mcg PO DAILY@0700 [facility] Last Admin: 07/26/16 05:59 Dose: 50 mcg Metoprolol Tartrate (Lopressor -) 12.5 mg PO BID [facility] Last Admin: 07/25/16 21:58 Dose: Not Given Pantoprazole Sodium (Protonix -) 40 mg PO DAILY [facility] Last Admin: 07/25/16 10:17 Dose: 40 mg - Objective Vital Signs: Vital Signs Temperature 97.4 F L 07/26/16 05:57 Pulse Rate 111 H 07/26/16 05:57 Respiratory Rate 16 07/26/16 05:57 Blood Pressure 80/51 07/26/16 05:57 O2 Sat by Pulse Oximetry (%) 95 07/26/16 01:37 Constitutional: Yes: No Distress Cardiovascular: Yes: Tachycardia, Pulse Irregular Respiratory: Yes: CTA Bilaterally Gastrointestinal: Yes: Normal Bowel Sounds Extremities: Yes: Cold Edema: No Labs: CBC, BMP 07/26/16 07:00 INR, PTT INR 1.79 (0.82-1.09) H 07/24/16 12:30 Problem List - Problems (1) Hypotension Code(s): I95.9 - HYPOTENSION, UNSPECIFIED Qualifiers: Hypotension type: unspecified hypotension type Qualified Code(s): I95.9 - Hypotension, unspecified (2) Rapid atrial fibrillation Assessment/Plan: HR 110-130 on telemetry in Afib. Low BP precludes using beta blockers or CCB. Options are limited. Recommend stopping metoprolol and start Amiodarone 400mg TID for rate control. He is not a candidate for AC at this time. Code(s): I48.91 - UNSPECIFIED ATRIAL FIBRILLATION
[2016-07-26 08:42] LABS: CALCIUM 8.1 mg/dL (8.5-10.1); COCKROFT - GAULT 17.51; CREATININE 4.6 mg/dL (0.7-1.3)
[2016-07-26] MEDS: METOPROLOL TARTRATE 25 MG TABLET (FP) PO SCH ×2 (10:23→22:03)
--- NOTE | 2016-07-26 10:29 | PN ---
Progress Note, Physician Chief Complaint: on BIPAP had HD this AM Spoke with Renal No distress Pt does have periods of lucidness Stated that his /spouse was Kia Aguilar standing at bedside - Current Medication List Current Medications: Active Medications Acetaminophen (Tylenol -) 325 mg PO Q6H PRN PRN Reason: FEVER Albuterol/Ipratropium (Duoneb -) 1 amp NEB QID PRN PRN Reason: SHORTNESS OF BREATH Brimonidine Tartrate (Alphagan P 0.1% -) 1 drop OU BID [facility] Last Admin: 07/25/16 21:58 Dose: 1 drop Collagenase (Santyl -) 1 applic TP DAILY [facility] Last Admin: 07/25/16 17:58 Dose: 1 applic Piperacillin Sod/Tazobactam Sod (Zosyn 2.25gm Ivpb (Pre-Docked)) 50 mls @ 100 mls/hr IVPB Q8H-IV [facility] PRN Reason: Protocol Last Admin: 07/26/16 10:23 Dose: 100 mls/hr Levothyroxine Sodium (Synthroid -) 50 mcg PO DAILY@0700 [facility] Last Admin: 07/26/16 05:59 Dose: 50 mcg Metoprolol Tartrate (Lopressor -) 12.5 mg PO BID [facility] Last Admin: 07/26/16 10:23 Dose: Not Given Pantoprazole Sodium (Protonix -) 40 mg PO DAILY [facility] Last Admin: 07/25/16 10:17 Dose: 40 mg - Objective Vital Signs: Vital Signs Temperature 98.2 F 07/26/16 06:25 Pulse Rate 94 H 07/26/16 10:00 Respiratory Rate 18 07/26/16 10:00 Blood Pressure 84/58 07/26/16 10:00 O2 Sat by Pulse Oximetry (%) 93 L 07/26/16 09:00 Constitutional: Yes: No Distress Cardiovascular: Yes: Regular Rate and Rhythm, Tachycardia Respiratory: Yes: Diminished Gastrointestinal: Yes: Normal Bowel Sounds, Soft. No: Distention, Tenderness Extremities: Yes: Other (multiple feet wounds) Edema: Yes Edema: LLE: Trace, RLE: Trace Labs: CBC, BMP 07/26/16 07:00 07/26/16 07:00 INR, PTT INR 1.79 (0.82-1.09) H 05/11/17 12:30 Problem List - Problems (1) Congestive heart failure (CHF) Code(s): I50.9 - HEART FAILURE, UNSPECIFIED Qualifiers: Congestive heart failure type: systolic Congestive heart failure chronicity: chronic Qualified Code(s): I50.22 - Chronic systolic (congestive ) heart failure (2) DMII (diabetes mellitus, type 2) Code(s): E11.9 - TYPE 2 DIABETES MELLITUS WITHOUT COMPLICATIONS Qualifiers: Diabetes mellitus complication detail: with other kidney complication (3) HTN (hypertension) Code(s): I10 - ESSENTIAL (PRIMARY) HYPERTENSION Qualifiers: Hypertension type: essential hypertension Qualified Code(s): I10 - Essential (primary) hypertension (4) Pressure ulcer of lower extremity, stage 1 Code(s): L89.891 - PRESSURE ULCER OF OTHER SITE, STAGE 1 (5) Sepsis Code(s): A41.9 - SEPSIS, UNSPECIFIED ORGANISM Qualifiers: Sepsis type: sepsis due to unspecified organism Qualified Code(s): A41.9 - Sepsis, unspecified organism (6) Rapid atrial fibrillation Code(s): I48.91 - UNSPECIFIED ATRIAL FIBRILLATION (7) Functional quadriplegia Code(s): R53.2 - FUNCTIONAL QUADRIPLEGIA (8) End stage renal disease on dialysis Code(s): N18.6 - END STAGE RENAL DISEASE Z99.2 - DEPENDENCE ON RENAL DIALYSIS Assessment/Plan PLAN SEPSIS Empiric antibiotics blood cultures negative WBC decreased HYPOTENSION baseline blood pressure is on the lower side, monitor blood pressure. asymptomatic end-stage renal disease on dialysis HD per Renal Does not appear to be clinically volume overloaded elevated troponins, rapid A. fib Cardiology follow up noted On Telemetry Not a candidate for anticoagulation on Lopressor for rate control CHF compensated systolic heart failure Not on AceI or ARB due to hypotension advanced directives patient is DNR Spoke with -- she requests that she is primary health care proxy and not the pt's niece--will call for palliative consult showcase trimmer ramakrishna for [facility]- she requests [facility]
--- NOTE | 2016-07-26 11:55 | PN ---
Progress Note, Physician History of Present Illness: Pt seen and examined at bedside. He is awake. He tolerated HD today. - Current Medication List Current Medications: Active Medications Acetaminophen (Tylenol -) 325 mg PO Q6H PRN PRN Reason: FEVER Albuterol/Ipratropium (Duoneb -) 1 amp NEB QID PRN PRN Reason: SHORTNESS OF BREATH Brimonidine Tartrate (Alphagan P 0.1% -) 1 drop OU BID [facility] Last Admin: 07/25/16 21:58 Dose: 1 drop Collagenase (Santyl -) 1 applic TP DAILY [facility] Last Admin: 07/25/16 17:58 Dose: 1 applic Piperacillin Sod/Tazobactam Sod (Zosyn 2.25gm Ivpb (Pre-Docked)) 50 mls @ 100 mls/hr IVPB Q8H-IV [facility] PRN Reason: Protocol Last Admin: 07/26/16 10:23 Dose: 100 mls/hr Levothyroxine Sodium (Synthroid -) 50 mcg PO DAILY@0700 [facility] Last Admin: 07/26/16 05:59 Dose: 50 mcg Metoprolol Tartrate (Lopressor -) 12.5 mg PO BID [facility] Last Admin: 07/26/16 10:23 Dose: Not Given Pantoprazole Sodium (Protonix -) 40 mg PO DAILY [facility] Last Admin: 07/25/16 10:17 Dose: 40 mg - Objective Vital Signs: Vital Signs Temperature 97.8 F 07/26/16 11:21 Pulse Rate 104 H 07/26/16 11:21 Respiratory Rate 20 07/26/16 11:21 Blood Pressure 95/54 07/26/16 11:21 O2 Sat by Pulse Oximetry (%) 95 07/26/16 09:00 Constitutional: Yes: Calm Eyes: Yes: Conjunctiva Clear HENT: Yes: Atraumatic Neck: Yes: Supple Cardiovascular: Yes: S1, S2 Respiratory: Yes: On BiPap Gastrointestinal: Yes: Soft Genitourinary: Yes: Incontinence Musculoskeletal: Yes: Muscle Weakness Edema: Yes Edema: LLE: Trace, RLE: Trace Neurological: Yes: Oriented Labs: CBC, BMP 07/26/16 07:00 07/26/16 07:00 INR, PTT INR 1.79 (0.82-1.09) H 07/24/16 12:30 Problem List - Problems (1) End stage renal disease on dialysis Code(s): N18.6 - END STAGE RENAL DISEASE Z99.2 - DEPENDENCE ON RENAL DIALYSIS (2) Hypotension Code(s): I95.9 - HYPOTENSION, UNSPECIFIED Qualifiers: Hypotension type: unspecified hypotension type Qualified Code(s): I95.9 - Hypotension, unspecified (3) Anemia Code(s): D64.9 - ANEMIA, UNSPECIFIED Qualifiers: Other causes of anemia: chronic disease, kidney Assessment/Plan Current Medications Generic Name Dose Route Start Last Admin Trade Name Freq PRN Reason Stop Dose Admin Acetaminophen 325 mg 07/24/16 13:31 Tylenol - PO Q6H PRN FEVER Albuterol/Ipratropium 1 amp 07/24/16 13:31 Duoneb - NEB QID PRN SHORTNESS OF BREATH Brimonidine Tartrate 1 drop 07/25/16 22:00 07/25/16 21:58 Alphagan P 0.1% - OU 1 drop BID [facility] Administration Collagenase 1 applic 07/25/16 15:30 07/25/16 17:58 Santyl - TP 1 applic DAILY [facility] Administration Piperacillin Sod/Tazobactam Sod 50 mls @ 100 mls/hr 07/25/16 02:00 07/26/16 10: 23 Zosyn 2.25gm Ivpb (Pre-Docked) IVPB 100 mls/hr Q8H-IV [facility] Administration Protocol Levothyroxine Sodium 50 mcg 07/25/16 07:00 07/26/16 05:59 Synthroid - PO 50 mcg DAILY@0700 [facility] Administration Metoprolol Tartrate 12.5 mg 07/24/16 22:00 07/26/16 10:23 Lopressor - PO Not Given BID [facility] Pantoprazole Sodium 40 mg 07/25/16 10:00 07/25/16 10:17 Protonix - PO 40 mg DAILY [facility] Administration Impression 1. ESRD on HD 2. hypotension 3. cellulitis/abscess of back 4. CHF 5. hypothyroidism 6. hyperlipidemia 7. COPD 8. a-fib Plan - pt tolerated HD today - pt is chronically hypotensive - check pulse ox - discussed with family - cont wound care - will need fistula once more stable - oxygen and bipap as needed - one to one feeds
[2016-07-26] MEDS: BRIMONIDINE TARTRATE 0.1% OPHTHALMIC 5 ML BOTTLE OU SCH ×2 (12:30→22:10)
[2016-07-26] MEDS: PANTOPRAZOLE 40 MG TABLET (FP) PO SCH (12:30)
[2016-07-26] MEDS: COLLAGENASE CLOSTRIDIUM HIST. 30 GRAMS TUBE TP SCH (12:30)
[2016-07-26] MEDS: AMIODARONE HCL 200 MG TABLET (FP) PO SCH ×2 (14:33→22:04)
[2016-07-27] MEDS: PIPERACILLIN/TAZOB 2.25 GM 50 ML IVPB SCH ×3 (02:10→18:42)
[2016-07-27] MEDS: LEVOTHYROXINE NA 50 MCG TABLET (FP) PO SCH (06:26)
[2016-07-27] MEDS: AMIODARONE HCL 200 MG TABLET (FP) PO SCH ×3 (06:26→22:02)
--- NOTE | 2016-07-27 08:42 | PN ---
Progress Note, Physician Chief Complaint: Opens eyes History of Present Illness: This is a 76 year old male with known CAD and a prior AR (mild diffuse proximal RCA disease, no intervension), paroxsymmal atrial fib/flutter (was on Eliquis), HFrEF w9ith severely reduced LV systolic function, HTN, DM, CKD, and HLD. He was previously hospitalized at [facility] from 05/23/16 - 06/02/16 for cellulitis/shoulder abcess and lower extremity cellulitis with bacteremia. He was readmitted 07/02/16 with septic shock and acute on chronic renal failure and was getting hemodialysis. He required pressors and inotropic support at that time. An echocardiogram performed on 06/10/16 showed a severely decrease ejection fraction, left atrial enlargement, right atrial enlargement, mild AI, moderate MR, moderate TR, and mild pulmonary HTN. On 07/15/16 he had an episode of hypoxia and rapid atrial fibrillation which was related to anesthesia induction for the debridement surgery. He was D/C'd and readmitted after he was found to have hypoxia and hypotension at the [facility]. Telemetry Afib HR 90-100 - Current Medication List Current Medications: Active Medications Acetaminophen (Tylenol -) 325 mg PO Q6H PRN PRN Reason: FEVER Albuterol/Ipratropium (Duoneb -) 1 amp NEB QID PRN PRN Reason: SHORTNESS OF BREATH Amiodarone HCl (Cordarone -) 400 mg PO TID [facility] Last Admin: 07/27/16 06:26 Dose: 400 mg Brimonidine Tartrate (Alphagan P 0.1% -) 1 drop OU BID [facility] Last Admin: 07/26/16 22:10 Dose: 1 drop Collagenase (Santyl -) 1 applic TP DAILY [facility] Last Admin: 07/26/16 12:30 Dose: 1 applic Piperacillin Sod/Tazobactam Sod (Zosyn 2.25gm Ivpb (Pre-Docked)) 50 mls @ 100 mls/hr IVPB Q8H-IV [facility] PRN Reason: Protocol Last Admin: 07/27/16 02:10 Dose: 100 mls/hr Levothyroxine Sodium (Synthroid -) 50 mcg PO DAILY@0700 [facility] Last Admin: 07/27/16 06:26 Dose: 50 mcg Metoprolol Tartrate (Lopressor -) 12.5 mg PO BID [facility] Last Admin: 07/26/16 22:03 Dose: Not Given Pantoprazole Sodium (Protonix -) 40 mg PO DAILY [facility] Last Admin: 07/26/16 12:30 Dose: 40 mg - Objective Vital Signs: Vital Signs Temperature 96.8 F L 07/27/16 05:36 Pulse Rate 110 H 07/27/16 05:36 Respiratory Rate 20 07/27/16 05:36 Blood Pressure 92/68 07/27/16 05:36 O2 Sat by Pulse Oximetry (%) 96 07/27/16 03:15 Constitutional: Yes: Thin Eyes: Yes: WNL HENT: Yes: WNL, Atraumatic Neck: Yes: WNL Cardiovascular: Yes: WNL, Pulse Irregular Respiratory: Yes: Diminished Gastrointestinal: Yes: Normal Bowel Sounds Edema: No Labs: CBC, BMP 07/26/16 07:00 07/26/16 07:00 INR, PTT INR 1.79 (0.82-1.09) H 07/24/16 12:30 Problem List - Problems (1) Hypotension Code(s): I95.9 - HYPOTENSION, UNSPECIFIED Qualifiers: Hypotension type: unspecified hypotension type Qualified Code(s): I95.9 - Hypotension, unspecified (2) Rapid atrial fibrillation Assessment/Plan: Options for rate control are limited. His HR has improved on Amiodarone which is being used for rate control. Code(s): I48.91 - UNSPECIFIED ATRIAL FIBRILLATION
--- NOTE | 2016-07-27 08:57 | PN ---
Progress Note, Physician Chief Complaint: pt off BIPAP now makes more sense ate breakfast today no distress weak - Current Medication List Current Medications: Active Medications Acetaminophen (Tylenol -) 325 mg PO Q6H PRN PRN Reason: FEVER Albuterol/Ipratropium (Duoneb -) 1 amp NEB QID PRN PRN Reason: SHORTNESS OF BREATH Amiodarone HCl (Cordarone -) 400 mg PO TID [facility] Last Admin: 07/27/16 06:26 Dose: 400 mg Brimonidine Tartrate (Alphagan P 0.1% -) 1 drop OU BID [facility] Last Admin: 07/26/16 22:10 Dose: 1 drop Collagenase (Santyl -) 1 applic TP DAILY [facility] Last Admin: 07/26/16 12:30 Dose: 1 applic Piperacillin Sod/Tazobactam Sod (Zosyn 2.25gm Ivpb (Pre-Docked)) 50 mls @ 100 mls/hr IVPB Q8H-IV [facility] PRN Reason: Protocol Last Admin: 07/27/16 02:10 Dose: 100 mls/hr Levothyroxine Sodium (Synthroid -) 50 mcg PO DAILY@0700 [facility] Last Admin: 07/27/16 06:26 Dose: 50 mcg Metoprolol Tartrate (Lopressor -) 12.5 mg PO BID [facility] Last Admin: 07/26/16 22:03 Dose: Not Given Pantoprazole Sodium (Protonix -) 40 mg PO DAILY [facility] Last Admin: 07/26/16 12:30 Dose: 40 mg - Objective Vital Signs: Vital Signs Temperature 96.8 F L 07/27/16 05:36 Pulse Rate 116 H 07/27/16 08:38 Respiratory Rate 24 07/27/16 08:38 Blood Pressure 109/56 07/27/16 08:38 O2 Sat by Pulse Oximetry (%) 96 07/27/16 03:15 Constitutional: Yes: No Distress Cardiovascular: Yes: Pulse Irregular Respiratory: Yes: Diminished Gastrointestinal: Yes: Normal Bowel Sounds, Soft. No: Distention, Tenderness Extremities: Yes: Other (multiple leg wounds) Edema: Yes Labs: CBC, BMP 07/26/16 07:00 07/26/16 07:00 INR, PTT INR 1.79 (0.82-1.09) H 07/24/16 12:30 Problem List - Problems (1) Congestive heart failure (CHF) Code(s): I50.9 - HEART FAILURE, UNSPECIFIED Qualifiers: Congestive heart failure type: systolic Congestive heart failure chronicity: chronic Qualified Code(s): I50.22 - Chronic systolic (congestive ) heart failure (2) DMII (diabetes mellitus, type 2) Code(s): E11.9 - TYPE 2 DIABETES MELLITUS WITHOUT COMPLICATIONS Qualifiers: Diabetes mellitus complication detail: with other kidney complication (3) HTN (hypertension) Code(s): I10 - ESSENTIAL (PRIMARY) HYPERTENSION Qualifiers: Hypertension type: essential hypertension Qualified Code(s): I10 - Essential (primary) hypertension (4) Pressure ulcer of lower extremity, stage 1 Code(s): L89.891 - PRESSURE ULCER OF OTHER SITE, STAGE 1 (5) Sepsis Code(s): A41.9 - SEPSIS, UNSPECIFIED ORGANISM Qualifiers: Sepsis type: sepsis due to unspecified organism Qualified Code(s): A41.9 - Sepsis, unspecified organism (6) Rapid atrial fibrillation Code(s): I48.91 - UNSPECIFIED ATRIAL FIBRILLATION (7) Functional quadriplegia Code(s): R53.2 - FUNCTIONAL QUADRIPLEGIA (8) End stage renal disease on dialysis Code(s): N18.6 - END STAGE RENAL DISEASE Z99.2 - DEPENDENCE ON RENAL DIALYSIS Assessment/Plan PLAN SEPSIS Empiric antibiotics blood cultures negative WBC decreased HYPOTENSION baseline blood pressure is on the lower side, monitor blood pressure. asymptomatic end-stage renal disease on dialysis HD per Renal Does not appear to be clinically volume overloaded elevated troponins, rapid A. fib Cardiology follow up noted On Telemetry Not a candidate for anticoagulation rate control with Amiodarone- started yesterday as per Cardiology note tele shows heart rate to be in 120's CHF compensated systolic heart failure Not on AceI or ARB due to hypotension advanced directives patient is DNR BIPAP as needed PT eval
--- NOTE | 2016-07-27 09:46 | PN ---
Progress Note, Physician History of Present Illness: More awake and alert No complaints Afebrile WBC slightly elevated Blood c/s no growth - Current Medication List Current Medications: Active Medications Acetaminophen (Tylenol -) 325 mg PO Q6H PRN PRN Reason: FEVER Albuterol/Ipratropium (Duoneb -) 1 amp NEB QID PRN PRN Reason: SHORTNESS OF BREATH Amiodarone HCl (Cordarone -) 400 mg PO TID [facility] Last Admin: 07/27/16 06:26 Dose: 400 mg Brimonidine Tartrate (Alphagan P 0.1% -) 1 drop OU BID [facility] Last Admin: 07/26/16 22:10 Dose: 1 drop Collagenase (Santyl -) 1 applic TP DAILY [facility] Last Admin: 07/26/16 12:30 Dose: 1 applic Piperacillin Sod/Tazobactam Sod (Zosyn 2.25gm Ivpb (Pre-Docked)) 50 mls @ 100 mls/hr IVPB Q8H-IV [facility] PRN Reason: Protocol Last Admin: 07/27/16 02:10 Dose: 100 mls/hr Levothyroxine Sodium (Synthroid -) 50 mcg PO DAILY@0700 [facility] Last Admin: 07/27/16 06:26 Dose: 50 mcg Metoprolol Tartrate (Lopressor -) 12.5 mg PO BID [facility] Last Admin: 07/26/16 22:03 Dose: Not Given Pantoprazole Sodium (Protonix -) 40 mg PO DAILY [facility] Last Admin: 07/26/16 12:30 Dose: 40 mg - Objective Vital Signs: Vital Signs Temperature 96.8 F L 07/27/16 05:36 Pulse Rate 116 H 07/27/16 08:38 Respiratory Rate 24 07/27/16 08:38 Blood Pressure 109/56 07/27/16 08:38 O2 Sat by Pulse Oximetry (%) 96 07/27/16 03:15 Constitutional: Yes: No Distress Eyes: Yes: Conjunctiva Clear Cardiovascular: Yes: Regular Rate and Rhythm Respiratory: Yes: Diminished Gastrointestinal: Yes: Normal Bowel Sounds, Soft. No: Tenderness Edema: Yes Labs: CBC, BMP 07/26/16 07:00 07/26/16 07:00 INR, PTT INR 1.79 (0.82-1.09) H 07/24/16 12:30 Assessment/Plan Hypotension, possible sepsis Rapid Afib ESRD Leukocytosis-improved Thrombocytopenia Lactic acidosis Continue empiric zosyn
[2016-07-27] MEDS ORDERED: PT OWN MED DRAWER 7, Y5N ONE (10:49)
[2016-07-27] MEDS: METOPROLOL TARTRATE 25 MG TABLET (FP) PO SCH ×2 (11:14→22:16)
[2016-07-27] MEDS: PANTOPRAZOLE 40 MG TABLET (FP) PO SCH (11:15)
[2016-07-27] MEDS: BRIMONIDINE TARTRATE 0.1% OPHTHALMIC 5 ML BOTTLE OU SCH ×2 (12:18→22:13)
[2016-07-27] MEDS: COLLAGENASE CLOSTRIDIUM HIST. 30 GRAMS TUBE TP SCH (15:17)
[2016-07-28] MEDS: PIPERACILLIN/TAZOB 2.25 GM 50 ML IVPB SCH ×2 (02:30→09:37)
[2016-07-28] MEDS: AMIODARONE HCL 200 MG TABLET (FP) PO SCH ×3 (06:23→22:18)
[2016-07-28] MEDS: LEVOTHYROXINE NA 50 MCG TABLET (FP) PO SCH (06:23)
--- NOTE | 2016-07-28 06:47 | HOSP ---
Subjective - Review of Symptoms Events since last encounter: a piece of equipment from the wall fell on patients forehead. Subjective: patient resting in bed comfortably, not complaining of pain, has no forehead abrasionsof contusions, ice pack in place. no h/a, confusion or n/v. aao0 x3. denies focal neuro deficits HEENT: No: Head Aches, Visual Changes, Eye Pain Pulmonary: No: Dyspnea Cardiovascular: No: Chest Pain Gastrointestinal: No: Nausea, Vomiting Neurological: No: Weakness, Numbness, Change in speech, Confusion, Seizures Physical Examination Vital Signs: Vital Signs Temperature 96.6 F L 07/28/16 02:51 Pulse Rate 99 H 07/28/16 02:51 Respiratory Rate 20 07/28/16 02:51 Blood Pressure 82/43 07/28/16 02:51 O2 Sat by Pulse Oximetry (%) 94 L 07/27/16 21:00 Constitutional: Yes: No Distress, Calm Eyes: Yes: Conjunctiva Clear, EOM Intact, PERRL. No: Sclera Icterus HENT: Yes: Atraumatic, Normocephalic Neck: Yes: Supple Cardiovascular: Yes: Regular Rate and Rhythm, S1, S2 Respiratory: Yes: CTA Bilaterally Gastrointestinal: Yes: Normal Bowel Sounds Neurological: Yes: Alert, Oriented, Cran Nerves II-XII Intact. No: Dysarthria, Facial Droop, Lethargy, Loss of Sensation, Numbness, Paresthesia, Seizure Labs: CBC, BMP 07/26/16 07:00 07/26/16 07:00 Hospitalist Encounter Assessment: milt mechanical injury to forehead -no abrasion/contusion -no symptoms or neuro findings -ice pack to forehead PRN -no imaging indicated -neuro check in 2 hr Visit type - Emergency Visit Emergency Visit: Yes ED Registration Date: 07/24/16 Care time: The patient presented to the Emergency Department on the above date and was hospitalized for further evaluation of their emergent condition. - New Patient This patient is new to me today: Yes Date on this admission: 07/28/16 - Critical Care Critical Care patient: No
--- NOTE | 2016-07-28 08:37 | PN ---
Progress Note (short form) - Note Progress Note: Subjective Patient seen and examined. Chart reviewed. Awake and comfortable. No distress. All followups noted. Patient denies pain. Culture negative so far. WBCs trending down. Objective Last Vital Signs Temp Pulse Resp BP Pulse Ox 96.6 F L 99 H 20 82/43 94 L 07/28/16 02:51 07/28/16 02:51 07/28/16 02:51 07/28/16 02:51 07/27/16 21:00 CBC, BMP 07/26/16 07:00 07/26/16 07:00 Active Medications Generic Name Dose Route Start Last Admin Trade Name Freq PRN Reason Stop Dose Admin Acetaminophen 325 mg 07/24/16 13:31 07/28/16 06:22 Tylenol - PO 325 mg Q6H PRN Administration FEVER Albuterol/Ipratropium 1 amp 07/24/16 13:31 Duoneb - NEB QID PRN SHORTNESS OF BREATH Amiodarone HCl 400 mg 07/26/16 14:00 07/28/16 06:23 Cordarone - PO 400 mg TID [facility]I Administration Brimonidine Tartrate 1 drop 07/25/16 22:00 07/28/16 09:37 Alphagan P 0.1% - OU 1 drop BID [facility] Administration Collagenase 1 applic 07/25/16 15:30 07/28/16 09:37 Santyl - TP 1 applic DAILY [facility] Administration Piperacillin Sod/Tazobactam Sod 50 mls @ 100 mls/hr 07/25/16 02:00 07/28/16 09: 37 Zosyn 2.25gm Ivpb (Pre-Docked) IVPB 100 mls/hr Q8H-IV [facility] Administration Protocol Levothyroxine Sodium 50 mcg 07/25/16 07:00 07/28/16 06:23 Synthroid - PO 50 mcg DAILY@0700 [facility] Administration Metoprolol Tartrate 12.5 mg 07/24/16 22:00 07/28/16 09:37 Lopressor - PO Not Given BID [facility] Pantoprazole Sodium 40 mg 07/25/16 10:00 07/28/16 09:35 Protonix - PO 40 mg DAILY [facility] Administration Physical Exam Constitutional: Yes: No Distress Cardiovascular: Yes: Pulse Irregular Respiratory: Yes: Diminished Gastrointestinal: Yes: Normal Bowel Sounds, Soft. No: Distention, Tenderness Extremities: Yes: Other (multiple leg wounds) Edema: Yes Problem List - Problems (1) Congestive heart failure (CHF) Code(s): I50.9 - HEART FAILURE, UNSPECIFIED Qualifiers: Congestive heart failure type: systolic Congestive heart failure chronicity: chronic Qualified Code(s): I50.22 - Chronic systolic (congestive ) heart failure (2) DMII (diabetes mellitus, type 2) Code(s): E11.9 - TYPE 2 DIABETES MELLITUS WITHOUT COMPLICATIONS Qualifiers: Diabetes mellitus complication detail: with other kidney complication (3) HTN (hypertension) Code(s): I10 - ESSENTIAL (PRIMARY) HYPERTENSION Qualifiers: Hypertension type: essential hypertension Qualified Code(s): I10 - Essential (primary) hypertension (4) Pressure ulcer of lower extremity, stage 1 Code(s): L89.891 - PRESSURE ULCER OF OTHER SITE, STAGE 1 (5) Sepsis Code(s): A41.9 - SEPSIS, UNSPECIFIED ORGANISM Qualifiers: Sepsis type: sepsis due to unspecified organism Qualified Code(s): A41.9 - Sepsis, unspecified organism (6) Rapid atrial fibrillation Code(s): I48.91 - UNSPECIFIED ATRIAL FIBRILLATION (7) Functional quadriplegia Code(s): R53.2 - FUNCTIONAL QUADRIPLEGIA (8) End stage renal disease on dialysis Code(s): N18.6 - END STAGE RENAL DISEASE Z99.2 - DEPENDENCE ON RENAL DIALYSIS Assessment and Plan Clinically better. Continue abx. Follow up labs ordered. Dr. Muniz note noted. reports she is the patient's healthcare proxy. Niece also calling saying that she should be the healthcare proxy. Will request palliative care and ethics committee consult. Documentation prepared by Patricia Reed, acting as a medical office coordinator for Oziel Casey MD.
[2016-07-28] MEDS: PANTOPRAZOLE 40 MG TABLET (FP) PO SCH (09:35)
[2016-07-28] MEDS: METOPROLOL TARTRATE 25 MG TABLET (FP) PO SCH ×2 (09:37→22:18)
[2016-07-28] MEDS: COLLAGENASE CLOSTRIDIUM HIST. 30 GRAMS TUBE TP SCH (09:37)
[2016-07-28] MEDS: BRIMONIDINE TARTRATE 0.1% OPHTHALMIC 5 ML BOTTLE OU SCH ×2 (09:37→22:17)
--- NOTE | 2016-07-28 10:38 | PN ---
Progress Note, Physician History of Present Illness: Awake, responsive No complaints offered Afebrile Cultures negative - Current Medication List Current Medications: Active Medications Acetaminophen (Tylenol -) 325 mg PO Q6H PRN PRN Reason: FEVER Last Admin: 07/28/16 06:22 Dose: 325 mg Albuterol/Ipratropium (Duoneb -) 1 amp NEB QID PRN PRN Reason: SHORTNESS OF BREATH Amiodarone HCl (Cordarone -) 400 mg PO TID [facility] Last Admin: 07/28/16 06:23 Dose: 400 mg Brimonidine Tartrate (Alphagan P 0.1% -) 1 drop OU BID [facility] Last Admin: 07/28/16 09:37 Dose: 1 drop Collagenase (Santyl -) 1 applic TP DAILY [facility] Last Admin: 07/28/16 09:37 Dose: 1 applic Piperacillin Sod/Tazobactam Sod (Zosyn 2.25gm Ivpb (Pre-Docked)) 50 mls @ 100 mls/hr IVPB Q8H-IV [facility] PRN Reason: Protocol Last Admin: 07/28/16 09:37 Dose: 100 mls/hr Levothyroxine Sodium (Synthroid -) 50 mcg PO DAILY@0700 [facility] Last Admin: 07/28/16 06:23 Dose: 50 mcg Metoprolol Tartrate (Lopressor -) 12.5 mg PO BID [facility] Last Admin: 07/28/16 09:37 Dose: Not Given Pantoprazole Sodium (Protonix -) 40 mg PO DAILY [facility] Last Admin: 07/28/16 09:35 Dose: 40 mg - Objective Vital Signs: Vital Signs Temperature 96.6 F L 07/28/16 02:51 Pulse Rate 99 H 07/28/16 02:51 Respiratory Rate 20 07/28/16 02:51 Blood Pressure 82/43 07/28/16 02:51 O2 Sat by Pulse Oximetry (%) 94 L 07/27/16 21:00 Constitutional: Yes: No Distress Eyes: Yes: Conjunctiva Clear Cardiovascular: Yes: Regular Rate and Rhythm, S1, S2 Respiratory: Yes: Diminished Gastrointestinal: Yes: Normal Bowel Sounds, Soft. No: Tenderness Edema: Yes Labs: CBC, BMP 07/26/16 07:00 07/26/16 07:00 INR, PTT INR 1.79 (0.82-1.09) H 07/24/16 12:30 Assessment/Plan Hypotension, possible sepsis Rapid Afib ESRD Leukocytosis-improved Thrombocytopenia Lactic acidosis Cultures negative Clinically improved Will observe off antibiotics
--- NOTE | 2016-07-28 14:41 | PN ---
Progress Note, Physician Chief Complaint: afib hypotension Tele: afib with VR 80-100 History of Present Illness: This is a 76 year old male with known CAD and a prior CO (mild diffuse proximal RCA disease, no intervension), paroxsymmal atrial fib/flutter (was on Eliquis), HFrEF w9ith severely reduced LV systolic function, HTN, DM, CKD, and HLD. He was previously hospitalized at [facility] from 05/23/16 - 06/02/16 for cellulitis/shoulder abcess and lower extremity cellulitis with bacteremia. He was readmitted 07/02/16 with septic shock and acute on chronic renal failure and was getting hemodialysis. He required pressors and inotropic support at that time. An echocardiogram performed on 06/10/16 showed a severely decrease ejection fraction, left atrial enlargement, right atrial enlargement, mild AI, moderate MR, moderate TR, and mild pulmonary HTN. On 07/15/16 he had an episode of hypoxia and rapid atrial fibrillation which was related to anesthesia induction for the debridement surgery. He was D/C'd and readmitted after he was found to have hypoxia and hypotension at the [facility]. - Current Medication List Current Medications: Active Medications Acetaminophen (Tylenol -) 325 mg PO Q6H PRN PRN Reason: FEVER Last Admin: 07/28/16 06:22 Dose: 325 mg Albuterol/Ipratropium (Duoneb -) 1 amp NEB QID PRN PRN Reason: SHORTNESS OF BREATH Last Admin: 07/28/16 10:46 Dose: 1 amp Amiodarone HCl (Cordarone -) 400 mg PO TID [facility] Last Admin: 07/28/16 13:45 Dose: 400 mg Brimonidine Tartrate (Alphagan P 0.1% -) 1 drop OU BID [facility] Last Admin: 07/28/16 09:37 Dose: 1 drop Collagenase (Santyl -) 1 applic TP DAILY [facility] Last Admin: 07/28/16 09:37 Dose: 1 applic Levothyroxine Sodium (Synthroid -) 50 mcg PO DAILY@0700 [facility] Last Admin: 07/28/16 06:23 Dose: 50 mcg Metoprolol Tartrate (Lopressor -) 12.5 mg PO BID [facility] Last Admin: 07/28/16 09:37 Dose: Not Given Pantoprazole Sodium (Protonix -) 40 mg PO DAILY [facility] Last Admin: 07/28/16 09:35 Dose: 40 mg - Objective Vital Signs: Vital Signs Temperature 96.8 F L 07/28/16 13:29 Pulse Rate 112 H 07/28/16 13:29 Respiratory Rate 22 07/28/16 13:29 Blood Pressure 95/64 07/28/16 13:29 O2 Sat by Pulse Oximetry (%) 94 L 07/27/16 21:00 Neck: Yes: WNL Cardiovascular: Yes: S1, S2. No: Regular Rate and Rhythm, JVD Respiratory: Yes: Regular Gastrointestinal: Yes: WNL Edema: No Labs: CBC, BMP 07/26/16 07:00 07/26/16 07:00 INR, PTT INR 1.79 (0.82-1.09) H 07/24/16 12:30 - ....Imaging Chest X-ray: Report Reviewed EKG: Image Reviewed Problem List - Problems (1) Rapid atrial fibrillation Code(s): I48.91 - UNSPECIFIED ATRIAL FIBRILLATION Assessment/Plan This is a 76 year old male with known CAD, afib, chronic systolic chf, htn, dm, ckd, hld, and ckd with multiple recent admissions for infection/sepsis now admitted with hypotension and tachycardia. -Patient on amiodarone at this time. No bblocker or ccb given hypotension. Afib with ventricular rates 80-100 are not causing his hypotension. WBC trending up. Would f/u with primary team regarding Abx AC is currently on hold.
--- NOTE | 2016-07-28 16:22 | PN ---
Progress Note, Physician History of Present Illness: Pt seen and examined at bedside. He is awake and appears comfortable. - Current Medication List Current Medications: Active Medications Acetaminophen (Tylenol -) 325 mg PO Q6H PRN PRN Reason: FEVER Last Admin: 07/28/16 06:22 Dose: 325 mg Albuterol/Ipratropium (Duoneb -) 1 amp NEB QID PRN PRN Reason: SHORTNESS OF BREATH Last Admin: 07/28/16 10:46 Dose: 1 amp Amiodarone HCl (Cordarone -) 400 mg PO TID [facility] Last Admin: 07/28/16 13:45 Dose: 400 mg Brimonidine Tartrate (Alphagan P 0.1% -) 1 drop OU BID [facility] Last Admin: 07/28/16 09:37 Dose: 1 drop Collagenase (Santyl -) 1 applic TP DAILY [facility] Last Admin: 07/28/16 09:37 Dose: 1 applic Levothyroxine Sodium (Synthroid -) 50 mcg PO DAILY@0700 [facility] Last Admin: 07/28/16 06:23 Dose: 50 mcg Metoprolol Tartrate (Lopressor -) 12.5 mg PO BID [facility] Last Admin: 07/28/16 09:37 Dose: Not Given Pantoprazole Sodium (Protonix -) 40 mg PO DAILY [facility] Last Admin: 07/28/16 09:35 Dose: 40 mg - Objective Vital Signs: Vital Signs Temperature 96.8 F L 07/28/16 13:29 Pulse Rate 112 H 07/28/16 13:29 Respiratory Rate 22 07/28/16 13:29 Blood Pressure 95/64 07/28/16 13:29 O2 Sat by Pulse Oximetry (%) 94 L 07/27/16 21:00 Constitutional: Yes: Calm Eyes: Yes: Conjunctiva Clear Cardiovascular: Yes: S1, S2 Respiratory: Yes: Diminished, On Nasal O2 Gastrointestinal: Yes: Soft Genitourinary: Yes: Incontinence Musculoskeletal: Yes: Muscle Weakness Edema: No Wound/Incision: Yes: Dressing Dry and Intact Neurological: Yes: Oriented Labs: CBC, BMP 07/26/16 07:00 07/26/16 07:00 INR, PTT INR 1.79 (0.82-1.09) H 07/24/16 12:30 Problem List - Problems (1) End stage renal disease on dialysis Code(s): N18.6 - END STAGE RENAL DISEASE Z99.2 - DEPENDENCE ON RENAL DIALYSIS (2) Hypotension Code(s): I95.9 - HYPOTENSION, UNSPECIFIED Qualifiers: Hypotension type: unspecified hypotension type Qualified Code(s): I95.9 - Hypotension, unspecified (3) Anemia Code(s): D64.9 - ANEMIA, UNSPECIFIED Qualifiers: Other causes of anemia: chronic disease, kidney Assessment/Plan Current Medications Generic Name Dose Route Start Last Admin Trade Name Freq PRN Reason Stop Dose Admin Acetaminophen 325 mg 07/24/16 13:31 07/28/16 06:22 Tylenol - PO 325 mg Q6H PRN Administration FEVER Albuterol/Ipratropium 1 amp 07/24/16 13:31 07/28/16 10:46 Duoneb - NEB 1 amp QID PRN Administration SHORTNESS OF BREATH Amiodarone HCl 400 mg 07/26/16 14:00 07/28/16 13:45 Cordarone - PO 400 mg TID [facility] Administration Brimonidine Tartrate 1 drop 07/25/16 22:00 07/28/16 09:37 Alphagan P 0.1% - OU 1 drop BID [facility] Administration Collagenase 1 applic 07/25/16 15:30 07/28/16 09:37 Santyl - TP 1 applic DAILY [facility] Administration Levothyroxine Sodium 50 mcg 07/25/16 07:00 07/28/16 06:23 Synthroid - PO 50 mcg DAILY@0700 [facility] Administration Metoprolol Tartrate 12.5 mg 07/24/16 22:00 07/28/16 09:37 Lopressor - PO Not Given BID [facility] Pantoprazole Sodium 40 mg 07/25/16 10:00 07/28/16 09:35 Protonix - PO 40 mg DAILY [facility] Administration Impression 1. ESRD on HD 2. hypotension 3. cellulitis/abscess of back 4. CHF 5. hypothyroidism 6. hyperlipidemia 7. COPD 8. a-fib Plan - will arrange for HD in am - will order pre hd labs - check phos level - cont wound care to legs - tp/rehab - will need fistula once more stable - oxygen and bipap as needed - one to one feeds
[2016-07-29] MEDS: AMIODARONE HCL 200 MG TABLET (FP) PO SCH ×3 (06:08→22:24)
[2016-07-29] MEDS: LEVOTHYROXINE NA 50 MCG TABLET (FP) PO SCH (06:08)
[2016-07-29 07:06] LABS: BASOPHIL 0.2 % (0-2.0); EOSINOPHIL 1.1 % (0-4.5); MCH 28.5 pg (25.7-33.7); MCHC 30.2 g/dl (32.0-35.9); MEAN CELL VOLUME 94.4 fl (80-96); MEAN PLT VOLUME 10.5 fl (7.5-11.1); NEUTROPHILS 81.7 % (42.8-82.8); PLATELET COUNT 80 K/MM3 (134-434); RDW 21.9 % (11.9-15.9); WHITE BLOOD COUNT 10.6 K/mm3 (4.0-10.0)
[2016-07-29 07:34] LABS: CALCIUM 8.2 mg/dL (8.5-10.1)
[2016-07-29 07:38] LABS: BILIRUBIN,TOTAL 1.4 mg/dL (0.2-1.0); CREATININE 4.6 mg/dL (0.7-1.3); TOT PROT 5.8 g/dl (6.4-8.2)
[2016-07-29 07:47] LABS: COCKROFT - GAULT 17.56
[2016-07-29] MEDS ORDERED: HEPARIN NA (PORCINE) 5,000 UNITS/ML 1ML VIAL IVPUSH ONE ×2 (09:15→11:06)
[2016-07-29] MEDS ORDERED: EPOETIN ALFA 2,000 UNITS/1 ML VIAL IVPUSH ONE ×2 (09:15→11:06)
[2016-07-29] MEDS ORDERED: SODIUM CHLORIDE 1,000 ML IV STA ×2 (09:32→11:06)
--- NOTE | 2016-07-29 09:47 | RAPID ---
Physical Examination Constitutional: Yes: Moderate Distress Respiratory: Yes: Regular, Accessory Muscle Use Gastrointestinal: Yes: Soft Extremities: Yes: Cool Neurological: Yes: Lethargy, Weakness Labs: CBC, BMP 07/29/16 05:35 07/29/16 05:35 Rapid Response - Rapid Response Assessment: Arrived at bedside. Patient was in trendelenburg position upon arrival. Patient BP 57/30 and O2 sat 97% on RA with accessory muscle use. Patient was alert and responding to questioning. IVF bolus was already initiated upon arrival . Plan: * Most likely septic shock * stat: CBC,CMP,UC, BC, CXR, trops, Lactic acid. * IVF 1L bolus * Stat one time dose of Vanco/Zosyn after BC drawn. * Placed on 50% ventimask * Transfer to ICU for continued monitoring.
[2016-07-29 10:10] LABS: ARTERIAL BLOOD GAS BASE EXCESS -3.7 meq/l (-2-2); ARTERIAL BLOOD GAS HCO3 23.6 meq/L (22-26)
[2016-07-29 10:13] LABS: ALLENS TEST POSITIVE; ART PUNCT SITE RIGHT RADIAL; ARTERIAL BLOOD GAS pH 7.23 (7.35-7.45); LPM/O2% 15; PT. ON O2? YES; TYPE OF O2 NRB
[2016-07-29] MEDS ORDERED: VANCOMYCIN 1 GRAM (PRE-DOCKED) 250 ML IVPB ONE (10:30)
[2016-07-29 10:41] LABS: BASOPHIL 0.5 % (0-2.0); EOSINOPHIL 1.2 % (0-4.5); MCH 28.2 pg (25.7-33.7); MCHC 29.9 g/dl (32.0-35.9); MEAN CELL VOLUME 94.4 fl (80-96); MEAN PLT VOLUME 10.9 fl (7.5-11.1); NEUTROPHILS 79.9 % (42.8-82.8); PLATELET COUNT 87 K/MM3 (134-434); RDW 21.7 % (11.9-15.9); WHITE BLOOD COUNT 13.5 K/mm3 (4.0-10.0)
[2016-07-29] MEDS ORDERED: METRONIDAZOLE 500 MG PREMIXED 100 ML IVPB SCH (10:45)
[2016-07-29] MEDS ORDERED: CEFEPIME HCL 1 GM VIAL (RESTRICTED TO ID) IVPB SCH (10:45)
[2016-07-29] MEDS: DOPAMINE 400 MG/D5W - 250 ML IVPB SCH (10:45)
--- NOTE | 2016-07-29 10:45 | PN ---
Progress Note, Physician History of Present Illness: Events noted Developed hypotension, labored braething on floor Transferred to ICU Hypotensive, tachypneic on bipap Hypothermic - Current Medication List Current Medications: Active Medications Acetaminophen (Tylenol -) 325 mg PO Q6H PRN PRN Reason: FEVER Last Admin: 07/28/16 06:22 Dose: 325 mg Albumin Human (Albumin Human 25%) 12.5 gm IVPB Q30M COUNTS INCLUDE 234 BEDS AT THE [facility] Stop: 07/29/16 10:46 Albuterol/Ipratropium (Duoneb -) 1 amp NEB QID PRN PRN Reason: SHORTNESS OF BREATH Last Admin: 07/28/16 10:46 Dose: 1 amp Amiodarone HCl (Cordarone -) 400 mg PO TID [facility] 234 BEDS AT THE [facility] Last Admin: 07/29/16 06:08 Dose: 400 mg Brimonidine Tartrate (Alphagan P 0.1% -) 1 drop OU BID [facility] 234 BEDS AT THE [facility] Last Admin: 07/28/16 22:17 Dose: 1 drop Cefepime HCl (Maxipime (Restricted To Id) -) 1 gm IVPB BID [facility]CLUDE 234 BEDS AT THE [facility] PRN Reason: Protocol Collagenase (Santyl -) 1 applic TP DAILY [facility]CLUDE 234 BEDS AT THE [facility] Last Admin: 07/28/16 09:37 Dose: 1 applic Vancomycin HCl (Vancomycin (Pre-Docked)) 250 mls @ 166.667 mls/hr IVPB ONCE ONE PRN Reason: Protocol Stop: 07/29/16 11:59 Piperacillin Sod/Tazobactam Sod (Zosyn 3.375gm Ivpb (Pre-Docked)) 50 mls @ 100 mls/hr IVPB ONCE ONE PRN Reason: Protocol Stop: 07/29/16 11:29 Metronidazole (Flagyl 500mg Premixed Ivpb -) 100 mls @ 100 mls/hr IVPB Q8H-IV [facility] Levothyroxine Sodium (Synthroid -) 50 mcg PO DAILY@0700 [facility]CLUDE 234 BEDS AT THE [facility] Last Admin: 07/29/16 06:08 Dose: 50 mcg Metoprolol Tartrate (Lopressor -) 12.5 mg PO BID [facility]CLUDE 234 BEDS AT THE [facility] Last Admin: 07/28/16 22:18 Dose: Not Given Pantoprazole Sodium (Protonix -) 40 mg PO DAILY [facility]CLUDE 234 BEDS AT THE [facility] Last Admin: 07/28/16 09:35 Dose: 40 mg - Objective Vital Signs: Vital Signs Temperature 97.6 F 07/29/16 06:00 Pulse Rate 89 05/16/17 06:00 Respiratory Rate 20 07/29/16 06:00 Blood Pressure 90/48 07/29/16 06:00 O2 Sat by Pulse Oximetry (%) 99 07/28/16 21:00 Constitutional: Yes: No Distress Cardiovascular: Yes: Regular Rate and Rhythm, S1, S2 Respiratory: Yes: Diminished Gastrointestinal: Yes: Normal Bowel Sounds, Soft. No: Tenderness Edema: Yes Integumentary: Yes: Other (+ decubitus ulcers) Labs: INR, PTT INR 1.79 (0.82-1.09) H 07/24/16 12:30 Assessment/Plan Hypotension, hypothermia possible sepsis ESRD Leukocytosis Thrombocytopenia Lactic acidosis Reculture empiric vanco/ cefepime / flagyl Hemodynamic support Prognosis guarded
[2016-07-29] MEDS ORDERED: PIPERACILLIN/TAZOB 3.375 GM 50 ML IVPB ONE (11:00)
[2016-07-29 11:03] LABS: CALCIUM 8.5 mg/dL (8.5-10.1); COCKROFT - GAULT 17.95; CREATININE 4.5 mg/dL (0.7-1.3); PHOSPHOROUS 5.4 mg/dL (2.5-4.9)
[2016-07-29 11:06] LABS: TOT PROT 5.8 g/dl (6.4-8.2); TROPONIN I 0.07 ng/ml (0.00-0.05)
[2016-07-29] MEDS ORDERED: ACETAMINOPHEN 325 MG TABLET (FP) PO PRN (11:06)
[2016-07-29] MEDS ORDERED: ALBUTEROL SO4 2.5/IPRATROPIUM 0.5 INH SOL 3 ML VIAL.NEB. NEB PRN (11:06)
--- NOTE | 2016-07-29 11:07 | PN ---
Progress Note, Physician Chief Complaint: Events noted rapid response was called for this pt who was hypotensive , hypothermic Pt sent to ICU-- placed on Dopamine infusion Was given 500 cc fluid bolus. placed on 100% NRB Pt is awake He was received in ICU awake and alert no complaints Pt is on hector hugger No distress On BIPAP -- removed and changed to 4 L NC - Current Medication List Current Medications: Active Medications Vancomycin HCl (Vancomycin (Pre-Docked)) 250 mls @ 166.667 mls/hr IVPB ONCE ONE PRN Reason: Protocol Stop: 07/29/16 11:59 Metronidazole (Flagyl 500mg Premixed Ivpb -) 100 mls @ 100 mls/hr IVPB Q8H-IV [facility] Dopamine HCl/Dextrose (Dopamine 400 Mg/D5w -) 250 mls @ 17.04 mls/hr IVPB TITR [facility]I; 5 MCG/KG/MIN PRN Reason: Protocol Cefepime HCl 1 gm/ Dextrose 100 mls @ 200 mls/hr IVPB BID [facility] - Objective Vital Signs: Vital Signs Temperature 97.6 F 07/29/16 06:00 Pulse Rate 88 07/29/16 10:48 Respiratory Rate 20 07/29/16 10:48 Blood Pressure 71/47 07/29/16 10:48 O2 Sat by Pulse Oximetry (%) 96 07/29/16 10:30 Constitutional: Yes: No Distress, Calm Cardiovascular: Yes: Tachycardia, Pulse Irregular Respiratory: Yes: Diminished. No: Rales, Rhonchi Gastrointestinal: Yes: Normal Bowel Sounds, Soft. No: Distention, Tenderness Extremities: Yes: Other (b/l leg dressing) Edema: Yes Edema: LLE: Trace, RLE: Trace Neurological: Yes: Alert, Oriented Labs: CBC, BMP 07/29/16 10:15 INR, PTT INR 1.79 (0.82-1.09) H 07/24/16 12:30 Problem List - Problems (1) Congestive heart failure (CHF) Code(s): I50.9 - HEART FAILURE, UNSPECIFIED Qualifiers: Qualified Code(s): I50.22 - Chronic systolic (congestive) heart failure (2) DMII (diabetes mellitus, type 2) Code(s): E11.9 - TYPE 2 DIABETES MELLITUS WITHOUT COMPLICATIONS (3) HTN (hypertension) Code(s): I10 - ESSENTIAL (PRIMARY) HYPERTENSION Qualifiers: Qualified Code(s): I10 - Essential (primary) hypertension (4) Pressure ulcer of lower extremity, stage 1 Code(s): L89.891 - PRESSURE ULCER OF OTHER SITE, STAGE 1 (5) Sepsis Code(s): A41.9 - SEPSIS, UNSPECIFIED ORGANISM Qualifiers: Qualified Code(s): A41.9 - Sepsis, unspecified organism (6) Rapid atrial fibrillation Code(s): I48.91 - UNSPECIFIED ATRIAL FIBRILLATION (7) Functional quadriplegia Code(s): R53.2 - FUNCTIONAL QUADRIPLEGIA (8) End stage renal disease on dialysis Code(s): N18.6 - END STAGE RENAL DISEASE Z99.2 - DEPENDENCE ON RENAL DIALYSIS Assessment/Plan PLAN SEPSIS antibiotics restarted -- vanco and cefepime blood cultures redrawn WBC elevated -- likely due to wounds HYPOTENSION baseline blood pressure is on the lower side, monitor blood pressure. better on Dopamine infusion asymptomatic, awake end-stage renal disease on dialysis HD per Renal CXR shows rt pleural effusion elevated troponins, rapid A. fib Not a candidate for anticoagulation rate control with Amiodarone CHF systolic heart failure HD per renal clinically not in respiratory distress usually it is difficult to get O2 sat reading for this pt-- ABG noted Not on AceI or ARB due to hypotension advanced directives patient is DNR BIPAP as needed ICU monitoring Palliative eval
--- NOTE | 2016-07-29 11:29 | CONSULT ---
Consultation: REQUESTING PROVIDER: Flavio CONSULT REQUEST: We have been asked to medically evaluate this patient for septic shock. HISTORY OF PRESENT ILLNESS: Patient is a 76 year old male with PMH of A-Fib, CAD, Systolic CHF, HTN/HLD, COPD, PUD, ESRD on HD, multiple lower back ulcers, hypothyroidism & DM who is sent to ICU s/p rapid response for hypotension this morning. Patient was admitted here on 07/24 after a long hospital stay for septic shock ( secondary to cellulitis/abscess formation). He was started on dialysis, received wound care & discharged on 07/23. He returned the following day to ED with low O2 saturation & hypotension from [facility]. This morning, patient BP found to be 57/30 with 97% O2 Sat. Patient given 500ml IVF bolus. Cultures drawn and patient restarted on Vanco/Zosyn. 50% Ventimask placed and patient was sent to ICU. ECHO (06/10/16): severely decrease ejection fraction, left atrial enlargement, right atrial enlargement, mild AI, moderate MR, moderate TR, and mild pulmonary HTN REVIEW OF SYSTEMS: CONSTITUTIONAL: Absent: fever, chills, diaphoresis, generalized weakness, malaise, loss of appetite, weight change HEENT: Absent: rhinorrhea, nasal congestion, throat pain, throat swelling, difficulty swallowing, mouth swelling, ear pain, eye pain, visual changes CARDIOVASCULAR: Absent: chest pain, syncope, palpitations, irregular heart rate, lightheadedness , peripheral edema RESPIRATORY: Absent: cough, shortness of breath, dyspnea with exertion, orthopnea, wheezing, stridor, hemoptysis GASTROINTESTINAL: Absent: abdominal pain, abdominal distension, nausea, vomiting, diarrhea, constipation, melena, hematochezia GENITOURINARY: Absent: dysuria, frequency, urgency, hesitancy, hematuria, flank pain, genital pain MUSCULOSKELETAL: Absent: myalgia, arthralgia, joint swelling, back pain, neck pain SKIN: Absent: rash, itching, pallor HEMATOLOGIC/IMMUNOLOGIC: Absent: easy bleeding, easy bruising, lymphadenopathy, frequent infections ENDOCRINE: Absent: unexplained weight gain, unexplained weight loss, heat intolerance, cold intolerance NEUROLOGIC: Absent: headache, focal weakness or paresthesias, dizziness, unsteady gait, seizure, mental status changes, bladder or bowel incontinence PSYCHIATRIC: Absent: anxiety, depression, suicidal or homicidal ideation, hallucinations. PHYSICAL EXAMINATION Vital Signs - 24 hr 07/28/16 07/28/16 07/28/16 13:29 18:00 21:00 Temperature 96.8 F L Pulse Rate 112 H Respiratory 22 22 Rate Blood Pressure 95/64 80/47 O2 Sat by Pulse 99 Oximetry (%) 07/29/16 07/29/16 07/29/16 00:47 02:00 06:00 Temperature 97.6 F 97.6 F Pulse Rate 92 H 89 89 Respiratory 22 20 20 Rate Blood Pressure 72/54 69/47 90/48 O2 Sat by Pulse Oximetry (%) 07/29/16 07/29/16 10:30 10:48 Temperature Pulse Rate 88 Respiratory 20 Rate Blood Pressure 71/47 O2 Sat by Pulse 96 Oximetry (%) GENERAL: Awake, alert, and fully oriented, in no acute distress. Resting comfortably in bed on NC 4L. HEENT: Atraumatic, EOMI, PERRLA, No lymphadenopathy, dry membranes LUNGS: mild bibasilar crackles noted, no wheezing or accessory muscle use HEART: irregular, tachycardic, S1 and S2 without murmur, rub or gallop. ABDOMEN: Soft, nontender, not distended, normoactive bowel sounds EXTREMITIES: 1+ pulses, warm, well-perfused. No calf tenderness. +1 bilateral pitting edema in lower extremity NEUROLOGICAL: Cranial nerves II-XII intact. Normal speech. Gait not observed. PSYCHIATRIC: Cooperative. Good eye contact. Appropriate mood and affect. Able to answer questions and make requests. SKIN: multiple stage III decubitus to buttocks and scrotum Laboratory Results - last 24 hr 07/29/16 07/29/16 07/29/16 05:35 05:35 05:35 WBC 10.6 H RBC 3.36 L Hgb 9.6 L Hct 31.7 L MCV 94.4 MCHC 30.2 L RDW 21.9 H Plt Count 80 L MPV 10.5 Neutrophils % 81.7 Lymphocytes % 7.2 L Monocytes % 9.8 Eosinophils % 1.1 Basophils % 0.2 Puncture Site ABG pH ABG pCO2 at Pt Temp ABG pO2 at Pt Temp ABG HCO3 ABG O2 Sat (Measured) ABG O2 Content ABG Base Excess Frankie Test O2 Delivery Device Oxygen Flow Rate PEEP Sodium 145 Potassium 4.7 Chloride 103 Carbon Dioxide 27 Anion Gap 15 BUN 50 H Creatinine 4.6 H Creat Clearance w eGFR 12.49 POC Glucometer Random Glucose 106 Lactic Acid Calcium 8.2 L Phosphorus Cancelled Total Bilirubin 1.4 H AST 9 L D ALT 15 D Alkaline Phosphatase 76 D Creatine Kinase Troponin I Total Protein 5.8 L Albumin 2.0 L 07/29/16 07/29/16 07/29/16 09:25 10:00 10:15 WBC 13.5 H RBC 3.21 L Hgb 9.1 L Hct 30.3 L MCV 94.4 MCHC 29.9 L RDW 21.7 H Plt Count 87 L MPV 10.9 Neutrophils % 79.9 Lymphocytes % 8.4 Monocytes % 10.0 Eosinophils % 1.2 Basophils % 0.5 Puncture Site Right radial ABG pH 7.23 L* ABG pCO2 at Pt Temp 58.7 H ABG pO2 at Pt Temp 205.0 H* D ABG HCO3 23.6 ABG O2 Sat (Measured) 100.0 H* ABG O2 Content 12.8 L ABG Base Excess -3.7 L Frankie Test Positive O2 Delivery Device Nrb Oxygen Flow Rate 15 PEEP 0.0 Sodium Potassium Chloride Carbon Dioxide Anion Gap BUN Creatinine Creat Clearance w eGFR POC Glucometer 97 Random Glucose Lactic Acid Calcium Phosphorus Total Bilirubin AST ALT Alkaline Phosphatase Creatine Kinase Troponin I Total Protein Albumin 07/29/16 07/29/16 10:15 10:30 WBC RBC Hgb Hct MCV MCHC RDW Plt Count MPV Neutrophils % Lymphocytes % Monocytes % Eosinophils % Basophils % Puncture Site ABG pH ABG pCO2 at Pt Temp ABG pO2 at Pt Temp ABG HCO3 ABG O2 Sat (Measured) ABG O2 Content ABG Base Excess Frankie Test O2 Delivery Device Oxygen Flow Rate PEEP Sodium 143 Potassium 4.7 Chloride 105 Carbon Dioxide 24 Anion Gap 14 BUN 51 H Creatinine 4.5 H Creat Clearance w eGFR 12.81 POC Glucometer Random Glucose 94 Lactic Acid 2.861 H* Calcium 8.5 Phosphorus 5.4 H D Total Bilirubin 1.0 D AST 9 L ALT 17 Alkaline Phosphatase 78 Creatine Kinase 18 L Troponin I 0.07 H D Total Protein 5.8 L Albumin 2.0 L Active Medications Generic Name Dose Route Start Last Admin Trade Name Freq PRN Reason Stop Dose Admin Acetaminophen 325 mg 07/29/16 11:06 Tylenol - PO Q6H PRN FEVER Albuterol/Ipratropium 1 amp 07/29/16 11:06 Duoneb - NEB QID PRN SHORTNESS OF BREATH Amiodarone HCl 400 mg 07/29/16 14:00 Cordarone - PO TID [facility] Brimonidine Tartrate 1 drop 07/29/16 22:00 Alphagan P 0.1% - OU BID [facility] Collagenase 1 applic 07/30/16 10:00 Santyl - TP DAILY [facility] Epoetin Wilson 7,000 units 07/29/16 11:06 Epogen - IVPUSH 07/29/16 11:07 ONCE ONE Heparin Sodium (Porcine) 1,000 unit 07/29/16 11:06 Heparin - IVPUSH 07/29/16 11:07 ONCE ONE Vancomycin HCl 250 mls @ 166.667 mls/hr 07/29/16 10:30 Vancomycin (Pre-Docked) IVPB 07/29/16 11:59 ONCE ONE Protocol Dopamine HCl/Dextrose 250 mls @ 17.04 mls/hr 07/29/16 10:45 Dopamine 400 Mg/D5w - IVPB TITR [facility] Protocol 5 MCG/KG/MIN Cefepime HCl 1 gm/ Dextrose 100 mls @ 200 mls/hr 07/29/16 22:00 IVPB BID [facility] Sodium Chloride 1,000 mls @ 1,000 mls/hr 07/29/16 11:06 Normal Saline - IV 07/29/16 12:05 ASDIR STA Levothyroxine Sodium 50 mcg 07/30/16 07:00 Synthroid - PO DAILY@0700 [facility] Metoprolol Tartrate 12.5 mg 07/29/16 22:00 Lopressor - PO BID [facility] Pantoprazole Sodium 40 mg 07/30/16 10:00 Protonix - PO DAILY [facility] ASSESSMENT/PLAN: 76 year old male with PMH of A-Fib, CAD, Systolic CHF, HTN/HLD, COPD, PUD, ESRD on HD, multiple lower back ulcers, hypothyroidism & DM who is sent to ICU s/p rapid response for hypotension this morning. #Septic Shock, likely secondary to multiple decubitus ulcers -IVF bolus administered (cautious with IVF given severely reduced EF) -On low dose Dopamine for BP support -Collagenase administration to wounds -continue Cefepime, Vancomycin -cultures retaken during episode this AM & pending -lactic acid elevated, given IVF bolus; will trend -hector-hugger for mild hypothermia -wound care consult appreciated -ID Consult appreciated #ESRD on HD -Scheduled for HD later today -avoid nephrotoxic meds -Nephrology consult appreciated #Atrial Fibrillation/CAD Hx/CHF Hx -Not a candidate for AC -on Amiodarone 400mg TID -Lopressor 12.5mg BID, being held at present due to HYPOtension -cardiology consult appreciated #COPD -Duonebs QIDR -Albuterol PRN -Saturating well on NC @4L presently -BiPap at night and as needed #Hypothyroidism -continue home meds: Synthroid 50mcg Prophylaxis -SCD's -PPI -IVF administration, as above -monitor electrolytes -Dysphasia Pureed diet Dispo: Palliative Care consulted. Patient is DNR. Niece is HCP and niece/patient agree that he does not want to be visited by his estranged . Visit type - Emergency Visit Emergency Visit: Yes ED Registration Date: 07/24/16 Care time: The patient presented to the Emergency Department on the above date and was hospitalized for further evaluation of their emergent condition. - New Patient This patient is new to me today: Yes Date on this admission: 07/29/16 - Critical Care Critical Care patient: Yes Total Critical Care Time (in minutes): 45 Critical Care Statement: The care of this patient involved high complexity decision making to prevent further life threatening deterioration of the patient 's condition and/or to evalute & treat vital organ system(s) failure or risk of failure.
[2016-07-29] MEDS: ALBUMIN HUMAN 25% 12.5 GM/50 ML VIAL IVPB SCH ×4 (12:30→15:00)
--- NOTE | 2016-07-29 12:43 | PN ---
Teaching Attending Note Name of Resident: Irvin Harden ATTENDING PHYSICIAN STATEMENT I saw and evaluated the patient. I reviewed the resident's note and discussed the case with the resident. I agree with the resident's findings and plan as documented. SUBJECTIVE: Pt seen and examined in the ICU. Transferred down for hypotension and respiratory distress. Placed on BIPAP and dopamine gtt. OBJECTIVE: Last Vital Signs Temp Pulse Resp BP Pulse Ox 95.4 F L 116 H 28 H 91/79 96 07/29/16 11:15 07/29/16 11:30 07/29/16 11:30 07/29/16 11:30 07/29/16 10:30 Intake & Output 07/26/16 07/27/16 07/28/16 07/29/16 23:59 23:59 23:59 23:59 Intake Total 410 240 50 350 Output Total 50 Balance 410 240 50 300 Weight 199 lb 12.8 oz 199 lb 12.8 oz 200 lb 5.76 oz Gen: mildly tachypneic on BIPAP Heart: tachycardic, irregular Lung: scattered rhonchi Abd: soft, nontender Ext: dressed, + edema CBC, BMP 07/29/16 10:15 07/29/16 10:15 Active Medications Acetaminophen (Tylenol -) 325 mg PO Q6H PRN PRN Reason: FEVER Albuterol/Ipratropium (Duoneb -) 1 amp NEB QID PRN PRN Reason: SHORTNESS OF BREATH Amiodarone HCl (Cordarone -) 400 mg PO TID [facility] Brimonidine Tartrate (Alphagan P 0.1% -) 1 drop OU BID [facility] Collagenase (Santyl -) 1 applic TP DAILY [facility] Dopamine HCl/Dextrose (Dopamine 400 Mg/D5w -) 250 mls @ 17.04 mls/hr IVPB TITR [facility]; 5 MCG/KG/MIN PRN Reason: Protocol Last Titration: 07/29/16 11:15 Dose: 5 mcg/kg/min Cefepime HCl 1 gm/ Dextrose 100 mls @ 200 mls/hr IVPB BID [facility] Levothyroxine Sodium (Synthroid -) 50 mcg PO DAILY@0700 [facility] Metoprolol Tartrate (Lopressor -) 12.5 mg PO BID [facility] Pantoprazole Sodium (Protonix -) 40 mg PO DAILY [facility] ASSESSMENT AND PLAN: Acute on Chronic Hypoxic and Hypercapneic Respiratory Failure Sacral Decubitus Ulcer Infection Septic Shock Lactic Acidosis ESRD on HD Severe LV Systolic Dysfunction Atrial Fibrillation CAD - antibiotics per ID - f/u cultures - IVF boluses as needed - dopamine gtt to maintain MAP >50 - BiPAP to assist in work of breathing and acute hypercapnea - O2 to keep SpO2 >90% - trend lactate - HD per renal - aspiration precautions - wound care - DVT prophylaxis - continue discussions regarding goals of care as pt chronically ill with prolonged multiple hospitalizations critical care time spent in reviewing chart, evaluating patient and formulating plan 36 min
--- NOTE | 2016-07-29 13:44 | PN ---
Progress Note, Physician History of Present Illness: Pt seen and examined at bedside. He is awake and alert. He was sent to the ICU for hypotension and started on dopamine. - Current Medication List Current Medications: Active Medications Acetaminophen (Tylenol -) 325 mg PO Q6H PRN PRN Reason: FEVER Albuterol/Ipratropium (Duoneb -) 1 amp NEB QID PRN PRN Reason: SHORTNESS OF BREATH Amiodarone HCl (Cordarone -) 400 mg PO TID [facility] Brimonidine Tartrate (Alphagan P 0.1% -) 1 drop OU BID [facility] Collagenase (Santyl -) 1 applic TP DAILY [facility] Dopamine HCl/Dextrose (Dopamine 400 Mg/D5w -) 250 mls @ 17.04 mls/hr IVPB TITR [facility]; 5 MCG/KG/MIN PRN Reason: Protocol Last Titration: 07/29/16 11:15 Dose: 5 mcg/kg/min Cefepime HCl 1 gm/ Dextrose 100 mls @ 200 mls/hr IVPB BID [facility] Levothyroxine Sodium (Synthroid -) 50 mcg PO DAILY@0700 [facility] Metoprolol Tartrate (Lopressor -) 12.5 mg PO BID [facility] Pantoprazole Sodium (Protonix -) 40 mg PO DAILY [facility] - Objective Vital Signs: Vital Signs Temperature 96.8 F L 07/29/16 12:25 Pulse Rate 125 H 07/29/16 13:30 Respiratory Rate 18 07/29/16 13:30 Blood Pressure 100/69 07/29/16 13:30 O2 Sat by Pulse Oximetry (%) 96 07/29/16 10:30 Constitutional: Yes: Calm Eyes: Yes: Conjunctiva Clear HENT: Yes: Atraumatic Cardiovascular: Yes: Tachycardia, S1, S2 Respiratory: Yes: On Nasal O2 Gastrointestinal: Yes: Soft Genitourinary: Yes: Incontinence Musculoskeletal: Yes: Muscle Weakness Edema: No Wound/Incision: Yes: Dressing Dry and Intact Neurological: Yes: Oriented Labs: CBC, BMP 07/29/16 10:15 07/29/16 10:15 INR, PTT INR 1.79 (0.82-1.09) H 07/24/16 12:30 Problem List - Problems (1) End stage renal disease on dialysis Code(s): N18.6 - END STAGE RENAL DISEASE Z99.2 - DEPENDENCE ON RENAL DIALYSIS (2) Hypotension Code(s): I95.9 - HYPOTENSION, UNSPECIFIED Qualifiers: Hypotension type: unspecified hypotension type Qualified Code(s): I95.9 - Hypotension, unspecified (3) Anemia Code(s): D64.9 - ANEMIA, UNSPECIFIED Qualifiers: Other causes of anemia: chronic disease, kidney Assessment/Plan Current Medications Generic Name Dose Route Start Last Admin Trade Name Freq PRN Reason Stop Dose Admin Acetaminophen 325 mg 07/29/16 11:06 Tylenol - PO Q6H PRN FEVER Albuterol/Ipratropium 1 amp 07/29/16 11:06 Duoneb - NEB QID PRN SHORTNESS OF BREATH Amiodarone HCl 400 mg 07/29/16 14:00 Cordarone - PO TID [facility] Brimonidine Tartrate 1 drop 07/29/16 22:00 Alphagan P 0.1% - OU BID [facility] Collagenase 1 applic 07/30/16 10:00 Santyl - TP DAILY [facility] Dopamine HCl/Dextrose 250 mls @ 17.04 mls/hr 07/29/16 10:45 07/29/16 11:15 Dopamine 400 Mg/D5w - IVPB 5 mcg/kg/min TITR [facility] Titration Protocol 5 MCG/KG/MIN Cefepime HCl 1 gm/ Dextrose 100 mls @ 200 mls/hr 07/29/16 22:00 IVPB BID [facility] Levothyroxine Sodium 50 mcg 07/30/16 07:00 Synthroid - PO DAILY@0700 [facility] Metoprolol Tartrate 12.5 mg 07/29/16 22:00 Lopressor - PO BID [facility] Pantoprazole Sodium 40 mg 07/30/16 10:00 Protonix - PO DAILY [facility] Impression 1. ESRD on HD 2. hypotension 3. cellulitis/abscess of back 4. CHF 5. hypothyroidism 6. hyperlipidemia 7. COPD 8. a-fib Plan - will arrange for HD in ICU at bedside - cont wound care to legs - discussed with ICU team - discussed with medical attending - will need fistula once more stable - oxygen and bipap as needed - one to one feeds - will follow
--- NOTE | 2016-07-29 15:46 | PN ---
Progress Note, Physician Chief Complaint: hypotension sepsis History of Present Illness: This is a 76 year old male with known CAD, afib, chronic systolic chf, htn, dm, ckd, hld, and ckd with multiple recent admissions for infection/sepsis now admitted with hypotension and tachycardia. - Current Medication List Current Medications: Active Medications Acetaminophen (Tylenol -) 325 mg PO Q6H PRN PRN Reason: FEVER Albuterol/Ipratropium (Duoneb -) 1 amp NEB QID PRN PRN Reason: SHORTNESS OF BREATH Amiodarone HCl (Cordarone -) 400 mg PO TID [facility] Brimonidine Tartrate (Alphagan P 0.1% -) 1 drop OU BID [facility] Collagenase (Santyl -) 1 applic TP DAILY [facility] Dopamine HCl/Dextrose (Dopamine 400 Mg/D5w -) 250 mls @ 17.04 mls/hr IVPB TITR [facility]; 5 MCG/KG/MIN PRN Reason: Protocol Last Titration: 07/29/16 12:40 Dose: 10 mcg/kg/min Cefepime HCl 1 gm/ Dextrose 100 mls @ 200 mls/hr IVPB BID [facility] Levothyroxine Sodium (Synthroid -) 50 mcg PO DAILY@0700 [facility] Metoprolol Tartrate (Lopressor -) 12.5 mg PO BID [facility] Pantoprazole Sodium (Protonix -) 40 mg PO DAILY [facility] - Objective Vital Signs: Vital Signs Temperature 96.8 F L 07/29/16 12:25 Pulse Rate 117 H 07/29/16 15:30 Respiratory Rate 18 07/29/16 15:30 Blood Pressure 94/71 07/29/16 15:30 O2 Sat by Pulse Oximetry (%) 96 07/29/16 13:00 Constitutional: Yes: Mild Distress Neck: Yes: Supple Cardiovascular: Yes: Tachycardia, S1, S2. No: Regular Rate and Rhythm, JVD Respiratory: Yes: Diminished Gastrointestinal: Yes: Normal Bowel Sounds, Soft Edema: No Labs: CBC, BMP 07/29/16 10:15 07/29/16 10:15 INR, PTT INR 1.79 (0.82-1.09) H 07/24/16 12:30 - ....Imaging Chest X-ray: Report Reviewed Problem List - Problems (1) Rapid atrial fibrillation Code(s): I48.91 - UNSPECIFIED ATRIAL FIBRILLATION Assessment/Plan This is a 76 year old male with known CAD, afib, chronic systolic chf, htn, dm, ckd, hld, and ckd with multiple recent admissions for infection/sepsis now admitted with hypotension and tachycardia. 1) Sepsis -Hypotension likely due to sepsis/infection Patient started on dopamine and transferred to ICU. Abx as per primary team IVF boluses as needed. -Ventricular rates elevated to 110s-120 after being put on dopamine. No av higinio blockers given hypotension. Treat underlying infection. Dialysis today. 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 -Goals of care
[2016-07-29] MEDS ORDERED: AMIODARONE HCL INJECTION 150 MG in DEXTROSE 5%-WATER - 97 ML IVPB ONE (22:04)
[2016-07-29] MEDS: METOPROLOL TARTRATE 25 MG TABLET (FP) PO SCH (22:11)
[2016-07-29] MEDS ORDERED: AMIODARONE HCL INJECTION 450 MG in DEXTROSE 5%-WATER - 241 ML IVPB SCH (22:15)
[2016-07-29] MEDS ORDERED: AMIODARONE HCL 150 MG/3 ML VIAL ONE (22:17)
[2016-07-29] MEDS: BRIMONIDINE TARTRATE 0.1% OPHTHALMIC 5 ML BOTTLE OU SCH (22:38)
[2016-07-29] MEDS: CEFEPIME 1 GM in DEXTROSE 5%-WATER - 100 ML IVPB SCH (22:38)
[2016-07-30] MEDS: AMIODARONE HCL INJECTION 450 MG in DEXTROSE 5%-WATER - 241 ML IVPB SCH ×2 (01:29→04:15)
[2016-07-30] MEDS: LEVOTHYROXINE NA 50 MCG TABLET (FP) PO SCH (06:16)
[2016-07-30] MEDS: AMIODARONE HCL 200 MG TABLET (FP) PO SCH ×3 (06:18→21:30)
[2016-07-30 06:24] LABS: BASOPHIL 0.7 % (0-2.0); EOSINOPHIL 1.5 % (0-4.5); MCH 27.9 pg (25.7-33.7); MCHC 29.5 g/dl (32.0-35.9); MEAN CELL VOLUME 94.4 fl (80-96); MEAN PLT VOLUME 10.9 fl (7.5-11.1); NEUTROPHILS 77.2 % (42.8-82.8); PLATELET COUNT 125 K/MM3 (134-434); RDW 21.8 % (11.9-15.9); WHITE BLOOD COUNT 11.6 K/mm3 (4.0-10.0)
[2016-07-30 06:59] LABS: ALBUMIN 2.4 g/dl (3.4-5.0); BILIRUBIN,TOTAL 1.7 mg/dL (0.2-1.0); CALCIUM 8.3 mg/dL (8.5-10.1); COCKROFT - GAULT 24.14; CREATININE 3.2 mg/dL (0.7-1.3); TOT PROT 6.2 g/dl (6.4-8.2)
[2016-07-30 07:35] LABS: ARTERIAL BLD GAS O2 SATURATION 99.9 % (90-98.9); ARTERIAL BLOOD GAS BASE EXCESS 0.6 meq/l (-2-2); ARTERIAL BLOOD GAS HCO3 24.9 meq/L (22-26)
[2016-07-30 07:36] LABS: ALLENS TEST POSITIVE; ART PUNCT SITE RIGHT RADIAL; LPM/O2% 60%; PT. ON O2? YES; TYPE OF O2 BIPAP
[2016-07-30 07:37] LABS: MECH. VENT. BIPAP; VENT RATE 18; VT/PRESS 18/5
--- NOTE | 2016-07-30 08:24 | PN ---
Physical Exam: SUBJECTIVE: Patient seen and examined at bedside in ICU this AM. AAO and in a pleasant mood. Able to answer questions & make request for food. States his breathing is "fine" and he is feeling close to baseline. Afebrile overnight with no acute events noted. OBJECTIVE: Vital Signs Period Temp Pulse Resp BP Sys/Hubbard Pulse Ox Last 24 Hr 95.4 F-99.1 F 86-125 15-30 59-108/33-79 94-99 GENERAL: Awake, alert, and fully oriented, in no acute distress. Resting comfortably in bed on bipap. HEENT: Atraumatic, EOMI, PERRLA, No lymphadenopathy, dry membranes LUNGS: mild bibasilar crackles noted, no wheezing or accessory muscle use HEART: irregular, tachycardic, S1 and S2 without murmur, rub or gallop. ABDOMEN: Soft, nontender, not distended, normoactive bowel sounds EXTREMITIES: 1+ pulses, warm, well-perfused. No calf tenderness. +1 bilateral pitting edema in lower extremity NEUROLOGICAL: Cranial nerves II-XII intact. Normal speech. Gait not observed. PSYCHIATRIC: Cooperative. Good eye contact. Appropriate mood and affect. Able to answer questions and make requests. SKIN: multiple stage III decubitus to buttocks and scrotum Laboratory Results - last 24 hr 07/29/16 07/29/16 07/29/16 05:35 09:25 10:00 WBC RBC Hgb Hct MCV MCHC RDW Plt Count MPV Neutrophils % Lymphocytes % Monocytes % Eosinophils % Basophils % Puncture Site Right radial ABG pH 7.23 L* ABG pCO2 at Pt Temp 58.7 H ABG pO2 at Pt Temp 205.0 H* D ABG HCO3 23.6 ABG O2 Sat (Measured) 100.0 H* ABG O2 Content 12.8 L ABG Base Excess -3.7 L Frankie Test Positive O2 Delivery Device Nrb Oxygen Flow Rate 15 Vent Mode Vent Rate Mechanical Rate PEEP 0.0 Pressure Support Vent Sodium Potassium Chloride Carbon Dioxide Anion Gap BUN Creatinine Creat Clearance w eGFR POC Glucometer 97 Random Glucose Lactic Acid Calcium Phosphorus Cancelled Total Bilirubin AST ALT Alkaline Phosphatase Creatine Kinase Troponin I Total Protein Albumin 07/29/16 07/29/16 07/29/16 10:15 10:15 10:30 WBC 13.5 H RBC 3.21 L Hgb 9.1 L Hct 30.3 L MCV 94.4 MCHC 29.9 L RDW 21.7 H Plt Count 87 L MPV 10.9 Neutrophils % 79.9 Lymphocytes % 8.4 Monocytes % 10.0 Eosinophils % 1.2 Basophils % 0.5 Puncture Site ABG pH ABG pCO2 at Pt Temp ABG pO2 at Pt Temp ABG HCO3 ABG O2 Sat (Measured) ABG O2 Content ABG Base Excess Frankie Test O2 Delivery Device Oxygen Flow Rate Vent Mode Vent Rate Mechanical Rate PEEP Pressure Support Vent Sodium 143 Potassium 4.7 Chloride 105 Carbon Dioxide 24 Anion Gap 14 BUN 51 H Creatinine 4.5 H Creat Clearance w eGFR 12.81 POC Glucometer Random Glucose 94 Lactic Acid 2.861 H* Calcium 8.5 Phosphorus 5.4 H D Total Bilirubin 1.0 D AST 9 L ALT 17 Alkaline Phosphatase 78 Creatine Kinase 18 L Troponin I 0.07 H D Total Protein 5.8 L Albumin 2.0 L 07/30/16 07/30/16 07/30/16 05:15 05:15 07:15 WBC 11.6 H RBC 3.40 L Hgb 9.5 L Hct 32.1 L MCV 94.4 MCHC 29.5 L RDW 21.8 H Plt Count 125 L D MPV 10.9 Neutrophils % 77.2 Lymphocytes % 9.0 Monocytes % 11.6 H Eosinophils % 1.5 Basophils % 0.7 Puncture Site Right radial ABG pH 7.40 D ABG pCO2 at Pt Temp 41.4 D ABG pO2 at Pt Temp 148.0 H D ABG HCO3 24.9 ABG O2 Sat (Measured) 99.9 H* ABG O2 Content 12.6 L ABG Base Excess 0.6 Frankie Test Positive O2 Delivery Device Bipap Oxygen Flow Rate 60% Vent Mode S/t Vent Rate 18 Mechanical Rate Bipap PEEP 0.0 Pressure Support Vent 18/5 Sodium 145 Potassium 4.2 Chloride 102 Carbon Dioxide 26 Anion Gap 17 H BUN 27 H D Creatinine 3.2 H D Creat Clearance w eGFR 18.98 POC Glucometer Random Glucose 94 Lactic Acid Calcium 8.3 L Phosphorus Total Bilirubin 1.7 H D AST 18 D ALT 17 Alkaline Phosphatase 81 Creatine Kinase Troponin I Total Protein 6.2 L Albumin 2.4 L Active Medications Generic Name Dose Route Start Last Admin Trade Name Freq PRN Reason Stop Dose Admin Acetaminophen 325 mg 05/16/17 11:06 Tylenol - PO Q6H PRN FEVER Albuterol/Ipratropium 1 amp 07/29/16 11:06 Duoneb - NEB QID PRN SHORTNESS OF BREATH Amiodarone HCl 400 mg 07/29/16 14:00 07/30/16 06:18 Cordarone - PO Not Given TID [facility] Brimonidine Tartrate 1 drop 07/29/16 22:00 07/29/16 22:38 Alphagan P 0.1% - OU 1 drop BID [facility] Administration Collagenase 1 applic 07/30/16 10:00 Santyl - TP DAILY [facility] Dopamine HCl/Dextrose 250 mls @ 17.04 mls/hr 07/29/16 10:45 07/29/16 18:00 Dopamine 400 Mg/D5w - IVPB 5 mcg/kg/min TITR [facility] Titration Protocol 5 MCG/KG/MIN Cefepime HCl 1 gm/ Dextrose 100 mls @ 200 mls/hr 07/29/16 22:00 07/29/16 22:38 IVPB 200 mls/hr BID [facility] Administration Amiodarone HCl 450 mg/ 250 mls @ 16.66 mls/hr 07/29/16 04:15 07/30/16 04:15 Dextrose IVPB 16.6 mls/hr TITR [facility] Administration Protocol 0.5 MG/MIN Levothyroxine Sodium 50 mcg 07/30/16 07:00 07/30/16 06:16 Synthroid - PO 50 mcg DAILY@0700 [facility] Administration Metoprolol Tartrate 12.5 mg 07/29/16 22:00 07/29/16 22:11 Lopressor - PO Not Given BID [facility] Pantoprazole Sodium 40 mg 07/30/16 10:00 Protonix - PO DAILY [facility] ASSESSMENT/PLAN: 76 year old male with PMH of A-Fib, CAD, Systolic CHF, HTN/HLD, COPD, PUD, ESRD on HD, multiple lower back ulcers, hypothyroidism & DM who is sent to ICU s/p rapid response for hypotension. #Septic Shock, likely secondary to multiple decubitus ulcers -despite borderline low BP, need to be cautious with IVF given severely reduced EF -On low dose Dopamine for BP support with good results -Collagenase administration to wounds -continue Cefepime, Vancomycin -cultures retaken yesterday & pending -wound care consult appreciated -ID Consult appreciated #ESRD on HD -received HD yesterday -avoid nephrotoxic meds -Nephrology consult appreciated #Atrial Fibrillation/CAD Hx/CHF Hx -Not a candidate for AC -on Amiodarone 400mg PO TID -Lopressor 12.5mg BID, being held at present due to borderline hypotension -cardiology consult appreciated #COPD -Duonebs QIDR -Albuterol PRN -Saturating well on NC @4L presently -BiPap at night and as needed #Hypothyroidism -continue home meds: Synthroid 50mcg Prophylaxis -SCD's -PPI -cautious with IVF administration -monitor electrolytes -Dysphasia Pureed diet Dispo: Palliative Care consulted. Patient is DNR. Niece is HCP. Patient is estranged from his & states that he does not want her to visit him. informed while attempting to visit yesterday. Visit type - Emergency Visit Emergency Visit: Yes ED Registration Date: 07/24/16 Care time: The patient presented to the Emergency Department on the above date and was hospitalized for further evaluation of their emergent condition. - New Patient This patient is new to me today: No - Critical Care Critical Care patient: Yes Total Critical Care Time (in minutes): 40 Critical Care Statement: The care of this patient involved high complexity decision making to prevent further life threatening deterioration of the patient 's condition and/or to evalute & treat vital organ system(s) failure or risk of failure.
[2016-07-30] MEDS: CEFEPIME 1 GM in DEXTROSE 5%-WATER - 100 ML IVPB SCH ×3 (09:30→21:37)
[2016-07-30] MEDS ORDERED: PT OWN MED DRAWER 7, Y5N ONE ×3 (10:06→21:35)
--- NOTE | 2016-07-30 10:36 | PN ---
Progress Note, Physician History of Present Illness: Awake, responsive Breathing non-labored on bipap Temps improved WBC, plt count improved Cultures pending - Current Medication List Current Medications: Active Medications Acetaminophen (Tylenol -) 325 mg PO Q6H PRN PRN Reason: FEVER Albuterol/Ipratropium (Duoneb -) 1 amp NEB QID PRN PRN Reason: SHORTNESS OF BREATH Amiodarone HCl (Cordarone -) 400 mg PO TID [facility] Last Admin: 07/30/16 06:18 Dose: Not Given Brimonidine Tartrate (Alphagan P 0.1% -) 1 drop OU BID [facility] Last Admin: 07/29/16 22:38 Dose: 1 drop Collagenase (Santyl -) 1 applic TP DAILY [facility] Dopamine HCl/Dextrose (Dopamine 400 Mg/D5w -) 250 mls @ 17.04 mls/hr IVPB TITR [facility]; 5 MCG/KG/MIN PRN Reason: Protocol Last Titration: 07/29/16 18:00 Dose: 5 mcg/kg/min Cefepime HCl 1 gm/ Dextrose 100 mls @ 200 mls/hr IVPB BID [facility] Last Admin: 07/29/16 22:38 Dose: 200 mls/hr Amiodarone HCl 450 mg/ (Dextrose) 250 mls @ 16.66 mls/hr IVPB TITR [facility]; 0.5 MG/ MIN PRN Reason: Protocol Last Admin: 07/30/16 04:15 Dose: 16.6 mls/hr Levothyroxine Sodium (Synthroid -) 50 mcg PO DAILY@0700 [facility] Last Admin: 07/30/16 06:16 Dose: 50 mcg Metoprolol Tartrate (Lopressor -) 12.5 mg PO BID [facility] Last Admin: 07/29/16 22:11 Dose: Not Given Pantoprazole Sodium (Protonix -) 40 mg PO DAILY [facility] - Objective Vital Signs: Vital Signs Temperature 981 F H 07/30/16 10:05 Pulse Rate 90 07/30/16 10:05 Respiratory Rate 26 H 07/30/16 10:05 Blood Pressure 106/84 07/30/16 10:05 O2 Sat by Pulse Oximetry (%) 94 L 07/29/16 20:00 Constitutional: Yes: No Distress Eyes: Yes: Conjunctiva Clear Cardiovascular: Yes: Regular Rate and Rhythm, S1, S2 Respiratory: Yes: Diminished Gastrointestinal: Yes: Normal Bowel Sounds, Soft. No: Tenderness Extremities: Yes: Other (bilateral necrotic ulcers, LE + exposed tendons) Edema: No Labs: CBC, BMP 07/30/16 05:15 07/30/16 05:15 INR, PTT INR 1.79 (0.82-1.09) H 07/24/16 12:30 Assessment/Plan Hypotension, hypothermia possible sepsis- improved ESRD Leukocytosis Thrombocytopenia improved Lactic acidosis + buttock, bilateral LE ulcers Cultures pending empiric vanco/ cefepime Hemodynamic support Prognosis guarded
[2016-07-30] MEDS: BRIMONIDINE TARTRATE 0.1% OPHTHALMIC 5 ML BOTTLE OU SCH ×2 (11:00→21:37)
--- NOTE | 2016-07-30 11:27 | PN ---
Progress Note, Physician Chief Complaint: BP better, HR decreased pt on Dopamine drip and Amiodarone drip Temps better awake and alert on BIPAP , changed over to ventimask - Current Medication List Current Medications: Active Medications Acetaminophen (Tylenol -) 325 mg PO Q6H PRN PRN Reason: FEVER Albuterol/Ipratropium (Duoneb -) 1 amp NEB QID PRN PRN Reason: SHORTNESS OF BREATH Amiodarone HCl (Cordarone -) 400 mg PO TID [facility] Last Admin: 07/30/16 06:18 Dose: Not Given Brimonidine Tartrate (Alphagan P 0.1% -) 1 drop OU BID [facility] Last Admin: 07/29/16 22:38 Dose: 1 drop Collagenase (Santyl -) 1 applic TP DAILY [facility] Dopamine HCl/Dextrose (Dopamine 400 Mg/D5w -) 250 mls @ 17.04 mls/hr IVPB TITR [facility]; 5 MCG/KG/MIN PRN Reason: Protocol Last Titration: 07/29/16 18:00 Dose: 5 mcg/kg/min Cefepime HCl 1 gm/ Dextrose 100 mls @ 200 mls/hr IVPB BID [facility] Last Admin: 07/29/16 22:38 Dose: 200 mls/hr Amiodarone HCl 450 mg/ (Dextrose) 250 mls @ 16.66 mls/hr IVPB TITR [facility]; 0.5 MG/ MIN PRN Reason: Protocol Last Admin: 07/30/16 04:15 Dose: 16.6 mls/hr Levothyroxine Sodium (Synthroid -) 50 mcg PO DAILY@0700 [facility] Last Admin: 07/30/16 06:16 Dose: 50 mcg Metoprolol Tartrate (Lopressor -) 12.5 mg PO BID [facility] Last Admin: 07/29/16 22:11 Dose: Not Given Pantoprazole Sodium (Protonix -) 40 mg PO DAILY [facility] - Objective Vital Signs: Vital Signs Temperature 981 F H 07/30/16 10:05 Pulse Rate 90 07/30/16 10:05 Respiratory Rate 26 H 07/30/16 10:05 Blood Pressure 106/84 07/30/16 10:05 O2 Sat by Pulse Oximetry (%) 94 L 07/29/16 20:00 Constitutional: Yes: No Distress, Calm Cardiovascular: Yes: Pulse Irregular Respiratory: Yes: Diminished Gastrointestinal: Yes: Normal Bowel Sounds, Soft. No: Distention, Tenderness Extremities: Yes: Other (B/L leg ulcers-- left one has purulent base and drainage-- skin falling off . Rt one-- skin peeling off, no discharge) Edema: Yes Edema: LLE: Trace, RLE: Trace Neurological: Yes: Alert, Oriented Labs: CBC, BMP 07/30/16 05:15 07/30/16 05:15 INR, PTT INR 1.79 (0.82-1.09) H 07/24/16 12:30 Problem List - Problems (1) Congestive heart failure (CHF) Code(s): I50.9 - HEART FAILURE, UNSPECIFIED Qualifiers: Qualified Code(s): I50.22 - Chronic systolic (congestive) heart failure (2) DMII (diabetes mellitus, type 2) Code(s): E11.9 - TYPE 2 DIABETES MELLITUS WITHOUT COMPLICATIONS (3) HTN (hypertension) Code(s): I10 - ESSENTIAL (PRIMARY) HYPERTENSION Qualifiers: Qualified Code(s): I10 - Essential (primary) hypertension (4) Pressure ulcer of lower extremity, stage 1 Code(s): L89.891 - PRESSURE ULCER OF OTHER SITE, STAGE 1 (5) Sepsis Code(s): A41.9 - SEPSIS, UNSPECIFIED ORGANISM Qualifiers: Qualified Code(s): A41.9 - Sepsis, unspecified organism (6) Rapid atrial fibrillation Code(s): I48.91 - UNSPECIFIED ATRIAL FIBRILLATION (7) Functional quadriplegia Code(s): R53.2 - FUNCTIONAL QUADRIPLEGIA (8) End stage renal disease on dialysis Code(s): N18.6 - END STAGE RENAL DISEASE Z99.2 - DEPENDENCE ON RENAL DIALYSIS Assessment/Plan PLAN SEPSIS antibiotics restarted -- vanco and cefepime blood cultures redrawn WBC decreased, platelets better -- likely due to wounds -- wound care eval for possible debridement HYPOTENSION baseline blood pressure is on the lower side, monitor blood pressure. better on Dopamine infusion asymptomatic, awake end-stage renal disease on dialysis HD per Renal CXR shows rt pleural effusion elevated troponins, rapid A. fib Not a candidate for anticoagulation rate control with Amiodarone- on amio infusion CHF systolic heart failure HD per renal clinically not in respiratory distress usually it is difficult to get O2 sat reading for this pt-- ABG noted Not on AceI or ARB due to hypotension advanced directives patient is DNR He has informed me and confirmed today and also told the ICU team yesterday that his niece is his HCP and makes decisions and not his BIPAP as needed ICU monitoring
--- NOTE | 2016-07-30 11:35 | PN ---
Progress Note, Physician History of Present Illness: Pt seen and examined at bedside. He is awake and appears comfortable. - Current Medication List Current Medications: Active Medications Acetaminophen (Tylenol -) 325 mg PO Q6H PRN PRN Reason: FEVER Albuterol/Ipratropium (Duoneb -) 1 amp NEB QID PRN PRN Reason: SHORTNESS OF BREATH Amiodarone HCl (Cordarone -) 400 mg PO TID [facility] Last Admin: 07/30/16 06:18 Dose: Not Given Brimonidine Tartrate (Alphagan P 0.1% -) 1 drop OU BID [facility] Last Admin: 07/29/16 22:38 Dose: 1 drop Collagenase (Santyl -) 1 applic TP DAILY [facility] Dopamine HCl/Dextrose (Dopamine 400 Mg/D5w -) 250 mls @ 17.04 mls/hr IVPB TITR [facility]; 5 MCG/KG/MIN PRN Reason: Protocol Last Titration: 07/29/16 18:00 Dose: 5 mcg/kg/min Cefepime HCl 1 gm/ Dextrose 100 mls @ 200 mls/hr IVPB BID [facility] Last Admin: 07/29/16 22:38 Dose: 200 mls/hr Amiodarone HCl 450 mg/ (Dextrose) 250 mls @ 16.66 mls/hr IVPB TITR [facility]; 0.5 MG/ MIN PRN Reason: Protocol Last Admin: 07/30/16 04:15 Dose: 16.6 mls/hr Levothyroxine Sodium (Synthroid -) 50 mcg PO DAILY@0700 [facility] Last Admin: 07/30/16 06:16 Dose: 50 mcg Metoprolol Tartrate (Lopressor -) 12.5 mg PO BID [facility] Last Admin: 07/29/16 22:11 Dose: Not Given Pantoprazole Sodium (Protonix -) 40 mg PO DAILY [facility] - Objective Vital Signs: Vital Signs Temperature 981 F H 07/30/16 10:05 Pulse Rate 90 07/30/16 10:05 Respiratory Rate 26 H 07/30/16 10:05 Blood Pressure 106/84 07/30/16 10:05 O2 Sat by Pulse Oximetry (%) 94 L 07/29/16 20:00 Constitutional: Yes: Calm Eyes: Yes: Conjunctiva Clear Cardiovascular: Yes: S1, S2 Respiratory: Yes: On BiPap Gastrointestinal: Yes: Soft Genitourinary: Yes: Incontinence Musculoskeletal: Yes: Muscle Weakness Edema: No Integumentary: Yes: Other (bilateral lower extremity ulcers) Neurological: Yes: Oriented Psychiatric: Yes: Oriented Labs: CBC, BMP 07/30/16 05:15 07/30/16 05:15 INR, PTT INR 1.79 (0.82-1.09) H 07/24/16 12:30 Problem List - Problems (1) End stage renal disease on dialysis Code(s): N18.6 - END STAGE RENAL DISEASE Z99.2 - DEPENDENCE ON RENAL DIALYSIS (2) Hypotension Code(s): I95.9 - HYPOTENSION, UNSPECIFIED Qualifiers: Qualified Code(s): I95.9 - Hypotension, unspecified (3) Anemia Code(s): D64.9 - ANEMIA, UNSPECIFIED Qualifiers: Qualified Code(s): N18.9 - Chronic kidney disease, unspecified; D63.1 - Anemia in chronic kidney disease Assessment/Plan Current Medications Generic Name Dose Route Start Last Admin Trade Name Freq PRN Reason Stop Dose Admin Acetaminophen 325 mg 07/29/16 11:06 Tylenol - PO Q6H PRN FEVER Albuterol/Ipratropium 1 amp 07/29/16 11:06 Duoneb - NEB QID PRN SHORTNESS OF BREATH Amiodarone HCl 400 mg 07/29/16 14:00 07/30/16 06:18 Cordarone - PO Not Given TID [facility] Brimonidine Tartrate 1 drop 07/29/16 22:00 07/29/16 22:38 Alphagan P 0.1% - OU 1 drop BID [facility] Administration Collagenase 1 applic 07/30/16 10:00 Santyl - TP DAILY [facility] Dopamine HCl/Dextrose 250 mls @ 17.04 mls/hr 07/29/16 10:45 07/29/16 18:00 Dopamine 400 Mg/D5w - IVPB 5 mcg/kg/min TITR [facility] Titration Protocol 5 MCG/KG/MIN Cefepime HCl 1 gm/ Dextrose 100 mls @ 200 mls/hr 07/29/16 22:00 07/29/16 22:38 IVPB 200 mls/hr BID [facility] Administration Levothyroxine Sodium 50 mcg 07/30/16 07:00 07/30/16 06:16 Synthroid - PO 50 mcg DAILY@0700 [facility] Administration Metoprolol Tartrate 12.5 mg 07/29/16 22:00 07/29/16 22:11 Lopressor - PO Not Given BID [facility] Pantoprazole Sodium 40 mg 07/30/16 10:00 Protonix - PO DAILY [facility] Impression 1. ESRD on HD 2. hypotension 3. cellulitis/abscess of back 4. CHF 5. hypothyroidism 6. hyperlipidemia 7. COPD 8. a-fib Plan - HD in am - cxr is improved - monitor blood pressure closely - cont wound care to legs - will need fistula once more stable - one to one feeds - cont with bipap as needed, monitor pulse ox - will follow
[2016-07-30] MEDS: COLLAGENASE CLOSTRIDIUM HIST. 30 GRAMS TUBE TP SCH (12:00)
[2016-07-30] MEDS: PANTOPRAZOLE 40 MG TABLET (FP) PO SCH (12:30)
--- NOTE | 2016-07-30 12:38 | PN ---
Teaching Attending Note Name of Resident: Irvin Harden ATTENDING PHYSICIAN STATEMENT I saw and evaluated the patient. I reviewed the resident's note and discussed the case with the resident. I agree with the resident's findings and plan as documented. SUBJECTIVE: Pt seen and examined in the ICU. Remains on BiPAP with 60% FiO2. More alert, awake. Remains on low dose dopamine gtt. No fevers recorded. OBJECTIVE: Last Vital Signs Temp Pulse Resp BP Pulse Ox 981 F H 90 26 H 88/59 94 L 07/30/16 10:00 07/30/16 12:00 07/30/16 12:00 07/30/16 12:00 07/29/16 20:00 Intake & Output 07/27/16 07/28/16 07/29/16 07/30/16 23:59 23:59 23:59 23:59 Intake Total 240 50 557 283.0 Output Total 50 Balance 240 50 507 283.0 Weight 199 lb 12.8 oz 200 lb 5.76 oz 191 lb 9.6 oz Gen: less tachypneic Heart: RRR Lung: decreased breath sounds at the bases Abd: soft, nontender Ext: no edema, multiple ulcers CBC, BMP 07/30/16 05:15 07/30/16 05:15 Active Medications Acetaminophen (Tylenol -) 325 mg PO Q6H PRN PRN Reason: FEVER Albumin Human (Albumin Human 25%) 12.5 gm IVPB Q30M [facility] Stop: 07/31/16 13:16 Albuterol/Ipratropium (Duoneb -) 1 amp NEB QID PRN PRN Reason: SHORTNESS OF BREATH Amiodarone HCl (Cordarone -) 400 mg PO TID [facility] Last Admin: 07/30/16 06:18 Dose: Not Given Brimonidine Tartrate (Alphagan P 0.1% -) 1 drop OU BID [facility] Last Admin: 07/29/16 22:38 Dose: 1 drop Collagenase (Santyl -) 1 applic TP DAILY [facility] Heparin Sodium (Porcine) (Heparin -) 1,000 unit IVPUSH ONCE ONE Stop: 07/31/16 11:36 Dopamine HCl/Dextrose (Dopamine 400 Mg/D5w -) 250 mls @ 17.04 mls/hr IVPB TITR [facility]; 5 MCG/KG/MIN PRN Reason: Protocol Last Titration: 07/29/16 18:00 Dose: 5 mcg/kg/min Cefepime HCl 1 gm/ Dextrose 100 mls @ 200 mls/hr IVPB BID [facility] Last Admin: 07/29/16 22:38 Dose: 200 mls/hr Levothyroxine Sodium (Synthroid -) 50 mcg PO DAILY@0700 [facility] Last Admin: 07/30/16 06:16 Dose: 50 mcg Metoprolol Tartrate (Lopressor -) 12.5 mg PO BID [facility] Last Admin: 07/29/16 22:11 Dose: Not Given Pantoprazole Sodium (Protonix -) 40 mg PO DAILY [facility] ASSESSMENT AND PLAN: Acute on Chronic Hypoxic and Hypercapneic Respiratory Failure Sacral Decubitus Ulcer Infection Septic Shock Lactic Acidosis ESRD on HD Severe LV Systolic Dysfunction Atrial Fibrillation CAD - antibiotics per ID - f/u cultures - IVF boluses as needed - taper dopamine gtt to maintain MAP >50 - BiPAP to assist in work of breathing and acute hypercapnea - can attempt ventimask - O2 to keep SpO2 >90% - trend lactate - HD per renal - aspiration precautions - wound care - DVT prophylaxis - continue discussions regarding goals of care as pt chronically ill with prolonged multiple hospitalizations critical care time spent in reviewing chart, evaluating patient and formulating plan 38 min
--- NOTE | 2016-07-30 12:58 | ETH ---
Ethics Committee Report: Ethics Consult initiated on 07/28/16 at 10:21 AM by Oziel Casey MD, for resolution of dispute between and niece as patient's health care proxy. Consult avoided when patient, reportedly in the presence of his niece and and physician, said he wanted his niece to continue as his health care proxy and for his not to visit him. Please refer to physician note, MD Christiano Harden , made on 07/30/16.
--- NOTE | 2016-07-30 13:02 | CON.PSY ---
Psychiatry Consult Chief Complaint: Patient seen for Psych eval to assess capacity to make decisioins. patients niece has been his legal guardian and Health care proxy for some time. - Previous Psychiatric Treatment Outpatient: None Inpatient: None - Previous Substance Abuse Treatment Outpatient: None Inpatient: None - Current Medications Current Medications: Active Medications Acetaminophen (Tylenol -) 325 mg PO Q6H PRN PRN Reason: FEVER Albumin Human (Albumin Human 25%) 12.5 gm IVPB Q30M [facility] Stop: 07/31/16 13:16 Albuterol/Ipratropium (Duoneb -) 1 amp NEB QID PRN PRN Reason: SHORTNESS OF BREATH Amiodarone HCl (Cordarone -) 400 mg PO TID [facility] Last Admin: 07/30/16 06:18 Dose: Not Given Brimonidine Tartrate (Alphagan P 0.1% -) 1 drop OU BID [facility] Last Admin: 07/29/16 22:38 Dose: 1 drop Collagenase (Santyl -) 1 applic TP DAILY [facility] Heparin Sodium (Porcine) (Heparin -) 1,000 unit IVPUSH ONCE ONE Stop: 07/31/16 11:36 Dopamine HCl/Dextrose (Dopamine 400 Mg/D5w -) 250 mls @ 17.04 mls/hr IVPB TITR [facility]; 5 MCG/KG/MIN PRN Reason: Protocol Last Titration: 07/29/16 18:00 Dose: 5 mcg/kg/min Cefepime HCl 1 gm/ Dextrose 100 mls @ 200 mls/hr IVPB BID [facility] Last Admin: 07/29/16 22:38 Dose: 200 mls/hr Levothyroxine Sodium (Synthroid -) 50 mcg PO DAILY@0700 [facility] Last Admin: 07/30/16 06:16 Dose: 50 mcg Metoprolol Tartrate (Lopressor -) 12.5 mg PO BID [facility] Last Admin: 07/29/16 22:11 Dose: Not Given Pantoprazole Sodium (Protonix -) 40 mg PO DAILY [facility] - Allergies Allergies: Allergies Allergy/AdvReac Type Severity Reaction Status Date / Time No Known Allergies Allergy Verified 05/23/16 23:31 - Current Living Status Usual Living Arrangement: Alone - Current Mental Status Evaluation Appearance: Well Groomed Attitude: Cooperative - Affect Affect: Full Range Appropriateness: Appropriate to Content - Mood Mood: Euthymic - Speech/Language Expressive: Coherent Receptive: Age Appropriate Comprehension of Spoken Words - Psychomotor Activity Psychomotor Activity: Normal - Thought Process Thought Process: Intact - Thought Content Hallucinations: Absent Delusions: Absent - Self Perception Self Perception: No Impairment - Cognition Attention: Alert Orientation: Time Memory, Immediate Recall: Intact Memory, Short Term: 3/3 Memory, Remote with Promptin/3 - Concentration Serial Sevens Intact: No Simple Calculations Intact: No - Abstraction Proverb Interpretation: Intact Judgement: Intact - Insight Insight: Intact - Impulse Control Impulse Control: Good Control - Suicidal Ideation Suicidal Ideation: No - Homicidal Ideation Homicidal Ideation: No Assessment/Plan 1) Patient has the mental capacity to make decisions at this time.2) Patient wants his currant legal guardian and Health care proxy to continue to manage his care.
[2016-07-30] MEDS: METOPROLOL TARTRATE 25 MG TABLET (FP) PO SCH ×2 (14:21→21:30)
[2016-07-30] MEDS: DOPAMINE 400 MG/D5W - 250 ML IVPB SCH (14:22)
--- NOTE | 2016-07-30 15:12 | PN ---
Progress Note, Physician Chief Complaint: Mental status improving Less tachypneic and more responsive History of Present Illness: This is a 76 year old male with known CAD, afib, chronic systolic chf, htn, dm, ckd, hld, and ckd with multiple recent admissions for infection/sepsis now admitted with hypotension and tachycardia. - Current Medication List Current Medications: Active Medications Acetaminophen (Tylenol -) 325 mg PO Q6H PRN PRN Reason: FEVER Albumin Human (Albumin Human 25%) 12.5 gm IVPB Q30M [facility] Stop: 07/31/16 13:16 Albuterol/Ipratropium (Duoneb -) 1 amp NEB QID PRN PRN Reason: SHORTNESS OF BREATH Amiodarone HCl (Cordarone -) 400 mg PO TID [facility] Last Admin: 07/30/16 12:30 Dose: 400 mg Brimonidine Tartrate (Alphagan P 0.1% -) 1 drop OU BID [facility] Last Admin: 07/30/16 11:00 Dose: 1 drop Collagenase (Santyl -) 1 applic TP DAILY [facility] Last Admin: 07/30/16 12:00 Dose: 1 applic Heparin Sodium (Porcine) (Heparin -) 1,000 unit IVPUSH ONCE ONE Stop: 07/31/16 11:36 Dopamine HCl/Dextrose (Dopamine 400 Mg/D5w -) 250 mls @ 17.04 mls/hr IVPB TITR [facility]; 5 MCG/KG/MIN PRN Reason: Protocol Last Admin: 07/30/16 14:22 Dose: 17.04 mls/hr Cefepime HCl 1 gm/ Dextrose 100 mls @ 200 mls/hr IVPB BID [facility] Last Admin: 07/30/16 09:30 Dose: 200 mls/hr Levothyroxine Sodium (Synthroid -) 50 mcg PO DAILY@0700 [facility] Last Admin: 07/30/16 06:16 Dose: 50 mcg Metoprolol Tartrate (Lopressor -) 12.5 mg PO BID [facility] Last Admin: 07/30/16 14:21 Dose: Not Given Pantoprazole Sodium (Protonix -) 40 mg PO DAILY [facility] Last Admin: 07/30/16 12:30 Dose: 40 mg - Objective Vital Signs: Vital Signs Temperature 981 F H 07/30/16 10:00 Pulse Rate 90 07/30/16 12:00 Respiratory Rate 26 H 07/30/16 12:00 Blood Pressure 88/59 07/30/16 12:00 O2 Sat by Pulse Oximetry (%) 96 07/30/16 10:35 Constitutional: Yes: No Distress Cardiovascular: Yes: S1, S2. No: Regular Rate and Rhythm Respiratory: Yes: Diminished (diminished at the bases) Gastrointestinal: Yes: Normal Bowel Sounds, Soft Edema: No Labs: CBC, BMP 07/30/16 05:15 07/30/16 05:15 INR, PTT INR 1.79 (0.82-1.09) H 07/24/16 12:30 - ....Imaging Chest X-ray: Report Reviewed Problem List - Problems (1) Rapid atrial fibrillation Code(s): I48.91 - UNSPECIFIED ATRIAL FIBRILLATION Assessment/Plan This is a 76 year old male with known CAD, afib, chronic systolic chf, htn, dm, ckd, hld, and ckd with multiple recent admissions for infection/sepsis admitted with hypotension and tachycardia in setting of sepsis. 1) Sepsis -antibiotics as per primary team Pressors as needed for hemodynamic support IVF boluses as needed. -Ventricular rates controlled today. No av higinio blockers as BP would not tolerate. Currently on amiodarone but if remains in afib halfway will reevaluate AC is currently on hold.
[2016-07-30] MEDS ORDERED: CEFEPIME 100 ML IVPB SCH (22:00)
[2016-07-31] MEDS: AMIODARONE HCL 200 MG TABLET (FP) PO SCH ×3 (06:20→21:36)
[2016-07-31] MEDS: LEVOTHYROXINE NA 50 MCG TABLET (FP) PO SCH (06:20)
--- NOTE | 2016-07-31 08:45 | PN ---
Physical Exam: SUBJECTIVE: Patient seen and examined at bedside this AM. AAO and resting comfortably in bed on bipap. States he feels well, low BP overnight but asymptomatic throughout. Tolerating ventimask as well for periods of time. OBJECTIVE: Vital Signs Period Temp Pulse Resp BP Sys/Hubbard Pulse Ox Last 24 Hr 98 F-98.4 F 75-110 20-33 70-112/32-99 94-96 GENERAL: Awake, alert, and fully oriented, in no acute distress. Resting comfortably in bed on bipap. HEENT: Atraumatic, EOMI, PERRLA, No lymphadenopathy, dry membranes LUNGS: mild bibasilar crackles noted, no wheezing or accessory muscle use HEART: irregular, tachycardic, S1 and S2 without murmur, rub or gallop. ABDOMEN: Soft, nontender, not distended, normoactive bowel sounds EXTREMITIES: 1+ pulses, warm, well-perfused. No calf tenderness. +1 bilateral pitting edema in lower extremity NEUROLOGICAL: Cranial nerves II-XII intact. Normal speech. Gait not observed. PSYCHIATRIC: Cooperative. Good eye contact. Appropriate mood and affect. Able to answer questions and make requests. SKIN: multiple stage III decubitus to buttocks, shins and scrotum Active Medications Generic Name Dose Route Start Last Admin Trade Name Freq PRN Reason Stop Dose Admin Acetaminophen 325 mg 07/29/16 11:06 Tylenol - PO Q6H PRN FEVER Albumin Human 12.5 gm 07/31/16 11:45 Albumin Human 25% IVPB 07/31/16 13:16 Q30M [facility] Albuterol/Ipratropium 1 amp 07/29/16 11:06 Duoneb - NEB QID PRN SHORTNESS OF BREATH Amiodarone HCl 400 mg 07/29/16 14:00 07/31/16 06:20 Cordarone - PO 400 mg TID [facility] Administration Brimonidine Tartrate 1 drop 07/29/16 22:00 07/30/16 21:37 Alphagan P 0.1% - OU 1 drop BID [facility] Administration Collagenase 1 applic 07/30/16 10:00 07/30/16 12:00 Santyl - TP 1 applic DAILY [facility] Administration Heparin Sodium (Porcine) 1,000 unit 07/31/16 11:35 Heparin - IVPUSH 07/31/16 11:36 ONCE ONE Dopamine HCl/Dextrose 250 mls @ 17.04 mls/hr 07/29/16 10:45 07/30/16 14:22 Dopamine 400 Mg/D5w - IVPB 17.04 mls/hr TITR [facility] Administration Protocol 5 MCG/KG/MIN Cefepime HCl 1 gm/ Dextrose 100 mls @ 200 mls/hr 07/30/16 22:00 07/30/16 21:37 IVPB 08/05/16 10:29 200 mls/hr BID [facility] Administration Levothyroxine Sodium 50 mcg 07/30/16 07:00 07/31/16 06:20 Synthroid - PO 50 mcg DAILY@0700 [facility] Administration Metoprolol Tartrate 12.5 mg 07/29/16 22:00 07/30/16 21:30 Lopressor - PO Not Given BID [facility] Pantoprazole Sodium 40 mg 07/30/16 10:00 07/30/16 12:30 Protonix - PO 40 mg DAILY [facility] Administration ASSESSMENT/PLAN: 76 year old male with PMH of A-Fib, CAD, Systolic CHF, HTN/HLD, COPD, PUD, ESRD on HD, multiple lower back ulcers, hypothyroidism & DM who is sent to ICU s/p rapid response for hypotension. #Septic Shock, likely secondary to multiple decubitus ulcers -Lop BP, given 500ml IVF bolus without resolution this AM; restarted on Dopamine drip (very low dose 2mcg/hr), will wean again later today -Collagenase administration to wounds -continue Cefepime, Vancomycin -wound culture ordered -blood cultures (-) -wound care re-consult requested -ID Consult appreciated #ESRD on HD -to receive HD today -avoid nephrotoxic meds -Nephrology consult appreciated #Atrial Fibrillation/CAD Hx/CHF Hx -Not a candidate for AC -on Amiodarone 400mg PO TID -Lopressor 12.5mg BID, being held at present due to borderline hypotension -cardiology consult appreciated #COPD -Duonebs QIDR -Albuterol PRN -Saturating well on NC @4L presently -BiPap at night and as needed #Hypothyroidism -continue home meds: Synthroid 50mcg Prophylaxis -SCD's -PPI -cautious with IVF administration -monitor electrolytes -Dysphasia Pureed diet Dispo: Palliative Care consulted. Patient is DNR. Niece is HCP. Patient is estranged from his & states that he does not want her to visit him. informed while attempting to visit. Visit type - Emergency Visit Emergency Visit: Yes ED Registration Date: 07/24/16 Care time: The patient presented to the Emergency Department on the above date and was hospitalized for further evaluation of their emergent condition. - New Patient This patient is new to me today: No - Critical Care Critical Care patient: Yes Total Critical Care Time (in minutes): 40 Critical Care Statement: The care of this patient involved high complexity decision making to prevent further life threatening deterioration of the patient 's condition and/or to evalute & treat vital organ system(s) failure or risk of failure.
[2016-07-31] MEDS ORDERED: SODIUM CHLORIDE 500 ML IV STA (08:56)
[2016-07-31 08:57] LABS: BASOPHIL 0.4 % (0-2.0); MCH 27.7 pg (25.7-33.7); MCHC 29.7 g/dl (32.0-35.9); MEAN CELL VOLUME 93.1 fl (80-96); MEAN PLT VOLUME 10.2 fl (7.5-11.1); NEUTROPHILS 78.7 % (42.8-82.8); PLATELET COUNT 89 K/MM3 (134-434); RDW 21.1 % (11.9-15.9); WHITE BLOOD COUNT 13.1 K/mm3 (4.0-10.0)
[2016-07-31 09:13] LABS: BILIRUBIN,TOTAL 1.4 mg/dL (0.2-1.0); CALCIUM 8.7 mg/dL (8.5-10.1); COCKROFT - GAULT 19.15
[2016-07-31 09:14] LABS: TOT PROT 5.4 g/dl (6.4-8.2)
--- NOTE | 2016-07-31 09:49 | PN ---
Physical Exam: SUBJECTIVE: Patient seen and examined. on BiPap, hypotensive, off dopamine, in atrial fibrillation. With multiple infected bilateral LE decubiti. Afebrile, slight increase in white count, no new complaints. OBJECTIVE: Vital Signs Period Temp Pulse Resp BP Sys/Hubbard Pulse Ox Last 24 Hr 98 F-98.4 F 75-110 20-33 70-112/32-99 94-96 GENERAL: The patient is awake, on BiPAP LUNGS: decreased Breath sounds clear to auscultation bilaterally, no wheezes, no crackles, + accessory muscle use. HEART: tachycardic and irregular rhythm, S1, S2 without murmur, rub or gallop. ABDOMEN: Soft, nontender, nondistended, normoactive bowel sounds, no guarding, no rebound, no hepatosplenomegaly, no masses. EXTREMITIES: 2+ pulses, warm, well-perfused, no edema. Bilateral decubitus ulcers with oozing green thick discharge from all wounds NEUROLOGICAL: Cranial nerves II through XII grossly intact. Normal speech, gait not observed. SKIN: Warm, dry, normal turgor CBC, BMP 07/31/16 08:25 07/31/16 08:25 Active Medications Generic Name Dose Route Start Last Admin Trade Name Freq PRN Reason Stop Dose Admin Acetaminophen 325 mg 07/29/16 11:06 Tylenol - PO Q6H PRN FEVER Albumin Human 12.5 gm 07/31/16 11:45 Albumin Human 25% IVPB 07/31/16 13:16 Q30M [facility] Albuterol/Ipratropium 1 amp 07/29/16 11:06 Duoneb - NEB QID PRN SHORTNESS OF BREATH Amiodarone HCl 400 mg 07/29/16 14:00 07/31/16 06:20 Cordarone - PO 400 mg TID [facility] Administration Brimonidine Tartrate 1 drop 07/29/16 22:00 07/30/16 21:37 Alphagan P 0.1% - OU 1 drop BID [facility] Administration Collagenase 1 applic 07/30/16 10:00 07/30/16 12:00 Santyl - TP 1 applic DAILY [facility] Administration Heparin Sodium (Porcine) 1,000 unit 07/31/16 11:35 Heparin - IVPUSH 07/31/16 11:36 ONCE ONE Dopamine HCl/Dextrose 250 mls @ 17.04 mls/hr 07/29/16 10:45 07/30/16 14:22 Dopamine 400 Mg/D5w - IVPB 17.04 mls/hr TITR [facility] Administration Protocol 5 MCG/KG/MIN Cefepime HCl 1 gm/ Dextrose 100 mls @ 200 mls/hr 07/30/16 22:00 07/30/16 21:37 IVPB 08/05/16 10:29 200 mls/hr BID [facility] Administration Sodium Chloride 500 mls @ 500 mls/hr 07/31/16 08:56 Normal Saline - IV 07/31/16 09:55 ASDIR STA Levothyroxine Sodium 50 mcg 07/30/16 07:00 07/31/16 06:20 Synthroid - PO 50 mcg DAILY@0700 [facility] Administration Metoprolol Tartrate 12.5 mg 07/29/16 22:00 07/30/16 21:30 Lopressor - PO Not Given BID [facility] Pantoprazole Sodium 40 mg 07/30/16 10:00 07/30/16 12:30 Protonix - PO 40 mg DAILY [facility] Administration Microbiology 07/29/16 10:15 Blood - Peripheral Venous Blood Culture - Preliminary NO GROWTH OBTAINED AFTER 24 HOURS, INCUBATION TO CONTINUE FOR 4 DAYS. 07/29/16 10:15 Blood - Peripheral Venous Blood Culture - Preliminary NO GROWTH OBTAINED AFTER 24 HOURS, INCUBATION TO CONTINUE FOR 4 DAYS. 07/24/16 12:30 Blood - Peripheral Venous Blood Culture - Final NO GROWTH AFTER 5 DAYS INCUBATION 07/24/16 12:30 Blood - Peripheral Venous Blood Culture - Final NO GROWTH AFTER 5 DAYS INCUBATION ASSESSMENT CAD Atrial fibrillation CHF HTN DM ESRD Hypotension HLD Respiratory failure acute on chronic hypoxic hypercapniec Lactic acidosis Sepitic shock secondary to multiple decubitus ulcers PLAN: #sepsic shock secondary to multiple decubiti -continue cefepime -f/u wound culture -surgery/wound care Visit type - Emergency Visit Emergency Visit: Yes ED Registration Date: 07/24/16 Care time: The patient presented to the Emergency Department on the above date and was hospitalized for further evaluation of their emergent condition. - New Patient This patient is new to me today: Yes Date on this admission: 07/31/16 - Critical Care Critical Care patient: Yes Total Critical Care Time (in minutes): 35 Critical Care Statement: The care of this patient involved high complexity decision making to prevent further life threatening deterioration of the patient 's condition and/or to evalute & treat vital organ system(s) failure or risk of failure.
[2016-07-31] MEDS: CEFEPIME 1 GM in DEXTROSE 5%-WATER - 100 ML IVPB SCH ×2 (09:54→21:37)
[2016-07-31] MEDS: PANTOPRAZOLE 40 MG TABLET (FP) PO SCH (09:55)
[2016-07-31] MEDS: METOPROLOL TARTRATE 25 MG TABLET (FP) PO SCH ×2 (09:55→21:37)
[2016-07-31] MEDS: COLLAGENASE CLOSTRIDIUM HIST. 30 GRAMS TUBE TP SCH (09:58)
[2016-07-31] MEDS: BRIMONIDINE TARTRATE 0.1% OPHTHALMIC 5 ML BOTTLE OU SCH ×2 (09:58→21:36)
--- NOTE | 2016-07-31 10:16 | PN ---
Teaching Attending Note Name of Resident: Julia Thomas ATTENDING PHYSICIAN STATEMENT I saw and evaluated the patient. I reviewed the resident's note and discussed the case with the resident. I agree with the resident's findings and plan as documented. SUBJECTIVE:Vancomycin dose and Cefepime per Dr Henderson yesterday Hypotensive getting IVF OBJECTIVE:Extensive multiple wounds LE scrotal area ASSESSMENT AND PLAN:Continue Cefepime for today Umclear if hypotension related to infection Extensive wound present an ongoing challenge re risk of infection Surgery to see wound ? lizette Ponce MD
--- NOTE | 2016-07-31 10:54 | PN ---
Progress Note, Physician Chief Complaint: BP better, HR decreased pt on Dopamine drip Amiodarone drip dc Temps better awake and alert on BIPAP - Current Medication List Current Medications: Active Medications Acetaminophen (Tylenol -) 325 mg PO Q6H PRN PRN Reason: FEVER Albumin Human (Albumin Human 25%) 12.5 gm IVPB Q30M [facility] Stop: 07/31/16 13:16 Albuterol/Ipratropium (Duoneb -) 1 amp NEB QID PRN PRN Reason: SHORTNESS OF BREATH Amiodarone HCl (Cordarone -) 400 mg PO TID [facility] Last Admin: 07/31/16 06:20 Dose: 400 mg Brimonidine Tartrate (Alphagan P 0.1% -) 1 drop OU BID [facility] Last Admin: 07/31/16 09:58 Dose: 1 drop Collagenase (Santyl -) 1 applic TP DAILY [facility] Last Admin: 07/31/16 09:58 Dose: 1 applic Heparin Sodium (Porcine) (Heparin -) 1,000 unit IVPUSH ONCE ONE Stop: 07/31/16 11:36 Dopamine HCl/Dextrose (Dopamine 400 Mg/D5w -) 250 mls @ 17.04 mls/hr IVPB TITR [facility]; 5 MCG/KG/MIN PRN Reason: Protocol Last Admin: 07/30/16 14:22 Dose: 17.04 mls/hr Cefepime HCl 1 gm/ Dextrose 100 mls @ 200 mls/hr IVPB BID [facility] Stop: 08/05/16 10:29 Last Admin: 07/31/16 09:54 Dose: 200 mls/hr Levothyroxine Sodium (Synthroid -) 50 mcg PO DAILY@0700 [facility] Last Admin: 07/31/16 06:20 Dose: 50 mcg Metoprolol Tartrate (Lopressor -) 12.5 mg PO BID [facility] Last Admin: 07/31/16 09:55 Dose: Not Given Pantoprazole Sodium (Protonix -) 40 mg PO DAILY [facility] Last Admin: 07/31/16 09:55 Dose: 40 mg - Objective Vital Signs: Vital Signs Temperature 98.3 F 07/31/16 09:09 Pulse Rate 78 07/31/16 09:09 Respiratory Rate 22 07/31/16 09:09 Blood Pressure 74/60 07/31/16 09:09 O2 Sat by Pulse Oximetry (%) 96 07/30/16 19:43 Constitutional: Yes: No Distress Cardiovascular: Yes: Regular Rate and Rhythm Respiratory: Yes: Diminished Gastrointestinal: Yes: Normal Bowel Sounds, Soft. No: Tenderness Edema: No Labs: CBC, BMP 07/31/16 08:25 07/31/16 08:25 INR, PTT INR 1.79 (0.82-1.09) H 07/24/16 12:30 Problem List - Problems (1) Congestive heart failure (CHF) Code(s): I50.9 - HEART FAILURE, UNSPECIFIED Qualifiers: Qualified Code(s): I50.22 - Chronic systolic (congestive) heart failure (2) DMII (diabetes mellitus, type 2) Code(s): E11.9 - TYPE 2 DIABETES MELLITUS WITHOUT COMPLICATIONS (3) HTN (hypertension) Code(s): I10 - ESSENTIAL (PRIMARY) HYPERTENSION Qualifiers: Qualified Code(s): I10 - Essential (primary) hypertension (4) Pressure ulcer of lower extremity, stage 1 Code(s): L89.891 - PRESSURE ULCER OF OTHER SITE, STAGE 1 (5) Sepsis Code(s): A41.9 - SEPSIS, UNSPECIFIED ORGANISM Qualifiers: Qualified Code(s): A41.9 - Sepsis, unspecified organism (6) Rapid atrial fibrillation Code(s): I48.91 - UNSPECIFIED ATRIAL FIBRILLATION (7) Functional quadriplegia Code(s): R53.2 - FUNCTIONAL QUADRIPLEGIA (8) End stage renal disease on dialysis Code(s): N18.6 - END STAGE RENAL DISEASE Z99.2 - DEPENDENCE ON RENAL DIALYSIS Assessment/Plan PLAN SEPSIS antibiotics restarted -- vanco and cefepime blood cultures negative likely due to wounds --contacted Dr Brice -wound care eval -for possible debridement-- Dr brice had seen pt yesterday HYPOTENSION baseline blood pressure is on the lower side, monitor blood pressure. better on Dopamine infusion asymptomatic, awake end-stage renal disease on dialysis HD per Renal CXR shows rt pleural effusion elevated troponins, rapid A. fib Not a candidate for anticoagulation rate control with Amiodarone CHF systolic heart failure HD per renal clinically not in respiratory distress usually it is difficult to get O2 sat reading for this pt-- ABG noted Not on AceI or ARB due to hypotension advanced directives patient is DNR BIPAP as needed ICU monitoring
--- NOTE | 2016-07-31 11:36 | EKG ---
Test Reason : Blood Pressure : / mmHG Vent. Rate : 087 BPM Atrial Rate : 097 BPM P-R Int : 000 ms QRS Dur : 122 ms QT Int : 406 ms P-R-T Axes : 000 004 213 degrees QTc Int : 488 ms ATRIAL FIBRILLATION WITH PREMATURE VENTRICULAR OR ABERRANTLY CONDUCTED COMPLEXES NON-SPECIFIC INTRA-VENTRICULAR CONDUCTION DELAY NONSPECIFIC T WAVE ABNORMALITY ABNORMAL ECG WHEN COMPARED WITH ECG OF 24-JUL-2016 11:57, T WAVE INVERSION NO LONGER EVIDENT IN ANTERIOR LEADS Confirmed by ISABELLA ZAFAR MD ([id number]) on 07/31/2016 11:36:10 AM Referred By: Confirmed By:ISABELLA ZAFAR MD
[2016-07-31 11:54] LABS: ARTERIAL BLOOD GAS BASE EXCESS 0.6 meq/l (-2-2); ARTERIAL BLOOD GAS pH 7.45 (7.35-7.45)
[2016-07-31 11:58] LABS: ALLENS TEST POSITIVE; ART PUNCT SITE LEFT RADIAL; LPM/O2% 60%; MECH. VENT. BIPAP; PT. ON O2? YES; TYPE OF O2 BIPAP; VENT RATE 18; VT/PRESS IPAP 18/EPAP 5
--- NOTE | 2016-07-31 13:27 | PN ---
Progress Note, Physician Chief Complaint: On bipap but comfortable Tele: Afib with HRs 70-80s Low bp History of Present Illness: This is a 76 year old male with known CAD, afib, chronic systolic chf, htn, dm, ckd, hld, and ckd with multiple recent admissions for infection/sepsis admitted with hypotension and tachycardia in setting of sepsis.. - Current Medication List Current Medications: Active Medications Acetaminophen (Tylenol -) 325 mg PO Q6H PRN PRN Reason: FEVER Albumin Human (Albumin Human 25%) 12.5 gm IVPB Q30M [facility] Stop: 07/31/16 13:16 Albuterol/Ipratropium (Duoneb -) 1 amp NEB QID PRN PRN Reason: SHORTNESS OF BREATH Amiodarone HCl (Cordarone -) 400 mg PO TID [facility] Last Admin: 07/31/16 06:20 Dose: 400 mg Brimonidine Tartrate (Alphagan P 0.1% -) 1 drop OU BID [facility] Last Admin: 07/31/16 09:58 Dose: 1 drop Collagenase (Santyl -) 1 applic TP DAILY [facility] Last Admin: 07/31/16 09:58 Dose: 1 applic Heparin Sodium (Porcine) (Heparin -) 1,000 unit IVPUSH ONCE ONE Stop: 07/31/16 11:36 Dopamine HCl/Dextrose (Dopamine 400 Mg/D5w -) 250 mls @ 17.04 mls/hr IVPB TITR [facility]; 5 MCG/KG/MIN PRN Reason: Protocol Last Admin: 07/30/16 14:22 Dose: 17.04 mls/hr Cefepime HCl 1 gm/ Dextrose 100 mls @ 200 mls/hr IVPB BID [facility] Stop: 08/05/16 10:29 Last Admin: 07/31/16 09:54 Dose: 200 mls/hr Levothyroxine Sodium (Synthroid -) 50 mcg PO DAILY@0700 [facility] Last Admin: 07/31/16 06:20 Dose: 50 mcg Metoprolol Tartrate (Lopressor -) 12.5 mg PO BID [facility] Last Admin: 07/31/16 09:55 Dose: Not Given Pantoprazole Sodium (Protonix -) 40 mg PO DAILY [facility] Last Admin: 07/31/16 09:55 Dose: 40 mg - Objective Vital Signs: Vital Signs Temperature 98.3 F 07/31/16 10:00 Pulse Rate 92 H 07/31/16 12:00 Respiratory Rate 18 07/31/16 12:00 Blood Pressure 81/57 07/31/16 12:00 O2 Sat by Pulse Oximetry (%) 96 07/30/16 19:43 Constitutional: Yes: No Distress Cardiovascular: Yes: S1, S2. No: Regular Rate and Rhythm Respiratory: Yes: Diminished (at the bases) Gastrointestinal: Yes: Normal Bowel Sounds, Soft Edema: No (b/l LE wounds near ankles) Labs: CBC, BMP 07/31/16 08:25 07/31/16 08:25 INR, PTT INR 1.79 (0.82-1.09) H 07/24/16 12:30 - ....Imaging Chest X-ray: Report Reviewed Problem List - Problems (1) Rapid atrial fibrillation Code(s): I48.91 - UNSPECIFIED ATRIAL FIBRILLATION Assessment/Plan This is a 76 year old male with known CAD, afib, chronic systolic chf, htn, dm, ckd, hld, and ckd with multiple recent admissions for infection/sepsis admitted with hypotension and tachycardia in setting of sepsis. 1) Sepsis/Hypotension -Blood pressure low this morning off pressors. Fluid boluses as needed. Hypotension likely due to infection. antibiotics as per primary team and pressors as needed for hemodynamic support -B/l lower extremity wounds being followed by vascular. 2) Afib Ventricular rates controlled today. No av higinio blockers as BP would not tolerate. Currently on amiodarone and will continue and re-evaluate this medication in near-future. AC is currently on hold. 3) CHF not overloaded on exam No dyllan/arb or bblocker due to hypotension. IVF's as needed for hypotension along with pressures if needed.
--- NOTE | 2016-07-31 14:11 | PN ---
Progress Note (short form) - Note Progress Note: Vascular Surgery- Dr. Batres Patient seen and examined for worsening lower extremity wounds. On BiPAP and dopamine gtt. Last Vital Signs Temp Pulse Resp BP Pulse Ox 98.3 F 92 H 18 81/57 96 07/31/16 10:00 07/31/16 12:00 07/31/16 12:00 07/31/16 12:00 07/30/16 19:43 CBC, BMP 07/31/16 08:25 07/31/16 08:25 Exam: Gen: NAD LE: bilateral LE with loose circumferential eschar over moist fibrinous tissue with purulence and with tendon exposed Sacrum/scrotum: stage two sacral ulcer, stage two ulcer scrotal ulcer, clean A/P Patient discussed with Dr. Batres Plan for bilat. LE debridement in OR tomorrow NPO after midnight Clearance/Optimization
--- NOTE | 2016-07-31 14:27 | PN ---
Teaching Attending Note Name of Resident: Irvin Harden ATTENDING PHYSICIAN STATEMENT I saw and evaluated the patient. I reviewed the resident's note and discussed the case with the resident. I agree with the resident's findings and plan as documented. SUBJECTIVE: Pt seen and examined in the ICU. Remains on BiPAP and on dopamine gtt. No fevers recorded but with purulent drainage from ulcers. OBJECTIVE: Last Vital Signs Temp Pulse Resp BP Pulse Ox 98.3 F 92 H 18 81/57 96 07/31/16 10:00 07/31/16 12:00 07/31/16 12:00 07/31/16 12:00 07/30/16 19:43 Intake & Output 07/28/16 07/29/16 07/30/16 07/31/16 23:59 23:59 23:59 23:59 Intake Total 50 557 815.0 159.2 Output Total 50 0 0 Balance 50 507 815.0 159.2 Weight 199 lb 12.8 oz 200 lb 5.76 oz 191 lb 9.6 oz 190 lb 1 oz Gen: mildly tachypneic on BiPAP Heart: RRR Lung: scattered rhonchi Abd: soft, nontender Ext: no edema, draining ulcers CBC, BMP 07/31/16 08:25 07/31/16 08:25 Active Medications Acetaminophen (Tylenol -) 325 mg PO Q6H PRN PRN Reason: FEVER Albumin Human (Albumin Human 25%) 12.5 gm IVPB Q30M [facility] Stop: 07/31/16 16:31 Albuterol/Ipratropium (Duoneb -) 1 amp NEB QID PRN PRN Reason: SHORTNESS OF BREATH Amiodarone HCl (Cordarone -) 400 mg PO TID [facility] Last Admin: 07/31/16 13:45 Dose: 400 mg Brimonidine Tartrate (Alphagan P 0.1% -) 1 drop OU BID [facility] Last Admin: 07/31/16 09:58 Dose: 1 drop Collagenase (Santyl -) 1 applic TP DAILY [facility] Last Admin: 07/31/16 09:58 Dose: 1 applic Heparin Sodium (Porcine) (Heparin -) 1,000 unit IVPUSH ONCE ONE Stop: 07/31/16 14:31 Dopamine HCl/Dextrose (Dopamine 400 Mg/D5w -) 250 mls @ 17.04 mls/hr IVPB TITR [facility]; 5 MCG/KG/MIN PRN Reason: Protocol Last Admin: 07/30/16 14:22 Dose: 17.04 mls/hr Cefepime HCl 1 gm/ Dextrose 100 mls @ 200 mls/hr IVPB BID [facility] Stop: 08/05/16 10:29 Last Admin: 07/31/16 09:54 Dose: 200 mls/hr Levothyroxine Sodium (Synthroid -) 50 mcg PO DAILY@0700 [facility] Last Admin: 07/31/16 06:20 Dose: 50 mcg Metoprolol Tartrate (Lopressor -) 12.5 mg PO BID [facility] Last Admin: 07/31/16 09:55 Dose: Not Given Pantoprazole Sodium (Protonix -) 40 mg PO DAILY [facility] Last Admin: 07/31/16 09:55 Dose: 40 mg ASSESSMENT AND PLAN: Acute on Chronic Hypoxic and Hypercapneic Respiratory Failure Sacral Decubitus Ulcer Infection Septic Shock Lactic Acidosis ESRD on HD Severe LV Systolic Dysfunction Atrial Fibrillation CAD - antibiotics per ID - f/u cultures - for debridement in OR tomorrow - IVF boluses as needed - taper dopamine gtt to maintain MAP >50 - BiPAP to assist in work of breathing and acute hypercapnea - can attempt ventimask - O2 to keep SpO2 >90% - trend lactate - HD per renal - aspiration precautions - wound care - DVT prophylaxis - continue discussions regarding goals of care as pt chronically ill with prolonged multiple hospitalizations critical care time spent in reviewing chart, evaluating patient and formulating plan 38 min
[2016-07-31] MEDS ORDERED: HEPARIN NA (PORCINE) 5,000 UNITS/ML 1ML VIAL IVPUSH ONE (14:30)
[2016-07-31] MEDS: ALBUMIN HUMAN 25% 12.5 GM/50 ML VIAL IVPB SCH ×4 (15:00→16:30)
--- NOTE | 2016-07-31 16:30 | PN ---
Progress Note, Physician History of Present Illness: Pt seen and examined at bedside. He is awake and appears comfortable. He is currently getting HD. - Current Medication List Current Medications: Active Medications Acetaminophen (Tylenol -) 325 mg PO Q6H PRN PRN Reason: FEVER Albumin Human (Albumin Human 25%) 12.5 gm IVPB Q30M [facility] Stop: 07/31/16 16:31 Albuterol/Ipratropium (Duoneb -) 1 amp NEB QID PRN PRN Reason: SHORTNESS OF BREATH Amiodarone HCl (Cordarone -) 400 mg PO TID [facility] Last Admin: 07/31/16 13:45 Dose: 400 mg Brimonidine Tartrate (Alphagan P 0.1% -) 1 drop OU BID [facility] Last Admin: 07/31/16 09:58 Dose: 1 drop Collagenase (Santyl -) 1 applic TP DAILY [facility] Last Admin: 07/31/16 09:58 Dose: 1 applic Dopamine HCl/Dextrose (Dopamine 400 Mg/D5w -) 250 mls @ 17.04 mls/hr IVPB TITR [facility]; 5 MCG/KG/MIN PRN Reason: Protocol Last Admin: 07/30/16 14:22 Dose: 17.04 mls/hr Cefepime HCl 1 gm/ Dextrose 100 mls @ 200 mls/hr IVPB BID [facility] Stop: 08/05/16 10:29 Last Admin: 07/31/16 09:54 Dose: 200 mls/hr Levothyroxine Sodium (Synthroid -) 50 mcg PO DAILY@0700 [facility] Last Admin: 07/31/16 06:20 Dose: 50 mcg Metoprolol Tartrate (Lopressor -) 12.5 mg PO BID [facility] Last Admin: 07/31/16 09:55 Dose: Not Given Pantoprazole Sodium (Protonix -) 40 mg PO DAILY [facility] Last Admin: 07/31/16 09:55 Dose: 40 mg - Objective Vital Signs: Vital Signs Temperature 98 F 07/31/16 15:16 Pulse Rate 104 H 07/31/16 15:16 Respiratory Rate 18 07/31/16 15:16 Blood Pressure 97/59 07/31/16 15:16 O2 Sat by Pulse Oximetry (%) 89 L 07/31/16 15:11 Constitutional: Yes: Calm Eyes: Yes: Conjunctiva Clear HENT: Yes: Atraumatic Neck: Yes: Supple Cardiovascular: Yes: S1, S2 Respiratory: Yes: On Nasal O2 Gastrointestinal: Yes: Soft Genitourinary: Yes: Incontinence Musculoskeletal: Yes: Muscle Weakness Edema: No Neurological: Yes: Oriented Labs: CBC, BMP 07/31/16 08:25 07/31/16 08:25 INR, PTT INR 1.79 (0.82-1.09) H 07/24/16 12:30 Problem List - Problems (1) End stage renal disease on dialysis Code(s): N18.6 - END STAGE RENAL DISEASE Z99.2 - DEPENDENCE ON RENAL DIALYSIS (2) Hypotension Code(s): I95.9 - HYPOTENSION, UNSPECIFIED Qualifiers: Qualified Code(s): I95.9 - Hypotension, unspecified (3) Anemia Code(s): D64.9 - ANEMIA, UNSPECIFIED Qualifiers: Qualified Code(s): N18.9 - Chronic kidney disease, unspecified; D63.1 - Anemia in chronic kidney disease Assessment/Plan Current Medications Generic Name Dose Route Start Last Admin Trade Name Freq PRN Reason Stop Dose Admin Acetaminophen 325 mg 07/29/16 11:06 Tylenol - PO Q6H PRN FEVER Albumin Human 12.5 gm 07/31/16 15:00 Albumin Human 25% IVPB 07/31/16 16:31 Q30M [facility] Albuterol/Ipratropium 1 amp 07/29/16 11:06 Duoneb - NEB QID PRN SHORTNESS OF BREATH Amiodarone HCl 400 mg 07/29/16 14:00 07/31/16 13:45 Cordarone - PO 400 mg TID [facility] Administration Brimonidine Tartrate 1 drop 07/29/16 22:00 07/31/16 09:58 Alphagan P 0.1% - OU 1 drop BID [facility] Administration Collagenase 1 applic 07/30/16 10:00 07/31/16 09:58 Santyl - TP 1 applic DAILY [facility] Administration Dopamine HCl/Dextrose 250 mls @ 17.04 mls/hr 07/29/16 10:45 07/30/16 14:22 Dopamine 400 Mg/D5w - IVPB 17.04 mls/hr TITR [facility] Administration Protocol 5 MCG/KG/MIN Cefepime HCl 1 gm/ Dextrose 100 mls @ 200 mls/hr 07/30/16 22:00 07/31/16 09:54 IVPB 08/05/16 10:29 200 mls/hr BID [facility] Administration Levothyroxine Sodium 50 mcg 07/30/16 07:00 07/31/16 06:20 Synthroid - PO 50 mcg DAILY@0700 [facility] Administration Metoprolol Tartrate 12.5 mg 07/29/16 22:00 07/31/16 09:55 Lopressor - PO Not Given BID [facility] Pantoprazole Sodium 40 mg 07/30/16 10:00 07/31/16 09:55 Protonix - PO 40 mg DAILY [facility] Administration Impression 1. ESRD on HD 2. hypotension 3. cellulitis/abscess of back 4. CHF 5. hypothyroidism 6. hyperlipidemia 7. COPD 8. a-fib Plan - pt is getting HD - will attempt to UF volume - cont oxygen and monitor pulse ox - cont wound care to legs - will need fistula once more stable - one to one feeds - will follow
[2016-07-31] MEDS: DOPAMINE 400 MG/D5W - 250 ML IVPB SCH (17:41)
[2016-08-01 06:19] LABS: BASOPHIL 0.7 % (0-2.0); EOSINOPHIL 1.5 % (0-4.5); MCH 27.8 pg (25.7-33.7); MCHC 30.3 g/dl (32.0-35.9); MEAN CELL VOLUME 91.7 fl (80-96); NEUTROPHILS 82.6 % (42.8-82.8); PLATELET COUNT 85 K/MM3 (134-434); RDW 21.4 % (11.9-15.9); WHITE BLOOD COUNT 11.4 K/mm3 (4.0-10.0)
[2016-08-01] MEDS: LEVOTHYROXINE NA 50 MCG TABLET (FP) PO SCH (06:21)
[2016-08-01] MEDS: AMIODARONE HCL 200 MG TABLET (FP) PO SCH ×3 (06:21→21:37)
[2016-08-01 07:01] LABS: ALBUMIN 2.3 g/dl (3.4-5.0); CALCIUM 8.4 mg/dL (8.5-10.1)
[2016-08-01 07:05] LABS: BILIRUBIN,TOTAL 1.5 mg/dL (0.2-1.0); CREATININE 2.6 mg/dL (0.7-1.3); TOT PROT 5.6 g/dl (6.4-8.2)
--- NOTE | 2016-08-01 07:34 | PN ---
Progress Note, Physician Chief Complaint: ID Intubated Vancomycin and Cefepime - Current Medication List Current Medications: Active Medications Acetaminophen (Tylenol -) 325 mg PO Q6H PRN PRN Reason: FEVER Albuterol/Ipratropium (Duoneb -) 1 amp NEB QID PRN PRN Reason: SHORTNESS OF BREATH Amiodarone HCl (Cordarone -) 400 mg PO TID [facility] Last Admin: 08/01/16 06:21 Dose: 400 mg Brimonidine Tartrate (Alphagan P 0.1% -) 1 drop OU BID [facility] Last Admin: 07/31/16 21:36 Dose: 1 drop Collagenase (Santyl -) 1 applic TP DAILY [facility] Last Admin: 07/31/16 09:58 Dose: 1 applic Dopamine HCl/Dextrose (Dopamine 400 Mg/D5w -) 250 mls @ 17.04 mls/hr IVPB TITR [facility]; 5 MCG/KG/MIN PRN Reason: Protocol Last Admin: 07/31/16 17:41 Dose: 8.517 mls/hr Cefepime HCl 1 gm/ Dextrose 100 mls @ 200 mls/hr IVPB BID [facility] Stop: 08/05/16 10:29 Last Admin: 07/31/16 21:37 Dose: 200 mls/hr Levothyroxine Sodium (Synthroid -) 50 mcg PO DAILY@0700 [facility] Last Admin: 08/01/16 06:21 Dose: 50 mcg Metoprolol Tartrate (Lopressor -) 12.5 mg PO BID [facility] Last Admin: 07/31/16 21:37 Dose: Not Given Pantoprazole Sodium (Protonix -) 40 mg PO DAILY [facility] Last Admin: 07/31/16 09:55 Dose: 40 mg - Objective Vital Signs: Vital Signs Temperature 97.9 F 08/01/16 06:00 Pulse Rate 113 H 08/01/16 06:00 Respiratory Rate 20 08/01/16 06:00 Blood Pressure 98/70 08/01/16 06:00 O2 Sat by Pulse Oximetry (%) 94 L 08/01/16 03:05 Cardiovascular: Yes: Regular Rate and Rhythm, S1, S2 Respiratory: Yes: WNL, Regular, CTA Bilaterally Gastrointestinal: Yes: Soft. No: Tenderness Extremities: Yes: Other (Deep LE wounds Sacral wound) Labs: CBC, BMP 08/01/16 05:20 INR, PTT INR 1.79 (0.82-1.09) H 07/24/16 12:30 Assessment/Plan Microbiology 07/24/16 12:30 Blood - Peripheral Venous Blood Culture - Final NO GROWTH AFTER 5 DAYS INCUBATION 07/24/16 12:30 Blood - Peripheral Venous Blood Culture - Final NO GROWTH AFTER 5 DAYS INCUBATION 07/29/16 10:15 Blood - Peripheral Venous Blood Culture - Preliminary NO GROWTH OBTAINED AFTER 48 HOURS, INCUBATION TO CONTINUE FOR 3 DAYS. 07/29/16 10:15 Blood - Peripheral Venous Blood Culture - Preliminary NO GROWTH OBTAINED AFTER 48 HOURS, INCUBATION TO CONTINUE FOR 3 DAYS. 07/29/16 10:15 Blood - Peripheral Venous Blood Culture - Preliminary NO GROWTH OBTAINED AFTER 24 HOURS, INCUBATION TO CONTINUE FOR 4 DAYS. 07/29/16 10:15 Blood - Peripheral Venous Blood Culture - Preliminary NO GROWTH OBTAINED AFTER 24 HOURS, INCUBATION TO CONTINUE FOR 4 DAYS. Laboratory Tests 07/31/16 07/31/16 07/31/16 08:25 11:45 21:00 WBC 13.1 H Hct 30.4 L Plt Count 89 L D ABG pH 7.45 ABG pCO2 at Pt Temp 35.0 ABG pO2 at Pt Temp 160.0 H* Lactic Acid 2.592 H* 08/01/16 05:20 WBC 11.4 H Hct 30.2 L Plt Count 85 L ABG pH ABG pCO2 at Pt Temp ABG pO2 at Pt Temp Lactic Acid Assessment Respiratory failure Acute renal failure COPD Obesity Deep lower ext tubes exposed tendon Sacral wounds Plan Going to stop antibiotics Debridement wounds Kris MOSQUERA
[2016-08-01 07:36] LABS: COCKROFT - GAULT 29.48
[2016-08-01 07:43] LABS: ARTERIAL BLD GAS O2 SATURATION 96.8 % (90-98.9); ARTERIAL BLOOD GAS BASE EXCESS 2.1 meq/l (-2-2); ARTERIAL BLOOD GAS HCO3 27.5 meq/L (22-26); ARTERIAL BLOOD GAS PO2 88.4 mmHg (70-100); ARTERIAL BLOOD GAS pH 7.35 (7.35-7.45)
[2016-08-01 07:44] LABS: ALLENS TEST POSITIVE; ART PUNCT SITE RIGHT BRACHIAL; LPM/O2% 40%; PT. ON O2? YES; TYPE OF O2 VENTIMASK
--- NOTE | 2016-08-01 07:45 | PN ---
Addendum entered and electronically signed by Irvin Harden RES 08/01/16 16:57: Debridement scheduled for Thursday, patient understands planned course of treatment and consents to plan. Will medically optimize prior to procedure. Original Note: Physical Exam: SUBJECTIVE: Patient seen and examined at bedside this AM in ICU. AAO and at usual mental status baseline. Afebrile overnight with stable BP on minimal dopamine dosing. For debridement today, understands and agrees with proposed course of treatment. OBJECTIVE: Vital Signs Period Temp Pulse Resp BP Sys/Hubbard Pulse Ox Last 24 Hr 97.9 F-98.3 F 75-113 18-22 74-116/47-97 89-94 GENERAL: Awake, alert, and fully oriented, in no acute distress. Resting comfortably in bed on bipap. HEENT: Atraumatic, EOMI, PERRLA, No lymphadenopathy, dry membranes LUNGS: mild bibasilar crackles noted, no wheezing or accessory muscle use HEART: irregular, tachycardic, S1 and S2 without murmur, rub or gallop. ABDOMEN: Soft, nontender, not distended, normoactive bowel sounds EXTREMITIES: 1+ pulses, warm, well-perfused. No calf tenderness. +1 bilateral pitting edema in lower extremity NEUROLOGICAL: Cranial nerves II-XII intact. Normal speech. Gait not observed. PSYCHIATRIC: Cooperative. Good eye contact. Appropriate mood and affect. Able to answer questions and make requests. SKIN: multiple stage III decubitus to buttocks, shins and scrotum Laboratory Results - last 24 hr 07/31/16 07/31/16 07/31/16 08:25 08:25 11:45 WBC 13.1 H RBC 3.27 L Hgb 9.0 L Hct 30.4 L MCV 93.1 MCHC 29.7 L RDW 21.1 H Plt Count 89 L D MPV 10.2 Neutrophils % 78.7 Lymphocytes % 8.9 Monocytes % 11.0 H Eosinophils % 1.0 Basophils % 0.4 Puncture Site Left radial ABG pH 7.45 ABG pCO2 at Pt Temp 35.0 ABG pO2 at Pt Temp 160.0 H* ABG HCO3 24.0 ABG O2 Sat (Measured) 100.0 H* ABG O2 Content 12.2 L ABG Base Excess 0.6 Frankie Test Positive O2 Delivery Device Bipap Oxygen Flow Rate 60% Vent Mode S/t Vent Rate 18 Mechanical Rate Bipap PEEP 0.0 Pressure Support Vent Ipap 18/epap 5 Sodium 144 Potassium 3.9 Chloride 104 Carbon Dioxide 27 Anion Gap 13 BUN 39 H D Creatinine 4.0 H D Creat Clearance w eGFR 14.67 Random Glucose 79 Lactic Acid Calcium 8.7 Total Bilirubin 1.4 H AST 35 D ALT 21 D Alkaline Phosphatase 82 Total Protein 5.4 L Albumin 2.0 L 07/31/16 08/01/16 08/01/16 21:00 05:20 05:20 WBC 11.4 H RBC 3.29 L Hgb 9.2 L Hct 30.2 L MCV 91.7 MCHC 30.3 L RDW 21.4 H Plt Count 85 L MPV 10.0 Neutrophils % 82.6 Lymphocytes % 5.8 L D Monocytes % 9.4 Eosinophils % 1.5 Basophils % 0.7 Puncture Site ABG pH ABG pCO2 at Pt Temp ABG pO2 at Pt Temp ABG HCO3 ABG O2 Sat (Measured) ABG O2 Content ABG Base Excess Frankie Test O2 Delivery Device Oxygen Flow Rate Vent Mode Vent Rate Mechanical Rate PEEP Pressure Support Vent Sodium 146 H Potassium 3.3 L Chloride 104 Carbon Dioxide 28 Anion Gap 14 BUN 20 H D Creatinine 2.6 H D Creat Clearance w eGFR 24.12 Random Glucose 95 D Lactic Acid 2.592 H* Calcium 8.4 L Total Bilirubin 1.5 H AST 66 H D ALT 34 D Alkaline Phosphatase 83 Total Protein 5.6 L Albumin 2.3 L Active Medications Generic Name Dose Route Start Last Admin Trade Name Freq PRN Reason Stop Dose Admin Acetaminophen 325 mg 07/29/16 11:06 Tylenol - PO Q6H PRN FEVER Albuterol/Ipratropium 1 amp 07/29/16 11:06 Duoneb - NEB QID PRN SHORTNESS OF BREATH Amiodarone HCl 400 mg 07/29/16 14:00 08/01/16 06:21 Cordarone - PO 400 mg TID [facility] Administration Brimonidine Tartrate 1 drop 07/29/16 22:00 07/31/16 21:36 Alphagan P 0.1% - OU 1 drop BID [facility] Administration Collagenase 1 applic 07/30/16 10:00 07/31/16 09:58 Santyl - TP 1 applic DAILY [facility] Administration Dopamine HCl/Dextrose 250 mls @ 17.04 mls/hr 07/29/16 10:45 07/31/16 17:41 Dopamine 400 Mg/D5w - IVPB 8.517 mls/hr TITR [facility] Administration Protocol 5 MCG/KG/MIN Levothyroxine Sodium 50 mcg 07/30/16 07:00 08/01/16 06:21 Synthroid - PO 50 mcg DAILY@0700 [facility] Administration Metoprolol Tartrate 12.5 mg 07/29/16 22:00 08/01/16 09:30 Lopressor - PO Not Given BID [facility] Pantoprazole Sodium 40 mg 07/30/16 10:00 07/31/16 09:55 Protonix - PO 40 mg DAILY [facility] Administration ASSESSMENT/PLAN: 76 year old male with PMH of A-Fib, CAD, Systolic CHF, HTN/HLD, COPD, PUD, ESRD on HD, multiple lower back ulcers, hypothyroidism & DM who is sent to ICU s/p rapid response for hypotension. #Septic Shock, likely secondary to multiple decubitus ulcers -Borderline low BP seems to be his baseline, on Minimal dose of Dopamine for BP elevation (2.5mcg) -Wound debridement later today, as per vascular surgery -antibiotics discontinued today, as per ID -collegenase administered to ulcers -wound culture ordered & pending -blood cultures (-) -wound care consult appreciated -ID Consult appreciated #ESRD on HD -received HD yesterday -avoid nephrotoxic meds -Nephrology consult appreciated #Atrial Fibrillation/CAD Hx/CHF Hx -Not a candidate for AC -on Amiodarone 400mg PO TID, can to switch to ocne daily tomorrow, as per ID -Lopressor 12.5mg BID, being held at present due to borderline hypotension -cardiology consult appreciated #COPD -Duonebs QIDR -Albuterol PRN -Saturating well on NC @4L presently -BiPap at night and as needed #Hypothyroidism -continue home meds: Synthroid 50mcg Prophylaxis -SCD's -PPI -cautious with IVF administration -monitor electrolytes -Dysphasia Pureed diet Dispo: Palliative Care consulted. Patient is DNR. Niece is HCP. Patient is estranged from his & states that he does not want her to visit him. informed while attempting to visit. Visit type - Emergency Visit Emergency Visit: Yes ED Registration Date: 07/24/16 Care time: The patient presented to the Emergency Department on the above date and was hospitalized for further evaluation of their emergent condition. - New Patient This patient is new to me today: No - Critical Care Critical Care patient: Yes Total Critical Care Time (in minutes): 40 Critical Care Statement: The care of this patient involved high complexity decision making to prevent further life threatening deterioration of the patient 's condition and/or to evalute & treat vital organ system(s) failure or risk of failure.
[2016-08-01] MEDS ORDERED: POTASSIUM CHLORIDE ORAL LIQUID 20 MEQ/15 ML PO ONE (07:48)
--- NOTE | 2016-08-01 07:49 | PN ---
Progress Note (short form) - Note Progress Note: SUBJECTIVE: Patient seen and examined in the ICU. Chart reviewed. Comfortable. All follow ups noted. Remains on Dopamine. OBJECTIVE: Vital Signs 08/01/16 08/01/16 08/01/16 03:05 04:05 06:00 Temperature 97.9 F Pulse Rate 102 H 113 H Respiratory 20 20 Rate Blood Pressure 110/90 98/70 O2 Sat by Pulse 94 L Oximetry (%) Intake & Output 07/31/16 08/01/16 08/01/16 23:59 07:59 15:59 Intake Total 584 202 Output Total 0 Balance 584 202 Weight 86.239 kg Intake: IV 534 102 Dopamine 400 mg/D5w - 250 34 102 ml @ 5 MCG/KG/MIN 17.04 mls/hr IVPB TITR [facility] Rx#: [id number] Normal Saline - 500 ml @ 500 500 mls/hr IV ASDIR STA Rx#:[id number] IVPB 100 Oral 50 0 Output: Urine 0 Void 0 Other: Voiding Method Indwelling Catheter Bowel Movement No Weight Measurement Method Built in [facility] Active Medications Acetaminophen (Tylenol -) 325 mg PO Q6H PRN PRN Reason: FEVER Albuterol/Ipratropium (Duoneb -) 1 amp NEB QID PRN PRN Reason: SHORTNESS OF BREATH Amiodarone HCl (Cordarone -) 400 mg PO TID [facility] Last Admin: 08/01/16 06:21 Dose: 400 mg Brimonidine Tartrate (Alphagan P 0.1% -) 1 drop OU BID [facility] Last Admin: 07/31/16 21:36 Dose: 1 drop Collagenase (Santyl -) 1 applic TP DAILY [facility] Last Admin: 07/31/16 09:58 Dose: 1 applic Dopamine HCl/Dextrose (Dopamine 400 Mg/D5w -) 250 mls @ 17.04 mls/hr IVPB TITR [facility]; 5 MCG/KG/MIN PRN Reason: Protocol Last Admin: 07/31/16 17:41 Dose: 8.517 mls/hr Levothyroxine Sodium (Synthroid -) 50 mcg PO DAILY@0700 [facility] Last Admin: 08/01/16 06:21 Dose: 50 mcg Metoprolol Tartrate (Lopressor -) 12.5 mg PO BID [facility] Last Admin: 08/01/16 09:30 Dose: Not Given Pantoprazole Sodium (Protonix -) 40 mg PO DAILY [facility] Last Admin: 07/31/16 09:55 Dose: 40 mg CBC, BMP 08/01/16 05:20 08/01/16 05:20 Laboratory Results - last 24 hr 07/31/16 07/31/16 08/01/16 11:45 21:00 05:20 WBC 11.4 H RBC 3.29 L Hgb 9.2 L Hct 30.2 L MCV 91.7 MCHC 30.3 L RDW 21.4 H Plt Count 85 L MPV 10.0 Neutrophils % 82.6 Lymphocytes % 5.8 L D Monocytes % 9.4 Eosinophils % 1.5 Basophils % 0.7 Puncture Site Left radial ABG pH 7.45 ABG pCO2 at Pt Temp 35.0 ABG pO2 at Pt Temp 160.0 H* ABG HCO3 24.0 ABG O2 Sat (Measured) 100.0 H* ABG O2 Content 12.2 L ABG Base Excess 0.6 Frankie Test Positive O2 Delivery Device Bipap Oxygen Flow Rate 60% Vent Mode S/t Vent Rate 18 Mechanical Rate Bipap PEEP 0.0 Pressure Support Vent Ipap 18/epap 5 Sodium Potassium Chloride Carbon Dioxide Anion Gap BUN Creatinine Creat Clearance w eGFR Random Glucose Lactic Acid 2.592 H* Calcium Total Bilirubin AST ALT Alkaline Phosphatase Total Protein Albumin 08/01/16 08/01/16 05:20 07:30 WBC RBC Hgb Hct MCV MCHC RDW Plt Count MPV Neutrophils % Lymphocytes % Monocytes % Eosinophils % Basophils % Puncture Site Right brachial ABG pH 7.35 ABG pCO2 at Pt Temp 50.7 H D ABG pO2 at Pt Temp 88.4 D ABG HCO3 27.5 H ABG O2 Sat (Measured) 96.8 ABG O2 Content 12.6 L ABG Base Excess 2.1 H Frankie Test Positive O2 Delivery Device Ventimask Oxygen Flow Rate 40% Vent Mode Vent Rate Mechanical Rate PEEP 0.0 Pressure Support Vent Sodium 146 H Potassium 3.3 L Chloride 104 Carbon Dioxide 28 Anion Gap 14 BUN 20 H D Creatinine 2.6 H D Creat Clearance w eGFR 24.12 Random Glucose 95 D Lactic Acid Calcium 8.4 L Total Bilirubin 1.5 H AST 66 H D ALT 34 D Alkaline Phosphatase 83 Total Protein 5.6 L Albumin 2.3 L Microbiology 07/29/16 10:15 Blood Culture - Preliminary Blood - Peripheral Venous NO GROWTH OBTAINED AFTER 48 HOURS, INCUBATION TO CONTINUE FOR 3 DAYS. 07/29/16 10:15 Blood Culture - Preliminary Blood - Peripheral Venous NO GROWTH OBTAINED AFTER 48 HOURS, INCUBATION TO CONTINUE FOR 3 DAYS. PHYSICAL EXAMINATION: Constitutional: Yes: Awake. Alert but weak. Cardiovascular: Yes: Regular Rate and Rhythm Respiratory: Yes: Diminished at bases. Gastrointestinal: Yes: Normal Bowel Sounds, Soft. No: Tenderness Edema: No-- dressing present on both legs. Problem List - Problems (1) Congestive heart failure (CHF) Code(s): I50.9 - HEART FAILURE, UNSPECIFIED Qualifiers: Congestive heart failure type: systolic Congestive heart failure chronicity: chronic Qualified Code(s): I50.22 - Chronic systolic (congestive ) heart failure (2) DMII (diabetes mellitus, type 2) Code(s): E11.9 - TYPE 2 DIABETES MELLITUS WITHOUT COMPLICATIONS Qualifiers: Diabetes mellitus complication detail: with other kidney complication (3) HTN (hypertension) Code(s): I10 - ESSENTIAL (PRIMARY) HYPERTENSION Qualifiers: Hypertension type: essential hypertension Qualified Code(s): I10 - Essential (primary) hypertension (4) Pressure ulcer of lower extremity, stage 1 Code(s): L89.891 - PRESSURE ULCER OF OTHER SITE, STAGE 1 (5) Sepsis Code(s): A41.9 - SEPSIS, UNSPECIFIED ORGANISM Qualifiers: Sepsis type: sepsis due to unspecified organism Qualified Code(s): A41.9 - Sepsis, unspecified organism (6) Rapid atrial fibrillation Code(s): I48.91 - UNSPECIFIED ATRIAL FIBRILLATION (7) Functional quadriplegia Code(s): R53.2 - FUNCTIONAL QUADRIPLEGIA (8) End stage renal disease on dialysis Code(s): N18.6 - END STAGE RENAL DISEASE Z99.2 - DEPENDENCE ON RENAL DIALYSIS ASSESSMENT & PLAN: - Continue present care. - Off Antibiotics. - For OR today for debridement. - Condition poor. - Patient is DNR. - Will follow. - Discussed with nursing staff. - CC Time 25 minutes Documentation prepared by Joelle Mcdowell, acting as a medical massage therapist for Oziel Casey MD.
--- NOTE | 2016-08-01 08:40 | PN ---
Progress Note, Physician Chief Complaint: On dopamine for hemodynamic support HR mildly elevated on tele History of Present Illness: This is a 76 year old male with known CAD, afib, chronic systolic chf, htn, dm, ckd, hld, and ckd with multiple recent admissions for infection/sepsis admitted with hypotension and tachycardia in setting of sepsis. - Current Medication List Current Medications: Active Medications Acetaminophen (Tylenol -) 325 mg PO Q6H PRN PRN Reason: FEVER Albuterol/Ipratropium (Duoneb -) 1 amp NEB QID PRN PRN Reason: SHORTNESS OF BREATH Amiodarone HCl (Cordarone -) 400 mg PO TID [facility] Last Admin: 08/01/16 06:21 Dose: 400 mg Brimonidine Tartrate (Alphagan P 0.1% -) 1 drop OU BID [facility] Last Admin: 07/31/16 21:36 Dose: 1 drop Collagenase (Santyl -) 1 applic TP DAILY [facility] Last Admin: 07/31/16 09:58 Dose: 1 applic Dopamine HCl/Dextrose (Dopamine 400 Mg/D5w -) 250 mls @ 17.04 mls/hr IVPB TITR [facility]; 5 MCG/KG/MIN PRN Reason: Protocol Last Admin: 07/31/16 17:41 Dose: 8.517 mls/hr Levothyroxine Sodium (Synthroid -) 50 mcg PO DAILY@0700 [facility] Last Admin: 08/01/16 06:21 Dose: 50 mcg Metoprolol Tartrate (Lopressor -) 12.5 mg PO BID [facility] Last Admin: 07/31/16 21:37 Dose: Not Given Pantoprazole Sodium (Protonix -) 40 mg PO DAILY [facility] Last Admin: 07/31/16 09:55 Dose: 40 mg Potassium Chloride (Potassium Chloride Oral Liquid) 40 meq PO ONCE ONE Stop: 08/01/16 07:49 - Objective Vital Signs: Vital Signs Temperature 97.9 F 08/01/16 06:00 Pulse Rate 113 H 08/01/16 06:00 Respiratory Rate 20 08/01/16 06:00 Blood Pressure 98/70 08/01/16 06:00 O2 Sat by Pulse Oximetry (%) 94 L 08/01/16 03:05 Constitutional: Yes: Mild Distress Neck: Yes: Supple Cardiovascular: Yes: Tachycardia, Pulse Irregular, S1, S2 Respiratory: Yes: Diminished (at bases b/l) Gastrointestinal: Yes: Normal Bowel Sounds, Soft Edema: No Labs: CBC, BMP 08/01/16 05:20 08/01/16 05:20 INR, PTT INR 1.79 (0.82-1.09) H 07/24/16 12:30 Problem List - Problems (1) Rapid atrial fibrillation Code(s): I48.91 - UNSPECIFIED ATRIAL FIBRILLATION Assessment/Plan This is a 76 year old male with known CAD, afib, chronic systolic chf, htn, dm, ckd, hld, and ckd with multiple recent admissions for infection/sepsis admitted with hypotension and tachycardia in setting of sepsis. 1) Sepsis/Hypotension -Hypotension due to infection. On dopamine for blood pressure support. IVFluid boluses antibiotics as per primary team and pressors as needed for hemodynamic support -B/l lower extremity wounds being followed by vascular. 2) Afib Ventricular rates controlled today. No av higinio blockers as BP would not tolerate. Change amiodarone to 400mg daily tomorrow. AC is currently on hold. Replete Potassium 3) CHF not overloaded on exam No dyllan/arb or bblocker due to hypotension. IVF's as needed for hypotension along with pressures if needed.
[2016-08-01] MEDS: METOPROLOL TARTRATE 25 MG TABLET (FP) PO SCH ×2 (09:30→21:38)
[2016-08-01] MEDS: BRIMONIDINE TARTRATE 0.1% OPHTHALMIC 5 ML BOTTLE OU SCH ×2 (10:00→21:38)
[2016-08-01] MEDS: PANTOPRAZOLE 40 MG TABLET (FP) PO SCH (10:35)
[2016-08-01] MEDS: COLLAGENASE CLOSTRIDIUM HIST. 30 GRAMS TUBE TP SCH (10:35)
[2016-08-01] MEDS: DOPAMINE 400 MG/D5W - 250 ML IVPB SCH (11:00)
--- NOTE | 2016-08-01 12:20 | PN ---
Teaching Attending Note Name of Resident: Irvin Harden ATTENDING PHYSICIAN STATEMENT I saw and evaluated the patient. I reviewed the resident's note and discussed the case with the resident. I agree with the resident's findings and plan as documented. SUBJECTIVE: Patient seen and examined in the ICU. NIPPV overnight and now currently on VM O2. Remains on Dopamine for hemodynamic support. For debridement today. Intake & Output 07/29/16 07/30/16 07/31/16 08/01/16 23:59 23:59 23:59 23:59 Intake Total 557 815.0 961.2 202 Output Total 50 0 0 0 Balance 507 815.0 961.2 202 Weight 200 lb 5.76 oz 191 lb 9.6 oz 190 lb 1 oz 190 lb 2 oz Last Vital Signs Temp Pulse Resp BP Pulse Ox 96.1 F L 110 H 18 89/68 90 L 08/01/16 10:00 08/01/16 10:00 08/01/16 10:00 08/01/16 10:00 08/01/16 09:00 Active Medications Acetaminophen (Tylenol -) 325 mg PO Q6H PRN PRN Reason: FEVER Albuterol/Ipratropium (Duoneb -) 1 amp NEB QID PRN PRN Reason: SHORTNESS OF BREATH Amiodarone HCl (Cordarone -) 400 mg PO TID [facility] Last Admin: 08/01/16 06:21 Dose: 400 mg Brimonidine Tartrate (Alphagan P 0.1% -) 1 drop OU BID [facility] Last Admin: 07/31/16 21:36 Dose: 1 drop Collagenase (Santyl -) 1 applic TP DAILY [facility] Last Admin: 07/31/16 09:58 Dose: 1 applic Dopamine HCl/Dextrose (Dopamine 400 Mg/D5w -) 250 mls @ 17.04 mls/hr IVPB TITR [facility]; 5 MCG/KG/MIN PRN Reason: Protocol Last Admin: 07/31/16 17:41 Dose: 8.517 mls/hr Levothyroxine Sodium (Synthroid -) 50 mcg PO DAILY@0700 [facility] Last Admin: 08/01/16 06:21 Dose: 50 mcg Metoprolol Tartrate (Lopressor -) 12.5 mg PO BID [facility] Last Admin: 08/01/16 09:30 Dose: Not Given Pantoprazole Sodium (Protonix -) 40 mg PO DAILY [facility] Last Admin: 07/31/16 09:55 Dose: 40 mg Gen: mildly tachypneic on VM O2 Heart: RRR Lung: scattered rhonchi Abd: soft, nontender Ext: no edema, draining ulcers Laboratory Results - last 24 hr 07/31/16 08/01/16 08/01/16 21:00 05:20 05:20 WBC 11.4 H RBC 3.29 L Hgb 9.2 L Hct 30.2 L MCV 91.7 MCHC 30.3 L RDW 21.4 H Plt Count 85 L MPV 10.0 Neutrophils % 82.6 Lymphocytes % 5.8 L D Monocytes % 9.4 Eosinophils % 1.5 Basophils % 0.7 Puncture Site ABG pH ABG pCO2 at Pt Temp ABG pO2 at Pt Temp ABG HCO3 ABG O2 Sat (Measured) ABG O2 Content ABG Base Excess Frankie Test O2 Delivery Device Oxygen Flow Rate PEEP Sodium 146 H Potassium 3.3 L Chloride 104 Carbon Dioxide 28 Anion Gap 14 BUN 20 H D Creatinine 2.6 H D Creat Clearance w eGFR 24.12 Random Glucose 95 D Lactic Acid 2.592 H* Calcium 8.4 L Total Bilirubin 1.5 H AST 66 H D ALT 34 D Alkaline Phosphatase 83 Total Protein 5.6 L Albumin 2.3 L 08/01/16 07:30 WBC RBC Hgb Hct MCV MCHC RDW Plt Count MPV Neutrophils % Lymphocytes % Monocytes % Eosinophils % Basophils % Puncture Site Right brachial ABG pH 7.35 ABG pCO2 at Pt Temp 50.7 H D ABG pO2 at Pt Temp 88.4 D ABG HCO3 27.5 H ABG O2 Sat (Measured) 96.8 ABG O2 Content 12.6 L ABG Base Excess 2.1 H Frankie Test Positive O2 Delivery Device Ventimask Oxygen Flow Rate 40% PEEP 0.0 Sodium Potassium Chloride Carbon Dioxide Anion Gap BUN Creatinine Creat Clearance w eGFR Random Glucose Lactic Acid Calcium Total Bilirubin AST ALT Alkaline Phosphatase Total Protein Albumin ASSESSMENT AND PLAN: Acute on Chronic Hypoxic and Hypercapneic Respiratory Failure Sacral Decubitus Ulcer Infection Septic Shock Lactic Acidosis ESRD on HD Severe LV Systolic Dysfunction Atrial Fibrillation CAD - antibiotics per ID - for debridement in OR - IVF boluses as needed - taper dopamine gtt to maintain MAP >50 to 55 - NIPPV to assist in work of breathing and acute hypercapnea - VM O2 as tolerated - O2 to keep SpO2 >90% - HD per renal - aspiration precautions - wound care - DVT prophylaxis - continue discussions regarding goals of care as pt chronically ill with prolonged multiple hospitalizations Dr Farrell critical care time spent in reviewing chart, evaluating patient and formulating plan 35 min
[2016-08-01 12:46] LABS: INR 1.81 (0.82-1.09); PROTHROMBIN TIME (PATIENT) 20.2 SEC (9.98-11.88)
--- NOTE | 2016-08-01 15:19 | PN ---
Progress Note, Physician History of Present Illness: Pt seen and examined at bedside. He is awake and appears weak. He remains on dopamine. - Current Medication List Current Medications: Active Medications Acetaminophen (Tylenol -) 325 mg PO Q6H PRN PRN Reason: FEVER Albuterol/Ipratropium (Duoneb -) 1 amp NEB QID PRN PRN Reason: SHORTNESS OF BREATH Amiodarone HCl (Cordarone -) 400 mg PO TID [facility] Last Admin: 08/01/16 06:21 Dose: 400 mg Brimonidine Tartrate (Alphagan P 0.1% -) 1 drop OU BID [facility] Last Admin: 07/31/16 21:36 Dose: 1 drop Collagenase (Santyl -) 1 applic TP DAILY [facility] Last Admin: 07/31/16 09:58 Dose: 1 applic Dopamine HCl/Dextrose (Dopamine 400 Mg/D5w -) 250 mls @ 17.04 mls/hr IVPB TITR [facility]; 5 MCG/KG/MIN PRN Reason: Protocol Last Admin: 07/31/16 17:41 Dose: 8.517 mls/hr Levothyroxine Sodium (Synthroid -) 50 mcg PO DAILY@0700 [facility] Last Admin: 08/01/16 06:21 Dose: 50 mcg Metoprolol Tartrate (Lopressor -) 12.5 mg PO BID [facility] Last Admin: 08/01/16 09:30 Dose: Not Given Pantoprazole Sodium (Protonix -) 40 mg PO DAILY [facility] Last Admin: 07/31/16 09:55 Dose: 40 mg - Objective Vital Signs: Vital Signs Temperature 98.9 F 08/01/16 14:00 Pulse Rate 109 H 08/01/16 14:00 Respiratory Rate 18 08/01/16 14:00 Blood Pressure 85/66 08/01/16 14:00 O2 Sat by Pulse Oximetry (%) 90 L 08/01/16 09:00 Constitutional: Yes: Calm Eyes: Yes: Conjunctiva Clear HENT: Yes: Atraumatic Neck: Yes: Supple Cardiovascular: Yes: S1, S2 Respiratory: Yes: On Venti-Mask, Rhonchi Gastrointestinal: Yes: Normal Bowel Sounds, Soft Genitourinary: Yes: Incontinence Musculoskeletal: Yes: Muscle Weakness Edema: No Wound/Incision: Yes: Dressing Dry and Intact Neurological: Yes: Confusion Labs: CBC, BMP 08/01/16 05:20 08/01/16 05:20 INR, PTT INR 1.81 (0.82-1.09) H 08/01/16 12:09 - ....Imaging Chest X-ray: Report Reviewed Problem List - Problems (1) End stage renal disease on dialysis Code(s): N18.6 - END STAGE RENAL DISEASE Z99.2 - DEPENDENCE ON RENAL DIALYSIS (2) Hypotension Code(s): I95.9 - HYPOTENSION, UNSPECIFIED Qualifiers: Qualified Code(s): I95.9 - Hypotension, unspecified (3) Anemia Code(s): D64.9 - ANEMIA, UNSPECIFIED Qualifiers: Qualified Code(s): N18.9 - Chronic kidney disease, unspecified; D63.1 - Anemia in chronic kidney disease Assessment/Plan Current Medications Generic Name Dose Route Start Last Admin Trade Name Freq PRN Reason Stop Dose Admin Acetaminophen 325 mg 07/29/16 11:06 Tylenol - PO Q6H PRN FEVER Albuterol/Ipratropium 1 amp 07/29/16 11:06 Duoneb - NEB QID PRN SHORTNESS OF BREATH Amiodarone HCl 400 mg 07/29/16 14:00 08/01/16 06:21 Cordarone - PO 400 mg TID [facility] Administration Brimonidine Tartrate 1 drop 07/29/16 22:00 07/31/16 21:36 Alphagan P 0.1% - OU 1 drop BID [facility] Administration Collagenase 1 applic 07/30/16 10:00 07/31/16 09:58 Santyl - TP 1 applic DAILY [facility] Administration Dopamine HCl/Dextrose 250 mls @ 17.04 mls/hr 07/29/16 10:45 07/31/16 17:41 Dopamine 400 Mg/D5w - IVPB 8.517 mls/hr TITR [facility] Administration Protocol 5 MCG/KG/MIN Levothyroxine Sodium 50 mcg 07/30/16 07:00 08/01/16 06:21 Synthroid - PO 50 mcg DAILY@0700 [facility] Administration Metoprolol Tartrate 12.5 mg 07/29/16 22:00 08/01/16 09:30 Lopressor - PO Not Given BID [facility] Pantoprazole Sodium 40 mg 07/30/16 10:00 07/31/16 09:55 Protonix - PO 40 mg DAILY [facility] Administration Impression 1. ESRD on HD 2. hypotension 3. cellulitis/abscess of back 4. CHF 5. hypothyroidism 6. hyperlipidemia 7. COPD 8. a-fib 9. pleural effusion Plan - will arrange for HD in am - taper dopamine as tolerated - cont wound care - will need fistula once more stable - one to one feeds - pt has poor functional status - will follow
--- NOTE | 2016-08-01 17:49 | PN ---
Progress Note (short form) - Note Progress Note: Vascular surgery Pt seen and examined. Still on dopamine. Was going to take pt to OR , but case got bumped by emergency from endoscopy for bleeding colon. Spoke to ICU team to optimize pt and will take pt for bilateral leg debridement early next week. Will see zena Batres DO
[2016-08-01] MEDS ORDERED: PT OWN MED DRAWER 7, Y5N ONE ×2 (17:56→20:57)
[2016-08-02] MEDS: AMIODARONE HCL 200 MG TABLET (FP) PO SCH ×3 (06:05→21:31)
[2016-08-02] MEDS: LEVOTHYROXINE NA 50 MCG TABLET (FP) PO SCH (06:05)
--- NOTE | 2016-08-02 09:11 | PN ---
Progress Note (short form) - Note Progress Note: PULM/CCM SUBJECTIVE: Patient seen and examined in the ICU, on HD this morning no events overnight remains on dopa CBC, BMP 08/01/16 05:20 08/01/16 05:20 Vital Signs Temp 96.2 F L 08/02/16 02:00 Pulse 107 H 08/02/16 06:00 Resp 25 H 08/02/16 06:00 BP 92/78 08/02/16 06:00 Pulse Ox 90 L 08/01/16 22:00 Intake & Output 08/01/16 08/01/16 08/02/16 11:59 23:59 11:59 Intake Total 202 478 145 Output Total 0 Balance 202 478 145 Weight 86.239 kg 85.417 kg Intake: IV 102 128 45 Dopamine 400 mg/D5w - 250 102 128 45 ml @ 5 MCG/KG/MIN 17.04 mls/hr IVPB TITR [facility] Rx#: [id number] IVPB 100 Oral 0 50 100 Oral Supplement 300 Output: Urine 0 Void 0 Other: Voiding Method Indwelling Catheter Indwelling Catheter Bowel Movement No No No Weight Measurement Method [facility] Active Medications Acetaminophen (Tylenol -) 325 mg PO Q6H PRN PRN Reason: FEVER Albumin Human (Albumin Human 25%) 12.5 gm IVPB Q30M [facility] Stop: 08/02/16 17:01 Albuterol/Ipratropium (Duoneb -) 1 amp NEB QID PRN PRN Reason: SHORTNESS OF BREATH Amiodarone HCl (Cordarone -) 400 mg PO TID [facility] Last Admin: 08/02/16 06:05 Dose: 400 mg Brimonidine Tartrate (Alphagan P 0.1% -) 1 drop OU BID [facility] Last Admin: 08/01/16 21:38 Dose: 1 drop Collagenase (Santyl -) 1 applic TP DAILY [facility] Last Admin: 08/01/16 10:35 Dose: 1 applic Epoetin Wilson (Epogen -) 8,000 units IVPUSH ONCE ONE Stop: 08/02/16 15:20 Heparin Sodium (Porcine) (Heparin -) 1,000 unit IVPUSH ONCE ONE Stop: 08/02/16 15:20 Dopamine HCl/Dextrose (Dopamine 400 Mg/D5w -) 250 mls @ 17.04 mls/hr IVPB TITR [facility]; 5 MCG/KG/MIN PRN Reason: Protocol Last Admin: 08/01/16 11:00 Dose: 8.517 mls/hr Levothyroxine Sodium (Synthroid -) 50 mcg PO DAILY@0700 [facility] Last Admin: 08/02/16 06:05 Dose: 50 mcg Metoprolol Tartrate (Lopressor -) 12.5 mg PO BID [facility] Last Admin: 08/01/16 21:38 Dose: Not Given Pantoprazole Sodium (Protonix -) 40 mg PO DAILY [facility] Last Admin: 08/01/16 10:35 Dose: 40 mg Gen: mildly tachypneic on VM O2 Heart: RRR Lung: scattered rhonchi, no wheezes Abd: soft, nontender Ext: no edema, draining ulcers dressed, not extending Neuro: drowsy but awakens to voice ASSESSMENT AND PLAN: Acute on Chronic Hypoxic and Hypercapneic Respiratory Failure Sacral Decubitus Ulcer Infection Septic Shock Lactic Acidosis ESRD on HD Severe LV Systolic Dysfunction Atrial Fibrillation CAD - antibiotics per ID - for debridement in OR early next week with Batres - IVF boluses as needed - taper dopamine gtt to maintain MAP >50 to 55 - NIPPV to assist in work of breathing and acute hypercapnea - VM O2 as tolerated - O2 to keep SpO2 >90% - HD per renal, being dialyzed today - aspiration precautions - wound care - DVT prophylaxis - continue discussions regarding goals of care as pt chronically ill with prolonged multiple hospitalizations Nik Shultz ANCP [id number]
--- NOTE | 2016-08-02 09:47 | PN ---
Progress Note (short form) - Note Progress Note: Pt seen/ examined in icu chart reviewed Being dialized remains on dopa debridgement postponed Vital Signs Temp 96.2 F L 08/02/16 02:00 Pulse 107 H 08/02/16 06:00 Resp 25 H 08/02/16 06:00 BP 92/78 08/02/16 06:00 Pulse Ox 90 L 08/01/16 22:00 Intake & Output 08/01/16 08/01/16 08/02/16 11:59 23:59 11:59 Intake Total 202 478 145 Output Total 0 Balance 202 478 145 Weight 190 lb 2 oz 188 lb 5 oz Intake: IV 102 128 45 Dopamine 400 mg/D5w - 250 102 128 45 ml @ 5 MCG/KG/MIN 17.04 mls/hr IVPB TITR [facility] Rx#: [id number] IVPB 100 Oral 0 50 100 Oral Supplement 300 Output: Urine 0 Void 0 Other: Voiding Method Indwelling Catheter Indwelling Catheter Bowel Movement No No No Weight Measurement Method Built in Bedscale Built in Bedscale Active Medications Acetaminophen (Tylenol -) 325 mg PO Q6H PRN PRN Reason: FEVER Albumin Human (Albumin Human 25%) 12.5 gm IVPB Q30M [facility] Stop: 08/02/16 17:01 Albuterol/Ipratropium (Duoneb -) 1 amp NEB QID PRN PRN Reason: SHORTNESS OF BREATH Amiodarone HCl (Cordarone -) 400 mg PO TID [facility] Last Admin: 08/02/16 06:05 Dose: 400 mg Brimonidine Tartrate (Alphagan P 0.1% -) 1 drop OU BID [facility] Last Admin: 08/01/16 21:38 Dose: 1 drop Collagenase (Santyl -) 1 applic TP DAILY [facility] Last Admin: 08/01/16 10:35 Dose: 1 applic Epoetin Wilson (Epogen -) 8,000 units IVPUSH ONCE ONE Stop: 08/02/16 15:20 Heparin Sodium (Porcine) (Heparin -) 1,000 unit IVPUSH ONCE ONE Stop: 08/02/16 15:20 Dopamine HCl/Dextrose (Dopamine 400 Mg/D5w -) 250 mls @ 17.04 mls/hr IVPB TITR [facility]; 5 MCG/KG/MIN PRN Reason: Protocol Last Admin: 08/01/16 11:00 Dose: 8.517 mls/hr Levothyroxine Sodium (Synthroid -) 50 mcg PO DAILY@0700 [facility] Last Admin: 08/02/16 06:05 Dose: 50 mcg Metoprolol Tartrate (Lopressor -) 12.5 mg PO BID [facility] Last Admin: 08/01/16 21:38 Dose: Not Given Pantoprazole Sodium (Protonix -) 40 mg PO DAILY [facility] Last Admin: 08/01/16 10:35 Dose: 40 mg CBC, BMP 08/01/16 05:20 08/01/16 05:20 INR, PTT INR 1.81 (0.82-1.09) H 08/01/16 12:09 Microbiology 07/29/16 10:15 Blood Culture - Preliminary Blood - Peripheral Venous NO GROWTH OBTAINED AFTER 72 HOURS, INCUBATION TO CONTINUE FOR 2 DAYS. 07/29/16 10:15 Blood Culture - Preliminary Blood - Peripheral Venous NO GROWTH OBTAINED AFTER 72 HOURS, INCUBATION TO CONTINUE FOR 2 DAYS. PHYSICAL EXAMINATION: Constitutional: Yes: drowsy but arousable. Cardiovascular: Yes: Regular Rate and Rhythm Respiratory: Yes: Diminished at bases. Gastrointestinal: Yes: Normal Bowel Sounds, Soft. No: Tenderness Edema: No-- dressing present on both legs. Problem List - Problems (1) Congestive heart failure (CHF) Code(s): I50.9 - HEART FAILURE, UNSPECIFIED Qualifiers: Congestive heart failure type: systolic Congestive heart failure chronicity: chronic Qualified Code(s): I50.22 - Chronic systolic (congestive ) heart failure (2) DMII (diabetes mellitus, type 2) Code(s): E11.9 - TYPE 2 DIABETES MELLITUS WITHOUT COMPLICATIONS Qualifiers: Diabetes mellitus complication detail: with other kidney complication (3) HTN (hypertension) Code(s): I10 - ESSENTIAL (PRIMARY) HYPERTENSION Qualifiers: Hypertension type: essential hypertension Qualified Code(s): I10 - Essential (primary) hypertension (4) Pressure ulcer of lower extremity, stage 1 Code(s): L89.891 - PRESSURE ULCER OF OTHER SITE, STAGE 1 (5) Sepsis Code(s): A41.9 - SEPSIS, UNSPECIFIED ORGANISM Qualifiers: Sepsis type: sepsis due to unspecified organism Qualified Code(s): A41.9 - Sepsis, unspecified organism (6) Rapid atrial fibrillation Code(s): I48.91 - UNSPECIFIED ATRIAL FIBRILLATION (7) Functional quadriplegia Code(s): R53.2 - FUNCTIONAL QUADRIPLEGIA (8) End stage renal disease on dialysis Code(s): N18.6 - END STAGE RENAL DISEASE Z99.2 - DEPENDENCE ON RENAL DIALYSIS ASSESSMENT & PLAN: - Continue present care. - Off Antibiotics. - For OR next week for debridement. - Condition remains poor. - Patient is DNR. - Discussed with nursing staff/ icu attending - CC Time 20 minutes - will follow
[2016-08-02] MEDS: ALBUMIN HUMAN 25% 12.5 GM/50 ML VIAL IVPB SCH ×4 (10:00→11:30)
[2016-08-02] MEDS ORDERED: HEPARIN NA (PORCINE) 5,000 UNITS/ML 1ML VIAL IVPUSH ONE (10:00)
[2016-08-02] MEDS ORDERED: EPOETIN ALFA 10,000 UNIT/1 ML VIAL IVPUSH ONE (11:30)
--- NOTE | 2016-08-02 12:35 | PN ---
Progress Note, Physician Chief Complaint: This is a 76 year old male with known CAD, afib, chronic systolic chf, htn, dm, ckd, hld, and ckd with multiple recent admissions for infection/sepsis admitted with hypotension and tachycardia in setting of sepsis. History of Present Illness: On dopamine - Current Medication List Current Medications: Active Medications Acetaminophen (Tylenol -) 325 mg PO Q6H PRN PRN Reason: FEVER Albuterol/Ipratropium (Duoneb -) 1 amp NEB QID PRN PRN Reason: SHORTNESS OF BREATH Amiodarone HCl (Cordarone -) 400 mg PO TID [facility] Last Admin: 08/02/16 06:05 Dose: 400 mg Brimonidine Tartrate (Alphagan P 0.1% -) 1 drop OU BID [facility] Last Admin: 08/01/16 21:38 Dose: 1 drop Collagenase (Santyl -) 1 applic TP DAILY [facility] Last Admin: 08/01/16 10:35 Dose: 1 applic Dopamine HCl/Dextrose (Dopamine 400 Mg/D5w -) 250 mls @ 17.04 mls/hr IVPB TITR [facility]; 5 MCG/KG/MIN PRN Reason: Protocol Last Admin: 08/01/16 11:00 Dose: 8.517 mls/hr Levothyroxine Sodium (Synthroid -) 50 mcg PO DAILY@0700 [facility] Last Admin: 08/02/16 06:05 Dose: 50 mcg Metoprolol Tartrate (Lopressor -) 12.5 mg PO BID [facility] Last Admin: 08/01/16 21:38 Dose: Not Given Pantoprazole Sodium (Protonix -) 40 mg PO DAILY [facility] Last Admin: 08/01/16 10:35 Dose: 40 mg - Objective Vital Signs: Vital Signs Temperature 97.4 F L 08/02/16 08:00 Pulse Rate 105 H 08/02/16 11:00 Respiratory Rate 24 08/02/16 11:00 Blood Pressure 85/71 08/02/16 11:00 O2 Sat by Pulse Oximetry (%) 90 L 08/01/16 22:00 Constitutional: Yes: No Distress Neck: Yes: Supple Cardiovascular: Yes: Pulse Irregular, S1, S2 Respiratory: Yes: Diminished (bases) Gastrointestinal: Yes: Normal Bowel Sounds, Soft Labs: CBC, BMP 08/01/16 05:20 08/01/16 05:20 INR, PTT INR 1.81 (0.82-1.09) H 08/01/16 12:09 Problem List - Problems (1) Rapid atrial fibrillation Code(s): I48.91 - UNSPECIFIED ATRIAL FIBRILLATION Assessment/Plan This is a 76 year old male with known CAD, afib, chronic systolic chf, htn, dm, ckd, hld, and ckd with multiple recent admissions for infection/sepsis admitted with hypotension and tachycardia in setting of sepsis. 1) Sepsis/Hypotension -Hypotension due to infection. On dopamine for blood pressure support. IVFluid boluses antibiotics as per primary team and pressors as needed for hemodynamic support -B/l lower extremity wounds being followed by vascular. 2) Afib Ventricular rates controlled today. No av higinio blockers as BP would not tolerate. amiodarone to 400mg daily. AC is currently on hold. Replete lytes as needed 3) CHF No dyllan/arb or bblocker due to hypotension. IVF's as needed for hypotension along with pressures if needed.
[2016-08-02] MEDS: PANTOPRAZOLE 40 MG TABLET (FP) PO SCH (12:45)
[2016-08-02] MEDS: DOPAMINE 400 MG/D5W - 250 ML IVPB SCH (12:45)
[2016-08-02] MEDS: METOPROLOL TARTRATE 25 MG TABLET (FP) PO SCH ×2 (12:45→21:31)
[2016-08-02] MEDS: COLLAGENASE CLOSTRIDIUM HIST. 30 GRAMS TUBE TP SCH (12:46)
[2016-08-02] MEDS: BRIMONIDINE TARTRATE 0.1% OPHTHALMIC 5 ML BOTTLE OU SCH ×2 (12:46→21:30)
--- NOTE | 2016-08-02 16:55 | PN ---
Progress Note, Physician History of Present Illness: Pt seen and examined at bedside. He remains in the ICU. He remain on dopamine. - Current Medication List Current Medications: Active Medications Acetaminophen (Tylenol -) 325 mg PO Q6H PRN PRN Reason: FEVER Albuterol/Ipratropium (Duoneb -) 1 amp NEB QID PRN PRN Reason: SHORTNESS OF BREATH Amiodarone HCl (Cordarone -) 400 mg PO TID [facility] Last Admin: 08/02/16 06:05 Dose: 400 mg Brimonidine Tartrate (Alphagan P 0.1% -) 1 drop OU BID [facility] Last Admin: 08/02/16 12:46 Dose: 1 drop Collagenase (Santyl -) 1 applic TP DAILY [facility] Last Admin: 08/02/16 12:46 Dose: 1 applic Dopamine HCl/Dextrose (Dopamine 400 Mg/D5w -) 250 mls @ 17.04 mls/hr IVPB TITR [facility]; 5 MCG/KG/MIN PRN Reason: Protocol Last Admin: 08/02/16 12:45 Dose: 8.517 mls/hr Levothyroxine Sodium (Synthroid -) 50 mcg PO DAILY@0700 [facility] Last Admin: 08/02/16 06:05 Dose: 50 mcg Metoprolol Tartrate (Lopressor -) 12.5 mg PO BID [facility] Last Admin: 08/02/16 12:45 Dose: Not Given Pantoprazole Sodium (Protonix -) 40 mg PO DAILY [facility] Last Admin: 08/02/16 12:45 Dose: 40 mg - Objective Vital Signs: Vital Signs Temperature 97.2 F L 08/02/16 12:00 Pulse Rate 103 H 08/02/16 16:00 Respiratory Rate 22 08/02/16 16:00 Blood Pressure 91/63 08/02/16 16:00 O2 Sat by Pulse Oximetry (%) 91 L 08/02/16 10:00 Constitutional: Yes: Calm Eyes: Yes: Conjunctiva Clear HENT: Yes: Atraumatic Cardiovascular: Yes: S1, S2 Respiratory: Yes: On Nasal O2 Gastrointestinal: Yes: Soft Genitourinary: Yes: Incontinence Musculoskeletal: Yes: Muscle Weakness Edema: No Integumentary: Yes: Venous Stasis Changes Wound/Incision: Yes: Dressing Dry and Intact Neurological: Yes: Oriented Labs: CBC, BMP 08/01/16 05:20 08/01/16 05:20 INR, PTT INR 1.81 (0.82-1.09) H 08/01/16 12:09 Problem List - Problems (1) End stage renal disease on dialysis Code(s): N18.6 - END STAGE RENAL DISEASE Z99.2 - DEPENDENCE ON RENAL DIALYSIS (2) Hypotension Code(s): I95.9 - HYPOTENSION, UNSPECIFIED Qualifiers: Qualified Code(s): I95.9 - Hypotension, unspecified (3) Anemia Code(s): D64.9 - ANEMIA, UNSPECIFIED Qualifiers: Qualified Code(s): N18.9 - Chronic kidney disease, unspecified; D63.1 - Anemia in chronic kidney disease Assessment/Plan Current Medications Generic Name Dose Route Start Last Admin Trade Name Freq PRN Reason Stop Dose Admin Acetaminophen 325 mg 07/29/16 11:06 Tylenol - PO Q6H PRN FEVER Albuterol/Ipratropium 1 amp 07/29/16 11:06 Duoneb - NEB QID PRN SHORTNESS OF BREATH Amiodarone HCl 400 mg 07/29/16 14:00 08/02/16 06:05 Cordarone - PO 400 mg TID [facility] Administration Brimonidine Tartrate 1 drop 07/29/16 22:00 08/02/16 12:46 Alphagan P 0.1% - OU 1 drop BID [facility] Administration Collagenase 1 applic 07/30/16 10:00 08/02/16 12:46 Santyl - TP 1 applic DAILY [facility] Administration Dopamine HCl/Dextrose 250 mls @ 17.04 mls/hr 07/29/16 10:45 08/02/16 12:45 Dopamine 400 Mg/D5w - IVPB 8.517 mls/hr TITR [facility] Administration Protocol 5 MCG/KG/MIN Levothyroxine Sodium 50 mcg 07/30/16 07:00 08/02/16 06:05 Synthroid - PO 50 mcg DAILY@0700 [facility] Administration Metoprolol Tartrate 12.5 mg 07/29/16 22:00 08/02/16 12:45 Lopressor - PO Not Given BID [facility] Pantoprazole Sodium 40 mg 07/30/16 10:00 08/02/16 12:45 Protonix - PO 40 mg DAILY [facility] Administration Impression 1. ESRD on HD 2. hypotension 3. cellulitis/abscess of back 4. CHF 5. hypothyroidism 6. hyperlipidemia 7. COPD 8. a-fib 9. pleural effusion Plan - pt tolerated HD today - cont current meds - cont ICU care - will follow - cont wound care - will need fistula once more stable - one to one feeds - pt has poor functional status - will follow
[2016-08-02] MEDS ORDERED: PT OWN MED DRAWER 7, Y5N ONE (21:28)
[2016-08-03] MEDS: LEVOTHYROXINE NA 50 MCG TABLET (FP) PO SCH (06:37)
[2016-08-03] MEDS: AMIODARONE HCL 200 MG TABLET (FP) PO SCH ×3 (06:37→22:59)
[2016-08-03] MEDS: METOPROLOL TARTRATE 25 MG TABLET (FP) PO SCH (10:15)
[2016-08-03] MEDS: PANTOPRAZOLE 40 MG TABLET (FP) PO SCH (10:20)
[2016-08-03] MEDS: BRIMONIDINE TARTRATE 0.1% OPHTHALMIC 5 ML BOTTLE OU SCH ×2 (10:20→23:02)
--- NOTE | 2016-08-03 10:32 | PN ---
Progress Note (short form) - Note Progress Note: Progress Note (short form) - Note Progress Note: PULM/CCM SUBJECTIVE: Patient seen and examined in the ICU -Remains on Dopa 6mcg/kg/min -Giving a break from NIPPV Current Medications Acetaminophen (Tylenol -) 325 mg PO Q6H PRN PRN Reason: FEVER Albuterol/Ipratropium (Duoneb -) 1 amp NEB QID PRN PRN Reason: SHORTNESS OF BREATH Amiodarone HCl (Cordarone -) 400 mg PO TID [facility] Last Admin: 08/03/16 06:37 Dose: 400 mg Brimonidine Tartrate (Alphagan P 0.1% -) 1 drop OU BID [facility] Last Admin: 08/02/16 21:30 Dose: 1 drop Collagenase (Santyl -) 1 applic TP DAILY [facility] Last Admin: 08/02/16 12:46 Dose: 1 applic Dopamine HCl/Dextrose (Dopamine 400 Mg/D5w -) 250 mls @ 17.04 mls/hr IVPB TITR [facility]; 5 MCG/KG/MIN PRN Reason: Protocol Last Titration: 08/03/16 06:44 Dose: 6 mcg/kg/min Levothyroxine Sodium (Synthroid -) 50 mcg PO DAILY@0700 [facility] Last Admin: 08/03/16 06:37 Dose: 50 mcg Metoprolol Tartrate (Lopressor -) 12.5 mg PO BID [facility] Last Admin: 08/02/16 21:31 Dose: Not Given Pantoprazole Sodium (Protonix -) 40 mg PO DAILY [facility] Last Admin: 08/02/16 12:45 Dose: 40 mg Vital Signs Temp 96.8 F L 08/03/16 02:00 Pulse 92 H 08/03/16 08:00 Resp 24 08/03/16 08:00 BP 82/49 08/03/16 08:00 Pulse Ox 90 L 08/02/16 22:00 Intake & Output 08/02/16 08/03/16 08/03/16 18:59 06:59 18:59 Intake Total 378 240 Balance 378 240 Weight 87.09 kg Intake: IV 78 65 Dopamine 400 mg/D5w - 250 78 65 ml @ 5 MCG/KG/MIN 17.04 mls/hr IVPB TITR [facility] Rx#: [id number] Oral 125 Oral Supplement 300 50 Other: Voiding Method Indwelling Catheter Weight Measurement Method Built in [facility] Gen: mildly tachypneic on VM O2 Heart: RRR Lung: scattered rhonchi, no wheezes Abd: soft, nontender Ext: no edema, draining ulcers dressed, not extending Neuro: awake CBC, BMP 08/01/16 05:20 08/01/16 05:20 ASSESSMENT AND PLAN: Acute on Chronic Hypoxic and Hypercapneic Respiratory Failure Sacral Decubitus Ulcer Infection Septic Shock Lactic Acidosis ESRD on HD Severe LV Systolic Dysfunction Atrial Fibrillation CAD - antibiotics per ID - for debridement in OR early next week with Bat[facility] - IVF boluses as needed - taper dopamine gtt to maintain MAP >50 to 55 - NIPPV to assist in work of breathing and acute hypercapnea - VM O2 as tolerated - O2 to keep SpO2 >90% - HD per renal, being dialyzed today - aspiration precautions - wound care - DVT prophylaxis - continue discussions regarding goals of care as pt chronically ill with prolonged multiple hospitalizations Efrem [facility]cct
[2016-08-03] MEDS: COLLAGENASE CLOSTRIDIUM HIST. 30 GRAMS TUBE TP SCH (12:00)
--- NOTE | 2016-08-03 12:22 | PN ---
Progress Note (short form) - Note Progress Note: pt seen/ examined today on bipap condition unchanged comfortable Vital Signs Temp 96.8 F L 08/03/16 02:00 Pulse 92 H 08/03/16 08:00 Resp 24 08/03/16 08:00 BP 82/49 08/03/16 08:00 Pulse Ox 90 L 08/02/16 22:00 Intake & Output 08/02/16 08/03/16 08/03/16 23:59 11:59 23:59 Intake Total 618 50 Balance 618 50 Weight 192 lb Intake: IV 143 Dopamine 400 mg/D5w - 250 143 ml @ 5 MCG/KG/MIN 17.04 mls/hr IVPB TITR [facility] Rx#: [id number] Oral 125 Oral Supplement 350 50 Other: Voiding Method Indwelling Catheter Indwelling Catheter Weight Measurement Method Built in [facility] Active Medications Acetaminophen (Tylenol -) 325 mg PO Q6H PRN PRN Reason: FEVER Amiodarone HCl (Cordarone -) 400 mg PO TID [facility] Last Admin: 08/03/16 06:37 Dose: 400 mg Brimonidine Tartrate (Alphagan P 0.1% -) 1 drop OU BID [facility] Last Admin: 08/03/16 10:20 Dose: 1 drop Collagenase (Santyl -) 1 applic TP DAILY [facility] Last Admin: 08/02/16 12:46 Dose: 1 applic Dopamine HCl/Dextrose (Dopamine 400 Mg/D5w -) 250 mls @ 17.04 mls/hr IVPB TITR [facility]; 5 MCG/KG/MIN PRN Reason: Protocol Last Titration: 08/03/16 06:44 Dose: 6 mcg/kg/min Levothyroxine Sodium (Synthroid -) 50 mcg PO DAILY@0700 [facility] Last Admin: 08/03/16 06:37 Dose: 50 mcg Pantoprazole Sodium (Protonix -) 40 mg PO DAILY [facility] Last Admin: 08/03/16 10:20 Dose: 40 mg Labs - no today PHYSICAL EXAMINATION: Constitutional: Yes: drowsy but arousable. Cardiovascular: Yes: Regular Rate and Rhythm Respiratory: Yes: Diminished at bases. Gastrointestinal: Yes: Normal Bowel Sounds, Soft. No: Tenderness Edema: No-- dressing present on both legs. Problem List - Problems (1) Congestive heart failure (CHF) Code(s): I50.9 - HEART FAILURE, UNSPECIFIED Qualifiers: Congestive heart failure type: systolic Congestive heart failure chronicity: chronic Qualified Code(s): I50.22 - Chronic systolic (congestive ) heart failure (2) DMII (diabetes mellitus, type 2) Code(s): E11.9 - TYPE 2 DIABETES MELLITUS WITHOUT COMPLICATIONS Qualifiers: Diabetes mellitus complication detail: with other kidney complication (3) HTN (hypertension) Code(s): I10 - ESSENTIAL (PRIMARY) HYPERTENSION Qualifiers: Hypertension type: essential hypertension Qualified Code(s): I10 - Essential (primary) hypertension (4) Pressure ulcer of lower extremity, stage 1 Code(s): L89.891 - PRESSURE ULCER OF OTHER SITE, STAGE 1 (5) Sepsis Code(s): A41.9 - SEPSIS, UNSPECIFIED ORGANISM Qualifiers: Sepsis type: sepsis due to unspecified organism Qualified Code(s): A41.9 - Sepsis, unspecified organism (6) Rapid atrial fibrillation Code(s): I48.91 - UNSPECIFIED ATRIAL FIBRILLATION (7) Functional quadriplegia Code(s): R53.2 - FUNCTIONAL QUADRIPLEGIA (8) End stage renal disease on dialysis Code(s): N18.6 - END STAGE RENAL DISEASE Z99.2 - DEPENDENCE ON RENAL DIALYSIS ASSESSMENT & PLAN: - Continue present care. - Off Antibiotics. - For OR next week for debridement. - Condition remains poor. - Patient is DNR. - Discussed with nursing staff - CC Time 20 minutes -check labs today
--- NOTE | 2016-08-03 13:37 | PN ---
Progress Note, Physician Chief Complaint: on bipap comfortable unchanged Afib with controlled HR History of Present Illness: This is a 76 year old male with known CAD, afib, chronic systolic chf, htn, dm, ckd, hld, and ckd with multiple recent admissions for infection/sepsis admitted with hypotension and tachycardia in setting of sepsis. - Current Medication List Current Medications: Active Medications Acetaminophen (Tylenol -) 325 mg PO Q6H PRN PRN Reason: FEVER Amiodarone HCl (Cordarone -) 400 mg PO TID [facility] Last Admin: 08/03/16 06:37 Dose: 400 mg Brimonidine Tartrate (Alphagan P 0.1% -) 1 drop OU BID [facility] Last Admin: 08/03/16 10:20 Dose: 1 drop Collagenase (Santyl -) 1 applic TP DAILY [facility] Last Admin: 08/02/16 12:46 Dose: 1 applic Dopamine HCl/Dextrose (Dopamine 400 Mg/D5w -) 250 mls @ 17.04 mls/hr IVPB TITR [facility]; 5 MCG/KG/MIN PRN Reason: Protocol Last Titration: 08/03/16 06:44 Dose: 6 mcg/kg/min Levothyroxine Sodium (Synthroid -) 50 mcg PO DAILY@0700 [facility] Last Admin: 08/03/16 06:37 Dose: 50 mcg Pantoprazole Sodium (Protonix -) 40 mg PO DAILY [facility] Last Admin: 08/03/16 10:20 Dose: 40 mg - Objective Vital Signs: Vital Signs Temperature 96.8 F L 08/03/16 02:00 Pulse Rate 92 H 08/03/16 08:00 Respiratory Rate 24 08/03/16 08:00 Blood Pressure 82/49 08/03/16 08:00 O2 Sat by Pulse Oximetry (%) 90 L 08/02/16 22:00 Neck: Yes: Supple Cardiovascular: Yes: Pulse Irregular, S1, S2 Respiratory: Yes: Diminished Gastrointestinal: Yes: Normal Bowel Sounds, Soft Extremities: Yes: Other (LE's with b/l wounds) Edema: No Labs: CBC, BMP 08/01/16 05:20 08/01/16 05:20 INR, PTT INR 1.81 (0.82-1.09) H 08/01/16 12:09 Problem List - Problems (1) Rapid atrial fibrillation Code(s): I48.91 - UNSPECIFIED ATRIAL FIBRILLATION Assessment/Plan This is a 76 year old male with known CAD, afib, chronic systolic chf, htn, dm, ckd, hld, and ckd with multiple recent admissions for infection/sepsis admitted with hypotension and tachycardia in setting of sepsis. 1) Sepsis/Hypotension -Hypotension due to infection. On dopamine for blood pressure support. IVFluid boluses if needed -B/l lower extremity wounds with plan for debridement this week 2) Afib Ventricular rates controlled today. No av higinio blockers as BP would not tolerate. amiodarone to 400mg daily. AC is currently on hold. Replete lytes as needed If remains in afib will discuss stopping amio in the future if not responding to it. 3) CHF No dyllan/arb or bblocker due to hypotension. IVF's as needed for hypotension along with pressures if needed.
[2016-08-03] MEDS: DOPAMINE 400 MG/D5W - 250 ML IVPB SCH (14:00)
[2016-08-03 14:08] LABS: ALBUMIN 2.8 g/dl (3.4-5.0); BILIRUBIN,TOTAL 1.8 mg/dL (0.2-1.0); CALCIUM 8.7 mg/dL (8.5-10.1); COCKROFT - GAULT 28.6; CREATININE 2.7 mg/dL (0.7-1.3); TOT PROT 6.2 g/dl (6.4-8.2)
[2016-08-03 14:20] LABS: BASOPHIL 0.3 % (0-2.0); EOSINOPHIL 0.5 % (0-4.5); MCH 27.9 pg (25.7-33.7); MCHC 29.4 g/dl (32.0-35.9); MEAN CELL VOLUME 95.2 fl (80-96); MEAN PLT VOLUME 10.3 fl (7.5-11.1); NEUTROPHILS 83.6 % (42.8-82.8); PLATELET COUNT 54 K/MM3 (134-434); RDW 22.5 % (11.9-15.9); WHITE BLOOD COUNT 15.3 K/mm3 (4.0-10.0)
[2016-08-03 15:32] LABS: FRAGMENTED CELL FEW; HYPOCHROMIA 2+; MICROCYTOSIS 1+; POIKILOCYTOSIS 1+; TARGET CELLS 1+
[2016-08-03 15:33] LABS: ACANTHOCYTES 1+; TEAR DROP CELLS FEW
--- NOTE | 2016-08-03 15:42 | PN ---
Progress Note, Physician History of Present Illness: Pt seen and examined at bedside. He remains in the ICU. He is still on dopamine and unable to wean off. - Current Medication List Current Medications: Active Medications Acetaminophen (Tylenol -) 325 mg PO Q6H PRN PRN Reason: FEVER Amiodarone HCl (Cordarone -) 400 mg PO TID [facility] Last Admin: 08/03/16 13:58 Dose: 400 mg Brimonidine Tartrate (Alphagan P 0.1% -) 1 drop OU BID [facility] Last Admin: 08/03/16 10:20 Dose: 1 drop Collagenase (Santyl -) 1 applic TP DAILY [facility] Last Admin: 08/02/16 12:46 Dose: 1 applic Dopamine HCl/Dextrose (Dopamine 400 Mg/D5w -) 250 mls @ 17.04 mls/hr IVPB TITR [facility]; 5 MCG/KG/MIN PRN Reason: Protocol Last Titration: 08/03/16 06:44 Dose: 6 mcg/kg/min Levothyroxine Sodium (Synthroid -) 50 mcg PO DAILY@0700 [facility] Last Admin: 08/03/16 06:37 Dose: 50 mcg Pantoprazole Sodium (Protonix -) 40 mg PO DAILY [facility] Last Admin: 08/03/16 10:20 Dose: 40 mg - Objective Vital Signs: Vital Signs Temperature 96.8 F L 08/03/16 02:00 Pulse Rate 92 H 08/03/16 08:00 Respiratory Rate 24 08/03/16 08:00 Blood Pressure 82/49 08/03/16 08:00 O2 Sat by Pulse Oximetry (%) 90 L 08/02/16 22:00 Constitutional: Yes: Calm Eyes: Yes: Conjunctiva Clear HENT: Yes: Atraumatic Neck: Yes: Supple Cardiovascular: Yes: S1, S2 Respiratory: Yes: On BiPap Gastrointestinal: Yes: Soft Genitourinary: Yes: Incontinence Musculoskeletal: Yes: Muscle Weakness Edema: No Integumentary: Yes: Other (skin breakdown) Neurological: Yes: Lethargy Labs: CBC, BMP 08/03/16 13:37 08/03/16 13:37 INR, PTT INR 1.81 (0.82-1.09) H 08/01/16 12:09 Problem List - Problems (1) End stage renal disease on dialysis Code(s): N18.6 - END STAGE RENAL DISEASE Z99.2 - DEPENDENCE ON RENAL DIALYSIS (2) Hypotension Code(s): I95.9 - HYPOTENSION, UNSPECIFIED Qualifiers: Qualified Code(s): I95.9 - Hypotension, unspecified (3) Anemia Code(s): D64.9 - ANEMIA, UNSPECIFIED Qualifiers: Qualified Code(s): N18.9 - Chronic kidney disease, unspecified; D63.1 - Anemia in chronic kidney disease Assessment/Plan Current Medications Generic Name Dose Route Start Last Admin Trade Name Freq PRN Reason Stop Dose Admin Acetaminophen 325 mg 07/29/16 11:06 Tylenol - PO Q6H PRN FEVER Amiodarone HCl 400 mg 07/29/16 14:00 08/03/16 13:58 Cordarone - PO 400 mg TID [facility] Administration Brimonidine Tartrate 1 drop 07/29/16 22:00 08/03/16 10:20 Alphagan P 0.1% - OU 1 drop BID [facility] Administration Collagenase 1 applic 07/30/16 10:00 08/02/16 12:46 Santyl - TP 1 applic DAILY [facility] Administration Dopamine HCl/Dextrose 250 mls @ 17.04 mls/hr 07/29/16 10:45 08/03/16 06:44 Dopamine 400 Mg/D5w - IVPB 6 mcg/kg/min TITR [facility] Titration Protocol 5 MCG/KG/MIN Levothyroxine Sodium 50 mcg 07/30/16 07:00 08/03/16 06:37 Synthroid - PO 50 mcg DAILY@0700 [facility] Administration Pantoprazole Sodium 40 mg 07/30/16 10:00 08/03/16 10:20 Protonix - PO 40 mg DAILY [facility] Administration Impression 1. ESRD on HD 2. hypotension 3. cellulitis/abscess of back 4. CHF 5. hypothyroidism 6. hyperlipidemia 7. COPD 8. a-fib 9. pleural effusion 10. respiratory failure requiring bipap Plan - cont current management - cont bipap - monitor pulse od - next HD on Thursday - cont ICU care - will follow - cont wound care - one to one feeds - pt has poor functional status Dr Martinez
[2016-08-03 20:48] LABS: ARTERIAL BLOOD GAS BASE EXCESS 2.6 meq/l (-2-2); ARTERIAL BLOOD GAS HCO3 25.1 meq/L (22-26); ARTERIAL BLOOD GAS PO2 82.6 mmHg (70-100)
[2016-08-03 20:49] LABS: ALLENS TEST POSITIVE; ART PUNCT SITE LEFT RADIAL; ARTERIAL BLOOD GAS pH 7.51 (7.35-7.45); LPM/O2% 60%; MECH. VENT. Y; PT. ON O2? YES; TYPE OF O2 BIPAP; VENT RATE 18; VT/PRESS 18
[2016-08-03] MEDS ORDERED: DOPAMINE 400 MG/D5W - 250 ML IVPB ONE (21:09)
--- NOTE | 2016-08-03 21:23 | PROC ---
Central Line Insertion Indication: Poor Venous Access, Sepsis, Vasopressor Risks and Benefits Explained: Yes Consent on Chart: Yes Central Line: Triple Lumen Catheter Anesthesia: 1% Lidocaine Sterile Technique: Yes Ultrasound Guided Assistance: No Position: Right Subclavian Post Insertion: Yes: Bilateral Breath Sounds, Bilateral Chest Expansion, Chest X-Ray Ordered Sterile Dressing Applied: Yes Remarks: Tolerated well w/o complication
[2016-08-03] MEDS ORDERED: NOREPINEPHRINE BITARTRATE 8,000 MCG in SODIUM CHLORIDE 0.45% 992 ML IV SCH (21:30)
[2016-08-03] MEDS ORDERED: NOREPINEPHRINE BITARTRATE 4 MG/4 ML ML IV ONE (22:15)
[2016-08-03] MEDS ORDERED: TRIPLE LUMEN FLUSH 4 ML ML IVPUSH PRN (22:30)
[2016-08-03] MEDS: NOREPINEPHRINE BITARTRATE 4,000 MCG in DEXTROSE 5%-WATER - 496 ML IV SCH (22:59)
[2016-08-04] MEDS: AMIODARONE HCL 200 MG TABLET (FP) PO SCH ×2 (06:16→10:26)
[2016-08-04] MEDS: LEVOTHYROXINE NA 50 MCG TABLET (FP) PO SCH (06:16)
--- NOTE | 2016-08-04 08:27 | PN ---
Physical Exam: SUBJECTIVE: Patient seen and examined at bedside in ICU this AM. AAO and at baseline mental status. Afebrile overnight with low normal BP readings, which is patient's baseline. Pressors started after central line placement with elevated BP readings thereafter. Stable BP this AM off pressors. States he feels fine but wants to go home. Explained to patient likelihood of bedside wound care rather than OR debridement due to elevated PT/PTT & low platelets. Understands and agrees with proposed course of treatment. OBJECTIVE: Vital Signs Period Temp Pulse Resp BP Sys/Hubbard Pulse Ox Last 24 Hr 97 F-98.6 F 85-116 20-27 79-175/50-144 GENERAL: Awake, alert, and fully oriented, in no acute distress. Resting comfortably in bed on NC. HEENT: Atraumatic, EOMI, PERRLA, No lymphadenopathy, dry membranes LUNGS: mild bibasilar crackles noted, no wheezing or accessory muscle use HEART: irregular, tachycardic, S1 and S2 without murmur, rub or gallop. ABDOMEN: Soft, nontender, not distended, normoactive bowel sounds EXTREMITIES: 1+ pulses, warm, well-perfused. No calf tenderness. +1 bilateral pitting edema in lower extremity NEUROLOGICAL: Cranial nerves II-XII intact. Normal speech. Gait not observed. PSYCHIATRIC: Cooperative. Good eye contact. Appropriate mood and affect. Able to answer questions and make requests. SKIN: multiple stage III decubitus to buttocks, shins and scrotum Laboratory Results - last 24 hr 08/03/16 08/03/16 08/03/16 13:37 13:37 20:45 WBC 15.3 H D RBC 3.78 L Hgb 10.6 L D Hct 35.9 D MCV 95.2 MCHC 29.4 L RDW 22.5 H Plt Count 54 L D MPV 10.3 Neutrophils % 83.6 H Lymphocytes % 7.1 L D Monocytes % 8.5 Eosinophils % 0.5 Basophils % 0.3 Hypochromic-Microcytic 2+ Poikilocytosis 1+ Microcytosis 1+ Macrocytosis 2+ Target Cells 1+ Tear Drop Cells Few Acanthocytes (Spur) 1+ Fragmented RBCs Few Puncture Site Left radial ABG pH 7.51 H D ABG pCO2 at Pt Temp 31.8 L D ABG pO2 at Pt Temp 82.6 ABG HCO3 25.1 ABG O2 Sat (Measured) 98.0 ABG O2 Content 13.2 L ABG Base Excess 2.6 H Frankie Test Positive O2 Delivery Device Bipap Oxygen Flow Rate 60% Vent Mode S/t Vent Rate 18 Mechanical Rate Y PEEP 5.0 Pressure Support Vent 18 Sodium 145 Potassium 3.3 L Chloride 101 Carbon Dioxide 29 Anion Gap 15 BUN 20 H Creatinine 2.7 H Creat Clearance w eGFR 23.09 Random Glucose 114 H Calcium 8.7 Total Bilirubin 1.8 H AST 12 L D ALT 27 D Alkaline Phosphatase 96 Total Protein 6.2 L Albumin 2.8 L D Active Medications Generic Name Dose Route Start Last Admin Trade Name Freq PRN Reason Stop Dose Admin Acetaminophen 325 mg 07/29/16 11:06 Tylenol - PO Q6H PRN FEVER Amiodarone HCl 400 mg 08/04/16 10:00 Cordarone - PO DAILY [facility] Brimonidine Tartrate 1 drop 07/29/16 22:00 08/03/16 23:02 Alphagan P 0.1% - OU 1 drop BID [facility] Administration Collagenase 1 applic 07/30/16 10:00 08/03/16 12:00 Santyl - TP 1 applic DAILY [facility] Administration IV Flush 4 ml 08/03/16 22:30 Triple Lumen Flush IVPUSH PRN PRN Protocol Dopamine HCl/Dextrose 250 mls @ 17.04 mls/hr 07/29/16 10:45 08/03/16 14:00 Dopamine 400 Mg/D5w - IVPB 17.04 mls/hr TITR [facility] Administration Protocol 5 MCG/KG/MIN Norepinephrine Bitartrate 4, 500 mls @ 37.5 mls/hr 08/03/16 21:45 08/04/16 01: 00 000 mcg/ Dextrose IV 5 mcg/min TITR [facility] Titration Protocol 5 MCG/MIN Levothyroxine Sodium 50 mcg 07/30/16 07:00 08/04/16 06:16 Synthroid - PO 50 mcg DAILY@0700 [facility] Administration Pantoprazole Sodium 40 mg 07/30/16 10:00 08/03/16 10:20 Protonix - PO 40 mg DAILY [facility] Administration ASSESSMENT/PLAN: 76 year old male with PMH of A-Fib, CAD, Systolic CHF, HTN/HLD, COPD, PUD, ESRD on HD, multiple lower back ulcers, hypothyroidism & DM who is sent to ICU s/p rapid response for hypotension. #Septic Shock, likely secondary to multiple decubitus ulcers -BP stable this morning (baseline is low-normal) off pressors -patient has severe systolic CHF, MAP >55 is acceptable (no need for pressors to be started if patient is at his baseline BP) -wound care as per vascular surgery (likely bedside rather than OR due to chronically elevated PT/PTT, low platelets & poor respiratory status) -collagenase administered to ulcers -wound culture ordered & pending -blood cultures (-) -ID Consult appreciated #ESRD on HD -HD tomorrow -avoid nephrotoxic meds -Nephrology consult appreciated #Atrial Fibrillation/CAD Hx/CHF Hx -Not a candidate for AC -on Amiodarone 400mg PO daily, as per cardiology -Lopressor 12.5mg BID, being held at present due to borderline hypotension -cardiology consult appreciated #COPD -Duonebs QIDR -Albuterol PRN -Saturating well on NC @4L presently -BiPap at night and as needed #Hypothyroidism -continue home meds: Synthroid 50mcg Prophylaxis -SCD's -PPI -cautious with IVF administration -monitor electrolytes -Dysphasia Pureed diet Dispo: Palliative Care consulted. Patient is DNR. Niece is HCP. Patient is estranged from his & states that he does not want her to visit him. informed while attempting to visit. Visit type - Emergency Visit Emergency Visit: Yes ED Registration Date: 07/24/16 Care time: The patient presented to the Emergency Department on the above date and was hospitalized for further evaluation of their emergent condition. - New Patient This patient is new to me today: No - Critical Care Critical Care patient: Yes Total Critical Care Time (in minutes): 48 Critical Care Statement: The care of this patient involved high complexity decision making to prevent further life threatening deterioration of the patient 's condition and/or to evalute & treat vital organ system(s) failure or risk of failure.
--- NOTE | 2016-08-04 08:47 | PN ---
Progress Note (short form) - Note Progress Note: Subjective Patient seen and examined in the ICU. Comfortable. No distress. On Levophed now. Off dopamine Remains hypotensive. BP readings showing very high BP by last night RN-- are likely not correct. Objective Last Vital Signs Temp Pulse Resp BP Pulse Ox 98.4 F 99 H 22 147/134 90 L 08/04/16 06:00 08/04/16 06:00 08/04/16 06:00 08/04/16 06:00 08/02/16 22:00 Laboratory Results - last 24 hr 08/03/16 08/03/16 08/03/16 13:37 13:37 20:45 WBC 15.3 H D RBC 3.78 L Hgb 10.6 L D Hct 35.9 D MCV 95.2 MCHC 29.4 L RDW 22.5 H Plt Count 54 L D MPV 10.3 Neutrophils % 83.6 H Lymphocytes % 7.1 L D Monocytes % 8.5 Eosinophils % 0.5 Basophils % 0.3 Hypochromic-Microcytic 2+ Poikilocytosis 1+ Microcytosis 1+ Macrocytosis 2+ Target Cells 1+ Tear Drop Cells Few Acanthocytes (Spur) 1+ Fragmented RBCs Few Puncture Site Left radial ABG pH 7.51 H D ABG pCO2 at Pt Temp 31.8 L D ABG pO2 at Pt Temp 82.6 ABG HCO3 25.1 ABG O2 Sat (Measured) 98.0 ABG O2 Content 13.2 L ABG Base Excess 2.6 H Frankie Test Positive O2 Delivery Device Bipap Oxygen Flow Rate 60% Vent Mode S/t Vent Rate 18 Mechanical Rate Y PEEP 5.0 Pressure Support Vent 18 Sodium 145 Potassium 3.3 L Chloride 101 Carbon Dioxide 29 Anion Gap 15 BUN 20 H Creatinine 2.7 H Creat Clearance w eGFR 23.09 Random Glucose 114 H Calcium 8.7 Total Bilirubin 1.8 H AST 12 L D ALT 27 D Alkaline Phosphatase 96 Total Protein 6.2 L Albumin 2.8 L D 08/04/16 08:30 WBC 14.7 H RBC 3.28 L Hgb 9.0 L D Hct 30.3 L D MCV 92.3 MCHC 29.9 L RDW 21.3 H Plt Count 58 L MPV 11.1 Neutrophils % 84.1 H Lymphocytes % 5.6 L D Monocytes % 9.2 Eosinophils % 0.6 Basophils % 0.5 Hypochromic-Microcytic Poikilocytosis Microcytosis Macrocytosis Target Cells Tear Drop Cells Acanthocytes (Spur) Fragmented RBCs Puncture Site ABG pH ABG pCO2 at Pt Temp ABG pO2 at Pt Temp ABG HCO3 ABG O2 Sat (Measured) ABG O2 Content ABG Base Excess Frankie Test O2 Delivery Device Oxygen Flow Rate Vent Mode Vent Rate Mechanical Rate PEEP Pressure Support Vent Sodium Potassium Chloride Carbon Dioxide Anion Gap BUN Creatinine Creat Clearance w eGFR Random Glucose Calcium Total Bilirubin AST ALT Alkaline Phosphatase Total Protein Albumin Constitutional: Yes: Awake and comfortable. Cardiovascular: Yes: Regular Rate and Rhythm Respiratory: Yes: Diminished at bases. Gastrointestinal: Yes: Normal Bowel Sounds, Soft. No: Tenderness Edema: No-- dressing present on both legs. Problem List - Problems (1) Congestive heart failure (CHF) Code(s): I50.9 - HEART FAILURE, UNSPECIFIED Qualifiers: Congestive heart failure type: systolic Congestive heart failure chronicity: chronic Qualified Code(s): I50.22 - Chronic systolic (congestive ) heart failure (2) DMII (diabetes mellitus, type 2) Code(s): E11.9 - TYPE 2 DIABETES MELLITUS WITHOUT COMPLICATIONS Qualifiers: Diabetes mellitus complication detail: with other kidney complication (3) HTN (hypertension) Code(s): I10 - ESSENTIAL (PRIMARY) HYPERTENSION Qualifiers: Hypertension type: essential hypertension Qualified Code(s): I10 - Essential (primary) hypertension (4) Pressure ulcer of lower extremity, stage 1 Code(s): L89.891 - PRESSURE ULCER OF OTHER SITE, STAGE 1 (5) Sepsis Code(s): A41.9 - SEPSIS, UNSPECIFIED ORGANISM Qualifiers: Sepsis type: sepsis due to unspecified organism Qualified Code(s): A41.9 - Sepsis, unspecified organism (6) Rapid atrial fibrillation Code(s): I48.91 - UNSPECIFIED ATRIAL FIBRILLATION (7) Functional quadriplegia Code(s): R53.2 - FUNCTIONAL QUADRIPLEGIA (8) End stage renal disease on dialysis Code(s): N18.6 - END STAGE RENAL DISEASE Z99.2 - DEPENDENCE ON RENAL DIALYSIS ASSESSMENT & PLAN: - Continue present care. - Off Antibiotics. - For OR this week for debridement. - Condition remains poor. - Patient is DNR. - Discussed with nursing staff - Off anticoagulation but INR is therapeutic - monitor H&H - CC Time 20 minutes - will follow Documentation prepared by Patricia Reed, acting as a medical assistant instructor for Oziel Casey MD.
[2016-08-04] MEDS ORDERED: PT OWN MED DRAWER 7, Y5N ONE (08:53)
[2016-08-04 09:35] LABS: BASOPHIL 0.5 % (0-2.0); EOSINOPHIL 0.6 % (0-4.5); MCH 27.6 pg (25.7-33.7); MCHC 29.9 g/dl (32.0-35.9); MEAN CELL VOLUME 92.3 fl (80-96); MEAN PLT VOLUME 11.1 fl (7.5-11.1); NEUTROPHILS 84.1 % (42.8-82.8); PLATELET COUNT 58 K/MM3 (134-434); RDW 21.3 % (11.9-15.9); WHITE BLOOD COUNT 14.7 K/mm3 (4.0-10.0)
[2016-08-04 10:02] LABS: ALBUMIN 2.4 g/dl (3.4-5.0); BILIRUBIN,TOTAL 1.8 mg/dL (0.2-1.0); CALCIUM 8.2 mg/dL (8.5-10.1); COCKROFT - GAULT 23.56; CREATININE 3.2 mg/dL (0.7-1.3); INR 2.03 (0.82-1.09); PROTHROMBIN TIME (PATIENT) 22.6 SEC (9.98-11.88); TOT PROT 5.4 g/dl (6.4-8.2)
[2016-08-04 10:05] LABS: ACTIVATED PTT 51.6 SECONDS (26.9-34.4)
[2016-08-04] MEDS: DOPAMINE 400 MG/D5W - 250 ML IVPB SCH (10:24)
[2016-08-04] MEDS: BRIMONIDINE TARTRATE 0.1% OPHTHALMIC 5 ML BOTTLE OU SCH ×2 (10:24→22:00)
[2016-08-04] MEDS: COLLAGENASE CLOSTRIDIUM HIST. 30 GRAMS TUBE TP SCH (10:24)
[2016-08-04] MEDS: PANTOPRAZOLE 40 MG TABLET (FP) PO SCH (10:25)
--- NOTE | 2016-08-04 13:14 | PN ---
Progress Note, Physician History of Present Illness: Pt seen and examined at bedside. He is awake and appears comfortable. - Current Medication List Current Medications: Active Medications Acetaminophen (Tylenol -) 325 mg PO Q6H PRN PRN Reason: FEVER Amiodarone HCl (Cordarone -) 400 mg PO DAILY [facility] Last Admin: 08/04/16 10:26 Dose: 400 mg Brimonidine Tartrate (Alphagan P 0.1% -) 1 drop OU BID [facility] Last Admin: 08/04/16 10:24 Dose: 1 drop Collagenase (Santyl -) 1 applic TP DAILY [facility] Last Admin: 08/04/16 10:24 Dose: 1 applic IV Flush (Triple Lumen Flush) 4 ml IVPUSH PRN PRN PRN Reason: Protocol Dopamine HCl/Dextrose (Dopamine 400 Mg/D5w -) 250 mls @ 17.04 mls/hr IVPB TITR [facility]; 5 MCG/KG/MIN PRN Reason: Protocol Last Admin: 08/04/16 10:24 Dose: Not Given Norepinephrine Bitartrate 4, (000 mcg/ Dextrose) 500 mls @ 37.5 mls/hr IV TITR [facility]; 5 MCG/MIN PRN Reason: Protocol Last Titration: 08/04/16 09:45 Dose: 0 mcg/min Levothyroxine Sodium (Synthroid -) 50 mcg PO DAILY@0700 [facility] Last Admin: 08/04/16 06:16 Dose: 50 mcg Pantoprazole Sodium (Protonix -) 40 mg PO DAILY [facility] Last Admin: 08/04/16 10:25 Dose: 40 mg - Objective Vital Signs: Vital Signs Temperature 97.8 F 08/04/16 12:00 Pulse Rate 100 H 08/04/16 12:00 Respiratory Rate 30 H 08/04/16 12:00 Blood Pressure 81/59 08/04/16 12:00 O2 Sat by Pulse Oximetry (%) 97 08/04/16 12:31 Constitutional: Yes: Calm Eyes: Yes: Conjunctiva Clear HENT: Yes: Atraumatic Cardiovascular: Yes: S1, S2 Respiratory: Yes: Diminished, On Nasal O2 Gastrointestinal: Yes: Soft Genitourinary: Yes: Incontinence Musculoskeletal: Yes: Muscle Weakness Edema: No Wound/Incision: Yes: Dressing Dry and Intact Neurological: Yes: Oriented Labs: CBC, BMP 08/04/16 08:30 08/04/16 08:30 INR, PTT INR 2.03 (0.82-1.09) H 08/04/16 08:30 - ....Imaging Chest X-ray: Report Reviewed Problem List - Problems (1) End stage renal disease on dialysis Code(s): N18.6 - END STAGE RENAL DISEASE Z99.2 - DEPENDENCE ON RENAL DIALYSIS (2) Hypotension Code(s): I95.9 - HYPOTENSION, UNSPECIFIED Qualifiers: Qualified Code(s): I95.9 - Hypotension, unspecified (3) Anemia Code(s): D64.9 - ANEMIA, UNSPECIFIED Qualifiers: Qualified Code(s): N18.9 - Chronic kidney disease, unspecified; D63.1 - Anemia in chronic kidney disease Assessment/Plan Current Medications Generic Name Dose Route Start Last Admin Trade Name Freq PRN Reason Stop Dose Admin Acetaminophen 325 mg 07/29/16 11:06 Tylenol - PO Q6H PRN FEVER Amiodarone HCl 400 mg 07/29/16 14:00 08/03/16 13:58 Cordarone - PO 400 mg TID [facility] Administration Brimonidine Tartrate 1 drop 07/29/16 22:00 08/03/16 10:20 Alphagan P 0.1% - OU 1 drop BID [facility] Administration Collagenase 1 applic 07/30/16 10:00 08/02/16 12:46 Santyl - TP 1 applic DAILY [facility] Administration Dopamine HCl/Dextrose 250 mls @ 17.04 mls/hr 07/29/16 10:45 08/03/16 06:44 Dopamine 400 Mg/D5w - IVPB 6 mcg/kg/min TITR [facility] Titration Protocol 5 MCG/KG/MIN Levothyroxine Sodium 50 mcg 07/30/16 07:00 08/03/16 06:37 Synthroid - PO 50 mcg DAILY@0700 [facility] Administration Pantoprazole Sodium 40 mg 07/30/16 10:00 08/03/16 10:20 Protonix - PO 40 mg DAILY [facility] Administration Impression 1. ESRD on HD 2. hypotension 3. cellulitis/abscess of back 4. CHF 5. hypothyroidism 6. hyperlipidemia 7. COPD 8. a-fib 9. pleural effusion 10. respiratory failure requiring bipap Plan - HD in am - cont current meds - consider trial of midodrine, will discuss with ICU team - monitor blood pressure - cont bipap as needed - cont ICU care - will follow - cont wound care - one to one feeds - pt has poor functional status Dr Martinez
--- NOTE | 2016-08-04 15:08 | PN ---
Progress Note, Physician Chief Complaint: tachycardia History of Present Illness: This is a 76 year old male with known CAD, afib, chronic systolic chf, htn, dm, ckd, hld, and ckd with multiple recent admissions for infection/sepsis admitted with hypotension and tachycardia in setting of sepsis. - Current Medication List Current Medications: Active Medications Acetaminophen (Tylenol -) 325 mg PO Q6H PRN PRN Reason: FEVER Amiodarone HCl (Cordarone -) 400 mg PO DAILY [facility] Last Admin: 08/04/16 10:26 Dose: 400 mg Brimonidine Tartrate (Alphagan P 0.1% -) 1 drop OU BID [facility] Last Admin: 08/04/16 10:24 Dose: 1 drop Collagenase (Santyl -) 1 applic TP DAILY [facility] Last Admin: 08/04/16 10:24 Dose: 1 applic Epoetin Wilson (Epogen -) 8,000 units IVPUSH ONCE ONE Stop: 08/05/16 13:19 IV Flush (Triple Lumen Flush) 4 ml IVPUSH PRN PRN PRN Reason: Protocol Dopamine HCl/Dextrose (Dopamine 400 Mg/D5w -) 250 mls @ 17.04 mls/hr IVPB TITR [facility]; 5 MCG/KG/MIN PRN Reason: Protocol Last Admin: 08/04/16 10:24 Dose: Not Given Norepinephrine Bitartrate 4, (000 mcg/ Dextrose) 500 mls @ 37.5 mls/hr IV TITR [facility]; 5 MCG/MIN PRN Reason: Protocol Last Titration: 08/04/16 09:45 Dose: 0 mcg/min Levothyroxine Sodium (Synthroid -) 50 mcg PO DAILY@0700 [facility] Last Admin: 08/04/16 06:16 Dose: 50 mcg Pantoprazole Sodium (Protonix -) 40 mg PO DAILY [facility] Last Admin: 08/04/16 10:25 Dose: 40 mg - Objective Vital Signs: Vital Signs Temperature 97.8 F 08/04/16 14:00 Pulse Rate 100 H 08/04/16 14:00 Respiratory Rate 30 H 08/04/16 14:00 Blood Pressure 84/70 08/04/16 14:00 O2 Sat by Pulse Oximetry (%) 97 08/04/16 12:31 Constitutional: Yes: No Distress Eyes: Yes: Conjunctiva Clear HENT: Yes: Atraumatic, Normocephalic Neck: Yes: Supple, Trachea Midline Cardiovascular: Yes: Tachycardia Respiratory: Yes: Poor Air Entry Gastrointestinal: Yes: Normal Bowel Sounds, Soft Edema: Yes Labs: CBC, BMP 08/04/16 08:30 08/04/16 08:30 INR, PTT INR 2.03 (0.82-1.09) H 08/04/16 08:30 Assessment/Plan 1) Sepsis/Hypotension -Hypotension due to infection. On dopamine for blood pressure support. IVFluid boluses antibiotics as per primary team and pressors as needed for hemodynamic support -B/l lower extremity wounds being followed by vascular. 2) Afib Ventricular rates controlled today. No av higinio blockers as BP would not tolerate. amiodarone to 400mg daily. AC is currently on hold. Replete lytes as needed 3) CHF No dyllan/arb or bblocker due to hypotension. IVF's as needed for hypotension along with pressures if needed. Prognosis is very poor. follow Goals of care.
--- NOTE | 2016-08-04 15:47 | PN ---
Teaching Attending Note Name of Resident: Irvin Harden ATTENDING PHYSICIAN STATEMENT I saw and evaluated the patient. I reviewed the resident's note and discussed the case with the resident. I agree with the resident's findings and plan as documented. SUBJECTIVE: Patient seen and examined in the ICU. Remains on VM O2. Currently on NE drip for hemodynamic support. For possible debridement today. Intake & Output 08/01/16 08/02/16 08/03/16 08/04/16 23:59 23:59 23:59 23:59 Intake Total 680 763 250 330 Output Total 0 0 Balance 680 763 250 330 Weight 190 lb 2 oz 188 lb 5 oz 192 lb 187 lb Last Vital Signs Temp Pulse Resp BP Pulse Ox 97.8 F 100 H 30 H 84/70 97 08/04/16 14:00 08/04/16 14:00 08/04/16 14:00 08/04/16 14:00 08/04/16 12:31 Active Medications Acetaminophen (Tylenol -) 325 mg PO Q6H PRN PRN Reason: FEVER Amiodarone HCl (Cordarone -) 400 mg PO DAILY [facility] Last Admin: 08/04/16 10:26 Dose: 400 mg Brimonidine Tartrate (Alphagan P 0.1% -) 1 drop OU BID [facility] Last Admin: 08/04/16 10:24 Dose: 1 drop Collagenase (Santyl -) 1 applic TP DAILY [facility] Last Admin: 08/04/16 10:24 Dose: 1 applic Epoetin Wilson (Epogen -) 8,000 units IVPUSH ONCE ONE Stop: 08/05/16 13:19 IV Flush (Triple Lumen Flush) 4 ml IVPUSH PRN PRN PRN Reason: Protocol Dopamine HCl/Dextrose (Dopamine 400 Mg/D5w -) 250 mls @ 17.04 mls/hr IVPB TITR [facility]; 5 MCG/KG/MIN PRN Reason: Protocol Last Admin: 08/04/16 10:24 Dose: Not Given Norepinephrine Bitartrate 4, (000 mcg/ Dextrose) 500 mls @ 37.5 mls/hr IV TITR [facility]; 5 MCG/MIN PRN Reason: Protocol Last Titration: 08/04/16 09:45 Dose: 0 mcg/min Levothyroxine Sodium (Synthroid -) 50 mcg PO DAILY@0700 [facility] Last Admin: 08/04/16 06:16 Dose: 50 mcg Pantoprazole Sodium (Protonix -) 40 mg PO DAILY [facility] Last Admin: 08/04/16 10:25 Dose: 40 mg Gen: mildly tachypneic on VM O2 Heart: RRR Lung: scattered rhonchi Abd: soft, nontender Ext: no edema, draining ulcers Laboratory Results - last 24 hr 08/03/16 08/04/16 08/04/16 20:45 08:30 08:30 WBC 14.7 H RBC 3.28 L Hgb 9.0 L D Hct 30.3 L D MCV 92.3 MCHC 29.9 L RDW 21.3 H Plt Count 58 L MPV 11.1 Neutrophils % 84.1 H Lymphocytes % 5.6 L D Monocytes % 9.2 Eosinophils % 0.6 Basophils % 0.5 INR PTT (Actin FS) Puncture Site Left radial ABG pH 7.51 H D ABG pCO2 at Pt Temp 31.8 L D ABG pO2 at Pt Temp 82.6 ABG HCO3 25.1 ABG O2 Sat (Measured) 98.0 ABG O2 Content 13.2 L ABG Base Excess 2.6 H Frankie Test Positive O2 Delivery Device Bipap Oxygen Flow Rate 60% Vent Mode S/t Vent Rate 18 Mechanical Rate Y PEEP 5.0 Pressure Support Vent 18 Sodium 143 Potassium 3.2 L Chloride 102 Carbon Dioxide 29 Anion Gap 12 BUN 25 H D Creatinine 3.2 H Creat Clearance w eGFR 18.98 Random Glucose 118 H Calcium 8.2 L Total Bilirubin 1.8 H AST 15 D ALT 22 Alkaline Phosphatase 88 Total Protein 5.4 L Albumin 2.4 L 08/04/16 08:30 WBC RBC Hgb Hct MCV MCHC RDW Plt Count MPV Neutrophils % Lymphocytes % Monocytes % Eosinophils % Basophils % INR 2.03 H PTT (Actin FS) 51.6 H Puncture Site ABG pH ABG pCO2 at Pt Temp ABG pO2 at Pt Temp ABG HCO3 ABG O2 Sat (Measured) ABG O2 Content ABG Base Excess Frankie Test O2 Delivery Device Oxygen Flow Rate Vent Mode Vent Rate Mechanical Rate PEEP Pressure Support Vent Sodium Potassium Chloride Carbon Dioxide Anion Gap BUN Creatinine Creat Clearance w eGFR Random Glucose Calcium Total Bilirubin AST ALT Alkaline Phosphatase Total Protein Albumin ASSESSMENT AND PLAN: Acute on Chronic Hypoxic and Hypercapneic Respiratory Failure Sacral Decubitus Ulcer Infection Septic Shock Lactic Acidosis ESRD on HD Severe LV Systolic Dysfunction Atrial Fibrillation CAD - antibiotics per ID - for possible debridement in OR - taper NE drip to maintain MAP > 50 to 55 - NIPPV as needed to assist in work of breathing - VM O2 as tolerated - O2 to keep SpO2 >90% - HD per renal - aspiration precautions - wound care - DVT prophylaxis - continue discussions regarding goals of care as pt chronically ill with prolonged multiple hospitalizations Dr Farrell Critical care time spent in reviewing chart, evaluating patient and formulating plan 35 min
[2016-08-04] MEDS: NOREPINEPHRINE BITARTRATE 4,000 MCG in DEXTROSE 5%-WATER - 496 ML IV SCH (23:39)
[2016-08-05] MEDS ORDERED: NOREPINEPHRINE BITARTRATE 4 MG/4 ML ML IV ONE (05:49)
[2016-08-05] MEDS: NOREPINEPHRINE BITARTRATE 4,000 MCG in DEXTROSE 5%-WATER - 496 ML IV SCH (05:50)
[2016-08-05 06:03] LABS: BASOPHIL 0.2 % (0-2.0); EOSINOPHIL 0.4 % (0-4.5); MCH 27.8 pg (25.7-33.7); MCHC 30.4 g/dl (32.0-35.9); MEAN CELL VOLUME 91.3 fl (80-96); MEAN PLT VOLUME 11.3 fl (7.5-11.1); NEUTROPHILS 87.2 % (42.8-82.8); PLATELET COUNT 58 K/MM3 (134-434); RDW 21.7 % (11.9-15.9); WHITE BLOOD COUNT 14.5 K/mm3 (4.0-10.0)
[2016-08-05] MEDS: LEVOTHYROXINE NA 50 MCG TABLET (FP) PO SCH (06:20)
[2016-08-05 06:21] LABS: INR 1.84 (0.82-1.09); PROTHROMBIN TIME (PATIENT) 20.5 SEC (9.98-11.88)
[2016-08-05 06:59] LABS: CALCIUM 8.2 mg/dL (8.5-10.1); COCKROFT - GAULT 19.6; CREATININE 3.8 mg/dL (0.7-1.3)
[2016-08-05 07:41] LABS: ARTERIAL BLOOD GAS BASE EXCESS 2.6 meq/l (-2-2); ARTERIAL BLOOD GAS HCO3 26.6 meq/L (22-26); ARTERIAL BLOOD GAS pH 7.43 (7.35-7.45)
[2016-08-05 07:42] LABS: ALLENS TEST POSITIVE; ART PUNCT SITE RIGHT RADIAL; LPM/O2% 70; PT. ON O2? YES; TYPE OF O2 BIPAP; VENT RATE 18; VT/PRESS EPAP 5
[2016-08-05] MEDS ORDERED: EPOETIN ALFA 6,000 UNIT, EPOETIN ALFA 2,000 UNIT IVPUSH ONE (10:00)
--- NOTE | 2016-08-05 10:03 | PN ---
Progress Note, Physician Chief Complaint: Drowsy BP low getting HD now No complaints - Current Medication List Current Medications: Active Medications Acetaminophen (Tylenol -) 325 mg PO Q6H PRN PRN Reason: FEVER Amiodarone HCl (Cordarone -) 400 mg PO DAILY [facility] Last Admin: 08/04/16 10:26 Dose: 400 mg Brimonidine Tartrate (Alphagan P 0.1% -) 1 drop OU BID [facility] Last Admin: 08/04/16 22:00 Dose: 1 drop Collagenase (Santyl -) 1 applic TP DAILY [facility] Last Admin: 08/04/16 10:24 Dose: 1 applic IV Flush (Triple Lumen Flush) 4 ml IVPUSH PRN PRN PRN Reason: Protocol Dopamine HCl/Dextrose (Dopamine 400 Mg/D5w -) 250 mls @ 17.04 mls/hr IVPB TITR [facility]; 5 MCG/KG/MIN PRN Reason: Protocol Last Admin: 08/04/16 10:24 Dose: Not Given Norepinephrine Bitartrate 4, (000 mcg/ Dextrose) 500 mls @ 37.5 mls/hr IV TITR [facility]; 5 MCG/MIN PRN Reason: Protocol Last Titration: 08/05/16 08:17 Dose: 5 mcg/min Levothyroxine Sodium (Synthroid -) 50 mcg PO DAILY@0700 [facility] Last Admin: 08/05/16 06:20 Dose: 50 mcg Pantoprazole Sodium (Protonix -) 40 mg PO DAILY [facility] Last Admin: 08/04/16 10:25 Dose: 40 mg - Objective Vital Signs: Vital Signs Temperature 98.2 F 08/05/16 06:00 Pulse Rate 91 H 08/05/16 09:25 Respiratory Rate 25 H 08/05/16 09:25 Blood Pressure 71/56 08/05/16 09:25 O2 Sat by Pulse Oximetry (%) 99 08/04/16 20:51 Constitutional: Yes: No Distress Cardiovascular: Yes: Pulse Irregular Respiratory: Yes: Diminished Gastrointestinal: Yes: Normal Bowel Sounds, Soft. No: Distention, Tenderness Extremities: Yes: Other (legs dressing in place) Edema: No Labs: CBC, BMP 08/05/16 05:45 08/05/16 05:45 INR, PTT INR 1.84 (0.82-1.09) H 08/05/16 05:45 Problem List - Problems (1) Congestive heart failure (CHF) Code(s): I50.9 - HEART FAILURE, UNSPECIFIED Qualifiers: Qualified Code(s): I50.22 - Chronic systolic (congestive) heart failure (2) DMII (diabetes mellitus, type 2) Code(s): E11.9 - TYPE 2 DIABETES MELLITUS WITHOUT COMPLICATIONS (3) HTN (hypertension) Code(s): I10 - ESSENTIAL (PRIMARY) HYPERTENSION Qualifiers: Qualified Code(s): I10 - Essential (primary) hypertension (4) Pressure ulcer of lower extremity, stage 1 Code(s): L89.891 - PRESSURE ULCER OF OTHER SITE, STAGE 1 (5) Sepsis Code(s): A41.9 - SEPSIS, UNSPECIFIED ORGANISM Qualifiers: Qualified Code(s): A41.9 - Sepsis, unspecified organism (6) Rapid atrial fibrillation Code(s): I48.91 - UNSPECIFIED ATRIAL FIBRILLATION (7) Functional quadriplegia Code(s): R53.2 - FUNCTIONAL QUADRIPLEGIA (8) End stage renal disease on dialysis Code(s): N18.6 - END STAGE RENAL DISEASE Z99.2 - DEPENDENCE ON RENAL DIALYSIS Assessment/Plan PLAN SEPSIS antibiotics dc blood cultures negative likely due to wounds --for debridement today platelets low and INR elevated-- will get Vit K and one unit of platelets today prior to debridement HYPOTENSION baseline blood pressure is on the lower side, monitor blood pressure. on Dopamine and Norepinephrine infusion drowsy today though end-stage renal disease on dialysis HD per Renal elevated troponins, rapid A. fib Not a candidate for anticoagulation rate control with Amiodarone CHF systolic heart failure HD per renal clinically not in respiratory distress usually it is difficult to get O2 sat reading for this pt-- ABG noted Not on AceI or ARB due to hypotension advanced directives patient is DNR BIPAP as needed ICU monitoring
[2016-08-05] MEDS ORDERED: PHYTONADIONE 10 MG/1 ML AMP SQ ONE (10:41)
[2016-08-05] MEDS: PANTOPRAZOLE 40 MG TABLET (FP) PO SCH (11:09)
[2016-08-05] MEDS: AMIODARONE HCL 200 MG TABLET (FP) PO SCH (11:09)
[2016-08-05] MEDS: COLLAGENASE CLOSTRIDIUM HIST. 30 GRAMS TUBE TP SCH (11:10)
[2016-08-05] MEDS: DOPAMINE 400 MG/D5W - 250 ML IVPB SCH (11:10)
[2016-08-05] MEDS: BRIMONIDINE TARTRATE 0.1% OPHTHALMIC 5 ML BOTTLE OU SCH ×2 (11:35→21:04)
--- NOTE | 2016-08-05 12:03 | PN ---
Physical Exam: SUBJECTIVE: Patient seen and examined at bedside this AM. AAO and at mental status baseline. Afebrile overnight with low BP, but not very far from baseline. Pressors restarted, will wean off after HD. States legs hurt, but only very mildly. Denies difficulty breathing or shortness of breath. Denies lightheadedness or dizziness, even during hypotensive episodes overnight. OBJECTIVE: Vital Signs Period Temp Pulse Resp BP Sys/Hubbard Pulse Ox Last 24 Hr 97.8 F-98.4 F 72-106 16-30 58-96/34-76 96-99 GENERAL: Awake, alert, and fully oriented, in no acute distress. Resting comfortably in bed on NC. HEENT: Atraumatic, EOMI, PERRLA, No lymphadenopathy, dry membranes LUNGS: mild bibasilar crackles noted, no wheezing or accessory muscle use HEART: irregular, tachycardic, S1 and S2 without murmur, rub or gallop. ABDOMEN: Soft, nontender, not distended, normoactive bowel sounds EXTREMITIES: 1+ pulses, warm, well-perfused. No calf tenderness. +1 bilateral pitting edema in lower extremity NEUROLOGICAL: Cranial nerves II-XII intact. Normal speech. Gait not observed. PSYCHIATRIC: Cooperative. Good eye contact. Appropriate mood and affect. Able to answer questions and make requests. SKIN: multiple stage III decubitus to buttocks, shins and scrotum Laboratory Results - last 24 hr 08/05/16 08/05/16 08/05/16 05:45 05:45 05:45 WBC 14.5 H RBC 3.00 L Hgb 8.3 L Hct 27.4 L MCV 91.3 MCHC 30.4 L RDW 21.7 H Plt Count 58 L MPV 11.3 H Neutrophils % 87.2 H Lymphocytes % 5.6 L Monocytes % 6.6 Eosinophils % 0.4 Basophils % 0.2 INR 1.84 H PTT (Actin FS) 48.0 H Puncture Site ABG pH ABG pCO2 at Pt Temp ABG pO2 at Pt Temp ABG HCO3 ABG O2 Sat (Measured) ABG O2 Content ABG Base Excess Frankie Test O2 Delivery Device Oxygen Flow Rate Vent Mode Vent Rate Pressure Support Vent Sodium 145 Potassium 3.5 Chloride 103 Carbon Dioxide 28 Anion Gap 14 BUN 31 H D Creatinine 3.8 H Random Glucose 157 H D Calcium 8.2 L 08/05/16 07:20 WBC RBC Hgb Hct MCV MCHC RDW Plt Count MPV Neutrophils % Lymphocytes % Monocytes % Eosinophils % Basophils % INR PTT (Actin FS) Puncture Site Right radial ABG pH 7.43 ABG pCO2 at Pt Temp 40.6 D ABG pO2 at Pt Temp 173.0 H* D ABG HCO3 26.6 H ABG O2 Sat (Measured) 100.0 H* ABG O2 Content 12.6 L ABG Base Excess 2.6 H Frankie Test Positive O2 Delivery Device Bipap Oxygen Flow Rate 70 Vent Mode Ipap 18 Vent Rate 18 Pressure Support Vent Epap 5 Sodium Potassium Chloride Carbon Dioxide Anion Gap BUN Creatinine Random Glucose Calcium Active Medications Generic Name Dose Route Start Last Admin Trade Name Freq PRN Reason Stop Dose Admin Acetaminophen 325 mg 07/29/16 11:06 Tylenol - PO Q6H PRN FEVER Amiodarone HCl 400 mg 08/04/16 10:00 08/05/16 11:09 Cordarone - PO 400 mg DAILY [facility] Administration Brimonidine Tartrate 1 drop 07/29/16 22:00 08/05/16 11:35 Alphagan P 0.1% - OU 1 drop BID [facility] Administration Collagenase 1 applic 07/30/16 10:00 08/05/16 11:10 Santyl - TP Not Given DAILY [facility] IV Flush 4 ml 08/03/16 22:30 Triple Lumen Flush IVPUSH PRN PRN Protocol Dopamine HCl/Dextrose 250 mls @ 17.04 mls/hr 07/29/16 10:45 08/05/16 11:10 Dopamine 400 Mg/D5w - IVPB Not Given TITR [facility] Protocol 5 MCG/KG/MIN Norepinephrine Bitartrate 4, 500 mls @ 37.5 mls/hr 08/03/16 21:45 08/05/16 08: 17 000 mcg/ Dextrose IV 5 mcg/min TITR [facility] Titration Protocol 5 MCG/MIN Levothyroxine Sodium 50 mcg 07/30/16 07:00 08/05/16 06:20 Synthroid - PO 50 mcg DAILY@0700 [facility] Administration Pantoprazole Sodium 40 mg 07/30/16 10:00 08/05/16 11:09 Protonix - PO 40 mg DAILY [facility] Administration ASSESSMENT/PLAN: 76 year old male with PMH of A-Fib, CAD, Systolic CHF, HTN/HLD, COPD, PUD, ESRD on HD, multiple lower back ulcers, hypothyroidism & DM who is sent to ICU s/p rapid response for hypotension. #Septic Shock, likely secondary to multiple decubitus ulcers -pressors restarted last night, will wean off after HD today -patient has severe systolic CHF, MAP >55 is acceptable (no need for pressors to be restarted if patient is at his baseline BP) -wound care as per vascular surgery (likely bedside rather than OR due to chronically elevated PT/PTT, low platelets & poor respiratory status) -given 1unit platelets & Vitamin K earlier today in anticipation of procedure -collagenase administered to ulcers -wound culture ordered & pending -blood cultures (-) -ID Consult appreciated #ESRD on HD -HD today -avoid nephrotoxic meds -Nephrology consult appreciated #Atrial Fibrillation/CAD Hx/CHF Hx -Not a candidate for AC -on Amiodarone 400mg PO daily, as per cardiology -Lopressor 12.5mg BID, being held at present due to borderline hypotension -cardiology consult appreciated #COPD -Duonebs QIDR -Albuterol PRN -Saturating well on NC @4L presently -BiPap at night and as needed #Hypothyroidism -continue home meds: Synthroid 50mcg Prophylaxis -SCD's -PPI -cautious with IVF administration -monitor electrolytes -Dysphasia Pureed diet Dispo: Palliative Care consulted. Patient is DNR. Niece is HCP. Patient is estranged from his & states that he does not want her to visit him. informed while attempting to visit. Visit type - Emergency Visit Emergency Visit: Yes ED Registration Date: 07/24/16 Care time: The patient presented to the Emergency Department on the above date and was hospitalized for further evaluation of their emergent condition. - New Patient This patient is new to me today: No - Critical Care Critical Care patient: Yes Total Critical Care Time (in minutes): 45 Critical Care Statement: The care of this patient involved high complexity decision making to prevent further life threatening deterioration of the patient 's condition and/or to evalute & treat vital organ system(s) failure or risk of failure.
[2016-08-05] MEDS ORDERED: EPOETIN ALFA 2,000 UNITS/1 ML VIAL IVPUSH ONE (13:18)
--- NOTE | 2016-08-05 13:19 | PN ---
Teaching Attending Note Name of Resident: Irvin Harden ATTENDING PHYSICIAN STATEMENT I saw and evaluated the patient. I reviewed the resident's note and discussed the case with the resident. I agree with the resident's findings and plan as documented. SUBJECTIVE: Patient seen and examined in the ICU. Remains on VM O2. Remains on 4 mcq NE drip for hemodynamic support. For possible debridement today. Intake & Output 08/02/16 08/03/16 08/04/16 08/05/16 23:59 23:59 23:59 23:59 Intake Total 763 250 550 45 Output Total 0 Balance 763 250 550 45 Weight 188 lb 5 oz 192 lb 187 lb 185 lb 9 oz Last Vital Signs Temp Pulse Resp BP Pulse Ox 98 F 88 24 84/58 96 08/05/16 10:00 08/05/16 12:00 08/05/16 12:00 08/05/16 12:00 08/05/16 10:04 Active Medications Acetaminophen (Tylenol -) 325 mg PO Q6H PRN PRN Reason: FEVER Amiodarone HCl (Cordarone -) 400 mg PO DAILY [facility] Last Admin: 08/05/16 11:09 Dose: 400 mg Brimonidine Tartrate (Alphagan P 0.1% -) 1 drop OU BID [facility] Last Admin: 08/05/16 11:35 Dose: 1 drop Collagenase (Santyl -) 1 applic TP DAILY [facility] Last Admin: 08/05/16 11:10 Dose: Not Given IV Flush (Triple Lumen Flush) 4 ml IVPUSH PRN PRN PRN Reason: Protocol Dopamine HCl/Dextrose (Dopamine 400 Mg/D5w -) 250 mls @ 17.04 mls/hr IVPB TITR [facility]; 5 MCG/KG/MIN PRN Reason: Protocol Last Admin: 08/05/16 11:10 Dose: Not Given Norepinephrine Bitartrate 4, (000 mcg/ Dextrose) 500 mls @ 37.5 mls/hr IV TITR [facility]; 5 MCG/MIN PRN Reason: Protocol Last Titration: 08/05/16 08:17 Dose: 5 mcg/min Levothyroxine Sodium (Synthroid -) 50 mcg PO DAILY@0700 [facility] Last Admin: 08/05/16 06:20 Dose: 50 mcg Pantoprazole Sodium (Protonix -) 40 mg PO DAILY [facility] Last Admin: 08/05/16 11:09 Dose: 40 mg Gen: Awake and responsive, mildly tachypneic on VM O2 Heart: RRR Lung: scattered rhonchi Abd: soft, nontender Ext: no edema, draining ulcers Laboratory Results - last 24 hr 08/05/16 08/05/16 08/05/16 05:45 05:45 05:45 WBC 14.5 H RBC 3.00 L Hgb 8.3 L Hct 27.4 L MCV 91.3 MCHC 30.4 L RDW 21.7 H Plt Count 58 L MPV 11.3 H Neutrophils % 87.2 H Lymphocytes % 5.6 L Monocytes % 6.6 Eosinophils % 0.4 Basophils % 0.2 INR 1.84 H PTT (Actin FS) 48.0 H Puncture Site ABG pH ABG pCO2 at Pt Temp ABG pO2 at Pt Temp ABG HCO3 ABG O2 Sat (Measured) ABG O2 Content ABG Base Excess Frankie Test O2 Delivery Device Oxygen Flow Rate Vent Mode Vent Rate Pressure Support Vent Sodium 145 Potassium 3.5 Chloride 103 Carbon Dioxide 28 Anion Gap 14 BUN 31 H D Creatinine 3.8 H Random Glucose 157 H D Calcium 8.2 L 08/05/16 07:20 WBC RBC Hgb Hct MCV MCHC RDW Plt Count MPV Neutrophils % Lymphocytes % Monocytes % Eosinophils % Basophils % INR PTT (Actin FS) Puncture Site Right radial ABG pH 7.43 ABG pCO2 at Pt Temp 40.6 D ABG pO2 at Pt Temp 173.0 H* D ABG HCO3 26.6 H ABG O2 Sat (Measured) 100.0 H* ABG O2 Content 12.6 L ABG Base Excess 2.6 H Frankie Test Positive O2 Delivery Device Bipap Oxygen Flow Rate 70 Vent Mode Ipap 18 Vent Rate 18 Pressure Support Vent Epap 5 Sodium Potassium Chloride Carbon Dioxide Anion Gap BUN Creatinine Random Glucose Calcium ASSESSMENT AND PLAN: Acute on Chronic Hypoxic and Hypercapneic Respiratory Failure Sacral Decubitus Ulcer Infection Septic Shock Lactic Acidosis ESRD on HD Severe LV Systolic Dysfunction Atrial Fibrillation CAD - antibiotics per ID - for possible debridement today - taper NE drip to maintain MAP > 50 to 55 - NIPPV as needed to assist in work of breathing - VM O2 as tolerated - O2 to keep SpO2 >90% - HD per renal - aspiration precautions - wound care - DVT prophylaxis - continue discussions regarding goals of care as pt chronically ill with prolonged multiple hospitalizations Dr Farrell Critical care time spent in reviewing chart, evaluating patient and formulating plan 35 min
--- NOTE | 2016-08-05 14:43 | PN ---
Progress Note, Physician Chief Complaint: tachycardia persists. comfortable History of Present Illness: This is a 76 year old male with known CAD, afib, chronic systolic chf, htn, dm, ckd, hld, and ckd with multiple recent admissions for infection/sepsis admitted with hypotension and tachycardia in setting of sepsis. He is awaiting debridement of foot ulcers. - Current Medication List Current Medications: Active Medications Acetaminophen (Tylenol -) 325 mg PO Q6H PRN PRN Reason: FEVER Amiodarone HCl (Cordarone -) 400 mg PO DAILY [facility] Last Admin: 08/05/16 11:09 Dose: 400 mg Brimonidine Tartrate (Alphagan P 0.1% -) 1 drop OU BID [facility] Last Admin: 08/05/16 11:35 Dose: 1 drop Collagenase (Santyl -) 1 applic TP DAILY [facility] Last Admin: 08/05/16 11:10 Dose: Not Given IV Flush (Triple Lumen Flush) 4 ml IVPUSH PRN PRN PRN Reason: Protocol Dopamine HCl/Dextrose (Dopamine 400 Mg/D5w -) 250 mls @ 17.04 mls/hr IVPB TITR [facility]; 5 MCG/KG/MIN PRN Reason: Protocol Last Admin: 08/05/16 11:10 Dose: Not Given Norepinephrine Bitartrate 4, (000 mcg/ Dextrose) 500 mls @ 37.5 mls/hr IV TITR [facility]; 5 MCG/MIN PRN Reason: Protocol Last Titration: 08/05/16 08:17 Dose: 5 mcg/min Levothyroxine Sodium (Synthroid -) 50 mcg PO DAILY@0700 [facility] Last Admin: 08/05/16 06:20 Dose: 50 mcg Pantoprazole Sodium (Protonix -) 40 mg PO DAILY [facility] Last Admin: 08/05/16 11:09 Dose: 40 mg - Objective Vital Signs: Vital Signs Temperature 98.3 F 08/05/16 14:00 Pulse Rate 88 08/05/16 14:00 Respiratory Rate 24 08/05/16 14:00 Blood Pressure 64/53 08/05/16 14:00 O2 Sat by Pulse Oximetry (%) 96 08/05/16 10:04 Constitutional: Yes: No Distress, Calm Eyes: Yes: Conjunctiva Clear HENT: Yes: Atraumatic, Normocephalic Neck: Yes: Supple, Trachea Midline Cardiovascular: Yes: Tachycardia Respiratory: Yes: Diminished Gastrointestinal: Yes: Normal Bowel Sounds, Soft Extremities: Yes: Other (foot ulcers) Labs: CBC, BMP 08/05/16 05:45 08/05/16 05:45 INR, PTT INR 1.84 (0.82-1.09) H 08/05/16 05:45 Assessment/Plan 1) Sepsis/Hypotension -Hypotension due to infection. On pressors for blood pressure support. IVFluid boluses as needed. antibiotics as per primary team and pressors as needed for hemodynamic support -B/l lower extremity wounds being followed by vascular. There are no direct cardiac contraindications to debridement. He is a high risk patient for any procedure, but the benefits outweigh the risks. 2) Afib Ventricular rates controlled today. No av higinio blockers as BP would not tolerate. amiodarone to 400mg daily. AC is currently on hold. Replete lytes as needed 3) CHF No dyllan/arb or bblocker due to hypotension. IVF's as needed for hypotension along with pressures if needed. Prognosis is very poor. follow Goals of care.
--- NOTE | 2016-08-05 15:20 | PN ---
Progress Note, Physician History of Present Illness: Pt seen and examined at bedside. He remains in the ICU. - Current Medication List Current Medications: Active Medications Acetaminophen (Tylenol -) 325 mg PO Q6H PRN PRN Reason: FEVER Amiodarone HCl (Cordarone -) 400 mg PO DAILY [facility] Last Admin: 08/05/16 11:09 Dose: 400 mg Brimonidine Tartrate (Alphagan P 0.1% -) 1 drop OU BID [facility] Last Admin: 08/05/16 11:35 Dose: 1 drop Collagenase (Santyl -) 1 applic TP DAILY [facility] Last Admin: 08/05/16 11:10 Dose: Not Given IV Flush (Triple Lumen Flush) 4 ml IVPUSH PRN PRN PRN Reason: Protocol Dopamine HCl/Dextrose (Dopamine 400 Mg/D5w -) 250 mls @ 17.04 mls/hr IVPB TITR [facility]; 5 MCG/KG/MIN PRN Reason: Protocol Last Admin: 08/05/16 11:10 Dose: Not Given Norepinephrine Bitartrate 4, (000 mcg/ Dextrose) 500 mls @ 37.5 mls/hr IV TITR [facility]; 5 MCG/MIN PRN Reason: Protocol Last Titration: 08/05/16 08:17 Dose: 5 mcg/min Levothyroxine Sodium (Synthroid -) 50 mcg PO DAILY@0700 [facility] Last Admin: 08/05/16 06:20 Dose: 50 mcg Pantoprazole Sodium (Protonix -) 40 mg PO DAILY [facility] Last Admin: 08/05/16 11:09 Dose: 40 mg - Objective Vital Signs: Vital Signs Temperature 98.3 F 08/05/16 14:00 Pulse Rate 88 08/05/16 14:00 Respiratory Rate 24 08/05/16 14:00 Blood Pressure 64/53 08/05/16 14:00 O2 Sat by Pulse Oximetry (%) 96 08/05/16 10:04 Constitutional: Yes: Calm Eyes: Yes: Conjunctiva Clear HENT: Yes: Atraumatic Neck: Yes: Supple Cardiovascular: Yes: S1, S2 Respiratory: Yes: On Nasal O2 Gastrointestinal: Yes: Soft Genitourinary: Yes: Incontinence Musculoskeletal: Yes: Muscle Weakness Edema: No Neurological: Yes: Oriented Labs: CBC, BMP 08/05/16 05:45 08/05/16 05:45 INR, PTT INR 1.84 (0.82-1.09) H 08/05/16 05:45 Problem List - Problems (1) End stage renal disease on dialysis Code(s): N18.6 - END STAGE RENAL DISEASE Z99.2 - DEPENDENCE ON RENAL DIALYSIS (2) Hypotension Code(s): I95.9 - HYPOTENSION, UNSPECIFIED Qualifiers: Qualified Code(s): I95.9 - Hypotension, unspecified (3) Anemia Code(s): D64.9 - ANEMIA, UNSPECIFIED Qualifiers: Qualified Code(s): N18.9 - Chronic kidney disease, unspecified; D63.1 - Anemia in chronic kidney disease Assessment/Plan Current Medications Generic Name Dose Route Start Last Admin Trade Name Freq PRN Reason Stop Dose Admin Acetaminophen 325 mg 07/29/16 11:06 Tylenol - PO Q6H PRN FEVER Amiodarone HCl 400 mg 08/04/16 10:00 08/05/16 11:09 Cordarone - PO 400 mg DAILY [facility] Administration Brimonidine Tartrate 1 drop 07/29/16 22:00 08/05/16 11:35 Alphagan P 0.1% - OU 1 drop BID [facility] Administration Collagenase 1 applic 07/30/16 10:00 08/05/16 11:10 Santyl - TP Not Given DAILY [facility] IV Flush 4 ml 08/03/16 22:30 Triple Lumen Flush IVPUSH PRN PRN Protocol Dopamine HCl/Dextrose 250 mls @ 17.04 mls/hr 07/29/16 10:45 08/05/16 11:10 Dopamine 400 Mg/D5w - IVPB Not Given TITR [facility] Protocol 5 MCG/KG/MIN Norepinephrine Bitartrate 4, 500 mls @ 37.5 mls/hr 08/03/16 21:45 08/05/16 08: 17 000 mcg/ Dextrose IV 5 mcg/min TITR [facility] Titration Protocol 5 MCG/MIN Levothyroxine Sodium 50 mcg 07/30/16 07:00 08/05/16 06:20 Synthroid - PO 50 mcg DAILY@0700 [facility] Administration Pantoprazole Sodium 40 mg 07/30/16 10:00 08/05/16 11:09 Protonix - PO 40 mg DAILY [facility] Administration Impression 1. ESRD on HD 2. hypotension 3. cellulitis/abscess of back 4. CHF 5. hypothyroidism 6. hyperlipidemia 7. COPD 8. a-fib 9. pleural effusion 10. respiratory failure requiring bipap Plan - pt tolerated HD - pt now on norepi as well - likely bedside wound debridement - monitor blood pressure - cont bipap as needed - cont ICU care - will follow - one to one feeds Dr Martinez
[2016-08-06] MEDS ORDERED: NOREPINEPHRINE BITARTRATE 4 MG/4 ML ML IV ONE ×2 (00:30→17:59)
[2016-08-06] MEDS: NOREPINEPHRINE BITARTRATE 4,000 MCG in DEXTROSE 5%-WATER - 496 ML IV SCH ×2 (01:03→02:00)
[2016-08-06 05:45] LABS: BASOPHIL 0.5 % (0-2.0); EOSINOPHIL 0.8 % (0-4.5); MCH 27.3 pg (25.7-33.7); MCHC 29.3 g/dl (32.0-35.9); MEAN CELL VOLUME 93.2 fl (80-96); MEAN PLT VOLUME 9.9 fl (7.5-11.1); NEUTROPHILS 81.5 % (42.8-82.8); PLATELET COUNT 83 K/MM3 (134-434); RDW 21.7 % (11.9-15.9); WHITE BLOOD COUNT 14.5 K/mm3 (4.0-10.0)
[2016-08-06 05:59] LABS: INR 1.65 (0.82-1.09); PROTHROMBIN TIME (PATIENT) 18.3 SEC (9.98-11.88)
[2016-08-06 06:12] LABS: ALBUMIN 2.2 g/dl (3.4-5.0); CALCIUM 8.1 mg/dL (8.5-10.1)
[2016-08-06 06:14] LABS: TOT PROT 5.5 g/dl (6.4-8.2)
[2016-08-06] MEDS: LEVOTHYROXINE NA 50 MCG TABLET (FP) PO SCH (06:20)
[2016-08-06] MEDS: BRIMONIDINE TARTRATE 0.1% OPHTHALMIC 5 ML BOTTLE OU SCH ×2 (07:19→09:09)
[2016-08-06 08:00] LABS: ARTERIAL BLOOD GAS BASE EXCESS 3.1 meq/l (-2-2); ARTERIAL BLOOD GAS pH 7.45 (7.35-7.45)
[2016-08-06 08:04] LABS: ALLENS TEST POSITIVE; ART PUNCT SITE LEFT RADIAL; LPM/O2% 50; PT. ON O2? YES
[2016-08-06 08:05] LABS: TYPE OF O2 BIPAP 18/5; VENT RATE 18
[2016-08-06 08:06] LABS: ARTERIAL BLOOD GAS HCO3 26.8 meq/L (22-26)
[2016-08-06] MEDS ORDERED: PHYTONADIONE 10 MG/1 ML AMP SQ ONE (08:45)
--- NOTE | 2016-08-06 08:49 | PN ---
Physical Exam: SUBJECTIVE: Patient seen and examined at bedside this AM in ICU. AAO and at mental status baseline. Saturating well on NC. States he feels "pretty good". Understands necessity of debridement & agrees with proposed plan of treatment. OBJECTIVE: Vital Signs Period Temp Pulse Resp BP Sys/Hubbard Pulse Ox Last 24 Hr 98 F-98.7 F 82-103 14-30 64-115/38-91 96-100 GENERAL: Awake, alert, and fully oriented, in no acute distress. Resting comfortably in bed on NC. HEENT: Atraumatic, EOMI, PERRLA, No lymphadenopathy, dry membranes LUNGS: mild bibasilar crackles noted, no wheezing or accessory muscle use HEART: irregular, tachycardic, S1 and S2 without murmur, rub or gallop. ABDOMEN: Soft, nontender, not distended, normoactive bowel sounds EXTREMITIES: 1+ pulses, warm, well-perfused. No calf tenderness. +1 bilateral pitting edema in lower extremity NEUROLOGICAL: Cranial nerves II-XII intact. Normal speech. Gait not observed. PSYCHIATRIC: Cooperative. Good eye contact. Appropriate mood and affect. Able to answer questions and make requests. SKIN: multiple stage III decubitus to buttocks, shins and scrotum Laboratory Results - last 24 hr 08/06/16 08/06/16 08/06/16 05:25 05:25 05:25 WBC 14.5 H RBC 3.07 L Hgb 8.4 L Hct 28.6 L MCV 93.2 MCHC 29.3 L RDW 21.7 H Plt Count 83 L D MPV 9.9 D Neutrophils % 81.5 Lymphocytes % 7.7 L D Monocytes % 9.5 Eosinophils % 0.8 D Basophils % 0.5 INR 1.65 H PTT (Actin FS) 45.0 H Puncture Site ABG pH ABG pCO2 at Pt Temp ABG pO2 at Pt Temp ABG HCO3 ABG O2 Sat (Measured) ABG O2 Content ABG Base Excess Frankie Test O2 Delivery Device Oxygen Flow Rate Vent Rate PEEP Sodium 142 Potassium 3.6 Chloride 101 Carbon Dioxide 28 Anion Gap 13 BUN 23 H D Creatinine 3.0 H D Creat Clearance w eGFR 20.45 Random Glucose 171 H Calcium 8.1 L Total Bilirubin 2.0 H AST 10 L D ALT 20 Alkaline Phosphatase 97 Total Protein 5.5 L Albumin 2.2 L 05/24/17 07:15 WBC RBC Hgb Hct MCV MCHC RDW Plt Count MPV Neutrophils % Lymphocytes % Monocytes % Eosinophils % Basophils % INR PTT (Actin FS) Puncture Site Left radial ABG pH 7.45 ABG pCO2 at Pt Temp 39.0 ABG pO2 at Pt Temp 180.0 H* ABG HCO3 26.8 H ABG O2 Sat (Measured) 100.0 H* ABG O2 Content 12.6 L ABG Base Excess 3.1 H Frankie Test Positive O2 Delivery Device Bipap 18/5 Oxygen Flow Rate 50 Vent Rate 18 PEEP 0.0 Sodium Potassium Chloride Carbon Dioxide Anion Gap BUN Creatinine Creat Clearance w eGFR Random Glucose Calcium Total Bilirubin AST ALT Alkaline Phosphatase Total Protein Albumin Active Medications Generic Name Dose Route Start Last Admin Trade Name Freq PRN Reason Stop Dose Admin Acetaminophen 325 mg 07/29/16 11:06 Tylenol - PO Q6H PRN FEVER Amiodarone HCl 400 mg 08/04/16 10:00 08/05/16 11:09 Cordarone - PO 400 mg DAILY [facility] Administration Brimonidine Tartrate 1 drop 07/29/16 22:00 08/05/16 21:04 Alphagan P 0.1% - OU 1 drop BID [facility] Administration Collagenase 1 applic 07/30/16 10:00 08/05/16 11:10 Santyl - TP Not Given DAILY [facility] IV Flush 4 ml 08/03/16 22:30 Triple Lumen Flush IVPUSH PRN PRN Protocol Dopamine HCl/Dextrose 250 mls @ 17.04 mls/hr 07/29/16 10:45 08/05/16 11:10 Dopamine 400 Mg/D5w - IVPB Not Given TITR [facility] Protocol 5 MCG/KG/MIN Norepinephrine Bitartrate 4, 500 mls @ 37.5 mls/hr 08/03/16 21:45 08/06/16 06: 00 000 mcg/ Dextrose IV 4 mcg/min TITR [facility] Titration Protocol 5 MCG/MIN Levothyroxine Sodium 50 mcg 07/30/16 07:00 08/06/16 06:20 Synthroid - PO 50 mcg DAILY@0700 [facility] Administration Pantoprazole Sodium 40 mg 07/30/16 10:00 08/05/16 11:09 Protonix - PO 40 mg DAILY [facility] Administration ASSESSMENT/PLAN: 76 year old male with PMH of A-Fib, CAD, Systolic CHF, HTN/HLD, COPD, PUD, ESRD on HD, multiple lower back ulcers, hypothyroidism & DM who is sent to ICU s/p rapid response for hypotension. #Septic Shock, likely secondary to multiple decubitus ulcers -given 1 unit platelets & Vitamin K yesterday with improvement in platelet count & INR (83K & 1.65, respectively) -vitamin K given again today -will discuss bedside debridement with vascular surgery later today -pressors restarted last night, will wean off today if possible -patient has severe systolic CHF, MAP >55 is acceptable (no need for pressors to be restarted if patient is at his baseline BP) -given 1unit platelets & Vitamin K earlier today in anticipation of procedure -collagenase administered to ulcers -wound culture ordered & pending -blood cultures (-) -ID Consult appreciated #ESRD on HD -HD yesterday -avoid nephrotoxic meds -Nephrology consult appreciated #Atrial Fibrillation/CAD Hx/CHF Hx -Not a candidate for AC -on Amiodarone 400mg PO daily, as per cardiology -Lopressor 12.5mg BID, being held at present due to borderline hypotension -cardiology consult appreciated #COPD -Duonebs QIDR -Albuterol PRN -Saturating well on NC @4L presently -BiPap at night and as needed #Hypothyroidism -continue home meds: Synthroid 50mcg Prophylaxis -SCD's -PPI -cautious with IVF administration -monitor electrolytes -Dysphasia Pureed diet, Prosource, Nephrovite Dispo: Palliative Care consulted. Patient is DNR. Niece is HCP. Patient is estranged from his & states that he does not want her to visit him. informed while attempting to visit. Visit type - Emergency Visit Emergency Visit: Yes ED Registration Date: 07/24/16 Care time: The patient presented to the Emergency Department on the above date and was hospitalized for further evaluation of their emergent condition. - New Patient This patient is new to me today: No - Critical Care Critical Care patient: Yes Total Critical Care Time (in minutes): 50 Critical Care Statement: The care of this patient involved high complexity decision making to prevent further life threatening deterioration of the patient 's condition and/or to evalute & treat vital organ system(s) failure or risk of failure.
[2016-08-06] MEDS: PANTOPRAZOLE 40 MG TABLET (FP) PO SCH (09:08)
[2016-08-06] MEDS: AMIODARONE HCL 200 MG TABLET (FP) PO SCH (09:08)
[2016-08-06] MEDS: COLLAGENASE CLOSTRIDIUM HIST. 30 GRAMS TUBE TP SCH ×2 (09:11→18:07)
--- NOTE | 2016-08-06 09:45 | PN ---
Progress Note, Physician Chief Complaint: no distress weak waxing and waning periods of lucidness - Current Medication List Current Medications: Active Medications Acetaminophen (Tylenol -) 325 mg PO Q6H PRN PRN Reason: FEVER Amiodarone HCl (Cordarone -) 400 mg PO DAILY [facility] Last Admin: 08/06/16 09:08 Dose: 400 mg Brimonidine Tartrate (Alphagan P 0.1% -) 1 drop OU BID [facility] Last Admin: 08/06/16 09:09 Dose: 1 drop Collagenase (Santyl -) 1 applic TP DAILY [facility] Last Admin: 08/06/16 09:11 Dose: Not Given IV Flush (Triple Lumen Flush) 4 ml IVPUSH PRN PRN PRN Reason: Protocol Dopamine HCl/Dextrose (Dopamine 400 Mg/D5w -) 250 mls @ 17.04 mls/hr IVPB TITR [facility]; 5 MCG/KG/MIN PRN Reason: Protocol Last Admin: 08/05/16 11:10 Dose: Not Given Norepinephrine Bitartrate 4, (000 mcg/ Dextrose) 500 mls @ 37.5 mls/hr IV TITR [facility]; 5 MCG/MIN PRN Reason: Protocol Last Titration: 08/06/16 06:00 Dose: 4 mcg/min Levothyroxine Sodium (Synthroid -) 50 mcg PO DAILY@0700 [facility] Last Admin: 08/06/16 06:20 Dose: 50 mcg Pantoprazole Sodium (Protonix -) 40 mg PO DAILY [facility] Last Admin: 08/06/16 09:08 Dose: 40 mg - Objective Vital Signs: Vital Signs Temperature 98.7 F 08/06/16 06:00 Pulse Rate 86 08/06/16 08:00 Respiratory Rate 22 08/06/16 08:00 Blood Pressure 84/72 08/06/16 08:00 O2 Sat by Pulse Oximetry (%) 96 08/05/16 19:53 Constitutional: Yes: Other (weak,. drowsy) Cardiovascular: Yes: Pulse Irregular Respiratory: Yes: Diminished Gastrointestinal: Yes: Normal Bowel Sounds, Soft. No: Distention, Tenderness Genitourinary: Yes: Other (pressure ulcer on scrotum) Extremities: Yes: Other (multiple leg wounds) Edema: No Labs: CBC, BMP 08/06/16 05:25 08/06/16 05:25 INR, PTT INR 1.65 (0.82-1.09) H 08/06/16 05:25 Problem List - Problems (1) Congestive heart failure (CHF) Code(s): I50.9 - HEART FAILURE, UNSPECIFIED Qualifiers: Qualified Code(s): I50.22 - Chronic systolic (congestive) heart failure (2) DMII (diabetes mellitus, type 2) Code(s): E11.9 - TYPE 2 DIABETES MELLITUS WITHOUT COMPLICATIONS (3) HTN (hypertension) Code(s): I10 - ESSENTIAL (PRIMARY) HYPERTENSION Qualifiers: Qualified Code(s): I10 - Essential (primary) hypertension (4) Pressure ulcer of lower extremity, stage 1 Code(s): L89.891 - PRESSURE ULCER OF OTHER SITE, STAGE 1 (5) Sepsis Code(s): A41.9 - SEPSIS, UNSPECIFIED ORGANISM Qualifiers: Qualified Code(s): A41.9 - Sepsis, unspecified organism (6) Rapid atrial fibrillation Code(s): I48.91 - UNSPECIFIED ATRIAL FIBRILLATION (7) Functional quadriplegia Code(s): R53.2 - FUNCTIONAL QUADRIPLEGIA (8) End stage renal disease on dialysis Code(s): N18.6 - END STAGE RENAL DISEASE Z99.2 - DEPENDENCE ON RENAL DIALYSIS Assessment/Plan PLAN SEPSIS antibiotics dc blood cultures negative likely due to wounds --for debridement today , could not do it yesterday platelets better and INR noted-- will get one more dose Vit K HYPOTENSION baseline blood pressure is on the lower side, monitor blood pressure. on Norepinephrine infusion drowsy today end-stage renal disease on dialysis HD per Renal elevated troponins, rapid A. fib Not a candidate for anticoagulation rate control with Amiodarone CHF systolic heart failure HD per renal clinically not in respiratory distress usually it is difficult to get O2 sat reading for this pt-- ABG noted Not on AceI or ARB due to hypotension advanced directives patient is DNR spoke to pt about his disease and if he still wants to continue with current care, I told him that he has severe CHF, poor wound healing , failure to thrive will not have a good meaningful recovery BIPAP as needed ICU monitoring
[2016-08-06] MEDS ORDERED: ACETAMINOPHEN 1000 MG/100 ML VIAL (NON FORMULARY) IVPB PRN (10:22)
--- NOTE | 2016-08-06 12:12 | PN ---
Teaching Attending Note Name of Resident: Irvin Harden ATTENDING PHYSICIAN STATEMENT I saw and evaluated the patient. I reviewed the resident's note and discussed the case with the resident. I agree with the resident's findings and plan as documented. SUBJECTIVE: Pt seen and examined in the ICU. Remains on levophed gtt for BP support. No fevers recorded. OBJECTIVE: Last Vital Signs Temp Pulse Resp BP Pulse Ox 98.6 F 88 22 85/59 100 08/06/16 10:00 08/06/16 10:00 08/06/16 10:00 08/06/16 10:00 08/06/16 09:59 Intake & Output 08/03/16 08/04/16 08/05/16 08/06/16 23:59 23:59 23:59 23:59 Intake Total 727 729 4962 330 Output Total 0 Balance 639 936 7039 330 Weight 192 lb 187 lb 185 lb 9 oz 187 lb 6.287 oz Gen: mildly tachypneic at rest Heart: RRR Lung: scattered rhonchi Abd: soft, nontender Ext: no edema, +ulcers dressed CBC, BMP 08/06/16 05:25 08/06/16 05:25 Active Medications Acetaminophen (Tylenol -) 325 mg PO Q6H PRN PRN Reason: FEVER Acetaminophen (Ofirmev Injection -) 1,000 mg IVPB Q6H PRN PRN Reason: FEVER OR PAIN Stop: 08/07/16 04:23 Amino Acids (Prosource No Carb Liquid Pkt) 30 ml PO BID@0800,1730 [facility] Amiodarone HCl (Cordarone -) 400 mg PO DAILY [facility] Last Admin: 08/06/16 09:08 Dose: 400 mg Brimonidine Tartrate (Alphagan P 0.1% -) 1 drop OU BID [facility] Last Admin: 08/06/16 09:09 Dose: 1 drop Collagenase (Santyl -) 1 applic TP DAILY [facility] Last Admin: 08/06/16 09:11 Dose: Not Given IV Flush (Triple Lumen Flush) 4 ml IVPUSH PRN PRN PRN Reason: Protocol Dopamine HCl/Dextrose (Dopamine 400 Mg/D5w -) 250 mls @ 17.04 mls/hr IVPB TITR [facility]; 5 MCG/KG/MIN PRN Reason: Protocol Last Admin: 08/05/16 11:10 Dose: Not Given Norepinephrine Bitartrate 4, (000 mcg/ Dextrose) 500 mls @ 37.5 mls/hr IV TITR [facility]; 5 MCG/MIN PRN Reason: Protocol Last Titration: 08/06/16 06:00 Dose: 4 mcg/min Levothyroxine Sodium (Synthroid -) 50 mcg PO DAILY@0700 [facility] Last Admin: 08/06/16 06:20 Dose: 50 mcg Multivit/Ca Carb/B Cmplx/FA/Prenat (Nephro-Mor -) 1 tablet PO DAILY [facility] Pantoprazole Sodium (Protonix -) 40 mg PO DAILY [facility] Last Admin: 08/06/16 09:08 Dose: 40 mg ASSESSMENT AND PLAN: Acute on Chronic Hypoxic and Hypercapneic Respiratory Failure improving Sacral Decubitus Ulcer Infection Septic Shock Lactic Acidosis resolved ESRD on HD Severe LV Systolic Dysfunction Atrial Fibrillation CAD - antibiotics per ID - for debridement - taper levophed gtt to maintain MAP >50 - BiPAP as neededto assist in work of breathing - O2 to keep SpO2 >90% - HD per renal - aspiration precautions - wound care - DVT prophylaxis - continue discussions regarding goals of care as pt chronically ill with prolonged multiple hospitalizations critical care time spent in reviewing chart, evaluating patient and formulating plan 38 min
[2016-08-06] MEDS: VITAMIN B COMP W-C 1 EA TABLET PO SCH (12:24)
--- NOTE | 2016-08-06 12:45 | PN ---
Progress Note, Physician History of Present Illness: Pt seen and examined at bedside. He remains in the ICU. He is more drowsy today. - Current Medication List Current Medications: Active Medications Acetaminophen (Tylenol -) 325 mg PO Q6H PRN PRN Reason: FEVER Acetaminophen (Ofirmev Injection -) 1,000 mg IVPB Q6H PRN PRN Reason: FEVER OR PAIN Stop: 08/07/16 04:23 Amino Acids (Prosource No Carb Liquid Pkt) 30 ml PO BID@0800,1730 [facility] Amiodarone HCl (Cordarone -) 400 mg PO DAILY [facility] Last Admin: 08/06/16 09:08 Dose: 400 mg Brimonidine Tartrate (Alphagan P 0.1% -) 1 drop OU BID [facility] Last Admin: 08/06/16 09:09 Dose: 1 drop Collagenase (Santyl -) 1 applic TP DAILY [facility] Last Admin: 08/06/16 09:11 Dose: Not Given IV Flush (Triple Lumen Flush) 4 ml IVPUSH PRN PRN PRN Reason: Protocol Dopamine HCl/Dextrose (Dopamine 400 Mg/D5w -) 250 mls @ 17.04 mls/hr IVPB TITR [facility]; 5 MCG/KG/MIN PRN Reason: Protocol Last Admin: 08/05/16 11:10 Dose: Not Given Norepinephrine Bitartrate 4, (000 mcg/ Dextrose) 500 mls @ 37.5 mls/hr IV TITR [facility]; 5 MCG/MIN PRN Reason: Protocol Last Titration: 08/06/16 06:00 Dose: 4 mcg/min Levothyroxine Sodium (Synthroid -) 50 mcg PO DAILY@0700 [facility] Last Admin: 08/06/16 06:20 Dose: 50 mcg Multivit/Ca Carb/B Cmplx/FA/Prenat (Nephro-Mor -) 1 tablet PO DAILY [facility] Last Admin: 08/06/16 12:24 Dose: 1 tablet Pantoprazole Sodium (Protonix -) 40 mg PO DAILY [facility] Last Admin: 08/06/16 09:08 Dose: 40 mg - Objective Vital Signs: Vital Signs Temperature 98.6 F 08/06/16 10:00 Pulse Rate 88 08/06/16 10:00 Respiratory Rate 22 08/06/16 10:00 Blood Pressure 85/59 08/06/16 10:00 O2 Sat by Pulse Oximetry (%) 100 08/06/16 09:59 Constitutional: Yes: Calm Cardiovascular: Yes: S1, S2 Respiratory: Yes: On Nasal O2 Gastrointestinal: Yes: Soft Musculoskeletal: Yes: Muscle Weakness Edema: No Integumentary: Yes: Other (bilateral leg ulcers) Neurological: Yes: Other (drowsy) Labs: CBC, BMP 08/06/16 05:25 08/06/16 05:25 INR, PTT INR 1.65 (0.82-1.09) H 08/06/16 05:25 - ....Imaging Chest X-ray: Report Reviewed Problem List - Problems (1) End stage renal disease on dialysis Code(s): N18.6 - END STAGE RENAL DISEASE Z99.2 - DEPENDENCE ON RENAL DIALYSIS (2) Hypotension Code(s): I95.9 - HYPOTENSION, UNSPECIFIED Qualifiers: Qualified Code(s): I95.9 - Hypotension, unspecified (3) Anemia Code(s): D64.9 - ANEMIA, UNSPECIFIED Qualifiers: Qualified Code(s): N18.9 - Chronic kidney disease, unspecified; D63.1 - Anemia in chronic kidney disease Assessment/Plan Current Medications Generic Name Dose Route Start Last Admin Trade Name Freq PRN Reason Stop Dose Admin Acetaminophen 325 mg 07/29/16 11:06 Tylenol - PO Q6H PRN FEVER Acetaminophen 1,000 mg 08/06/16 10:22 Ofirmev Injection - IVPB 08/07/16 04:23 Q6H PRN FEVER OR PAIN Amino Acids 30 ml 08/06/16 17:30 Prosource No Carb Liquid Pkt PO BID@0800,1730 [facility] Amiodarone HCl 400 mg 08/04/16 10:00 08/06/16 09:08 Cordarone - PO 400 mg DAILY [facility] Administration Brimonidine Tartrate 1 drop 07/29/16 22:00 08/06/16 09:09 Alphagan P 0.1% - OU 1 drop BID [facility] Administration Collagenase 1 applic 07/30/16 10:00 08/06/16 09:11 Santyl - TP Not Given DAILY [facility] IV Flush 4 ml 08/03/16 22:30 Triple Lumen Flush IVPUSH PRN PRN Protocol Dopamine HCl/Dextrose 250 mls @ 17.04 mls/hr 07/29/16 10:45 05/23/17 11:10 Dopamine 400 Mg/D5w - IVPB Not Given TITR [facility] Protocol 5 MCG/KG/MIN Norepinephrine Bitartrate 4, 500 mls @ 37.5 mls/hr 08/03/16 21:45 08/06/16 06: 00 000 mcg/ Dextrose IV 4 mcg/min TITR [facility] Titration Protocol 5 MCG/MIN Levothyroxine Sodium 50 mcg 07/30/16 07:00 08/06/16 06:20 Synthroid - PO 50 mcg DAILY@0700 [facility] Administration Multivit/Ca Carb/B Cmplx/FA/Prenat 1 tablet 08/06/16 11:45 08/06/16 12:24 Nephro-Mor - PO 1 tablet DAILY [facility] Administration Pantoprazole Sodium 40 mg 07/30/16 10:00 08/06/16 09:08 Protonix - PO 40 mg DAILY [facility] Administration Impression 1. ESRD on HD 2. hypotension 3. cellulitis/abscess of back 4. CHF 5. hypothyroidism 6. hyperlipidemia 7. COPD 8. a-fib 9. pleural effusion 10. respiratory failure requiring bipap Plan - cont current management - HD in am - wound care to legs - vascular follow up - monitor blood pressure - cont bipap as needed - cont ICU care - will follow Dr Martinez
--- NOTE | 2016-08-06 13:40 | PN ---
Progress Note, Physician Chief Complaint: tachycardia persists. comfortable History of Present Illness: This is a 76 year old male with known CAD, afib, chronic systolic chf, htn, dm, ckd, hld, and ckd with multiple recent admissions for infection/sepsis admitted with hypotension and tachycardia in setting of sepsis. He is awaiting debridement of foot ulcers. - Current Medication List Current Medications: Active Medications Acetaminophen (Tylenol -) 325 mg PO Q6H PRN PRN Reason: FEVER Acetaminophen (Ofirmev Injection -) 1,000 mg IVPB Q6H PRN PRN Reason: FEVER OR PAIN Stop: 08/07/16 04:23 Amino Acids (Prosource No Carb Liquid Pkt) 30 ml PO BID@0800,1730 [facility] Amiodarone HCl (Cordarone -) 400 mg PO DAILY [facility] Last Admin: 08/06/16 09:08 Dose: 400 mg Brimonidine Tartrate (Alphagan P 0.1% -) 1 drop OU BID [facility] Last Admin: 08/06/16 09:09 Dose: 1 drop Collagenase (Santyl -) 1 applic TP DAILY [facility] Last Admin: 08/06/16 09:11 Dose: Not Given Epoetin Wilson (Epogen -) 8,000 units IVPUSH ONCE ONE Stop: 08/07/16 12:46 IV Flush (Triple Lumen Flush) 4 ml IVPUSH PRN PRN PRN Reason: Protocol Dopamine HCl/Dextrose (Dopamine 400 Mg/D5w -) 250 mls @ 17.04 mls/hr IVPB TITR [facility]; 5 MCG/KG/MIN PRN Reason: Protocol Last Admin: 08/05/16 11:10 Dose: Not Given Norepinephrine Bitartrate 4, (000 mcg/ Dextrose) 500 mls @ 37.5 mls/hr IV TITR [facility]; 5 MCG/MIN PRN Reason: Protocol Last Titration: 08/06/16 06:00 Dose: 4 mcg/min Levothyroxine Sodium (Synthroid -) 50 mcg PO DAILY@0700 [facility] Last Admin: 08/06/16 06:20 Dose: 50 mcg Multivit/Ca Carb/B Cmplx/FA/Prenat (Nephro-Mor -) 1 tablet PO DAILY [facility] Last Admin: 08/06/16 12:24 Dose: 1 tablet Pantoprazole Sodium (Protonix -) 40 mg PO DAILY [facility] Last Admin: 08/06/16 09:08 Dose: 40 mg - Objective Vital Signs: Vital Signs Temperature 98.6 F 08/06/16 10:00 Pulse Rate 75 08/06/16 12:00 Respiratory Rate 22 08/06/16 12:00 Blood Pressure 78/61 08/06/16 12:00 O2 Sat by Pulse Oximetry (%) 100 08/06/16 09:59 Constitutional: Yes: No Distress, Calm Eyes: Yes: Conjunctiva Clear HENT: Yes: Atraumatic, Normocephalic Neck: Yes: Supple, Trachea Midline Cardiovascular: Yes: JVD Respiratory: Yes: Diminished Gastrointestinal: Yes: Normal Bowel Sounds, Soft Edema: Yes Labs: CBC, BMP 08/06/16 05:25 08/06/16 05:25 INR, PTT INR 1.65 (0.82-1.09) H 08/06/16 05:25 Assessment/Plan 1) Sepsis/Hypotension -Hypotension due to infection. On pressors for blood pressure support. IVFluid boluses as needed. antibiotics as per primary team and pressors as needed for hemodynamic support -B/l lower extremity wounds being followed by vascular. There are no direct cardiac contraindications to debridement. He is a high risk patient for any procedure, but the benefits outweigh the risks. 2) Afib Ventricular rates controlled today. No av higinio blockers as BP would not tolerate. amiodarone to 400mg daily. AC is currently on hold. Replete lytes as needed 3) CHF No dyllan/arb or bblocker due to hypotension. IVF's as needed for hypotension along with pressures if needed. Prognosis is very poor. follow Goals of care.
[2016-08-06] MEDS: AMINO ACIDS/PROTEIN HYDROLYS 30 ML LIQUID.PKT PO SCH (17:35)
[2016-08-07 06:12] LABS: MCH 27.7 pg (25.7-33.7); MEAN CELL VOLUME 95.7 fl (80-96); MEAN PLT VOLUME 9.9 fl (7.5-11.1); PLATELET COUNT 84 K/MM3 (134-434); RDW 22.2 % (11.9-15.9); WHITE BLOOD COUNT 15.5 K/mm3 (4.0-10.0)
[2016-08-07 06:25] LABS: INR 1.66 (0.82-1.09); PROTHROMBIN TIME (PATIENT) 18.5 SEC (9.98-11.88)
[2016-08-07 06:32] LABS: ALBUMIN 2.2 g/dl (3.4-5.0); CALCIUM 8.4 mg/dL (8.5-10.1)
[2016-08-07 06:34] LABS: BILIRUBIN,TOTAL 1.8 mg/dL (0.2-1.0); CREATININE 3.5 mg/dL (0.7-1.3); TOT PROT 5.8 g/dl (6.4-8.2)
[2016-08-07] MEDS: LEVOTHYROXINE NA 50 MCG TABLET (FP) PO SCH (07:19)
[2016-08-07] MEDS ORDERED: PHYTONADIONE 10 MG/1 ML AMP SQ ONE (08:19)
--- NOTE | 2016-08-07 08:27 | PN ---
Physical Exam: SUBJECTIVE: Patient seen and examined at bedside in ICU this AM. AAO and at mental status baseline. States he feels "pretty good" and understands procedure planned for later today. Afebrile overnight with otherwise stable oxygen saturation without use of bipap. OBJECTIVE: Vital Signs Period Temp Pulse Resp BP Sys/Hubbard Pulse Ox Last 24 Hr 98 F-98.6 F 67-97 20-30 72-96/56-67 96-100 GENERAL: Awake, alert, and fully oriented, in no acute distress. Resting comfortably in bed on NC. HEENT: Atraumatic, EOMI, PERRLA, No lymphadenopathy, dry membranes LUNGS: mild bibasilar crackles noted, no wheezing or accessory muscle use HEART: irregular, tachycardic, S1 and S2 without murmur, rub or gallop. ABDOMEN: Soft, nontender, not distended, normoactive bowel sounds EXTREMITIES: 1+ pulses, warm, well-perfused. No calf tenderness. +1 bilateral pitting edema in lower extremity NEUROLOGICAL: Cranial nerves II-XII intact. Normal speech. Gait not observed. PSYCHIATRIC: Cooperative. Good eye contact. Appropriate mood and affect. Able to answer questions and make requests. SKIN: multiple stage III decubitus to buttocks, shins and scrotum Laboratory Results - last 24 hr 08/07/16 08/07/16 08/07/16 05:45 05:45 05:45 WBC 15.5 H RBC 3.30 L Hgb 9.1 L Hct 31.5 L MCV 95.7 MCHC 29.0 L RDW 22.2 H Plt Count 84 L MPV 9.9 INR 1.66 H PTT (Actin FS) 46.0 H Sodium 139 Potassium 4.2 Chloride 99 Carbon Dioxide 27 Anion Gap 13 BUN 31 H D Creatinine 3.5 H Creat Clearance w eGFR 17.11 Random Glucose 144 H Calcium 8.4 L Total Bilirubin 1.8 H AST 14 L D ALT 20 Alkaline Phosphatase 108 Total Protein 5.8 L Albumin 2.2 L Active Medications Generic Name Dose Route Start Last Admin Trade Name Freq PRN Reason Stop Dose Admin Acetaminophen 325 mg 07/29/16 11:06 Tylenol - PO Q6H PRN FEVER Amino Acids 30 ml 08/06/16 17:30 08/06/16 17:35 Prosource No Carb Liquid Pkt PO 30 ml BID@0800,1730 [facility] Administration Amiodarone HCl 400 mg 08/04/16 10:00 08/06/16 09:08 Cordarone - PO 400 mg DAILY [facility] Administration Brimonidine Tartrate 1 drop 07/29/16 22:00 08/06/16 09:09 Alphagan P 0.1% - OU 1 drop BID [facility] Administration Collagenase 1 applic 07/30/16 10:00 08/06/16 18:07 Santyl - TP 1 applic DAILY [facility] Administration Epoetin Wilson 8,000 units 08/07/16 12:45 Epogen - IVPUSH 08/07/16 12:46 ONCE ONE IV Flush 4 ml 08/03/16 22:30 Triple Lumen Flush IVPUSH PRN PRN Protocol Dopamine HCl/Dextrose 250 mls @ 17.04 mls/hr 07/29/16 10:45 08/05/16 11:10 Dopamine 400 Mg/D5w - IVPB Not Given TITR [facility] Protocol 5 MCG/KG/MIN Norepinephrine Bitartrate 4, 500 mls @ 37.5 mls/hr 08/03/16 21:45 08/06/16 06: 00 000 mcg/ Dextrose IV 4 mcg/min TITR [facility] Titration Protocol 5 MCG/MIN Levothyroxine Sodium 50 mcg 07/30/16 07:00 08/07/16 07:19 Synthroid - PO 50 mcg DAILY@0700 [facility] Administration Multivit/Ca Carb/B Cmplx/FA/Prenat 1 tablet 08/06/16 11:45 08/06/16 12:24 Nephro-Mor - PO 1 tablet DAILY [facility] Administration Pantoprazole Sodium 40 mg 07/30/16 10:00 08/06/16 09:08 Protonix - PO 40 mg DAILY [facility] Administration Phytonadione 5 mg 08/07/16 08:19 Aqua Mephyton Injection - SQ 08/07/16 08:20 ONCE ONE ASSESSMENT/PLAN: 76 year old male with PMH of A-Fib, CAD, Systolic CHF, HTN/HLD, COPD, PUD, ESRD on HD, multiple lower back ulcers, hypothyroidism & DM who is sent to ICU s/p rapid response for hypotension. #Septic Shock, likely secondary to multiple decubitus ulcers -BP support with Levophed at present, will start low-dose Dobutamine later today in attempt to wean off pressors -received 3rd dose Vitamin K this morning (INR 1.66) -bedside debridement with vascular surgery later today -patient has severe systolic CHF, MAP >55 is acceptable -collagenase administered to ulcers -ID Consult appreciated #ESRD on HD -HD today -avoid nephrotoxic meds -Nephrology consult appreciated #Atrial Fibrillation/CAD Hx/CHF Hx -Not a candidate for AC -on Amiodarone 400mg PO daily, as per cardiology -cardiology consult appreciated #COPD -Duonebs QIDR -Albuterol PRN -Saturating well on NC @4L presently -BiPap at night and as needed #Hypothyroidism -continue home meds: Synthroid 50mcg Prophylaxis -SCD's -PPI -cautious with IVF administration -monitor electrolytes -Dysphasia Pureed diet, Prosource, Nephrovite Dispo: Palliative Care consulted. Patient is DNR. Niece is HCP. Patient is estranged from his & states that he does not want her to visit him. informed while attempting to visit. Visit type - Emergency Visit Emergency Visit: Yes ED Registration Date: 07/24/16 Care time: The patient presented to the Emergency Department on the above date and was hospitalized for further evaluation of their emergent condition. - New Patient This patient is new to me today: No - Critical Care Critical Care patient: Yes Total Critical Care Time (in minutes): 50 Critical Care Statement: The care of this patient involved high complexity decision making to prevent further life threatening deterioration of the patient 's condition and/or to evalute & treat vital organ system(s) failure or risk of failure.
[2016-08-07] MEDS: AMINO ACIDS/PROTEIN HYDROLYS 30 ML LIQUID.PKT PO SCH ×2 (08:29→18:08)
[2016-08-07] MEDS: VITAMIN B COMP W-C 1 EA TABLET PO SCH (09:53)
[2016-08-07] MEDS: AMIODARONE HCL 200 MG TABLET (FP) PO SCH (09:53)
[2016-08-07] MEDS: PANTOPRAZOLE 40 MG TABLET (FP) PO SCH (09:53)
[2016-08-07] MEDS: BRIMONIDINE TARTRATE 0.1% OPHTHALMIC 5 ML BOTTLE OU SCH ×2 (09:54→22:00)
[2016-08-07] MEDS ORDERED: EPOETIN ALFA 10,000 UNIT/1 ML VIAL IVPUSH ONE (10:00)
[2016-08-07 10:16] LABS: ARTERIAL BLD GAS O2 SATURATION 92.6 % (90-98.9); ARTERIAL BLOOD GAS BASE EXCESS 0.4 meq/l (-2-2); ARTERIAL BLOOD GAS HCO3 27.3 meq/L (22-26); ARTERIAL BLOOD GAS PO2 72.8 mmHg (70-100)
[2016-08-07 10:17] LABS: ALLENS TEST POSITIVE; ART PUNCT SITE RIGHT RADIAL; LPM/O2% 5; PT. ON O2? YES; TYPE OF O2 N/C
[2016-08-07 10:18] LABS: ARTERIAL BLOOD GAS pH 7.27 (7.35-7.45)
--- NOTE | 2016-08-07 10:47 | PN ---
Progress Note, Physician Chief Complaint: awake on BIPAP HD in progress did not get wound debridement yesterday - Current Medication List Current Medications: Active Medications Acetaminophen (Tylenol -) 325 mg PO Q6H PRN PRN Reason: FEVER Amino Acids (Prosource No Carb Liquid Pkt) 30 ml PO BID@0800,1730 [facility] Last Admin: 08/07/16 08:29 Dose: 30 ml Amiodarone HCl (Cordarone -) 400 mg PO DAILY [facility] Last Admin: 08/07/16 09:53 Dose: 400 mg Brimonidine Tartrate (Alphagan P 0.1% -) 1 drop OU BID [facility] Last Admin: 08/07/16 09:54 Dose: 1 drop Collagenase (Santyl -) 1 applic TP DAILY [facility] Last Admin: 08/06/16 18:07 Dose: 1 applic IV Flush (Triple Lumen Flush) 4 ml IVPUSH PRN PRN PRN Reason: Protocol Dopamine HCl/Dextrose (Dopamine 400 Mg/D5w -) 250 mls @ 17.04 mls/hr IVPB TITR [facility]; 5 MCG/KG/MIN PRN Reason: Protocol Last Admin: 08/05/16 11:10 Dose: Not Given Norepinephrine Bitartrate 4, (000 mcg/ Dextrose) 500 mls @ 37.5 mls/hr IV TITR [facility]; 5 MCG/MIN PRN Reason: Protocol Last Titration: 08/06/16 06:00 Dose: 4 mcg/min Levothyroxine Sodium (Synthroid -) 50 mcg PO DAILY@0700 [facility] Last Admin: 08/07/16 07:19 Dose: 50 mcg Multivit/Ca Carb/B Cmplx/FA/Prenat (Nephro-Mor -) 1 tablet PO DAILY [facility] Last Admin: 08/07/16 09:53 Dose: 1 tablet Pantoprazole Sodium (Protonix -) 40 mg PO DAILY [facility] Last Admin: 08/07/16 09:53 Dose: 40 mg - Objective Vital Signs: Vital Signs Temperature 98 F 08/07/16 02:00 Pulse Rate 88 08/07/16 09:57 Respiratory Rate 28 H 08/07/16 09:38 Blood Pressure 83/66 08/07/16 09:38 O2 Sat by Pulse Oximetry (%) 98 08/07/16 09:57 Constitutional: Yes: No Distress Cardiovascular: Yes: Pulse Irregular Respiratory: Yes: Diminished Gastrointestinal: Yes: Normal Bowel Sounds, Soft. No: Abdomen, Obese, Tenderness Extremities: Yes: Other (leg wounds) Edema: Yes Edema: LLE: Trace, RLE: Trace Psychiatric: Yes: Alert Labs: CBC, BMP 08/07/16 05:45 08/07/16 05:45 INR, PTT INR 1.66 (0.82-1.09) H 08/07/16 05:45 Problem List - Problems (1) Congestive heart failure (CHF) Code(s): I50.9 - HEART FAILURE, UNSPECIFIED Qualifiers: Congestive heart failure type: systolic Congestive heart failure chronicity: chronic Qualified Code(s): I50.22 - Chronic systolic (congestive ) heart failure (2) DMII (diabetes mellitus, type 2) Code(s): E11.9 - TYPE 2 DIABETES MELLITUS WITHOUT COMPLICATIONS Qualifiers: Diabetes mellitus complication detail: with other kidney complication (3) HTN (hypertension) Code(s): I10 - ESSENTIAL (PRIMARY) HYPERTENSION Qualifiers: Hypertension type: essential hypertension Qualified Code(s): I10 - Essential (primary) hypertension (4) Pressure ulcer of lower extremity, stage 1 Code(s): L89.891 - PRESSURE ULCER OF OTHER SITE, STAGE 1 (5) Sepsis Code(s): A41.9 - SEPSIS, UNSPECIFIED ORGANISM Qualifiers: Sepsis type: sepsis due to unspecified organism Qualified Code(s): A41.9 - Sepsis, unspecified organism (6) Rapid atrial fibrillation Code(s): I48.91 - UNSPECIFIED ATRIAL FIBRILLATION (7) Functional quadriplegia Code(s): R53.2 - FUNCTIONAL QUADRIPLEGIA (8) End stage renal disease on dialysis Code(s): N18.6 - END STAGE RENAL DISEASE Z99.2 - DEPENDENCE ON RENAL DIALYSIS Assessment/Plan PLAN SEPSIS antibiotics dc blood cultures negative likely due to wounds --for debridement today , could not do it yesterday , spoke with DR brice platelets better and INR noted HYPOTENSION BP is low-- increased Levophed drip today on BIPAP end-stage renal disease on dialysis HD per Renal elevated troponins, rapid A. fib Not a candidate for anticoagulation rate control with Amiodarone CHF systolic heart failure- severe HD per renal clinically not in respiratory distress usually it is difficult to get O2 sat reading for this pt-- ABG noted Not on AceI or ARB due to hypotension advanced directives patient is DNR spoke with Niece HCP about procedure and that he is on Levophed drip and had to raise it today Unable to maintain BP BIPAP as needed ICU monitoring
[2016-08-07] MEDS ORDERED: NOREPINEPHRINE BITARTRATE 4 MG/4 ML ML IV ONE ×3 (12:51→19:56)
[2016-08-07 13:02] LABS: ACANTHOCYTES 1+; ANISOCYTOSIS 3+; FRAGMENTED CELL FEW; HYPOCHROMIA 2+; MICROCYTOSIS 1+; POIKILOCYTOSIS 1+; POLYCHROMASIA 1+; TARGET CELLS 2+
--- NOTE | 2016-08-07 15:10 | PN ---
Teaching Attending Note Name of Resident: Irvin Harden ATTENDING PHYSICIAN STATEMENT I saw and evaluated the patient. I reviewed the resident's note and discussed the case with the resident. I agree with the resident's findings and plan as documented. SUBJECTIVE: Patient seen and examined in the ICU. Increased NE requirement today to 9 mcq. On acute HD. Awake and interactive. For possible debridement today. Intake & Output 08/04/16 08/05/16 08/06/16 08/07/16 23:59 23:59 23:59 23:59 Intake Total 550 1033 930 210 Output Total 0 Balance 550 1033 930 210 Weight 187 lb 185 lb 9 oz 187 lb 6.287 oz 187 lb 6.287 oz Last Vital Signs Temp Pulse Resp BP Pulse Ox 97.1 F L 92 H 28 H 106/77 98 08/07/16 13:50 08/07/16 13:50 08/07/16 13:50 08/07/16 13:50 08/07/16 09:57 Active Medications Acetaminophen (Tylenol -) 325 mg PO Q6H PRN PRN Reason: FEVER Amino Acids (Prosource No Carb Liquid Pkt) 30 ml PO BID@0800,1730 [facility] Last Admin: 08/07/16 08:29 Dose: 30 ml Amiodarone HCl (Cordarone -) 400 mg PO DAILY [facility] Last Admin: 08/07/16 09:53 Dose: 400 mg Brimonidine Tartrate (Alphagan P 0.1% -) 1 drop OU BID [facility] Last Admin: 08/07/16 09:54 Dose: 1 drop Collagenase (Santyl -) 1 applic TP DAILY [facility] Last Admin: 08/06/16 18:07 Dose: 1 applic IV Flush (Triple Lumen Flush) 4 ml IVPUSH PRN PRN PRN Reason: Protocol Dopamine HCl/Dextrose (Dopamine 400 Mg/D5w -) 250 mls @ 17.04 mls/hr IVPB TITR [facility]; 5 MCG/KG/MIN PRN Reason: Protocol Last Admin: 08/05/16 11:10 Dose: Not Given Norepinephrine Bitartrate 4, (000 mcg/ Dextrose) 500 mls @ 37.5 mls/hr IV TITR [facility]; 5 MCG/MIN PRN Reason: Protocol Last Titration: 08/06/16 06:00 Dose: 4 mcg/min Levothyroxine Sodium (Synthroid -) 50 mcg PO DAILY@0700 [facility] Last Admin: 08/07/16 07:19 Dose: 50 mcg Multivit/Ca Carb/B Cmplx/FA/Prenat (Nephro-Mor -) 1 tablet PO DAILY [facility] Last Admin: 08/07/16 09:53 Dose: 1 tablet Pantoprazole Sodium (Protonix -) 40 mg PO DAILY [facility] Last Admin: 08/07/16 09:53 Dose: 40 mg Gen: Awake and responsive, mildly tachypneic on NC O2 Heart: RRR Lung: scattered rhonchi Abd: soft, nontender Ext: no edema, draining ulcers Laboratory Results - last 24 hr 08/07/16 08/07/16 08/07/16 05:45 05:45 05:45 WBC 15.5 H RBC 3.30 L Hgb 9.1 L Hct 31.5 L MCV 95.7 MCHC 29.0 L RDW 22.2 H Plt Count 84 L MPV 9.9 Polychromasia 1+ Hypochromic-Microcytic 2+ Poikilocytosis 1+ Anisocytosis 3+ Microcytosis 1+ Macrocytosis 2+ Target Cells 2+ Acanthocytes (Spur) 1+ Fragmented RBCs Few INR 1.66 H PTT (Actin FS) 46.0 H Puncture Site ABG pH ABG pCO2 at Pt Temp ABG pO2 at Pt Temp ABG HCO3 ABG O2 Sat (Measured) ABG O2 Content ABG Base Excess Frankie Test O2 Delivery Device Oxygen Flow Rate PEEP Sodium 139 Potassium 4.2 Chloride 99 Carbon Dioxide 27 Anion Gap 13 BUN 31 H D Creatinine 3.5 H Creat Clearance w eGFR 17.11 Random Glucose 144 H Calcium 8.4 L Total Bilirubin 1.8 H AST 14 L D ALT 20 Alkaline Phosphatase 108 Total Protein 5.8 L Albumin 2.2 L 08/07/16 10:10 WBC RBC Hgb Hct MCV MCHC RDW Plt Count MPV Polychromasia Hypochromic-Microcytic Poikilocytosis Anisocytosis Microcytosis Macrocytosis Target Cells Acanthocytes (Spur) Fragmented RBCs INR PTT (Actin FS) Puncture Site Right radial ABG pH 7.27 L D ABG pCO2 at Pt Temp 61.2 H* D ABG pO2 at Pt Temp 72.8 D ABG HCO3 27.3 H ABG O2 Sat (Measured) 92.6 ABG O2 Content 11.5 L ABG Base Excess 0.4 Frankie Test Positive O2 Delivery Device N/c Oxygen Flow Rate 5 PEEP 0.0 Sodium Potassium Chloride Carbon Dioxide Anion Gap BUN Creatinine Creat Clearance w eGFR Random Glucose Calcium Total Bilirubin AST ALT Alkaline Phosphatase Total Protein Albumin CXR: increasing vascular congestion/effusion ASSESSMENT AND PLAN: Acute on Chronic Hypoxic and Hypercapneic Respiratory Failure Sacral Decubitus Ulcer Infection Septic Shock Lactic Acidosis ESRD on HD Severe LV Systolic Dysfunction Atrial Fibrillation CAD - antibiotics per ID - for possible debridement today - taper NE drip to maintain MAP > 50 to 55 - NIPPV as needed to assist in work of breathing - O2 to keep SpO2 >90% - HD per renal - aspiration precautions - wound care - DVT prophylaxis - continue discussions regarding goals of care as pt chronically ill with prolonged multiple hospitalizations Dr Farrell Critical care time spent in reviewing chart, evaluating patient and formulating plan 35 min
--- NOTE | 2016-08-07 15:13 | PN ---
Progress Note, Physician Chief Complaint: tachycardia persists. comfortable on bipap History of Present Illness: This is a 76 year old male with known CAD, afib, chronic systolic chf, htn, dm, ckd, hld, and ckd with multiple recent admissions for infection/sepsis admitted with hypotension and tachycardia in setting of sepsis. He is awaiting debridement of foot ulcers. - Current Medication List Current Medications: Active Medications Acetaminophen (Tylenol -) 325 mg PO Q6H PRN PRN Reason: FEVER Amino Acids (Prosource No Carb Liquid Pkt) 30 ml PO BID@0800,1730 [facility] Last Admin: 08/07/16 08:29 Dose: 30 ml Amiodarone HCl (Cordarone -) 400 mg PO DAILY [facility] Last Admin: 08/07/16 09:53 Dose: 400 mg Brimonidine Tartrate (Alphagan P 0.1% -) 1 drop OU BID [facility] Last Admin: 08/07/16 09:54 Dose: 1 drop Collagenase (Santyl -) 1 applic TP DAILY [facility] Last Admin: 08/06/16 18:07 Dose: 1 applic IV Flush (Triple Lumen Flush) 4 ml IVPUSH PRN PRN PRN Reason: Protocol Dopamine HCl/Dextrose (Dopamine 400 Mg/D5w -) 250 mls @ 17.04 mls/hr IVPB TITR [facility]; 5 MCG/KG/MIN PRN Reason: Protocol Last Admin: 08/05/16 11:10 Dose: Not Given Norepinephrine Bitartrate 4, (000 mcg/ Dextrose) 500 mls @ 37.5 mls/hr IV TITR [facility]; 5 MCG/MIN PRN Reason: Protocol Last Titration: 08/06/16 06:00 Dose: 4 mcg/min Levothyroxine Sodium (Synthroid -) 50 mcg PO DAILY@0700 [facility] Last Admin: 08/07/16 07:19 Dose: 50 mcg Multivit/Ca Carb/B Cmplx/FA/Prenat (Nephro-Mor -) 1 tablet PO DAILY [facility] Last Admin: 08/07/16 09:53 Dose: 1 tablet Pantoprazole Sodium (Protonix -) 40 mg PO DAILY [facility] Last Admin: 08/07/16 09:53 Dose: 40 mg - Objective Vital Signs: Vital Signs Temperature 97.1 F L 08/07/16 13:50 Pulse Rate 92 H 08/07/16 13:50 Respiratory Rate 28 H 08/07/16 13:50 Blood Pressure 106/77 08/07/16 13:50 O2 Sat by Pulse Oximetry (%) 98 08/07/16 09:57 Constitutional: Yes: No Distress Eyes: Yes: WNL HENT: Yes: Atraumatic, Normocephalic Neck: Yes: Supple, Trachea Midline Cardiovascular: Yes: Tachycardia Respiratory: Yes: Diminished Gastrointestinal: Yes: Normal Bowel Sounds, Soft Edema: Yes Peripheral Pulses WNL: No Peripheral Pulses: Left Doralis Pedis: 0, Right Dorsalis Pedis: 0, Left Femoral : 1+, Right Femoral: 1+ Labs: CBC, BMP 08/07/16 05:45 08/07/16 05:45 INR, PTT INR 1.66 (0.82-1.09) H 08/07/16 05:45 Assessment/Plan 1) Sepsis/Hypotension -Hypotension due to infection. On pressors for blood pressure support. IVFluid boluses as needed. antibiotics as per primary team and pressors as needed for hemodynamic support -B/l lower extremity wounds being followed by vascular. There are no direct cardiac contraindications to debridement. He is a high risk patient for any procedure, but the benefits outweigh the risks. 2) Afib Ventricular rates controlled today. No av higinio blockers as BP would not tolerate. amiodarone to 400mg daily. AC is currently on hold. Replete lytes as needed 3) CHF No dyllan/arb or bblocker due to hypotension. IVF's as needed for hypotension along with pressures if needed. Prognosis is very poor. follow Goals of care.
--- NOTE | 2016-08-07 15:23 | PN ---
Progress Note, Physician History of Present Illness: Pt seen and examined at bedside. He is awake and appears comfortable. He is getting HD. - Current Medication List Current Medications: Active Medications Acetaminophen (Tylenol -) 325 mg PO Q6H PRN PRN Reason: FEVER Amino Acids (Prosource No Carb Liquid Pkt) 30 ml PO BID@0800,1730 [facility] Last Admin: 08/07/16 08:29 Dose: 30 ml Amiodarone HCl (Cordarone -) 400 mg PO DAILY [facility] Last Admin: 08/07/16 09:53 Dose: 400 mg Brimonidine Tartrate (Alphagan P 0.1% -) 1 drop OU BID [facility] Last Admin: 08/07/16 09:54 Dose: 1 drop Collagenase (Santyl -) 1 applic TP DAILY [facility] Last Admin: 08/06/16 18:07 Dose: 1 applic IV Flush (Triple Lumen Flush) 4 ml IVPUSH PRN PRN PRN Reason: Protocol Dopamine HCl/Dextrose (Dopamine 400 Mg/D5w -) 250 mls @ 17.04 mls/hr IVPB TITR [facility]; 5 MCG/KG/MIN PRN Reason: Protocol Last Admin: 08/05/16 11:10 Dose: Not Given Norepinephrine Bitartrate 4, (000 mcg/ Dextrose) 500 mls @ 37.5 mls/hr IV TITR [facility]; 5 MCG/MIN PRN Reason: Protocol Last Titration: 08/06/16 06:00 Dose: 4 mcg/min Levothyroxine Sodium (Synthroid -) 50 mcg PO DAILY@0700 [facility] Last Admin: 08/07/16 07:19 Dose: 50 mcg Multivit/Ca Carb/B Cmplx/FA/Prenat (Nephro-Mor -) 1 tablet PO DAILY [facility] Last Admin: 08/07/16 09:53 Dose: 1 tablet Pantoprazole Sodium (Protonix -) 40 mg PO DAILY [facility] Last Admin: 08/07/16 09:53 Dose: 40 mg - Objective Vital Signs: Vital Signs Temperature 97.1 F L 08/07/16 13:50 Pulse Rate 92 H 08/07/16 13:50 Respiratory Rate 28 H 08/07/16 13:50 Blood Pressure 106/77 08/07/16 13:50 O2 Sat by Pulse Oximetry (%) 98 08/07/16 09:57 Constitutional: Yes: Calm Eyes: Yes: Conjunctiva Clear HENT: Yes: Atraumatic Neck: Yes: Supple Cardiovascular: Yes: S1, S2 Respiratory: Yes: CTA Bilaterally Gastrointestinal: Yes: Normal Bowel Sounds, Soft Genitourinary: Yes: WNL Musculoskeletal: Yes: Muscle Weakness Edema: Yes Edema: LLE: 1+, RLE: 1+ Wound/Incision: Yes: Dressing Dry and Intact Neurological: Yes: Oriented Labs: CBC, BMP 08/07/16 05:45 08/07/16 05:45 INR, PTT INR 1.66 (0.82-1.09) H 08/07/16 05:45 - ....Imaging Chest X-ray: Report Reviewed Problem List - Problems (1) End stage renal disease on dialysis Code(s): N18.6 - END STAGE RENAL DISEASE Z99.2 - DEPENDENCE ON RENAL DIALYSIS (2) Hypotension Code(s): I95.9 - HYPOTENSION, UNSPECIFIED Qualifiers: Hypotension type: unspecified hypotension type Qualified Code(s): I95.9 - Hypotension, unspecified (3) Anemia Code(s): D64.9 - ANEMIA, UNSPECIFIED Qualifiers: Other causes of anemia: chronic disease, kidney Assessment/Plan Current Medications Generic Name Dose Route Start Last Admin Trade Name Freq PRN Reason Stop Dose Admin Acetaminophen 325 mg 07/29/16 11:06 Tylenol - PO Q6H PRN FEVER Amino Acids 30 ml 08/06/16 17:30 08/07/16 08:29 Prosource No Carb Liquid Pkt PO 30 ml BID@0800,1730 [facility] Administration Amiodarone HCl 400 mg 08/04/16 10:00 08/07/16 09:53 Cordarone - PO 400 mg DAILY [facility] Administration Brimonidine Tartrate 1 drop 07/29/16 22:00 08/07/16 09:54 Alphagan P 0.1% - OU 1 drop BID [facility] Administration Collagenase 1 applic 07/30/16 10:00 08/06/16 18:07 Santyl - TP 1 applic DAILY [facility] Administration IV Flush 4 ml 08/03/16 22:30 Triple Lumen Flush IVPUSH PRN PRN Protocol Dopamine HCl/Dextrose 250 mls @ 17.04 mls/hr 07/29/16 10:45 08/05/16 11:10 Dopamine 400 Mg/D5w - IVPB Not Given TITR [facility] Protocol 5 MCG/KG/MIN Norepinephrine Bitartrate 4, 500 mls @ 37.5 mls/hr 08/03/16 21:45 08/06/16 06: 00 000 mcg/ Dextrose IV 4 mcg/min TITR [facility] Titration Protocol 5 MCG/MIN Levothyroxine Sodium 50 mcg 07/30/16 07:00 08/07/16 07:19 Synthroid - PO 50 mcg DAILY@0700 [facility] Administration Multivit/Ca Carb/B Cmplx/FA/Prenat 1 tablet 08/06/16 11:45 08/07/16 09:53 Nephro-Mor - PO 1 tablet DAILY [facility] Administration Pantoprazole Sodium 40 mg 07/30/16 10:00 08/07/16 09:53 Protonix - PO 40 mg DAILY [facility] Administration Impression 1. ESRD on HD 2. hypotension 3. cellulitis/abscess of back 4. CHF 5. hypothyroidism 6. hyperlipidemia 7. COPD 8. a-fib 9. pleural effusion 10. respiratory failure requiring bipap Plan - HD today - UF has been difficult secondary to hypotension - cardiology follow up - wound care to legs - monitor blood pressure - cont bipap as needed - cont ICU care - will follow Dr Martinez
--- NOTE | 2016-08-07 16:19 | PROC ---
Procedure Note Procedure: BEDSIDE DEBRIDEMENT LLE: Achilles tendon exposed. Necrotic tissue/muscle excised using scissors RLE: Necrotic tissue/muscle excised using scissors Sacrum: Necrotic tissue/muscle excised using scissors LE dressing changes with liberal application of santyl, 4x4, kerlix Sacrum with wet to dry dressing changes BID Patient tolerated procedure well.
[2016-08-07] MEDS: COLLAGENASE CLOSTRIDIUM HIST. 30 GRAMS TUBE TP SCH (18:08)
[2016-08-08] MEDS: NOREPINEPHRINE BITARTRATE IV SCH ×2 (02:30→16:23)
[2016-08-08] MEDS: WATER IV SCH ×2 (02:30→16:23)
[2016-08-08] MEDS: DEXTROSE 5% IV SCH ×2 (02:30→16:23)
[2016-08-08] MEDS ORDERED: NOREPINEPHRINE BITARTRATE 4 MG/4 ML ML IV ONE ×2 (03:25→16:17)
[2016-08-08] MEDS: LEVOTHYROXINE NA 50 MCG TABLET (FP) PO SCH ×2 (06:36→11:13)
[2016-08-08 07:06] LABS: CALCIUM 7.9 mg/dL (8.5-10.1)
[2016-08-08 07:10] LABS: BILIRUBIN,TOTAL 2.3 mg/dL (0.2-1.0); CREATININE 2.7 mg/dL (0.7-1.3); TOT PROT 5.6 g/dl (6.4-8.2)
[2016-08-08] MEDS: NOREPINEPHRINE BITARTRATE 4,000 MCG in DEXTROSE 5%-WATER - 496 ML IV SCH (07:30)
[2016-08-08 07:39] LABS: ARTERIAL BLD GAS O2 SATURATION 98.1 % (90-98.9); ARTERIAL BLOOD GAS BASE EXCESS 0.2 meq/l (-2-2); ARTERIAL BLOOD GAS HCO3 27.1 meq/L (22-26)
[2016-08-08 07:40] LABS: ALLENS TEST POSITIVE; ART PUNCT SITE RIGHT RADIAL; LPM/O2% 5L; PT. ON O2? YES; TYPE OF O2 NASAL O2
[2016-08-08 07:41] LABS: ARTERIAL BLOOD GAS pH 7.27 (7.35-7.45)
[2016-08-08] MEDS ORDERED: NOREPINEPHRINE BITARTRATE 8,000 MCG in DEXTROSE 5%-WATER - 492 ML IV SCH (07:45)
[2016-08-08 08:34] LABS: MCH 28.3 pg (25.7-33.7); MCHC 29.7 g/dl (32.0-35.9); MEAN CELL VOLUME 95.4 fl (80-96); MEAN PLT VOLUME 9.6 fl (7.5-11.1); RDW 21.9 % (11.9-15.9); WHITE BLOOD COUNT 21.9 K/mm3 (4.0-10.0)
[2016-08-08 08:35] LABS: PLATELET COUNT 54 K/MM3 (134-434)
--- NOTE | 2016-08-08 09:28 | PN ---
Progress Note (short form) - Note Progress Note: Subjective Patient seen and examined in ICU. Chart reviewed. Comfortable. On BIPAP remains on pressors Had debrediment of wounds yesterday Objective Problem List - Problems (1) Congestive heart failure (CHF) Code(s): I50.9 - HEART FAILURE, UNSPECIFIED Qualifiers: Congestive heart failure type: systolic Congestive heart failure chronicity: chronic Qualified Code(s): I50.22 - Chronic systolic (congestive ) heart failure (2) DMII (diabetes mellitus, type 2) Code(s): E11.9 - TYPE 2 DIABETES MELLITUS WITHOUT COMPLICATIONS Qualifiers: Diabetes mellitus complication detail: with other kidney complication (3) HTN (hypertension) Code(s): I10 - ESSENTIAL (PRIMARY) HYPERTENSION Qualifiers: Hypertension type: essential hypertension Qualified Code(s): I10 - Essential (primary) hypertension (4) Pressure ulcer of lower extremity, stage 1 Code(s): L89.891 - PRESSURE ULCER OF OTHER SITE, STAGE 1 (5) Sepsis Code(s): A41.9 - SEPSIS, UNSPECIFIED ORGANISM Qualifiers: Sepsis type: sepsis due to unspecified organism Qualified Code(s): A41.9 - Sepsis, unspecified organism (6) Rapid atrial fibrillation Code(s): I48.91 - UNSPECIFIED ATRIAL FIBRILLATION (7) Functional quadriplegia Code(s): R53.2 - FUNCTIONAL QUADRIPLEGIA (8) End stage renal disease on dialysis Code(s): N18.6 - END STAGE RENAL DISEASE Z99.2 - DEPENDENCE ON RENAL DIALYSIS Last Vital Signs Temp Pulse Resp BP Pulse Ox 98 F 90 18 84/64 94 L 08/08/16 02:00 08/08/16 08:00 08/08/16 08:00 08/08/16 08:00 08/07/16 21:00 Physical Exam Constitutional: Yes: No Distress Cardiovascular: Yes: Pulse Irregular Respiratory: Yes: Diminished Gastrointestinal: Yes: Normal Bowel Sounds, Soft. No: Abdomen, Obese, Tenderness Extremities: Yes: Other (leg wounds) Edema: Yes Edema: LLE: Trace, RLE: Trace Psychiatric: Yes: Alert Labs: CBC, BMP 08/08/16 05:30 08/08/16 05:30 Assessment and Plan Overall condition remains same Off abx s/p debrediment taper of repressors condition remains poor Patient is DNR Discussed with ICU attending also Critical care time 25 minutes. Documentation prepared by Mayra Hedrick, acting as a medical records auditor for Oziel Casey MD.
--- NOTE | 2016-08-08 10:00 | PN ---
Physical Exam: SUBJECTIVE: Patient seen and examined at bedside this AM in ICU. AAO and at mental status baseline. States he feels fine & is not experiencing any leg pain since procedure yesterday. Afebrile overnight with stable vitals on pressor support. OBJECTIVE: Vital Signs Period Temp Pulse Resp BP Sys/Hubbadr Pulse Ox Last 24 Hr 97.1 F-98 F 88-105 17-30 80-122/52-84 94 GENERAL: Awake, alert, and fully oriented, in no acute distress. Resting comfortably in bed on bipap. HEENT: Atraumatic, EOMI, PERRLA, No lymphadenopathy, dry membranes LUNGS: mild bibasilar crackles noted, no wheezing or accessory muscle use HEART: irregular, tachycardic, S1 and S2 without murmur, rub or gallop. ABDOMEN: Soft, nontender, not distended, normoactive bowel sounds EXTREMITIES: 1+ pulses, warm, well-perfused. No calf tenderness. +1 bilateral pitting edema in lower extremity NEUROLOGICAL: Cranial nerves II-XII intact. Normal speech. Gait not observed. PSYCHIATRIC: Cooperative. Good eye contact. Appropriate mood and affect. Able to answer questions and make requests. SKIN: multiple stage III decubitus to buttocks, shins and scrotum Laboratory Results - last 24 hr 08/07/16 08/07/16 08/08/16 05:45 10:10 05:30 WBC 21.9 H D RBC 3.18 L Hgb 9.0 L Hct 30.3 L MCV 95.4 MCHC 29.7 L RDW 21.9 H Plt Count 54 L D MPV 9.6 Polychromasia 1+ Hypochromic-Microcytic 2+ Poikilocytosis 1+ Anisocytosis 3+ Microcytosis 1+ Macrocytosis 2+ Target Cells 2+ Acanthocytes (Spur) 1+ Fragmented RBCs Few Puncture Site Right radial ABG pH 7.27 L D ABG pCO2 at Pt Temp 61.2 H* D ABG pO2 at Pt Temp 72.8 D ABG HCO3 27.3 H ABG O2 Sat (Measured) 92.6 ABG O2 Content 11.5 L ABG Base Excess 0.4 Frankie Test Positive O2 Delivery Device N/c Oxygen Flow Rate 5 PEEP 0.0 Sodium Potassium Chloride Carbon Dioxide Anion Gap BUN Creatinine Creat Clearance w eGFR Random Glucose Calcium Total Bilirubin AST ALT Alkaline Phosphatase Total Protein Albumin 08/08/16 08/08/16 05:30 07:20 WBC RBC Hgb Hct MCV MCHC RDW Plt Count MPV Polychromasia Hypochromic-Microcytic Poikilocytosis Anisocytosis Microcytosis Macrocytosis Target Cells Acanthocytes (Spur) Fragmented RBCs Puncture Site Right radial ABG pH 7.27 L ABG pCO2 at Pt Temp 60.9 H* ABG pO2 at Pt Temp 104.0 H D ABG HCO3 27.1 H ABG O2 Sat (Measured) 98.1 ABG O2 Content 12.5 L ABG Base Excess 0.2 Frankie Test Positive O2 Delivery Device Nasal o2 Oxygen Flow Rate 5l PEEP Sodium 137 Potassium 3.7 Chloride 97 L Carbon Dioxide 28 Anion Gap 12 BUN 27 H Creatinine 2.7 H D Creat Clearance w eGFR 23.09 Random Glucose 188 H D Calcium 7.9 L Total Bilirubin 2.3 H D AST 8 L D ALT 18 Alkaline Phosphatase 112 Total Protein 5.6 L Albumin 2.0 L Active Medications Generic Name Dose Route Start Last Admin Trade Name Freq PRN Reason Stop Dose Admin Acetaminophen 325 mg 07/29/16 11:06 Tylenol - PO Q6H PRN FEVER Amino Acids 30 ml 08/06/16 17:30 08/07/16 18:08 Prosource No Carb Liquid Pkt PO 30 ml BID@0800,1730 [facility] Administration Amiodarone HCl 400 mg 08/04/16 10:00 08/07/16 09:53 Cordarone - PO 400 mg DAILY [facility] Administration Brimonidine Tartrate 1 drop 07/29/16 22:00 08/07/16 22:00 Alphagan P 0.1% - OU 1 drop BID [facility] Administration Collagenase 1 applic 07/30/16 10:00 08/07/16 18:08 Santyl - TP 1 applic DAILY [facility] Administration Fentanyl 50 mcg 08/07/16 16:58 Sublimaze Injection - IVPUSH 08/08/16 16:59 Q6H PRN PAIN LEVEL 6-10 IV Flush 4 ml 08/03/16 22:30 Triple Lumen Flush IVPUSH PRN PRN Protocol Norepinephrine Bitartrate 8, 1,008 mls @ 37.8 mls/hr 08/08/16 07:45 08/08/16 02 :30 000 mcg/ Dextrose IV 75.6 mls/hr TITR [facility] Administration Protocol 5 MCG/MIN Levothyroxine Sodium 50 mcg 07/30/16 07:00 08/08/16 06:36 Synthroid - PO Not Given DAILY@0700 [facility] Multivit/Ca Carb/B Cmplx/FA/Prenat 1 tablet 08/06/16 11:45 08/07/16 09:53 Nephro-Mor - PO 1 tablet DAILY [facility] Administration Pantoprazole Sodium 40 mg 07/30/16 10:00 08/07/16 09:53 Protonix - PO 40 mg DAILY [facility] Administration ASSESSMENT/PLAN: 76 year old male with PMH of A-Fib, CAD, Systolic CHF, HTN/HLD, COPD, PUD, ESRD on HD, multiple lower back ulcers, hypothyroidism & DM who is sent to ICU s/p rapid response for hypotension. #Septic Shock, likely secondary to multiple decubitus ulcers -BP support with Levophed at present, started low-dose Dobutamine in attempt to wean off pressors -bedside debridement with vascular surgery yesterday, successful & without complication -patient has severe systolic CHF, MAP >55 is acceptable -collagenase administered to ulcers -ID Consult appreciated #ESRD on HD -HD as per nephrology -avoid nephrotoxic meds -Nephrology consult appreciated #Atrial Fibrillation/CAD Hx/CHF Hx -Not a candidate for AC -on Amiodarone 400mg PO daily, as per cardiology -cardiology consult appreciated #COPD -Duonebs QIDR -Albuterol PRN -saturating well on NC @5L last 2 days but midlly hypercapenic, will keep on Bipap for today -BiPap at night and as needed starting tomorrow #Hypothyroidism -continue home meds: Synthroid 50mcg Prophylaxis -SCD's -PPI -cautious with IVF administration -monitor electrolytes -Dysphasia Pureed diet, Prosource, Nephrovite Dispo: Palliative Care consulted. Patient is DNR. Niece is HCP. Patient is estranged from his & states that he does not want her to visit him. informed while attempting to visit. Visit type - Emergency Visit Emergency Visit: Yes ED Registration Date: 07/24/16 Care time: The patient presented to the Emergency Department on the above date and was hospitalized for further evaluation of their emergent condition. - New Patient This patient is new to me today: No - Critical Care Critical Care patient: Yes Total Critical Care Time (in minutes): 45 Critical Care Statement: The care of this patient involved high complexity decision making to prevent further life threatening deterioration of the patient 's condition and/or to evalute & treat vital organ system(s) failure or risk of failure.
[2016-08-08] MEDS ORDERED: PT OWN MED DRAWER 7, Y5N ONE (10:56)
[2016-08-08] MEDS: AMIODARONE HCL 200 MG TABLET (FP) PO SCH (11:12)
[2016-08-08] MEDS: VITAMIN B COMP W-C 1 EA TABLET PO SCH (11:12)
[2016-08-08] MEDS: PANTOPRAZOLE 40 MG TABLET (FP) PO SCH (11:13)
[2016-08-08] MEDS: AMINO ACIDS/PROTEIN HYDROLYS 30 ML LIQUID.PKT PO SCH (11:14)
[2016-08-08] MEDS: BRIMONIDINE TARTRATE 0.1% OPHTHALMIC 5 ML BOTTLE OU SCH ×2 (11:15→22:00)
[2016-08-08] MEDS: COLLAGENASE CLOSTRIDIUM HIST. 30 GRAMS TUBE TP SCH ×3 (11:16→12:00)
--- NOTE | 2016-08-08 12:10 | PN ---
Progress Note, Physician History of Present Illness: Pt seen and examined at bedside. He is awake and remains in ICU. He is on Bipap. - Current Medication List Current Medications: Active Medications Acetaminophen (Tylenol -) 325 mg PO Q6H PRN PRN Reason: FEVER Amino Acids (Prosource No Carb Liquid Pkt) 30 ml PO BID@0800,1730 [facility] Last Admin: 08/08/16 11:14 Dose: 30 ml Amiodarone HCl (Cordarone -) 400 mg PO DAILY [facility] Last Admin: 08/08/16 11:12 Dose: 400 mg Brimonidine Tartrate (Alphagan P 0.1% -) 1 drop OU BID [facility] Last Admin: 08/08/16 11:15 Dose: 1 drop Collagenase (Santyl -) 1 applic TP DAILY [facility] Last Admin: 08/08/16 11:18 Dose: Not Given Fentanyl (Sublimaze Injection -) 50 mcg IVPUSH Q6H PRN PRN Reason: PAIN LEVEL 6-10 Stop: 08/08/16 16:59 IV Flush (Triple Lumen Flush) 4 ml IVPUSH PRN PRN PRN Reason: Protocol Norepinephrine Bitartrate 8, (000 mcg/ Dextrose) 1,008 mls @ 37.8 mls/hr IV TITR [facility]; 5 MCG/MIN PRN Reason: Protocol Last Admin: 08/08/16 02:30 Dose: 75.6 mls/hr Dobutamine HCl/Dextrose (Dobutamine 250 Mg/D5w -) 250 mls @ 13.455 mls/hr IV TITR [facility]; 2.5 MCG/KG/MIN PRN Reason: Protocol Levothyroxine Sodium (Synthroid -) 50 mcg PO DAILY@0700 [facility] Last Admin: 08/08/16 11:13 Dose: 50 mcg Multivit/Ca Carb/B Cmplx/FA/Prenat (Nephro-Mor -) 1 tablet PO DAILY [facility] Last Admin: 08/08/16 11:12 Dose: 1 tablet Pantoprazole Sodium (Protonix -) 40 mg PO DAILY [facility] Last Admin: 08/08/16 11:13 Dose: 40 mg - Objective Vital Signs: Vital Signs Temperature 98 F 08/08/16 02:00 Pulse Rate 90 08/08/16 08:00 Respiratory Rate 18 08/08/16 10:00 Blood Pressure 87/72 08/08/16 10:00 O2 Sat by Pulse Oximetry (%) 96 08/08/16 10:25 Constitutional: Yes: Calm Cardiovascular: Yes: S1, S2 Respiratory: Yes: On BiPap Gastrointestinal: Yes: Soft Genitourinary: Yes: Incontinence Musculoskeletal: Yes: Muscle Weakness Edema: Yes Edema: LLE: 1+, RLE: 1+ Wound/Incision: Yes: Dressing Dry and Intact Neurological: Yes: Oriented Psychiatric: Yes: Oriented Labs: CBC, BMP 08/08/16 05:30 08/08/16 05:30 INR, PTT INR 1.66 (0.82-1.09) H 08/07/16 05:45 - ....Imaging Chest X-ray: Report Reviewed Problem List - Problems (1) End stage renal disease on dialysis Code(s): N18.6 - END STAGE RENAL DISEASE Z99.2 - DEPENDENCE ON RENAL DIALYSIS (2) Hypotension Code(s): I95.9 - HYPOTENSION, UNSPECIFIED Qualifiers: Hypotension type: unspecified hypotension type Qualified Code(s): I95.9 - Hypotension, unspecified (3) Anemia Code(s): D64.9 - ANEMIA, UNSPECIFIED Qualifiers: Other causes of anemia: chronic disease, kidney Assessment/Plan Current Medications Generic Name Dose Route Start Last Admin Trade Name Freq PRN Reason Stop Dose Admin Acetaminophen 325 mg 07/29/16 11:06 Tylenol - PO Q6H PRN FEVER Amino Acids 30 ml 08/06/16 17:30 08/08/16 11:14 Prosource No Carb Liquid Pkt PO 30 ml BID@0800,1730 [facility] Administration Amiodarone HCl 400 mg 08/04/16 10:00 08/08/16 11:12 Cordarone - PO 400 mg DAILY [facility] Administration Brimonidine Tartrate 1 drop 07/29/16 22:00 08/08/16 11:15 Alphagan P 0.1% - OU 1 drop BID [facility] Administration Collagenase 1 applic 07/30/16 10:00 08/08/16 11:18 Santyl - TP Not Given DAILY [facility] Fentanyl 50 mcg 08/07/16 16:58 Sublimaze Injection - IVPUSH 08/08/16 16:59 Q6H PRN PAIN LEVEL 6-10 IV Flush 4 ml 08/03/16 22:30 Triple Lumen Flush IVPUSH PRN PRN Protocol Norepinephrine Bitartrate 8, 1,008 mls @ 37.8 mls/hr 08/08/16 07:45 08/08/16 02 :30 000 mcg/ Dextrose IV 75.6 mls/hr TITR [facility] Administration Protocol 5 MCG/MIN Dobutamine HCl/Dextrose 250 mls @ 13.455 mls/hr 08/08/16 12:00 Dobutamine 250 Mg/D5w - IV TITR [facility] Protocol 2.5 MCG/KG/MIN Levothyroxine Sodium 50 mcg 07/30/16 07:00 08/08/16 11:13 Synthroid - PO 50 mcg DAILY@0700 [facility] Administration Multivit/Ca Carb/B Cmplx/FA/Prenat 1 tablet 08/06/16 11:45 08/08/16 11:12 Nephro-Mor - PO 1 tablet DAILY [facility] Administration Pantoprazole Sodium 40 mg 07/30/16 10:00 08/08/16 11:13 Protonix - PO 40 mg DAILY [facility] Administration Impression 1. ESRD on HD 2. hypotension 3. cellulitis/abscess of back 4. CHF 5. hypothyroidism 6. hyperlipidemia 7. COPD 8. a-fib 9. pleural effusion 10. respiratory failure requiring bipap Plan - HD in am - cont management per ICU team - UF has been difficult secondary to hypotension - cardiology follow up - wound care to legs - cont bipap as needed - cont ICU care - will follow - prognosis is poor Dr Martinez
[2016-08-08 12:31] LABS: PLATELET ESTIMATE DECREASED (NORMAL)
--- NOTE | 2016-08-08 13:23 | PN ---
Teaching Attending Note Name of Resident: Irvin Harden ATTENDING PHYSICIAN STATEMENT I saw and evaluated the patient. I reviewed the resident's note and discussed the case with the resident. I agree with the resident's findings and plan as documented. SUBJECTIVE: Patient seen and examined in the ICU. Remains on 8 mcq NE for hemodynamic support. Awake and interactive. S/P debridement yesterday. Intake & Output 08/05/16 08/06/16 08/07/16 08/08/16 23:59 23:59 23:59 23:59 Intake Total 2504 913 7148 210 Balance 2548 263 1962 210 Weight 185 lb 9 oz 187 lb 6.287 oz 187 lb 6.287 oz 197 lb 12.074 oz Last Vital Signs Temp Pulse Resp BP Pulse Ox 98 F 82 18 81/62 96 08/08/16 02:00 08/08/16 12:00 08/08/16 12:00 08/08/16 12:00 08/08/16 10:25 Active Medications Acetaminophen (Tylenol -) 325 mg PO Q6H PRN PRN Reason: FEVER Albumin Human (Albumin Human 25%) 12.5 gm IVPB Q30M [facility] Amino Acids (Prosource No Carb Liquid Pkt) 30 ml PO BID@0800,1730 [facility] Last Admin: 08/08/16 11:14 Dose: 30 ml Amiodarone HCl (Cordarone -) 400 mg PO DAILY [facility] Last Admin: 08/08/16 11:12 Dose: 400 mg Brimonidine Tartrate (Alphagan P 0.1% -) 1 drop OU BID [facility] Last Admin: 08/08/16 11:15 Dose: 1 drop Collagenase (Santyl -) 1 applic TP DAILY [facility] Last Admin: 08/08/16 11:18 Dose: Not Given Epoetin Wilson (Epogen -) 8,000 units IVPUSH ONCE ONE Stop: 08/09/16 12:11 Fentanyl (Sublimaze Injection -) 50 mcg IVPUSH Q6H PRN PRN Reason: PAIN LEVEL 6-10 Stop: 08/08/16 16:59 IV Flush (Triple Lumen Flush) 4 ml IVPUSH PRN PRN PRN Reason: Protocol Norepinephrine Bitartrate 8, (000 mcg/ Dextrose) 1,008 mls @ 37.8 mls/hr IV TITR [facility]; 5 MCG/MIN PRN Reason: Protocol Last Admin: 08/08/16 02:30 Dose: 75.6 mls/hr Dobutamine HCl/Dextrose (Dobutamine 250 Mg/D5w -) 250 mls @ 13.455 mls/hr IV TITR [facility]; 2.5 MCG/KG/MIN PRN Reason: Protocol Levothyroxine Sodium (Synthroid -) 50 mcg PO DAILY@0700 [facility] Last Admin: 08/08/16 11:13 Dose: 50 mcg Multivit/Ca Carb/B Cmplx/FA/Prenat (Nephro-Mor -) 1 tablet PO DAILY [facility] Last Admin: 08/08/16 11:12 Dose: 1 tablet Pantoprazole Sodium (Protonix -) 40 mg PO DAILY [facility] Last Admin: 08/08/16 11:13 Dose: 40 mg Gen: Awake and responsive, mildly tachypneic on NIPPV Heart: RRR Lung: scattered rhonchi Abd: soft, nontender Ext: no edema, intact dressings Laboratory Results - last 24 hr 08/08/16 08/08/16 08/08/16 05:30 05:30 07:20 WBC 21.9 H D RBC 3.18 L Hgb 9.0 L Hct 30.3 L MCV 95.4 MCHC 29.7 L RDW 21.9 H Plt Count 54 L D MPV 9.6 Puncture Site Right radial ABG pH 7.27 L ABG pCO2 at Pt Temp 60.9 H* ABG pO2 at Pt Temp 104.0 H D ABG HCO3 27.1 H ABG O2 Sat (Measured) 98.1 ABG O2 Content 12.5 L ABG Base Excess 0.2 Frankie Test Positive O2 Delivery Device Nasal o2 Oxygen Flow Rate 5l Sodium 137 Potassium 3.7 Chloride 97 L Carbon Dioxide 28 Anion Gap 12 BUN 27 H Creatinine 2.7 H D Creat Clearance w eGFR 23.09 Random Glucose 188 H D Calcium 7.9 L Total Bilirubin 2.3 H D AST 8 L D ALT 18 Alkaline Phosphatase 112 Total Protein 5.6 L Albumin 2.0 L CXR: Right effusion / increasing vascular congestion/effusion ASSESSMENT AND PLAN: Acute on Chronic Hypoxic and Hypercapneic Respiratory Failure Sacral Decubitus Ulcer Infection Septic Shock Lactic Acidosis ESRD on HD Severe LV Systolic Dysfunction Atrial Fibrillation CAD - antibiotics per ID - local wound care per surgery - Trial of Inotrope - taper NE drip to maintain MAP > 50 to 55 - NIPPV as needed to assist in work of breathing - O2 to keep SpO2 >90% - HD per renal - aspiration precautions - wound care - DVT prophylaxis - continue discussions regarding goals of care as pt chronically ill with prolonged multiple hospitalizations Dr Farrell Critical care time spent in reviewing chart, evaluating patient and formulating plan 35 min
[2016-08-08] MEDS ORDERED: DOBUTAMINE 250 MG/D5W - 250 ML ONE (13:49)
[2016-08-08] MEDS: DOBUTAMINE 250 MG/D5W - 250 ML IV SCH (13:54)
--- NOTE | 2016-08-08 14:13 | PN ---
Progress Note, Physician Chief Complaint: tachycardia persists. comfortable on bipap History of Present Illness: This is a 76 year old male with known CAD, afib, chronic systolic chf, htn, dm, ckd, hld, and ckd with multiple recent admissions for infection/sepsis admitted with hypotension and tachycardia in setting of sepsis. He is s/p debridement of foot and sacral ulcers. - Current Medication List Current Medications: Active Medications Acetaminophen (Tylenol -) 325 mg PO Q6H PRN PRN Reason: FEVER Albumin Human (Albumin Human 25%) 12.5 gm IVPB Q30M [facility] Amino Acids (Prosource No Carb Liquid Pkt) 30 ml PO BID@0800,1730 [facility] Last Admin: 08/08/16 11:14 Dose: 30 ml Amiodarone HCl (Cordarone -) 400 mg PO DAILY [facility] Last Admin: 08/08/16 11:12 Dose: 400 mg Brimonidine Tartrate (Alphagan P 0.1% -) 1 drop OU BID [facility] Last Admin: 08/08/16 11:15 Dose: 1 drop Collagenase (Santyl -) 1 applic TP DAILY [facility] Last Admin: 08/08/16 11:18 Dose: Not Given Epoetin Wilson (Epogen -) 8,000 units IVPUSH ONCE ONE Stop: 08/09/16 12:11 Fentanyl (Sublimaze Injection -) 50 mcg IVPUSH Q6H PRN PRN Reason: PAIN LEVEL 6-10 Stop: 08/08/16 16:59 IV Flush (Triple Lumen Flush) 4 ml IVPUSH PRN PRN PRN Reason: Protocol Norepinephrine Bitartrate 8, (000 mcg/ Dextrose) 1,008 mls @ 37.8 mls/hr IV TITR [facility]; 5 MCG/MIN PRN Reason: Protocol Last Admin: 08/08/16 02:30 Dose: 75.6 mls/hr Dobutamine HCl/Dextrose (Dobutamine 250 Mg/D5w -) 250 mls @ 13.455 mls/hr IV TITR [facility]; 2.5 MCG/KG/MIN PRN Reason: Protocol Last Admin: 08/08/16 13:54 Dose: 13.455 mls/hr Levothyroxine Sodium (Synthroid -) 50 mcg PO DAILY@0700 [facility] Last Admin: 08/08/16 11:13 Dose: 50 mcg Multivit/Ca Carb/B Cmplx/FA/Prenat (Nephro-Mor -) 1 tablet PO DAILY [facility] Last Admin: 08/08/16 11:12 Dose: 1 tablet Pantoprazole Sodium (Protonix -) 40 mg PO DAILY [facility] Last Admin: 08/08/16 11:13 Dose: 40 mg - Objective Vital Signs: Vital Signs Temperature 98 F 08/08/16 02:00 Pulse Rate 82 08/08/16 12:00 Respiratory Rate 18 08/08/16 12:00 Blood Pressure 81/62 08/08/16 12:00 O2 Sat by Pulse Oximetry (%) 96 08/08/16 10:25 Constitutional: Yes: No Distress Eyes: Yes: Conjunctiva Clear HENT: Yes: Atraumatic, Normocephalic Neck: Yes: Supple, Trachea Midline Cardiovascular: Yes: Tachycardia Respiratory: Yes: CTA Bilaterally Extremities: Yes: Cool Edema: Yes Peripheral Pulses WNL: No Labs: CBC, BMP 08/08/16 05:30 08/08/16 05:30 INR, PTT INR 1.66 (0.82-1.09) H 08/07/16 05:45 Assessment/Plan 1) Sepsis/Hypotension -Hypotension due to infection. On pressors for blood pressure support. IVFluid boluses as needed. antibiotics as per primary team and pressors as needed for hemodynamic support -B/l lower extremity wounds being followed by vascular. s/p debridement tolerated well. 2) Afib Ventricular rates controlled today. No av higinio blockers as BP would not tolerate. amiodarone to 400mg daily. AC is currently on hold. Replete lytes as needed 3) CHF No dyllan/arb or bblocker due to hypotension. IVF's as needed for hypotension along with pressures if needed. Prognosis is very poor. follow Goals of care. Will follow as needed. No further suggestions.
[2016-08-09 06:31] LABS: MCH 27.7 pg (25.7-33.7); MCHC 29.5 g/dl (32.0-35.9); MEAN CELL VOLUME 93.8 fl (80-96); MEAN PLT VOLUME 10.8 fl (7.5-11.1); PLATELET COUNT 42 K/MM3 (134-434); RDW 22.1 % (11.9-15.9); WHITE BLOOD COUNT 14.4 K/mm3 (4.0-10.0)
[2016-08-09 06:44] LABS: INR 1.62 (0.82-1.09)
[2016-08-09 06:47] LABS: ACTIVATED PTT 53.9 SECONDS (26.9-34.4)
[2016-08-09 07:00] LABS: CALCIUM 7.8 mg/dL (8.5-10.1); CREATININE 3.1 mg/dL (0.7-1.3)
[2016-08-09] MEDS: AMINO ACIDS/PROTEIN HYDROLYS 30 ML LIQUID.PKT PO SCH ×3 (07:41→17:22)
[2016-08-09] MEDS: LEVOTHYROXINE NA 50 MCG TABLET (FP) PO SCH (07:42)
[2016-08-09] MEDS: DEXTROSE 5% IV SCH (08:18)
[2016-08-09] MEDS: NOREPINEPHRINE BITARTRATE IV SCH (08:18)
[2016-08-09] MEDS: WATER IV SCH (08:18)
[2016-08-09] MEDS ORDERED: EPOETIN ALFA 10,000 UNIT/1 ML VIAL IVPUSH ONE (08:30)
[2016-08-09] MEDS ORDERED: NOREPINEPHRINE BITARTRATE 4 MG/4 ML ML IV ONE ×3 (08:34→23:19)
[2016-08-09] MEDS: ALBUMIN HUMAN 25% 12.5 GM/50 ML VIAL IVPB SCH ×3 (08:37→09:44)
[2016-08-09] MEDS: PANTOPRAZOLE 40 MG TABLET (FP) PO SCH (09:30)
[2016-08-09] MEDS: VITAMIN B COMP W-C 1 EA TABLET PO SCH (09:30)
[2016-08-09] MEDS: AMIODARONE HCL 200 MG TABLET (FP) PO SCH (09:30)
[2016-08-09] MEDS: COLLAGENASE CLOSTRIDIUM HIST. 30 GRAMS TUBE TP SCH (09:31)
[2016-08-09] MEDS: BRIMONIDINE TARTRATE 0.1% OPHTHALMIC 5 ML BOTTLE OU SCH ×2 (09:32→21:29)
--- NOTE | 2016-08-09 09:52 | PN ---
Progress Note (short form) - Note Progress Note: Patient seen and examined in the ICU. Currently on Dobutamine 5 / NE 30 while on acute HD. Awake and interactive on NIPPV. Intake & Output 08/06/16 08/07/16 08/08/16 08/09/16 23:59 23:59 23:59 23:59 Intake Total 930 2786 1511 0 Balance 930 2786 1511 0 Weight 187 lb 6.287 oz 187 lb 6.287 oz 197 lb 12.074 oz 198 lb 9.6 oz Last Vital Signs Temp Pulse Resp BP Pulse Ox 97.4 F L 103 H 18 95/56 95 08/09/16 07:05 08/09/16 09:00 08/09/16 09:00 08/09/16 09:00 08/08/16 21:00 Active Medications Acetaminophen (Tylenol -) 325 mg PO Q6H PRN PRN Reason: FEVER Albumin Human (Albumin Human 25%) 12.5 gm IVPB Q30M [facility] Stop: 08/09/16 10:31 Last Admin: 08/09/16 09:44 Dose: 12.5 gm Amino Acids (Prosource No Carb Liquid Pkt) 30 ml PO BID@0800,1730 [facility] Last Admin: 08/09/16 08:18 Dose: 30 ml Amiodarone HCl (Cordarone -) 400 mg PO DAILY [facility] Last Admin: 08/09/16 09:30 Dose: 400 mg Brimonidine Tartrate (Alphagan P 0.1% -) 1 drop OU BID [facility] Last Admin: 08/09/16 09:32 Dose: 1 drop Collagenase (Santyl -) 1 applic TP DAILY [facility] Last Admin: 08/09/16 09:31 Dose: 1 applic IV Flush (Triple Lumen Flush) 4 ml IVPUSH PRN PRN PRN Reason: Protocol Norepinephrine Bitartrate 8, (000 mcg/ Dextrose) 1,008 mls @ 37.8 mls/hr IV TITR [facility]; 5 MCG/MIN PRN Reason: Protocol Last Admin: 08/09/16 08:18 Dose: 75.6 mls/hr Dobutamine HCl/Dextrose (Dobutamine 250 Mg/D5w -) 250 mls @ 13.455 mls/hr IV TITR [facility]; 2.5 MCG/KG/MIN PRN Reason: Protocol Last Admin: 08/08/16 13:54 Dose: 13.455 mls/hr Levothyroxine Sodium (Synthroid -) 50 mcg PO DAILY@0700 [facility] Last Admin: 08/09/16 07:42 Dose: Not Given Multivit/Ca Carb/B Cmplx/FA/Prenat (Nephro-Mor -) 1 tablet PO DAILY [facility] Last Admin: 08/09/16 09:30 Dose: 1 tablet Pantoprazole Sodium (Protonix -) 40 mg PO DAILY [facility] Last Admin: 08/09/16 09:30 Dose: 40 mg Gen: Awake and responsive, mildly tachypneic on NIPPV Heart: RRR Lung: scattered rhonchi Abd: soft, nontender Ext: no edema, intact dressings Laboratory Results - last 24 hr 08/08/16 08/09/16 08/09/16 05:30 05:50 05:50 WBC 14.4 H D RBC 2.89 L Hgb 8.0 L D Hct 27.1 L MCV 93.8 MCHC 29.5 L RDW 22.1 H Plt Count 42 L D MPV 10.8 D Neutrophils % 80.0 Lymphocytes % 9.0 Monocytes % 10.0 Band Neutrophils 1.0 D Nucleated RBCs 1 H Differential Comment Manual diff done Platelet Estimate Decreased INR 1.62 H PTT (Actin FS) 53.9 H Sodium Potassium Chloride Carbon Dioxide Anion Gap BUN Creatinine Random Glucose Calcium 08/09/16 05:50 WBC RBC Hgb Hct MCV MCHC RDW Plt Count MPV Neutrophils % Lymphocytes % Monocytes % Band Neutrophils Nucleated RBCs Differential Comment Platelet Estimate INR PTT (Actin FS) Sodium 132 L Potassium 3.7 Chloride 93 L Carbon Dioxide 27 Anion Gap 12 BUN 38 H D Creatinine 3.1 H Random Glucose 206 H Calcium 7.8 L ASSESSMENT AND PLAN: Acute on Chronic Hypoxic and Hypercapneic Respiratory Failure Sacral Decubitus Ulcer Infection Septic Shock Lactic Acidosis ESRD on HD Severe LV Systolic Dysfunction Atrial Fibrillation CAD - antibiotics per ID - local wound care per surgery - Continue trial of Inotrope - Taper NE drip to maintain MAP > 50 to 55 - NIPPV as needed to assist in work of breathing - O2 to keep SpO2 >90% - HD per renal - aspiration precautions - wound care - DVT prophylaxis - continue discussions regarding goals of care as pt chronically ill with prolonged multiple hospitalizations Dr Farrell Critical care time spent in reviewing chart, evaluating patient and formulating plan 35 min
--- NOTE | 2016-08-09 10:05 | PN ---
Progress Note (short form) - Note Progress Note: RENAL On hd now cant give a history BP has been low and cant get too much fluid out Last Vital Signs Temp Pulse Resp BP Pulse Ox 97.4 F L 103 H 18 95/56 95 08/09/16 07:05 08/09/16 09:00 08/09/16 09:00 08/09/16 09:00 08/08/16 21:00 lungs decreased breath sounds cvs s1s2 rr abd soft ext +edema neuro arousable Current Medications Generic Name Dose Route Start Last Admin Trade Name Freq PRN Reason Stop Dose Admin Acetaminophen 325 mg 07/29/16 11:06 Tylenol - PO Q6H PRN FEVER Albumin Human 12.5 gm 08/09/16 09:00 08/09/16 09:44 Albumin Human 25% IVPB 08/09/16 10:31 12.5 gm Q30M [facility] Administration Amino Acids 30 ml 08/06/16 17:30 08/09/16 08:18 Prosource No Carb Liquid Pkt PO 30 ml BID@0800,1730 [facility] Administration Amiodarone HCl 400 mg 08/04/16 10:00 08/09/16 09:30 Cordarone - PO 400 mg DAILY [facility] Administration Brimonidine Tartrate 1 drop 07/29/16 22:00 08/09/16 09:32 Alphagan P 0.1% - OU 1 drop BID [facility] Administration Collagenase 1 applic 07/30/16 10:00 08/09/16 09:31 Santyl - TP 1 applic DAILY [facility] Administration IV Flush 4 ml 08/03/16 22:30 Triple Lumen Flush IVPUSH PRN PRN Protocol Norepinephrine Bitartrate 8, 1,008 mls @ 37.8 mls/hr 08/08/16 07:45 08/09/16 08 :18 000 mcg/ Dextrose IV 75.6 mls/hr TITR [facility] Administration Protocol 5 MCG/MIN Dobutamine HCl/Dextrose 250 mls @ 13.455 mls/hr 08/08/16 12:00 08/08/16 13:54 Dobutamine 250 Mg/D5w - IV 13.455 mls/hr TITR [facility] Administration Protocol 2.5 MCG/KG/MIN Levothyroxine Sodium 50 mcg 07/30/16 07:00 08/09/16 07:42 Synthroid - PO Not Given DAILY@0700 [facility] Multivit/Ca Carb/B Cmplx/FA/Prenat 1 tablet 08/06/16 11:45 08/09/16 09:30 Nephro-Mor - PO 1 tablet DAILY [facility] Administration Pantoprazole Sodium 40 mg 07/30/16 10:00 08/09/16 09:30 Protonix - PO 40 mg DAILY [facility] Administration CBC, BMP 08/09/16 05:50 08/09/16 05:50 Impression 1. ESRD on HD 2. hypotension 3. cellulitis/abscess of back 4. CHF 5. hypothyroidism 6. hyperlipidemia 7. COPD 8. a-fib 9. pleural effusion 10. respiratory failure requiring bipap Plan - continue HD - cont management per ICU team - UF has been difficult secondary to hypotension. Aiming for 1.5 kg removal today - wound care to legs - cont bipap as needed - cont ICU care - prognosis is poor [facility]
--- NOTE | 2016-08-09 10:24 | PN ---
Progress Note (short form) - Note Progress Note: pt seen/ examined just finished dialysis on 2 pressers now awake all f/u noted Vital Signs Temp 97.4 F L 08/09/16 07:05 Pulse 103 H 08/09/16 09:00 Resp 18 08/09/16 09:00 BP 95/56 08/09/16 09:00 Pulse Ox 95 08/08/16 21:00 Intake & Output 08/08/16 08/08/16 08/09/16 11:59 23:59 11:59 Intake Total 530 981 0 Balance 530 981 0 Weight 197 lb 12.074 oz 198 lb 9.6 oz Intake: IV 210 981 Levophed - 4,000 Mcg In 210 D5w - 496 ml @ 5 MCG/MIN 37.5 mls/hr IV TITR [facility] Rx#:[id number] Levophed - 8,000 Mcg In 900 D5w - 1,000 ml @ 5 MCG/ MIN 37.8 mls/hr IV TITR [facility] Rx#:[id number] Dobutamine 250 mg/D5w - 81 250 ml @ 2.5 MCG/KG/MIN 13.455 mls/hr IV TITR [facility] Rx#:[id number] Oral 320 0 0 Other: Voiding Method Incontinent Incontinent Bowel Movement Yes # Bowel Movements 1 Weight Measurement Method [facility] Active Medications Acetaminophen (Tylenol -) 325 mg PO Q6H PRN PRN Reason: FEVER Albumin Human (Albumin Human 25%) 12.5 gm IVPB Q30M [facility] Stop: 08/09/16 10:31 Last Admin: 08/09/16 09:44 Dose: 12.5 gm Amino Acids (Prosource No Carb Liquid Pkt) 30 ml PO BID@0800,1730 [facility] Last Admin: 08/09/16 08:18 Dose: 30 ml Amiodarone HCl (Cordarone -) 400 mg PO DAILY [facility] Last Admin: 08/09/16 09:30 Dose: 400 mg Brimonidine Tartrate (Alphagan P 0.1% -) 1 drop OU BID [facility] Last Admin: 08/09/16 09:32 Dose: 1 drop Collagenase (Santyl -) 1 applic TP DAILY [facility] Last Admin: 08/09/16 09:31 Dose: 1 applic IV Flush (Triple Lumen Flush) 4 ml IVPUSH PRN PRN PRN Reason: Protocol Norepinephrine Bitartrate 8, (000 mcg/ Dextrose) 1,008 mls @ 37.8 mls/hr IV TITR [facility]; 5 MCG/MIN PRN Reason: Protocol Last Admin: 08/09/16 08:18 Dose: 75.6 mls/hr Dobutamine HCl/Dextrose (Dobutamine 250 Mg/D5w -) 250 mls @ 13.455 mls/hr IV TITR [facility]; 2.5 MCG/KG/MIN PRN Reason: Protocol Last Admin: 08/08/16 13:54 Dose: 13.455 mls/hr Levothyroxine Sodium (Synthroid -) 50 mcg PO DAILY@0700 [facility] Last Admin: 08/09/16 07:42 Dose: Not Given Multivit/Ca Carb/B Cmplx/FA/Prenat (Nephro-Mor -) 1 tablet PO DAILY [facility] Last Admin: 08/09/16 09:30 Dose: 1 tablet Pantoprazole Sodium (Protonix -) 40 mg PO DAILY [facility] Last Admin: 08/09/16 09:30 Dose: 40 mg CBC, BMP 08/09/16 05:50 08/09/16 05:50 Physical Exam Constitutional: Yes: awake/ chronic ill appearance Cardiovascular: Yes: Pulse Irregular Respiratory: Yes: Diminished at bases Gastrointestinal: Yes: Normal Bowel Sounds, Soft. No: Abdomen, Obese, Tenderness Extremities: Yes: Other (leg wounds)- dressing + Edema: Yes Psychiatric: Yes: Alert Assessment and Plan Overall condition remains same Off abx s/p debrediment condition remains poor Patient is DNR goal of care need to be discussed on regular basis with family' Discussed with ICU attending also Critical care time 25 minutes. will follow
[2016-08-09] MEDS ORDERED: DOBUTAMINE 250 MG/D5W - 250 ML ONE (16:54)
[2016-08-09] MEDS: DOBUTAMINE 250 MG/D5W - 250 ML IV SCH (17:21)
[2016-08-10] MEDS ORDERED: NOREPINEPHRINE BITARTRATE 4 MG/4 ML ML IV ONE ×3 (06:43→21:37)
[2016-08-10] MEDS: LEVOTHYROXINE NA 50 MCG TABLET (FP) PO SCH (06:47)
[2016-08-10 07:24] LABS: MCH 28.2 pg (25.7-33.7); MCHC 30.2 g/dl (32.0-35.9); MEAN CELL VOLUME 93.4 fl (80-96); MEAN PLT VOLUME 11.9 fl (7.5-11.1); RDW 21.4 % (11.9-15.9); WHITE BLOOD COUNT 12.1 K/mm3 (4.0-10.0)
[2016-08-10 07:29] LABS: PLATELET COUNT 27 K/MM3 (134-434)
[2016-08-10 07:53] LABS: ALBUMIN 1.8 g/dl (3.4-5.0); CALCIUM 7.3 mg/dL (8.5-10.1)
[2016-08-10 07:57] LABS: BILIRUBIN,TOTAL 1.7 mg/dL (0.2-1.0); COCKROFT - GAULT 37.59; CREATININE 2.2 mg/dL (0.7-1.3); TOT PROT 4.7 g/dl (6.4-8.2)
[2016-08-10] MEDS: DEXTROSE 5% IV SCH ×2 (08:35→16:32)
[2016-08-10] MEDS: NOREPINEPHRINE BITARTRATE IV SCH ×2 (08:35→16:32)
[2016-08-10] MEDS: WATER IV SCH ×2 (08:35→16:32)
[2016-08-10] MEDS: AMINO ACIDS/PROTEIN HYDROLYS 30 ML LIQUID.PKT PO SCH ×2 (08:57→18:16)
[2016-08-10] MEDS ORDERED: PT OWN MED DRAWER 7, Y5N ONE (09:09)
[2016-08-10] MEDS: AMIODARONE HCL 200 MG TABLET (FP) PO SCH (09:11)
[2016-08-10] MEDS: PANTOPRAZOLE 40 MG TABLET (FP) PO SCH (09:11)
[2016-08-10] MEDS: BRIMONIDINE TARTRATE 0.1% OPHTHALMIC 5 ML BOTTLE OU SCH ×2 (09:11→21:29)
[2016-08-10] MEDS: VITAMIN B COMP W-C 1 EA TABLET PO SCH (09:11)
[2016-08-10] MEDS: COLLAGENASE CLOSTRIDIUM HIST. 30 GRAMS TUBE TP SCH (09:12)
--- NOTE | 2016-08-10 10:16 | PN ---
Progress Note (short form) - Note Progress Note: Patient seen and examined in the ICU. Currently on Dobutamine 5 / NE 20. Awake and interactive on NC O2. Refractory shock. Intake & Output 08/07/16 08/08/16 08/09/16 08/10/16 23:59 23:59 23:59 23:59 Intake Total 2786 1511 4072 2510 Output Total 300 0 Balance 2786 1511 3772 2510 Weight 187 lb 6.287 oz 197 lb 12.074 oz 198 lb 9.6 oz 205 lb 2 oz Last Vital Signs Temp Pulse Resp BP Pulse Ox 98.3 F 91 H 21 71/54 100 08/10/16 06:00 08/10/16 10:15 08/10/16 10:00 08/10/16 10:00 08/10/16 10:15 Active Medications Acetaminophen (Tylenol -) 325 mg PO Q6H PRN PRN Reason: FEVER Amino Acids (Prosource No Carb Liquid Pkt) 30 ml PO BID@0800,1730 [facility] Last Admin: 08/10/16 08:57 Dose: 30 ml Amiodarone HCl (Cordarone -) 400 mg PO DAILY [facility] Last Admin: 08/10/16 09:11 Dose: 400 mg Brimonidine Tartrate (Alphagan P 0.1% -) 1 drop OU BID [facility] Last Admin: 08/10/16 09:11 Dose: 1 drop Collagenase (Santyl -) 1 applic TP DAILY [facility] Last Admin: 08/10/16 09:12 Dose: 1 applic IV Flush (Triple Lumen Flush) 4 ml IVPUSH PRN PRN PRN Reason: Protocol Norepinephrine Bitartrate 8, (000 mcg/ Dextrose) 1,008 mls @ 37.8 mls/hr IV TITR [facility]; 5 MCG/MIN PRN Reason: Protocol Last Titration: 08/10/16 08:35 Dose: 14 mcg/min Dobutamine HCl/Dextrose (Dobutamine 250 Mg/D5w -) 250 mls @ 13.455 mls/hr IV TITR [facility]; 2.5 MCG/KG/MIN PRN Reason: Protocol Last Admin: 08/09/16 17:21 Dose: 26.91 mls/hr Levothyroxine Sodium (Synthroid -) 50 mcg PO DAILY@0700 [facility] Last Admin: 08/10/16 06:47 Dose: 50 mcg Multivit/Ca Carb/B Cmplx/FA/Prenat (Nephro-Mor -) 1 tablet PO DAILY [facility] Last Admin: 08/10/16 09:11 Dose: 1 tablet Pantoprazole Sodium (Protonix -) 40 mg PO DAILY [facility] Last Admin: 08/10/16 09:11 Dose: 40 mg Gen: Awake and responsive, mildly tachypneic at rest Heart: RRR Lung: scattered rhonchi Abd: soft, nontender Ext: no edema, intact dressings Laboratory Results - last 24 hr 08/10/16 08/10/16 05:45 05:45 WBC 12.1 H RBC 2.56 L Hgb 7.2 L Hct 23.9 L MCV 93.4 MCHC 30.2 L RDW 21.4 H Plt Count 27 L* D MPV 11.9 H D Sodium 130 L Potassium 3.5 Chloride 90 L Carbon Dioxide 26 Anion Gap 14 BUN 22 H D Creatinine 2.2 H D Creat Clearance w eGFR 29.25 Random Glucose 191 H Calcium 7.3 L Total Bilirubin 1.7 H D AST 6 L D ALT 13 D Alkaline Phosphatase 96 Total Protein 4.7 L Albumin 1.8 L ASSESSMENT AND PLAN: Acute on Chronic Hypoxic and Hypercapneic Respiratory Failure Sacral Decubitus Ulcer Infection Septic Shock Lactic Acidosis ESRD on HD Severe LV Systolic Dysfunction Atrial Fibrillation CAD - antibiotics per ID - local wound care per surgery - Continue trial of Inotrope - Taper NE drip to maintain MAP > 50 to 55 - NIPPV as needed to assist in work of breathing - O2 to keep SpO2 >90% - HD per renal - aspiration precautions - wound care - DVT prophylaxis - continue discussions regarding goals of care as pt chronically ill with prolonged multiple hospitalizations Dr Farrell Critical care time spent in reviewing chart, evaluating patient and formulating plan 35 min
--- NOTE | 2016-08-10 10:45 | PN ---
Progress Note (short form) - Note Progress Note: Pt seen/ examined in icu awake/ comfortable overall condition same remains dependent on pressors Vital Signs Temp 98.3 F 08/10/16 06:00 Pulse 91 H 08/10/16 10:15 Resp 21 08/10/16 10:00 BP 71/54 08/10/16 10:00 Pulse Ox 100 08/10/16 10:15 Intake & Output 08/09/16 08/09/16 08/10/16 11:59 23:59 11:59 Intake Total 0 4072 2510 Output Total 300 0 Balance 0 3772 2510 Weight 198 lb 9.6 oz 205 lb 2 oz Intake: IV 3572 2160 Levophed - 8,000 Mcg In 3060 1800 D5w - 1,000 ml @ 5 MCG/ MIN 37.8 mls/hr IV TITR [facility] Rx#:[id number] Dobutamine 250 mg/D5w - 512 360 250 ml @ 2.5 MCG/KG/MIN 13.455 mls/hr IV TITR [facility] Rx#:[id number] Oral 0 500 350 Output: Urine 300 0 Void 300 0 Other: Voiding Method Incontinent Incontinent Bowel Movement Yes: large formed # Bowel Movements 1 2 Weight Measurement Method [facility] Active Medications Acetaminophen (Tylenol -) 325 mg PO Q6H PRN PRN Reason: FEVER Amino Acids (Prosource No Carb Liquid Pkt) 30 ml PO BID@0800,1730 [facility] Last Admin: 08/10/16 08:57 Dose: 30 ml Amiodarone HCl (Cordarone -) 400 mg PO DAILY [facility] Last Admin: 08/10/16 09:11 Dose: 400 mg Brimonidine Tartrate (Alphagan P 0.1% -) 1 drop OU BID [facility] Last Admin: 08/10/16 09:11 Dose: 1 drop Collagenase (Santyl -) 1 applic TP DAILY [facility] 234 [facility]S [facility] Last Admin: 08/10/16 09:12 Dose: 1 applic IV Flush (Triple Lumen Flush) 4 ml IVPUSH PRN PRN PRN Reason: Protocol Norepinephrine Bitartrate 8, (000 mcg/ Dextrose) 1,008 mls @ 37.8 mls/hr IV TITR [facility]; 5 MCG/MIN PRN Reason: Protocol Last Titration: 08/10/16 08:35 Dose: 14 mcg/min Dobutamine HCl/Dextrose (Dobutamine 250 Mg/D5w -) 250 mls @ 13.455 mls/hr IV TITR [facility]; 2.5 MCG/KG/MIN PRN Reason: Protocol Last Admin: 08/09/16 17:21 Dose: 26.91 mls/hr Levothyroxine Sodium (Synthroid -) 50 mcg PO DAILY@0700 [facility] 234 B[facility]S [facility] Last Admin: 08/10/16 06:47 Dose: 50 mcg Multivit/Ca Carb/B Cmplx/FA/Prenat (Nephro-Mor -) 1 tablet PO DAILY [facility]S [facility] Last Admin: 08/10/16 09:11 Dose: 1 tablet Pantoprazole Sodium (Protonix -) 40 mg PO DAILY [facility] 234 B[facility]S [facility] Last Admin: 08/10/16 09:11 Dose: 40 mg CBC, BMP 08/10/16 05:45 08/10/16 05:45 Physical Exam Constitutional: Yes: awake/ chronic ill appearance Cardiovascular: Yes: Pulse Irregular Respiratory: Yes: Diminished at bases Gastrointestinal: Yes: Normal Bowel Sounds, Soft. No: Abdomen, Obese, Tenderness Extremities: Yes: Other (leg wounds)- dressing + Edema: Yes Psychiatric: Yes: Alert Assessment and Plan Overall condition remains same Off abx s/p debrediment condition remains poor Patient is DNR goal of care need to be discussed on regular basis with family' Discussed with ICU attending also hematology consult for thrombocytopenia monitor transfuse with dialysis tomorrow Critical care time 25 minutes. will follow
--- NOTE | 2016-08-10 11:01 | PN ---
Progress Note (short form) - Note Progress Note: RENAL Awake and alert comfortable speaks clearly Last Vital Signs Temp Pulse Resp BP Pulse Ox 98.3 F 91 H 21 71/54 100 08/10/16 06:00 08/10/16 10:15 08/10/16 10:00 08/10/16 10:00 08/10/16 10:15 lungs decreased breath sounds cvs s1s2 rr abd soft ext +edema neuro awake and alert, comfortable Current Medications Generic Name Dose Route Start Last Admin Trade Name Freq PRN Reason Stop Dose Admin Acetaminophen 325 mg 07/29/16 11:06 Tylenol - PO Q6H PRN FEVER Amino Acids 30 ml 08/06/16 17:30 08/10/16 08:57 Prosource No Carb Liquid Pkt PO 30 ml BID@0800,1730 [facility] Administration Amiodarone HCl 400 mg 08/04/16 10:00 08/10/16 09:11 Cordarone - PO 400 mg DAILY [facility] Administration Brimonidine Tartrate 1 drop 07/29/16 22:00 08/10/16 09:11 Alphagan P 0.1% - OU 1 drop BID [facility] Administration Collagenase 1 applic 07/30/16 10:00 08/10/16 09:12 Santyl - TP 1 applic DAILY [facility] Administration IV Flush 4 ml 08/03/16 22:30 Triple Lumen Flush IVPUSH PRN PRN Protocol Norepinephrine Bitartrate 8, 1,008 mls @ 37.8 mls/hr 08/08/16 07:45 08/10/16 08 :35 000 mcg/ Dextrose IV 14 mcg/min TITR [facility] Titration Protocol 5 MCG/MIN Dobutamine HCl/Dextrose 250 mls @ 13.455 mls/hr 08/08/16 12:00 08/09/16 17:21 Dobutamine 250 Mg/D5w - IV 26.91 mls/hr TITR [facility] Administration Protocol 2.5 MCG/KG/MIN Levothyroxine Sodium 50 mcg 07/30/16 07:00 08/10/16 06:47 Synthroid - PO 50 mcg DAILY@0700 [facility] Administration Multivit/Ca Carb/B Cmplx/FA/Prenat 1 tablet 08/06/16 11:45 08/10/16 09:11 Nephro-Mor - PO 1 tablet DAILY [facility] Administration Pantoprazole Sodium 40 mg 07/30/16 10:00 08/10/16 09:11 Protonix - PO 40 mg DAILY [facility] Administration CBC, BMP 08/10/16 05:45 08/10/16 05:45 Impression 1. ESRD on HD 2. hypotension 3. cellulitis/abscess of back 4. CHF 5. hypothyroidism 6. hyperlipidemia 7. COPD 8. a-fib 9. pleural effusion 10. respiratory failure requiring bipap intermittently 11. Hyponatremia Plan - continue HD TIW - cont management per ICU team - UF has been difficult secondary to hypotension. - wound care to legs - cont bipap as needed - fluid restrict - no heparin during HD, heme eval [facility]
[2016-08-10] MEDS: DOBUTAMINE 250 MG/D5W - 250 ML IV SCH (11:57)
--- NOTE | 2016-08-10 14:15 | CONSULT ---
Consult Consult Specialty:: Hematology Reason for Consultation:: Thrombocytopenia - History of Present Illness Chief Complaint: ICU patient with multiple medical issues, including ESRF on HD , and shock requiring inotropic support ( 2 pressors currently, with declining platelety count over past several days - today with new marilee 27K. No petechiae , or bleeding from access sites. Controled oozing from debridement site on back. History of Present Illness: Patient is a 76 year old male with PMH of A-Fib, CAD, Systolic CHF, HTN/HLD, COPD, PUD, ESRD on HD, multiple lower back ulcers, hypothyroidism & DM who is sent to ICU s/p rapid response for hypotension this morning. Patient was admitted here on 07/24 after a long hospital stay for septic shock ( secondary to cellulitis/abscess formation). He was started on dialysis, received wound care & discharged on 07/23. He returned the following day to ED with low O2 saturation & hypotension from [facility]. - History Source History Provided By: Medical Record - Past Medical History Cardio/Vascular: Yes: AFIB (atrial flutter), CAD, CHF (chronic systolic CHF), HTN Pulmonary: Yes: COPD Gastrointestinal: Yes: Diverticulosis, Peptic Ulcer Disease Renal/: Yes: Renal Inusuff, Hemodialysis Endocrine: Yes: Diabetes Mellitus Additional Medical History: glaucoma - Past Surgical History Past Surgical History: Yes: Colonoscopy, Upper Endoscopy - Alcohol/Substance Use Hx Alcohol Use: No - Smoking History Smoking history: Never smoked Have you smoked in the past 12 months: No - Social History Usual Living Arrangement: Alone Occupation: worked for the [employer] Home Medications - Allergies Allergies/Adverse Reactions: Allergies Allergy/AdvReac Type Severity Reaction Status Date / Time No Known Allergies Allergy Verified 05/23/16 23:31 - Home Medications Home Medications: Ambulatory Orders Acetaminophen [Tylenol] 325 mg PO DAILY 07/24/16 Albuterol 2.5/Ipratropium 0.5 [Duoneb -] 1 neb IH QID 07/24/16 Amino Acid/Protein/Vit C/Zinc [Prosource Luis Protein Liquid] 946 ml PO DAILY 01/30 Ascorbic Acid [Vitamin C -] 500 mg PO DAILY 07/24/16 Diphenhydramine HCl [Benadryl -] 25 mg PO Q6H 07/24/16 Folic Acid 1 mg PO DAILY 07/24/16 Heparin - 5,000 unit SCJ TID 07/24/16 Insulin Lispro [Humalog Kwikpen] 200 unit SQ ASDIR 07/24/16 Levothyroxine [Synthroid -] 25 mcg PO DAILY 07/24/16 Metoprolol Succinate [Toprol Xl -] 25 mg PO DAILY 07/24/16 Multivitamin [Poly-Vitamin] 1 each PO DAILY 07/24/16 Nystatin Cream [Mycostatin] 1 applic TP BID 07/24/16 Tamsulosin HCl [Flomax] 0.4 mg PO DAILY 07/24/16 Vitamin B Comp W-C [Nephro-Mor -] 1 tablet PO DAILY 07/24/16 Zinc Sulfate 220 mg PO DAILY 07/24/16 Family Disease History - Family Disease History Family Disease History: Diabetes: Father Physical Exam Vital Signs: Vital Signs Temperature 96.9 F L 08/10/16 10:00 Pulse Rate 92 H 08/10/16 12:00 Respiratory Rate 29 H 08/10/16 12:00 Blood Pressure 97/83 08/10/16 12:00 O2 Sat by Pulse Oximetry (%) 100 08/10/16 10:15 Constitutional: Yes: Moderate Distress HENT: Yes: Normocephalic Respiratory: Yes: Regular Gastrointestinal: Yes: Abdomen, Obese Integumentary: No: Bruising, Petechiae Labs: CBC, BMP 08/10/16 05:45 08/10/16 05:45 Assessment/Plan Critical illness thrombocytopenia. Review of current drug regimen reveals no usual candidates for drug-induced thrombocytopenia. Pattern of drop not suggestive of HIT. Recommend ongoing observation only, with low index of suspicion for recurrence of sepsis. Transfuse prophylactically for platelet count <10K, and if bleeding maintain count > 50K. Call with questions - will follow with you.
[2016-08-11] MEDS ORDERED: NOREPINEPHRINE BITARTRATE 4 MG/4 ML ML IV ONE ×3 (01:45→21:55)
[2016-08-11 06:14] LABS: MCH 27.7 pg (25.7-33.7); MCHC 30.2 g/dl (32.0-35.9); MEAN CELL VOLUME 91.7 fl (80-96); MEAN PLT VOLUME 12.6 fl (7.5-11.1); RDW 21.2 % (11.9-15.9); WHITE BLOOD COUNT 13.7 K/mm3 (4.0-10.0)
[2016-08-11 06:45] LABS: ALBUMIN 1.8 g/dl (3.4-5.0); BILIRUBIN,TOTAL 1.6 mg/dL (0.2-1.0); CALCIUM 7.4 mg/dL (8.5-10.1); CREATININE 2.6 mg/dL (0.7-1.3); PLATELET COUNT 33 K/MM3 (134-434); TOT PROT 4.7 g/dl (6.4-8.2)
[2016-08-11] MEDS: LEVOTHYROXINE NA 50 MCG TABLET (FP) PO SCH (06:51)
[2016-08-11 07:02] LABS: COCKROFT - GAULT 32.08
[2016-08-11] MEDS: AMIODARONE HCL 200 MG TABLET (FP) PO SCH (09:55)
[2016-08-11] MEDS: PANTOPRAZOLE 40 MG TABLET (FP) PO SCH (09:56)
[2016-08-11] MEDS: AMINO ACIDS/PROTEIN HYDROLYS 30 ML LIQUID.PKT PO SCH ×2 (09:56→17:24)
[2016-08-11] MEDS: VITAMIN B COMP W-C 1 EA TABLET PO SCH (09:56)
[2016-08-11] MEDS: BRIMONIDINE TARTRATE 0.1% OPHTHALMIC 5 ML BOTTLE OU SCH ×2 (09:58→21:53)
[2016-08-11] MEDS: COLLAGENASE CLOSTRIDIUM HIST. 30 GRAMS TUBE TP SCH (09:59)
--- NOTE | 2016-08-11 10:15 | PN ---
Progress Note (short form) - Note Progress Note: RENAL Awake and alert comfortable confused Last Vital Signs Temp Pulse Resp BP Pulse Ox 97.2 F L 88 25 H 69/51 100 08/11/16 06:00 08/11/16 06:00 08/11/16 06:00 08/11/16 06:00 08/11/16 06:04 lungs decreased breath sounds cvs s1s2 rr abd soft ext +edema neuro awake and alert, comfortable Current Medications Generic Name Dose Route Start Last Admin Trade Name Freq PRN Reason Stop Dose Admin Acetaminophen 325 mg 07/29/16 11:06 Tylenol - PO Q6H PRN FEVER Amino Acids 30 ml 08/06/16 17:30 08/11/16 09:56 Prosource No Carb Liquid Pkt PO 30 ml BID@0800,1730 [facility] Administration Amiodarone HCl 400 mg 08/04/16 10:00 08/11/16 09:55 Cordarone - PO 400 mg DAILY [facility] Administration Brimonidine Tartrate 1 drop 07/29/16 22:00 08/11/16 09:58 Alphagan P 0.1% - OU 1 drop BID [facility] Administration Collagenase 1 applic 07/30/16 10:00 08/11/16 09:59 Santyl - TP 1 applic DAILY [facility] Administration IV Flush 4 ml 08/03/16 22:30 Triple Lumen Flush IVPUSH PRN PRN Protocol Norepinephrine Bitartrate 8, 1,008 mls @ 37.8 mls/hr 08/08/16 07:45 08/11/16 06 :51 000 mcg/ Dextrose IV 15 mcg/min TITR [facility] Titration Protocol 5 MCG/MIN Dobutamine HCl/Dextrose 250 mls @ 13.455 mls/hr 08/08/16 12:00 08/11/16 01:00 Dobutamine 250 Mg/D5w - IV 5 mcg/kg/min TITR [facility] Titration Protocol 2.5 MCG/KG/MIN Levothyroxine Sodium 50 mcg 07/30/16 07:00 08/11/16 06:51 Synthroid - PO 50 mcg DAILY@0700 [facility] Administration Multivit/Ca Carb/B Cmplx/FA/Prenat 1 tablet 08/06/16 11:45 08/11/16 09:56 Nephro-Mor - PO 1 tablet DAILY [facility] Administration Pantoprazole Sodium 40 mg 07/30/16 10:00 05/29/17 09:56 Protonix - PO 40 mg DAILY [facility] Administration CBC, BMP 08/11/16 05:45 08/11/16 05:45 Impression 1. ESRD on HD 2. hypotension 3. cellulitis/abscess of back 4. CHF 5. hypothyroidism 6. hyperlipidemia 7. COPD 8. a-fib 9. pleural effusion 10. respiratory failure requiring bipap intermittently 11. Hyponatremia in part from hypotonic fluids Plan - continue HD TIW - cont management per ICU team - UF has been difficult secondary to hypotension. - wound care to legs - cont bipap as needed - change drips to ns, avoid hypotonic fluids - will hd today to try to improve sodium MV
[2016-08-11] MEDS ORDERED: NOREPINEPHRINE BITARTRATE IV SCH (10:45)
[2016-08-11] MEDS ORDERED: SODIUM CHLORIDE IV SCH (10:45)
--- NOTE | 2016-08-11 11:30 | PN ---
Progress Note (short form) - Note Progress Note: Patient seen and examined in the ICU. Currently on Dobutamine 5 / NE 14. Awake and interactive on NC O2. Refractory shock. Intake & Output 08/08/16 08/09/16 08/10/16 08/11/16 23:59 23:59 23:59 23:59 Intake Total 1511 4072 4460 1300 Output Total 300 400 Balance 1511 3772 4060 1300 Weight 197 lb 12.074 oz 198 lb 9.6 oz 205 lb 2 oz 206 lb 14.4 oz Last Vital Signs Temp Pulse Resp BP Pulse Ox 96.8 F L 82 30 H 84/55 100 08/11/16 10:00 08/11/16 10:00 08/11/16 10:00 08/11/16 10:00 08/11/16 06:04 Active Medications Acetaminophen (Tylenol -) 325 mg PO Q6H PRN PRN Reason: FEVER Amino Acids (Prosource No Carb Liquid Pkt) 30 ml PO BID@0800,1730 [facility] Last Admin: 08/11/16 09:56 Dose: 30 ml Amiodarone HCl (Cordarone -) 400 mg PO DAILY [facility] Last Admin: 08/11/16 09:55 Dose: 400 mg Brimonidine Tartrate (Alphagan P 0.1% -) 1 drop OU BID [facility] Last Admin: 08/11/16 09:58 Dose: 1 drop Collagenase (Santyl -) 1 applic TP DAILY [facility] Last Admin: 08/11/16 09:59 Dose: 1 applic IV Flush (Triple Lumen Flush) 4 ml IVPUSH PRN PRN PRN Reason: Protocol Dobutamine HCl/Dextrose (Dobutamine 250 Mg/D5w -) 250 mls @ 13.455 mls/hr IV TITR [facility]; 2.5 MCG/KG/MIN PRN Reason: Protocol Last Titration: 08/11/16 01:00 Dose: 5 mcg/kg/min Norepinephrine Bitartrate 8, (000 mcg/ Sodium Chloride) 1,008 mls @ 37.8 mls/ hr IV TITR [facility]I; 5 MCG/MIN PRN Reason: Protocol Levothyroxine Sodium (Synthroid -) 50 mcg PO DAILY@0700 [facility] Last Admin: 08/11/16 06:51 Dose: 50 mcg Multivit/Ca Carb/B Cmplx/FA/Prenat (Nephro-Mor -) 1 tablet PO DAILY [facility] Last Admin: 08/11/16 09:56 Dose: 1 tablet Pantoprazole Sodium (Protonix -) 40 mg PO DAILY [facility] Last Admin: 08/11/16 09:56 Dose: 40 mg Gen: Awake and responsive, mildly tachypneic at rest Heart: RRR Lung: scattered rhonchi Abd: soft, nontender Ext: no edema, intact dressings Laboratory Results - last 24 hr 08/11/16 08/11/16 05:45 05:45 WBC 13.7 H RBC 2.58 L Hgb 7.1 L Hct 23.6 L MCV 91.7 MCHC 30.2 L RDW 21.2 H Plt Count 33 L* D MPV 12.6 H Sodium 123 L* Potassium 3.9 Chloride 85 L Carbon Dioxide 26 Anion Gap 12 BUN 30 H D Creatinine 2.6 H Creat Clearance w eGFR 24.12 Random Glucose 128 H D Calcium 7.4 L Total Bilirubin 1.6 H AST 8 L D ALT 13 Alkaline Phosphatase 104 Total Protein 4.7 L Albumin 1.8 L ASSESSMENT AND PLAN: Acute on Chronic Hypoxic and Hypercapneic Respiratory Failure Sacral Decubitus Ulcer Infection Septic Shock Lactic Acidosis ESRD on HD Severe LV Systolic Dysfunction Atrial Fibrillation CAD - Off ABX - local wound care per surgery - Dobutamine - Taper NE drip to maintain MAP > 50 to 55 - NIPPV as needed to assist in work of breathing - O2 to keep SpO2 >90% - HD per renal - aspiration precautions - wound care - DVT prophylaxis - Trial of Midodrine - continue discussions regarding goals of care as pt chronically ill with prolonged multiple hospitalizations Dr Farrell Critical care time spent in reviewing chart, evaluating patient and formulating plan 35 min
--- NOTE | 2016-08-11 14:19 | PN ---
Progress Note (short form) - Note Progress Note: pt seen/ examined . overall condition same remains dependent on pressors Vital Signs Temp 96.8 F L 08/11/16 10:00 Pulse 79 08/11/16 11:51 Resp 30 H 08/11/16 10:00 BP 84/55 08/11/16 10:00 Pulse Ox 95 08/11/16 11:51 Intake & Output 08/10/16 08/11/16 08/11/16 23:59 11:59 23:59 Intake Total 1950 1300 Output Total 400 Balance 1550 1300 Weight 206 lb 14.4 oz Intake: IV 1400 1300 Levophed - 8,000 Mcg In 1000 1000 D5w - 1,000 ml @ 5 MCG/ MIN 37.8 mls/hr IV TITR [facility] Rx#:[id number] Dobutamine 250 mg/D5w - 400 300 250 ml @ 2.5 MCG/KG/MIN 13.455 mls/hr IV TITR [facility] Rx#:[id number] Oral 550 Output: Urine 400 Void 400 Other: Voiding Method Incontinent Incontinent Bowel Movement Yes # Bowel Movements 2 Weight Measurement Method Built in [facility] CBC, BMP 08/11/16 05:45 08/11/16 05:45 Active Medications Acetaminophen (Tylenol -) 325 mg PO Q6H PRN PRN Reason: FEVER Amino Acids (Prosource No Carb Liquid Pkt) 30 ml PO BID@0800,1730 [facility] Last Admin: 08/11/16 09:56 Dose: 30 ml Amiodarone HCl (Cordarone -) 400 mg PO DAILY [facility] Last Admin: 08/11/16 09:55 Dose: 400 mg Brimonidine Tartrate (Alphagan P 0.1% -) 1 drop OU BID [facility] Last Admin: 08/11/16 09:58 Dose: 1 drop Collagenase (Santyl -) 1 applic TP DAILY [facility] Last Admin: 08/11/16 09:59 Dose: 1 applic IV Flush (Triple Lumen Flush) 4 ml IVPUSH PRN PRN PRN Reason: Protocol Dobutamine HCl/Dextrose (Dobutamine 250 Mg/D5w -) 250 mls @ 13.455 mls/hr IV TITR [facility]; 2.5 MCG/KG/MIN PRN Reason: Protocol Last Titration: 08/11/16 01:00 Dose: 5 mcg/kg/min Norepinephrine Bitartrate 8, (000 mcg/ Sodium Chloride) 1,008 mls @ 37.8 mls/ hr IV TITR [facility]I; 5 MCG/MIN PRN Reason: Protocol Levothyroxine Sodium (Synthroid -) 50 mcg PO DAILY@0700 [facility] Last Admin: 08/11/16 06:51 Dose: 50 mcg Midodrine (Proamatine -) 2.5 mg PO BID-MID [facility] Multivit/Ca Carb/B Cmplx/FA/Prenat (Nephro-Mor -) 1 tablet PO DAILY [facility] Last Admin: 08/11/16 09:56 Dose: 1 tablet Physical Exam Constitutional: Yes: awake/ chronic ill appearance Cardiovascular: Yes: Pulse Irregular Respiratory: Yes: Diminished at bases Gastrointestinal: Yes: Normal Bowel Sounds, Soft. No: Abdomen, Obese, Tenderness Extremities: Yes: Other (leg wounds)- dressing + Edema: Yes Psychiatric: Yes: Alert Assessment and Plan Overall condition remains same Off abx s/p debrediment condition remains poor Patient is DNR goal of care need to be discussed on regular basis with family' Discussed with ICU attending also hematology consult for thrombocytopenia-- noted monitor transfuse with dialysis today Critical care time 20 minutes. will follow Problem List - Problems (1) End stage renal disease on dialysis Code(s): N18.6 - END STAGE RENAL DISEASE Z99.2 - DEPENDENCE ON RENAL DIALYSIS (2) Functional quadriplegia Code(s): R53.2 - FUNCTIONAL QUADRIPLEGIA (3) Hypotension Code(s): I95.9 - HYPOTENSION, UNSPECIFIED Qualifiers: Hypotension type: unspecified hypotension type Qualified Code(s): I95.9 - Hypotension, unspecified (4) Anemia Code(s): D64.9 - ANEMIA, UNSPECIFIED Qualifiers: Other causes of anemia: chronic disease, kidney (5) Hyponatremia Code(s): E87.1 - HYPO-OSMOLALITY AND HYPONATREMIA (6) Thrombocytopenia Code(s): D69.6 - THROMBOCYTOPENIA, UNSPECIFIED
[2016-08-11] MEDS: DOBUTAMINE 250 MG/D5W - 250 ML IV SCH ×2 (14:25→17:23)
[2016-08-11] MEDS: MIDODRINE HCL 2.5 MG TABLET PO SCH (17:24)
[2016-08-11 21:42] LABS: INR 1.8 (0.82-1.09)
[2016-08-11 22:05] LABS: ACTIVATED PTT 79.1 SECONDS (26.9-34.4)
--- NOTE | 2016-08-11 22:51 | PN ---
Progress Note (short form) - Note Progress Note: PAtient seen and examined Getting dialyzed On BIPAP lethargic Vital Signs Temp 96.8 F L 08/11/16 10:00 Pulse 79 08/11/16 11:51 Resp 30 H 08/11/16 10:00 BP 84/55 08/11/16 10:00 Pulse Ox 95 08/11/16 11:51 Cor: RSR, No murmurs, No gallops Lungs: de Abd: Soft, Normal bowel sounds, No organomegaly Ext: anasarca, discoloration of toes Intake & Output 08/10/16 08/11/16 08/11/16 23:59 11:59 23:59 Intake Total 1950 1300 Output Total 400 Balance 1550 1300 Weight 206 lb 14.4 oz Intake: IV 1400 1300 Levophed - 8,000 Mcg In 1000 1000 D5w - 1,000 ml @ 5 MCG/ MIN 37.8 mls/hr IV TITR [facility] Rx#:[id number] Dobutamine 250 mg/D5w - 400 300 250 ml @ 2.5 MCG/KG/MIN 13.455 mls/hr IV TITR [facility] Rx#:[id number] Oral 550 Output: Urine 400 Void 400 Other: Voiding Method Incontinent Incontinent Bowel Movement Yes # Bowel Movements 2 Weight Measurement Method Built in [facility] CBC, BMP 08/11/16 05:45 08/11/16 05:45 Active Medications Acetaminophen (Tylenol -) 325 mg PO Q6H PRN PRN Reason: FEVER Amino Acids (Prosource No Carb Liquid Pkt) 30 ml PO BID@0800,1730 [facility] Last Admin: 08/11/16 09:56 Dose: 30 ml Amiodarone HCl (Cordarone -) 400 mg PO DAILY [facility] Last Admin: 08/11/16 09:55 Dose: 400 mg Brimonidine Tartrate (Alphagan P 0.1% -) 1 drop OU BID [facility] Last Admin: 08/11/16 09:58 Dose: 1 drop Collagenase (Santyl -) 1 applic TP DAILY [facility] Last Admin: 08/11/16 09:59 Dose: 1 applic IV Flush (Triple Lumen Flush) 4 ml IVPUSH PRN PRN PRN Reason: Protocol Dobutamine HCl/Dextrose (Dobutamine 250 Mg/D5w -) 250 mls @ 13.455 mls/hr IV TITR [facility]; 2.5 MCG/KG/MIN PRN Reason: Protocol Last Titration: 08/11/16 01:00 Dose: 5 mcg/kg/min Norepinephrine Bitartrate 8, (000 mcg/ Sodium Chloride) 1,008 mls @ 37.8 mls/ hr IV TITR [facility]; 5 MCG/MIN PRN Reason: Protocol Levothyroxine Sodium (Synthroid -) 50 mcg PO DAILY@0700 [facility] Last Admin: 08/11/16 06:51 Dose: 50 mcg Midodrine (Proamatine -) 2.5 mg PO BID-MID [facility] Multivit/Ca Carb/B Cmplx/FA/Prenat (Nephro-Mor -) 1 tablet PO DAILY [facility] Last Admin: 08/11/16 09:56 Dose: 1 tablet A?P Critical illness thrombocytopenia. Review of current drug regimen reveals no usual candidates for drug-induced thrombocytopenia. Pattern of drop not suggestive of HIT. Transfuse prophylactically for platelet count <20K, and if bleeding maintain count > 50K. Monitor coags/fibrinogen coagullopathy ---trial of vit. K ? liver disease, ? DIC getting PRBCs today at dialysis will follow
[2016-08-12 06:22] LABS: MCH 28.2 pg (25.7-33.7); MCHC 30.6 g/dl (32.0-35.9); MEAN CELL VOLUME 92.2 fl (80-96); MEAN PLT VOLUME 10.8 fl (7.5-11.1); RDW 20.2 % (11.9-15.9); WHITE BLOOD COUNT 18.1 K/mm3 (4.0-10.0)
[2016-08-12 06:37] LABS: PLATELET COUNT 29 K/MM3 (134-434)
[2016-08-12] MEDS: LEVOTHYROXINE NA 50 MCG TABLET (FP) PO SCH (06:41)
[2016-08-12 06:45] LABS: ALBUMIN 1.8 g/dl (3.4-5.0); CALCIUM 7.7 mg/dL (8.5-10.1)
[2016-08-12 06:48] LABS: BILIRUBIN,TOTAL 2.3 mg/dL (0.2-1.0); COCKROFT - GAULT 43.9; CREATININE 1.9 mg/dL (0.7-1.3); TOT PROT 4.9 g/dl (6.4-8.2)
[2016-08-12 06:57] LABS: INR 1.64 (0.82-1.09); PROTHROMBIN TIME (PATIENT) 18.7 SEC (9.98-11.88)
--- NOTE | 2016-08-12 08:00 | PN ---
Physical Exam: SUBJECTIVE: Patient seen and examined at bedside this AM in ICU. On bipap overnight due to mild hypercapnea. States he feels okay but is breathing with more difficulty than on Thursday. Moderately lethargic this AM, but low baseline activity levels in general. States legs have not been bothering him since debridement at end of last week. OBJECTIVE: Vital Signs Period Temp Pulse Resp BP Sys/Hubbard Pulse Ox Last 24 Hr 95.9 F-96.8 F 75-111 17-30 66-147/36-110 95-100 GENERAL: Awake, alert, and fully oriented, in no acute distress. Resting comfortably in bed on bipap. HEENT: Atraumatic, EOMI, PERRLA, No lymphadenopathy, dry membranes LUNGS: moderate bibasilar crackles noted (R>L), no wheezing or accessory muscle use HEART: irregular but rate controlled, S1 and S2 without murmur, rub or gallop. ABDOMEN: Soft, nontender, not distended, normoactive bowel sounds EXTREMITIES: 1+ pulses, warm, well-perfused. No calf tenderness. +1 bilateral pitting edema in lower extremity NEUROLOGICAL: Cranial nerves II-XII intact. Normal speech. Gait not observed. PSYCHIATRIC: Cooperative. Good eye contact. Appropriate mood and affect. Able to answer questions and make requests. SKIN: multiple stage III decubitus to buttocks, shins and scrotum Laboratory Results - last 24 hr 08/11/16 08/11/16 08/12/16 15:00 20:55 05:45 WBC 18.1 H D RBC 2.94 L Hgb 8.3 L D Hct 27.1 L MCV 92.2 MCHC 30.6 L RDW 20.2 H Plt Count 29 L* MPV 10.8 D INR 1.80 H PTT (Actin FS) 79.1 H D Fibrinogen 262.0 D Sodium Potassium Chloride Carbon Dioxide Anion Gap BUN Creatinine Creat Clearance w eGFR Random Glucose Calcium Total Bilirubin AST ALT Alkaline Phosphatase Total Protein Albumin Blood Type A POSITIVE Antibody Screen Negative Crossmatch See Detail 08/12/16 08/12/16 05:45 06:00 WBC RBC Hgb Hct MCV MCHC RDW Plt Count MPV INR 1.64 H PTT (Actin FS) 54.0 H D Fibrinogen Sodium 135 L Potassium 3.5 Chloride 95 L D Carbon Dioxide 27 Anion Gap 13 BUN 18 D Creatinine 1.9 H D Creat Clearance w eGFR 34.64 Random Glucose 137 H Calcium 7.7 L Total Bilirubin 2.3 H D AST 10 L D ALT 18 D Alkaline Phosphatase 113 Total Protein 4.9 L Albumin 1.8 L Blood Type Antibody Screen Crossmatch Active Medications Generic Name Dose Route Start Last Admin Trade Name Freq PRN Reason Stop Dose Admin Acetaminophen 325 mg 07/29/16 11:06 Tylenol - PO Q6H PRN FEVER Amino Acids 30 ml 08/06/16 17:30 08/11/16 17:24 Prosource No Carb Liquid Pkt PO 30 ml BID@0800,1730 [facility] Administration Amiodarone HCl 400 mg 08/04/16 10:00 08/11/16 09:55 Cordarone - PO 400 mg DAILY [facility] Administration Brimonidine Tartrate 1 drop 07/29/16 22:00 08/11/16 21:53 Alphagan P 0.1% - OU 1 drop BID [facility] Administration Collagenase 1 applic 07/30/16 10:00 08/11/16 09:59 Santyl - TP 1 applic DAILY [facility] Administration IV Flush 4 ml 08/03/16 22:30 Triple Lumen Flush IVPUSH PRN PRN Protocol Dobutamine HCl/Dextrose 250 mls @ 13.455 mls/hr 08/08/16 12:00 08/11/16 17:23 Dobutamine 250 Mg/D5w - IV 26.9 mls/hr TITR [facility] Administration Protocol 2.5 MCG/KG/MIN Norepinephrine Bitartrate 8, 1,008 mls @ 37.8 mls/hr 08/11/16 10:45 08/11/16 14 :47 000 mcg/ Sodium Chloride IV 10.91 mcg/min TITR [facility] Titration Protocol 5 MCG/MIN Levothyroxine Sodium 50 mcg 07/30/16 07:00 08/12/16 06:41 Synthroid - PO 50 mcg DAILY@0700 [facility] Administration Midodrine 2.5 mg 08/11/16 18:00 08/11/16 17:24 Proamatine - PO 2.5 mg BID-MID [facility] Administration Multivit/Ca Carb/B Cmplx/FA/Prenat 1 tablet 08/06/16 11:45 08/11/16 09:56 Nephro-Mor - PO 1 tablet DAILY [facility] Administration Phytonadione 5 mg 08/12/16 10:00 Aqua Mephyton Injection - SQ 08/14/16 10:01 DAILY [facility] ASSESSMENT/PLAN: 76 year old male with PMH of A-Fib, CAD, Systolic CHF, HTN/HLD, COPD, PUD, ESRD on HD, multiple lower back ulcers, hypothyroidism & DM who is sent to ICU s/p rapid response for hypotension. #Septic Shock, likely secondary to multiple decubitus ulcers -BP support with Levophed, Dobutamine -started trial of Midodrine over weekend -bedside debridement with vascular surgery successful & without complication -patient has severe systolic CHF, MAP >50-55 is acceptable -collagenase administered to ulcers -ID Consult appreciated #Acute Thrombocytopenia -etiology is likely critical illness (Pattern of drop not suggestive of HIT) -received 1unit PRBC yesterday during HD -will transfuse prophylactically for platelet count <20K, as per hematology recommendation -continue Vitamin K -Hematology consult appreciated #ESRD on HD -HD as per nephrology -avoid nephrotoxic meds -Nephrology consult appreciated #Atrial Fibrillation/CAD Hx/CHF Hx -Not a candidate for AC (INR 1.64 this morning) -on Amiodarone 400mg PO daily, as per cardiology -cardiology consult appreciated #COPD -Duonebs QIDR -Albuterol PRN -saturating well on Bipap this morning -BiPap at night and as needed #Hypothyroidism -continue home meds: Synthroid 50mcg Prophylaxis -SCD's -PPI -cautious with IVF administration -monitor electrolytes -Dysphasia Pureed diet, Prosource, Nephrovite Dispo: Palliative Care consulted. Patient is DNR. Niece is HCP. Patient is estranged from his & states that he does not want her to visit him. informed while attempting to visit. Visit type - Emergency Visit Emergency Visit: Yes ED Registration Date: 07/24/16 Care time: The patient presented to the Emergency Department on the above date and was hospitalized for further evaluation of their emergent condition. - New Patient This patient is new to me today: No - Critical Care Critical Care patient: Yes Total Critical Care Time (in minutes): 40 Critical Care Statement: The care of this patient involved high complexity decision making to prevent further life threatening deterioration of the patient 's condition and/or to evalute & treat vital organ system(s) failure or risk of failure.
[2016-08-12] MEDS: AMINO ACIDS/PROTEIN HYDROLYS 30 ML LIQUID.PKT PO SCH ×2 (08:02→17:05)
[2016-08-12] MEDS: PHYTONADIONE 10 MG/1 ML AMP SQ SCH (09:30)
--- NOTE | 2016-08-12 09:47 | PN ---
Progress Note, Physician Chief Complaint: lethargic today breathing labored weak s/p HD and PRBC yesterday Was on BIPAP this AM, removed when he ate breakfast - Current Medication List Current Medications: Active Medications Acetaminophen (Tylenol -) 325 mg PO Q6H PRN PRN Reason: FEVER Amino Acids (Prosource No Carb Liquid Pkt) 30 ml PO BID@0800,1730 [facility] Last Admin: 08/12/16 08:02 Dose: 30 ml Amiodarone HCl (Cordarone -) 400 mg PO DAILY [facility] Last Admin: 08/11/16 09:55 Dose: 400 mg Brimonidine Tartrate (Alphagan P 0.1% -) 1 drop OU BID [facility] Last Admin: 08/11/16 21:53 Dose: 1 drop Collagenase (Santyl -) 1 applic TP DAILY [facility] Last Admin: 08/11/16 09:59 Dose: 1 applic IV Flush (Triple Lumen Flush) 4 ml IVPUSH PRN PRN PRN Reason: Protocol Dobutamine HCl/Dextrose (Dobutamine 250 Mg/D5w -) 250 mls @ 13.455 mls/hr IV TITR [facility]; 2.5 MCG/KG/MIN PRN Reason: Protocol Last Admin: 08/11/16 17:23 Dose: 26.9 mls/hr Norepinephrine Bitartrate 8, (000 mcg/ Sodium Chloride) 1,008 mls @ 37.8 mls/ hr IV TITR [facility]; 5 MCG/MIN PRN Reason: Protocol Last Titration: 08/11/16 14:47 Dose: 10.91 mcg/min Levothyroxine Sodium (Synthroid -) 50 mcg PO DAILY@0700 [facility] Last Admin: 08/12/16 06:41 Dose: 50 mcg Midodrine (Proamatine -) 2.5 mg PO BID-MID [facility] Last Admin: 08/11/16 17:24 Dose: 2.5 mg Multivit/Ca Carb/B Cmplx/FA/Prenat (Nephro-Mor -) 1 tablet PO DAILY [facility] Last Admin: 08/11/16 09:56 Dose: 1 tablet Phytonadione (Aqua Mephyton Injection -) 5 mg SQ DAILY [facility] Stop: 08/14/16 10:01 - Objective Vital Signs: Vital Signs Temperature 96.6 F L 08/12/16 08:00 Pulse Rate 92 H 08/12/16 08:00 Respiratory Rate 25 H 08/12/16 08:00 Blood Pressure 75/49 08/12/16 08:00 O2 Sat by Pulse Oximetry (%) 100 08/11/16 20:51 Constitutional: Yes: No Distress Cardiovascular: Yes: Pulse Irregular Respiratory: Yes: Diminished Gastrointestinal: Yes: Normal Bowel Sounds, Soft. No: Distention, Tenderness Edema: Yes Labs: CBC, BMP 08/12/16 05:45 08/12/16 05:45 INR, PTT INR 1.64 (0.82-1.09) H 08/12/16 06:00 Fibrinogen 272.0 mg/dL (238-498) 08/12/16 06:00 Problem List - Problems (1) Congestive heart failure (CHF) Code(s): I50.9 - HEART FAILURE, UNSPECIFIED Qualifiers: Congestive heart failure type: systolic Congestive heart failure chronicity: chronic Qualified Code(s): I50.22 - Chronic systolic (congestive ) heart failure (2) DMII (diabetes mellitus, type 2) Code(s): E11.9 - TYPE 2 DIABETES MELLITUS WITHOUT COMPLICATIONS Qualifiers: Diabetes mellitus complication detail: with other kidney complication (3) HTN (hypertension) Code(s): I10 - ESSENTIAL (PRIMARY) HYPERTENSION Qualifiers: Hypertension type: essential hypertension Qualified Code(s): I10 - Essential (primary) hypertension (4) Pressure ulcer of lower extremity, stage 1 Code(s): L89.891 - PRESSURE ULCER OF OTHER SITE, STAGE 1 (5) Sepsis Code(s): A41.9 - SEPSIS, UNSPECIFIED ORGANISM Qualifiers: Sepsis type: sepsis due to unspecified organism Qualified Code(s): A41.9 - Sepsis, unspecified organism (6) Rapid atrial fibrillation Code(s): I48.91 - UNSPECIFIED ATRIAL FIBRILLATION (7) Functional quadriplegia Code(s): R53.2 - FUNCTIONAL QUADRIPLEGIA (8) End stage renal disease on dialysis Code(s): N18.6 - END STAGE RENAL DISEASE Z99.2 - DEPENDENCE ON RENAL DIALYSIS Assessment/Plan PLAN SEPSIS pt is hypothermic , lethargic antibiotics dc, may need to start antibiotics, WBC elevated blood cultures to be repeated , ABG platelets decreased on 2 pressors HYPOTENSION BP is low-- on 2 pressors, Midodrine added end-stage renal disease on dialysis HD per Renal if tolerated elevated troponins, rapid A. fib Not a candidate for anticoagulation rate control with Amiodarone CHF systolic heart failure- severe HD per renal check ABG Not on AceI or ARB due to hypotension advanced directives patient is DNR BIPAP as needed ICU monitoring
[2016-08-12 10:00] LABS: ALLENS TEST POSITIVE; ART PUNCT SITE RIGHT RADIAL; ARTERIAL BLD GAS O2 SATURATION 93.1 % (90-98.9); ARTERIAL BLOOD GAS BASE EXCESS -3.2 meq/l (-2-2); ARTERIAL BLOOD GAS HCO3 25.6 meq/L (22-26); ARTERIAL BLOOD GAS PO2 78.2 mmHg (70-100); LPM/O2% 3L; PT. ON O2? YES; TYPE OF O2 NASAL O2
[2016-08-12] MEDS: BRIMONIDINE TARTRATE 0.1% OPHTHALMIC 5 ML BOTTLE OU SCH ×2 (10:00→22:22)
[2016-08-12 10:01] LABS: ARTERIAL BLOOD GAS pH 7.17 (7.35-7.45)
[2016-08-12] MEDS: MIDODRINE HCL 2.5 MG TABLET PO SCH ×2 (10:01→17:06)
[2016-08-12] MEDS: VITAMIN B COMP W-C 1 EA TABLET PO SCH (10:01)
[2016-08-12] MEDS: AMIODARONE HCL 200 MG TABLET (FP) PO SCH (10:03)
[2016-08-12] MEDS ORDERED: RAPID SEQUENCE INTUBATION KIT NR ONE (11:24)
[2016-08-12] MEDS ORDERED: VANCOMYCIN 1 GRAM (PRE-DOCKED) 1,000 MG/250 ML BAG IVPB SCH (11:30)
[2016-08-12] MEDS ORDERED: PIPERACILLIN/TAZOB 3.375 GM/50 ML PRE-DOCKED IVPB SCH (11:30)
[2016-08-12] MEDS ORDERED: NOREPINEPHRINE BITARTRATE 4 MG/4 ML ML IV ONE ×2 (11:33→20:11)
[2016-08-12] MEDS ORDERED: VECURONIUM BROMIDE 10 MG VIAL IVPUSH ONE (12:00)
[2016-08-12] MEDS ORDERED: ETOMIDATE 20 MG/10 ML AMPUL IVPUSH ONE (12:00)
[2016-08-12] MEDS: NOREPINEPHRINE BITARTRATE 8,000 MCG in SODIUM CHLORIDE 500 ML IV SCH (12:00)
[2016-08-12] MEDS ORDERED: VECURONIUM BROMIDE 50 MG VIAL IVPUSH ONE (12:00)
[2016-08-12] MEDS ORDERED: VANCOMYCIN 1 GRAM (PRE-DOCKED) 1,000 MG/250 ML BAG IVPB ONE (12:15)
[2016-08-12] MEDS ORDERED: PIPERACILLIN/TAZOB 3.375 GM/50 ML PRE-DOCKED IVPB ONE (12:15)
--- NOTE | 2016-08-12 12:47 | PROC ---
Intubation - Intubation Reason for Intubation: Respiratory Failure Time of Intubation: 11:45 Intubation Method: orotracheal Blade used: Mac (4) Tube Size (cm): 8.0 Tube position @ lip (cm): 23 Tube position confirmed by: Direct visualization, CO2 detector, Chest x-ray Breath Sounds after Intubation: equal Post Intubation Xray: Yes
[2016-08-12] MEDS ORDERED: DOBUTAMINE 250 MG/D5W - 250 ML ONE (12:54)
--- NOTE | 2016-08-12 12:55 | PN ---
Teaching Attending Note Name of Resident: Irvin Harden ATTENDING PHYSICIAN STATEMENT I saw and evaluated the patient. I reviewed the resident's note and discussed the case with the resident. I agree with the resident's findings and plan as documented. SUBJECTIVE: Pt seen and examined in the ICU. Lethargic on BiPAP, ABG with acute respiratory acidosis subsequently intubated. Remains on levophed and dobutamine gtts. Unable to reach niece/HCP prior to intubation OBJECTIVE: Last Vital Signs Temp Pulse Resp BP Pulse Ox 97 F L 83 16 62/51 95 08/12/16 10:00 08/12/16 10:40 08/12/16 11:50 08/12/16 10:00 08/12/16 10:40 Intake & Output 08/09/16 08/10/16 08/11/16 08/12/16 23:59 23:59 23:59 23:59 Intake Total 4072 4460 3432.8 1716 Output Total 300 400 Balance 3772 4060 3432.8 1716 Weight 198 lb 9.6 oz 205 lb 2 oz 206 lb 14.4 oz 206 lb 14.4 oz Gen: lethargic, tachypneic Heart: RRR Lung: bilateral rhonchi Abd: soft, nontender Ext: + ulcers CBC, BMP 08/12/16 05:45 08/12/16 05:45 Active Medications Acetaminophen (Tylenol -) 325 mg PO Q6H PRN PRN Reason: FEVER Amino Acids (Prosource No Carb Liquid Pkt) 30 ml PO BID@0800,1730 [facility] Last Admin: 08/12/16 08:02 Dose: 30 ml Amiodarone HCl (Cordarone -) 400 mg PO DAILY [facility] Last Admin: 08/12/16 10:03 Dose: 400 mg Brimonidine Tartrate (Alphagan P 0.1% -) 1 drop OU BID [facility] Last Admin: 08/11/16 21:53 Dose: 1 drop Collagenase (Santyl -) 1 applic TP DAILY [facility] Last Admin: 08/11/16 09:59 Dose: 1 applic IV Flush (Triple Lumen Flush) 4 ml IVPUSH PRN PRN PRN Reason: Protocol Dobutamine HCl/Dextrose (Dobutamine 250 Mg/D5w -) 250 mls @ 13.455 mls/hr IV TITR [facility]; 2.5 MCG/KG/MIN PRN Reason: Protocol Last Admin: 08/11/16 17:23 Dose: 26.9 mls/hr Norepinephrine Bitartrate 8, (000 mcg/ Sodium Chloride) 508 mls @ 19.05 mls/hr IV TITR [facility]; 5 MCG/MIN PRN Reason: Protocol Fentanyl 500 mcg/ Dextrose 100 mls @ 5 mls/hr IJ TITR [facility] PRN Reason: 25 MCG/HR Levothyroxine Sodium (Synthroid -) 50 mcg PO DAILY@0700 [facility] Last Admin: 08/12/16 06:41 Dose: 50 mcg Midazolam HCl (Versed -) 2 mg IVPUSH Q2H PRN PRN Reason: AGITATION Midodrine (Proamatine -) 2.5 mg PO BID-MID [facility] Last Admin: 08/12/16 10:01 Dose: 2.5 mg Multivit/Ca Carb/B Cmplx/FA/Prenat (Nephro-Mor -) 1 tablet PO DAILY [facility] Last Admin: 08/12/16 10:01 Dose: 1 tablet Phytonadione (Aqua Mephyton Injection -) 5 mg SQ DAILY [facility] Stop: 08/14/16 10:01 Piperacillin Sod/Tazobactam Sod (Zosyn 3.375gm Ivpb (Pre-Docked)) 3.375 gm IVPB Q8H-IV [facility] PRN Reason: Protocol Vancomycin HCl (Vancomycin (Pre-Docked)) 1,000 mg IVPB DAILY [facility] PRN Reason: Protocol ASSESSMENT AND PLAN: Acute on Chronic Hypoxic and Hypercapneic Respiratory Failure Sacral Decubitus Ulcer Infection Septic Shock Lactic Acidosis resolved ESRD on HD Acute on Chronic Severe LV Systolic Dysfunction Atrial Fibrillation CAD - antibiotics per ID - titrate levophed, dobutamine gtts to maintain MAP >50 - O2 to keep SpO2 >90% - HD per renal - aspiration precautions - wound care - DVT prophylaxis - continue discussions regarding goals of care as pt chronically ill with prolonged multiple hospitalizations - will need tracheostomy due to multiple prior intubations and end stage cardiac/renal disease critical care time spent in reviewing chart, evaluating patient and formulating plan 38 min
[2016-08-12] MEDS: FENTANYL INJECTION 500 MCG in DEXTROSE 5%-WATER - 90 ML IJ SCH (13:16)
[2016-08-12] MEDS: DOBUTAMINE 250 MG/D5W - 250 ML IV SCH (13:18)
[2016-08-12] MEDS: COLLAGENASE CLOSTRIDIUM HIST. 30 GRAMS TUBE TP SCH (13:24)
--- NOTE | 2016-08-12 14:16 | PN ---
Progress Note, Physician History of Present Illness: Pt seen and examined at bedside. He remains in the ICU. He is now intubated. Pt was dialyzed yesterday. - Current Medication List Current Medications: Active Medications Acetaminophen (Tylenol -) 325 mg PO Q6H PRN PRN Reason: FEVER Amino Acids (Prosource No Carb Liquid Pkt) 30 ml PO BID@0800,1730 [facility] Last Admin: 08/12/16 08:02 Dose: 30 ml Amiodarone HCl (Cordarone -) 400 mg PO DAILY [facility] Last Admin: 08/12/16 10:03 Dose: 400 mg Brimonidine Tartrate (Alphagan P 0.1% -) 1 drop OU BID [facility] Last Admin: 08/12/16 10:00 Dose: 1 drop Collagenase (Santyl -) 1 applic TP DAILY [facility] Last Admin: 08/12/16 13:24 Dose: 1 applic IV Flush (Triple Lumen Flush) 4 ml IVPUSH PRN PRN PRN Reason: Protocol Dobutamine HCl/Dextrose (Dobutamine 250 Mg/D5w -) 250 mls @ 13.455 mls/hr IV TITR [facility]; 2.5 MCG/KG/MIN PRN Reason: Protocol Last Admin: 08/12/16 13:18 Dose: 26.9 mls/hr Norepinephrine Bitartrate 8, (000 mcg/ Sodium Chloride) 508 mls @ 19.05 mls/hr IV TITR [facility]; 5 MCG/MIN PRN Reason: Protocol Last Admin: 08/12/16 12:00 Dose: 95.25 mls/hr Fentanyl 500 mcg/ Dextrose 100 mls @ 5 mls/hr IJ TITR [facility] PRN Reason: 25 MCG/HR Last Admin: 08/12/16 13:16 Dose: 5 mls/hr Levothyroxine Sodium (Synthroid -) 50 mcg PO DAILY@0700 [facility] Last Admin: 08/12/16 06:41 Dose: 50 mcg Midazolam HCl (Versed -) 2 mg IVPUSH Q2H PRN PRN Reason: AGITATION Midodrine (Proamatine -) 2.5 mg PO BID-MID [facility] Last Admin: 08/12/16 10:01 Dose: 2.5 mg Multivit/Ca Carb/B Cmplx/FA/Prenat (Nephro-Mor -) 1 tablet PO DAILY [facility] Last Admin: 08/12/16 10:01 Dose: 1 tablet Phytonadione (Aqua Mephyton Injection -) 5 mg SQ DAILY [facility] Stop: 08/14/16 10:01 Last Admin: 08/12/16 09:30 Dose: 5 mg Piperacillin Sod/Tazobactam Sod (Zosyn 3.375gm Ivpb (Pre-Docked)) 3.375 gm IVPB Q8H-IV [facility] PRN Reason: Protocol Vancomycin HCl (Vancomycin (Pre-Docked)) 1,000 mg IVPB DAILY [facility] PRN Reason: Protocol - Objective Vital Signs: Vital Signs Temperature 97 F L 08/12/16 10:00 Pulse Rate 88 08/12/16 14:00 Respiratory Rate 40 H 08/12/16 14:00 Blood Pressure 66/55 08/12/16 14:00 O2 Sat by Pulse Oximetry (%) 95 08/12/16 10:40 Constitutional: Yes: Calm Eyes: Yes: Conjunctiva Clear Cardiovascular: Yes: S1, S2 Respiratory: Yes: Mechanically Ventilated Gastrointestinal: Yes: Soft Genitourinary: Yes: Incontinence Musculoskeletal: Yes: Muscle Weakness Edema: Yes Neurological: Yes: Other (sedated) Labs: CBC, BMP 08/12/16 05:45 08/12/16 05:45 INR, PTT INR 1.64 (0.82-1.09) H 08/12/16 06:00 Fibrinogen 272.0 mg/dL (238-498) 08/12/16 06:00 - ....Imaging Chest X-ray: Report Reviewed Problem List - Problems (1) End stage renal disease on dialysis Code(s): N18.6 - END STAGE RENAL DISEASE Z99.2 - DEPENDENCE ON RENAL DIALYSIS (2) Hypotension Code(s): I95.9 - HYPOTENSION, UNSPECIFIED Qualifiers: Hypotension type: unspecified hypotension type Qualified Code(s): I95.9 - Hypotension, unspecified (3) Anemia Code(s): D64.9 - ANEMIA, UNSPECIFIED Qualifiers: Other causes of anemia: chronic disease, kidney Assessment/Plan Current Medications Generic Name Dose Route Start Last Admin Trade Name Freq PRN Reason Stop Dose Admin Acetaminophen 325 mg 07/29/16 11:06 Tylenol - PO Q6H PRN FEVER Amino Acids 30 ml 08/06/16 17:30 08/12/16 08:02 Prosource No Carb Liquid Pkt PO 30 ml BID@0800,1730 [facility] Administration Amiodarone HCl 400 mg 08/04/16 10:00 08/12/16 10:03 Cordarone - PO 400 mg DAILY [facility] Administration Brimonidine Tartrate 1 drop 07/29/16 22:00 08/12/16 10:00 Alphagan P 0.1% - OU 1 drop BID [facility] Administration Collagenase 1 applic 07/30/16 10:00 08/12/16 13:24 Santyl - TP 1 applic DAILY [facility] Administration IV Flush 4 ml 08/03/16 22:30 Triple Lumen Flush IVPUSH PRN PRN Protocol Dobutamine HCl/Dextrose 250 mls @ 13.455 mls/hr 08/08/16 12:00 08/12/16 13:18 Dobutamine 250 Mg/D5w - IV 26.9 mls/hr TITR [facility] Administration Protocol 2.5 MCG/KG/MIN Norepinephrine Bitartrate 8, 508 mls @ 19.05 mls/hr 08/12/16 12:13 08/12/16 12: 00 000 mcg/ Sodium Chloride IV 95.25 mls/hr TITR [facility] Administration Protocol 5 MCG/MIN Fentanyl 500 mcg/ Dextrose 100 mls @ 5 mls/hr 08/12/16 13:00 08/12/16 13:16 IJ 5 mls/hr TITR [facility] Administration 25 MCG/HR Levothyroxine Sodium 50 mcg 07/30/16 07:00 08/12/16 06:41 Synthroid - PO 50 mcg DAILY@0700 [facility] Administration Midazolam HCl 2 mg 08/12/16 12:48 Versed - IVPUSH Q2H PRN AGITATION Midodrine 2.5 mg 08/11/16 18:00 08/12/16 10:01 Proamatine - PO 2.5 mg BID-MID [facility] Administration Multivit/Ca Carb/B Cmplx/FA/Prenat 1 tablet 08/06/16 11:45 08/12/16 10:01 Nephro-Mor - PO 1 tablet DAILY [facility] Administration Phytonadione 5 mg 08/12/16 10:00 08/12/16 09:30 Aqua Mephyton Injection - SQ 08/14/16 10:01 5 mg DAILY [facility] Administration Piperacillin Sod/Tazobactam Sod 3.375 gm 08/12/16 11:30 Zosyn 3.375gm Ivpb (Pre-Docked) IVPB Q8H-IV [facility] Protocol Vancomycin HCl 1,000 mg 08/12/16 11:30 Vancomycin (Pre-Docked) IVPB DAILY [facility] Protocol Impression 1. ESRD on HD 2. hypotension 3. cellulitis/abscess of back 4. CHF 5. hypothyroidism 6. hyperlipidemia 7. COPD 8. a-fib 9. pleural effusion 10. respiratory failure requiring bipap Plan - pt was dialyzed yesterday - cont vent support - repeat labs in am - sodium level is improved - cont management per ICU team - cardiology follow up - wound care to legs - cont ICU care - will follow - prognosis is poor Dr Martinez
[2016-08-12 14:31] LABS: ARTERIAL BLOOD GAS BASE EXCESS -1.1 meq/l (-2-2)
[2016-08-12 14:35] LABS: ALLENS TEST POSITIVE; ART PUNCT SITE RIGHT RADIAL; LPM/O2% 100%; MECH. VENT. YES; PT. ON O2? YES; TYPE OF O2 VENT; VENT RATE 16; VT/PRESS 450
[2016-08-12] MEDS ORDERED: PROPOFOL 100 ML ONE (20:33)
[2016-08-13] MEDS ORDERED: NOREPINEPHRINE BITARTRATE 4 MG/4 ML ML IV ONE ×6 (04:51→20:32)
[2016-08-13] MEDS: LEVOTHYROXINE NA 50 MCG TABLET (FP) PO SCH (06:23)
[2016-08-13 07:05] LABS: MCH 28.1 pg (25.7-33.7); MCHC 31.1 g/dl (32.0-35.9); MEAN CELL VOLUME 90.4 fl (80-96); MEAN PLT VOLUME 10.6 fl (7.5-11.1); RDW 20.1 % (11.9-15.9); WHITE BLOOD COUNT 18.9 K/mm3 (4.0-10.0)
[2016-08-13 07:21] LABS: PLATELET COUNT 30 K/MM3 (134-434)
[2016-08-13 07:26] LABS: PROTHROMBIN TIME (PATIENT) 22.3 SEC (9.98-11.88)
[2016-08-13 07:28] LABS: ACTIVATED PTT 53.9 SECONDS (26.9-34.4)
[2016-08-13 07:38] LABS: CALCIUM 7.2 mg/dL (8.5-10.1); MAGNESIUM 1.4 mg/dL (1.8-2.4)
[2016-08-13 07:39] LABS: COCKROFT - GAULT 36.53; CREATININE 2.3 mg/dL (0.7-1.3); PHOSPHOROUS 1.2 mg/dL (2.5-4.9)
[2016-08-13 07:58] LABS: ARTERIAL BLD GAS O2 SATURATION 99.2 % (90-98.9); ARTERIAL BLOOD GAS BASE EXCESS -0.1 meq/l (-2-2); ARTERIAL BLOOD GAS HCO3 23.7 meq/L (22-26); ARTERIAL BLOOD GAS pH 7.42 (7.35-7.45)
[2016-08-13 08:02] LABS: ALLENS TEST POSITIVE; ART PUNCT SITE RIGHT RADIAL; LPM/O2% 50%; MECH. VENT. ESPRIT; PT. ON O2? YES; TYPE OF O2 MEC.VENT; VENT RATE 16; VT/PRESS 450
--- NOTE | 2016-08-13 08:36 | PN ---
Physical Exam: SUBJECTIVE: Patient seen and examined at bedside this AM in ICU. Intubated but not sedated at present. Hypothermic this morning and looks very uncomfortable. BP continues to be low despite Levophed, Dobutamine & Midodrine administration. Discussed case with health care proxy, niece, who will come by ICU today to discuss goals of care. OBJECTIVE: Vital Signs Period Temp Pulse Resp BP Sys/Hubbard Pulse Ox Last 24 Hr 97 F-99.8 F 83-100 15-40 62-106/24-83 92-100 GENERAL: Intubated & on fentanyl. Shivering & uncomfortable in bed. HEENT: Atraumatic, EOMI, PERRLA, No lymphadenopathy, dry membranes LUNGS: moderate bibasilar crackles noted (R>L), no wheezing or accessory muscle use HEART: irregular but rate controlled, S1 and S2 without murmur, rub or gallop. ABDOMEN: Soft, nontender, not distended, normoactive bowel sounds EXTREMITIES: 1+ pulses, warm, well-perfused. No calf tenderness. +1 bilateral pitting edema in lower extremity NEUROLOGICAL: deferred due to clinical condition PSYCHIATRIC: unable to respond to questions or commands SKIN: multiple stage III decubitus to buttocks, shins and scrotum Laboratory Results - last 24 hr 08/12/16 08/12/16 08/13/16 09:40 14:20 06:16 WBC 18.9 H RBC 2.87 L Hgb 8.1 L Hct 25.9 L MCV 90.4 MCHC 31.1 L RDW 20.1 H Plt Count 30 L* MPV 10.6 INR PTT (Actin FS) Puncture Site Right radial Right radial ABG pH 7.17 L* 7.40 D ABG pCO2 at Pt Temp 73.2 H* D 37.6 D ABG pO2 at Pt Temp 78.2 D 236.0 H* D ABG HCO3 25.6 23.0 ABG O2 Sat (Measured) 93.1 100.0 H* ABG O2 Content 11.5 L 11.8 L ABG Base Excess -3.2 L -1.1 Franike Test Positive Positive O2 Delivery Device Nasal o2 Vent Oxygen Flow Rate 3l 100% Vent Mode A/c Vent Rate 16 Mechanical Rate Yes PEEP 5.0 Pressure Support Vent 450 Sodium Potassium Chloride Carbon Dioxide Anion Gap BUN Creatinine Random Glucose Calcium Phosphorus Magnesium 08/13/16 08/13/16 08/13/16 06:16 06:16 07:50 WBC RBC Hgb Hct MCV MCHC RDW Plt Count MPV INR 2.00 H PTT (Actin FS) 53.9 H Puncture Site Right radial ABG pH 7.42 ABG pCO2 at Pt Temp 37.3 ABG pO2 at Pt Temp 105.0 H D ABG HCO3 23.7 ABG O2 Sat (Measured) 99.2 H ABG O2 Content 11.2 L ABG Base Excess -0.1 Frankie Test Positive O2 Delivery Device Mec.vent Oxygen Flow Rate 50% Vent Mode A/c Vent Rate 16 Mechanical Rate Esprit PEEP 5.0 Pressure Support Vent 450 Sodium 134 L Potassium 3.6 Chloride 97 L Carbon Dioxide 24 Anion Gap 13 BUN 27 H D Creatinine 2.3 H D Random Glucose 87 D Calcium 7.2 L Phosphorus 1.2 L D Magnesium 1.4 L D Active Medications Generic Name Dose Route Start Last Admin Trade Name Freq PRN Reason Stop Dose Admin Acetaminophen 325 mg 07/29/16 11:06 Tylenol - PO Q6H PRN FEVER Amino Acids 30 ml 08/06/16 17:30 08/12/16 17:05 Prosource No Carb Liquid Pkt PO Not Given BID@0800,1730 [facility] Amiodarone HCl 400 mg 08/04/16 10:00 08/12/16 10:03 Cordarone - PO 400 mg DAILY [facility] Administration Brimonidine Tartrate 1 drop 07/29/16 22:00 08/12/16 22:22 Alphagan P 0.1% - OU 1 drop BID [facility] Administration Collagenase 1 applic 07/30/16 10:00 08/12/16 13:24 Santyl - TP 1 applic DAILY [facility] Administration IV Flush 4 ml 08/03/16 22:30 Triple Lumen Flush IVPUSH PRN PRN Protocol Dobutamine HCl/Dextrose 250 mls @ 13.455 mls/hr 08/08/16 12:00 08/12/16 13:18 Dobutamine 250 Mg/D5w - IV 26.9 mls/hr TITR [facility] Administration Protocol 2.5 MCG/KG/MIN Norepinephrine Bitartrate 8, 508 mls @ 19.05 mls/hr 08/12/16 12:13 08/13/16 03: 00 000 mcg/ Sodium Chloride IV 30 mcg/min TITR [facility] Titration Protocol 5 MCG/MIN Fentanyl 500 mcg/ Dextrose 100 mls @ 5 mls/hr 08/12/16 13:00 08/12/16 13:16 IJ 5 mls/hr TITR [facility] Administration 25 MCG/HR Levothyroxine Sodium 50 mcg 07/30/16 07:00 08/13/16 06:23 Synthroid - PO Not Given DAILY@0700 [facility] Midazolam HCl 2 mg 08/12/16 12:48 Versed - IVPUSH Q2H PRN AGITATION Midodrine 2.5 mg 08/11/16 18:00 08/12/16 17:06 Proamatine - PO Not Given BID-MID [facility] Multivit/Ca Carb/B Cmplx/FA/Prenat 1 tablet 08/06/16 11:45 08/12/16 10:01 Nephro-Mor - PO 1 tablet DAILY [facility] Administration Phytonadione 5 mg 08/12/16 10:00 08/12/16 09:30 Aqua Mephyton Injection - SQ 08/14/16 10:01 5 mg DAILY [facility] Administration Piperacillin Sod/Tazobactam Sod 3.375 gm 08/12/16 11:30 Zosyn 3.375gm Ivpb (Pre-Docked) IVPB Q8H-IV [facility] Protocol Vancomycin HCl 1,000 mg 08/12/16 11:30 Vancomycin (Pre-Docked) IVPB DAILY [facility] Protocol ASSESSMENT/PLAN: 76 year old male with PMH of A-Fib, CAD, Systolic CHF, HTN/HLD, COPD, PUD, ESRD on HD, multiple lower back ulcers, hypothyroidism & DM who is sent to ICU s/p rapid response for hypotension. #Septic Shock, likely secondary to multiple decubitus ulcers -BP support with Levophed, Dobutamine (approaching maximum dosing) -continue Midodrine 2.5 mg BID -bedside debridement with vascular surgery successful & without complication -patient has severe systolic CHF, MAP >50-55 is acceptable -collagenase administered to ulcers -Duonebs QIDR #Acute Thrombocytopenia -etiology is likely critical illness (Pattern of drop not suggestive of HIT) -will transfuse prophylactically for platelet count <20K, as per hematology recommendation -continue Vitamin K administration -Hematology consult appreciated #ESRD on HD -HD as per nephrology -avoid nephrotoxic meds -Nephrology consult appreciated #Atrial Fibrillation/CAD Hx/CHF Hx -Not a candidate for AC -on Amiodarone 400mg PO daily, as per cardiology -cardiology consult appreciated #Hypothyroidism -continue home meds: Synthroid 50mcg Prophylaxis -SCD's -PPI -cautious with IVF administration -monitor electrolytes Dispo: Palliative Care consulted. Patient is DNR. Niece is HCP. Family planning meeting scheduled for later this morning. Visit type - Emergency Visit Emergency Visit: Yes ED Registration Date: 07/24/16 Care time: The patient presented to the Emergency Department on the above date and was hospitalized for further evaluation of their emergent condition. - New Patient This patient is new to me today: No - Critical Care Critical Care patient: Yes Total Critical Care Time (in minutes): 50 Critical Care Statement: The care of this patient involved high complexity decision making to prevent further life threatening deterioration of the patient 's condition and/or to evalute & treat vital organ system(s) failure or risk of failure.
[2016-08-13] MEDS: BRIMONIDINE TARTRATE 0.1% OPHTHALMIC 5 ML BOTTLE OU SCH (10:00)
--- NOTE | 2016-08-13 10:00 | PN ---
Progress Note, Physician Chief Complaint: Now intubated on Levophed and Dobutamine drip Versed as needed Pt sedated not in distress - Current Medication List Current Medications: Active Medications Amiodarone HCl (Cordarone -) 400 mg PO DAILY [facility] Last Admin: 08/12/16 10:03 Dose: 400 mg Brimonidine Tartrate (Alphagan P 0.1% -) 1 drop OU BID [facility] Last Admin: 08/12/16 22:22 Dose: 1 drop Collagenase (Santyl -) 1 applic TP DAILY [facility] Last Admin: 08/12/16 13:24 Dose: 1 applic IV Flush (Triple Lumen Flush) 4 ml IVPUSH PRN PRN PRN Reason: Protocol Dobutamine HCl/Dextrose (Dobutamine 250 Mg/D5w -) 250 mls @ 13.455 mls/hr IV TITR [facility]; 2.5 MCG/KG/MIN PRN Reason: Protocol Last Admin: 08/12/16 13:18 Dose: 26.9 mls/hr Norepinephrine Bitartrate 8, (000 mcg/ Sodium Chloride) 508 mls @ 19.05 mls/hr IV TITR [facility]; 5 MCG/MIN PRN Reason: Protocol Last Titration: 08/13/16 03:00 Dose: 30 mcg/min Fentanyl 500 mcg/ Dextrose 100 mls @ 5 mls/hr IJ TITR [facility] PRN Reason: 25 MCG/HR Last Admin: 08/12/16 13:16 Dose: 5 mls/hr Levothyroxine Sodium (Synthroid -) 50 mcg PO DAILY@0700 [facility] Last Admin: 08/13/16 06:23 Dose: Not Given Midazolam HCl (Versed -) 2 mg IVPUSH Q2H PRN PRN Reason: AGITATION Midodrine (Proamatine -) 2.5 mg PO BID-MID [facility] Last Admin: 08/12/16 17:06 Dose: Not Given Phytonadione (Aqua Mephyton Injection -) 5 mg SQ DAILY [facility] Stop: 08/14/16 10:01 Last Admin: 08/12/16 09:30 Dose: 5 mg Piperacillin Sod/Tazobactam Sod (Zosyn 3.375gm Ivpb (Pre-Docked)) 3.375 gm IVPB Q8H-IV [facility] PRN Reason: Protocol Vancomycin HCl (Vancomycin (Pre-Docked)) 1,000 mg IVPB DAILY [facility] PRN Reason: Protocol - Objective Vital Signs: Vital Signs Temperature 99.6 F 08/13/16 09:12 Pulse Rate 99 H 08/13/16 09:12 Respiratory Rate 15 08/13/16 09:12 Blood Pressure 85/55 08/13/16 09:12 O2 Sat by Pulse Oximetry (%) 100 08/12/16 20:00 Constitutional: Yes: Mild Distress HENT: Yes: Other (intubated) Cardiovascular: Yes: Pulse Irregular, Murmur Respiratory: Yes: Diminished Gastrointestinal: Yes: Normal Bowel Sounds, Soft. No: Distention, Tenderness Extremities: Yes: Other (multiple leg wounds) Edema: Yes Edema: LLE: 1+, RLE: 1+ Labs: CBC, BMP 08/13/16 06:16 08/13/16 06:16 INR, PTT INR 2.00 (0.82-1.09) H 08/13/16 06:16 Fibrinogen 272.0 mg/dL (238-498) 08/12/16 06:00 Problem List - Problems (1) Congestive heart failure (CHF) Code(s): I50.9 - HEART FAILURE, UNSPECIFIED Qualifiers: Congestive heart failure type: systolic Congestive heart failure chronicity: chronic Qualified Code(s): I50.22 - Chronic systolic (congestive ) heart failure (2) DMII (diabetes mellitus, type 2) Code(s): E11.9 - TYPE 2 DIABETES MELLITUS WITHOUT COMPLICATIONS Qualifiers: Diabetes mellitus complication detail: with other kidney complication (3) HTN (hypertension) Code(s): I10 - ESSENTIAL (PRIMARY) HYPERTENSION Qualifiers: Hypertension type: essential hypertension Qualified Code(s): I10 - Essential (primary) hypertension (4) Pressure ulcer of lower extremity, stage 1 Code(s): L89.891 - PRESSURE ULCER OF OTHER SITE, STAGE 1 (5) Sepsis Code(s): A41.9 - SEPSIS, UNSPECIFIED ORGANISM Qualifiers: Sepsis type: sepsis due to unspecified organism Qualified Code(s): A41.9 - Sepsis, unspecified organism (6) Rapid atrial fibrillation Code(s): I48.91 - UNSPECIFIED ATRIAL FIBRILLATION (7) Functional quadriplegia Code(s): R53.2 - FUNCTIONAL QUADRIPLEGIA (8) End stage renal disease on dialysis Code(s): N18.6 - END STAGE RENAL DISEASE Z99.2 - DEPENDENCE ON RENAL DIALYSIS Assessment/Plan PLAN SEPSIS pt is hypothermic still restarted antibiotics blood cultures pending platelets decreased on 2 pressors , WBC still elevated HYPOTENSION BP is low-- on 2 pressors, Midodrine added end-stage renal disease on dialysis HD per Renal if tolerated elevated troponins, rapid A. fib Not a candidate for anticoagulation rate control with Amiodarone CHF systolic heart failure- severe HD per renal check ABG Not on AceI or ARB due to hypotension advanced directives patient is DNR Poor prognosis- niece came yesterday when informed that pt was intubated. She will be coming be later today for decisions regarding further care. ICU monitoring
--- NOTE | 2016-08-13 11:26 | PN ---
Progress Note, Physician History of Present Illness: Pt seen and examined at bedside. He remains in the ICU. He remains intubated and on pressors. - Current Medication List Current Medications: Active Medications Amiodarone HCl (Cordarone -) 400 mg PO DAILY [facility] Last Admin: 08/12/16 10:03 Dose: 400 mg Brimonidine Tartrate (Alphagan P 0.1% -) 1 drop OU BID [facility] Last Admin: 08/12/16 22:22 Dose: 1 drop Collagenase (Santyl -) 1 applic TP DAILY [facility] Last Admin: 08/12/16 13:24 Dose: 1 applic IV Flush (Triple Lumen Flush) 4 ml IVPUSH PRN PRN PRN Reason: Protocol Dobutamine HCl/Dextrose (Dobutamine 250 Mg/D5w -) 250 mls @ 13.455 mls/hr IV TITR [facility]; 2.5 MCG/KG/MIN PRN Reason: Protocol Last Admin: 08/12/16 13:18 Dose: 26.9 mls/hr Norepinephrine Bitartrate 8, (000 mcg/ Sodium Chloride) 508 mls @ 19.05 mls/hr IV TITR [facility]; 5 MCG/MIN PRN Reason: Protocol Last Titration: 08/13/16 03:00 Dose: 30 mcg/min Fentanyl 500 mcg/ Dextrose 100 mls @ 5 mls/hr IJ TITR [facility] PRN Reason: 25 MCG/HR Last Admin: 08/12/16 13:16 Dose: 5 mls/hr Levothyroxine Sodium (Synthroid -) 50 mcg PO DAILY@0700 [facility] Last Admin: 08/13/16 06:23 Dose: Not Given Midazolam HCl (Versed -) 2 mg IVPUSH Q2H PRN PRN Reason: AGITATION Midodrine (Proamatine -) 2.5 mg PO BID-MID [facility] Last Admin: 08/12/16 17:06 Dose: Not Given Phytonadione (Aqua Mephyton Injection -) 5 mg SQ DAILY [facility] Stop: 08/14/16 10:01 Last Admin: 08/12/16 09:30 Dose: 5 mg Piperacillin Sod/Tazobactam Sod (Zosyn 3.375gm Ivpb (Pre-Docked)) 3.375 gm IVPB Q8H-IV [facility] PRN Reason: Protocol Vancomycin HCl (Vancomycin (Pre-Docked)) 1,000 mg IVPB DAILY [facility] PRN Reason: Protocol - Objective Vital Signs: Vital Signs Temperature 99.6 F 08/13/16 10:00 Pulse Rate 99 H 08/13/16 10:00 Respiratory Rate 15 08/13/16 10:00 Blood Pressure 85/55 08/13/16 10:00 O2 Sat by Pulse Oximetry (%) 97 08/13/16 09:00 Constitutional: Yes: Calm Eyes: Yes: Conjunctiva Clear HENT: Yes: Atraumatic Cardiovascular: Yes: S1, S2 Respiratory: Yes: Mechanically Ventilated Gastrointestinal: Yes: Soft Genitourinary: Yes: Incontinence Musculoskeletal: Yes: Muscle Weakness Edema: Yes Edema: LLE: 1+, RLE: 1+ Neurological: Yes: Lethargy Labs: CBC, BMP 08/13/16 06:16 08/13/16 06:16 INR, PTT INR 2.00 (0.82-1.09) H 08/13/16 06:16 Fibrinogen 272.0 mg/dL (238-498) 08/12/16 06:00 - ....Imaging Chest X-ray: Report Reviewed Problem List - Problems (1) End stage renal disease on dialysis Code(s): N18.6 - END STAGE RENAL DISEASE Z99.2 - DEPENDENCE ON RENAL DIALYSIS (2) Hypotension Code(s): I95.9 - HYPOTENSION, UNSPECIFIED Qualifiers: Hypotension type: unspecified hypotension type Qualified Code(s): I95.9 - Hypotension, unspecified (3) Anemia Code(s): D64.9 - ANEMIA, UNSPECIFIED Qualifiers: Other causes of anemia: chronic disease, kidney Assessment/Plan Current Medications Generic Name Dose Route Start Last Admin Trade Name Freq PRN Reason Stop Dose Admin Amiodarone HCl 400 mg 08/04/16 10:00 08/12/16 10:03 Cordarone - PO 400 mg DAILY [facility] Administration Brimonidine Tartrate 1 drop 07/29/16 22:00 08/12/16 22:22 Alphagan P 0.1% - OU 1 drop BID [facility] Administration Collagenase 1 applic 07/30/16 10:00 08/12/16 13:24 Santyl - TP 1 applic DAILY [facility] Administration IV Flush 4 ml 08/03/16 22:30 Triple Lumen Flush IVPUSH PRN PRN Protocol Dobutamine HCl/Dextrose 250 mls @ 13.455 mls/hr 08/08/16 12:00 08/12/16 13:18 Dobutamine 250 Mg/D5w - IV 26.9 mls/hr TITR [facility] Administration Protocol 2.5 MCG/KG/MIN Norepinephrine Bitartrate 8, 508 mls @ 19.05 mls/hr 08/12/16 12:13 08/13/16 03: 00 000 mcg/ Sodium Chloride IV 30 mcg/min TITR [facility] Titration Protocol 5 MCG/MIN Fentanyl 500 mcg/ Dextrose 100 mls @ 5 mls/hr 08/12/16 13:00 08/12/16 13:16 IJ 5 mls/hr TITR [facility] Administration 25 MCG/HR Levothyroxine Sodium 50 mcg 07/30/16 07:00 08/13/16 06:23 Synthroid - PO Not Given DAILY@0700 [facility] Midazolam HCl 2 mg 08/12/16 12:48 Versed - IVPUSH Q2H PRN AGITATION Midodrine 2.5 mg 08/11/16 18:00 08/12/16 17:06 Proamatine - PO Not Given BID-MID [facility] Phytonadione 5 mg 08/12/16 10:00 08/12/16 09:30 Aqua Mephyton Injection - SQ 08/14/16 10:01 5 mg DAILY [facility] Administration Piperacillin Sod/Tazobactam Sod 3.375 gm 08/12/16 11:30 Zosyn 3.375gm Ivpb (Pre-Docked) IVPB Q8H-IV [facility] Protocol Vancomycin HCl 1,000 mg 08/12/16 11:30 Vancomycin (Pre-Docked) IVPB DAILY [facility] Protocol Impression 1. ESRD on HD 2. hypotension 3. cellulitis/abscess of back 4. CHF 5. hypothyroidism 6. hyperlipidemia 7. COPD 8. a-fib 9. pleural effusion 10. respiratory failure requiring bipap Plan - pt unstable for HD today - cont pressors - discuss GOC with family - discussed with ICU team - cont pressors to a MAP of 65 - cont vent support - sodium level is improved - cont management per ICU team - cardiology follow up - wound care to legs - will follow - prognosis is poor Dr Martinez
[2016-08-13] MEDS: DOBUTAMINE 250 MG/D5W - 250 ML IV SCH ×2 (12:01→20:00)
[2016-08-13] MEDS: COLLAGENASE CLOSTRIDIUM HIST. 30 GRAMS TUBE TP SCH (12:03)
[2016-08-13] MEDS: NOREPINEPHRINE BITARTRATE 8,000 MCG in SODIUM CHLORIDE 500 ML IV SCH ×2 (12:04→20:40)
--- NOTE | 2016-08-13 13:55 | PN ---
Teaching Attending Note Name of Resident: Irvin Harden ATTENDING PHYSICIAN STATEMENT I saw and evaluated the patient. I reviewed the resident's note and discussed the case with the resident. I agree with the resident's findings and plan as documented. SUBJECTIVE: Pt seen and examined in the ICU. Remains intubated, sedated. On high dose levophed gtt and dobutamine gtt. OBJECTIVE: Last Vital Signs Temp Pulse Resp BP Pulse Ox 99.6 F 99 H 28 H 85/55 97 08/13/16 10:00 08/13/16 12:04 08/13/16 12:30 08/13/16 12:04 08/13/16 09:00 Intake & Output 08/10/16 08/11/16 08/12/16 08/13/16 23:59 23:59 23:59 23:59 Intake Total 4460 3432.8 3320.4 1282.8 Output Total 400 Balance 4060 3432.8 3320.4 1282.8 Weight 205 lb 2 oz 206 lb 14.4 oz 206 lb 14.4 oz 208 lb 6.4 oz Gen: intubated, sedated Heart: RRR Lung: bilateral rhonchi Abd: soft, nontender Ext: +ulcers CBC, BMP 08/13/16 06:16 08/13/16 06:16 Active Medications Amiodarone HCl (Cordarone -) 400 mg PO DAILY [facility] Last Admin: 08/12/16 10:03 Dose: 400 mg Brimonidine Tartrate (Alphagan P 0.1% -) 1 drop OU BID [facility] Last Admin: 08/12/16 22:22 Dose: 1 drop Collagenase (Santyl -) 1 applic TP DAILY [facility] Last Admin: 08/13/16 12:03 Dose: 1 applic IV Flush (Triple Lumen Flush) 4 ml IVPUSH PRN PRN PRN Reason: Protocol Dobutamine HCl/Dextrose (Dobutamine 250 Mg/D5w -) 250 mls @ 13.455 mls/hr IV TITR [facility]; 2.5 MCG/KG/MIN PRN Reason: Protocol Last Admin: 08/13/16 12:01 Dose: 26.856 mls/hr Norepinephrine Bitartrate 8, (000 mcg/ Sodium Chloride) 508 mls @ 19.05 mls/hr IV TITR [facility]; 5 MCG/MIN PRN Reason: Protocol Last Admin: 08/13/16 12:04 Dose: 114.3 mls/hr Fentanyl 500 mcg/ Dextrose 100 mls @ 5 mls/hr IJ TITR [facility] PRN Reason: 25 MCG/HR Last Admin: 08/12/16 13:16 Dose: 5 mls/hr Levothyroxine Sodium (Synthroid -) 50 mcg PO DAILY@0700 [facility] Last Admin: 08/13/16 06:23 Dose: Not Given Midazolam HCl (Versed -) 2 mg IVPUSH Q2H PRN PRN Reason: AGITATION Midodrine (Proamatine -) 2.5 mg PO BID-MID [facility] Last Admin: 08/12/16 17:06 Dose: Not Given Phytonadione (Aqua Mephyton Injection -) 5 mg SQ DAILY [facility] Stop: 08/14/16 10:01 Last Admin: 08/12/16 09:30 Dose: 5 mg ASSESSMENT AND PLAN: Acute on Chronic Hypoxic and Hypercapneic Respiratory Failure Sacral Decubitus Ulcer Infection Septic Shock Thrombocyotopenia Lactic Acidosis resolved ESRD on HD Acute on Chronic Severe LV Systolic Dysfunction Atrial Fibrillation CAD - antibiotics per ID - titrate levophed, dobutamine gtts to maintain MAP >50 - O2 to keep SpO2 >90% - HD per renal - aspiration precautions - wound care - DVT prophylaxis - continue discussions regarding goals of care as pt chronically ill with prolonged multiple hospitalizations - will need tracheostomy due to multiple prior intubations and end stage cardiac/renal disease but recommend compassionate extubation and comfort care critical care time spent in reviewing chart, evaluating patient and formulating plan 38 min
[2016-08-13] MEDS: PHYTONADIONE 10 MG/1 ML AMP SQ SCH (15:07)
[2016-08-13] MEDS: AMIODARONE HCL 200 MG TABLET (FP) PO SCH (15:08)
[2016-08-13] MEDS: MIDODRINE HCL 2.5 MG TABLET PO SCH ×2 (15:08→21:21)
[2016-08-13] MEDS: MIDAZOLAM HCL 2 MG/2 ML SINGLE DOSE VIAL IVPUSH PRN (15:29)
[2016-08-13] MEDS: FENTANYL INJECTION 500 MCG in DEXTROSE 5%-WATER - 90 ML IJ SCH (18:47)
[2016-08-13] MEDS ORDERED: ACETAMINOPHEN 1000 MG/100 ML VIAL (NON FORMULARY) IVPB PRN (22:02)
[2016-08-14] MEDS: MIDAZOLAM HCL 2 MG/2 ML SINGLE DOSE VIAL IVPUSH PRN ×3 (00:57→16:52)
[2016-08-14] MEDS: BRIMONIDINE TARTRATE 0.1% OPHTHALMIC 5 ML BOTTLE OU SCH ×2 (00:58→10:08)
[2016-08-14] MEDS ORDERED: NOREPINEPHRINE BITARTRATE 4 MG/4 ML ML IV ONE ×4 (01:08→16:54)
[2016-08-14] MEDS ORDERED: DOBUTAMINE 250 MG/D5W - 250 ML ONE (06:28)
[2016-08-14] MEDS: LEVOTHYROXINE NA 50 MCG TABLET (FP) PO SCH (07:32)
--- NOTE | 2016-08-14 08:32 | PN ---
Physical Exam: SUBJECTIVE: Patient seen and examined at bedside this AM. MAP 50-60 on several pressors at high doses. Plan is for terminal extubation later this afternoon with comfort care. OBJECTIVE: Vital Signs Period Temp Pulse Resp BP Sys/Hubbard Pulse Ox Last 24 Hr 99.1 F-101.6 F 98-108 13-28 72-102/45-80 96-100 GENERAL: Intubated & on fentanyl. Shivering & uncomfortable in bed. HEENT: Atraumatic, EOMI, PERRLA, No lymphadenopathy, dry membranes LUNGS: moderate bibasilar crackles noted (R>L), no wheezing or accessory muscle use HEART: irregular but rate controlled, S1 and S2 without murmur, rub or gallop. ABDOMEN: Soft, nontender, not distended, normoactive bowel sounds EXTREMITIES: 1+ pulses, warm, well-perfused. No calf tenderness. +1 bilateral pitting edema in lower extremity NEUROLOGICAL: deferred due to clinical condition PSYCHIATRIC: unable to respond to questions or commands SKIN: multiple stage III decubitus to buttocks, shins and scrotum Laboratory Results - last 24 hr 08/12/16 05:45 Hep-Induced Plt Ab Rapid 0.257 Active Medications Generic Name Dose Route Start Last Admin Trade Name Freq PRN Reason Stop Dose Admin Acetaminophen 1,000 mg 08/13/16 22:02 08/13/16 21:30 Ofirmev Injection - IVPB 08/14/16 16:03 1,000 mg Q6H PRN Administration FEVER OR PAIN Amiodarone HCl 400 mg 08/04/16 10:00 08/13/16 15:08 Cordarone - PO Not Given DAILY [facility] Brimonidine Tartrate 1 drop 07/29/16 22:00 08/14/16 00:58 Alphagan P 0.1% - OU 1 drop BID [facility] Administration Collagenase 1 applic 07/30/16 10:00 08/13/16 12:03 Santyl - TP 1 applic DAILY [facility] Administration IV Flush 4 ml 08/03/16 22:30 Triple Lumen Flush IVPUSH PRN PRN Protocol Dobutamine HCl/Dextrose 250 mls @ 13.455 mls/hr 08/08/16 12:00 08/13/16 20:00 Dobutamine 250 Mg/D5w - IV 26.856 mls/hr TITR [facility] Administration Protocol 2.5 MCG/KG/MIN Norepinephrine Bitartrate 8, 508 mls @ 19.05 mls/hr 08/12/16 12:13 08/13/16 20: 40 000 mcg/ Sodium Chloride IV 95.25 mls/hr TITR [facility] Administration Protocol 5 MCG/MIN Fentanyl 500 mcg/ Dextrose 100 mls @ 5 mls/hr 08/12/16 13:00 08/13/16 18:47 IJ 5 mls/hr TITR [facility] Administration 25 MCG/HR Levothyroxine Sodium 50 mcg 07/30/16 07:00 08/14/16 07:32 Synthroid - PO Not Given DAILY@0700 [facility] Midazolam HCl 2 mg 08/12/16 12:48 08/14/16 00:57 Versed - IVPUSH 2 mg Q2H PRN Administration AGITATION Midodrine 2.5 mg 08/11/16 18:00 08/13/16 21:21 Proamatine - PO Not Given BID-MID [facility] Phytonadione 5 mg 08/12/16 10:00 08/13/16 15:07 Aqua Mephyton Injection - SQ 08/14/16 10:01 5 mg DAILY [facility] Administration ASSESSMENT/PLAN: 76 year old male with PMH of A-Fib, CAD, Systolic CHF, HTN/HLD, COPD, PUD, ESRD on HD, multiple lower back ulcers, hypothyroidism & DM who is sent to ICU s/p rapid response for hypotension. #Septic Shock, likely secondary to multiple decubitus ulcers, s/p bedside debridement & antibiotic course -Plan is for compassionate extubation sometime later today, as per health care proxy Niece -continue Levophed, Dobutamine, Midodrine for now -collagenase administered to ulcers #Acute Thrombocytopenia -etiology is likely critical illness (Pattern of drop not suggestive of HIT) -Hematology consult appreciated #ESRD on HD -HD as per nephrology, deferring for now -avoid nephrotoxic meds -Nephrology consult appreciated #Atrial Fibrillation/CAD Hx/CHF Hx -Amiodarone 400mg PO given -cardiology consult appreciated #Hypothyroidism -given Synthroid 50mcg Patient is DNR. Niece is HCP. DISPO: PLAN FOR COMPASSIONATE EXTUBATION LATER TODAY Visit type - Emergency Visit Emergency Visit: Yes ED Registration Date: 07/24/16 Care time: The patient presented to the Emergency Department on the above date and was hospitalized for further evaluation of their emergent condition. - New Patient This patient is new to me today: No - Critical Care Critical Care patient: Yes Total Critical Care Time (in minutes): 45 Critical Care Statement: The care of this patient involved high complexity decision making to prevent further life threatening deterioration of the patient 's condition and/or to evalute & treat vital organ system(s) failure or risk of failure.
[2016-08-14] MEDS: PHYTONADIONE 10 MG/1 ML AMP SQ SCH (10:08)
[2016-08-14] MEDS: MIDODRINE HCL 2.5 MG TABLET PO SCH (10:09)
[2016-08-14] MEDS: AMIODARONE HCL 200 MG TABLET (FP) PO SCH (10:09)
[2016-08-14] MEDS: COLLAGENASE CLOSTRIDIUM HIST. 30 GRAMS TUBE TP SCH (10:10)
--- NOTE | 2016-08-14 10:34 | PN ---
Progress Note, Physician Chief Complaint: intubated events noted spoke with resident-- Niece has decided to terminally wean pt -- she is waiting for pt's brother to come here from [place] sedated - Current Medication List Current Medications: Active Medications Acetaminophen (Ofirmev Injection -) 1,000 mg IVPB Q6H PRN PRN Reason: FEVER OR PAIN Stop: 08/14/16 16:03 Last Admin: 08/13/16 21:30 Dose: 1,000 mg Amiodarone HCl (Cordarone -) 400 mg PO DAILY [facility] Last Admin: 08/14/16 10:09 Dose: Not Given Brimonidine Tartrate (Alphagan P 0.1% -) 1 drop OU BID [facility] Last Admin: 08/14/16 10:08 Dose: 1 drop Collagenase (Santyl -) 1 applic TP DAILY [facility] Last Admin: 08/14/16 10:10 Dose: 1 applic IV Flush (Triple Lumen Flush) 4 ml IVPUSH PRN PRN PRN Reason: Protocol Dobutamine HCl/Dextrose (Dobutamine 250 Mg/D5w -) 250 mls @ 13.455 mls/hr IV TITR [facility]; 2.5 MCG/KG/MIN PRN Reason: Protocol Last Admin: 08/13/16 20:00 Dose: 26.856 mls/hr Norepinephrine Bitartrate 8, (000 mcg/ Sodium Chloride) 508 mls @ 19.05 mls/hr IV TITR [facility]; 5 MCG/MIN PRN Reason: Protocol Last Admin: 08/13/16 20:40 Dose: 95.25 mls/hr Fentanyl 500 mcg/ Dextrose 100 mls @ 5 mls/hr IJ TITR [facility] PRN Reason: 25 MCG/HR Last Admin: 08/13/16 18:47 Dose: 5 mls/hr Levothyroxine Sodium (Synthroid -) 50 mcg PO DAILY@0700 [facility] Last Admin: 08/14/16 07:32 Dose: Not Given Midazolam HCl (Versed -) 2 mg IVPUSH Q2H PRN PRN Reason: AGITATION Last Admin: 08/14/16 10:08 Dose: 2 mg Midodrine (Proamatine -) 2.5 mg PO BID-MID [facility] Last Admin: 08/14/16 10:09 Dose: 2.5 mg - Objective Vital Signs: Vital Signs Temperature 99.2 F 08/14/16 09:51 Pulse Rate 96 H 08/14/16 09:51 Respiratory Rate 15 08/14/16 09:51 Blood Pressure 77/57 08/14/16 09:51 O2 Sat by Pulse Oximetry (%) 100 08/14/16 09:00 Constitutional: Yes: No Distress, Other (intubated) Cardiovascular: Yes: Pulse Irregular Respiratory: Yes: Diminished Gastrointestinal: Yes: Normal Bowel Sounds, Soft, Abdomen, Obese. No: Tenderness Edema: Yes Labs: CBC, BMP 08/13/16 06:16 08/13/16 06:16 INR, PTT INR 2.00 (0.82-1.09) H 08/13/16 06:16 Fibrinogen 272.0 mg/dL (238-498) 08/12/16 06:00 Problem List - Problems (1) Congestive heart failure (CHF) Code(s): I50.9 - HEART FAILURE, UNSPECIFIED Qualifiers: Congestive heart failure type: systolic Congestive heart failure chronicity: chronic Qualified Code(s): I50.22 - Chronic systolic (congestive ) heart failure (2) DMII (diabetes mellitus, type 2) Code(s): E11.9 - TYPE 2 DIABETES MELLITUS WITHOUT COMPLICATIONS Qualifiers: Diabetes mellitus complication detail: with other kidney complication (3) HTN (hypertension) Code(s): I10 - ESSENTIAL (PRIMARY) HYPERTENSION Qualifiers: Hypertension type: essential hypertension Qualified Code(s): I10 - Essential (primary) hypertension (4) Pressure ulcer of lower extremity, stage 1 Code(s): L89.891 - PRESSURE ULCER OF OTHER SITE, STAGE 1 (5) Sepsis Code(s): A41.9 - SEPSIS, UNSPECIFIED ORGANISM Qualifiers: Sepsis type: sepsis due to unspecified organism Qualified Code(s): A41.9 - Sepsis, unspecified organism (6) Rapid atrial fibrillation Code(s): I48.91 - UNSPECIFIED ATRIAL FIBRILLATION (7) Functional quadriplegia Code(s): R53.2 - FUNCTIONAL QUADRIPLEGIA (8) End stage renal disease on dialysis Code(s): N18.6 - END STAGE RENAL DISEASE Z99.2 - DEPENDENCE ON RENAL DIALYSIS Assessment/Plan PLAN prognosis poor at this point pt is on two pressors, Versed drip and Fenatnyl drip No meaningful recovery at this time decision made by HCP for compassionate weaning Pt is DNR supportive care
--- NOTE | 2016-08-14 12:03 | PN ---
Progress Note, Physician History of Present Illness: Pt seen and examined at bedside. He remains in the ICU. - Current Medication List Current Medications: Active Medications Acetaminophen (Ofirmev Injection -) 1,000 mg IVPB Q6H PRN PRN Reason: FEVER OR PAIN Stop: 08/14/16 16:03 Last Admin: 08/13/16 21:30 Dose: 1,000 mg Amiodarone HCl (Cordarone -) 400 mg PO DAILY SISI Last Admin: 08/14/16 10:09 Dose: Not Given Brimonidine Tartrate (Alphagan P 0.1% -) 1 drop OU BID SISI Last Admin: 08/14/16 10:08 Dose: 1 drop Collagenase (Santyl -) 1 applic TP DAILY SISI Last Admin: 08/14/16 10:10 Dose: 1 applic IV Flush (Triple Lumen Flush) 4 ml IVPUSH PRN PRN PRN Reason: Protocol Dobutamine HCl/Dextrose (Dobutamine 250 Mg/D5w -) 250 mls @ 13.455 mls/hr IV TITR SISI; 2.5 MCG/KG/MIN PRN Reason: Protocol Last Admin: 08/13/16 20:00 Dose: 26.856 mls/hr Norepinephrine Bitartrate 8, (000 mcg/ Sodium Chloride) 508 mls @ 19.05 mls/hr IV TITR SISI; 5 MCG/MIN PRN Reason: Protocol Last Admin: 08/13/16 20:40 Dose: 95.25 mls/hr Fentanyl 500 mcg/ Dextrose 100 mls @ 5 mls/hr IJ TITR SISI PRN Reason: 25 MCG/HR Last Admin: 08/13/16 18:47 Dose: 5 mls/hr Levothyroxine Sodium (Synthroid -) 50 mcg PO DAILY@0700 SISI Last Admin: 08/14/16 07:32 Dose: Not Given Midazolam HCl (Versed -) 2 mg IVPUSH Q2H PRN PRN Reason: AGITATION Last Admin: 08/14/16 10:08 Dose: 2 mg Midodrine (Proamatine -) 2.5 mg PO BID-MID SISI Last Admin: 08/14/16 10:09 Dose: 2.5 mg - Objective Vital Signs: Vital Signs Temperature 99.2 F 08/14/16 10:00 Pulse Rate 98 H 08/14/16 11:33 Respiratory Rate 21 08/14/16 11:33 Blood Pressure 89/54 08/14/16 11:33 O2 Sat by Pulse Oximetry (%) 100 08/14/16 09:00 Constitutional: Yes: Calm Neck: Yes: Supple Cardiovascular: Yes: S1, S2 Respiratory: Yes: Mechanically Ventilated Genitourinary: Yes: Incontinence Musculoskeletal: Yes: Muscle Weakness Edema: Yes Wound/Incision: Yes: Dressing Dry and Intact Neurological: Yes: Confusion Labs: CBC, BMP 08/13/16 06:16 08/13/16 06:16 INR, PTT INR 2.00 (0.82-1.09) H 08/13/16 06:16 Fibrinogen 272.0 mg/dL (238-498) 08/12/16 06:00 Problem List - Problems (1) End stage renal disease on dialysis Code(s): N18.6 - END STAGE RENAL DISEASE Z99.2 - DEPENDENCE ON RENAL DIALYSIS (2) Hypotension Code(s): I95.9 - HYPOTENSION, UNSPECIFIED Qualifiers: Hypotension type: unspecified hypotension type Qualified Code(s): I95.9 - Hypotension, unspecified (3) Anemia Code(s): D64.9 - ANEMIA, UNSPECIFIED Qualifiers: Other causes of anemia: chronic disease, kidney Assessment/Plan Current Medications Generic Name Dose Route Start Last Admin Trade Name Freq PRN Reason Stop Dose Admin Acetaminophen 1,000 mg 08/13/16 22:02 08/13/16 21:30 Ofirmev Injection - IVPB 08/14/16 16:03 1,000 mg Q6H PRN Administration FEVER OR PAIN Amiodarone HCl 400 mg 08/04/16 10:00 08/14/16 10:09 Cordarone - PO Not Given DAILY SISI Brimonidine Tartrate 1 drop 07/29/16 22:00 08/14/16 10:08 Alphagan P 0.1% - OU 1 drop BID SISI Administration Collagenase 1 applic 07/30/16 10:00 08/14/16 10:10 Santyl - TP 1 applic DAILY SISI Administration IV Flush 4 ml 08/03/16 22:30 Triple Lumen Flush IVPUSH PRN PRN Protocol Dobutamine HCl/Dextrose 250 mls @ 13.455 mls/hr 08/08/16 12:00 08/13/16 20:00 Dobutamine 250 Mg/D5w - IV 26.856 mls/hr TITR SISI Administration Protocol 2.5 MCG/KG/MIN Norepinephrine Bitartrate 8, 508 mls @ 19.05 mls/hr 08/12/16 12:13 08/13/16 20: 40 000 mcg/ Sodium Chloride IV 95.25 mls/hr TITR SISI Administration Protocol 5 MCG/MIN Fentanyl 500 mcg/ Dextrose 100 mls @ 5 mls/hr 08/12/16 13:00 08/13/16 18:47 IJ 5 mls/hr TITR SISI Administration 25 MCG/HR Levothyroxine Sodium 50 mcg 07/30/16 07:00 08/14/16 07:32 Synthroid - PO Not Given DAILY@0700 SISI Midazolam HCl 2 mg 08/12/16 12:48 08/14/16 10:08 Versed - IVPUSH 2 mg Q2H PRN Administration AGITATION Midodrine 2.5 mg 08/11/16 18:00 08/14/16 10:09 Proamatine - PO 2.5 mg BID-MID SISI Administration Impression 1. ESRD on HD 2. hypotension 3. cellulitis/abscess of back 4. CHF 5. hypothyroidism 6. hyperlipidemia 7. COPD 8. a-fib 9. pleural effusion 10. respiratory failure requiring bipap Plan - no new labs - pt is for compassionate extubation - discussed with medical attending and ICU team - pt remain on two pressors - cont management per ICU team - wound care to legs - prognosis is poor Dr Martinez
--- NOTE | 2016-08-14 12:52 | PN ---
Teaching Attending Note Name of Resident: Irvin Harden ATTENDING PHYSICIAN STATEMENT I saw and evaluated the patient. I reviewed the resident's note and discussed the case with the resident. I agree with the resident's findings and plan as documented. SUBJECTIVE: Pt seen and examined in the ICU. Remains intubated, sedated on high dose pressor support. OBJECTIVE: Last Vital Signs Temp Pulse Resp BP Pulse Ox 99.2 F 98 H 21 89/54 100 08/14/16 10:00 08/14/16 12:00 08/14/16 12:00 08/14/16 12:00 08/14/16 09:00 Intake & Output 08/11/16 08/12/16 08/13/16 08/14/16 23:59 23:59 23:59 23:59 Intake Total 3432.8 3320.4 2305.0 1678.8 Output Total 0 1 Balance 3432.8 3320.4 2305.0 1677.8 Weight 206 lb 14.4 oz 206 lb 14.4 oz 208 lb 6.4 oz 213 lb 13.574 oz Gen: intubated, sedated Heart: RRR Lung: bilateral rhonchi Abd: soft, nontender Ext: + edema, +ulcers CBC, BMP 08/13/16 06:16 08/13/16 06:16 Active Medications Acetaminophen (Ofirmev Injection -) 1,000 mg IVPB Q6H PRN PRN Reason: FEVER OR PAIN Stop: 08/14/16 16:03 Last Admin: 08/13/16 21:30 Dose: 1,000 mg Amiodarone HCl (Cordarone -) 400 mg PO DAILY SISI Last Admin: 08/14/16 10:09 Dose: Not Given Brimonidine Tartrate (Alphagan P 0.1% -) 1 drop OU BID SISI Last Admin: 08/14/16 10:08 Dose: 1 drop Collagenase (Santyl -) 1 applic TP DAILY SISI Last Admin: 08/14/16 10:10 Dose: 1 applic IV Flush (Triple Lumen Flush) 4 ml IVPUSH PRN PRN PRN Reason: Protocol Dobutamine HCl/Dextrose (Dobutamine 250 Mg/D5w -) 250 mls @ 13.455 mls/hr IV TITR SISI; 2.5 MCG/KG/MIN PRN Reason: Protocol Last Admin: 08/13/16 20:00 Dose: 26.856 mls/hr Norepinephrine Bitartrate 8, (000 mcg/ Sodium Chloride) 508 mls @ 19.05 mls/hr IV TITR SISI; 5 MCG/MIN PRN Reason: Protocol Last Admin: 08/13/16 20:40 Dose: 95.25 mls/hr Fentanyl 500 mcg/ Dextrose 100 mls @ 5 mls/hr IJ TITR SISI PRN Reason: 25 MCG/HR Last Admin: 08/13/16 18:47 Dose: 5 mls/hr Levothyroxine Sodium (Synthroid -) 50 mcg PO DAILY@0700 SISI Last Admin: 08/14/16 07:32 Dose: Not Given Midazolam HCl (Versed -) 2 mg IVPUSH Q2H PRN PRN Reason: AGITATION Last Admin: 08/14/16 10:08 Dose: 2 mg Midodrine (Proamatine -) 2.5 mg PO BID-MID SISI Last Admin: 08/14/16 10:09 Dose: 2.5 mg ASSESSMENT AND PLAN: Acute on Chronic Hypoxic and Hypercapneic Respiratory Failure Sacral Decubitus Ulcer Infection Septic Shock Thrombocyotopenia Lactic Acidosis resolved ESRD on HD Acute on Chronic Severe LV Systolic Dysfunction Atrial Fibrillation CAD - antibiotics per ID - titrate levophed, dobutamine gtts to maintain MAP >50 - O2 to keep SpO2 >90% - HD per renal - aspiration precautions - wound care - DVT prophylaxis - continue discussions regarding goals of care as pt chronically ill with prolonged multiple hospitalizations - recommend compassionate extubation and comfort care due to multiple prior intubations and end stage cardiac/renal disease - await family today for anticipated compassionate extubation critical care time spent in reviewing chart, evaluating patient and formulating plan 35 min
[2016-08-14] MEDS: FENTANYL INJECTION 500 MCG in DEXTROSE 5%-WATER - 90 ML IJ SCH (13:59)
[2016-08-14] MEDS: NOREPINEPHRINE BITARTRATE 8,000 MCG in SODIUM CHLORIDE 500 ML IV SCH (14:00)
[2016-08-14 15:17] VITALS: TEMP 99.1
[2016-08-14 16:46] VITALS: PULSE 92
[2016-08-14] MEDS: DOBUTAMINE 250 MG/D5W - 250 ML IV SCH ×2 (16:49→16:50)
[2016-08-14 16:53] VITALS: BP 75/52
[2016-08-14] MEDS ORDERED: LORAZEPAM CARPU-JECT 2 MG/ML DISP.SYRIN IVPUSH PRN (17:56)
[2016-08-14] MEDS ORDERED: MORPHINE 100 MG in SODIUM CHLORIDE 98 ML IVPB SCH (18:00)
[2016-08-14] MEDS ORDERED: morphine CARPU-JECT 4 MG/1 ML DISP.SYRIN IVPUSH ONE (18:00)
--- NOTE | 2016-08-14 19:02 | HOSP ---
Subjective - Review of Symptoms Events since last encounter: Called by nursing staff as patient has . Upon examination, no heart or breath sounds noted. No brain stem reflexes noted. Time of 06:57 PM. Family at bedside. Visit type - Emergency Visit Emergency Visit: Yes ED Registration Date: 07/24/16 Care time: The patient presented to the Emergency Department on the above date and was hospitalized for further evaluation of their emergent condition. - New Patient This patient is new to me today: No - Critical Care Critical Care patient: Yes Total Critical Care Time (in minutes): 38 Critical Care Statement: The care of this patient involved high complexity decision making to prevent further life threatening deterioration of the patient 's condition and/or to evalute & treat vital organ system(s) failure or risk of failure.
--- NOTE | 2016-08-15 11:46 | DS ---
Physical Examination Vital Signs: Vital Signs Temperature 99.1 F 08/14/16 14:00 Pulse Rate 92 H 08/14/16 16:00 Respiratory Rate 20 08/14/16 16:38 Blood Pressure 75/52 08/14/16 16:49 O2 Sat by Pulse Oximetry (%) 100 08/14/16 09:00 Labs: CBC, BMP 08/13/16 06:16 08/13/16 06:16 Discharge Summary Reason For Visit: HYPOTENSION Hospital Course: see 08/14 progress note pt 08/14/16 - Instructions Referrals: Davin Dee MD [Primary Care Provider] - Disposition: - Home Medications Comprehensive Discharge Medication List: Ambulatory Orders Acetaminophen [Tylenol] 325 mg PO DAILY 07/24/16 Albuterol 2.5/Ipratropium 0.5 [Duoneb -] 1 neb IH QID 07/24/16 Amino Acid/Protein/Vit C/Zinc [Prosource Luis Protein Liquid] 946 ml PO DAILY 01/30 Ascorbic Acid [Vitamin C -] 500 mg PO DAILY 07/24/16 Diphenhydramine HCl [Benadryl -] 25 mg PO Q6H 07/24/16 Folic Acid 1 mg PO DAILY 07/24/16 Heparin - 5,000 unit SCJ TID 07/24/16 Insulin Lispro [Humalog Kwikpen] 200 unit SQ ASDIR 07/24/16 Levothyroxine [Synthroid -] 25 mcg PO DAILY 07/24/16 Metoprolol Succinate [Toprol Xl -] 25 mg PO DAILY 07/24/16 Multivitamin [Poly-Vitamin] 1 each PO DAILY 07/24/16 Nystatin Cream [Mycostatin] 1 applic TP BID 07/24/16 Tamsulosin HCl [Flomax] 0.4 mg PO DAILY 07/24/16 Vitamin B Comp W-C [Nephro-Mor -] 1 tablet PO DAILY 07/24/16 Zinc Sulfate 220 mg PO DAILY 07/24/16
== END 2016-08-14 20:50 | disposition expired | DRG 853 ==
LOC: JER 11:29 → JERBED 12:45 → J4W 17:48 → JICU 07-29 10:16
PROVIDERS: ADMIT Internal Medicine; ATTEND Internal Medicine
PROC: 05H533Z Insertion of Infusion Device into Right Subclavian Vein, Percutaneous Approach (ICD-10-PCS; 2016-08-03)
PROC: 30233R1 Transfusion of Nonautologous Platelets into Peripheral Vein, Percutaneous Approach (ICD-10-PCS; 2016-08-05)
PROC: 0KBW0ZZ Excision of Left Foot Muscle, Open Approach (ICD-10-PCS; principal; 2016-08-07)
PROC: 0KBV0ZZ Excision of Right Foot Muscle, Open Approach (ICD-10-PCS; 2016-08-07)
PROC: 0KBP0ZZ Excision of Left Hip Muscle, Open Approach (ICD-10-PCS; 2016-08-07)
PROC: 30233N1 Transfusion of Nonautologous Red Blood Cells into Peripheral Vein, Percutaneous Approach (ICD-10-PCS; 2016-08-11)
PROC: 5A1945Z Respiratory Ventilation, 24-96 Consecutive Hours (ICD-10-PCS; 2016-08-12)
PROC: 0BH17EZ Insertion of Endotracheal Airway into Trachea, Via Natural or Artificial Opening (ICD-10-PCS; 2016-08-12)
DX: A41.9 Sepsis, unspecified organism (principal); J96.21 Acute and chronic respiratory failure with hypoxia; J96.22 Acute and chronic respiratory failure with hypercapnia; I50.23 Acute on chronic systolic (congestive) heart failure; N18.6 End stage renal disease; R53.2 Functional quadriplegia; L89.313 Pressure ulcer of right buttock, stage 3; R65.21 Severe sepsis with septic shock; I13.2 Hypertensive heart and chronic kidney disease with heart failure and with stage 5 chronic kidney disease, or end stage renal disease; E87.2 Acidosis; D68.9 Coagulation defect, unspecified; L02.212 Cutaneous abscess of back [any part, except buttock and flank]; E87.1 Hypo-osmolality and hyponatremia; N17.9 Acute kidney failure, unspecified; E11.22 Type 2 diabetes mellitus with diabetic chronic kidney disease; D69.6 Thrombocytopenia, unspecified; I48.91 Unspecified atrial fibrillation; I25.10 Atherosclerotic heart disease of native coronary artery without angina pectoris; E03.9 Hypothyroidism, unspecified; J44.9 Chronic obstructive pulmonary disease, unspecified; E78.5 Hyperlipidemia, unspecified; L89.891 Pressure ulcer of other site, stage 1; D63.1 Anemia in chronic kidney disease; E66.9 Obesity, unspecified; Z68.29 Body mass index [BMI] 29.0-29.9, adult; D72.829 Elevated white blood cell count, unspecified; L89.150 Pressure ulcer of sacral region, unstageable; L89.620 Pressure ulcer of left heel, unstageable; L89.610 Pressure ulcer of right heel, unstageable; Z79.4 Long term (current) use of insulin
CPT/HCPCS: 31500; 36415; 36430; 36600; 71010-TC; 80048; 80053; 82375; 82550; 82803; 83050; 83605; 83735; 84100; 84484; 85025; 85027; 85384; 85610; 85730; 86022; 86850; 86900; 86901; 86922; 87040; 93005; 93010; 94002; 94640; 94660; 97162; 99283-25; G0480; J0885; J1250; J1644; P9034; P9038; P9047; P9058